=== PATIENT | male | born 1960 | race Caucasian/White ===

== ENCOUNTER 2017-04-09 18:08 | Inpatient (IN) | payer BC ==
[~2017-04-09] VITALS: Ht 180.3 cm; Wt 156.2 kg
[~2017-04-09 18:08] MED LIST: ATORVASTATIN CA80 MG PO; BISAC-EVAC10 MG PR; CARVEDILOL12.5 MG PO; CARVEDILOL25 MG PO; COUMADIN5 MG PO; HYDRALAZINE HCL50 MG PO; ISOSORBIDE MONO30 MG PO; LIPITOR10 MG PO; MAG-OXIDE400 MG PO; MAPAP325 MG PO; MILK OF MA400 MG/5 M PO; NYSTOP60 GM TOP; POTASSIUM CHLO20 ME1 PO; SENNA8.6 MG PO; SPIRONOLACTONE25 MG PO; TORSEMIDE10 MG PO; TORSEMIDE20 MG PO; WARFARIN SODIUM10 MG PO; XARELTO10 MG PO
--- OUTSIDE RECORDS SUMMARY | 2017-04-09 19:32 | XMS ---
Demographics + + + | Address | [address] | | | [address] | | | [place] [address] | + + + | Preferred Language | Unknown | + + + | Marital Status | Unknown | + + + | Yarsanism Affiliation | Unknown | + + + | Race | Unknown | + + + | Ethnic Group | Unknown | + + + Author + + + | Author | [facility] | + + + | Organization | [facility] | + + + | Address | [address] | | | [place] [address] | + + + | Phone | | + + + Care Team Providers + + + + | Care Fashion Consultant Selling Name | Role | Phone | + + + + Unavailable | Unavailable | + + + + PROBLEMS +---------+ + + +--------+ + + | Type | Condition | ICD9-CM | [id number] | Onset | Condition | SNOMED | | | | Code | Code | Dates | Status | Code | +---------+ + + +--------+ + + | Problem | Essential | | I10 | | Active | [id number] | | | (primary) | | | | | | | | hypertensi | | | | | | | | on | | | | | | +---------+ + + +--------+ + + | Problem | Paroxysmal | | I48.0 | | Active | 418352241 | | | atrial | | | | | | | | fibrillati | | | | | | | | on | | | | | | +---------+ + + +--------+ + + | Problem | Chronic | | N18.3 | | Active | [id number] | | | kidney | | | | | | | | disease, | | | | | | | | stage 3 | | | | | | +---------+ + + +--------+ + + | Problem | Coronary | | I25.10 | | Active | 33161979 | | | artery | | | | | | | | disease | | | | | | +---------+ + + +--------+ + + | Problem | Umbilical | K42.9 | | | Active | 989895141 | | | hernia | | | | | | +---------+ + + +--------+ + + | Problem | Anemia | | D64.9 | | Active | 723616009 | +---------+ + + +--------+ + + | Problem | Chronic | | I50.22 | | Active | 267248771 | | | systolic | | | | | | | | (congestiv | | | | | | | | e) heart | | | | | | | | failure | | | | | | +---------+ + + +--------+ + + | Problem | Vitamin D | | E55.9 | | Active | 81180260 | | | deficiency | | | | | | | | , | | | | | | | | unspecifie | | | | | | | | d | | | | | | +---------+ + + +--------+ + + | 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 | | | Active | 47445430 | | | l | | | | | | | | hypothyroi | | | | | | | | dism | | | | | | +---------+ + + +--------+ + + | Problem | Metabolic | | E88.81 | | Active | 653563437 | | | syndrome | | | | | | +---------+ + + +--------+ + + | Problem | Hyperlipid | | E78.5 | | Active | 70139563 | | | emia, | | | | | | | | unspecifie | | | | | | | | d | | | | | | +---------+ + + +--------+ + + | Problem | Cor | | I27.81 | | Active | 04268629 | | | pulmonale | | | | | | | | (chronic) | | | | | | +---------+ + + +--------+ + + | Problem | Morbid | Z68.41 | | | Active | 365983913 | | | obesity | | | | | | | | with BMI | | | | | | | | of | | | | | | | | 40.0-44.9, | | | | | | | | adult | | | | | | +---------+ + + +--------+ + + | Problem | Obstructiv | G47.33 | | | Active | 77261918 | | | e sleep | | | | | | | | apnea | | | | | | +---------+ + + +--------+ + + ALLERGIES Unknown Allergies SOCIAL HISTORY No smoking Hx information available PLAN OF CARE VITAL SIGNS MEDICATIONS + + + + + + + +--------+ | Medicati | Instruct | Dosage | Frequenc | Start | End Date | Duration | Status | | on | ions | | y | Date | | | | + + + + + + + +--------+ | Atorvast | Orally | 1 tablet | | | | | Active | | atin | Once a | | | | | | | | Calcium | day in | | | | | | | | 10 mg | the | | | | | | | | | evening | | | | | | | | | with | | | | | | | | | dinner | | | | | | | | | for | | | | | | | | | choleste | | | | | | | | | rol | | | | | | | + + + + + + + +--------+ | Magnesiu | Orally | 1 tablet | | Jun, | | | Active | | m Oxide | Once a | | | 2015 | | | | | 400 MG | day - | | | | | | | | | MAGNESIU | | | | | | | | | M | | | | | | | | | SUPPLEME | | | | | | | | | NT | | | | | | | + + + + + + + +--------+ | Warfarin | Orally | per | | Feb, | | | Active | | Sodium | 10 mg | coumadin | | 2015 | | | | | 10 mg | Sun, | clinic | | | | | | | | Saturday, | | | | | | | | | | | | | | | | | | | | | | | | | | | , | | | | | | | | | Saturday | | | | | | | | | . 15mg | | | | | | | | | Saturday, | | | | | | | | | | | | | | | | | | y, | | | | | | | | | Saturday | | | | | | | + + + + + + + +--------+ | Carvedil | Orally | 2 tab | | | | | Active | | ol 25 MG | Twice a | | | | | | | | | day with | | | | | | | | | for the | | | | | | | | | heart | | | | | | | | | and high | | | | | | | | | blood | | | | | | | | | pressure | | | | | | | + + + + + + + +--------+ | Isosorbi | Orally | 1 tablet | | Mar, | | | Active | | de | Once a | | | 2016 | | | | | Mononitr | day in | | | | | | | | ate ER | the | | | | | | | | 60 MG | Evening | | | | | | | | | for high | | | | | | | | | blood | | | | | | | | | pressure | | | | | | | + + + + + + + +--------+ | Vitamin | Orally | 1 tablet | 24h | | | | Active | | B-12 | Once a | | | | | | | | 1000 MCG | day | | | | | | | + + + + + + + +--------+ | Vitamin | | | | | | | Active | | D3 Super | | | | | | | | | | | | | | | | | | Strength | | | | | | | | | 2000 | | | | | | | | | UNIT | | | | | | | | + + + + + + + +--------+ | Torsemid | Orally | 1 tablet | | | | | Active | | e 20 mg | Once a | | | | | | | | | day in | | | | | | | | | the | | | | | | | | | morning | | | | | | | | | - water | | | | | | | | | pill for | | | | | | | | | heart | | | | | | | | | failure | | | | | | | + + + + + + + +--------+ | Ferrous | Orally | 1 tablet | | Mar, | | | Active | | Sulfate | Once a | | | 2015 | | | | | 324 (65 | day, | | | | | | | | Fe) MG | iron | | | | | | | | | suppleme | | | | | | | | | nt | | | | | | | + + + + + + + +--------+ | Spironol | Orally | 1 tablet | | Aug, | | | Active | | actone | Once a | | | 2016 | | | | | 25 MG | day - | | | | | | | | | HIGH | | | | | | | | | BLOOD | | | | | | | | | PRESSURE | | | | | | | + + + + + + + +--------+ | HydrALAZ | Orally | half a | | Mar, | | | Active | | INE HCl | Three | tablet | | 2015 | | | | | 50 mg | times a | | | | | | | | | day for | | | | | | | | | high | | | | | | | | | blood | | | | | | | | | pressure | | | | | | | | | s | | | | | | | + + + + + + + +--------+ RESULTS No Results PROCEDURES No Known procedures IMMUNIZATIONS No Known Immunizations"
--- OUTSIDE RECORDS SUMMARY | 2017-04-09 19:33 | XMS ---
Demographics + + + | Address | [address] | | | [address] | | | [place] [address] | + + + | Preferred Language | Unknown | + + + | Marital Status | Unknown | + + + | Rastafari Affiliation | Unknown | + + + | Race | Unknown | + + + | Ethnic Group | Unknown | + + + Author + + + | Author | [facility] | + + + | Organization | [facility] | + + + | Address | [address] | | | [place] [address] | + + + | Phone | | + + + Care Team Providers + + + + | Care Lace Roller Name | Role | Phone | + + + + Unavailable | Unavailable | + + + + PROBLEMS +---------+ + + +--------+ + + | Type | Condition | ICD9-CM | [id number] | Onset | Condition | SNOMED | | | | Code | Code | Dates | Status | Code | +---------+ + + +--------+ + + | Problem | Essential | | I10 | | Active | 11903725 | | | (primary) | | | | | | | | hypertensi | | | | | | | | on | | | | | | +---------+ + + +--------+ + + | Problem | Paroxysmal | | I48.0 | | Active | 726654243 | | | atrial | | | | | | | | fibrillati | | | | | | | | on | | | | | | +---------+ + + +--------+ + + | Problem | Chronic | | N18.3 | | Active | 749167697 | | | kidney | | | | | | | | disease, | | | | | | | | stage 3 | | | | | | +---------+ + + +--------+ + + | Problem | Coronary | | I25.10 | | Active | 72195279 | | | artery | | | | | | | | disease | | | | | | +---------+ + + +--------+ + + | Problem | Umbilical | K42.9 | | | Active | 141301806 | | | hernia | | | | | | +---------+ + + +--------+ + + | Problem | Anemia | | D64.9 | | Active | 606735556 | +---------+ + + +--------+ + + | Problem | Chronic | | I50.22 | | Active | 668525332 | | | systolic | | | | | | | | (congestiv | | | | | | | | e) heart | | | | | | | | failure | | | | | | +---------+ + + +--------+ + + | Problem | Vitamin D | | E55.9 | | Active | 05083665 | | | deficiency | | | | | | | | , | | | | | | | | unspecifie | | | | | | | | d | | | | | | +---------+ + + +--------+ + + | 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 | | | Active | 44452097 | | | l | | | | | | | | hypothyroi | | | | | | | | dism | | | | | | +---------+ + + +--------+ + + | Problem | Metabolic | | E88.81 | | Active | 321923927 | | | syndrome | | | | | | +---------+ + + +--------+ + + | Problem | Hyperlipid | | E78.5 | | Active | 84067454 | | | emia, | | | | | | | | unspecifie | | | | | | | | d | | | | | | +---------+ + + +--------+ + + | Problem | Cor | | I27.81 | | Active | 18963444 | | | pulmonale | | | | | | | | (chronic) | | | | | | +---------+ + + +--------+ + + | Problem | Morbid | Z68.41 | | | Active | 539220984 | | | obesity | | | [...] | G47.33 | | | Active | 61580264 | | | e sleep | | | | | | | | apnea | | | | | | +---------+ + + +--------+ + + ALLERGIES + + + + +---------+ | Substance | Reaction | Event Type | Date | Status | + + + + +---------+ | N.K.D.A. | Unknown | Non Drug | Feb, | Unknown | | | | Allergy | | | + + + + +---------+ SOCIAL HISTORY No smoking Hx information available PLAN OF CARE + +---------+ | Activity | Details | + +---------+ +---+ | | +---+ + + + | Follow Up | 2 Weeks Reason:null | + + + VITAL SIGNS + + + + | Height | 71 in | 2017-03-01 | + + + + | Weight | 356.4 lbs | 2017-03-01 | + + + + | BMI | 49.70 kg/m2 | 2017-03-01 | + + + + | Temperature | 98.8 degrees Fahrenheit | 2017-03-01 | + + + + | Heart Rate | 60 /min | 2017-03-01 | + + + + | Blood pressure systolic | 112 mm Hg | 2017-03-01 | + + + + | Blood pressure diastolic | 31 mm Hg | 2017-03-01 | + + + + MEDICATIONS + + + + + + [...] | | | | | | | 80 MG | the | | | | | [...] | Orally | half a | | 24 Aug, | | | Active | | INE HCl | Three | tablet | | 2016 | | | | | 50 mg [...] + + + +--------+ | Isosorbi | | take 1 | | | | 90 | Active | | de | | tablet | | | | | | | Mononitr | | by mouth | | | | | | | ate ER | | every | | | | | | | 60 MG | | morning | | | | | | + + + + + + + +--------+ | Ferrous | Orally | 1 tablet | | 24 Aug, | | | Active | | Sulfate | Once a | | | 2016 | | | | | 324 (65 | day, | | | | | | | | Fe) MG | iron | | | | | | | | | suppleme | | | | | | | | | nt | | | | | | | + + + + + + + +--------+ | Aspirin | Oral | 1 tab | 24h | | | | Active | | 81mg | once | | | | | | | | | daily | | | | | | | [...] + + + +--------+ | Magnesiu | | take 1 | | | | 90 | Active | | m Oxide | | tablet | | | | | | | 400 MG | | by mouth | | | | | | | | | once | | | | | | | | | daily | | | | | | + + + + + + + +--------+ RESULTS No Results PROCEDURES No Known procedures IMMUNIZATIONS No Known Immunizations"
--- OUTSIDE RECORDS SUMMARY | 2017-04-09 19:33 | XMS ---
Demographics + + + | Address | [address] | | | [address] | | | [place] [address] | + + + | Preferred Language | Unknown | + + + | Marital Status | Unknown | + + + | Christianity Affiliation | Unknown | + + + | Race | Unknown | + + + | Ethnic Group | Unknown | + + + Author + + + | Author | [facility] | + + + | Organization | [facility] | + + + | Address | [address] | | | [place] [address] | + + + | Phone | | + + + Care Team Providers + + + + | Care Echocardiographer Name | Role | Phone | + + + + Unavailable | Unavailable | + + + + PROBLEMS + + + + + + + + | Type | Condition | ICD9-CM | [id number] | Onset | Condition | SNOMED | | | | Code | Code | Dates | Status | Code | + + + + + + + + | Problem | Essential | | I10 | | Active | 73267660 | | | (primary) | | | | | | | | hypertensi | | | | | | | | on | | | | | | + + + + + + + + | Problem | Paroxysmal | | I48.0 | | Active | 750817565 | | | atrial | | | | | | | | fibrillati | | | | | | | | on | | | | | | + + + + + + + + | Problem | Chronic | | N18.3 | | Active | 086362981 | | | kidney | | | | | | | | disease, | | | | | | | | stage 3 | | | | | | + + + + + + + + | Problem | Coronary | | I25.10 | | Active | 92182162 | | | artery | | | | | | | | disease | | | | | | + + + + + + + + | Problem | Umbilical | K42.9 | | | Active | 655836621 | | | hernia | | | | | | + + + + + + + + | Problem | Anemia | | D64.9 | | Active | 239886445 | + + + + + + + + | Problem | Chronic | | I50.22 | | Active | 259854179 | | | systolic | | | | | | | | (congestiv | | | | | | | | e) heart | | | | | | | | failure | | | | | | + + + + + + + + | Problem | Vitamin D | | E55.9 | | Active | 59605716 | | | deficiency | | | | | | | | , | | | | | | | | unspecifie | | | | | | | | d | | | | | | + + + + + + + + | 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 | | | Active | 03756923 | | | l | | | | | | | | hypothyroi | | | | | | | | dism | | | | | | + + + + + + + + | Problem | Metabolic | | E88.81 | | Active | 469500485 | | | syndrome | | | | | | + + + + + + + + | Problem | Hyperlipid | | E78.5 | | Active | 19295488 | | | emia, | | | | | | | | unspecifie | | | | | | | | d | | | | | | + + + + + + + + | Assessment | Coronary | | I25.10 | 03 January, | Active | 77056890 | | | artery | | | 2017 | | | | | disease | | | | | | + + + + + + + + | Problem | Cor | | I27.81 | | Active | 70341036 | | | pulmonale | | | | | | | | (chronic) | | | | | | + + + + + + + + | Problem | Morbid | Z68.41 | | | Active | 173501237 | | | obesity | | | | | | | | with BMI | | | | | | | | of | | | | | | | | 40.0-44.9, | | | | | | | | adult | | | | | | + + + + + + + + | Problem | Obstructiv | G47.33 | | | Active | 47085017 | | | e sleep | | | | | | | | apnea | | | | | | + + + + + + + + ALLERGIES + + + + +---------+ | Substance | Reaction | Event Type | Date | Status | + + + + +---------+ | N.K.KathiA. | Unknown | Non Drug | December, | Unknown | | | | Allergy | | | + + + + +---------+ SOCIAL HISTORY No smoking Hx information available PLAN OF CARE VITAL SIGNS + + + + | Height | 71 in | 2017-01-03 | + + + + | Weight | 348.6 lbs | 2017-01-03 | + + + + | BMI | 48.61 kg/m2 | 2017-01-03 | + + + + | Temperature | 98.3 degrees Fahrenheit | 2017-01-03 | + + + + | Heart Rate | 58 /min | 2017-01-03 | + + + + | Blood pressure systolic | 139 mm Hg | 2017-01-03 | + + + + | Blood pressure diastolic | 59 mm Hg | 2017-01-03 | + + + + MEDICATIONS + [...] | | | | | | and | | | | | | | [...] de | Once a | | | 2015 | | | | | Mononitr | [...] Orally | 1 tablet | | 24 Mar, | | | Active | | [...] | Orally | 1 tablet | | 08 Aug, | | | Active | | [...] + + +--------+ RESULTS No Results PROCEDURES + + + + + | Procedure | Date Ordered | Related Diagnosis | Body Site | + + + + + | Est Level III | January 03, 2017 | | | | Intermediate | | | | + + + + + IMMUNIZATIONS No Known Immunizations"
--- OUTSIDE RECORDS SUMMARY | 2017-04-09 19:33 | XMS ---
Demographics + + + | Address | [address] | | | [address] | | | [place] [address] | + + + | Preferred Language | Unknown | + + + | Marital Status | Unknown | + + + | Tenriism Affiliation | Unknown | + + + | Race | Unknown | + + + | Ethnic Group | Unknown | + + + Author + + + | Author | [facility] | + + + | Organization | [facility] | + + + | Address | [address] | | | [place] [address] | + + + | Phone | | + + + Care Team Providers + + + + | Care Manufacturing Leader Name | Role | Phone | + + + + Unavailable | Unavailable | + + + + PROBLEMS + + + + + + + + | Type | Condition | ICD9-CM | [id number] | Onset | Condition | SNOMED | | | | Code | Code | Dates | Status | Code | + + + + + + + + | Problem | Obstructiv | G47.33 | | | Active | 53302695 | | | e sleep | | | | | | | | apnea | | | | | | + + + + + + + + | Problem | Chronic | | N18.3 | | Active | 598888620 | | | kidney | | | | | | | | disease, | | | | | | | | stage 3 | | | | | | + + + + + + + + | Problem | Essential | | I10 | | Active | 43867881 | | | (primary) | | | | | | | | hypertensi | | | | | | | | on | | | | | | + + + + + + + + | Problem | Umbilical | K42.9 | | | Active | 328956034 | | | hernia | | | | | | + + + + + + + + | Problem | Vitamin D | | E55.9 | | Active | 12023144 | | | deficiency | | | | | | | | , | | | | | | | | unspecifie | | | | | | | | d | | | | | | + + + + + + + + | Problem | Chronic | | I50.22 | | Active | 186506542 | | | systolic | | | | | | | | (congestiv | | | | | | | | e) heart | | | | | | | | failure | | | | | | + + + + + + + + | Problem | Paroxysmal | | I48.0 | | Active | 090485518 | | | atrial | | | | | | | | fibrillati | | | | | | | | on | | | | | | + + + + + + + + | 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 | | | Active | 34252277 | | | l | | | | | | | | hypothyroi | | | | | | | | dism | | | | | | + + + + + + + + | Problem | Anemia | | D64.9 | | Active | 607051660 | + + + + + + + + | Problem | Morbid | Z68.41 | | | Active | 952924065 | | | obesity | | | [...] | | E88.81 | | Active | 568321081 | | | syndrome | | | | | | + + + + + + + + | Problem | Hyperlipid | | E78.5 | | Active | 90324751 | | | emia, | | | | | | | | unspecifie | | | | | | | | d | | | | | | + + + + + + + + | Assessment | Essential | | I10 | 04 December, | Active | 42542736 | | | (primary) | | | 2017 | | | | | hypertensi | | | | | | | | on | | | | | | + + + + + + + + | Problem | Cor | | I27.81 | | Active | 49781681 | | | pulmonale | | | | | | | | (chronic) | | | | | | + + + + + + + + ALLERGIES + + + + +---------+ | Substance | Reaction | Event Type | Date | Status | + + + + +---------+ | Chelsea | Unknown | Non Drug | December, | Unknown | | | | Allergy | | | + + + + +---------+ SOCIAL HISTORY No smoking Hx information available PLAN OF CARE VITAL SIGNS + + + + | Height | 71 in | 2016-12-13 | + + + + | Weight | 347.0 lbs | 2016-12-13 | + + + + | BMI | 48.39 kg/m2 | 2016-12-13 | + + + + | Temperature | 97.8 degrees Fahrenheit | 2016-12-13 | + + + + | Heart Rate | 58 /min | 2016-12-13 | + + + + | Blood pressure systolic | 181 mm Hg | 2016-12-13 | + + + + | Blood pressure diastolic | 81 mm Hg | 2016-12-13 | + + + + MEDICATIONS + [...] | Orally | 1 tablet | | 21 Nov, | | | Active | | m Oxide | Once a | | | 2016 | | | | | 400 MG [...] + +--------+ | Torsemid | Orally | half a | | | | | Active | | e 20 mg | Once a | tablet | | | | | [...] + + | Est Level III | December 13, 2016 | | | | Intermediate | | | | + + + + + IMMUNIZATIONS No Known Immunizations"
--- OUTSIDE RECORDS SUMMARY | 2017-04-09 19:33 | XMS ---
Demographics + + + | Address | [address] | | | [address] | | | [place] [address] | + + + | Preferred Language | Unknown | + + + | Marital Status | Unknown | + + + | Amish Affiliation | Unknown | + + + | Race | Unknown | + + + | Ethnic Group | Unknown | + + + Author + + + | Author | [facility] | + + + | Organization | [facility] | + + + | Address | [address] | | | [place] [address] | + + + | Phone | | + + + Care Team Providers + + + + | Care Aircraft Launch And Recovery Technician Name | Role | Phone | + + + + Unavailable | Unavailable | + + + + PROBLEMS +---------+ + + +--------+ + + | Type | Condition | ICD9-CM | [id number] | Onset | Condition | SNOMED | | | | Code | Code | Dates | Status | Code | +---------+ + + +--------+ + + | Problem | Essential | | I10 | | Active | 30124379 | | | (primary) | | | | | | | | hypertensi | | | | | | | | on | | | | | | +---------+ + + +--------+ + + | Problem | Paroxysmal | | I48.0 | | Active | 906738681 | | | atrial | | | | | | | | fibrillati | | | | | | | | on | | | | | | +---------+ + + +--------+ + + | Problem | Chronic | | N18.3 | | Active | 976904186 | | | kidney | | | | | | | | disease, | | | | | | | | stage 3 | | | | | | +---------+ + + +--------+ + + | Problem | Coronary | | I25.10 | | Active | 24371518 | | | artery | | | | | | | | disease | | | | | | +---------+ + + +--------+ + + | Problem | Umbilical | K42.9 | | | Active | 840651839 | | | hernia | | | | | | +---------+ + + +--------+ + + | Problem | Anemia | | D64.9 | | Active | 940250707 | +---------+ + + +--------+ + + | Problem | Chronic | | I50.22 | | Active | 924839268 | | | systolic | | | | | | | | (congestiv | | | | | | | | e) heart | | | | | | | | failure | | | | | | +---------+ + + +--------+ + + | Problem | Vitamin D | | E55.9 | | Active | 90172022 | | | deficiency | | | | | | | | , | | | | | | | | unspecifie | | | | | | | | d | | | | | | +---------+ + + +--------+ + + | 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 | | | Active | 33811082 | | | l | | | | | | | | hypothyroi | | | | | | | | dism | | | | | | +---------+ + + +--------+ + + | Problem | Metabolic | | E88.81 | | Active | 049726719 | | | syndrome | | | | | | +---------+ + + +--------+ + + | Problem | Hyperlipid | | E78.5 | | Active | 81754291 | | | emia, | | | | | | | | unspecifie | | | | | | | | d | | | | | | +---------+ + + +--------+ + + | Problem | Cor | | I27.81 | | Active | 15498602 | | | pulmonale | | | | | | | | (chronic) | | | | | | +---------+ + + +--------+ + + | Problem | Morbid | Z68.41 | | | Active | 711312784 | | | obesity | | | [...] | G47.33 | | | Active | 92771748 | | | e sleep | | | | | | | | apnea | | | | | | +---------+ + + +--------+ + + ALLERGIES Unknown Allergies SOCIAL HISTORY No smoking Hx information available PLAN OF CARE VITAL SIGNS MEDICATIONS Unknown Medications RESULTS No Results PROCEDURES No Known procedures IMMUNIZATIONS No Known Immunizations"
--- OUTSIDE RECORDS SUMMARY | 2017-04-09 19:33 | XMS ---
Demographics + + + | Address | [address] | | | [address] | | | [place] [address] | + + + | Preferred Language | Unknown | + + + | Marital Status | Unknown | + + + | Holiness Affiliation | Unknown | + + + | Race | Unknown | + + + | Ethnic Group | Unknown | + + + Author + + + | Author | [facility] | + + + | Organization | [facility] | + + + | Address | [address] | | | [place] [address] | + + + | Phone | | + + + Care Team Providers + + + + | Care Slot Attendant Name | Role | Phone | + + + + Unavailable | Unavailable | + + + + PROBLEMS +---------+ + + +--------+ + + | Type | Condition | ICD9-CM | [id number] | Onset | Condition | SNOMED | | | | Code | Code | Dates | Status | Code | +---------+ + + +--------+ + + | Problem | Essential | | I10 | | Active | 20262575 | | | (primary) | | | | | | | | hypertensi | | | | | | | | on | | | | | | +---------+ + + +--------+ + + | Problem | Paroxysmal | | I48.0 | | Active | [id number] | | | atrial | | | | | | | | fibrillati | | | | | | | | on | | | | | | +---------+ + + +--------+ + + | Problem | Chronic | | N18.3 | | Active | [id number] | | | kidney | | | | | | | | disease, | | | | | | | | stage 3 | | | | | | +---------+ + + +--------+ + + | Problem | Coronary | | I25.10 | | Active | [id number] | | | artery | | | | | | | | disease | | | | | | +---------+ + + +--------+ + + | Problem | Umbilical | K42.9 | | | Active | [id number] | | | hernia | | | | | | +---------+ + + +--------+ + + | Problem | Anemia | | D64.9 | | Active | [id number] | +---------+ + + +--------+ + + | Problem | Chronic | | I50.22 | | Active | [id number] | | | systolic | | | | | | | | (congestiv | | | | | | | | e) heart | | | | | | | | failure | | | | | | +---------+ + + +--------+ + + | Problem | Vitamin D | | E55.9 | | Active | [id number] | | | deficiency | | | | | | | | , | | | | | | | | unspecifie | | | | | | | | d | | | | | | +---------+ + + +--------+ + + | 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 | | | Active | [id number] | | | l | | | | | | | | hypothyroi | | | | | | | | dism | | | | | | +---------+ + + +--------+ + + | Problem | Metabolic | | E88.81 | | Active | [id number] | | | syndrome | | | | | | +---------+ + + +--------+ + + | Problem | Hyperlipid | | E78.5 | | Active | [id number] | | | emia, | | | | | | | | unspecifie | | | | | | | | d | | | | | | +---------+ + + +--------+ + + | Problem | Cor | | I27.81 | | Active | [id number] | | | pulmonale | | | | | | | | (chronic) | | | | | | +---------+ + + +--------+ + + | Problem | Morbid | Z68.41 | | | Active | [id number] | | | obesity | | | [...] | G47.33 | | | Active | [id number] | | | e sleep | | [...]
--- OUTSIDE RECORDS SUMMARY | 2017-04-09 19:33 | XMS ---
Demographics + + + | Address | [address] | | | [address] | | | [place] [address] | + + + | Preferred Language | Unknown | + + + | Marital Status | Unknown | + + + | Samaritan Affiliation | Unknown | + + + | Race | Unknown | + + + | Ethnic Group | Unknown | + + + Author + + + | Author | [facility] | + + + | Organization | [facility] | + + + | Address | [address] | | | [place] [address] | + + + | Phone | | + + + Care Team Providers + + + + | Care Recharger Name | Role | Phone | + + + + Unavailable | Unavailable | + + + + PROBLEMS +---------+ + + +--------+ + + | Type | Condition | ICD9-CM | [id number] | Onset | Condition | SNOMED | | | | Code | Code | Dates | Status | Code | +---------+ + + +--------+ + + | Problem | Essential | | I10 | | Active | [id number] | | | (primary) | | | | | | | | hypertensi | | | | | | | | on | | | | | | +---------+ + + +--------+ + + | Problem | Paroxysmal | | I48.0 | | Active | 928659263 | | | atrial | | | | | | | | fibrillati | | | | | | | | on | | | | | | +---------+ + + +--------+ + + | Problem | Chronic | | N18.3 | | Active | 800418339 | | | kidney | | | | | | | | disease, | | | | | | | | stage 3 | | | | | | +---------+ + + +--------+ + + | Problem | Coronary | | I25.10 | | Active | 65486055 | | | artery | | | | | | | | disease | | | | | | +---------+ + + +--------+ + + | Problem | Umbilical | K42.9 | | | Active | 728273184 | | | hernia | | | | | | +---------+ + + +--------+ + + | Problem | Anemia | | D64.9 | | Active | 846228228 | +---------+ + + +--------+ + + | Problem | Chronic | | I50.22 | | Active | 910101106 | | | systolic | | | | | | | | (congestiv | | | | | | | | e) heart | | | | | | | | failure | | | | | | +---------+ + + +--------+ + + | Problem | Vitamin D | | E55.9 | | Active | 85063019 | | | deficiency | | | | | | | | , | | | | | | | | unspecifie | | | | | | | | d | | | | | | +---------+ + + +--------+ + + | 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 | | | Active | 28322786 | | | l | | | | | | | | hypothyroi | | | | | | | | dism | | | | | | +---------+ + + +--------+ + + | Problem | Metabolic | | E88.81 | | Active | 857720881 | | | syndrome | | | | | | +---------+ + + +--------+ + + | Problem | Hyperlipid | | E78.5 | | Active | 56052569 | | | emia, | | | | | | | | unspecifie | | | | | | | | d | | | | | | +---------+ + + +--------+ + + | Problem | Cor | | I27.81 | | Active | 14484560 | | | pulmonale | | | | | | | | (chronic) | | | | | | +---------+ + + +--------+ + + | Problem | Morbid | Z68.41 | | | Active | 113104350 | | | obesity | | | [...] | G47.33 | | | Active | 92227765 | | | e sleep | | | | | | | | apnea | | | | | | +---------+ + + +--------+ + + ALLERGIES Unknown Allergies SOCIAL HISTORY No smoking Hx information available PLAN OF CARE VITAL SIGNS MEDICATIONS Unknown Medications RESULTS No Results PROCEDURES No Known procedures IMMUNIZATIONS No Known Immunizations"
--- OUTSIDE RECORDS SUMMARY | 2017-04-09 19:33 | XMS ---
Demographics + + + | Address | [address] | | | [address] | | | [place] [address] | + + + | Preferred Language | Unknown | + + + | Marital Status | Unknown | + + + | Yazidism Affiliation | Unknown | + + + | Race | Unknown | + + + | Ethnic Group | Unknown | + + + Author + + + | Author | [facility] | + + + | Organization | [facility] | + + + | Address | [address] | | | [place] [address] | + + + | Phone | | + + + Care Team Providers + + + + | Care Hot Mill Roller Name | Role | Phone | + + + + Unavailable | Unavailable | + + + + PROBLEMS +---------+ + + +--------+ + + | Type | Condition | ICD9-CM | [id number] | Onset | Condition | SNOMED | | | | Code | Code | Dates | Status | Code | +---------+ + + +--------+ + + | Problem | Essential | | I10 | | Active | 69942365 | | | (primary) | | | | | | | | hypertensi | | | | | | | | on | | | | | | +---------+ + + +--------+ + + | Problem | Paroxysmal | | I48.0 | | Active | 749313188 | | | atrial | | | | | | | | fibrillati | | | | | | | | on | | | | | | +---------+ + + +--------+ + + | Problem | Chronic | | N18.3 | | Active | 654092134 | | | kidney | | | | | | | | disease, | | | | | | | | stage 3 | | | | | | +---------+ + + +--------+ + + | Problem | Coronary | | I25.10 | | Active | 11878159 | | | artery | | | | | | | | disease | | | | | | +---------+ + + +--------+ + + | Problem | Umbilical | K42.9 | | | Active | 522308065 | | | hernia | | | | | | +---------+ + + +--------+ + + | Problem | Anemia | | D64.9 | | Active | 609882745 | +---------+ + + +--------+ + + | Problem | Chronic | | I50.22 | | Active | 201637305 | | | systolic | | | | | | | | (congestiv | | | | | | | | e) heart | | | | | | | | failure | | | | | | +---------+ + + +--------+ + + | Problem | Vitamin D | | E55.9 | | Active | 29985564 | | | deficiency | | | | | | | | , | | | | | | | | unspecifie | | | | | | | | d | | | | | | +---------+ + + +--------+ + + | 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 | | | Active | 33300682 | | | l | | | | | | | | hypothyroi | | | | | | | | dism | | | | | | +---------+ + + +--------+ + + | Problem | Metabolic | | E88.81 | | Active | 946394205 | | | syndrome | | | | | | +---------+ + + +--------+ + + | Problem | Hyperlipid | | E78.5 | | Active | 16904438 | | | emia, | | | | | | | | unspecifie | | | | | | | | d | | | | | | +---------+ + + +--------+ + + | Problem | Cor | | I27.81 | | Active | 43395744 | | | pulmonale | | | | | | | | (chronic) | | | | | | +---------+ + + +--------+ + + | Problem | Morbid | Z68.41 | | | Active | 138840887 | | | obesity | | | [...] | G47.33 | | | Active | 66588493 | | | e sleep | | | | | | | | apnea | | | | | | +---------+ + + +--------+ + + ALLERGIES Unknown Allergies SOCIAL HISTORY No smoking Hx information available PLAN OF CARE VITAL SIGNS MEDICATIONS Unknown Medications RESULTS No Results PROCEDURES No Known procedures IMMUNIZATIONS No Known Immunizations"
--- OUTSIDE RECORDS SUMMARY | 2017-04-09 19:33 | XMS ---
Demographics + + + | Address | [address] | | | [address] | | | [place] [address] | + + + | Preferred Language | Unknown | + + + | Marital Status | Unknown | + + + | Protestant Affiliation | Unknown | + + + | Race | Unknown | + + + | Ethnic Group | Unknown | + + + Author + + + | Author | [facility] | + + + | Organization | [facility] | + + + | Address | [address] | | | [place] [address] | + + + | Phone | | + + + Care Team Providers + + + + | Care Automotive Internet Sales Consultant Name | Role | Phone | + + + + Unavailable | Unavailable | + + + + PROBLEMS +---------+ + + +--------+ + + | Type | Condition | ICD9-CM | [id number] | Onset | Condition | SNOMED | | | | Code | Code | Dates | Status | Code | +---------+ + + +--------+ + + | Problem | Essential | | I10 | | Active | 78050586 | | | (primary) | | | | | | | | hypertensi | | | | | | | | on | | | | | | +---------+ + + +--------+ + + | Problem | Paroxysmal | | I48.0 | | Active | 994316506 | | | atrial | | | | | | | | fibrillati | | | | | | | | on | | | | | | +---------+ + + +--------+ + + | Problem | Chronic | | N18.3 | | Active | 420253050 | | | kidney | | | | | | | | disease, | | | | | | | | stage 3 | | | | | | +---------+ + + +--------+ + + | Problem | Coronary | | I25.10 | | Active | 42380626 | | | artery | | | | | | | | disease | | | | | | +---------+ + + +--------+ + + | Problem | Umbilical | K42.9 | | | Active | 128030076 | | | hernia | | | | | | +---------+ + + +--------+ + + | Problem | Anemia | | D64.9 | | Active | 545111772 | +---------+ + + +--------+ + + | Problem | Chronic | | I50.22 | | Active | 256433446 | | | systolic | | | | | | | | (congestiv | | | | | | | | e) heart | | | | | | | | failure | | | | | | +---------+ + + +--------+ + + | Problem | Vitamin D | | E55.9 | | Active | 09127089 | | | deficiency | | | | | | | | , | | | | | | | | unspecifie | | | | | | | | d | | | | | | +---------+ + + +--------+ + + | 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 | | | Active | 52000130 | | | l | | | | | | | | hypothyroi | | | | | | | | dism | | | | | | +---------+ + + +--------+ + + | Problem | Metabolic | | E88.81 | | Active | 219146158 | | | syndrome | | | | | | +---------+ + + +--------+ + + | Problem | Hyperlipid | | E78.5 | | Active | 38949474 | | | emia, | | | | | | | | unspecifie | | | | | | | | d | | | | | | +---------+ + + +--------+ + + | Problem | Cor | | I27.81 | | Active | 25582865 | | | pulmonale | | | | | | | | (chronic) | | | | | | +---------+ + + +--------+ + + | Problem | Morbid | Z68.41 | | | Active | 206195306 | | | obesity | | | [...] | G47.33 | | | Active | 87732508 | | | e sleep | | [...] + + | Follow Up | 2 Months Reason:null | + + + VITAL SIGNS + + + + | Height | 71 in | 2017-02-28 | + + + + | Weight | 358.0 lbs | 2017-02-28 | + + + + | BMI | 49.93 kg/m2 | 2017-02-28 | + + + + | Temperature | 98.5 degrees Fahrenheit | 2017-02-28 | + + + + | Heart Rate | 58 /min | 2017-02-28 | + + + + | Blood pressure systolic | 152 mm Hg | 2017-02-28 | + + + + | Blood pressure diastolic | 78 mm Hg | 2017-02-28 | + + + + MEDICATIONS + [...] Orally | half a | | 24 Mar, | | | [...] + + + + + +--------+ RESULTS + +--------+ + + | Name | Result | Date | Reference Range | + +--------+ + + | TSH+Free T4 | | 2017-02-28 | | + +--------+ + + | TSH | | | | + +--------+ + + | T4,Free(Direct) | | | | + +--------+ + + | Peripheral Blood | | 2017-02-28 | | | Smear Analysis by | | | | | Pathologist | | | | + +--------+ + + PROCEDURES + + + + + | Procedure | Date Ordered | Related Diagnosis | Body Site | + + + + + | Est Level IV | February 28, 2017 | | | | Extended | | | | + + + + + IMMUNIZATIONS No Known Immunizations"
--- OUTSIDE RECORDS SUMMARY | 2017-04-09 19:33 | XMS ---
Demographics + + + | Address | [address] | | | [address] | | | [place] [address] | + + + | Preferred Language | Unknown | + + + | Marital Status | Unknown | + + + | Scientologist Affiliation | Unknown | + + + | Race | Unknown | + + + | Ethnic Group | Unknown | + + + Author + + + | Author | [facility] | + + + | Organization | [facility] | + + + | Address | [address] | | | [place] [address] | + + + | Phone | | + + + Care Team Providers + + + + | Care Multi Spindle Operator Name | Role | Phone | + + + + Unavailable | Unavailable | + + + + PROBLEMS +---------+ + + +--------+ + + | Type | Condition | ICD9-CM | [id number] | Onset | Condition | SNOMED | | | | Code | Code | Dates | Status | Code | +---------+ + + +--------+ + + | Problem | Essential | | I10 | | Active | 81034019 | | | (primary) | | | | | | | | hypertensi | | | | | | | | on | | | | | | +---------+ + + +--------+ + + | Problem | Paroxysmal | | I48.0 | | Active | 637920341 | | | atrial | | | | | | | | fibrillati | | | | | | | | on | | | | | | +---------+ + + +--------+ + + | Problem | Chronic | | N18.3 | | Active | 200339989 | | | kidney | | | | | | | | disease, | | | | | | | | stage 3 | | | | | | +---------+ + + +--------+ + + | Problem | Coronary | | I25.10 | | Active | 03926625 | | | artery | | | | | | | | disease | | | | | | +---------+ + + +--------+ + + | Problem | Umbilical | K42.9 | | | Active | 572347965 | | | hernia | | | | | | +---------+ + + +--------+ + + | Problem | Anemia | | D64.9 | | Active | 611986771 | +---------+ + + +--------+ + + | Problem | Chronic | | I50.22 | | Active | 408356856 | | | systolic | | | | | | | | (congestiv | | | | | | | | e) heart | | | | | | | | failure | | | | | | +---------+ + + +--------+ + + | Problem | Vitamin D | | E55.9 | | Active | 21549048 | | | deficiency | | | | | | | | , | | | | | | | | unspecifie | | | | | | | | d | | | | | | +---------+ + + +--------+ + + | 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 | | | Active | 18244697 | | | l | | | | | | | | hypothyroi | | | | | | | | dism | | | | | | +---------+ + + +--------+ + + | Problem | Metabolic | | E88.81 | | Active | 099401483 | | | syndrome | | | | | | +---------+ + + +--------+ + + | Problem | Hyperlipid | | E78.5 | | Active | 99804607 | | | emia, | | | | | | | | unspecifie | | | | | | | | d | | | | | | +---------+ + + +--------+ + + | Problem | Cor | | I27.81 | | Active | 95277413 | | | pulmonale | | | | | | | | (chronic) | | | | | | +---------+ + + +--------+ + + | Problem | Morbid | Z68.41 | | | Active | 023454693 | | | obesity | | | [...] | G47.33 | | | Active | 41095647 | | | e sleep | | | | | | | | apnea | | | | | | +---------+ + + +--------+ + + ALLERGIES + + + + +---------+ | Substance | Reaction | Event Type | Date | Status | + + + + +---------+ | N.K.D.A. | Unknown | Non Drug | Mar, | Unknown | | | | Allergy | | | + + + + +---------+ SOCIAL HISTORY No smoking Hx information available PLAN OF CARE + +---------+ | Activity | Details | + +---------+ +---+ | | +---+ + + + | Follow Up | prn Reason:null | + + + VITAL SIGNS + + + + | Height | 71 in | 2017-03-12 | + + + + | Weight | 361.8 lbs | 2017-03-12 | + + + + | BMI | 50.46 kg/m2 | 2017-03-12 | + + + + | Temperature | 98.7 degrees Fahrenheit | 2017-03-12 | + + + + | Heart Rate | 53 /min | 2017-03-12 | + + + + | Blood pressure systolic | 160 mm Hg | 2017-03-12 | + + + + | Blood pressure diastolic | 76 mm Hg | 2017-03-12 | + + + + MEDICATIONS + [...] + + | Est Level III | Mar 12, 2017 | | | | Intermediate | | | | + + + + + | DSCHRG MED/CURRENT | Mar 12, 2017 | | | | MED MERGE | | | | + + + + + | DOC MEDS VERIFIED | Mar 12, 2017 | | | | W/PT OR RE | | | | + + + + + IMMUNIZATIONS No Known Immunizations"
--- OUTSIDE RECORDS SUMMARY | 2017-04-09 19:33 | XMS ---
Demographics + + + | Address | [address] | | | [address] | | | [place] [address] | + + + | Preferred Language | Unknown | + + + | Marital Status | Unknown | + + + | Restorationist Affiliation | Unknown | + + + | Race | Unknown | + + + | Ethnic Group | Unknown | + + + Author + + + | Author | [facility] | + + + | Organization | [facility] | + + + | Address | [address] | | | [place] [address] | + + + | Phone | | + + + Care Team Providers + + + + | Care Furnace Operator Oil Or Gas Name | Role | Phone | + + + + Unavailable | Unavailable | + + + + PROBLEMS +---------+ + + +--------+ + + | Type | Condition | ICD9-CM | [id number] | Onset | Condition | SNOMED | | | | Code | Code | Dates | Status | Code | +---------+ + + +--------+ + + | Problem | Essential | | I10 | | Active | 36526894 | | | (primary) | | | | | | | | hypertensi | | | | | | | | on | | | | | | +---------+ + + +--------+ + + | Problem | Paroxysmal | | I48.0 | | Active | 326457990 | | | atrial | | | | | | | | fibrillati | | | | | | | | on | | | | | | +---------+ + + +--------+ + + | Problem | Chronic | | N18.3 | | Active | 541190994 | | | kidney | | | | | | | | disease, | | | | | | | | stage 3 | | | | | | +---------+ + + +--------+ + + | Problem | Coronary | | I25.10 | | Active | 88238124 | | | artery | | | | | | | | disease | | | | | | +---------+ + + +--------+ + + | Problem | Umbilical | K42.9 | | | Active | 907498850 | | | hernia | | | | | | +---------+ + + +--------+ + + | Problem | Anemia | | D64.9 | | Active | 532428126 | +---------+ + + +--------+ + + | Problem | Chronic | | I50.22 | | Active | 499015550 | | | systolic | | | | | | | | (congestiv | | | | | | | | e) heart | | | | | | | | failure | | | | | | +---------+ + + +--------+ + + | Problem | Vitamin D | | E55.9 | | Active | 00577807 | | | deficiency | | | | | | | | , | | | | | | | | unspecifie | | | | | | | | d | | | | | | +---------+ + + +--------+ + + | 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 | | | Active | 75143241 | | | l | | | | | | | | hypothyroi | | | | | | | | dism | | | | | | +---------+ + + +--------+ + + | Problem | Metabolic | | E88.81 | | Active | 661396006 | | | syndrome | | | | | | +---------+ + + +--------+ + + | Problem | Hyperlipid | | E78.5 | | Active | 63323288 | | | emia, | | | | | | | | unspecifie | | | | | | | | d | | | | | | +---------+ + + +--------+ + + | Problem | Cor | | I27.81 | | Active | 54898003 | | | pulmonale | | | | | | | | (chronic) | | | | | | +---------+ + + +--------+ + + | Problem | Morbid | Z68.41 | | | Active | 078665124 | | | obesity | | | [...] | G47.33 | | | Active | 51647205 | | | e sleep | | [...] + | Height | 71 in | 2017-03-21 | + + + + | Weight | 365.2 lbs | 2017-03-21 | + + + + | BMI | 50.93 kg/m2 | 2017-03-21 | + + + + | Temperature | 98.2 degrees Fahrenheit | 2017-03-21 | + + + + | Heart Rate | 53 /min | 2017-03-21 | + + + + | Blood pressure systolic | 180 mm Hg | 2017-03-21 | + + + + | Blood pressure diastolic | 74 mm Hg | 2017-03-21 | + + + + MEDICATIONS + [...] + + + + | Est Level II | Mar 21, 2017 | | | | Limited | | | | + + + + + IMMUNIZATIONS No Known Immunizations"
--- OUTSIDE RECORDS SUMMARY | 2017-04-09 19:34 | XMS ---
Demographics + + + | Address | [address] | | | [address] | | | [place] [address] | + + + | Preferred Language | Unknown | + + + | Marital Status | Unknown | + + + | Gnosticist Affiliation | Unknown | + + + | Race | Unknown | + + + | Ethnic Group | Unknown | + + + Author + + + | Author | [facility] | + + + | Organization | [facility] | + + + | Address | [address] | | | [place] [address] | + + + | Phone | | + + + Care Team Providers + + + + | Care Court Commissioner Name | Role | Phone | + + + + Unavailable | Unavailable | + + + + PROBLEMS +---------+ + + +--------+ + + | Type | Condition | ICD9-CM | [id number] | Onset | Condition | SNOMED | | | | Code | Code | Dates | Status | Code | +---------+ + + +--------+ + + | Problem | Essential | | I10 | | Active | 93259519 | | | (primary) | | | | | | | | hypertensi | | | | | | | | on | | | | | | +---------+ + + +--------+ + + | Problem | Paroxysmal | | I48.0 | | Active | 460472095 | | | atrial | | | | | | | | fibrillati | | | | | | | | on | | | | | | +---------+ + + +--------+ + + | Problem | Chronic | | N18.3 | | Active | 684910646 | | | kidney | | | | | | | | disease, | | | | | | | | stage 3 | | | | | | +---------+ + + +--------+ + + | Problem | Coronary | | I25.10 | | Active | 03860888 | | | artery | | | | | | | | disease | | | | | | +---------+ + + +--------+ + + | Problem | Umbilical | K42.9 | | | Active | 449463500 | | | hernia | | | | | | +---------+ + + +--------+ + + | Problem | Anemia | | D64.9 | | Active | 209822766 | +---------+ + + +--------+ + + | Problem | Chronic | | I50.22 | | Active | 707570124 | | | systolic | | | | | | | | (congestiv | | | | | | | | e) heart | | | | | | | | failure | | | | | | +---------+ + + +--------+ + + | Problem | Vitamin D | | E55.9 | | Active | 62549100 | | | deficiency | | | | | | | | , | | | | | | | | unspecifie | | | | | | | | d | | | | | | +---------+ + + +--------+ + + | 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 | | | Active | 76133190 | | | l | | | | | | | | hypothyroi | | | | | | | | dism | | | | | | +---------+ + + +--------+ + + | Problem | Metabolic | | E88.81 | | Active | 522267214 | | | syndrome | | | | | | +---------+ + + +--------+ + + | Problem | Hyperlipid | | E78.5 | | Active | 32675781 | | | emia, | | | | | | | | unspecifie | | | | | | | | d | | | | | | +---------+ + + +--------+ + + | Problem | Cor | | I27.81 | | Active | 27183542 | | | pulmonale | | | | | | | | (chronic) | | | | | | +---------+ + + +--------+ + + | Problem | Morbid | Z68.41 | | | Active | 797925919 | | | obesity | | | [...] | G47.33 | | | Active | 17463845 | | | e sleep | | [...] + + + | Follow Up | as scheduled with PCP Reason:null | + + + | Pending Test | Comprehensive Metabolic Panel | + + + | Pending Test | CBC | + + + VITAL SIGNS + + + + | Height | 71 in | 2017-02-13 | + + + + | Weight | 358.0 lbs | 2017-02-13 | + + + + | BMI | 49.93 kg/m2 | 2017-02-13 | + + + + | Temperature | 99.1 degrees Fahrenheit | 2017-02-13 | + + + + | Heart Rate | 60 /min | 2017-02-13 | + + + + | Blood pressure systolic | 139 mm Hg | 2017-02-13 | + + + + | Blood pressure diastolic | 68 mm Hg | 2017-02-13 | + + + + MEDICATIONS + [...] + + | Est Level III | February 13, 2017 | | | | Intermediate | | | | + + + + + IMMUNIZATIONS No Known Immunizations"
--- OUTSIDE RECORDS SUMMARY | 2017-04-09 19:34 | XMS ---
Demographics + + + | Address | [address] | | | [address] | | | [place] [address] | + + + | Preferred Language | Unknown | + + + | Marital Status | Unknown | + + + | Evangelical Affiliation | Unknown | + + + | Race | Unknown | + + + | Ethnic Group | Unknown | + + + Author + + + | Author | [facility] | + + + | Organization | [facility] | + + + | Address | [address] | | | [place] [address] | + + + | Phone | | + + + Care Team Providers + + + + | Care Storage Worker Name | Role | Phone | + + + + Unavailable | Unavailable | + + + + PROBLEMS +---------+ + + +--------+ + + | Type | Condition | ICD9-CM | [id number] | Onset | Condition | SNOMED | | | | Code | Code | Dates | Status | Code | +---------+ + + +--------+ + + | Problem | Essential | | I10 | | Active | 36997918 | | | (primary) | | | | | | | | hypertensi | | | | | | | | on | | | | | | +---------+ + + +--------+ + + | Problem | Paroxysmal | | I48.0 | | Active | 713710671 | | | atrial | | | | | | | | fibrillati | | | | | | | | on | | | | | | +---------+ + + +--------+ + + | Problem | Chronic | | N18.3 | | Active | 282011819 | | | kidney | | | | | | | | disease, | | | | | | | | stage 3 | | | | | | +---------+ + + +--------+ + + | Problem | Coronary | | I25.10 | | Active | 43252408 | | | artery | | | | | | | | disease | | | | | | +---------+ + + +--------+ + + | Problem | Umbilical | K42.9 | | | Active | 370035864 | | | hernia | | | | | | +---------+ + + +--------+ + + | Problem | Anemia | | D64.9 | | Active | 863292853 | +---------+ + + +--------+ + + | Problem | Chronic | | I50.22 | | Active | 170645361 | | | systolic | | | | | | | | (congestiv | | | | | | | | e) heart | | | | | | | | failure | | | | | | +---------+ + + +--------+ + + | Problem | Vitamin D | | E55.9 | | Active | 70924583 | | | deficiency | | | | | | | | , | | | | | | | | unspecifie | | | | | | | | d | | | | | | +---------+ + + +--------+ + + | 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 | | | Active | 86012383 | | | l | | | | | | | | hypothyroi | | | | | | | | dism | | | | | | +---------+ + + +--------+ + + | Problem | Metabolic | | E88.81 | | Active | 778586565 | | | syndrome | | | | | | +---------+ + + +--------+ + + | Problem | Hyperlipid | | E78.5 | | Active | 94142298 | | | emia, | | | | | | | | unspecifie | | | | | | | | d | | | | | | +---------+ + + +--------+ + + | Problem | Cor | | I27.81 | | Active | 23102469 | | | pulmonale | | | | | | | | (chronic) | | | | | | +---------+ + + +--------+ + + | Problem | Morbid | Z68.41 | | | Active | 779793952 | | | obesity | | | [...] | G47.33 | | | Active | 52161257 | | | e sleep | | | | | | | | apnea | | | | | | +---------+ + + +--------+ + + ALLERGIES Unknown Allergies SOCIAL HISTORY No smoking Hx information available PLAN OF CARE VITAL SIGNS MEDICATIONS Unknown Medications RESULTS No Results PROCEDURES No Known procedures IMMUNIZATIONS No Known Immunizations"
--- OUTSIDE RECORDS SUMMARY | 2017-04-09 19:34 | XMS ---
Demographics + + + | Address | [address] | | | [address] | | | [place] [address] | + + + | Preferred Language | Unknown | + + + | Marital Status | Unknown | + + + | Moravian Affiliation | Unknown | + + + | Race | Unknown | + + + | Ethnic Group | Unknown | + + + Author + + + | Author | [facility] | + + + | Organization | [facility] | + + + | Address | [address] | | | [place] [address] | + + + | Phone | | + + + Care Team Providers + + + + | Care Electric Lineman Name | Role | Phone | + + + + Unavailable | Unavailable | + + + + PROBLEMS +---------+ + + +--------+ + + | Type | Condition | ICD9-CM | [id number] | Onset | Condition | SNOMED | | | | Code | Code | Dates | Status | Code | +---------+ + + +--------+ + + | Problem | Essential | | I10 | | Active | [id number] | | | (primary) | | | | | | | | hypertensi | | | | | | | | on | | | | | | +---------+ + + +--------+ + + | Problem | Paroxysmal | | I48.0 | | Active | 098348758 | | | atrial | | | | | | | | fibrillati | | | | | | | | on | | | | | | +---------+ + + +--------+ + + | Problem | Chronic | | N18.3 | | Active | [id number] | | | kidney | | | | | | | | disease, | | | | | | | | stage 3 | | | | | | +---------+ + + +--------+ + + | Problem | Coronary | | I25.10 | | Active | 91439789 | | | artery | | | | | | | | disease | | | | | | +---------+ + + +--------+ + + | Problem | Umbilical | K42.9 | | | Active | 325250296 | | | hernia | | | | | | +---------+ + + +--------+ + + | Problem | Anemia | | D64.9 | | Active | 487310346 | +---------+ + + +--------+ + + | Problem | Chronic | | I50.22 | | Active | 799527659 | | | systolic | | | | | | | | (congestiv | | | | | | | | e) heart | | | | | | | | failure | | | | | | +---------+ + + +--------+ + + | Problem | Vitamin D | | E55.9 | | Active | 91497769 | | | deficiency | | | | | | | | , | | | | | | | | unspecifie | | | | | | | | d | | | | | | +---------+ + + +--------+ + + | 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 | | | Active | 13529070 | | | l | | | | | | | | hypothyroi | | | | | | | | dism | | | | | | +---------+ + + +--------+ + + | Problem | Metabolic | | E88.81 | | Active | 378652536 | | | syndrome | | | | | | +---------+ + + +--------+ + + | Problem | Hyperlipid | | E78.5 | | Active | 90197097 | | | emia, | | | | | | | | unspecifie | | | | | | | | d | | | | | | +---------+ + + +--------+ + + | Problem | Cor | | I27.81 | | Active | 97358701 | | | pulmonale | | | | | | | | (chronic) | | | | | | +---------+ + + +--------+ + + | Problem | Morbid | Z68.41 | | | Active | 032722453 | | | obesity | | | [...] | G47.33 | | | Active | 05977125 | | | e sleep | | | | | | | | apnea | | | | | | +---------+ + + +--------+ + + ALLERGIES Unknown Allergies SOCIAL HISTORY No smoking Hx information available PLAN OF CARE VITAL SIGNS MEDICATIONS Unknown Medications RESULTS No Results PROCEDURES No Known procedures IMMUNIZATIONS No Known Immunizations"
--- OUTSIDE RECORDS SUMMARY | 2017-04-09 19:34 | XMS ---
Demographics + + + | Address | [address] | | | [address] | | | [place] [address] | + + + | Preferred Language [...] | + + + | Organization | [facility] | + + + | Address | [address] | | | [place] [address] | + + + | Phone | | + + + Care Team Providers + + + + | Care Weight Guesser Name | Role | Phone | + + + + Unavailable | Unavailable | + + + + PROBLEMS +---------+ + + +--------+ + + | Type | Condition | ICD9-CM | [id number] | Onset | Condition | SNOMED | | | | Code | Code | Dates | Status | Code | +---------+ + + +--------+ + + | Problem | Essential | | I10 | | Active | [id number] | | | (primary) | | | | | | | | hypertensi | | | | | | | | on | | | | | | +---------+ + + +--------+ + + | Problem | Paroxysmal | | I48.0 | | Active | 350639968 | | | atrial | | | | | | | | fibrillati | | | | | | | | on | | | | | | +---------+ + + +--------+ + + | Problem | Chronic | | N18.3 | | Active | 157175184 | | | kidney | | | | | | | | disease, | | | | | | | | stage 3 | | | | | | +---------+ + + +--------+ + + | Problem | Coronary | | I25.10 | | Active | 50571776 | | | artery | | | | | | | | disease | | | | | | +---------+ + + +--------+ + + | Problem | Umbilical | K42.9 | | | Active | 484939893 | | | hernia | | | | | | +---------+ + + +--------+ + + | Problem | Anemia | | D64.9 | | Active | 377767627 | +---------+ + + +--------+ + + | Problem | Chronic | | I50.22 | | Active | 423258141 | | | systolic | | | | | | | | (congestiv | | | | | | | | e) heart | | | | | | | | failure | | | | | | +---------+ + + +--------+ + + | Problem | Vitamin D | | E55.9 | | Active | 97726436 | | | deficiency | | | | | | | | , | | | | | | | | unspecifie | | | | | | | | d | | | | | | +---------+ + + +--------+ + + | 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 | | | Active | 31433142 | | | l | | | | | | | | hypothyroi | | | | | | | | dism | | | | | | +---------+ + + +--------+ + + | Problem | Metabolic | | E88.81 | | Active | 195209053 | | | syndrome | | | | | | +---------+ + + +--------+ + + | Problem | Hyperlipid | | E78.5 | | Active | 42599503 | | | emia, | | | | | | | | unspecifie | | | | | | | | d | | | | | | +---------+ + + +--------+ + + | Problem | Cor | | I27.81 | | Active | 03591556 | | | pulmonale | | | | | | | | (chronic) | | | | | | +---------+ + + +--------+ + + | Problem | Morbid | Z68.41 | | | Active | 485026009 | | | obesity | | | [...] | G47.33 | | | Active | 20843832 | | | e sleep | | | | | | | | apnea | | | | | | +---------+ + + +--------+ + + ALLERGIES Unknown Allergies SOCIAL HISTORY No smoking Hx information available PLAN OF CARE VITAL SIGNS MEDICATIONS Unknown Medications RESULTS No Results PROCEDURES No Known procedures IMMUNIZATIONS No Known Immunizations"
--- OUTSIDE RECORDS SUMMARY | 2017-04-09 19:34 | XMS ---
Demographics + + + | Address | [address] | | | [address] | | | [place] [address] | + + + | Preferred Language | Unknown | + + + | Marital Status | Unknown | + + + | Anglican Affiliation | Unknown | + + + | Race | Unknown | + + + | Ethnic Group | Unknown | + + + Author + + + | Author | [facility] | + + + | Organization | [facility] | + + + | Address | [address] | | | [place] [address] | + + + | Phone | | + + + Care Team Providers + + + + | Care Director Of Neurology Name | Role | Phone | + + + + Unavailable | Unavailable | + + + + PROBLEMS +---------+ + + +--------+ + + | Type | Condition | ICD9-CM | [id number] | Onset | Condition | SNOMED | | | | Code | Code | Dates | Status | Code | +---------+ + + +--------+ + + | Problem | Essential | | I10 | | Active | [id number] | | | (primary) | | | | | | | | hypertensi | | | | | | | | on | | | | | | +---------+ + + +--------+ + + | Problem | Paroxysmal | | I48.0 | | Active | 535219901 | | | atrial | | | | | | | | fibrillati | | | | | | | | on | | | | | | +---------+ + + +--------+ + + | Problem | Chronic | | N18.3 | | Active | 521098598 | | | kidney | | | | | | | | disease, | | | | | | | | stage 3 | | | | | | +---------+ + + +--------+ + + | Problem | Coronary | | I25.10 | | Active | 08937046 | | | artery | | | | | | | | disease | | | | | | +---------+ + + +--------+ + + | Problem | Umbilical | K42.9 | | | Active | 434259954 | | | hernia | | | | | | +---------+ + + +--------+ + + | Problem | Anemia | | D64.9 | | Active | 649964650 | +---------+ + + +--------+ + + | Problem | Chronic | | I50.22 | | Active | 762233883 | | | systolic | | | | | | | | (congestiv | | | | | | | | e) heart | | | | | | | | failure | | | | | | +---------+ + + +--------+ + + | Problem | Vitamin D | | E55.9 | | Active | 94595111 | | | deficiency | | | | | | | | , | | | | | | | | unspecifie | | | | | | | | d | | | | | | +---------+ + + +--------+ + + | 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 | | | Active | 64229307 | | | l | | | | | | | | hypothyroi | | | | | | | | dism | | | | | | +---------+ + + +--------+ + + | Problem | Metabolic | | E88.81 | | Active | 537243198 | | | syndrome | | | | | | +---------+ + + +--------+ + + | Problem | Hyperlipid | | E78.5 | | Active | 54913144 | | | emia, | | | | | | | | unspecifie | | | | | | | | d | | | | | | +---------+ + + +--------+ + + | Problem | Cor | | I27.81 | | Active | 52371565 | | | pulmonale | | | | | | | | (chronic) | | | | | | +---------+ + + +--------+ + + | Problem | Morbid | Z68.41 | | | Active | 682989956 | | | obesity | | | [...] | G47.33 | | | Active | 92416533 | | | e sleep | | | | | | | | apnea | | | | | | +---------+ + + +--------+ + + ALLERGIES + + + + +---------+ | Substance | Reaction | Event Type | Date | Status | + + + + +---------+ | N.K.D.A. | Unknown | Non Drug | 14 Jan, 2017 | Unknown | | | | Allergy | | | + + + + +---------+ SOCIAL HISTORY No smoking Hx information available PLAN OF CARE + +---------+ | Activity | Details | + +---------+ +---+ | | +---+ + + + | Follow Up | 6 Weeks Reason:null | + + + VITAL SIGNS + + + + | Height | 71 in | 2017-01-23 | + + + + | Weight | 355.4 lbs | 2017-01-23 | + + + + | BMI | 49 kg/m2 | 2017-01-23 | + + + + | Temperature | 98.4 degrees Fahrenheit | 2017-01-23 | + + + + | Heart Rate | 61 /min | 2017-01-23 | + + + + | Blood pressure systolic | 127 mm Hg | 2017-01-23 | + + + + | Blood pressure diastolic | 50 mm Hg | 2017-01-23 | + + + + MEDICATIONS + [...] Orally | 1 tablet | | 21 Jun, | | | Active | | [...] actone | Once a | | | 2017 | | | | | 25 MG [...] + | Est Level III | January 23, 2017 | | | | Intermediate | | | | + + + + + | [facility] MED/CURRENT | January 23, 2017 | | | | MED MERGE | | | | + + + + + IMMUNIZATIONS No Known Immunizations"
--- OUTSIDE RECORDS SUMMARY | 2017-04-09 19:34 | XMS ---
Demographics + + + | Address | [address] | | | [address] | | | [place] [address] | + + + | Preferred Language | Unknown | + + + | Marital Status | Unknown | + + + | Judaism Affiliation | Unknown | + + + | Race | Unknown | + + + | Ethnic Group | Unknown | + + + Author + + + | Author | [facility] | + + + | Organization | [facility] | + + + | Address | [address] | | | [place] [address] | + + + | Phone | | + + + Care Team Providers + + + + | Care Electrician'S Assistant Name | Role | Phone | + + + + Unavailable | Unavailable | + + + + PROBLEMS +---------+ + + +--------+ + + | Type | Condition | ICD9-CM | [id number] | Onset | Condition | SNOMED | | | | Code | Code | Dates | Status | Code | +---------+ + + +--------+ + + | Problem | Essential | | I10 | | Active | [id number] | | | (primary) | | | | | | | | hypertensi | | | | | | | | on | | | | | | +---------+ + + +--------+ + + | Problem | Paroxysmal | | I48.0 | | Active | 215470543 | | | atrial | | | | | | | | fibrillati | | | | | | | | on | | | | | | +---------+ + + +--------+ + + | Problem | Chronic | | N18.3 | | Active | 648600342 | | | kidney | | | | | | | | disease, | | | | | | | | stage 3 | | | | | | +---------+ + + +--------+ + + | Problem | Coronary | | I25.10 | | Active | 84406452 | | | artery | | | | | | | | disease | | | | | | +---------+ + + +--------+ + + | Problem | Umbilical | K42.9 | | | Active | 712036391 | | | hernia | | | | | | +---------+ + + +--------+ + + | Problem | Anemia | | D64.9 | | Active | 125688185 | +---------+ + + +--------+ + + | Problem | Chronic | | I50.22 | | Active | 920464940 | | | systolic | | | | | | | | (congestiv | | | | | | | | e) heart | | | | | | | | failure | | | | | | +---------+ + + +--------+ + + | Problem | Vitamin D | | E55.9 | | Active | 19412961 | | | deficiency | | | | | | | | , | | | | | | | | unspecifie | | | | | | | | d | | | | | | +---------+ + + +--------+ + + | 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 | | | Active | 69685003 | | | l | | | | | | | | hypothyroi | | | | | | | | dism | | | | | | +---------+ + + +--------+ + + | Problem | Metabolic | | E88.81 | | Active | 432789045 | | | syndrome | | | | | | +---------+ + + +--------+ + + | Problem | Hyperlipid | | E78.5 | | Active | 23686643 | | | emia, | | | | | | | | unspecifie | | | | | | | | d | | | | | | +---------+ + + +--------+ + + | Problem | Cor | | I27.81 | | Active | 31667085 | | | pulmonale | | | | | | | | (chronic) | | | | | | +---------+ + + +--------+ + + | Problem | Morbid | Z68.41 | | | Active | 159878288 | | | obesity | | | [...] | G47.33 | | | Active | 05409241 | | | e sleep | | | | | | | | apnea | | | | | | +---------+ + + +--------+ + + ALLERGIES Unknown Allergies SOCIAL HISTORY No smoking Hx information available PLAN OF CARE VITAL SIGNS MEDICATIONS Unknown Medications RESULTS No Results PROCEDURES No Known procedures IMMUNIZATIONS No Known Immunizations"
[2017-04-09] MEDS ORDERED: ASPIR-LOW81 MG PO (19:37)
[2017-04-09] MEDS ORDERED: DEMADEX20 MG PO (19:38)
[2017-04-09] MEDS ORDERED: FERROUS SULFAT325 MG PO (19:40)
[2017-04-09] MEDS ORDERED: VITAMIN D32000 UNIT PO (19:40)
[2017-04-09] MEDS ORDERED: VITAMIN B-121000 MCG PO (19:40)
--- NOTE | 2017-04-09 21:15 | NUR ---
PT ADMITTED TO ROOM 117 FROM ER. HAD SEEN DR. GUTIERREZ TODAY, HIS PCP. PCP REFERRED HIM TO ER DUE TO TEMP. CURRENT TEMP IS 99. PT IS ALERT AND ORINTATED, OBESE. LOWER ABDOMINAL AREA WITH REDDNESS, WARM NO DRAINAGE, UNDER BELLY HAS SMALL OPEN AREAS, SEEN BY THE RN IN ER. PRANAV RN FROM ER, STATED THAT SHE CLEANNED UNDER BELLY, HAS SMALL OPEN AREAS NOTED. PACKED WITH GAUZE TO PREVENT SKIN TO SKIN CONTACT. NO EDEMA NOTED IN LOWER LEGS. PT LUNGS ARE CLEAR. IS A SBA WITH TRANSFERS. STATES HE HAS A CANE IN HIS PICKUP HE USES IF HE HAS TO WALK LONG DIASTANCE. 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 HAS BEEN IN [facility] IN YEARS PAST DUE TO WEAKNESS, SOB, RECEIVED PHYSICAL THERAPY. PT COMPLAINS THAT HE CONTINUES TO BE SOB WITH ACTIVITY. PT WEIGHT IS 344.7
--- NOTE | 2017-04-09 21:52 | NUR ---
RT HERE TO SET UP CPAP MACHINE FOR PT. PT UNABLE TO GET HOME CPAP MACHINE HERE. IV LASIX ADMINISTERED, TEL #7 SET UP. DID NOT DO TREATMENT TO UNDERBELLY WASHHOUSE HAND CLEANED AND APPLIED TREATMENT JUST PRIOR TO ARRIVAL TO FLOOR. PT FLUID RESTRICTIONS, EXPLAINED TO PT THE RESTRICTIONS.
--- NOTE | 2017-04-09 23:03 | NUR ---
PT WITH CPAP ON, RT CONFIRMED CPAP MACHINE WAS FUNCTIONING CORRECTLY PT HAD SOME CONCERNS. MARKED PT ABDOMINAL WITH SURGICAL PEN, OUTLINED
--- NOTE | 2017-04-10 00:36 | NUR ---
PT BACK IN BED. GOT UP USED THE URINAL, NEEDED HELP WITH BLANKETS AND CPAP. OFFERS NO COMPLAINTS.
--- NOTE | 2017-04-10 02:15 | NUR ---
WOKE FOR VITALS. HAS BEEN SLEEPING, CPAP ON. ABDOMINAL REDNESS UNCHANGED.
--- NOTE | 2017-04-10 03:32 | NUR ---
PT AWAKE. REQUESTED JELLO. HAS DRANK 100 CC SINCE ADMISSION. FELT WARM, TEMP 100.5 WILL MEDICATE WITH TYLENOL.
--- NOTE | 2017-04-10 05:31 | NUR ---
PT TEMP 99.4. STATES HE FEELS BETTER THAN WHEN HE WAS IN ER. STATES HE IS BUMMED THAT HE IS IN HERE, AND NOT ABLE TO WORK TODAY.
--- NOTE | 2017-04-10 06:11 | NUR ---
ZAIRA TOOK SHOWER AND DID ORAL CARE. CHANGED LINEN.
--- NOTE | 2017-04-10 06:27 | NUR ---
PT UP TO SHOWER DUE TO SMALL INCONT BM. PT STATES THAT SOMETIMES WHEN HE "BREAKS" WIND, HE LOOSES STOOL. TOLERATED SHOWER WITH SOB. HAS BEEN IN BED SINCE ADMISSION, BATHROOM TO VOIDE MULT TIMES UP TO 0215, DID "PEE LITTLE IN THE SHOWER", UNMEASURED. ABDOMINAL REDDNESS UNCHANGED, BUT PT STATES HE FEELS BETTER NOW COMPARED TO ER VISIT. TEMP HAS FLUCUATED SINCE ADMISSION, AWARE OF HIS FLUID RESTRICTIONS, AND IS TOLERATING WELL, STATES THAT HE DOESN'T USUALLY DRINK LOTS.
--- NOTE | 2017-04-10 07:44 | NUR ---
Vancomycin dosing per pharmacist. Patient's serum creatinine is elevated at 1.56, therefore dosing the vancomycin at 1750mg IV q 12 hrs seems appropriate. Will continue to monitor and make adjustments as needed
--- NOTE | 2017-04-10 08:30 | NUR ---
PT AWAKE IN BED, ALERT AND ORIENTED TO ALL. DENIES PAIN, NAUSEA OR OTHER CONCERNS AT THIS TIME. IV IN EACH ARM SL, FLUSH WELL. PT EATING BREAKFAST, MECHELLE WELL. LOWER ABD UNDER PANNUS HAS MULTIPLE SMALL OPEN WOUNDS, MOSTLY SUPERFICIAL, SCANT AMOUNT OF SEROSANGUINOUS DRAINAGE NOTED. REDNESS TO LOWER BELLY JUST BELOW BELLY BUTTON MARKED WITH SURGICAL MARKER. REDNESS REMAINS WITHIN BOUNDS. CALL LIGHT WITHIN REACH.
--- NOTE | 2017-04-10 09:05 | NUR ---
LEFT FOREARM IV INFILTRATED. IV DC'D. IV IN RIGHT ARM INFUSING WNL.
--- NOTE | 2017-04-10 09:54 | NUR ---
PATIENT AWAKE IN BED. FRESH ICE WATER. CLEANED ROOM. EMPTYED GARBAGE. PATIENT TOOK SHOWER IN THE EARLY AM DUE TO BM. PATIENT HAS CALL LIGHT IN REACH.
--- NOTE | 2017-04-10 10:33 | NUR ---
LOWER ABD WOUND DRESSED PER DR. EBJARANO. CLEANED WITH MICRO KLEANSE. NEOSPORIN APPLIED TO OPEN AREAS, LARGE XEROFORM APPLIED TO ENTIRE AREA, COVERED WITH ABD PADS, PAPER TAPE IN PLACE. PT MECHELLE PROCEDURE WELL. CALL LIGHT WITHIN REACH.
--- NOTE | 2017-04-10 11:50 | HP ---
[facility] [address] [place], [place] [address] Signed DATE OF ADMISSION: 04/09/17 REFERRING PHYSICIAN: From the emergency room at [facility]. PRIMARY CARE PHYSICIAN: Dr. Sarah Carroll. IDENTIFICATION The patient is a 57-year-old male who has been admitted from the emergency room at [facility]. History has been obtained from the patient. REASON FOR ADMISSION: Abdominal wall cellulitis. HISTORY The patient is a 57-year-old male who had previously not sought any medical care until about a year ago when he was admitted to the hospital with acute biventricular congestive heart failure, obstructive sleep apnea, and obesity. He apparently has done well since discharge. He has had no other hospitalizations. He stated for the past day or two, he has not been feeling well with decreased oral intake, his stomach felt bloated and he has had some dysphoria. He has also had some increasing shortness of breath. He has had some feeling of fevers and chills, although he has not actually taken his temperature at home. There has been no muscle pain, no abdominal pain, no diarrhea or constipation. No nausea or vomiting. No chest pain. He was seen at [facility] today where he stated that his INR was noted to be elevated. He was then brought to the urgent care clinic because of the symptoms. In the clinic, he was noted to have significant abdominal wall cellulitis with some open wounds and therefore he is referred to the emergency room. In retrospect, the patient states that he has had these open abdominal wounds on his lower abdomen for the past month or so. 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 He changes his underwear frequently because of soiling from the open anterior abdominal wounds. He says he has been trying to keep these wounds clean. In the emergency room, he was noted to be febrile, but not in septic shock. He received 500 mL bolus of normal saline and was treated with IV Vancomycin and Ceftriaxone. He was subsequently referred for admission. PAST MEDICAL HISTORY Heart failure with reduced ejection fraction with biventricular failure. The patient was noted to have ejection fraction of 40 to 45% on his last hospitalization. He had right ventricular enlargement with moderate left ventricular hypertrophy. He is currently on Carvedilol, Isosorbide, Hydralazine, Torsemide. Electronically Signed By: PETER BEJARANO MD 04/10/17 1150 PATIENT NAME: LILY VALENTIN HISTORY AND PHYSICAL DATE OF : 62 PHYSICIAN: PETER BEJARANO MD REPORT #: [id number] REPORT IS CONFIDENTIAL AND NOT TO BE RELEASED WITHOUT AUTHORIZATION [facility] [address] [place], [place] [address] Signed Chronic respiratory failure with hypoxia and hypercapnia, likely secondary to obstructive sleep apnea and obesity hypoventilation syndrome. Hypertension. Atrial flutter, currently controlled with Carvedilol. Currently on Warfarin for stroke prophylaxis. Obstructive sleep apnea, currently on BiPAP at home. He recently had a sleep study completed yesterday. Morbid obesity with a BMI of 59.9 in an adult. The patient says he was admitted last year to the hospital weighing over 400 pounds. He currently weighs around 300 pounds. He has been exercising, but not losing weight recently. Cor pulmonale. Dyslipidemia with elevated LDL and low HDL. Metabolic syndrome. CURRENT MEDICATIONS Include magnesium oxide 400 mg qd. Warfarin, 10 mg on Saturday, Saturday, , and Saturday and 15 mg on Saturday, Saturday, Saturday. Atorvastatin 80 mg qd. Hydralazine 25 mg t.i.d. Isosorbide Mononitrate ER 60 mg qd. Carvedilol 50 mg b.i.d. Aspirin 81 mg qd. Torsemide 20 mg q.a.m. Vitamin B12 at 1000 mcg qd. Vitamin D3 at 2000 units qd. Ferrous Sulfate 325 mg qd. ALLERGIES: No known drug allergies. SOCIAL HISTORY The patient lives at home, in a mobile home, with his mother. He is not . 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 He states that he still chews tobacco occasionally. He smoked cigars in the past. He denies any alcohol use. He denies any recreational drug use. He states he would like to be a full code in the event of cardiorespiratory arrest. FAMILY HISTORY Significant for diabetes mellitus in mother who is currently living at 86 years of age and father who of lung cancer. REVIEW OF SYSTEMS Electronically Signed By: PETER BEJARANO MD 04/10/17 1150 PATIENT NAME: LILY VALENTIN HISTORY AND PHYSICAL DATE OF : 62 PHYSICIAN: PETER BEJARANO MD REPORT #: [id number] REPORT IS CONFIDENTIAL AND NOT TO BE RELEASED WITHOUT AUTHORIZATION [address] [address] Signed The patient indicates fever and chills. There have been no night sweats. There has been no change in vision. No problems with ear, nose, throat, or mouth. He denies any chest pain. He has had increasing dyspnea. There has been no edema or orthopnea. There has been no cough or sputum production. He denies nausea, vomiting, or diarrhea. Otherwise, a 14 point review of systems is negative except for what has been mentioned in the history of present illness. PHYSICAL EXAMINATION VITAL SIGNS: Temperature was 38.3, pulse 73, respirations 24, blood pressure 134/52, oxygen saturations 94% on room air. GENERAL: He is a morbidly obese male resting comfortably in bed in no acute distress. HEENT: Head is atraumatic. Eyes, pupils equal, round and reactive to light. No scleral icterus. No conjunctival injection. Nose is clear without rhinorrhea. Mouth is moist without oral lesions. There is a high-arched palate noted. NECK: Obese. There was no lymphadenopathy. No nuchal rigidity. No masses. Unable to determine JVD. LUNGS: Clear to auscultation with decreased breath sounds bilaterally. There were no wheezes, rhonchi, or rales. CARDIAC: Distant heart sounds. Regular rate and rhythm. No murmurs or gallops. ABDOMEN: Abdominal wall showed an area of bright erythema extending from below the umbilicus to the right and left lower quadrants into the suprapubic area. There were open oval lesions noted underneath the pannus with purulent discharge. These appear to correspond with the band on his jockey-type underwear. There were positive bowel sounds. Soft, nondistended, nontender. There was no fluctuance noted. There were no abscesses noted. The area of redness was nontender to palpation, but was warm. GENITOURINARY: Deferred. EXTREMITIES: Extremities were warm distally. Capillary refill time was 2 seconds. Pulses were 1+/4 equal and symmetric. There is trace lower extremity edema. There was no calf tenderness. There were no foot lesions noted. NEUROLOGIC: The patient was awake and alert, oriented x3. Strength is 5+/5 equal and symmetric. Sensation was grossly intact. BACK: demonstrates normal curvatures without lesions. There was no sacral edema. No costovertebral angle tenderness. No other lesions. DIAGNOSTIC AND LABORATORY DATA CBC: White blood cell count w as 17.9, hemoglobin 11.2, hematocrit 32.8, platelet count 255,000. Differential, segs 90, lymphs 6, monos 2, eosinophils 2. Prothrombin time was 32.8. INR was 3.0. Activated partial thromboplastin time was 48.6. Electrolytes, sodium 137, potassium 3.9, ch l oride 95, CO2 was 35, BUN 23, creatinine 1.43, anion gap was 10.9, glucose 103, lactic acid 1.3, calcium 10, total bilirubin 0.6, AST of 16, ALT of 14, alkaline phosphatase 63, total protein 6.9, albumin 3.8. Urinalysis shows specific gravity 1.019, pH of 9, protein was positive at 100, RBC's 0, WBC's 0, bacteria 1+, was Electronically Signed By: PETER BEJARANO MD 04/10/17 1150 PATIENT NAME: LILY VALENTIN HISTORY AND PHYSICAL DATE OF : 62 PHYSICIAN: PETER BEJARANO MD REPORT #: [id number] REPORT IS CONFIDENTIAL AND NOT TO BE RELEASED WITHOUT AUTHORIZATION [facility] [address] [place] [address] [place], [place] [address] Signed otherwise normal. Chest x-ray was read as within normal limits. IMPRESSION This is a 57-year-old male with acute cellulitis of his abdominal wall. Differential diagnosis will include Streptococcus, methicillin-sensitive Staphylococcus aureus or MRSA. The patient does not have evidence of sepsis at this time. He does have open wounds and would benefit from wound care. He will be placed on Vancomycin, ceftriaxone, and Diflucan because of the possibility of candidal contamination of this wound underneath his pannus. There does not appear to be evidence of necrotizing fasciitis or Jose's necrosis. The patient will be given Tylenol as needed for pain and fever and he will receive local wound care. He may benefit from seeing a wound care clinic at some time in the future if these wounds do not heal. Chronic heart failure with reduced ejection fraction. The patient has known biventricular heart failure with evidence of both acute systolic and diastolic failure. He will be continued on his current medications, including Hydralazine, Carvedilol and Torsemide. We will increase his Torsemide to 20 mg b.i.d. He will be given 1 dose of IV Furosemide tonight. Chronic respiratory failure with hypoxia and hypercapnia. The patient will be continued on his BiPAP at night and will be given oxygen as needed during the day. Obstructive sleep apnea. The patient will be maintained on his BiPAP at night. Morbid obesity wit h BMI of 50 to 59. The patient will have a dietitian consult for calorie-restricted diet. He will be ambulated and receive physical therapy as needed. Hypertension. The patient will be continued on his home antihypertension medications including Carvedilol and hydralazine. The patient is at high risk. Peter Bejarano MD MM/Aleenal /[id number] Electronically Signed By: PETER BEJARANO MD 04/10/17 1150 PATIENT NAME: LILY VALENTIN HISTORY AND PHYSICAL DATE OF : 62 PHYSICIAN: PETER BEJARANO MD REPORT #: [id number] REPORT IS CONFIDENTIAL AND NOT TO BE RELEASED WITHOUT AUTHORIZATION [address] [address] Signed cc: Sarah Carroll MD Electronically Signed By: PETER BEJARANO MD 04/10/17 1150 PATIENT NAME: LILY VALENTIN HISTORY AND PHYSICAL DATE OF : 62 PHYSICIAN: PETER BEJARANO MD REPORT #: [id number] REPORT IS CONFIDENTIAL AND NOT TO BE RELEASED WITHOUT AUTHORIZATION
--- NOTE | 2017-04-10 12:23 | NUR ---
PT REPORTED LIGHT HEADEDNESS. TOOK VITAL SIGNS, BP 92/46. NOTIFIED DR. BEJARANO, RECIEVED VERBAL ORDER FOR 500ML NS BOLUS, STARTED AT THIS TIME. PT DENIES ANY OTHER CONCERNS. CALL LIGHT WITHIN REACH.
--- NOTE | 2017-04-10 13:37 | NUR ---
Medications reconciled by pharmacist using pharmacy records, patient's prescription bottles, and patient interview. [facility] and presently takes 10mg daily (70mg/wk)
--- NOTE | 2017-04-10 14:10 | NUR ---
IV INFUSUSIONS COMPLETE, PT SL AT THIS TIME. WATCHING TV, DENIES NEEDS OR CONCERNS AT THIS TIME. CALL LIGHT WITHIN REACH.
--- NOTE | 2017-04-10 16:58 | NUR ---
PATIENT RESTING IN BED. TOOK PATEINT TO THE BATHROOM. TOOK BP BECAUSE HE WAS FEELING DIZZY. PATIENT HAS CALL LIGHT IN REACH.
--- NOTE | 2017-04-10 18:50 | NUR ---
PT RESTING IN BED ON BACK, EYES CLOSED, RESP EVEN AND UNLABORED.
--- NOTE | 2017-04-10 19:08 | NUR ---
RECEIVED REPORT FROM DAY SHIFT RN. PATIENT IS RESTING IN BED WITH EYES CLOSED, RR 16. PATIENT IS ON TELE #7, NSR HR 69.
--- NOTE | 2017-04-10 20:31 | NUR ---
PATIENT ASSESMENT COMPLETED. PATIENTS DRESSING CHANGED PER ORDER. PATIENT DENIES ANY PAIN. PATIENTS EVENING MEDICATIONS GIVEN PER ORDER. PATIENT IS ON TELE #7, SR, HR 62. PATIENT LEOBARDO ANY FURTHER NEEDS AT THIS TIME. PATIENT HAS IV ABX INFUSING. CALL LIGHT IN REACH.
--- NOTE | 2017-04-10 21:15 | NUR ---
RT IN THE ROOM TO ASSIST PATIENT WITH PLACING BIPAP. ON PATIENT DENIES ANY NEEDS. CALL LIGHT IN REACH.
--- NOTE | 2017-04-10 23:10 | NUR ---
PATIENTS IV ABX DONE INFUSING. PATIENT IS NOW SL. PATIENT IS WEARING BIPAP. PATIENT DENIES ANY NEEDS. CALL LIGHT IN REACH.
--- NOTE | 2017-04-11 00:10 | NUR ---
CCU CALLED TO INFORM THAT THE PATIENT HAD AN IRREGULAR RHYTHM ON THE TELE. PATIENT IS IN BED RESTING WITH EYES CLOSED WEARING BIPAP. BREATHING IS EVEN AND UNLABORED, RR 16. PATIENT APPERAS TO BE IN NO APPARENT DISTRESS. NOTIFIED MD. NO NEW ORDERS AT THIS TIME. WILL CONTINUE TO MONITOR.
--- NOTE | 2017-04-11 01:09 | NUR ---
PATIENT CALLED AND REQUESTED URINAL TO BE EMPTIED. PATIENT CONTINUES TO WEAR BIPAP. PATIENT DENIES ANY PAIN OR SOB. PATIENT DENIES ANY NEEDS. CALL LIGHT IN REACH. PATIENT IS WEARING BIPAP.
--- NOTE | 2017-04-11 03:08 | NUR ---
PATIENT IS RESTING IN BED WITH EYES CLOSED, PATIENT CONTINUES TO WEAR BIPAP. PATIENTS BREATHING IS EVEN AND UNLABORED. PATIENT IS ON TELE #7, SINUS DIANA, HR 59. CALL LIGHT IN REACH.
--- NOTE | 2017-04-11 05:35 | NUR ---
PATIENTS REQUEST TO HAVE BIPAP TAKEN OFF. PATIENTS VITALS TAKEN AND RECORDED. PATIENT DENIES ANY FURTHER NEEDS AT THIS TIME. CALL LIGHT IN REACH.
--- NOTE | 2017-04-11 05:36 | NUR ---
PATIENT RESTED WELL THROUGHTOUT THE SHIFT. PATIENT WORE BIPAP WHILE ASLEEP. PATIENT IS ON A REG DIET W/1800ML FLUID RESTRICTION AND IS TOLERATING IT WELL. PATIENT DENIES ANY PAIN, NAUSEA, OR SOB. PATIENT IS INDEPENDENT IN THE ROOM. PATIENT IS ON TELE #7. PATIENT IS SL AND IV FLUSHES WELL. PATIENT IS AAOX3 AND USES CALL LIGHT APPROPRIATLEY.
--- NOTE | 2017-04-11 06:30 | NUR ---
PATIENT IS RESTING IN BED WATCHINV TV. PATIENT DENIES ANY NEEDS AT THIS TIME.
--- NOTE | 2017-04-11 09:35 | NUR ---
PATIENT RESTING BACK IN BED, DISCUSSED POC FOR DAY. PATIENT AGREES TO GET UP AND WALK AROUND. PLANS FOR SHOWER AND DRSG CHANGE AFTER VANCO ADMINISTRATION. NO COMPLAINTS OF PAIN AT THIS TIME. FULL BODY ASSESMENT DONE, VS STABLE. CHANGED COREG DOSAGE TO 25MG PO BID PER HOSPITALIST. BP 140/65
--- NOTE | 2017-04-11 10:07 | NUR ---
Patient treated with vancomycin for cellulitis. Abdominal wound culture grew moderate growth Gm(+) cocci 04/11. Vancomycin trough drawn 2 hours early led to trough level of 23.7. After pharmokinetic calculation, trough is equivalent to 18. During morning meeting, trough goal was clarified to 10-15, therefore, vancomycin dose was decreased by pharmacy from 1750mg q 12 hrs to 1500mg q 12 hrs, with expectation of a trough level closer to 15. Trough ordered for 04/13 at 0930. Pharmacy will continue to monitor and make adjustments as needed
--- NOTE | 2017-04-11 13:30 | NUR ---
PATIENT CONTROLLED GLF AMBULATING FROM BATHROOM TO BED, HAD REACHED OUT AND LEANED ON BEDSIDE TABLE WHICH WHEELED FARTHER AWAY FROM PATIENT CAUSING HIM TO LOOSE BALANCE AND STEP BACKWARD PUSHING TONY ARMAND INTO WALL SMASHING ARM BETWEEN PATIENT AND WALL. PATIENT THEN WENT DOWN TO KNEES INDEPENDENT VIDEO PRODUCER ATTEMPTED TO PREVENT PATIENT FROM FALLING COMPLETELY TO GROUND. EMERGENCY CALL LIGHT WAS INITIATED AND 4 PERSON ASSIST PATIENT BACK TO FEET AND INTO BED. VS STABLE. AND DR. BEJARANO TO ROOM. WALKER WAS PROVIDED AND FALL HUDDLE WAS DONE. PROVIDED PATIENT WITH EDUCAITON ON IMPORTANCE OF USING WALKER WHEN UP AMBULATING. PATIENT DENIED ANY DIZZINESS. NO COMPLAINTS OF PAIN AT THIS TIME.
--- NOTE | 2017-04-11 15:30 | NUR ---
WOUND CARE TO PANNUS PROVIDED, NEW DRSG INTACT. PATIENT MOM AT BEDSIDE. ADMINISTERED TYLEONOL PRN FOR RIGHT HIP PAIN. DISCUSSED PATIENT WITH PHYSICAL THERAPY COMMUNICATING CONTROLLED FALL FROM DAYSHIFT. DR. GUTIERREZ AWARE PATIENT IS HAVING RIGHT HIP PAIN. PATIENT APPEARS TO AMBULATE WELL WITH WALKER, NO APPEARANCE OF GRIMACE, LAUGHING AND TALKING ABOUT TELEVISION SHOW.
--- NOTE | 2017-04-11 17:15 | EKG ---
[facility] [address] [facility] [place], [place] [address] Signed Sinus rhythm with 1st degree AV block with premature supraventricular complexes Left axis deviation Nonspecific intraventricular block Left anterior fascicular block Cannot rule out Anterior infarct , age undetermined Abnormal ECG No previous ECGs available Confirmed by KENDALL GUTIERREZ MD ([id number]) on 04/11/2017 5:15:38 PM Electronically Signed By: KENDALL GUTIERREZ MD 04/11/17 1715 PATIENT NAME: LILY VALENTIN Electrocardiogram DATE OF : 62 PHYSICIAN: KENDALL GUTIERREZ MD REPORT #: [id number] REPORT IS CONFIDENTIAL AND NOT TO BE RELEASED WITHOUT AUTHORIZATION
--- NOTE | 2017-04-11 17:17 | EKG ---
[facility] [address] [place] [address] Signed Sinus rhythm with 1st degree AV block Right bundle branch block Left anterior fascicular block Bifascicular block Abnormal ECG When compared with ECG of 10-APR-2017 07:21, (Unconfirmed) premature supraventricular complexes are no longer present Right bundle branch block has replaced Nonspecific intraventricular block Minimal criteria for Anterior infarct are no longer present Confirmed by KENDALL GUTIERREZ MD ([id number]) on 04/11/2017 5:17:25 PM Electronically Signed By: KENDALL GUTIERREZ MD 04/11/17 1717 PATIENT NAME: LILY VALENTIN Electrocardiogram DATE OF : 62 PHYSICIAN: KENDALL GUTIERREZ MD REPORT #: [id number] REPORT IS CONFIDENTIAL AND NOT TO BE RELEASED WITHOUT AUTHORIZATION
--- NOTE | 2017-04-11 18:37 | NUR ---
STAYED IN ROOM IN CASE PATIENT NEEDED ME TO HELP WITH SHOWER.
--- NOTE | 2017-04-11 18:41 | NUR ---
DR. GUTIERREZ ROUNDED TO ROOM, DISCUSSED POC WITH MOM AND PATIENT. ROM TO RIGHT HIP DONE BY DR. GUTIERREZ, PATIENT TOLERATED MOVEMENTS WELL. PLAN TO MANAGE PAIN PAIN AND DISCOMFORT WITH TYLENOL AND ICE.
--- NOTE | 2017-04-11 18:44 | NUR ---
PATIENT HAD CONTROLLED GLF TODAY AMBULATING FROM BATHROOM TO BED. NO APPARENT INJURY OR BRUISING. SOME COMPLAINTS OF PAIN IN RIGHT HIP. DR. GUTIERREZ AWARE. PRN TYLENOL PROVIDED. WOUND CARE TO PANNUS. APPEARS TO BE IMPROVING. AFERBILE THROUGHOUT DAY.
--- NOTE | 2017-04-11 19:28 | NUR ---
RECEIEVED REPORT FROM DAY SHIFT RN. ALEXSANDRA'Dasia TELE PER DR. GUTIERREZ. PATIENT DENIES ANY NEEDS AT THIS TIME. PATIENT EDUCATED ON THE USE OF THE CALL LIGHT ANY TIME HE GETS OUT OF BED. PATIENT VERBALIZES UNDERSTANDING. PATIENT DENIES ANY NEEDS CALL LIGHT IN REACH.
--- NOTE | 2017-04-11 21:49 | NUR ---
PATIENT ASSESMENT COMPLETED. PATIENTS VITALS TAKEN AND RECORDED. PATIENTS EVENING MEDICATIONS GIVEN PER ORDER. PATIENT COMPLAINS OF RIGHT HIP PAIN. PATIENT GIVEN PRN TYELNOL PER ORDER. PATIENT ALSO GIVEN AN ICE PACK FOR RIGHT HIP. PATIENT DENIES ANY FURTHER NEEDS AT THIS TIME. CALL LIGHT IN REACH.
--- NOTE | 2017-04-11 22:54 | NUR ---
PATIENT CALLED AND REQUESTED HIS TEMP TO BE TAKEN. PATIENTS TEMP TAKEN AND RECORDED. TEMP WNL. PATIENT STATED "I AM JUST ANXIOUS AND TIRED OF BEING HERE" REASSURED PATIENT THAT HE IS HERE TO HELP HIM GET BETTER. PATIENT VERBALIZED UNDERSTANDING. PATIENT DENIES ANY FURTHER NEEDS. PATIENT PROVIDED W/LOTION. PATIENTS CALL LIGHT IN REACH.
--- NOTE | 2017-04-11 23:20 | NUR ---
PATIENTS IV ABX IS DONE INFUSING PATIENT IS NOW SL. PATIENT GIVEN NEW ICE PACK FOR RIGHT HIP. PATIENT DOES NOT WANT TO GO ON THR BIPAP RIGHT NOW. PATIENT STATED "I WILL CALL WHEN I AM READY" PATIENT DENIES ANY FURTHER NEEDS CALL LIGHT IN REACH.
--- NOTE | 2017-04-12 00:44 | NUR ---
PATIENT PLACED ON BIPAP PER REQUEST BY RT. PATIENT DENIES ANY PAIN. PATIENT DENIES ANY NEEDS AT THIS TIME. CALL LIGHT IN REACH.
--- NOTE | 2017-04-12 02:01 | NUR ---
PATIENT ASSISTED TO THE RESTROOM. PATIENT IS A SBA W/FWW. PATIENT IS STEADY ON HIS FEET. PATIENT IS NOW BACK IN BED RESTING AND WEARING CPAP. PATIENTS CALL LIGHT IN REACH.
--- NOTE | 2017-04-12 04:19 | NUR ---
PATIENT GIVEN NEW ICE PACK FOR HIP PER REQUEST. PATIENT RATES RIGHT HIP PAIN AT A 3/10. PATIENT DENIES THE NEED FOR ANY PAIN MEDICATION AT THIS TIME. CALL LIGHT IN REACH.
--- NOTE | 2017-04-12 05:22 | NUR ---
PATIENT RESTED FOR THE MAJORITY OF THE SHIFT. PATIENT IS SL AND IV FLUSHES WELL. PATIENT IS ON A REG DIET W/2400 EUN, AND 1800ML FLUID RESTRICITON. PATIENT WEARS CPAP WHILE ALSEEP. PATENT IS SBA W/FWW AND IS STEADY ON HIS FEET. PATIENT IS AAOX3 AND USES CALL LIGHT APPROPRIATLEY.
--- NOTE | 2017-04-12 06:26 | NUR ---
PATIENTS VITALS TAKEN AND RECORDED. PATIENT DENIES ANY PAIN AT THIS TIME. PATIENT DENIES ANY NEEDS AT THIS TIME. CALL LIGHT IS WITHIN REACH.
--- NOTE | 2017-04-12 08:00 | NUR ---
PATIENT UP TO BATHROOM STEADY ON FEET. LUNG SOUNDS CLEAR, USING IS WELL. FULL BODY ASSESMENT DONE, PANNUS CONTINUES TO APPEAR RED. PATIENT REPORTS FEELS LIKE ICE HELPS IMPROVES REDNESS, DISCUSSED WITH PATIENT WHAT REDNESS IS FROM AND ANTIBIOTIC TX. PLACED CLEAN PILLOW CASE IN FOLD, PATIENT REPORTS HE DOESN'T LIKE IT, ENCOURAGED HIM TO KEEP PILLOW CASE IN PLACE. PATIENT AGREED.
--- NOTE | 2017-04-12 12:00 | NUR ---
NEW ORERS FOR DESITIN, AND WOUND CARE ORDER TO KEEP CLEAN AND DRY. PATIENT UP AMBULATING IN ROOM, APPEARS STEADY ON FEET WITH WALKER. VS STABLE. PATIENT'S MOTHER IN ROOM.
--- NOTE | 2017-04-12 18:37 | EKG ---
[facility] [address] [facility] [place] [address] Signed Sinus bradycardia with 1st degree AV block Left axis deviation Right bundle branch block Left anterior fascicular block Abnormal ECG Confirmed by KENDALL GUTIERREZ MD ([id number]) on 04/12/2017 6:37:43 PM Electronically Signed By: KENDALL GUTIERREZ MD 04/12/17 1837 PATIENT NAME: LILY VALENTIN Electrocardiogram DATE OF : 62 PHYSICIAN: KENDALL GUTIERREZ MD REPORT #: [id number] REPORT IS CONFIDENTIAL AND NOT TO BE RELEASED WITHOUT AUTHORIZATION
--- NOTE | 2017-04-12 19:20 | NUR ---
IN TO SEE PT, PT SITTING AT BEDSIDE WATCHING TV. REPORT RECVD FROM JUANITA SOLANO. PT STATES HE HAD TO GET UP TO THE BATHROOM WITH ASSIST OF FWW. PT DID NOT CALL DUE TO URGENCY TO URINATE. PT ADVISED TO CALL FOR STANDBY ASSIST IN THE FUTURE IF NEEDED. PT ADVISED THAT WILL RETURN FOR ASSESSMENT AND PM MEDICATIONS. NO NEEDS AT THIS TIME. CALL LIGHT IN REACH.
--- NOTE | 2017-04-12 21:20 | NUR ---
IN TO CHECK ON PT, PT AWAKE WATCHING TV. PT REQUEST TYLENOL FOR PAIN IN R HIP AND ANKLE. PRN MEDICATION GIVE. IV ABX INFUSING. PT IS AAO X3. PLEASANT DEMEANOR. NO FURTHER NEEDS AT THIS TIME. URINAL AT BEDSIDE. CALL LIGHT WITH IN REACH.
--- NOTE | 2017-04-12 23:05 | NUR ---
IN TO STOP IV ABX. IV SL. PT AWAKE WATCHING TV. HE STATES " I WILL CALL A LITTLE BIT LATER WHEN I AM READY FOR THE CPAP." NO FURTHER NEEDS AT THIS TIME. CALL LIGHT IN REACH.
--- NOTE | 2017-04-12 23:30 | NUR ---
PT CALLED REQUESTING RT TO ROOM TO APPLY CPAP. RT NOTIFIED. CPAP IN PLACE. NO FURTHER NEEDS AT THIS TIME. CALL LIGHT WITH IN REACH.
--- NOTE | 2017-04-13 01:45 | NUR ---
IN TO CHECK ON PT, PT SLEEPING. CPAP IN PLACE. NO APPARENT DISTRESS NOTED. RR EVEN AT 18 AND UNLABORED. WALKER AT BEDSIDE PT IS INDEPENDENT IN ROOM. CALL LIGHT IN REACH.
--- NOTE | 2017-04-13 05:06 | NUR ---
PT HAS HAD UNEVENTFUL SHIFT, RESTED WELL. IV ABX RECVD. VANCO TROUGH TO BE DRAWN 04/13/17 @ 0930. PT C/O MILD RIP HIP AND ANKLE PAIN, PRN TYLENOL GIVEN. PT INDEPENDENT IN ROOM WITH FWW. SL. AFIBRILE. DRSG CHANGE COMPLETED, PT TOLERATED WELL. SL. AFIBRILE, VITALS STABLE.
--- NOTE | 2017-04-13 06:13 | NUR ---
IN TO CHECK ON PT, PT AWAKE WATCHING TV. PT STATES HE RESTED WELL, PLEASANT DEMEANOR. URINAL EMPTIED. VITALS OBTAINED. NO FURTHER NEEDS AT THIS TIME. CALL LIGHT IN REACH.
--- NOTE | 2017-04-13 09:20 | NUR ---
PT AWAKE IN BED WATCHING TV. DENIES PAIN OR OTHER CONCERNS AT THIS TIME. ALERT AND ORIENTED. IV FLUSHES WELL. LOWER ABD WOUND SITE IMPROVED, DRY, NO DRAINAGE, DRY DRESSING IN PLACE. ATE 100% OF BREAKFAST. CALL LIGHT WITHIN REACH.
--- NOTE | 2017-04-13 10:53 | NUR ---
PT IS SITTING UP IN BED WAITING FOR THE DOCTOR MAKE HIS ROUNDS, PT DOES NOT WANT TO SHOWER B/C HE WANTS TO DO IT AT HOME. PT DOES NOT NEED ANYTHING ELSE AT THE MOMENT
[2017-04-13] MEDS ORDERED: BACTRIM DS TAB1 EACH PO (11:15)
[2017-04-13] MEDS ORDERED: ISOSORBIDE MONO60 MG PO (11:19)
[2017-04-13] MEDS ORDERED: DESITIN57 GM TOP (11:20)
== END 2017-04-13 12:56 | disposition home or self-care (01) | DRG 602 ==
LOC: ED 18:08 → MS 20:05
PROVIDERS: ADMIT Pediatrics Pediatric Critical Care Medicine
DX: L03.311 Cellulitis of abdominal wall (principal); I50.23 Acute on chronic systolic (congestive) heart failure; I13.0 Hypertensive heart and chronic kidney disease with heart failure and stage 1 through stage 4 chronic kidney disease, or unspecified chronic kidney disease; J96.12 Chronic respiratory failure with hypercapnia; J96.11 Chronic respiratory failure with hypoxia; I48.92 Unspecified atrial flutter; Z68.43 Body mass index [BMI] 50.0-59.9, adult; I48.0 Paroxysmal atrial fibrillation; I25.10 Atherosclerotic heart disease of native coronary artery without angina pectoris; N18.3 Chronic kidney disease, stage 3 (moderate); E78.5 Hyperlipidemia, unspecified; E66.01 Morbid (severe) obesity due to excess calories; G47.33 Obstructive sleep apnea (adult) (pediatric); E53.8 Deficiency of other specified B group vitamins; D50.9 Iron deficiency anemia, unspecified; K42.9 Umbilical hernia without obstruction or gangrene; I27.81 Cor pulmonale (chronic); Z79.01 Long term (current) use of anticoagulants
CPT/HCPCS: 36415; 71010; 80048; 80053; 80202; 81001; 82607; 82728; 82746; 83540; 83605; 83615; 83735; 83880; 84466; 85025; 85045; 85610; 85651; 85730; 86140; 87040; 87070; 87077; 87186; 87205; 93005; 93010; 94660; 94668; 94760; 94762; 96365; 96366; 96368; 99285; J0696; J2248; J3370; J3475; J7030; J7060

== ENCOUNTER 2017-05-20 19:31 | Inpatient (IN) | payer BC ==
[~2017-05-20] VITALS: Ht 180.3 cm; Wt 169.2 kg
[~2017-05-20 19:31] MED LIST changes: +ASPIR-LOW81 MG PO; +BACTRIM DS TAB1 EACH PO; +DEMADEX20 MG PO; +DESITIN57 GM TOP; +FERROUS SULFAT325 MG PO; +ISOSORBIDE MONO60 MG PO; +VITAMIN B-121000 MCG PO; +VITAMIN D32000 UNIT PO
--- OUTSIDE RECORDS SUMMARY | 2017-05-20 20:44 | XMS ---
Demographics + + + | Address | [address] | | | [address] | | | [place] [address] | + + + | Preferred Language | Unknown | + + + | Marital Status | Unknown | + + + | Restorationism Affiliation | Unknown | + + + | Race | Unknown | + + + | Ethnic Group | Unknown | + + + Author + + + | Author | [facility] | + + + | Organization | [facility] | + + + | Address | [address] | | | [place] [address] | + + + | Phone | | + + + Care Team Providers + + + + | Care Dance Hall Hostess Name | Role | Phone | + + + + Unavailable | Unavailable | + + + + PROBLEMS +---------+ + + +--------+ + + | Type | Condition | ICD9-CM | [id number] | Onset | Condition | SNOMED | | | | Code | Code | Dates | Status | Code | +---------+ + + +--------+ + + | Problem | Essential | | I10 | | Active | [id number] | | | (primary) | | | | | | | | hypertensi | | | | | | | | on | | | | | | +---------+ + + +--------+ + + | Problem | Paroxysmal | | I48.0 | | Active | [id number] | | | atrial | | | | | | | | fibrillati | | | | | | | | on | | | | | | +---------+ + + +--------+ + + | Problem | Chronic | | N18.3 | | Active | [id number] | | | kidney | | | | | | | | disease, | | | | | | | | stage 3 | | | | | | +---------+ + + +--------+ + + | Problem | Coronary | | I25.10 | | Active | 94103359 | | | artery | | | | | | | | disease | | | | | | +---------+ + + +--------+ + + | Problem | Umbilical | K42.9 | | | Active | 270117415 | | | hernia | | | | | | +---------+ + + +--------+ + + | Problem | Anemia | | D64.9 | | Active | 061350690 | +---------+ + + +--------+ + + | Problem | Chronic | | I50.22 | | Active | 161545718 | | | systolic | | | | | | | | (congestiv | | | | | | | | e) heart | | | | | | | | failure | | | | | | +---------+ + + +--------+ + + | Problem | Vitamin D | | E55.9 | | Active | 24986125 | | | deficiency | | | | | | | | , | | | | | | | | unspecifie | | | | | | | | d | | | | | | +---------+ + + +--------+ + + | 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 | | | Active | 85812948 | | | l | | | | | | | | hypothyroi | | | | | | | | dism | | | | | | +---------+ + + +--------+ + + | Problem | Metabolic | | E88.81 | | Active | 205592857 | | | syndrome | | | | | | +---------+ + + +--------+ + + | Problem | Hyperlipid | | E78.5 | | Active | 80560839 | | | emia, | | | | | | | | unspecifie | | | | | | | | d | | | | | | +---------+ + + +--------+ + + | Problem | Cor | | I27.81 | | Active | 98084229 | | | pulmonale | | | | | | | | (chronic) | | | | | | +---------+ + + +--------+ + + | Problem | Morbid | Z68.41 | | | Active | 552245120 | | | obesity | | | [...] | G47.33 | | | Active | 92661680 | | | e sleep | | [...] + + + | Follow Up | 3 Weeks Reason:null | + + + VITAL SIGNS + + + + | Height | 71 in | 2017-04-09 | + + + + | Weight | 355.8 lbs | 2017-04-09 | + + + + | BMI | 49.62 kg/m2 | 2017-04-09 | + + + + | Temperature | 102.8 degrees Fahrenheit | 2017-04-09 | + + + + | Heart Rate | 79 /min | 2017-04-09 | + + + + | Blood pressure systolic | 162 mm Hg | 2017-04-09 | + + + + | Blood pressure diastolic | 63 mm Hg | 2017-04-09 | + + + + MEDICATIONS + + + + + + + +--------+ | Medicati | Instruct | Dosage | Frequenc | Start | End Date | Duration | Status | | on | ions | | y | Date | | | | + + + + + + + +--------+ | RA | | take 1 | | | | 90 | Active | | Vitamin | | capsule | | | | | | | D-3 2000 | | by mouth | | | | | | | UNIT | | once | | | | | | | | | daily | | | | | | + + + + + + + +--------+ | Ferrous | | take 1 | | | | 90 | Active | | Sulfate | | tablet | | | | | | | 325 (65 | | by mouth | | | | | | | Fe) MG | | once | | | | [...] | 1 tablet | | | | 90 | Active | | e 20 mg [...] | 10 mg | coumadin | | 2016 | | | | | 10 mg [...] + + + + + +--------+ | RA | | take 1 | | | | 90 | Active | | Vitamin | | tablet | | | | | | | B-12 TR | | by mouth | | | | | | | 1000 MCG | | once | | | | [...] + + | Est Level III | Apr 09, 2017 | | | | Intermediate | | | | + + + + + IMMUNIZATIONS No Known Immunizations"
--- OUTSIDE RECORDS SUMMARY | 2017-05-20 20:44 | XMS ---
Demographics + + + | Address | [address] | | | [address] | | | [place] [address] | + + + | Preferred Language | Unknown | + + + | Marital Status | Unknown | + + + | Islam Affiliation | Unknown | + + + | Race | Unknown | + + + | Ethnic Group | Unknown | + + + Author + + + | Author | [facility] | + + + | Organization | [facility] | + + + | Address | [address] | | | [place] [address] | + + + | Phone | | + + + Care Team Providers + + + + | Care Deposit Refund Clerk Name | Role | Phone | + + + + Unavailable | Unavailable | + + + + PROBLEMS +---------+ + + +--------+ + + | Type | Condition | ICD9-CM | [id number] | Onset | Condition | SNOMED | | | | Code | Code | Dates | Status | Code | +---------+ + + +--------+ + + | Problem | Essential | | I10 | | Active | [id number] | | | (primary) | | | | | | | | hypertensi | | | | | | | | on | | | | | | +---------+ + + +--------+ + + | Problem | Paroxysmal | | I48.0 | | Active | 667507256 | | | atrial | | | | | | | | fibrillati | | | | | | | | on | | | | | | +---------+ + + +--------+ + + | Problem | Chronic | | N18.3 | | Active | [id number] | | | kidney | | | | | | | | disease, | | | | | | | | stage 3 | | | | | | +---------+ + + +--------+ + + | Problem | Coronary | | I25.10 | | Active | 64541941 | | | artery | | | | | | | | disease | | | | | | +---------+ + + +--------+ + + | Problem | Umbilical | K42.9 | | | Active | 279829731 | | | hernia | | | | | | +---------+ + + +--------+ + + | Problem | Anemia | | D64.9 | | Active | 210467855 | +---------+ + + +--------+ + + | Problem | Chronic | | I50.22 | | Active | 994254455 | | | systolic | | | | | | | | (congestiv | | | | | | | | e) heart | | | | | | | | failure | | | | | | +---------+ + + +--------+ + + | Problem | Vitamin D | | E55.9 | | Active | 86834155 | | | deficiency | | | | | | | | , | | | | | | | | unspecifie | | | | | | | | d | | | | | | +---------+ + + +--------+ + + | 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 | | | Active | 35377185 | | | l | | | | | | | | hypothyroi | | | | | | | | dism | | | | | | +---------+ + + +--------+ + + | Problem | Metabolic | | E88.81 | | Active | 953826790 | | | syndrome | | | | | | +---------+ + + +--------+ + + | Problem | Hyperlipid | | E78.5 | | Active | 74497212 | | | emia, | | | | | | | | unspecifie | | | | | | | | d | | | | | | +---------+ + + +--------+ + + | Problem | Cor | | I27.81 | | Active | 20029378 | | | pulmonale | | | | | | | | (chronic) | | | | | | +---------+ + + +--------+ + + | Problem | Morbid | Z68.41 | | | Active | 318967276 | | | obesity | | | [...] | G47.33 | | | Active | 91697732 | | | e sleep | | | | | | | | apnea | | | | | | +---------+ + + +--------+ + + ALLERGIES + + + + +---------+ | Substance | Reaction | Event Type | Date | Status | + + + + +---------+ | N.K.D.A. | Unknown | Non Drug | 11 Apr, 2017 | Unknown | | | | [...] + | Height | 71 in | 2017-04-22 | + + + + | Weight | 353.8 lbs | 2017-04-22 | + + + + | BMI | 49.34 kg/m2 | 2017-04-22 | + + + + | Temperature | 98.3 degrees Fahrenheit | 2017-04-22 | + + + + | Heart Rate | 58 /min | 2017-04-22 | + + + + | Blood pressure systolic | 161 mm Hg | 2017-04-22 | + + + + | Blood pressure diastolic | 54 mm Hg | 2017-04-22 | + + + + MEDICATIONS + [...] + +--------+ | Carvedil | Orally | 1 tablet | | [...] + | Est Level III | Apr 22, 2017 | | | | Intermediate | | | | + + + + + | Influenza | Apr 22, 2017 | | | + + + + + | INJECTION | Apr 22, 2017 | | | | INTRAMUSCULAR OR | | | | | SUBCUTANEOUS | | | | + + + + + IMMUNIZATIONS + + + + + | Vaccine | Route | Administration Date | Status | + + + + + | Influenza | IM Intramuscular | Apr 22, 2017 | Administered | + + + + +"
--- NOTE | 2017-05-20 22:10 | NUR ---
PT HAD MEDIUM BROWN SOFT BM WITH SMALL AMOUNT OF BLOOD AROUND STOOL AND MIXED WIT URINE.
--- NOTE | 2017-05-20 22:10 | NUR ---
PT ARRIVED VIA STRETCHER WITH NURSING GENERAL MAINTENANCE ENGINEER. OTHER RN AND GENERAL MAINTENANCE ENGINEER IN ROOM TO TRANSFER PT TO BEDSIDE CAMMODE. PT TOLERATED WELL. PT DOES NOT LIKE STAFF TO HELP WITH CAMMODE CARE. EDUCATED PT FOR HIS SAFETY STAFF NEED TO BE IN THE ROOM FOR TRANSFERS AND WHEN PT STANDS. PT ASSISTED TO BED. CALL LIGHT IN HAND.
--- NOTE | 2017-05-20 22:45 | NUR ---
ON ASSESSMENT PT SKIN INTEGRITY IN PANNUS REGION IS POOR. PT WAS ADMITTED TO [facility] A MONTH AGO FOR CELLULITIS IN THAT REGION. PT HAS OPEN SORE IN THIS REGION WITH SMALL AMOUNT OF REDDNESS. NO OTHER SKIN ISSUES NOTED AT THIS TIME.
--- NOTE | 2017-05-20 23:40 | NUR ---
RT IN TO SET UP AND ADJUST SETTING ON CPAP MACHINE. NEW IV STARTED WITH NO ISSUES. PT TOLERATED WELL. CALL LIGHT IN HAND. MUSIC IN ROOM IS ON. CPAP ON AT THIS TIME. WILL CONTINUE TO MONITOR.
--- NOTE | 2017-05-21 00:42 | NUR ---
PT BED ALARM IN PLACE FOR PT SAFETY. CALL LIGHT IN HAND. PT CALLED FOR WARM BLANKETS AND TEMPERATURE IN ROOM TO BE TURNED UP. NO OTHER ISSUES AT THIS TIME.
--- NOTE | 2017-05-21 02:40 | NUR ---
PT CALLED TO USE URINAL. DURING THIS TIME PT UNSURE IF HE NEEDS TO HAVE A BM AND REFUSED USING THE URINAL. PT ASKED TO SIT ON EDGE OF BED. ASSISTED TO EDGE OF BED. PT EDUCATED KYLAH BARROSO'S ORDERS WITH INSTRUCTION IF PT HAS BLOODY BM HE IS TO REMAIN BEDREST. PT STATES I CANT USE A BEDPAN I HAVE TO GET UP. PT HAD SMALL AMOUNT OF BLOOD WITH STOOL PRIOR IN THE SHIFT. NURSING DIRECTOR CHILD ABUSE THERAPY IN TO ASSIST. NURSING DIRECTOR CHILD ABUSE THERAPY EDUCATED PT THIS ORDER IS IN PLACE FOR THE PATIENTS SAFETY D/T DIZINESS WITH ACTIVE BLEEDING. PT CONTINUED TO DECLINE USING BEDPAN. PT AWARE OF THE FACT IF HE STANDS-UP HE COULD BECOME LIGHT HEADED AND PASS OUT AND FALL AND POTENTIAL CAUSE HARM. PT AMBULATED TO BEDSIDE CAMMODE ANYWAYS. PT DID NOT HAVE ANY BM ONLY URINATED. PT ASSISTED BACK TO BED WITH NO DIFFICULTIES. CALL LIGHT IN HAND. BED IN LOWEST POSITION. BED ALARM ON. PT AMBULATED TO CAMMODE ANYWAYS.
--- NOTE | 2017-05-21 03:00 | NUR ---
PT HAD SLIGHT TEMP OF 100.1 ORALLY. PT ASKED FOR TYLENOL FOR GENERALIZED PAIN. GAVE PRN TYLENOL. PT WAS ALSO BUNDLED UP IN BLANKETS AND ROOM TEMP WAS 76 D/T PT BEING COLD PRIOR IN THE SHIFT. WILL COTNINUE TO MONITOR TEMP. NO OTHER ISSUES AT THIS TIME.
--- NOTE | 2017-05-21 05:47 | NUR ---
PT CALLED ASKING FOR ICE CHIPS. GAVE A CUP OF ICE. PT ON 1L NC AT THIS TIME. WILL TURN OFF AND MONITOR PT SPO2. WILL CONTINUE TO MONITOR.
--- NOTE | 2017-05-21 06:50 | NUR ---
PT CALLED TO URINATE. PT AGAIN REFUSED TO USE URINAL. PT INSISTED ON GETTING TO CAMMODE. REEDUCATED ABOUT POSSIBLE DIZZINESS AND FALLING WITH GI BLEED. EDUCATED ABOUT MD'S ORDER. PT UP TO CAMMODE ANYWAYS. 2 RN'S IN ROOM. PT TOLERATED WELL. PT HAS HAD NO BM SINCE LAST NIGHT. WILL CONTINUE TO MONITOR.
--- NOTE | 2017-05-21 07:30 | NUR ---
BEDSIDE REPORT RECIEVED. PATIENT IS AWAKE AND ALERT, DENIES PAIN OR PROBLEMS. TALKED WWITH PATIENT ABOUT PLAN OF CARE FOR DAY, IS UNDERSTANDING.
--- NOTE | 2017-05-21 08:30 | NUR ---
ASSESSMENT DONE. O2 TO RA SATS 99-100%. HERE TO SEE PATIENT, ORDERS RECIEVED TO START BOWEL PREP. PATIENT TOOK CLEAR LIQUIDS WELL. NO ACTIVE BLEEDING NOTED AT THIS TIME.
--- NOTE | 2017-05-21 10:36 | EKG ---
[facility] [address] [place] [address] Signed Sinus rhythm with 1st degree AV block Left axis deviation Right bundle branch block Abnormal ECG When compared with ECG of 20-MAY-2017 19:33, (Unconfirmed) Sinus rhythm has replaced Junctional rhythm Right bundle branch block is now present Confirmed by JOVI THURMAN MD ([id number]) on 05/21/2017 10:35:52 AM Electronically Signed By: JOVI THURMAN MD 05/21/17 1036 PATIENT NAME: LILY VALENTIN Electrocardiogram DATE OF : 62 PHYSICIAN: JOVI THURMAN MD REPORT #: [id number] REPORT IS CONFIDENTIAL AND NOT TO BE RELEASED WITHOUT AUTHORIZATION
--- NOTE | 2017-05-21 10:46 | NUR ---
BOWEL PREP STARTED.
--- NOTE | 2017-05-21 10:47 | NUR ---
CONTINUE TO TAKE BOWEL PREP. C/O SLIGHT NAUSEA. SAT AT BEDSIDE. BELCHING.
--- NOTE | 2017-05-21 11:48 | NUR ---
HAD 2 EXTRA LARGE STOOLS WITH BLOOD NOTED AROUND STOOL, ALSO URINATED. HAS BEEN TAKING BOWEL PREP WELL.
--- NOTE | 2017-05-21 14:00 | NUR ---
HAS HAD SEVERAL LIQ STOOLS. MINIMAL BLOOD NOTED. DENIES DIZZINESS WITH MOVEMENT. AWAITING COLONOSCOPY. REMAINS NPO.
--- NOTE | 2017-05-21 15:52 | NUR ---
RESTFUL. COLONOSCOPY ON HOLD AT THIS TIME. PATIENT IS AWARE.
--- NOTE | 2017-05-21 16:00 | NUR ---
WOKE FOR ASSESSMENT.
--- NOTE | 2017-05-21 16:08 | NUR ---
CPAP APPLIED O2 SAT TO 77 WHILE ASLEEP.
--- NOTE | 2017-05-21 18:11 | NUR ---
Medications reconciled by pharmacist using pharmacy records and patient interview. Patient is known to pharmacist, as he has been a regular patient at [facility]. His home warfarin dose is 10mg daily (=70mg/wk)
--- NOTE | 2017-05-21 18:15 | NUR ---
IS VERY FRUSTRATED ABOUT NOT ABLE TO HAVE ANYTHING TO DRINK, ASKING QUESTIONS ABOUT WHEN COLONOSCOPY IS GOING TO BE DONE. TOLD PATIENT WHEN I HAD ANY INFORMTION REGARDING COLONOSCOPY I WOULD LET HIM KNOW. CUP OF ICE GIVEN IS DEMANDING THIS.
--- NOTE | 2017-05-21 18:28 | NUR ---
HGB-9.4. AT 1800 LAB DRAW.
--- NOTE | 2017-05-21 18:45 | NUR ---
RESTING WITH HOB ELEVATED, WATCHING TV. TAKING ICE CHIPS.
--- NOTE | 2017-05-21 19:19 | NUR ---
REPORT TO NEXT SHIFT. DR. VILLA UPDATED ON PATIENT AND IS AWARE OF ICE GIVEN.
--- NOTE | 2017-05-21 19:30 | NUR ---
SHIFT REPORT RECIVED FROM DAY SHIFT RN. DAY SHIFT RN UPDATED MD REGUARDING PT DRINKING WATER. MD IS OKAY WITH WATER AND ICE UNTIL MIDNIGHT. PT WILL HAVE PREOCEDURE TOMORROW. NO OTHER ISSUES AT THIS TIME. PT RESTING IN BED. WILL CONTINUE TO MONITOR.
--- NOTE | 2017-05-21 20:00 | NUR ---
PT SHIFT ASSESSMENT COMPLETED. PT UPDATED ON PLAN OF CARE AND PLAN FOR PROCEDUR TOMORROW. PT IS AGGREEABLE TO THIS PLAN. PT LUNGS CLEAR AND DIMINISHED. PT ON ROOM AIR WHILE AWAKE AND CPAP AT NIGHT. SPO2 95% ON CPAP. BOWEL TONES ACTIVE. PT HAS ICE AT THE BEDSIDE. CLEANSED PANNUS AREA APPLIED NYSTATIN AND PLACED ABD TO HELP WITH OPEN SORES IN THIS REGION. PT LEGS REMAIN EDEMETOUS. PT UP TO CAMMODE AND TOELRATED WELL. ASSISTED BACK TO BED PLACED ON CPAP WITH CALL LIGHT IN HAND. WILL CONTINUE TO MONITOR.
--- NOTE | 2017-05-21 21:56 | NUR ---
PT RESTING IN BBED ON CPAP AT THIS TIME. CALL LIGHT IN HAND. PT STATES HE WILL CALL IF HE NEEDS ANYTHING. WILL CONTINUE TO MONITOR.
--- NOTE | 2017-05-21 22:45 | NUR ---
pt called to get up to cammode. pt tolerated well with no issues. pt back to bed with cpap in place and call light in hand. will continue to monitor.
--- NOTE | 2017-05-21 23:34 | NUR ---
PT CALLED AND STATES "I CANT SLEEP BECAUSE MY STOMACH IS RUMBLING". EDUCATED THAT PT RECIVED BOWEL PREP TODAY AND THIS IS AN EXPECTED OUTCOME. EDUCATED HE MAY NOT BE ABLE TO SLEEP WELL D/T BOWEL PREP. PT STATES "I KNOW". REMOVED FROM CPAP MACHINE AT THIS TIME PER PT REQUEST. WILL CONTINUE TO MONITOR.
--- NOTE | 2017-05-22 02:00 | NUR ---
PT RESTING IN BED WATCHIG TV. PT HAS CALL LIGHT IN HAND. DENIES ANY NEEDS AT THIS TIME. WILL CONTINUE TO MONITOR.
--- NOTE | 2017-05-22 04:00 | NUR ---
PT SLEEPING AT THIS TIME. CALL LIGHT IN HAND. BED IN LOWEST POSITION. WILL CONTINUE TO MONITOR.
--- NOTE | 2017-05-22 05:30 | NUR ---
PT WOKE UP FOR BLOOD DRAW. PT TOLERATED WELL. PT CALLED TO GET UP TO CAMMODE AFTER LABS WERE FINISHED. ASSISTED PT UP TO BEDSIDE CAMMODE. PT TOELRATED WELL. PT BACK TO BED WATCHING TV AT THIS TIME WITH CALL LIGHT IN HAND. WILL CONTINUE TO MONITOR.
--- NOTE | 2017-05-22 08:00 | NUR ---
ASLEEP. NO DISTRESS NOTED. IS ON 30% FIO2 VIA CPAP.
--- NOTE | 2017-05-22 09:20 | NUR ---
HAS BLOODY NOSE. PRESSURE APPLIED TO RIGHT.
--- NOTE | 2017-05-22 09:30 | NUR ---
NO FUTHER BLEEDING NOTED FROM RIGHT NARE.
--- NOTE | 2017-05-22 10:20 | NUR ---
NAPPING, NO DISTRESS NOTED.
--- NOTE | 2017-05-22 10:45 | NUR ---
TO OR VIA STRETCHER FOR COLONOSCOPY.
--- NOTE | 2017-05-22 12:17 | NUR ---
05/22/17 1217 Rubén Evans PATIENT PASSING AIR FROM RECTUM
--- NOTE | 2017-05-22 12:30 | NUR ---
RETURN TO CCU. IS AWAKE AND ALERT. TALKING ABOUT DX.
--- NOTE | 2017-05-22 12:50 | NUR ---
UP TO BR TO VOID HAD SMALL LIQ BM. PO CONTRAST STARED.
--- NOTE | 2017-05-22 13:20 | NUR ---
PATIENT MOM IN ROOM.
--- NOTE | 2017-05-22 13:45 | NUR ---
TO SHOWER VIA SHOWER CHAIR.
--- NOTE | 2017-05-22 14:10 | NUR ---
TOLERATED SHOWER WELL. TO BR TO VOID. USING WALKER WITH AMBULATION.
--- NOTE | 2017-05-22 14:27 | NUR ---
PT'S MOTHER SHARED WITH ME THAT JUST TOLD PT HE HAS CANCER. SHE IS UPSET, AND WANTED ME TO STOP BY AND SEE HIM. STAFF IN WITH PT-AND MOTHER. XIOMARA VYAS SAID SHE WOULD PREFER IF I NOT VISIT NOW. SHE WILL LET HIM KNOW I AM AVAILABLE
--- NOTE | 2017-05-22 15:20 | NUR ---
TO CT VIA W/C ACCOMP BY TECH. THEN WILL BE TRANFERRED MEDICAL FLOOR.
--- NOTE | 2017-05-22 15:45 | NUR ---
TRANSFERRED TO MEDICAL FLOOR REPORT GIVEN.
--- NOTE | 2017-05-22 16:00 | NUR ---
PT ARRIVED TO ROOM 112 FOR TRANSFER FROM CCU, PT BROUGHT TO ROOM BY [facility] LOCATION MANAGER. PT ALERT AND ORIENTED. REPORTS NO PAIN. PT SITTING UP AT BEDSIDE.
--- NOTE | 2017-05-22 16:51 | NUR ---
FRESH ICE WATER AND TOOK PT TO THE REST ROOM.
--- NOTE | 2017-05-22 18:13 | NUR ---
PT TRANSFERED FROM CCU AT [address] SCAN. HE HAS BEEN SETTING AT BEDSIDE VISITNG WITH HIS MOTHER. HE REPORTS NO PAIN. HAS NOT HAD BM SINCE TRANSFER, WAS REPORTED HE HAS HAD TWO SMALL LIQUID BM WITH TRACE OF BLOOD NOTED SINCE COLONOSCOPY TODAY. FIELD START REMOVED FROM LEFT FA.
--- NOTE | 2017-05-22 19:50 | NUR ---
IN TO SEE PT, PT AWAKE WATCHING TV. ASSESSMENT COMPLETE. ICE AND WATER GIVEN. PILLOW GIVEN. PT ABLE TO READJUST FOR OWN COMFORT. DENIES NAUSEA. TELE IN PLACE. IVF INFUSING. NO FURTHER NEEDS AT THIS TIME. CALL LIGHT IN PLACE.
--- NOTE | 2017-05-22 20:45 | NUR ---
IN ROOM FOR LIGHT, PT IN BATHROOM. ASSISTED BACK TO BED. 1 PERSON STANDBY WITH FWW, TOLERATED WELL. NO FURTHER NEEDS AT THIS TIME. PT REQUESTING TO SIT AT THE EDGE OF BED. CALL LIGHT IN REACH.
--- NOTE | 2017-05-23 01:12 | NUR ---
IN TO CHECK ON PT, PT APPEARS TO BE SLEEPING. CPAP IN PLACE. IVF INFUSING. CALL LIGHT IN REACH.
--- NOTE | 2017-05-23 01:45 | NUR ---
PT CALLED, UP TO BATHROOM WITH STANDBY ASSIST AND WALKED. PT TOLERATED WELL. LIQUID BM NOTED. PT REQUESTED TO LEAVE CPAP OFF, PT IS AWAKE WATCHING TV. LINENS AND GOWN CHANGED. NO FURTHER NEEDS AT THIS TIME. CALL LIGHT IN REACH.
--- NOTE | 2017-05-23 04:01 | NUR ---
PT AWAKE, BED ALARM SOUNDING. PT UP WITH THE ASSIST OF RN TO EDGE OF BED. CURTAINS AND DOOR OPEN. CALL LIGHT IN REACH.
--- NOTE | 2017-05-23 05:15 | NUR ---
PT HAS HAD UNEVENTFUL SHIFT, RESTED WELL. DENIES PAIN AND NAUSEA. LIQUID BM NOTED, NO SIGN OF BLOOD IN STOOL. CT OF ABD NOTED PER DAY SHIFT, NO RESULTS IN CHART. PT ON TELE #7, SINUS BRADYCARDIA NOTED (47-50 WHILE SLEEPING). 20G IV IN R WRIST, NS @ 75 MLS INFUSING. ON CLEAR LIQUID DIET. 1 PERSON REMBERTO ASSIST WITH FWW, PT TOLERATES WELL.
--- NOTE | 2017-05-23 07:35 | NUR ---
REPORT RECIEVED FROM XIOMARA BLAIR. PT AWAKE AND ANXIOUS TO TALK TO DR VILLA. DENIES PAIN.
--- NOTE | 2017-05-23 11:43 | NUR ---
PT AWAKE AND ATE ENTIRE CLEAR TRAY. STATES HE IS FEELING GOOD. MOTHER IN ROOM. HAD A LONG NAP THIS MORNING AFTER BREAKFAST.
--- NOTE | 2017-05-23 13:00 | NUR ---
PT ASLEEP AND IS DROPPING DOWN TO LOW 40'S AND EVEN [address] THURMAN AND SHE SAID TO CONTINUE TO MONITOR
--- NOTE | 2017-05-23 13:34 | NUR ---
PT RESTING IN BED. DENIES CONCERNS.
--- NOTE | 2017-05-23 14:42 | NUR ---
PT TRYING TO NAP AGAIN. MOTHER IN ROOM. BOTH WERE WONDERING IF HE NEEDED A BLOOD TRANSFUSION, ASKED DR THURMAN, SHE STATED NOT AT THIS TIME. PUSHED MOTHER IN HER WALKER OUT TO HER CAR AND PT TAKING A NAP AGAIN. CONTINUES TO DIANA DOWN TO LOW 40'S WHILE SLEEPING. DR DONNELLY AND JUST SAID TO MONITOR.
--- NOTE | 2017-05-23 16:40 | NUR ---
PATIENT REFUSED SHOWER TODAY.
--- NOTE | 2017-05-23 18:51 | NUR ---
FAXED A FACESHEET TO [facility] PER REQUEST FROM DOCTOR GUTIERREZ
--- NOTE | 2017-05-23 19:00 | NUR ---
REPORT RECVD FROM TERA SOLANO. IN TO SEE PT, PT SITTING UP AT BEDSIDE. PT APPEARS CONCERNED, WORRIED. WHEN DISCUSSED WITH PT HE STATES HE IS CONCERNED ABOUT HIS RECENT DIAGNOSIS OF COLON/KIDNEY CA. PT STATES " I JUST WANT TO GO SOMEWHERE AND GET THIS TAKEN CARE OF RIGHT AWAY." PT REASSURED THAT DR. GUTIERREZ WITH BE IN TO SEE HIM IN THE AM TO DISCUSS HIS PLAN OF CARE. OFFERED PT PAPER AND PEN TO WRITE DOWN QUESTIONS FOR PHYSICIAN. PT DECLINED AT THIS TIME. PT STATES HE IS GOING TO ATTEMPT TO REST. NO FURTHER NEEDS AT THIS TIME. CALL LIGHT IN REACH.
--- NOTE | 2017-05-23 20:34 | NUR ---
FRUIT PACKER REQUEST RN TO COME TO ROOM. RN INTO SEE PT. PT STATES HE NOTICED THAT HIS PANNUS WAS ITCHING AND BEGAN TO SCRATCH. WHEN DONE SCRATCHING PT NOTED BLEEDING FROM THE ULCERATED AREA ON PANNUS. WOUND ASSESSMENT COMPLETE. AREA CLEANED WITH NS AND FLUFF. NOTED TO BE AN ULCERATED AREA ON THE PANNUS, OPEN WITH SEROSANGUINEOUS DRAINAGE NOTED. SKIN DRIED, NYSTATIN POWDER APPLIED AND ABD PAD IN PLACE. NO FURTHER NEEDS AT THIS TIME. CALL LIGHT IN REACH.
--- NOTE | 2017-05-24 00:46 | NUR ---
IN TO CHECK ON PT, PT SLEEPING WITH CPAP IN PLACE. NO APPARENT DISTRESS NOTED. CALL LIGHT IN REACH.
--- NOTE | 2017-05-24 03:13 | NUR ---
IN TO CHECK ON PT, PT APPEARS TO BE SLEEPING. CPAP IN PLACE, PT LAYING ON SIDE. NO APPARENT DISTRESS NOTED. CALL LIGHT IN REACH.
--- NOTE | 2017-05-24 05:04 | NUR ---
PT HAS HAD UNEVENTFUL SHIFT, RESTED WELL. PT IS ANXIOUS REGARDING RECENT CA DIAGNOSIS. DENIES PAIN AND NAUSEA. LIQUID BM NOTED DURING SHIFT, NO BLOOD IN STOOL. PT ON TELE #7, SINUS BRADYCARDIA NOTED AT TIMES. IV SL. CLEAR LIQUID DIET. INDEPENDENT IN ROOM WITH FWW.
--- NOTE | 2017-05-24 07:05 | NUR ---
BEDSIDE HANDOFF REPORT RECEIVED FROM COLLECTIONS REPRESENTATIVE RN. PT SITTING ON EDGE OF BED. PT DENIES NEEDS AT THIS TIME. PT ANXIOUS ABOUT TREATMENT PLAN.
--- NOTE | 2017-05-24 09:15 | NUR ---
PT SITTING ON EDGE OF BED. PT DENIES PAIN. PT LUNG SOUNDS DIMINISHED THROUGHOUT, DENIES SOB, 02 SATS >92% ON ROOM AIR. PT BOWEL TONES ACTIVE, ADVANCED TO CARDIAC DIET, ASSISTED WITH ORDERING BREAKFAST. PT ASSISTED WITH SHOWER THIS AM WITH NURSE AIDE, NYSTATIN POWDER APPLIED TO PANNUS AND ABIGAIL, OPEN ULCER TO PANNUS, COVERED WITH ABD. PT WITH EDEMA TO BLE, 1+, PULSES STRONG. PT ANXIOUS ABOUT DISCHARGING HOME TODAY AND DIAGNOSIS. PT DENIES OTHER NEEDS AT THIS TIME.
--- NOTE | 2017-05-24 10:16 | NUR ---
TOOK SHOWER THIS MORNING NEEDED SOME HELP. CHANGED LINENS.
[2017-05-24] MEDS ORDERED: CARVEDILOL3.125 MG PO (11:28)
--- NOTE | 2017-05-27 08:45 | NUR ---
VISITED WITH PT ON 05/24 @ MOTHERS REQUEST. PT WAS WAITING FOR TEST RESULTS-FELT FAIRLY POSITIVE IT WOULD SHOW CANCER. HE SEEMED RATHER MATTER OF FACT WE TALKED ABOUT THE COMING RESULTS. HAD PRAYER, WILL FOLLOW NEEDED
--- NOTE | 2017-06-14 07:48 | OR ---
[facility] [address] [place], [place] [address] Signed DATE OF PROCEDURE: 05/22/17 PREOPERATIVE DIAGNOSES Hematochezia. Morbid obesity, BMI 52. Sleep apnea. Atrial fibrillation. Other comorbidities. POSTOPERATIVE DIAGNOSES Neoplasm located at 40 cm. Phlebectasia of the colon (multiple). Rectosigmoid sessile polyps x2. PROCEDURE Colonoscopy with hot snare polypectomy x2 and cold morcellation biopsy x1; incomplete to cecum due to anesthetic difficulties. SURGEON: Lily Villa MD. ANESTHESIA Propofol infusion. Nurse anesthesia assisted, Inés Lawrence CRNA including BiPAP therapy. INDICATION This 57-year-old morbidly obese white male is a patient of Dr. Sarah Carroll. I saw him in my office 2 days ago anticipating outpatient elective colonoscopy for anemia. He has been treated with Coumadin for atrial fibrillation and has a longstanding history of self-described "hemorrhoids" with rectal bleeding. He has never had a colon evaluation in the past. He presented to the hospital yesterday with hematochezia, was admitted and underwent a bowel prep yesterday anticipating colonoscopy. Colonoscopy was deferred to today as he has had no further bleeding and he has special comorbidities of his obesity. His INR is normal at this time. The risks of bleeding, infection, perforation, and anesthetic complications were reviewed with him and he agrees to proceed. He will be considered ASA class 3 and possibly 4 actually. FINDINGS Colonoscopy was not completed to the cecum, not because it was difficult as it was not, but rather he started having bradycardic symptoms of the colon and the transverse area requiring decompression and more expedited evaluation. His bradycardia was not less, lower than about 60, which is only relative bradycardia, but did seem to have trouble with ventilation to a degree that despite airway assistance and a BiPAP assisting Electronically Signed By: LILY VILLA MD 06/14/17 0748 PATIENT NAME: LILY VALENTIN OPERATIVE REPORT DATE OF : 62 PHYSICIAN: LILY VILLA MD REPORT #: [id number] REPORT IS CONFIDENTIAL AND NOT TO BE RELEASED WITHOUT AUTHORIZATION [facility] [address] [place], [place] [address] Signed device. As regards to the colon, it was well prepped. There were multiple phlebectasias of the colon extending from the sigmoid more proximally. I really did not see internal or external hemorrhoidal disease as he had reported. More importantly at 40 cm from the anal verge was a neoplasm of the colon taking up approximately 25% of the wall of the colon in that area. Biopsies were obtained, but it clinically was completely consistent with cancer. In the lower colon at the rectosigmoid at approximately 1 0 cm, there were 2 relatively large sessile polyps. These were excised with hot snare polypectomy technique. No actual treatment was undertaken for the phlebectasias. There was no lesion that was actively bleeding. DESCRIPTION OF PROCEDURE The patient was brought to the endoscopy suite and placed in the lateral decubitus position. A full facemask BiPAP device was in place and nurse anesthesia provided with Propofol infusion and careful monitoring. He was given intravenous sedation and external rectal examination showed no sign of external hemorrhoidal disease. Digital rectal examination revealed no palpable mass. An Olympus video colonoscope was passed in the rectum and in the rectosigmoid and into the sigmoid were noted multiple phlebectasia-type lesions. There were more numerous than usual. None were bleeding, however. The scope was advanced forward and at approximately 40 cm from the anal verge was a flat, somewhat ulcerated lesion most consistent with colon cancer. The scope was passed beyond this to the splenic flexure in the transverse colon, where additional phlebectasias were noted. He then started having some bradycardic changes. Air was withdrawn and no further manipulation of the colonoscope was undertaken. Airway management included chin lift and so forth. His bradycardia generally resolved and but further attempts at passing the scope were inadvisable under the circumstances, particularly given his enormous body habitus. On that basis, complete colonoscopy cannot be said to have been accomplished actually, specifically the right colon and cecum. The scope was then withdrawn with careful examination upon withdrawal of scope. Phlebectasia-type lesions were not bleeding. At 40 cm, the colonic lesion was once again noted. Biopsies were taken in a hurried way based on his anesthetic condition, but they were obtained and good specimens were obtained, it was believed. Further withdrawal of scope was undertaken and at the rectosigmoid 2 relatively large rounded, but sessile polyps were noted. These were both excised with hot snare polypectomy technique without bleeding problems. Retroflexed view was undertaken in the rectum showing no sign of lesion in the low rectum and no obvious hemorrhoidal changes. Scope was straightened and withdrawn and removed. The patient was taken to recovery in Electronically Signed By: LILY VILLA MD 06/14/17 0748 PATIENT NAME: LILY VALENTIN OPERATIVE REPORT DATE OF : 62 PHYSICIAN: LILY VILLA MD REPORT #: [id number] REPORT IS CONFIDENTIAL AND NOT TO BE RELEASED WITHOUT AUTHORIZATION [address] [address] Signed good condition. CONCLUDING DIAGNOSES Incomplete colonoscopy related to intolerance of intravenous sedation from airway and cardiac standpoint. Two sessile polyps of low rectum, possibly accounting for bleeding, but more likely related to phlebectasia lesions of the sigmoid and left colon, which are numerous. No active bleeding. Neoplasm at 40 cm, almost certainly malignant. PLAN One must be very circumspect on the idea of colonic resection, at least locally given his extreme obesity and cardiovascular status. We will await biopsy results for the time being. A CT scan of the abdomen would be appropriate to assess the left colonic neoplasm while bowel is still prepped. CEA level will be obtained as well. MD JOYCE Kelly/Alen /[id number] cc: Sarah Carroll MD Electronically Signed By: LILY VILLA MD 06/14/17 0748 PATIENT NAME: LILY VALENTIN OPERATIVE REPORT DATE OF : 62 PHYSICIAN: LILY VILLA MD REPORT #: [id number] REPORT IS CONFIDENTIAL AND NOT TO BE RELEASED WITHOUT AUTHORIZATION
--- NOTE | 2017-06-14 08:27 | CONS ---
[facility] [address] [place], [place] [address] Signed DATE OF CONSULTATION: 05/21/17 CONSULTING PHYSICIAN: Lily Villa MD. REQUESTING PHYSICIAN: Dr. Escobedo. PROBLEM: Hematochezia. HISTORY This quite markedly morbidly obese white man (BMI 52) was admitted last night under the direction of Dr. Escobedo following his presentation to the emergency room for blood per rectum. He was seen at about 2010 on 05/20/[address] Rosa. He had been seen in my office. Only yesterday for low-grade anemia, but without recent gross of blood per rectum. The patient has had a long history of episodic rectal bleeding which he attributed to hemorrhoids. Things have been worse in the past year since starting on Coumadin for atrial fibrillation. He had a bowel movement that filled the toilet bowl with blood, unable to see the bottom of the toilet. He had subsequent bleeding once again. He has been on iron supplementation for the past 2 years and therefore his stool is almost always quite dark. Colonoscopy had been scheduled for about 3 weeks from now to better assess his situation and to have him off his Coumadin. He was admitted directly to the Intensive Care Unit by Dr. Escobedo though he was hemodynamically stable. To my knowledge, reversal of his anticoagulation has not been undertaken. His presentation INR was 1.7 with a hematocrit of 28.7, white count 10.3, and platelet count 203,000. The patient denies any complaints of abdominal pain. He had no pain upon defecation per se. He is now feeling reasonably well. His blood pressure is 134 systolic, pulse is 83, in atrial fibrillation. REVIEW OF SYSTEMS He denies any hematemesis. He has had no dysphagia or hematuria. PHYSICAL EXAMINATION GENERAL: Very plethoric and morbidly obese white man who looks to be in no acute distress. HEENT: Trachea is midline. NECK: He has no carotid bruit. There is no cervical adenopathy. CHEST: Shows diminished respiratory excursion. LUNGS: Breath sounds are clear. Electronically Signed By: LILY VILLA MD 06/14/17 0827 PATIENT NAME: LILY VALENTIN CONSULTATION DATE OF : 62 PHYSICIAN: LILY VILLA MD REPORT #: [id number] REPORT IS CONFIDENTIAL AND NOT TO BE RELEASED WITHOUT AUTHORIZATION [facility] [address] [place], [place] [address] Signed ABDOMEN: Massively obese. Palpation reveals no tenderness. EXTREMITIES: No clubbing, cyanosis, or edema. LABORATORY DATA White count this morning is 8.5, hematocrit 26.2 (down from 28.7), platelets 262,000. Chem profile shows normal electrolytes, creatinine now 1.49, previously 1.97. Liver enzymes yesterday were normal. Coag studies today, INR is 1.1, yesterday 1.7. ASSESSMENT The patient has had hematochezia and a known history of hemorrhoids. He has been anticoagulated with Coumadin on the basis of atrial fibrillation. A plan for elective outpatient colonoscopy had been anticipated, however, since he has had this hematochezia and is admitted, bowel prep and colonoscopy would be appropriate to assess the source of his bleeding. This may represent hemorrhoidal bleeding, although more ominous diagnoses are a consideration particularly given his age of 57 years. The risks of bleeding, infection, perforation, and other unforeseen complications reviewed in detail. A MiraLAX based bowel prep will be initiated at this time with consideration for colonoscopy late in the day, though may require deferral to tomorrow depending on circumstances. MD JOYCE Kelly/Alen /[id number] cc: MD Sarah Puentes MD Electronically Signed By: LILY VILLA MD 06/14/17 0827 PATIENT NAME: BARBIELILY CONSULTATION DATE OF : 62 PHYSICIAN: LILY VILLA MD REPORT #: [id number] REPORT IS CONFIDENTIAL AND NOT TO BE RELEASED WITHOUT AUTHORIZATION
== END 2017-05-24 13:30 | disposition home or self-care (01) | DRG 375 ==
LOC: ED 19:31 → CCU 21:28 → MS 05-22 15:45
PROVIDERS: ADMIT Internal Medicine
PROC: 0DBN8ZX Excision of Sigmoid Colon, Via Natural or Artificial Opening Endoscopic, Diagnostic (ICD-10-PCS; principal; 2017-05-21)
DX: D37.4 Neoplasm of uncertain behavior of colon (principal); D62 Acute posthemorrhagic anemia; I50.22 Chronic systolic (congestive) heart failure; Z68.43 Body mass index [BMI] 50.0-59.9, adult; E66.2 Morbid (severe) obesity with alveolar hypoventilation; J96.12 Chronic respiratory failure with hypercapnia; J96.11 Chronic respiratory failure with hypoxia; N28.9 Disorder of kidney and ureter, unspecified; I48.0 Paroxysmal atrial fibrillation; Z79.01 Long term (current) use of anticoagulants; I11.0 Hypertensive heart disease with heart failure; E78.5 Hyperlipidemia, unspecified; G47.33 Obstructive sleep apnea (adult) (pediatric); I25.10 Atherosclerotic heart disease of native coronary artery without angina pectoris; E66.01 Morbid (severe) obesity due to excess calories; K42.9 Umbilical hernia without obstruction or gangrene; F17.220 Nicotine dependence, chewing tobacco, uncomplicated
CPT/HCPCS: 00810; 36415; 74177; 80048; 80053; 82378; 85018; 85025; 85610; 85730; 86850; 86900; 86901; 93005; 93010; 94660; 94760; 99285; J2704; J7030; Q9967

== ENCOUNTER 2017-05-26 10:53 | Emergency (ER) | payer BC ==
[~2017-05-26] VITALS: Ht 180.3 cm; Wt 169.0 kg
[~2017-05-26 10:53] MED LIST changes: +CARVEDILOL3.125 MG PO
== END 2017-05-26 12:26 | disposition home or self-care (01) ==
LOC: ED 10:53
DX: K62.5 Hemorrhage of anus and rectum (principal); D64.9 Anemia, unspecified; E66.01 Morbid (severe) obesity due to excess calories; I11.0 Hypertensive heart disease with heart failure; I50.9 Heart failure, unspecified; E03.9 Hypothyroidism, unspecified; Z87.891 Personal history of nicotine dependence; Z90.89 Acquired absence of other organs; Z79.899 Other long term (current) drug therapy
CPT/HCPCS: 85025; 85610; 85730; 99283

== ENCOUNTER 2017-05-28 17:23 | Emergency (ER) | payer BC ==
[~2017-05-28] VITALS: Ht 180.3 cm; Wt 169.0 kg
== END 2017-05-28 18:25 | disposition home or self-care (01) ==
LOC: ED 17:23
DX: F43.22 Adjustment disorder with anxiety (principal); I11.0 Hypertensive heart disease with heart failure; I50.9 Heart failure, unspecified; E66.9 Obesity, unspecified; E03.9 Hypothyroidism, unspecified; Z87.891 Personal history of nicotine dependence; Z79.899 Other long term (current) drug therapy
CPT/HCPCS: 85025; 99283

== ENCOUNTER 2017-12-24 11:17 | Emergency (ER) | payer BC ==
[~2017-12-24] VITALS: Ht 180.3 cm; Wt 169.2 kg
[~2017-12-24 11:17] MED LIST changes: +SPIRONOLACTONE50 MG PO; +VOLTAREN100 GM TOP; +WARFARIN SODIUM5 MG PO
[2017-12-31] MEDS ORDERED: CARVEDILOL6.25 MG PO (09:40)
[2017-12-31] MEDS ORDERED: CELECOXIB200 MG PO (09:40)
[2017-12-31] MEDS ORDERED: SPIRONOLACTONE25 MG PO (09:40)
== END 2017-12-24 11:35 | disposition home or self-care (01) ==
LOC: ED 11:17
DX: M25.531 Pain in right wrist (principal)

== ENCOUNTER 2018-08-15 19:11 | Emergency (ER) | payer BC, OTHER ==
[~2018-08-15] VITALS: Ht 180.3 cm; Wt 154.2 kg
[~2018-08-15 19:11] MED LIST changes: +CARVEDILOL6.25 MG PO; +CELECOXIB200 MG PO; +LEVAQUIN750 MG PO; +LOVENOX100 MG/1 M SUB-Q; +TAMSULOSIN HCL0.4 MG PO; +TYLENOL325 MG PO
[2018-08-15] MEDS ORDERED: ALDACTONE50 MG PO (20:38)
[2018-09-09] MEDS ORDERED: PREDNISONE20 MG PO (10:42)
[2018-09-16] MEDS ORDERED: ALLOPURINOL100 MG PO (10:38)
[2018-10-07] MEDS ORDERED: LEVOTHYROXINE25 MCG PO (10:46)
[2018-10-07] MEDS ORDERED: COLCRYS0.6 MG PO (10:46)
== END 2018-08-15 21:25 | disposition home or self-care (01) ==
LOC: ED 19:11
DX: M17.12 Unilateral primary osteoarthritis, left knee (principal); I11.0 Hypertensive heart disease with heart failure; I50.9 Heart failure, unspecified; E66.9 Obesity, unspecified; G47.30 Sleep apnea, unspecified; D64.9 Anemia, unspecified; E03.9 Hypothyroidism, unspecified; Z79.01 Long term (current) use of anticoagulants; Z79.899 Other long term (current) drug therapy
CPT/HCPCS: 73560; 99283

== ENCOUNTER 2018-08-24 05:57 | Emergency (ER) | payer BC, OTHER ==
[~2018-08-24] VITALS: Ht 180.3 cm; Wt 154.4 kg
[~2018-08-24 05:57] MED LIST changes: +ALDACTONE50 MG PO
--- OUTSIDE RECORDS SUMMARY | 2018-08-24 06:02 | XMS ---
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 Shauna has no Care Guidelines for this patient. [facility] MO[facility] NOTE: Visits indicate total known visits. ED/C VISIT TRACKING (12 MO.) 08/24/2018 05:57 [facility] [place] TYPE: Emergency COMPLAINT: - L ELBOW PAIN/NON INJURY 08/15/2018 19:12 [facility] [place] TYPE: Emergency COMPLAINT: - LEFT KNEE PAIN/SWELLING NON INJURY DIAGNOSES: - Pain in left knee - Anemia, unspecified - Hypertensive heart disease with heart failure - Heart failure, unspecified - Hypothyroidism, unspecified - snf (current) use of anticoagulants - Other intermediate (current) drug therapy - Unilateral primary osteoarthritis, left knee - Obesity, unspecified - Sleep apnea, unspecified 06/27/2018 12:19 [facility] [place] TYPE: Emergency COMPLAINT: - DIZZINESS 12/24/2017 11:18 [facility] [place] TYPE: Emergency COMPLAINT: - R WRIST PAIN/NO INJURY/MSE TO CLINIC DIAGNOSES: - Pain in right wrist INPATIENT VISIT TRACKING (12 MO.) 06/27/2018 12:20 [facility] [place] TYPE: Medical Surgical COMPLAINT: - ACUTE KIDNEY INJURY DIAGNOSES: - Acute kidney failure, unspecified - snf (current) use of anticoagulants - Body mass index (BMI) 40.0-44.9, adult - Cardiomyopathy, unspecified - Acquired absence of kidney - Hypothyroidism, unspecified - Personal history of nicotine dependence - Obesity, unspecified - Anemia, unspecified - Other intermediate teacher (current) drug therapy - Dehydration - Dizziness and giddiness - Chronic kidney disease, unspecified - Infection and inflammatory reaction due to indwelling urethral catheter, initial encounter - Personal history of other malignant neoplasm of large intestine - Heart failure, unspecified - Urinary tract infection, site not specified - Sleep apnea, unspecified - Hypertensive heart and chronic kidney disease with heart failure and stage 1 through stage 4 chronic kidney disease, or unspecified chronic kidney disease 06/11/2018 10:30 [facility] TYPE: Surgical Services DIAGNOSES: - Peritoneal adhesions (postprocedural) (postinfection) - Other specified disorders of kidney and ureter - Mixed hyperlipidemia - 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
[2018-09-09] MEDS ORDERED: PREDNISONE20 MG PO (10:42)
[2018-09-16] MEDS ORDERED: ALLOPURINOL100 MG PO (10:38)
[2018-10-07] MEDS ORDERED: COLCRYS0.6 MG PO (10:46)
[2018-10-07] MEDS ORDERED: LEVOTHYROXINE25 MCG PO (10:46)
== END 2018-08-24 07:06 | disposition home or self-care (01) ==
LOC: ED 05:57
DX: M70.32 Other bursitis of elbow, left elbow (principal); I11.0 Hypertensive heart disease with heart failure; I50.9 Heart failure, unspecified; E66.9 Obesity, unspecified; G47.30 Sleep apnea, unspecified; D64.9 Anemia, unspecified; E03.9 Hypothyroidism, unspecified; Z87.891 Personal history of nicotine dependence; Z79.01 Long term (current) use of anticoagulants; Z79.899 Other long term (current) drug therapy
CPT/HCPCS: 73080; 99283

== ENCOUNTER 2018-12-11 02:41 | Emergency (ER) | payer OTHER ==
[~2018-12-11] VITALS: Ht 180.3 cm; Wt 160.8 kg
--- OUTSIDE RECORDS SUMMARY | ~2018-12-11 | XMS | Encounter Summary ---
Demographics + + + | Address | [address] | | | [place] [address] | + + + | Home Phone | | + + + | Preferred Language | Unknown | + + + | Marital Status | Single | + + + | Rastafari Affiliation | 1077 | + + + | Race | Unknown | + + + | Ethnic Group | Unknown | + + + Author + + + | Author | [facility] | + + + | Organization | [facility] | + + + | Address | Unknown | + + + | Phone | Unavailable | + + + Support + + + + + | Name | Relationship | Address | Phone | + + + + + | Aaron Latham | ECON | [address] | | | | | [place] | | | | | [place] [address] | | + + + + + Care Team Providers + +------+ + | Care Blast Furnace Checker Name | Role | Phone | + +------+ + | Sarah Carroll MD | PCP | Unavailable | + +------+ + Encounter Details +--------+---------+ + + + | Date | Type | Department | Care Team | Description | +--------+---------+ + + + | 10/27/ | Office | [facility] | Jewel Ulloa MD | Chronic kidney | | 2019 | Visit | [place] [address] | [address] | disease, stage 3 | | | | [address] | [address] [place], [place] | ([facility]) (Primary Dx); | | | | [place] [address] | [id number] | Essential | | | | [phone] | | hypertension with | | | | | | goal blood pressure | | | | | | less than 130/80; | | | | | | Renal neoplasm; | | | | | | Bilateral leg edema; | | | | | | Anemia of chronic | | | | | | renal failure, stage | | | | | | 3 (moderate) (HCC); | | | | | | Persistent | | | | | | proteinuria; Class 3 | | | | | | obesity with | | | | | | alveolar | | | | | | hypoventilation | | | | | | without serious | | | | | | comorbidity with | | | | | | body mass index | | | | | | (BMI) of 45.0 to | | | | | | 49.9 in adult (HCC) | +--------+---------+ + + + Social History [...] + +---------+ + | Alcohol Use | Drinks/We | oz/Week | Comments | | | ek | | | + + +---------+ + | No | 0 | 0.0 | | | | Standard | | | | | drinks or | | | | | | | | | | equivalen | | | | | t | | | + + +---------+ + + + + | Sex Assigned at | Date Recorded | | | | + + + | Not on file | | + + + as of this encounter Last Filed Vital Signs + + + + | Vital Sign | Reading | Time Taken | + + + + | Blood Pressure | 128/68 | 10/27/2018 10:04 AM PDT | + + + + | Pulse | 57 | 10/27/2018 10:04 AM PDT | + + + + | Temperature | - | - | + + + + | Respiratory Rate | - | - | + + + + | Oxygen Saturation | 94% | 10/27/2018 10:04 AM PDT | + + + + | Inhaled Oxygen | - | - | | Concentration | | | + + + + | Weight | 161.8 kg (356 lb 9.6 | 10/27/2018 10:04 AM PDT | | | oz) | | + + + + | Height | 180.3 cm (5' 11") | 10/27/2018 10:04 AM PDT | + + + + | Body Mass Index | 49.74 | 10/27/2018 10:04 AM PDT | + + + + in this encounter Instructions Patient Instructions - Jewel Ulloa MD - 10/27/2018 9:50 AM PDTDiscussions/Recommendatio ns: I discussed today with Mr. Latham the [...] will strictly abide by a low salt diet and will avoid all kinds of NSAIDs for analges ia. Also: I will not change any of his vasoactive meds today. I am unable to ramp up his RAAS blockade because of history of his K being at the upper limit of normal. He will report back to me his home BP readings if they fall outside of the optimal provi ded range. At that time, I will decide whether any change to his vasoactive regimen is reji gamboa. I advised him to exercise regularly but safely & to try to lose weight methodically; He voiced good understanding. I asked him to elevate his legs for 1 hour once a day. He knows that he still needs to b e active and ambulatory carefully as possible. I sent him for a repeat RFP every 2 months. He will continue to F/U with your office regularly. And as your office has been managing his hyperuricemia, anemia, iron deficiency: I will not comment/change substantially anythin g related to those at this time. He will have a RFP, CBC, Urine total uwrnkko-tv-puiblljvxp ratio before he comes back in 6 months.in this encounter Progress Notes Jewel Ulloa MD - 10/27/2018 9:50 AM PDTFormatting of this note may be different from e original. Patient Active Problem List Diagnosis Chronic combined systolic and diastolic congestive heart failure (HCC) Persistent atrial fibrillation (HCC) Mixed hyperlipidemia Essential hypertension with goal blood pressure less than 130/80 Anemia of chronic renal failure, stage 3 (moderate) (HCC) Sleep apnea Paroxysmal atrial fibrillation (HCC) Chronic kidney disease, stage 3 (HCC) Renal neoplasm History of colon cancer Bilateral leg edema Dear Dr Carroll: I saw your patient Mr. Latham in the office today. As you are familiar with his case, I w ill not state his past history in detail. Briefly, he is a 58 y.o. male patient with past h istory as delineated above; he is here to be evaluated for his CKD & its associated complic ations. His most recent sCr & eGFR were 1.85 & 38. He had a left nephrectomy on 06/11/18 for a left renal mass; later found to be angiomyolipo ma. The patient has history of hypertension since 2016; his BP control has been reportedly laura quate. he denies any history of prolonged exposure to NSAIDs or recent exposure to known nep hrotoxins. he denies any recurrent nephrolithiasis or pyelonephritis; he tells me that he's had no history of urinary retention, gross hematuria or dysuria. he has no incontinence symp toms. No symptoms of UTI. No history of frequency, nocturia, weak urinary stream, hesitancy, intermittence, incomplete emptying or urgency; he has 0 nightly nocturia. No history of p assing kidney stones. he has no foamy urine either. his baseline Creatinine is TBD. There is no family history of renal genetic diseases such as PKD. he says that he feels 'good ' today. he denies any blurred vision tinnitus, headache, feve r, chills, or cough. No nausea, vomiting, abdominal pain, diarrhea, melena, or hematochezia . No chest pain, palpitation, loss of consciousness, orthopnea, paroxysmal nocturnal dyspne a, or leg edema. He has postural dizziness at times; no falls; no LOC. The following portions of the patient's history were reviewed and updated as appropriate: a llergies, current medications, past medical history, past social history, past surgical hist ory, family history and problem list. *I also reviewed with him the report of his U/S from 06/2018, showing no evidence of any si gnificant right renal anatomic abnormalities. There was a hematoma at the left nephrectomy s ite. As in History of Present Illness & in Assessment. All the pertinent systems were reviewed a nd were otherwise negative. Current Outpatient Prescriptions Medication Sig Dispense Refill allopurinol (ZYLOPRIM) 100 MG tablet Take 100 mg by mouth daily. atorvastatin (LIPITOR) 80 MG tablet Take 1 tablet by mouth nightly. 30 tablet 11 carvedilol (COREG) 12.5 MG tablet Take 6.25 mg by mouth daily. Cholecalciferol 2000 UNITS CAPS Take 2,000 Units by mouth daily. colchicine 0.6 MG tablet Take 0.6 mg by mouth daily. cyanocobalamin (VITAMIN B-12) 1000 MCG tablet Take 1,000 mcg by mouth daily. ferrous sulfate, 65 FE, 325 (65 FE) MG EC tablet Take 65 mg of iron by mouth 3 (three) times daily with meals. hydrALAZINE (APRESOLINE) 50 MG tablet Take 1 tablet by mouth 3 (three) times daily. 90 tablet 2 isosorbide mononitrate (IMDUR) 60 MG 24 hr tablet Take 60 mg by mouth daily. magnesium oxide (MAG-OX) 400 MG tablet Take 400 mg by mouth daily. spironolactone (ALDACTONE) 50 MG tablet Take 50 mg by mouth daily. torsemide (DEMADEX) 20 MG tablet Take 20 mg by mouth daily. torsemide (DEMADEX) 20 MG tablet Take 20 mg by mouth daily. warfarin (COUMADIN) 5 MG tablet Take 5 mg by mouth daily. No current facility-administered medications for this visit. Physical Exam: BP 128/68 (BP Location: Left upper arm, Patient Position: Sitting) | Pulse 57 | Ht 1.803 m (5' 11") | Wt 161.8 kg (356 lb 9.6 oz) | SpO2 94% | BMI 49.74 kg/m General appearance: Pleasant, not in acute distress. Neck: Supple without tracheal deviation or jugular venous distension. Head and ENT: Head is atraumatic. The oropharynx is without erythema or thrush. Eyes: Anicteric. The extraocular muscle movements are normal. Lungs: Clear to auscultation bilaterally. There are no wheezes. Heart: Regular rate and rhythm without any rub, gallop. No murmur. Abdominal exam: Obese. Soft and nontender with normal bowel sounds. Musculoskeletal: No costovertebral angle tenderness bilaterally. Extremities: Warm to touch with trace leg edema. There is no cyanosis. Skin: There are no rashes, petechiae, or ecchymosis. Neurological: Awake, alert, and oriented to time, place, and person. Normal gross motor po wer. There is no asterixis. Psychiatric: The patient s behavior is normal. Judgment and thought content are normal. Lab Results Component Value Date BUN 35 (A) 10/16/2018 CREATININE 2.07 (A) 10/16/2018 EGFR 33 (A) 10/16/2018 NA 140 10/16/2018 K 4.6 10/16/2018 CL 102 10/16/2018 CO2 24 10/16/2018 CA 9.5 10/16/2018 PHOS 2.5 10/16/2018 ALB 3.9 10/16/2018 HGB 12.2 (A) 10/16/2018 URICACID 8.2 (A) 10/16/2018 WBC 6.7 10/16/2018 HCT 35.3 (A) 10/16/2018 FERRITIN 46.75 10/16/2018 LABIRON 37.5 10/16/2018 LABPROT 428.6 (A) 10/16/2018 Assessment: Mr. Latham is a 58 y.o. male patient with stage III CKD on a background of hypertension. T he CKD preceded his nephrectomy. He had a left sided nephrectomy on 06/11/18 for a left arya l mass; later found to be angiomyolipoma. RENAL FUNCTION: Relatively stable GFR at this time BLOOD PRESSURE: Reports it ok at home BLOOD SUGAR: Reports it okay ELECTROLYTES: His potassium is often at the upper limit of normal ANEMIA: mild VITAMIN D: To be checked thru your office PARATHYROID HORMONE: ok URIC ACID: up PROTEINURIA: mild URINALYSIS: No UTI or hematuria [...] will strictly abide by a low salt diet and will avoid all kinds of NSAIDs for analges ia. Also: I will not change any of his vasoactive meds today. I am unable to ramp up his RAAS blockade because of history of his K being at the upper limit of normal. He will report back to me his home BP readings if they fall outside of the optimal provi ded range. At that time, I will decide whether any change to his vasoactive regimen is warrstephanie ntblake. I advised him to exercise regularly but safely & to try to lose weight methodically; He voiced good understanding. I asked him to elevate his legs for 1 hour once a day. He knows that he still needs to b e active and ambulatory carefully as possible. I sent him for a repeat RFP every 2 months. He will continue to F/U with your office regularly. And as your office has been managing his hyperuricemia, anemia, iron deficiency: I will not comment/change substantially anythin g related to those at this time. He will have a RFP, CBC, Urine total yycubaw-tk-trxrsmqxeo ratio before he comes back in 6 months. 15 minutes of this 25-minute visit was spent in education and counseling. Thank you Dr Carroll for the opportunity to see this patient in F/U today. Please do not hesi palacios to call me at any time with questions or concerns. 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
--- OUTSIDE RECORDS SUMMARY | ~2018-12-11 | XMS | Encounter Summary ---
Demographics + + + | Address | [address] | | | [place] [address] | + + + | Home Phone | | + + + | Preferred Language | Unknown | + + + | Marital Status | Single | + + + | Islam Affiliation | 1077 | + + + [...] + | Toby Latham | ANNA | Unknown | + | + + + + + | Toby Latham | ECON | [address] | + | | | | [address], | | | | | [place] [address] | | + + + + + Care Team Providers + +------+ + | Care Senior Drafter Name | Role | Phone | + +------+ + | Sarah Carroll MD | PCP | Unavailable | + +------+ + Reason for Visit +--------+ + | Reason | Comments | +--------+ + | Other | | +--------+ + Encounter Details +--------+ + + + + | Date | Type | Department | Care Team | Description | +--------+ + + + + | 10/27/ | Telephone | [facility] | Riccardo Malhotra, | Other | | 2018 | | PHYSIATRY [address] | MD [address] | | | | | [place], | [place], [place] | | | | | [place] [address] | [address] | | | | | [phone] | | | +--------+ + + + [...] Description | +--------+---------+ + + + | 12/15/ | Office | Physical Medicine | Riccardo Malhotra, | | | 2019 | Visit | and Rehabilitation | MD [address] | | | | | | [place] | | | | | | [address] | | | | | | | | +--------+---------+ + + + documented as of this encounter Visit Diagnoses Not on filedocumented in this encounter"
--- OUTSIDE RECORDS SUMMARY | ~2018-12-11 | XMS | Encounter Summary ---
Demographics + + + | Address | [address] | | | [place] [address] | + + + | Home Phone | | + + + | Preferred Language | Unknown | + + + | Marital Status | Single | + + + | Roman Catholic Affiliation | 1077 | + + + | Race | Unknown | + + + | Ethnic Group | Unknown | + + + Author + + + | Author | [facility] | | | and [place] | + + + | Organization | [facility] | | | [...] | Toby Latham | ECON | [address] | + | | | | [address], | | | | | [place] [address] | | + + + + + Care Team Providers + +------+ + | Care Waterproofing Machine Operator Name | Role | Phone | + +------+ + | Sarah Carroll MD | PCP | Unavailable | + +------+ + Encounter Details +--------+ + + + + | Date | Type | Department | Care Team | Description | +--------+ + + + + | 12/03/ | Abstract | [facility] [place] | Provider, | | | 2019 | | PHYSIATRY [address] | [address] | | | | | [place], | [place] | | | | | [place] [phone] | [place] [address] | | | | | [phone] | | | +--------+ + + + [...] Visit | and Rehabilitation | MD [address] | | | | | | [place] | | | | | | [address] | | | | | | | | +--------+---------+ + + + documented as of this encounter Visit Diagnoses Not on filedocumented in this encounter"
--- OUTSIDE RECORDS SUMMARY | ~2018-12-11 | XMS | Encounter Summary ---
Demographics + + + | Address | [address] | | | [place] [address] | + + + | Home Phone | | + + + | Preferred Language | Unknown | + + + | Marital Status | Single | + + + | Christianity Affiliation | 1077 | + + + | Race | Unknown | + + + | Ethnic Group | Unknown | + + + Author + + + | Author | [facility] | + + + | Organization | [facility] | + + + | Address | Unknown | + + + | Phone | Unavailable | + + + Support + + + + + | Name | Relationship | Address | Phone | + + + + + | Aaron Latham | ECON | [address] | | | | | [place] | | | | | [place] [address] | | + + + + + Care Team Providers + +------+ + | Care Arc Trimmer Name | Role | Phone | + +------+ + | Sarah Carroll MD | PCP | Unavailable | + +------+ + Encounter Details +--------+---------+ + + + | Date | Type | Department | Care Team | Description | +--------+---------+ + + + | 10/27/ | Office | [facility] | Jewel Ulloa MD | Chronic kidney | | 2019 | Visit | [place] [address] | [address] | disease, stage 3 | | | | [address] | [address] [place], [place] | ([facility]) (Primary Dx); | | | | [place] [address] | [id number] | Essential | | | | [phone] | | hypertension with | | | [...] change to his vasoactive regimen is reji gambao. I advised him to exercise regularly but [...] will have a RFP, CBC, Urine total obictes-or-diragunkpr ratio before he comes back in 6 [...] will have a RFP, CBC, Urine total ihsmwlz-oy-ckblztbkuo ratio before he comes back in 6 [...]
--- OUTSIDE RECORDS SUMMARY | ~2018-12-11 | XMS | Encounter Summary ---
Demographics + + + | Address | [address] | | | [place] [address] | + + + | Home Phone | | + + + | Preferred Language | Unknown | + + + | Marital Status | Single | + + + | Taoist Affiliation | 1077 | + + + | Race | Unknown | + + + | Ethnic Group | Unknown | + + + Author + + + | Author | [facility] | + + + | Organization | [facility] | + + + | Address | Unknown | + + + | Phone | Unavailable | + + + Support + + + + + | Name | Relationship | Address | Phone | + + + + + | Aaron Latham | ECON | [address] | | | | | [place] | | | | | [place] [address] | | + + + + + Care Team Providers + +------+ + | Care Undercollar Baster Name | Role | Phone | + +------+ + | Sarah Carroll MD | PCP | Unavailable | + +------+ + Reason for Visit + + + | Reason | Comments | + + + | Labs Only | 10/16/18 | + + + Encounter Details +--------+ + + + + | Date | Type | Department | Care Team | Description | +--------+ + + + + | 10/20/ | Documentati | [facility] | [facility] Only (10/16/18) | | 2019 | on Only | [place] [address] | [address] | | | | | [address] | | | | | | [place] [address] | | | | | | [phone] | | | +--------+ + + + [...] + + + as of this encounter Plan of Treatment Not on fileas of this encounter Procedures + +--------+ + + + | Procedure Name | Priori | Date/Time | Associated Diagnosis | Comments | | | ty | | | | + +--------+ + + + | TSH REFLEX | Routin | 10/16/2018 | | Results for this | | | e | 11:20 AM | | procedure are in the | | | | PST | | results section. | + +--------+ + + + | IRON AND TIBC | Routin | 10/16/2018 | | Results for this | | | e | 11:20 AM | | procedure are in the | | | | PST | | results section. | + +--------+ + + + in this encounter Results Iron panel (10/16/2018 11:20 AM) + +--------+ + + | Component | Value | Ref Range | Performed At | + +--------+ + + | IRON | 114.98 | 37 - 160 | | + +--------+ + + | IRON % SAT | 37.5 | 20 - 55 | | + +--------+ + + | TIBC | 307 | 245 - 400 | | + +--------+ + + + + | Specimen | + + | Blood | + + TSH reflex (10/16/2018 11:20 AM) + +-------+ + + | Component | Value | Ref Range | Performed At | + +-------+ + + | TSH REFLEX | 3.35 | 0.270 - 4.20 | | + +-------+ + + in this encounter Visit Diagnoses Not on filein this encounter"
--- OUTSIDE RECORDS SUMMARY | ~2018-12-11 | XMS | Clinical Summary ---
Demographics + + + | Address | [address] | | | [place] [address] | + + + | Home Phone | | + + + | Preferred Language | Unknown | + + + | Marital Status | Single | + + + | Cheondoism Affiliation | 1077 | + + + | Race | Unknown | + + + | Ethnic Group | Unknown | + + + Author + + + | Author | [facility] | + + + | Organization | [facility] | + + + | Address | Unknown | + + + | Phone | Unavailable | + + + Support + + + + + | Name | Relationship | Address | Phone | + + + + + | Lily Latham | ECON | [address] | | | | | [place] | | | | | [place] [address] | | + + + + + Care Team Providers + +------+ + | Care Cabinet Worker Name | Role | Phone | [...] + + +--------+---------+------+------+-------+ | allopurinol | Take 100 mg by mouth | | | | | Activ | | (ZYLOPRIM) 100 MG | 2 (two) times | | | | | e | | tablet | daily. | | | | | | + [...] 1 tablet by | | 0 | 03 | | Activ | | Fe) MG [...] | | | | + + +--------+---------+------+------+-------+ Active Problems + + + | Problem | Noted Date | + + + | History of [...] | improved, ACEI sensitive. 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 | | | | | | diastolic congestive | | | | | | heart failure | | | | | | ([facility]); Bilateral leg | | | | | | edema; Mixed | | | | | | hyperlipidemia; | | | | | | Chronic kidney | | | | | | disease, stage 3 | | | | | | ([facility]); Class 3 | | | | | [...] | | | | 49.9 in adult ([facility]); | | | | | | Obstructive sleep | | | | | | apnea syndrome | +--------+ + + + + | 10/29/ | Documentati | | Emmy Cano MA | Other ([facility] | | 2019 | on Only | | | PCP Notes w/ Labs ) | +--------+ + + + + | 10/28/ | Documentati | | Callum, | Other ( | | 2019 | on Only | | CARLY Jay | Retroperitoneal | | | | | | 06/27/18) | +--------+ + + + + | 10/27/ | Office | | Jewel Ulloa MD | Chronic kidney | | 2019 | Visit | | | disease, stage 3 | | | | | | (HCC) (Primary Dx); | | | | | | Essential [...] | | 49.9 in adult (HCC) | +--------+ + + + + | 10/27/ | Telephone | | Callum, | | | 2018 | | | CARLY Jay | | +--------+ + + + + | 10/20/ | Documentati | | Callum | Jerald Only (10/16/18) | | 2018 | on Only | | CARLY Jay | | +--------+ + + + + | 10/20/ | Orders Only | | [place] | Essential | | 2018 | | | CARLY Jay | hypertension with | | | | | | goal blood pressure | | | | | | less than 130/80; | | | | | | Anemia of chronic | | | | | | renal failure, stage | | | | | | 3 (moderate) ([facility]); | | | | | | Renal neoplasm | +--------+ + + + + from Last 3 Months Family History + + +------+ + | [...] + + + | Blood Pressure | 120/68 | 10/30/2018 1:16 PM PDT | + + + + | Pulse | 66 | 10/30/2018 1:16 PM PDT | + + + + | Temperature | 36.1 C (97 F) | 10/01/2017 1:07 PM PST | + + + + | Respiratory Rate | 20 | 10/30/2018 1:16 PM PDT | + + + + | Oxygen Saturation | 96% | 10/30/2018 1:16 PM PDT | + + + + | Inhaled Oxygen | - | - | | Concentration | | | + + + + | Weight | 162.3 kg (357 lb | 10/30/2018 1:16 PM PDT | | | 14.4 oz) | | + + + + | Height | 180.3 cm (5' 11") | 10/30/2018 1:16 PM PDT | + + + + | Body Mass Index | 49.92 | 10/30/2018 1:16 PM PDT | + [...] | | | | (Season Ended) | 9 | | | + + + + + | Colon Cancer | | 05/15/2016 (Received Elsewhere) | | | Screening | 6 | | | | (Colonoscopy) | | | | + + + + + Procedures + +--------+ + + + | Procedure Name | Priori | Date/Time | Associated Diagnosis | Comments | | | ty | | | | + +--------+ + + + | EKG STANDARD 12 LEAD | Routin | 10/30/2018 | Paroxysmal atrial | Results for this | | | e | 1:24 PM | fibrillation (HCC) | procedure are in the | | | | PDT | Essential | results section. | | | | | hypertension with | | | | | | goal blood pressure | | | | | | less than 130/80 | | | | | | Chronic combined | | | | | | systolic and | | | | | | diastolic congestive | | | | | | heart failure (HCC) | | | | | | Bilateral leg | | | | | | edema Mixed | | | | | | hyperlipidemia | | | | | | Chronic kidney | | | | | | disease, stage 3 | | | | | | ([facility]) Class 3 | | | | | [...] | | | | 49.9 in adult ([facility]) | | | | | | Obstructive sleep | | | | | | apnea syndrome | | + +--------+ + + + [...] URIC ACID | Routin | 10/16/2018 | Essential | Results for this | | | e | 11:20 AM | hypertension with | procedure are in the | | | | PST | goal blood pressure | results section. | | | | | less than 130/80 | | | | | | Anemia of chronic | | | | | | renal failure, stage | | | | | | 3 (moderate) (HCC) | | | | | | Renal neoplasm | | + +--------+ + + + | RENAL FUNCTION PANEL | Routin | 10/16/2018 | Essential | Results for this | | | e | 11:20 AM | hypertension with | procedure are in the | | | | PST | goal blood pressure | results section. | | | | | less than 130/80 | | | | | | Anemia of chronic | | | | | | renal failure, stage | | | | | | 3 (moderate) (HCC) | | | | | | Renal neoplasm | | + +--------+ + + + | CBC W/AUTO DIFF | Routin | 10/16/2018 | Essential | Results for this | | (REFLEX TO MANUAL) | e | 11:20 AM | hypertension with | procedure are in the | | | | PST | goal blood pressure | results section. | | | | | less than 130/80 | | | | | | Anemia of chronic | | | | | | renal failure, stage | | | | | | 3 (moderate) ([facility]) | | | | | | Renal neoplasm | | + +--------+ + + + | PROTEIN / CREATININE | Routin | 10/16/2018 | Essential | Results for this | | RATIO, URINE | e | 11:20 AM | hypertension with | procedure are in the | | | | PST | goal blood pressure | results section. | | | | | less than 130/80 | | | | | | Anemia of chronic | | | | | | renal failure, stage | | | | | | 3 (moderate) ([facility]) | | | | | | Renal neoplasm | | + +--------+ + + + | FERRITIN | Routin | 10/16/2018 | Essential | Results for this | | | e | 11:20 AM | hypertension with | procedure are in the | | | | PST | goal blood pressure | results section. | | | | | less than 130/80 | | | | | | Anemia of chronic | | | | | | renal failure, stage | | | | | | 3 (moderate) (HCC) | | | | | | Renal neoplasm | | + +--------+ + + + | URINALYSIS (REFLEX | Routin | 10/16/2018 | Essential | Results for this | | TO MICRO) | e | 11:20 AM | hypertension with | procedure are in the | | | | PST | goal blood pressure | results section. | | | | | less than 130/80 | | | | | | Anemia of chronic | | | | | | renal failure, stage | | | | | | 3 (moderate) (HCC) | | | | | | Renal neoplasm | | + +--------+ + + + | PTH INTACT NO | Routin | 10/16/2018 | Essential | Results for this | | CALCIUM | e | 11:20 AM | hypertension with | procedure are in the | | | | PST | goal blood pressure | results section. | | | | | less than 130/80 | | | | | | Anemia of chronic | | | | | | renal failure, stage | | | | | | 3 (moderate) (HCC) | | | | | | Renal neoplasm | | + +--------+ + + + from Last 3 Months Results EKG STANDARD 12 LEAD (10/30/2018 1:24 PM) + + + + + | Component | Value | Ref Range | Performed At | + + + + + | Ventricular Rate | 66 | BPM | [facility] | + + + + + | Atrial Rate | 66 | BPM | [facility] | + + + + + | P-R Interval | 250 | ms | [facility] | + + + + + | QRS Duration | 156 | ms | [facility] | + + + + + | Q-T Interval | 454 | ms | [facility] | + + + + + | QTC Calculation | 475 | ms | [facility] | | (Bezet) | | | | + + + + + | Calculated P [place] | 78 | degrees | [facility] | + + + + + | Calculated R [place] | -79 | degrees | [facility] | + + + + + | Calculated T [place] | 44 | degrees | [facility] | + + + + + | Diagnosis | Please refer to | | [facility] | | | Providers office visit | | | | | note for Providers | | | | | Interpretation.Confirmed | | | | | by [facility] [employer] Read Only, | | | | | [facility] Obdulia ([id number]), | | | | | associate entertainment editor Valentín Oates | | | | | ([id number]) on 10/30/2018 | | | | | 1:33:14 PM | | | + + + + + + + + + + | Performing | Address | City/State/Zipcode | Phone Number | | Organization | | | | + + + + + | [facility] | [address] | [place] [address] | | + + + + + TSH reflex (10/16/2018 11:20 AM) + +-------+ + + | Component | Value | Ref Range | Performed At | + +-------+ + + | TSH REFLEX | 3.35 | 0.270 - 4.20 | | + +-------+ + + Iron panel (10/16/2018 11:20 AM) + +--------+ [...] + + | Blood | + + Protein / creatinine ratio, urine (10/16/2018 11:20 AM) + + + + + | Component | Value | Ref Range | Performed At | + + + + + | UR | 428.6 (A) | 0 - 150 | [facility] | | PROTEIN/CREATININE | | | LABORATORY | + + + + + + + | Specimen | + + | Urine - Urine, | | Unspecified Source | + + + + + + + | Performing | Address | City/State/Zipcode | Phone Number | | Organization | | | | + + + + + | [facility] | [address] | [place] [address] | [phone] | | LABORATORY | [address] | | | + + + + + Urinalysis (reflex to micro) (10/16/2018 11:20 AM) + + + + + | Component | Value | Ref Range | Performed At | + + + + + | COLOR UA | Yellow | | [facility] | | | | | LABORATORY | + + + + + | CLARITY | Clear | | [facility] | | | | | LABORATORY | + + + + + | SPECIFIC | 1.006 | 1.005 - 1.030 | [facility] | | GRAVITY,URINE | | | LABORATORY | + + + + + | LEUKOCYTE ESTERASE | Negative | | [facility] | | | | | LABORATORY | + + + + + | NITRITE | Negative | | [facility] | | | | | LABORATORY | + + + + + | UROBILINOGEN | Normal | | [facility] | | | | | LABORATORY | + + + + + | PROTEIN | Negative | | [facility] | | | | | LABORATORY | + + + + + | PH,URINE | 5 | 5 - 9 | [facility] | | | | | LABORATORY | + + + + + | BLOOD | Negative | | [facility] | | | | | LABORATORY | + + + + + | KETONES | Negative | | [facility] | | | | | LABORATORY | + + + + + | BILIRUBIN | Negative | | [facility] | | | | | LABORATORY | + + + + + | GLUCOSE | Negative | | [facility] | | | | | LABORATORY | + + + + + + + | Specimen | + + | Urine | + + + + + + + | Performing | Address | City/State/Zipcode | Phone Number | | Organization | | | | + + + + + | [facility] | [address] | [place] [address] | [phone] | | LABORATORY | [address] | | | + + + + + CBC W/Auto Diff (Reflex to Manual) (10/16/2018 11:20 AM) + + + + + | Component | Value | Ref Range | Performed At | + + + + + | WBC | 6.7 | 4.5 - 11.0 10^3/mL | [facility] | | | | | LABORATORY | + + + + + | RBC | 3.63 (A) | 4.3 - 5.7 10^6/ L | [facility] | | | | | LABORATORY | + + + + + | HGB | 12.2 (A) | 13.5 - 18.0 g/dL | [facility] | | | | | LABORATORY | + + + + + | HCT | 35.3 (A) | 41 - 50 % | [facility] | | | | | LABORATORY | + + + + + | MCV | 97.4 | 81 - 99 fL | [facility] | | | | | LABORATORY | + + + + + | MCH | 34 (A) | 27 - 33 pg | [facility] | | | | | LABORATORY | + + + + + | MCHC | 35 | 30 - 36 g/dL | [facility] | | | | | LABORATORY | + + + + + | PLT | 300 | 140 - 440 K/ L | [facility] | | | | | LABORATORY | + + + + + | RDW SD | | % | [facility] | | | | | LABORATORY | + + + + + | MPV | | fL | [facility] | | | | | LABORATORY | + + + + + | DIFF TYPE | | | [facility] | | | | | LABORATORY | + + + + + | NEUTROPHILS | | % | [facility] | | | | | LABORATORY | + + + + + | LYMPHOCYTES | | % | [facility] | | | | | LABORATORY | + + + + + | MONOCYTES | | % | [facility] | | | | | LABORATORY | + + + + + | EOSINOPHILS | | % | [facility] | | | | | LABORATORY | + + + + + | BASOPHILS | | % | [facility] | | | | | LABORATORY | + + + + + | NEUTROPHILS ABS | | / L | [facility] | | | | | LABORATORY | + + + + + | LYMPHOCYTES ABS | | / L | [facility] | | | | | LABORATORY | + + + + + | MONOCYTES ABS | | / L | [facility] | | | | | LABORATORY | + + + + + | EOSINOPHILS ABS | | / L | [facility] | | | | | LABORATORY | + + + + + | BASOPHILS ABS | | / L | [facility] | | | | | LABORATORY | + + + + + + + | Specimen | + + | Blood | + + + + + + + | Performing | Address | City/State/Zipcode | Phone Number | | Organization | | | | + + + + + | [facility] | [address] | [place] [address] | [phone] | | LABORATORY | [address] | | | + + + + + Uric acid (10/16/2018 11:20 AM) + +---------+ + + | Component | Value | Ref Range | Performed At | + +---------+ + + | URIC ACID | 8.2 (A) | 4.4 - 7.6 | [facility] | | | | | LABORATORY | + +---------+ + + + + | Specimen | + + | Blood | + + + + + + + | Performing | Address | City/State/Zipcode | Phone Number | | Organization | | | | + + + + + | [facility] | [address] | [place] [address] | [phone] | | LABORATORY | [address] | | | + + + + + PTH intact no calcium (10/16/2018 11:20 AM) + +-------+ + + | Component | Value | Ref Range | Performed At | + +-------+ + + | PTH INTACT NO | 59.34 | 15 - 65 pg/mL | [facility] | | CALCIUM | | | LABORATORY | + +-------+ + + + + | Specimen | + + | Blood | + + + + + + + | Performing | Address | City/State/Zipcode | Phone Number | | Organization | | | | + + + + + | [facility] | [address] | [place] [address] | [phone] | | LABORATORY | [address] | | | + + + + + Ferritin (10/16/2018 11:20 AM) + +-------+ + + | Component | Value | Ref Range | Performed At | + +-------+ + + | FERRITIN | 46.75 | 30 - 400 ng/mL | [facility] | | | | | LABORATORY | + +-------+ + + + + | Specimen | + + | Blood | + + + + + + + | Performing | Address | City/State/Zipcode | Phone Number | | Organization | | | | + + + + + | [facility] | [address] [facility] | [place] [address] | [phone] | | LABORATORY | [address] | | | + + + + + Renal function panel (10/16/2018 11:20 AM) + + + + + | Component | Value | Ref Range | Performed At | + + + + + | GLUCOSE | 103 (A) | 70 - 100 mg/dL | [facility] | | | | | LABORATORY | + + + + + | BUN | 35 (A) | 6 - 23 mg/dL | [facility] | | | | | LABORATORY | + + + + + | CREATININE | 2.07 (A) | 0.70 - 1.33 mg/dL | [facility] | | | | | LABORATORY | + + + + + | PHOSPHORUS | 2.5 | 2.5 - 5.0 mg/dL | [facility] | | | | | LABORATORY | + + + + + | Albumin | 3.9 | 3.5 - 5.0 | [facility] | | | | | LABORATORY | + + + + + | SODIUM | 140 | 132 - 143 mmol/L | [facility] | | | | | LABORATORY | + + + + + | POTASSIUM | 4.6 | 3.6 - 5.1 mmol/L | [facility] | | | | | LABORATORY | + + + + + | CHLORIDE | 102 | 95 - 112 mmol/L | [facility] | | | | | LABORATORY | + + + + + | CO2 | 24 | 19 - 31 mmol/L | [facility] | | | | | LABORATORY | + + + + + | ANION GAP AGAP | 18.6 | 7 - 21 mmol/L | [facility] | | | | | LABORATORY | + + + + + | GFR MDRD Non Af Amer | | | [facility] | | | | | LABORATORY | + + + + + | Phosphorus,Inorganic | | | [facility] | | | | | LABORATORY | + + + + + | BUN/CREAT | 16.9 | 6.0 - 28.6 | [facility] | | | | | LABORATORY | + + + + + | CALCIUM | 9.5 | 8.5 - 10.3 mg/dL | [facility] | | | | | LABORATORY | + + + + + | EGFR | 33 (A) | 60 - 140 mg/dL | [facility] | | | | | LABORATORY | + + + + + + + | Specimen | + + | Blood | + + + + + + + | Performing | Address | City/State/Zipcode | Phone Number | | Organization | | | | + + + + + | [facility] | [address] [facility] | [place] [address] | [phone] | | LABORATORY | [address] | | | + + + + + from Last 3 Months Insurance + +--------+ +------+-------+ + | Payer | Benefi | Subscriber | Type | Phone | Address | | | t Plan | ID | | | | | | / | | | | | | | Group | | | | | + +--------+ +------+-------+ + | MEDICAID | [employer] | [id number] | | | [address] | | | N | | | | [place], [place] | | | [place] | | | | [address] | | | [employer] | | | | | + +--------+ [...] Self | [birth year] | Home: | [address] | | | al/Fam | | 1960 | [phone] [address] [place], | | | [place] | | | [address] | [place] [address] | + +--------+ +--------+ + +
--- OUTSIDE RECORDS SUMMARY | ~2018-12-11 | XMS | Encounter Summary ---
Demographics + + + | Address | [address] | | | [place] [address] | + + + | Home Phone | | + + + | Preferred Language | Unknown | + + + | Marital Status | Single | + + + | Moravian Affiliation | 1077 | + + + | Race | Unknown | + + + | Ethnic Group | Unknown | + + + Author + + + | Author | [facility] | | | and [place] | + + + | Organization | [facility] | [...] | Toby Latham | ECON | [address] | + | | | | [address], | | | | | [place] [address] | | + + + + + Care Team Providers + +------+ + | Care Chaser Helper Name | Role | Phone | [...] PHYSIATRY [address] | MD [address] | | | | | [place], | [place], [place] | | | | | [place] [address] | [address] | | | | | [phone] | | | +--------+ + + + [...] [place] | | | | | | [address] | | | | | | | | +--------+---------+ + + + documented as of this encounter Visit Diagnoses Not on filedocumented in this encounter"
--- OUTSIDE RECORDS SUMMARY | ~2018-12-11 | XMS | Encounter Summary ---
Demographics + + + | Address | [address] | | | [place] [address] | + + + | Home Phone [...] + + + | Author | [facility] [employer] [facility] [facility] | + + + | Organization | [facility] | + + + | Address | Unknown | + + + | Phone | Unavailable | + + + Support + + + + + | Name | Relationship | Address | Phone | + + + + + | Aaron Latham | ECON | [address] | | | | | [place] | | | | | [place] [address] | | + + + + + Care Team Providers + +------+ + | Care Montessori Teacher Name | Role | Phone | + +------+ + | Sarah Carroll MD | PCP | Unavailable | + +------+ + Encounter Details +--------+ + + + + | Date | Type | Department | Care Team | Description | +--------+ + + + + | 10/27/ | Telephone | [facility] | [place], | | | 2018 | | [address] | [place] | | | | | [address] | | | | | | [place] [address] | | | | | | [phone] | | | +--------+ + + + [...] as of this encounter Plan of Treatment + +--------+ + + | Name | Priori | Associated Diagnoses | Order Schedule | | | ty | | | + +--------+ + + | Renal function panel | Routin | Essential | Every 8 Weeks for 2 | | | e | hypertension with | Occurrences starting | | | | goal blood pressure | 10/27/2018 until | | | | less than 130/80 | 10/28/2019 | | | | Chronic kidney | | | | | disease, stage 3 | | | | | ([facility]) Renal | | | | | neoplasm Persistent | | | | | proteinuria | | + +--------+ + + | Renal function panel | Routin | Essential | Expected: | | | e | hypertension with | 04/29/2019, Expires: | | | | goal blood pressure | 10/28/2019 | | | | less than 130/80 | | | | | Chronic kidney | | | | | disease, stage 3 | | | | | ([facility]) Renal | | | | | neoplasm Persistent | | | | | proteinuria | | + +--------+ + + | CBC W/Auto Diff (Reflex to | Routin | Essential | Expected: | | Manual) | e | hypertension with | 04/29/2019, Expires: | | | | goal blood pressure | 10/28/2019 | | | | less than 130/80 | | | | | Chronic kidney | | | | | disease, stage 3 | | | | | ([facility]) Renal | | | | | neoplasm Persistent | | | | | proteinuria | | + +--------+ + + | Protein / creatinine ratio, urine | Routin | Essential | Expected: | | | e | hypertension with | 04/29/2019, Expires: | | | | goal blood pressure | 10/28/2019 | | | | less than 130/80 | | | | | Chronic kidney | | | | | disease, stage 3 | | | | | ([facility]) Renal | | | | | neoplasm Persistent | | | | | proteinuria | | + +--------+ + + as of this encounter Visit Diagnoses + + | Diagnosis | + + | Essential hypertension with goal blood pressure less than 130/80 - Primary | + + | Chronic kidney disease, stage 3 (HCC) | + + | Renal neoplasm | + + | 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
--- OUTSIDE RECORDS SUMMARY | ~2018-12-11 | XMS | Encounter Summary ---
Demographics + + + | Address | [address] | | | [place] [address] | + + + | Home Phone [...] | Toby Latham | ECON | [address] | + | | | | [address], | | | | | [place] [address] | | + + + + + Care Team Providers + +------+ + | Care Bat Person Name | Role | Phone | + [...] [address] | | | | | [place], | [place] | | | | | [place] [address] | [place] [address] | | | | | [phone] | | | +--------+ + + + [...] [place] | | | | | | [address] | | | | | | | | +--------+---------+ + + + documented as of this encounter Visit Diagnoses Not on filedocumented in this encounter"
--- OUTSIDE RECORDS SUMMARY | ~2018-12-11 | XMS | Encounter Summary ---
Demographics + + + | Address | [address] | | | [place] [address] | + + + | Home Phone [...] + + + | Author | [employer] | + + + | Organization | [employer] | + + + | Address | Unknown | + + + | Phone | Unavailable | + + + Support + + + + + | Name | Relationship | Address | Phone | + + + + + | Aaron Latham | ECON | [address] | | | | | [place] | | | | | [place] [address] | | + + + + + Care Team Providers + +------+ + | Care Continuum Of Care Manager Name | Role | Phone | + +------+ + | Sarah Carroll MD | PCP | Unavailable | + +------+ + Reason for Visit + + + | Reason | Comments | + + + | Follow-up | 6 month | + + + Consult and Treat (Routine) + +--------+ + + + + | Status | Reason | Specialty | Diagnoses / | Referred By | Referred To | | | | | Procedures | Contact | Contact | + +--------+ + + + + | Authorized | | Nurse | Diagnoses | [place] | Sixto, | | | | Practitioner | Chronic | MD Sarah | [place], | | | | / Cardiology | systolic | [address] | [employer] | | | | | (congestive) | [place] | Obdulia Moralez | | | | | heart | [place], | [place] | | | | | failure | [place] [address] | [place] | | | | | (HCC) 6 | Phone: | [phone] Phone: | | | | | month f/u- | [phone] | [phone] | | | | | New | Fax: | Fax: | | | | | Insurance, | [phone] | [phone] | | | | | had power | | | | | | | outage and | | | | | | | couldn't | | | | | | | scan the | | | | | | | card or | | | | | | | enter it | | | | | | | Procedures | | | | | | | CRD FOLLOW | | | | | | | UP | | | + +--------+ + + + + Encounter Details +--------+---------+ + + + | Date | Type | Department | Care Team | Description | +--------+---------+ + + + | 03/21/ | Office | [facility] | Ileana Henson | Paroxysmal atrial | | 2019 | Visit | Cardiology [place] | [place] [address] | fibrillation (HCC) | | | | [address] | Obdulia Guerra F | (Primary Dx); | | | | [address] | [place] [address] | Essential | | | | [place] [address] | [phone] | hypertension with | | | | [phone] | | goal blood pressure | | | | | | less than 130/80; | | | | | | Chronic combined | | | | | | systolic and | | | | | | diastolic congestive | | | | | | heart failure | | | | | | ([facility]); Bilateral leg | | | | | | edema; Mixed | | | | | | hyperlipidemia; | | | | | | Chronic kidney | | | | | | disease, stage 3 | | | | | | ([facility]); Class 3 | | | [...] | | | | 49.9 in adult ([facility]); | | | | | | Obstructive sleep | | | | | | apnea syndrome | +--------+---------+ + + + Social History [...] PM PDT | + + + + in this encounter Instructions Patient Instructions - Ileana Henson ARNP - 10/30/2018 1:00 PM PDTYou seem stable overall today , but weight up , and think you are deconditioned continue to work on making better food choices, and limiting portion sizes, and to try and go to [facility] and see if can find something you can exercise on comfortably, and aim for 30 min utes per day to get back in shape, I have ordered a lipid panel to be done the next time you have blood work for Dr. Ulloa or Dr. Carroll. See me back in 6 months, but sooner if needed, Low-Salt Diet This diet removes foods that are high in salt. It also limits the amount of salt you use wh en cooking. It is most often used for people with high blood pressure, edema (fluid retentio n), and kidney, liver, or heart disease. Table salt contains the mineral sodium. Your body needs sodium to work normally. But too mu ch sodium can make your health problems worse. Your healthcare provider is recommending a lo w-salt (also called low-sodium) diet for you. Your total daily allowance of salt is1,500 t o 2,300milligrams (mg). It is less than 1 teaspoon of table salt. This means you can have only to 700mg of sodium at each meal.People with certain health problems shou ld limit salt intake to the lower end of the recommended range. When you cook, don t add much salt. If you can cook without using salt, even better. Don t add salt to your food at the table. When shopping, read food labels. Salt is often called sodium on the label. Choose foods jenise t are salt-free, low salt, or very low salt. Note that foods with reduced salt may notlowe r your salt intake enough. Beans, potatoes, and pasta Ok: Dry beans, split peas, lentils, potatoes, rice, macaroni, pasta, spaghetti without adde d salt Avoid: Potato chips, tortilla chips, and similar products Breads and cereals Ok: Low-sodium breads, rolls, cereals, and cakes; low-salt crackers, matzo crackers Avoid: Salted crackers, pretzels, popcorn, Korean toast, pancakes, muffins Dairy Ok: Milk, chocolate milk, hot chocolate mix, low-salt cheeses, and yogurt Avoid: Processed cheese and cheese spreads; Roquefort, Camembert, and cottage cheese; butte rmilk, instant breakfast drink Desserts Ok: Ice cream, frozen yogurt, juice bars, gelatin, cookies and pies, sugar, honey, jelly, h donis candy Avoid: Most pies, cakes and cookies prepared or processed with salt; instant pudding Drinks Ok: Tea, coffee, fizzy (carbonated) drinks, juices Avoid: Flavored coffees, electrolyte replacement drinks, sports drinks Meats Ok: All fresh meat, fish, poultry, low-salt tuna, eggs, egg substitute Avoid: Smoked, pickled, brine-cured, or salted meats and fish. Thisincludes pichardo, chippe d beef, corned beef, hot dogs, deli meats, ham, kosher meats, salt pork, sausage, canned jeremiah a, salted codfish, smokedsalmon, hernández, sardines, or anchovies. Seasonings and spices Ok: Most seasonings are okay. Good substitutes for salt include: fresh herb blends, hot ada ce, lemon, garlic, friend, vinegar, dry mustard, parsley, cilantro, horseradish, tomato paste , regular margarine, mayonnaise, unsalted butter, cream cheese, vegetable oil, cream, low-sa lt salad dressing and gravy. Avoid: Regular ketchup, relishes, pickles, soy sauce, teriyaki sauce, Worcestershire sauce, BBQ sauce, tartar sauce, meat tenderizer, chili sauce, regular gravy, regular salad dressin g, salted butter Soups Ok: Low-salt soups and broths made with allowed foods Avoid: Bouillon cubes, soups with smoked or salted meats, regular soup and broth Vegetables Ok: Most vegetables are okay; also low-salt tomato and vegetable juices Avoid: Sauerkraut and other brine-soaked vegetables; pickles and other pickled vegetables; tomato juice, olives Date Last Reviewed: 03/12/[id number] [employer]. [address] [place] [address], [place] [address]. All righ ts reserved. This information is not intended as a substitute for professional medical care. Always follow your healthcare professional's instructions. in this encounter Progress Notes Ileana Henson, [place] - 10/30/2018 1:00 PM PDTFormatting of this note may be differen t from the original. Date of visit: 10/30/2018 Primary Care Physician: Sarah Carroll CHIEF COMPLAINT: Chief Complaint Patient presents with Follow-up 6 month HISTORY OF PRESENT ILLNESS: Mr. Aaron Latham is a 58 -year-old man who is here today for 6 month follow-up. He has a history of heart failure, persistent atrial fibrillation, hypertension, mixed hyperlipidemia, chronic kidney disease stage II and renal problems noted to be EAMON sensitiv e. He is managed on Coumadin for his [id number] 2 VASC score of 2 which is managed by the [facility]. He was hospitalized in July 2017 at [facility] for acute GI bleeding, where a mass [...] surgery 08/16/2017 by , colorectal surgeon in [place], with low anterior resection with open approach, did not require any Chemo or radiation, He also followed up Dr. 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 They continue to monitor his right kidney for angio myolipoma. His current and previous testing and procedures are detailed below He continues to be followed by Dr. Ulloa for his chronic kidney disease, and last seen by him on October 27, in no reviewed, and no changes to medications. He reports today that overall he has been stable, though troubled by gout, joint stiffnes s, and weight increased again. His lowest weight was 324 pounds after he had been hospitali zed, but has struggled to remain less than 350 pounds since then. He attends physical therapy twice a week, but is not really getting any other exercise, i t has been trying to improve his diet. He reports his Coumadin continues monitored by the Coumadin clinic, and his INRs have bee n therapeutic and stable, and denies any bleeding. He also reports that his sleep apnea is now controlled and he wears CPAP nightly. He denies any chest pain, palpitations, dyspnea, dizziness,or syncope. He also denies an y signs or symptoms of stroke or TIA.He reports lower legs edema resolved. He did not bring brought his medications to the clinic today and I reviewed his medicatio n list with him personally. REVIEW OF SYSTEMS: Negative except for pertinent items noted in HPI. Constitutional: Reports ongoing mild fatigue . Denies unexplained weight loss. Appetite i s good. Weight is stable . Denies night sweats fevers or chills HENT: Denies nosebleeds. Denies hearing problems. Denies dysphagia Eyes: Denies visual disturbance or double vision. Denies history of cataracts or glaucoma or macular degeneration. Respiratory/Sleep:: Sleep apnea with nightly CPAP use, followed by Dr. Hitchcock. Denies coug h and dyspnea. Denies hemoptysis or excessive sputum production. Denies orthopnea, or PND . Cardiovascular: Intermittent lower extremity edema now resolved. Denies chest pain, palpi tations . Denies history of rheumatic fever. Denies claudication . Gastrointestinal:Hx GI Bleed ,05/2017, new Dx colon cancer with surgery 08/2017, . occasio nal . Symptoms GERD . Denies nausea, vomiting, abdominal pain and blood in stool. Genitourinary: left nephrectomy 06/11/2018 for renal mass, later found to be angiomyolipom a,,followed by Dr. Cross in [place] Denies hematuria. 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 Skin: Denies color change. Denies rash or [...] have low frustration threshold Vaccines: Current on 2018 flu vaccine. Current on pneumonia vaccine. Habits/Social : Denies history of smoking. Quit chewing tobacco . Denies EtOH use. Drinks 2-3 sodas daily . Denies recreational or illicit drug use. Exercises sporadically . 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 Lives with his mom, and older brother Outpatient Medications Prior to Visit Medication Sig Dispense Refill allopurinol (ZYLOPRIM) 100 MG tablet Take 100 mg by mouth 2 (two) times daily. atorvastatin (LIPITOR) 80 MG tablet Take 1 tablet by mouth nightly. 30 tablet 11 carvedilol (COREG) 12.5 MG tablet Take 6.25 mg by mouth daily. Cholecalciferol 2000 UNITS CAPS Take 2,000 Units by mouth daily. colchicine 0.6 MG tablet Take 0.6 mg by mouth daily. cyanocobalamin (VITAMIN B-12) 1000 MCG tablet Take 1,000 mcg by mouth daily. hydrALAZINE (APRESOLINE) 50 MG tablet Take 1 tablet by mouth 3 (three) times daily. 90 tablet 2 magnesium oxide (MAG-OX) 400 MG tablet Take 400 mg by mouth daily. spironolactone (ALDACTONE) 50 MG tablet Take 50 mg by mouth daily. torsemide (DEMADEX) 20 MG tablet Take 20 mg by mouth daily. warfarin (COUMADIN) 5 MG tablet Take 5 mg by mouth daily. ferrous sulfate, 65 FE, 325 (65 FE) MG EC tablet Take 65 mg of iron by mouth 3 (three) times daily with meals. isosorbide mononitrate (IMDUR) 60 MG 24 hr tablet Take 60 mg by mouth daily. torsemide (DEMADEX) 20 MG tablet Take 20 mg by mouth daily. No facility-administered medications prior to visit. PHYSICAL EXAM: Wt Readings from Last 3 Encounters: 10/30/18 162.3 kg (357 lb 14.4 oz) 10/27/18 161.8 kg (356 lb 9.6 oz) 07/28/18 152.8 kg (336 lb 12.8 oz) Temp Readings from Last 3 Encounters: 10/01/17 97 F (36.1 C) (Oral) 09/05/17 97.9 F (36.6 C) (Oral) 02/06/17 97.9 F (36.6 C) BP Readings from Last 3 Encounters: 10/30/18 120/68 10/27/18 128/68 07/28/18 122/62 Pulse Readings from Last 3 Encounters: 10/30/18 66 10/27/18 57 07/28/18 64 GENERAL: Well developed, well nourished, in [...] murmurs, rubs or gall ops noted. ABDOMEN: Smaller Pannus, well healed abd scar Soft, nontender, no organomegaly, masses o r bruits. Bowel sounds are normal in all 4 quadrants. The abdominal aortic pulsation is no t palpable. EXTREMITIES: Trace pedal edema Radial pulses 2+ bilaterally. Femoral pulses are 2+ b ilaterally without bruits. DP and PT pulses are 2+ bilaterally. No clubbing. SKIN: Warm and dry, capillary refill is normal, no lesions. NEUROLOGIC: Awake, alert and oriented x 3. No focal motor or sensory deficits. PSYCHIATRIC: Appropriate, affect appears normal DATA: Blood tests: Lab Results Component Value Date WBC 6.7 10/16/2018 RBC 3.63 (A) 10/16/2018 HGB 12.2 (A) 10/16/2018 HCT 35.3 (A) 10/16/2018 PLT 300 10/16/2018 Lab Results Component Value Date NA 140 10/16/2018 K 4.6 10/16/2018 CL 102 10/16/2018 CO2 24 10/16/2018 ANIONGAP 18.6 10/16/2018 GLUF 103 (A) 10/16/2018 BUN 35 (A) 10/16/2018 CREATININE 2.07 (A) 10/16/2018 BCR 16.9 10/16/2018 CA 9.5 10/16/2018 EGFR 33 (A) 10/16/2018 Lab Results Component Value Date CHOL 149 02/06/2017 TRIG 156 (H) 02/06/2017 LDL 75 02/06/2017 GLUF 103 (A) 10/16/2018 Lab Results Component Value Date TSH 3.35 10/16/2018 No results found for: METF, NMETFX, TFNMFX, [id number], FYFICK37PIF, TOTEPI IMAGING /PROCEDURE Last Cath: 02/06/2017 ([facility]) Separate ostia of the left anterior descending [...] inadequate TR jet. Pulmonic valve normal, trace VT. No p ericardial effusion. IVC 1.5-2.5 cm, [...] block. Bifascicular Block: Rate 5 8 bpm, VT 222 ms, QRS 156 ms, QTC 475 ms EK03/11: Sinus bradycardia with first-degree A-V block. Bi fascicular block. Rate 59 bpm, VT 238 ms, QRS 160 ms, QTC 481 ms, compared to EKG done in January first-degree A-V b lock has increased slightly,tracing personally reviewed by me EK08/01: Sinus rhythm with first-degree AV block. Left axis deviation and a right bundle branch block. Rate 65 bpm, VT 230 ms, QRS 162 ms, QTC 497 ms, when compared to EKG done in February 2017, VT interval has decreased slightly and QTC has increased ,tracing person ally reviewed by me EK10/30/2018: Sinus rhythm with first-degree AV block bifascicular block, old septal infa rct. Rate 66 bpm, VT 250 ms, QRS 156 ms, QTC 475 [...] 2.4, ferritin 24.23, B12 835 folate 15, WBC 7.5, hemoglobin 11.8, hemato crit 35.9, platelets 259 Labs 2016: Sodium 139, potassium 4, chloride 98, glucose 152, BUN 32, creatinine 1.44, GFR 51, AST 18, ALT 17, alk phos 57, total bilirubin 0.4, CBC: WBC 8.1, hemoglobin 11.5, he matocrit 34.7, platelets 266 Labs: : Free T4 [...] 33. Uric acid: 8.2. Thyroid: TSH 3.35 ASSESSMENT & PLAN: He was here today for 6 month follow-up with problems as detailed below. Overall he seems to be doing well with no dyspnea and lower leg edema resolved, and hear t rate and blood pressure seems well controlled on current medications, and EKG stable. Sleep apnea is also well-controlled with nightly CPAP use, and he reports he feels better . Unfortunately, he continues to be in active due to ongoing problems with gout and joint p ain, and I have continued to encourage him to find and exercise he can perform on a daily ba sis, and suggested he go to the [facility] and exercise every day, with a goal of 30 minutes daily I also gave him more suggestions on making better food choices, and limiting portion sizes . I made no changes to cardiac medications today and he should continue on with atorvastat in 80 mg qhs, carvedilol 6.25 mg bid, hydralazine 50 mg tid, spironolactone 50 mg daily, an d torsemide 20 mg daily, and coumadin for target INR 2-3 for [id number] 2 VASC score of 2 wit h slow flow to R[facility]. I will follow-up with him in 6 months, and have ordered an updated. It felt to be pe rformed the next time he has blood work for other Dr. Ulloa, or Dr. Carroll 1. Paroxysmal atrial fibrillation (HCC) 2. Essential hypertension with goal blood pressure less than 130/80 3. Chronic combined systolic and diastolic congestive heart failure (HCC) 4. Bilateral leg edema 5. Mixed hyperlipidemia 6. Chronic kidney disease, stage 3 (HCC) 7. Class 3 obesity with alveolar hypoventilation without serious comorbidity with body mass index (BMI) of 45.0 to 49.9 in adult ([facility]) 8. Obstructive sleep apnea syndrome 9. History of left nephrectomy 10. Angiomyolipoma of left kidney Orders Placed This Encounter Procedures Lipid panel Electrocardiogram, 12-lead The following portions of the patient's history were personally reviewed by me and updated as appropriate: EKG tracings, other specialty provider and PCP notes, current and previous cardiac testing and procedure reports and data, medication bottles NOT brought to visit today , any [facility] admission or discharge records, any emergency room records,Allergies, current medications .labs, Family history, past medical history, past social history, past surgical history. Problem list. [facility] this encounter Plan of Treatment + +--------+ + + | Name | Priori | Associated Diagnoses | Order Schedule | | | ty | | | + +--------+ + + | Lipid panel | Routin | Mixed | Expected: | | | e | hyperlipidemia | 10/30/2018, Expires: | | | | | 10/31/2019 | + +--------+ + + as of this encounter Procedures + +--------+ [...] | | | | | | (HCC) Class 3 | | | | | [...] | | 49.9 in adult (HCC) | | | | | | Obstructive sleep | | | | | | apnea syndrome | | + +--------+ + + + in this encounter Results EKG STANDARD 12 LEAD (10/30/2018 1:24 [...] + + + + | Calculated P [place] | 78 | degrees | [facility] | + + + + + | Calculated R [place] | -79 | degrees | [facility] | + + + + + | Calculated T [place] | 44 | degrees | [facility] | + + + + + | Diagnosis | Please refer to | | [facility] | | | Providers office visit | | | | | note for Providers | | | | | Interpretation.Confirmed | | | | | by [facility] [place] Read Only, | | | | | [facility] [place] ([id number]), | | | | | legal editor Valentín Oates | | | | | ([id number]) on 10/30/2018 | | | | | 1:33:14 PM | | | + + + + + + + + + + | Performing | Address | City/State/Zipcode | Phone Number | | Organization | | | | + + + + + | [facility] | [address] | [place] [address] | | + + + + + in this encounter Visit Diagnoses + + | Diagnosis | + + | Paroxysmal atrial fibrillation (HCC) - Primary | + + | Atrial fibrillation | + + | Essential hypertension with goal blood pressure less than 130/80 | + + | Chronic combined systolic and diastolic congestive heart failure (HCC) | + + | Chronic combined systolic and diastolic heart failure | + + | Bilateral leg edema | + + | Edema | + + | Mixed hyperlipidemia | + + | Chronic kidney disease, stage 3 (HCC) | + + | Class 3 obesity with alveolar hypoventilation without serious comorbidity with body | | mass index (BMI) of 45.0 to 49.9 in adult (HCC) | + + | Obstructive sleep apnea syndrome | + + | Obstructive sleep apnea (adult) (pediatric) | + + | History of left nephrectomy | + + | Angiomyolipoma of left kidney | + +
--- OUTSIDE RECORDS SUMMARY | ~2018-12-11 | XMS | Encounter Summary ---
Demographics + + + | Address | [address] | | | [place] [address] | + + + | Home Phone | | + + + | Preferred Language | Unknown | + + + | Marital Status | Single | + + + | Uatsdin Affiliation | 1077 | + + + | Race | Unknown | + + + | Ethnic Group | Unknown | + + + Author + + + | Author | [facility] [employer] | + + + | Organization | [facility] [employer] [facility] | + + + | Address | Unknown | + + + | Phone | Unavailable | + + + Support + + + + + | Name | Relationship | Address | Phone | + + + + + | Aaron Latham | ECON | [address] | | | | | [place] | | | | | [place] [address] | | + + + + + Care Team Providers + +------+ + | Care Sheet Rock Sander Name | Role | Phone | + [...] Cardiology | systolic | [address] | CLINIC CLERK [address] | | | | | (congestive) | [place] | Obdulia Moralez | | | | | heart | [place], | Charlie F | | | | | failure | [place] [address] | [place] | | | | | (HCC) 6 | Phone: | [address] Phone: | | | | | month f/u- | [phone] | [phone] | | | | | New | Fax: | Fax: | | | | | Insurance, | [phone] | [phone] | | | | | had power [...] | | | Way [address] | [place] [address] | Essential | | | | [place] [address] | [phone] | hypertension with | | | | [phone] | | goal blood pressure | | | | | | less than 130/80; | | | | | | Chronic combined | | | | | | systolic and | | | | | | diastolic congestive | | | | | | heart failure | | | | | | ([facility]); Bilateral leg | | | | | | edema; Mixed | | | | | | hyperlipidemia; | | | | | | Chronic kidney | | | | | | disease, stage 3 | | | | | | ([facility]); Class 3 | | | [...] | | | | 49.9 in adult ([facility]); | | | | | [...] salt. This means you can have only [id number] to 700mg of sodium at each meal.People [...] matzo crackers Avoid: Salted crackers, pretzels, popcorn, Bulgarian toast, pancakes, muffins Dairy Ok: Milk, chocolate [...] vegetables; tomato juice, olives Date Last Reviewed: 03/12/201619995373-1927 [employer] [place] [address], [place] [address]. All righ ts reserved. This information is [...] He is managed on Coumadin for his HKR4SV3 2 VASC score of 2 which is managed by the [facility] Coumadin clinic. He was hospitalized in July 2017 at [facility] for acute GI bleeding, where a [...] surgery 08/16/2017 by , colorectal surgeon in [place], with low anterior resection with open approach, did not require any Chemo or radiation, He also followed up Dr. Cross in [place], and since I saw him last he [...] be angiomyolipom a,,followed by Dr. Cross in [place] Denies hematuria. 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 Lives with [...] No results found for: METF, NMETFX, TFNMFX, GILODWN85POV, RWQWLQ08WVS, TOTEPI IMAGING /PROCEDURE Last Cath: 02/06/2017 ([facility]) Separate ostia of the left anterior descending [...] inadequate TR jet. Pulmonic valve normal, trace [place]. No p ericardial effusion. IVC 1.5-2.5 cm, [...] block. Bifascicular Block: Rate 5 8 bpm, KY 222 ms, QRS 156 ms, QTC 475 ms EK03/11: Sinus bradycardia with first-degree A-V block. Bi fascicular block. Rate 59 bpm, KY 238 ms, QRS 160 ms, QTC 481 ms, compared to EKG done in January first-degree A-V b lock has increased slightly,tracing personally reviewed by me EK08/01: Sinus rhythm with first-degree AV block. Left axis deviation and a right bundle branch block. Rate 65 bpm, KY 230 ms, QRS 162 ms, QTC 497 ms, when compared to EKG done in February 2017, KY interval has decreased slightly and QTC has increased ,tracing person ally reviewed by me EK10/30/2018: Sinus rhythm with first-degree AV block bifascicular block, old septal infa rct. Rate 66 bpm, KY 250 ms, QRS 156 ms, QTC 475 [...] and coumadin for target INR 2-3 for [id number] 2 VASC score of 2 wit h [...] (BMI) of 45.0 to 49.9 in adult ([facility]) 8. Obstructive sleep apnea syndrome [...] NOT brought to visit today , any [facility] admission or discharge records, any emergency room records,Allergies, current medications .labs, Family history, past medical history, past social history, past surgical history. Problem list. [facility] this [facility] Plan of [...] + + + + | Calculated P [place] | 78 | degrees | [facility] | + + + + + | Calculated R [place] | -79 | degrees | [facility] | + + + + + | Calculated T [place] | 44 | degrees | [facility] | + + + + + | Diagnosis | Please refer to | | [facility] | | | Providers office visit | | | | | note for Providers | | | | | Interpretation.Confirmed | | | | | by [facility] [place] Read Only, | | | | | ICA [place] ([id number]), | | | | | design editor Valentín Oates | | | | | ([id number]) on 10/30/2018 | | | | | 1:33:14 PM | | | + + + + + + + + + + | Performing | Address | City/State/Zipcode | Phone Number | | Organization | | | | + + + + + | [facility] | [address] | [place] [address] | | + + + + + [...]
--- OUTSIDE RECORDS SUMMARY | ~2018-12-11 | XMS | Encounter Summary ---
Demographics + + + | Address | [address] | | | [place] [address] | + + + | Home Phone [...] + + + | Author | Rebeca Joome | + + + | Organization | [facility] [employer] [facility] | + + + | Address | Unknown | + + + | Phone | Unavailable | + + + Support + + + + + | Name | Relationship | Address | Phone | + + + + + | Aaron Latham | ECON | [address] | | | | | [place] | | | | | [place] [address] | | + + + + + Care Team Providers + +------+ + | Care Semiconductor Technician Name | Role | Phone | + +------+ + | Sarah Carroll MD | PCP | Unavailable | + +------+ + Reason for Visit +--------+ + | Reason | Comments | +--------+ + | Other | [facility] PCP Notes w/ Labs | +--------+ + Encounter Details +--------+ + + + + | Date | Type | Department | Care Team | Description | +--------+ + + + + | 10/29/ | Documentati | [facility] [place] | Jerome, Emmy Hammer MA | Other ([place] | | 2019 | on Only | Cardiology [place] | | PCP Notes w/ Labs ) | | | | [address] [facility] [address] | | | | | | [address] [facility] [address] | | | | | | [place] [address] | | | | | | [phone] | | | +--------+ + + + [...] on fileas of this encounter Visit Diagnoses Not on filein this encounter"
--- OUTSIDE RECORDS SUMMARY | ~2018-12-11 | XMS | Encounter Summary ---
Demographics + + + | Address | [address] | | | [place] [address] | + + + | Home Phone [...] + + + | Author | [facility] [employer] | + + + | Organization | [facility] [employer] [facility] | + + + | Address | Unknown | + + + | Phone | Unavailable | + + + Support + + + + + | Name | Relationship | Address | Phone | + + + + + | Aaron Latham | ECON | [address] | | | | | [place] | | | | | [place] [address] | | + + + + + Care Team Providers + +------+ + | Care Slice Plug Cutter Operator Helper Name | Role | Phone [...] + | 10/29/ | Documentati | [facility] [place] | Jerome, Emmy Hammer MA | Other ([place] | | 2019 | on Only | Cardiology [place] | | PCP Notes w/ Labs ) | | | | [address] [facility] [address] | | | | | | Street [facility] [address] | | | | | | [place] [address] | | | | | | [phone] | | | +--------+ + + + [...]
--- OUTSIDE RECORDS SUMMARY | ~2018-12-11 | XMS | Clinical Summary ---
Demographics + + + | Address | [address] | | | [place] [address] | + + + | Home Phone | | + + + | Preferred Language | Unknown | + + + | Marital Status | Single | + + + | Baptism Affiliation | 1077 | + + + | Race | Unknown | + + + | Ethnic Group | Unknown | + + + Author + + + | Author | [facility] [employer] | + + + | Organization | [facility] [employer] | + + + | Address | Unknown | + + + | Phone | Unavailable | + + + Support + + + + + | Name | Relationship | Address | Phone | + + + + + | Lily Latham | ECON | [address] | | | | | [place] | | | | | [place] [address] | | + + + + + Care Team Providers + +------+ + | Care Cut Filer Name | Role | Phone | [...] failure | | | | | | ([facility]); Bilateral leg | | | | | | edema; Mixed | | | | | | hyperlipidemia; | | | | | | Chronic kidney | | | | | | disease, stage 3 | | | | | | ([facility]); Class 3 | | [...] | | | | 49.9 in adult ([facility]); | | | | | | Obstructive sleep | | | | | | apnea syndrome | +--------+ + + + + | 10/29/ | Documentati | | Emmy Cano MA | Other ([place] | | 2019 | on Only | [...] | | | | | 3 (moderate) ([facility]); | | | | [...] | | | | | | ([facility]) Class 3 | | | [...] | | | | 49.9 in adult ([facility]) | | | | | [...] | | | | | 3 (moderate) ([facility]) | | | | | [...] | | | | | 3 (moderate) ([facility]) | | | | | [...] + + + + | Calculated P [place] | 78 | degrees | [facility] | + + + + + | Calculated R [place] | -79 | degrees | [facility] | + + + + + | Calculated T [place] | 44 | degrees | [facility] | + + + + + | Diagnosis | Please refer to | | [facility] | | | Providers office visit | | | | | note for Providers | | | | | Interpretation.Confirmed | | | | | by [facility] [place] Read Only, | | | | | [facility] [place] ([id number]), | | | | | assistant production editor Valentín Oates | | | | | ([id number]) on 10/30/2018 | | | | | 1:33:14 PM | | | + + + + + + + + + + | Performing | Address | City/State/Zipcode | Phone Number | | Organization | | | | + + + + + | [facility] | [address] | [place] [address] | | + + + + + [...] + + + | [facility] | [address] | [place] [address] | [phone] | | LABORATORY | Blvd. | | [...] + + + | [facility] | [address] | [place] [address] | [phone] | | LABORATORY | Blvd. | | [...] + + + | [facility] | [address] | [place] [address] | [phone] | | LABORATORY | Blvd. | | [...] + + + + | [facility] | [address] [facility] | [place] [address] | [phone] | | LABORATORY | Blvd. | | [...] + + + | [facility] | [address] [facility] | [place] [address] | [phone] | | LABORATORY | Blvd. | | [...] | + + + + + | [facility] | [address] [facility] | [place] [address] | [phone] | | LABORATORY | Blvd. | | | + + + + + Renal function panel (10/16/2018 11:20 AM) + + + + + | Component | Value | Ref Range | Performed At | + + + + + | GLUCOSE | 103 (A) | 70 - 100 mg/dL | [facility] | | | | | LABORATORY | + + + + + | BUN | 35 (A) | 6 - 23 mg/dL | [facility] | | | | | LABORATORY | [...] + + + | [facility] | [address] [facility] | [place] [address] | [phone] | | LABORATORY | Blvd. | | [...] +------+-------+ + | MEDICAID | EASTER | [id number] | | | [address] | | | [place] | | | | [place], [place] | | | [place] | | | | [address] | | | PHOTOGRAPHY COLORIST | | | | | + +--------+ [...] [place] | | | [address] | [place] [address] | + +--------+ +--------+ + +
--- OUTSIDE RECORDS SUMMARY | ~2018-12-11 | XMS | Encounter Summary ---
Demographics + + + | Address | [address] | | | [place] [address] | + + + | Home Phone [...] + + + | Author | [facility] [employer] | + + + | Organization | [facility] [employer] [facility] | + + + | Address | Unknown | + + + | Phone | Unavailable | + + + Support + + + + + | Name | Relationship | Address | Phone | + + + + + | Aaron Latham | ECON | [address] | | | | | [place] | | | | | [place] [address] | | + + + + + Care Team Providers + +------+ + | Care Blow Torch Operator Name | Role | Phone | [...] | | | | | [place] [address] | | | | | | [phone] | | | +--------+ + + + [...] 3 | | | | | ([facility]) Renal | | | | | neoplasm [...] 3 | | | | | ([facility]) Renal | | | | | neoplasm [...] 3 | | | | | ([facility]) Renal | | | | | neoplasm [...] 3 | | | | | ([facility]) Renal | | | | | neoplasm [...]
--- OUTSIDE RECORDS SUMMARY | ~2018-12-11 | XMS | Encounter Summary ---
Demographics + + + | Address | [address] | | | [place] [address] | + + + | Home Phone [...] + + + | Author | [facility]a [employer] | + + + | Organization | [facility] | + + + | Address | Unknown | + + + | Phone | Unavailable | + + + Support + + + + + | Name | Relationship | Address | Phone | + + + + + | Aaron Latham | ECON | [address] | | | | | [place] | | | | | [place] [address] | | + + + + + Care Team Providers + +------+ + | Care Peanut Farmer Name | Role | Phone | + +------+ + | Sarah Carroll MD | PCP | Unavailable | + +------+ + Reason for Visit +--------+ + | Reason | Comments | +--------+ + | Other | US Retroperitoneal 06/27/18 | +--------+ + Encounter Details +--------+ + + + + | Date | Type | Department | Care Team | Description | +--------+ + + + + | 10/28/ | Documentati | [facility] | Callum, | Other ([place] | | 2019 | on Only | [place] [address] | [place] [address] | Jana | | | | [address] | | 06/27/18) | | | | [place] [address] | | | | | | [phone] | | | +--------+ + + + [...]
--- OUTSIDE RECORDS SUMMARY | ~2018-12-11 | XMS | Encounter Summary ---
Demographics + + + | Address | [address] | | | [place] [address] | + + + | Home Phone [...] + + + | Author | [facility] [employer] | + + + | Organization | [facility] [employer] [facility] | + + + | Address | Unknown | + + + | Phone | Unavailable | + + + Support + + + + + | Name | Relationship | Address | Phone | + + + + + | Aaron Latham | ECON | [address] | | | | | [place] | | | | | [place] [address] | | + + + + + [...] | | | | | [place] [address] | | | | | | [phone] | | | +--------+ + + + [...]
--- OUTSIDE RECORDS SUMMARY | ~2018-12-11 | XMS | Encounter Summary ---
Demographics + + + | Address | [address] | | | [place] [address] | + + + | Home Phone [...] + + + | Author | Re[facility]a link bird | + + + | Organization | [facility] | + + + | Address | Unknown | + + + | Phone | Unavailable | + + + Support + + + + + | Name | Relationship | Address | Phone | + + + + + | Aaron Latham | ECON | [address] | | | | | [place] | | | | | [place] [address] | | + + + + + Care Team Providers + +------+ + | Care Head Of Precision Targeting Name | Role | Phone | + +------+ + | Sarah Carroll MD | PCP | Unavailable | + +------+ + Encounter Details +--------+ + + + + | Date | Type | Department | Care Team | Description | +--------+ + + + + | 10/20/ | Orders Only | [facility] | Nolen, | Essential | | 2019 | | [place] [address] | [address] | hypertension with | | | | [address] | | goal blood pressure | | | | [place], [place] [address] | | less than 130/80; | | | | [phone] | | Anemia of chronic | | | | | | renal failure, stage | | | | | | 3 (moderate) ([facility]); | | | | | | Renal neoplasm | +--------+ + + + + Social [...] | | | | | 3 (moderate) ([facility]) | | | | | | Renal [...] | | | | | 3 (moderate) ([facility]) | | | | | | Renal [...] | | | | | 3 (moderate) ([facility]) | | | | | | Renal [...] | | | | | 3 (moderate) ([facility]) | | | | | | Renal [...] + + + in this encounter Results Uric acid (10/16/2018 11:20 AM) + +---------+ [...] | + + + + + | [facility] | [address] [facility] | [place] [address] | [phone] | | LABORATORY | Blvd. | | | + + + + + Renal function panel (10/16/2018 11:20 AM) + + + + + | Component | Value | Ref Range | Performed At | + + + + + | GLUCOSE | 103 (A) | 70 - 100 mg/dL | [facility] | | | | | LABORATORY | + + + + + | BUN | 35 (A) | 6 - 23 mg/dL | [facility] | | | | [...] + + + | [facility] | [address] [facility] | [place] [address] | [phone] | | LABORATORY | Blvd. | | [...] + + + | [facility] | [address] | [place] [address] | [phone] | | LABORATORY | Blvd. | | | + + + + + Protein / creatinine ratio, urine [...] + + + | [facility] | [address] [facility] | [place] [address] | [phone] | | LABORATORY | Blvd. | | [...] + + + | [facility] | [address] [facility] | [place] [address] | [phone] | | LABORATORY | Blvd. | | [...] + + + | [facility] | [address] [facility] | [place] [address] | [phone] | | LABORATORY | Blvd. | | [...] | + + + + + | [facility] | [address] [facility] | [place] [address] | [phone] | | LABORATORY | Blvd. 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
--- OUTSIDE RECORDS SUMMARY | ~2018-12-11 | XMS | Clinical Summary ---
Demographics + + + | Address | [address] | | | [place] [address] | + + + | Home Phone [...] Toby Latham | ECON | Unknown | + | + + + + + | Toby Latham | ECON | [address] | + | | | | [place] [address], | | | | | [place] [address] | | + + + + + Care Team Providers + +------+ + | Care Sales Expert Name | Role | Phone | [...] 0 | | | Activ | | (DEMADEX) 20 mg | Daily. | | | | | e [...] | | + + + +---------+------+------+-------+ | isosorbide | Take 60 mg by mouth | | 0 | | | Activ | | mononitrate (IMDUR) | Daily. | | | | | e | | 60 mg ER tablet | | | | | | | + + + +---------+------+------+-------+ | magnesium oxide | Take 400 mg by mouth | | 0 | | | Activ | | (MAG-OX) 400 mg | Daily. | | | | | e [...] | | + + + +---------+------+------+-------+ | spironolactone | Take 100 mg by mouth | | 0 | | | Activ | | (ALDACTONE) 50 mg | Daily. | | | | | e [...] | | + + + +---------+------+------+-------+ | non-formulary | Apply topically 2 | | 0 | | | Activ | | medication | times daily. | | | | | e | | | FLUCONAZOLE DMSO 5% | | | | | | | | APPLY TO TOES | | | | | | + [...] | | + + + +---------+------+------+-------+ | oxyCODONE | Take 1-2 tablets by | 40 | 0 | 10/3 | | Activ | | (ROXICODONE) 5 mg | mouth every 6 hours | tablet | | 1/20 | | e | | tablet | as needed for Pain. | | | 18 | | | + + + +---------+------+------+-------+ | docusate sodium | Take 1-2 capsules by | 30 | 0 | 10/3 | | Activ | | (COLACE) 100 mg | mouth Daily. | capsule | | 1/20 | | e | | capsule | | | | 18 | | | + + + +---------+------+------+-------+ | tamsulosin | Take 1 capsule by | 30 | 1 | 11/0 | | Activ | | (FLOMAX) 0.4 mg CAPS | mouth daily (after | capsule | | 5/20 | | e | | | breakfast). | | | 18 | | | + + + +---------+------+------+-------+ | allopurinol | Take 100 mg by mouth | | 0 | | | Activ | | (ZYLOPRIM) 100 mg | Daily. | | | | | e | | tablet | | | | | | | + + + +---------+------+------+-------+ | colchicine 0.6 mg | Take 0.6 mg by mouth | | 0 | | | Activ | | tablet | Daily. | | | | | e | + + + +---------+------+------+-------+ | levothyroxine | Take 25 mcg by mouth | | 0 | | | Activ | | (SYNTHROID) 25 mcg | every morning | | | | | e | | tablet | (before breakfast). | | | | | | + + + +---------+------+------+-------+ Active Problems + + + | Problem | Noted Date | + + + | Chronic kidney disease, stage 3 | 04/17/2018 | + + + | History of colon cancer | 04/17/2018 | + + + | Paroxysmal atrial fibrillation | 04/17/2018 | + + + | Renal neoplasm | 04/17/2018 | + + + | Anemia | 01/21/2017 | + + + | Essential hypertension [...] daily.Last Cath: | | naLast Echo, 02/16/2016 ([facility]'): moderate LVH, global | | hypokinesis, LVEF 40-45%, moderate LAE, moderate CYNTHIA (suspect | | RVE), mild MR, trace TR, est systolic PAP 19-24mmHg.Last Stress | | Test: Angela, 02/19/2016: Atrial flutter with variable conduction, | | 100bpm, RBBB/LAFB, non-spec ST-T changes. | + + + + + | Chronic kidney disease, stage II (mild) | 03/29/2016 | + + + + + | Overview: Last Assessment & Plan: | | CKD, Stage 2. Renal function improved, ACEI sensitive. | + + + + + | Essential hypertension | 03/29/2016 | + + + + [...] dose (atorvastatin). Labs anticipated. | + + + + + | Persistent atrial fibrillation | 03/29/2016 | + + + + + | Overview: Last Assessment & Plan: A fib/flutter, ?duration, | | CHADS2 Score 2 (CHF, HTN), on warfarin, managed by [facility] | | Coumadin clinic. At sometime in the future, consider | | cardioversion. | + + Encounters +--------+ + + + + | Date | Type | Specialty | Care Team | Description | +--------+ + + + + | 12/03/ | Abstract | | Provider, | | | 2018 | | | MD Kaitlin | | +--------+ + + + + | 10/27/ | Telephone | | Riccardo Malhotra, | Other | | 2019 | | | MD | | +--------+ + + + + [...] | Blood Pressure | 128/76 | 07/17/2018 1044 PST | + + + + | Pulse | 63 | 06/19/2018846 PST | + + + + | Temperature | 36.4 C (97.5 F) | 06/19/2018846 PST | + + + + | Respiratory Rate | 16 | 06/19/2018846 PST | + + + + | Oxygen Saturation | 95% | 06/19/2018846 PST | + + + + | Inhaled Oxygen | - | - | | Concentration | | | + + + + | Weight | 151 kg (333 lb) | 07/17/20181043 PST | + + + + | Height | 180.3 cm (5' 11") | 07/17/20181043 PST | + + + + | Body Mass Index | 46.44 | 07/17/20181043 PST | + + + + Plan of Treatment +--------+---------+ + + + | Date | Type | Specialty | Care Team | Description | +--------+---------+ + + + | 12/15/ | Office | | Riccardo Malhotra, | | | 2018 | Visit | | MD [address] | | | | | | [place] | | | | | | [address] | | | | | | | [...] 19-64 | 0 | | | | (PPSV23 only) Medium | | | | | Risk (1 of 1 - | | | | | PPSV23) | | | | + + + [...] filefrom Last 3 Months Insurance + +--------+ +--------+ +---------+--------+ | Payer | Benefi | Subscriber | Effect | Phone | Address | Type | | | t Plan | ID | ascencion | | | | | | / | | Dates | | | | | | Group | | | | | | + +--------+ +--------+ +---------+--------+ | PREMER[employer] | PREMER | [id number] | 08/12/19 | [phone] | | PPO | | | A | 3 | 17-Pre | 0 | | | | | PREFER | | sent | | | | | | RED | | | | | | + +--------+ +--------+ +---------+--------+ | [employer] | MOD[employer] | [id number] | | [phone] | | Medica | | MEDICAID HMO [...] Person | Self [birth year] | [address] | | | al/Fam | | 1960 | [id number] | [address] [place], | | | [place] | | | 1 (Home) | [place] [address] | + +--------+ +--------+ + + | Aaron Latham | Person | Self | [birth year] | [address] | | | al/Fam | | 1960 | [phone] | [address] [place], | | | [place] | | | 1 (Home) | [place] [address] | + +--------+ +--------+ + + Advance Directives Patient has advance care planning documents, and code status on file. For more information, please contact:[facility] [address] + + + + + | Code Status | Date | Date | Comments | | | Activated | Inactivated | | + + + + + | Full Code | 06/11/2018 | 06/19/2018 | | | | 17:41 | 18:41 | | + + + + + + + + +---+ | | | | | + + + +---+ | Full Code | 08/16/2017 | 08/23/2017 | | | | 18:43 | 12:27 | | + + + +---+
--- OUTSIDE RECORDS SUMMARY | ~2018-12-11 | XMS | Encounter Summary ---
Demographics + + + | Address | [address] | | | [place] [address] | + + + | Home Phone [...] + + + | Author | [facility] | + + + | Organization | [facility] | + + + | Address | Unknown | + + + | Phone | Unavailable | + + + Support + + + + + | Name | Relationship | Address | Phone | + + + + + | Aaron Latham | ECON | [address] | | | | | [place] | | | | | [place] [address] | | + + + + + Care Team Providers + +------+ + | Care Carding Utility Tender Name | Role | Phone | [...] 06/27/18) | | | | [place] [address] | | | | | | [phone] | | | +--------+ + + + [...]
--- OUTSIDE RECORDS SUMMARY | ~2018-12-11 | XMS | Clinical Summary ---
Demographics + + + | Address | [address] | | | [place] [address] | + + + | Home Phone [...] [place], | | | | | [place] [address] | | + + + + + Care Team Providers + +------+ + | Care Oil Well Logging Engineer Name | Role | Phone | [...] daily.Last Cath: | | naLast Echo, 02/16/2016 ([facility]'): moderate LVH, global | | hypokinesis, [...] [place] | | | | | | [address] | | | | | | | [...] +--------+ +---------+--------+ | PREMERA | PREMER | [id number] | 08/12/19 | [phone] | | PPO | | | A | 3 | 17-Pre | 0 | | | | | PREFER | | sent | | | | | | RED | | | | | | + +--------+ +--------+ +---------+--------+ | [employer] | MODA | [id number] | | [phone] | | Medica | | MEDICAID HMO [...] | | | 1 (Home) | [place] [address] | + +--------+ +--------+ + + | Aaron Latham | Person | Self | [birth year] | [address] | | | al/Fam | | 1960 | [phone] | [address] [place], | | | [place] | | | 1 (Home) | [place] [address] | + +--------+ +--------+ + + Advance Directives Patient has advance care planning documents, and code status on file. For more information, please contact:[facility] [place] [address] + + + + + | Code [...]
--- OUTSIDE RECORDS SUMMARY | ~2018-12-11 | XMS | Encounter Summary ---
Demographics + + + | Address | [address] | | | [place] [address] | + + + | Home Phone [...] + + + | Author | [facility] [employer] | + + + | Organization | [facility] [employer] [facility] | + + + | Address | Unknown | + + + | Phone | Unavailable | + + + Support + + + + + | Name | Relationship | Address | Phone | + + + + + | Aaron Latham | ECON | [address] | | | | | [place] | | | | | [place] [address] | | + + + + + Care Team Providers + +------+ + | Care Junior Data Analyst Name | Role | Phone | [...] pressure | | | | [place], [place] [address] | | less than 130/80; | | | | [phone] | | Anemia of chronic | | [...] | + + + + + | [facility] | [address] [facility] | [place] [address] | [phone] | | LABORATORY | Blvd. | | [...] | [address] [facility] | [place] [address] | [phone] | | LABORATORY | Blvd. | | [...] | [address] | [place] [address] | [phone] | | LABORATORY | Blvd. | | [...] [address] [facility] | [place] [address] | [phone] | | LABORATORY | Blvd. | | [...] | [address] [facility] | [place] [address] | [phone] | | LABORATORY | Blvd. | | [...] [address] [facility] | [place] [address] | [phone] | | LABORATORY | Blvd. | | [...] | + + + + + | [facility] | [address] [facility] | [place] [address] | [phone] | | LABORATORY | Blvd. | | [...]
[~2018-12-11 02:41] MED LIST changes: +ALLOPURINOL100 MG PO; +COLCRYS0.6 MG PO; +LEVOTHYROXINE25 MCG PO; +PREDNISONE20 MG PO
[2018-12-11] MEDS ORDERED: PREDNISONE20 MG PO (02:54)
[2018-12-11] MEDS ORDERED: COLCHICINE0.6 M1 PO (02:55)
[2018-12-11] MEDS ORDERED: OXYCODONE HCL5 MG PO (06:59)
--- OUTSIDE RECORDS SUMMARY | 2018-12-11 07:34 | XMS ---
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 Care History Medical/Surgical 08/25/2018 [facility] - Patient is currently established with [facility]. If patient is seen in the ED during business hours. Please contact [facility]Ws at [facility]. Care Recommendation: This patient has had 5 or more Emergency Department visits in the last 12 months.\T\nbsp; Patient requires education on the scope and purpose of the ED as an acute care provider not a Primary Care Provider and should not be utilized for chronic conditions.\T\nbsp;These are guidelines and the provider should exercise clinical judgment when providing care E.D. VISIT COUNT (12 MO.) 5 [facility] TOTAL 5 NOTE: Visits indicate total known visits. ED/UCC VISIT TRACKING (12 MO.) 12/11/2018 02:41 [facility] [place] TYPE: Emergency COMPLAINT: - FLANK PAIN 08/24/2018 05:57 [facility] [place] TYPE: Emergency COMPLAINT: - L ELBOW PAIN/NON INJURY DIAGNOSES: - Anemia, unspecified - Personal history of nicotine dependence - half-way (current) use of anticoagulants - Sleep apnea, unspecified - Hypertensive heart disease with heart failure - Obesity, unspecified - Other bursitis of elbow, left elbow - Hypothyroidism, unspecified - Pain in left elbow - Heart failure, unspecified - Other nursing home (current) drug therapy 08/15/2018 19:12 [facility] [place] TYPE: Emergency COMPLAINT: - LEFT KNEE PAIN/SWELLING NON INJURY DIAGNOSES: - Pain in left knee - Anemia, unspecified - Hypertensive heart disease with heart failure - Heart failure, unspecified - Hypothyroidism, unspecified - half-way (current) use of anticoagulants - Other intermediate frame tender (current) drug therapy - Unilateral primary osteoarthritis, left knee - Obesity, unspecified - Sleep apnea, unspecified 06/27/2018 12:19 [facility] [place] TYPE: Emergency COMPLAINT: - DIZZINESS 12/24/2017 11:18 [facility] [place] TYPE: Emergency COMPLAINT: - R WRIST PAIN/NO INJURY/MSE TO CLINIC DIAGNOSES: - Pain in right wrist INPATIENT VISIT TRACKING (12 MO.) 06/27/2018 12:20 [facility] [place] TYPE: Observation COMPLAINT: - ACUTE KIDNEY INJURY DIAGNOSES: - Acute kidney failure, unspecified - terminal manager (current) use of anticoagulants - Body mass index (BMI) 40.0-44.9, adult - Cardiomyopathy, unspecified - Acquired absence of kidney - Hypothyroidism, unspecified - Personal history of nicotine dependence - Obesity, unspecified - Anemia, unspecified - Other nursing home (current) drug therapy - Dehydration - Dizziness [...] or unspecified chronic kidney disease [facility]11[facility]2018 10: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
== END 2018-12-11 07:31 | disposition home or self-care (01) ==
LOC: ED 02:41
DX: S39.012A Strain of muscle, fascia and tendon of lower back, initial encounter (principal); X58.XXXA Exposure to other specified factors, initial encounter; I11.0 Hypertensive heart disease with heart failure; I50.9 Heart failure, unspecified; E66.9 Obesity, unspecified; D64.9 Anemia, unspecified; E03.9 Hypothyroidism, unspecified; Z87.891 Personal history of nicotine dependence; Z79.899 Other long term (current) drug therapy; Z79.52 Long term (current) use of systemic steroids; Z79.01 Long term (current) use of anticoagulants
CPT/HCPCS: 51701; 74176; 80053; 81001; 85025; 87088; 99284-25; J0360; J2270; J2704; J7030

== ENCOUNTER 2019-07-10 03:43 | Emergency (ER) | payer OTHER ==
[~2019-07-10] VITALS: Ht 180.3 cm; Wt 168.9 kg
--- OUTSIDE RECORDS SUMMARY | ~2019-07-10 | XMS | Encounter Summary ---
Demographics + + + | Address | [address] | | | [place] [address] | + + + | Home Phone | | + + + | Preferred Language | Unknown | + + + | Marital Status | Single | + + + | Restorationism Affiliation | 1077 | + + + | Race | Unknown | + + + | Ethnic Group | Unknown | + + + Author + + + | Author | [facility] | | | and [place] | + + + | Organization | [facility] | | | [...] Team Providers + +------+ + | Care Last Picker Name | Role | Phone | + [...] | | | Diagnoses | | Mehul Bowles | | | | | Malignant | | MD Chuck | | | | | neoplasm of | | [address] | | | | | sigmoid | | AVE | | | | | colon (HCC) | | [place] | | | | | Malignant | | [address] Phone: | | | | | neoplasm of | | [phone] | | | | | sigmoid | | Fax: | | | | | colon (HCC) | | [phone] | | | | | [C18.7] | | | | | | | Procedures | | | | | | | [place] [facility] | | | | | | [...] + + + + | 08/16/ | Anesthesia | [facility] | Rubén Duron | | | 2018 | Event | [facility] | MD Brennan [address] | | | | | OP [address] | [address]VE [place] | | | | | [place] | [address] | | | | | [address] | | | | | | [phone] | Gregorio Lopes, | | | | | | SANCHEZ Student | | +--------+ + + + + Anesthesia Record + + + + + | Procedure Name | Responsible | Anesthesia Start | Anesthesia Stop Time | | | Anesthesiologist | Time | | + + + + + | RESECTION BOWEL LOW | Rubén Duron, | 08/16/17 1111 | 08/16/17 1317 | | ANTERIOR, FLEXIBLE | MD | | | | SIGMOIDOSCOPY (N/A | | | | | Abdomen) | | | | + + + + + +----+---+ + + | Da | T | Event | Comment | | te | i | | | | | m | | | | | e | | | +----+---+ + + | 01 | 0 | | | | /0 | 9 | | | | 5/ | 1 | | | | 20 | 4 | | | | 18 | | | | +----+---+ + + | | 1 | An Checkout | Pre-use anesthesia machine/equipment checkout. | | | 0 | | | | | 5 | | | | | 1 | | | +----+---+ + + | | 1 | An Start | Reassessment prior to anesthesia induction/procedure. | | | 1 | | | | | 1 | | | | | 1 | | | +----+---+ + + | | 1 | Preoxygenat | | | | 1 | ed | | | | 1 | | | | | 6 | | | +----+---+ + + | | 1 | An | | | | 1 | Induction | | | | 2 | | | | | 2 | | | +----+---+ + + | | 1 | An | | | | 1 | Intubation | | | | 2 | | | | | 3 | | | +----+---+ + + | | 1 | Antibiotic | | | | 1 | Given | | | | 2 | | | | | 7 | | | +----+---+ + + | | 1 | Pre-Procedu | | | | 1 | ral Timeout | | | | 3 | Completed | | | | 5 | | | +----+---+ + + | | 1 | First | | | | 1 | Inc/Proc St | | | | 4 | | | | | 1 | | | +----+---+ + + | | 1 | Quick Note | Recruitment maneuver | | | 1 | | | | | 5 | | | | | 8 | | | +----+---+ + + | | 1 | an verónica now | ARM x 3 | | | 2 | | | | | 1 | | | | | 3 | | | +----+---+ + + | | 1 | Quick Note | ARM performed Sodalime changed | | | 2 | | | | | 2 | | | | | 3 | | | +----+---+ + + | | 1 | AN No | TOF 4/4 with sustained tetanus. | | | 3 | Residual | | | | 0 | NMB | | | | 5 | | | +----+---+ + + | | 1 | Breathing | | | | 3 | Spontaneous | | | | 0 | ly | | | | 6 | | | +----+---+ + + | | 1 | an verónica now | | | | 3 | | | | | 0 | | | | | 7 | | | +----+---+ + + | | 1 | [place] off | | | | 3 | | | | | 0 | | | | | 7 | | | +----+---+ + + | | 1 | Oropharynx | | | | 3 | Suctioned | | | | 0 | | | | | 7 | | | +----+---+ + + | | 1 | Extubated | | | | 3 | Awake | | | | 0 | | | | | 8 | | | +----+---+ + + | | 1 | an verónica now | | | | 3 | | | | | 1 | | | | | 0 | | | +----+---+ + + | | 1 | An Stop | Patient transported to PACU 6L simple mask, oxygenating well and | | | 3 | | VSS. Mentating well, denies pain or N/V at this time. Report | | | 1 | | given to DISTRICT REPRESENTATIVE, remedicated for pain and lidocaine infusion | | | 7 | | continued in PACU, LAST criteria reviewed with RN. Appears | | | | | comfortable, no further questions from RN. | +----+---+ + + +------+ | Meds | +------+ + + + | Name | Total | + + + | fentaNYL | 200 mcg | + + + | lidocaine 2% | 100 mg | + + + | propofol | 150 mg | + + + | rocuronium | 60 mg | + + + | succinylcholine | 160 mg | + + + | ondansetron | 8 mg | + + + | dexamethasone | 8 mg | + + + | sugammadex | 320 mg | + + + | lidocaine in dextrose infusion 4 | 172.5 mg | | mg/mL (premix) | | + + + | ceFAZolin in saline (ANCEF) IVPB | 3 g | | 3 g | | + + + | magnesium sulfate | 2 g | + + + | metroNIDAZOLE in saline (FLAGYL) | 500 mg | | IVPB 500 mg | | + + + | ketamine | 80 mg | + + + | lactated ringers (LR) infusion | 700 mL | + + + + + | Name | + + | N2O Flow Rate (L/Min) | + + | O2 Flow Rate (L/Min) | + + | Insp O2 | + + | Exp N2O | + + | Exp ISO | + + | Air Flow Rate (L/Min) | + + + + | No blood administrations on file. | + + +--------+ + + + | Type | Details | Placement | Removal | +--------+ + + + | Periph | 08/16/17; 930; Right; Wrist; | 08/16/17 09 by | 06/11/18 1311 by | | eral | gauge; Hematology, Chemistry; 1; | Chapincito Shultz RN | Chapincito Shultz RN | | IV | right hand; intradermal injection | | | | | (0.5% lidocaine); 06/11/18; 1311 | | | +--------+ + + + | Airway | Placement Date: 08/16/17; | 08/16/171122 by | 08/16/17 1308 by | | | Placement Time: 112 (created via | Mark Acosta | Gregorio Lopes, | | | procedure documentation); Mask | SANCHEZ Moore | RUBBER ATTACHER Student | | | Ventilation: Unable; Airway | | | | | Grade: 1; External Maneuvers: | | | | | elevated head of bed; Successful | | | | | Technique: video scope; | | | | | Laryngoscope Blade Size: 4; | | | | | Attempts: 2 (first attempt by | | | | | RUBBER ATTACHER student); Airway Type: | | | | | endotracheal; Size: 8; Airway | | | | | Tube Secured At: 24; Trauma: soft | | | | | tissue (small lip cut); Other | | | | | Equipment: stylette; Placement | | | | | Check: exhaled CO2 detection | | | | | device, video laryngoscope, | | | | | bilateral chest rise, breath | | | | | sounds equal bilaterally; Removal | | | | | Date: 08/16/17; Removal Time: | | | | | 1308 | | | +--------+ + + + | Urethr | 08/16/17; 1130; indicated due to | 08/16/17 1130 by | 08/17/17 1619 by | | al | specific surgical procedure; | Mirian | Arnoldo Gaspar RN | | Cathet | Smallest Catheter, Perineum | [facility] | | | er | cleaned, Second person present; | , RN | | | | All elements; All elements; | | | | | indwelling double lumen catheter; | | | | | latex; 16; None; 1; 10; 10; | | | | | none; drainage bag to dependent | | | | | drainage; tubing intact, urethral | | | | | catheter removed; Pt finally | | | | | agreed to have the catheter taken | | | | | out; short term use; 08/17/17; | | | | | 1619 | | | +--------+ + + + | Read | 08/16/17; 1300; abdomen; | 08/16/17 1300 by | 06/11/18 1311 by | | only - | 06/11/18; 1311 | Mirian | Chapincito Shultz RN | | | | Parminder | | | Incisi | | , RN | | | on | | | | +--------+ + + + documented in this encounter Social History + +-------+ +--------+------+ | Tobacco [...] + + documented as of this encounter Plan of Treatment +--------+---------+ + + + | Date | Type | Specialty | Care Team | Description | +--------+---------+ + + + | 07/13/ | Office | Cardiology | Ileana Henson | | | 2018 | Visit | | [facility] [address] | | | | | | [address] | | | | | | [place] [address] | | | | | | [phone] | | | | | | | | +--------+---------+ + + + | 12/02/ | Office | Cardiology | Lorraine Clifton DO | | | 2019 | Visit | | [address] | | | | | | [place] | | | | | | [address] | | | | | | | | +--------+---------+ + + + | 12/13/ | Office | Nephrology | Jewel Ulloa MD | | | 2019 | Visit | | [address] [facility] [place] | | | | | | [address] [place], [place] | | | | | | [address] | | | | | | | | +--------+---------+ + + + documented as of this encounter Procedures + +--------+ + + + | Procedure Name | Priori | Date/Time | Associated Diagnosis | Comments | | | ty | | | | + +--------+ + + + | ANE AIRWAY NOTE | Routin | 08/16/2017 | | Results for this | | | e | 12:17 PM | | procedure are in the | | | | PST | | results section. | + +--------+ + + + documented in this encounter Results Anesthesia Airway Note (08/16/2017 12:17 PM PST) + + + | Narrative | Performed At | + + + | Gregorio Lopes CRNA Student 08/16/2017 12:19 Anesthesia | | | Airway Placement 08/16/2017 11:23 Preprocedure check: patient | | | identified, suction, oxygen, airway equipment checked, airway | | | assessed and patient reassessment prior to induction Rapid Sequence | | | Induction: yes Mask ventilation: unable External maneuver: ramp | | | position and elevated head of bed Successful technique: videoscope | | | Laryngoscope blade size: 4 Airway grade: 1 (Full view of glottis) | | | Other equipment: stylette Attempts: 2 (first attempt by RUBBER ATTACHER | | | student) Airway type: endotracheal Size: 8 Cuffed: cuffed Route, | | | reference point: right side of mouth Tube depth: 24 cm Tube secured | | | with: adhesive tape Trauma: soft tissue laceration (small lip cut) | | | Tube placement verification: bilateral chest rise, equal bilateral | | | breath sounds, carbon dioxide detection and video laryngoscope | | | Performing provider: MARK MOORE Electronically | | | Signed by: Gregorio Lopes CRNA Student | | | ESig date/time: 08/16/2017 12:17 | | | | | + + + + + | Procedure Note | + + | Gregorio Lopes CRNA Student - 08/16/2017 12:17 PM PST Anesthesia Airway | | Placement08/16/2017 11:23Preprocedure check: patient identified, suction, oxygen, airway | | equipment checked, airway assessed and patient reassessment prior to inductionRapid | | Sequence Induction: yesMask ventilation: unableExternal maneuver: ramp position and | | elevated head of bedSuccessful technique: videoscopeLaryngoscope blade size: 4 Airway | | grade: 1 (Full view of glottis)Other equipment: styletteAttempts: 2 (first attempt by | | RUBBER ATTACHER student)Airway type: endotrachealSize: 8Cuffed: cuffedRoute, reference point: right | | side of mouthTube depth: 24 cmTube secured with: adhesive tapeTrauma: soft tissue | | laceration (small lip cut)Tube placement verification: bilateral chest rise, equal | | bilateral breath sounds, carbon dioxide detection and video laryngoscopePerforming | | provider: MARK MOORElectronically Signed by: Gregorio Lopes CRNA | | Student Cassandra date/time: 08/16/2017 12:17 | |Airway type: endotracheal | |Size: 8 | |Cuffed: cuffed | |Route, reference point: right side of mouth | |Tube depth: 24 cm | |Tube secured with: adhesive tape | |Trauma: soft tissue laceration (small lip cut) | |Tube placement verification: bilateral chest rise, equal bilateral breath sounds, carbon di oxide detection and video laryngoscope | |Performing provider: MARK MOORE | | | | | |Electronically Signed by: Gregorio Lopes CRNA Student Maryamg da te/time: 08/16/2017 12:17 | | | + + documented in this encounter Visit Diagnoses Not on filedocumented in this encounter Administered Medications + +--------+ +------+------+------+ | Medication Order | MAR | Action | Dose | Rate | Site | | | Action | Date | | | | + +--------+ +------+------+------+ | ceFAZolin in saline (ANCEF) | Given | 08/16/19 | 3 g | | | | IVPB 3 g 3 g, Intravenous, | | 18 11:22 | | | | | Administer over 30 Minutes, Prior | | AM PST | | | | | to Incision, Starting Sat08/16/17 | | | | | | | at 0831, For 1 dose, Administer | | | | | | | within 1 hour of incision. Keep | | | | | | | in refrigerator., Pre-op, | | | | | | | Indications: Surgical Prophylaxis | | | | | | + +--------+ +------+------+------+ +---+---+ | | | +---+---+ + +-------+ +------+---+---+ | dexamethasone (DECADRON) 10 | Given | 08/16/19 | 8 mg | | | | mg/mL injection Intravenous, | | 18 11:30 | | | | | PRN, Starting Sat08/16/17 at 1130, | | AM PST | | | | | Anesthesia Intra-op | | | | | | + +-------+ +------+---+---+ +---+---+ | | | +---+---+ + +-------+ +--------+---+---+ | fentaNYL (PF) injection | Given | 08/16/19 | 50 mcg | | | | Intravenous, PRN, Pain, Starting | | 18 1:15 | | | | | 08/16/17 at 1122, Anesthesia | | PM PST | | | | | Intra-op | | | | | | + +-------+ +--------+---+---+ +-------+ +--------+---+---+ | Given | 08/16/19 | 50 mcg | | | | | 18 12:38 | | | | | | PM PST | | | | +-------+ +--------+---+---+ | Given | 08/16/19 | 50 mcg | | | | | 18 12:25 | | | | | | PM PST | | | | +-------+ +--------+---+---+ +---+---+ | | | +---+---+ + +-------+ +-------+---+---+ | ketamine 100 mg/mL injection | Given | 08/16/19 | 80 mg | | | | Intravenous, PRN, Starting Fri | | 18 11:22 | | | | | 08/16/17 at 1122, Anesthesia | | AM PST | | | | | Intra-op | | | | | | + +-------+ +-------+---+---+ +---+---+ | | | +---+---+ + +---------+ +---+---+---+ | lactated ringers (LR) infusion | New Bag | 08/16/19 | | | | | at 10-100 mL/hr, Intravenous, | | 18 11:22 | | | | | CONTINUOUS, Starting 08/16/17 | | AM PST | | | | | at 0900, TKO., Pre-op | | | | | | + +---------+ +---+---+---+ +---+---+ | | | +---+---+ + +-------+ +--------+---+---+ | lidocaine (PF) 2% injection | Given | 08/16/19 | 100 mg | | | | Intravenous, PRN, Starting Sat | | 18 11:22 | | | | | 08/16/17 at 1122, Anesthesia | | AM PST | | | | | Intra-op | | | | | | + +-------+ +--------+---+---+ +---+---+ | | | +---+---+ + +---------+ + +-------+---+ | lidocaine in dextrose 4 mg/mL | New Bag | 08/16/19 | 1.5 | 28.1 | | | infusion CONTINUOUS PRN, | | 18 11:45 | mg/kg/hr | mL/hr | | | Starting Sat08/16/17 at 1145, | | AM PST | | | | | Anesthesia Intra-op | | | | | | + +---------+ + +-------+---+ +---+---+ | | | +---+---+ + +-------+ +-----+---+---+ | magnesium sulfate 500 mg/mL | Given | 08/16/19 | 2 g | | | | injection Intravenous, PRN, | | 18 11:48 | | | | | Starting Sat08/16/17 at 1148, | | AM PST | | | | | Anesthesia Intra-op | | | | | | + +-------+ +-----+---+---+ +---+---+ | | | +---+---+ + +-------+ +--------+---+---+ | metroNIDAZOLE in saline | Given | 08/16/19 | 500 mg | | | | (FLAGYL) IVPB 500 mg 500 mg, | | 18 11:28 | | | | | Intravenous, Administer over 1 | | AM PST | | | | | Hours, Prior to Incision, | | | | | | | Starting Sat08/16/17 at 0831, For | | | | | | | 1 dose, Administer within 1 hour | | | | | | | of incision. Do not refrigerate., | | | | | | | Pre-op, Indications: Surgical | | | | | | | Prophylaxis | | | | | | + +-------+ +--------+---+---+ +---+---+ | | | +---+---+ + +-------+ +------+---+---+ | ondansetron (ZOFRAN) injection | Given | 08/16/19 | 8 mg | | | | Intravenous, PRN, Nausea, | | 18 12:47 | | | | | Vomiting, Starting 08/16/17 at | | PM PST | | | | | 1247, Anesthesia Intra-op | | | | | | + +-------+ +------+---+---+ +---+---+ | | | +---+---+ + +-------+ +--------+---+---+ | propofol (DIPRIVAN) injection | Given | 08/16/19 | 150 mg | | | | Intravenous, PRN, Starting Sat | | 18 11:22 | | | | | 08/16/17 at 1122, Anesthesia | | AM PST | | | | | Intra-op | | | | | | + +-------+ +--------+---+---+ +---+---+ | | | +---+---+ + +-------+ +-------+---+---+ | rocuronium (ZEMURON) injection | Given | 08/16/19 | 10 mg | | | | Intravenous, PRN, Ventilator | | 18 12:27 | | | | | Dyssynchrony, Starting Sat08/16/17 | | PM PST | | | | | at 1130, Anesthesia Intra-op | | | | | | + +-------+ +-------+---+---+ +-------+ +-------+---+---+ | Given | 08/16/19 | 50 mg | | | | | 18 11:30 | | | | | | AM PST | | | | +-------+ +-------+---+---+ +---+---+ | | | +---+---+ + +-------+ +--------+---+---+ | succinylcholine (ANECTINE) | Given | 08/16/19 | 160 mg | | | | injection Intravenous, PRN, | | 18 11:22 | | | | | Starting Sat08/16/17 at 1122, | | AM PST | | | | | Anesthesia Intra-op | | | | | | + +-------+ +--------+---+---+ +---+---+ | | | +---+---+ + +-------+ +--------+---+---+ | sugammadex (BRIDION) injection | Given | 08/16/19 | 320 mg | | | | Intravenous, PRN, Starting Fri | | 18 1:00 | | | | | 08/16/17 at 1300, Anesthesia | | PM PST | | | | | Intra-op | | | | | | + +-------+ +--------+---+---+ +---+---+ | | | +---+---+ documented in this encounter"
--- OUTSIDE RECORDS SUMMARY | ~2019-07-10 | XMS | Encounter Summary ---
Demographics + + + | Address | [address] | | | [place] [address] | + + + | Home Phone | | + + + | Preferred Language | Unknown | + + + | Marital Status | Single | + + + | Sikhism Affiliation | 1077 | + + + | Race | Unknown | + + + | Ethnic Group | Unknown | + + + Author + + + | Author | [facility] | | | and [place] | + + + | Organization | [facility] | | | and [...] Team Providers + +------+ + | Care Senior Director Name | Role | Phone | + +------+ + | Sarah Carroll MD | PCP | | + +------+ + Reason for Visit +--------+ + | Reason | Comments | +--------+ + | Other | Lab order | +--------+ + Encounter Details +--------+ + + + + | Date | Type | Department | Care Team | Description | +--------+ + + + + | 07/10/ | Telephone | [facility] | Patrice Cross MD | Other (Lab order) | | 2017 | | [address] [place] | [address] | | | | | [address] [place], [place] | [address] [place] | | | | | [address] | [address] | | | | | [phone] | | | +--------+ + + + [...] | 07/13/ | Office | Cardiology | Jimmyangela Ileana | | | 2019 | Visit | | [address] | | | | | | [address] | | | | | | [place] [address] | | | | | | [phone] | | | | | | | | +--------+---------+ + + + | 12/02/ | Office | Cardiology | Lorraine Clifton DO | | | 2019 | Visit | | [address] | | | | | | [facility] [place] | | | | | | [address] | | | | | | | | +--------+---------+ + + + | 12/13/ | Office | Nephrology | Jewel Ulloa MD | | | 2019 | Visit | | [address] [facility] [address] | | | | | | [address] [place] | | | | | | [address] | | | | | | | | +--------+---------+ + + + + +------+--------+ + + | Name | Type | Priori | Associated Diagnoses | Order Schedule | | | | ty | | | + +------+--------+ + + | Basic Metabolic | Lab | Routin | S/p nephrectomy | Expected: | | Panel | | e | | 07/10/2018, Expires: | | | | | | 07/10/2019 | + +------+--------+ + + documented as of this encounter Visit Diagnoses + + | Diagnosis | + + | S/p nephrectomy - Primary Acquired absence of kidney | + + documented in this encounter"
--- OUTSIDE RECORDS SUMMARY | ~2019-07-10 | XMS | Encounter Summary ---
Demographics + + + | Address | [address] | | | [place] [address] | + + + | Home Phone | | + + + | Preferred Language | Unknown | + + + | Marital Status | Single | + + + | Restorationism Affiliation | 1077 | + + + | Race | Unknown | + + + | Ethnic Group | Unknown | + + + Author + + + | Author | [facility] | | | and [place] | + + + | Organization | [facility] | | | and [...] Team Providers + +------+ + | Care Marketing Executive Name | Role | Phone | + +------+ + | Sarah Carroll MD | PCP | | + +------+ + Encounter Details +--------+ + + + + | Date | Type | Department | Care Team | Description | +--------+ + + + + | 10/16/ | Orders Only | [facility] | Conversion | | | 2019 | | NEPHROLOGY [place] | Transaction, | | | | | [address] | Provider Unknown | | | | | [address] [place], [place] | [phone] | | | | | [address] | (Fax) | | | | | [phone] | | | +--------+ + + + [...] [address] | | | | | | [place] [address] | | | | | | [phone] | | | | | | | | +--------+---------+ + + + | 12/02/ | Office | Cardiology | Lorraine Clifton DO | | | 2019 | Visit | | [address] | | | | | | [place] | | | | | | [address] | | | | | | | | +--------+---------+ + + + | 12/13/ | Office | Nephrology | Jewel Ulloa MD | | | 2019 | Visit | | [address] [facility] | | | | | | [facility] | | | | | | [address] | | | | | | | | +--------+---------+ + + + documented as of this encounter Procedures + +--------+ + + + | Procedure Name | Priori | Date/Time | Associated Diagnosis | Comments | | | ty | | | | + +--------+ + + + | TSH WITH REFLEX | Routin | 10/16/2018 | | Results for this | | | e | 11:20 AM | | procedure are in the | | | | PST | | results section. | + +--------+ + + + | IRON AND IRON | Routin | 10/16/2018 | | Results for this | | BINDING CAPACITY | e | 11:20 AM | | procedure are in the | | | | PST | | results section. | + +--------+ + + + documented in this encounter Results TSH with Reflex (10/16/2018 11:20 AM PST) + +-------+ + + + | Component | Value | Ref Range | Performed | Pathologist | | | | | At | Signature | + +-------+ + + + | TSH | 3.35 | 0.270 - 4.20 | EXTERNAL | | | | | | LAB | | + +-------+ + + + + + | Specimen | + + | | + + + +---------+ + + | Performing | Address | City/State/Zipcode | Phone Number | | Organization | | | | + +---------+ + + | EXTERNAL LAB | | | | + +---------+ + + Iron and Iron Binding Capacity (10/16/2018 11:20 AM PST) + +--------+ + + + | Component | Value | Ref Range | Performed | Pathologist | | | | | At | Signature | + +--------+ + + + | Iron | 114.98 | 37 - 160 | EXTERNAL | | | | | | LAB | | + +--------+ + + + | Iron | 37.5 | 20 - 55 | EXTERNAL | | | Saturation | | | LAB | | + +--------+ + + + | TIBC | 307 | 245 - 400 | EXTERNAL | | | | | | LAB | | + +--------+ + + + + + | Specimen | + + | Blood specimen | | (specimen) | + + + +---------+ + + | Performing | Address | City/State/Zipcode | Phone Number | | Organization | | | | + +---------+ + + | EXTERNAL LAB | | | | + +---------+ + + documented in this encounter Visit Diagnoses Not on filedocumented in this encounter"
--- OUTSIDE RECORDS SUMMARY | ~2019-07-10 | XMS | Encounter Summary ---
Demographics + + + | Address | [address] | | | [place] [address] | + + + | Home Phone | | + + + | Preferred Language | Unknown | + + + | Marital Status | Single | + + + | Methodist Affiliation | LDS | + + + | Race | White | + + + | Ethnic Group | Not or | + + + Author + + + | Author | [facility] | + + + | Organization | [facility] | + + + | Address | Unknown | + + + | Phone | Unavailable | + + + Support + + + + + | Name | Relationship | Address | Phone | + + + + + | Toby Latham | [place] | [address] | | | | | [place] | | | | | [address] | | + + + + + Care Team Providers + +------+ + | Care Package Dyeing Machine Operator Name | Role | Phone | + +------+ + | Sarah Carroll MD | PCP | | + +------+ + Reason for Visit + + + | Reason | Comments | + + + | Telephone follow-up | | + + + Encounter Details +--------+ + + + + | Date | Type | Department | Care Team | Description | +--------+ + + + + | 04/15/ | Telephone | [facility] | [place], | Telephone follow-up | | 2019 | | [place] [address] | MD [address] | | | | | N[place] Grijalva Mailcode: | Jeffery [address] | | | | | [address] [place] [address] | [place], [place] | | | | | [facility], | [address] | | | | | [address] | [phone] | | | | | [place], [place] | | | | | | [address] | | | | | | [phone] | | | +--------+ + + + + Social History + +-------+ +--------+------+ | Tobacco Use | Types | Packs/Day | Years | Date | | | | | Used | | + +-------+ +--------+------+ | Never Smoker | | | | | + +-------+ +--------+------+ + +------+---+--------+ | Smokeless Tobacco: | Chew [...] Description | +--------+---------+ + + + | 09/10/ | Office | Orthopedics | Richard Harvey, | | | 2019 | Visit | | [address] | | | | | | [address] | | | | | | [place], [place] | | | | | | [address] | | | | | | [phone] | | | | | | | | +--------+---------+ + + + documented as of this encounter Visit Diagnoses Not on filedocumented in this encounter"
--- OUTSIDE RECORDS SUMMARY | ~2019-07-10 | XMS | Encounter Summary ---
Demographics + + + | Address | [address] | | | [place] [address] | + + + | Home Phone | | + + + | Preferred Language | Unknown | + + + | Marital Status | Single | + + + | Mormonism Affiliation | 1077 | + + + | Race | Unknown | + + + | Ethnic Group | Unknown | + + + Author + + + | Author | [facility] | | | and [place] | + + + | Organization | [facility] | | | and [...] Team Providers + +------+ + | Care Seismic Prospecting Supervisor Name | Role | Phone | + +------+ + | Sarah Carroll MD | PCP | | + +------+ + Encounter Details +--------+ + + + + | Date | Type | Department | Care Team | Description | +--------+ + + + + | 12/18/ | Orders Only | [facility] | Jewel Ulloa MD | | | 2019 | | NEPHROLOGY [place] | [address] [place] | | | | | [address] [place] | [address] [place], [place] | | | | | [address] [place], [place] | [address] | | | | | [address] | | | | | | [phone] | | | +--------+ + + + + Social History + +-------+ +--------+------+ | Tobacco Use | Types | Packs/Day | Years | Date | | | | | Used | | + +-------+ +--------+------+ | Never Smoker | | | | | + +-------+ +--------+------+ + +------+---+---+ | Smokeless Tobacco: | Chew | | | | Former User | | | | + +------+---+---+ + + +---------+ + | Alcohol Use [...] [address] | | | | | | [place] [address] | | | | | | [phone] | | | | | | | | +--------+---------+ + + + | 12/02/ | Office | Cardiology | Lorraine Clifton DO | | | 2019 | Visit | | [address] | | | | | | [place] | | | | | | [address] | | | | | | | | +--------+---------+ + + + | 12/13/ | Office | Nephrology | Jewel Ulloa MD | | | 2019 | Visit | | [address] [facility] | | | | | | [address] [place] | | | | | | [address] | | | | | | | | +--------+---------+ + + + documented as of this encounter Procedures + +--------+ + + + | Procedure Name | Priori | Date/Time | Associated Diagnosis | Comments | | | ty | | | | + +--------+ + + + | EXTERNAL LAB: SHARDA | Routin | 12/18/2018 | | Results for this | | | e | 10:55 AM | | procedure are in the | | | | PDT | | results section. | + +--------+ + + + | URIC ACID | Routin | 12/18/2018 | | Results for this | | | e | 10:55 AM | | procedure are in the | | | | PDT | | results section. | + +--------+ + + + | RENAL FUNCTION PANEL | Routin | 12/18/2018 | | Results for this | | | e | 10:55 AM | | procedure are in the | | | | PDT | | results section. | + +--------+ + + + documented in this encounter Results External Lab: CBC (12/18/2018 10:55 AM PDT) + + + + + + | Component | Value | Ref Range | Performed | Pathologist | | | | | At | Signature | + + + + + + | WBC | 6.2 | 4.5 - 11.0 10 | EXTERNAL | | | | | | LAB | | + + + + + + | RED CELL | 3.82 (A) | 4.3 - 5.7 10 | EXTERNAL | | | COUNT | | | LAB | | + + + + + + | Hgb | 12.9 (A) | 13.5 - 18.0 | EXTERNAL | | | | | g/dL | LAB | | + + + + + + | Hematocrit, | 38.2 (A) | 41 - 50 % | EXTERNAL | | | POC | | | LAB | | + + + + + + | MCV | 100 (A) | 81 - 99 fL | EXTERNAL | | | | | | LAB | | + + + + + + | MCH | 34 (A) | 27 - 33 pg | EXTERNAL | | | | | | LAB | | + + + + + + | MCHC | 34 | 30 - 36 g/dL | EXTERNAL | | | | | | LAB | | + + + + + + | Platelet | 259 | 140 - 440 K/ L | EXTERNAL | | | Count | | | LAB | | | Plasma | | | | | + + + + + + | RDW-CV | 15.2 (A) | 10.5 - 15.0 % | EXTERNAL | | | | | | LAB | | + + + + + + | MPV | | fL | EXTERNAL | | | | | | LAB | | + + + + + + | Differentia | | | EXTERNAL | | | l Type | | | LAB | | + + + + + + | % Segmented | 63.4 | 39 - 80 % | EXTERNAL | | | | | | LAB | | | Neutrophils | | | | | + + + + + + | % | 22.5 (A) | 24 - 44 % | EXTERNAL | | | Lymphocytes | | | LAB | | + + + + + + | % Monocytes | 8.2 | 0 - 12 % | EXTERNAL | | | | | | LAB | | + + + + + + | % | 4.7 | 0 - 6 % | EXTERNAL | | | Eosinophils | | | LAB | | + + + + + + | % Basophils | 1.2 | 0 - 2 % | EXTERNAL | | | | | | LAB | | + + + + + + | Absolute | | / L | EXTERNAL | | | Segmented | | | LAB | | | Neutrophils | | | | | + + + + + + | Absolute | | / L | EXTERNAL | | | Lymphocytes | | | LAB | | + + + + + + | Absolute | | / L | EXTERNAL | | | Monocytes | | | LAB | | + + + + + + | Absolute | | / L | EXTERNAL | | | Eosinophils | | | LAB | | + + + + + + | Absolute | | / L | EXTERNAL | | | Basophils | | | LAB | | + + + + + + + + | Specimen | + + | Blood specimen | | (specimen) | + + + +---------+ + + | Performing | Address | City/State/Zipcode | Phone Number | | Organization | | | | + +---------+ + + | EXTERNAL LAB | | | | + +---------+ + + Uric Acid (12/18/2018 10:55 AM PDT) + +---------+ + + + | Component | Value | Ref Range | Performed | Pathologist | | | | | At | Signature | + +---------+ + + + | Uric Acid | 9.9 (A) | 4.4 - 7.6 | EXTERNAL | | | | | | LAB | | + +---------+ + + + + + | Specimen | + + | Blood specimen | | (specimen) | + + + +---------+ + + | Performing | Address | City/State/Zipcode | Phone Number | | Organization | | | | + +---------+ + + | EXTERNAL LAB | | | | + +---------+ + + Renal Function Panel (12/18/2018 10:55 AM PDT) + + + + + + | Component | Value | Ref Range | Performed | Pathologist | | | | | At | Signature | + + + + + + | Glucose, | 124 (A) | 70 - 100 mg/dL | EXTERNAL | | | Fasting | | | LAB | | + + + + + + | BUN | 41 (A) | 6 - 23 mg/dL | EXTERNAL | | | | | | LAB | | + + + + + + | Creatinine | 3.30 (A) | 0.70 - 1.33 | EXTERNAL | | | | | mg/dL | LAB | | + + + + + + | PHOSPHORUS | 3.1 | 2.5 - 5.0 mg/dL | EXTERNAL | | | | | | LAB | | + + + + + + | Albumin | 3.9 | 3.5 - 5.0 | EXTERNAL | | | | | | LAB | | + + + + + + | Na | 140 | 132 - 143 | EXTERNAL | | | | | mmol/L | LAB | | + + + + + + | K | 4.5 | 3.6 - 5.1 | EXTERNAL | | | | | mmol/L | LAB | | + + + + + + | Cl | 100 | 95 - 112 mmol/L | EXTERNAL | | | | | | LAB | | + + + + + + | CO2 | 29 | 19 - 31 mmol/L | EXTERNAL | | | | | | LAB | | + + + + + + | Anion Gap | 15.5 | 7 - 21 mmol/L | EXTERNAL | | | | | | LAB | | + + + + + + | eGFR if not | | | EXTERNAL | | | | | | LAB | | | MALAGASY | | | | | + + + + + + | Phosphorus, | | | EXTERNAL | | | Inorganic | | | LAB | | + + + + + + | BUN/Creatin | 12.4 | 6.0 - 28.6 | EXTERNAL | | | ine Ratio | | | LAB | | + + + + + + | Calcium | 9.5 | 8.5 - 10.3 | EXTERNAL | | | | | mg/dL | LAB | | + + + + + + | Estimated | 19 (A) | 60 - 140 mg/dL | EXTERNAL | | | GFR | | | LAB | | + + + + + [...]
--- OUTSIDE RECORDS SUMMARY | ~2019-07-10 | XMS | Encounter Summary ---
Demographics + + + | Address | [address] | | | [place] [address] | + + + | Home Phone | | + + + | Preferred Language | Unknown | + + + | Marital Status | Single | + + + | Buddhist Affiliation | LDS | + + + | Race | White | + + + | Ethnic Group | Not or | + + + Author + + + | Author | [facility] | + + + | Organization | [facility] | + + + | Address | Unknown | + + + | Phone | Unavailable | + + + Support + + + + + | Name | Relationship | Address | Phone | + + + + + | Toby Latham | [place] | [address] | | | | | [place] | | | | | [address] | | + + + + + Care Team Providers + +------+ + | Care Staff Respiratory Therapist Name | Role | Phone | + +------+ + | Sarah Carroll MD | PCP | | + +------+ + Encounter Details +--------+ + + + + | Date | Type | Department | Care Team | Description | +--------+ + + + + | 07/01/ | Supervisor Electronics Assembly | Digestive Health | [place], | Constipation, | | 2019 | | [place] [facility] [address] | MD [address] | unspecified | | | | SAR[address] Grij[address] | [address] | constipation type | | | | Mailcode: Center | [place], [place] | (Primary Dx) | | | | for Health and | [address] | | | | | [facility] | [phone] | | | | | [place], [place] | | | | | | [address] | | | | | | [phone] | | | +--------+ + + + + Social History + +-------+ +--------+------+ | Tobacco Use | Types | Packs/Day | Years | Date | | | | | Used | | + +-------+ +--------+------+ | Never Smoker | | | | | + +-------+ +--------+------+ + +------+---+--------+ | Smokeless Tobacco: | Chew | | Quit: | | Former User | | | 2015 | + +------+---+--------+ + + +---------+ + [...] 2019 | Visit | | [address] | | | | | | [address] | | | | | | [place], [place] | | | | | | [address] | | | | | | [phone] | | | | | | | | +--------+---------+ + + + documented as of this encounter Visit Diagnoses + + | Diagnosis | + + | Constipation, unspecified constipation type - Primary | + + documented in this encounter"
--- OUTSIDE RECORDS SUMMARY | ~2019-07-10 | XMS | Encounter Summary ---
Demographics + + + | Address | [address] | | | [place] [address] | + + + | Home Phone | | + + + | Preferred Language | Unknown | + + + | Marital Status | Single | + + + | Methodist Affiliation | 1077 | + + + [...] Team Providers + +------+ + | Care Furniture Crater Name | Role | Phone | + [...] | | | neoplasm of | | [phone] | | | | | sigmoid | | Fax: | | | | | colon (HCC) | | [phone] | | | | | [C18.7] | | | | | | | Procedures | | | | | | | ME PART | | | | | | [...] | | | | [place] | [phone] | | | | | [address] | | | | | | [phone] | | | +--------+---------+ + + + [...] Electronically signed by: Oumou Kinsey, 08/22/2017 6:48 [facility] documented in this encounter Discharge Instructions Instructions Gretel Peña RN - 08/23/2017 [facility] Patient Belongings Aaron Latham 1960 Valuables Dentures: None Vision - Corrective Lenses: None Hearing Aid: None Jewelry: None Clothing: Pants, Shirt, Footwear ( Duffel/CPAP/CANE/Hospital provided bag with clothing sen t to PACU pt. storage bins) Other Valuables: CPAP/BiPAP, Secured on Unit Other Valuables: None Home Medications: None Patient Signature: Clinician/Computer Systems Manager Signature: Incision Care: Abdomen Dressing your incision [...] by your healthcare provider Date Last Reviewed: 07/12/201619993486-6156 [employer]. [address] [place] [address]. All righ ts reserved. This information is [...] You may c ough up blood. 2015 [employer] All illustrations and images included in CareNotes a re the copyrighted property of [employer] or [employer]. documented in this encounter Medications at Time [...] | | | 325 mg tablet | daily (with | | | | | | | breakfast). | | | | | + + [...] 124/67 Pulse: 83 62 69 Resp: 17 18 20 Temp: 37.1 C (98.7 F) 36.7 C (98.1 F) 36.8 C (98.3 F) TempSrc: Temporal Temporal Temporal SpO2: 94% 93% Weight: (!) 156.9 kg (345 lb 14.4 oz) Height: I's&O's: Date 08/22/17 0701 - 08/23/17 0700 08/23/17 07 - 08/24/17 0700 Shift 3569-3174 2399-8728 24 Hour Total 7614-8992 1181-3996 24 Hour Total I N T A [...] Arango - 08/22/2017 4:26 PM PSTSocial Work: [facility] called and they do not service the area in [place] where patient lives. Called [facility] in [place]. Made referral. They will verify insurance and call back hopefully in am. Spoke with pt and his mother Toby. Transport difficulties for discharge today, but their fr iend should be at [facility] at 1000 08/23. Sasha Blevins LICSW - [...] with her in her mobile home in [place], [place]. She is agreeable to home health and after review of choice s, chose [facility]. Referral made to [facility] by voicemail and fa x. Will await response from them on whether they can follow; would need to call them when pt d/c's but otherwise they can follow in [facility]. Pt will have a friend pick him up at d/c. SARAH w prabhakar continue to follow and assist with d/c [...] 8.5 9.0 Radiology data: No results found. ehul Blanc MD - 08/20/2017 6:52 AM PSTFormatting [...] Vitals: 08/19/17 2358 08/20/17 0005 08/20/17 0330 01/09/18 0424 BP: 130/66 133/75 Pulse: 79 77 76 80 Resp: 15 16 16 18 Temp: 36.4 C (97.6 F) 36.6 C (97.8 F) TempSrc: Temporal Temporal SpO2: 90% 92% 91% 93% Weight: Height: I's&O's: Date 08/19/17 07 - 08/20/17 0708/20/17 07 - 08/21/17 0700 Shift 4613-5018 5287-9366 24 Hour Total 4200-1059 4438-4883 24 Hour Total I N T A [...] 850 (5.4) 2050 (13.1) 2900 (18.5) NET -690 -732 -987 Weight (kg) 156.9 156.9 156.9 156.9 [...] 08/19/17 0708/19/17 07 - 08/20/17 0700 Shift 2645-7596 4522-2300 24 Hour Total 4103-9350 2985-6962 24 Hour Total I N T A [...] (mL/kg) 1400 (8.9) 2675 (17) 4075 (26) [facility] 1383 -1902 Weight (kg) 156.9 156.9 156.9 156.9 156.9 [...] 0700 08/18/17 0701 - 08/19/17 0700 Shift 5640-6185 7211-0071 24 Hour Total 3033-5818 4210-8077 24 Hour Total I N T A [...] 0700 08/17/17 07 - 08/18/17 0700 Shift 9139-4083 24 Hour Total 0339-6666 1728-8328 24 Hour Total I N T A [...] U T P U T Urine (mL/kg/hr) 697 439 3858 (0.7) 1300 Blood 150 Shift Total (mL/kg) [...] [address] | | | | | | [place] [address] | | | | | | [phone] | | | | | | | | +--------+---------+ + + + | 12/02/ | Office | Cardiology | Lorraine Clifton DO | | | 2019 | Visit | | [address] | | | | | | [place] | | | | | | [address] | | | | | | | | +--------+---------+ + + + | 12/13/ | Office | Nephrology | Jewel Ulloa MD | | | 2019 | Visit | | [address] [facility] | | | | | | [address] [place] | | | | | | [address] | | | | | | | [...] + | [facility] | [address] | [place] [address] | | | [facility] | | | | | LABORATORY [...] + + | [facility] [place] | [address] | [place] [address] | | | [facility] | | | | | LABORATORY [...] + + | Glucose | 149 (H)Comment: Montserratian | 65 - 99 mg/dL | [facility] [...] | + + + + + | [facility] | [address] | [place] [address] | | | [facility] | | | | | LABORATORY | | | | + + + + + Surgical Pathology Exam (08/16/2017 12:53 PM PST) + + | Specimen | + + | | + + + + + | Narrative | Performed At | + + + | SURGICAL PATHOLOGY REPORT | [facility] | | Date Taken: 08/16/2017 Date Received: 08/16/2017 | [facility] | | Completed: 08/20/2017 Physician: Mehul KINSEY Copy to: [facility] | | DIAGNOSIS: Colon, sigmoid, segmental resection: [...] Pathologic Stage: pT1 N0. | | | 0-M Bladimir Staley MD Electronic signature GROSS | | [...] cm to 0.5 cm in greatest dimension. Press Machine Feeder | | | sections are submitted as [...] the pathologic diagnosis. A: | | | [id number], [address], [address]5916, 33496, 34202(e) | | | PROCEDURES/ADDENDA SPECIAL STAINS DIAGNOSIS: [...] developed and their performance characteristics determined by [facility]. This test is used for clinical | | | purposes. It should not be regarded as investigational or for | | | research. [facility] is certified under the Clinical | | | Laboratory Improvement Amendments of 1988 (CLIA) as qualified to | | | perform high complexity clinical laboratory testing. Comment: | | | Breast predictive markers have not been validated on decalcified | | | specimens. Bladimir Staley MD Testing performed | | | at: [facility] | | | Michelle Arredondo, Director [address] [place] [address] [place] [address] | | | [address] | | + + + + + + + + | Performing | Address | City/State/[facility] | Phone Number | | Organization | | | | + + + + + | [facility] | [address] | [place] [address] | | | [facility] | | | | | LABORATORY [...] (H) | 21 - 28 mmol/L | [facility] | | | | | [facility] | | | | | | [facility] | | | | | | [facility] | | | | | | CENTER | | | | | | LABORATORY | | + + + + + + | Glucose | 113 (H)Comment: Montserratian | 65 - 99 mg/dL | [facility] | | | | Diabetes Association | [...] + + | [facility] | [address] | [place] [address] | | | [facility] | | | | | LABORATORY [...] + + | [facility] | [address] | [place] [address] | | | [facility] | | | | | LABORATORY | | | | + + + + + MRSA SYEDA (08/16/2017 9:15 AM PST) + + + [...] [address] | [place] [address] | | | [facility] | | | | | [...] | + + + + + | [facility] | [address] | [place] [address] | | | [facility] | | | | | LABORATORY [...] | | | | at 1843, Cullen holden., | | | | | | | [...] HOURS PRN, Itching, | | | Starting 08/16/17 at 1843, | | | Oral route [...] PRN, Muscle spasms, | | | Starting 08/16/17 at 1843 | | + +---+ [...] policy and contact | | | provider conference and event organiser, | | + +---+ | | | [...] | | | | First dose on 1/5/18 at | | AM PST | | [...]
--- OUTSIDE RECORDS SUMMARY | ~2019-07-10 | XMS | Encounter Summary ---
Demographics + + + | Address | [address] | | | [place] [address] | + + + | Home Phone | | + + + | Preferred Language | Unknown | + + + | Marital Status | Single | + + + | Nondenominational Affiliation | LDS | + + + | Race | White | + + + | Ethnic Group | Not or | + + + Author + + + | Author | [facility] | + + + | Organization | [facility] | + + + | Address | Unknown | + + + | Phone | Unavailable | + + + Support + + + + + | Name | Relationship | Address | Phone | + + + + + | Toby Latham | ANNA | [address] | | | | | [place] | | | | | [address] | | + + + + + Care Team Providers + +------+ + | Care Director Global Intelligence Name | Role | Phone | + +------+ + | Sarah Carroll MD | PCP | | + +------+ + Reason for Visit + + + | Reason | Comments | + + + | Pre-operative | | | evaluation | | + + + Encounter Details +--------+ + + + + | Date | Type | Department | Care Team | Description | +--------+ + + + + | 06/26/ | Telephone-S | Preoperative | | Pre-operative | | 2019 | cheduled | [facility] at | | evaluation | | | | [facility] | | | | | | [address] | | | | | | Mail Code: OC8PM | | | | | | [facility] | | | | | | and Healing, | | | | | | [address] | | | | | | [place], [place] | | | | | | [address] | | | | | | [phone] | | | +--------+ + + + + Anesthesia Record + + + + + | Procedure Name | Responsible | Anesthesia Start | Anesthesia Stop Time | | | Anesthesiologist | Time | | + + + + + | COLONOSCOPY | Adolfo Ace MD | 07/01/19 1006 | 07/01/19 1241 | + + + + + +----+---+ + + | Da | T | Event | Comment | | te | i | | | | | m | | | | | e | | | +----+---+ + + | 11 | 1 | Eq Check | Anesthesia machine checked Equipment verified | | /2 | 0 | | | | 0/ | 0 | | | | 20 | 1 | | | | 19 | | | | +----+---+ + + | | 1 | Pt. Check | Prior to anesthesia start, pt. Identified, examined, chart | | | 0 | | reviewed, PARQ held, anesthetic plan made or approved by | | | 0 | | attending anesthesiologist. NPO status confirmed as appropriate | | | 1 | | for procedure Preoperative evaluation: unchanged | +----+---+ + + | | 1 | An Start | | | | 0 | | | | | 0 | | | | | 6 | | | +----+---+ + + | | 1 | An Start | | | | 0 | Data | | | | 0 | | | | | 7 | | | +----+---+ + + | | 1 | Vitals | Monitors applied Vital signs checked Patient ready for anesthesia | | | 0 | Checked | | | | 0 | | | | | 7 | | | +----+---+ + + | | 1 | O2 by FM | | | | 0 | | | | | 0 | | | | | 9 | | | +----+---+ + + | | 1 | Ready | | | | 0 | | | | | 1 | | | | | 4 | | | +----+---+ + + | | 1 | Timeout | | | | 0 | | | | | 1 | | | | | 4 | | | +----+---+ + + | | 1 | Abx held | Contraindicated, or not indicated for this procedure, or already | | | 0 | Medical or | receiving antibiotics | | | 1 | Surgical | | | | 7 | Reason | | +----+---+ + + | | 1 | Incision | | | | 0 | | | | | 2 | | | | | 0 | | | +----+---+ + + | | 1 | Surgery end | | | | 2 | | | | | 3 | | | | | 5 | | | +----+---+ + + | | 1 | an stop | | | | 2 | data | | | | 3 | | | | | 5 | | | +----+---+ + + | | 1 | PACU Rpt | | | | 2 | Given | | | | 4 | | | | | 1 | | | +----+---+ + + | | 1 | Anesthesia | | | | 2 | End | | | | 4 | | | | | 1 | | | +----+---+ + + | | 1 | Post-Op | | | | 2 | Page | | | | 5 | | | | | 2 | | | +----+---+ + + +------+ | Meds | +------+ + + + No medications | on file. | + + + + + | No agents on file. | + + + + | No blood administrations on file. | + + +--------+ + +---------+ | Type | Details | Placement | Removal | +--------+ + +---------+ | Periph | 07/01/19; 0955; Right; | 07/01/19 09 by | | | eral | Antecubital; 20 g; Positive | Danny Weber RN | | | IV | | | | +--------+ + +---------+ documented in this encounter Social History + [...] of this encounter Patient Instructions Patient Instructions Joseph November, RN - 06/26/2019 10:12 AM PSTFormatting of this note constance ht be different from the original. PRE-GASTROINTESTINAL ENDOSCOPY/PROCEDURE INSTRUCTIONS If you have a CPAP/BiPAP machine (or other device for Sleep Apnea treatment like a mouth gu donis), please bring it with you on the day of your procedure. If you ever use a "rescue" inhaler (such as albuterol), please bring it with you on the day of your procedure. Bowel Preparation Before Colonoscopy: Follow any instructions from the GI team about bowel preparation ("prep") the day before an d potentially the morning of your procedure. You should have received these instructions by mail or email. If you have not received them, contact Endoscopy at [phone]. Eating/Drinking Instructions: Follow instructions provided by [facility] Endoscopy. You should have received these instruction s by mail or email. If you have not received them, contact Endoscopy at [phone]. General Medications Instructions Oral iron: If you are scheduled for Double Balloon Enteroscopy please stop taking oral iron supplements 7 days prior to your procedure. Multivitamins containing iron are OK to continu e Anti-Diarrheals (Imodium, Lomotil, etc)- Stop 3 days prior to colonoscopy or flexible sigmo idoscopy only Continue to take all other medications as prescribed, including: ? Aspirin ? Pain medications ? Non-steroidal anti-inflammatory drugs (Advil, Motrin, Aleve, etc) Several days before your procedure: If you take Plavix/clopidogrel, coumadin/warfarin or lovenox, a new anticoagulant (apixaban /Eliquis, rivaroxaban/Xarelto, dabigatran/Pradaxa, or Plavix/Brilinta, your prescriber ([facility] doctor, electromedical equipment repairer, anticoagulation clinic, ex.) should be the one to confirm the date of your last dose or IF IT IS EVEN SAFE TO HOLD AT THIS TIME On the morning of the procedure TAKE the following medications with a sip of water: TORSEMIDE TABLET HYDRALAZINE 50 MG TABLET LEVOTHYROXINE 25 MCG TABLET ALLOPURINOL 300 MG TABLET CARVEDILOL 6.25 MG TABLET COLCHICINE 0.6 MG TABLET On the morning of the procedure DO NOT TAKE the following medications: CALCIUM CARBONATE 500 MG (1,250 MG)-VITAMIN D3 200 UNIT TABLET FERROUS SULFATE 325 MG (65 MG IRON) TABLET MAGNESIUM OXIDE 400 MG (241.3 MG MAGNESIUM) TABLET WARFARIN 5 MG TABLET - patient is holding as of 08/26/18 Do not take any or herbal supplements 14 days prior to your procedure. These drugs m ay interfere with normal blood clotting and may cause excessive bleeding and bruising during or after the procedure. If you need a pain medication for general purposes, use Tylenol as directed. OK to take it even on the morning of the procedure, if needed. If you are in doubt about any medications that you are taking, please contact our of [facility]. Other Important Guidelines Do not smoke, drink alcohol or use recreational drugs for 24 hours before your proce dure Watch for any change in your health condition. Let your GI provider know right away if you do not feel well. Do not wear makeup, perfume, lotions, deodorant, powder or hairspray. Do not wear any jewelry to the hospital. Wear loose, comfortable clothing. Leave all your valuables at home. Allow enough travel time so you re not late for your check in Please remember to brush your teeth the night before and the morning of your procedu re. Procedure check-in location: [facility] Procedure Check in Time: The Preoperative Medicine Clinic is not in the position to give you accurate information re garding your check in time. Going Home: Your procedure team will decide when you are medically ready to go home. Please arrange for a ride on the day of your procedure. Due to the effects of anesthesia, you will not be able to drive until the day following your procedure. You will not be able to drive yourself A responsible adult MUST escort you home. You may not drive yourself Your responsible adult can drive you or they can accompany you in a taxi, ride share (barger ch as Uber/Lyft), or public transportation. An Uber/Lyft/maintenance truck driver does not count as the r esponsible adult who accompanies you. Certified Medical Transport can transport you after surgery as long as a competent adult is waiting for you on arrival at your destination Although not mandatory, it is highly recommended that a patient has a responsible person with you to provide overnight monitoring/support following discharge. If you have questions or concerns after you go home, call your doctor s office. If it is after office hours, call the [facility] test and research reactor operator at [phone] and ask them to page the on-c all GI provider. Your surgical team will decide when you are medically ready to go home.Electronically si gned by Nini Ruiz RN at 06/26/2019 10:16 AM PST documented in this encounter Plan of Treatment +--------+---------+ + + + | Date | Type | Specialty | Care Team | Description | +--------+---------+ + + + | 09/10/ | Office | Orthopedics | Richard Harvey, | | | 2019 | Visit | | [address] | | | | | | [address] | | | | | | [place], [place] | | | | | | [address] | | | | | | [phone] | | | | | | | | +--------+---------+ + + + documented as of this encounter Visit Diagnoses Not on filedocumented in this encounter
--- OUTSIDE RECORDS SUMMARY | ~2019-07-10 | XMS | Encounter Summary ---
Demographics + + + | Address | [address] | | | [place] [address] | + + + | Home Phone | | + + + | Preferred Language | Unknown | + + + | Marital Status | Single | + + + | Gnosticist Affiliation | LDS | + + + | Race | White | + + + | Ethnic Group | Not or | + + + Author + + + | Author | [facility] | + + + | Organization | [facility] | + + + | Address | Unknown | + + + | Phone | Unavailable | + + + Support + + + + + | Name | Relationship | Address | Phone | + + + + + | Toby Latham | ANNA | [address] | | | | | [place] | | | | | [address] | | + + + + + Care Team Providers + +------+ + | Care Industrial Tractor Driver Name | Role | Phone | + [...] | Polyp of | [place], | [address] | | | | | colon, | MD Charles | [address] | | | | | villous | [address] | | | | | adenoma | [address] | Mailcode: | | | | | Procedures | Rd | [address] | | | | | CONSULT TO | [place], [place] | [place] | | | | | GI PROCEDURE | [address] | [address] | | | | | UNIT: | Phone: | [place], | | | | | COLONOSCOPY | [phone] | [place] [address] | | | | | | Fax: | Phone: | | | | | | [phone] | [phone] | | | | | | | Fax: | | | | | | | [phone] | +--------+--------+ + + + + Encounter Details +--------+ + + + + | Date | Type | Department | Care Team | Description | +--------+ + + + + | 04/14/ | 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[employer] | [facility] | [place], | Polyp of colon, | | 2018 | | [place] [address] | [address] | villous adenoma | | | | [address] Mailcode: | [address] | (Primary Dx) | | | | [facility] | [place], [place] | | | | | Health and [facility], | [address] | | | | | [facility] | [phone] | | | | | [place], [place] | | | | | | [address] | | | | | | [phone] | | | +--------+ + + + [...] Rd | | | | | | [place], [place] | | | | | | [address] | | | | | | [phone] | | | | | | | | +--------+---------+ + + + documented as of this encounter Visit Diagnoses + + | Diagnosis | + + | Polyp of colon, villous adenoma - Primary Benign neoplasm of colon | + + documented in this encounter"
--- OUTSIDE RECORDS SUMMARY | ~2019-07-10 | XMS | Encounter Summary ---
Demographics + + + | Address | [address] | | | [place] [address] | + + + | Home Phone | | + + + | Preferred Language | Unknown | + + + | Marital Status | Single | + + + | Bahai Affiliation | 1077 | + + + | Race | Unknown | + + + | Ethnic Group | Unknown | + + + Author + + + | Author | [facility] | | | and [place] | + + + | Organization | [facility] | | | [...] Team Providers + +------+ + | Care Sr. Operations Manager Name | Role | Phone | + +------+ + | Sarah Carroll MD | PCP | | + +------+ + Reason for Visit + + + | Reason | Comments | + + + | Imaging Only | | + + + Encounter Details +--------+ + + + + | Date | Type | Department | Care Team | Description | +--------+ + + + + | 12/29/ | Telephone | [facility] [place] | Riccardo Malhotra, | Imaging Only | | 2018 | | PHYSIATRY [address] | MD [address] | | | | | [place], | [place], [place] | | | | | [place] [address] | [address] | | | | | [phone] | | | +--------+ + + + [...] | +--------+---------+ + + + | 07/13/ Office | Cardiology | Ileana Henson | | | 2019 | Visit | | [address] | | | | | | [address] | | | | | | [place] [address] | | | | | | [phone] | | | | | | | | +--------+---------+ + + + | 12/02/ | Office | Cardiology | Lorraine Clifton DO | | | 2019 | Visit | | [address] | | | | | | [place] | | | | | | [address] | | | | | | | | +--------+---------+ + + + | 12/13/ | Office | Nephrology | Jewel Ulloa MD | | | 2019 | Visit | | [address] | | | | | | [address] [place] | | | | | | [address] | | | | | | | | +--------+---------+ + + + documented as of this encounter Visit Diagnoses Not on filedocumented in this encounter"
--- OUTSIDE RECORDS SUMMARY | ~2019-07-10 | XMS | Encounter Summary ---
Demographics + + + | Address | [address] | | | [place] [address] | + + + | Home Phone | | + + + | Preferred Language | Unknown | + + + | Marital Status | Single | + + + | Latter Day Affiliation | 1077 | + + + | Race | Unknown | + + + | Ethnic Group | Unknown | + + + Author + + + | Author | [facility] | | | and [place] | + + + | Organization | [facility] | | | and [...] Team Providers + +------+ + | Care Family Specialist Name | Role | Phone | + +------+ + | Sarah Carroll MD | PCP | | + +------+ + Reason for Visit +--------+ + | Reason | Comments | +--------+ + | Mass | | +--------+ + Evaluate & Treat (Routine) +--------+--------+ + + + + | Status | Reason | Specialty | Diagnoses / | Referred By | Referred To | | | | | Procedures | Contact | Contact | +--------+--------+ + + + + | Closed | | Urology | Diagnoses | [place], | [place], | | | | | Renal mass | Sarah Gallegos MD | MD Patrice | | | | | hx renal | [address] | [address] | | | | | mass | [address] | [address] | | | | | Procedures | [place], | [place] | | | | | [place] OFFICE | [place] [address] | [address] Phone: | | | | | OUTPATIENT | Phone: | [phone] | | | | | VISIT 15 | [phone] | Fax: | | | | | MINUTES CC | Fax: | [phone] | | | | | FOLLOW UP | [phone] | | +--------+--------+ + + + + Encounter Details +--------+---------+ + + + | Date | Type | Department | Care Team | Description | +--------+---------+ + + + | 05/15/ | Office | [facility] | Patrice Cross MD | Renal mass (Primary | | 2018 | Visit | [address] | [address] | Dx); Class 3 severe | | | | [address] | [address] [place] | obesity due to | | | | [place] | [address] | excess calories with | | | | [address] | | body mass index | | | | [phone] | | (BMI) of 45.0 to | | | | | | 49.9 in adult, | | | | | | unspecified whether | | | | | | serious comorbidity | | | | | | present (HCC); | | | | | | Current use of | | | | | | anticoagulant | | | | | | therapy; Abdominal | | | | | | adhesions | +--------+---------+ + + + Social History [...] + + + | Blood Pressure | 146/60 | 05/15/2018 12:54 PM | | | | | PDT | | + + + + + | Pulse | - | [...] + + + + | Weight | 149.7 kg (330 lb) | 05/15/2018 12:54 PM | | | | | PDT | | + + + + + | Height | 180.3 cm (5' 11") | 05/15/2018 12:54 PM | | | | | PDT | | + + + + + | Body Mass Index | 46.03 | 05/15/2018 12:54 PM | | | | | PDT [...] of this encounter Patient Instructions Patient Instructions Patrice Cross MD - 05/15/2018 1:30 PM PDTFormatting of this note migh t be different from the original. Laparoscopic Nephrectomy Laparoscopic nephroureterectomy is surgery to remove a kidney. You may need this surgery fo r cancer in a kidney or ureter. Yourtwo kidneys are organs that filter your blood. They re move waste chemicals and extra water to make urine. Ureters are tubes that carry urine from your kidneys to your bladder. For the surgery, the surgeon uses a tool called a laparoscope (scope). This is a thin, ligh kofi tube with a camera on the end. The scope lets the surgeon work through a few small cuts (incisions). In most cases, after surgery your body can still work well with only one health y kidney and ureter. How to say it LL-anc-mve-SKOP-ik JEB-[id number]-[id number]-lt-sryw-SRJ-tuh-joey Getting readyfor surgery Follow any instructions from your healthcare provider. Tell your provider about any medicines you are taking. You may need to stop taking all or s ome of these before the test. These include: All prescription medicines Blood-thinning medicines (anticoagulants) Uwoc-dvk-btmbyzq medicines such as aspirin or ibuprofen Street drugs Herbs, vitamins, and other supplements In addition: Don't eat or drink during the 8 hours before your surgery. This includes coffee, water, gum, and mints. If your healthcare provider tells you totake medicines, take them with a s mall sip of water. Get your bowel ready for surgery 1 to 2 days before the surgery, if you have been told t o. You may need to limit your diet to only clear liquids. You may also be asked to take laxa tives or to give yourself an enema. Follow your healthcare provider s instructions. The day of surgery The surgery usually takes 3 to 5 hours. After surgery, you will stay in the hospital for 1 to 3 nights. Before the surgery begins An IV (intravenous) line is put into a vein in your arm or hand. This line supplies flui ds and medicines such as antibiotics. You may be given medicine to prevent blood clots. To keep you free of pain during the surgery, you are given general anesthesia. This medi cine puts you into a state like a deep sleep through the surgery. A tube may be put into you r throat to help you breathe. During the surgery The provider makes a few small incisions and one slightly larger incision in your belly (abdomen). The provider puts the scopethrough an incision. The scope sends live pictures of the i nside of your abdomen to a video screen. The provider fills your abdomenwith gas. This makes space for the provider to see and work. Using tools placed through the incisions, the provider gets the kidney and ureter ready for removal. The provider detaches the small piece of tissue where the ureter connects to th e bladder (bladder cuff). The provider removes the kidney, ureter, and bladder cuffthrough the larger incision. Nearby lymph nodes may be removed as well. When the surgery is complete, the provider removes all of the tools. He or she closes th e incisions with stitches or erik. The provider puts a thin tube (Swann catheter)in your bladder. This will drain your ur ine while your bladder heals. The provider will begin with laparoscopy. But he or she may need to change to open surgery for safety reasons. Open surgery is done using an incision in your abdomen or side. You ll be told more about this possibility before surgery. Recovering in the hospital After the surgery, you will be taken to a recovery room. There, you ll wake up from the a nesthesia. You may feel sleepy. You may have an upset stomach (nausea). If a breathing tube was used, your throat may be sore at first. When you are ready, you will be taken to your spital room. While in the hospital: You will be given medicines to manage your pain. Let your provider know if your pain is not going away. You ll first get IV fluids. In a day or so, you ll start on a liquid diet. You ll then slowly return to a normal diet. You ll be taught ways to cough and breathe that can keep your lungs clear and prevent pneumonia. The healthcare team may remove the Swann catheterwhile you re in the hospital. If no t, you ll be taught how to care for it at home. Recovering at home After your hospital stay, you will be released to an adult family member or friend. Have so meone stay with you for the next few days to help care for you. Recovery time varies for eac h person. Your provider will tell you when you can return to your normal routine. Until then , follow the instructions you have been given. Make sure to: Take all medicines as directed. Care for your incisions and catheter as instructed. Follow your provider s guidelines for showering. Don't swim, bathe, use a hot tub, or doother activities that cover the incision with water until your provider says it s OK. Don't lift anything heavy or dostrenuous activities, as directed by your provider. Don't drive until your provider says it s OK. Don't drive if you re taking medicines that make you drowsy or sleepy. Walk at least a few times a day. Increase your pace and distance, as you feel able. Don't strainto pass stool. If needed, take stool softeners as directed by your provide r. Drink plenty of water. This helps prevent urine odor and dehydration. Follow any special diet instructions from your provider. When to call your healthcare provider Call your healthcare provider if you have any of the following: Chest pain or trouble breathing (call 911) Fever of 100.4F (38C) or higher, or as directed by your healthcare provider Symptoms of infection at incision site. These includeincreased redness or swelling, wa rmth, more pain, or bad-smelling drainage. Bloody urine or drainage from the catheter that is dark red or has clots. A small amount of blood is normal. No drainage from the catheter for more than 4 hours The catheter comes out of your bladder Pain that can't be controlled with medicines Pain or swelling inyour legs Follow-up You ll have follow-up visits so your provider can check how well you re healing. If you r stitches, erik, or catheter need to be removed, this will likely be done in 7 days. Dur ing follow-up visits, you may needteststo make sure the cancer has not returned. Risks and possible complications All procedures have some risk. The risks of laparoscopic nephroureterectomy include: Bleeding (may require a blood transfusion) Infection Blood clots Hernia at the incision sites Damage to nearby nerves, blood vessels, soft tissues, or organs Cancer returning or tumor seeding (spillage of tumor cells that can grow into new tumors ) Problems with the remaining kidney. This could lead to kidney failure. Heart attack or stroke Risks of anesthesia. The anesthesiologist will discuss these with you. Date Last Reviewed: 12/10/201619995578-4464 [employer]. [address] [place] [address]. All righ ts reserved. This information is not intended as a substitute for professional medical care. Always follow your healthcare professional's instructions. documented in this encounter Progress Notes Patrice Cross MD - 05/15/2018 1:30 PM PDTFormatting of this note might be different from t harini quinones. [facility] OFFICE NOTE Primary Care Physician: Sarah Carroll PATIENT NAME: Aaron Latham : 1960 TODAY'S DATE: 05/15/2018 CC: Renal mass History OF PRESENT ILLNESS: Aaron Latham is a 58 y.o. male referred by Dr. Bowles for evaluation of renal mass. He is seeing Dr. Bowles for colon adenocarcinoma of the descending colon. He has since u ndergone a low anterior resection, he has several comorbidities. I saw him in July 2017 and talked to him about surveillance of his masses. Our plan was to follow this every 3 mo nths, he returns today almost a year later, the mass has now grown to 4.6 cm, and it appears that there might be some new masses developing a lower pole and upper pole mass in the uppe r pole masses reported to be about 3 cm. Of note he has atrial fibrillation for which he is anticoagulated. He is reassessed today because of findings of a left renal mass. This is solid as per repo rt and approximately 2.5 cm. He has no previous smoking history. He has no family history of renal cell carcinoma. He denies gross hematuria. He has had no new-onset neurologic symp toms. He denies gross hematuria or flank pain. He has a fib and is on coumadin. He has a previous echo showing: Overall left ventricular systolic function is normal with, an EF between 60 - 65 %. This diaz s improved from an EF of 40-45% on the previous echocardiographic study, done 02/16/16. 2. There is moderate concentric left ventricular hypertrophy, unchanged from the prior stud y. 3. The diastolic filling pattern indicates impaired relaxation consistent with mild dysfunc tion (Grade I). 4. No significant valvular abnormality. 4. The right ventricle is normal in size and function. PAST MEDICAL HISTORY Past Medical History: Diagnosis Date Acid reflux disease OCCASIONALLY Anemia Atrial fibrillation (HCC) SEES DR. WEEKS Colon cancer (HCC) Cor pulmonale, chronic (HCC) Dizzy spells WHEN HE WAS ON COUMADIN. Hypertension Metabolic syndrome Sleep apnea C-PAP Umbilical hernia PAST SURGICAL HISTORY Past Surgical History: Procedure Laterality Date ANGIOGRAM 01/2017 HEART CATH COLECTOMY N/A 08/16/2017 Procedure: RESECTION BOWEL LOW ANTERIOR, FLEXIBLE SIGMOIDOSCOPY; Surgeon: Mehul Bowles MD; Location: [facility] MAIN OR COLONOSCOPY 05/22/2017 FINGER SURGERY Right 1974 AMPUTATION TONSILLECTOMY 1968 MEDICATIONS Current Outpatient Prescriptions Medication Sig Dispense Refill aspirin (ASPIRIN LOW DOSE) 81 MG tablet Aspirin Low Dose atorvaSTATin (LIPITOR) 80 MG tablet Take 80 mg by mouth nightly. bisacodyl (DULCOLAX) [address] 1 suppository rectally Twice daily as nee ded for Constipation. 10 suppository 0 carvedilol (COREG) 6.25 mg tablet Take 6.25 [...] 50 mg by mouth 3 times daily. HYDROcodone-acetaminophen (NORCO) 10-325 mg per tablet Take 1-2 tablets by mouth every 4 hours as needed for Pain. 40 tablet 0 isosorbide mononitrate (IMDUR) 60 mg ER tablet Take 60 mg by mouth Daily. magnesium oxide (MAG-OX) 400 mg tablet take 1 tablet by mouth once daily 0 magnesium oxide (MAG-OX) 400 mg tablet Take 400 mg by mouth Daily. non-formulary medication Apply topically 2 times daily. FLUCONAZOLE DMSO 5% APPLY TO T OES potassium chloride (KLOR-CON M20) 20 mEq ER tablet potassium chloride ER 20 mEq tablet, extended release(part/cryst) spironolactone (ALDACTONE) 50 mg tablet Take 50 mg by mouth Daily. torsemide (DEMADEX) 20 mg tablet Take 20 mg by mouth Daily. warfarin (COUMADIN) 5 mg tablet Take 5 mg by mouth. No current facility-administered medications for this visit. ALLERGIES No Known Allergies ROS Review of Systems Constitutional: Positive for appetite change. Negative for activity change and chills. HENT: Negative for congestion and hearing loss. Eyes: Negative for discharge and itching. Respiratory: Negative for chest tightness, wheezing and stridor. Cardiovascular: Negative for chest pain. Gastrointestinal: Positive for abdominal distention. Negative for abdominal pain, anal blee ding and blood in stool. Endocrine: Negative for cold intolerance. Genitourinary: Negative for difficulty urinating, dysuria and enuresis. Musculoskeletal: Negative for arthralgias. Skin: Negative for color change. Neurological: Negative for dizziness. Hematological: Negative for adenopathy. Psychiatric/Behavioral: The patient is nervous/anxious. PHYSICAL EXAM BP 146/60 | Ht 1.803 m (5' 11") | Wt (!) 149.7 kg (330 lb) | BMI 46.03 kg/m Physical Exam Constitutional: He is oriented to person, place, and time. He appears well-developed and we ll-nourished. No distress. Obese gentleman HENT: Head: Normocephalic and atraumatic. Eyes: EOM are normal. Right eye exhibits no discharge. Left eye exhibits no discharge. No s cleral icterus. Neck: Normal range of motion. Neck supple. No tracheal deviation present. No thyromegaly pr esent. Cardiovascular: Normal rate, regular rhythm and normal heart sounds. Exam reveals no padilla p. No murmur heard. Pulmonary/Chest: Effort normal and breath sounds normal. No stridor. No respiratory distres s. He has no wheezes. He has no rales. Abdominal: Soft. Bowel sounds are normal. He exhibits no distension and no mass. There is n o tenderness. There is no rebound and no guarding. He has a large midline incision from previous LAR and ventral hernia repair Musculoskeletal: Normal range of motion. He exhibits no edema, tenderness or deformity. Neurological: He is alert and oriented to person, place, and time. He has normal reflexes. No cranial nerve deficit. Skin: Skin is warm and dry. No rash noted. He is not diaphoretic. No erythema. No pallor. Psychiatric: He has a normal mood and affect. His behavior is normal. Diagnostic Studies: Bladder Ultrasound UA Results of last 48 hours No results found for the last 48 hours. Laboratory studies and imaging were personally reviewed by me. IMPRESSION: 1. left 2.5 cm. solid renal mass now enlarging to 4cm over the past year now with many syn chronous lesions up to 3cm 2. a fib and is on coumadin 3. Personal history of colon cancer 4. Obesity with BMI of 46 PLAN / RECOMMENDATIONS: - At this point we discussed that his renal masses or now enlarging, unfortunately he has s ynchronous lesions that are becoming more pronounced. In the setting of recommend intervent ion, because of the multiple lesions, and his large body habitus I think he would be best se rved with a laparoscopic radical nephrectomy. He has had a previous ventral hernia repair a nd open colectomy and most assuredly has abdominal adhesions from this. This may require ly sis of adhesions. We discussed the risks including bleeding and infection. After discussio n he elects to proceed. - We discussed that because of his body habitus and his adhesions this may be a more comple x procedure - He will need to be off his Coumadin one week preoperatively and his primary care provider can arrange for a Lovenox bridge if they feel that is necessary Electronically Signed by: Patrice Cross MD 05/15/2018 at 13:24 CC: Sarah Gallegos MD [address] [place] [address] documented in this encou nter Plan of Treatment +--------+---------+ + + + | Date | Type | Specialty | Care Team | Description | +--------+---------+ + + + | 07/13/ | Office | Cardiology | Ileana Henson | | | 2018 | Visit | | [address] | | | | | | [address] | | | | | | [place] [address] | | | | | | [phone] | | | | | | | | +--------+---------+ + + + | 12/02/ | Office | Cardiology | Lorraine Clifton DO | | | 2019 | Visit | | [address] | | | | | | [place] | | | | | | [address] | | | | | | | | +--------+---------+ + + + | 12/13/ | Office | Nephrology | Jewel Ulloa MD | | | 2019 | Visit | | [address] [facility] | | | | | | [address] [place], [place] | | | | | | [address] | | | | | | | | +--------+---------+ + + + documented as of this encounter Procedures + +--------+ + + + | Procedure Name | Priori | Date/Time | Associated Diagnosis | Comments | | | ty | | | | + +--------+ + + + | POCT URINALYSIS | Routin | 05/15/2018 | Renal mass | Results for this | | DIPSTICK | e | 1:10 PM | | procedure are in the | | | | PDT | | results section. | + +--------+ + + + documented in this encounter Results POCT Urinalysis Dipstick Non-Automated (05/15/2018 1:10 PM PDT) + + + + + + | Component | Value | Ref Range | Performed | Pathologist | | | | | At | Signature | + + + + + + | Color, UA, | Light Yellow | Yellow, Light | | | | POC | | Yellow | | | + + + + + + | Clarity, | Clear | | | | | UA, POC | | | | | + + + + + + | Glucose, | Negative | Negative | | | | UA, POC | | | | | + + + + + + | Bilirubin, | Negative | Negative | | | | UA, POC | | | | | + + + + + + | Ketones, | Negative | Negative, 100 | | | | UA, POC | | mg/dL | | | + + + + + + | Specific | 1.025 | 1.001 - 1.030 | | | | [place], | | | | | | UA, POC | | | | | + + + + + + | Blood, UA, | Negative | Negative | | | | POC | | | | | + + + + + + | pH, UA, POC | 5.0 | 5.0, 6.0, 7.0, | | | | | | 8.0, 5.5, 6.5, | | | | | | 7.5 | | | + + + + + + | Protein, | Negative | Negative | | | | UA, POC | | | | | + + + + + + | Urobilinoge | Negative | 0.2, Negative, | | | | n, UA, POC | | Normal, < 0.2 | | | | | | mg/dL, 1 mg/dL, | | | | | | < 0.2 E.U./dl, | | | | | | 1.0 E.U./dL, | | | | | | 0.2 mg/dL | | | + + + + + + | Nitrite, | Negative | Negative | | | | UA, POC | | | | | + + + + + + | Leukocyte | Negative | Negative | | | | Esterase, | | | | | | UA, POC | | | | | + + + + + + + + | Specimen | + + | Urine | + + documented in this encounter Visit Diagnoses + + | Diagnosis | + + | Renal mass - Primary Unspecified disorder of kidney and ureter | + + | Class 3 severe obesity due to excess calories with body mass index (BMI) of 45.0 to | | 49.9 in adult, unspecified whether serious comorbidity present (HCC) | + + | Current use of anticoagulant therapy | + + | Abdominal adhesions Peritoneal adhesions (postoperative) (postinfection) | + + documented in this encounter
--- OUTSIDE RECORDS SUMMARY | ~2019-07-10 | XMS | Encounter Summary ---
Demographics + + + | Address | [address] | | | [place] [address] | + + + | Home Phone | | + + + | Preferred Language | Unknown | + + + | Marital Status | Single | + + + | Pentecostalism Affiliation | 1077 | + + + [...] Team Providers + +------+ + | Care Ovens Supervisor Name | Role | Phone | + +------+ + | Sarah Carroll MD | PCP | | + +------+ + Encounter Details +--------+ + + + + | Date | Type | Department | Care Team | Description | +--------+ + + + + | 06/16/ | Orders Only | [facility] | Jewel Ulloa MD | Essential | | 2019 | | NEPHROLOGY [place] | [address] [place] | hypertension with | | | | [address] | [address] [place], [place] | goal blood pressure | | | | [address] | [address] | less than 130/80 | | | | [place], [place] | | (Primary Dx); | | | | [address] | | Subclinical | | | | [phone] | | hypothyroidism; | | | | | | Chronic kidney | | | | | | disease, stage 3 | | | | | | (HCC) | +--------+ + + + + Social [...] [address] | | | | | | [place] [address] | | | | | | [phone] | | | | | | | | +--------+---------+ + + + | 12/02/ | Office | Cardiology | Lorraine Clifton DO | | | 2019 | Visit | | [address] | | | | | | [place] | | | | | | [address] | | | | | | | | +--------+---------+ + + + | 12/13/ | Office | Nephrology | Jewel Ulloa MD | | | 2019 | Visit | | [address] | | | | | | [address] [place] | | | | | | [address] | | | | | | | | +--------+---------+ + + + + +------+--------+ + + | Name | Type | Priori | Associated Diagnoses | Order Schedule | | | | ty | | | + +------+--------+ + + | Renal Function Panel | Lab | Routin | Essential | Expected: | | | | e | hypertension with | 09/16/2019, Expires: | | | | | goal blood pressure | 06/16/2020 | | | | | less than 130/80 | | | | | | Chronic kidney | | | | | | disease, stage 3 | | | | | | (HCC) | | + +------+--------+ + + | CBC with | Lab | Routin | Essential | Expected: | | Differential | | e | hypertension with | 09/16/2019, Expires: | | | | | goal blood pressure | 06/16/2020 | | | | | less than 130/80 | | | | | | Chronic kidney | | | | | | disease, stage 3 | | | | | | (HCC) | | + +------+--------+ + + | Renal Function Panel | Lab | Routin | Essential | Expected: | | | | e | hypertension with | 12/15/2019, Expires: | | | | | goal blood pressure | 06/16/2020 | | | | | less than 130/80 | | | | | | Chronic kidney | | | | | | disease, stage 3 | | | | | | (HCC) | | + +------+--------+ + + | CBC with | Lab | Routin | Essential | Expected: | | Differential | | e | hypertension with | 12/15/2019, Expires: | | | | | goal blood pressure | 06/16/2020 | | | | | less than 130/80 | | | | | | Chronic kidney | | | | | | disease, stage 3 | | | | | | (HCC) | | + +------+--------+ + + | Uric Acid | Lab | Routin | Essential | Expected: | | | | e | hypertension with | 12/15/2019, Expires: | | | | | goal blood pressure | 06/16/2020 | | | | | less than 130/80 | | | | | | Chronic kidney | | | | | | disease, stage 3 | | | | | | (HCC) | | + +------+--------+ + + | Parathyroid Hormone, | Lab | Routin | Essential | Expected: | | Intact | | e | hypertension with | 12/15/2019, Expires: | | | | | goal blood pressure | 06/16/2020 | | | | | less than 130/80 | | | | | | Subclinical | | | | | | hypothyroidism | | | | | | Chronic kidney | | | | | | disease, stage 3 | | | | | | ([facility]) | | + +------+--------+ + + | Protein/Creatinine | Lab | Routin | Essential | Expected: | | Ratio, Urine | | e | hypertension with | 12/15/2019, Expires: | | | | | goal blood pressure | 06/16/2020 | | | | | less than 130/80 | | | | | | Chronic kidney | | | | | | disease, stage 3 | | | | | | ([facility]) | | + +------+--------+ + + documented as of this encounter Visit Diagnoses + + | Diagnosis | + + | Essential hypertension with goal blood pressure less than 130/80 - Primary | + + | Subclinical hypothyroidism Other specified acquired hypothyroidism | + + | Chronic kidney disease, stage 3 (HCC) | + + documented in this encounter"
--- OUTSIDE RECORDS SUMMARY | ~2019-07-10 | XMS | Encounter Summary ---
Demographics + + + | Address | [address] | | | [place] [address] | + + + | Home Phone | | + + + | Preferred Language | Unknown | + + + | Marital Status | Single | + + + | Druze Affiliation | 1077 | + + + | Race | Unknown | + + + | Ethnic Group | Unknown | + + + Author + + + | Author | [facility] | | | and [place] | + + + | Organization | [facility] | | | [...] Team Providers + +------+ + | [employer] Specialist Name | Role | Phone | [...] | +--------+ + + + + | 01/01/ | Telephone | [facility] [place] | Riccardo Malhotra, | Other | | 2018 | | PHYSI[address] | MD [address] | | | | | [place], | [place], [place] | | | | | [place] [address] | [address] | | | | | [phone] | | | +--------+ + + + [...] [place] | | | | | | [place] [address] | | | | | | [phone] | | | | | | | | +--------+---------+ + + + | 12/02/ | Office | Cardiology | Lorraine Clifton DO | | | 2019 | Visit | | [address] | | | | | | [place] | | | | | | [address] | | | | | | | | +--------+---------+ + + + | 12/13/ | Office | Nephrology | Jewel Ulloa MD | | | 2019 | Visit | | [address] | | | | | | [address] [place] | | | | | | [address] | | | | | | | | +--------+---------+ + + + documented as of this encounter Visit Diagnoses Not on filedocumented in this encounter"
--- OUTSIDE RECORDS SUMMARY | ~2019-07-10 | XMS | Encounter Summary ---
Demographics + + + | Address | [address] | | | [place] [address] | + + + | Home Phone | | + + + | Preferred Language | Unknown | + + + | Marital Status | Single | + + + | Gnosticism Affiliation | 1077 | + + + | Race | Unknown | + + + | Ethnic Group | Unknown | + + + Author + + + | Author | [facility] | | | and [place] | + + + | Organization | [facility] | | [...] Team Providers + +------+ + | Care Direct Support Staff Member Name | Role | Phone | + +------+ + | Sarah Carroll MD | PCP | | + +------+ + Encounter Details +--------+ + + + + | Date | Type | Department | Care Team | Description | +--------+ + + + + | 10/16/ | Orders Only | [facility] | Jewel Ulloa MD | | | 2019 | | NEPHROLOGY [place] | [address] [place] | | | | | [address] [place] | [address] [place], [place] | | | | | [address] [place], [place] | [address] | | | | | [address] | | | | | | [phone] | | | +--------+ + + + [...] | 07/13/ | Office | Cardiology | MaulikhaydeeIleana miller | | | 2018 | Visit | | [address] | | | | | | [place] | | | | | | [place] [address] | | | | | | [phone] | | | | | | | | +--------+---------+ + + + | 12/02/ | Office | Cardiology | Lorraine Clifton DO | | | 2019 | Visit | | [address] | | | | | | [place] | | | | | | [address] | | | | | | | | +--------+---------+ + + + | 12/13/ | Office | Nephrology | Jewel Ulloa MD | | | 2019 | Visit | | [address] [facility] | | | | | | [address] [place], [place] | | | | | | [address] | | | | | | | | +--------+---------+ + + + documented as of this encounter Procedures + +--------+ + + + | Procedure Name | Priori | Date/Time | Associated Diagnosis | Comments | | | ty | | | | + +--------+ + + + | EXTERNAL LAB: [facility] | Routin | 10/16/2018 | | Results for this | | | e | 11:20 AM | | procedure are in the | | | | PST | | results section. | + +--------+ + + + | URINALYSIS WITH | Routin | 10/16/2018 | | Results for this | | MICROSCOPIC IF | e | 11:20 AM | | procedure are in the | | INDICATED | | PST | | results section. | + +--------+ + + + | PROTEIN/CREATININE | Routin | 10/16/2018 | | Results for this | | RATIO, URINE | e | 11:20 AM | | procedure are in the | | | | PST | | results section. | + +--------+ + + + | URIC ACID | Routin | 10/16/2018 | | Results for this | | | e | 11:20 AM | | procedure are in the | | | | PST | | results section. | + +--------+ + + + | PARATHYROID HORMONE, | Routin | 10/16/2018 | | Results for this | | INTACT | e | 11:20 AM | | procedure are in the | | | | PST | | results section. | + +--------+ + + + | FERRITIN | Routin | 10/16/2018 | | Results for this | | | e | 11:20 AM | | procedure are in the | | | | PST | | results section. | + +--------+ + + + | RENAL FUNCTION PANEL | Routin | 10/16/2018 | | Results for this | | | e | 11:20 AM | | procedure are in the | | | | PST | | results section. | + +--------+ + + + documented in this encounter Results Protein/Creatinine Ratio, Urine (10/16/2018 11:20 AM PST) + + + + + + | Component | Value | Ref Range | Performed | Pathologist | | | | | At | Signature | + + + + + + | Protein/Cre | 428.6 (A) | 0 - 150 | EXTERNAL [...] | | | + +---------+ + + Urinalysis with Microscopic if Indicated (10/16/2018 11:20 AM PST) + + + + + + | Component | Value | Ref Range | Performed | Pathologist | | | | | At | Signature | + + + + + + | Color | Yellow | | EXTERNAL | | | | | | LAB | | + + + + + + | Clarity | Clear | | EXTERNAL | | | | | | LAB | | + + + + + + | Spec Grav, | 1.006 | 1.005 - 1.030 | EXTERNAL | | | Fluid | | | LAB | | + + + + + + | Leukocyte | Negative | | EXTERNAL | | | Esterase, | | | LAB | | | Urine | | | | | + + + + + + | Nitrite, | Negative | | EXTERNAL | | | Urine | | | LAB | | + + + + + + | Urobilinoge | Normal | | EXTERNAL | | | n, Urine | | | LAB | | + + + + + + | Total | Negative | | EXTERNAL | | | Protein | | | LAB | | + + + + + + | pH, Urine | 5 | 5 - 9 | EXTERNAL | | | | | | LAB | | + + + + + + | Blood, | Negative | | EXTERNAL | | | Urine | | | LAB | | + + + + + + | Ketones | Negative | | EXTERNAL | | | | | | LAB | | + + + + + + | Bilirubin, | Negative | | EXTERNAL | | | Urine | | | LAB | | + + + + + + | Glucose, | Negative | | EXTERNAL | | | Urine | | | LAB | | + + + + + + + + | Specimen | + + | Urine specimen | | (specimen) | + + + +---------+ + + | Performing | Address | City/State/Zipcode | Phone Number | | Organization | | | | + +---------+ + + | EXTERNAL LAB | | | | + +---------+ + + External Lab: CBC (10/16/2018 11:20 AM PST) + + + + + + | Component | Value | Ref Range | Performed | Pathologist | | | | | At | Signature | + + + + + + | WBC | 6.7 | 4.5 - 11.0 10 | EXTERNAL | | | | | | LAB | | + + + + + + | RED CELL | 3.63 (A) | 4.3 - 5.7 10 | EXTERNAL | | | COUNT | | | LAB | | + + + + + + | Hgb | 12.2 (A) | 13.5 - 18.0 | EXTERNAL | | | | | g/dL | LAB | | + + + + + + | Hematocrit, | 35.3 (A) | 41 - 50 % | EXTERNAL | | | POC | | | LAB | | + + + + + + | MCV | 97.4 | 81 - 99 fL | EXTERNAL | | | | | | LAB | | + + + + + + | MCH | 34 (A) | 27 - 33 pg | EXTERNAL | | | | | | LAB | | + + + + + + | MCHC | 35 | 30 - 36 g/dL | EXTERNAL | | | | | | LAB | | + + + + + + | Platelet | 300 | 140 - 440 K/ L | [...] | + +---------+ + + Uric Acid (10/16/2018 11:20 AM PST) + +---------+ + + + | Component | Value | Ref Range | Performed | Pathologist | | | | | At | Signature | + +---------+ + + + | Uric Acid | 8.2 (A) | 4.4 - 7.6 | EXTERNAL [...] | | | + +---------+ + + Parathyroid Hormone, Intact (10/16/2018 11:20 AM PST) + +-------+ + + + | Component | Value | Ref Range | Performed | Pathologist | | | | | At | Signature | + +-------+ + + + | PTH INTACT | 59.34 | 15 - 65 pg/mL | EXTERNAL | | | | | [...] | | + +---------+ + + Ferritin (10/16/2018 11:20 AM PST) + +-------+ + + + | Component | Value | Ref Range | Performed | Pathologist | | | | | At | Signature | + +-------+ + + + | Ferritin, | 46.75 | 30 - 400 ng/mL | EXTERNAL [...] + +---------+ + + Renal Function Panel (10/16/2018 11:20 AM PST) + + + + + + | Component | Value | Ref Range | Performed | Pathologist | | | | | At | Signature | + + + + + + | Glucose, | 103 (A) | 70 - 100 mg/dL | EXTERNAL | | | Fasting | | | LAB | | + + + + + + | BUN | 35 (A) | 6 - 23 mg/dL | EXTERNAL | | | | | | LAB | | + + + + + + | Creatinine | 2.07 (A) | 0.70 - 1.33 | EXTERNAL | | | | | mg/dL | LAB | | + + + + + + | PHOSPHORUS | 2.5 | 2.5 - 5.0 mg/dL | EXTERNAL [...] + + | K | 4.6 | 3.6 - 5.1 | EXTERNAL | | | | | mmol/L | LAB | | + + + + + + | Cl | 102 | 95 - 112 mmol/L | EXTERNAL | | | | | | LAB | | + + + + + + | CO2 | 24 | 19 - 31 mmol/L | EXTERNAL | | | | | | LAB | | + + + + + + | Anion Gap | 18.6 | 7 - 21 mmol/L | EXTERNAL | | | | | | LAB | | + + + + + + | eGFR if not | | | EXTERNAL | | | | | | LAB | | | [place] | | | | | + + + + + + | Phosphorus, | | | EXTERNAL | | | Inorganic | | | LAB | | + + + + + + | BUN/Creatin | 16.9 | 6.0 - 28.6 | EXTERNAL | | | ine Ratio | | | LAB | | + + + + + + | Calcium | 9.5 | 8.5 - 10.3 | EXTERNAL | | | | | mg/dL | LAB | | + + + + + + | Estimated | 33 (A) | 60 - 140 mg/dL | [...]
--- OUTSIDE RECORDS SUMMARY | ~2019-07-10 | XMS | Encounter Summary ---
Demographics + + + | Address | [address] | | | [place] [address] | + + + | Home Phone | | + + + | Preferred Language | Unknown | + + + | Marital Status | Single | + + + | Mosque Affiliation | 1077 | + + + | Race | Unknown | + + + | Ethnic Group | Unknown | + + + Author + + + | Author | [facility] | | | and [place] | + + + | Organization | [facility] | | | and [...] Team Providers + +------+ + | Care Advanced Registered Nurse Name | Role | Phone | + [...] + + + | Closed | | MRI | Diagnoses | [facility] | | | | | Chronic | Riccardo Mcgill MD | H[facility]PITAL | | | | | bilateral | [address] | | | | | low back | [address] | [address] | | | | | pain with | [place], | [place], [place] | | | | | bilateral | [place] [address] | [address] | | | | | sciatica | Phone: | Phone: | | | | | Bilateral | [phone] | [phone] | | | | | foot-drop | Fax: | Fax: | | | | | Numbness of | [phone] | [phone] | | | | | both lower | | | | | | | extremities | | | | | | | Procedures | | | | | | | MRI Lumbar | | | | | | | Spine wo | | | | | | | Contrast | | | +--------+--------+ + + + + Evaluate & Treat (Routine) +--------+ + + + + + | Status | Reason | Specialty | Diagnoses / | Referred By | Referred To | | | | | Procedures | Contact | Contact | +--------+ + + + + + | Closed | Specialty | Physical | Diagnoses | [place], | Riccardo Malhotra | | | Services | Medicine and | Chronic | Riccardo Mcgill MD | E A, MD [address] | | | Required | Rehabilitatio | bilateral | [address] | | | | n | low back | [address] | [place], | | | | | pain with | [place], | [place] [address] | | | | | bilateral | [place] [address] | Phone: | | | | | sciatica | Phone: | [phone] | | | | | Bilateral | [phone] | Fax: | | | | | foot-drop | Fax: | [phone] | | | | | Numbness of | [phone] | | | | | | both lower | | | | | | | extremities | | | | | | | Procedures | | | | | | | [place] MOTOR | | | | | | | &/SENS / | | | | | | | NRV CNDJ | | | | | | | PRECONF | | | | | | | [place] | | | | | | | [place] NEEDLE | | | | | | | EMG EA | | | | | | | EXTREMITY | | | | | | | W/PARASPINL | | | | | | | AREA LIMITED | | | | | | | [place] MOTOR | | | | | | | &/SENS - | | | | | | | NRV CNDJ | | | | | | | PRECONF | | | | | | | [place] | | | | | | | [place] OFFICE | | | | | | | OUTPATIENT | | | | | | | VISIT 25 | | | | | | | MINUTES DOS | | | | | | | 01/12/19 | | | +--------+ + + + + + Reason for Visit Evaluate & Treat (Routine) +--------+--------+ + + + + | Status | Reason | Specialty | Diagnoses / | Referred By | Referred To | | | | | Procedures | Contact | Contact | +--------+--------+ + + + + | Closed | | Physical | Diagnoses | [place], | Riccardo Malhotra | | | | Medicine and | Foot drop | Sarah Gallegos MD | Kathrin Mcgill MD [address] | | | | Rehabilitatio | | [address] | [address] | | | | n | | [address] | [place], | | | | | | [place], | [place] [address] | | | | | | [place] [address] | Phone: | | | | | | Phone: | [phone] | | | | | | [phone] | Fax: | | | | | | Fax: | [phone] | | | | | | [phone] | | +--------+--------+ + + + + Encounter Details +--------+---------+ + + + | Date | Type | Department | Care Team | Description | +--------+---------+ + + + | 12/15/ | Office | [facility] | Riccardo Malhotra, | Bilateral foot-drop | | 2019 | Visit | PHYSIATRY [address] | [address] | (Primary Dx); | | | | [place], | [place], [place] | Chronic bilateral | | | | [place] [address] | [address] | low back pain with | | | | [phone] | | bilateral sciatica; | | | | | | Meralgia | | | | | | paresthetica of left | | | | | | side; Numbness of | | | | | | both lower | | | | | | extremities | +--------+---------+ + + + Social History [...] + + + | Blood Pressure | 125/69 | 12/15/2018 1:12 PM | | | | | PDT | | + + + + + | Pulse | 73 | 12/15/2018 1:12 PM | | | | | PDT [...] + + + + | Weight | 160.1 kg (353 lb) | 12/15/2018 1:12 PM | | | | | PDT | | + + + + + | Height | 180.3 cm (5' 11") | 12/15/2018 1:12 PM | | | | | PDT | | + + + + + | Body Mass Index | 49.23 | 12/15/2018 1:12 PM | | | | | PDT [...] of this encounter Patient Instructions Patient Instructions Bianca Hernandez, Senior Director - 12/15/2018 1:00 PM PDTX-rays have been requested. Please go to the x-ray department after your appointment to complete these x-rays. The results of your x-rays will be reviewed at your next appointment. If you r x-rays demonstrate any emergent results, the clinic will contact you. A MRI has been requested. Please complete the requested imaging. Within one week, you adán uld receive a call to schedule your MRI. If you have not heard from anyone within one week, please call the clinic. The results of your MRI will be reviewed at your next appointment. If your MRI demonstrates any emergent results, the clinic will contact you. Please attend your scheduled nerve conduction study and EMG appointment. Nerve conduction studies and EMG require a great deal of time to complete. If you will be unable to make your appointment please contact the clinic at least one full business day gonzález or to your appointment . Missed appoints without cancellation will only be re scheduled once. Children under the age of 13 are not permitted in the room during the nerve study. If acco mpanied by children under the age of 13, they will need an adult to supervise them, while th ey wait in the lobby. Prior to your appointment wash the skin with soap and water. This is to remove any of the natural oils on the skin which may interfere with the completion of the study. Please do not wear any lotion prior to the study as lotion may also interfere with the comp letion of the study. When attending your study please bring appropriate attire. If you are having a study of th e upper extremities please bring a short sleeve shirt to wear during the study. If you are having a study of the lower extremities please bring shorts to wear during the study. At the time of your study, please remind the physician if you are taking any blood thinning medications such as Coumadin, or heparin. At the time of your study, please remind the physician if you have an implanted electronic device such as a pacemaker. documented in this encounter Progress Notes Riccardo Malhotra MD - 12/15/2018 1:00 PM PDTFormatting of this note might be different fro m the original. Physical Medicine & Rehabilitation Consult Referring Provider: Sarah Carroll MD Date of Service: 12/15/18 Patient ID: Aaron Latham is a 58 y.o. male with k. HPI Aaron Latham reports that she started having numbness and drop foot in the both lowe r extremities in February 2016. Aaron Latham reports drop foot following hospital stay in 2015. Aaron Latham indicates a flare in back pain on 12/13/18. He reports that he was seen in the ER. He denies back pain. His lower extremity numbness is constant. His lower extremity numbness is strongest over the bottoms of the feet. Aaron Latham also reports left lateral thigh numbness. His lower extremity numbness is exacerbated by: nothing. His lower extremity numbness is reduced by: nothing. His is unsure if numbness started in the toes and is ascending. Aaron Latham reports weakness. Aaron Latham reports that his foot catches on the door. Aaron Latham also reports bilateral hand numbness that started shortly after. Aaron Latham denies taking blood thinning medications such as Coumadin or heparin. He denies having implanted electronic device such as a pacemaker. He denies a history of diabetes. He reports a history of thyroid disease. He denies a history of rheumatoid arthritis. He denies a history of chemical exposure. He denies a history of frequent alcohol consumption. Aaron Latham reports that they have not had previous nerve conduction study of the l ower extremities. Aaron Latham reports that he had bilateral upper extremity nerve co nduction study possibly with . 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 [...] less than 130/80 Foot drop Gouty arthritis Heart failure with preserved ejection [...] B12 deficiency Vitamin D deficiency Past Surgical History Past Surgical History: Procedure Laterality Date ANGIOGRAM 01/2017 HEART CATH CARPAL TUNNEL RELEASE Right 02/2018 and ulna surgery rt elbow COLECTOMY N/A 08/16/2017 Procedure: RESECTION BOWEL LOW ANTERIOR, FLEXIBLE SIGMOIDOSCOPY; Surgeon: Mehul Bowles MD; Location: [facility] [place] MAIN OR COLONOSCOPY 05/22/2017 FINGER SURGERY Right 1974 AMPUTATION 5th finger TONSILLECTOMY 1969 TOTAL NEPHRECTOMY Left 06/11/2018 Procedure: LEFT LAPAROSCOPIC NEPHRECTOMY WITH NODE DISSECTION AND LAPAROSCOPIC LYSIS OF AD HESIONS; Surgeon: Patrice Cross MD; Location: [facility] [place] MAIN OR Unlisted Procedure Arthroscopy Family History: Family History Problem Relation Age of Onset Diabetes Mother Hypertension Mother Cancer Father Lung Social History: Social History Socioeconomic History Marital status: Single Spouse name: Not on file Number of children: Not on file Years of education: Not on file Highest education level: Not on file Tobacco Use Smoking status: Never Smoker Smokeless tobacco: Former User Types: Chew Substance and Sexual Activity Alcohol use: No Drug use: Never Sexual activity: Not Currently Allergies: No Known Allergies Medications: Outpatient Encounter Medications as of 12/15/2018 Medication Sig Dispense Refill acetaminophen (TYLENOL) 500 mg tablet Take 325 mg by mouth every 4 hours as needed for Pain. allopurinol (ZYLOPRIM) 100 mg tablet Take 100 mg by mouth Daily. atorvaSTATin (LIPITOR) 80 MG tablet Take 80 [...] FLUCONAZOLE DMSO 5% APPLY TO T OES oxyCODONE (ROXICODONE) 5 mg tablet Take 1-2 tablets by mouth every 6 hours as needed fo r Pain. (Patient not taking: Reported on 07/17/2018) 40 tablet 0 spironolactone (ALDACTONE) 50 mg tablet Take 100 mg by mouth Daily. tamsulosin (FLOMAX) 0.4 mg CAPS Take 1 capsule by mouth daily (after breakfast). 30 cap benjamin 1 torsemide (DEMADEX) 20 mg tablet Take 20 mg by mouth Daily. warfarin (COUMADIN) 5 mg tablet Take 5-10 mg by mouth Daily. No facility-administered encounter medications on file as of 12/15/2018. Review of Systems:ROS GENERALLY: No fever, no night sweats, no anemia, no fatigue, no recent profound weight ch anges. EYES: No eye problems, no use of corrective lenses, no eye injury, no double vision, no bl indness. EARS, NOSE, AND THROAT: No changes in taste or smell, no hearing difficulty, no ringing in the ears, no ear drainage, no dizziness, no voice changes, no difficulty swallowing, no sig nificant snoring, no sleep apnea, no sinus problems, no major dental work. NEUROLOGICALLY:The patient has no numbness/pain of arms, no numbness/pain of legs, no awake with numbness/pain, no weakness, no muscle aching, no coordination difficulty, no change in walk, no head injury, no neck injury, no back injury, no pain in neck, no pain in back, no stroke, no fainting spells, no loss of consciousness, no tremor/shaking, no seizures, no hea daches, no migraine, no memory loss, no speech difficulty, no confusion and no numbness of f moises. PSYCHIATRIC: No depression, no sleep disorders, no anxiety, no bipolar disorder, no psycho tic episodes. CARDIOVASCULAR: No heart attacks, no heart murmur, no heart fluttering, no chest pain, no ankle swelling. LUNG DISEASE: No shortness of breath, no cough, no tuberculosis, no bloody cough, no asth ma, no emphysema/COPD. GASTROINTESTINAL: No bowel disease, no nausea or vomiting, no rectal bleeding, no constipa tion, no stool incontinence, no liver disease, no gallbladder disease, no abdominal pain, no ulcers. KIDNEY DISEASE: No urinary frequency, no painful or difficult urination, no incontinence. ENDOCRINE: No diabetes, no thyroid disease, no osteopenia or osteoporosis, no breast drain age. SKIN: No breast lumps, no skin changes, no rashes, no itches. HEMATOLOGIC/LYMPHATIC: No enlarged lymph nodes, no easy or unusual bleeding, no personal h istory of cancer. RHEUMATOLOGIC: + joint arthritis, no rheumatoid arthritis. Vitals: 12/15/18 1312 BP: 125/69 Pulse: 73 PainSc: 3 PainLoc: Back Objective Physical Exam: General Appearance: Alert and Oriented to person, place, time and situation, no distress. HEENT: PERRL, conjunctiva clear, no scleral icterus, EOM's intact Heart: Regular Rate and Rhythm Lungs: No audible wheezing or crackles. Abdomen: Non-distended Back: Symmetric Extremities: No clubbing, cyanosis or edema in all four extremities Neurological: Cranial Nerves: Intact Speech: Normal Sensory: decreased sensation L4-5 bilaterally to monofilament touch. Motor: Normal 5/5 strength in both lower extremities with hip flexion, knee flexion, knee extensio n,and ankle plantar flexion 3 ankle dorsiflexion on the right 4 ankle dorsiflexion on the left 4- EHL on the right 4 EHL on the left Reflexes: 2+ normal and symmetric over the patella Absent achilles lower extremities bilaterally Coordination: Intact with finger to nose testing in both upper extremities. Intact with heal to lopez slide in both lower extremities Steppage gait Database: No new imaging is available for review. Assessment 1. Bilateral foot-drop 2. Chronic bilateral low back pain with bilateral sciatica 3. Meralgia paresthetica of left side 4. Numbness of both lower extremities Plan 1. The differential diagnosis for Aaron Latham's symptoms included, but are not marcelo ited to: peripheral neuropathy, peroneal neuropathy at the fibular head, and bilateral L4-5 radiculopathy. Aaron Latham's clinical presentation is most consistent with bilatera l L4-5 radiculopathy. 2. Today we reviewed that the nerve study will hopefully help us localize the origin of sy mptoms. Today we discussed how to prepare for nerve conduction study and EMG. We discussed not wearing lotion and bringing a short sleeve shirt to wear. We discussed the process of t he test, which involves small shocks to the nerves and that the study may include pin sticks , without shock into the muscles. Aaron Latham had previous nerve conduction study of the bilateral upper extremities. with . We will request nerve study from ns office 3. Aaron Latham was provided with a prescription for bilateral AFO. Aaron Galindo rts has bilateral foot drop. He has steppage gait. 4. Lumbar xray order was placed today to evaluate for underlying instability or spondylosis contributing to bilateral foot numbness and bilateral foot drop. In addition order for lumbar MRI was placed today to evaluate for lumbar spinal stenosis an d neural foraminal narrowing that may be contributing to bilateral foot drop. There is signi ficant bilateral lower extremity weakness. There is decreased sensation in the bilateral low er extremities. There is reflex changes bilaterally. Pending imaging review may consider or dung for neurosurgery versus completing scheduled nerve conduction study. 5. We discussed the diagnosis of left meralgia paresthetica. He was advised to wear loose fitting clothing to avoid pressure over the lateral femoral cutaneous nerve. We discussed k eeping an open angle between thigh and abdomen. We discussed avoiding clothes with elastic across the groin. We discussed make sure clothes are night tight and don't bunch across the waist line or groin. 6. Aaron Latham will return to the clinic for nerve conduction study and EMG to nanette ccaeres for the differential diagnosis above. In summary, Aaron Latham has significant bilateral foot drop. He does not have a hi story of anything that would put him at risk for peroneal neuropathy. His weakness is effec ting his function. It is suspected that his symptoms are most likely the result of bilatera l lumbar radiculopathy. Lumbar MRI is necessary to guide future treatment and has been requ ested. If significant changes seen on MRI we will request neurosurgical consultation (and w e can cancel NCS/EMG). If lumbar MRI is unremarkable he will return to the clinic for nerve conduction study to evaluate for peroneal neuropathy, peripheral neuropathy, etc. A prescr iption for custom bilateral ankle foot orthosis with dorsiflexion assist was provided today. His foot drop is causing steppage gait, effecting his function and putting him at risk for falls. He should continue PT. Prior upper extremity nerve study will be requested for rev iew and any prior evidence of peripheral neuropathy. Thank you for allowing me to be involved in the care of your patient. If you have any ques tions regarding the care of your patient please don't hesitate to call. Approximately 45 minutes was spent face to face with Aaron Latham, over half of whic h was spent formulating and discussing their medical treatment plan. I, Riccardo Malhotra MD personally performed the services described in this documentation, as scribed by in my presence, FRANSISOC Castro and are both accurate and complete. Riccardo Malhotra MD - 12/15/2018 Cc: Sarah Carroll MD documented in this en counter Plan of Treatment +--------+---------+ + + + | Date | Type | Specialty | Care Team | Description | +--------+---------+ + + + | 07/13/ | Office | Cardiology | Ileana Henson | | | 2019 | Visit | | [address] | | | | | [address] | | | | | | [place] [address] | | | | | | [phone] | | | | | | | | +--------+---------+ + + + | 12/02/ | Office | Cardiology | Lorraine Clifton DO | | | 2019 | Visit | | [address] | | | | | | [place] | | | | | | [address] | | | | | | | | +--------+---------+ + + + | 12/13/ | Office | Nephrology | Jewel Ulloa MD | | | 2019 | Visit | | [address] | | | | | | [address] [place] | | | | | | [address] | | | | | | | | +--------+---------+ + + + + +---------+--------+ + + | Name | Type | Priori | Associated Diagnoses | Order Schedule | | | | ty | | | + +---------+--------+ + + | MRI Lumbar Spine wo | Imaging | Routin | Chronic bilateral | Expected: | | Contrast | | e | low back pain with | 12/15/2018, Expires: | | | | | bilateral sciatica | 12/16/2019 | | | | | Bilateral foot-drop | | | | | | Numbness of both | | | | | | lower extremities | | + +---------+--------+ + + | XR Lumbar Spine 4 + | Imaging | Routin | Chronic bilateral | Expected: | | Vw | | e | low back pain with | 12/15/2018, Expires: | | | | | bilateral sciatica | 12/16/2019 | | | | | Bilateral foot-drop | | | | | | Numbness of both | | | | | | lower extremities | | + +---------+--------+ + + + + +--------+ + + | Name | Type | Priori | Associated Diagnoses | Order Schedule | | | | ty | | | + + +--------+ + + | * [facility] [place] | Outpatient | Routin | Chronic bilateral | Ordered: 12/15/2018 | | Physiatry - AMB | Referral | e | low back pain with | | | Referral | | | bilateral sciatica | | | | | | Bilateral foot-drop | | | | | | Numbness of both | | | | | | lower extremities | | + + +--------+ + + documented as of this encounter Visit Diagnoses + + | Diagnosis | + + | Bilateral foot-drop - Primary Other acquired deformity of ankle and foot | + + | Chronic bilateral low back pain with bilateral sciatica | + + | Meralgia paresthetica of left side Meralgia paresthetica | + + | Numbness of both lower extremities | + + documented in this encounter
--- OUTSIDE RECORDS SUMMARY | ~2019-07-10 | XMS | Encounter Summary ---
Demographics + + + | Address | [address] | | | [place] [address] | + + + | Home Phone | | + + + | Preferred Language | Unknown | + + + | Marital Status | Single | + + + | Orthodox Affiliation | LDS | + + + | Race | White | + + + | Ethnic Group | Not or | + + + Author + + + | Author | [facility] | + + + | Organization | [facility] | + + + | Address | Unknown | + + + | Phone | Unavailable | + + + Support + + + + + | Name | Relationship | Address | Phone | + + + + + | Toby Latham | ANNA | [address] | | | | | [place] | | | | | [address] | | + + + + + Care Team Providers + +------+ + | Care Staple Laster Name | Role | Phone | + +------+ + PCP | Unavailable | + +------+ + Encounter Details +--------+ + + + + | Date | Type | Department | Care Team | Description | +--------+ + + + + | 05/23/ | Emergency | [facility] Emergency | | | | 2016 | | Department [id number] | | | | | | [address] | | | | | | [facility] | | | | | | [place], [place] | | | | | | [address] | | | | | | [phone] | | | +--------+ + + + [...] [address] | | | | | | [place], [place] | | | | | | [address] | | | | | | [phone] | | | | | | | | +--------+---------+ + + + documented as of this encounter Visit Diagnoses Not on filedocumented in this encounter"
--- OUTSIDE RECORDS SUMMARY | ~2019-07-10 | XMS | Encounter Summary ---
Demographics + + + | Address | [address] | | | [place] [address] | + + + | Home Phone | | + + + | Preferred Language | Unknown | + + + | Marital Status | Single | + + + | Faith Affiliation | 1077 | + + + | Race | Unknown | + + + | Ethnic Group | Unknown | + + + Author + + + | Author | [facility] | | | and [place] | + + + | Organization | [facility] | | | [...] Team Providers + +------+ + | Care Network Operations Project Manager Name | Role | Phone | [...] PHYSIATRY [address] | MD [address] | | | | | [place], | [place], [place] | | | | | [place] [address] | [address] | | | | | [phone] | | | +--------+ + + + [...] [address] | | | | | | [place] [address] | | | | | | [phone] | | | | | | | | +--------+---------+ + + + | 04/23/ | Office | Cardiology | Lorraine Clifton DO | | | 2019 | Visit | | [address] | | | | | | [place] | | | | | | [address] | | | | | | | | +--------+---------+ + + + | 12/13/ | Office | Nephrology | Jewel Ulloa MD | | | 2019 | Visit | | [address] | | | | | | [address] [place] | | | | | | [address] | | | | | | | | +--------+---------+ + + + documented as of this encounter Visit Diagnoses Not on filedocumented in this encounter"
--- OUTSIDE RECORDS SUMMARY | ~2019-07-10 | XMS | Encounter Summary ---
Demographics + + + | Address | [address] | | | [place] [address] | + + + | Home Phone | | + + + | Preferred Language | Unknown | + + + | Marital Status | Single | + + + | Moravian Affiliation | 1077 | + + + | Race | Unknown | + + + | Ethnic Group | Unknown | + + + Author + + + | Author | [facility] | | | and [place] | + + + | Organization | [facility] | | | [...] Team Providers + +------+ + | Care Vegetable Scullion Name | Role | Phone | + [...] | | | | | | | [phone] | | | | | | | Fax: | | | | | | | [phone] | | +--------+ + + + + [...] | | | neoplasm of | | [phone] | | | | | sigmoid | | Fax: | | | | | colon (HCC) | | [phone] | | | | | [C18.7] | | | | | | | Procedures | | | | | | | CO PART | | | | | | [...] + + | 08/16/ | Hospital | [facility] | Mehul Kinsey, | Surgery follow-up | | 2018 - | Encounter | [facility] | [address] | (Primary Dx) | | | | SURGICAL [address] | [place] | | | 08/23/ | | [place] | [phone] | | | 2018 | | [address] | | | | | | [phone] | | | +--------+ + + + [...] Electronically signed by: Oumou Kinsey, 08/22/2017 6:48 [facility] documented in this encounter Discharge Instructions Instructions Gretel Peña RN - 08/23/2017 [facility] Patient Belongings Aaron Latham 1960 Valuables Dentures: None Vision - Corrective Lenses: None Hearing Aid: None Jewelry: None Clothing: Pants, Shirt, Footwear ( Duffel/CPAP/CANE/Hospital provided bag with clothing sen t to PACU pt. storage bins) Other Valuables: CPAP/BiPAP, Secured on Unit Other Valuables: None Home Medications: None Patient Signature: Clinician/Boom Supervisor Signature: Incision Care: Abdomen Dressing your incision [...] by your healthcare provider Date Last Reviewed: 07/12/201619999112-2495 [employer]. [address] [place] [address], [place] [address]. All righ ts reserved. This information is [...] You may c ough up blood. 2015 [employer] Inc[employer] All illustrations and images included in CareNotes a re the copyrighted property of [employer] or [employer] documented in this encounter Medications at Time [...] 131/64 124/67 Pulse: 83 62 69 Resp: Temp: 37.1 C (98.7 F) 36.7 C (98.1 F) 36.8 C (98.3 F) TempSrc: Temporal Temporal Temporal SpO2: 94% 93% Weight: (!) 156.9 kg (345 lb 14.4 oz) Height: I's&O's: Date 08/22/17 0701 - 08/23/17 0700 08/23/17 07 - 08/24/17 0700 Shift 1236-9208 5925-6072 24 Hour Total 2274-5710 4130-8296 24 Hour Total I N T A [...] 9.0 Radiology data: No results found. uzena sullivan PaddyLIZY Avery - 08/22/2017 4:26 PM PSTSocial Work: [facility] and [facility] do not service the area in [place] where patient lives. Called [facility] in [place]. Made referral. They will verify insurance and call back hopefully in am. Spoke with pt and his mother Toby. Transport difficulties for discharge today, but their fr iend should be at [facility] at 1000 08/23. 18 4:26 PM [...] with her in her mobile home in [place], [place]. She is agreeable to home health and after review of choice s, chose [facility]. Referral made to [facility] by voicemail and fa x. Will await response from them on whether they can follow; would need to call them when pt d/c's but otherwise they can follow in [facility]. Pt will have a friend pick [...] Known Allergies Vital Signs: Vitals: 08/20/17 1722 08/20/17200508/20/17201808/21/17 0018 BP: 134/69 125/68 140/75 Pulse: 75 [...] 8.5 9.0 Radiology data: No results found. [facility] wood MD - 08/20/2017 6:52 AM [...] Height: I's&O's: Date 08/19/17 0701 - 08/20/17 0700 08/20/17 0701 - 08/21/17 0700 Shift 1696-1127 0301-3384 24 Hour Total 1288-0047 8539-1153 24 Hour Total I N T A [...] data: No results found. Eda Marrero V, [employer] - 08/20/2017 4:20 AM PSTPt refused to [...] 0700 08/19/17 07 - 08/20/17 0700 Shift 1354-8041 2519-8696 24 Hour Total 4376-6082 2809-0146 24 Hour Total I N T A [...] (mL/kg) 1400 (8.9) 2675 (17) 4075 (26) [facility] -[phone] Weight (kg) 156.9 156.9 156.9 156.9 156.9 [...] - 08/18/17 0708/18/17700 - 08/19/17 07 Shift 1353-1766 0426-3214 24 Hour Total 6585-4343 8319-0092 24 Hour Total I N T A [...] - 08/17/17 0708/17/17700 - 08/18/17 07 Shift 0171-8974 24 Hour Total 2663-3277 5476-2697 24 Hour Total I N T A [...] U T P U T Urine (mL/kg/hr) 200 273 9260 (0.7) 1300 Blood 150 Shift Total (mL/kg) [...] [address] | | | | | | [place] [address] | | | | | | [phone] | | | | | | | | +--------+---------+ + + + | 12/02/ | Office | Cardiology | Lorraine Clifton DO | | | 2019 | Visit | | [address] | | | | | | [place], [place] | | | | | | [address] | | | | | | | | +--------+---------+ + + + | 12/13/ | Office | Nephrology | Jewel Ulloa MD | | | 2020 | Visit | | [address] [facility] | | | | | | [facility] [place], [place] | | | | | | [address] | | | | | | | [...] + | [facility] | [address] | [place] [address] | | | [facility] | [...] + + | [facility] | [address] | [place] [address] | | | [facility] | | | | | LABORATORY [...] + + | Glucose | 149 (H)Comment: Taiwanese | 65 - 99 mg/dL | [facility] [...] + + | [facility] | [address] | [place] [address] | | | [facility] | | | | | LABORATORY | | | | + + + + + Surgical Pathology Exam (08/16/2017 12:53 PM PST) + + | Specimen | + + | | + + + + + | Narrative | Performed At | + + + | SURGICAL PATHOLOGY REPORT | [facility] | | Date Taken: 08/16/2017 Date Received: 08/16/2017 | [facility] | | Completed: 08/20/2017 Physician: Mehul KINSEY Copy to: [facility] | | DIAGNOSIS: Colon, sigmoid, segmental [...] cm to 0.5 cm in greatest dimension. [facility] | | | sections are submitted as [...] the pathologic diagnosis. A: | | | 56943, 11063, 96295, 58393, 48445(e) | | | PROCEDURES/ADDENDA SPECIAL STAINS DIAGNOSIS: [...] developed and their performance characteristics determined by [facility] | | | [facility]. This test is used for clinical | | | purposes. It should not be regarded as investigational or for | | | research. [facility] is certified under the Clinical | | | Laboratory Improvement Amendments of 1988 (CLIA) as qualified to | | | perform high complexity clinical laboratory testing. Comment: | | | Breast predictive markers have not been validated on decalcified | | | specimens. Bladimir Staley MD Testing performed | | | at: [facility] | | | Michelle Arredondo, Director [address] [place] [address] Av [address] [place], [place] | | | [address] | | + + + + + + + + | Performing | Address | City/State/[facility]ode | Phone Number | | Organization | | | | + + + + + | [facility] | [address] | [place] [address] | | | [facility] | | | | | LABORATORY [...] + + | Glucose | 113 (H)Comment: Taiwanese | 65 - 99 mg/dL | [facility] | | | | Diabetes Association | [...] + + | [facility] | [address] | [place] [address] | | | [facility] | [...] + + | [facility] | [address] | [place] [address] | | | [facility] | | | | | LABORATORY [...] + | [facility] | [address] | [place] [address] | | | [facility] | | | | | LABORATORY [...] + + | [facility] | [address] | [place] [address] | | | [facility] | | | | | LABORATORY [...] | | | | | Indigestion, Starting Sat08/16/17 | | | | | [...] | capsule 100 mg 100 mg, Oral, | | 18 9:06 | | | | | TIMES DAILY, First dose on Sat | | PM PST | | | [...] | | | | | dose on Sat08/19/17 at 0900, | | | | | [...] 300 mg, Oral, ONCE, Sat | | 10:53 | | | | | 08/16/17 [...] | t Upper | | Units, Subcutaneous, ADDICTION SOCIAL WORKER, | | AM PST | | | | | Starting 08/16/17 at 0831, For | | | | [...] | | | | (DILAUDID) 1 mg/mL CHEESE SUPERVISOR | | 18 8:26 | | | | | Intravenous, CONTINUOUS, Starting | | AM PST | | | | | 08/16/17 at 1530, for adult | | | | | | | patients 65 years and older OR | | | | | | | risk of sleep apnea, Loading | | | | | | | Dose(mg): 0, Starting CHEESE SUPERVISOR | | | | | | | Dose(mg): 0.1, Incremental | | | | | | | Increase CHEESE SUPERVISOR Dose(mg): 0.1, | | | | | | | Maximum CHEESE SUPERVISOR Dose(mg): 0.2, | | | | [...] | times per day), First dose on Mon | | | | | | [...] policy and contact | | | provider combination welder apprentice, | | + +---+ | | | [...] HOURS PRN, Pain, Starting | | | Sat08/16/17 at 1843 | | + +---+ [...]
--- OUTSIDE RECORDS SUMMARY | ~2019-07-10 | XMS | Encounter Summary ---
Demographics + + + | Address | [address] | | | [place] [address] | + + + | Home Phone [...] Team Providers + +------+ + | Care Bridge Worker Apprentice Name | Role | Phone | + +------+ + | Sraah Carroll MD | PCP | | + +------+ + Reason for Visit Evaluate & Treat (Urgent) +--------+--------+ + + + + | Status | Reason | Specialty | Diagnoses / | Referred By | Referred To | | | | | Procedures | Contact | Contact | +--------+--------+ + + + + | Closed | | | Diagnoses | Diane Malhotra | | | | | | Riccardo Mcgill MD | Rheumatology | | | | | Polyneuropat | [address] | | | | | hy, | [address] | [address] | | | | | unspecified | [place], | [place] | | | | | Elevated | [place] [address] | [address] | | | | | C-reactive | Phone: | Phone: | | | | | protein | [phone] | [phone] | | | | | (CRP) Other | Fax: | Fax: | | | | | specified | [phone] | [phone] | | | | | abnormal | | | | | | | findings of | | | | | | | blood | | | | | | | chemistry | | | +--------+--------+ + + + + Encounter Details +--------+---------+ + + + | Date | Type | Department | Care Team | Description | +--------+---------+ + + + | 06/10/ | Office | [facility] | Mindy Nielsen | Positive NICKIE | | 2019 | Visit | RHEUMATOLOGY [address] | [place] [address] | (antinuclear | | | | [address] | [address] | antibody) (Primary | | | | [place] | [place] [address] | Dx) | | | | [address] | [phone] | | | | | [phone] | | | +--------+---------+ + + + [...] + + + | Blood Pressure | 153/68 | 06/10/2019 9:56 AM | | | | | PDT | | + + + + + | Pulse | 68 | 06/10/2019 9:56 AM | | | | | PDT | | + + + + + | Temperature | 36.6 C (97.8 F) | 06/10/2019 9:56 AM | | | | | PDT [...] Weight | 169.6 kg (374 lb) | 06/10/2019 9:56 AM | | | | | PDT | | + + + + + | Height | 180.3 cm (5' 11") | 06/10/2019 9:56 AM | | | | | PDT | | + + + + + | Body Mass Index | 52.16 | 06/10/2019 9:56 AM | | | | | PDT [...] of this encounter Patient Instructions Patient Instructions Carmen Bailey Sports Administrator - 06/10/2019 10:20 AM PDTWe hope t hat you have experienced exceptional care today and that you found our service to be courteo us and helpful. If you have any questions or need medication refills you can send us a message/request u PingSome or call our office at [phone]. To reach Carmen CARROLL-C type extension [phone] To reach Paddy NH-C type extension [phone] If you are unable to reach a nurse during clinic hours, please leave a detailed message. We check our messages often and return calls in a timely manner during clinic hours. Orders for labs or imaging: Please remember that Mindy will only call you if somethi ng of concern needs to be addressed, otherwise all result will be discussed at your next off ice visit. You can also look at your results on [facility]. If you are experiencing an emergency, please call 911 documented in this encounter Progress Notes Mindy Nielsen PA-C - 06/10/2019 10:20 AM PDTFormatting of this note might be diff erent from the original. Subjective: Patient ID: Aaron Latham is a 59 y.o. male. Rheumatological History Initially seen by Dr. Gray on 05/04/2019 "Pt reports he was having issues with neuropathy for the past 2-3 years with numbness in f eet and hands. He was Dx with gout a few years ago, and is taking allopurinol. When he has a gout flare , has joint pains with joint popping in knees. Takes tylenol for pain control . He has multiple complex comorbidities including CKD, Hx of colon ca s/p resection, Hx of re nal mass, SUZI on CPAP, hypothyroid, CHF, A.fib, anemia. Had been admitted ~ 2 years ago for edema, was in the ICU for 2 weeks and developed b/l foot drop. Was doing P.T which has help ed. Has been seeing Dr. Malhotra neurologist in [place] which did a nerve conduction study which was abnormal. Also has MRI spine done. Denies any sicca sx. No skin rashes. He doesdescribe numbness of the leftlower extremit y.Hedoesreport weakness of the left lower extremity. Hedoes nothave bowel and bladder dysfunction. Hedoes nothave saddle anesthesia. Pt reports that when weather is cold his fingertips will change color to white. No family history of lupus or RA. " Serology: Elevated acute phase reactants and Negative NICKIE Pertinent Imaging:none Tried and failed oral DMARDs include: N/A Tried and failed biologic DMARDs include: N/A Past medical history does include: CKD, Hx of colon ca s/p resection, Hx of renal mass, SUZI on CPAP, hypothyroid, CHF, A.fib, anemia Nina MOODY am personally taking down the notes in the presence of Mindy Nielsen PA-C. History of Present Illness Here for:+NICKIE Here for: Follow up Last seen: 05/04/19 by Arturo Gray MD Any changes in overall health since last visit: No Current rheumatological medications: No Current rheumatological complaint: Patient complains of pain in his left hip. SOB due to ex ertion. Denies, fatigue, fever, rashes, joint pain and swelling. Location: Hips Morning stiffness lasting no morning stiffness Quality: ache Severity: mild Duration: chronic Timing:intermittent Aggravated by:activity Relieved by:rest Denies: infection, fever and abdominal pain Patient's medications, allergies, past medical, surgical, social and family histories were obtained and reviewed as appropriate. Review of Systems Constitutional: Negative for fever. HENT: Negative for mouth sores and sore throat. Eyes: Negative for pain, discharge and redness. Respiratory: Positive for shortness of breath. Negative for wheezing. Cardiovascular: Negative for chest pain. Gastrointestinal: Negative for abdominal pain, constipation, diarrhea, nausea and vomiting. Genitourinary: Negative for dysuria. Musculoskeletal: Negative for arthralgias and joint swelling. Skin: Negative for rash and wound. Neurological: Negative for dizziness and headaches. Mindy Wood PA-C, reviewed the above ROS. Objective: BP 153/68 | Pulse 68 | Temp 36.6 C (97.8 F) | Ht 1.803 m (5' 11") | Wt (!) 169.6 kg (374 lb) | BMI 52.16 kg/m Physical Exam Constitutional: He appears well-developed and well-nourished. HENT: Nose: No nasal deformity. Mouth/Throat: Uvula is midline and mucous membranes are normal. No oropharyngeal exudate. Eyes: Conjunctivae and EOM are normal. No scleral icterus. Cardiovascular: Normal rate and regular rhythm. Pulmonary/Chest: Effort normal and breath sounds normal. Musculoskeletal: Sternoclavicular- Negative Palms- negative MCPs- negative PIPs- cecily nodes CMC- negative DIPS- [place] nodes Wrists- negative Fists- Able to make complete fists Elbows-tophi left olecranon bursa Shoulders-negative Knees- negative Ankles- negative Feet/MTPs- negative Lymphadenopathy: He has no cervical adenopathy. Neurological: He is alert. Skin: Skin is warm and dry. No rash noted. Lab Data: Lab Results Component Value Date WBC 10.31 05/04/2019 HGB 13.0 (L) 05/04/2019 HCT 38.9 (L) 05/04/2019 MCV 103.1 (H) 05/04/2019 LABPLAT 313 02/04/2019 PLT 292 05/04/2019 Lab Results Component Value Date GLUF 128 (A) 02/04/2019 GLUF 95 01/19/2019 NA 140 05/04/2019 K 4.9 05/04/2019 CL 104 05/04/2019 CALCIUM 8.9 05/04/2019 CO2 27 05/04/2019 ALT 23 05/04/2019 AST 16 05/04/2019 EGFR 27 (L) 05/04/2019 Lab Results Component Value Date CRP 1.4 (H) 05/04/2019 No components found for: SEDRATE Imaging: Laboratory results were reviewed in [facility] as well as chart notes and imaging from other prov ider(s) since their last rheumatology clinic visit, Please see the EMR for further detail. Assessment and Plan: Visit Diagnoses and Associated Orders: Problem List Items Addressed This Visit Other Positive NICKIE (antinuclear antibody) - Primary Repeat NICKIE negative. Clinical suspicion for SLE is low. Likely an incidental finding. Discussed with the patient the significance of [...] an d a false positive test result. She was advised to call us if she were to develop any new symptoms that would make her conc erned Patient will return as needed. Risks and benefits of a treatment plan were explained to patient. Patient will follow up with their primary care physician in regards to non-rheumatological symptoms listed under review of systems. Patient was advised to contact our office if there are any change in their symptoms. This is a patient with multiple medical problems that require considerable time and reflect ion in order to properly evaluate and manage. Avoidance of adverse drug interactions and opt imization of treatment/therapy is the primary goal. Complex analysis and decision making was involved in today's visit. I,Mindy Nielsen PA-C, personally performed the services described in this documentation, with the scribe in my presence, and it is both accurate and complete. Dictation software Dragon/dictation services used, which may contain error for similar soun ding words even after review. Please do not hesitate to contact me for any clarification. Procedures: Procedures do cumented in this encounter Plan of Treatment +--------+---------+ + + + | Date | Type | Specialty | Care Team | Description | +--------+---------+ + + + | 07/13/ | Office | Cardiology | Ileana Henson | | | 2018 | Visit | | [address] | | | | | | [address] | | | | | | [place] [address] | | | | | | [phone] | | | | | | | | +--------+---------+ + + + | 12/02/ | Office | Cardiology | Lorraine Clifton DO | | | 2019 | Visit | | [address] | | | | | | [place] | | | | | | [address] | | | | | | | | +--------+---------+ + + + | 12/13/ | Office | Nephrology | Jewel Ulloa MD | | | 2019 | Visit | | [address] [facility] | | | | | | [address] [place] | | | | | | [address] | | | | | | | | +--------+---------+ + + + documented as of this encounter Visit Diagnoses + + | Diagnosis | + + | Positive NICKIE (antinuclear antibody) - Primary Other and unspecified nonspecific | | immunological findings | + + documented in this encounter
--- OUTSIDE RECORDS SUMMARY | ~2019-07-10 | XMS | Encounter Summary ---
Demographics + + + | Address | [address] | | | [place] [address] | + + + | Home Phone | | + + + | Preferred Language | Unknown | + + + | Marital Status | Single | + + + | Lutheran Affiliation | 1077 | + + + | Race | Unknown | + + + | Ethnic Group | Unknown | + + + Author + + + | Author | [facility] | | | and [place] | + + + | Organization | [facility] | | | [...] Team Providers + +------+ + | Care Agents' Records Clerk Name | Role | Phone | + +------+ + | Sarah Carroll MD | PCP | | + +------+ + Encounter Details +--------+ + + + + | Date | Type | Department | Care Team | Description | +--------+ + + + + | 03/05/ | Orders Only | [facility] | Provider, | Mixed | | 2019 | | [facility] | MD [address] | hyperlipidemia; | | | | CONVERSION [address] | [address] | Essential (primary) | | | | [address] [place], [place] | [place] [address] | hypertension; | | | | [address] | | Chronic kidney | | | | [phone] | | disease, stage III | | | | | | (moderate) (HCC); | | | | | | Neoplasm of kidney; | | | | | | Persistent | | | | | | proteinuria | +--------+ + + + + Social [...] [address] | | | | | | [place] [address] | | | | | | [phone] | | | | | | | | +--------+---------+ + + + | 12/02/ | Office | Cardiology | Lorraine Clifton DO | | | 2019 | Visit | | [address] | | | | | | [place] | | | | | | [address] | | | | | | | | +--------+---------+ + + + | 12/13/ | Office | Nephrology | Jewel Ulloa MD | | | 2019 | Visit | | [address] | | | | | | [address] [place] | | | | | | [address] | | | | | | | | +--------+---------+ + + + + +------+--------+ + + | Name | Type | Priori | Associated Diagnoses | Order Schedule | | | | ty | | | + +------+--------+ + + | Renal Function Panel | Lab | Routin | Essential | 1 Occurrences | | | | e | (primary) | starting 03/27/2019 | | | | | hypertension | until 10/28/2019 | | | | | Chronic kidney | | | | | | disease, stage III | | | | | | (moderate) ([facility]) | | | | | | Neoplasm of kidney | | | | | | Persistent | | | | | | proteinuria | | + +------+--------+ + + | Lipid Panel | Lab | Routin | Mixed | Expected: | | | | e | hyperlipidemia | 10/30/2018, Expires: | | | | | | 10/31/2019 | + +------+--------+ + + | CBC with | Lab | Routin | Essential | Expected: | | Differential | | e | (primary) | 01/06/2019, Expires: | | | | | hypertension | 01/07/2020 | | | | | Chronic kidney | | | | | | disease, stage III | | | | | | (moderate) ([facility]) | | | | | | Chronic kidney | | | | | | disease, stage III | | | | | | (moderate) ([facility]) | | + +------+--------+ + + | CBC with | Lab | Routin | Chronic kidney | Expected: | | Differential | | e | disease, stage III | 02/23/2019, Expires: | | | | | (moderate) ([facility]) | 02/10/2020 | | | | | Essential (primary) | | | | | | hypertension | | | | | | Persistent | | | | | | proteinuria | | + +------+--------+ + + | Renal Function Panel | Lab | Routin | Chronic kidney | Expected: | | | | e | disease, stage III | 02/23/2019, Expires: | | | | | (moderate) ([facility]) | 02/10/2020 | | | | | Essential (primary) | | | | | | hypertension | | | | | | Persistent | | | | | | proteinuria | | + +------+--------+ + + | Renal Function Panel | Lab | Routin | Chronic kidney | Expected: | | | | e | disease, stage III | 06/12/2019, Expires: | | | | | (moderate) ([facility]) | 02/10/2020 | | | | | Essential (primary) | | | | | | hypertension | | | | | | Persistent | | | | | | proteinuria | | + +------+--------+ + + | CBC with | Lab | Routin | Chronic kidney | Expected: | | Differential | | e | disease, stage III | 06/12/2019, Expires: | | | | | (moderate) ([facility]) | 02/10/2020 | | | | | Essential (primary) | | | | | | hypertension | | | | | | Persistent | | | | | | proteinuria | | + +------+--------+ + + | Uric Acid | Lab | Routin | Chronic kidney | Expected: | | | | e | disease, stage III | 06/12/2019, Expires: | | | | | (moderate) ([facility]) | 02/10/2020 | | | | | Essential (primary) | | | | | | hypertension | | | | | | Persistent | | | | | | proteinuria | | + +------+--------+ + + | Protein/Creatinine | Lab | Routin | Chronic kidney | Expected: | | Ratio, Urine | | e | disease, stage III | 06/12/2019, Expires: | | | | | (moderate) ([facility]) | 02/10/2020 | | | | | Essential (primary) | | | | | | hypertension | | | | | | Persistent | | | | | | proteinuria | | + +------+--------+ + + documented as of this encounter Visit Diagnoses + + | Diagnosis | + + | Mixed hyperlipidemia | + + | Essential (primary) hypertension Unspecified essential hypertension | + + | Chronic kidney disease, stage III (moderate) (HCC) Chronic kidney disease, Stage III | | (moderate) | + + | 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
--- OUTSIDE RECORDS SUMMARY | ~2019-07-10 | XMS | Encounter Summary ---
Demographics + + + | Address | [address] | | | [place] [address] | + + + | Home Phone | | + + + | Preferred Language | Unknown | + + + | Marital Status | Single | + + + | Samaritan Affiliation | LDS | + + + [...] [place] | | | | | [address] | | + + + + + Care Team Providers + +------+ + | Care Organ Builder Name | Role | Phone | + +------+ + | Sarah Carroll MD | PCP | | + +------+ + Encounter Details +--------+--------+ + + + | Date | Type | Department | Care Team | Description | +--------+--------+ + + + | 07/01/ | Travel | | | | | [...] Rd | | | | | | [place], [place] | | | | | | [address] | | | | | | [phone] | | | | | | | | +--------+---------+ + + + documented as of this encounter Visit Diagnoses Not on filedocumented in this encounter"
--- OUTSIDE RECORDS SUMMARY | ~2019-07-10 | XMS | Encounter Summary ---
Demographics + + + | Address | [address] | | | [place] [address] | + + + | Home Phone | | + + + | Preferred Language | Unknown | + + + | Marital Status | Single | + + + | Jainism Affiliation | LDS | + + + | Race | White | + + + | Ethnic Group | Not or | + + + Author + + + | Author | [facility] | + + + | Organization | [facility] | + + + | Address | Unknown | + + + | Phone | Unavailable | + + + Support + + + + + | Name | Relationship | Address | Phone | + + + + + | Toby Latham | ANNA | [address] | | | | | [place] | | | | | [address] | | + + + + + Care Team Providers + +------+ + | Care Atomic Physics Professor Name | Role | Phone | [...] 07/06/ | Telephone | [facility] | [place], | Follow-up Plan | | 2019 | | [place] [address] | MD [address] | (colonscopy f/u) | | | | [place] Mailcode: | [place] [address] | | | | | [address] for | [place], [place] | | | | | Health and Healing, | [address] | | | | | [facility] | [phone] | | | | | [place], [place] | | | | | | [address] | | | | | | [phone] | | | +--------+ + + + [...] Rd | | | | | | [place], [place] | | | | | | [address] | | | | | | [phone] | | | | | | | | +--------+---------+ + + + documented as of this encounter Visit Diagnoses Not on filedocumented in this encounter"
--- OUTSIDE RECORDS SUMMARY | ~2019-07-10 | XMS | Encounter Summary ---
Demographics + + + | Address | [address] | | | [place] [address] | + + + | Home Phone [...] + + + | Author | [facility] | | | and [place] | + + + | Organization | [facility] | | | [...] Team Providers + +------+ + | Care Gambreler Name | Role | Phone | + +------+ + | Sarah Carroll MD | PCP | | + +------+ + Reason for Visit +--------+ + | Reason | Comments | +--------+ + | Other | Appointment reminder call | +--------+ + Encounter Details +--------+ + + + + | Date | Type | Department | Care Team | Description | +--------+ + + + + | 06/09/ | Telephone | [facility] | Callum, | Alvaro (Appointment | | 2018 | | NEPHROLOGY [place] | Gabo Jay | reminder call) | | | | [address] [place] | Rn Heart | | | | | [address] [place], [place] | | | | | | [address] | | | | | | [phone] | | | +--------+ + + + [...] | | | | | [place] [address] | | | | | | [phone] | | | | | | | | +--------+---------+ + + + | 12/02/ | Office | Cardiology | Lorraine Clifton DO | | | 2019 | Visit | | [address] | | | | | | [place] | | | | | | [address] | | | | | | | | +--------+---------+ + + + | 12/13/ | Office | Nephrology | Jewel Ulloa MD | | | 2019 | Visit | | [address] [place] | | | | | | [address] [place] | | | | | | [address] | | | | | | | | +--------+---------+ + + + documented as of this encounter Visit Diagnoses Not on filedocumented in this encounter"
--- OUTSIDE RECORDS SUMMARY | ~2019-07-10 | XMS | Encounter Summary ---
Demographics + + + | Address | [address] | | | [place] [address] | + + + | Home Phone | | + + + | Preferred Language | Unknown | + + + | Marital Status | Single | + + + | Hinduism Affiliation | 1077 | + + + | Race | Unknown | + + + | Ethnic Group | Unknown | + + + Author + + + | Author | [facility] | | | and [place] | + + + | Organization | [facility] | | | [...] Team Providers + +------+ + | Care Chucking Lathe Operator Name | Role | Phone | + +------+ + | Sarah Carroll MD | PCP | | + +------+ + Encounter Details +--------+ + + + + | Date | Type | Department | Care Team | Description | +--------+ + + + + | 02/15/ | Orders Only | [facility] | John Pena | | | 2016 | | [address] | MD [address] | | | | | [place] [place] | [address] | | | | | [place], [place] | [place] [address] | | | | | [address] | [phone] | | | | | [phone] | | | +--------+ + + + [...] | | | | | | [place] [address] | | | | | | [phone] | | | | | | | | +--------+---------+ + + + | 12/02/ | Office | Cardiology | Lorraine Clifton DO | | | 2019 | Visit | | [address] | | | | | | [place] | | | | | | [address] | | | | | | | | +--------+---------+ + + + | 12/13/ | Office | Nephrology | Jewel Ulloa MD | | | 2019 | Visit | | [address] [facility] | | | | | | [address] [place] | | | | | | [address] | | | | | | | | +--------+---------+ + + + documented as of this encounter Procedures + +--------+ + + + | Procedure Name | Priori | Date/Time | Associated Diagnosis | Comments | | | ty | | | | + +--------+ + + + | ECHO INTERPRETATION | Routin | 02/16/2016 | | Results for this | | OF OUTSIDE FILMS | e | 2:11 PM | | procedure are in the | | | | PDT | | results section. | + +--------+ + + + documented in this encounter Results ECHO Interpretation of Outside Films (02/16/2016 2:11 PM PDT) + + | Specimen | + + | | + + + + + | Impressions | Performed At | + + + | 1. See Dictation. A fib. 2. Moderate concentric LVH, mild global | | | hypokinesis, diastolic function abnormal, [place] visually estimates | | | LVEF 40-45%. Moderate LAE, moderate CYNTHIA. RV not seen well, but | | | suspect RVE. 3. Aortic valve mildly sclerotic, no /AI. Mitral | | | valve grossly NML, mild MAC, mild MR. Tricuspid and Pulmonic valves | | | grossly NML, trace TR, trace PI. 4. No Pericardial effusion. 5. IVC | | | appears NML, est systolic PAP 19-24mmHg. | | + + + + + + | Narrative | Performed At | + + + | Patient Name: Aaron Latham Date of : 1960 | | | Performing Physician: Chris Link DO | | | | | | INDICATIONS CHF, SOB CONCLUSIONS 1. | | | See Dictation. A fib. 2. Moderate concentric LVH, mild global | | | hypokinesis, diastolic function abnormal, [place] visually estimates | | | LVEF 40-45%. Moderate LAE, moderate CYNTHIA. RV not seen well, but | | | suspect RVE. 3. Aortic valve mildly sclerotic, no /AI. Mitral | | | valve grossly NML, mild MAC, mild MR. Tricuspid and Pulmonic valves | | | grossly NML, trace TR, trace PI. 4. No Pericardial effusion. 5. IVC | | | appears NML, est systolic PAP 19-24mmHg. FINDINGS -------- ECG | | | rhythm: Atrial fibrillation. Study: This was a technically adequate | | | study. Left Ventricle: Overall left ventricular systolic function is | | | mild-moderately impaired with, an EF between 40 - 45 %. Left | | | Ventricle: The left ventricle cavity size is normal. Left Ventricle: | | | There is moderate concentric left ventricular hypertrophy. Left | | | Ventricle: Pseudonormal LV diastolic filling pattern, consistent with | | | elevated LA pressure and moderate dysfunction (Grade II). Right | | | Ventricle: The RV was not well visualized. Right Ventricle: | | | Suspect RV enlargement. Left Atrium: The left atrium is moderately | | | enlarged. Right Atrium: The right atrium is moderately enlarged. | | | Aortic Valve: There is mild aortic valve sclerosis without stenosis. | | | Aortic Valve: There is no evidence of aortic regurgitation. Mitral | | | Valve: The mitral valve is normal. Mitral Valve: Mild mitral | | | regurgitation is present. Mitral Valve: Mild mitral annular | | | calcification present. Tricuspid Valve: The tricuspid valve appears | | | structurally normal. Tricuspid Valve: Trace tricuspid regurgitation | | | present. Pulmonic Valve: Pulmonic valve appears structurally normal. | | | Pulmonic Valve: Trace pulmonic regurgitation. Pericardium: There | | | is no pericardial effusion. IVC/Hepatic Veins: The IVC is normal size | | | (1.5-2.5cm) and collapses >50% with sniff, consistent with central | | | venous pressures of 5-10mmHg. MEASUREMENTS | | | Salesperson Surgical Appliances: DBS Authenticated by: Chris Link DO Report | | | Date/Time: 02-16-2016 20:56:07 | | + + + + + | Procedure Note | + + | Ethan, Rad Conversion - 04/02/2019 10:31 PM PDT Patient Name: Paras Latham of | | : 1960 Performing Physician: Chris Link | | DO INDICATIONS C | | HF, SOB CONCLUSIONS 1. See Dictation. A fib. 2. Moderate concentric LVH, mild | | global hypokinesis, diastolic function abnormal, [place] visually estimates LVEF 40-45%. | | Moderate LAE, moderate CYNTHIA. RV not seen well, but suspect RVE. 3. Aortic valve mildly | | sclerotic, no /AI. Mitral valve grossly NML, mild MAC, mild MR. Tricuspid and | | Pulmonic valves grossly NML, trace TR, trace PI. 4. No Pericardial effusion. 5. IVC | | appears NML, est systolic PAP 19-24mmHg. FINDINGS--------ECG rhythm: Atrial | | fibrillation.Study: This was a technically adequate study.Left Ventricle: Overall left | | ventricular systolic function is mild-moderately impaired with, an EF between 40 - 45 | | %.Left Ventricle: The left ventricle cavity size is normal.Left Ventricle: There is | | moderate concentric left ventricular hypertrophy.Left Ventricle: Pseudonormal LV | | diastolic filling pattern, consistent with elevated LA pressure and moderate dysfunction | | (Grade II).Right Ventricle: The RV was not well visualized.Right Ventricle: Suspect | | RV enlargement.Left Atrium: The left atrium is moderately enlarged.Right Atrium: The | | right atrium is moderately enlarged.Aortic Valve: There is mild aortic valve sclerosis | | without stenosis.Aortic Valve: There is no evidence of aortic regurgitation.Mitral | | Valve: The mitral valve is normal.Mitral Valve: Mild mitral regurgitation is | | present.Mitral Valve: Mild mitral annular calcification present.Tricuspid Valve: The | | tricuspid valve appears structurally normal.Tricuspid Valve: Trace tricuspid | | regurgitation present.Pulmonic Valve: Pulmonic valve appears structurally | | normal.Pulmonic Valve: Trace pulmonic regurgitation.Pericardium: There is no | | pericardial effusion.IVC/Hepatic Veins: The IVC is normal size (1.5-2.5cm) and collapses | | >50% with sniff, consistent with central venous pressures of 5-10mmHg. | | MEASUREMENTS Salesperson Surgical Appliances: DBSAuthenticated by: Chris Reyes | | Date/Time: 02-16-2016 20:56:07 IMPRESSION: 1. See Dictation. A fib. 2. Moderate | | concentric LVH, mild global hypokinesis, diastolic function abnormal, [place] visually | | estimates LVEF 40-45%. Moderate LAE, moderate CYNTHIA. RV not seen well, but suspect RVE. | | 3. Aortic valve mildly sclerotic, no /AI. Mitral valve grossly NML, mild MAC, mild | | MR. Tricuspid and Pulmonic valves grossly NML, trace TR, trace PI. 4. No Pericardial | | effusion. 5. IVC appears NML, est systolic PAP 19-24mmHg. | |Mitral Valve: Mild mitral regurgitation is present. | |Mitral Valve: Mild mitral annular calcification present. | |Tricuspid Valve: The tricuspid valve appears structurally normal. | |Tricuspid Valve: Trace tricuspid regurgitation present. | |Pulmonic Valve: Pulmonic valve appears structurally normal. | |Pulmonic Valve: Trace pulmonic regurgitation. | |Pericardium: There is no pericardial effusion. | |IVC/Hepatic Veins: The IVC is normal size (1.5-2.5cm) and collapses >50% with sniff, consis tent with central venous pressures of 5-10mmHg. | | | |MEASUREMENTS | | | | | |Salesperson Surgical Appliances: SANDOR | |Authenticated by: Chris Link DO | |Report Date/Time: 02-16-2016 20:56:07 | | | |IMPRESSION: | |1. See Dictation. A fib. 2. Moderate concentric LVH, mild global hypokinesis, diastolic fu nction abnormal, [place] visually estimates LVEF 40-45%. Moderate LAE, moderate CYNTHIA. RV not seen well, but suspect RVE. 3. Aortic valve mildly sclerotic, no | |/AI. Mitral valve grossly NML, mild MAC, mild MR. Tricuspid and Pulmonic valves grossly NML, trace TR, trace PI. 4. No Pericardial effusion. 5. IVC appears NML, est systolic PAP 1 9-24mmHg. | + + documented in this encounter Visit Diagnoses Not on filedocumented in this encounter"
--- OUTSIDE RECORDS SUMMARY | ~2019-07-10 | XMS | Encounter Summary ---
Demographics + + + | Address | [address] | | | [place] [address] | + + + | Home Phone | | + + + | Preferred Language | Unknown | + + + | Marital Status | Single | + + + | Latter Day Affiliation | LDS | + + + [...] [place] | | | | | [address] | | + + + + + Care Team Providers + +------+ + | Care Instructor Warper Name | Role | Phone | + +------+ + | Sarah Carroll MD | PCP | | + +------+ + Encounter Details +--------+ + + + + | Date | Type | Department | Care Team | Description | +--------+ + + + + | 05/27/ | Hospital | Radiology/Imaging | Milton Mora, | | | 2018 | Encounter | Lab at [facility] [address] | [address] | | | | | [place] Mailcode: | [place], [place] | | | | | [address] | [address] | | | | | Health and Healing, | [phone] | | | | | [address], 3rd | | | | | | Floor [place], [place] | | | | | | [address] | | | | | | [phone] | | | +--------+ + + + [...] + + documented as of this encounter Medications at Time of Discharge [...] | | | | oral tablet | four times daily. | | | | | [...] + | torsemide 10 mg | Take 10 mg by mouth | | 0 | [...] | | | | | directed by MACO | | | | | | | [...] | | 2019 | Visit | | [address] | | | | | | [address] | | | | | | [place], [place] | | | | | | [address] | | | | | | [phone] | | | | | | | | +--------+---------+ + + + documented as of this encounter Procedures + +--------+ + + + | Procedure Name | Priori | Date/Time | Associated Diagnosis | Comments | | | ty | | | | + +--------+ + + + | X-RAY HIP 2 VIEWS | Routin | 05/27/2019 | CKD (chronic | Results for this | | LEFT W/ PELVIS 1 | e | 12:33 PM | kidney disease), | procedure are in the | | VIEW | | PDT | stage III (HCC) | results section. | | | | | Malignant neoplasm | | | | | | of colon, | | | | | | unspecified part of | | | | | | colon (HCC) Ataxia | | | | | | Lumbar | | | | | | radiculopathy | | | | | | Lumbar stenosis with | | | | | | neurogenic | | | | | | claudication Left | | | | | | hip pain | | + +--------+ + + + documented in this encounter Results X-RAY HIP 2 VIEWS LEFT W/ PELVIS 1 VIEW (05/27/2019 12:33 PM PDT) + + | Specimen | + + | | + + + + + | Narrative | Performed At | + + + | EXAM: HIP 2 VIEWS LEFT W/ PELVIS 1 VIEW HISTORY: Evaluate hip | [facility] | | pain. COMPARISON: 12/11/2018 FINDINGS: Moderate bilateral | RADIOLOGY VOICE | | hip osteoarthrosis, right greater than left. There is left-sided | RECOGNITION 2 | | periacetabular mineralization. Pubic symphysis is intact. Sacroiliac | | | joints are symmetric and patent. Evaluation of the sacrum is | | | limited by overlying bowel contents. No acute displaced fracture | | | or malalignment. Incompletely characterized significant | | | degenerative disc disease at the lower lumbar spine. IMPRESSION: | | | Moderate bilateral hip osteoarthrosis, right greater than left, | | | without superimposed acute osseous abnormalities. Incompletely | | | characterized degenerative disc disease at the lower lumbar spine. | | | I have personally reviewed the images and, if necessary, edited the | | | report. I agree with the report as now presented. Final | | | signature: Chris Chicas MD 05/27/2019 12:42 PM Preliminary: | | | Chris Chicas MD Dictation initiated: Chris Chicas MD | | | 05/27/2019 12:41 PM | | + + + + + | Procedure Note | + + | Service Account, Radiant Res In Interface - 05/27/2019 12:43 PM PDT EXAM: HIP 2 VIEWS | | LEFT W/ PELVIS 1 VIEW HISTORY: Evaluate hip pain. COMPARISON: 12/11/2018 FINDINGS: | | Moderate bilateral hip osteoarthrosis, right greater than left. There is left-sided | | periacetabular mineralization. Pubic symphysis is intact. Sacroiliac joints are | | symmetric and patent. Evaluation of the sacrum is limited by overlying bowel contents. | | No acute displaced fracture or malalignment. Incompletely characterized significant | | degenerative disc disease at the lower lumbar spine. IMPRESSION: Moderate bilateral hip | | osteoarthrosis, right greater than left, without superimposed acute osseous | | abnormalities. Incompletely characterized degenerative disc disease at the lower lumbar | | spine. I have personally reviewed the images and, if necessary, edited the report. I | | agree with the report as now presented. Final signature: Chris Chicas MD | | 05/27/2019 12:42 PM Preliminary: Chris Chicas MD Dictation initiated: Chris Souza | | MD Juan Francisco 05/27/2019 12:41 PM | | | |Incompletely characterized significant degenerative disc disease at the lower lumbar spine. | | | |IMPRESSION: | | | |Moderate bilateral hip osteoarthrosis, right greater than left, without superimposed acute osseous abnormalities. | | | |Incompletely characterized degenerative disc disease at the lower lumbar spine. | | | |I have personally reviewed the images and, if necessary, edited the report. I agree with e report as now presented. | | | |Final signature: Chris Chicas MD 05/27/2019 12:42 PM | |Preliminary: Chris Chicas MD | |Dictation initiated: Chris Chicas MD 05/27/2019 12:41 PM | + + + +---------+ + + | Performing | Address | City/State/Zipcode | Phone Number | | Organization | | | | + +---------+ + + | [facility] | | | | | VOICE RECOGNITION 2 | | | | + +---------+ + + documented in this encounter Visit Diagnoses + + | Diagnosis | + + | CKD (chronic kidney disease), stage III (HCC) Chronic kidney disease, Stage III | | (moderate) | + + | Malignant neoplasm of colon, unspecified part of colon (HCC) | + + | Ataxia Lack of coordination | + + | Lumbar radiculopathy Thoracic or lumbosacral neuritis or radiculitis, unspecified | + + | Lumbar stenosis with neurogenic claudication Spinal stenosis, lumbar region, with | | neurogenic claudication | + + | Left hip pain Pain in joint, pelvic region and thigh | + + documented in this encounter"
--- OUTSIDE RECORDS SUMMARY | ~2019-07-10 | XMS | Encounter Summary ---
Demographics + + + | Address | [address] | | | [place] [address] | + + + | Home Phone | | + + + | Preferred Language | Unknown | + + + | Marital Status | Single | + + + | Scientologist Affiliation | LDS | + + + | Race | White | + + + | Ethnic Group | Not or | + + + Author + + + | Author | [facility] | + + + | Organization | [facility] | + + + | Address | Unknown | + + + | Phone | Unavailable | + + + Support + + + + + | Name | Relationship | Address | Phone | + + + + + | Toby Latham | ANNA | [address] | | | | | [place] | | | | | [address] | | + + + + + Care Team Providers + +------+ + | Care Psychologist Developmental Name | Role | Phone | + [...] | | | | | colon | [facility] | [facility] | | | | | Procedures | Rd | Rd | | | | | CONSULT TO | [place], [place] | [place], [place] | | | | | [address] | [address] | [address] | | | | | LOGY | Phone: | Phone: | | | | | CONSULT TO | [phone] | [phone] | | | | | GASTROENTERO | Fax: | Fax: | | | | | LOGY | [phone] | [phone] | + +--------+ + + + + [...] ogy | Villous | [place], | [address] | | | | | adenoma of | MD [address] | Jeffery [address] La Torre | | | | | colon | [address] | Rosario Robles | | | | | Procedures | [place], [place] | Mailcode: | | | | | CONSULT TO | [address] | [id number] | | | | | GI PROCEDURE | Phone: | [facility] | | | | | UNIT: | [phone] | [address] | | | | | COLONOSCOPY | Fax: | [place], | | | | | | [phone] | [place] [address] | | | | | | | Phone: | | | | | | | [phone] | | | | | | | Fax: | | | | | | | [phone] | + +--------+ + + + + [...] adenoma of | MD Tala | [address] | | | | | colon | [address] | [place] | | | | | | Joel Castaneda | Mailcode: | | | | | | [place] | [facility] | | | | | | [place] [address] | [facility] and | | | | | | Phone: | Healing, | | | | | | [phone] | [address] | | | | | | Fax: | [place], [place] | | | | | | [phone] | [address] | | | | | | | Phone: | | | | | | | [phone] | | | | | | | Fax: | | | | | | | [phone] | +--------+--------+ + + + + Encounter Details +--------+---------+ + + + | Date | Type | Department | Care Team | Description | +--------+---------+ + + + | 02/05/ | Office | Digestive Health | Tsikitis, | Villous adenoma of | | 2019 | Visit | [place] at [facility] [address] | [address] | colon (Primary Dx) | | | | [address] | [address] | | | | | Mailcode: Center | [place], [place] | | | | | for Health and | [address] | | | | | Healing, [address] | [phone] | | | | | [facility] [place] | | | | | | [address] | | | | | | [phone] | | | +--------+---------+ + + + [...] history per Note of Dr. Carroll from [facility]: 11/18/18: Seen Dr. Cohen for colonoscopy consult and scheduled for procedure at the hospital given his multiple comorbidities. 12/11/18: Onset of right lower back pain after exiting his truck awkwardly. Seen at ED of [facility] for scheduled colonoscopy. Incidentally also seen [...] Widely patent coloproctectomy. 01/05/19: Dr. Cohen at [facility] and recommended referral to [facility] for surgical ma nagement with human resources temp and superintendent service for tubular adenoma of cecum with underlying CO PD and CHF. 01/08/19: follow up with Dr. Carroll and referred to GI Surgery Dr. Thompson at [facility] REVIEW OF SYSTEMS: As per HPI, otherwise [...] placed to MD CHAVEZ Follow up with nc LEONARDA Mcgraw, MS3 [facility], [employer] Padilla Ko MD General [...] | | 2019 | Visit | | [address] [facility] | | | | | | [address] | | | | | | [place], [place] | | | | | | [address] | | | | | | [phone] | | | | | | | | +--------+---------+ + + + documented as of this encounter Visit Diagnoses + + | Diagnosis | + + | Villous adenoma of colon - Primary Benign neoplasm of colon | + + documented in this encounter
--- OUTSIDE RECORDS SUMMARY | ~2019-07-10 | XMS | Encounter Summary ---
Demographics + + + | Address | [address] | | | [place] [address] | + + + | Home Phone | | + + + | Preferred Language | Unknown | + + + | Marital Status | Single | + + + | Jewish Affiliation | 1077 | + + + | Race | Unknown | + + + | Ethnic Group | Unknown | + + + Author + + + | Author | [facility] | | | and [place] | + + + | Organization | [facility] | | [...] Team Providers + +------+ + | Care Business Applications Developer Name | Role | Phone | [...] | | | | Malignant | | [address] Phone: | | | | | neoplasm of | | [phone] | | | | | sigmoid | | Fax: | | | | | colon (HCC) | | [phone] | | | | | [C18.7] | | | | | | | Procedures | | | | | | | MT PART | | | | | | [...] | | | | [place] | [address] | | | | | [address] | | | | | | [phone] | Gregorio Lopes, | | | | [...] +----+---+ + + | | 1 | [place] off | | | | 3 | [...] | | 1 | | given to CAP COVERER, remedicated for pain and lidocaine infusion | [...] procedure documentation); Mask | SANCHEZ Moore | DRY LUMBER GRADER Student | | | Ventilation: Unable; Airway | | | | | Grade: 1; External Maneuvers: | | | | | elevated head of bed; Successful | | | | | Technique: video scope; | | | | | Laryngoscope Blade Size: 4; | | | | | Attempts: 2 (first attempt by | | | | | DRY LUMBER GRADER student); Airway Type: | | | | [...] | Cathet | Smallest Catheter, Perineum | [facility] | | | er | cleaned, Second [...] | | | | | | [place] [address] | | | | | | [phone] | | | | | | | | +--------+---------+ + + + | 12/02/ | Office | Cardiology | Lorraine Clitfon DO | | | 2019 | Visit | | [address] | | | | | | [place] | | | | | | [address] | | | | | | | | +--------+---------+ + + + | 12/13/ | Office | Nephrology | Jewel Ulloa MD | | | 2019 | Visit | | [address] [email or web address] [place] | | | | | | [address] [place], [place] | | | | | | [address] | | | | | | | [...] equipment: stylette Attempts: 2 (first attempt by DRY LUMBER GRADER | | | student) Airway type: endotracheal [...] styletteAttempts: 2 (first attempt by | | DRY LUMBER GRADER student)Airway type: endotrachealSize: 8Cuffed: cuffedRoute, reference point: [...]
--- OUTSIDE RECORDS SUMMARY | ~2019-07-10 | XMS | Encounter Summary ---
Demographics + + + | Address | [address] | | | [place] [address] | + + + | Home Phone | | + + + | Preferred Language | Unknown | + + + | Marital Status | Single | + + + | Sikh Affiliation | LDS | + + + | Race | White | + + + | Ethnic Group | Not or | + + + Author + + + | Author | [facility] | + + + | Organization | [facility] | + + + | Address | Unknown | + + + | Phone | Unavailable | + + + Support + + + + + | Name | Relationship | Address | Phone | + + + + + | Toby Latham | ANNA | [address] | | | | | [place] | | | | | [address] | | + + + + + Care Team Providers + +------+ + | Care Field Tax Auditor Name | Role | Phone | + +------+ + | Sarah Carroll MD | PCP | | + +------+ + Encounter Details +--------+ + + + + | Date | Type | Department | Care Team | Description | +--------+ + + + + | 07/01/ | Transcribe | [facility] | Transcribe | | | 2019 | Orders | [facility] [address] | Encounter, Provider, | | | | | Nima Grijalva Mailcode: | [address] | | | | | [facility] | [place] [address] | | | | | [facility], | | | | | | [address] | | | | | | [place], [place] | | | | | | [address] | | | | | | [phone] | | | +--------+ + + + [...] | | 2019 | Visit | | [address] | | | | | | [address] | | | | | | CENTER [place], [place] | | | | | | [address] | | | | | | [phone] | | | | | | | [...]
--- OUTSIDE RECORDS SUMMARY | ~2019-07-10 | XMS | Encounter Summary ---
Demographics + + + | Address | [address] | | | [place] [address] | + + + | Home Phone | | + + + | Preferred Language | Unknown | + + + | Marital Status | Single | + + + | Synagogue Affiliation | LDS | + + + [...] [place] | | | | | [address] | | + + + + + Care Team Providers + +------+ + | Care Entertainment Usher Name | Role | Phone | + [...] Rd | | | | | | [place], [place] | | | | | | [address] | | | | | | [phone] | | | | | | | | +--------+---------+ + + + documented as of this encounter Visit Diagnoses Not on filedocumented in this encounter"
--- OUTSIDE RECORDS SUMMARY | ~2019-07-10 | XMS | Encounter Summary ---
Demographics + + + | Address | [address] | | | [place] [address] | + + + | Home Phone [...] Team Providers + +------+ + | Care Highway Maintenance Crew Worker Name | Role | Phone | [...] | | [address] [place] | [address] [place], [place] | | | | | [address] | [address] | | | | | [phone] | | | +--------+ + + + [...] | 2018 | Visit | | [address] | | | | | | [address] | | | | | | [place] [address] | | | | | | [phone] | | | | | | | | +--------+---------+ + + + | 12/02/ | Office | Cardiology | Lorraine Clifton DO | | | 2019 | Visit | | [address] | | | | | | [place] | | | | | | [address] | | | | | | | | +--------+---------+ + + + | 12/13/ | Office | Nephrology | Jewel Ulloa MD | | | 2020 | Visit | | [address] [facility] | | | | | | [address] [place] | | | | | | [address] | | | | | | | | +--------+---------+ + + + documented as of this encounter Visit Diagnoses Not on filedocumented in this encounter"
--- OUTSIDE RECORDS SUMMARY | ~2019-07-10 | XMS | Encounter Summary ---
Demographics + + + | Address | [address] | | | [place] [address] | + + + | Home Phone | | + + + | Preferred Language | Unknown | + + + | Marital Status | Single | + + + | Spiritism Affiliation | 1077 | + + + | Race | Unknown | + + + | Ethnic Group | Unknown | + + + Author + + + | Author | [facility] | | | and [place] | + + + | Organization | [facility] | | [...] Team Providers + +------+ + | Care Strand And Binder Controller Name | Role | Phone | + [...] + + | 02/06/ | Telephone | [facility] | Patrice Cross MD | Other | | 2018 | | [address] [place] | [address] [place] | | | | | [address] [place], [place] | [address] [place], [place] | | | | | [address] | [address] | | | | | [phone] | | | +--------+ + + + [...] [address] | | | | | | [address] | | | | | | [place] [address] | | | | | | [phone] | | | | | | | | +--------+---------+ + + + | 04/23/ | Office | Cardiology | Lorraine Clifton DO | | | 2019 | Visit | | [address] | | | | | | [place] | | | | | | [address] | | | | | | | | +--------+---------+ + + + | 12/13/ | Office | Nephrology | Jewel Ulloa MD | | | 2019 | Visit | | [address] | | | | | | [address] [place] | | | | | | [address] | | | | | | | | +--------+---------+ + + + documented as of this encounter Visit Diagnoses Not on filedocumented in this encounter"
--- OUTSIDE RECORDS SUMMARY | ~2019-07-10 | XMS | Encounter Summary ---
Demographics + + + | Address | [address] | | | [place] [address] | + + + | Home Phone | | + + + | Preferred Language | Unknown | + + + | Marital Status | Single | + + + | Adventism Affiliation | 1077 | + + + | Race | Unknown | + + + | Ethnic Group | Unknown | + + + Author + + + | Author | [facility] | | | and [place] | + + + | Organization | [facility] | | | [...] Team Providers + +------+ + | Care Independent Jeweler Name | Role | Phone | + +------+ + | Sarah Carroll MD | PCP | | + +------+ + Encounter Details +--------+ + + + + | Date | Type | Department | Care Team | Description | +--------+ + + + + | 04/30/ | Orders Only | [facility] | Patrice Cross MD | Renal mass (Primary | | 2018 | | [address] [place] | [address] [place] | Dx) | | | | [address] [place] | [address] [place] | | | | | [address] | [address] | | | | | [phone] | | | +--------+ + + + [...] [address] | | | | | | [place] [address] | | | | | | [phone] | | | | | | | | +--------+---------+ + + + | 12/02/ | Office | Cardiology | Lorraine Clifton DO | | | 2019 | Visit | | [address] | | | | | | [place] | | | | | | [address] | | | | | | | | +--------+---------+ + + + | 12/13/ | Office | Nephrology | Jewel Ulloa MD | | | 2019 | Visit | | [address] [facility] [address] [facility] | | | | | | [address] [place] | | | | | | [address] | | | | | | | [...]
--- OUTSIDE RECORDS SUMMARY | ~2019-07-10 | XMS | Encounter Summary ---
Demographics + + + | Address | [address] | | | [place] [address] | + + + | Home Phone | | + + + | Preferred Language | Unknown | + + + | Marital Status | Single | + + + | Congregation Affiliation | 1077 | + + + | Race | Unknown | + + + | Ethnic Group | Unknown | + + + Author + + + | Author | [facility] | | | and [place] | + + + | Organization | [facility] | | [...] Providers + +------+ + | Care Highway Painter Helper Name | Role | Phone | [...] | | | | Peritoneal | | [address] Phone: | | | | | adhesion | | [phone] | | | | | Procedures | | Fax: | | | | | MA FREEING | | [phone] | | | | | BOWEL | | | | | | | ADHESION,ENT | | | | | | | EROLYSIS MA | | | | | | | [...] | | | | [place] | [address] | LAPAROSCOPIC LYSIS | | | | [address] | | OF ADHESIONS | | | | [phone] | | | +--------+---------+ + + + [...] might be different from t he original. [facility] UROLOGY DISCHARGE SUMMARY Patient Name: Lily Valentin [...] COUMADIN Discontinued Medications [place] Follow-Up: 1. [facility] in 1 week. Please call [phone] during business hours to set up your urology follow up appointm ent. Electronically Signed by: Patrice Cross MD, 06/16/2018 7:42 [facility] documented in this encou nter Discharge Instructions Instructions Teresita Rodgers RN - 06/16/2018Formatting of this note might be different f rom the original. [facility] DISCHARGE INSTRUCTIONS FOLLOWING LAPAROSCOPIC REMOVAL OF [...] on your remaining kidney. CONTACT INFORMATION: - [facility] Office Number: [facility] Office: [phone] [facility] Office: FOLLOWUP INFORMATION: - Dr. Cross will [...] Weakness, dizziness, or fainting Date Last Reviewed: 05/12/201619991518-3331 [employer]. [address] [place] [address]. All righ ts reserved. This information is [...] out or is dislodged Date Last Reviewed: 08/12/201619992780-9598 [employer]. [address] [place] [address], [place] [address]. All righ ts reserved. This information is not intended as a substitute for professional medical care. Always follow your healthcare professional's instructions. [facility] Patient Belongings Lily Valentin 1960 Valuables Dentures: [...] Were Given To: octavio and val[facility]les [id number] 18 Patient Signature: Clinician/Exhibition Specialist Signature: documented in this encounter Medications at Time of Discharge + + + +---------+ + + | Medication | Sig | Dispensed | Refills | Start | End Date | | | | | | Date | | + + + +---------+ + + | acetaminophen | Take 325 mg by mouth | | 0 | | | | (TYLENOL) 500 mg | every 4 hours as | | | | | [...] 11:59 AM PSTPt has d/c orders [place]. Pt h as sacral friction wound approximately 3 inches in diameter. Pt has fungal rash on skin fold s of abdomen. Pt has numerous bruises on abdomen - states these are due to injections. VSS . Pt continues to experience pain at abdominal incision site 3 - 12/19. Pt ambulates independ ently with walker and 1 assist. Pt has Saldana due to urine retention. Pt states he has some numbness bilaterally on soles of feet and on left quadrecep surface. Xavier Griffith PA-C - 06/19/2018 7:[address] [facility] UROLOGY DAILY PROGRESS NOTE ID: Lily Valentin [...] Signed by: Xavier Yip PA-C, 06/19/2018 7:40 [facility] Sasha Blevins, [facility] - 06/18/2018 4:52 PM PSTSOCIAL WORK D/C PLAN: SNF ([facility]) vs home NEXT STEPS: [facility] SNF in [place], [place] has accepted pt pending insurance authorization. [...] d/c to a SNF. SW called to [facility] SNF and they are yash [place]. SW spoke to [facility], Director at [facility]. She stated that pt is not appropr iate for home health. She recommends SNF. She also stated that pt's insurance is difficult t o work with and only authorized 1 home health visit and it took 10 plus days to get auth'ed for any other home health visits. ASSESSMENT/CHART REVIEW: 58 year old male with [employer] [place] from [place]. Pt lives with his elderly mother. Pt is bariatric. D/C TRANSPORT: jasson Matta- [phone]. SW originally asked for him to pick [...] support at home. CONTACTS: Toby Valentin, mother- [phone] Electronically signed by JOSH Mcbride 06/18/2018 4:52 PM Page Melton RN - 06/17/2018 5:58 PM PSTSocial worker notifi ed this RN that patient would not be able to discharge today due to SNF placement issues. Th is RN notified Xavier Yip PA-C for urology regarding canceled discharge. Electronically s igned by: Page Ortiz RN 06/17/2018 18:02 [facility] B[facility]ins Jayesh, LICS W - 06/17/2018 4:35 PM PSTSOCIAL WORK D/C PLAN: SNF ([facility]) vs home? NEXT STEPS: Need PT to re-evaluate for disposition. PT can call this SW at [phone] to discuss d/c plan satya concerns. Awaiting returned call from [facility] SNF admissions ([phone]) re: if pt wo uld be appropriate [...] d/c to a SNF. SARAH called to [facility] SNF and they a re reviewing. SARAH spoke to Angelika, Director at [facility]. She stated that pt is not appropr iate for home health. She recommends SNF. She also stated that pt's insurance is difficult t o work with and only authorized 1 home health visit and it took 10 plus days to get auth'ed for any other home health visits. ASSESSMENT/CHART REVIEW: 58 year old male with [employer] [place] from [place]. Pt lives with his elderly mother. Pt is bariatric. D/C TRANSPORT: jasson Matta- [phone]. SARAH originally asked for him to pick [...] support at home. CONTACTS: Toby Valentin, mother- [phone] Electronically signed by JOSH Mcbride 06/17/2018 4:38 PM Kasia Stroud RN - 06/17/2018 11:33 AM PSTFormatting of this no te might be different from the original. [facility] Wound, Ostomy, & Continence Nursing Note Date [...] 1 08/17/2017 8:05 AM PST [facility] DAILY PROGRESS NOTE ID: Lily Valentin [...] Signed by: Patrice Cross MD, 06/17/2018 8:05 [facility] Patrice Ag MD - 06/16 7:42 AM PST [facility] DAILY PROGRESS NOTE ID: Lily Valentin [...] Signed by: Patrice Cross MD, 06/16/2018 7:42 [facility] Jack Lewis MD - 06/15/2018 8:00 AM [...] 36 sec IMAGING: All images reviewed by ky NEDA08/15/2017 Large amount of gas in intestines, [...] - 06/13/2018 12:20 PM PDT [facility] DAILY PROGRESS NOTE ID: Lily Valentin [...] Signed by: Xavier Yip PA-C, 06/13/2018 12:20 [facility] Associated attestation - Patrice Cross MD - [...] - 06/12/2018 5:33 AM PDT [facility] DAILY PROGRESS NOTE ID: Lily Valentin [...] Signed by: Patrice Cross MD, 06/12/2018 5:33 [facility] documented in this encou nter Plan of Treatment +--------+---------+ + + + | Date | Type | Specialty | Care Team | Description | +--------+---------+ + + + | 07/13/ | Office | Cardiology | Ileana Henson | | | 2018 | Visit | | [address] | | | | | [address] | | | | | | [place] [address] | | | | | | [phone] | | | | | | | | +--------+---------+ + + + | 12/02/ | Office | Cardiology | Lorraine Clifton DO | | | 2019 | Visit | | [address] | | | | | | [place] | | | | | | [address] | | | | | | | | +--------+---------+ + + + | 12/13/ | Office | Nephrology | Jewel Ulloa MD | | | 2019 | Visit | | [address] [facility] | | | | | | [address] [place] | | | | | | [address] | | | | | | | [...] | | | NIEVES | | | JORGEN | | | SON | +---+--------+ + [...] +---+ + documented in this encounter Results Protime INR (06/19/2018 2:38 AM PST) + + [...] | | | | to 3.5Performed by [facility] | | LABORATORY | | | | [address], [place], | | [place] | | | | [place] [address] | | | | + + + + + + + + | Specimen | + + | Blood specimen | | (specimen) | + + + + + + + | Performing | Address | City/State/Zipcode | Phone Number | | Organization | | | | + + + + + | [facility] | [address] | [place] [address] | | | [facility] | | | | | LABORATORY [...] [facility] | | | | Performed by [facility] [address] | | SACRED | | | | [address] [place] | | HEART | | | | [address] | | MEDICAL | | | | [...] + + | [facility] | [address] | [place] [address] | | | [facility] | | | | | LABORATORY [...] | | | | to 3.5Performed by [facility] | | LABORATORY | | | | [address] [place], | | [place] | | | | [place] [address] | | | | + + + + + + + + | Specimen | + + | Blood specimen | | (specimen) | + + + + + + + | Performing | Address | City/State/Zipcode | Phone Number | | Organization | | | | + + + + + | [facility] | [address] | [place] [address] | | | [facility] | | | | | LABORATORY [place] | | | | + + + + + Protime INR (06/17/2018 3:04 AM PST) + + [...] | | | | to 3.5Performed by [facility] | | LABORATORY | | | | [address], | | [place] | | | | [place] [address] | | | | + + + + + + + + | Specimen | + + | Blood specimen | | (specimen) | + + + + + + + | Performing | Address | City/State/Zipcode | Phone Number | | Organization | | | | + + + + + | [facility] | [address] | [place] [address] | | | [facility] | [...] [facility] | | | | Performed by [facility] [address] | | SACRED | | | | [address] [place] | | HEART | | | | [address] | | MEDICAL | | | | [...] + + | [facility] | [address] | [place] [address] | | | [facility] | | | | | LABORATORY [...] | | | | to 3.5Performed by [facility] | | LABORATORY | | | | [address], | | [place] | | | | [place] [address] | | | | + + + + + + + + | Specimen | + + | Blood specimen | | (specimen) | + + + + + + + | Performing | Address | City/State/Zipcode | Phone Number | | Organization | | | | + + + + + | [facility] | [address] | [place] [address] | | | [facility] | | | | | LABORATORY [...] | | MEDICAL | | | | [facility] [address], | | CENTER | | | | [place] [address] | | LABORATORY | | | | [...] + + | [facility] | [address] | [place] [address] | | | [facility] | | | | | STEPHEN [...] | 27 (L)Comment: eGFR<60 | >=90 | [facility] | | | GFR | consistent with impaired | mL/min/1.73m2 | [facility]ED | | | | kidney | | HEART | | | | function.Performed by | | MEDICAL | | | | [facility] [address], | | CENTER | | | | [place] [address] | | LABORATORY | | | | [...] + + | [facility] | [address] | [place] [address] | | | [facility] | | | | | LABORATORY [place] | | | | + + + + + Protime INR (06/15/2018 2:39 AM PST) + + + [...] | | | | to 3.5Performed by [facility] | | LABORATORY | | | | [address], [place], | | [place] | | | | [place] | | | | + + + + + + + + | Specimen | + + | Blood specimen | | (specimen) | + + + + + + + | Performing | Address | City/State/Zipcode | Phone Number | | Organization | | | | + + + + + | [facility] | [address] | [place] [address] | | | [facility]ICAL [facility]ENTER | [...] | | | | | seconds.Performed by [facility] | | | | | | [address], | | | | | | [place] [address] | | | | + + + + + + + + | Specimen | + + | Blood specimen | | (specimen) | + + + + + + + | Performing | Address | City/State/Zipcode | Phone Number | | Organization | | | | + + + + + | [facility] | [address] | [place] [address] | | | [facility] | | | | | LABORATORY [...] ENCE | | | Basophils | by [facility] [address], | [place]/uL | SACRED | | | | [place] [address] | | HEART | | | |Performed by [facility] [address], [place] [address] | | MEDICA L | | | [...] + | [facility] | [address] | [place] [address] | | | [facility] | | | | | LABORATORY [...] | | MEDICAL | | | | [facility] [address], | | CENTER | | | | [place] [address] | | LABORATORY | | | | [...] + + | [facility] | [address] | [place] [address] | | | HEART [facility] | | | | | [...] + + | Ethan, Rad Results In 06/15/2018 2:04 AM PST | | RIGHT [...] [facility] NCE | | | | by [facility] [address], | | SACRED | | | | [place] | | HEART | | | |Performed by [facility] [address], [place] | | MEDICAL | | | | [...] + + | [facility] | [address] | [place], [place] | | | [facility]ICAL [facility]ENTER | | | | | LABORATORY [place] | | | | + + + + + Protime INR (06/14/2018 9:31 AM PDT) + + [...] | | | | to 3.5Performed by [facility] | | LABORATORY | | | | [address], [place], | | [place] | | | | [place] [address] | | | | + + + + + + + + | Specimen | + + | Blood specimen | | (specimen) | + + + + + + + | Performing | Address | City/State/Zipcode | Phone Number | | Organization | | | | + + + + + | [facility] | [address] | [place] [address] | | | [facility] | | | | | STEPHEN [...] | | MEDICAL | | | | [facility] [address], | | [place] | | | | [place] [address] | | LABORATORY | | | | [...] + | [facility] | [address] | [place] [address] | | | [facility] | | | | [...] | | MEDICAL | | | | [facility] [address], | | CENTER | | | | [place] [address] | | LABORATORY | | | | [...] + + | [facility] | [address] | [place] [address] | | | [facility] | | | | | LABORATORY [...] PROVID[facility] NCE | | | | by [facility] [address], | | SACRED | | | | [place] [address] | | HEART | | | |Performed by [facility] [address], [place] [address] | | MEDICAL | | | | [...] + + | [facility] | [address] | [place] [address] | | | [facility] | | | | | LABORATORY [...] | | MEDICAL | | | | [facility] [address], | | CENTER | | | | [place] [address] | | LABORATORY | | | | [...] + + | [facility] | [address] | [place] [address] | | | [facility] | | | | | STEPHEN [...] ROBERTA | | | | Performed by [facility] [address] | | SACRED | | | | [address], [place] | | HEART | | | | [address] | | MEDICAL | | | | [...] [address] | [place] [address] | | | HE[facility]ICAL [facility]ENTER | [...] | | MEDICAL | | | | [facility] [address], | | CENTER | | | | [place] [address] | | LABORATORY | | | | [...] + + | [facility] | [address] | [place] [address] | | | [facility] | | | | | STEPHEN CAVANAUGH | | | | + + + + + Tissue Request For Pathology (06/11/2018 2:57 PM PDT) + + | Specimen | + + | | + + + + + | Narrative | Performed At | + + + | | [facility] | | LILY VALENTIN | [place] | | : 1960 AGE: 58 years SEX: Male | MEDICAL CENTER | | | LABORATORY | | Acct: [id number] Location: | [place] | | [facility] SURG; 552; 552-02 Case #: | | | [id number] Ordering: PATRICE CROSS MD | | | Client: [facility] | | | Copy To: Printed: [...] MDVerify Date: 06/18/2018 12:37 pmPerforming Location: [facility] | | | [facility], [place] [address] | | | DESCRIPTION:This case is received [...] PDT | | | 06/11/2018 16:06 PDT DIANAN RICARDO | | | DESCRIPTION:Three masses are [...] | | | ureteral and renal vasculature margins.Electronics Assembler And Tester sections are | | | submitted as [...] pelvis and sinus | | | fat. Electronics Assembler And Tester sections are submitted during second look with | | | Jc on 06/12/18 as follows: "B9-B10" - upper pole mass including | | | surrounding renal parenchyma; "B11-B12" - upper pole lesion including | | | interface with perinephric adipose tissue.CT/AK10//MICROSCOPIC | | | DESCRIPTION:Histologic sections of all [...] + | [facility] | [address] | [place] [address] | | | [facility] | | | | | LABORATORY [...] | | | | | | [facility] | | | | | | [facility] | | | | | | [facility] | | | | | | BLOOD | | | | | | CENTER | | + + + + + + | Rh Type | PositiveComment: Patient | | [facility] | | | | is remote crossmatch | | LAB [facility] | | | | eligible | | [...] + + + | Specimen Expiration Date: [id number] | [facility] | | | [facility] | | | [facility] | | | [facility] | + + + + + + + + | Performing | Address | City/State/Zipcode | Phone Number | | Organization | | | | + + + + + | [facility] | [address] | [place] [address] | [phone] | | [facility] | | | | | [facility] [...] | | | | | | [facility] | | | | | | [facility] | | | | | | [facility] | | | | | | BLOOD | | | | | | CENTER | | + + + + + + | Rh Type | Positive | | REFER[facility] | | | | | | [facility] | | | | | | [facility] | | | | | | [facility] | | | | | | BLOOD | | | | | | CENTER | | + + + + + + | Antibody | Negative | | REFERENCE | | | Screen | | | [facility] | | | | | | [facility] [...] + + + | Specimen Expiration Date: [id number] | [facility] | | | [facility] | | | [facility] | | | [facility] | + + + + + + + + | Performing | Address | City/State/Zipcode | Phone Number | | Organization | | | | + + + + + | [facility] | [address] | [place] [address] | [phone] | | [facility] | | | | | [facility] [...] | | | POC | Performed by [facility] [address] | | SACRED | | | | [address] [place] | | HEART | | | | [address] | | MEDICAL | | | | [...] + + | [facility] | [address] | [place] [address] | | | [facility] | | | | | LABORATORY [...] | | | Site | | Starting 06/11/18 at 1345, | | PM PDT | [...] | | | | Nausea, Vomiting, Starting Sat | | | | | [...] | | | | | dose on [facility] 06/12/18 at 0900, | | AM PST [...] | | | | First dose on Sat06/14/18 at | | PM PST | | [...]
--- OUTSIDE RECORDS SUMMARY | ~2019-07-10 | XMS | Encounter Summary ---
Demographics + + + | Address | [address] | | | [place] [address] | + + + | Home Phone [...] + + + | Author | [facility] | | | and [place] | + + + | Organization | [facility] | | | [...] Team Providers + +------+ + | Care Investigation Clerk Name | Role | Phone | [...] | MED CTR EXTERNAL | MD Kaitlin [address] | | | | | IMAGING | Terry SMITH | | | | | [phone] | [place] [address] | | +--------+ + + + + [...] | | | | | [place] [address] | | | | | | [phone] | | | | | | | | +--------+---------+ + + + | 12/02/ | Office | Cardiology | Lorraine Clifton DO | | | 2019 | Visit | | [address] | | | | | | [place] | | | | | | [address] | | | | | | | | +--------+---------+ + + + | 12/13/ | Office | Nephrology | Jewel Ulloa MD | | | 2019 | Visit | | [address] [facility] | | | | | | [address] [place], [place] | | | | | | [address] | | | | | | | [...]
--- OUTSIDE RECORDS SUMMARY | ~2019-07-10 | XMS | Encounter Summary ---
Demographics + + + | Address | [address] | | | [place] [address] | + + + | Home Phone [...] Team Providers + +------+ + | Care Account Liaison Hospice Name | Role | Phone | + [...] | | | neoplasm of | | [phone] | | | | | sigmoid | | Fax: | | | | | colon (HCC) | | [phone] | | | | | [C18.7] | | | | | | | Procedures | | | | | | | IA PART | | | | | | [...] | | | | [place] Ramos | [phone] | | | | | [address] | | | | | | [phone] | | | +--------+---------+ + + + [...] Instructions Instructions Gretel Peña RN - 08/23/2017 [facility] Patient Belongings Aaron L[place] 1960 Valuables Dentures: None Vision - Corrective Lenses: None Hearing Aid: None Jewelry: None Clothing: Pants, Shirt, Footwear ( Duffel/CPAP/CANE/Hospital provided bag with clothing sen t to PACU pt. storage bins) Other Valuables: CPAP/BiPAP, Secured on Unit Other Valuables: None Home Medications: None Patient Signature: Clinician/Big 6 Dealer Signature: Incision Care: Abdomen Dressing your incision [...] by your healthcare provider Date Last Reviewed: 07/12/201619998463-7151 [employer]. [address] [place] [address]. All righ ts reserved. This information is [...] You may c ough up blood. 2015 [employer] All illustrations and images included in CareNotes a re the copyrighted property of [employer] or [employer]. documented in this encounter Medications at Time [...] 0700 08/23/17 07 - 08/24/17 0700 Shift 1888-7011 2654-0556 24 Hour Total 0488-3626 9404-3284 24 Hour Total I N T A [...] Arango - 08/22/2017 4:26 PM PSTSocial Work: [facility] service the area in [place] where patient lives. Called [facility] in [place]. Made referral. They will verify insurance and call back hopefully in am. Spoke with pt and his mother Toby. Transport difficulties for discharge today, but their fr iend should be at [facility] at 1000 08/23. Sasha Belvins LICSW - 08/21/2017 4:06 PM PSTSocial Work: [...] with her in her mobile home in [place], [place]. She is agreeable to home health and after review of choice s, chose [facility]. Referral made to [facility] by voicemail and fa x. Will await response from them on whether they can follow; would need to call them when pt d/c's but otherwise they can follow in [facility]. Pt will have a friend pick him [...] 08/20/17 0708/20/17 07 - 08/21/17 0700 Shift 4554-7264 4046-2547 24 Hour Total 9803-2808 2023-4607 24 Hour Total I N T A [...] 850 (5.4) 2050 (13.1) 2900 (18.5) NET -894 -730 -987 Weight (kg) 156.9 156.9 156.9 [...] 08/19/17 0708/19/17 07 - 08/20/17 0700 Shift 2158-9900 4925-0456 24 Hour Total 9429-8042 1984-1746 24 Hour Total I N T A [...] (mL/kg) 1400 (8.9) 2675 (17) 4075 (26) [facility] 1389 -1904 Weight (kg) 156.9 156.9 156.9 156.9 156.9 [...] 0700 08/18/17 0701 - 08/19/17 0700 Shift 6684-1906 6660-5051 24 Hour Total 0238-0069 6403-4588 24 Hour Total I N T A [...] 0700 08/17/17 07 - 08/18/17 0700 Shift 5195-8274 24 Hour Total 2885-7211 8050-9214 24 Hour Total I N T A [...] U T P U T Urine (mL/kg/hr) 663 158 4662 (0.7) 1300 Blood 150 Shift Total (mL/kg) [...] [address] | | | | | | [place] [address] | | | | | | [phone] | | | | | | | | +--------+---------+ + + + | 12/02/ | Office | Cardiology | Lorraine Clifton DO | | | 2019 | Visit | | [address] | | | | | | [place] | | | | | | [address] | | | | | | | | +--------+---------+ + + + | 12/13/ | Office | Nephrology | Jewel Ulloa MD | | | 2019 | Visit | | [address] [facility] | | | | | | [address] [place] | | | | | | [address] | | | | | | | [...] + | [facility] | [address] | [place] [address] | | | [facility] | | | | | LABORATORY | [...] + + | [facility] | [address] | [place] [address] | | | [facility] | | | | | LABORATORY | [...] + + | Glucose | 149 (H)Comment: Portuguese | 65 - 99 mg/dL | [facility] [...] + + | [facility] | [address] | [place] [address] | | | [facility] | | | | | LABORATORY | | | | + + + + + Surgical Pathology Exam (08/16/2017 12:53 PM PST) + + | Specimen | + + | | + + + + + | Narrative | Performed At | + + + | SURGICAL PATHOLOGY REPORT | [facility] | | Date Taken: 08/16/2017 Date Received: 08/16/2017 | [facility] | | Completed: 08/20/2017 Physician: Mehul KINSEY Copy to: [facility] | | DIAGNOSIS: Colon, sigmoid, segmental [...] cm to 0.5 cm in greatest dimension. Sponge Hooker | | | sections are submitted as [...] the pathologic diagnosis. A: | | | 10416, 97799, 31829, 34729, 79596(e) | | | PROCEDURES/ADDENDA SPECIAL STAINS DIAGNOSIS: [...] developed and their performance characteristics determined by [facility]. This test is used for clinical | | | purposes. It should not be regarded as investigational or for | | | research. [facility] is certified under the Clinical | | | Laboratory Improvement Amendments of 1988 (CLIA) as qualified to | | | perform high complexity clinical laboratory testing. Comment: | | | Breast predictive markers have not been validated on decalcified | | | specimens. Bladimir Staley MD Testing performed | | | at: [facility] | | | Michelle Arredondo, Director [address] [place] [address] [place] [address] | | | [address] | | + + + + + + + + | Performing | Address | City/State/[facility] | Phone Number | | Organization | | | | + + + + + | [facility] | [address] | [place] [address] | | | [facility] | | | | | [...] + + | Glucose | 113 (H)Comment: Portuguese | 65 - 99 mg/dL | [facility]ERT[facility] [...] + + | [facility] | [address] | [place] [address] | | | [facility] | | | | | [...] + + | [facility] | [address] | [place] [address] | | | [facility] | | | | | LABORATORY | [...] [address] | [place] [address] | | | [facility] | | | | | [...] + + | [facility] | [address] | [place] [address] | | | [facility] | | | | | LABORATORY | [...] policy and contact | | | provider congressional aide, | | + +---+ | | | [...]
--- OUTSIDE RECORDS SUMMARY | ~2019-07-10 | XMS | Encounter Summary ---
Demographics + + + | Address | [address] | | | [place] [address] | + + + | Home Phone [...] [place] | | | | | [address] | | + + + + + Care Team Providers + +------+ + | Care Supervisor Hard Candy Name | Role | Phone | + [...] Rd | | | | | | [place], [place] | | | | | | [address] | | | | | | [phone] | | | | | | | | +--------+---------+ + + + documented as of this encounter Visit Diagnoses Not on filedocumented in this encounter"
--- OUTSIDE RECORDS SUMMARY | ~2019-07-10 | XMS | Encounter Summary ---
Demographics + + + | Address | [address] | | | [place] [address] | + + + | Home Phone [...] + + + | Author | [facility] | | | and [place] | + + + | Organization | [facility] | | [...] Team Providers + +------+ + | Care Synchronizer Name | Role | Phone | + [...] | Rheumatology | Diagnoses | [place], | | | | Services | | CRP | Riccardo Mcgill MD | | | | Required | | elevated Ds | [address] | | | | | | DNA | [address] | | | | | | antibody | RAUDEL STARKS, | | | | | | positive | [place] [address] | | | | | | Peripheral | Phone: | | | | | | polyneuropat | [phone] | | | | | | hy Numbness | Fax: | | | | | | of both | [phone] | | | | | | lower | | | | | | | extremities | | | +--------+ + + + + + Reason for Visit +---------+ + | Reason | Comments | +---------+ + | Results | | +---------+ + Encounter Details +--------+ + + + + | Date | Type | Department | Care Team | Description | +--------+ + + + + | 03/09/ | Telephone | [facility] | Riccardo Malhotra, | Results | | 2019 | | PHYSIATRY [address] | MD [address] | | | | | [place], | [place], [place] | | | | | [place] [address] | [address] | | | | | [phone] | | | +--------+ + + + [...] | 07/13/ | Office | Cardiology | SixtoIleana | | | 2019 | Visit | | RUPAL [address] | | | | | | [address] | | | | | | [place] [address] | | | | | | [phone] | | | | | | | | +--------+---------+ + + + | 12/02/ | Office | Cardiology | Lorraine Clifton DO | | | 2019 | Visit | | [address] | | | | | | [place] | | | | | | [address] | | | | | | | | +--------+---------+ + + + | 12/13/ | Office | Nephrology | Jewel Ulloa MD | | | 2019 | Visit | | [address] [place] | | | | | | [address] [place], [place] | | | | | | [address] | | | | | | | | +--------+---------+ + + + + + +--------+ + + | Name | Type | Priori | Associated Diagnoses | Order Schedule | | | | ty | | | + + +--------+ + + | Rheumatology, | Outpatient | Routin | CRP elevated Ds | Ordered: 03/09/2019 | | External - AMB | Referral | e | DNA antibody | | | Referral | | | positive Peripheral | | | | | | polyneuropathy | | | | | | Numbness of both | | | | | | lower extremities | | + + +--------+ + + documented as of this encounter Visit Diagnoses + + | Diagnosis | + + | CRP elevated - Primary Elevated C-reactive protein (CRP) | + + | Ds DNA antibody positive Other and unspecified nonspecific immunological findings | + + | Peripheral polyneuropathy Unspecified hereditary and idiopathic peripheral neuropathy | + + | Numbness of both lower extremities | + + documented in this encounter"
--- OUTSIDE RECORDS SUMMARY | ~2019-07-10 | XMS | Encounter Summary ---
Demographics + + + | Address | [address] | | | [place] [address] | + + + | Home Phone [...] Team Providers + +------+ + | Care Enterprise Services Manager Name | Role | Phone | [...] [place] | | | | | [place] OFFICE | [place] [address] | [address] Phone: | | | | | OUTPATIENT | Phone: | [phone] | | | | | VISIT 15 | [phone] | Fax: | | | | | MINUTES CC | Fax: | [phone] | | | | | FOLLOW UP | [phone] | | +--------+--------+ + + + + [...] | | | | [place] | [address] | excess calories with | | | | [address] | | body mass index | | | | [phone] | | (BMI) of 45.0 to | [...] laparoscope (scope). This is a thin, ligh koif tube with a camera on the end. The scope lets the surgeon work through a few small cuts (incisions). In most cases, after surgery your body can still work well with only one health y kidney and ureter. How to say it YZ-act-qgo-SKOP-ik AUQ-vap-BPPN-pq-sdhl-RXC-tuh-joey Getting readyfor surgery Follow any instructions from your healthcare provider. Tell your provider about any medicines you are taking. You may need to stop taking all or s ome of these before the test. These include: All prescription medicines Blood-thinning medicines (anticoagulants) Pita-ink-vbjqrzc medicines such as aspirin or ibuprofen Street [...] discuss these with you. Date Last Reviewed: 12/10/201619999099-3282 [employer]. [address] [place] [address]. All righ ts reserved. This information is not intended as a substitute for professional medical care. Always follow your healthcare professional's instructions. documented in this encounter Progress Notes Patrice Cross MD - 05/15/2018 1:30 PM PDTFormatting of this note might be different from t harini quinones. [facility] OFFICE NOTE Primary Care Physician: Sarah [...] FLEXIBLE SIGMOIDOSCOPY; Surgeon: Mehul Bowles MD; Location: [facility] MAIN OR COLONOSCOPY 05/22/2017 [facility] [...] at 13:24 CC: Sarah Gallegos MD [address] [place] [address] documented in this encou nter Plan of Treatment +--------+---------+ + + + | Date | Type | Specialty | Care Team | Description | +--------+---------+ + + + | 07/13/ | Office | Cardiology | Ileana Henson | | | 2018 | Visit | | [address]AL [address] | | | | | | [address] | | | | | | [place] [address] | | | | | | [phone] | | | | | | | | +--------+---------+ + + + | 12/02/ | Office | Cardiology | Lorraine Clifton DO | | | 2019 | Visit | | [address] | | | | | | [place] | | | | | | [address] | | | | | | | | +--------+---------+ + + + | 12/13/ | Office | Nephrology | Jewel Ulloa MD | | | 2019 | Visit | | [address] [facility] | | | | | | [address] [place], [place] | | | | | | [address] | | | | | | | [...] 1.001 - 1.030 | | | | [place], | | | | | | [facility], [...]
--- OUTSIDE RECORDS SUMMARY | ~2019-07-10 | XMS | Encounter Summary ---
Demographics + + + | Address | [address] | | | [place] [address] | + + + | Home Phone [...] Team Providers + +------+ + | Care Water Truck Driver Name | Role | Phone | [...] + + | 07/10/ | Telephone | [facility] | Patrice Cross MD | Other (Lab order) | | 2017 | | [address] [place] | [address] [place] | | | | | [address] [place], [place] | [address] [place] | | | | | [address] | [address] | | | | | [phone] | | | +--------+ + + + [...] [address] | | | | | | [place] [address] | | | | | | [phone] | | | | | | | | +--------+---------+ + + + | 12/02/ | Office | Cardiology | Lorraine Clifton DO | | | 2019 | Visit | | [address] | | | | | | [place] [facility] [place] | | | | | | [address] | | | | | | | | +--------+---------+ + + + | 12/13/ | Office | Nephrology | Jewel Ulloa MD | | | 2019 | Visit | | [address] [facility] [address] [place] | | | | | | [address] [place] | | | | | | [address] | | | | | | | [...]
--- OUTSIDE RECORDS SUMMARY | ~2019-07-10 | XMS | Encounter Summary ---
Demographics + + + | Address | [address] | | | [place] [address] | + + + | Home Phone [...] Team Providers + +------+ + | Care Ferruler Name | Role | Phone | + +------+ + | Sarah Craroll MD | PCP | | + +------+ + Encounter Details +--------+ + + + + | Date | Type | Department | Care Team | Description | +--------+ + + + + | 07/28/ | Orders Only | [facility] | Jewel Ulloa MD | | | 2018 | | NEPHROLOGY [place] | [address] [place] | | | | | [address] [place] | [address] [place], [place] | | | | | [address] [place], [place] | [address] | | | | | [address] | | | | | | [phone] | | | +--------+ + + + [...] | | | | | [place] [address] | | | | | | [phone] | | | | | | | | +--------+---------+ + + + | 12/02/ | Office | Cardiology | Lorraine Clifton DO | | | 2019 | Visit | | [address] | | | | | | [place] | | | | | | [address] | | | | | | | | +--------+---------+ + + + | 12/13/ | Office | Nephrology | Jewel Ulloa MD | | | 2019 | Visit | | [address] [facility] | | | | | | [address] [place], [place] | | | | | | [address] | | | | | | | | +--------+---------+ + + + documented as of this encounter Procedures + +--------+ + + + | Procedure Name | Priori | Date/Time | Associated Diagnosis | Comments | | | ty | | | | + +--------+ + + + | EXTERNAL LAB: CBC | Routin | 07/28/2018 | | Results [...] + + + | RED CELL | 3.45 (A) | 4.3 - 5.7 10 | EXTERNAL | | | COUNT | | | LAB | | + + + + + + | Hgb | 11.3 (A) | 13.5 - 18.0 [...]
--- OUTSIDE RECORDS SUMMARY | ~2019-07-10 | XMS | Encounter Summary ---
Demographics + + + | Address | [address] | | | [place] [address] | + + + | Home Phone [...] + + + | Author | [facility] | | | and [place] | + + + | Organization | [facility] | | | [...] Team Providers + +------+ + | Care Wire Mesh Gate Assembler Name | Role | Phone | + +------+ + | Sarah Carroll MD | PCP | | + +------+ + Encounter Details +--------+ + + + + | Date | Type | Department | Care Team | Description | +--------+ + + + + | 02/04/ | Orders Only | [facility] | Jewel Ulloa MD | | | 2019 | | NEPHROLOGY [place] | [address] [place] | | | | | [address] [place] | [address] [place], [place] | | | | | [address] [place], [place] | [address] | | | | | [address] | | | | | | [phone] | | | +--------+ + + + [...] | | | | | [place] [address] | | | | | | [phone] | | | | | | | | +--------+---------+ + + + | 12/02/ | Office | Cardiology | Lorraine Clifton DO | | | 2019 | Visit | | [address] | | | | | | [place] | | | | | | [address] | | | | | | | | +--------+---------+ + + + | 12/13/ | Office | Nephrology | Jewel Ulloa MD | | | 2019 | Visit | | [address] [facility] | | | | | | [address] [place] | | | | | | [address] | | | | | | | | +--------+---------+ + + + documented as of this encounter Procedures + +--------+ + + + | Procedure Name | Priori | Date/Time | Associated Diagnosis | Comments | | | ty | | | | + +--------+ + + + | EXTERNAL LAB: SHAR[facility] | Routin | 02/04/2019 | | Results [...] + + + | RED CELL | 3.86 (A) | 4.3 - 5.7 [...]
--- OUTSIDE RECORDS SUMMARY | ~2019-07-10 | XMS | Encounter Summary ---
Demographics + + + | Address | [address] | | | [place] [address] | + + + | Home Phone | | + + + | Preferred Language | Unknown | + + + | Marital Status | Single | + + + | Temple Affiliation | 1077 | + + + [...] Team Providers + +------+ + | Care Eco Industrial Development Consultant Name | Role | Phone | + +------+ + | Sarah Carroll MD | PCP | | + +------+ + Encounter Details +--------+ + + + + | Date | Type | Department | Care Team | Description | +--------+ + + + + | 01/02/ | Orders Only | [facility] | Jewel Ulloa MD | | | 2019 | | NEPRHOLOGY [place] | [address] | | | | | [address] | 160 [place], [place] | | | | | [address] [place], [place] | [address] | | | | | [address] | | | | | | [phone] | | | +--------+ + + + [...] | 07/13/ | Office | Cardiology | Sixto Ileana | | | 2018 | Visit | | [address] | | | | | | [address] | | | | | | [place] [address] | | | | | | [phone] | | | | | | | | +--------+---------+ + + + | 12/02/ | Office | Cardiology | Lorraine Clifton DO | | | 2019 | Visit | | [address] | | | | | | [place] | | | | | | [address] | | | | | | | | +--------+---------+ + + + | 12/13/ | Office | Nephrology | Jewel Ulloa MD | | | 2019 | Visit | | [address] [facility] | | | | | | [address] [place], [place] | | | | | | [address] | | | | | | | [...] | | | LAB | | | [place] | | | | | + + [...]
--- OUTSIDE RECORDS SUMMARY | ~2019-07-10 | XMS | Encounter Summary ---
Demographics + + + | Address | [address] | | | [place] [address] | + + + | Home Phone | | + + + | Preferred Language | Unknown | + + + | Marital Status | Single | + + + | Spiritism Affiliation | 1077 | + + + | Race | Unknown | + + + | Ethnic Group | Unknown | + + + Author + + + | Author | [facility] | | | and [place] | + + + | Organization | [facility] | | | [...] Team Providers + +------+ + | Care Payment Processor Name | Role | Phone | + [...] PHYSIATRY [address] | MD [address] | | | | | [place], | [place], [place] | | | | | [place] [address] | [address] | | | | | [phone] | | | +--------+ + + + [...] [address] | | | | | | [place] [address] | | | | | | [phone] | | | | | | | | +--------+---------+ + + + | 04/23/ | Office | Cardiology | Lorraine Clifton DO | | | 2019 | Visit | | [address] | | | | | | [place] | | | | | | [address] | | | | | | | | +--------+---------+ + + + | 12/13/ | Office | Nephrology | Jewel Ulloa MD | | | 2019 | Visit | | [address] | | | | | | [address] [place] | | | | | | [address] | | | | | | | | +--------+---------+ + + + documented as of this encounter Visit Diagnoses Not on filedocumented in this encounter"
--- OUTSIDE RECORDS SUMMARY | ~2019-07-10 | XMS | Encounter Summary ---
Demographics + + + | Address | [address] | | | [place] [address] | + + + | Home Phone | | + + + | Preferred Language | Unknown | + + + | Marital Status | Single | + + + | Hoahaoism Affiliation | 1077 | + + + | Race | Unknown | + + + | Ethnic Group | Unknown | + + + Author + + + | Author | [facility] | | | and [place] | + + + | Organization | [facility] | | [...] Providers + +------+ + | Care Trust Manager Assistant Name | Role | Phone | + +------+ + | Sarah Carroll MD | PCP | | + +------+ + Encounter Details +--------+ + + + + | Date | Type | Department | Care Team | Description | +--------+ + + + + | 02/04/ | Orders Only | [facility] | Jewel Ulloa MD | | | 2019 | | NEPHROLOGY [place] | [address] [place] | | | | | [address] [place] | [address] [place], [place] | | | | | [address] [place], [place] | [address] | | | | | [address] | | | | | | [phone] | | | +--------+ + + + [...] | | | | | [place] [address] | | | | | | [phone] | | | | | | | | +--------+---------+ + + + | 12/02/ | Office | Cardiology | Lorraine Clifton DO | | | 2019 | Visit | | [address] | | | | | | [place] | | | | | | [address] | | | | | | | | +--------+---------+ + + + | 12/13/ | Office | Nephrology | Jewel Ulloa MD | | | 2019 | Visit | | [address] [facility] | | | | | | [address] [place] | | | | | | [address] | | | | | | | [...]
--- OUTSIDE RECORDS SUMMARY | ~2019-07-10 | XMS | Encounter Summary ---
Demographics + + + | Address | [address] | | | [place] [address] | + + + | Home Phone | | + + + | Preferred Language | Unknown | + + + | Marital Status | Single | + + + | Mormonism Affiliation | LDS | + + + | Race | White | + + + | Ethnic Group | Not or | + + + Author + + + | Author | [facility] | + + + | Organization | [facility] | + + + | Address | Unknown | + + + | Phone | Unavailable | + + + Support + + + + + | Name | Relationship | Address | Phone | + + + + + | Toby Latahm | ANNA | [address] | | | | | [place] | | | | | [address] | | + + + + + Care Team Providers + +------+ + | Care Olericulture Teacher Name | Role | Phone | + +------+ + | Sarah Carroll MD | PCP | | + +------+ + Encounter Details +--------+ + + + + | Date | Type | Department | Care Team | Description | +--------+ + + + + | 07/01/ | Transcribe | [facility] | Transcribe | | | 2019 | Orders | [facility] [address] | Encounter, Provider, | | | | | Nima Grijalva Mailcode: | [address] | | | | | [facility] | [place] [address] | | | | | [facility], | | | | | | [address] | | | | | | [place], [place] | | | | | | [address] | | | | | | [phone] | | | +--------+ + + + [...] | | 2019 | Visit | | [address] | | | | | | [address] | | | | | | [place], [place] | | | | | | [address] | | | | | | [phone] | | | | | | | [...]
--- OUTSIDE RECORDS SUMMARY | ~2019-07-10 | XMS | Encounter Summary ---
Demographics + + + | Address | [address] | | | [place] [address] | + + + | Home Phone [...] [place] | | | | | [address] | | + + + + + Care Team Providers + +------+ + | Care Lmsw Name | Role | Phone | + [...] 09/10/ | Office | Orthopedics | Richard Hravey, | | | 2019 | Visit | | [address] | | | | | | [address] | | | | | | [place], [place] | | | | | | [address] | | | | | | [phone] | | | | | | | | +--------+---------+ + + + documented as of this encounter Visit Diagnoses Not on filedocumented in this encounter"
--- OUTSIDE RECORDS SUMMARY | ~2019-07-10 | XMS | Encounter Summary ---
Demographics + + + | Address | [address] | | | [place] [address] | + + + | Home Phone [...] Team Providers + +------+ + | Care Mining Detail Draftsperson Name | Role | Phone | + +------+ + | Sarah Carroll MD | PCP | | + +------+ + Encounter Details +--------+ + + + + | Date | Type | Department | Care Team | Description | +--------+ + + + + | 07/11/ | Orders Only | [facility] | Conversion | | | 2018 | | NEPRHOLOGY [place] | Transaction, | | | | | [address] | Provider Unknown | | | | | [address] [place], [place] | [phone] | | | | | [address] | | | | | | [phone] | | | +--------+ + + + [...] | | | | | [place] [address] | | | | | | [phone] | | | | | | | | +--------+---------+ + + + | 12/02/ | Office | Cardiology | Lorraine Clifton DO | | | 2019 | Visit | | [address] | | | | | | [place] | | | | | | [address] | | | | | | | | +--------+---------+ + + + | 12/13/ | Office | Nephrology | Jewel Ulloa MD | | | 2019 | Visit | | [address] [facility] | | | | | | [address] [place], [place] | | | | | | [address] | | | | | | | [...] + + + | RED CELL | 3.15 (A) | 4.3 - 5.7 10 | EXTERNAL | | | COUNT | | | LAB | | + + + + + + | Hgb | 10.4 (A) | 13.5 - 18.0 [...]
--- OUTSIDE RECORDS SUMMARY | ~2019-07-10 | XMS | Encounter Summary ---
Demographics + + + | Address | [address] | | | [place] [address] | + + + | Home Phone [...] Team Providers + +------+ + | Care Executive Sales Manager Name | Role | Phone | [...] | | | | Peritoneal | | [address] Phone: | | | | | adhesion | | [phone] | | | | | Procedures | | Fax: | | | | | MA FREEING | | [phone] | | | | | BOWEL | [...] [address] | [place] [address] | | | | | [place] | [phone] | | | | | [address] | | | | | | [phone] | Leyla Lepe, | | | | | | BAKER OPERATOR AUTOMATIC [address] | | | | | | [place] | | | | | | [address] | | | | | | | | +--------+ + + + + Anesthesia Record + + + + + | Procedure Name | Responsible | Anesthesia Start | Anesthesia Stop Time | | | Anesthesiologist | Time | | + + + + + | LEFT LAPAROSCOPIC | Feliberto Beltran MD | 06/11/18 1312 | 06/11/18 4349 | | NEPHRECTOMY WITH | | | [...] +----+---+ + + | | 1 | Zamora | | | | 3 | 43-degrees [...] +----+---+ + + | | 1 | Zamora off | | | | 5 | [...] 06/12/18 0722 by | | cherelle | yiap-jhu-xgltja catheter system; | yMla Vega RN | Helen Pearson, | | [...] | | | procedure documentation); Mask | BAKER OPERATOR AUTOMATIC | BAKER OPERATOR AUTOMATIC | | | Ventilation: EZ w/OA; Airway [...] | Forearm; 18 gauge; 06/16/18; 1237 | BAKER OPERATOR AUTOMATIC | | +--------+ + + + | [...] [place] | | | | | | [place] [address] | | | | | | [phone] | | | | | | | | +--------+---------+ + + + | 12/02/ | Office | Cardiology | Lorraine Clifton DO | | | 2019 | Visit | | [address] | | | | | | [place] | | | | | | [address] | | | | | | | | +--------+---------+ + + + | 12/13/ | Office | Nephrology | Jewel Ulloa MD | | | 2019 | Visit | | [address] | | | | | | [address] [place] | | | | | | [address] | | | | | | | [...] Signed by: Feliberto Beltran | | | MD [place] date/time: 06/11/2018 17:50 | | | | [...] or MAR for all medication documentation.Performing provider: IKKA | | FELIBERTOElectronically Signed by: Feliberto Beltran MD ESig date/time: | | 06/11/2018 17:50 | |Needle: [...] | | | | |Electronically Signed by: Feliberto Beltran MD ESig date/time: 8 17:50 | + + Anesthesia Peripheral IV Note (06/11/2018 1:55 PM PDT) + + + | Narrative | Performed At | + + + | Leyla Lepe CRNA 06/11/2018 13:58 Intravenous Line | | | Placement 06/11/2018 13:40 Indication: necessitating | | | physician/BAKER OPERATOR AUTOMATIC skill Preparation: chlorhexidine/isopropyl alcohol | | | patient was: under GA Side: right Vein location: forearm Size: 18 g | | | Localization technique: landmark Securement: transparent dressing | | | and tape Placed by: LEYLA LEPE Electronically | | | Signed by: Leyla Lepe CRNA ESig | | | date/time: 06/11/2018 13:55 | | + + + + + | Procedure Note | + + | Leyla Lepe CRNA - 06/11/2018 1:55 PM PDT Intravenous Line | | Yeiwalqhi69/31/2018 13:40Indication: necessitating physician/BAKER OPERATOR AUTOMATIC skillPreparation: | | chlorhexidine/isopropyl alcoholpatient was: under GASide: rightVein location: | | forearmSize: 18 g Localization technique: landmarkSecurement: transparent dressing and | | tapePlaced by: LEYLA LEPEElectronically Signed by: Leyla Lepe CRNA | | ESig date/time: 06/11/2018 13:55 | |patient was: under GA | |Side: right | |Vein location: forearm | |Size: 18 g | |Localization technique: landmark | |Securement: transparent dressing and tape | |Placed by: LEYLA LEPE | | | | | |Electronically Signed by: Leyla Lepe CRNA ESi date/time: 05/14 13:55 | + + Anesthesia [...] - 06/11/2018 1:52 PM PDT Arterial Line Jdxibibev27/31/2018 | | 13:30Indication: continuous blood pressure monitoringPrep solution: | | chlorhexidine/isoproplyl alcoholPatient was: under GALaterality: leftArtery:radialSize: | | 21 gLocalization technique: landmarkSecurement: tape and transparent dressingPerformed | | by: ALEX MCKEON LElectronically Signed by: Leyla Lepe CRNA | | ESig date/time: 06/11/2018 13:52 | |Laterality: left | |Artery:radial | |Size: 21 g | |Localization technique: landmark | |Securement: tape and transparent dressing | |Performed by: ALEX MCKEON L | | | | | |Electronically Signed by: Leyla Lepe CRNA ESig date/time: 05/14 13:52 | + + Anesthesia [...] 1:51 PM PDT Anesthesia Airway | | Txcsjtfkg33/31/2018 13:24Preprocedure check: patient identified, oxygen, airway | [...] | | | | | | Starting 06/11/18 at 1207, | | | | | [...] 18 1:58 | | | | | 06/11/18 at [...] Intravenous, PRN, Starting Sat | | 18 3:46 | | | [...]
--- OUTSIDE RECORDS SUMMARY | ~2019-07-10 | XMS | Encounter Summary ---
Demographics + + + | Address | [address] | | | [place] [address] | + + + | Home Phone [...] Team Providers + +------+ + | Care Mold Cleaner Name | Role | Phone | + +------+ + | Sarah Carroll MD | PCP | | + +------+ + Encounter Details +--------+ + + + + | Date | Type | Department | Care Team | Description | +--------+ + + + + | 06/16/ | Orders Only | [facility] | Jewel Ulloa MD | Essential | | 2019 | | NEPHROLOGY [place] | [address] [place] | hypertension with | | | | [address] | [address] [place], [place] | goal blood pressure | | | | [address] | [address] | less than 130/80 | | | | [place], [place] | | (Primary Dx); | | | | [address] | | Subclinical | | | | [phone] | | hypothyroidism; | | | | [...] [place] | | | | | | [place] [address] | | | | | | [phone] | | | | | | | | +--------+---------+ + + + | 12/02/ | Office | Cardiology | Lorraine Clifton DO | | | 2019 | Visit | | [address] | | | | | | [place] | | | | | | [address] | | | | | | | | +--------+---------+ + + + | 12/13/ | Office | Nephrology | Jewel Ulloa MD | | | 2019 | Visit | | [address] | | | | | | [address] [place] | | | | | | [address] | | | | | | | [...] 3 | | | | | | ([facility]) | | + +------+--------+ + + | [...] 3 | | | | | | ([facility]) | | + +------+--------+ + + documented [...]
--- OUTSIDE RECORDS SUMMARY | ~2019-07-10 | XMS | Encounter Summary ---
Demographics + + + | Address | [address] | | | [place] [address] | + + + | Home Phone [...] Team Providers + +------+ + | Care Info Specialist Name | Role | Phone | + +------+ + | Sarah Carroll MD | PCP | | + +------+ + Encounter Details +--------+ + + + + | Date | Type | Department | Care Team | Description | +--------+ + + + + | 06/06/ | Telephone | [facility] [facility] | Patrice Cross MD | | | 2017 | | [address] | [address] | | | | | [address] | [address] [place] | | | | | [place], [place] | [address] | | | | | [address] | | | | | | [phone] | | | +--------+ + + + [...] | | | | | [place] [address] | | | | | | [phone] | | | | | | | | +--------+---------+ + + + | 12/02/ | Office | Cardiology | Lorraine Clifton DO | | | 2019 | Visit | | [address] | | | | | | [place] | | | | | | [address] | | | | | | | | +--------+---------+ + + + | 12/13/ | Office | Nephrology | Jewel Ulloa MD | | | 2020 | Visit | | [address] [facility] | | | | | | [address] [place] | | | | | | [address] | | | | | | | | +--------+---------+ + + + documented as of this encounter Visit Diagnoses Not on filedocumented in this encounter"
--- OUTSIDE RECORDS SUMMARY | ~2019-07-10 | XMS | Encounter Summary ---
Demographics + + + | Address | [address] | | | [place] [address] | + + + | Home Phone | | + + + | Preferred Language | Unknown | + + + | Marital Status | Single | + + + | Christian Affiliation | 1077 | + + + | Race | Unknown | + + + | Ethnic Group | Unknown | + + + Author + + + | Author | [facility] | | | and [place] | + + + | Organization | [facility] | | | [...] Team Providers + +------+ + | Care Solar Hot Water Installer Name | Role | Phone | + +------+ + | Sarah Carroll MD | PCP | | + +------+ + Encounter Details +--------+ + + + + | Date | Type | Department | Care Team | Description | +--------+ + + + + | 03/05/ | Orders Only | [facility] | Provider, | Mixed | | 2019 | | [facility] | MD Kaitlin [address] | hyperlipidemia; | | | | CONVERSION [address] | [address] | Essential (primary) | | | | [address] [place], [place] | [place] [address] | hypertension; | | | | [address] | | Chronic kidney | | | | [phone] | | disease, stage III | | [...] [place] | | | | | [place] [address] | | | | | | [phone] | | | | | | | | +--------+---------+ + + + | 12/02/ | Office | Cardiology | Lorraine Clifton DO | | | 2019 | Visit | | [address] | | | | | | [place] | | | | | | [address] | | | | | | | | +--------+---------+ + + + | 12/13/ | Office | Nephrology | Jewel Ulloa MD | | | 2019 | Visit | | [address] | | | | | | [address] [place] | | | | | | [address] | | | | | | | [...] | | | | | | (moderate) ([facility]) | | | | | | Neoplasm [...] | | | | | | (moderate) ([facility]) | | | | | | Chronic kidney | | | | | | disease, stage III | | | | | | (moderate) ([facility]) | | + +------+--------+ + + | CBC with | Lab | Routin | Chronic kidney | Expected: | | Differential | | e | disease, stage III | 02/23/2019, Expires: | | | | | (moderate) ([facility]) | 02/10/2020 | | | | [...] Expires: | | | | | (moderate) ([facility]) | 02/10/2020 | | | | [...] Expires: | | | | | (moderate) ([facility]) | 02/10/2020 | | | | [...] Expires: | | | | | (moderate) ([facility]) | 02/10/2020 | | | | [...] Expires: | | | | | (moderate) ([facility]) | 02/10/2020 | | | | [...] Expires: | | | | | (moderate) ([facility]) | 02/10/2020 | | | | [...]
--- OUTSIDE RECORDS SUMMARY | ~2019-07-10 | XMS | Encounter Summary ---
Demographics + + + | Address | [address] | | | [place] [address] | + + + | Home Phone [...] + + + | Author | [facility] | | | and [place] | + + + | Organization | [facility] | | | [...] Providers + +------+ + | Care Chief Of Production Name | Role | Phone | + +------+ + | Sarah Carroll MD | PCP | | + +------+ + Encounter Details +--------+ + + + + | Date | Type | Department | Care Team | Description | +--------+ + + + + | 02/04/ | Orders Only | [facility] | Conversion | | | 2019 | | NEPHROLOGY [place] | Transaction, | | | | | [address] | Provider Unknown | | | | | [address] [place], [place] | [phone] | | | | | [address] | (Fax) | | | | | [phone] | | | +--------+ + + + [...] | | | | | [place] [address] | | | | | | [phone] | | | | | | | | +--------+---------+ + + + | 12/02/ | Office | Cardiology | Lorraine Clifton DO | | | 2019 | Visit | | [address] | | | | | | [place] | | | | | | [address] | | | | | | | | +--------+---------+ + + + | 12/13/ | Office | Nephrology | Jewel Ulloa MD | | | 2019 | Visit | | [address] [facility] | | | | | | [facility] | | | | | | [address] | | | | | | | [...]
--- OUTSIDE RECORDS SUMMARY | ~2019-07-10 | XMS | Encounter Summary ---
Demographics + + + | Address | [address] | | | [place] [address] | + + + | Home Phone [...] + + + | Author | [facility] | | | and [place] | + + + | Organization | [facility] | | | [...] Team Providers + +------+ + | Care Sales/Marketing Name | Role | Phone | + +------+ + | Sarah Carroll MD | PCP | | + +------+ + Encounter Details +--------+ + + + + | Date | Type | Department | Care Team | Description | +--------+ + + + + | 01/19/ | Orders Only | [facility] | Jewel Ulloa MD | | | 2019 | | NEPHROLOGY [place] | [address] [place] | | | | | [address] [place] | [address] [place], [place] | | | | | [address] [place], [place] | [address] | | | | | [address] | | | | | | [phone] | | | +--------+ + + + [...] | | | | | [place] [address] | | | | | | [phone] | | | | | | | | +--------+---------+ + + + | 12/02/ | Office | Cardiology | Lorraine Clifton DO | | | 2019 | Visit | | [address] | | | | | | [place] | | | | | | [address] | | | | | | | | +--------+---------+ + + + | 12/13/ | Office | Nephrology | Jewel Ulloa MD | | | 2019 | Visit | | [address] [facility] | | | | | | [address] [place] | | | | | | [address] | | | | | | | | +--------+---------+ + + + documented as of this encounter Procedures + +--------+ + + + | Procedure Name | Priori | Date/Time | Associated Diagnosis | Comments | | | ty | | | | + +--------+ + + + | EXTERNAL LAB: CBC | Routin | 01/19/2019 | | Results [...] | | | LAB | | | [facility] | | | | | + + [...]
--- OUTSIDE RECORDS SUMMARY | ~2019-07-10 | XMS | Encounter Summary ---
Demographics + + + | Address | [address] | | | [place] [address] | + + + | Home Phone [...] Team Providers + +------+ + | Care Aircraft Worker Name | Role | Phone | + +------+ + | Sarah Carroll MD | PCP | | + +------+ + Encounter Details +--------+ + + + + | Date | Type | Department | Care Team | Description | +--------+ + + + + | 01/30/ | Telephone | [facility] | Patrice Cross MD | | | 2018 | | [address] | [address] | | | | | [address] | [address] [place] | | | | | [place], [place] | [address] | | | | | [address] | | | | | | [phone] | | | +--------+ + + + [...] | | | | | [place] [address] | | | | | | [phone] | | | | | | | | +--------+---------+ + + + | 12/02/ | Office | Cardiology | Lorraine Clifton DO | | | 2019 | Visit | | [address] | | | | | | [place] | | | | | | [address] | | | | | | | | +--------+---------+ + + + | 12/13/ | Office | Nephrology | Jewel Ulloa MD | | | 2020 | Visit | | [address] [facility] | | | | | | [address] [place] | | | | | | [address] | | | | | | | | +--------+---------+ + + + documented as of this encounter Visit Diagnoses Not on filedocumented in this encounter"
--- OUTSIDE RECORDS SUMMARY | ~2019-07-10 | XMS | Encounter Summary ---
Demographics + + + | Address | [address] | | | [place] [address] | + + + | Home Phone | | + + + | Preferred Language | Unknown | + + + | Marital Status | Single | + + + | Muslim Affiliation | LDS | + + + | Race | White | + + + | Ethnic Group | Not or | + + + Author + + + | Author | [facility] | + + + | Organization | [facility] | + + + | Address | Unknown | + + + | Phone | Unavailable | + + + Support + + + + + | Name | Relationship | Address | Phone | + + + + + | Toby Latham | ANNA | [address] | | | | | [place] | | | | | [address] | | + + + + + Care Team Providers + +------+ + | Care Motor Block Mechanic Name | Role | Phone | [...] Medicine Clinic at | ANP [address] | (Primary Dx); | | | | [facility] | [facility] [address] | Essential | | | | [address] | [place], [place] | hypertension; | | | | Mail Code: OC8PM | [address] | Congestive heart | | | | [facility] | [phone] | failure, unspecified | | | | and Healing, | | HF chronicity, | | | | Building [address] | | unspecified heart | | | | [place], [place] | | failure type (HCC); | | | | [address] | | Subclinical | | | | [phone] | | hypothyroidism; | | | | [...] sit, stand or walk. Surgery check-in location: [address], 1st Floor [facility] Surgery Check in Time: The Preoperative Medicine [...] ch as Uber/Lyft), or public transportation. An Uber/Lyft/motorcycle delivery driver does not count as the responsible [...] it is after office hours, call the [facility] quilting machine operator at [phone] and ask them to page him or [...] Proposed Procedure/Date: Colonoscopy/EGD 04/14/19 Proposed Procedure Location: [facility] HISTORY OF PRESENT ILLNESS: Aaron [...] EKG: Personally reviewed [facility] and "[facility]" tab. Findings pertinent to [...] contribute to this patient's care. GEORGIANA Reynolds [facility] PB PREOPERATIVE MEDICINE CLINIC AT [address] [address] I spent time counseling the [...] Rd | | | | | | [place], [place] | | | | | | [address] | | | | | | [phone] | | | | | | | | +--------+---------+ + + + documented as of this encounter Procedures + +--------+ + + + | Procedure Name | Priori | Date/Time | Associated Diagnosis | Comments | | | ty | | | | + +--------+ + + + | RI COLLECTION VENOUS | Routin | 03/30/2019 | [...] | | | LABORATORY | | | MAUR[facility]IAN | | | SERVICES, | | | [...] MDRD equation recommended by the National | [facility] | | Kidney Disease Education Program. Estimated [...] | + + + + + | [facility] | [address] | [place] [address] | | | SERVICES, CORE | NIKKI [...] + + + + + + | QTCB | 463 | ms | [facility] [...] + + + | ECG | Prolonged RI interval | | [facility] | | [...] DEPT OF | [address] | [place], [place] | | | CARDIOLOGY | [address] | [address] | | + + + + + [...]
--- OUTSIDE RECORDS SUMMARY | ~2019-07-10 | XMS | Encounter Summary ---
Demographics + + + | Address | [address] | | | [place] [address] | + + + | Home Phone | | + + + | Preferred Language | Unknown | + + + | Marital Status | Single | + + + | Zoroastrian Affiliation | 1077 | + + + | Race | Unknown | + + + | Ethnic Group | Unknown | + + + Author + + + | Author | [facility] | | | and [place] | + + + | Organization | [facility] | | [...] Team Providers + +------+ + | Care Obstetrics Gynecology Physician Name | Role | Phone | [...] [address] | | | | | [address] | [address] [place] [address] | | | | | [place], [place] | [address] | | | | | [address] | | | | | | [phone] | | | +--------+ + + + [...] | | | | | [place] [address] | | | | | | [phone] | | | | | | | | +--------+---------+ + + + | 12/02/ | Office | Cardiology | Lorraine Clifton DO | | | 2019 | Visit | | [address] | | | | | | [place] | | | | | | [address] | | | | | | | | +--------+---------+ + + + | 12/13/ | Office | Nephrology | Jewel Ulloa MD | | | 2020 | Visit | | [address] [facility] | | | | | | [address] [place] | | | | | | [address] | | | | | | | | +--------+---------+ + + + documented as of this encounter Visit Diagnoses Not on filedocumented in this encounter"
--- OUTSIDE RECORDS SUMMARY | ~2019-07-10 | XMS | Encounter Summary ---
Demographics + + + | Address | [address] | | | [place] [address] | + + + | Home Phone [...] Team Providers + +------+ + | Care Database Designer Name | Role | Phone | + +------+ + | Sarah Carroll MD | PCP | | + +------+ + Encounter Details +--------+ + + + + | Date | Type | Department | Care Team | Description | +--------+ + + + + | 07/28/ | Orders Only | [facility] | Jewel Ulloa MD | | | 2018 | | NEPRHOLOGY [place] | [address] [facility] [address] | | | | | [address] | [address] [place], [place] | | | | | [address] [place], [place] | [address] | | | | | [address] | | | | | | [phone] | | | +--------+ + + + [...] | | | | | [place] [address] | | | | | | [phone] | | | | | | | | +--------+---------+ + + + | 12/02/ | Office | Cardiology | Lorraine Clifton DO | | | 2019 | Visit | | [address] | | | | | | [place] | | | | | | [address] | | | | | | | | +--------+---------+ + + + | 12/13/ | Office | Nephrology | Jewel Ulloa MD | | | 2019 | Visit | | [facility] [address] [facility] | | | | | | [address] [place], [place] | | | | | | [address] | | | | | | | [...]
--- OUTSIDE RECORDS SUMMARY | ~2019-07-10 | XMS | Encounter Summary ---
Demographics + + + | Address | [address] | | | [place] [address] | + + + | Home Phone | | + + + | Preferred Language | Unknown | + + + | Marital Status | Single | + + + | Synagogue Affiliation | 1077 | + + + | Race | Unknown | + + + | Ethnic Group | Unknown | + + + Author + + + | Author | [facility] | | | and [place] | + + + | Organization | [facility] | | [...] Providers + +------+ + | Care Electrical Assistant Name | Role | Phone | + +------+ + | Sarah Carroll MD | PCP | | + +------+ + Encounter Details +--------+ + + + + | Date | Type | Department | Care Team | Description | +--------+ + + + + | 01/22/ | Orders Only | [facility] | Mauliktayla Ileana | | | 2017 | | CARDIOLOGY [place] | [address] | | | | | [address] | [address] [place] | | | | | [place], [place] | [place] [address] | | | | | [address] | [phone] | | | | | [phone] | | | +--------+ + + + [...] [place] | | | | | | [place] [address] | | | | | | [phone] | | | | | | | | +--------+---------+ + + + | 12/02/ | Office | Cardiology | Lorraine Clifton DO | | | 2019 | Visit | | [address] | | | | | | [place] [facility] [place] | | | | | | [address] | | | | | | | | +--------+---------+ + + + | 12/13/ | Office | Nephrology | Jewel Ulloa MD | | | 2019 | Visit | | [address] [facility] | | | | | | [address] [place] | | | | | | [address] | | | | | | | | +--------+---------+ + + + documented as of this encounter Procedures + +--------+ + + + | Procedure Name | Priori | Date/Time | Associated Diagnosis | Comments | | | ty | | | | + +--------+ + + + | EXTERNAL LAB: CBC | Routin | 01/22/2017 | | | | | e | 9:23 AM | | | | | | PDT | | | + +--------+ + + + | EXTERNAL LAB: CBC | Routin | 01/22/2017 | | Results [...] in this encounter Results External Lab: CBC (01/22/2017 9:23 AM PDT) + +-------+ + + + | Component | Value | Ref Range | Performed | Pathologist | | | | | At | Signature | + +-------+ + + + | WBC | | 10 | EXTERNAL | | | | | | LAB | | + +-------+ + + + | RED CELL | | 10 | EXTERNAL | | | COUNT | | | LAB | | + +-------+ + + + | Hgb | | g/dL | EXTERNAL | | [...] + + + | RED CELL | 3.41 (A) | 4.3 - 5.7 10 | EXTERNAL | | | COUNT | | | LAB | | + + + + + + | Hgb | 11.4 (A) | 13.5 - 18.0 [...]
--- OUTSIDE RECORDS SUMMARY | ~2019-07-10 | XMS | Encounter Summary ---
Demographics + + + | Address | [address] | | | [place] [address] | + + + | Home Phone | | + + + | Preferred Language | Unknown | + + + | Marital Status | Single | + + + | Restorationism Affiliation | LDS | + + + [...] [place] | | | | | [address] | | + + + + + Care Team Providers + +------+ + | Care General Service Officer Name | Role | Phone | + +------+ + | Sarah Carroll MD | PCP | | + +------+ + Encounter Details +--------+ + + + + | Date | Type | Department | Care Team | Description | +--------+ + + + + | 04/14/ | Transcribe | [facility] | Transcribe | | | 2019 | Orders | [address] | Encounter, Provider, | | | | | Nima Grijalva Mailcode: | [address] | | | | | OC[facility]L [facility] | [place] [address] | | | | | Health and Healing, | | | | | | Building [address] | | | | | | [place], [place] | | | | | | [address] | | | | | | [phone] | | | +--------+ + + + [...] | | 2019 | Visit | | [address] | | | | | | [address] | | | | | | [place], [place] | | | | | | [address] | | | | | | [phone] | | | | | | | | +--------+---------+ + + + documented as of this encounter Results COLONOSCOPY (07/01/2019 10:08 AM PST) + + | Specimen | + + | | + + + + + | Narrative | Performed At | + + + | MRN: | [facility] | | [id number] Date: 07/01/2019Patient Name: Aaron Justin #: | ENDOSCOPY | | [id number] of : 1960SN: [id number] Type: | | | AmbulatoryRoom: Endo 5Procedure: | | | ColonoscopyIndications: Therapeutic procedure for known | | | colon polypPatient Profile: This is a 59 year old male. Refer to | | | note in patient chart for | | | documentation of history and physical.Providers: WILLA | | | MD PEDRO (Doctor), CATARINA SOLIMAN RN | | | (Nurse), NGHIA YBARRA (Court Registry Officer)Referring MD: WILLA | | | PEDRO MDRequesting [...] the procedure. The Olympus | | | [id number] Colonoscope #[id number] was introduced | | | through the [...] | | any questions, please contact the ward helper. | | | - Clear liquid diet [...]
--- OUTSIDE RECORDS SUMMARY | ~2019-07-10 | XMS | Encounter Summary ---
Demographics + + + | Address | [address] | | | [place] [address] | + + + | Home Phone | | + + + | Preferred Language | Unknown | + + + | Marital Status | Single | + + + | Temple Affiliation | LDS | + + + | Race | White | + + + | Ethnic Group | Not or | + + + Author + + + | Author | [facility] | + + + | Organization | [facility] | + + + | Address | Unknown | + + + | Phone | Unavailable | + + + Support + + + + + | Name | Relationship | Address | Phone | + + + + + | Toby Latham | ANNA | [address] | | | | | [place] | | | | | [address] | | + + + + + Care Team Providers + +------+ + | Care Software Sales Executive Name | Role | Phone | [...] + + | 04/14/ | Anesthesia | [facility] | Paddy Pearson, | | | 2019 | Event | [address] | DO [address] | | | | | Nima Grijalva Mailcode: | [address] | | | | | [address] for | [place], [place] | | | | | Health and Healing, | [address] | | | | | [facility] 2 | [phone] | | | | | [place], [place] | | | | | | [address] | | | | | | [phone] | | | +--------+ + + + [...] Rd | | | | | | [place], [place] | | | | | | [address] | | | | | | [phone] | | | | | | | [...]
--- OUTSIDE RECORDS SUMMARY | ~2019-07-10 | XMS | Encounter Summary ---
Demographics + + + | Address | [address] | | | [place] [address] | + + + | Home Phone [...] Providers + +------+ + | Care Internet Programmer Name | Role | Phone | + +------+ + | Sarah Carroll MD | PCP | | + +------+ + Encounter Details +--------+---------+ + + + | Date | Type | Department | Care Team | Description | +--------+---------+ + + + | 06/15/ | Office | [facility] | Jewel Ulloa MD | Chronic kidney | | 2019 | Visit | NEPHROLOGY [place] | [address] [place] | disease, stage 3 | | | | [address] | [address] [place], [place] | (HCC) (Primary Dx); | | | | [address] | [address] | Anemia of chronic | | | | [place], [place] | | renal failure, stage | | | | [address] | | 3 (moderate) ([facility]); | | | | [phone] | | Persistent | | | | [...] | | | | 59.9 in adult ([facility]); | | | | | | Essential [...] RFP, CBC, uric acid, iPTH, Urine total qvvatwl-px-qjxqmnqjmn ratio before he comes back in 6 months. documented in this encounter Progress Notes Jewel Ulloa MD - 06/15/2019 3:20 PM PST Patient Active Problem List Diagnosis Date Noted POA Positive NICKIE (antinuclear antibody) 06/10/2019 Unknown SS-B antibody positive [...] RFP, CBC, uric acid, iPTH, Urine total klaynsb-wk-yubzlihkev ratio before he comes back in 6 [...] concerns. Truly yours, Jewel Ulloa MD FACP MARTA SUNIL documented in this enco unter Plan of Treatment +--------+---------+ + + + | Date | Type | Specialty | Care Team | Description | +--------+---------+ + + + | 07/13/ | Office | Cardiology | Ileana Henson | | | 2018 | Visit | | [address] | | | | | | [address] | | | | | | [place] [address] | | | | | | [phone] | | | | | | | | +--------+---------+ + + + | 12/02/ | Office | Cardiology | Lorraine Clifton DO | | | 2019 | Visit | | [address] | | | | | | [place] | | | | | | [address] | | | | | | | | +--------+---------+ + + + | 12/13/ | Office | Nephrology | Jewel Ulloa MD | | | 2019 | Visit | | [address] [facility] [facility] | | | | | | [address] [place] | | | | | | [address] | | | | | | | [...]
--- OUTSIDE RECORDS SUMMARY | ~2019-07-10 | XMS | Encounter Summary ---
Demographics + + + | Address | [address] | | | [place] [address] | + + + | Home Phone [...] [place] | | | | | [address] | | + + + + + Care Team Providers + +------+ + | Care Rod Hanger Name | Role | Phone | + +------+ + PCP | Unavailable | + +------+ + Encounter Details +--------+ + + + + | Date | Type | Department | Care Team | Description | +--------+ + + + + | 01/14/ | Abstract | [facility] | Clinic, Surgery | | | 2019 | | [place] [facility] [address] | | | | | | [address] | | | | | | Mailcode: [place] | | | | | | for Health and | | | | | | Healing, Building [address] | | | | | | [facility] [place] | | | | | | [address] | | | | | | [phone] | | | +--------+ + + + [...] | | 2019 | Visit | | [address] | | | | | | [address] | | | | | | [place], [place] | | | | | | [address] | | | | | | [phone] | | | | | | | | +--------+---------+ + + + documented as of this encounter Visit Diagnoses Not on filedocumented in this encounter"
--- OUTSIDE RECORDS SUMMARY | ~2019-07-10 | XMS | Encounter Summary ---
Demographics + + + | Address | [address] | | | [place] [address] | + + + | Home Phone | | + + + | Preferred Language | Unknown | + + + | Marital Status | Single | + + + | Gnosticism Affiliation | LDS | + + + [...] [place] | | | | | [address] | | + + + + + Care Team Providers + +------+ + | Care Director Of Promotions Name | Role | Phone | + [...] + + + | Pending | | Spine | Diagnoses | Morgan, | Candice, | | Review | | | CKD | Milton Forman, | Richard Castellano, | | | | | (chronic | PA-C [address] | [address] | | | | | kidney | [address] | [address] | | | | | disease), | [address] | [address] | | | | | stage III | [place] | [place], [place] | | | | | (HCC) | [address] | [address] | | | | | Malignant | Phone: | Phone: | | | | | neoplasm of | [phone] | [phone] | | | | | colon, | Fax: | Fax: | | | | | unspecified | [phone] | [phone] | | | | | part of [...] + + + + Physical Therapy (Routine) + +--------+ + + + + | Status | Reason | Specialty | Diagnoses / | Referred By | Referred To | | | | | Procedures | Contact | Contact | + +--------+ + + + + | New Request | | Physical | Diagnoses | Mora, | | | | | Therapy | CKD | Milton Forman, | | | | | | (chronic | PA-C [address] | | | | | | kidney | [address] | | | | | | disease), | [facility], | | | | | | stage III | [place] | | | | | | (HCC) | [address] | | | | | | Malignant | Phone: | | | | | | neoplasm of | [phone] | | | | | | colon, | Fax: | | | | | | unspecified | [phone] | | | | | | part [...] | | | REFERRAL | | | + +--------+ + + + + Diagnostic Testing (Routine) + +--------+ + + + + | Status | Reason | Specialty | Diagnoses / | Referred By | Referred To | | | | | Procedures | Contact | Contact | + +--------+ + + + + | Authorized | | Radiology | Diagnoses | Mora, | | | | | | CKD | Milton D, | | | | | | (chronic | PA-C [address] | | | | | | kidney | [address] | | | | | | disease), | [place], | | | | | | stage III | [place] | | | | | | (HCC) | [address] | | | | | | Malignant | Phone: | | | | | | neoplasm of | [phone] | | | | | | colon, | Fax: | | | | | | unspecified | [phone] | | | | | | part [...] + + + | Authorized | | Radiology | Diagnoses | Mora, | | | | | | CKD | Milton D, | | | | | | (chronic | PA-C [address] | | | | | | kidney | [address] | | | | | | disease), | [place], | | | | | | stage III | [place] | | | | | | (HCC) | [address] | | | | | | Malignant | Phone: | | | | | | neoplasm of | [phone] | | | | | | colon, | Fax: | | | | | | unspecified | [phone] | | | | | | part of | | | | | | | colon ([facility]) | | | | | | | [...] | | | | | Polyneuropat | [facility] | [address] | | | | | hy, | PHYSICIAN | [address]rij[address] | | | | | unspecified | MED GROUP | [place], [place] | | | | | | [address] | [address] | | | | | Radiculopath | [address] | Phone: | | | | | y, lumbar | [place] | [phone] | | | | | region Pain | [place], [place] | Fax: | | | | | in left leg | [address] | [phone] | | | | | | Phone: | | | | | | Paresthesia | [phone] | | | | | | of skin | Fax: | | | | | | Anesthesia | [phone] | | | | | | of [...] | Office | [facility] | Milton Mora Dasia, | Foot drop, bilateral | | 2019 | Visit | [facility] [address] | [place] [address] | (Primary Dx); CKD | | | | Ave Mailcode: | Ave [facility] [place] | (chronic kidney | | | | Center for [facility] | [address] | disease), stage III | | | | and Healing, | [phone] | ([facility]); Malignant | | | | Building 1 | | neoplasm of colon, | | | | [place], [place] | | unspecified part of | | | | [address] | | colon ([facility]); Ataxia; | | | | [phone] | | Lumbar | | | | [...] since 2016 is stable. weakness in right manager lighting improved mildly with CTR and ulnar surgery in 2018. Persistent left manager lighting weakness, difficulty with fine motor mov ements [...] questionna sarah that will be scanned into [employer] Current medication list: Current Outpatient Medications Medication [...] pain medication by PCP -Will set up [facility] Spine Surgeon appointment, need MRIs complete prior to appointment and sharif lebron is aware of poor prognosis of chronic neurological deficits and that he is a poor surg ical candidate. I spent at least 45 minutes kycr-kw-gtxn with the patient. I spent more than 50% of this vi sit in coordination of care and counseling in which we discussed diagnosis, treatment, imagi ng studies and follow-up. Milton Mora PA-C [facility] [address] [place] [address] Valentine Mailcode: [place] [address] [facility] OPEN NOTE [[id number]] P DTdocumented in this encounter Plan of Treatment +--------+---------+ + + + | Date | Type | Specialty | Care Team | Description | +--------+---------+ + + + | 09/10/ | Office | Orthopedics | Richard Harvey, | | | 2019 | Visit | | [address] | | | | | | [address] | | | | | | [place], [place] | | | | | | [address] | | | | | | [phone] | | | | | | | [...]
--- OUTSIDE RECORDS SUMMARY | ~2019-07-10 | XMS | Encounter Summary ---
Demographics + + + | Address | [address] | | | [place] [address] | + + + | Home Phone [...] [place] | | | | | [address] | | + + + + + Care Team Providers + +------+ + | Care Tree Deadener Name | Role | Phone | + [...] | (Primary Dx); | | | | [facility] | [facility] [address] | Essential | | | | [address] | [place], [place] | hypertension; | | | | Mail Code: OC8PM | [address] | Congestive heart | | | | [facility] | [phone] | failure, unspecified | | | | and Healing, | | HF chronicity, | | | | Building 2 | | unspecified heart | | | | [place], [place] | | failure type (HCC); | | | | [address] | | Subclinical | | | | [phone] | | hypothyroidism; | | | | [...] sit, stand or walk. Surgery check-in location: [address], 1st Floor [facility] Surgery Check in Time: The Preoperative Medicine [...] ch as Uber/Lyft), or public transportation. An Uber/Lyft/bung driver does not count as the responsible [...] it is after office hours, call the [facility] boring machine operator double end at [phone] and ask them to page him or [...] Proposed Procedure/Date: Colonoscopy/EGD 04/14/19 Proposed Procedure Location: [facility] HISTORY OF PRESENT ILLNESS: Aaron Latham is a 58 y.o. male here for preoperative evaluati on of medical problems in anticipation of the above procedure. Pt has dx of colon cancer. He has a history of sigmoid colon cancer diagnosed on Colonoscopy in June 2017 after pre senting for bloody stool. He underwent LAR and hernia repair 08/[address] Bolwes. He the n underwent surveillance colonoscopy this [...] EKG: Personally reviewed Outside records reviewed from [facility] and "media" tab. Findings pertinent to [...] contribute to this patient's care. [place] Reynolds [facility] PB PREOPERATIVE MEDICINE CLINIC AT [address] [address] I spent time counseling the [...] Rd | | | | | | [place], [place] | | | | | | [address] | | | | | | [phone] | | | | | | | | +--------+---------+ + + + documented as of this encounter Procedures + +--------+ + + + | Procedure Name | Priori | Date/Time | Associated Diagnosis | Comments | | | ty | | | | + +--------+ + + + | NE COLLECTION VENOUS | Routin | 03/30/2019 | [...] | | | LABORATORY | | | ITALIAN | | | SERVICES, | | | [...] MDRD equation recommended by the National | ARSU | | Kidney Disease Education Program. Estimated [...] | + + + + + | [facility] | [address] | [place] [address] | | | SERVICES, CORE | NIKKI [...] + + + | ECG | Prolonged NE interval | | [facility] DEPT | | [...] DEPT OF | [address] | [place], [place] | | | CARDIOLOGY | [address] | [address] | | + + + + + [...]
--- OUTSIDE RECORDS SUMMARY | ~2019-07-10 | XMS | Encounter Summary ---
Demographics + + + | Address | [address] | | | [place] [address] | + + + | Home Phone | | + + + | Preferred Language | Unknown | + + + | Marital Status | Single | + + + | Mandaeism Affiliation | 1077 | + + + | Race | Unknown | + + + | Ethnic Group | Unknown | + + + Author + + + | Author | [facility] | | | and [place] | + + + | Organization | [facility] | | [...] Team Providers + +------+ + | Care Nutter Up Name | Role | Phone | + +------+ + | Sarha Carroll MD | PCP | | + [...] | | | | | hy, | [address] | [address] | | | | | unspecified | [place], | [place] | | | | | Elevated | [place] [address] | [address] | | | | | C-reactive | Phone: | Phone: | | | | | protein | [phone] | [phone] | | | | | (CRP) Other | Fax: | Fax: | | | | | specified | [phone] | [phone] | | | | | abnormal | [...] | | | | [address] | [place] [address] | Dx) | | | | [address] | [phone] | | | | | [phone] | | | +--------+---------+ + + + [...] encounter Patient Instructions Patient Instructions Carmen Bailey Scrap Separator - 06/10/2019 10:20 AM PDTWe hope t hat you have experienced exceptional care today and that you found our service to be courteo us and helpful. If you have any questions or need medication refills you can send us a message/request u One [place] or call our office at [phone]. To reach Carmen CARROLL-C type extension [phone] To reach Paddy WY-C type extension [phone] If you are unable to reach a [...] can also look at your results on Ki[employer]. If you are experiencing an emergency, please [...] Has been seeing Dr. Malhotra neurologist in [place] which did a nerve conduction study which [...] SEDRATE Imaging: Laboratory results were reviewed in [facility] as well as chart notes and imaging [...] | | | | | [place] [address] | | | | | | [phone] | | | | | | | | +--------+---------+ + + + | 12/02/ | Office | Cardiology | Lorraine Clifton DO | | | 2019 | Visit | | [address] | | | | | | [place] | | | | | | [address] | | | | | | | | +--------+---------+ + + + | 12/13/ | Office | Nephrology | Jewel Ulloa MD | | | 2019 | Visit | | [address] [facility] | | | | | | [address] | | | | | | [address] | | | | | | | | +--------+---------+ + + + documented as of this encounter Visit Diagnoses + + | Diagnosis | + + | Positive NICKIE (antinuclear antibody) - Primary Other and unspecified nonspecific | | immunological findings | + + documented in this encounter
--- OUTSIDE RECORDS SUMMARY | ~2019-07-10 | XMS | Encounter Summary ---
Demographics + + + | Address | [address] | | | [place] [address] | + + + | Home Phone | | + + + | Preferred Language | Unknown | + + + | Marital Status | Single | + + + | Rastafari Affiliation | 1077 | + + + | Race | Unknown | + + + | Ethnic Group | Unknown | + + + Author + + + | Author | [facility] | | | and [place] | + + + | Organization | [facility] | | | [...] Team Providers + +------+ + | Care Machine Operator Hop Worker Name | Role | Phone | [...] | PHYSIATRY [address] | [address] | | | | | [address] | [place] | | | | | [place] [address] | [place] [address] | | | | | [phone] | | | +--------+ + + + [...] [address] | | | | | | [address] | | | | | | [place] [address] | | | | | | [phone] | | | | | | | | +--------+---------+ + + + | 12/02/ | Office | Cardiology | Lorraine Clifton DO | | | 2019 | Visit | | [address] | | | | | | [place] | | | | | | [address] | | | | | | | | +--------+---------+ + + + | 12/13/ | Office | Nephrology | Jewel Ulloa MD | | | 2020 | Visit | | [address] [facility] | | | | | | [address] | | | | | | [address] | | | | | | | | +--------+---------+ + + + documented as of this encounter Visit Diagnoses Not on filedocumented in this encounter"
--- OUTSIDE RECORDS SUMMARY | ~2019-07-10 | XMS | Encounter Summary ---
Demographics + + + | Address | [address] | | | [place] [address] | + + + | Home Phone [...] + + + | Author | [facility] | | | and [place] | + + + | Organization | [facility] | | [...] Team Providers + +------+ + | Care Community Marketing Coordinator Name | Role | Phone | [...] | | | (HCC) [place] | [place] [address] | [address] Phone: | | | | | nephrec | Phone: | [phone] | | | | | 06/11, BMP | [phone] | Fax: | | | | | prior | Fax: | [phone] | | | | | Procedures | [phone] | | | | | | [place] POST-OP | | | | | | [...] | | | | [place] | [address] | | | | | [address] | | | | | | [phone] | | | +--------+---------+ + + + [...] Ag MD - 07/17/2018 10:20 AM PST [facility] OFFICE NOTE Primary Care Physician: Sarah [...] profoundly dehydrated and admitted I VF in [place]. Pathology report: FINAL DIAGNOSIS: A. Lymph nodes, [...] FLEXIBLE SIGMOIDOSCOPY; Surgeon: Mehul Bowles MD; Location: [facility] MAIN OR COLONOSCOPY 05/22/2017 FINGER SURGERY Right 1974 AMPUTATION 5th finger TONSILLECTOMY 1969 TOTAL NEPHRECTOMY Left 06/11/2018 Procedure: LEFT LAPAROSCOPIC NEPHRECTOMY WITH NODE DISSECTION AND LAPAROSCOPIC LYSIS OF AD HESIONS; Surgeon: Patrice Cross MD; Location: [facility] MAIN OR MEDICATIONS Current Outpatient Prescriptions [...] 07/17/2018 at 10:53 CC: Sarah Gallegos MD [address] [facility] [place] [address] [facility] Plan of Treatment +--------+---------+ + + + | Date | Type | Specialty | Care Team | Description | +--------+---------+ + + + | 07/13/ | Office | Cardiology | Ileana Henson | | | 2018 | Visit | | [address] | | | | | | [address] | | | | | | [facility] [place] [address] | | | | | | [phone] | | | | | | | | +--------+---------+ + + + | 12/02/ | Office | Cardiology | Lorraine Clifton DO | | | 2019 | Visit | | [address] | | | | | | [place] | | | | | | [address] | | | | | | | | +--------+---------+ + + + | 12/13/ | Office | Nephrology | Jewel Ulloa MD | | | 2019 | Visit | | [address] [facility] | | | | | | [address] | | | | | | [address] | | | | | | | | +--------+---------+ + + + documented as of this encounter Visit Diagnoses + + | Diagnosis | + + | 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
--- OUTSIDE RECORDS SUMMARY | ~2019-07-10 | XMS | Encounter Summary ---
Demographics + + + | Address | [address] | | | [place] [address] | + + + | Home Phone [...] + + + | Author | [facility] | + + + | Organization | [facility] | + + + | Address | Unknown | + + + | Phone | Unavailable | + + + Support + + + + + | Name | Relationship | Address | Phone | + + + + + | Toby Latham | ANNA | [address] | | | | | [place] | | | | | [address] | | + + + + + Care Team Providers + +------+ + | Care Steward/Stewardess Bath Name | Role | Phone | + [...] Encounter | Procedural Unit | MD Steven [address] | | | | | ([facility]) at [facility] [address] | | | | | [address] | [place], [place] | | | | | Mailcode: [place] | [address] | | | | | for [facility] and | [phone] | | | | | [facility] 2 | | | | | | [place], [place] | | | | | | [address] | | | | | | [phone] | | | +--------+ + + + [...] Call the endoscopy department toll free ext. [phone] or After business hours or on weekends and holidays call the Hospital [facility] Specialist toll free 1- [phone] Ext. [phone] or and have the GI doctor member of congress paged. The provider who performed your procedure [...] 11:54 AM PDT PRE PROCEDURE NOTE: MR# [id number] Subjective: Aaron Latham is a 59 y.o. [...] | 2019 | Visit | | [address] [facility] | | | | | | [facility] | | | | | | [place], [place] | | | | | | [address] | | | | | | [phone] | | | | | | | [...] 0.9 - 1.2 INR | [facility], | | | TIME | | [...] + + | [facility] | [address] | [place] [address] | | | OF CARE TESTS | | | | + + + + + COLONOSCOPY (04/14/2019 11:50 AM PDT) + + | Specimen | + + | | + + + + + | Narrative | Performed At | + + + | MRN: | [facility] | | [id number] Date: 04/14/2019Patient Name: Aaron Justin #: | ENDOSCOPY | | [id number] of : 1960SN: [id number] Type: | | | AmbulatoryRoom: Endo 5Procedure: [...] RN (Nurse), NGHIA YBARRA | | | (Freight Elevator Erector), GENECRE BASCON | | | (Freight Elevator Erector)Referring MD: JACK TINOCO JR, | | | [...] the procedure. The [employer] | | | [id number] Colonoscope #[id number] was introduced | | | through the [...] questions, please contact the | | | naphthol soaping machine operator. - Stop | | | anticoagulation (coumadin) [...]
--- OUTSIDE RECORDS SUMMARY | ~2019-07-10 | XMS | Encounter Summary ---
Demographics + + + | Address | [address] | | | [place] [address] | + + + | Home Phone [...] Team Providers + +------+ + | Care Licensed Certified Orthotist Name | Role | Phone | + [...] Terry SMITH | | | | | [place] [address] | [place] [address] | | | | | [phone] | | | +--------+ + + + [...] | | | | | | [place] [address] | | | | | | [phone] | | | | | | | | +--------+---------+ + + + | 12/02/ | Office | Cardiology | Lorraine Clifton DO | | | 2019 | Visit | | [address] | | | | | | [place] | | | | | | [address] | | | | | | | | +--------+---------+ + + + | 12/13/ | Office | Nephrology | Jewel Ulloa MD | | | 2020 | Visit | | [address] [facility] | | | | | | [address] [place] | | | | | | [address] | | | | | | | | +--------+---------+ + + + documented as of this encounter Visit Diagnoses Not on filedocumented in this encounter"
--- OUTSIDE RECORDS SUMMARY | ~2019-07-10 | XMS | Encounter Summary ---
Demographics + + + | Address | [address] | | | [place] [address] | + + + | Home Phone [...] Author + + + | Author | [facility] | + + + | Organization | [facility] | + + + | Address | Unknown | + + + | Phone | Unavailable | + + + Support + + + + + | Name | Relationship | Address | Phone | + + + + + | Toby Latham | ANNA | [address] | | | | | [place] | | | | | [address] | | + + + + + Care Team Providers + +------+ + | Care Manager Marketing Sales Name | Role | Phone | + +------+ + PCP | Unavailable | + +------+ + Encounter Details +--------+ + + + + | Date | Type | Department | Care Team | Description | +--------+ + + + + | 01/14/ | Abstract | Digestive Health | Clinic, Surgery | | | 2019 | | [place] [facility] [address] | | | | | | [address] | | | | | | Mailcode: [place] | | | | | | [facility] | | | | | | Healing, Building [address] | | | | | | [place], [place] | | | | | | [address] | | | | | | [phone] | | | +--------+ + + + [...] | | 2019 | Visit | | [address] | | | | | | [address] | | | | | | [place], [place] | | | | | | [address] | | | | | | [phone] | | | | | | | | +--------+---------+ + + + documented as of this encounter Visit Diagnoses Not on filedocumented in this encounter"
--- OUTSIDE RECORDS SUMMARY | ~2019-07-10 | XMS | Encounter Summary ---
Demographics + + + | Address | [address] | | | [place] [address] | + + + | Home Phone [...] Team Providers + +------+ + | Care Farm Products Shipper Name | Role | Phone | + +------+ + | Sarah Carroll MD | PCP | | + +------+ + Encounter Details +--------+ + + + + | Date | Type | Department | Care Team | Description | +--------+ + + + + | 12/18/ | Orders Only | [facility] | Conversion | | | 2019 | | NEPHROLOGY [place] | Transaction, | | | | | [address] | Provider Unknown | | | | | [address] [place], [place] | [phone] | | | | | [address] | (Fax) | | | | | [phone] | | | +--------+ + + + [...] | | | | | [place] [address] | | | | | | [phone] | | | | | | | | +--------+---------+ + + + | 12/02/ | Office | Cardiology | Lorraine Clifton DO | | | 2019 | Visit | | [address] | | | | | | [place] | | | | | | [address] | | | | | | | | +--------+---------+ + + + | 12/13/ | Office | Nephrology | Jewel Ulloa MD | | | 2019 | Visit | | [address] [facility] | | | | | | [facility] | | | | | | [address] | | | | | | | [...] | + +---------+ + + Vitamin B-12 (12/18/2018 10:55 AM PDT) + + + [...]
--- OUTSIDE RECORDS SUMMARY | ~2019-07-10 | XMS | Encounter Summary ---
Demographics + + + | Address | [address] | | | [place] [address] | + + + | Home Phone [...] Team Providers + +------+ + | Care Ply Bander Name | Role | Phone | + +------+ + | Sarah Carroll MD | PCP | | + +------+ + Encounter Details +--------+ + + + + | Date | Type | Department | Care Team | Description | +--------+ + + + + | 01/30/ | Telephone | [place] [facility] | Patrice Cross MD | | | 2018 | | [address] | [address] | | | | | [address] | [address] [address] | | | | | [place], [place] | [address] | | | | | [address] | | | | | | [phone] | | | +--------+ + + + [...] | | | | | [place] [address] | | | | | | [phone] | | | | | | | | +--------+---------+ + + + | 12/02/ | Office | Cardiology | Lorraine Clifton DO | | | 2019 | Visit | | [address] | | | | | | [place] | | | | | | [address] | | | | | | | | +--------+---------+ + + + | 12/13/ | Office | Nephrology | Jewel Ulloa MD | | | 2020 | Visit | | [address] [facility] | | | | | | [address] [place] | | | | | | [address] | | | | | | | | +--------+---------+ + + + documented as of this encounter Visit Diagnoses Not on filedocumented in this encounter"
--- OUTSIDE RECORDS SUMMARY | ~2019-07-10 | XMS | Encounter Summary ---
Demographics + + + | Address | [address] | | | [place] [address] | + + + | Home Phone [...] [place] | | | | | [address] | | + + + + + Care Team Providers + +------+ + | Care Financial Coach Name | Role | Phone | + +------+ + | Sarah Carroll MD | PCP | | + +------+ + Encounter Details +--------+ + + + + | Date | Type | Department | Care Team | Description | +--------+ + + + + | 04/14/ | Transcribe | [facility] | Transcribe | | | 2019 | Orders | [address] | Encounter, Provider, | | | | | [place] Mailcode: | [address] | | | | | [address] [facility] | [place] [address] | | | | | Health and Healing, | | | | | | [address] | | | | | | [place], [place] | | | | | | [address] | | | | | | [phone] | | | +--------+ + + + [...] | | 2019 | Visit | | [address] | | | | | | [address] | | | | | | [place], [place] | | | | | | [address] | | | | | | [phone] | | | | | | | | +--------+---------+ + + + documented as of this encounter Results COLONOSCOPY (07/01/2019 10:08 AM PST) + + | Specimen | + + | | + + + + + | Narrative | Performed At | + + + | MRN: | [facility] | | [id number] Date: 07/01/2019Patient Name: Aaron Justin #: | ENDOSCOPY | | [id number] of : 1960SN: [id number] Type: | | | AmbulatoryRoom: Endo 5Procedure: | | | ColonoscopyIndications: Therapeutic procedure for known | | | colon polypPatient Profile: This is a 59 year old male. Refer to | | | note in patient chart for | | | documentation of history and physical.Providers: WILLA | | | MD PEDRO (Doctor), CATARINA SOLIMAN RN | | | (Nurse), NGHIA YBARRA (Caustic Liquor Maker)Referring MD: WILLA | | | PEDRO MDRequesting [...] the procedure. The [employer] | | | [id number] Colonoscope #[id number] was introduced | | | through the [...] | | any questions, please contact the industrial spraypainter. | | | - Clear liquid diet [...]
--- OUTSIDE RECORDS SUMMARY | ~2019-07-10 | XMS | Encounter Summary ---
Demographics + + + | Address | [address] | | | [place] [address] | + + + | Home Phone [...] Team Providers + +------+ + | Care Chuck Tender Name | Role | Phone | + [...] 2019 | | [address] | Fibrous Wallboard Inspector | (antinuclear | | | | [place] | | antibody); Pain in | | | | [address] | | joint, multiple | | | | [phone] | | sites | +--------+ + + [...] [place] | | | | | | [facility] [address] | | | | | | [phone] | | | | | | | | +--------+---------+ + + + | 12/02/ | Office | Cardiology | Lorraine Clifton DO | | | 2019 | Visit | | [address] | | | | | | [place] | | | | | | [address] | | | | | | | | +--------+---------+ + + + | 12/13/ | Office | Nephrology | Jewel Ulloa MD | | | 2019 | Visit | | [address] [facility] | | | | | | [address] [place] | | | | | | [address] | | | | | | | [...] - 1.030 | REFERENCE | | | [place], | | | LAB | | | [...] REFERENCE | | | | performed at [facility];[address] | | LAB | | | | [place] | | [facility] | | | | [address];[place] [address] | | LABORATORY | | + + + + + + + + | Specimen | + + | Urine | + + + + + + + | Performing | Address | City/State/Zipcode | Phone Number | | Organization | | | | + + + + + | REFERENCE LAB | [address] [place] [address] | [place] [address] | [phone] | | [facility] | Bl[address] | | | | LABORATORY | | | | + + + + + | REFERENCE LAB | [address] [facility] | [place] [address] | | | [facility] | [address] | | | | LABORATORY | | [...] LAB | | | | performed at [facility];[address] | | [facility] | | | | [place] | | LABORATORY | | | | Blvd;[place] [address] | | | | | | | | | | + + + + + + + + | Specimen | + + | | + + + + + + + | Performing | Address | City/State/Zipcode | Phone Number | | Organization | | | | + + + + + | REFERENCE LAB | [address] [place] [address] | [place] [address] | [phone] | | [facility] | Blvd[address] | | | | LABORATORY | | | | + + + + + | REFERENCE LAB | [address] [place] [address] | [place] [address] | | | [facility] | Blvd[address] | | | | LABORATORY | | [...] | | | urine | performed at [facility];[address] | | [facility] | | | | [facility] | | LABORATORY | | | | Blvd;[place] [address] | | | | | | | | | | + + + + + + + + | Specimen | + + | | + + + + + + + | Performing | Address | City/State/Zipcode | Phone Number | | Organization | | | | + + + + + | REFERENCE LAB | [address] [place] [address] | [place] [address] | [phone] | | [facility] | Blvd[address] | | | | LABORATORY | | | | + + + + + | REFERENCE LAB | [address] [place] [address] | [place] [address] | | | [facility] | Blvd[address] | | | | LABORATORY | | [...] | | | RATIO,URINE | performed at [facility];[address] | | LAB | | | | [place] | | [facility] | | | | Bl[address];[place] [address] | | LABORATORY | | + + + + + + + + | Specimen | + + | Urine | + + + + + + + | Performing | Address | City/State/Zipcode | Phone Number | | Organization | | | | + + + + + | REFERENCE LAB | [address] [facility] | [place] [address] | [phone] | | [facility] | Bl[address] | | | | LABORATORY | | | | + + + + + | REFERENCE LAB | [address] [facility] | [place] [address] | | | [facility] | Blvd[address] | | | | LABORATORY | | [...] REFERENCE | | | | performed at [facility];[address] | | LAB | | | | [place] | | [facility] | | | | [address];[place] [address] | | LABORATORY | | + + + + + + + + | Specimen | + + | Blood | + + + + + + + | Performing | Address | City/State/Zipcode | Phone Number | | Organization | | | | + + + + + | REFERENCE LAB | [address] [place] [address] | [place] [address] | [phone] | | [facility] | Blvd[address] | | | | LABORATORY | | | | + + + + + | REFERENCE LAB | [address] [place] [address] | [place] [address] | | | [facility] | Blvd[address] | | | | LABORATORY | | [...] | | | Absolute | performed at [facility];[address] | K/uL | LAB | | | | [place] | | [facility] | | | | Bl[address];[place] [address] | | LABORATORY | | + + + + + + + + | Specimen | + + | Blood | + + + + + + + | Performing | Address | City/State/Zipcode | Phone Number | | Organization | | | | + + + + + | REFERENCE LAB | [address] [place] [address] | [place] [address] | [phone] | | [facility] | Blvd[address] | | | | LABORATORY | | | | + + + + + | REFERENCE LAB | [address] [place] [address] | [place] [address] | | | [facility] | Blvd[address] | | | | LABORATORY | | [...] | | | | | performed at [facility];[address] | | | | | | [facility] | | | | | | vd;[place] [address] | | | | | | | | | | + + + + + + + + | Specimen | + + | Blood | + + + + + + + | Performing | Address | City/State/Zipcode | Phone Number | | Organization | | | | + + + + + | REFERENCE LAB | [address] [place] [address] | [place] [address] | [phone] | | [facility] | Blvd[address] | | | | LABORATORY | | | | + + + + + | REFERENCE LAB | [address] [place] [address] | [place] [address] | | | [facility] | Blvd. | | | | LABORATORY | | [...] REFERENCE | | | | performed at [facility];[address] | | LAB | | | | [place] | | [facility] | | | | Blvd;[place] [address] | | LABORATORY | | + + + + + + + + | Specimen | + + | Blood | + + + + + + + | Performing | Address | City/State/Zipcode | Phone Number | | Organization | | | | + + + + + | REFERENCE LAB | [address] [facility] | [place] [address] | [phone] | | [facility] | Blvd[address] | | | | LABORATORY | | | | + + + + + | REFERENCE LAB | [address] [facility] | [place] [address] | | | [facility] | Blvd[address] | | | | LABORATORY | | [...] REFERENCE | | | | performed at [facility];[address] | | LAB | | | | [place] | | [facility] | | | | Bl[address];[place] [address] | | LABORATORY | | + + + + + + + + | Specimen | + + | Blood | + + + + + + + | Performing | Address | City/State/Zipcode | Phone Number | | Organization | | | | + + + + + | REFERENCE LAB | [address] [place] [address] | [place] [address] | [phone] | | [facility] | Blvd[address] | | | | LABORATORY | | | | + + + + + | REFERENCE LAB | [address] [place] [address] | [place] [address] | | | [facility] | Blvd[address] | | | | LABORATORY | | | | + + + + + LIS FU (05/04/2019 9:22 AM PDT) + + + [...] | | | | | performed at [facility], [address] | | | | | | [facility] | | | | | | [place] [address] | | | | + + + + + + + + | Specimen | + + | Blood | + + + + + + + | Performing | Address | City/State/Zipcode | Phone Number | | Organization | | | | + + + + + | REFERENCE LAB | [address] [facility] | [place] [address] | [phone] | | [facility] | Blvd[address] | | | | LABORATORY | | | | + + + + + | REFERENCE LAB | [address] [facility] | [place] [address] | | | [facility] | Blvd. | | | | LABORATORY | | [...] | | | | | | at [facility], [address] | | | | | | [place] | | | | | | [address] | | | | + + + + + + + + | Specimen | + + | Blood | + + + + + + + | Performing | Address | City/State/Zipcode | Phone Number | | Organization | | | | + + + + + | REFERENCE LAB | [address] [place] [address] | [place] [address] | [phone] | | [facility] | Blvd[address] | | | | LABORATORY | | | | + + + + + | REFERENCE LAB | [address] [place] [address] | [place] [address] | | | [facility] | Blvd. | | | | LABORATORY | | [...] criterion | | | | | | ([employer] | | | | | | [employer]umatology) forthe | | | | | | diagnosis of systemic | | | | | | lupus erythematosus | | | | | | (SLE). DsDNAantibodies | | | | | | detected by Crithidia | | | | | | method [...] | | | | | validated by [facility] | | | | | | [facility], [...] | | | | | | Inc.Effective November | | | | | | 2018 dsDNA (nDNA) | | | | | | Scrn by Crithidia will | | | | | | be made non-orderable. | | | | | | [facility] offers [id number] | | | | | | dsDNA Crithidia luciliae | | | | | | IFA. For further | | | | | | information, please | | | | | | contact your local | | | | | | [facility] | | | | | | [employer] Senior Sergeant.Testing | | | | | | performed at [facility] | | | | | | [facility], [address] | | | | | | [place], [facility] | | | | | | [address],[place], [place] | | | | | | [phone]. | | | | + + + + + + + + | Specimen | + + | Blood | + + + + + + + | Performing | Address | City/State/Zipcode | Phone Number | | Organization | | | | + + + + + | REFERENCE LAB | [address] [facility] | [place] [address] | [phone] | | [facility] | Blvd[address] | | | | LABORATORY | | | | + + + + + | REFERENCE LAB | [address] [facility] | [place] [address] | | | [facility] | Blvd[address] | | | | LABORATORY | | [...] | | | COMPLEMENT | performed at [facility];[address] | | LAB | | | | [place] | | [facility] | | | | [address]vd;[place] [address] | | LABORATORY | | + + + + + + + + | Specimen | + + | Blood | + + + + + + + | Performing | Address | City/State/Zipcode | Phone Number | | Organization | | | | + + + + + | REFERENCE LAB | [address] [facility] | [place] [address] | [phone] | | [facility] | Blvd[address] | | | | LABORATORY | | | | + + + + + | REFERENCE LAB | [address] [facility] | [place] [address] | | | [facility] | Blvd. | | | | LABORATORY | | [...] | | | Qual | performed at [facility], [address] | | LAB | | | | [address] [facility] | | [facility] | | | | [place] [address] | | LABORATORY | | + + [...] | | | | | with both [place]-3 and | | | | | | [...] | | 3 Antibody | performed by [facility], | | LAB | | | | [address], | | [facility] | | | | [facility] [address] | | LABORATORY | | + + + + + + + + | Specimen | + + | Blood | + + + + + + + | Performing | Address | City/State/Zipcode | Phone Number | | Organization | | | | + + + + + | REFERENCE LAB | [address] [place] [address] | [place] [address] | [phone] | | [facility] | Blvd[address] | | | | LABORATORY | | | | + + + + + | REFERENCE LAB | [address] [place] [address] | [place] [address] | | | [facility] | Blvd[address] | | | | LABORATORY | | | | + + + + + documented in this encounter Visit Diagnoses + + | Diagnosis | + + | Positive NICKIE (antinuclear antibody) Other and unspecified nonspecific immunological | | findings | + + | Pain in joint, multiple sites | + + documented in this encounter"
--- OUTSIDE RECORDS SUMMARY | ~2019-07-10 | XMS | Encounter Summary ---
Demographics + + + | Address | [address] | | | [place] [address] | + + + | Home Phone [...] [place] | | | | | [address] | | + + + + + Care Team Providers + +------+ + | Care Hotel Dining Room Cashier Name | Role | Phone | + +------+ + | Sarah Carroll MD | PCP | | + +------+ + Reason for Referral PROC - Dept/Practice Procedure (Urgent) + +--------+ + + + + | Status | Reason | Specialty | Diagnoses / | Referred By | Referred To | | | | | Procedures | Contact | Contact | + +--------+ + + + + | Referred | | Gastroenterol | Diagnoses | | Gas Endo | | | | ogy | Polyp of | [place], | [address] | | | | | colon, | MD Charles | [address] | | | | | unspecified | [address] | Rosario Robles | | | | | part of | [address] | Mailcode: | | | | | colon, | Rd | [address] | | | | | unspecified | [place], [place] | [place] | | | | | type | [address] | [address] | | | | | Procedures | Phone: | [place], | | | | | CONSULT TO | [phone] | [place] [address] | | | | | GI PROCEDURE | Fax: | Phone: | | | | | UNIT: | [phone] | [phone] | | | | | COLONOSCOPY | | Fax: | | | | | | | [phone] | + +--------+ + + + + Encounter Details +--------+ + + + + | Date | Type | Department | Care Team | Description | +--------+ + + + + | 07/01/ | [facility] [place] | Digestive Health | [place], | Polyp of colon, | | 2018 | | [place] [facility] [address] | MD [address] | unspecified part of | | | | [address] | [address] | colon, unspecified | | | | Mailcode: Center | [facility] [place] | type (Primary Dx) | | | | for Health and | [address] | | | | | [facility] | [phone] | | | | | [place], [place] | | | | | | [address] | | | | | | [phone] | | | +--------+ + + + [...] | | 2019 | Visit | | [address] | | | | | | [address] | | | | | | [place], [place] | | | | | | [address] | | | | | | [phone] | | | | | | | | +--------+---------+ + + + documented as of this encounter Visit Diagnoses + + | Diagnosis | + + | Polyp of colon, unspecified part of colon, unspecified type - Primary | + + documented in this encounter"
--- OUTSIDE RECORDS SUMMARY | ~2019-07-10 | XMS | Encounter Summary ---
Demographics + + + | Address | [address] | | | [place] [address] | + + + | Home Phone | | + + + | Preferred Language | Unknown | + + + | Marital Status | Single | + + + | Holiness Affiliation | 1077 | + + + | Race | Unknown | + + + | Ethnic Group | Unknown | + + + Author + + + | Author | [facility] | | | and [place] | + + + | Organization | [facility] | | | [...] Providers + +------+ + | Care Senior Linux Administrator Name | Role | Phone | + [...] | | | | Peritoneal | | [address] Phone: | | | | | adhesion | | [phone] | | | | | Procedures | | Fax: | | | | | [place] | | [phone] | | | | | BOWEL | | | | | | | ADHESION,ENT | | | | | | | EROLYSIS [place] | | | | | | | [...] [address] | [place] [address] | | | | | [place] | [phone] | | | | | [address] | | | | | | [phone] | Leyla Lepe, | | | | | | ASSEMBLY LOADER [address] | | | | | | [place] | | | | | | [address] | | | | | | | | +--------+ + + + + Anesthesia Record + + + + + | Procedure Name | Responsible | Anesthesia Start | Anesthesia Stop Time | | | Anesthesiologist | Time | | + + + + + | LEFT LAPAROSCOPIC | Feliberto Beltran MD | 06/11/18 1312 | 06/11/18 6679 | | NEPHRECTOMY WITH | | | [...] +----+---+ + + | | 1 | [place] | | | | 3 | 43-degrees [...] +----+---+ + + | | 1 | [place] off | | | | 5 | [...] 06/12/18 0722 by | | cherelle | mulq-lxa-wmrkjb catheter system; | Myla Vega RN | [...] | | | procedure documentation); Mask | ASSEMBLY LOADER | ASSEMBLY LOADER | | | Ventilation: EZ w/OA; Airway [...] | Forearm; 18 gauge; 06/16/18; 1237 | ASSEMBLY LOADER | | +--------+ + + + | [...] [address] | | | | | | [place] [address] | | | | | | [phone] | | | | | | | | +--------+---------+ + + + | 12/02/ | Office | Cardiology | Lorraine Clifton DO | | | 2019 | Visit | | [address] | | | | | | [place] | | | | | | [address] | | | | | | | | +--------+---------+ + + + | 12/13/ | Office | Nephrology | Jewel Ulloa MD | | | 2019 | Visit | | [address] | | | | | | [address] [place] | | | | | | [address] | | | | | | | [...] provider: KIKA | | FELIBERTOElectronically Signed by: Feliberto Beltran [...] 06/11/2018 13:40 Indication: necessitating | | | physician/ASSEMBLY LOADER skill Preparation: chlorhexidine/isopropyl alcohol | | | [...] 1:55 PM PDT Intravenous Line | | Hiwijlere04/31/2018 13:40Indication: necessitating physician/ASSEMBLY LOADER skillPreparation: | | chlorhexidine/isopropyl alcoholpatient was: under [...] | | | dressing Performed by: ALEX MCEKON Electronically Signed | | | by: Leyla Lepe CRNA ESig | | | date/time: 06/11/2018 13:52 | | + + + + + | Procedure Note | + + | Leyla Lepe CRNA - 06/11/2018 1:52 PM PDT Arterial Line Vzxwxxtic61/31/2018 | | 13:30Indication: continuous blood pressure monitoringPrep [...] 1:51 PM PDT Anesthesia Airway | | Gsuifhifv88/31/2018 13:24Preprocedure check: patient identified, oxygen, airway | [...]
--- OUTSIDE RECORDS SUMMARY | ~2019-07-10 | XMS | Encounter Summary ---
Demographics + + + | Address | [address] | | | [place] [address] | + + + | Home Phone [...] Providers + +------+ + | Care Director Product Development Name | Role | Phone | [...] | | | (HCC) [place] | [place] [address] | [address] Phone: | | | | | nephrec | Phone: | [phone] | | | | | 06/11, BMP | [phone] | Fax: | | | | | prior | Fax: | [phone] | | | | | Procedures | [phone] | | | | | | [place] POST-OP | | | | | | [...] | | | | [place] | [address] | | | | | [address] | | | | | | [phone] | | | +--------+---------+ + + + [...] Ag MD - 07/17/2018 10:20 AM PST [facility] OFFICE NOTE Primary Care Physician: Sarah [...] profoundly dehydrated and admitted I [facility] in [place]. Pathology report: FINAL DIAGNOSIS: A. 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 TONSILLECTOMY 1969 TOTAL NEPHRECTOMY Left 06/11/2018 Procedure: LEFT LAPAROSCOPIC NEPHRECTOMY WITH NODE DISSECTION AND LAPAROSCOPIC LYSIS OF AD HESIONS; Surgeon: Patrice Cross MD; Location: [facility] MAIN OR MEDICATIONS Current Outpatient Prescriptions [...] 07/17/2018 at 10:53 CC: Sarah Gallegos MD [address] [place] [address] [facility] Plan of Treatment +--------+---------+ + + + | Date | Type | Specialty | Care Team | Description | +--------+---------+ + + + | 07/13/ | Office | Cardiology | Ileana Henson | | | 2018 | Visit | | RUPAL [address] | | | | | | [address] | | | | | | [facility] [place] [address] | | | | | | [phone] | | | | | | | | +--------+---------+ + + + | 12/02/ | Office | Cardiology | Lorraine Clifton DO | | | 2019 | Visit | | [address] | | | | | | [place] | | | | | | [address] | | | | | | | | +--------+---------+ + + + | 12/13/ | Office | Nephrology | Jewel Ulloa MD | | | 2019 | Visit | | [address] [facility] | | | | | | [address] [place] | | | | | | [address] | | | | | | | | +--------+---------+ + + + documented as of this encounter Visit Diagnoses + + | Diagnosis | + + | 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
--- OUTSIDE RECORDS SUMMARY | ~2019-07-10 | XMS | Encounter Summary ---
Demographics + + + | Address | [address] | | | [place] [address] | + + + | Home Phone [...] Team Providers + +------+ + | Care Territory Supervisor Name | Role | Phone | [...] [address] | | | | | [place], [place] | [place] [address] | | | | | [address] | [phone] | | | | | [phone] | | | +--------+ + + + [...] | | | | | | [place] [address] | | | | | | [phone] | | | | | | | | +--------+---------+ + + + | 12/02/ | Office | Cardiology | Lorraine Clifton DO | | | 2019 | Visit | | [address] | | | | | | [place] | | | | | | [address] | | | | | | | | +--------+---------+ + + + | 12/13/ | Office | Nephrology | Jewel Ulloa MD | | | 2019 | Visit | | [address] [facility] | | | | | | [address] [place] | | | | | | [address] | | | | | | | [...] | | | hypokinesis, diastolic function abnormal, [place] visually estimates | | | LVEF 40-45%. [...] | | | hypokinesis, diastolic function abnormal, [place] visually estimates | | | LVEF 40-45%. [...] pressures of 5-10mmHg. MEASUREMENTS | | | [employer]: DBS Authenticated by: Chris Link DO Report [...] | | global hypokinesis, diastolic function abnormal, [place] visually estimates LVEF 40-45%. | | Moderate [...] venous pressures of 5-10mmHg. | | MEASUREMENTS [employer]: DBSAuthenticated by: Chris Reyes | | Date/Time: 02-16-2016 20:56:07 IMPRESSION: 1. See Dictation. A fib. 2. Moderate | | concentric LVH, mild global hypokinesis, diastolic function abnormal, [place] visually | | estimates LVEF 40-45%. Moderate [...] | |MEASUREMENTS | | | | | |[employer]: SANDOR | |Authenticated by: Chris Link DO | |Report Date/Time: 02-16-2016 20:56:07 | | | |IMPRESSION: | |1. See Dictation. A fib. 2. Moderate concentric LVH, mild global hypokinesis, diastolic fu nction abnormal, [place] visually estimates LVEF 40-45%. Moderate LAE, moderate [...]
--- OUTSIDE RECORDS SUMMARY | ~2019-07-10 | XMS | Encounter Summary ---
Demographics + + + | Address | [address] | | | [place] [address] | + + + | Home Phone [...] Team Providers + +------+ + | Care Lead Bi Developer Name | Role | Phone | [...] | bilateral | [address] | | | | n | low back | [address] | [place], | | | | | pain with | [place], | [place] [address] | | | | | bilateral | [place] [address] | Phone: | | | | | sciatica | Phone: | [phone] | | | | | Bilateral | [phone] | Fax: | | | | | foot-drop | Fax: | [phone] | | | | | Numbness of | [phone] | | | | | | both lower | | | | | | | extremities | | | | | | | Procedures | | | | | | | AR MOTOR | | | | | | | &/SENS / | | | | | | | NRV CNDJ | | | | | | | PRECONF | | | | | | | ELTRODE LIMB | | | | | | | AR NEEDLE | | | | | | | EMG EA | | | | | | | EXTREMITY | | | | | | | W/PARASPINL | | | | | | | AREA LIMITED | | | | | | | AR MOTOR | | | | | | | &/SENS - | | | | | | | NRV CNDJ | | | | | | | PRECONF | | | | | | | ELTRODE LIMB | | | | | | | AR OFFICE | | | | | | [...] PHYSIATRY [address] | MD [address] | polyneuropathy | | | | [place], | [place], [place] | (Primary Dx); | | | | [place] [address] | [address] | Chronic bilateral | | | | [phone] | | low back pain with | [...] might be different fro m the original. [facility] Physical Medicine & Rehabilitation [address] [place] [address], [address] [place] [address] Test Date: 01/12/2019 Patient Name: Aaron Latham : 1960 Physician: Riccardo Malhotra MD () MR #: [id number] Sex: Male Referring Physician: Sarah Carroll HISTORY: [...] face with Aaron Latham, over half of [facility] h was spent formulating and discussing their medical treatment plan. Thank you for allowing me to be involved in the care of your patient. If you have any quest ions or comments, please do not hesitate to call. Riccardo Malhotra MD (Jr.) Physical Medicine and Rehabilitation Cc: Sarah Carroll MD retty Schaefer RN - 01/12/2019 3:40 PM PDTA MRI [...] [address] | | | | | | [place] [address] | | | | | | [phone] | | | | | | | | +--------+---------+ + + + | 12/02/ | Office | Cardiology | Lorraine Clifton DO | | | 2019 | Visit | | [address] | | | | | | [place] | | | | | | [address] | | | | | | | | +--------+---------+ + + + | 12/13/ | Office | Nephrology | Jewel Ulloa MD | | | 2019 | Visit | | [address] | | | | | | [address] [place] | | | | | | [address] | | | | | | | [...]
--- OUTSIDE RECORDS SUMMARY | ~2019-07-10 | XMS | Encounter Summary ---
Demographics + + + | Address | [address] | | | [place] [address] | + + + | Home Phone | | + + + | Preferred Language | Unknown | + + + | Marital Status | Single | + + + | Episcopal Affiliation | LDS | + + + | Race | White | + + + | Ethnic Group | Not or | + + + Author + + + | Author | [facility] | + + + | Organization | [facility] | + + + | Address | Unknown | + + + | Phone | Unavailable | + + + Support + + + + + | Name | Relationship | Address | Phone | + + + + + | Toby Latham | ANNA | [address] | | | | | [place] | | | | | [address] | | + + + + + Care Team Providers + +------+ + | Care Gift Basket Packer Name | Role | Phone | + +------+ + PCP | Unavailable | + +------+ + Encounter Details +--------+ + + + + | Date | Type | Department | Care Team | Description | +--------+ + + + + | 01/14/ | Abstract | [facility] | Clinic, Surgery | | | 2019 | | [facility] [address] | | | | | | [address] | | | | | | Mailcode: [place] | | | | | | [facility] | | | | | | Healing, [address] | | | | | | [place], [place] | | | | | | [address] | | | | | | [phone] | | | +--------+ + + + [...] | | 2019 | Visit | | [address] | | | | | | [address] | | | | | | [place], [place] | | | | | | [address] | | | | | | [phone] | | | | | | | | +--------+---------+ + + + documented as of this encounter Visit Diagnoses Not on filedocumented in this encounter"
--- OUTSIDE RECORDS SUMMARY | ~2019-07-10 | XMS | Encounter Summary ---
Demographics + + + | Address | [address] | | | [place] [address] | + + + | Home Phone | | + + + | Preferred Language | Unknown | + + + | Marital Status | Single | + + + | Restorationist Affiliation | LDS | + + + [...] [place] | | | | | [address] | | + + + + + Care Team Providers + +------+ + | Care Architecture Department Chair Name | Role | Phone | + [...] | | 2019 | Visit | | [address] | | | | | | [address] | | | | | | [place], [place] | | | | | | [address] | | | | | | [phone] | | | | | | | | +--------+---------+ + + + documented as of this encounter Visit Diagnoses Not on filedocumented in this encounter"
--- OUTSIDE RECORDS SUMMARY | ~2019-07-10 | XMS | Encounter Summary ---
Demographics + + + | Address | [address] | | | [place] [address] | + + + | Home Phone | | + + + | Preferred Language | Unknown | + + + | Marital Status | Single | + + + | Jewish Affiliation | 1077 | + + + | Race | Unknown | + + + | Ethnic Group | Unknown | + + + Author + + + | Author | [facility] | | | and [place] | + + + | Organization | [facility] | | [...] Team Providers + +------+ + | Care Automotive Consultant Name | Role | Phone | [...] | | | | Peritoneal | | [address] Phone: | | | | | adhesion | | [phone] | | | | | Procedures | | Fax: | | | | | [place] | | [phone] | | | | | BOWEL | | | | | | | ADHESION,ENT | | | | | | | EROLYSIS [place] | | | | | | | [...] | | | | [place] | [address] | LAPAROSCOPIC LYSIS | | | | [address] | | OF ADHESIONS | | | | [phone] | | | +--------+---------+ + + + [...] might be different from t he original. [facility] UROLOGY DISCHARGE SUMMARY Patient Name: Lily [...] COUMADIN Discontinued Medications [place] Follow-Up: 1. [facility] in 1 week. Please call during business hours to set up your urology follow up appointm ent. Electronically Signed by: Patrice Cross MD, 06/16/2018 7:42 [facility] documented in this encou nter Discharge Instructions Instructions Teresita Rodgers RN - 06/16/2018Formatting of this note might be different f rom the original. [facility] DISCHARGE INSTRUCTIONS FOLLOWING LAPAROSCOPIC REMOVAL OF [...] on your remaining kidney. CONTACT INFORMATION: - [facility] Office Number: [facility] Office: [phone] [facility] Office: FOLLOWUP INFORMATION: - Dr. [...] Weakness, dizziness, or fainting Date Last Reviewed: 05/12/201619998846-8063 [employer]. [address] [place] [address]. All righ ts reserved. This information is [...] out or is dislodged Date Last Reviewed: 08/12/201619991554-7957 [employer]. [address] [place] [address], [place] [address]. All righ ts reserved. This information is not intended as a substitute for professional medical care. Always follow your healthcare professional's instructions. [facility] Patient Belongings Lily Valentin [...] Were Given To: octavio and valubles [id number] Patient Signature: Clinician/Agricultural Mechanic Signature: documented in this encounter Medications at [...] PA-C - 06/19/2018 7:[address] [facility] UROLOGY DAILY PROGRESS NOTE ID: Lily Valentin [...] Signed by: Xavier Yip PA-C, 06/19/2018 7:40 [facility] Sasha Blevins, [facility] - 06/18/2018 4:52 PM PSTSOCIAL WORK D/C PLAN: SNF ([facility]) vs home NEXT STEPS: [facility]F in [place], [place] has accepted pt pending insurance authorization. [...] d/c to a SNF. SW called to [facility] and they are yash [place]. SW spoke to [facility], Director at [facility]. She stated that pt is not appropr iate for home health. She recommends SNF. She also stated that pt's insurance is difficult t o work with and only authorized 1 home health visit and it took 10 plus days to get auth'ed for any other home health visits. ASSESSMENT/CHART REVIEW: 58 year old male with [employer] [place] insurance from [place]. Pt lives with his elderly mother. Pt is bariatric. D/C TRANSPORT: jasson Matta- [phone]. SW originally asked for him to pick [...] support at home. CONTACTS: Toby Valentin, mother- [phone] Electronically signed by JOSH Mcbride 06/18/2018 4:52 [...] 4:35 PM PSTSOCIAL WORK D/C PLAN: SNF ([facility]) vs home? NEXT STEPS: Need PT to re-evaluate for disposition. PT can call this SW at [phone] to discuss d/c plan satya concerns. Awaiting returned call from [facility] SNF admissions ([phone]) re: if pt wo uld be appropriate [...] d/c to a SNF. SARAH called to [facility] and they a re reviewing. SARAH spoke to Angelika, Director at [facility]. She stated that pt is not appropr iate for home health. She recommends SNF. She also stated that pt's insurance is difficult t o work with and only authorized 1 home health visit and it took 10 plus days to get auth'ed for any other home health visits. ASSESSMENT/CHART REVIEW: 58 year old male with [employer] [place] insurance from [place]. Pt lives with his elderly mother. Pt is bariatric. D/C TRANSPORT: jasson Matta- [phone]. SARAH originally asked for him to pick [...] support at home. CONTACTS: Toby Valentin, mother- [phone] Electronically signed by JOSH Mcbride 06/17/2018 4:38 PM Kasia Stroud RN - 06/17/2018 11:33 AM PSTFormatting of this no te might be different from the original. [facility] Wound, Ostomy, & Continence Nursing Note Date [...] MD - 1 08/17/2017 8:05 AM PST [facility] UROLOGY DAILY PROGRESS NOTE ID: Lily Valentin [...] Signed by: Patrice Cross MD, 06/17/2018 8:05 [facility] Ptarice Ag MD - 06/16 7:42 AM PST [facility] UROLOGY DAILY PROGRESS NOTE ID: Lily Valentin [...] Signed by: Patrice Cross MD, 06/16/2018 7:42 [facility] Jack Lewis MD - 06/15/2018 [...] 36 sec IMAGING: All images reviewed by ms NEDA08/15/2017 Large amount of gas in intestines, [...] lucero PA-C - 06/13/2018 12:20 PM PDT [facility] UROLOGY DAILY PROGRESS NOTE ID: Lily Valentin [...] Signed by: Xavier Yip PA-C, 06/13/2018 12:20 [facility] Associated attestation - Patrice Cross [...] Cross MD - 06/12/2018 5:33 AM PDT [facility] UROLOGY DAILY PROGRESS NOTE ID: Lily Valentin [...] Signed by: Patrice Cross MD, 06/12/2018 5:33 [facility] documented in this encou nter [...] [address] | | | | | | [place] [address] | | | | | | [phone] | | | | | | | | +--------+---------+ + + + | 12/02/ | Office | Cardiology | Lorraine Clifton DO | | | 2019 | Visit | | [address] | | | | | | [place] | | | | | | [address] | | | | | | | | +--------+---------+ + + + | 12/13/ | Office | Nephrology | Jewel Ulloa MD | | | 2019 | Visit | | [address] [facility] [place] | | | | | | [address] [place] | | | | | | [address] | | | | | | | [...] | | | | to 3.5Performed by [facility] | | LABORATORY | | | | [address], [place], | | [place] | | | | [place] [address] | | | | + + + + + + + + | Specimen | + + | Blood specimen | | (specimen) | + + + + + + + | Performing | Address | City/State/Zipcode | Phone Number | | Organization | | | | + + + + + | [facility] | [address] | [place] [address] | | | [facility] | | | | | [...] [facility] | | | | Performed by [facility] [address] | | SACRED | | | | [address] [place] | | HEART | | | | [address] | | MEDICAL | | | | [...] + + | [facility] | [address] | [place] [address] | | | [facility] | | | | | [...] | | | | to 3.5Performed by [facility] | | LABORATORY | | | | [address] [place], | | [place] | | | | [place] [address] | | | | + + + + + + + + | Specimen | + + | Blood specimen | | (specimen) | + + + + + + + | Performing | Address | City/State/Zipcode | Phone Number | | Organization | | | | + + + + + | [facility] | [address] | [place] [address] | | | [facility] | | | | | [...] | | | | to 3.5Performed by [facility] | | LABORATORY | | | | [address] [place], | | [place] | | | | [place] [address] | | | | + + + + + + + + | Specimen | + + | Blood specimen | | (specimen) | + + + + + + + | Performing | Address | City/State/Zipcode | Phone Number | | Organization | | | | + + + + + | [facility] | [address] | [place] [address] | | | [facility] | [...] [facility] | | | | Performed by [facility] [address] | | SACRED | | | | [address] [place] | | HEART | | | | [address] | | MEDICAL | | | | [...] + + | [facility] | [address] | [place] [address] | | | [facility] | | | | | [...] | | | | to 3.5Performed by [facility] | | LABORATORY | | | | [address], | | [place] | | | | [place] [address] | | | | + + + + + + + + | Specimen | + + | Blood specimen | | (specimen) | + + + + + + + | Performing | Address | City/State/Zipcode | Phone Number | | Organization | | | | + + + + + | [facility] | [address] | [place] [address] | | | [facility] | | | | | [...] | | MEDICAL | | | | [facility] [address], | | CENTER | | | | [place] [address] | | LABORATORY | | | | [...] + + | [facility] | [address] | [place] [address] | | | [facility] | | | | | STEPHEN [...] | | MEDICAL | | | | [facility] [address], | | CENTER | | | | [place] [address] | | LABORATORY | | | | [...] + + | [facility] | [address] | [place] [address] | | | [facility] | | | | | [...] | | | | to 3.5Performed by [facility] | | LABORATORY | | | | [address], [place], | | [place] | | | | [place] | | | | + + + + + + + + | Specimen | + + | Blood specimen | | (specimen) | + + + + + + + | Performing | Address | City/State/Zipcode | Phone Number | | Organization | | | | + + + + + | [facility] | [address] | [place] [address] | | | [facility] | [...] | | | | | seconds.Performed by [facility] | | | | | | [address], | | | | | | [place] [address] | | | | + + + + + + + + | Specimen | + + | Blood specimen | | (specimen) | + + + + + + + | Performing | Address | City/State/Zipcode | Phone Number | | Organization | | | | + + + + + | [facility] | [address] | [place] [address] | | | [facility] | | | | | [...] ENCE | | | Basophils | by [facility] [address], | [place]/u[place] | SACRED | | | | [place] [address] | | HEART | | | |Performed by [facility] [address], [place] [address] | | MEDICA L | | | [...] + | [facility] | [address] | [place] [address] | | | [facility] | | | | | [...] | | MEDICAL | | | | [facility] [address], | | CENTER | | | | [place] [address] | | LABORATORY | | | | [...] + + | [facility] | [address] | [place] [address] | | | HEART [facility] | | | | [...] PROVID[facility] NCE | | | | by [facility] [address], | | SACRED | | | | [place] | | HEART | | | |Performed by [facility] [address], [place], [place] | | MEDICAL | | | [...] + + | [facility] | [address] | [place], [place] | | | [facility] MEDICAL CENTER [...] | | | | to 3.5Performed by [facility] | | LABORATORY | | | | [address], [place], | | [place] | | | | [place] [address] | | | | + + + + + + + + | Specimen | + + | Blood specimen | | (specimen) | + + + + + + + | Performing | Address | City/State/Zipcode | Phone Number | | Organization | | | | + + + + + | [facility] | [address] | [place] [address] | | | [facility] | | | | | STEPHEN [...] | | MEDICAL | | | | [facility] [address], | | [place] | | | | [place] [address] | | LABORATORY | | | | [...] + | [facility] | [address] | [place] [address] | | | [facility] | | | | | [...] | | MEDICAL | | | | [facility] [address], | | CENTER | | | | [place] [address] | | LABORATORY | | | | [...] + + | [facility] | [address] | [place] [address] | | | [facility] | | | | | [...] [facility] NCE | | | | by [facility] [address], | | SACRED | | | | [place] [address] | | HEART | | | |Performed by [facility] [address], [place] [address] | | MEDICAL | | | | [...] + + + + + | [facility] | [address] | [place] [address] | | | [facility] | | | | | [...] | | MEDICAL | | | | [facility] [address], | | CENTER | | | | [place] [address] | | LABORATORY | | | | [...] + + | [facility] | [address] | [place] [address] | | | [facility] | | | | | STEPHEN [...] ROBERTA | | | | Performed by [facility] [address] | | SACRED | | | | [address], [place] | | HEART | | | | [address] | | MEDICAL | | | | [...] [address] | [place] [address] | | | [facility]ENTER | [...] | | MEDICAL | | | | [facility] [address], | | CENTER | | | | [place] [address] | | LABORATORY | | | | [...] + + | [facility] | [address] | [place] [address] | | | [facility] | | | | | [place]EN [place] | | | | + + + + + Tissue Request For Pathology (06/11/2018 2:57 PM PDT) + + | Specimen | + + | | + + + + + | Narrative | Performed At | + + + | | [facility] | | LILY VALENTIN | [place] | | : 1960 AGE: 58 years SEX: Male | [facility]ICAL CENTER | | | LABORATORY | | Acct: [id number] Location: | [place] | | [facility] SURG; 552; 552-02 Case #: | | | [id number] Ordering: PATRICE CROSS MD | | | Client: [facility] | | | Copy To: Printed: | [...] | MDVerify Date: 06/18/2018 12:37 pmPerforming Location: [facility] | | | [facility], [facility] [address] | | | DESCRIPTION:This case is received [...] | | | ureteral and renal vasculature margins.Catheter Finisher And Inspector sections are | | | submitted as [...] pelvis and sinus | | | fat. Catheter Finisher And Inspector sections are submitted during second look with [...] [address] | [place] [address] | | | [facility] | | | | | [...] | | | | | [facility] | | | | | | [place] | | | | | | [facility] | | | | | | BLOOD | | | | | | CENTER | | + + + + + + | Rh Type | PositiveComment: Patient | | REFERENCE | | | | is remote crossmatch | | [facility] | | | | eligible | | [...] + + + | Specimen Expiration Date: [id number] | [facility] | | | [facility] | | | [facility] | | | [facility] | + + + + + + + + | Performing | Address | City/State/Zipcode | Phone Number | | Organization | | | | + + + + + | [facility] | [address] | [place] [address] | [phone] | | [facility] | | | | | [facility] [...] | | | | | [facility] | | | | | | [place] | | | | | | [facility] | | | | | | BLOOD | | | | | | CENTER | | + + + + + + | Rh Type | Positive | | REFERENCE | | | | | | [facility] | | | | | | [place] | | | | | | [facility] | | | | | | BLOOD | | | | | | CENTER | | + + + + + + | Antibody | Negative | | REFERENCE | | | Screen | | | [facility] | | | | | | [place] [...] + + + | Specimen Expiration Date: [id number] | [facility] | | | [facility] | | | [facility] | | | [facility] | + + + + + + + + | Performing | Address | City/State/Zipcode | Phone Number | | Organization | | | | + + + + + | [facility] | [address] | [place] [address] | [phone] | | [facility] | | | | | [facility] [...] | | | POC | Performed by [facility] [address] | | SACRED | | | | [address] [place] | | HEART | | | | [address] | | MEDICAL | | | | [...] + + | [facility] | [address] | [place] [address] | | | [facility] | | | | | [...] | | | | | dose on [facility] 06/12/18 at 0900, | | AM [...]
--- OUTSIDE RECORDS SUMMARY | ~2019-07-10 | XMS | Clinical Summary ---
Demographics + + + | Address | [address] | | | [place] [address] | + + + | Home Phone [...] Team Providers + +------+ + | Care Museum Preparator Name | Role | Phone | + [...] Activ | | 325 mg tablet | daily (with | | | | | e | | | breakfast). | | | | | | [...] + + +---------+------+------+-------+ | acetaminophen | Take 325 mg by [...] 10 mg | Daily. | | | 03/31 | | e | | tablet | [...] daily.Last Cath: | | naLast Echo, 02/16/2016 ([facility]): moderate LVH, global | | hypokinesis, LVEF [...] + | 06/16/ | Orders Only | Nephrology | Jewel Ulloa MD | Essential | | 2019 | | | | hypertension with | [...] | | | | | ([facility]) | +--------+ + + + + | 06/15/ | Office | Nephrology | Jewel Ulloa MD | Chronic kidney | | 2019 | Visit | | | disease, stage 3 | | | | | | ([facility]) (Primary Dx); | | | | | | Anemia of chronic | | | | | | renal failure, stage | | | | | | 3 (moderate) ([facility]); | | | | | | Persistent [...] | | | | 59.9 in adult ([facility]); | | | | | | Essential | | | | | | hypertension with | | | | | | goal blood pressure | | | | | | less than 130/80; | | | | | | Bilateral leg edema; | | | | | | Hyperuricemia | +--------+ + + + + | 06/10/ | Office | Rheumatology | Mindy Nielsen | Positive NICKIE | | 2018 | Visit | | HERMES Manzano | (antinuclear | | | | | | antibody) (Primary | | | | | | Dx) | +--------+ + + + + | 06/09/ | Telephone | Nephrology | Callum, | Other (Appointment | | 2018 | | | Gabo Jay | reminder call) | | | | | 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 | | +--------+ + + + + | 06/01/ | Office | Cardiology | Ileana Henson | Paroxysmal atrial | | 2018 | Visit | | RUPAL Gonzalez | fibrillation (HCC) | | | | | | (Primary Dx); | | | | | | Chronic [...] | | | | left kidney | +--------+ + + + + | 05/04/ | Office | Rheumatology | Arturo Gray | Positive NICKIE | | 2018 | Visit | | MD Tien | (antinuclear | | | | | | antibody) (Primary | | | | | | Dx); Chronic kidney | | | | | | disease, stage 3 | | | | | | (HCC); SS-B antibody | | | | | | positive; Elevated | | | | | | C-reactive protein | | | | | | (CRP); Pain in | | | | | | joint, multiple | | | | | | sites | +--------+ + + + + | 05/04/ | Orders Only | | Todd Munoz, | Positive NICKIE | | 2019 | | | 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 | (antinuclear | | | | | | antibody); Pain in | | | | | | joint, multiple | | | | | | sites | +--------+ + + + + from Last 3 Months Immunizations + + + + | Name | Administration Dates | Next Due | + + + + | INFLUENZA PF | 05/29/2019, 05/14/2018, 04/22/2017 | | | TRIVALENT(PED/ADOL/A | | | | DULT), PSKT | | | + + + + | INFLUENZA, | 05/11/2009 | | | UNSPECIFIED | | | | FORMULATION | | | + + + + Family History + + +------+ + | Medical History | Relation | Name | Comments | + + +------+ + | Cancer | Father | | Lung | + + +------+ + | Diabetes | Mother | | | + + +------+ + | Gout | Mother | | | + + [...] | Respiratory Rate | 20 | 10/30/2018 1:25 PM | | | | | PDT [...] [place] | | | | | | [place] [address] | | | | | | [phone] | | | | | | | | +--------+---------+ + + + | 12/02/ | Office | Cardiology | Lorraine Clifton DO | | | 2019 | Visit | | [address] | | | | | | [place] | | | | | | [address] | | | | | | | | +--------+---------+ + + + | 12/13/ | Office | Nephrology | Jewel Ulloa MD | | | 2019 | Visit | | [address] [place] | | | | | | [address] [place] | | | | | | [address] | | | | | | | [...] | LABS - EXTERNAL SCAN | | 06/12/2019 | | Results for this | | | | 12:00 AM | | procedure are in the | | | | PDT | | results section. | + +--------+ + + + | URIC ACID | Routin | 06/12/2019 | | Results for this | | | e | | | procedure are in the | | | | | | results section. | + +--------+ + + + | PROTEIN/CREATININE | Routin | 06/12/2019 | | Results for this | | RATIO, URINE | e | | | procedure are in the | | | | | | results section. | + +--------+ + + + | RENAL FUNCTION PANEL | Routin | 06/12/2019 | | Results for this | | | e | | | procedure are in the | | | | | | results section. | + +--------+ + + + | CBC WITH | Routin | 06/12/2019 | | Results for this | | DIFFERENTIAL | e | | | procedure are [...] + + from Last 3 Months Results LABS - EXTERNAL SCAN (06/12/2019 12:00 AM PDT)Only the most recent of 2 results within the time period is included. + + + | Narrative | Performed At | + + + | Ordered by an | | | unspecified provider. | | + + + Protein/Creatinine Ratio, Urine (06/12/2019)Only the most recent of 2 results within the ti nh period is included. + + + + + + | Component | Value | Ref Range | Performed | Pathologist | | | | | At | Signature | + + + + + + | Protein/Cre | 240.0 (A) | 0 - 150 | | | | at Ratio | | | | | + + + + + + + + | Specimen | + + | Urine | + + CBC with Differential (06/12/2019)Only the most recent of 2 results within the time period is included. + + + + + + | Component | Value | Ref Range | Performed | Pathologist | | | | | At | Signature | + + + + + + | WBC | 8.4 | 4.5 - 11.0 | | | + + + + + + | RBC | 3.56 (A) | 4.30 - 5.70 | | | | | | M/uL | | | + + + + + + | Hemoglobin | 12.3 (A) | 13.5 - 18.0 | | | + + + + + + | Hematocrit, | 36.8 (A) | 41.0 - 50.0 % | | | | POC | | | | | + + + + + + | Platelet | 273 | 140 - 440 | | | | Count | | | | | | Plasma | | | | | + + + + + + | Neutrophils | 74.7 | 39 - 80 | | | | , Absolute | | | | | + + + + + + | Absolute | 15.9 (A) | 24 - 44 | | | | Lymphocytes | | | | | + + + + + + | Absolute | 6.0 | 0 - 12 | | | | Monocytes | | | | | + + + + + + | Eosinophils | 3.0 | 0 - 6 | | | | , Absolute | | | | | + + + + + + | Basophils, | 0.4 | 0 - 2 | | | | Absolute | | | | | + + + + + + | MCV | 103.3 (A) | 81.0 - 99.0 fL | | | + + + + + + | MCH | 15.5 (A) | 10.5 - 15.0 pg | | | + + + + + + | MCHC | 33.0 | 30.0 - 36.0 | | | | | | g/dL | | | + + + + + + + + | Specimen | + + | Blood | + + Uric Acid (06/12/2019)Only the most recent of 2 results within the time period is included. + +-------+ + + + | Component | Value | Ref Range | Performed | Pathologist | | | | | At | Signature | + +-------+ + + + | URIC ACID | 4.7 | 4.4 - 7.6 | | | | (REF) | | | | | + +-------+ + + + + + | Specimen | + + | Blood | + + Renal Function Panel (06/12/2019) + + + + + + | Component | Value | Ref Range | Performed | Pathologist | | | | | At | Signature | + + + + + + | Na | 139 | 132 - 143 | | | | | | mmol/L | | | + + + + + + | K | 4.4 | 3.6 - 5.1 | | | | | | mmol/L | | | + + + + + + | Cl | 98 | 95 - 112 mmol/L | | | + + + + + + | CO2 | 16 | 7 - 21 mmol/L | | | + + + + + + | Anion Gap | 137 (A) | 70 - 100 mmol/L | | | + + + + + + | Glucose | 137 (A) | 70 - 100 mg/dL | | | + + + + + + | BUN | 36 (A) | 6 - 23 mg/dL | | | + + + + + + | Creatinine | 2.33 (A) | 0.70 - 1.33 | | | | | | mg/dL | | | + + + + + + | Estimated | 29.0 (A) | 60.0 - 140.0 | | | | GFR | | mL/min/1.73m2 | | | + + + + + + | BUN/Creatin | 15.5 | 6.0 - 28.6 | | | | ine Ratio | | | | | + + + + + + | Albumin | 4.1 | 3.5 - 5.0 g/dL | | | + + + + + + | Calcium | 9.4 | 8.5 - 10.3 | | | + + + + + + | PHOSPHORUS | 2.9 | 2.5 - 5.0 | | | + + + + + + + + | Specimen | + + | Blood | + + Urinalysis with Microscopic if Indicated (05/04/2019 9:25 [...] - 1.030 | REFERENCE | | | [place], | | | LAB | | | [...] REFERENCE | | | | performed at [facility];[address] | | LAB | | | | [place] | | [facility] | | | | Bl[address];[place] [address] | | LABORATORY | | + + + + + + + + | Specimen | + + | Urine | + + + + + + + | Performing | Address | City/State/Zipcode | Phone Number | | Organization | | | | + + + + + | REFERENCE LAB | [address] [place] [address] | [place] [address] | [phone] | | [facility] | Blvd[address] | | | | LABORATORY | | | | + + + + + | REFERENCE LAB | [address] [place] [address] | [place] [address] | | | [facility] | Bl[address] | [...] LAB | | | | performed at [facility];[address] | | [facility] | | | | [place] | | LABORATORY | | | | Blvd;[place] [address] | | | | | | | | | | + + + + + + + + | Specimen | + + | | + + + + + + + | Performing | Address | City/State/Zipcode | Phone Number | | Organization | | | | + + + + + | REFERENCE LAB | [address] [place] [address] | [place] [address] | [phone] | | [facility] | Blvd[address] | | | | LABORATORY | | | | + + + + + | REFERENCE LAB | [address] [place] [address] | [place] [address] | | | [facility] | Blvd[address] | [...] | | | urine | performed at [facility];[address] | | [facility] | | | | [place] | | LABORATORY | | | | Blvd;[place] [address] | | | | | | | | | | + + + + + + + + | Specimen | + + | | + + + + + + + | Performing | Address | City/State/Zipcode | Phone Number | | Organization | | | | + + + + + | REFERENCE LAB | [address] | [place] [address] | [phone] | | [facility] | Bl[address] | | | | LABORATORY | | | | + + + + + | REFERENCE LAB | [address] | [place] [address] | | | [facility] | Bl[address] | [...] | | | | | performed at [facility], [address] | | | | | | [facility] | | | | | | [place] [address] | | | | + + + + + + + + | Specimen | + + | Blood | + + + + + + + | Performing | Address | City/State/Zipcode | Phone Number | | Organization | | | | + + + + + | REFERENCE LAB | [address] | [place] [address] | [phone] | | [facility] | Blvd[address] | | | | LABORATORY | | | | + + + + + | REFERENCE LAB | [address] | [place] [address] | | | [facility] | Blvd[address] | [...] | | | Qual | performed at [facility], [address] | | LAB | | | | [address] [facility] | | [facility] | | | | [place] [address] | | LABORATORY | | + + [...] | | | | | with both NH-3 and | | | | | | [...] | | 3 Antibody | performed by [facility], | | LAB | | | | [address], | | [facility] | | | | [facility] [address] | | LABORATORY | | + + + + + + + + | Specimen | + + | Blood | + + + + + + + | Performing | Address | City/State/Zipcode | Phone Number | | Organization | | | | + + + + + | REFERENCE LAB | [address] [place] [address] | [place] [address] | [phone] | | [facility] | Blvd[address] | | | | LABORATORY | | | | + + + + + | REFERENCE LAB | [address] [place] [address] | [place] [address] | | | [facility] | Blvd. | [...] | | | COMPLEMENT | performed at [facility];[address] | | LAB | | | | [place] | | [facility] | | | | Bl[address];[place] [address] | | LABORATORY | | + + + + + + + + | Specimen | + + | Blood | + + + + + + + | Performing | Address | City/State/Zipcode | Phone Number | | Organization | | | | + + + + + | REFERENCE LAB | [address] [place] [address] | [place] [address] | [phone] | | [facility] | Blvd[address] | | | | LABORATORY | | | | + + + + + | REFERENCE LAB | [address] | [place] [address] | | | [facility] | Blvd[address] | [...] REFERENCE | | | | performed at [facility];[address] | | LAB | | | | [place] | | [facility] | | | | Blvd;[place] [address] | | LABORATORY | | + + + + + + + + | Specimen | + + | Blood | + + + + + + + | Performing | Address | City/State/Zipcode | Phone Number | | Organization | | | | + + + + + | REFERENCE LAB | [address] [place] [address] | [place] [address] | [phone] | | [facility] | Blvd[address] | | | | LABORATORY | | | | + + + + + | REFERENCE LAB | [address] [place] [address] | [place] [address] | | | [facility] | Blvd. | [...] [place] | | | | | | [address] | | | | + + + + + + + + | Specimen | + + | Blood | + + + + + + + | Performing | Address | City/State/Zipcode | Phone Number | | Organization | | | | + + + + + | REFERENCE LAB | [address] [facility] [address] | [place] [address] | [phone] | | [facility] | Blvd[address] | | | | LABORATORY | | | | + + + + + | REFERENCE LAB | [address] [place] [address] | [place] [address] | | | [facility] | Blvd. | [...] criterion | | | | | | ([employer] | | | | | [...] | | | | | validated by [employer] | | | | | | [employer] This | | | | | [...] by | | | | | | [facility] | | | | | | [employer].June | | | | | | 2018 dsDNA (nDNA) | | | | | | Scrn by Cr[employer] will | | | | | | be made non-orderable. | | | | | | [facility] offers [id number] | | | | | | dsDNA Crithidia madina | | | | | | IFA. For further | | | | | | information, please | | | | | | contact your local | | | | | | [facility] | | | | | | Framing Mechanic.Testing | | | | | | performed at [facility] | | | | | | [facility], [address] | | | | | | [facility], [facility] | | | | | | [address],[place], [place] | | | | | | [phone]. | | | | + + + + + + + + | Specimen | + + | Blood | + + + + + + + | Performing | Address | City/State/Zipcode | Phone Number | | Organization | | | | + + + + + | REFERENCE LAB | [address] [place] [address] | [place] [address] | [phone] | | [facility] | Blvd[address] | | | | LABORATORY | | | | + + + + + | REFERENCE LAB | [address] [place] [address] | [place] [address] | | | [facility] | Blvd. | [...] REFERENCE | | | | performed at [facility];[address] | | LAB | | | | [place] | | [facility] | | | | Blvd;[place] [address] | | LABORATORY | | + + + + + + + + | Specimen | + + | Blood | + + + + + + + | Performing | Address | City/State/Zipcode | Phone Number | | Organization | | | | + + + + + | REFERENCE LAB | [address] [place] [address] | [place] [address] | [phone] | | [facility] | Blvd. | | | | LABORATORY | | | | + + + + + | REFERENCE LAB | [address] [place] [address] | [place] [address] | | | [facility] | Blvd. | [...] | | | | | performed at [facility];[address] | | | | | | [facility] | | | | | | Blvd;[place] [address] | | | | | | | | | | + + + + + + + + | Specimen | + + | Blood | + + + + + + + | Performing | Address | City/State/Zipcode | Phone Number | | Organization | | | | + + + + + | REFERENCE LAB | [address] | [place] [address] | [phone] | | [facility] | Blvd[address] | | | | LABORATORY | | | | + + + + + | REFERENCE LAB | [address] | [place] [address] | | | [facility] | Blvd[address] | | | | LABORATORY | | | | + + + + + from Last 3 Months Insurance + +--------+ +--------+ +---------+--------+ | Payer | Benefi | Subscriber | Effect | Phone | Address | Type | | | t Plan | ID | ascencion | | | | | | / | | Dates | | | | | | Group | | | | | | + +--------+ +--------+ +---------+--------+ | [employer] | MODA | [id number] | | [phone] | | Medica | | MEDICAID HMO | HEALTH | | 019-Pr | 1 | | id | | | MDCD | | esent | | | | | | [place] | | | | | | + +--------+ +--------+ +---------+--------+ | PREMERA | PREMER | [id number] | 08/12/19 | [phone] | | PPO | | | A | 3 | 17-Pre | 0 | | | | | PREFER | | sent | | | | | | RED | | | | | | + +--------+ +--------+ +---------+--------+ | [employer] | MODA | [id number] | | [phone] | | Medica | | MEDICAID HMO | HEALTH | | 019-Pr | 1 | | id | | | MDCD | | esent | | | | | | [place] | | | | | | + +--------+ +--------+ +---------+--------+ + +--------+ +--------+ + + | Guarantor Name | Accoun | Relation to | Date | Phone | Billing Address | | | t Type | Patient | of | | | | | | | | | | + +--------+ +--------+ + + | Aaron Latham | Person | Self [birth year] | [address] | | | al/Fam | | 1960 | [phone] | [address] [place], | | | [place]net[place] | | | 1 (Home) | [place] [address] | + +--------+ +--------+ + + | Aaron Latham | Person | Self | [birth year] | [address] | | | al/Fam | | 1960 | [phone] | [address] [place], | | | [place]net[place] | | | [address] (Home) | [place] [address] | + +--------+ +--------+ + + | Aaron Latham | Person | Self | [birth year] | [address] | | | al/Fam | | 1960 | [phone] | [address] [place], | | | [place] | | | [address] (Home) | [place] [address] | + +--------+ +--------+ + + Advance Directives + + + + + | Type | Date Recorded | Patient | Explanation | | | | Framing Mechanic | | + + + + + | Power of | | | | | Maintenance Groundman | | | | + + + + + | Advance | 08/09/2017 | | At Doctor & will with Tower Equipment Installer | | Directive | 12:18 PM | [...]
--- OUTSIDE RECORDS SUMMARY | ~2019-07-10 | XMS | Encounter Summary ---
Demographics + + + | Address | [address] | | | [place] [address] | + + + | Home Phone [...] Team Providers + +------+ + | Care Merchandise Examiner Name | Role | Phone | + +------+ + | Sarah Carroll MD | PCP | | + +------+ + Encounter Details +--------+ + + + + | Date | Type | Department | Care Team | Description | +--------+ + + + + | 01/22/ | Orders Only | [facility] | Mauliktayla Ileana | | | 2017 | | CARDIOLOGY [place] | [address] | | | | | [address] | [address] [place] | | | | | [place], [place] | [place] [address] | | | | | [address] | [phone] | | | | | [phone] | | | +--------+ + + + [...] [place] | | | | | | [place] [address] | | | | | | [phone] | | | | | | | | +--------+---------+ + + + | 12/02/ | Office | Cardiology | Lorraine Clifton DO | | | 2019 | Visit | | [address] | | | | | | [facility] [place] | | | | | | [address] | | | | | | | | +--------+---------+ + + + | 12/13/ | Office | Nephrology | Jewel Ulloa MD | | | 2019 | Visit | | [address] [facility] | | | | | | [address] [place] | | | | | | [address] | | | | | | | [...]
--- OUTSIDE RECORDS SUMMARY | ~2019-07-10 | XMS | Encounter Summary ---
Demographics + + + | Address | [address] | | | [place] [address] | + + + | Home Phone | | + + + | Preferred Language | Unknown | + + + | Marital Status | Single | + + + | Faith Affiliation | LDS | + + + [...] [place] | | | | | [address] | | + + + + + Care Team Providers + +------+ + | Care Marketing Analytics Specialist Name | Role | Phone | [...] | | | | | [address] | | | | | | SARAH [address]once | | | | | | Travis Mailcode: UHN83 | | | | | | [place]orm[place] | | | | | | [address] [place], [place] | | | | | | [address] | | | | | | [phone] | | | +--------+ + + + [...] | | | | | | [place], [place] | | | | | | [address] | | | | | | [phone] | | | | | | | | +--------+---------+ + + + documented as of this encounter Visit Diagnoses Not on filedocumented in this encounter"
--- OUTSIDE RECORDS SUMMARY | ~2019-07-10 | XMS | Encounter Summary ---
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, | systolic and | | | | CLINICAL DECISION | Provider Unknown | diastolic congestive | | | | [address] [facility] | [phone] | heart failure | | | | [place], [place] | | ([facility]); Persistent | | | | [address] | Rocael Benedict, | atrial fibrillation | | | | [phone] | MD Key HUNTER | ([facility]); Essential | | | | | [address] [place] | hypertension with | | | | | [address] | goal blood pressure | | | [...] effort | | | | | | ([facility]); Chronic | | | | [...] 02/06/171900 Date of Service: 02/06/171855 Status: Signed Garbage Person: Penelope Dale RN (Registered Nurse) Dr. Benedict 's phone Called and message left - Florencia notified Him That Aaron Latham Had 1 hour Left For iv Hydration and Left [place]. Devendra onver tara Transaction, Provider Unknown - 02/06/2017 6:56 PM PDT Progress Notes by Penelope Dale RN at 02/06/171855 Author: Penelope Dale RN Service: (none) Author Type: Registered Nurse Filed: 02/06/171903 Date of Service: 02/06/171855 Status: Signed Garbage Person: Penelope Dale RN (Registered Nurse) Personal Belongings With pt. Pt Wheeled To car With certified medical transcriptionist/car. Mother With Pt. Pt Awake and alert and No Distress. Devendra onver tara Transaction, Provider Unknown - 02/06/2017 6:54 PM PDT Progress Notes by Penelope Dale RN at 02/06/171853 Author: Penelope Dale RN Service: (none) Author Type: Registered Nurse Filed: 02/06/171901 Date of Service: 02/06/171853 Status: Addendum Garbage Person: Penelope Dale RN (Registered Nurse) Related Notes: [...] home. Son Signed ama form rn Called Computer Support Analyst per mother's Demand. Tr band Instructions Reviewed with pt And mother By Nurse Miko- Malka Casey trband Site Cleaned per Policy and Sterile Dressing Applied. Devendra onver tara Transaction, Provider Unknown - 02/06/2017 6:40 PM PDT Progress Notes by Penelope Dale RN at 02/06/171839 Author: Penelope Dale RN Service: (none) Author Type: Registered Nurse Filed: 02/06/171840 Date of Service: 02/06/171839 Status: Signed Garbage Person: Penelope Dale RN (Registered Nurse) rn Diego Answered Dr. Benedict Phone/who is in middle of procedure/unable To talk Now. Devendra onver tara Transaction, Provider Unknown - 02/06/2017 6:35 PM PDT Progress Notes by Penelope Dale RN at 02/06/171834 Author: Penelope Dale RN Service: (none) Author Type: Registered Nurse Filed: 02/06/171836 Date of Service: 02/06/171834 Status: Signed Garbage Person: Penelope Dale RN (Registered Nurse) Pt And Mother Demanding to Go home Now. Pt States Drank 2000 Cc And Peed 550 Urine. Have A Computer Support Analyst Waiting Since 10 am. Plan of Care has Been Reviewed With pt And mother for Discharge At 8pm Repeated And they Had Agreed. No mention of Computer Support Analyst Outside ever Mentioned. Devendra onver tara Transaction, Provider Unknown - 02/06/2017 4:19 PM PDT Progress Notes by Penelope Dale RN at 02/06/17 1619 Author: Penelope Dale RN Service: (none) Author Type: Registered Nurse Filed: 02/06/17 1705 Date of Service: 02/06/17 1619 Status: Addendum Garbage Person: Penelope Dale RN (Registered Nurse) Related Notes: [...] Date of Service: 02/06/17 1139 Status: Signed Garbage Person: Lary Stuart RN (Registered Nurse) Sodium Bicarbonate 4.2% 5ml given infiltrate right wrist onver tara Transaction, Provider Unknown - 02/06/2017 11:39 AM PDT Nurse Progress Note by Lary Stuart RN at 02/06/17 1139 Author: Lary Stuart RN Service: Cardiac, Thoracic, and Vascular Surgery Author Typ e: Registered Nurse Filed: 02/11/17 1030 Date of Service: 02/06/171138 Status: Addendum Garbage Person: Lary Stuart RN (Registered Nurse) Related Notes: [...] | | | | | | [address] | | | | | | [place] [address] | | | | | | [phone] | | | | | | | | +--------+---------+ + + + | 12/02/ | Office | Cardiology | Lorraine Clifton DO | | | 2019 | Visit | | [address] | | | | | | [place] | | | | | | [address] | | | | | | | | +--------+---------+ + + + | 12/13/ | Office | Nephrology | Jewel Ulloa MD | | | 2019 | Visit | | [address] [place] | | | | | | [address] [place] | | | | | | [address] | | | | | | | [...] EXTERNAL | | | | performed at [facility], [address] | | LAB | | | | [address], | | | | | | [place] [address] | | | | + + + [...] | | | | | performed at [facility] | | | | | | [address] [facility];[place], [place] | | | | | | [address] | | | | + + + [...] + + + | RED CELL | 3.47 (L) | 4.20 - 5.70 | EXTERNAL | | | COUNT | | M/uL | LAB | | + + + + + + | Hgb | 11.8 (L) | 13.2 - 17.0 [...] | | | Basophils | performed at [facility];[address] | K/uL | LAB | | | | [address];[place] | | | | | | [address] | | | | + + + [...] + + + + + + | LDL | 75Comment: Testing | mg/dL | EXTERNAL | | | Cholesterol | performed at [facility], [address] | | LAB | | | , | [address], | | | | | Calculated, | [place] [address] | | | | | External | | | | | + + [...] | | | | | | at [facility];[address];[place] [address] | | | | + + + [...] | + + | Persistent atrial fibrillation Atrial fibrillation | + + | Essential [...]
--- OUTSIDE RECORDS SUMMARY | ~2019-07-10 | XMS | Encounter Summary ---
Demographics + + + | Address | [address] | | | [place] [address] | + + + | Home Phone [...] + | Author | [facility] | | | and [place] | + + + | Organization | [facility] | | | and [...] Team Providers + +------+ + | Care Asbestos Pipe Supervisor Name | Role | Phone | + +------+ + | Sarah Carroll MD | PCP | | + +------+ + Encounter Details +--------+ + + + + | Date | Type | Department | Care Team | Description | +--------+ + + + + | 10/16/ | Orders Only | [facility] | Jewel Ulloa MD | | | 2019 | | NEPHROLOGY [place] | [address] [place] | | | | | [address] [place] | [address] [place], [place] | | | | | [address] [place], [place] | [address] | | | | | [address] | | | | | | [phone] | | | +--------+ + + + [...] | | | | | [place] [address] | | | | | | [phone] | | | | | | | | +--------+---------+ + + + | 12/02/ | Office | Cardiology | Lorraine Clifton DO | | | 2019 | Visit | | [address] | | | | | | [place] | | | | | | [address] | | | | | | | | +--------+---------+ + + + | 12/13/ | Office | Nephrology | Jewel Ulloa MD | | | 2019 | Visit | | [address] [facility] | | | | | | [address] [place], [place] | | | | | | [address] | | | | | | | [...] | | | LAB | | | [place] | | | | | + + [...]
--- OUTSIDE RECORDS SUMMARY | ~2019-07-10 | XMS | Encounter Summary ---
Demographics + + + | Address | [address] | | | [place] [address] | + + + | Home Phone [...] [place] | | | | | [address] | | + + + + + Care Team Providers + +------+ + | Care Hull And Deck Remover Name | Role | Phone | + [...] | | | | CONSULT TO | [place], [place] | Harsh | | | | | GI PROCEDURE | [address] | [address] | | | | | UNIT: | Phone: | [place], | | | | | COLONOSCOPY | [phone] | [place] [address] | | | | | | Fax: | Phone: | | | | | | [phone] | [phone] | | | | | | | Fax: | | | | | | | [phone] | +--------+--------+ + + + + Encounter Details +--------+ + + + + | Date | Type | Department | Care Team | Description | +--------+ + + + + | 04/14/ | Airplane Navigator | [facility] at [facility] | [place], | Polyp of colon, | | 2018 | | [place] [address] | MD Charles [address] | villous adenoma | | | | [place] Daynee Mailcode: | [address] | (Primary Dx) | | | | [facility] | [place], [place] | | | | | Health and [facility], | [address] | | | | | [facility] 2 | [phone] | | | | | [place], [place] | | | | | | [address] | | | | | | [phone] | | | +--------+ + + + [...] Rd | | | | | | [place], [place] | | | | | | [address] | | | | | | [phone] | | | | | | | | +--------+---------+ + + + documented as of this encounter Visit Diagnoses + + | Diagnosis | + + | Polyp of colon, villous adenoma - Primary Benign neoplasm of colon | + + documented in this encounter"
--- OUTSIDE RECORDS SUMMARY | ~2019-07-10 | XMS | Encounter Summary ---
Demographics + + + | Address | [address] | | | [place] [address] | + + + | Home Phone [...] Providers + +------+ + | Care Automatic Centrifugal Station Operator Name | Role | Phone | [...] | Neurosurgery | Diagnoses | [place] | Mendez, | | | Services | | Peripheral | Riccardo Mcgill MD | Mario Liang MD | | | Required | | polyneuropat | [address] | | | | | hy Lumbar | [address] | [place], | | | | | radiculopath | [place], | [place] [address] | | | | | y Leg pain, | [place] [address] | Phone: | | | | | diffuse, | Phone: | [phone] | | | | | left | [phone] | Fax: | | | | | Paresthesia | Fax: | [phone] | | | | | of left leg | [phone] | | | | | | CRP [...] | | | antibody) | | | + + + + + + + Evaluate & [...] | | | | hy Lumbar | [address] | [address] | | | | | radiculopath | [place], | [address] | | | | | y Leg pain, | [place] [address] | [place] | | | | | diffuse, | Phone: | [place] [address] | | | | | left | [phone] | Phone: | | | | | Paresthesia | Fax: | [phone] | | | | | of left leg | [phone] | Fax: | | | | | CRP | | [phone] | | | | | elevated Ds [...] + + + Evaluate & Treat (Urgent) + + + + + + + | Status | Reason | Specialty | Diagnoses / | Referred By | Referred To | | | | | Procedures | Contact | Contact | + + + + + + + | Authorized | Specialty | Rheumatology | Diagnoses | [place], | Quin, | | | Services | | Peripheral | Riccardo E A, MD | Angeli, MD | | | Required | | polyneuropat | [address] | [address] | | | | | hy CRP | [address] | [address] | | | | | elevated Ds | [place], | PLACE | | | | | DNA | [place] [address] | [place], [place] | | | | | antibody | Phone: | [address] | | | | | positive | [phone] | Phone: | | | | | Positive NICKIE | Fax: | [phone] | | | | | | [phone] | Fax: | | | | | (antinuclear | | [phone] | | | | | antibody) | | | + + + + [...] + + | 03/10/ | Office | [facility] [place] | Riccardo Malhotra, | Peripheral | | 2019 | Visit | PHYSIATRY [address] | [address] | polyneuropathy | | | | [place], | [place], [place] | (Primary Dx); Lumbar | | | | [place] [address] | [address] | radiculopathy; Leg | | | | [phone] | | pain, diffuse, left; | | | | | | Paresthesia of left | | [...] fro m the original. Riccardo Malhotra MD [address] [place] [address], [address] [place] [address] FAX: PHYSICAL MEDICINE AND REHABILITATION H&P CHIEF [...] no apparent deficits with short or intermediate frame tender memory. The cranial nerves appear grossly intact. [...] 13. Positive NICKIE (antinuclear antibody) PLAN: 1. Araon Latham returns to the clinic today to [...] neurology, a referral will be sent to [facility], based on his NCS results. We [...] rheumatology referral has been sent t o [facility] under the classification of urgent. We [...] work toward weight loss. We discussed that [facility] indicates that weight loss is the most powerful treatment for back pain. 15. Today we discussed the possibility of going to see a neurosurgeon to look more into his lumbar radiculopathy. A referral has been sent to [facility] for a neurosurgeon consultation to jazmine martin at Aaron Latham's lower back to evaluate and offer advise as to how to proceed wi care. 15. Aaron Latham is advised that [...] [address] | | | | | | [place] [address] | | | | | | [phone] | | | | | | | | +--------+---------+ + + + | 12/02/ | Office | Cardiology | Lorraine Clifton DO | | | 2019 | Visit | | [address] | | | | | | [place] | | | | | | [address] | | | | | | | | +--------+---------+ + + + | 12/13/ | Office | Nephrology | Jewel Ulloa MD | | | 2019 | Visit | | [address] [facility] [address] [place] | | | | | | [address] [place] | | | | | | [address] | | | | | | | [...]
--- OUTSIDE RECORDS SUMMARY | ~2019-07-10 | XMS | Encounter Summary ---
Demographics + + + | Address | [address] | | | [place] [address] | + + + | Home Phone [...] Team Providers + +------+ + | Care Member Certification Manager Name | Role | Phone | [...] Provider Unknown | | | | | [address] | [phone] | | | | | [phone] | | | +--------+ + + + [...] | | | | | [place] [address] | | | | | | [phone] | | | | | | | | +--------+---------+ + + + | 12/02/ | Office | Cardiology | Lorraine Clifton DO | | | 2019 | Visit | | [address] | | | | | | [place] | | | | | | [address] | | | | | | | | +--------+---------+ + + + | 12/13/ | Office | Nephrology | Jewel Ulloa MD | | | 2019 | Visit | | [address] | | | | | | [address] [place] | | | | | | [address] | | | | | | | [...]
--- OUTSIDE RECORDS SUMMARY | ~2019-07-10 | XMS | Encounter Summary ---
Demographics + + + | Address | [address] | | | [place] [address] | + + + | Home Phone [...] Team Providers + +------+ + | Care Carrier Packer Name | Role | Phone | [...] | | | | | hy, | [address] | [address] | | | | | unspecified | [place], | [place], [place] | | | | | Elevated | [place] [address] | [address] | | | | | C-reactive | Phone: | Phone: | | | | | protein | [phone] | [phone] | | | | | (CRP) Other | Fax: | Fax: | | | | | specified | [phone] | [phone] | | | | | abnormal | [...] + + | 05/04/ | Office | [facility] | Arturo Gray | Positive NICKIE | | 2019 | Visit | RHEUMATOLOGY [address] | MD Tien [address] | (antinuclear | | | | [address] | [address] | antibody) (Primary | | | | [place] | [place] [address] | Dx); Chronic kidney | | | | [address] | [phone] | disease, stage 3 | | | | [phone] | | (HCC); SS-B antibody | | [...] encounter Patient Instructions Patient Instructions Serena Forman, Contact Person - 05/04/2019 8:30 AM JUANCARLOSWe hope t hat you have experienced exceptional care today and that you found our service to be courteo us and helpful. If you have any questions, you can send us a message/request using TestSoup or call our o ffice at [phone]. To reach the Contact Person , dial [phone] - [phone]- Serena Jose J GARRISON If you are [...] You can also review your results on Reclutechart. 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 I reassured patient that [...] | | | | | [place] [address] | | | | | | [phone] | | | | | | | | +--------+---------+ + + + | 12/02/ | Office | Cardiology | Lorraine Clifton DO | | | 2019 | Visit | | [address] | | | | | | [place] | | | | | | [address] | | | | | | | | +--------+---------+ + + + | 12/13/ | Office | Nephrology | Jewel Ulloa MD | | | 2019 | Visit | | [address] [facility] [address] [place] | | | | | | [address] [place] | | | | | | [address] | | | | | | | [...] - 1.030 | REFERENCE | | | [place], | | | LAB | | | [...] REFERENCE | | | | performed at [facility];[address] | | LAB | | | | [place] | | [facility] | | | | [address];[place] [address] | | LABORATORY | | + + + + + + + + | Specimen | + + | Urine | + + + + + + + | Performing | Address | City/State/Zipcode | Phone Number | | Organization | | | | + + + + + | REFERENCE LAB | [address] [place] [address] | [place] [address] | [phone] | | [facility] | Blvd[address] | | | | LABORATORY | | | | + + + + + | REFERENCE LAB | [address] [place] [address] | [place] [address] | | | [facility] | Blvd. | [...] | | | RATIO,URINE | performed at [facility];[address] | | LAB | | | | [place] | | [facility] | | | | [address];[place] [address] | | LABORATORY | | + + + + + + + + | Specimen | + + | Urine | + + + + + + + | Performing | Address | City/State/Zipcode | Phone Number | | Organization | | | | + + + + + | REFERENCE LAB | [address] [facility] | [place] [address] | [phone] | | [facility] | Blvd[address] | | | | LABORATORY | | | | + + + + + | REFERENCE LAB | [address] [facility] [address] | [place] [address] | | | [facility] | Bl[address] | [...] REFERENCE | | | | performed at [facility];[address] | | LAB | | | | [place] | | [facility] | | | | [address];[place] [address] | | LABORATORY | | + + + + + + + + | Specimen | + + | Blood | + + + + + + + | Performing | Address | City/State/Zipcode | Phone Number | | Organization | | | | + + + + + | REFERENCE LAB | [address] [place] [address] | [place] [address] | [phone] | | [facility] | Blvd[address] | | | | LABORATORY | | | | + + + + + | REFERENCE LAB | [address] [place] [address] | [place] [address] | | | [facility] | Bl[address]. | [...] | | | Qual | performed at [facility], [address] | | LAB | | | | [address] [facility] | | [facility] | | | | [place] [address] | | LABORATORY | | + + [...] | | | | | with both ME-3 and | | | | | | [...] | | 3 Antibody | performed by [facility], | | LAB | | | | [address], | | [facility] | | | | [facility] [address] | | LABORATORY | | + + + + + + + + | Specimen | + + | Blood | + + + + + + + | Performing | Address | City/State/Zipcode | Phone Number | | Organization | | | | + + + + + | REFERENCE LAB | [address] [place] [address] | [place] [address] | [phone] | | [facility] | Blvd[address] | | | | LABORATORY | | | | + + + + + | REFERENCE LAB | [address] [place] [address] | [place] [address] | | | [facility] | Blvd. | [...] | | | COMPLEMENT | performed at [facility];[address] | | LAB | | | | [place] | | [facility] | | | | [address];[place], [place] [address] | | LABORATORY | | + + + + + + + + | Specimen | + + | Blood | + + + + + + + | Performing | Address | City/State/Zipcode | Phone Number | | Organization | | | | + + + + + | REFERENCE LAB | [address] [facility] | [place] [address] | [phone] | | [facility] | Blvd[address] | | | | LABORATORY | | | | + + + + + | REFERENCE LAB | [address] [place] [address] | [place] [address] | | | [facility] | Blvd. | [...] criterion | | | | | | ([employer] | | | | | [...] | | | | | [facility] offers [id number] | | | | | | dsDNA Crithidia luciliae | | | | | | IFA. For further | | | | | | information, please | | | | | | contact your local | | | | | | [facility] | | | | | | Make Up Artist.Testing | | | | | | performed at [facility] | | | | | [facility], [address], [address] | | | | | [address],[place], [place] | | | | | | [address]. | | | | + + + + + + + + | Specimen | + + | Blood | + + + + + + + | Performing | Address | City/State/Zipcode | Phone Number | | Organization | | | | + + + + + | REFERENCE LAB | [address] [place] [address] | [place] [address] | [phone] | | [facility] | Blvd[address] | | | | LABORATORY | | | | + + + + + | REFERENCE LAB | [address] [place] [address] | [place] [address] | | | [facility] | Blvd. | [...] | | | | | | at [facility], [address] | | | | | | [place] | | | | | | [address] | | | | + + + + + + + + | Specimen | + + | Blood | + + + + + + + | Performing | Address | City/State/Zipcode | Phone Number | | Organization | | | | + + + + + | REFERENCE LAB | [address] [place] [address] | [place] [id number] | [phone] | | [facility] | Blvd. | | | | LABORATORY | | | | + + + + + | REFERENCE LAB | [address] [place] [address] | [place] [address] | | | [facility] | Blvd. | [...] | | | | | performed at [facility], [address] | | | | | | [address] | | | | | | [place] [address] | | | | + + + + + + + + | Specimen | + + | Blood | + + + + + + + | Performing | Address | City/State/Zipcode | Phone Number | | Organization | | | | + + + + + | REFERENCE LAB | [address] [facility] | [place] [address] | [phone] | | [facility] | Blvd[address] | | | | LABORATORY | | | | + + + + + | REFERENCE LAB | [address] | [place] [address] | | | [facility] | Blvd. | [...] REFERENCE | | | | performed at [facility];[address] | | LAB | | | | [facility] | | [facility] | | | | Blvd;[place] [address] | | LABORATORY | | + + + + + + + + | Specimen | + + | Blood | + + + + + + + | Performing | Address | City/State/Zipcode | Phone Number | | Organization | | | | + + + + + | REFERENCE LAB | [address] [place] [address] | [place] [address] | [phone] | | [facility] | Blvd. | | | | LABORATORY | | | | + + + + + | REFERENCE LAB | [address] [place] [address] | [place] [address] | | | [facility] | Blvd. | [...] REFERENCE | | | | performed at [facility];[address] | | LAB | | | | [place] | | [facility] | | | | Blvd;[place] [address] | | LABORATORY | | + + + + + + + + | Specimen | + + | Blood | + + + + + + + | Performing | Address | City/State/Zipcode | Phone Number | | Organization | | | | + + + + + | REFERENCE LAB | [address] | [place] [address] | [phone] | | [facility] | Blvd[address] | | | | LABORATORY | | | | + + + + + | REFERENCE LAB | [address] | [place] [address] | | | [facility] | Blvd. | [...] | | | | | performed at [facility];[address] | | | | | | [facility] | | | | | | [facility];[place], [place] [address] | | | | | | | | | | + + + + + + + + | Specimen | + + | Blood | + + + + + + + | Performing | Address | City/State/Zipcode | Phone Number | | Organization | | | | + + + + + | REFERENCE LAB | [address] [facility] [address] | [place] [address] | [phone] | | [facility] | Blvd[address] | | | | LABORATORY | | | | + + + + + | REFERENCE LAB | [address] [facility] | [place] [address] | | | [facility] | Blvd. | [...] | | | Absolute | performed at [facility];[address] | K/uL | LAB | | | | [place] | | [facility] | | | | Bl[address];[place] [address] | | LABORATORY | | + + + + + + + + | Specimen | + + | Blood | + + + + + + + | Performing | Address | City/State/Zipcode | Phone Number | | Organization | | | | + + + + + | REFERENCE LAB | [address] [place] [address] | [place] [address] | [phone] | | [facility] | Blvd[address] | | | | LABORATORY | | | | + + + + + | REFERENCE LAB | [address] [place] [address] | [place] [address] | | | [facility] | Blvd. | [...]
--- OUTSIDE RECORDS SUMMARY | ~2019-07-10 | XMS | Encounter Summary ---
Demographics + + + | Address | [address] | | | [place] [address] | + + + | Home Phone [...] + + | Author | [facility] | | | and [place] | + + + | Organization | [facility] | | | [...] Providers + +------+ + | Care Manager Cardiac Name | Role | Phone | + [...] | | | | | DNA | [address] | | | | | | antibody | [place], | | | | | | positive | [place] [address] | | | | | | Peripheral | Phone: | | | | | | polyneuropat | [phone] | | | | | | hy Numbness | Fax: | | | | | | of both | [phone] | | | | | | lower [...] PHYSIATRY [address] | MD [address] | | | | | [place], | [place], [place] | | | | | [place] [address] | [address] | | | | | [phone] | | | +--------+ + + + [...] | | | | | [place] [address] | | | | | | [phone] | | | | | | | | +--------+---------+ + + + | 12/02/ | Office | Cardiology | Lorraine Clifton DO | | | 2019 | Visit | | [address] | | | | | | [place] | | | | | | [address] | | | | | | | | +--------+---------+ + + + | 12/13/ | Office | Nephrology | Jewel Ulloa MD | | | 2019 | Visit | | [address] [place] | | | | | | [address] [place], [place] | | | | | | [address] | | | | | | | [...]
--- OUTSIDE RECORDS SUMMARY | ~2019-07-10 | XMS | Clinical Summary ---
Demographics + + + | Address | [address] | | | [place] [address] | + + + | Home Phone [...] Team Providers + +------+ + | Care Miter Cutter Name | Role | Phone | [...] 3 | | | | | | ([facility]) | +--------+ + + + + | 06/15/ | Office | Nephrology | Jewel Ulloa MD | Chronic kidney | | 2019 | Visit | | | disease, stage 3 | | | | | | ([facility]) (Primary Dx); | | | | | | Anemia of chronic | | | | | | renal failure, stage | | | | | | 3 (moderate) ([facility]); | | | | | | Persistent [...] | | | | 59.9 in adult ([facility]); | | | | | | Essential [...] reminder call) | | | | | Medical Editor | | +--------+ + + + + [...] NICKIE | | 2019 | | | Weed Control Inspector | (antinuclear | | | | | [...] [place] | | | | | | [place] [address] | | | | | | [phone] | | | | | | | | +--------+---------+ + + + | 12/02/ | Office | Cardiology | Lorraine Clifton DO | | | 2019 | Visit | | [address] | | | | | | [place] | | | | | | [address] | | | | | | | | +--------+---------+ + + + | 12/13/ | Office | Nephrology | Jewel Ulloa MD | | | 2019 | Visit | | [address] [place] | | | | | | [address] [place] | | | | | | [address] | | | | | | | [...] recent of 2 results within the ti wi period is included. + + + + [...] - 1.030 | REFERENCE | | | [place], | | | LAB | | | [...] REFERENCE | | | | performed at [facility];[address] | | LAB | | | | [place] | | [facility] | | | | [address];[place] [address] | | LABORATORY | | + + + + + + + + | Specimen | + + | Urine | + + + + + + + | Performing | Address | City/State/Zipcode | Phone Number | | Organization | | | | + + + + + | REFERENCE LAB | [address] [place] [address] | [place] [address] | [phone] | | [facility] | Blvd[address] | | | | LABORATORY | | | | + + + + + | REFERENCE LAB | [address] [place] [address] | [place] [address] | | | [facility] | Blvd. | [...] LAB | | | | performed at [facility];[address] | | [facility] | | | | [place] | | LABORATORY | | | | Blvd;[place] [address] | | | | | | | | | | + + + + + + + + | Specimen | + + | | + + + + + + + | Performing | Address | City/State/Zipcode | Phone Number | | Organization | | | | + + + + + | REFERENCE LAB | [address] [place] [address] | [place] [address] | [phone] | | [facility] | Blvd. | | | | LABORATORY | | | | + + + + + | REFERENCE LAB | [address] [place] [address] | [place] [address] | | | [facility] | Blvd. | [...] | | | urine | performed at [facility];[address] | | [facility] | | | | [place] | | LABORATORY | | | | Blvd;[place] [address] | | | | | | | | | | + + + + + + + + | Specimen | + + | | + + + + + + + | Performing | Address | City/State/Zipcode | Phone Number | | Organization | | | | + + + + + | REFERENCE LAB | [address] [facility] | [place] [address] | [phone] | | [facility] | Blvd[address] | | | | LABORATORY | | | | + + + + + | REFERENCE LAB | [address] [facility] | [place] [address] | | | [facility] | Blvd. | [...] | | | | | performed at [facility], [address] | | | | | | [facility] | | | | | | [place] [address] | | | | + + + + + + + + | Specimen | + + | Blood | + + + + + + + | Performing | Address | City/State/Zipcode | Phone Number | | Organization | | | | + + + + + | REFERENCE LAB | [address] [facility] | [place] [address] | [phone] | | [facility] | Blvd[address] | | | | LABORATORY | | | | + + + + + | REFERENCE LAB | [address] [facility] | [place] [address] | | | [facility] | Blvd. | [...] | LAB | | | | [facility] | | [facility] | | | | [place] [address] | | LABORATORY | | + + [...] | | | | | with both AK-3 and | | | | | | [...] | | 3 Antibody | performed by [facility]IT, | | LAB | | | | [address], | | [facility] | | | | [facility] [address] | | LABORATORY | | + + + + + + + + | Specimen | + + | Blood | + + + + + + + | Performing | Address | City/State/Zipcode | Phone Number | | Organization | | | | + + + + + | REFERENCE LAB | [address] [place] [address] | [place] [address] | [phone] | | [facility] | Blvd. | | | | LABORATORY | | | | + + + + + | REFERENCE LAB | [address] [place] [address] | [place] [address] | | | [facility] | Blvd. | [...] | | | COMPLEMENT | performed at [facility];[address] | | LAB | | | | [place] | | [facility] | | | | Blvd;[place] [address] | | LABORATORY | | + + + + + + + + | Specimen | + + | Blood | + + + + + + + | Performing | Address | City/State/Zipcode | Phone Number | | Organization | | | | + + + + + | REFERENCE LAB | [address] [place] [address] | [place] [address] | [phone] | | [facility] | Blvd. | | | | LABORATORY | | | | + + + + + | REFERENCE LAB | [address] [facility] | [place] [address] | | | [facility] | Blvd. | [...] REFERENCE | | | | performed at [facility];[address] | | LAB | | | | [place] | | [facility] | | | | Blvd;[place] [address] | | LABORATORY | | + + + + + + + + | Specimen | + + | Blood | + + + + + + + | Performing | Address | City/State/Zipcode | Phone Number | | Organization | | | | + + + + + | REFERENCE LAB | [address] [place] [address] | [place] [address] | [phone] | | [facility] | Blvd[address] | | | | LABORATORY | | | | + + + + + | REFERENCE LAB | [address] [place] [address] | [place] [address] | | | [facility] | Blvd. | [...] [place] | | | | | | [address] | | | | + + + + + + + + | Specimen | + + | Blood | + + + + + + + | Performing | Address | City/State/Zipcode | Phone Number | | Organization | | | | + + + + + | REFERENCE LAB | [address] [facility] | [place] [address] | [phone] | | [facility] | Blvd[address] | | | | LABORATORY | | | | + + + + + | REFERENCE LAB | [address] [place] [address] | [place] [address] | | | [facility] | Blvd. | [...] criterion | | | | | | ([employer] | | | | | [...] | | | | | validated by [employer] | | | | | | [employer] This | | | | | [...] by | | | | | | [facility] | | | | | | Inc.June | | | | | | 2018 dsDNA (nDNA) | | | | | | Scrn by [employer] will | | | | | | be made non-orderable. | | | | | | [facility] offers [id number] | | | | | | dsDNA Crithidia madina | | | | | | IFA. For further | | | | | | information, please | | | | | | contact your local | | | | | | [facility] | | | | | | Customer Experience Manager.Testing | | | | | | performed at [employer] | | | | | | [facility], [address] | | | | | | [facility], [facility] | | | | | | [address],[place], [place] | | | | | | [address]. | | | | + + + + + + + + | Specimen | + + | Blood | + + + + + + + | Performing | Address | City/State/Zipcode | Phone Number | | Organization | | | | + + + + + | REFERENCE LAB | [address] [place] [address] | [place] [address] | [phone] | | [facility] | Blvd. | | | | LABORATORY | | | | + + + + + | REFERENCE LAB | [address] [place] [address] | [place] [address] | | | [facility] | Blvd. | [...] REFERENCE | | | | performed at [facility];[address] | | LAB | | | | [place] | | [facility] | | | | Blvd;[place] [address] | | LABORATORY | | + + + + + + + + | Specimen | + + | Blood | + + + + + + + | Performing | Address | City/State/Zipcode | Phone Number | | Organization | | | | + + + + + | REFERENCE LAB | [address] [place] [address] | [place] [address] | [phone] | | [facility] | Blvd. | | | | LABORATORY | | | | + + + + + | REFERENCE LAB | [address] [place] [address] | [place] [address] | | | [facility] | Blvd. | [...] | | | | | performed at [facility];[address] | | | | | | [facility] | | | | | | Blvd;[place] [address] | | | | | | | | | | + + + + + + + + | Specimen | + + | Blood | + + + + + + + | Performing | Address | City/State/Zipcode | Phone Number | | Organization | | | | + + + + + | REFERENCE LAB | [address] [facility] | [place] [address] | [phone] | | [facility] | Blvd. | | | | LABORATORY | | | | + + + + + | REFERENCE LAB | [address] [facility] | [place] [address] | | | [facility] | Blvd. | [...] | [employer] | MODA | [id number] | | [phone] | | Medica | | MEDICAID HMO | HEALTH | | 019-Pr | 1 | | id | | | MDCD | | esent | | | | | | [place] | | | | | | + +--------+ +--------+ +---------+--------+ | PREMERA | PREMER | [id number] | 08/12/19 | [phone] | | PPO | | | A | 3 | 17-Pre | 0 | | | | | PREFER | | sent | | | | | | RED | | | | | | + +--------+ +--------+ +---------+--------+ | [employer] | MODA | [id number] | | [phone] | | Medica | [...] | | | 1 (Home) | [place] [address] | + +--------+ +--------+ + + | Aaron Latham | Person | Self | [birth year] | [address] | | | al/Fam | | 1960 | [phone] | [address] [place], | | | [place]netta | | | 1 (Home) | [place] [address] | + +--------+ +--------+ + + | Aaron Latham | Person | Self | [birth year] | | [address] | | | al/Fam | | 1960 | [phone] | [address] [place], | | | [place] | | | 1 (Home) | [place] [address] | + +--------+ +--------+ + + Advance Directives + + + + + | Type | Date Recorded | Patient | Explanation | | | | Customer Experience Manager | | + + + + + | Power of | | | | | Candlemaker | | | | + + + + + | Advance | 08/09/2017 | | At Doctor & will with Technical Editor | | Directive | 12:18 PM | [...]
--- OUTSIDE RECORDS SUMMARY | ~2019-07-10 | XMS | Encounter Summary ---
Demographics + + + | Address | [address] | | | [place] [address] | + + + | Home Phone [...] [place] | | | | | [address] | | + + + + + Care Team Providers + +------+ + | Care Welding Robot Operator Name | Role | Phone | [...] | | | | | | [place] | | | | | | | COLONOSCOPY, | | | | | | | FLEX, | | | | | | | W/BIOPSY [place] | | | | | | | | | | | | | | COLONOSCOPY, | | | | | | | YUNI URIBE BY | | | | | | | SNARE | | | | | | | TECHNIQUE | | | | | | | [place] | | | | | | | [...] | | | | | | [place] ANES LWR | | | | | | | INTST NDSC | | | | | | | NOS | | | +--------+--------+ + + + + Encounter Details +--------+ + + + + | Date | Type | Department | Care Team | Description | +--------+ + + + + | 07/01/ | Hospital | [facility] | [facility] | Procedural Unit | MD Charles [address] | | | | | ([facility]) at [facility] [address] | | | | | SARAH Joseph | [facility] [place] | | | | | Mailcode: [place] | [address] | | | | | [facility] and | [phone] | | | | | [facility] | | | | | | [facility] [place] | | | | | | [address] | | | | | | [phone] | | | +--------+ + + + [...] documented in this encounter Discharge Instructions Instructions Misty Bonilla RN - 07/01/2019Home Care Instructions after [...] Call the endoscopy department toll free [phone]. [phone] or After business hours or on weekends and holidays call the Hospital Care Management Coordinator toll free [phone] Ext. [phone] or and have the GI doctor nutrition program instructor paged. The provider who performed your procedure: [...] 10:15 AM PST PRE PROCEDURE NOTE: MR# [id number] Subjective: Aaron Latham is a 59 y.o. [...] | | 2019 | Visit | | [address] | | | | | | [address] | | | | | | [place], [place] | | | | | | [address] | | | | | | [phone] | | | | | | | [...] Negative for | | OF | Kee Liz | | | high grade dysplasia or | | PATHOLOGY | Arsen, | | | Zev Snow, | | | ,PhD on | | | - Surgical Pathology | | | 07/03/2019 at | | | FellowChrisesther | | | 10:15 AM | | | MD Arsen, PhD | | | | | | | | | | | | PathologistPathology, | | | | | | [facility] | | | | | | University electronic | | | | | | [...] | [facility] | | | | [facility]) and medical record | | HEALTH + | | | | number [id number].A. | | HEALING | | | | [...] | + + + + + | [facility] | [address] | [place] [address] | | | PATHOLOGY | [address] | | | + + + + + | [facility] | [address] | [place] [address] | | | SERVICES, [place] [facility] | | | | | HE[facility] + HEALING | | | | + + + + + COLONOSCOPY (07/01/2019 10:08 AM PST) + + | Specimen | + + | | + + + + + | Narrative | Performed At | + + + | MRN: | [facility] | | [id number] Date: 07/01/2019Patient Name: Aaron Justin #: | ENDOSCOPY | | [id number] of : 1960SN: [id number] Type: | | | AmbulatoryRoom: Endo 5Procedure: | | | ColonoscopyIndications: Therapeutic procedure for known | | | colon polypPatient Profile: This is a 59 year old male. Refer to | | | note in patient chart for | | | documentation of history and physical.Providers: CHARLES | | | MD PEDRO (Doctor), CATARINA SOLIMAN RN | | | (Nurse), NGHIA YBARRA (Forestry Hunter)Referring MD: CHARLES | | | MASON VASQUEZequesting [...] the procedure. The Olympus | | | [id number] Colonoscope #[id number] was introduced | | | through the [...] | | any questions, please contact the store operations associate. | | | - Clear liquid diet [...] | 07/01/20 | | | | | (PROVENTIL,VENTOLIN) 2.5 mg /3 mL | | 19 [...] | | | 0922, Until Sat07/01/19 at 210, | | | sore oropharynx | | [...] dose, | | | Starting Sat07/01/19 at 1055, | | | Until Sat07/01/19 at 2105, | | | systolic blood pressure less than | | | 90 mmHg. 1st line | | + +---+ | | | + +---+ documented in this encounter
--- OUTSIDE RECORDS SUMMARY | ~2019-07-10 | XMS | Encounter Summary ---
Demographics + + + | Address | [address] | | | [place] [address] | + + + | Home Phone | | + + + | Preferred Language | Unknown | + + + | Marital Status | Single | + + + | Anabaptism Affiliation | 1077 | + + + [...] Team Providers + +------+ + | Care Physicist Solid Earth Name | Role | Phone | + [...] PHYSIATRY [address] | MD [address] [place] [address] | | | | | [place], | [place], [place] | | | | | [place] [address] | [address] | | | | | [phone] | | | +--------+ + + + [...] [address] | | | | | | [place] [address] | | | | | | [phone] | | | | | | | | +--------+---------+ + + + | 12/02/ | Office | Cardiology | Lorraine Clifton DO | | | 2019 | Visit | | [address] | | | | | | [place] | | | | | | [address] | | | | | | | | +--------+---------+ + + + | 12/13/ | Office | Nephrology | Jewel Ulloa MD | | | 2019 | Visit | | [address] | | | | | | [address] [place] | | | | | | [address] | | | | | | | | +--------+---------+ + + + documented as of this encounter Visit Diagnoses Not on filedocumented in this encounter"
--- OUTSIDE RECORDS SUMMARY | ~2019-07-10 | XMS | Encounter Summary ---
Demographics + + + | Address | [address] | | | [place] [address] | + + + | Home Phone [...] Providers + +------+ + | Care Field Control Inspector Name | Role | Phone | [...] PHYSIATRY [address] | MD [address] | | | | | [place], | [place], [place] | | | | | [place] [address] | [address] | | | | | [phone] | | | +--------+ + + + [...] [address] | | | | | | [place] [address] | | | | | | [phone] | | | | | | | | +--------+---------+ + + + | 12/02/ | Office | Cardiology | Lorraine Clifton DO | | | 2019 | Visit | | [address] | | | | | | [place] | | | | | | [address] | | | | | | | | +--------+---------+ + + + | 12/13/ | Office | Nephrology | Jewel Ulloa MD | | | 2019 | Visit | | [address] | | | | | | [address] [place] | | | | | | [address] | | | | | | | | +--------+---------+ + + + documented as of this encounter Visit Diagnoses Not on filedocumented in this encounter"
--- OUTSIDE RECORDS SUMMARY | ~2019-07-10 | XMS | Encounter Summary ---
Demographics + + + | Address | [address] | | | [place] [address] | + + + | Home Phone [...] Author + + + | Author | [facility] | + + + | Organization | [facility] | + + + | Address | Unknown | + + + | Phone | Unavailable | + + + Support + + + + + | Name | Relationship | Address | Phone | + + + + + | Toby L[place] | ANNA | [address] | | | | | [place] | | | | | [address] | | + + + + + Care Team Providers + +------+ + | Care Staff Submarine Warfare Officer Name | Role | Phone | [...] | Adenomatous | [address] | [address] | | | | | polyp of | MD Matt | [address] | | | | | ascending | [address] | Rosario Robles | | | | | colon | [address] | Mailcode: | | | | | Procedures | Rd | [address] | | | | | CONSULT TO | [place] | [place] | | | | | GI PROCEDURE | | [facility] [address] | | | | | UNIT: | Phone: | [place], | | | | | COLONOSCOPY | [phone] | [place] [address] | | | | | [place] [address] [address] | Fax: | Phone: | | | | | INTST NDSC | [phone] | [phone] | | | | | NOS [place] | | Fax: | | | | | COLONOSCOPY, | | [phone] | | | | | FLEX, | | | | | | | W/BIOPSY [place] | | | | | | | | | | | | | | COLONOSCOPY, | | | | | | | REMV LESN BY | | | | | | | SNARE | | | | | | | TECHNIQUE | | | | | | | [place] | | | | | | [...] + + + + | 02/09/ | Ball Rolling Machine Operator | Digestive Health | [address] | Adenomatous polyp of | | 2019 | | Center at [facility] 4th | MD Matt [address] [facility] | ascending colon | | | | Floor [address] | [address] | (Primary Dx) | | | | [facility] [address] | [place], [place] | | | | | Mailcode: CH6D | [address] | | | | | [facility] | [phone] | | | | | [place], [place] | | | | | | [address] | | | | | | [phone] | | | +--------+ + + + [...] Rd | | | | | | [place], [place] | | | | | | [address] | | | | | | [phone] | | | | | | | | +--------+---------+ + + + documented as of this encounter Visit Diagnoses + + | Diagnosis | + + | Adenomatous polyp of ascending colon - Primary | + + documented in this encounter"
--- OUTSIDE RECORDS SUMMARY | ~2019-07-10 | XMS | Encounter Summary ---
Demographics + + + | Address | [address] | | | [place] [address] | + + + | Home Phone | | + + + | Preferred Language | Unknown | + + + | Marital Status | Single | + + + | Shinto Affiliation | LDS | + + + [...] [place] | | | | | [address] | | + + + + + Care Team Providers + +------+ + | Care Ball Truing Machine Operator Name | Role | Phone | + +------+ + | Sarah Carroll MD | PCP | | + +------+ + Encounter Details +--------+ + + + + | Date | Type | Department | Care Team | Description | +--------+ + + + + | 02/09/ | Transcribe | [facility] | Transcribe | | | 2019 | Orders | [facility] [address] | Encounter, Provider, | | | | | Nima Grijalva Mailcode: | [address] | | | | | [facility] | [place] [address] | | | | | Health and Healing, | | | | | | [address] | | | | | | [place], [place] | | | | | | [address] | | | | | | [phone] | | | +--------+ + + + [...] | | 2019 | Visit | | [address] | | | | | | [address] | | | | | | [place], [place] | | | | | | [address] | | | | | | [phone] | | | | | | | [...] + | MRN: | [facility] | | [id number] Date: 04/14/2019Patient Name: Aaron Justin #: | ENDOSCOPY | | [id number] of : 1960SN: [id number] Type: | | | AmbulatoryRoom: Endo 5Procedure: [...] RN (Nurse), NGHIA YBARRA | | | (Painting Supervisor), PADMAJA ROSS | | | (Painting Supervisor)Referring MD: JACK TINOCO JR, | | | [...] the procedure. The Olympus | | | [id number] Colonoscope #[id number] was introduced | | | through the [...] questions, please contact the | | | rouge sifter and miller. - Stop | | | anticoagulation (coumadin) [...]
--- OUTSIDE RECORDS SUMMARY | ~2019-07-10 | XMS | Clinical Summary ---
Demographics + + + | Address | [address] | | | [place] [address] | + + + | Home Phone [...] Author + + + | Author | [facility] | + + + | Organization | [facility] | + + + | Address | Unknown | + + + | Phone | Unavailable | + + + Support + + + + + | Name | Relationship | Address | Phone | + + + + + | Toby Latham | ECON | [address] [address] | | | | | [place] | | | | | [address] | | + + + + + Care Team Providers + +------+ + | Care Watch Engine Operator Name | Role | Phone | + +------+ + | Sarah Carroll MD | PCP | | + +------+ + Source Comments [facility] is fully live on both [facility] Ambulatory and [facility] InPatient.[facility] Allergies No Known Allergies Medications + + [...] +---------+------+------+-------+ | torsemide 10 mg | Take 10 [...] | Activ | | oral tablet | four times [...] | | + + + +---------+------+------+-------+ | polyethylene | Mix 1 packet and | 60 | 0 | 06/13 | 07/13 | Activ | | glycol (MIRALAX) 17 | take orally two | packet | | 0/20 | 0/20 | e | | gram oral powder in | times daily. | | | 19 | 19 | | | packetIndications: | Indications: | | | | | | | bowel evacuation | emptying of the | | | | | | | | bowel | | | | | | + + + +---------+------+------+-------+ | peg-electrolyte | Take 8,000 mL by | 8000 mL | 0 | 06/12 | 06/12 | Expir | | [phone] -5.86 | mouth once for 1 | | | 10/29 | 3 | ed | | gram oral recon | dose. Take 8000 mL | | | 19 | 19 | | | solnIndications: | once. Begin drinking | | | | | | | [...] | bowel | | | | | | + [...] (CHF) | 02/10/2016 | + + + Encounters +--------+ + + + + | Date | Type | Specialty | Care Team | Description | +--------+ + + + + | 07/06/ | Telephone | Gastroenterology | Pedro, | Follow-up Plan | | 2018 | | | MD Charles | (colonscopy f/u) | +--------+ + + + + | 07/02/ | Telephone | Gastroenterology | Pedro | Telephone follow-up | | 2018 | | | MD Charles | | +--------+ + + + + | 07/01/ | Anesthesia | Gastroenterology | Adolfo Ace, | | | 2019 | Event | | MD Ruiz November, | | | | | | RN | | +--------+ + + + + | 07/01/ | Hospital | | Pedro, | | | 2019 | Encounter | | MD Charles | | +--------+ + + + + | 07/01/ | Transcribe | Gastroenterology | Transcribe | | | 2018 | Orders | | Encounter, Provider, | | | | | | | | +--------+ + + + + | 07/01/ | Public Safety Officer | Gastroenterology | Pedro, | Constipation, | | 2018 | | Diane Soto MD | unspecified | | | | | | constipation type | | | | | | (Primary Dx) | +--------+ + + + + | 07/01/ | Public Safety Officer | Gastroenterology | Reynaana, | Polyp of colon, | | 2018 | | | MD Charles | unspecified part of | | | | | | colon, unspecified | | | | | | type (Primary Dx) | +--------+ + + + + | 07/01/ | Travel | | | | | 2018 | | | | | +--------+ + + + + | 06/26/ | Telephone-S | Pre-operative | | Pre-operative | | 2018 | cheduled | Medicine | | evaluation | +--------+ + + + + | 05/27/ | Hospital | Radiology | Milton Mora, | | | 2018 | Encounter | | PA-Ashley | | +--------+ + + + + | 05/27/ | Office | Spine | Milton Mora, | Foot drop, bilateral | | 2018 | Visit | | PA-C | (Primary Dx); CKD | | | | | | (chronic kidney | | | | | | disease), stage III | | | | | | (HCC); Malignant | | | | | | neoplasm of colon, | | | | | | unspecified part of | | | | | | colon (HCC); Ataxia; | | | | | | Lumbar | | | | | | radiculopathy; | | | | | | Lumbar stenosis with | | | | | | neurogenic | | | | | | claudication; Left | | | | | | hip pain | +--------+ + + + + | 05/27/ | Travel | | | | | 2019 | | | | | +--------+ + + + + | 04/15/ | Telephone | Gastroenterology | Pedro | Telephone follow-up | | 2018 | | | MD Charles | | +--------+ + + + + | 04/14/ | Anesthesia | Gastroenterology | Paddy Pearson, | | | 2018 | Event | | DO Geneva Mcacll | | | | | | [place]OR[place]NA Pinon | | +--------+ + + + + | 04/14/ | Hospital | | Milad Ludwig | | | 2018 | Encounter | | MD Steven | | +--------+ + + + + | 04/14/ | Transcribe | Gastroenterology | Transcribe | | | 2018 | Orders | | Elvira Davies, | | | | | | | | +--------+ + + + + | 04/14/ | Public Safety Officer | Gastroenterology | Pedro, | Polyp of colon, | | 2018 | | | MD Charles | villous adenoma | | | | | | (Primary Dx) | +--------+ + + + + | 09/02/ | Travel | | | | | 2019 | | | | | +--------+ + [...] | | 2019 | Visit | | [address] | | | | | | [address] | | | | | | [place], [place] | | | | | | [address] | | | | | | [phone] | | | | | | | | +--------+---------+ + + + + + + + + | Health Maintenance | Due Date | Last Done | Comments | + + + + + | Pneumococcal | | | | | vaccination (1 of 3 | 7 | | | | - [...] + + from Last 3 Months Results SURGICAL PATHOLOGY (07/01/2019 12:46 PM PST) [...] | | ,PhD on | | | MD - Surgical Pathology | | | 07/03/2019 at | | | FellowChristian | | | 10:15 AM | | | MD Arsen, PhD | | | | | | | | | | | | PathologistPathology, | | | | | | [facility] | | | | | | [facility] electronic | | | | | | [...] | [facility] | | | | [facility]) and medical record | | HEALTH + | | | | number [id number]. | | HEALING | | | | [...] | + + + + + | [facility] DEPARTMENT OF | [address] | [place] [address] | | | PATHOLOGY | NIKKI PASTRANA | | | + + + + + | [facility] LABORATORY | [address] | [place] [address] | | | [facility] | | | | | HEALTH + HEALING | | | | + + + + + COLONOSCOPY (07/01/2019 10:08 AM PST) + + | Specimen | + + | | + + + + + | Narrative | Performed At | + + + | MRN: | [facility] | | [id number] Date: 07/01/2019Patient Name: Aaron Justin #: | ENDOSCOPY | | [id number] of : 1960SN: [id number] Type: | | | AmbulatoryRoom: Endo 5Procedure: | | | ColonoscopyIndications: Therapeutic procedure for known | | | colon polypPatient Profile: This is a 59 year old male. Refer to | | | note in patient chart for | | | documentation of history and physical.Providers: CHARLES | | | MD PEDRO (Doctor), CATARINA SOLIMAN RN | | | (Nurse), NGHIA YBARRA (Heel Seat Filler)Referring MD: CHARLES | | | MASON VASQUEZequesting [...] the procedure. The Olympus | | | CF-[id number] Colonoscope #[id number] was introduced | | | through the [...] | | any questions, please contact the digital sales assistant. | | | - Clear liquid diet [...] + + | Performing | Address | City[facility]State[facility] | Phone Number | | Organization | | | | + +---------+ + + | [facility] | | | | + +---------+ + + X-RAY HIP 2 VIEWS LEFT W/ PELVIS [...] Preliminary: Chris Chicas MD Dictation initiated: Chris Chicas MD 05/27/2019 12:41 PM | | | |Incompletely [...] | | | + +---------+ + + PROCEDURE NOTE (04/14/2019 3:00 PM PDT)INR (PT), POC (04/14/2019 12:07 PM PDT) + +-------+ + + + | Component | Value | Ref Range | Performed | Pathologist | | | | | At | Signature | + +-------+ + + + | PROTHROMBIN | 1.1 | 0.9 - 1.2 INR | [facility], | | | TIME | | [...] | + + + + + | [facility] | [address] | [place] [address] | | | OF CARE TESTS | | | | + + + + + COLONOSCOPY (04/14/2019 11:50 AM PDT) + + | Specimen | + + | | + + + + + | Narrative | Performed At | + + + | MRN: | [facility] | | [id number] Date: 04/14/2019Patient Name: Aaron Justin #: | ENDOSCOPY | | [id number] of : 1960SN: [id number] Type: | | | AmbulatoryRoom: Endo 5Procedure: [...] | | CHARLES VASQUEZ MD (Doctor), FLAVIO DUTTA RN | | | (Nurse), GENEVA FLROES RN (Nurse), NGHIA YBARRA | | | (Heel Seat Filler), Revaluate | | | (Heel Seat Filler)Referring MD: JACK TINOCO JR, | | | [...] the procedure. The Olympus | | | CF-[id number] Colonoscope #[id number] was introduced | | | through the [...] questions, please contact the | | | digital sales assistant. - Stop | | | anticoagulation (coumadin) [...] | | | + +---------+ + + from Last 3 Months Insurance + +--------+ +--------+-------+---------+--------+ | Payer | Benefi | Subscriber | Effect | Phone | Address | Type | | | t Plan | ID | ascencion | | | | | | / | | Dates | | | | | | Group | | | | | | + +--------+ +--------+-------+---------+--------+ | TRACTOR OPERATOR MEDICAID | TRACTOR OPERATOR | xxxxxxxx | 08/18/19 | | | Medica | | | [place] | | 19-Pre | | | id | | | [place] | | sent | | | | + +--------+ +--------+-------+---------+--------+ + +--------+ +--------+ + + | Guarantor [...] | | 1960 | [phone] | [address] [place] | | | renet[place] | | | 1 (Home) | [phone] | + +--------+ +--------+ + +
--- OUTSIDE RECORDS SUMMARY | ~2019-07-10 | XMS | Encounter Summary ---
Demographics + + + | Address | [address] | | | [place] [address] | + + + | Home Phone [...] Team Providers + +------+ + | Care Gm Video Name | Role | Phone | + [...] | MED CTR EXTERNAL | MD Kaitlin [address] | | | | | IMAGING | Terry SMITH | | | | | [phone] | [place] [address] | | +--------+ + + + + [...] | | | | | [place] [address] | | | | | | [phone] | | | | | | | | +--------+---------+ + + + | 12/02/ | Office | Cardiology | Lorraine Clifton DO | | | 2019 | Visit | | [address] | | | | | | [place] | | | | | | [address] | | | | | | | | +--------+---------+ + + + | 12/13/ | Office | Nephrology | Jewle Ulloa MD | | | 2019 | Visit | | [address] [facility] | | | | | | [address] [place], [place] | | | | | | [address] | | | | | | | [...]
--- OUTSIDE RECORDS SUMMARY | ~2019-07-10 | XMS | Encounter Summary ---
Demographics + + + | Address | [address] | | | [place] [address] | + + + | Home Phone | | + + + | Preferred Language | Unknown | + + + | Marital Status | Single | + + + | Religion Affiliation | 1077 | + + + | Race | Unknown | + + + | Ethnic Group | Unknown | + + + Author + + + | Author | [facility] | | | and [place] | + + + | Organization | [facility] | | [...] Team Providers + +------+ + | Care College [employer] Registrar Name | Role | Phone | + +------+ + | Sarah Carroll MD | PCP | | + +------+ + Encounter Details +--------+ + + + + | Date | Type | Department | Care Team | Description | +--------+ + + + + | 05/21/ | Orders Only | [facility] | Patrice Cross MD | Renal mass (Primary | | 2018 | | [address] | [address] | Dx); Pre-operative | | | | [address] | [address] [place] | cardiovascular | | | | [place] | [address] | examination; | | | | [address] | | Pre-operative | | | | [phone] | | laboratory | | | | [...] [address] | | | | | | [place] [address] | | | | | | [phone] | | | | | | | | +--------+---------+ + + + | 12/02/ | Office | Cardiology | Lorraine Clifton DO | | | 2019 | Visit | | [address] | | | | | | [place] | | | | | | [address] | | | | | | | | +--------+---------+ + + + | 12/13/ | Office | Nephrology | Jewel Ulloa MD | | | 2019 | Visit | | [address] | | | | | | [address] [place] | | | | | | [address] | | | | | | | [...]
--- OUTSIDE RECORDS SUMMARY | ~2019-07-10 | XMS | Clinical Summary ---
Demographics + + + | Address | [address] [address] | | | [place] [address] | + + + | Home Phone | | + + + | Preferred Language | Unknown | + + + | Marital Status | Single | + + + | Gnosticism Affiliation | 1077 | + + + | Race | Unknown | + + + | Ethnic Group | Unknown | + + + Author + + + | Author | [facility] (Historical as of | | | 03-28-19) | + + + | Organization | [facility] (Historical as of | | | 03-28-19) [...] [place], | | | | | [place] [address] | | + + + + + Care Team Providers + +------+ + | Care Pump Operator Name | Role | Phone | [...] Vaccine: Influenza | | | | | (#1) | 9 | | | + + [...] +------+-------+ + | MEDICAID | [place] | [id number] | | | [address] | | | [place] | | | | [place] | | | [place] | | | | [address] | | | MITIGATION SUPERVISOR | | | | | + +--------+ [...] | | al/Fam | | 1 | [phone] [address] [place], | | | [place] | | | [address] | [place] [address] | + +--------+ +--------+ + +
--- OUTSIDE RECORDS SUMMARY | ~2019-07-10 | XMS | Encounter Summary ---
Demographics + + + | Address | [address] | | | [place] [address] | + + + | Home Phone | | + + + | Preferred Language | Unknown | + + + | Marital Status | Single | + + + | Mandaeism Affiliation | LDS | + + + [...] [place] | | | | | [address] | | + + + + + Care Team Providers + +------+ + | Care Silver Wrapper Name | Role | Phone | + [...] | 2019 | cheduled | [facility] at | | evaluation | | | | [facility] | | | | | | [address] | | | | | | Mail Code: OC8PM | | | | | | [facility] | | | | | | and Healing, | | | | | | [address] | | | | | | [place], [place] | | | | | | [address] | | | | | | [phone] | | | +--------+ + + + [...] have not received them, contact Endoscopy at [phone]. Eating/Drinking Instructions: Follow instructions provided by [facility] Endoscopy. You should have received these instruction s by mail or email. If you have not received them, contact Endoscopy at [phone]. General Medications Instructions Oral iron: If you [...] /Eliquis, rivaroxaban/Xarelto, dabigatran/Pradaxa, or Plavix/Brilinta, your prescriber ([facility] doctor, radiological engineer, anticoagulation clinic, ex.) should be the one [...] of your procedu re. Procedure check-in location: [facility] 2 Procedure Check in Time: [...] ch as Uber/Lyft), or public transportation. An Uber/Lyft/driver's education instructor does not count as the r esponsible [...] it is after office hours, call the [facility] freezer machine operator at [phone] and ask them to page the on-c [...] Rd | | | | | | [place], [place] | | | | | | [address] | | | | | | [phone] | | | | | | | | +--------+---------+ + + + documented as of this encounter Visit Diagnoses Not on filedocumented in this encounter
--- OUTSIDE RECORDS SUMMARY | ~2019-07-10 | XMS | Encounter Summary ---
Demographics + + + | Address | [address] | | | [place] [address] | + + + | Home Phone | | + + + | Preferred Language | Unknown | + + + | Marital Status | Single | + + + | Hinduism Affiliation | LDS | + + + [...] [place] | | | | | [address] | | + + + + + Care Team Providers + +------+ + | Care Publicity Agent Name | Role | Phone | [...] | | 2019 | Visit | | [address] | | | | | | [address] | | | | | | [place], [place] | | | | | | [address] | | | | | | [phone] | | | | | | | | +--------+---------+ + + + documented as of this encounter Visit Diagnoses Not on filedocumented in this encounter"
--- OUTSIDE RECORDS SUMMARY | ~2019-07-10 | XMS | Encounter Summary ---
Demographics + + + | Address | [address] | | | [place] [address] | + + + | Home Phone [...] Team Providers + +------+ + | Care Feather Sawyer Name | Role | Phone | + [...] | | [address] [place] [address] | [address] [place], [place] | | | | | [address] | [address] | | | | | [phone] | | | +--------+ + + + [...] | | | | | | [place] [address] | | | | | | [phone] | | | | | | | | +--------+---------+ + + + | 12/02/ | Office | Cardiology | Lorraine Clifton DO | | | 2019 | Visit | | [address] | | | | | | [place] | | | | | | [address] | | | | | | | | +--------+---------+ + + + | 12/13/ | Office | Nephrology | Jewel Ulloa MD | | | 2020 | Visit | | [address] [facility] | | | | | | [address] [place] | | | | | | [address] | | | | | | | | +--------+---------+ + + + documented as of this encounter Visit Diagnoses Not on filedocumented in this encounter"
--- OUTSIDE RECORDS SUMMARY | ~2019-07-10 | XMS | Encounter Summary ---
Demographics + + + | Address | [address] | | | [place] [address] | + + + | Home Phone [...] [place] | | | | | [address] | | + + + + + Care Team Providers + +------+ + | Care Web Assistant Name | Role | Phone | [...] 04/15/ | Telephone | [facility] | [place], | Telephone follow-up | | 2019 | | [place] [address] | MD Charles [address] | | | | | [address] Mailcode: | Jeffery De La Torre Rosario | | | | | [address] [place] [address] | [place], [place] | | | | | Health and Healing, | [address] | | | | | [address] | [phone] | | | | | [place], [place] | | | | | | [address] | | | | | | [phone] | | | +--------+ + + + [...] 2019 | Visit | | [address] | | | | | | [address] | | | | | | [place], [place] | | | | | | [address] | | | | | | [phone] | | | | | | | | +--------+---------+ + + + documented as of this encounter Visit Diagnoses Not on filedocumented in this encounter"
--- OUTSIDE RECORDS SUMMARY | ~2019-07-10 | XMS | Encounter Summary ---
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 | (antinuclear | | | | [place] | | antibody); Pain in | | | | [address] | | joint, multiple | | | | [phone] | | sites | +--------+ + + [...] [place] | | | | | | [facility] [address] | | | | | | [phone] | | | | | | | | +--------+---------+ + + + | 12/02/ | Office | Cardiology | Lorraine Clifton DO | | | 2019 | Visit | | [address] | | | | | | [place] | | | | | | [address] | | | | | | | | +--------+---------+ + + + | 12/13/ | Office | Nephrology | Jewel Ulloa MD | | | 2019 | Visit | | [address] [facility] | | | | | | [address] [place] | | | | | | [address] | | | | | | | [...] - 1.030 | REFERENCE | | | [place], | | | LAB | | | [...] REFERENCE | | | | performed at [facility];[address] | | LAB | | | | [place] | | [facility] | | | | [address];[place] [address] | | LABORATORY | | + + + + + + + + | Specimen | + + | Urine | + + + + + + + | Performing | Address | City/State/Zipcode | Phone Number | | Organization | | | | + + + + + | REFERENCE LAB | [address] [place] [address] | [place] [address] | [phone] | | [facility] | Bl[address] | | | | LABORATORY | | | | + + + + + | REFERENCE LAB | [address] [facility] | [place] [address] | | | [facility] | [address] | [...] LAB | | | | performed at [facility];[address] | | [facility] | | | | [place] | | LABORATORY | | | | Blvd;[place] [address] | | | | | | | | | | + + + + + + + + | Specimen | + + | | + + + + + + + | Performing | Address | City/State/Zipcode | Phone Number | | Organization | | | | + + + + + | REFERENCE LAB | [address] [place] [address] | [place] [address] | [phone] | | [facility] | Bl[address] | | | | LABORATORY | | | | + + + + + | REFERENCE LAB | [address] [place] [address] | [place] [address] | | | [facility] | Bl[address]. | [...] | | | urine | performed at [facility];[address] | | [facility] | | | | [facility] | | LABORATORY | | | | Blvd;[place] [address] | | | | | | | | | | + + + + + + + + | Specimen | + + | | + + + + + + + | Performing | Address | City/State/Zipcode | Phone Number | | Organization | | | | + + + + + | REFERENCE LAB | [address] [place] [address] | [place] [address] | [phone] | | [facility] | Blvd[address] | | | | LABORATORY | | | | + + + + + | REFERENCE LAB | [address] [place] [address] | [place] [address] | | | [facility] | Bl[address] | [...] | | | RATIO,URINE | performed at [facility];[address] | | LAB | | | | [place] | | [facility] | | | | Bl[address];[place] [address] | | LABORATORY | | + + + + + + + + | Specimen | + + | Urine | + + + + + + + | Performing | Address | City/State/Zipcode | Phone Number | | Organization | | | | + + + + + | REFERENCE LAB | [address] [facility] | [place] [address] | [phone] | | [facility] | Bl[address] | | | | LABORATORY | | | | + + + + + | REFERENCE LAB | [address] [facility] | [place] [address] | | | [facility] | Bl[address] | [...] REFERENCE | | | | performed at [facility];[address] | | LAB | | | | [place] | | [facility] | | | | Blvd;[place] [address] | | LABORATORY | | + + + + + + + + | Specimen | + + | Blood | + + + + + + + | Performing | Address | City/State/Zipcode | Phone Number | | Organization | | | | + + + + + | REFERENCE LAB | [address] [place] [address] | [place] [address] | [phone] | | [facility] | Blvd[address] | | | | LABORATORY | | | | + + + + + | REFERENCE LAB | [address] [place] [address] | [place] [address] | | | [facility] | Bl[address]. | [...] | | | Absolute | performed at [facility];[address] | K/uL | LAB | | | | [place] | | [facility] | | | | Bl[address];[place] [address] | | LABORATORY | | + + + + + + + + | Specimen | + + | Blood | + + + + + + + | Performing | Address | City/State/Zipcode | Phone Number | | Organization | | | | + + + + + | REFERENCE LAB | [address] [place] [address] | [place] [address] | [phone] | | [facility] | Bl[address] | | | | LABORATORY | | | | + + + + + | REFERENCE LAB | [address] [place] [address] | [place] [address] | | | [facility] | Bl[address]. | [...] | | | | | performed at [facility];[address] | | | | | | [facility] | | | | | | vd;[place] [address] | | | | | | | | | | + + + + + + + + | Specimen | + + | Blood | + + + + + + + | Performing | Address | City/State/Zipcode | Phone Number | | Organization | | | | + + + + + | REFERENCE LAB | [address] [place] [address] | [place] [address] | [phone] | | [facility] | Blvd[address] | | | | LABORATORY | | | | + + + + + | REFERENCE LAB | [address] [place] [address] | [place] [address] | | | [facility] | Blvd. | [...] REFERENCE | | | | performed at [facility];[address] | | LAB | | | | [place] | | [facility] | | | | Blvd;[place] [address] | | LABORATORY | | + + + + + + + + | Specimen | + + | Blood | + + + + + + + | Performing | Address | City/State/Zipcode | Phone Number | | Organization | | | | + + + + + | REFERENCE LAB | [address] [facility] | [place] [address] | [phone] | | [facility] | Bl[address] | | | | LABORATORY | | | | + + + + + | REFERENCE LAB | [address] [facility] | [place] [address] | | | [facility] | Bl[address] | [...] REFERENCE | | | | performed at [facility];[address] | | LAB | | | | [place] | | [facility] | | | | [address];[place] [address] | | LABORATORY | | + + + + + + + + | Specimen | + + | Blood | + + + + + + + | Performing | Address | City/State/Zipcode | Phone Number | | Organization | | | | + + + + + | REFERENCE LAB | [address] [place] [address] | [place] [address] | [phone] | | [facility] | Blvd[address] | | | | LABORATORY | | | | + + + + + | REFERENCE LAB | [address] [place] [address] | [place] [address] | | | [facility] | Bl[address]. | [...] W | | | | | | [facility] | | | | | | [place] [address] | | | | + + + + + + + + | Specimen | + + | Blood | + + + + + + + | Performing | Address | City/State/Zipcode | Phone Number | | Organization | | | | + + + + + | REFERENCE LAB | [address] [facility] | [place] [address] | [phone] | | [facility] | Blvd[address] | | | | LABORATORY | | | | + + + + + | REFERENCE LAB | [address] [facility] | [place] [address] | | | [facility] | Bl[address] | [...] [place] | | | | | | [address] | | | | + + + + + + + + | Specimen | + + | Blood | + + + + + + + | Performing | Address | City/State/Zipcode | Phone Number | | Organization | | | | + + + + + | REFERENCE LAB | [address] [place] [address] | [place] [address] | [phone] | | [facility] | Blvd[address] | | | | LABORATORY | | | | + + + + + | REFERENCE LAB | [address] [place] [address] | [place] [address] | | | [facility] | Blvd[address] | [...] criterion | | | | | | ([employer] | | | | | [...] | | | | | [facility] offers [id number] | | | | | | dsDNA Crithidia luciliae | | | | | | IFA. For further | | | | | | information, please | | | | | | contact your local | | | | | | [facility] | | | | | | An Employee Sponsor Or Advocate And.Testing | | | | | | performed at [facility] | | | | | | [facility], [address] | | | | | | [employer], [facility] | | | | | | [address],[place], [place] | | | | | | [phone]. | | | | + + + + + + + + | Specimen | + + | Blood | + + + + + + + | Performing | Address | City/State/Zipcode | Phone Number | | Organization | | | | + + + + + | REFERENCE LAB | [address] [facility] | [place] [address] | [phone] | | [facility] | Bl[address] | | | | LABORATORY | | | | + + + + + | REFERENCE LAB | [address] [facility] | [place] [address] | | | [facility] | Blvd[address] | [...] | | | COMPLEMENT | performed at [facility];[address] | | LAB | | | | [place] | | [facility] | | | | Blvd;[place] [address] | | LABORATORY | | + + + + + + + + | Specimen | + + | Blood | + + + + + + + | Performing | Address | City/State/Zipcode | Phone Number | | Organization | | | | + + + + + | REFERENCE LAB | [address] [facility] | [place] [address] | [phone] | | [facility] | Blvd[address] | | | | LABORATORY | | | | + + + + + | REFERENCE LAB | [address] [facility] | [place] [address] | | | [facility] | Bl[address]. | [...] | LAB | | | | [address] [facility] | | [facility] | | | | [place] [address] | | LABORATORY | | + + [...] | | | | | with both MT-3 and | | | | | | [...] | | 3 Antibody | performed by [facility], | | LAB | | | | [address], | | [facility] | | | | [facility] [address] | | LABORATORY | | + + + + + + + + | Specimen | + + | Blood | + + + + + + + | Performing | Address | City/State/Zipcode | Phone Number | | Organization | | | | + + + + + | REFERENCE LAB | [address] [place] [address] | [place] [address] | [phone] | | [facility] | Blvd[address] | | | | LABORATORY | | | | + + + + + | REFERENCE LAB | [address] [place] [address] | [place] [address] | | | [facility] | Bl[address] | [...]
--- OUTSIDE RECORDS SUMMARY | ~2019-07-10 | XMS | Encounter Summary ---
Demographics + + + | Address | [address] | | | [place] [address] | + + + | Home Phone [...] Team Providers + +------+ + | Care Microsoft Office Instructor Name | Role | Phone | [...] | | | | Peritoneal | | [address] Phone: | | | | | adhesion | | [phone] | | | | | Procedures | | Fax: | | | | | NE FREEING | | [phone] | | | | | BOWEL | | | | | | | ADHESION,ENT | | | | | | | EROLYSIS NE | | | | | | | [...] 06/19/ | | [address] [place] | [address] | | | 2018 | | [address] | | | | | | [phone] | | | +--------+ + + + [...] might be different from t he original. [facility] UROLOGY DISCHARGE SUMMARY Patient Name: [...] COUMADIN Discontinued Medications [place] Follow-Up: 1. [place] [facility] [facility] in 1 week. Please call during business hours to set up your urology follow up appointm ent. Electronically Signed by: Patrice Cross MD, 06/16/2018 7:42 [facility] documented in this encou nter Discharge Instructions Instructions Teresita Rodgers RN - 06/16/2018Formatting of this note might be different f rom the original. [facility] DISCHARGE INSTRUCTIONS FOLLOWING LAPAROSCOPIC REMOVAL OF [...] on your remaining kidney. CONTACT INFORMATION: - [facility] Office Number: [facility] Office: [facility] Office: FOLLOWUP INFORMATION: - Dr. Cross will [...] Weakness, dizziness, or fainting Date Last Reviewed: 05/12/201619999230-3549 [employer]. [address] [place], [place] [address]. All righ ts reserved. This information is [...] out or is dislodged Date Last Reviewed: 08/12/201619997936-8311 [employer]. [address] [place] [address], [place] [address]. All righ ts reserved. This information is not intended as a substitute for professional medical care. Always follow your healthcare professional's instructions. [facility] Patient Belongings Lily Valentin 1960 Valuables [...] Were Given To: octavio and valubles to [facility] #[id number] 18 Patient Signature: Clinician/Oral And Maxillofacial Surgery Resident Signature: documented in this encounter Medications at [...] 11:59 AM PSTPt has d/c orders to [place] [facility]. Pt h as sacral friction [...] 7:[address] [facility] UROLOGY DAILY PROGRESS NOTE ID: Lily Valentin [...] Signed by: Xavier Yip PA-C, 06/19/2018 7:40 [facility] Sasha Blevins, [facility] - 06/18/2018 4:52 PM PSTSOCIAL WORK D/C PLAN: SNF ([facility]) vs home NEXT STEPS: [facility]F in [place], [place] has accepted pt pending insurance authorization. [...] d/c to a SNF. SW called to [facility] and they are yash winchester. SW spoke to Angelika, Director at [facility]. She stated that pt is not appropr iate for home health. She recommends SNF. She also stated that pt's insurance is difficult t o work with and only authorized 1 home health visit and it took 10 plus days to get auth'ed for any other home health visits. ASSESSMENT/CHART REVIEW: 58 year old male with [employer] [place]. Pt lives with his elderly mother. Pt is bariatric. D/C TRANSPORT: jasson Matta- [phone]. SW originally asked for him to pick [...] support at home. CONTACTS: Toby Valentin, mother- [phone] Electronically signed by JOSH Mcbride 06/18/2018 4:52 [...] 4:35 PM PSTSOCIAL WORK D/C PLAN: SNF ([facility]) vs home? NEXT STEPS: Need PT to re-evaluate for disposition. PT can call this SW at [phone] to discuss d/c plan satya concerns. Awaiting returned call from [facility] SNF admissions ([phone]) re: if pt wo uld be appropriate [...] d/c to a SNF. SARAH called to [facility] and they a re reviewing. SW spoke to Angelika, Director at [facility]. She stated that pt is not appropr iate for home health. She recommends SNF. She also stated that pt's insurance is difficult t o work with and only authorized 1 home health visit and it took 10 plus days to get auth'ed for any other home health visits. ASSESSMENT/CHART REVIEW: 58 year old male with [employer] [place] insurance from [place]. Pt lives with his elderly mother. Pt is bariatric. D/C TRANSPORT: jasson Matta- [phone]. SW originally asked for him to pick [...] support at home. CONTACTS: Toby Valentin, mother- [phone] Electronically signed by JOSH Mcbride 06/17/2018 4:38 PM Luanne, Kasia Brink RN - 06/17/2018 11:33 AM PSTFormatting of this no te might be different from the original. [facility] Wound, Ostomy, & Continence [...] week Electronically signed by: Kasia Cannon RN, [facility] DATE/TIME: 06/17/2018 11:36 Patrice Ag MD - 1 08/17/2017 8:05 AM PST [facility] UROLOGY DAILY PROGRESS NOTE ID: Lily Valentin [...] Signed by: Patrice Cross MD, 06/17/2018 8:05 [facility] Patrice Ag MD - 06/16 7:42 AM PST [facility] UROLOGY DAILY PROGRESS NOTE ID: Lily Valentin [...] Signed by: Patrice Cross MD, 06/16/2018 7:42 [facility] Jack Lewis MD - 06/15/2018 8:00 AM [...] 36 sec IMAGING: All images reviewed by pa NEDA08/15/2017 Large amount of gas in intestines, [...] 06/13/2018 12:20 PM PDT [facility] UROLOGY DAILY PROGRESS NOTE ID: Lily Valentin [...] Signed by: Xavier Yip PA-C, 06/13/2018 12:20 [facility] Associated attestation - Patrice Cross MD - [...] 06/12/2018 5:33 AM PDT [facility] UROLOGY DAILY PROGRESS NOTE ID: Lily Valentin [...] None PLAN: 1. Advance diet 2. Dc sadlana 3. Hep lock IVF once tolerating PO [...] Signed by: Patrice Cross MD, 06/12/2018 5:33 [facility] documented in this encou nter Plan of Treatment +--------+---------+ + + + | Date | Type | Specialty | Care Team | Description | +--------+---------+ + + + | 07/13/ | Office | Cardiology | Ileana Henson | | | 2019 | Visit | | [address]UPAL [address] | | | | | | [address] | | | | | | [place] [address] | | | | | | [phone] | | | | | | | | +--------+---------+ + + + | 12/02/ | Office | Cardiology | Lorraine Clifton DO | | | 2019 | Visit | | [address] | | | | | | [place] | | | | | | [address] | | | | | | | | +--------+---------+ + + + | 12/13/ | Office | Nephrology | Jewel Ulloa MD | | | 2019 | Visit | | [address] | | | | | | [address] [place] | | | | | | [address] | | | | | | | [...] | | | | to 3.5Performed by [facility] | | LABORATORY | | | | [address], [place], | | [place] | | | | [place] [address] | | | | + + + + + + + + | Specimen | + + | Blood specimen | | (specimen) | + + + + + + + | Performing | Address | City/State/Zipcode | Phone Number | | Organization | | | | + + + + + | [facility] | [address] | [place] [address] | | | [facility] | | | | | [...] [facility] | | | | Performed by [facility] [address] | | SACRED | | | | [address] [place] | | HEART | | | | [address] | | MEDICAL | | | | [...] + + | PROVIDEDEYSIE SACRCHRISTIAN | [address] | [facility] [place] [address] | | | [facility] | | | | | LABORATORY [place] | | | | + + + [...] | | | | to 3.5Performed by [facility] | | LABORATORY | | | | [address] [place], | | [place] | | | | [place] [address] | | | | + + + + + + + + | Specimen | + + | Blood specimen | | (specimen) | + + + + + + + | Performing | Address | City/State/Zipcode | Phone Number | | Organization | | | | + + + + + | [facility] | [address] | [place] [address] | | | [facility] | | | | | LABORATORY [...] | | | | to 3.5Performed by [facility] | | LABORATORY | | | | [address] [place], | | [place] | | | | [place] [address] | | | | + + + + + + + + | Specimen | + + | Blood specimen | | (specimen) | + + + + + + + | Performing | Address | City/State/Zipcode | Phone Number | | Organization | | | | + + + + + | [facility] | [address] | [place] [address] | | | [facility] | [...] [facility] | | | | Performed by [facility] [address] | | SACRED | | | | [address] [place] | | HEART | | | | [address] | | MEDICAL | | | | [...] + + | [facility] | [address] | [place] [address] | | | [facility] | | | | | LABORATORY [place] | | | | + + + + + Maurice QUISPE (06/16/2018 5:15 AM PST) + + + [...] | | | | to 3.5Performed by [facility] | | LABORATORY | | | | [address] [place], | | [place] | | | | [place] [address] | | | | + + + + + + + + | Specimen | + + | Blood specimen | | (specimen) | + + + + + + + | Performing | Address | City/State/Zipcode | Phone Number | | Organization | | | | + + + + + | ROBERTA [facility] | [address] | [place] [address] | | | [facility] | | | | | LABORATORY [...] | | MEDICAL | | | | [facility] [address], | | CENTER | | | | [place] [address] | | LABORATORY | | | | [...] + + | SUSIEAKILAH WADSWORTH | [address] | [place] [address] | | | [facility] | | | | | STEPHEN [...] | | MEDICAL | | | | [facility] [address], | | CENTER | | | | [place] [address] | | LABORATORY | | | | [...] + + | [facility] | [address] | [place] [address] | | | [facility] | | | | | LABORATORY [...] | | | | to 3.5Performed by [facility] | | LABORATORY | | | | [address], [place], | | [place] | | | | [place] [address] | | | | + + + + + + + + | Specimen | + + | Blood specimen | | (specimen) | + + + + + + + | Performing | Address | City/State/[facility] | Phone Number | | Organization | | | | + + + + + | ROBERT[facility] | [address] | [place] [address] | | | HEART [facility] | | | | | LABORATORY [...] | | | | | seconds.Performed by [facility] | | | | | | [address] [place], | | | | | | [place] [address] | | | | + + + + + + + + | Specimen | + + | Blood specimen | | (specimen) | + + + + + + + | Performing | Address | City/State/Zipcode | Phone Number | | Organization | | | | + + + + + | [facility] | [address] | [place] [address] | | | [facility] | | | | | STEPHEN [...] ENCE | | | Basophils | by [facility] [address], | K/uL | SACRED | | | | [place] [address] | | HEART | | | |Performed by [facility] [address], [place] [address] | | MEDICA L | | | [...] + + | SUSIEDEYSIKathrin WADSWORTH | [address] | [place] [address] | | | [facility] | | | | | LABORATORY [...] | | MEDICAL | | | | [facility] [address], | | CENTER | | | | [place] [address] | | LABORATORY | | | | [...] + + | ROBERTA WADSWORTH | [address] | [place] [address] | | | HEART [facility] | | | | | LABORATORY [...] + + | Performing | Address | City/State/[facility] | Phone Number | | Organization [...] [facility] NCE | | | | by [facility] [address], | | SACRED | | | | [place] [address] | | HEART | | | |Performed by [facility] [address], [place] | | MEDICAL | | | [...] + + | ROBERTA WADSWORTH | [address] | [place] | | | HEART MEDICAL CENTER [...] | | | | to 3.5Performed by [facility] | | LABORATORY | | | | [address] [place], [place], | | [place] | | | | [place] [address] | | | | + + + + + + + + | Specimen | + + | Blood specimen | | (specimen) | + + + + + + + | Performing | Address | City/State/Zipcode | Phone Number | | Organization | | | | + + + + + | ROBERTA [facility]SW[facility] | [address] [place] | [place] [address] | | | [facility] | | | | | STEPHEN [...] | | MEDICAL | | | | [facility] [address] | | [place] | | | | [place] [address] | | LABORATORY | | | | [...] + + | PROVIDEDEYSIE SACRCHRISTIAN | [address] | [place] [address] | | | [facility] | | | | | LABORATORY [...] | | MEDICAL | | | | [facility] [address] [place], | | CENTER | | | | [place] [address] | | LABORATORY | | | | [...] + + | ROBERTA WADSWOR[facility] | [address] | [place] [address] | | | [facility] | | | | | LABORATORY [place] | | | | + + + [...] [facility] NCE | | | | by [facility] [address], | | SACRED | | | | [place] [address] | | HEART | | | |Performed by [facility] [address], [place] [address] | | MEDICAL | | | | [...] + + | ROBERTA [facility]SW[facility] | [address] | [place] [address] | | | [facility] | | | | | LABORATORY [place] | | | | + + + [...] | | MEDICAL | | | | [facility] [address], | | CENTER | | | | [place] [address] | | LABORATORY | | | | [...] + + | ROBERTA [facility]SW[facility] | [address] | [place] [address] | | | [facility] | | | | | STEPHEN [...] [facility] | | | | Performed by [facility] [address] | | SACRED | | | | [address], [place] | | HEART | | | | [address] | | MEDICAL | | | | [...] + + | [facility]EYSIE [facility] | [address] | [place] [address] | | | [facility] | | | | | [...] | | MEDICAL | | | | [facility] [address], | | CENTER | | | | [place] [address] | | LABORATORY | | | | [...] + + | ROBERTA [facility]SW[facility] | [address] | [place] [address] | | | [facility] | | | | | STEPHEN CAVANAUGH | | | | + + + + + Tissue Request For Pathology (06/11/2018 2:57 PM PDT) + + | Specimen | + + | | + + + + + | Narrative | Performed At | + + + | | [facility] | | LILY VALENTIN | [place] | | : 1960 AGE: 58 years SEX: Male | MEDICAL CENTER | | | LABORATORY | | Acct: [id number] Location: | [facility] | | [facility] SURG; 552; 552-02 Case #: | | | [id number] Ordering: PATRICE CROSS MD | | | Client: [facility] | | | Copy To: Printed: | | | 06/18/2018 12:37 PST | | | SURGICAL PATHOLOGY FINAL REPORTCollected: | | | Received: Responsible | | | Pathologist:06/11/2018 14:57 PDT 06/11/2018 16:06 | | | PDT DIANNA RICARDO TFINAL DIAGNOSIS:A. Lymph | | | nodes, hilar, [...] | MDVerify Date: 06/18/2018 12:37 pmPerforming Location: [facility] | | | [facility], [facility] [address] | | | DESCRIPTION:This case is received [...] | | | ureteral and renal vasculature margins.Drapery Head Former sections are | | | submitted as [...] pelvis and sinus | | | fat. Drapery Head Former sections are submitted during second look with | | | Jc on 06/12/18 as follows: "B9-B10" - upper pole mass including | | | surrounding renal parenchyma; "B11-B12" - upper pole lesion including | | | interface with perinephric adipose tissue.CT/AK10//18MICROSCOPIC | | | DESCRIPTION:Histologic sections of all [...] + | ROBERTA [facility] | [address] | [place] [address] | | | [facility] | | | | | STEPHEN [...] REFERENCE | | | | | | [place] | | | | | | [facility] | | | | | | [facility] | | | | | | BLOOD | | | | | | CENTER | | + + + + + + | Rh Type | PositiveComment: Patient | | REFERENCE | | | | is remote crossmatch | | LAB [facility] | | | | eligible | | [...] + + + | Specimen Expiration Date: [id number] | REFERENCE LAB | | | [facility] | | | [facility] | | | [facility] | + + + + + + + + | Performing | Address | City/State/Zipcode | Phone Number | | Organization | | | | + + + + + | REFERENCE [facility] | [address] | [place] [address] | [phone] | | [facility] [place] | | | | | [facility] [...] | | | | | | [facility] [place] | | | | | | [facility] | | | | | | [facility] | | | | | | BLOOD | | | | | | CENTER | | + + + + + + | Rh Type | Positive | | REFERENCE | | | | | | [facility] [place] | | | | | | [facility] | | | | | | [facility] | | | | | | BLOOD | | | | | | CENTER | | + + + + + + | Antibody | Negative | | REFERENCE | | | Screen | | | LAB [place] | | | | | | [place] [...] + + + | Specimen Expiration Date: [id number] | REFER[facility] LAB | | | [facility] | | | [facility] | | | [facility] | + + + + + + + + | Performing | Address | City/State/Zipcode | Phone Number | | Organization | | | | + + + + + | [facility] | [address] | [place] [address] | [phone] | | [place] | | | | | [facility] [...] | | | POC | Performed by [facility] [address] | | SACRED | | | | [address] [place] | | HEART | | | | [address] | | MEDICAL | | | | [...] + + | ROBERTA [facility]ADSWOR[facility] | [address] | [place] [address] | | | [facility] | | | | | LABORATORY [...] 18 1:05 | | | | | Sat06/11/18 at 1230, For 1 dose, | | [...] | | | | First dose on 06/11/18 at | | AM PDT | | [...] + + +--------+---+---+ | morphine 5 mg/mL BIOMEDICAL MANAGER syringe | Rate/Dos | 06/13/20 | 150 [...] | | | Loading Dose(mg): 0, Starting BIOMEDICAL MANAGER | | | | | | | Dose(mg): 1, Incremental | | | | | | | Increase BIOMEDICAL MANAGER Dose(mg): 0.5, | | | | | | | Maximum BIOMEDICAL MANAGER Dose(mg): 2, Lockout | | | | [...] | | | | | dose on [facility] 06/12/18 at 0900, | | AM [...]
--- OUTSIDE RECORDS SUMMARY | ~2019-07-10 | XMS | Encounter Summary ---
Demographics + + + | Address | [address] | | | [place] [address] | + + + | Home Phone [...] [place] | | | | | [address] | | + + + + + Care Team Providers + +------+ + | Care Unit Manager Name | Role | Phone | [...] | | | | | | | [place] | | | | | | | COLONOSCOPY, | | | | | | | FLEX, | | | | | | | W/BIOPSY [place] | | | | | | | | | | | | | | COLONOSCOPY, | | | | | | | YUNI URIBE BY | | | | | | | SNARE | | | | | | | TECHNIQUE | | | | | | | [place] | | | | | | | [...] | | | | | | | [place] ANES LWR | | | | | | | INTST NDSC | | | | | | | NOS | | | +--------+--------+ + + + + Encounter Details +--------+ + + + + | Date | Type | Department | Care Team | Description | +--------+ + + + + | 07/01/ | Anesthesia | [facility] | Adolfo Ace, | | | 2018 | Event | [facility] [address] | [address] | | | | | [place] Mailcode: | [address] | | | | | [facility] | [place], [place] | | | | | [facility], | [address] | | | | | [address] | [phone] | | | | | [place], [place] | | | | | | [address] | Radha Link CRNA | | | | | [phone] | [address] | | | | | | [address] | | | | | | [place], [place] | | | | | | [address] | | | | | | [phone] | | | | | | | | +--------+ + + + + Anesthesia Record + + + + + | Procedure Name | Responsible | Anesthesia Start | Anesthesia Stop Time | | | Anesthesiologist | Time | | + + + + + | COLONOSCOPY | Aodlfo Ace MD | 07/01/19 1006 | 07/01/19 [...] 0955; Right; | 07/01/19 0955 by | | | eral | Antecubital; 20 g; Positive | Bethesda Weber, RN | | | IV | | [...] Rd | | | | | | [place], [place] | | | | | | [address] | | | | | | [phone] | | | | | | | [...] +-------+---+ | Rate/Dose Change | 07/01/20 | 0.6 | 25.2 | | | [...] | | | 07/01/19 at 1044, Until Wed | | AM PST | [...]
--- OUTSIDE RECORDS SUMMARY | ~2019-07-10 | XMS | Encounter Summary ---
Demographics + + + | Address | [address] | | | [place] [address] | + + + | Home Phone [...] Author + + + | Author | [facility] | + + + | Organization | [facility] | + + + | Address | Unknown | + + + | Phone | Unavailable | + + + Support + + + + + | Name | Relationship | Address | Phone | + + + + + | Toby Latham | ANNA | [address] | | | | | [place] | | | | | [address] | | + + + + + Care Team Providers + +------+ + | Care Mosaic Tiler Name | Role | Phone | + [...] 07/02/ | Telephone | [facility] | [place], | Telephone follow-up | | 2019 | | [facility] [address] | MD Charles [address] | | | | | [address] Mailcode: | [address] | | | | | [address] [place] [address] | [place], [place] | | | | | Health and Healing, | [address] | | | | | [address] | [phone] | | | | | [place], [place] | | | | | | [address] | | | | | | [phone] | | | +--------+ + + + [...] Rd | | | | | | [place], [place] | | | | | | [address] | | | | | | [phone] | | | | | | | | +--------+---------+ + + + documented as of this encounter Visit Diagnoses Not on filedocumented in this encounter"
--- OUTSIDE RECORDS SUMMARY | ~2019-07-10 | XMS | Encounter Summary ---
Demographics + + + | Address | [address] | | | [place] [address] | + + + | Home Phone [...] Team Providers + +------+ + | Care Integration Technician Name | Role | Phone | [...] [place] | | | | | [place], [place] | [address] | | | | | [address] | | | | | | [phone] | | | +--------+ + + + [...] [address] | | | | | | [place] [address] | | | | | | [phone] | | | | | | | | +--------+---------+ + + + | 12/02/ | Office | Cardiology | Lorraine Clifton DO | | | 2019 | Visit | | [address] | | | | | | [place] | | | | | | [address] | | | | | | | | +--------+---------+ + + + | 12/13/ | Office | Nephrology | Jewel Ulloa MD | | | 2019 | Visit | | [address] [facility] [address] | | | | | | [address] [place] | | | | | | [address] | | | | | | | [...] | e': 0.05 m/s Lateral E/e': 14.38 Health Science Writer: | | | Authenticated by: PRAFUL CRUZ MD Report Date/Time: -- | | | [id number] | | + + + + + | Procedure Note | + + | Jake Long - 04/02/2019 7:43 PM PDT Patient Name: Paras L[place] of | | : 1960 Performing Physician: PRAFUL CRUZ, | | INDICATIONS | | CONCLUSIONS 1. Overall left [...] | 5.27 cmLVPWd: 1.53 cmLVOT Area: 3.98 ad0LLYQ Diam: 2.25 cm%FS: 29.74 %EF(Teich): | | [...] (A-L): 19.51 ml/m2LAAs | | A2C: 15.25 gs3OWDCT A-L A2C: 42.23 mlLALs A2C: 4.67 cmLAAs A4C: 19.09 kr7TRXFY | | A-L A4C: 57.52 mlLALs A4C: 5.38 cmRAAs: 18.09 [id number] A-L: 55.31 mlRAESV MOD: | | 52.35 mlRALs: 5.02 cmTAPSE: 2.41 cmAV maxP.54 mmHgAV meanP.73 mmHgAV | | Vmax: 1.62 m/Kristy Vmean: 1.12 m/Kristy VTI: 27.29 cmAVA Vmax: 3.41 cm2AVA (VTI): | | 4.05 [id number] Vmax: 0.00 cm2/m2AVAI (VTI): 0.00 cm2/m2LVOT maxP.71 mmHgLVOT | | meanP.84 mmHgLVSI Dopp: 40.80 ml/m2LVSV Dopp: 110.56 mlLVOT Vmax: 1.38 | | m/sLVOT Vmean: 1.04 m/sLVOT VTI: 27.72 cmMV A Zack: 0.79 m/sMV DecT: 349.62 msMV | | E Zack: 0.74 m/sMV E/A Ratio: 0.93MV PHT: 101.39 msMVA By PHT: 2.16 oz0Vmajln e': | | 0.04 m/sSeptal E/e': 16.78Lateral e': 0.05 m/sLateral E/e': 14.38 | | Health Science Writer:Authenticated by: Tiesha BOOTHE Date/Time: -- | | [id number]:42 IMPRESSION: 1. Overall left ventricular systolic function [...] | |Lateral E/e': 14.38 | | | |Health Science Writer: | |Authenticated by: PRAFUL CRUZ MD | |Report Date/Time: [id number]:42 | | | |IMPRESSION: | |1. Overall [...]
--- OUTSIDE RECORDS SUMMARY | ~2019-07-10 | XMS | Encounter Summary ---
Demographics + + + | Address | [address] | | | [place] [address] | + + + | Home Phone [...] [address] | | | | | [address] | | + + + + + Care Team Providers + +------+ + | Care Utilities Operator Name | Role | Phone | [...] Rd | | | | | | [place], [place] | | | | | | [address] | | | | | | [phone] | | | | | | | | +--------+---------+ + + + documented as of this encounter Visit Diagnoses Not on filedocumented in this encounter"
--- OUTSIDE RECORDS SUMMARY | ~2019-07-10 | XMS | Encounter Summary ---
Demographics + + + | Address | [address] | | | [place] [address] | + + + | Home Phone [...] Team Providers + +------+ + | Care Stacker Name | Role | Phone | + [...] [place] | | | | | [place], [place] | [address] | | | | | [address] | | | | | | [phone] | | | +--------+ + + + [...] [address]IL[address] | | | | | | [place] [address] | | | | | | [phone] | | | | | | | | +--------+---------+ + + + | 12/02/ | Office | Cardiology | Lorraine Clifton DO | | | 2019 | Visit | | [address] | | | | | | [place] | | | | | | [address] | | | | | | | | +--------+---------+ + + + | 12/13/ | Office | Nephrology | Jewel Ulloa MD | | | 2019 | Visit | | [address] [facility] [place] | | | | | | [address] [place] | | | | | | [address] | | | | | | | [...] | e': 0.05 m/s Lateral E/e': 14.38 Presidential Helicopter Crew Chief: | | | Authenticated by: PRAFUL CRUZ MD Report Date/Time: -- | | | 23_[id number]_57:9:42 | | + + + + + [...] | 5.27 cmLVPWd: 1.53 cmLVOT Area: 3.98 [id number] Diam: 2.25 cm%FS: 29.74 %EF(Teich): | | [...] (A-L): 19.51 ml/m2LAAs | | A2C: 15.25 [id number] A-L A2C: 42.23 mlLALs A2C: 4.67 cmLAAs A4C: 19.09 [id number] | | A-L A4C: 57.52 mlLALs A4C: 5.38 cmRAAs: 18.09 cy2CUEVL A-L: 55.31 mlRAESV MOD: | | 52.35 mlRALs: 5.02 cmTAPSE: 2.41 cmAV maxP.54 mmHgAV meanP.73 mmHgAV | | Vmax: 1.62 m/Kristy Vmean: 1.12 m/Kristy VTI: 27.29 cmAVA Vmax: 3.41 cm2AVA (VTI): | | 4.05 nd1PHTH Vmax: 0.00 cm2/m2AVAI (VTI): 0.00 cm2/m2LVOT maxP.71 mmHgLVOT | | meanP.84 mmHgLVSI Dopp: 40.80 ml/m2LVSV Dopp: 110.56 mlLVOT Vmax: 1.38 | | m/sLVOT Vmean: 1.04 m/sLVOT VTI: 27.72 cmMV A Zack: 0.79 m/sMV DecT: 349.62 msMV | | E Zack: 0.74 m/sMV E/A Ratio: 0.93MV PHT: 101.39 msMVA By PHT: 2.16 kd6Qwwbae e': | | 0.04 m/sSeptal E/e': 16.78Lateral e': 0.05 m/sLateral E/e': 14.38 | | Presidential Helicopter Crew Chief:Authenticated by: Tiesha BOOTHE Date/Time: -- | | 34_[id number]:9:42 IMPRESSION: 1. Overall left ventricular systolic function [...] | |Lateral E/e': 14.38 | | | |Presidential Helicopter Crew Chief: | |Authenticated by: PRAFUL CRUZ MD | |Report Date/Time: 86_[id number]:9:42 | | | |IMPRESSION: | |1. Overall [...]
--- OUTSIDE RECORDS SUMMARY | ~2019-07-10 | XMS | Encounter Summary ---
Demographics + + + | Address | [address] | | | [place] [address] | + + + | Home Phone [...] [place] | | | | | [address] | | + + + + + Care Team Providers + +------+ + | Care Production Assistant Name | Role | Phone | [...] | | | | | colon | [facility] | [facility] | | | | | Procedures | Rd | Rd | | | | | CONSULT TO | [place], [place] | [place], [place] | | | | | [place] | [address] | [address] | | | | | LOGY | Phone: | Phone: | | | | | CONSULT TO | [phone] | [phone] | | | | | GASTROENTERO | Fax: | Fax: | | | | | LOGY | [phone] | [phone] | + +--------+ + + + + [...] | | | | | Procedures | [place], [place] | Mailcode: | | | | | CONSULT TO | [address] | [facility] | | | | | GI PROCEDURE | Phone: | [place] | | | | | UNIT: | [phone] | [address] | | | | | COLONOSCOPY | Fax: | [place], | | | | | | [phone] | [place] [address] | | | | | | | Phone: | | | | | | | [phone] | | | | | | | Fax: | | | | | | | [phone] | + +--------+ + + + + [...] | | | | | ROLA | [facility] | | | | | | [place] [address] | [facility] and | | | | | | Phone: | Healing, | | | | | | [phone] | Building [address] | | | | | | Fax: | [place], [place] | | | | | | [phone] | [address] | | | | | | | Phone: | | | | | | | [phone] | | | | | | | Fax: | | | | | | | [phone] | +--------+--------+ + + + + Encounter Details +--------+---------+ + + + | Date | Type | Department | Care Team | Description | +--------+---------+ + + + | 02/05/ | Office | Digestive Health | Tsikitis, | Villous adenoma of | | 2019 | Visit | [place] at [facility] [address] | MD [address] | colon (Primary Dx) | | | | [address] | [address] | | | | | Mailcode: Center | [place], [place] | | | | | for Health and | [address] | | | | | Healing, Building 2 | [phone] | | | | | [facility] [place] | | | | | | [address] | | | | | | [phone] | | | +--------+---------+ + + + [...] history per Note of Dr. Carroll from [facility]: 11/18/18: Seen Dr. Cohen for colonoscopy consult and scheduled for procedure at the hospital given his multiple comorbidities. 12/11/18: Onset of right lower back pain after exiting his truck awkwardly. Seen at ED of [facility] for scheduled colonoscopy. Incidentally also seen for [...] [facility] and recommended referral to 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 01/08/19: follow up with Dr. Carroll and referred to GI Surgery Dr. Thompson at [facility] REVIEW OF SYSTEMS: As per HPI, otherwise [...] placed to MD CHAVEZ Follow up with mi LEONARDA Mcgraw, MS3 [facility], [employer] Padilla Ko MD General [...] | | 2019 | Visit | | [address] [facility] | | | | | | [address] | | | | | | [place], [place] | | | | | | [address] | | | | | | [phone] | | | | | | | | +--------+---------+ + + + documented as of this encounter Visit Diagnoses + + | Diagnosis | + + | Villous adenoma of colon - Primary Benign neoplasm of colon | + + documented in this encounter
--- OUTSIDE RECORDS SUMMARY | ~2019-07-10 | XMS | Encounter Summary ---
Demographics + + + | Address | [address] | | | [place] [address] | + + + | Home Phone [...] + + + | Author | [facility] | + + + | Organization | [facility] | + + + | Address | Unknown | + + + | Phone | Unavailable | + + + Support + + + + + | Name | Relationship | Address | Phone | + + + + + | Toby Latham | ANNA | [address] | | | | | [address] | | | | | [address] | | + + + + + Care Team Providers + +------+ + | Care Log Haul Chain Feeder Name | Role | Phone | [...] | | | | CONSULT TO | [place] | [place] | | | | | GI PROCEDURE | | [address] | | | | | UNIT: | Phone: | [place], | | | | | COLONOSCOPY | [phone] | [place] [address] | | | | | [place] ANES LWR | Fax: | Phone: | | | | | INTST NDSC | [phone] | [phone] | | | | | N[place] | | Fax: | | | | | COLONOSCOPY, | | [phone] | | | | | FLEX, | | | | | | | W/BIOPSY [place] | | | | | | | | | | | | | | COLONOSCOPY, | | | | | | | REMV LESN BY | | | | | | | SNARE | | | | | | | TECHNIQUE | | | | | | | PA | | | | | | | [...] + + + + | 02/09/ | Metalsmith Helper | Digestive Health | Naveen Luke [address] | Adenomatous polyp of | | 2019 | | Center at [facility] 4th | MD Matt [address] [facility] | ascending colon | | | | Floor [address] | [address] | (Primary Dx) | | | | [address] | [place], [place] | | | | | Mailcode: CH6D | [address] | | | | | [facility] | [phone] | | | | | [place], [place] | | | | | | [address] | | | | | | [phone] | | | +--------+ + + + [...] Rd | | | | | | [place], [place] | | | | | | [address] | | | | | | [phone] | | | | | | | | +--------+---------+ + + + documented as of this encounter Visit Diagnoses + + | Diagnosis | + + | Adenomatous polyp of ascending colon - Primary | + + documented in this encounter"
--- OUTSIDE RECORDS SUMMARY | ~2019-07-10 | XMS | Encounter Summary ---
Demographics + + + | Address | [address] | | | [place] [address] | + + + | Home Phone [...] [address] | | | | | [address] | | + + + + + Care Team Providers + +------+ + | Care Tapping Machine Operator Automatic Name | Role | Phone | + [...] | | | | | | | [place] | | | | | | | COLONOSCOPY, | | | | | | | FLEX, | | | | | | | W/BIOPSY [place] | | | | | | | | | | | | | | COLONOSCOPY, | | | | | | | YUNI URIBE BY | | | | | | | SNARE | | | | | | | TECHNIQUE | | | | | | | [place] | | | | | | | [...] | | | | | | | [place] ANES LWR | | | | | | | INTST NDSC | | | | | | | NOS | | | +--------+--------+ + + + + Encounter Details +--------+ + + + + | Date | Type | Department | Care Team | Description | +--------+ + + + + | 07/01/ | Hospital [facility] | En[facility] | Procedural Unit | MD Charles [address] | | | | | ([facility]) at [facility] [address] | | | | | SARAH Joseph | [facility] [place] | | | | | Mailcode: [place] | [address] | | | | | [facility] and | [phone] | | | | | [facility], [facility] 2 | | | | | | [facility] [place] | | | | | | [address] | | | | | | [phone] | | | +--------+ + + + [...] Call the endoscopy department toll free ext. [phone] or After business hours or on weekends and holidays call the Hospital Technical System Analyst toll free [phone] Ext. [phone] or and have the GI doctor subcontracts manager paged. The provider who performed your procedure: [...] 10:15 AM PST PRE PROCEDURE NOTE: MR# [id number] Subjective: Aaron Latham is a 59 y.o. [...] | | 2019 | Visit | | [address] | | | | | | [address] | | | | | | [place], [place] | | | | | | [address] | | | | | | [phone] | | | | | | | [...] PathologistPathology, | | | | | | [facility] | | | | | | University [...] | CENTER FOR | | | | [facility]) and medical record | | HEALTH + | | | | number [id number].A. | | HEALING | | | | [...] | + + + + + | [facility] | [address] | [place] [address] | | | PATHOLOGY | [address] | | | + + + + + | [facility] | [address] | [place] [address] | | | SERVICES, [facility] | | | | | HE[facility] + HEALING | | | | + + + + + COLONOSCOPY (07/01/2019 10:08 AM PST) + + | Specimen | + + | | + + + + + | Narrative | Performed At | + + + | MRN: | [facility] | | [id number] Date: 07/01/2019Patient Name: Aaron Justin #: | ENDOSCOPY | | [id number] of : 1960SN: [id number] Type: | | | AmbulatoryRoom: Endo 5Procedure: | | | ColonoscopyIndications: Therapeutic procedure for known | | | colon polypPatient Profile: This is a 59 year old male. Refer to | | | note in patient chart for | | | documentation of history and physical.Providers: CHARLES | | | MD PEDRO (Doctor), CATARINA SOLIMAN RN | | | (Nurse), NGHIA YBARRA (Plant Pathologist)Referring MD: CHARLES | | | MASON VASQUEZequesting [...] the procedure. The Olympus | | | [id number] Colonoscope #[id number] was introduced | | | through the [...] | | any questions, please contact the sewing machine operator plastic zipper. | | | - Clear liquid diet [...]
--- OUTSIDE RECORDS SUMMARY | ~2019-07-10 | XMS | Encounter Summary ---
Demographics + + + | Address | [address] | | | [place] [address] | + + + | Home Phone [...] [address] | | | | | [address] | | + + + + + Care Team Providers + +------+ + | Care Vessel Welder Name | Role | Phone | + +------+ + PCP | Unavailable | + +------+ + Encounter Details +--------+ + + + + | Date | Type | Department | Care Team | Description | +--------+ + + + + | 05/23/ | Emergency | [facility] Emergency | | | | 2016 | | Department [address] | | | | | | [address] | | | | | | [facility] | | | | | | [place], [place] | | | | | | [address] | | | | | | [phone] | | | +--------+ + + + [...] Rd | | | | | | [place], [place] | | | | | | [address] | | | | | | [phone] | | | | | | | | +--------+---------+ + + + documented as of this encounter Visit Diagnoses Not on filedocumented in this encounter"
--- OUTSIDE RECORDS SUMMARY | ~2019-07-10 | XMS | Encounter Summary ---
Demographics + + + | Address | [address] | | | [place] [address] | + + + | Home Phone [...] Team Providers + +------+ + | Care Investor Name | Role | Phone | + [...] | | | | | hy, | [address] | [address] | | | | | unspecified | [place], | [place], [place] | | | | | Elevated | [place] [address] | [address] | | | | | C-reactive | Phone: | Phone: | | | | | protein | [phone] | [phone] | | | | | (CRP) Other | Fax: | Fax: | | | | | specified | [phone] | [phone] | | | | | abnormal | [...] | 05/04/ | Office | [facility] | Arturo Gray | Positive NICKIE | | 2019 | Visit | RHEUMATOLOGY [address] | MD Tien [address] | (antinuclear | | | | [address] | [address] | antibody) (Primary | | | | [place] | [place] [address] | Dx); Chronic kidney | | | | [address] | [phone] | disease, stage 3 | | | | [phone] | | (HCC); SS-B antibody | | [...] encounter Patient Instructions Patient Instructions Serena Forman, Tariff Supervisor - 05/04/2019 8:30 AM JUANCARLOSWe hope t hat you have experienced exceptional care today and that you found our service to be courteo us and helpful. If you have any questions, you can send us a message/request using GrayBug or call our o ffice at [phone]. To reach the Tariff Supervisor , dial [email or web address] - [phone]- Serena Jose J GARRISON If you are [...] You can also review your results on [employer]. 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 I reassured patient that [...] | | | | | [place] [address] | | | | | | [phone] | | | | | | | | +--------+---------+ + + + | 12/02/ | Office | Cardiology | Lorraine Clifton DO | | | 2019 | Visit | | [address] | | | | | | [place] | | | | | | [address] | | | | | | | | +--------+---------+ + + + | 12/13/ | Office | Nephrology | Jewel Ulloa MD | | | 2019 | Visit | | [address] [place] | | | | | | [address] [place] | | | | | | [address] | | | | | | | [...] - 1.030 | REFERENCE | | | [place], | | | LAB | | | [...] REFERENCE | | | | performed at [facility];[address] | | LAB | | | | [place] | | [facility] | | | | [address];[place] [address] | | LABORATORY | | + + + + + + + + | Specimen | + + | Urine | + + + + + + + | Performing | Address | City/State/Zipcode | Phone Number | | Organization | | | | + + + + + | REFERENCE LAB | [address] [place] [address] | [place] [address] | [phone] | | [facility] | Blvd[address] | | | | LABORATORY | | | | + + + + + | REFERENCE LAB | [address] [place] [address] | [place] [address] | | | [facility] | Blvd. | [...] | | | RATIO,URINE | performed at [facility];[address] | | LAB | | | | [place] | | [facility] | | | | [address];[place] [address] | | LABORATORY | | + + + + + + + + | Specimen | + + | Urine | + + + + + + + | Performing | Address | City/State/Zipcode | Phone Number | | Organization | | | | + + + + + | REFERENCE LAB | [address] [facility] | [place] [address] | [phone] | | [facility] | Blvd. | | | | LABORATORY | | | | + + + + + | REFERENCE LAB | [address] [facility] | [place] [address] | | | [facility] | Blvd. | [...] REFERENCE | | | | performed at [facility];[address] | | LAB | | | | [place] | | [facility] | | | | [address];[place] [address] | | LABORATORY | | + + + + + + + + | Specimen | + + | Blood | + + + + + + + | Performing | Address | City/State/Zipcode | Phone Number | | Organization | | | | + + + + + | REFERENCE LAB | [address] [place] [address] | [place] [address] | [phone] | | [facility] | Blvd[address] | | | | LABORATORY | | | | + + + + + | REFERENCE LAB | [address] [place] [address] | [place] [address] | | | [facility] | Blvd. | [...] | | | Qual | performed at [facility], [address] | | LAB | | | | [address] [facility] | | [facility] | | | | [place] [address] | | LABORATORY | | + + [...] | | | | | with both MD-3 and | | | | | | [...] | | 3 Antibody | performed by [facility], | | LAB | | | | [address], | | [facility] | | | | [facility] [address] | | LABORATORY | | + + + + + + + + | Specimen | + + | Blood | + + + + + + + | Performing | Address | City/State/Zipcode | Phone Number | | Organization | | | | + + + + + | REFERENCE LAB | [address] [place] [address] | [place] [address] | [phone] | | [facility] | Blvd. | | | | LABORATORY | | | | + + + + + | REFERENCE LAB | [address] [place] [address] | [place] [address] | | | [facility] | Blvd. | [...] | | [facility] | | | | Blvd;[place], [place] [address] | | LABORATORY | | + + + + + + + + | Specimen | + + | Blood | + + + + + + + | Performing | Address | City/State/Zipcode | Phone Number | | Organization | | | | + + + + + | REFERENCE LAB | [address] [facility] | [place] [address] | [phone] | | [facility] | Blvd. | | | | LABORATORY | | | | + + + + + | REFERENCE LAB | [address] [place] [address] | [place] [address] | | | [facility] | Blvd. | [...] criterion | | | | | | ([employer] | | | | | [...] | | | | | [facility] offers [id number] | | | | | | dsDNA Crithidia luciliae | | | | | | IFA. For further | | | | | | information, please | | | | | | contact your local | | | | | | [facility] | | | | | | Manager Dairy.Testing | | | | | | performed at [facility] | | | | | [facility], [address] | | | [address], [address] | | | | | [address],[place], [place] | | | | | | [phone]. | | | | + + + + + + + + | Specimen | + + | Blood | + + + + + + + | Performing | Address | City/State/Zipcode | Phone Number | | Organization | | | | + + + + + | REFERENCE LAB | [address] [place] [address] | [place] [address] | [phone] | | [facility] | Blvd[address] | | | | LABORATORY | | | | + + + + + | REFERENCE LAB | [address] [place] [address] | [place] [address] | | | [facility] | Blvd. | [...] | | | | | | at [facility], [address] | | | | | | [place] | | | | | | [address] | | | | + + + + + + + + | Specimen | + + | Blood | + + + + + + + | Performing | Address | City/State/Zipcode | Phone Number | | Organization | | | | + + + + + | REFERENCE LAB | [address] [place] [address] | [place] [id number] | [phone] | | [facility] | Blvd. | | | | LABORATORY | | | | + + + + + | REFERENCE LAB | [address] [place] [address] | [place] [address] | | | [facility] | Blvd. | [...] | | | | | performed at [facility], [address] | | | | | | [address] | | | | | | [place] [address] | | | | + + + + + + + + | Specimen | + + | Blood | + + + + + + + | Performing | Address | City/State/Zipcode | Phone Number | | Organization | | | | + + + + + | REFERENCE LAB | [address] [facility] | [place] [address] | [phone] | | [facility] | Blvd. | | | | LABORATORY | | | | + + + + + | REFERENCE LAB | [address] [facility] | [place] [address] | | | [facility] | Blvd. | [...] REFERENCE | | | | performed at [facility];[address] | | LAB | | | | [facility] | | [facility] | | | | Blvd;[place] [address] | | LABORATORY | | + + + + + + + + | Specimen | + + | Blood | + + + + + + + | Performing | Address | City/State/Zipcode | Phone Number | | Organization | | | | + + + + + | REFERENCE LAB | [address] [place] [address] | [place] [address] | [phone] | | [facility] | Blvd. | | | | LABORATORY | | | | + + + + + | REFERENCE LAB | [address] [place] [address] | [place] [address] | | | [facility] | Blvd. | [...] REFERENCE | | | | performed at [facility];[address] | | LAB | | | | [place] | | [facility] | | | | Blvd;[place] [address] | | LABORATORY | | + + + + + + + + | Specimen | + + | Blood | + + + + + + + | Performing | Address | City/State/Zipcode | Phone Number | | Organization | | | | + + + + + | REFERENCE LAB | [address] | [place] [address] | [phone] | | [facility] | Blvd. | | | | LABORATORY | | | | + + + + + | REFERENCE LAB | [address] | [place] [address] | | | [facility] | Blvd. | [...] | | | | | performed at [facility];[address] | | | | | | [facility] | | | | | | [facility];[place], [place] [address] | | | | | | | | | | + + + + + + + + | Specimen | + + | Blood | + + + + + + + | Performing | Address | City/State/Zipcode | Phone Number | | Organization | | | | + + + + + | REFERENCE LAB | [address] [facility] | [place] [address] | [phone] | | [facility] | Blvd. | | | | LABORATORY | | | | + + + + + | REFERENCE LAB | [address] [facility] | [place] [address] | | | [facility] | Blvd. | [...] | | | Absolute | performed at [facility];[address] | K/uL | LAB | | | | [place] | | [facility] | | | | Bl[address];[place] [address] | | LABORATORY | | + + + + + + + + | Specimen | + + | Blood | + + + + + + + | Performing | Address | City/State/Zipcode | Phone Number | | Organization | | | | + + + + + | REFERENCE LAB | [address] [place] [address] | [place] [address] | [phone] | | [facility] | Blvd. | | | | LABORATORY | | | | + + + + + | REFERENCE LAB | [address] [place] [address] | [place] [address] | | | [facility] | Blvd. | [...]
--- OUTSIDE RECORDS SUMMARY | ~2019-07-10 | XMS | Encounter Summary ---
Demographics + + + | Address | [address] | | | [place] [address] | + + + | Home Phone | | + + + | Preferred Language | Unknown | + + + | Marital Status | Single | + + + | Restoration Affiliation | 1077 | + + + [...] Team Providers + +------+ + | Care Agronomy Technician Name | Role | Phone | [...] + | 06/09/ | Telephone | [facility] | Callum, | Alvaro (Appointment | | 2018 | | NEPHROLOGY LETICIA | Gaob Jay | reminder call) | | | | [address] [place] | [place] | | | | | [address] [place], [place] | | | | | | [address] | | | | | | [phone] | | | +--------+ + + + [...] | 2019 | Visit | | [address] | | | | | | [address] | | | | | | [place] [address] | | | | | | [phone] | | | | | | | | +--------+---------+ + + + | 12/02/ | Office | Cardiology | Lorraine Clifton DO | | | 2019 | Visit | | [address] | | | | | | [place] | | | | | | [address] | | | | | | | | +--------+---------+ + + + | 12/13/ | Office | Nephrology | Jewel Ulloa MD | | | 2019 | Visit | | [address] [place] | | | | | | [address] [place] | | | | | | [address] | | | | | | | | +--------+---------+ + + + documented as of this encounter Visit Diagnoses Not on filedocumented in this encounter"
--- OUTSIDE RECORDS SUMMARY | ~2019-07-10 | XMS | Encounter Summary ---
Demographics + + + | Address | [address] | | | [place] [address] | + + + | Home Phone [...] Team Providers + +------+ + | Care Milieu Technician Name | Role | Phone | + +------+ + PCP | Unavailable | + +------+ + Encounter Details +--------+ + + + + | Date | Type | Department | Care Team | Description | +--------+ + + + + | 06/05/ | Hospital | [facility] | Conversion | Diagnosis unknown | | 2016 | Encounter | CONVERSION DEP [address] | Transaction, | | | | | [address] | Provider Unknown | | | | | [place] | | | | | | [address] | | | | | | [phone] | | | +--------+ + + + [...] | | | | | [place] [address] | | | | | | [phone] | | | | | | | | +--------+---------+ + + + | 12/02/ | Office | Cardiology | Lorraine Clifton DO | | | 2019 | Visit | | [address] | | | | | | [place] | | | | | | [address] | | | | | | | | +--------+---------+ + + + | 12/13/ | Office | Nephrology | Jewel Ulloa MD | | | 2019 | Visit | | [address] [place] | | | | | | [address] [place] | | | | | | [address] | | | | | | | [...]
--- OUTSIDE RECORDS SUMMARY | ~2019-07-10 | XMS | Encounter Summary ---
Demographics + + + | Address | [address] | | | [place] [address] | + + + | Home Phone [...] [place] | | | | | [address] | | + + + + + Care Team Providers + +------+ + | Care Train Master Name | Role | Phone | + [...] Rd | | | | | | [place], [place] | | | | | | [address] | | | | | | [phone] | | | | | | | | +--------+---------+ + + + documented as of this encounter Visit Diagnoses Not on filedocumented in this encounter"
--- OUTSIDE RECORDS SUMMARY | ~2019-07-10 | XMS | Encounter Summary ---
Demographics + + + | Address | [address] | | | [place] [address] | + + + | Home Phone [...] Team Providers + +------+ + | Care Mixing Plant Operator Name | Role | Phone | + +------+ + | Sarah Carroll MD | PCP | | + +------+ + Encounter Details +--------+ + + + + | Date | Type | Department | Care Team | Description | +--------+ + + + + | 12/18/ | Orders Only | [facility] | Jewel Ulloa MD | | | 2019 | | NEPHROLOGY [place] | [address] [place] | | | | | [address] [place] | [address] [place], [place] | | | | | [address] [place], [place] | [address] | | | | | [address] | | | | | | [phone] | | | +--------+ + + + [...] | 07/13/ | Office | Cardiology | Ileaan Henson | | | 2018 | Visit | | [address] | | | | | | [address] | | | | | | [place] [address] | | | | | | [phone] | | | | | | | | +--------+---------+ + + + | 12/02/ | Office | Cardiology | Lorraine Clifton DO | | | 2019 | Visit | | [address] | | | | | | [place] | | | | | | [address] | | | | | | | | +--------+---------+ + + + | 12/13/ | Office | Nephrology | Jewel Ulloa MD | | | 2019 | Visit | | [address] [facility] | | | | | | [address] [place] | | | | | | [address] | | | | | | | [...] | | | LAB | | | NEPALESE | | | | | + + [...]
--- OUTSIDE RECORDS SUMMARY | ~2019-07-10 | XMS | Encounter Summary ---
Demographics + + + | Address | [address] | | | [place] [address] | + + + | Home Phone | | + + + | Preferred Language | Unknown | + + + | Marital Status | Single | + + + | Holiness Affiliation | 1077 | + + + | Race | Unknown | + + + | Ethnic Group | Unknown | + + + Author + + + | Author | [facility] | | | and [place] | + + + | Organization | [facility] | | [...] Providers + +------+ + | Care Front Office Administrator Name | Role | Phone | [...] | | | | | | | [phone] | | | | | | | Fax: | | | | | | | [phone] | | +--------+ + + + + [...] | | | neoplasm of | | [phone] | | | | | sigmoid | | Fax: | | | | | colon (HCC) | | [phone] | | | | | [C18.7] | | | | | | | Procedures | | | | | | | NV PART | | | | | | [...] + + | 08/16/ | Hospital | [facility] | Mehul Kinsey, | Surgery follow-up | | 2018 - | Encounter | [facility] | [address] | (Primary Dx) | | | | SURGICAL [address] | [place] | | | 08/23/ | | [place] | [phone] | | | 2018 | | [address] | | | | | | [phone] | | | +--------+ + + + [...] Electronically signed by: Oumou Kinsey, 08/22/2017 6:48 [facility] documented in this encounter Discharge Instructions Instructions Gretel Peña RN - 08/23/2017 [facility] Patient Belongings Aaron [place] 1960 Valuables Dentures: None Vision - Corrective Lenses: None Hearing Aid: None Jewelry: None Clothing: Pants, Shirt, Footwear ( Duffel/CPAP/CANE/Hospital provided bag with clothing sen t to PACU pt. storage bins) Other Valuables: CPAP/BiPAP, Secured on Unit Other Valuables: None Home Medications: None Patient Signature: Clinician/Sr Community Manager Signature: Incision Care: Abdomen Dressing your [...] by your healthcare provider Date Last Reviewed: 07/12/201619993195-5243 [employer]. [address] [place] [address], [place] [address]. All righ ts reserved. This information is [...] You may c ough up blood. 2015 [employer] All illustrations and images included in CareNotes a re the copyrighted property of [employer] or [employer]. documented in this encounter Medications at Time [...] 0700 08/23/17 07 - 08/24/17 0700 Shift 0024-1565 5627-3633 24 Hour Total 6907-8411 7305-1413 24 Hour Total I N T A [...] they do not service the area in [place] where patient lives. Called [facility] in [place]. Made referral. They will verify insurance and [...] with her in her mobile home in [place], [place]. She is agreeable to home health and after review of choice s, chose [facility]. Referral made to [facility] by voicemail and fa x. Will await response from them on whether they can follow; would need to call them when pt d/c's but otherwise they can follow in [facility]. Pt will have a friend [...] 8.5 9.0 Radiology data: No results found. [facility] MD - 08/20/2017 6:52 AM [...] 0700 08/20/17 0701 - 08/21/17 0700 Shift 4981-8573 7079-1574 24 Hour Total 8162-4931 2015-0720 24 Hour Total I N T A [...] data: No results found. Eda Marrero V, BOARD CERTIFIED FAMILY PHYSICIAN - 08/20/2017 4:20 AM PSTPt refused to [...] 0700 08/19/17 07 - 08/20/17 0700 Shift 8537-3920 3602-7752 24 Hour Total 0738-4310 0371-8812 24 Hour Total I N T A [...] (mL/kg) 1400 (8.9) 2675 (17) 4075 (26) [facility] -521 -8540 -1938 Weight (kg) 156.9 156.9 156.9 156.9 156.9 [...] - 08/18/17 0708/18/17700 - 08/19/17 07 Shift 7254-0329 6143-7841 24 Hour Total 2801-8972 6623-7927 24 Hour Total I N T A [...] - 08/17/17 0708/17/17700 - 08/18/17 07 Shift 4810-4710 24 Hour Total 3097-9762 9115-6762 24 Hour Total I N T A [...] U T P U T Urine (mL/kg/hr) 875 794 4556 (0.7) 1300 Blood 150 Shift Total (mL/kg) [...] [address] | | | | | | [place] [address] | | | | | | [phone] | | | | | | | | +--------+---------+ + + + | 12/02/ | Office | Cardiology | Lorraine Clifton DO | | | 2019 | Visit | | [address] | | | | | | [place], [place] | | | | | | [address] | | | | | | | | +--------+---------+ + + + | 12/13/ | Office | Nephrology | Jewel Ulloa MD | | | 2020 | Visit | | [address] [facility] | | | | | | [address] [facility] [place] | | | | | | [address] | | | | | | | [...] | [address] | [place] [address] | | | [facility] | [...] + + | ROBERTA WADSWOR[facility] | [address] | [place] [address] | | | [facility] | | | | | LABORATORY [...] + + | Glucose | 149 (H)Comment: Ivorian | 65 - 99 mg/dL | [facility] [...] + + | ROBERTA [facility] | [address] | [place] [address] | | | [facility]ART [facility] | | | | | LABORATORY | | | | + + + + + Surgical Pathology Exam (08/16/2017 12:53 PM PST) + + | Specimen | + + | | + + + + + | Narrative | Performed At | + + + | SURGICAL PATHOLOGY REPORT | [facility] | | Date Taken: 08/16/2017 Date Received: 08/16/2017 | [facility] | | Completed: 08/20/2017 Physician: Mehul KINSEY Copy to: [facility] | | DIAGNOSIS: Colon, sigmoid, segmental resection: [...] cm to 0.5 cm in greatest dimension. Tank Insulator [employer]ber | | | sections are submitted as [...] the pathologic diagnosis. A: | | | [id number], 66432, 43955, 05624, 62153(e) | | | PROCEDURES/ADDENDA SPECIAL STAINS DIAGNOSIS: [...] developed and their performance characteristics determined by [facility] | | | [facility]. This test is used for clinical | | | purposes. It should not be regarded as investigational or for | | | research. [facility] is certified under the Clinical | | | Laboratory Improvement Amendments of 1988 (CLIA) as qualified to | | | perform high complexity clinical laboratory testing. Comment: | | | Breast predictive markers have not been validated on decalcified | | | specimens. Bladimir Staley MD Testing performed | | | at: [facility] | | | Michelle Arredondo, Director [address] [place] [address] Av [address] [place], [place] | | | [address] | | + + + + + + + + | Performing | Address | City/State/[facility] Corporation[facility] | Phone Number | | Organization | | | | + + + + + | [facility] | [address] | [place] [address] | | | [facility] | | | | | LABORATORY [...] + + | Glucose | 113 (H)Comment: Ivorian | 65 - 99 mg/dL | [facility] | | | | Diabetes Association | [...] + + | PROVIDEDEYSIE SACRED | [address] | [place] [address] | | | [facility] | [...] + + | ROBERTA WADSWORTH | [address] | [place] [address] | | | [facility] | | | | | LABORATORY [...] | [facility] | [address] | [place] [address] | | | [facility] | | | | | LABORATORY [...] + | ROBERTA WADSWORTH | [address] | [place] [address] | | | [facility] | | | | | LABORATORY [...] | t Upper | | Units, Subcutaneous, TAX ANALYST, | | AM PST | | | [...] | | | | (DILAUDID) 1 mg/mL SUPERVISOR COMPUTER OPERATIONS | | 18 8:26 | | | | | Intravenous, CONTINUOUS, Starting | | AM PST | | | | | 08/16/17 at 1530, for adult | | | | | | | patients 65 years and older [place] | | | | | | | risk of sleep apnea, Loading | | | | | | | Dose(mg): 0, Starting SUPERVISOR COMPUTER OPERATIONS | | | | | | | Dose(mg): 0.1, Incremental | | | | | | | Increase SUPERVISOR COMPUTER OPERATIONS Dose(mg): 0.1, | | | | | | | Maximum SUPERVISOR COMPUTER OPERATIONS Dose(mg): 0.2, | | | | | [...] policy and contact | | | provider plastics fabrication supervisor, | | + +---+ | | [...]
--- OUTSIDE RECORDS SUMMARY | ~2019-07-10 | XMS | Encounter Summary ---
Demographics + + + | Address | [address] | | | [place] [address] | + + + | Home Phone [...] [place] | | | | | [address] | | + + + + + Care Team Providers + +------+ + | Care Toddler Teacher Name | Role | Phone | [...] Rd | | | | | | [place], [place] | | | | | | [address] | | | | | | [phone] | | | | | | | | +--------+---------+ + + + documented as of this encounter Visit Diagnoses Not on filedocumented in this encounter"
--- OUTSIDE RECORDS SUMMARY | ~2019-07-10 | XMS | Encounter Summary ---
Demographics + + + | Address | [address] | | | [place] [address] | + + + | Home Phone [...] Team Providers + +------+ + | Care Plumber Apprentice Name | Role | Phone | + +------+ + | Sarah Carroll MD | PCP | | + +------+ + Encounter Details +--------+ + + + + | Date | Type | Department | Care Team | Description | +--------+ + + + + | 12/18/ | Orders Only | [facility] | Conversion | | | 2019 | | NEPHROLOGY [place] | Transaction, | | | | | [address] | Provider Unknown | | | | | [address] [place], [place] | [phone] | | | | | [address] | (Fax) | | | | | [phone] | | | +--------+ + + + [...] | | | | | [place] [address] | | | | | | [phone] | | | | | | | | +--------+---------+ + + + | 12/02/ | Office | Cardiology | Lorraine Clifton DO | | | 2019 | Visit | | [address] | | | | | | [place] | | | | | | [address] | | | | | | | | +--------+---------+ + + + | 12/13/ | Office | Nephrology | Jewel Ulloa MD | | | 2019 | Visit | | [address] [facility] | | | | | | [facility] | | | | | | [address] | | | | | | | [...]
--- OUTSIDE RECORDS SUMMARY | ~2019-07-10 | XMS | Encounter Summary ---
Demographics + + + | Address | [address] | | | [place] [address] | + + + | Home Phone [...] Team Providers + +------+ + | Care Small Engine Technician Name | Role | Phone | [...] | bilateral | [address] | | | | n | low back | [address] | [place], | | | | | pain with | [place], | [place] [address] | | | | | bilateral | [place] [address] | Phone: | | | | | sciatica | Phone: | [phone] | | | | | Bilateral | [phone] | Fax: | | | | | foot-drop | Fax: | [phone] | | | | | Numbness of | [phone] | | | | | | both lower | | | | | | | extremities | | | | | | | Procedures | | | | | | | AZ MOTOR | | | | | | | &/SENS / | | | | | | | NRV CNDJ | | | | | | | PRECONF | | | | | | | ELTRODE LIMB | | | | | | | AZ NEEDLE | | | | | | | EMG EA | | | | | | | EXTREMITY | | | | | | | W/PARASPINL | | | | | | | AREA LIMITED | | | | | | | AZ MOTOR | | | | | | | &/SENS - | | | | | | | NRV CNDJ | | | | | | | PRECONF | | | | | | | ELTRODE LIMB | | | | | | | AZ OFFICE | | | | | | [...] PHYSIATRY [address] | MD [address] | polyneuropathy | | | | [place], | [place], [place] | (Primary Dx); | | | | [place] [address] | [address] | Chronic bilateral | | | | [phone] | | low back pain with | [...] might be different fro m the original. [facility] Physical Medicine & Rehabilitation [address] [place] [address], [address] [place] [address] Test Date: 01/12/2019 Patient Name: Aaron [place] : 1960 Physician: Riccardo Malhotra MD () MR #: [id number] Sex: Male Referring Physician: Sarah Carroll HISTORY: [...] [place], over [facility] was spent formulating and discussing their [...] | 07/13/ | Office | Cardiology | Ielana Henson | | | 2019 | Visit | | [address] | | | | | | [address] | | | | | | [place] [address] | | | | | | [phone] | | | | | | | | +--------+---------+ + + + | 12/02/ | Office | Cardiology | Lorraine Clifton DO | | | 2019 | Visit | | [address] | | | | | | [place] | | | | | | [address] | | | | | | | | +--------+---------+ + + + | 12/13/ | Office | Nephrology | Jewel Ulloa MD | | | 2019 | Visit | | [address] | | | | | | [address] [place] | | | | | | [address] | | | | | | | [...]
--- OUTSIDE RECORDS SUMMARY | ~2019-07-10 | XMS | Encounter Summary ---
Demographics + + + | Address | [address] | | | [place] [address] | + + + | Home Phone [...] [place] | | | | | [address] | | + + + + + Care Team Providers + +------+ + | Care Nursing Surgical Services Director Name | Role | Phone | [...] | | unspecified | [place], [place] | [place] | | | | | type | [address] | [address] | | | | | Procedures | Phone: | [place], | | | | | CONSULT TO | [phone] | [place] [address] | | | | | GI PROCEDURE | Fax: | Phone: | | | | | UNIT: | [phone] | [phone] | | | | | COLONOSCOPY | | Fax: | | | | | | | [phone] | + +--------+ + + + + Encounter Details +--------+ + + + + | Date | Type | Department | Care Team | Description | +--------+ + + + + | 07/01/ | Veterinary X Ray Operator | Digestive Health | [place], | Polyp of colon, | | 2018 | | [place] [facility] [address] | MD [address] | unspecified part of | | | | SARAH Grijalva | [address] | colon, unspecified | | | | Mailcode: Center | [facility] [place] | type (Primary Dx) | | | | for Health and | [address] | | | | | [facility] | [phone] | | | | | [place], [place] | | | | | | [address] | | | | | | [phone] | | | +--------+ + + + [...] | | 2019 | Visit | | [address] | | | | | | [address] | | | | | | [place], [place] | | | | | | [address] | | | | | | [phone] | | | | | | | | +--------+---------+ + + + documented as of this encounter Visit Diagnoses + + | Diagnosis | + + | Polyp of colon, unspecified part of colon, unspecified type - Primary | + + documented in this encounter"
--- OUTSIDE RECORDS SUMMARY | ~2019-07-10 | XMS | Encounter Summary ---
Demographics + + + | Address | [address] | | | [place] [address] | + + + | Home Phone [...] Providers + +------+ + | Care Supervisor Production Managing Name | Role | Phone | + +------+ + | Sarah Carroll MD | PCP | | + +------+ + Reason for Referral Diagnostic/Screening (Routine) + +--------+ + + + + | Status | Reason | Specialty | Diagnoses / | Referred By | Referred To | | | | | Procedures | Contact | Contact | + +--------+ + + + + | Authorized | | | Diagnoses | [facility] | [address] | | | | | Paroxysmal | Ileana Gonzalez | [facility] | | | | | atrial | [address] | [address] | | | | | fibrillation | [address] | [place] LIAO | | | | | (HCC) | [address] | [place], [place] | | | | | Chronic | [place] | [address] | | | | | combined | [address] | Phone: | | | | | systolic and | Phone: | [phone] | | | | | diastolic | [phone] | Fax: | | | | | congestive | Fax: | [phone] | | | | | heart | [phone] | | | | | | failure [...] | | | Complete | | | + +--------+ + + [...] Cardiology | combined | [address] | [address] | | | | | systolic | Aldair Liao | [place] | | | | | (congestive) | [place] | [place] | | | | | and | [place] [address] | [place], [place] | | | | | diastolic | Phone: | [address] Phone: | | | | | (congestive) | [phone] | [phone] | | | | | heart | Fax: | Fax: | | | | | failure | [phone] | [phone] | | | | | (HCC) 6 | | | | | | | month f/u | | | | | | | Procedures | | | | | | | [place] OFFICE | | | | | | [...] + + | 06/01/ | Office | [facility] | Ileana Henson | Paroxysmal atrial | | 2019 | Visit | CARDIOLOGY [place] | [address] | fibrillation (HCC) | | | | [address] | [place] [address] | (Primary Dx); | | | | [address] | [place] [address] | Chronic combined | | | | [place], [place] | [phone] | systolic and | | | | [address] | | diastolic congestive | | | | [phone] | | heart failure | | | [...] you an Echo to be done at [facility] I made changes to medications : [...] He is managed on Coumadin for his QFX0TS4 2 VASC score of 2 which is managed by the [facility] Coumadin clinic. He was hospitalized in July 2017 at [facility] for acute GI bleeding, where a [...] surgery 08/16/2017 by , colorectal surgeon in [place], with low anterior resection with open approach, did not require any Chemo or radiation, He also followed up Dr. Cross in [place], and had left nephrectomy 06/11/2018 for reji [...] 324 pounds after he had been hospitali d, but has struggled to remain less than [...] he had a colonoscopy performed at [facility] last month, but needs to be repeated, as prep not effective enough. 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 Cross in [place] Denies hematuria. Denies history of benign prostatic [...] illicit drug use. Exercises sporadically . 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 Lives with his [...] for: TOTEPI CARDIAC PROCEDURES/IMAGING Last Cath: 02/06/2017 ([facility]) Separate ostia of the left [...] inadequate TR jet. Pulmonic valve normal, trace GA. No p ericardial effusion. IVC 1.5-2.5 cm, [...] block. Bifascicular Block: Rate 5 8 bpm, GA 222 ms, QRS 156 ms, QTC 475 ms EK03/11: Sinus bradycardia with first-degree A-V block. Bi fascicular block. Rate 59 bpm, GA 238 ms, QRS 160 ms, QTC 481 ms, compared to EKG done in January first-degree A-V b lock has increased slightly,tracing personally reviewed by me EK08/01: Sinus rhythm with first-degree AV block. Left axis deviation and a right bundle branch block. Rate 65 bpm, GA 230 ms, QRS 162 ms, QTC 497 ms, when compared to EKG done in February 2017, GA interval has decreased slightly and QTC has increased ,tracing person ally reviewed by me EK10/30/2018: Sinus rhythm with first-degree AV block bifascicular block, old septal infa rct. Rate 66 bpm, GA 250 ms, QRS 156 ms, QTC 475 [...] with Dr. Lorraine Clifton as his primary asphalt blender in 6 months, but I will [...] contain inadvertent rec ognition errors. Ethan ARREOLA [facility] Cardiology 06/01/2019 docum ented in this encounter [...] [address] | | | | | | [place] [address] | | | | | | [phone] | | | | | | | | +--------+---------+ + + + | 12/02/ | Office | Cardiology | Lorraine Clifton DO | | | 2019 | Visit | | [address] | | | | | | [place] | | | | | | [address] | | | | | | | | +--------+---------+ + + + | 12/13/ | Office | Nephrology | Jewel Ulloa MD | | | 2019 | Visit | | [address] [facility] | | | | | | [address] [place] | | | | | | [address] | | | | | | | [...] | | | | | | dilatation ([facility]) | | + + +--------+ + + [...]
--- OUTSIDE RECORDS SUMMARY | ~2019-07-10 | XMS | Encounter Summary ---
Demographics + + + | Address | [address] | | | [place] [address] | + + + | Home Phone [...] + + + | Author | [facility] | | | and [place] | + + + | Organization | [facility] | | | [...] Team Providers + +------+ + | Care Book Sewer Name | Role | Phone | [...] | MED CTR [facility]TER[facility] | MD Kaitlin [address] | | | | | IMAGING | Terry SMITH | | | | | [phone] | [place] [address] | | +--------+ + + + + [...] | | | | | [place] [address] | | | | | | [phone] | | | | | | | | +--------+---------+ + + + | 12/02/ | Office | Cardiology | Lorraine Clifton DO | | | 2019 | Visit | | [address] | | | | | | [place] | | | | | | [address] | | | | | | | | +--------+---------+ + + + | 12/13/ | Office | Nephrology | Jewel Ulloa MD | | | 2019 | Visit | | [address] [facility] | | | | | | [address] [place], [place] | | | | | | [address] | | | | | | | [...]
--- OUTSIDE RECORDS SUMMARY | ~2019-07-10 | XMS | Encounter Summary ---
Demographics + + + | Address | [address] | | | [place] [address] | + + + | Home Phone [...] Team Providers + +------+ + | Care Long Distance Billing Operator Name | Role | Phone | + +------+ + | Sarah Carroll MD | PCP | | + +------+ + Encounter Details +--------+ + + + + | Date | Type | Department | Care Team | Description | +--------+ + + + + | 05/21/ | Orders Only | [facility] | Patrice Cross MD | Renal mass (Primary | | 2018 | | [address] | [address] | Dx); Pre-operative | | | | [address] | [address] [place] | cardiovascular | | | | [place] | [address] | examination; | | | | [address] | | Pre-operative | | | | [phone] | | laboratory | | | | [...] [address] | | | | | | [place] [address] | | | | | | [phone] | | | | | | | | +--------+---------+ + + + | 12/02/ | Office | Cardiology | Lorraine Clifton DO | | | 2019 | Visit | | [address] | | | | | | [place] | | | | | | [address] | | | | | | | | +--------+---------+ + + + | 12/13/ | Office | Nephrology | Jewel Ulloa MD | | | 2019 | Visit | | [address] | | | | | | [address] [place] | | | | | | [address] | | | | | | | [...]
--- OUTSIDE RECORDS SUMMARY | ~2019-07-10 | XMS | Encounter Summary ---
Demographics + + + | Address | [address] | | | [place] [address] | + + + | Home Phone [...] [place] | | | | | [address] | | + + + + + Care Team Providers + +------+ + | Care Digital Media Director Name | Role | Phone | [...] 07/02/ | Telephone | [facility] | [place], | Telephone follow-up | | 2019 | | [address] | MD Charles [address] | | | | | N[place] G[place]al[place] Mailcode: | Jeffery De La Torre Rosario | | | | | [address] [place] [address] | [place], [place] | | | | | Health and Healing, | [address] | | | | | Building 2 | [phone] | | | | | [place], [place] | | | | | | [address] | | | | | | [phone] | | | +--------+ + + + [...] Rd | | | | | | [place], [place] | | | | | | [address] | | | | | | [phone] | | | | | | | | +--------+---------+ + + + documented as of this encounter Visit Diagnoses Not on filedocumented in this encounter"
--- OUTSIDE RECORDS SUMMARY | ~2019-07-10 | XMS | Encounter Summary ---
Demographics + + + | Address | [address] | | | [place] [address] | + + + | Home Phone [...] + + + | Author | [facility] | | | and [place] | + + + | Organization | [facility] | | [...] Team Providers + +------+ + | Care Equipment Associate Name | Role | Phone | + [...] + + | 02/06/ | Telephone | [facility] | Patrice Cross MD | Other | | 2018 | | [address] [place] | [address] | | | | | [address] [place], [place] | [address] [place], [place] | | | | | [address] | [address] | | | | | [phone] | | | +--------+ + + + [...] [address] | | | | | | [place] [address] | | | | | | [phone] | | | | | | | | +--------+---------+ + + + | 04/23/ | Office | Cardiology | Lorraine Clifton DO | | | 2019 | Visit | | [address] | | | | | | [place] | | | | | | [address] | | | | | | | | +--------+---------+ + + + | 12/13/ | Office | Nephrology | Jewel Ulloa MD | | | 2019 | Visit | | [address] | | | | | | [address] [place] | | | | | | [address] | | | | | | | | +--------+---------+ + + + documented as of this encounter Visit Diagnoses Not on filedocumented in this encounter"
--- OUTSIDE RECORDS SUMMARY | ~2019-07-10 | XMS | Encounter Summary ---
Demographics + + + | Address | [address] | | | [place] [address] | + + + | Home Phone [...] [place] | | | | | [address] | | + + + + + Care Team Providers + +------+ + | Care Anesthesiology Teacher Name | Role | Phone | [...] Encounter | Procedural Unit | MD Steven [address] | | | | | ([facility]) at [facility] [address] | | | | | [place] G[place] | [place], [place] | | | | | Mailcode: [place] | [address] | | | | | for [facility] and | [phone] | | | | | [facility] 2 | | | | | | [place], [place] | | | | | | [address] | | | | | | [phone] | | | +--------+ + + + [...] Call the endoscopy department toll free ext. [phone] or After business hours or on weekends and holidays call the Hospital Baller Tender toll free [phone] Ext. [phone] or and have the GI doctor farm demonstrator paged. The provider who performed your procedure [...] 11:54 AM PDT PRE PROCEDURE NOTE: MR# [id number] Subjective: Aaron Latham is a 59 y.o. [...] | 2019 | Visit | | [address] [facility] | | | | | | [facility] | | | | | | [place], [place] | | | | | | [address] | | | | | | [phone] | | | | | | | [...] 0.9 - 1.2 INR | [facility], | | | TIME | | | [...] [place] | [address] | [place] [address] | | | OF CARE TESTS | | | | + + + + + COLONOSCOPY (04/14/2019 11:50 AM PDT) + + | Specimen | + + | | + + + + + | Narrative | Performed At | + + + | MRN: | [facility] | | [id number] Date: 04/14/2019Patient Name: Aaron Justin #: | ENDOSCOPY | | [id number] of : 1960SN: [id number] Type: | | | AmbulatoryRoom: Endo 5Procedure: [...] RN (Nurse), NGHIA YBARRA | | | (Geometry Professor), GENECRE BASCON | | | (Geometry Professor)Referring MD: JACK TINOCO JR, | | | [...] the procedure. The Olympus | | | [id number] Colonoscope #[id number] was introduced | | | through the [...] questions, please contact the | | | president/gm production & live experiences. - Stop | | | anticoagulation (coumadin) [...]
--- OUTSIDE RECORDS SUMMARY | ~2019-07-10 | XMS | Encounter Summary ---
Demographics + + + | Address | [address] | | | [place] [address] | + + + | Home Phone | | + + + | Preferred Language | Unknown | + + + | Marital Status | Single | + + + | Orthodox Affiliation | 1077 | + + + | Race | Unknown | + + + | Ethnic Group | Unknown | + + + Author + + + | Author | [facility] | | | and [place] | + + + | Organization | [facility] | | | [...] Team Providers + +------+ + | Care Ice Cutter Name | Role | Phone | [...] Provider Unknown | | | | | [address] | [phone] | | | | | [phone] | | | +--------+ + + + [...] | | | | | [place] [address] | | | | | | [phone] | | | | | | | | +--------+---------+ + + + | 12/02/ | Office | Cardiology | Lorraine Clifton DO | | | 2019 | Visit | | [address] | | | | | | [place] | | | | | | [address] | | | | | | | | +--------+---------+ + + + | 12/13/ | Office | Nephrology | Jewel Ulloa MD | | | 2019 | Visit | | [address] | | | | | | [address] [place] | | | | | | [address] | | | | | | | [...]
--- OUTSIDE RECORDS SUMMARY | ~2019-07-10 | XMS | Encounter Summary ---
Demographics + + + | Address | [address] | | | [place] [address] | + + + | Home Phone | | + + + | Preferred Language | Unknown | + + + | Marital Status | Single | + + + | Mandaen Affiliation | LDS | + + + [...] [place] | | | | | [address] | | + + + + + Care Team Providers + +------+ + | Care Eye Glass Frame Polisher Name | Role | Phone | + +------+ + PCP | Unavailable | + +------+ + Encounter Details +--------+ + + + + | Date | Type | Department | Care Team | Description | +--------+ + + + + | 01/14/ | Abstract | [facility] | Clinic, Surgery | | | 2019 | | [place] [facility] [address] | | | | | | [address] | | | | | | Mailcode: [place] | | | | | | for Health and | | | | | | Healing, Building 2 | | | | | | [facility] [place] | | | | | | [address] | | | | | | [phone] | | | +--------+ + + + [...] | | 2019 | Visit | | [address] | | | | | | [address] | | | | | | [place], [place] | | | | | | [address] | | | | | | [phone] | | | | | | | | +--------+---------+ + + + documented as of this encounter Visit Diagnoses Not on filedocumented in this encounter"
--- OUTSIDE RECORDS SUMMARY | ~2019-07-10 | XMS | Encounter Summary ---
Demographics + + + | Address | [address] | | | [place] [address] | + + + | Home Phone | | + + + | Preferred Language | Unknown | + + + | Marital Status | Single | + + + | Methodist Affiliation | 1077 | + + + | Race | Unknown | + + + | Ethnic Group | Unknown | + + + Author + + + | Author | [facility] | | | and [place] | + + + | Organization | [facility] | | | [...] Team Providers + +------+ + | Care Health Information Manager Name | Role | Phone | [...] | | Paroxysmal | Ileana Gonzalez | [facility] | | | | | atrial | [facility] [address] | [address] | | | | | fibrillation | [address] | [place]O | | | | | (HCC) | [address] | [place], [place] | | | | | Chronic | [place], [place] | [address] | | | | | combined | [address] | Phone: | | | | | systolic and | Phone: | [phone] | | | | | diastolic | [phone] | Fax: | | | | | congestive | Fax: | [phone] | | | | | heart | [phone] | | | | | | failure [...] Cardiology | combined | [address] | [facility] [address] | | | | | systolic | Aldair Liao | [address] | | | | | (congestive) | [place] | [place] | | | | | and | [place] [address] | [place], [place] | | | | | diastolic | Phone: | [phone] Phone: | | | | | (congestive) | [phone] | [phone] | | | | | heart | Fax: | Fax: | | | | | failure | [phone] | [phone] | | | | | (HCC) 6 | | | | | | | month f/u | | | | | | | Procedures | | | | | | | MO OFFICE | | | | | | [...] + + | 06/01/ | Office | [facility] | Ileana Henson | Paroxysmal atrial | | 2019 | Visit | CARDIOLOGY [place] | [address] | fibrillation (HCC) | | | | [address] | [place] | (Primary Dx); | | | | [address] | [place] [address] | Chronic combined | | | | [place], [place] | [phone] | systolic and | | | | [address] | | diastolic congestive | | | | [phone] | | heart failure | | | [...] you an Echo to be done at [facility] I made changes to medications : take [...] He is managed on Coumadin for his [id number] 2 VASC score of 2 which is managed by the [facility] Coumad[facility] clinic. He was hospitalized in July 2017 at [facility] for acute GI bleeding, where a mass [...] surgery 08/16/2017 by , colorectal surgeon in [place], with low anterior resection with open approach, did not require any Chemo or radiation, He also followed up Dr. Cross in [place], and had left nephrectomy 06/11/2018 for reji [...] reports he had a colonoscopy performed at [facility] last month, but needs to be repeated, as prep not effective enough. 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 Cross in [place] Denies hematuria. Denies history of benign prostatic [...] illicit drug use. Exercises sporadically . 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 Lives with his [...] for: TOTEPI CARDIAC PROCEDURES/IMAGING Last Cath: 02/06/2017 ([facility]) Separate ostia of the left anterior [...] inadequate TR jet. Pulmonic valve normal, trace MO. No p ericardial effusion. IVC 1.5-2.5 cm, [...] block. Bifascicular Block: Rate 5 8 bpm, MO 222 ms, QRS 156 ms, QTC 475 ms EK03/11: Sinus bradycardia with first-degree A-V block. Bi fascicular block. Rate 59 bpm, MO 238 ms, QRS 160 ms, QTC 481 ms, compared to EKG done in January first-degree A-V b lock has increased slightly,tracing personally reviewed by me EK08/01: Sinus rhythm with first-degree AV block. Left axis deviation and a right bundle branch block. Rate 65 bpm, MO 230 ms, QRS 162 ms, QTC 497 ms, when compared to EKG done in February 2017, MO interval has decreased slightly and QTC has increased ,tracing person ally reviewed by me EK10/30/2018: Sinus rhythm with first-degree AV block bifascicular block, old septal infa rct. Rate 66 bpm, MO 250 ms, QRS 156 ms, QTC 475 [...] with Dr. Lorraine Clifton as his primary cad design engineer in 6 months, but I will also [...] contain inadvertent rec ognition errors. Ethan ARREOLA [facility] Cardiology 06/01/2019 docum ented in [...] [address] | | | | | | [place] [address] | | | | | | [phone] | | | | | | | | +--------+---------+ + + + | 12/02/ | Office | Cardiology | Lorraine Clifton DO | | | 2019 | Visit | | [address] | | | | | | [place] | | | | | | [address] | | | | | | | | +--------+---------+ + + + | 12/13/ | Office | Nephrology | Jewel Ulloa MD | | | 2019 | Visit | | [address] [facility] [place] | | | | | | [address] [place] | | | | | | [address] | | | | | | | [...] | | | | | | dilatation ([facility]) | | + + +--------+ [...]
--- OUTSIDE RECORDS SUMMARY | ~2019-07-10 | XMS | Encounter Summary ---
Demographics + + + | Address | [address] | | | [place] [address] | + + + | Home Phone [...] Providers + +------+ + | Care Agricultural Equipment Salesperson Name | Role | Phone | + +------+ + | Sarah Carroll MD | PCP | | + +------+ + Encounter Details +--------+ + + + + | Date | Type | Department | Care Team | Description | +--------+ + + + + | 04/30/ | Orders Only | [facility] | Patrice Cross MD | Renal mass (Primary | | 2018 | | [address] | [address] | Dx) | | | | [address] [place] | [address] [place] | | | | | [address] | [address] | | | | | [phone] | | | +--------+ + + + [...] [address] | | | | | | [place] [address] | | | | | | [phone] | | | | | | | | +--------+---------+ + + + | 12/02/ | Office | Cardiology | Lorraine Clifton DO | | | 2019 | Visit | | [address] | | | | | | [place] | | | | | | [address] | | | | | | | | +--------+---------+ + + + | 12/13/ | Office | Nephrology | Jewel Ulloa MD | | | 2019 | Visit | | [address] [facility] [address] | | | | | | [address] [place] | | | | | | [address] | | | | | | | [...]
--- OUTSIDE RECORDS SUMMARY | ~2019-07-10 | XMS | Encounter Summary ---
Demographics + + + | Address | [address] | | | [place] [address] | + + + | Home Phone [...] Team Providers + +------+ + | Care Capacitor Tester Name | Role | Phone | + +------+ + | Sarah Carroll MD | PCP | | + +------+ + Encounter Details +--------+ + + + + | Date | Type | Department | Care Team | Description | +--------+ + + + + | 01/02/ | Orders Only | [facility] | Jewel Ulloa MD | | | 2019 | | NEPRHOLOGY [place] | [address] | | | | | [address] | 160 [place], [place] | | | | | [address] [place], [place] | [address] | | | | | [address] | | | | | | [phone] | | | +--------+ + + + [...] | | | | | [place] [address] | | | | | | [phone] | | | | | | | | +--------+---------+ + + + | 12/02/ | Office | Cardiology | Lorraine Clifton DO | | | 2019 | Visit | | [address] | | | | | | [place] | | | | | | [address] | | | | | | | | +--------+---------+ + + + | 12/13/ | Office | Nephrology | Jewel Ulloa MD | | | 2019 | Visit | | [address] [facility] | | | | | | 160 [place], [place] | | | | | | [address] | | | | | | | [...] | | | LAB | | | [place] | | | | | + + [...]
--- OUTSIDE RECORDS SUMMARY | ~2019-07-10 | XMS | Encounter Summary ---
Demographics + + + | Address | [address] | | | [place] [address] | + + + | Home Phone [...] Providers + +------+ + | Care Health Sciences Manager Name | Role | Phone | + +------+ + | Sarah Carroll MD | PCP | | + +------+ + Encounter Details +--------+ + + + + | Date | Type | Department | Care Team | Description | +--------+ + + + + | 02/04/ | Orders Only | [facility] | Conversion | | | 2019 | | NEPHROLOGY [place] | Transaction, | | | | | [address] | Provider Unknown | | | | | [address] [place], [place] | [phone] | | | | | [address] | (Fax) | | | | | [phone] | | | +--------+ + + + [...] | | | | | [place] [address] | | | | | | [phone] | | | | | | | | +--------+---------+ + + + | 12/02/ | Office | Cardiology | Lorraine Clifton DO | | | 2019 | Visit | | [address] | | | | | | [place] | | | | | | [address] | | | | | | | | +--------+---------+ + + + | 12/13/ | Office | Nephrology | Jewel Ulloa MD | | | 2019 | Visit | | [address] [facility] | | | | | | [address] [facility] | | | | | | [address] | | | | | | | [...]
--- OUTSIDE RECORDS SUMMARY | ~2019-07-10 | XMS | Encounter Summary ---
Demographics + + + | Address | [address] | | | [place] [address] | + + + | Home Phone [...] Team Providers + +------+ + | Care Section Laborer Name | Role | Phone | [...] | [facility] | MD Kaitlin [address] | | | | | IMAGING | Terry SMITH | | | | | [phone] | [place] [address] | | +--------+ + + + + [...] | | | | | [place] [address] | | | | | | [phone] | | | | | | | | +--------+---------+ + + + | 12/02/ | Office | Cardiology | Lorraine Clifton DO | | | 2019 | Visit | | [address] | | | | | | [place] | | | | | | [address] | | | | | | | | +--------+---------+ + + + | 12/13/ | Office | Nephrology | Jewel Ulloa MD | | | 2019 | Visit | | [address] [facility] | | | | | | [address] [place], [place] | | | | | | [address] | | | | | | | [...]
--- OUTSIDE RECORDS SUMMARY | ~2019-07-10 | XMS | Encounter Summary ---
Demographics + + + | Address | [address] | | | [place] [address] | + + + | Home Phone [...] [place] | | | | | [address] | | + + + + + Care Team Providers + +------+ + | Care Value Engineer Name | Role | Phone | [...] + + | 04/14/ | Anesthesia | [facility] | Paddy Pearson, | | | 2019 | Event | [address] | DO [address] | | | | | [place] Mailcode: | [address] | | | | | [address] for | [place], [place] | | | | | Health and Healing, | [address] | | | | | [facility] 2 | [phone] | | | | | [place], [place] | | | | | | [address] | | | | | | [phone] | | | +--------+ + + + [...] Rd | | | | | | [place], [place] | | | | | | [address] | | | | | | [phone] | | | | | | | [...]
--- OUTSIDE RECORDS SUMMARY | ~2019-07-10 | XMS | Encounter Summary ---
Demographics + + + | Address | [address] | | | [place] [address] | + + + | Home Phone [...] [place] | | | | | [address] | | + + + + + Care Team Providers + +------+ + | Care Supervisor Word Processing Name | Role | Phone | + +------+ + | Sarah Carroll MD | PCP | | + +------+ + Encounter Details +--------+ + + + + | Date | Type | Department | Care Team | Description | +--------+ + + + + | 02/09/ | Transcribe | [facility] | Transcribe | | | 2019 | Orders | [address] | Encounter, Provider, | | | | | [place] Mailcode: | [address] | | | | | [facility] | [place] [address] | | | | | Health and Healing, | | | | | | Building [address] | | | | | | [place], [place] | | | | | | [address] | | | | | | [phone] | | | +--------+ + + + [...] | | 2019 | Visit | | [address] | | | | | | [address] | | | | | | [place], [place] | | | | | | [address] | | | | | | [phone] | | | | | | | [...] + | MRN: | [facility] | | [id number] Date: 04/14/2019Patient Name: Aaron Justin #: | ENDOSCOPY | | [id number] of : 1960SN: [id number] Type: | | | AmbulatoryRoom: Endo 5Procedure: [...] RN (Nurse), NGHIA YBARRA | | | (Master Lay Out Specialist), PADMAJA ROSS | | | (Master Lay Out Specialist)Referring MD: JACK TINOCO JR, | | | [...] the procedure. The Olympus | | | [id number] Colonoscope #[id number] was introduced | | | through the [...] questions, please contact the | | | small kick press operator. - Stop | | | anticoagulation [...]
--- OUTSIDE RECORDS SUMMARY | ~2019-07-10 | XMS | Clinical Summary ---
Demographics + + + | Address | [address] [address] | | | [place] [address] | + + + | Home Phone | | + + + | Preferred Language | Unknown | + + + | Marital Status | Single | + + + | Episcopal Affiliation | 1077 | + + + | Race | Unknown | + + + | Ethnic Group | Unknown | + + + Author + + + | Author | [employer] (Historical as of | | | 03-28-19) | + + + | Organization | [facility] [employer] (Historical as of | | | 03-28-19) [...] [place], | | | | | [place] [address] | | + + + + + Care Team Providers + +------+ + | Care Electric Meter Inspector Name | Role | Phone | [...] +------+-------+ + | MEDICAID | [place] | [id number] | | | [address] | | | [address] | | | | [place] | | | [place] | | | | [address] | | | [place] | | | | | + +--------+ [...] | | al/Fam | | 1 | [phone] | [address] [place], | | | renetta | | | [address] | [place] [address] | + +--------+ +--------+ + +
--- OUTSIDE RECORDS SUMMARY | ~2019-07-10 | XMS | Encounter Summary ---
Demographics + + + | Address | [address] | | | [place] [address] | + + + | Home Phone [...] + +------+ + | Care Director Of Healthcare Systems Name | Role | Phone | + +------+ + | Sarah Carroll MD | PCP | | + +------+ + Encounter Details +--------+ + + + + | Date | Type | Department | Care Team | Description | +--------+ + + + + | 07/11/ | Orders Only | [facility] | Conversion | | | 2018 | | NEPRHOLOGY [place] | Transaction, | | | | | [address] | Provider Unknown | | | | | [address] [place], [place] | [phone] | | | | | [address] | | | | | | [phone] | | | +--------+ + + + [...] | | | | | | [place] [address] | | | | | | [phone] | | | | | | | | +--------+---------+ + + + | 12/02/ | Office | Cardiology | Lorraine Clifton DO | | | 2019 | Visit | | [address] | | | | | | [place] | | | | | | [address] | | | | | | | | +--------+---------+ + + + | 12/13/ | Office | Nephrology | Jewel Ulloa MD | | | 2019 | Visit | | [address] [facility] | | | | | | [address] [place], [place] | | | | | | [address] | | | | | | | [...]
--- OUTSIDE RECORDS SUMMARY | ~2019-07-10 | XMS | Encounter Summary ---
Demographics + + + | Address | [address] | | | [place] [address] | + + + | Home Phone | | + + + | Preferred Language | Unknown | + + + | Marital Status | Single | + + + | Congregational Affiliation | LDS | + + + [...] [place] | | | | | [address] | | + + + + + Care Team Providers + +------+ + | Care Roll Plugger Machine Operator Name | Role | Phone [...] | | | | | [address] | | | | | | [address] | | | | | | Travis Mailcode: UHN83 | | | | | | Harsh Mccormack | | | | | | [address] [place], [place] | | | | | | [address] | | | | | | [phone] | | | +--------+ + + + [...] 09/10/ | Office | Orthopedics | Richard Harevy, | | | 2019 | Visit | | [address] | | | | | | [address] | | | | | | [place], [place] | | | | | | [address] | | | | | | [phone] | | | | | | | | +--------+---------+ + + + documented as of this encounter Visit Diagnoses Not on filedocumented in this encounter"
--- OUTSIDE RECORDS SUMMARY | ~2019-07-10 | XMS | Encounter Summary ---
Demographics + + + | Address | [address] | | | [place] [address] | + + + | Home Phone [...] Team Providers + +------+ + | Care Cleaner Window Name | Role | Phone | + [...] | | | | hy Lumbar | [address] | [place], | | | | | radiculopath | [place], | [place] [address] | | | | | y Leg pain, | [place] [address] | Phone: | | | | | diffuse, | Phone: | [phone] | | | | | left | [phone] | Fax: | | | | | Paresthesia | Fax: | [phone] | | | | | of left leg | [phone] | | | | | | CRP [...] | | | | hy Lumbar | [address] | [address] | | | | | radiculopath | [place], | [address] | | | | | y Leg pain, | [place] [address] | [place] | | | | | diffuse, | Phone: | [place] [address] | | | | | left | [phone] | Phone: | | | | | Paresthesia | Fax: | [phone] | | | | | of left leg | [phone] | Fax: | | | | | CRP | | [phone] | | | | | elevated Ds [...] | | | | hy CRP | [address] | [place] | | | | | elevated Ds | [place], | PLACE | | | | | DNA | [place] [address] | [place] | | | | | antibody | Phone: | [address] | | | | | positive | [phone] | Phone: | | | | | Positive NICKIE | Fax: | [phone] | | | | | | [phone] | Fax: | | | | | (antinuclear | | [phone] | | | | | antibody) | [...] + + | 03/10/ | Office | [facility] [place] | Riccardo Malhotra, | Peripheral | | 2019 | Visit | PHYSIATRY [address] | [address] | polyneuropathy | | | | [place], | [place], [place] | (Primary Dx); Lumbar | | | | [place] [address] | [address] | radiculopathy; Leg | | | | [phone] | | pain, diffuse, left; | | [...] | | | | | spine; Positive NCIKIE | | | | | | (antinuclear [...] fro m the original. 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 The cranial nerves appear grossly intact. [...] neurology, a referral will be sent to [facility], based on his NCS results. We discussed [...] rheumatology referral has been sent t o [facility] under the classification of urgent. We highly encourage Aaron Latham to foll ow through with this referral promptly. 5. With Aaron Lathma and the possible diagnosis of Lupus we [...] radiculopathy. A referral has been sent to [facility] for a neurosurgeon consultation to jazmine [...] [address] | | | | | | [place] [address] | | | | | | [phone] | | | | | | | | +--------+---------+ + + + | 12/02/ | Office | Cardiology | Lorraine Clifton DO | | | 2019 | Visit | | [address] | | | | | | [place] | | | | | | [address] | | | | | | | | +--------+---------+ + + + | 12/13/ | Office | Nephrology | Jewel Ulloa MD | | | 2019 | Visit | | [address] [facility] | | | | | | [address] [place] | | | | | | [address] | | | | | | | [...]
--- OUTSIDE RECORDS SUMMARY | ~2019-07-10 | XMS | Encounter Summary ---
Demographics + + + | Address | [address] | | | [place] [address] | + + + | Home Phone [...] Team Providers + +------+ + | Care Atmospheric Drier Tender Name | Role | Phone | + +------+ + | Sarah Carroll MD | PCP | | + +------+ + Encounter Details +--------+ + + + + | Date | Type | Department | Care Team | Description | +--------+ + + + + | 07/28/ | Orders Only | [facility] | Jewel Ulloa MD | | | 2018 | | NEPHROLOGY [place] | [address] [place] | | | | | [address] [place] | [address] [place], [place] | | | | | [address] [place], [place] | [address] | | | | | [address] | | | | | | [phone] | | | +--------+ + + + [...] | | | | | [place] [address] | | | | | | [phone] | | | | | | | | +--------+---------+ + + + | 12/02/ | Office | Cardiology | Lorraine Clifton DO | | | 2019 | Visit | | [address] | | | | | | [place] | | | | | | [address] | | | | | | | | +--------+---------+ + + + | 12/13/ | Office | Nephrology | Jewel Ulloa MD | | | 2019 | Visit | | [address] [facility] | | | | | | [address] [place], [place] | | | | | | [address] | | | | | | | [...]
--- OUTSIDE RECORDS SUMMARY | ~2019-07-10 | XMS | Encounter Summary ---
Demographics + + + | Address | [address] | | | [place] [address] | + + + | Home Phone [...] Providers + +------+ + | Care Paper Pattern Folder Name | Role | Phone | + [...] | | | | Peritoneal | | [address] Phone: | | | | | adhesion | | [phone] | | | | | Procedures | | Fax: | | | | | [place] | | [phone] | | | | | BOWEL | | | | | | | ADHESION,ENT | | | | | | | EROLYSIS [place] | | | | | | | [...] 06/19/ | | [address] [place] | [address] | | | 2018 | | [address] | | | | | | [phone] | | | +--------+ + + + [...] might be different from t he original. [facility] UROLOGY DISCHARGE SUMMARY Patient Name: Lily Valentin [...] COUMADIN Discontinued Medications [place] Follow-Up: 1. [facility] in 1 week. Please call [phone] during business hours to set up your urology follow up appointm ent. Electronically Signed by: Patrice Cross MD, 06/16/2018 7:[address] [facility] documented in this encou nter Discharge Instructions Instructions Teresita Rodgers RN - 06/16/2018Formatting of this note might be different f rom the original. [facility] DISCHARGE INSTRUCTIONS FOLLOWING LAPAROSCOPIC REMOVAL OF [...] on your remaining kidney. CONTACT INFORMATION: - [facility] Office Number: [facility] Office: [facility] Office: FOLLOWUP INFORMATION: - Dr. Cross [...] Weakness, dizziness, or fainting Date Last Reviewed: 05/12/201619991923-0846 [employer] [place], [place] [id number]. All righ ts reserved. This information is [...] out or is dislodged Date Last Reviewed: 08/12/201619991986-0649 [employer]. [address] [place] [address], [place] [address]. All righ ts reserved. This information is [...] Were Given To: octavio and valubles to [facility] #[id number] 18 Patient Signature: Clinician/Hand Model Signature: documented in this encounter Medications at [...] 11:59 AM PSTPt has d/c orders to [place] SNF. Pt h as sacral friction [...] PA-C - 06/19/2018 7:[address] [facility] UROLOGY DAILY PROGRESS NOTE ID: Lily [...] by: Xavier Yip PA-C, 06/19/2018 7:[address] [facility] Sasha Blevins, [facility] - 06/18/2018 4:52 PM PSTSOCIAL WORK D/C PLAN: SNF ([facility]) vs home NEXT STEPS: [facility] SNF in [place], [place] has accepted pt pending insurance authorization. [...] SW called to [facility] SNF and they are yash [place]. SW spoke to Angelika, Director at [facility]. She stated that pt is not appropr iate for home health. She recommends SNF. She also stated that pt's insurance is difficult t o work with and only authorized 1 home health visit and it took 10 plus days to get auth'ed for any other home health visits. ASSESSMENT/CHART REVIEW: 58 year old male with [employer] [place]. Pt lives with his elderly mother. Pt is bariatric. D/C TRANSPORT: jasson Matta- [phone]. SW originally asked for him to pick [...] support at home. CONTACTS: Toby Valentin, mother- [phone] Electronically signed by JOSH Mcbride 06/18/2018 4:52 [...] D/C PLAN: SNF ([facility]) vs home? NEXT STEPS: Need PT to re-evaluate for disposition. PT can call this SW at [phone] to discuss d/c plan satya concerns. Awaiting returned call from [facility] SNF admissions ([phone]) re: if pt wo uld be appropriate [...] SARAH called to [facility] SNF and they a re reviewing. SW spoke to Angelika, Director at [facility]. She stated that pt is not appropr iate for home health. She recommends SNF. She also stated that pt's insurance is difficult t o work with and only authorized 1 home health visit and it took 10 plus days to get auth'ed for any other home health visits. ASSESSMENT/CHART REVIEW: 58 year old male with [employer] [place] insurance [place]. Pt lives with his elderly mother. Pt is bariatric. D/C TRANSPORT: jasson Matta- [phone]. SW originally asked for him to pick [...] support at home. CONTACTS: Toby Valentin, mother- [phone] Electronically signed by JOSH Mcbride 06/17/2018 4:38 PM Luanne, Kasia Brink RN - 06/17/2018 11:33 AM PSTFormatting of this no te might be different from the original. [facility] [...] week Electronically signed by: Kasia Cannon RN, [facility] DATE/TIME: 06/17/2018 11:36 Patrice Ag MD - 1 08/17/2017 8:05 AM PST [facility] UROLOGY DAILY PROGRESS NOTE ID: Lily [...] by: Patrice Cross MD, 06/17/2018 8:[address] [facility] Patrice Ag MD - 06/16 7:42 AM PST [facility] UROLOGY DAILY PROGRESS NOTE ID: Lily [...] by: Patrice Cross MD, 06/16/2018 7:[address] [facility] Jack Lewis MD - 06/15/2018 8:00 [...] 36 sec IMAGING: All images reviewed by nd NEDA08/15/2017 Large amount of gas in intestines, [...] lucero PA-C - 06/13/2018 12:20 PM PDT [facility] UROLOGY DAILY PROGRESS NOTE ID: Lily [...] by: Xavier Yip PA-C, 06/13/2018 12:[address] [facility] Associated attestation - Patrice Cross MD [...] Cross MD - 06/12/2018 5:33 AM PDT [facility] UROLOGY DAILY PROGRESS NOTE ID: Lily [...] by: Patrice Cross MD, 06/12/2018 5:[address] [facility] documented in this encou nter Plan of Treatment +--------+---------+ + + + | Date | Type | Specialty | Care Team | Description | +--------+---------+ + + + | 07/13/ | Office | Cardiology | Ileana Henson | | | 2019 | Visit | | RUPAL Gonzalez [address] | | | | | | [address] | | | | | | [place] [address] | | | | | | [phone] | | | | | | | | +--------+---------+ + + + | 12/02/ | Office | Cardiology | Lorraine Clifton DO | | | 2019 | Visit | | [address] | | | | | | [place] | | | | | | [address] | | | | | | | | +--------+---------+ + + + | 12/13/ | Office | Nephrology | Jewel Ulloa MD | | | 2019 | Visit | | [address] | | | | | | [address] [place] | | | | | | [address] | | | | | | | [...] | | | | to 3.5Performed by [facility] | | LABORATORY | | | | [address], [place], | | [place] | | | | [place] [address] | | | | + + + + + + + + | Specimen | + + | Blood specimen | | (specimen) | + + + + + + + | Performing | Address | City/State/Zipcode | Phone Number | | Organization | | | | + + + + + | [facility] | [address] | [place] [address] | | | [facility] | | | | | LABORATORY [...] [facility] | | | | Performed by [facility] [address] | | SACRED | | | | [address] [place] | | HEART | | | | [address] | | MEDICAL | | | | [...] + | PROVIDEDEYSIE SACRCHRISTIAN | [address] | [facility] [place] [address] | | | [facility] | | | | | LABORATORY KARENANER [...] | | | | to 3.5Performed by [facility] | | LABORATORY | | | | [address] [place], | | [place] | | | | [place] [address] | | | | + + + + + + + + | Specimen | + + | Blood specimen | | (specimen) | + + + + + + + | Performing | Address | City/State/Zipcode | Phone Number | | Organization | | | | + + + + + | [facility] | [address] | [place] [address] | | | [facility] | [...] | | | | to 3.5Performed by [facility] | | LABORATORY | | | | [address] [place], | | [place] | | | | [place] [address] | | | | + + + + + + + + | Specimen | + + | Blood specimen | | (specimen) | + + + + + + + | Performing | Address | City/State/Zipcode | Phone Number | | Organization | | | | + + + + + | [facility] | [address] | [place] [address] | | | [facility] | [...] [facility] | | | | Performed by [facility] [address] | | SACRED | | | | [address] [place] | | HEART | | | | [address] | | MEDICAL | | | | [...] + + | ROBERTA [facility]ADSWORTH | [address] | [place] [address] | | | [facility] | [...] | | | | to 3.5Performed by [facility] | | LABORATORY | | | | [address] [place], | | [place] | | | | [place] [address] | | | | + + + + + + + + | Specimen | + + | Blood specimen | | (specimen) | + + + + + + + | Performing | Address | City/State/Zipcode | Phone Number | | Organization | | | | + + + + + | ROBERTA WADSWORTH | [address] | [place] [address] | | | [facility] | [...] | | MEDICAL | | | | [facility] [address], | | CENTER | | | | [place] [address] | | LABORATORY | | | | [...] + + | SUSIEAKILAH WADSWORTH | [address] | [place] [address] | | | [facility] | [...] | | MEDICAL | | | | [facility] [address], | | CENTER | | | | [place] [address] | | LABORATORY | | | | [...] + + | [facility] | [address] | [place] [address] | | | [facility] | [...] | | | | to 3.5Performed by [facility] | | LABORATORY | | | | [address], [place], | | [place] | | | | [place] [address] | | | | + + + + + + + + | Specimen | + + | Blood specimen | | (specimen) | + + + + + + + | Performing | Address | City/State/[facility] | Phone Number | | Organization | | | | + + + + + | ROBERTA WADSWORTH | [address] | [place] [address] | | | HEART [facility] | | | | [...] | | | | | seconds.Performed by [facility] | | | | | | [address], | | | | | | [place] [address] | | | | + + + + + + + + | Specimen | + + | Blood specimen | | (specimen) | + + + + + + + | Performing | Address | City/State/Zipcode | Phone Number | | Organization | | | | + + + + + | ROBERTA WADSWORTH | [address] | [place] [address] | | | [facility] | [...] ENCE | | | Basophils | by [facility] [address], | K/uL | SACRED | | | | [place] [address] | | HEART | | | |Performed by [facility] [address], [place] [address] | | MEDICA L | | | [...] + + | SUSIEDEYSIKathrin WADSWORTH | [address] | [place] [address] | | | [facility] | [...] | | MEDICAL | | | | [facility] [address], | | CENTER | | | | [place] [address] | | LABORATORY | | | | [...] + + | ROBERTA WADSWORTH | [address] | [place] [address] | | | HEART [facility] | | | | [...] | | SACRED | | | | [place] [address] | | HEART | | | |Performed by [facility] [address], [place] | | MEDICAL | | | [...] + + | ROBERTA WADSWORTH | [address] | [place] | | | [facility] MEDICAL CENTER [...] | | | | to 3.5Performed by [facility] | | LABORATORY | | | | [address] [place], [place], | | [place] | | | | [place] [address] | | | | + + + + + + + + | Specimen | + + | Blood specimen | | (specimen) | + + + + + + + | Performing | Address | City/State/Zipcode | Phone Number | | Organization | | | | + + + + + | ROBERTA WADSWORTH | [address] [place] | [place] [address] | | | [facility] | [...] | | MEDICAL | | | | [facility] [address] | | [place] | | | | [place] [address] | | LABORATORY | | | | [...] + + | PROVIDEDEYSIE SACRCHRISTIAN | [address] | [place] [address] | | | [facility] | [...] | | MEDICAL | | | | [facility] [address] [place], | | CENTER | | | | [place] [address] | | LABORATORY | | | | [...] + + | ROBERTA WADSWORTH | [address] | [place] [address] | | | [facility] | | | | | LABORATORY KARENANER [...] PROVIDE NCE | | | | by [facility] [address], | | SACRED | | | | [place] [address] | | HEART | | | |Performed by [facility] [address], [place] [address] | | MEDICAL | | | | [...] + | ROBERTA WADSWORTH | [address] | [place] [address] | | | [facility] | | | | | LABORATORY KARENANER [...] | | MEDICAL | | | | [facility] [address], | | CENTER | | | | [place] [address] | | LABORATORY | | | | [...] + + | ROBERTA WADSWORTH | [address] | [place] [address] | | | [facility] | [...] [facility] | | | | Performed by [facility] [address] | | SACRED | | | | [address], [place] | | HEART | | | | [address] | | MEDICAL | | | | [...] SACRED | [address] | [place] [address] | | | [facility] | | | | | LABORATORY [...] | | MEDICAL | | | | [facility] [address], | | CENTER | | | | [place] [address] | | LABORATORY | | | | [...] + + | ROBERTA WADSWOR[facility] | [address] | [place] [address] | | | [facility] | | | | | STEPHEN CAVANAUGH | | | | + + + + + Tissue Request For Pathology (06/11/2018 2:57 PM PDT) + + | Specimen | + + | | + + + + + | Narrative | Performed At | + + + | | [facility] | | LILY VALENTIN | [place] | | : 1960 AGE: 58 years SEX: Male | MEDICAL CENTER | | | LABORATORY | | Acct: [id number] Location: | [facility] | | [facility] SURG; 552; 552-02 Case #: | | | [id number] Ordering: PATRICE CROSS MD | | | Client: [facility] | | | Copy To: Printed: [...] Date: 06/18/2018 12:37 pmPerforming Location: [facility] | | | [facility], [facility] [address] | | | DESCRIPTION:This case is received [...] | | | ureteral and renal vasculature margins.Operator Coating Furnace sections are | | | submitted as [...] pelvis and sinus | | | fat. Operator Coating Furnace sections are submitted during second look with [...] + | ROBERTA WADSWOR[facility] | [address] | [place] [address] | | | [facility] | [...] | is remote crossmatch | | LAB [facility] | | | | eligible | | [...] + + + | Specimen Expiration Date: [id number] | [facility] | | | [facility] | | | [facility] | | | [facility] | + + + + + + + + | Performing | Address | City/State/Zipcode | Phone Number | | Organization | | | | + + + + + | [facility] | [address] | [place] [address] | [phone] | | [facility] | | | | | [facility] [...] | | | | | | LAB [facility] | | | | | | [facility] | | | | | | [facility] | | | | | | BLOOD | | | | | | CENTER | | + + + + + + | Rh Type | Positive | | REFER[facility] | | | | | | [facility] | | | | | | [facility] | | | | | | [facility] | | | | | | BLOOD | | | | | | CENTER | | + + + + + + | Antibody | Negative | | REFER[facility] | | | Screen | | | LAB [facility] | | | | | | [facility] [...] + + + | Specimen Expiration Date: [id number] | [facility] | | | [facility] | | | [facility] | | | [facility] | + + + + + + + + | Performing | Address | City/State/Zipcode | Phone Number | | Organization | | | | + + + + + | [facility] | [address] | [place] [address] | [phone] | | [facility] | | | | | [facility] [...] | | | POC | Performed by [facility] [address] | | SACRED | | | | [address] [place] | | HEART | | | | [address] | | MEDICAL | | | | [...] + + | ROBERTA WADSWORTH | [address] | [place] [address] | | | [facility] | [...] + + +--------+---+---+ | morphine 5 mg/mL FIREWALL SECURITY ENGINEER syringe | Rate/Dos | 06/13/20 | 150 [...] | | | Loading Dose(mg): 0, Starting FIREWALL SECURITY ENGINEER | | | | | | | Dose(mg): 1, Incremental | | | | | | | Increase FIREWALL SECURITY ENGINEER Dose(mg): 0.5, | | | | | | | Maximum FIREWALL SECURITY ENGINEER Dose(mg): 2, Lockout | | | | [...] | | | | | dose on [facility] 06/12/18 at 0900, | | AM PST [...]
--- OUTSIDE RECORDS SUMMARY | ~2019-07-10 | XMS | Encounter Summary ---
Demographics + + + | Address | [address] | | | [place] [address] | + + + | Home Phone [...] [address] | | | | | [address] | | + + + + + Care Team Providers + +------+ + | Care Stamp Collector Name | Role | Phone | + [...] Rd | | | | | | [place], [place] | | | | | | [address] | | | | | | [phone] | | | | | | | | +--------+---------+ + + + documented as of this encounter Visit Diagnoses Not on filedocumented in this encounter"
--- OUTSIDE RECORDS SUMMARY | ~2019-07-10 | XMS | Clinical Summary ---
Demographics + + + | Address | [address] | | | [place] [address] | + + + | Home Phone | | + + + | Preferred Language | Unknown | + + + | Marital Status | Single | + + + | Mormon Affiliation | LDS | + + + | Race | White | + + + | Ethnic Group | Not or | + + + Author + + + | Author | [facility] | + + + | Organization | [facility] | + + + | Address | Unknown | + + + | Phone | Unavailable | + + + Support + + + + + | Name | Relationship | Address | Phone | + + + + + | Toby Latham | ECON | [address] # | | | | | [place] | | | | | [address] | | + + + + + Care Team Providers + +------+ + | Care Production Zone Leader Name | Role | Phone | + +------+ + | Sarah Carroll MD | PCP | | + +------+ + Source Comments [facility] is fully live on both [facility] Ambulatory and [facility] InPatient.[facility] Allergies No Known Allergies Medications [...] + + + + | 07/01/ | Personal Banker | Gastroenterology | Pedro, | Constipation, | | 2018 | | Diane Soto MD | unspecified | | | | | | constipation type | | | | | | (Primary Dx) | +--------+ + + + + | 07/01/ | Personal Banker | Gastroenterology | Reynaana, | Polyp of [...] 2018 | Event | | DO Geneva Mccall | | | | | | GEORGAINA Pinon | | +--------+ + + + [...] + + + + | 04/14/ | Personal Banker | Gastroenterology | Pedro, | Polyp of [...] | | 2019 | Visit | | [address] | | | | | | [address] | | | | | | [place], [place] | | | | | | [address] | | | | | | [phone] | | | | | | | [...] PathologistPathology, | | | | | | [facility] | | | | | | [facility] electronic | | | | | | [...] | CENTER FOR | | | | [facility]) and medical record | | HEALTH + | | | | number [id number]. | | HEALING | | | | [...] + + | [facility] DEPARTMENT OF | [address] | [place] [address] | | | PATHOLOGY | NIKKI PASTRANA | | | + + + + + | [facility] LABORATORY | [address] | [place] [address] | | | [facility] | | | | | HEALTH + HEALING | | | | + + + + + COLONOSCOPY (07/01/2019 10:08 AM PST) + + | Specimen | + + | | + + + + + | Narrative | Performed At | + + + | MRN: | [facility] | | [id number] Date: 07/01/2019Patient Name: Aaron Justin #: | ENDOSCOPY | | [id number] of : 1960SN: [id number] Type: | | | AmbulatoryRoom: Endo 5Procedure: | | | ColonoscopyIndications: Therapeutic procedure for known | | | colon polypPatient Profile: This is a 59 year old male. Refer to | | | note in patient chart for | | | documentation of history and physical.Providers: CHARLES | | | MD PEDRO (Doctor), CATARINA SOLIMAN RN | | | (Nurse), NGHIA YBARRA (Wastewater Treatment Plant Instructor)Referring MD: CHARLES | | | MASON VASQUEZequesting [...] the procedure. The Olympus | | | CF-[id number] Colonoscope #[id number] was introduced | | | through the [...] | | any questions, please contact the material handling crew supervisor. | | | - Clear liquid diet [...] + | Performing | Address | City/State/[facility] [place] | Phone Number | | Organization | [...] report as now presented. Final signature: Chris Chcias MD | | 05/27/2019 12:42 PM Preliminary: [...] 1.1 | 0.9 - 1.2 INR | [facility], | | | TIME | | [...] | [facility] [place], [facility]INT | [address] | [place] [address] | | | OF CARE TESTS | | | | + + + + + COLONOSCOPY (04/14/2019 11:50 AM PDT) + + | Specimen | + + | | + + + + + | Narrative | Performed At | + + + | MRN: | [facility] | | [id number] Date: 04/14/2019Patient Name: Aaron Justin #: | ENDOSCOPY | | [id number] of : 1960SN: [id number] Type: | | | AmbulatoryRoom: Endo 5Procedure: [...] DUTTA RN | | | (Nurse), GENEVA FLORES RN (Nurse), NGHIA YBARRA | | | (Wastewater Treatment Plant Instructor), [place] | | | (Wastewater Treatment Plant Instructor)Referring MD: JACK TINOCO JR, | | | [...] the procedure. The Olympus | | | CF-[id number] Colonoscope #[id number] was introduced | | | through the [...] questions, please contact the | | | material handling crew supervisor. - Stop | | | anticoagulation [...] | | | + +--------+ +--------+-------+---------+--------+ | ORANGE PICKER MACHINE OPERATOR MEDICAID | ORANGE PICKER MACHINE OPERATOR | xxxxxxxx | 08/18/19 | | [...] renetta | | | 1 (Home) | [address] | + +--------+ +--------+ + +
--- OUTSIDE RECORDS SUMMARY | ~2019-07-10 | XMS | Encounter Summary ---
Demographics + + + | Address | [address] | | | [place] [address] | + + + | Home Phone [...] Team Providers + +------+ + | Care Geology Scientist Name | Role | Phone | + +------+ + | Sarah Carroll MD | PCP | | + +------+ + Encounter Details +--------+---------+ + + + | Date | Type | Department | Care Team | Description | +--------+---------+ + + + | 06/15/ | Office | [facility] | Jewel Ulloa MD | Chronic kidney | | 2019 | Visit | NEPHROLOGY [place] | [address] [place] | disease, stage 3 | | | | [address] | [address] [place], [place] | (HCC) (Primary Dx); | | | | [address] | [address] | Anemia of chronic | | | | [place], [place] | | renal failure, stage | | | | [address] | | 3 (moderate) ([facility]); | | | | [phone] | | Persistent | | | | [...] | | | | 59.9 in adult ([facility]); | | | | | | [...] RFP, CBC, uric acid, iPTH, Urine total zebuqpz-eg-gcrkedhroo ratio before he comes back in 6 [...] 03/29/2016 Unknown Hyperlipidemia 03/29/[address] aCrroll: I saw your patient Mr. Latham in [...] RFP, CBC, uric acid, iPTH, Urine total bmaxgng-vm-lfveqjmuck ratio before he comes back in 6 [...] [address] | | | | | | [place] [address] | | | | | | [phone] | | | | | | | | +--------+---------+ + + + | 12/02/ | Office | Cardiology | Lorraine Clifton DO | | | 2019 | Visit | | [address] | | | | | | [place] | | | | | | [address] | | | | | | | | +--------+---------+ + + + | 12/13/ | Office | Nephrology | Jewel Ulloa MD | | | 2019 | Visit | | [address] [facility] [address] [place] | | | | | | [address] [place] | | | | | | [address] | | | | | | | [...]
--- OUTSIDE RECORDS SUMMARY | ~2019-07-10 | XMS | Encounter Summary ---
Demographics + + + | Address | [address] | | | [place] [address] | + + + | Home Phone [...] # | | | | | [place] | | | | | [address] | | + + + + + Care Team Providers + +------+ + | Care Production Consultant Name | Role | Phone | + +------+ + | Sarah Carroll MD | PCP | | + +------+ + Encounter Details +--------+ + + + + | Date | Type | Department | Care Team | Description | +--------+ + + + + | 07/01/ | Tie Tape Machine Operator | Digestive Health | Castresana, | Constipation, | | 2019 | | [place] at [facility] [address] | MD [address] | unspecified | | | | [address] | [address] | constipation type | | | | Mailcode: Center | [place], [place] | (Primary Dx) | | | | for Health and | [address] | | | | | [facility] 2 | [phone] | | | | | [place], [place] | | | | | | [address] | | | | | | [phone] | | | +--------+ + + + [...] Rd | | | | | | [place], [place] | | | | | | [address] | | | | | | [phone] | | | | | | | | +--------+---------+ + + + documented as of this encounter Visit Diagnoses + + | Diagnosis | + + | Constipation, unspecified constipation type - Primary | + + documented in this encounter"
--- OUTSIDE RECORDS SUMMARY | ~2019-07-10 | XMS | Encounter Summary ---
Demographics + + + | Address | [address] | | | [place] [address] | + + + | Home Phone [...] [place] | | | | | [address] | | + + + + + Care Team Providers + +------+ + | Care Ticket Sales Agent Name | Role | Phone | [...] 07/06/ | Telephone | [facility] | Of[place], | Follow-up Plan | | 2019 | | [facility] [address] | MD [address] | (colonscopy f/u) | | | | [address] Mailcode: | [address] | | | | | [address] for | [place], [place] | | | | | Health and Healing, | [address] | | | | | [facility] 2 | [phone] | | | | | [place], [place] | | | | | | [address] | | | | | | [phone] | | | +--------+ + + + [...] | | | | | | [place], [place] | | | | | | [address] | | | | | | [phone] | | | | | | | | +--------+---------+ + + + documented as of this encounter Visit Diagnoses Not on filedocumented in this encounter"
--- OUTSIDE RECORDS SUMMARY | ~2019-07-10 | XMS | Encounter Summary ---
Demographics + + + | Address | [address] | | | [place] [address] | + + + | Home Phone [...] Team Providers + +------+ + | Care Pt Escort Name | Role | Phone | + +------+ + | Sarah Carroll MD | PCP | | + +------+ + Encounter Details +--------+ + + + + | Date | Type | Department | Care Team | Description | +--------+ + + + + | 07/28/ | Orders Only | [facility] | Jewel Ulloa MD | | | 2018 | | NEPRHOLOGY [place] | [address] [place] | | | | | [address] | [address] [place], [place] | | | | | [address] [place], [place] | [address] | | | | | [address] | | | | | | [phone] | | | +--------+ + + + [...] | | | | | [place] [address] | | | | | | [phone] | | | | | | | | +--------+---------+ + + + | 12/02/ | Office | Cardiology | Lorraine Clifton DO | | | 2019 | Visit | | [address] | | | | | | [place] | | | | | | [address] | | | | | | | | +--------+---------+ + + + | 12/13/ | Office | Nephrology | Jewel Ulloa MD | | | 2019 | Visit | | [address] [facility] | | | | | | [address] [place], [place] | | | | | | [address] | | | | | | | [...]
--- OUTSIDE RECORDS SUMMARY | ~2019-07-10 | XMS | Encounter Summary ---
Demographics + + + | Address | [address] | | | [place] [address] | + + + | Home Phone | | + + + | Preferred Language | Unknown | + + + | Marital Status | Single | + + + | Worship Affiliation | LDS | + + + | Race | White | + + + | Ethnic Group | Not or | + + + Author + + + | Author | [facility] | + + + | Organization | [facility] | + + + | Address | Unknown | + + + | Phone | Unavailable | + + + Support + + + + + | Name | Relationship | Address | Phone | + + + + + | Toby Latham | ANNA | [address] | | | | | [place] | | | | | [address] | | + + + + + Care Team Providers + +------+ + | Care Hub Inventory Specialist Name | Role | Phone | + +------+ + | Sarah Carroll MD | PCP | | + +------+ + Encounter Details +--------+ + + + + | Date | Type | Department | Care Team | Description | +--------+ + + + + | 05/27/ | Hospital | Radiology/Imaging | Milton Mora, | | | 2018 | Encounter | Lab at [facility] [address] | [address] [address] | | | | | [address] [place] Mailcode: | [place], [place] | | | | | [address] | [address] | | | | | Health and Healing, | [phone] | | | | | Building [address], 3rd | | | | | | Floor [place], [place] | | | | | | [address] | | | | | | [phone] | | | +--------+ + + + [...] | | 2019 | Visit | | [address] | | | | | | [address] | | | | | | [place], [place] | | | | | | [address] | | | | | | [phone] | | | | | | | [...]
--- OUTSIDE RECORDS SUMMARY | ~2019-07-10 | XMS | Encounter Summary ---
Demographics + + + | Address | [address] | | | [place] [address] | + + + | Home Phone [...] Team Providers + +------+ + | Care Livestock Nutrition Territory Manager Name | Role | Phone | + +------+ + PCP | Unavailable | + +------+ + Encounter Details +--------+ + + + + | Date | Type | Department | Care Team | Description | +--------+ + + + + | 02/06/ | Hospital | [facility] | Conversion | Chronic combined | | 2017 | Encounter | [facility] | Transaction, | systolic and | | | | CLINICAL DECISION | Provider Unknown | diastolic congestive | | | | UN[address] [facility] | [phone] | heart failure | | | | [place], [place] | | ([facility]); Persistent | | | | [address] | Rocael Benedict, | atrial fibrillation | | | | [phone] | MD Key HUNTER | ([facility]); Essential | | | | | [address] [place] | hypertension with | | | | | [address] | goal blood pressure | | | [...] | | | | | ([facility]); Chronic | | | | | [...] 02/06/171900 Date of Service: 02/06/171855 Status: Signed Industrial Health And Safety Professor: Penelope Dale RN (Registered Nurse) Dr. Benedict 's phone Called and message left - Florencia notified Him That Aaron Latham Had 1 hour Left For iv Hydration and Left Moody. Devendra onver tara Transaction, Provider Unknown - 02/06/2017 6:56 PM PDT Progress Notes by Penelope Dale RN at 02/06/171855 Author: Penelope Dale RN Service: (none) Author Type: Registered Nurse Filed: 02/06/171903 Date of Service: 02/06/171855 Status: Signed Industrial Health And Safety Professor: Penelope Dale RN (Registered Nurse) Personal Belongings With pt. Pt Wheeled To car With pediatrician/medical doctor/car. Mother With Pt. Pt Awake and alert and No Distress. Devendra onver tara Transaction, Provider Unknown - 02/06/2017 6:54 PM PDT Progress Notes by Penelope Dale RN at 02/06/171853 Author: Penelope Dale RN Service: (none) Author Type: Registered Nurse Filed: 02/06/171901 Date of Service: 02/06/171853 Status: Addendum Industrial Health And Safety Professor: Penelope Dale RN (Registered Nurse) Related Notes: [...] home. Son Signed ama form rn Called Lever Operator per mother's Demand. Tr band Instructions Reviewed with pt And mother By Nurse Miko- Malka Casey trband Site Cleaned per Policy and Sterile Dressing Applied. Devendra onver tara Transaction, Provider Unknown - 02/06/2017 6:40 PM PDT Progress Notes by Penelope Dale RN at 02/06/171839 Author: Penelope Dale RN Service: (none) Author Type: Registered Nurse Filed: 02/06/171840 Date of Service: 02/06/171839 Status: Signed Industrial Health And Safety Professor: Penelope Dale RN (Registered Nurse) rn Diego Answered Dr. Benedict Phone/who is in middle of procedure/unable To talk Now. Devendra onver tara Transaction, Provider Unknown - 02/06/2017 6:35 PM PDT Progress Notes by Penelope Dale RN at 02/06/171834 Author: Penelope Dale RN Service: (none) Author Type: Registered Nurse Filed: 02/06/171836 Date of Service: 02/06/171834 Status: Signed Industrial Health And Safety Professor: Penelope Dale RN (Registered Nurse) Pt And Mother Demanding to Go home Now. Pt States Drank 2000 Cc And Peed 550 Urine. Have A Lever Operator Waiting Since 10 am. Plan of Care has Been Reviewed With pt And mother for Discharge At 8pm Repeated And they Had Agreed. No mention of Lever Operator Outside ever Mentioned. Devendra onver tara Transaction, Provider Unknown - 02/06/2017 4:19 PM PDT Progress Notes by Penelope Dale RN at 02/06/17 1619 Author: Penelope Dale RN Service: (none) Author Type: Registered Nurse Filed: 02/06/17 1705 Date of Service: 02/06/17 1619 Status: Addendum Industrial Health And Safety Professor: Penelope Dale RN (Registered Nurse) Related Notes: [...] Date of Service: 02/06/17 1139 Status: Signed Industrial Health And Safety Professor: Lary Stuart RN (Registered Nurse) Sodium Bicarbonate 4.2% 5ml given infiltrate right wrist onver tara Transaction, Provider Unknown - 02/06/2017 11:39 AM PDT Nurse Progress Note by Lary Stuart RN at 02/06/17 1139 Author: Lary Stuart RN Service: Cardiac, Thoracic, and Vascular Surgery Author Typ e: Registered Nurse Filed: 02/11/17 1030 Date of Service: 02/06/171138 Status: Addendum Industrial Health And Safety Professor: Lary Stuart RN (Registered Nurse) Related Notes: [...] F | | | | | | [place] [address] | | | | | | [phone] | | | | | | | | +--------+---------+ + + + | 12/02/ | Office | Cardiology | Lorraine Clifton DO | | | 2019 | Visit | | [address] | | | | | | [place] | | | | | | [address] | | | | | | | | +--------+---------+ + + + | 12/13/ | Office | Nephrology | Jewel Ulloa MD | | | 2019 | Visit | | [address] [place] | | | | | | [address] [place] | | | | | | [address] | | | | | | | [...] EXTERNAL | | | | performed at [facility], [address] | | LAB | | | | [address], | | | | | | [place] [address] | | | | + + + [...] | | performed at [facility] [place] | | | | | | [address] [facility];[place], [place] | | | | | | [address] | | | | + + + [...] | | | Basophils | performed at [facility] [place] [place];[address] | [address] | LAB | | | | [address];[place] | | | | | | [address] | | | | + + + [...] | | | Cholesterol | performed at [facility], [address] | | LAB | | | , | [address], | | | | | Calculated, | [place] [address] | | | | | External | [...] | | | | | | at [facility] [place] [place];[address] | | | | [address];[place] [address] | | | | + + + [...]
--- OUTSIDE RECORDS SUMMARY | ~2019-07-10 | XMS | Encounter Summary ---
Demographics + + + | Address | [address] | | | [place] [address] | + + + | Home Phone [...] Providers + +------+ + | Care Director For [employer] Name | Role | Phone | + +------+ + | Sarah Carroll MD | PCP | | + +------+ + Encounter Details +--------+ + + + + | Date | Type | Department | Care Team | Description | +--------+ + + + + | 01/19/ | Orders Only | [facility] | Jewel Ulloa MD | | | 2019 | | NEPHROLOGY [place] | [address] [place] | | | | | [address] [place] | [address] [place], [place] | | | | | [address] [place], [place] | [address] | | | | | [address] | | | | | | [phone] | | | +--------+ + + + [...] | | | | | [place] [address] | | | | | | [phone] | | | | | | | | +--------+---------+ + + + | 12/02/ | Office | Cardiology | Lorraine Clifton DO | | | 2019 | Visit | | [address] | | | | | | [place] | | | | | | [address] | | | | | | | | +--------+---------+ + + + | 12/13/ | Office | Nephrology | Jewel Ulloa MD | | | 2019 | Visit | | [address] [facility] | | | | | | [address] [place] | | | | | | [address] | | | | | | | [...] | | | LAB | | | [place] | | | | | + + [...]
--- OUTSIDE RECORDS SUMMARY | ~2019-07-10 | XMS | Encounter Summary ---
Demographics + + + | Address | [address] | | | [place] [address] | + + + | Home Phone [...] [place] | | | | | [address] | | + + + + + Care Team Providers + +------+ + | Care Operations Manager Assistant Name | Role | Phone [...] | Review | | | CKD | Mitlon Forman, | Richard Castellano, | | | | | (chronic | PA-C [address] | [address] | | | | | kidney | [address] | [address] | | | | | disease), | [address] | | | | | stage III | [place] | [place], [place] | | | | | (HCC) | [address] | [address] | | | | | Malignant | Phone: | Phone: | | | | | neoplasm of | [phone] | [phone] | | | | | colon, | Fax: | Fax: | | | | | unspecified | [phone] | [phone] | | | | | part of [...] | | | | | disease), | [facility], | | | | | | stage III | [place] | | | | | | (HCC) | [address] | | | | | | Malignant | Phone: | | | | | | neoplasm of | [phone] | | | | | | colon, | Fax: | | | | | | unspecified | [phone] | | | | | | part [...] | | | | | disease), | [place], | | | | | | stage III | [place] | | | | | | (HCC) | [address] | | | | | | Malignant | Phone: | | | | | | neoplasm of | [phone] | | | | | | colon, | Fax: | | | | | | unspecified | [phone] | | | | | | part [...] | | | | | disease), | [place], | | | | | | stage III | [place] | | | | | | (HCC) | [address] | | | | | | Malignant | Phone: | | | | | | neoplasm of | [phone] | | | | | | colon, | Fax: | | | | | | unspecified | [phone] | | | | | | part of | | | | | | | colon ([facility]) | | | | | | [...] | | | | Polyneuropat | [facility] | [address] | | | | | hy, | PHYSICIAN | [address] | | | | | unspecified | MED GROUP | [place], [place] | | | | | | [address] | [address] | | | | | Radiculopath | [address] | Phone: | | | | | y, lumbar | [place] | [phone] | | | | | region Pain | [place], [place] | Fax: | | | | | in left leg | [address] | [phone] | | | | | | Phone: | | | | | | Paresthesia | [phone] | | | | | | of skin | Fax: | | | | | | Anesthesia | [phone] | | | | | | of [...] bilateral | | 2019 | Visit | [facility] [address] | [place] [address] | (Primary Dx); CKD | | | | Ave Mailcode: | Ave [facility], [place] | (chronic kidney | | | | Center for [facility] | [address] | disease), stage III | | | | and Healing, | [phone] | ([facility]); Malignant | | | | [address] | | neoplasm of colon, | | | | [place], [place] | | unspecified part of | | | | [address] | | colon ([facility]); Ataxia; | | | | [phone] | | Lumbar | | | | [...] since 2016 is stable. weakness in right senior planning analyst improved mildly with CTR and ulnar surgery in 2018. Persistent left senior planning analyst weakness, difficulty with fine motor mov ements [...] questionna sarah that will be scanned into [employer]. Current medication list: Current Outpatient Medications Medication [...] pain medication by PCP -Will set up [facility] Spine Surgeon appointment, need MRIs complete prior to appointment and sharif lebron is aware of poor prognosis of chronic neurological deficits and that he is a poor surg ical candidate. I spent at least 45 minutes wety-bg-ydhy with the patient. I spent more than 50% of this vi sit in coordination of care and counseling in which we discussed diagnosis, treatment, imagi ng studies and follow-up. Milton Mora PA-C [facility] [address] [place] [address] [place] Mailcode: [place] [address] [facility] OPEN NOTE [[id number]] P DTdocumented in this encounter Plan of Treatment +--------+---------+ + + + | Date | Type | Specialty | Care Team | Description | +--------+---------+ + + + | 09/10/ | Office | Orthopedics | Richard Harvey, | | | 2019 | Visit | | [address] | | | | | | [address] | | | | | | [place], [place] | | | | | | [address] | | | | | | [phone] | | | | | | | [...]
--- OUTSIDE RECORDS SUMMARY | ~2019-07-10 | XMS | Encounter Summary ---
Demographics + + + | Address | [address] | | | [place] [address] | + + + | Home Phone [...] [place] | | | | | [address] | | + + + + + Care Team Providers + +------+ + | Care Natural Resources Technician Name | Role | Phone | [...] | | | | | | [place] | | | | | | | COLONOSCOPY, | | | | | | | FLEX, | | | | | | | W/BIOPSY [place] | | | | | | | | | | | | | | COLONOSCOPY, | | | | | | | YUNI URIBE BY | | | | | | | SNARE | | | | | | | TECHNIQUE | | | | | | | [place] | | | | | | [...] | | | | | | [place] ANES LWR | | | | | | | INTST NDSC | | | | | | | NOS | | | +--------+--------+ + + + + Encounter Details +--------+ + + + + | Date | Type | Department | Care Team | Description | +--------+ + + + + | 07/01/ | Anesthesia | [facility] | Adolfo Ace, | | | 2018 | Event | [facility] [address] | [address] | | | | | [place] Mailcode: | [address] | | | | | [facility] for | [place], [place] | | | | | Health and Healing, | [address] | | | | | [address] | [phone] | | | | | [place], [place] | | | | | | [address] | Radha Link CRNA | | | | | [phone] | [address] | | | | | | [address] | | | | | | [place], [place] | | | | | | [address] | | | | | | [phone] | | | | | | | [...] eral | Antecubital; 20 g; Positive | [place] Weber, RN | | | IV | [...] | | | | | | [place], [place] | | | | | | [address] | | | | | | [phone] | | | | | | | [...]
--- OUTSIDE RECORDS SUMMARY | ~2019-07-10 | XMS | Encounter Summary ---
Demographics + + + | Address | [address] | | | [place] [address] | + + + | Home Phone [...] Providers + +------+ + | Care Rn Cardiovascular Icu Name | Role | Phone | + [...] | | | | low back | [address] | [address] | | | | | pain with | [place], | [place], [place] | | | | | bilateral | [place] [address] | [address] | | | | | sciatica | Phone: | Phone: | | | | | Bilateral | [phone] | [phone] | | | | | foot-drop | Fax: | Fax: | | | | | Numbness of | [phone] | [phone] | | | | | both lower [...] | bilateral | [address] | | | | n | low back | [address] | [place], | | | | | pain with | [place], | [place] [address] | | | | | bilateral | [place] [address] | Phone: | | | | | sciatica | Phone: | [phone] | | | | | Bilateral | [phone] | Fax: | | | | | foot-drop | Fax: | [phone] | | | | | Numbness of | [phone] | | | | | | both lower | | | | | | | extremities | | | | | | | Procedures | | | | | | | ND MOTOR | | | | | | | &/SENS / | | | | | | | NRV CNDJ | | | | | | | PRECONF | | | | | | | ELTRODE LIMB | | | | | | | ND NEEDLE | | | | | | | EMG EA | | | | | | | EXTREMITY | | | | | | | W/PARASPINL | | | | | | | AREA LIMITED | | | | | | | ND MOTOR | | | | | | | &/SENS - | | | | | | | NRV CNDJ | | | | | | | PRECONF | | | | | | | ELTRODE LIMB | | | | | | | ND OFFICE | | | | | | [...] Rehabilitatio | | [address] | [address] | | | | n | | [address] | [place], | | | | | | [place], | [place] [address] | | | | | | [place] [address] | Phone: | | | | | | Phone: | [phone] | | | | | | [phone] | Fax: | | | | | | Fax: | [phone] | | | | | | [phone] | | +--------+--------+ + + + + Encounter Details +--------+---------+ + + + | Date | Type | Department | Care Team | Description | +--------+---------+ + + + | 12/15/ | Office | [facility] | Riccardo Malhotra, | Bilateral foot-drop | | 2019 | Visit | PHYSIATRY [address] | (Primary Dx); | | | | [place], | [place], [place] | Chronic bilateral | | | | [place] [address] | [address] | low back pain with | | | | [phone] | | bilateral sciatica; | | | [...] encounter Patient Instructions Patient Instructions Bianca Hernandez, Utility Bill Complaints Investigator - 12/15/2018 1:00 PM PDTX-rays have been [...] chronic renal failure, stage 3 (moderate) ([facility]) 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 [...] Location: [facility] MAIN OR COLONOSCOPY 05/22/2017 FINGER SURGERY Right 1974 AMPUTATION 5th finger TONSILLECTOMY 1969 TOTAL NEPHRECTOMY Left 06/11/2018 Procedure: LEFT LAPAROSCOPIC NEPHRECTOMY WITH NODE DISSECTION AND LAPAROSCOPIC LYSIS OF AD HESIONS; Surgeon: Patrice Cross MD; Location: [facility] MAIN OR Unlisted Procedure Arthroscopy Family History: [...] [place] | | | | | | [place] [address] | | | | | | [phone] | | | | | | | | +--------+---------+ + + + | 12/02/ | Office | Cardiology | Lorraine Clifton DO | | | 2019 | Visit | | [address] | | | | | | [place] | | | | | | [address] | | | | | | | | +--------+---------+ + + + | 12/13/ | Office | Nephrology | Jewel Ulloa MD | | | 2019 | Visit | | [address] | | | | | | [address] [place] | | | | | | [address] | | | | | | | [...]
--- OUTSIDE RECORDS SUMMARY | ~2019-07-10 | XMS | Encounter Summary ---
Demographics + + + | Address | [address] | | | [place] [address] | + + + | Home Phone [...] Team Providers + +------+ + | Care Weigher And Mixer Name | Role | Phone | + +------+ + | Sarah Carroll MD | PCP | | + +------+ + Encounter Details +--------+ + + + + | Date | Type | Department | Care Team | Description | +--------+ + + + + | 10/16/ | Orders Only | [facility] | Conversion | | | 2019 | | NEPHROLOGY [place] | Transaction, | | | | | [address] | Provider Unknown | | | | | [address] [place], [place] | [phone] | | | | | [phone] | (Fax) | | | | | [phone] | | | +--------+ + + + [...] [place] | | | | | | [place] [address] | | | | | | [phone] | | | | | | | | +--------+---------+ + + + | 12/02/ | Office | Cardiology | Lorraine Clifton DO | | | 2019 | Visit | | [address] | | | | | | [place] | | | | | | [address] | | | | | | | | +--------+---------+ + + + | 12/13/ | Office | Nephrology | Jewel Ulloa MD | | | 2019 | Visit | | [address] [facility] | | | | | | [facility] | | | | | | [address] | | | | | | | [...]
--- OUTSIDE RECORDS SUMMARY | ~2019-07-10 | XMS | Encounter Summary ---
Demographics + + + | Address | [address] | | | [place] [address] | + + + | Home Phone [...] Team Providers + +------+ + | Care Mother Repairer Name | Role | Phone | + +------+ + PCP | Unavailable | + +------+ + Encounter Details +--------+ + + + + | Date | Type | Department | Care Team | Description | +--------+ + + + + | 06/05/ | Hospital | [facility] | Conversion | Diagnosis unknown | | 2016 | Encounter | CONVERSION [address] | Transaction, | | | | | [address] | Provider Unknown | | | | | [place] | | | | | | [address] | | | | | | [phone] | | | +--------+ + + + [...] | | | | | [place] [address] | | | | | | [phone] | | | | | | | | +--------+---------+ + + + | 12/02/ | Office | Cardiology | Lorraine Clifton DO | | | 2019 | Visit | | [address] | | | | | | [place] | | | | | | [address] | | | | | | | | +--------+---------+ + + + | 12/13/ | Office | Nephrology | Jewel Ulloa MD | | | 2019 | Visit | | [address] [place] | | | | | | [address] [place] | | | | | | [address] | | | | | | | [...]
[~2019-07-10 03:43] MED LIST changes: +8 HOUR650 MG PO; +ALLOPURINOL300 MG PO; +COLCHICINE0.6 M1 PO; +LEVOTHYROXINE50 MCG PO; +OXYCODONE HCL5 MG PO
--- OUTSIDE RECORDS SUMMARY | 2019-07-10 03:46 | XMS ---
PreManage Notification: LILY VALENTIN Security Hide House Supervisor Events No recent Security Events currently on file CRITERIA MET - - Has Care Guidelines CARE PROVIDERS [facility]ATT [facility] Internal Medicine 08/25/2018-Current [facility] A/S PHONE: [phone] Shauna has no Care Guidelines for this patient. Care History Medical/Surgical 08/25/2018 [facility] - Patient is currently established with [facility]. If patient is seen in the ED during business hours. Please contact CHWs at [facility]. Care Recommendation: This patient has had 5 or more Emergency Department visits in the last 12 months.\T\nbsp; Patient requires education on the scope and purpose of the ED as an acute care provider not a Primary Care Provider and should not be utilized for chronic conditions.\T\nbsp;These are guidelines and the provider should exercise clinical judgment when providing care E.D. VISIT COUNT (12 MO.) 4 [facility] TOTAL 4 NOTE: Visits indicate total known visits. ED/UCC VISIT TRACKING (12 MO.) 07/10/2019 03:44 [facility] [place] TYPE: Emergency COMPLAINT: - POST OP PROBLEM 12/11/2018 02:41 [facility] [place] TYPE: Emergency COMPLAINT: - FLANK PAIN DIAGNOSES: - detention (current) use of anticoagulants - Other moth exterminator (current) drug therapy - Exposure to other specified factors, initial encounter - Strain of muscle, fascia and tendon of lower back, init - Personal history of nicotine dependence - Anemia, unspecified - Unspecified abdominal pain - detention (current) use of systemic steroids - Hypothyroidism, unspecified - Obesity, unspecified - Heart failure, unspecified - Hypertensive heart disease with heart failure 08/24/2018 05:57 [facility] [place] TYPE: Emergency COMPLAINT: - L ELBOW PAIN/NON INJURY DIAGNOSES: - Anemia, unspecified - Personal history of nicotine dependence - moth exterminator (current) use of anticoagulants - Sleep apnea, unspecified - Hypertensive heart disease with heart failure - Obesity, unspecified - Other bursitis of elbow, left elbow - Hypothyroidism, unspecified - Pain in left elbow - Heart failure, unspecified - Other moth exterminator (current) drug therapy 08/15/2018 19:12 [facility] [place] TYPE: Emergency COMPLAINT: - LEFT KNEE PAIN/SWELLING NON INJURY DIAGNOSES: - Pain in left knee - Anemia, unspecified - Hypertensive heart disease with heart failure - Heart failure, unspecified - Hypothyroidism, unspecified - detention (current) use of anticoagulants - Other moth exterminator (current) drug therapy - Unilateral primary osteoarthritis, left knee - Obesity, unspecified - Sleep apnea, unspecified INPATIENT VISIT TRACKING (12 MO.) No inpatient visits to display in this time frame [email or web address]
== END 2019-07-10 09:34 | disposition short-term general hospital (02) ==
LOC: ED 03:43
DX: K92.2 Gastrointestinal hemorrhage, unspecified (principal); I11.0 Hypertensive heart disease with heart failure; I50.9 Heart failure, unspecified; E66.9 Obesity, unspecified; G47.30 Sleep apnea, unspecified; E03.9 Hypothyroidism, unspecified; D64.9 Anemia, unspecified; Z87.891 Personal history of nicotine dependence; Z79.899 Other long term (current) drug therapy; Z79.01 Long term (current) use of anticoagulants; Z79.52 Long term (current) use of systemic steroids
CPT/HCPCS: 36430; 80053; 83690; 85025; 85610; 85730; 86850; 86900; 86901; 86920; 86927; 96365; 96375; 99285-25; J1200; J3430; J7030; J7060; J7121; P9016

== ENCOUNTER 2019-10-30 10:31 | Emergency (ER) | payer OTHER ==
[~2019-10-30] VITALS: Ht 180.3 cm; Wt 168.9 kg
--- OUTSIDE RECORDS SUMMARY | 2019-10-30 10:34 | XMS ---
PreManage Notification: LILY VALENTIN Security Systems Software Specialist Events No recent Security Events currently on file CRITERIA MET - [facility] - Has Care Guidelines CARE PROVIDERS KENDALL GUTIERREZ Internal Medicine 08/25/2018-Current PHONE: [phone] Shauna has no Care Guidelines for this patient. Care History Medical/Surgical 07/13/2019 [facility] Patient had canceled 07/16/[address] Gutierrez.\T\nbsp; Patient is waiting to hear reschedule date post [facility] visit. 08/25/2018 [facility] - Patient is currently established with [facility]. If patient is seen in the ED during business hours. Please contact CHWs at [facility]. Care Recommendation: This patient has had 5 or more Emergency Department visits in the last 12 months.\T\nbsp; Patient requires education on the scope and purpose of the ED as an acute care provider not a Primary Care Provider and should not be utilized for chronic conditions.\T\nbsp;These are guidelines and the provider should exercise clinical judgment when providing care E.D. VISIT COUNT (12 MO.) [address] [facility] [address] [facility] TOTAL 3 NOTE: Visits indicate total known visits. ED/UCC VISIT TRACKING (12 MO.) 10/30/2019 10:31 [facility] [place] TYPE: Emergency COMPLAINT: - WOUND CHECK 07/10/2019 03:44 [facility] [place] TYPE: Emergency COMPLAINT: - BLOOD IN STOOL DIAGNOSES: - Obesity, unspecified - Gastrointestinal hemorrhage, unspecified - Anemia, unspecified - Hypertensive heart disease with heart failure - Sleep apnea, unspecified - Heart failure, unspecified - Personal history of nicotine dependence - landscape architect and planner (current) use of systemic steroids - Other junior estimator (current) drug therapy - Hypothyroidism, unspecified - landscape architect and planner (current) use of anticoagulants 12/11/2018 02:41 [facility] TYPE: Emergency COMPLAINT: - FLANK PAIN DIAGNOSES: - landscape architect and planner (current) use of anticoagulants - Other penitentiary (current) drug therapy - Exposure to other specified factors, initial encounter - Strain of muscle, fascia and tendon of lower back, initial en - Personal history of nicotine dependence - Anemia, unspecified - Unspecified abdominal pain - USP (current) use of systemic steroids - Hypothyroidism, unspecified - Obesity, unspecified - Heart failure, unspecified - Hypertensive heart disease with heart failure INPATIENT VISIT TRACKING (12 MO.) 07/10/2019 11:05 [facility] TYPE: Internal Medicine DIAGNOSES: 00995. rectal bleed, post colonoscopy, polyp removal, 9 days ago [address]31. Gastrointestinal hemorrhage, unspecified [email or web address]
== END 2019-10-30 11:15 | disposition home or self-care (01) ==
LOC: ED 10:31
DX: L76.21 Postprocedural hemorrhage of skin and subcutaneous tissue following a dermatologic procedure (principal)

== ENCOUNTER 2019-12-19 07:56 | Emergency (ER) | payer OTHER ==
[~2019-12-19] VITALS: Ht 180.3 cm; Wt 167.1 kg
--- OUTSIDE RECORDS SUMMARY | ~2019-12-19 | XMS | Encounter Summary ---
Demographics + + + | Address | [address] [address] | | | [place] [address] | + + + | Home Phone | | + + + | Preferred Language | Unknown | + + + | Marital Status | Single | + + + | Jehovah'S Witness Affiliation | 1077 | + + + | Race | Unknown | + + + | Ethnic Group | Unknown | + + + Author + + + | Author | [facility] | | | and [place] | + + + | Organization | [facility] | | | and [place] | + + + | Address | Unknown | + + + | Phone | Unavailable | + + + Support + + +---------+ + | Name | Relationship | Address | Phone | + + +---------+ + | Toby Latham | ECON | Unknown | | + + +---------+ + Care Team Providers + +------+ + | Care Reimbursement Analyst Name | Role | Phone | + +------+ + | Sarah Carroll MD | PCP | | + +------+ + Reason for Visit Auth/Cert +--------+--------+ + + + + | Status | Reason | Specialty | Diagnoses / | Referred By | Referred To | | | | | Procedures | Contact | Contact | +--------+--------+ + + + + | | | | Diagnoses | | Mehul Kinsey | | | | | Malignant | | MD Chuck | | | | | neoplasm of | | [address] | | | | | sigmoid | | [address]VE | | | | | colon (HCC) | | [place] | | | | | Malignant | | Phone: | | | | | neoplasm of | | [phone] | | | | | sigmoid | | Fax: | | | | | colon (HCC) | | [phone] | | | | | [C18.7] | | | | | | | Procedures | | | | | | | GA PART | | | | | | | REMOVAL | | | | | | | COLON W | | | | | | | COLOPROCTOST | | | | | | | ZHOU | | | +--------+--------+ + + + + Encounter Details +--------+---------+ + + + | Date | Type | Department | Care Team | Description | +--------+---------+ + + + | 08/16/ | Surgery | [facility] | Mehul Kinsey, | RESECTION BOWEL LOW | | 2018 | | [facility] | [address] | ANTERIOR, FLEXIBLE | | | | OP [address] | [address] [place] | SIGMOIDOSCOPY | | | | [place] | [phone] | | | | | [address] | | | | | | [phone] | | | +--------+---------+ + + + Social History + +-------+ +--------+------+ | Tobacco Use | Types | Packs/Day | Years | Date | | | | | Used | | + +-------+ +--------+------+ | Never Smoker | | | | | + +-------+ +--------+------+ + +---+---+---+ | Smokeless Tobacco: | | | | | Never Used | | | | + +---+---+---+ + + +---------+ + | Alcohol Use | Drinks/Week | oz/Week | Comments | + + +---------+ + | No | | | | + + +---------+ + + + + | Sex Assigned at | Date Recorded | | | | + + + | Not on file | | + + + + + + + | Job Start Date | Occupation | Industry | + + + + | Not on file | Not on file | Not on file | + + + + + + + + | Travel History | Travel Start | Travel End | + + + + + + | No recent travel history available. | + + documented as of this encounter Last Filed Vital Signs + + + + + | Vital Sign | Reading | Time Taken | Comments | + + + + + | Blood Pressure | 124/86 | 08/23/2017 8:33 AM | | | | | PST | | + + + + + | Pulse | 62 | 08/23/2017 8:33 AM | | | | | PST | | + + + + + | Temperature | 36.6 C (97.8 F) | 08/23/2017 7:59 AM | | | | | PST | | + + + + + | Respiratory Rate | 18 | 08/23/2017 7:59 AM | | | | | PST | | + + + + + | Oxygen Saturation | 92% | 08/23/2017 7:59 AM | | | | | PST | | + + + + + | Inhaled Oxygen | - | - | | | Concentration | | | | + + + + + | Weight | 156.9 kg (345 lb | 08/23/2017 12:30 AM | | | | 14.4 oz) | PST | | + + + + + | Height | 180.3 cm (5' 11") | 08/16/2017 8:46 AM | | | | | PST | | + + + + + | Body Mass Index | 48.24 | 08/16/2017 8:46 AM | | | | | PST | | + + + + + documented in this encounter Functional Status + + + + | Functional Status | Response | Date of Assessment | + + + + | Are you deaf or do you have serious | No | 08/23/2017 | | difficulty hearing? | | | + + + + | Are you blind or do you have serious | No | 08/23/2017 | | difficulty seeing, even when wearing | | | | glasses? | | | + + + + | Do you have serious difficulty walking or | No | 08/23/2017 | | climbing stairs? (5 years old or older) | | | + + + + | Do you have difficulty dressing or bathing? | No | 08/23/2017 | | (5 years old or older) | | | + + + + | Because of a physical, mental, or emotional | No | 08/23/2017 | | condition, do you have difficulty doing | | | | errands alone such as visiting a doctor's | | | | office or shopping? [15 years old or | | | | older)] | | | + + + + + + + + | Cognitive Status | Response | Date of Assessment | + + + + | Because of a physical, mental, or emotional | No | 08/23/2017 | | condition, do you have serious difficulty | | | | concentrating, remembering, or making | | | | decisions? (5 years old or older) | | | + + + + documented as of this encounter Discharge Summaries Mehul Kinsey MD - 08/22/2017 6:48 AM PSTFormatting of this note might be different fr om the original. DISCHARGE SUMMARY Pt. Name/Age/: Aaron Latham 57 y.o. 1960 Date of Admission: 08/16/2017 Date of Discharge: 08/23/2017 Admitting Physician: Mehul Kinsey MD PCP: Sarah Carroll Discharging Physician: Oumou Kinsey Consultants: Primary Discharge Dx: Colon cancer There is no problem list on file for this patient. Secondary Discharge Dx: Morbid obesity Pertinent Diagnostic Info/Data: As above Procedures: Low anterior resection Reason for Admission (Brief): As above Hospital Course, including Complications: Patient was admitted the hospital taken the oper ating same day. He underwent a low anterior resection via the open approach. He is admitte d to floor postoperatively. He had a largely complicate her postoperative course except for a small bowel ileus requiring nasogastric decompression. Bowel function recovered. Diet w as advanced. He was converted oral medication. He was discharged in good condition on 08/23 Medications Reconciled upon Discharge are: Discharge Medications New Medications Details bisacodyl [address] 1 suppository rectally Twice daily as needed for Constipation. aka: DULCOLAX HYDROcodone-acetaminophen 10-325 mg per tablet Take 1-2 tablets by mouth every 4 hours as needed for Pain. aka: NORCO Unchanged Medications Details atorvaSTATin 80 MG tablet Take 80 mg by mouth nightly. aka: LIPITOR carvedilol 6.25 mg tablet Take 6.25 mg by mouth 2 times daily (with breakfast & dinner). aka: COREG Cholecalciferol 2000 units Caps Take 2,000 Units by mouth Daily. aka: VITAMIN D-3 cyanocobalamin 1000 MCG tablet Take 1,000 mcg by mouth Daily. aka: VITAMIN B-12 ferrous sulfate 325 mg tablet Take 325 mg by mouth daily (with breakfast). hydrALAZINE 50 MG tablet Take 50 mg by mouth 3 times daily. aka: APRESOLINE isosorbide mononitrate 60 mg ER tablet Take 60 mg by mouth Daily. aka: IMDUR magnesium oxide 400 mg tablet Take 400 mg by mouth Daily. aka: MAG-OX non-formulary medication Apply topically 2 times daily. FLUCONAZOLE DMSO 5% APPLY TO TOES spironolactone 50 mg tablet Take 50 mg by mouth Daily. aka: ALDACTONE torsemide 20 mg tablet Take 20 mg by mouth Daily. aka: DEMADEX There is no immunization history on file for this patient. Reason for major medication changes in hospital: None Condition on Discharge: Stable Vital Signs: Temp: 36.9 C (98.5 F) BP: 106/57 Pulse: 67 Resp: 16 SpO2: 92 % Min/Max Temp past 24 hours:Temp Av.7 C (98.1 F) Min: 36.1 C (96.9 F) Max: 3 7.1 C (98.7 F) Intake/Output Summary (Last 24 hours) at 08/22/17 0648 Last data filed at 08/21/17 1814 Gross per 24 hour Intake 629 ml Output 0 ml Net 629 ml Last Wt. Before discharge: Weight: (!) 156.9 kg (345 lb 14.4 oz) Pending study results on DC: None Disposition: Home Follow-Up Plans: Follow-up with: Johanny in 1 week Diet: As tolerated Activity: As tolerated Discharge Procedure Orders Referral to Home Health - OUTPATIENT Referral Priority: Routine Referral Type: Evaluate & Treat Referral Reason: Specialty Services Required Requested Specialty: Home Health Services Number of Visits Requested: 1 Code Status/Advance Directive (Pertinent discussions/declarations): Full Code Time spent on Discharge and Coordination of post-hospital care: 15 minutes Electronically signed by: Oumou Kinsey, 08/22/2017 6:48 [facility] documented in this encounter Discharge Instructions Instructions Gretel Peña RN - 08/23/2017 [facility] Patient Belongings Aaron Latham 1960 Valuables Dentures: None Vision - Corrective Lenses: None Hearing Aid: None Jewelry: None Clothing: Pants, Shirt, Footwear ( Duffel/CPAP/CANE/Hospital provided bag with clothing sen t to PACU pt. storage bins) Other Valuables: CPAP/BiPAP, Secured on Unit Other Valuables: None Home Medications: None Patient Signature: Clinician/Lead Performance Support Analyst Signature: Incision Care: Abdomen Dressing your incision helps keep it clean, dry, and infection-free. That way it will heal faster. Follow the steps below. 1. Wash your hands and set up Use liquid soap. Lather for 1 to 2 minutes. Scrub between your fingers and under your na ils. Rinse with warm water, keeping fingers pointing down. Use a clean paper towel to dry you r hands and turn off the faucet. Put all your supplies on a clean cloth or paper towel. Open a plastic trash bag. Peel back the edges of the dressing packages. Pour any irrigation solutions into solutio n cups. Clean the scissors with soap and water. Cut each piece of tape 4 inches longer than the dressing. 2. Remove the old dressing Put on disposable gloves. Loosen the tape by pulling gently toward the incision. Remove the dressing one layer at a time. Put it right into the plastic bag. Remove your gloves and put them in the plastic bag. Wash your hands again, as described above. Then put on new gloves. 3. Clean and dress the incision Clean the incision and apply a new dressing as directed. Put all used supplies in the plastic bag. Remove your gloves last and put them in the bag. Seal the bag and put it in the trash. Be sure to wash your hands again. When to seek medical care Call your healthcare provider if any of these happen: Your incision suddenly opens You have bleeding from the incision, or an increase in its size Increased redness, swelling, or drainage Pain in or around the incision Change in the color of the incision Fever of100.4F(38C) or higher, or as directed by your healthcare provider Date Last Reviewed: 07/12/201619998337-8320 [employer]. [address] [place] [address]. All righ ts reserved. This information is not intended as a substitute for professional medical care. Always follow your healthcare professional's instructions. Bowel Resection WHAT YOU NEED TO KNOW: Bowel resection is surgery to remove all or parts of the small or large intestine (bowel). This is done to treat conditions such as intestinal bleeding, blockages, inflammation, or in fections. It may also be done to remove large polyps (growths) or early signs of tumors in t he intestines. In a bowel resection, your healthcare provider makes an incision in the abdom en. The amount of intestine removed depends on the reason why this surgery is needed. An ile ostomy or colostomy, which is an opening in the abdomen to drain bowel movement into a bag, may also be made. DISCHARGE INSTRUCTIONS: Medicines: Stool softeners: This medicine makes it easier for you to have a bowel movement. You may ne ed this medicine to treat or prevent constipation. Pain medicine: You may need medicine to take away or decrease pain. Learn how to take your medicine. Ask what medicine and how much you should take. Be sure yo u know how, when, and how often to take it. Do not wait until the pain is severe before you take your medicine. Tell caregivers if your pain does not decrease. Pain medicine can make you dizzy or sleepy. Prevent falls by calling someone when you get o ut of bed or if you need help. Antibiotics: This medicine is given to fight or prevent an infection caused by bacteria. Al ways take your antibiotics exactly as ordered by your healthcare provider. Do not stop takin g your medicine unless directed by your healthcare provider. Never save antibiotics or take leftover antibiotics that were given to you for another illness. Take your medicine as directed. Call your healthcare provider if you think your medicine is not helping or if you have side effects. Tell him if you are allergic to any medicine. Keep a list of the medicines, vitamins, and herbs you take. Include the amounts, and when and wh y you take them. Bring the list or the pill bottles to follow-up visits. Carry your medicine list with you in case of an emergency. Follow up with your healthcare provider as directed: Write down your questions so you remem yusra to ask them during your visits. Self-care: Keep your wound clean and dry: When you are allowed to bathe or shower, carefully wash the incision with soap and water. Afterwards, put on clean, new bandages. Change your bandages a ny time they get wet or dirty. Ask for more information about wound care. Prevent constipation: High-fiber foods, extra liquids, and regular exercise can help you pr event constipation. Examples of high-fiber foods are fruit and bran. Prune juice and water a re good liquids to drink. Regular exercise helps your digestive system work. Eat healthy foods: Choose healthy foods from all the food groups every day. Include whole-g rains, fruits, vegetables, dairy, and lean meat. Ask if you need to be on a special diet. Drink liquids: Adults should drink about 9 to 13 cups of liquid each day. One cup is 8 ounc es. Good liquids for most people include water, juice, and milk. Ask your healthcare provide r how much liquid you should drink each day. Get plenty of rest: Rest when you need to while you heal after surgery. Slowly start to do more each day. Return to your daily activities as directed. Contact your healthcare provider if: You have a feeling of being too full or bloated. You have a fever. You have chills, a cough, or feel weak and achy. You have nausea or vomiting. You are unable to have a bowel movement. You have questions or concerns about your condition or care. Seek care immediately or call 911 if: You feel very full and you cannot burp or vomit. You have problems having a bowel movement or passing gas or urine. You have pus or a foul-smelling odor coming from your incision. Your abdomen becomes tender and hard. Your bowel movements are black or have blood in them. Your vomit is green, looks like coffee grounds, or has blood in it. Your arm or leg feels warm, tender, and painful. It may look swollen and red. You suddenly feel lightheaded and have shortness of breath. You have chest pain. You may have more pain when you take a deep breath or cough. You may c ough up blood. 2015 [employer] All illustrations and images included in CareNotes a re the copyrighted property of [employer] or [employer]. documented in this encounter Medications at Time of Discharge + + + +---------+ + + | Medication | Sig | Dispensed | Refills | Start | End Date | | | | | | Date | | + + + +---------+ + + | atorvaSTATin | Take 80 mg by mouth | | 0 | | | | (LIPITOR) 80 MG | nightly. | | | | | | tablet | | | | | | + + + +---------+ + + | carvedilol (COREG) | Take 6.25 mg by | | 0 | | | | 6.25 mg tablet | mouth 2 times daily | | | | | | | (with breakfast & | | | | | | | dinner). | | | | | + + + +---------+ + + | Cholecalciferol | Take 2,000 Units by | | 0 | | | | (VITAMIN D-3) 2000 | mouth Daily. | | | | | | units CAPS | | | | | | + + + +---------+ + + | cyanocobalamin | Take 1,000 mcg by | | 0 | | | | (VITAMIN B-12) 1000 | mouth Daily. | | | | | | MCG tablet | | | | | | + + + +---------+ + + | ferrous sulfate | Take 325 mg by mouth | | 0 | | | | 325 mg tablet | 3 times daily (with | | | | | | | meals). | | | | | + + + +---------+ + + | hydrALAZINE | Take 50 mg by mouth | | 0 | | | | (APRESOLINE) 50 MG | 3 times daily. | | | | | | tablet | | | | | | + + + +---------+ + + | bisacodyl | Place 1 suppository | 10 | 0 | 08/22/19 | | | (DULCOLAX) 10 mg | rectally Twice | supposito | | 18 | 8 | | suppository | daily as needed for | ry | | | | | | Constipation. | | | | | + + + +---------+ + + | | Take 1-2 tablets by | 40 | 0 | 08/22/19 | | | HYDROcodone-acetamin | mouth every 4 hours | tablet | | 18 | 8 | | ophen (NORCO) 10-325 | as needed for Pain. | | | | | | mg per tablet | | | | | | + + + +---------+ + + | isosorbide | Take 60 mg by mouth | | 0 | | | | mononitrate (IMDUR) | Daily. | | | | 9 | | 60 mg ER tablet | | | | | | + + + +---------+ + + | magnesium oxide | Take 400 mg by mouth | | 0 | | | | (MAG-OX) 400 mg | Daily. | | | | 9 | | tablet | | | | | | + + + +---------+ + + | non-formulary | Apply topically 2 | | 0 | | | | medication | times daily. | | | | 9 | | | FLUCONAZOLE DMSO 5% | | | | | | | APPLY TO TOES | | | | | + + + +---------+ + + | spironolactone | Take 100 mg by mouth | | 0 | | | | (ALDACTONE) 50 mg | Daily. | | | | 9 | | tablet | | | | | | + + + +---------+ + + | torsemide | Take 20 mg by mouth | | 0 | | | | (DEMADEX) 20 mg | Daily. | | | | 9 | | tablet | | | | | | + + + +---------+ + + documented as of this encounter Progress Notes Mehul Kinsey MD - 08/23/2017 7:02 AM PSTFormatting of this note might be different fr om the original. Colorectal Surgery Progress Note Date of Admission: 08/16/2017 Hospital Day #: LOS: 7 days Procedure: Procedure(s): RESECTION BOWEL LOW ANTERIOR, FLEXIBLE SIGMOIDOSCOPY Procedure date: 08/16/2017 Subjective/Interval Hx: Had to stay overnight due to right issues otherwise doing well Assessment POD # LAR Recommendations: 1. Home today The remaining data was used to formulate the aforementioned plan. Active Problems: Active Problems: * No active hospital problems. * Current Medications: Scheduled Meds: atorvaSTATin 80 mg Oral Nightly carvedilol 6.25 mg Oral BID WC famotidine 20 mg Oral BID heparin 5,000 Units Subcutaneous 2 times per day hydrALAZINE 50 mg Oral TID isosorbide mononitrate 60 mg Oral Daily magnesium oxide 400 mg Oral Daily metoclopramide 10 mg Oral 4x Daily AC and HS spironolactone 50 mg Oral Daily tamsulosin 0.4 mg Oral Daily after breakfast torsemide 20 mg Oral Daily Continuous Infusions: PRN Meds:.acetaminophen, aluminum & magnesium hydroxide-simethicone, bisacodyl, calcium car bonate, diphenhydrAMINE OR diphenhydrAMINE OR diphenhydrAMINE, HYDROcodone-acetamino phen, HYDROcodone-acetaminophen, menthol throat lozenges, methocarbamol, naloxone, ondansetr on, ondansetron, oxyCODONE, oxyCODONE-acetaminophen No Known Allergies Vital Signs: Vitals: 08/22/17 1548 08/22/17 2008 08/22/17 2359 08/23/17 0030 BP: 105/63 131/64 124/67 Pulse: 83 62 69 Resp: 17 20 Temp: 37.1 C (98.7 F) 36.7 C (98.1 F) 36.8 C (98.3 F) TempSrc: Temporal Temporal Temporal SpO2: 94% 93% Weight: (!) 156.9 kg (345 lb 14.4 oz) Height: I's&O's: Date 08/22/17 07 - 08/23/17 0700 08/23/17 07 - 08/24/17 0700 Shift 9492-3739 0641-8549 24 Hour Total 1663-3848 4347-2668 24 Hour Total I N T A K E P.O. 1200 1200 P.O. 480 480 Water PO (mL) 720 720 Shift Total (mL/kg) 1200 (7.6) 1200 (7.6) O U T P U T Shift Total (mL/kg) NET 1200 1200 Weight (kg) 156.9 156.9 156.9 156.9 156.9 156.9 Physical Exam: General: No apparent distress. Abdomen: Soft, non-distended, non-tender. Incision clean/dry/intact. Bowel sounds hypoact ascencion. Labs data: Recent Labs Lab 08/18/17 0825 08/17/17 0358 08/16/17 0930 WBC 14.9* -- 7.9 HGB 11.9* 12.3* 12.5* HCT 35.1* 36.0* 37.6* PLT 324 -- 283 Recent Labs Lab 08/17/17 0358 08/16/17 0930 NA 135 137 K 4.1 3.6 CL 97* 96* CO2 27 30* BUN 33* 33* CREA 1.87* 1.76* CALCIUM 8.5 9.0 Radiology data: No results found. uzena sullivan, LIZY Arango - 08/22/2017 4:26 PM PSTSocial Work: [facility] called and they do not service the area in [place] where patient lives. Called [facility] in [place]. Made referral. They will verify insurance and call back hopefully in am. Spoke with pt and his mother Toby. Transport difficulties for discharge today, but their fr iend should be at [facility] at 1000 08/23. Sasha Blevins LICSW - 08/21/2017 4:06 PM PSTSocial Work: Referral to home health order written for nursing and PT. Pt has wound care needs and PT an d OT are following. SW attempted to meet with pt but pt trying to sleep and he asked for SW to call his Mother. SW called to pt's Mother (phone number on chart). She stated that pt lives with her in her mobile home in [place], [place]. She is agreeable to home health and after review of choice s, chose [facility]. Referral made to [facility] by voicemail and fa x. Will await response from them on whether they can follow; would need to call them when pt d/c's but otherwise they can follow in [facility]. Pt will have a friend pick him up at d/c. SARAH w ill continue to follow and assist with d/c planning. Mehul Rangel MD - 08/21/2017 5:58 AM PST Colorectal Surgery Progress Note Date of Admission: 08/16/2017 Hospital Day #: LOS: 5 days Procedure: Procedure(s): RESECTION BOWEL LOW ANTERIOR, FLEXIBLE SIGMOIDOSCOPY Procedure date: 08/16/2017 Subjective/Interval Hx: Doing well, having bowel function, tolerating clears Assessment POD # 5 lap anterior resection Recommendations: 1. Advance diet as tolerated 2. Discharge planning The remaining data was used to formulate the aforementioned plan. Active Problems: Active Problems: * No active hospital problems. * Current Medications: Scheduled Meds: atorvaSTATin 80 mg Oral Nightly bisacodyl 10 mg Rectal BID carvedilol 6.25 mg Oral BID WC famotidine 20 mg Intravenous 2 times per day heparin 5,000 Units Subcutaneous 2 times per day hydrALAZINE 50 mg Oral TID isosorbide mononitrate 60 mg Oral Daily magnesium oxide 400 mg Oral Daily metoclopramide 10 mg Intravenous 4 times per day spironolactone 50 mg Oral Daily tamsulosin 0.4 mg Oral Daily after breakfast torsemide 20 mg Oral Daily Continuous Infusions: balanced electrolytes in water (PLASMALYTE-148/NORMOSOL-R) 75 mL/hr at 08/21/17 0056 HYDROmorphone in saline PRN Meds:.acetaminophen, aluminum & magnesium hydroxide-simethicone, calcium carbonate, dip henhydrAMINE OR diphenhydrAMINE OR diphenhydrAMINE, HYDROcodone-acetaminophen, HYDRO codone-acetaminophen, menthol throat lozenges, methocarbamol, naloxone, ondansetron, ondanse james, oxyCODONE, oxyCODONE-acetaminophen No Known Allergies Vital Signs: Vitals: 08/20/17 1722 08/20/17200508/20/17 2019 08/21/17 0018 BP: 134/69 125/68 140/75 Pulse: 75 75 74 74 Resp: 16 16 20 16 Temp: 37 C (98.6 F) 36.3 C (97.4 F) 35.9 C (96.6 F) TempSrc: Temporal Temporal Temporal SpO2: 93% 93% 95% 93% Weight: Height: I's&O's: Physical Exam: General: No apparent distress. Abdomen: Soft, non-distended, non-tender. Incision clean/dry/intact. Bowel sounds hypoact ascencion. Labs data: Recent Labs Lab 08/18/17 0825 08/17/17 0358 08/16/17 0930 WBC 14.9* -- 7.9 HGB 11.9* 12.3* 12.5* HCT 35.1* 36.0* 37.6* PLT 324 -- 283 Recent Labs Lab 08/17/17 0358 08/16/17 0930 NA 135 137 K 4.1 3.6 CL 97* 96* CO2 27 30* BUN 33* 33* CREA 1.87* 1.76* CALCIUM 8.5 9.0 Radiology data: No results found. [facility]anc MD - 08/20/2017 6:52 AM PSTFormatting of this note might be different from t he original. Colorectal Surgery Progress Note Date of Admission: 08/16/2017 Hospital Day #: LOS: 4 days Procedure: Procedure(s): RESECTION BOWEL LOW ANTERIOR, FLEXIBLE SIGMOIDOSCOPY Procedure date: 08/16/2017 Subjective/Interval Hx: Having flatus, NG tube output serous Assessment POD # 4 LAR Recommendations: 1. NG clamping trial today 2. Voiding trial The remaining data was used to formulate the aforementioned plan. Active Problems: Active Problems: * No active hospital problems. * Current Medications: Scheduled Meds: atorvaSTATin 80 mg Oral Nightly bisacodyl 10 mg Rectal BID carvedilol 6.25 mg Oral BID WC famotidine 20 mg Intravenous 2 times per day heparin 5,000 Units Subcutaneous 2 times per day hydrALAZINE 50 mg Oral TID isosorbide mononitrate 60 mg Oral Daily magnesium oxide 400 mg Oral Daily metoclopramide 10 mg Intravenous 4 times per day spironolactone 50 mg Oral Daily tamsulosin 0.4 mg Oral Daily after breakfast torsemide 20 mg Oral Daily Continuous Infusions: balanced electrolytes in water (PLASMALYTE-148/NORMOSOL-R) 75 mL/hr at 08/20/17 0106 HYDROmorphone in saline PRN Meds:.acetaminophen, aluminum & magnesium hydroxide-simethicone, calcium carbonate, dip henhydrAMINE OR diphenhydrAMINE OR diphenhydrAMINE, HYDROcodone-acetaminophen, HYDRO codone-acetaminophen, menthol throat lozenges, methocarbamol, naloxone, ondansetron, ondanse james, oxyCODONE, oxyCODONE-acetaminophen No Known Allergies Vital Signs: Vitals: 08/19/17 2358 08/20/17 0005 08/20/17 0330 08/20/17 0424 BP: 130/66 133/75 Pulse: 79 77 76 80 Resp: 18 Temp: 36.4 C (97.6 F) 36.6 C (97.8 F) TempSrc: Temporal Temporal SpO2: 90% 92% 91% 93% Weight: Height: I's&O's: Date 08/19/17 07 - 08/20/17 0708/20/17 07 - 08/21/17 0700 Shift 3627-1490 7501-6745 24 Hour Total 1900-0700 24 Hour Total I N T A K E P.O. 120 120 Water PO (mL) 120 120 I.V. (mL/kg/hr) 594 (0.3) 1199 1793 Volume (mL) (balanced electrolytes in water (PLASMALYTE-148/NORMOSOL-R) infusion) 594 11 99 1793 Shift Total (mL/kg) 594 (3.8) 1319 (8.4) 1913 (12.2) O U T P U T Urine (mL/kg/hr) 250 (0.1) 775 1025 Other 600 1275 1875 Shift Total (mL/kg) 850 (5.4) 2050 (13.1) 2900 (18.5) [facility] -256 -734 -987 Weight (kg) 156.9 156.9 156.9 156.9 156.9 156.9 Physical Exam: General: No apparent distress. Abdomen: Soft, non-distended, non-tender. Incision clean/dry/intact. Bowel sounds hypoact ascencion. Labs data: Recent Labs Lab 08/18/17 0825 08/17/1735708/16/17 0930 WBC 14.9* -- 7.9 HGB 11.9* 12.3* 12.5* HCT 35.1* 36.0* 37.6* PLT 324 -- 283 Recent Labs Lab 08/17/1735708/16/17 0930 NA 135 137 K 4.1 3.6 CL 97* 96* CO2 27 30* BUN 33* 33* CREA 1.87* 1.76* CALCIUM 8.5 9.0 Radiology data: No results found. Eda Marrero RRT - 08/20/2017 4:20 AM PSTPt refused to wear ETCO2 machine after 334. Stated that he is frustrated with it and is unable to sleep with the alarms going off. He wa s not able to tolerate his Bipap with the NG tube in place so his CO2 alarm kept going off. He agreed to be put on the ETCO2 monitor again in the AM. Electronically signed by: Eda Andrea RRT 08/20/2017 4:23 Mehul Rangel MD - 08/19/2017 7:17 AM PST Colorectal Surgery Progress Note Date of Admission: 08/16/2017 Hospital Day #: LOS: 3 days Procedure: Procedure(s): RESECTION BOWEL LOW ANTERIOR, FLEXIBLE SIGMOIDOSCOPY Procedure date: 08/16/2017 Subjective/Interval Hx: Doing well, no flatus, NG tube output serous but high output Assessment POD # 3 LAR Recommendations: 1. Continue NG tube add promotility agents, ambulate 2. Voiding trial tomorrow The remaining data was used to formulate the aforementioned plan. Active Problems: Active Problems: * No active hospital problems. * Current Medications: Scheduled Meds: atorvaSTATin 80 mg Oral Nightly carvedilol 6.25 mg Oral BID WC docusate sodium 100 mg Oral BID heparin 5,000 Units Subcutaneous 2 times per day hydrALAZINE 50 mg Oral TID isosorbide mononitrate 60 mg Oral Daily magnesium oxide 400 mg Oral Daily spironolactone 50 mg Oral Daily torsemide 20 mg Oral Daily Continuous Infusions: balanced electrolytes in water (PLASMALYTE-148/NORMOSOL-R) 75 mL/hr at 08/19/17 0027 HYDROmorphone in saline PRN Meds:.acetaminophen, aluminum & magnesium hydroxide-simethicone, calcium carbonate, dip henhydrAMINE OR diphenhydrAMINE OR diphenhydrAMINE, HYDROcodone-acetaminophen, HYDRO codone-acetaminophen, menthol throat lozenges, methocarbamol, naloxone, ondansetron, ondanse james, oxyCODONE, oxyCODONE-acetaminophen No Known Allergies Vital Signs: Vitals: 08/18/17 1618 08/18/17 2340 08/18/17 2341 08/19/17 0433 BP: 123/69 125/63 106/60 Pulse: 72 77 69 Resp: 20 20 20 Temp: 37.1 C (98.7 F) 36.7 C (98 F) 36.9 C (98.4 F) TempSrc: Temporal Temporal Temporal SpO2: 90% (!) 44% 91% 91% Weight: Height: I's&O's: Date 08/18/17 0701 - 08/19/17 0708/19/17 07 - 08/20/17 0700 Shift 7548-1607 7968-4030 24 Hour Total 9453-4940 7818-5375 24 Hour Total I N T A K E P.O. 180 180 P.O. 0 0 Water PO (mL) 180 180 I.V. (mL/kg/hr) 628 (0.3) 1109 (0.6) 1737 (0.5) I.V. 471 471 Volume (mL) (balanced electrolytes in water (PLASMALYTE-148/NORMOSOL-R) infusion) 628 63 8 1266 IV Piggyback 250 250 Volume (mL) (lactated ringers (LR) bolus 250 mL) 250 250 Shift Total (mL/kg) 878 (5.6) 1289 (8.2) 2167 (13.8) O U T P U T Urine (mL/kg/hr) 300 (0.2) 900 (0.5) 1200 (0.3) Other 1100 1775 2875 Shift Total (mL/kg) 1400 (8.9) 2675 (17) 4075 (26) NET -522 1386 -1908 Weight (kg) 156.9 156.9 156.9 156.9 156.9 156.9 Physical Exam: General: No apparent distress. Abdomen: Soft, non-distended, non-tender. Incision clean/dry/intact. Bowel sounds hypoact ascencion. Labs data: Recent Labs Lab 08/18/17 0825 08/17/17 0358 08/16/17 0930 WBC 14.9* -- 7.9 HGB 11.9* 12.3* 12.5* HCT 35.1* 36.0* 37.6* PLT 324 -- 283 Recent Labs Lab 08/17/17 0358 08/16/17 0930 NA 135 137 K 4.1 3.6 CL 97* 96* CO2 27 30* BUN 33* 33* CREA 1.87* 1.76* CALCIUM 8.5 9.0 Radiology data: No results found. el brandy, Sapphire Nino MD - 08/18/2017 11:47 AM PSTFormatting of this note might be different f rom the original. Colorectal Surgery Progress Note Date of Admission: 08/16/2017 Hospital Day #: LOS: 2 days Procedure: Procedure(s): RESECTION BOWEL LOW ANTERIOR, FLEXIBLE SIGMOIDOSCOPY Procedure date: 08/16/2017 Subjective/Interval Hx: very sleepy today. Bloated. Not passing gas/stool. Up to chair over night. Physical Exam: General: No apparent distress. Alert, oriented Psych: Appropriate mood and affect Pulmonary: Breathing non-labored Abdomen: Soft, obese, distended, mod-tender. Incision clean/dry/intact. Assessment POD # 2 s/p LAR. Ongoing postop ileus. Urinary retention this am. UOP slightly low. Recommendations: 1. Swann back in, small IVF bolus 2. OOB, ambulate The remaining data was used to formulate the aforementioned plan. Active Problems: Active Problems: * No active hospital problems. * Current Medications: Scheduled Meds: atorvaSTATin 80 mg Oral Nightly carvedilol 6.25 mg Oral BID WC docusate sodium 100 mg Oral BID heparin 5,000 Units Subcutaneous 2 times per day hydrALAZINE 50 mg Oral TID isosorbide mononitrate 60 mg Oral Daily magnesium oxide 400 mg Oral Daily spironolactone 50 mg Oral Daily torsemide 20 mg Oral Daily Continuous Infusions: balanced electrolytes in water (PLASMALYTE-148/NORMOSOL-R) 75 mL/hr at 08/17/177 HYDROmorphone in saline lactated ringers Stopped (08/16/17 1315) PRN Meds:.acetaminophen, aluminum & magnesium hydroxide-simethicone, calcium carbonate, dip henhydrAMINE OR diphenhydrAMINE OR diphenhydrAMINE, HYDROcodone-acetaminophen, HYDRO codone-acetaminophen, menthol throat lozenges, methocarbamol, naloxone, ondansetron, ondanse james, oxyCODONE, oxyCODONE-acetaminophen No Known Allergies Vital Signs: Vitals: 08/18/17 0015 08/18/17 0310 08/18/17 0431 08/18/17 0748 BP: 125/79 124/74 135/72 132/68 Pulse: 86 99 88 103 Resp: 24 20 20 Temp: 36.4 C (97.5 F) 36.3 C (97.4 F) 36.6 C (97.9 F) TempSrc: Temporal Temporal Temporal SpO2: 91% 92% 90% Weight: Height: I's&O's: Date 08/17/17 0701 - 08/18/17 0700 08/18/17 0701 - 08/19/17 0700 Shift 4112-3096 0546-9547 24 Hour Total 4851-3485 3439-4895 24 Hour Total I N T A K E P.O. 500 500 P.O. 500 500 I.V. (mL/kg/hr) 605 (0.3) 1261 (0.7) 1866 (0.5) I.V. 1261 1261 Volume (mL) (balanced electrolytes in water (PLASMALYTE-148/NORMOSOL-R) infusion) 605 6 05 Shift Total (mL/kg) 605 (3.9) 1761 (11.2) 2366 (15.1) O U T P U T Urine (mL/kg/hr) 1300 (0.7) 250 (0.1) 1550 (0.4) 300 300 Shift Total (mL/kg) 1300 (8.3) 250 (1.6) 1550 (9.9) 300 (1.9) 300 (1.9) NET -695 1511 816 -300 -300 Weight (kg) 156.9 156.9 156.9 156.9 156.9 156.9 Labs data: Recent Labs Lab 08/18/17 0825 08/17/17 0358 08/16/17 0930 WBC 14.9* -- 7.9 HGB 11.9* 12.3* 12.5* HCT 35.1* 36.0* 37.6* PLT 324 -- 283 Recent Labs Lab 08/17/17 0358 08/16/17 0930 NA 135 137 K 4.1 3.6 CL 97* 96* CO2 27 30* BUN 33* 33* CREA 1.87* 1.76* CALCIUM 8.5 9.0 Radiology data: No results found. eltman, Sapphire leon MD - 08/17/2017 8:45 AM PSTFormatting of this note might be different from the orig inal. Colorectal Surgery Progress Note Date of Admission: 08/16/2017 Hospital Day #: LOS: 1 day Procedure: Procedure(s): RESECTION BOWEL LOW ANTERIOR, FLEXIBLE SIGMOIDOSCOPY Procedure date: 08/16/2017 Subjective/Interval Hx:status post low anterior resection for sigmoid cancer. Patient is m orbidly obese. He has not been ambulating yet today. Not passing any gas or stool. Modera te amount of pain. Physical Exam: General: No apparent distress. Alert, oriented Psych: Appropriate mood and affect Pulmonary: Breathing non-labored Abdomen: Soft, obese, non--distended, tender. Assessment and plan POD # 1 status post low anterior resection. Out of bed today. PT nanette l and treat. Swann out when ambulating. The remaining data was used to formulate the aforementioned plan. Active Problems: Active Problems: * No active hospital problems. * Current Medications: Scheduled Meds: atorvaSTATin 80 mg Oral Nightly carvedilol 6.25 mg Oral BID WC docusate sodium 100 mg Oral BID heparin 5,000 Units Subcutaneous 2 times per day hydrALAZINE 50 mg Oral TID isosorbide mononitrate 60 mg Oral Daily magnesium oxide 400 mg Oral Daily spironolactone 50 mg Oral Daily torsemide 20 mg Oral Daily Continuous Infusions: balanced electrolytes in water (PLASMALYTE-148/NORMOSOL-R) 75 mL/hr at 08/17/17 0800 HYDROmorphone in saline lactated ringers Stopped (08/16/17 1315) PRN Meds:.acetaminophen, aluminum & magnesium hydroxide-simethicone, calcium carbonate, dip henhydrAMINE OR diphenhydrAMINE OR diphenhydrAMINE, HYDROcodone-acetaminophen, HYDRO codone-acetaminophen, menthol throat lozenges, methocarbamol, naloxone, ondansetron, ondanse james, oxyCODONE, oxyCODONE-acetaminophen No Known Allergies Vital Signs: Vitals: 08/17/17 0807 08/17/17 1120 08/17/17 1557 08/17/17 1912 BP: 134/68 109/63 125/68 Pulse: 73 72 80 77 Resp: Temp: 37.2 C (98.9 F) 37.4 C (99.3 F) 36.6 C (97.9 F) TempSrc: Temporal Temporal Temporal SpO2: 90% 92% 94% 92% Weight: Height: I's&O's: Date 08/16/17 1901 - 08/17/17 0700 08/17/17 07 - 08/18/17 0700 Shift 5832-8884 24 Hour Total 0767-4784 9727-3736 24 Hour Total I N T A K E P.O. 500 500 P.O. 500 500 I.V. (mL/kg/hr) 914 2040 605 (0.3) 605 I.V. 426 Volume (mL) (balanced electrolytes in water (PLASMALYTE-148/NORMOSOL-R) infusion) 813 81 3 605 605 Volume (mL) (lactated ringers (LR) infusion) 101 801 Shift Total (mL/kg) 914 (5.8) 2040 (13) 605 (3.9) 500 (3.2) 1105 (7) O U T P U T Urine (mL/kg/hr) 935 649 8774 (0.7) 1300 Blood 150 Shift Total (mL/kg) 175 (1.1) 650 (4.1) 1300 (8.3) 1300 (8.3) NET 739 1390 -695 500 -195 Weight (kg) 156.9 156.9 156.9 156.9 156.9 Labs data: Recent Labs Lab 08/17/17 0358 08/16/17 0930 WBC -- 7.9 HGB 12.3* 12.5* HCT 36.0* 37.6* PLT -- 283 Recent Labs Lab 08/17/17 0358 08/16/17 0930 NA 135 137 K 4.1 3.6 CL 97* 96* CO2 27 30* BUN 33* 33* CREA 1.87* 1.76* CALCIUM 8.5 9.0 Radiology data: No results found. documented in t his encounter Plan of Treatment +--------+---------+ + + + | Date | Type | Specialty | Care Team | Description | +--------+---------+ + + + | 03/17/ | Office | Cardiology | Lorraine Clifton DO | | | 2019 | Visit | | [address] | | | | | | [facility] [place] | | | | | | [id number] | | | | | | | | +--------+---------+ + + + + + +--------+ + + | Name | Type | Priori | Associated Diagnoses | Order Schedule | | | | ty | | | + + +--------+ + + | Referral to Home | Outpatient | Routin | Surgery follow-up | Ordered: 08/21/2017 | | Health - OUTPATIENT | Referral | e | | | + + +--------+ + + documented as of this encounter Procedures + +--------+ + + + | Procedure Name | Priori | Date/Time | Associated Diagnosis | Comments | | | ty | | | | + +--------+ + + + | CBC NO DIFFERENTIAL | Routin | 08/18/2017 | | Results for this | | | e | 8:25 AM | | procedure are in the | | | | PST | | results section. | + +--------+ + + + | HEMOGLOBIN AND | Routin | 08/17/2017 | | Results for this | | HEMATOCRIT | e | 3:58 AM | | procedure are in the | | | | PST | | results section. | + +--------+ + + + | BASIC METABOLIC | Routin | 08/17/2017 | | Results for this | | PANEL | e | 3:58 AM | | procedure are in the | | | | PST | | results section. | + +--------+ + + + | SURGICAL PATHOLOGY | Routin | 08/16/2017 | | Results for this | | EXAM | e | 12:53 PM | | procedure are in the | | | | PST | | results section. | + +--------+ + + + | RESECTION BOWEL LOW | | 08/16/2017 | Malignant neoplasm | | | ANTERIOR | | 11:12 AM | of sigmoid colon | | | | | PST | (HCC) | | + +--------+ + + + | CBC NO DIFFERENTIAL | Routin | 08/16/2017 | | Results for this | | | e | 9:30 AM | | procedure are in the | | | | PST | | results section. | + +--------+ + + + | COMPREHENSIVE | Routin | 08/16/2017 | | Results for this | | METABOLIC PANEL | e | 9:30 AM | | procedure are in the | | | | PST | | results section. | + +--------+ + + + | MRSA NAAT | Routin | 08/16/2017 | | Results for this | | | e | 9:15 AM | | procedure are in the | | | | PST | | results section. | + +--------+ + + + | POC GLUCOSE | Routin | 08/16/2017 | | Results for this | | | e | 9:06 AM | | procedure are in the | | | | PST | | results section. | + +--------+ + + + | ECG - EXTERNAL SCAN | | 08/01/2017 | | Results for this | | | | 12:00 AM | | procedure are in the | | | | PST | | results section. | + +--------+ + + + | ECG - EXTERNAL SCAN | | 08/01/2017 | | Results for this | | | | 12:00 AM | | procedure are in the | | | | PST | | results section. | + +--------+ + + + | LABS - EXTERNAL SCAN | | 07/29/2017 | | Results for this | | | | 12:00 AM | | procedure are in the | | | | PST | | results section. | + +--------+ + + + documented in this encounter Results CBC no Differential (08/18/2017 8:25 AM PST) + + + + + + | Component | Value | Ref Range | Performed | Pathologist | | | | | At | Signature | + + + + + + | WBC | 14.9 (H) | 3.8 - 11.0 K/uL | [facility] | | [facility] | | | | | | [facility] | | + + + + + + | RBC | 3.71 (L) | 4.20 - 5.70 | [facility] | | | | | M/uL | [facility] | | [facility] | | | | | | [facility] | | | | | | LAB[facility]ATORY | | + + + + + + | Hemoglobin | 11.9 (L) | 13.2 - 17.0 | [facility] | | | | | g/dL | [facility] | | | | | [facility] | | | | | | [facility] | | | | | | LAB[facility]ORY | | + + + + + + | Hematocrit | 35.1 (L) | 39.0 - 50.0 % | [facility] | | [facility] | | | | | [facility] | | | | | [facility] | | | | | | LAB[facility]ORY | | + + + + + + | MCV | 94.7 | 80.0 - 100.0 fL | [facility] | [facility] | | | | | [facility] | | | | | [facility] | | | | | | LABORATORY | | + + + + + + | MCH | 32.0 | 27.0 - 34.0 pg | [facility] | | | | [facility] | | | | | [facility] | | | | | [facility] | | | | | | LABORATORY | | + + + + + + | MCHC | 33.8 | 32.0 - 35.5 | [facility] | | | | | g/dL | [facility] | [facility] | | | | | | [facility] | | | | | | [facility] | | | | | | LABORATORY | | + + + + + + | RDW-CV | 14.3 | 11.0 - 15.5 % | [facility] | | | | | | [facility] | | | | | [facility] | | | | | | [facility] | | | | | | LABORATORY | | + + + + + + | Platelet | 324 | 150 - 400 K/uL | [facility] | | | Count | | | [facility] | | [facility] | | | | | | [facility] | | | | | | [facility] | | | | | | LABORATORY | | + + + + + + + + | Specimen | + + | Blood | + + + + + + + | Performing | Address | City/State/Zipcode | Phone Number | | Organization | | | | + + + + + | [facility] | [address] | [place] [address] | | | [facility] | | | | | LABORATORY | | | | + + + + + Hemoglobin and Hematocrit (08/17/2017 3:58 AM PST) + + + + + + | Component | Value | Ref Range | Performed | Pathologist | | | | | At | Signature | + + + + + + | Hemoglobin | 12.3 (L) | 13.2 - 17.0 | [facility] | | | | | g/dL | [facility] | [facility] | | [facility] | | | | | | [facility] | | | | | | [facility] | | | | | | LABORATORY | | + + + + + + | Hematocrit | 36.0 (L) | 39.0 - 50.0 % | [facility] | | | | [facility] | | | | | | [facility] | | | | | | [facility] | | | | | | LABORATORY | | + + + + + + + + | Specimen | + + | Blood | + + + + + + + | Performing | Address | City/State/Zipcode | Phone Number | | Organization | | | | + + + + + | [facility] | [address] | [place] [address] | | | [facility] | | | | | LABORATORY | | | | + + + + + Basic Metabolic Panel (08/17/2017 3:58 AM PST) + + + + + + | Component | Value | Ref Range | Performed | Pathologist | | | | | At | Signature | + + + + + + | Na | 135 | 135 - 145 | [facility] | | | | | mmol/L | [facility] | | | | | [facility] | | | | | | [facility] | | | | | | [facility]ENTER | | | | | | LABORATORY | | + + + + + + | K | 4.1 | 3.5 - 5.0 | [facility] | | | | | mmol/L | [facility] | | | | | [facility] | | | | | | [facility] | | | | | | [facility] | | | | | | LABORATORY | | + + + + + + | Cl | 97 (L) | 99 - 109 mmol/L | [facility] | | | | | [facility] | [facility] | [facility] | | | | | | [facility] | | | | | | [facility] | | | | | | LABORATORY | | + + + + + + | CO2 | 27 | 21 - 28 mmol/L | [facility] | | | | | [facility] | [facility] | | | | | | [facility] | | | | | | [facility] | | | | | | LABORATORY | | + + + + + + | Glucose | 149 (H)Comment: Nauruan | 65 - 99 mg/dL | [facility] | | | | Diabetes Association | | [facility] | | | | diagnostic categories | | HEART | | | | for non adults: | | MEDICAL | | | | Impaired fasting | | CENTER | | | | glucose 100 to 125 | | LABORATORY | | | | mg/dL. A fasting | | | | | | glucose result of 126 | | | | | | mg/dL or greater | | | | | | indicates diabetes if | | | | | | the abnormality is | | | | | | confirmed on a | | | | | | subsequent day. A | | | | | | random glucose result of | | | | | | greater than 200 mg/dL | | | | | | indicates diabetes if | | | | | | the abnormality is | | | | | | confirmed on a | | | | | | subsequent day. | | | | + + + + + + | BUN | 33 (H) | 8 - 25 mg/dL | [facility] | | | | | [facility] | [facility] | | | | | | [facility] | | | | | | [facility] | | | | | | LABORATORY | | + + + + + + | Creatinine | 1.87 (H)Comment: IDMS | 0.70 - 1.30 | [facility] | | | | traceable creatinine | mg/dL | [facility] | | | | | [facility] | | | | | | [facility] | | | | | | CENTER | | | | | | LABORATORY | | + + + + + + | Calcium | 8.5 | 8.5 - 10.2 | [facility] | | | | | mg/dL | [facility] | | | | | [facility] | | | | | | [facility] | | | | | | [facility]ENTER | | | | | | LABORATORY | | + + + + + + | Anion Gap | 11 | 5 - 16 mmol/L | [facility] | | | | | | [facility] | | | | | [facility] | | | | | | [facility] | | | | | | [facility]ENTER | | | | | | LABORATORY | | + + + + + + | Estimated | 38 (L)Comment: GFR <60: | >60 | [facility] | | | GFR | Chronic kidney disease, | ml/min/1.73m2 | [facility] | | | | if found over a 3 month | | HEART | | | | period.GFR <15: Kidney | | MEDICAL | | | | failure.For | | CENTER | | | | Americans, multiply the | | LABORATORY | | | | calculated GFR by 1.210 | | | | + + + + + + + + | Specimen | + + | Blood | + + + + + + + | Performing | Address | City/State/Zipcode | Phone Number | | Organization | | | | + + + + + | [facility] | [address] | [place] [address] | | | [facility] | | | | | LABORATORY | | | | + + + + + Surgical Pathology Exam (08/16/2017 12:53 PM PST) + + | Specimen | + + | | + + + + + | Narrative | Performed At | + + + | SURGICAL PATHOLOGY REPORT | [facility] | | Date Taken: 08/16/2017 Date Received: 08/16/2017 | [facility] | | Completed: 08/20/2017 Physician: Mehul KINSEY Copy to: [facility] | | DIAGNOSIS: Colon, sigmoid, segmental resection: - | LABORATORY | | Invasive adenocarcinoma with the following features- - | | | Tumor site: Sigmoid colon. - Specimen integrity: | | | Received in two fragments. - Size of invasive carcinoma: | | | 2.5 cm in greatest dimension. - Histologic type: | | | Adenocarcinoma. - Histologic grade: Moderately | | | differentiated. - Tumor extension: Tumor invades submucosa. | | | - Margins: All margins are uninvolved by invasive carcinoma. | | | Tumor comes within 4.3 cm of the closest (longitudinal) margin. - | | | Lymphovascular invasion: Not identified. - Perineural | | | invasion: Not identified. - Regional lymph nodes: - | | | Number of lymph nodes involved: 0. - Number of lymph | | | nodes examined: 14. - Pathologic Stage: pT1 N0. | | | 0-Mehul Staley MD Electronic signature GROSS | | | DESCRIPTION: The specimen labeled and designated "[place]- sigmoid | | | colon" is received in formalin partially opened, in two segments, | | | and consists of two unoriented segments of bowel measuring 14.9 cm in | | | length x 2.5 cm in diameter and 7.7 cm in length x 2.1 cm in | | | diameter. The longer portion of colon is arbitrarily designated as | | | segment #1 and the smaller portion of colon is arbitrarily designated | | | as segment #2. The serosa of segment #1 is ramirez-pale pink, smooth | | | and glistening, with two stapled resection margins and a copious | | | amount of yellow, lobulated pericolonic adipose tissue present. The | | | segment is further opened to reveal ramirez-brown, wrinkled and | | | glistening mucosa with a fungating, ramirez-pale pink to focally | | | hemorrhagic mass measuring 2.5 x 2.2 x 0.4 cm, located 4.3 cm from | | | the stapled resection margin arbitrarily designated as A and 9.1 cm | | | from stapled resection margin arbitrarily designated as B. The mass | | | is also grossly located 7.5 cm from the radial adipose margin. The | | | mass is serially sectioned to reveal a gross involvement of 0.5 cm on | | | the cut surface. The mass does not appear to grossly involve the | | | muscularis mucosa. No other lesions or nodules are identified | | | grossly. The serosa of segment #2 is purple-davies, glistening, with | | | two stapled resection margins and a minimal amount of adherent | | | pericolonic adipose tissue attached. The specimen is further opened | | | to reveal ramirez-brown, wrinkled and glistening mucosa. No distinct | | | lesions or nodules are identified grossly. The pericolonic | | | adipose tissue is serially sectioned and palpated post fixation in | | | Tri-Fix to reveal eighteen pink-white lymph node candidates ranging | | | from 0.1 cm to 0.5 cm in greatest dimension. [employer] | | | sections are submitted as follows: "A1" radial adipose tissue of | | | margin (en face); "A2-A3" fungating, focally hemorrhagic mass, | | | including deepest point of involvement in cassette "A3"; "A5" | | | resection margin A from segment #1 (inked green), fragmented and | | | submitted en face; "A6" resection margin B from segment #1 (inked | | | blue), en face; "A7" resection margin arbitrarily designated A from | | | segment #2 (inked orange), perpendicular; and "A8" resection margin | | | arbitrarily designated as B from segment #2 (inked yellow), | | | perpendicular; "A9" five lymph node candidates , intact; "A10" five | | | lymph node candidates, intact; "A11" five lymph node candidates, | | | intact; "A12" three lymph node candidates, intact. ([facility]) | | | MICROSCOPIC DESCRIPTION: Histologic sections of all submitted blocks | | | are examined by light microscopy. These findings, together with the | | | gross examination, support the pathologic diagnosis. A: | | | [id number], [id number], [id number], [id number], [id number]) | | | PROCEDURES/ADDENDA SPECIAL STAINS DIAGNOSIS: Colon, sigmoid | | | (block A3): - Preserved nuclear expression within | | | tumor cells for MLH1, MSH6, MSH2 and PMS2. 0-M (01/13/18-kk) | | | DISCUSSION: Tumor cells show intact protein expression of MLH1, | | | MSH2, MSH6, and PMS2, suggesting that these DNA-mismatch repair | | | enzymes are functional. The panel of four antibodies performed will | | | detect 98% of microsatellite unstable carcinoma. However, the rare | | | possibility of functionally defective, but immunologically intact | | | enzymes, cannot be excluded. If there is a high clinical suspicion | | | for hereditary non-polyposis colorectal carcinoma syndrome in this | | | patient, consider additional molecular testing for microsatellite | | | instability. Please inform the laboratory if such test is desired. | | | Ancillary studies were performed on this case with appropriate | | | controls. These tests may not have been cleared or approved by the | | | U.[place] Food and Drug Administration. The FDA has determined that such | | | clearance or approval is not necessary, since such tests were | | | developed and their performance characteristics determined by [facility] | | [facility]. This test is used for clinical | | | purposes. It should not be regarded as investigational or for | | | research. [facility] is certified under the Clinical | | | Laboratory Improvement Amendments of 1988 (CLIA) as qualified to | | | perform high complexity clinical laboratory testing. Comment: | | | Breast predictive markers have not been validated on decalcified | | | specimens. Bladimir Staley MD Testing performed | | | at: [facility] | | | Michelle Arredondo, Director [address] [place] [address] [address] [place], [place] | | | [address] | | + + + + + + + + | Performing | Address | City/State/Zipcode | Phone Number | | Organization | | | | + + + + + | [facility] | [address] | [place] [address] | | | [facility] | | | | | LABORATORY | | | | + + + + + Comprehensive Metabolic Panel (08/16/2017 9:30 AM PST) + + + + + + | Component | Value | Ref Range | Performed | Pathologist | | | | | At | Signature | + + + + + + | Na | 137 | 135 - 145 | [facility] | | | | | mmol/L | [facility] | | | [facility] | | | | | | [facility] | | | | | | [facility]ENTER | | | | | | LABORATORY | | + + + + + + | K | 3.6 | 3.5 - 5.0 | [facility] | | | | | mmol/L | [facility] | | | | | [facility] | | | | | | [facility] | | | | | | CENTER | | | | | | LABORATORY | | + + + + + + | Cl | 96 (L) | 99 - 109 mmol/L | [facility] | | | | | | [facility] | [facility] | | | | | | [facility] | | | | | | CENTER | | | | | | LABORATORY | | + + + + + + | CO2 | 30 (H) | 21 - 28 mmol/L | [facility] | | | | [facility] | [facility] | | | | | | [facility] | | | | | | [facility] | | | | | | LABORATORY | | + + + + + + | Glucose | 113 (H)Comment: Nauruan | 65 - 99 mg/dL | [facility] | | | | Diabetes Association | | [facility] | | | | diagnostic categories | | HEART | | | | for non adults: | | MEDICAL | | | | Impaired fasting | | CENTER | | | | glucose 100 to 125 | | LABORATORY | | | | mg/dL. A fasting | | | | | | glucose result of 126 | | | | | | mg/dL or greater | | | | | | indicates diabetes if | | | | | | the abnormality is | | | | | | confirmed on a | | | | | | subsequent day. A | | | | | | random glucose result of | | | | | | greater than 200 mg/dL | | | | | | indicates diabetes if | | | | | | the abnormality is | | | | | | confirmed on a | | | | | | subsequent day. | | | | + + + + + + | BUN | 33 (H) | 8 - 25 mg/dL | [facility] | | | | | | [facility] | | [facility] | | [facility] | | | | | | [facility] | | | | | | [facility]ENTER | | | | | | LABORATORY | | + + + + + + | Creatinine | 1.76 (H)Comment: IDMS | 0.70 - 1.30 | [facility] | | | | traceable creatinine | mg/dL | [facility] | | | | | | [facility] | | | | | | MEDICAL | | | | | | CENTER | | | | | | LABORATORY | | + + + + + + | Calcium | 9.0 | 8.5 - 10.2 | [facility] | | | | | mg/dL | [facility] | | | | | | [facility] | | | | | | MEDICAL | | | | | | CENTER | | | | | | LABORATORY | | + + + + + + | Total | 7.2 | 6.1 - 8.4 g/dL | [facility] | | | Protein | | | [facility] | | | | | | [facility] | | | | | | MEDICAL | | | | | | CENTER | | | | | | LABORATORY | | + + + + + + | Albumin | 3.9 | 3.5 - 5.0 g/dL | [facility] | | | | | | [facility] | | | | | | [facility] | | | | | | [facility] | | | | | | CENTER | | | | | | LABORATORY | | + + + + + + | Bilirubin | 0.7 | 0.1 - 1.5 mg/dL | [facility] | | | Total | | | [facility] | | | | | | [facility] | | | | | | MEDICAL | | | | | | CENTER | | | | | | LABORATORY | | + + + + + + | Alkaline | 62 | 35 - 115 U/L | [facility] | | | Phosphatase | | | [facility] | | | | | | HE[facility] | | | | | | MEDICAL | | | | | | CENTER | | | | | | LABORATORY | | + + + + + + | AST | 19 | 10 - 45 U/L | [facility] | | | | | | [facility] | | | | | | [facility] | | | | | | MEDICAL | | | | | | CENTER | | | | | | LABORATORY | | + + + + + + | ALT | 20 | 10 - 65 U/L | [facility] | | | | | | [facility] | | | | | | [facility] | | | | | | MEDICAL | | | | | | CENTER | | | | | | LABORATORY | | + + + + + + | Anion Gap | 11 | 5 - 16 mmol/L | [facility] | | | | | | [facility] | | | | | | [facility] | | | | | | MEDICAL | | | | | | CENTER | | | | | | LABORATORY | | + + + + + + | Estimated | 40 (L)Comment: GFR <60: | >60 | [facility] | | | GFR | Chronic kidney disease, | ml/min/1.73m2 | [facility] | | | | if found over a 3 month | | HEART | | | | period.GFR <15: Kidney | | MEDICAL | | | | failure.For | | CENTER | | | | Americans, multiply the | | LABORATORY | | | | calculated GFR by 1.210 | | | | + + + + + + + + | Specimen | + + | Blood | + + + + + + + | Performing | Address | City/State/Zipcode | Phone Number | | Organization | | | | + + + + + | [facility] | [address] | [place] [address] | | | [facility] | | | | | LABORATORY | | | | + + + + + CBC no Differential (08/16/2017 9:30 AM PST) + + + + + + | Component | Value | Ref Range | Performed | Pathologist | | | | | At | Signature | + + + + + + | WBC | 7.9 | 3.8 - 11.0 K/uL | [facility] | | | [facility] | [facility] | [facility] | | | | | | [facility] | | | | | | CENTER | | | | | | LABORATORY | | + + + + + + | RBC | 3.97 (L) | 4.20 - 5.70 | [facility] | | | | | M/uL | [facility] | | | | | | [facility] | | | | | | MEDICAL | | | | | | CENTER | | | | | | LABORATORY | | + + + + + + | Hemoglobin | 12.5 (L) | 13.2 - 17.0 | [facility] | | | | | g/dL | [facility] | | | | | | HE[facility] | | | | | | MEDICAL | | | | | | CENTER | | | | | | LABORATORY | | + + + + + + | Hematocrit | 37.6 (L) | 39.0 - 50.0 % | [facility] | | | | | | [facility] | [facility] | [facility] | | | | | | [facility] | | | | | | CENTER | | | | | | LABORATORY | | + + + + + + | MCV | 94.6 | 80.0 - 100.0 fL | [facility] | | | | | | [facility] | [facility] | | | [facility] | | | | | | MED[facility] | | | | | | CENTER | | | | | | LABORATORY | | + + + + + + | MCH | 31.4 | 27.0 - 34.0 pg | [facility] | | | | | | [facility] | [facility] | | [facility] | | | | | | [facility] | | | | | | CENTER | | | | | | LABORATORY | | + + + + + + | MCHC | 33.2 | 32.0 - 35.5 | [facility] | | | | | g/dL | [facility] | | | | | | [facility] | | | | | | MEDICAL | | | | | | CENTER | | | | | | LABORATORY | | + + + + + + | RDW-CV | 14.2 | 11.0 - 15.5 % | [facility] | | | | | | [facility] | | | | | [facility] | | | | | | MED[facility] | | | | | | CENTER | | | | | | LABORATORY | | + + + + + + | Platelet | 283 | 150 - 400 K/uL | [facility] | | | Count | | | [facility] | | | | | | [facility] | | | | | | MEDICAL | | | | | | CENTER | | | | | | LABORATORY | | + + + + + + + + | Specimen | + + | Blood | + + + + + + + | Performing | Address | City/State/Zipcode | Phone Number | | Organization | | | | + + + + + | [facility] | [address] | [place] [address] | | | [facility] | | | | | LABORATORY | | | | + + + + + MRSA NAAT (08/16/2017 9:15 AM PST) + + + + + + | Component | Value | Ref Range | Performed | Pathologist | | | | | At | Signature | + + + + + + | Specimen | Nasal | | [facility] | | | Source | | | [facility] | | | | | [facility] | | | | | | MEDICAL | | | | | | CENTER | | | | | | LABORATORY | | + + + + + + | MRSA BY | Negative | Negative | [facility] | | | PCR. | | | [facility] | | | | | | [facility] | | | | | | MEDICAL | | | | | | CENTER | | | | | | LABORATORY | | + + + + + + + + | Specimen | + + | Respiratory - | | Nasal/Nose | + + + + + + + | Performing | Address | City/State/Zipcode | Phone Number | | Organization | | | | + + + + + | [facility] | [address] [facility] [address] | [place] [address] | | | [facility] | | | | | LABORATORY | | | | + + + + + POC Glucose (08/16/2017 9:06 AM PST) + +---------+ + + + | Component | Value | Ref Range | Performed | Pathologist | | | | | At | Signature | + +---------+ + + + | Glucose, | 116 (H) | 65 - 99 mg/dL | [facility] | | | POC | | | [facility] | | | | | [facility] | | | | | | MEDICAL | | | | | | CENTER | | | | | | LABORATORY | | + +---------+ + + + + + | Specimen | + + | | + + + + + + + | Performing | Address | City/State/Zipcode | Phone Number | | Organization | | | | + + + + + | [facility] | [address] | [place] [address] | | | [facility] | | | | | LABORATORY | | | | + + + + + ECG - EXTERNAL SCAN (08/01/2017 12:00 AM PST) + + + | Narrative | Performed At | + + + | Ordered by an | | | unspecified provider. | | + + + ECG - EXTERNAL SCAN (08/01/2017 12:00 AM PST) + + + | Narrative | Performed At | + + + | Ordered by an | | | unspecified provider. | | + + + LABS - EXTERNAL SCAN (07/29/2017 12:00 AM PST) + + + | Narrative | Performed At | + + + | Ordered by an | | | unspecified provider. | | + + + documented in this encounter Visit Diagnoses + + | Diagnosis | + + | Malignant neoplasm of sigmoid colon (HCC) Malignant neoplasm of sigmoid colon | + + documented in this encounter Administered Medications + +--------+---------+------+------+------+ | Medication Order | MAR | Action | Dose | Rate | Site | | | Action | Date | | | | + +--------+---------+------+------+------+ + +---+ | acetaminophen (TYLENOL) tablet | | | 650 mg 650 mg, Oral, EVERY 4 | | | HOURS PRN, Pain, Fever, Starting | | | 08/16/17 at 1843, Post-op/Phase | | | II | | + +---+ | | | + +---+ + +-------+ +--------+---+---+ | aluminum & magnesium | Given | 08/17/19 | 30 mLs | | | | hydroxide-simethicone (MAALOX | | 18 11:48 | | | | | PLUS REGULAR STRENGTH) 200-200-20 | | PM PST | | | | | mg/5 mL suspension 30 mL 30 mL, | | | | | | | Oral, EVERY 6 HOURS PRN, | | | | | | | Indigestion, Starting 08/16/17 | | | | | | | at 1843, Cullen pichardo, | | | | | | | Post-op/Phase II | | | | | | + +-------+ +--------+---+---+ +---+---+ | | | +---+---+ + +-------+ +-------+---+---+ | atorvaSTATin (LIPITOR) tablet | Given | 08/22/19 | 80 mg | | | | 80 mg 80 mg, Oral, NIGHTLY, | | 18 9:43 | | | | | First dose on 08/16/17 at 2100 | | PM PST | | | | + +-------+ +-------+---+---+ +-------+ +-------+---+---+ | Given | 08/21/19 | 80 mg | | | | | 18 8:18 | | | | | | PM PST | | | | +-------+ +-------+---+---+ | Given | 08/20/19 | 80 mg | | | | | 18 9:23 | | | | | | PM PST | | | | +-------+ +-------+---+---+ + +---+ | | | + +---+ | bisacodyl (DULCOLAX) | | | suppository 10 mg 10 mg, Rectal, | | | 2 TIMES DAILY PRN, Constipation, | | | Starting 08/21/17 at 0600 | | + +---+ | | | + +---+ + +-------+ + +---+---+ | calcium carbonate (TUMS) | Given | 08/18/19 | 1,000 mg | | | | chewable tablet 1,000 mg 1,000 | | 18 1:35 | | | | | mg, Oral, EVERY 2 HOURS PRN, | | PM PST | | | | | Indigestion, Starting 08/16/17 | | | | | | | at 1843, Post-op/Phase II | | | | | | + +-------+ + +---+---+ +-------+ + +---+---+ | Given | 08/18/19 | 1,000 mg | | | | | 18 5:11 | | | | | | AM PST | | | | +-------+ + +---+---+ | Given | 08/17/19 | 1,000 mg | | | | | 18 9:49 | | | | | | PM PST | | | | +-------+ + +---+---+ +---+---+ | | | +---+---+ + +-------+ +---------+---+---+ | carvedilol (COREG) tablet 6.25 | Given | 08/23/19 | 6.25 mg | | | | mg 6.25 mg, Oral, 2 TIMES DAILY | | 18 8:34 | | | | | WITH BREAKFAST & DINNER, First | | AM PST | | | | | dose on Sat08/16/17 at 1700 | | | | | | + +-------+ +---------+---+---+ +-------+ +---------+---+---+ | Given | 08/22/19 | 6.25 mg | | | | | 18 5:52 | | | | | | PM PST | | | | +-------+ +---------+---+---+ | Given | 08/22/19 | 6.25 mg | | | | | 18 8:43 | | | | | | AM PST | | | | +-------+ +---------+---+---+ + +---+ | | | + +---+ | diphenhydrAMINE (BENADRYL) 12.5 | | | mg/5 mL liquid 25 mg 25 mg, | | | Oral, EVERY 4 HOURS PRN, Itching, | | | Starting Sat08/16/17 at 1843, | | | Oral route is preferred., | | | Post-op/Phase II | | + +---+ | | | + +---+ | diphenhydrAMINE (BENADRYL) | | | injection 12.5 mg 12.5 mg, | | | Intravenous, EVERY 4 HOURS PRN, | | | Itching, Starting 08/16/17 at | | | 1843, Oral route is preferred., | | | Post-op/Phase II | | + +---+ | | | + +---+ | diphenhydrAMINE (BENADRYL) | | | tablet 25 mg 25 mg, Oral, EVERY | | | 4 HOURS PRN, Itching, Starting | | | 08/16/17 at 1843, Oral route is | | | preferred., Post-op/Phase II | | + +---+ | | | + +---+ + +-------+ +-------+---+---+ | famotidine (PEPCID) tablet 20 | Given | 08/23/19 | 20 mg | | | | mg 20 mg, Oral, 2 TIMES DAILY, | | 18 8:33 | | | | | First dose on Sat08/21/17 at | | AM PST | | | | | 0900, Interchanged from IV | | | | | | | formulation to PO per P&T | | | | | | | protocol., | | | | | | + +-------+ +-------+---+---+ +-------+ +-------+---+---+ | Given | 08/22/19 | 20 mg | | | | | 18 9:43 | | | | | | PM PST | | | | +-------+ +-------+---+---+ | Given | 08/22/19 | 20 mg | | | | | 18 8:43 | | | | | | AM PST | | | | +-------+ +-------+---+---+ +---+---+ | | | +---+---+ + +-------+ +--------+---+ + | heparin 5,000 units/mL | Given | 08/23/19 | 5,000 | | Leg-Left | | injection 5,000 Units 5,000 | | 18 8:34 | Units | | Upper | | Units, Subcutaneous, EVERY 12 | | AM PST | | | | | HOURS (2 times per day), First | | | | | | | dose on Sat08/16/17 at 2100, Give | | | | | | | first dose within 20 hours of | | | | | | | surgery end time. | | | | | | | Nursing/Pharmacy to retime first | | | | | | | dose to 1900 for surgeries ending | | | | | | | between 2200 and 0900. , | | | | | | | Post-op/Phase II | | | | | | + +-------+ +--------+---+ + +-------+ +--------+---+ + | Given | 08/22/19 | 5,000 | | Arm-Left | | | 18 9:43 | Units | | Upper | | | PM PST | | | | +-------+ +--------+---+ + | Given | 08/22/19 | 5,000 | | Leg-Left | | | 18 8:46 | Units | | Upper | | | AM PST | | | | +-------+ +--------+---+ + +---+---+ | | | +---+---+ + +-------+ +-------+---+---+ | hydrALAZINE (APRESOLINE) tablet | Given | 08/23/19 | 50 mg | | | | 50 mg 50 mg, Oral, 3 TIMES | | 18 8:34 | | | | | DAILY, First dose on Sat08/16/17 | | AM PST | | | | | at 1400 | | | | | | + +-------+ +-------+---+---+ +-------+ +-------+---+---+ | Given | 08/22/19 | 50 mg | | | | | 18 9:43 | | | | | | PM PST | | | | +-------+ +-------+---+---+ | Given | 08/22/19 | 50 mg | | | | | 18 2:23 | | | | | | PM PST | | | | +-------+ +-------+---+---+ +---+---+ | | | +---+---+ + +-------+ + +---+---+ | HYDROcodone-acetaminophen | Given | 08/23/19 | 1 tablet | | | | (NORCO) 10-325 mg per tablet 1-2 | | 18 1:48 | | | | | tablet 1-2 tablet, Oral, EVERY 4 | | AM PST | | | | | HOURS PRN, Pain, Starting Fri | | | | | | | 08/16/17 at 1843 | | | | | | + +-------+ + +---+---+ +-------+ + +---+---+ | Given | 08/21/19 | 1 tablet | | | | | 18 3:21 | | | | | | PM PST | | | | +-------+ + +---+---+ | Given | 08/21/19 | 1 tablet | | | | | 18 10:02 | | | | | | AM PST | | | | +-------+ + +---+---+ +---+---+ | | | +---+---+ + +-------+ + +---+---+ | HYDROcodone-acetaminophen | Given | 08/23/19 | 1 tablet | | | | (NORCO) 5-325 mg per tablet 1-2 | | 18 10:12 | | | | | tablet 1-2 tablet, Oral, EVERY 4 | | AM PST | | | | | HOURS PRN, Pain, Starting Fri | | | | | | | 08/16/17 at 1843 | | | | | | + +-------+ + +---+---+ +---+---+ | | | +---+---+ + +-------+ +-------+---+---+ | isosorbide mononitrate (IMDUR) | Given | 08/23/19 | 60 mg | | | | ER tablet 60 mg 60 mg, Oral, | | 18 8:33 | | | | | DAILY, First dose on Sat08/16/17 | | AM PST | | | | | at 1330 | | | | | | + +-------+ +-------+---+---+ +-------+ +-------+---+---+ | Given | 08/22/19 | 60 mg | | | | | 18 8:43 | | | | | | AM PST | | | | +-------+ +-------+---+---+ | Given | 08/21/19 | 60 mg | | | | | 18 10:01 | | | | | | AM PST | | | | +-------+ +-------+---+---+ +---+---+ | | | +---+---+ + +-------+ +--------+---+---+ | magnesium oxide (MAG-OX) tablet | Given | 08/23/19 | 400 mg | | | | 400 mg 400 mg, Oral, DAILY, | | 18 8:34 | | | | | First dose on Sat08/16/17 at 1330 | | AM PST | | | | + +-------+ +--------+---+---+ +-------+ +--------+---+---+ | Given | 08/22/19 | 400 mg | | | | | 18 8:43 | | | | | | AM PST | | | | +-------+ +--------+---+---+ | Given | 08/21/19 | 400 mg | | | | | 18 10:02 | | | | | | AM PST | | | | +-------+ +--------+---+---+ + +---+ | | | + +---+ | menthol (HALLS) lozenge 1 | | | lozenge 1 lozenge, Buccal, EVERY | | | 2 HOURS PRN, Sore Throat, | | | Starting 08/16/17 at 1843, | | | Post-op/Phase II | | + +---+ | | | + +---+ | methocarbamol (ROBAXIN) tablet | | | 1,500 mg 1,500 mg, Oral, EVERY 6 | | | HOURS PRN, Muscle spasms, | | | Starting Sat08/16/17 at 1843 | | + +---+ | | | + +---+ + +-------+ +-------+---+---+ | metoclopramide (REGLAN) tablet | Given | 08/22/19 | 10 mg | | | | 10 mg 10 mg, Oral, 4 TIMES DAILY | | 18 9:43 | | | | | BEFORE MEALS & NIGHTLY, First | | PM PST | | | | | dose on Sat08/21/17 at 1130, | | | | | | | Interchanged from IV formulation | | | | | | | to PO per P&T protocol., | | | | | | + +-------+ +-------+---+---+ +-------+ +-------+---+---+ | Given | 08/22/19 | 10 mg | | | | | 18 4:44 | | | | | | PM PST | | | | +-------+ +-------+---+---+ | Given | 08/22/19 | 10 mg | | | | | 18 12:27 | | | | | | PM PST | | | | +-------+ +-------+---+---+ + +---+ | | | + +---+ | naloxone (NARCAN) 0.4 mg/mL | | | injection 0.04 mg 0.04 mg, | | | Intravenous, PRN, Apnea, | | | Decreased Responsiveness, | | | Starting Sat08/16/17 at 1508, mix | | | 0.4mg naloxone with 9 ml normal | | | saline in syringe and give 0.04 | | | mg = 1 ml initial dose. Give | | | every 2 minutes as needed | | | Initiate emergency response per | | | facility policy and contact | | | provider transmission rebuilder, | | + +---+ | | | + +---+ | ondansetron (ZOFRAN ODT) | | | disintegrating tablet 4 mg 4 mg, | | | Oral, EVERY 6 HOURS PRN, Nausea, | | | Vomiting, Starting Sat08/16/17 at | | | 1843, First line agent, | | | Post-op/Phase II | | + +---+ | | | + +---+ | ondansetron (ZOFRAN) injection | | | 4 mg 4 mg, Intravenous, EVERY 6 | | | HOURS PRN, Nausea, Vomiting, | | | Starting 08/16/17 at 1843, | | | First line agent Use PO option | | | unless NPO status or unable to | | | tolerate., Post-op/Phase II | | + +---+ | | | + +---+ | oxyCODONE (ROXICODONE) tablet | | | 5-10 mg 5-10 mg, Oral, EVERY 3 | | | HOURS PRN, Pain, Starting Fri | | | 08/16/17 at 1843, First dose must | | | be the lowest dose, can titrate | | | to effective dose by repeat of | | | lowest dose every 60 minutes prn | | | pain, may not exceed maximum dose | | | ordered per interval. Use Pasero | | | Sedation Scale., Post-op/Phase | | | II | | + +---+ | | | + +---+ | oxyCODONE-acetaminophen | | | (PERCOCET) 5-325 mg per tablet | | | 1-2 tablet 1-2 tablet, Oral, | | | EVERY 4 HOURS PRN, Pain, Starting | | | 1/5/18 at 1843 | | + +---+ | | | + +---+ + +-------+ +-------+---+---+ | spironolactone (ALDACTONE) | Given | 08/23/19 | 50 mg | | | | tablet 50 mg 50 mg, Oral, DAILY, | | 18 8:33 | | | | | First dose on Sat08/16/17 at | | AM PST | | | | | 1330, Hazardous: Use appropriate | | | | | | | handling precautions., | | | | | | + +-------+ +-------+---+---+ +-------+ +-------+---+---+ | Given | 08/22/19 | 50 mg | | | | | 18 8:43 | | | | | | AM PST | | | | +-------+ +-------+---+---+ | Given | 08/21/19 | 50 mg | | | | | 18 10:02 | | | | | | AM PST | | | | +-------+ +-------+---+---+ +---+---+ | | | +---+---+ + +-------+ +--------+---+---+ | tamsulosin (FLOMAX) capsule 0.4 | Given | 08/23/19 | 0.4 mg | | | | mg 0.4 mg, Oral, DAILY AFTER | | 18 8:33 | | | | | BREAKFAST, First dose on Mon | | AM PST | | | | | 08/19/17 at 0900, May open capsule | | | | | | | and sprinkle over acidic soft | | | | | | | food (applesauce, yogurt) or in a | | | | | | | small quantity of acidic fruit | | | | | | | juice (orange, grape). Do not | | | | | | | crush, chew or dissolve | | | | | | | granules., | | | | | | + +-------+ +--------+---+---+ +-------+ +--------+---+---+ | Given | 08/22/19 | 0.4 mg | | | | | 18 8:43 | | | | | | AM PST | | | | +-------+ +--------+---+---+ | Given | 08/21/19 | 0.4 mg | | | | | 18 10:02 | | | | | | AM PST | | | | +-------+ +--------+---+---+ +---+---+ | | | +---+---+ + +-------+ +-------+---+---+ | torsemide (DEMADEX) tablet 20 | Given | 08/23/19 | 20 mg | | | | mg 20 mg, Oral, DAILY, First | | 18 8:34 | | | | | dose on Sat08/16/17 at 1330 | | AM PST | | | | + +-------+ +-------+---+---+ +-------+ +-------+---+---+ | Given | 08/22/19 | 20 mg | | | | | 18 8:43 | | | | | | AM PST | | | | +-------+ +-------+---+---+ | Given | 08/21/19 | 20 mg | | | | | 18 10:01 | | | | | | AM PST | | | | +-------+ +-------+---+---+ +---+---+ | | | +---+---+ documented in this encounter
--- OUTSIDE RECORDS SUMMARY | ~2019-12-19 | XMS | Encounter Summary ---
Demographics + + + | Address | [address] [address] | | | [place] [address] | + + + | Home Phone | | + + + | Preferred Language | Unknown | + + + | Marital Status | Single | + + + | Faith Affiliation | 1077 | + + + | Race | Unknown | + + + | Ethnic Group | Unknown | + + + Author + + + | Author | [facility] | | | and [place] | + + + | Organization | [facility] | | | [...] Team Providers + +------+ + | Care Roller Coaster Engineer Name | Role | Phone | + +------+ + | Sarah Carroll MD | PCP | | + +------+ + Encounter Details +--------+ + + + + | Date | Type | Department | Care Team | Description | +--------+ + + + + | 12/13/ | Virtual | [facility] | Jewel Ulloa MD | Chronic kidney | | 2019 | Office | NEPHROLOGY [place] | [address] [place] | disease, stage 3 | | | Visit | [address] | [address] [place], [place] | ([facility]) (Primary Dx); | | | | [address] | [id number] | Anemia of chronic | | | | [place], [place] | | renal failure, stage | | | | [address] | | 3 (moderate) ([facility]); | | | | [phone] | | Persistent | | | | | | proteinuria; | | | | | | Bilateral leg edema; | | | | | | Hyperuricemia; | | | | | | Class 3 obesity with | | | | | | alveolar | | | | | | hypoventilation | | | | | | without serious | | | | | | comorbidity with | | | | | | body mass index | | | | | | (BMI) of 50.0 to | | | | | | 59.9 in adult ([facility]); | | | | | | Essential | | | | | | hypertension with | | | | | | goal blood pressure | | | | | | less than 130/80 | +--------+ + + + + Social History + +-------+ +--------+ + | Tobacco Use | Types | Packs/Day | Years | Date | | | | | Used | | + +-------+ +--------+ + | Former Smoker | | | | Quit: 2015 | + +-------+ +--------+ + + +------+---+--------+ | Smokeless Tobacco: | Chew | | Quit: | | Former User | | | 2016 | + +------+---+--------+ + + +---------+ + | Alcohol Use [...] + + documented as of this encounter Functional Status + + + [...] + + documented as of this encounter Patient Instructions Patient Instructions Jewel Ulloa MD - 12/14/2019 3:20 PM PDTDiscussions/Recommendations : I discussed today with Mr. Latham the meaning of his CKD and the interaction of that wi th his hypertension. I stressed the importance of keeping his BP controlled and avoiding getting dehydrated i f we are to have a chance at helping preserve his renal function. He showed good understand ing. I gave him instructions on how to chart his blood pressure in the appropriate manner at home. He is to call us if they fall outside of the optimal provided range. He will bring his sphygmomanometer for validation once a year. He will strictly abide by a low salt & low purine diet. He will avoid all kinds of NSAIDs for analgesia. Also: I will not change any of his vasoactive meds today. He will report back to me his home weights & BP readings if they fall outside of the opt imal provided range. At that time, I will decide whether any change to his vasoactive regime n is warranted. I sent him for a repeat RFP, UTPCR in 6 months. I advised him to exercise regularly but safely & to try to lose weight methodically; He voiced good understanding. I asked him to elevate his legs for 1 hour once a day. He knows that he still needs to b e active and ambulatory carefully as possible. He will F/U with your office regularly. And as your office has been managing his anemia, iron deficiency: I will not change substantially anything related to those at this time. He will have a RFP, CBC, uric acid, iPTH, Urine total ipjrorz-ge-faeeleopnd ratio before he comes back in 12 months. documented in this encounter Progress Notes Jewel Ulloa MD - 12/14/2019 3:20 PM PDT Subjective: Patient ID: Aaron Latham is a 59 y.o. male. Participants: Patient Participant verbally confirmed the choice to initiate care by, and consents to receive care by Telephone. CC: None HPI: Denies any dizziness, cp, sob, abd pain, n/v, diarrhea. Current Outpatient Medications: acetaminophen (TYLENOL) 500 mg tablet, Take 650 mg by mouth every 6 hours as needed fo r Pain., Disp: , Rfl: allopurinol (ZYLOPRIM) 300 mg tablet, take 1 tablet by mouth twice daily, Disp: , Rfl: 0 atorvaSTATin (LIPITOR) 80 MG tablet, Take 80 mg by mouth nightly., Disp: , Rfl: carvedilol (COREG) 6.25 mg tablet, Take 6.25 mg by mouth 2 times daily (with breakfast & dinner)., Disp: , Rfl: Cholecalciferol (VITAMIN D-3) 2000 units CAPS, Take 2,000 Units by mouth Daily., Disp: , Rfl: cyanocobalamin (VITAMIN B-12) 1000 MCG tablet, Take 1,000 mcg by mouth Daily., Disp: , Rfl: ferrous sulfate 325 mg tablet, Take 325 mg by mouth 3 times daily (with meals)., Disp: , Rfl: fish oil 1,000 mg capsule, Take 1,000 mg by mouth 3 times daily., Disp: , Rfl: hydrALAZINE (APRESOLINE) 50 MG tablet, Take 50 mg by mouth 3 times daily., Disp: , Rfl : levothyroxine (SYNTHROID) 50 mcg tablet, Take 50 mcg by mouth every morning (before br eakfast)., Disp: , Rfl: magnesium oxide (MAG-OX) 400 mg tablet, Take 400 mg by mouth Daily., Disp: , Rfl: 0 torsemide (DEMADEX) 10 mg tablet, Take 20 mg by mouth Daily., Disp: , Rfl: 0 warfarin (COUMADIN) 5 mg tablet, Take 5-10 mg by mouth Daily., Disp: , Rfl: Lab Results Component Value Date HGB 12.6 (A) 12/10/2019 HGB 13.0 (L) 05/04/2019 HCT 38.9 (L) 05/04/2019 NA 134 12/10/2019 K 4.7 12/10/2019 CL 99 12/10/2019 CO2 26 12/10/2019 BUN 31 (A) 12/10/2019 CREA 1.96 (A) 12/10/2019 CALCIUM 9.2 12/10/2019 CALCIUM 8.9 05/04/2019 ALBUMIN 4.0 12/10/2019 EGFR 35.0 (A) 12/10/2019 PTH 59.34 10/16/2018 LABPROT 293.0 (A) 12/10/2019 Assessment & Plan Assessment: Mr. Latham is a 59 y.o. male patient with stage III CKD on a background of hypertension. T he CKD preceded his nephrectomy. 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 In early 12/2018, he had a stage 2 DANNY following a colonoscopy & several days of diarrhea. Recovered with hydration. RENAL FUNCTION: Relatively stable GFR at this time vs 01/2019 (adjusted to hi s BSA, his MDRD eGFR is much higher than reported on labs)* BLOOD PRESSURE: Reports it ok at home BLOOD SUGAR: Reports it okay ELECTROLYTES: His potassium is often at the upper limit of normal ANEMIA: Mild; being managed thru your office VITAMIN D: To be checked thru your office PARATHYROID HORMONE: ok URIC ACID: hyperuricemia is better PROTEINURIA: mild URINALYSIS: No UTI or hematuria VOLUME STATUS: Euvolumic. Discussions/Recommendations: I discussed today with Mr. Latham the meaning of his CKD and the interaction of that wi th his hypertension. I stressed the importance of keeping his BP controlled and avoiding getting dehydrated i f we are to have a chance at helping preserve his renal function. He showed good understand ing. I gave him instructions on how to chart his blood pressure in the appropriate manner at home. He is to call us if they fall outside of the optimal provided range. He will bring his sphygmomanometer for validation once a year. He will strictly abide by a low salt & low purine diet. He will avoid all kinds of NSAIDs for analgesia. Also: I will not change any of his vasoactive meds today. (I am unable to ramp up his RAAS blockade because of history of his K at the upper limit of normal + the early 12/2018 DANNY + his proteinuria is very mild) He will report back to me his home weights & BP readings if they fall outside of the opt imal provided range. At that time, I will decide whether any change to his vasoactive regime n is warranted. I sent him for a repeat RFP, UTPCR in 6 months. I advised him to exercise regularly but safely & to try to lose weight methodically; He voiced good understanding. I asked him to elevate his legs for 1 hour once a day. He knows that he still needs to b e active and ambulatory carefully as possible. He will F/U with your office regularly. And as your office has been managing his anemia, iron deficiency: I will not change substantially anything related to those at this time. He will have a RFP, CBC, uric acid, iPTH, Urine total ycfijuy-lf-bucljqzftj ratio before he comes back in 12 months. Clinical discussion length: 11-20 min ([id number]) Patient has not been seen in office within the past 7 days, and outcome of this call is not to recommend soonest available office visit. Jewel Ulloa MD documented in this enco unter Plan of Treatment +--------+---------+ + + + | Date | Type | Specialty | Care Team | Description | +--------+---------+ + + + | 03/17/ | Office | Cardiology | Lorraine Clifton DO | | | 2019 | Visit | | [address] | | | | | | [place] | | | | | | [address] | | | | | | | | +--------+---------+ + + + documented as of this encounter Visit Diagnoses + + | Diagnosis | + + | Chronic kidney disease, stage 3 (HCC) - Primary | + + | Anemia of chronic renal failure, stage 3 (moderate) (HCC) | + + | Persistent proteinuria Proteinuria | + + | Bilateral leg edema Edema | + + | Hyperuricemia Other abnormal blood chemistry | + + | Class 3 obesity with alveolar hypoventilation without serious comorbidity with body | | mass index (BMI) of 50.0 to 59.9 in adult (HCC) | + + | Essential hypertension with goal blood pressure less than 130/80 | + + documented in this encounter"
--- OUTSIDE RECORDS SUMMARY | ~2019-12-19 | XMS | Encounter Summary ---
Demographics + + + | Address | [address] | | | [place] [address] | + + + | Home Phone | | + + + | Preferred Language | Unknown | + + + | Marital Status | Single | + + + | Judaism Affiliation | LDS | + + + | Race | White | + + + | Ethnic Group | Not or | + + + Author + + + | Author | [facility] | + + + | Organization | [facility] | + + + | Address | Unknown | + + + | Phone | Unavailable | + + + Support + + + + + | Name | Relationship | Address | Phone | + + + + + | Toby Latham | ANNA | [address] | | | | | [place] | | | | | [address] | | + + + + + Care Team Providers + +------+ + | Care Die Finisher Name | Role | Phone | + +------+ + | No Pcp Per Patient | PCP | Unavailable | + +------+ + Reason for Referral PROC - Dept/Practice Procedure (Routine) + +--------+ + + + + | Status | Reason | Specialty | Diagnoses / | Referred By | Referred To | | | | | Procedures | Contact | Contact | + +--------+ + + + + | Canceled | | Gastroenterol | Diagnoses | Aru, | En[place]vedt, | | | | ogy | Villous | MD Padilla | Milad Harris MD | | | | | adenoma of | [address] | [address] | | | | | colon | [facility] | [facility] | | | | | Procedures | Rd | Rd | | | | | CONSULT TO | [place], [place] | [place], [place] | | | | | GASTROENTERO | [address] | [address] | | | | | LOGY | Phone: | Phone: | | | | | CONSULT TO | [phone] | [phone] | | | | | GASTROENTERO | Fax: | Fax: | | | | | LOGY | [phone] | [phone] | + +--------+ + + + + PROC - Dept/Practice Procedure (Routine) + +--------+ + + + + | Status | Reason | Specialty | Diagnoses / | Referred By | Referred To | | | | | Procedures | Contact | Contact | + +--------+ + + + + | Canceled | | Gastroenterol | Diagnoses | Tsikitis, | Gas Endo | | | | ogy | Villous | [place], | M[address] | | | | | adenoma of | MD [address] | | | | | colon | [address] | Jay | | | | | Procedures | [place], [place] | [place], [address] | | | | | CONSULT TO | [address] | floor | | | | | GI PROCEDURE | Phone: | [place], [place] | | | | | UNIT: | [phone] | [address] | | | | | COLONOSCOPY | Fax: | Phone: | | | | | | [phone] | [phone] | | | | | | | Fax: | | | | | | | [phone] | + +--------+ + + + + Reason for Visit Consultation (Routine) +--------+--------+ + + + + | Status | Reason | Specialty | Diagnoses / | Referred By | Referred To | | | | | Procedures | Contact | Contact | +--------+--------+ + + + + | Closed | | Surgery | Diagnoses | Carroll, | Gs | | | | | Tubular | Lohith | Colorectal | | | | | adenoma of | MD Tala | [address] | | | | | colon | [address] | [address] | | | | | | Joel Castaneda | Mailcode: | | | | | | [place] | [facility] | | | | | | [place] [address] | [facility] and | | | | | | Phone: | Healing, | | | | | | [phone] | [address] | | | | | | Fax: | [place], [place] | | | | | | [phone] | [address] | | | | | | | Phone: | | | | | | | [phone] | | | | | | | Fax: | | | | | | | [phone] | +--------+--------+ + + + + Encounter Details +--------+---------+ + + + | Date | Type | Department | Care Team | Description | +--------+---------+ + + + | 02/05/ | Office | Digestive Health | Tsikitis, | Villous adenoma of | | 2019 | Visit | [place] [facility] [address] | MD Justyn [address] | colon (Primary Dx) | | | | [address] | [address] | | | | | Mailcode: Center | [facility] [place] | | | | | for Health and | [address] | | | | | Healing, [address] | [phone] | | | | | [place], [place] | | | | | | [address] | | | | | | [phone] | | | +--------+---------+ + + + [...] Comments | + + +---------+ + | Not Currently | | | | + + +---------+ [...] + + + | Blood Pressure | 143/79 | 02/05/2019 10:29 AM | | | | | PDT | | + + + + + | Pulse | 71 | 02/05/2019 10:29 AM | | | | | PDT | | + + + + + | Temperature | 36.7 C (98.1 F) | 02/05/2019 10:29 AM | | | | | PDT | | + + + + + | Respiratory Rate | 16 | 02/05/2019 10:29 AM | | | | | PDT | | + + + + + | Oxygen Saturation | 97% | 02/05/2019 10:29 AM | | | | | PDT | | + + + + + | Inhaled Oxygen | - | - | | | Concentration | | | | + + + + + | Weight | 157.9 kg (348 lb 3.2 | 02/05/2019 10:29 AM | | | | oz) | PDT | | + + + + + | Height | 180.3 cm (5' 11") | 02/05/2019 10:29 AM | | | | | PDT | | + + + + + | Body Mass Index | 48.56 | 02/05/2019 10:29 AM | | | | | PDT | | + + + + + documented in this encounter Progress Notes Padilla Ko MD - 02/05/2019 11:00 AM PDT COLORECTAL SURGERY NEW PATIENT CONSULTATION DATE OF VISIT: 02/04/2019 REFERRING PROVIDER: Sarah Carroll MD REASON FOR CONSULTATION: tubular adenoma of colon HPI: Aaron Latham is a 58 y.o. male with morbid obesity, CKD stage III, DANNY, HTN, persistent p roteinuria, anemia of chronic renal failure stage III, on CPAP for SUZI and history of sigmoi d colon cancer and s/p left nephrectomy and resection of sigmoid carcinoma in 2018. He prese nts today for tubular adenoma of colon seen on colonoscopy. Interim: Today, since his referral was placed, Aaron reported he has not had any blood in his stool a nd further denies abdominal pain. He has a history of sigmoid colon cancer diagnosed on Col onoscopy in June 2017. He underwent LAR and hernia repair 08/[address] Bowles. He th en underwent surveillance colonoscopy this year which revealed a villous adenoma of the cecu m which was not amenable to resection. He endorses losing 4 lbs over the past 3 weeks. Den ies fevers, chills. Lung cancer in father. He has a negative history of colon cancer in his family. He denies night sweats, abdominal pain, constipation. Of note he has a history of a Nephrectomy in 05/2017 and has CKD stage III. Uses CPAP for SUZI nightly. He also has a history of HFpEF with improving EF recently (60%). Medical history per Note of Dr. Carroll from [facility]: 11/18/18: Seen Dr. Cohen for colonoscopy consult and scheduled for procedure at the hospital given his multiple comorbidities. 12/11/18: Onset of right lower back pain after exiting his truck awkwardly. Seen at ED of [facility] for scheduled colonoscopy. Incidentally also seen for right lower back lori n after exiting his truck awkwardly. Normal CT scan and normal blood work with exception of elevated creatinine of 2.7 (s/p left nephrectomy). 12/13/18: seen Dr. Carroll as his symptoms of heartburn and nausea persisted. She treated him w ith Ondansetron for gastritis and switched to colchicine 0.6 tablets for hyperemia. 12/11/18: Colonoscopy showed tubular adenoma with focal high grade dysplasia of splenic flex ure, Villous adenoma cecum, mid ascending colon hyperplastic polyp and Hyperplastic rectal p olyp. Widely patent coloproctectomy. 01/05/19: Dr. Cohen at [facility] and recommended referral to [facility] for surgical ma nagement with industrial manufacturing technician and hand clerical verifier for tubular adenoma of cecum with underlying CO PD and CHF. 01/08/19: follow up with Dr. Carroll and referred to GI Surgery Dr. Thompson at [facility] REVIEW OF SYSTEMS: As per HPI, otherwise negative. 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 Chronic kidney disease, stage 3 (HCC) s/p left nephrectomy Congestive heart failure (CHF) (HCC) 02/2016 Essential hypertension Heart failure (HCC) heart failure with presevered ejection fraction History of colon cancer s/p resection in 2017 Hyperlipidemia Iron deficiency anemia Metabolic syndrome Morbid obesity with BMI of 40.0-44.9, adult (HCC) SUZI (obstructive sleep apnea) on cpap Paroxysmal atrial fibrillation (HCC) Prediabetes Subclinical hypothyroidism Vitamin B12 deficiency Vitamin D deficiency PSH: Past Surgical History Procedure Laterality Date Colectomy 08/16/2017 Endoscopic carpal tunnel release of right wrist Right ulnar nerve release of right elbow 02/27/18 Left radical nephrectomy with hilar node dissection 06/11/2018 Colonoscopy tubular adenoma with focal high grade dysplasia of splenic flexure, villous adenoma cecum, mid ascending colon hyperplastic polyp and hyperplastic rectal polyp. widely patent coloproctectomy. 12/11/2018 MEDICATIONS: Current Outpatient Medications on File Prior to Visit Medication Sig Dispense Refill allopurinol 300 mg oral tablet Take 150 mg by mouth once daily. atorvastatin 80 mg oral tablet Take 80 mg by mouth once daily. calcium-vitamin D 500 mg(1,250mg) -200 unit oral tablet Take 1 tablet by mouth three ti mes daily. carvedilol 6.25 mg oral tablet Take 6.25 mg by mouth two times daily. Administer with f ood. colchicine 0.6 mg oral tablet Take 0.6 mg by mouth two times daily. cyanocobalamin 1,000 mcg/mL injection solution Inject 1,000 mcg under the skin (SUBC) e very thirty days. ferrous sulfate 325 mg (65 mg iron) oral tablet Take 325 mg by mouth once daily. hydrALAZINE 50 mg oral tablet Take 50 mg by mouth four times daily. levothyroxine 25 mcg oral tablet Take 25 mcg by mouth before breakfast. magnesium oxide 400 mg oral tablet Take 400 mg by mouth once daily. torsemide 10 mg oral tablet Take 10 mg by mouth once daily. warfarin 5 mg oral tablet Take 5 mg by mouth once daily. No current facility-administered medications on file prior to visit. ALLERGIES: Allergies No Known Allergies FMH: Lung cancer father, No colorectal cancer FHx SHX: - EtOH: none. Former social - Cigarettes: none. Former snus (quit 3 years ago) - Drugs: None PHYSICAL EXAMINATION: BP 143/79 | Pulse 71 | Temp 36.7 C (98.1 F) (Oral) | Resp 16 | Ht 1.803 m (5' 11") | Wt 157.9 kg (348 lb 3.2 oz) | SpO2 97% | BMI 48.56 kg/m | BSA 2.81 m GENERAL: Well nourished, well developed male in no acute distress, alert and oriented x 3 HEENT: Grossly within normal limits. NECK: Supple, no adenopathy, full range of motion. SKIN: No visible rashes. CARDIOVASCULAR: Extremities warm and well perfused. RESPIRATORY: Labored breathing on RA ABDOMEN: Soft, very obese and rotund, midline laparotomy scar well healed. /RECTAL: Deferred. EXTREMITIES: No edema, full range of motion. NEUROLOGIC: Moves all extremities spontaneously. No apparent neurologic deficits. Cranial nerves 2-12 grossly intact. ASSESSMENT/PLAN: A(n) 58 y.o. male with morbid obesity, CKD stage III, HTN, persistent proteinuria, HFpEF on CPAP for SUZI and history of sigmoid colon cancer s/p LAR 08/2017 and s/p left nephrectomy (p ath angiomyolipoma) in 2017. He was referred for resection of villous adenoma so we will rod ce referral to GI for endoscopic intervention. - Referral placed to GI for Endoscopic Intervention - Referral placed to MD CHAVEZ Follow up with me LEONARDA Mcgraw, MS3 [facility], [facility] [employer] Padilla Ko MD General Surgery, PGY-1 Associated attestation - Justyn Cabral MD - 02/09/2019 2:02 PM PDTI saw the patient and reviewed and verified all information documented by the resident, and made modificatio ns to such information, when appropriate. I personally performed the exam documented in this encounter Plan of Treatment +--------+---------+ + + + | Date | Type | Specialty | Care Team | Description | +--------+---------+ + + + | 01/20/ | Office | Orthopedics | Richard Harvey, | | 2019 | Visit | | [address] [facility] | | | | | | [address] | | | | | | [place], [place] | | | | | | [address] | | | | | | [phone] | | | | | | | | +--------+---------+ + + + documented as of this encounter Visit Diagnoses + + | Diagnosis | + + | Villous adenoma of colon - Primary Benign neoplasm of colon | + + documented in this encounter
--- OUTSIDE RECORDS SUMMARY | ~2019-12-19 | XMS | Encounter Summary ---
Demographics + + + | Address | [address] [address] | | | [place] [address] | + + + | Home Phone | | + + + | Preferred Language | Unknown | + + + | Marital Status | Single | + + + | Synagogue Affiliation | 1077 | + + + | Race | Unknown | + + + | Ethnic Group | Unknown | + + + Author + + + | Author | [facility] | | | and [place] | + + + | Organization | [facility] | | | and [...] Team Providers + +------+ + | Care Shorthand Teacher Name | Role | Phone | + +------+ + | Sarah Carroll MD | PCP | | + +------+ + Encounter Details +--------+ + + + + | Date | Type | Department | Care Team | Description | +--------+ + + + + | 03/05/ | Imaging | [facility] | Provider, | | | 2019 | Exam | [facility] | MD Kaitlin [address] | | | | | IMAGING [address] | [address] | | | | | [address] | [place] [address] | | | | | [place] [address] | | | | | | [phone] | | | +--------+ + + + [...] [place] | | | | | | [address] | | | | | | | | +--------+---------+ + + + documented as of this encounter Procedures + +--------+ + + + | Procedure Name | Priori | Date/Time | Associated Diagnosis | Comments | | | ty | | | | + +--------+ + + + | XR LUMBAR SPINE 4 + | Routin | 03/03/2019 | | Results for this | | VW | e | 12:00 AM | | procedure are in the | | | | PDT | | results section. | + +--------+ + + + documented in this encounter Results XR Lumbar Spine 4 + Vw (03/03/2019 12:00 AM PDT) + + | Specimen | + + | | + + + + + | Narrative | Performed At | + + + | External films for comparison only | [facility] | | | | | No results will be in the chart. | | + + + + +---------+ + + | Performing | Address | City/State/Zipcode | Phone Number | | Organization | | | | + +---------+ + + | [facility] | | | | + +---------+ + + documented in this encounter Visit Diagnoses Not on filedocumented in this encounter"
--- OUTSIDE RECORDS SUMMARY | ~2019-12-19 | XMS | Encounter Summary ---
Demographics + + + | Address | [address] [address] | | | [place] [address] | + + + | Home Phone | | + + + | Preferred Language | Unknown | + + + | Marital Status | Single | + + + | Latter-Day Affiliation | [id number] | + + + | Race | Unknown | + + + | Ethnic Group | Unknown | + + + Author + + + | Author | [facility] | | | and [place] | + + + | Organization | [facility] | | | [...] Team Providers + +------+ + | [employer] Developer Name | Role | Phone | + +------+ + | Sarah Carroll MD | PCP | | + +------+ + Reason for Visit + + + | Reason | Comments | + + + | Medication Follow-up | 6 week | + + + Evaluate & Treat (Routine) + +--------+ + + + + | Status | Reason | Specialty | Diagnoses / | Referred By | Referred To | | | | | Procedures | Contact | Contact | + +--------+ + + + + | Authorized | | Family Nurse | Diagnoses | [place], | [place] | | | | Practitioner | Chronic | Sarah Gallegos MD | Ileana Gonzalez, | | | | / Cardiology | combined | [address] | [facility] [address] [address] | | | | | systolic | [address] | [place] | | | | | (congestive) | [place] | [address] | | | | | and | [place] [address] | [place], [place] | | | | | diastolic | Phone: | [phone] Phone: | | | | | (congestive) | [phone] | [phone] | | | | | heart | Fax: | Fax: | | | | | failure | [phone] | [phone] | | | | | (HCC) 6 | | | | | | | month f/u | | | | | | | Procedures | | | | | | | [place] OFFICE | | | | | | | OUTPATIENT | | | | | | | VISIT 40 | | | | | | | MINUTES | | | | | | | OFFICE VISIT | | | | | | | REGULAR | | | + +--------+ + + + + Encounter Details +--------+---------+ + + + | Date | Type | Department | Care Team | Description | +--------+---------+ + + + | 08/17/ | Office | [facility] | Ileana Henson | Paroxysmal atrial | | 2019 | Visit | CARDIOLOGY [place] | [address] | fibrillation (HCC) | | | | [address] | [place] [address] | (Primary Dx); | | | | [address] | [place] [address] | Chronic combined | | | | [place] | [phone] | systolic and | | | | [id number] | | diastolic congestive | | | | [phone] | | heart failure | | | | | | (HCC); Essential | | | | | | hypertension with | | | | | | goal blood pressure | | | | | | less than 130/80; | | | | | | Mixed | | | | | | hyperlipidemia; | | | | | | Bilateral leg edema; | | | | | | Ascending aorta | | | | | | dilatation (HCC); | | | | | | Chronic kidney | | | | | | disease, stage 3 | | | | | | (HCC); History of | | | | | | colon cancer; Class | | | | | | 3 obesity with | | | | | | alveolar | | | | | | hypoventilation | | | | | | without serious | | | | | | comorbidity with | | | | | | body mass index | | | | | | (BMI) of 50.0 to | | | | | | 59.9 in adult (HCC); | | | | | | Obstructive sleep | | | | | | apnea on CPAP; | | | | | | History of left | | | | | | nephrectomy | +--------+---------+ + + + Social History + +-------+ +--------+------+ | Tobacco Use | Types | Packs/Day | Years | Date | | | | | Used | | + +-------+ +--------+------+ | Former Smoker | | | | | + +-------+ +--------+------+ + +------+---+---+ | Smokeless Tobacco: | Chew | | | | Former User | | | | + +------+---+---+ + + | Comments: quit in 2014 | + + + + +---------+ + | Alcohol Use [...] + + + | Blood Pressure | 124/62 | 08/17/2019 2:47 PM | | | | | PST | | + + + + + | Pulse | 88 | 08/17/2019 2:47 PM | | | | | PST | | + + + + + | Temperature | - | - | | + + + + + | Respiratory Rate | - | - | | + + + + + | Oxygen Saturation | 94% | 08/17/2019 2:47 PM | | | | | PST | | + + + + + | Inhaled Oxygen | - | - | | | Concentration | | | | + + + + + | Weight | 166.4 kg (366 lb | 08/17/2019 2:47 PM | | | | 12.8 oz) | PST | | + + + + + | Height | 180.3 cm (5' 11") | 08/17/2019 2:47 PM | | | | | PST | | + + + + + | Body Mass Index | 51.16 | 08/17/2019 2:47 PM | | | | | PST | [...] of this encounter Patient Instructions Patient Instructions Ileana Henson FNP - 08/17/2019 3:00 PM PSTPlease bring your m edication bottles to all clinic visits to help us maintain safe care for you, and ensure acc urate medication record I made no changes to medications See me back in 6 months documented in this encounter Progress Notes Ileana Henson FNP - 08/17/2019 3:00 PM PSTFormatting of this note might be differe nt from the original. Date of visit: 08/18/2019 Primary Care Physician: Sarah Carroll MD CHIEF COMPLAINT: Chief Complaint Patient presents with Medication Follow-up 6 week HISTORY OF PRESENT ILLNESS: Mr. Aaron Latham is a 59 -year-old man who is here today to follow up on Echo results, a nd visit delayed due to admission at [facility] for GI bleeding. Today I reviewed all available medical information available to me in electronic medical re cord, as well as from external sources. He has a history of heart failure, persistent atrial fibrillation, hypertension, mixed hyperlipidemia, chronic kidney disease stage II and renal problems noted to be EAMON sensiti ve, colon cancer, renal cancer, sleep apnea on CPAP, and chronic anemia He is anticoagulated on Coumadin for his NCG3GF0 2 VASC score of 2 which is managed by [facility]. He was hospitalized in July 2017 at [facility] for acute GI bleeding, where a mass was found on his colon and his kidney,which was colonic neoplasm, and biopsies revealed dif ferentiated invasive colonic adenocarcinoma, as well as a villous adenoma and tubulovillous adenoma in the rectosigmoid area. A CT scan of his abdomen and pelvis also found 2 masses o n his left kidney . He had colorectal surgery 08/16/2017 by , colorectal surgeon in [place], with low anterior resection with open approach, did not require any Chemo or radiation, He also followed up Dr. 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 They continue to monitor his right kidney for angiomyolipoma. His current and previous testing and procedures are detailed below. Since I saw him last, he had a colonoscopy done at [facility] 07/01/2019, and developed bleedin g afterwards with blood and clot in stool. He went to the emergency room at [facility] on July 12 and was transferred to [facility]. He had a repeat endoscopy performed 07/13/2019, which showed no source of active bleeding. His Coumadin has been resumed, and his INR was therapeutic again at the end of July, a nd will be getting his next INR performed tomorrow. He reports he has had no further bleedi ng since, and no medications were changed, and he will be getting a repeat colonoscopy in 6 months. He continues to be followed by Dr. Ulloa for his chronic kidney disease, and last seen by him in 06/15/2019 , and note reviewed, and no changes to medications but documented ongoing d ecline in renal function.. He is also seen by Dr. Malhotra for back pain and peripheral neuropathy with foot drop, and last seen by him 03/10/2019, and had referral Neurology and rheumatology, and seen by LUIS FERNANDO summers 06/10/2019 for neuropathy and gout He reports today that overall he has been stable, though troubled by gout, joint stiffness , and weight increased again. His lowest weight was 324 pounds after he had been hospitaliz ed, but has struggled to remain less than 350 pounds since then, was 366 pounds today. He continues to have some mild lower extremity edema, but denies any chest pains palpita tions, dizziness, or syncope. He reports he has mild dyspnea with more extreme exertion, no t at rest, and he attributes this to weight gain and being deconditioned. He denies any signs or symptoms of stroke or TIA. His mother has also had more health issues, which has been a concern for him. REVIEW OF SYSTEMS: Negative except for pertinent items noted in HPI. Constitutional: Reports ongoing mild fatigue . Denies unexplained weight loss. Appetite i s good. Weight is increasing, weighed 357 lb 10/2018/ . Denies night sweats fevers or chil ls HENT: Denies nosebleeds. Denies hearing problems. Denies dysphagia Eyes: Denies visual disturbance or double vision. Denies history of cataracts or glaucoma or macular degeneration. Respiratory/Sleep:: Sleep apnea with nightly CPAP use, followed by Dr. Hitchcock. Denies coug h and dyspnea. Denies hemoptysis or excessive sputum production. Denies orthopnea, or PND . Cardiovascular: Mild Intermittent lower extremity edema . Denies chest pain, palpitations . Denies history of rheumatic fever. Denies claudication . Gastrointestinal:Hx GI Bleed ,05/2017, new Dx colon cancer with surgery 08/2017, . occasio nal . Symptoms GERD . Recent blood in stool post colonoscopy in June, see HPI Denies nausea, vomiting, abdominal pain . Genitourinary: left nephrectomy 06/11/2018 for renal mass, later found to be angiomyolipom a,,followed by Dr. Cross in [place] Denies hematuria. Denies history of benign prostatic hypertrophy Musculoskeletal: Arthritis to fingers, ongoing low back pain, knee pain. Gout. Denies myalg ias. Skin: Denies color change. Denies rash or lesions Neurological: Numbness to hands and wrists , right carpel tunnel surgery 02/2018. Denies history of stroke/Transient ischemic attack.Denies history of seizures. Denies dizziness, s yncope Denies focal motor or sensory deficits Hematological: Does not bruise/bleed easily. history of cancer: colon-surgery 08/2017, mckenna an margins, no chemo or radiation. Endocrine: Denies diabetes and thyroid disease. Denies excessive thirst or hunger. Psychiatric/Behavioral: Reports some learning and concentration difficulties, can have low frustration threshold Vaccines: Current on 2019 flu vaccine. Current on pneumonia vaccine. Habits/Social : Denies history of smoking. Quit chewing tobacco . Denies EtOH use. Drinks 2-3 sodas daily . Denies recreational or illicit drug use. Exercises sporadically . 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 Lives with his mom, and older brother Outpatient Medications Prior to Visit Medication Sig Dispense Refill acetaminophen (TYLENOL) 500 mg tablet Take 325 mg by mouth every 4 hours as needed for Pain. allopurinol (ZYLOPRIM) 300 mg tablet take 1 tablet by mouth twice daily 0 atorvaSTATin (LIPITOR) 80 MG tablet Take 80 mg by mouth nightly. carvedilol (COREG) 6.25 mg tablet Take 6.25 mg by mouth 2 times daily (with breakfast & dinner). Cholecalciferol (VITAMIN D-3) 2000 units CAPS Take 2,000 Units by mouth Daily. cyanocobalamin (VITAMIN B-12) 1000 MCG tablet Take 1,000 mcg by mouth Daily. ferrous sulfate 325 mg tablet Take 325 mg by mouth 3 times daily (with meals). hydrALAZINE (APRESOLINE) 50 MG tablet Take 50 mg by mouth 3 times daily. levothyroxine (SYNTHROID) 50 mcg tablet Take 50 mcg by mouth every morning (before aman kfast). magnesium oxide (MAG-OX) 400 mg tablet Take 400 mg by mouth Daily. 0 torsemide (DEMADEX) 10 mg tablet Take 20 mg by mouth Daily. 0 warfarin (COUMADIN) 5 mg tablet Take 5-10 mg by mouth Daily. No facility-administered medications prior to visit. PHYSICAL EXAM: Wt Readings from Last 3 Encounters: 08/17/19 (!) 166.4 kg (366 lb 12.8 oz) 06/15/19 (!) 168.9 kg (372 lb 6.4 oz) 06/10/19 (!) 169.6 kg (374 lb) Temp Readings from Last 3 Encounters: 06/10/19 36.6 C (97.8 F) 05/04/19 37.2 C (98.9 F) (Temporal) 06/19/18 36.4 C (97.5 F) (Temporal) BP Readings from Last 3 Encounters: 08/17/19 124/62 06/15/19 122/72 06/10/19 153/68 Pulse Readings from Last 3 Encounters: 08/17/19 88 06/15/19 82 06/10/19 68 Vital signs: 10/30/2018: WT 357 LB. BP 120/68. HR 66 . Vital signs: 10/27/2018: WT 356 LB BP: 128/68. HR 57. Vital signs: 07/28/2018. WT 336 LB. BP 122/62. HR 64 GENERAL: Well developed, well nourished, in no distress. Appears approximately stated age . HEENT: Normocephalic, atraumatic. EYES: PERRL, EOM normal. MOUTH: Oral mucosae moist, dentition adequate, no lesions noted NECK: No JVD, lymphadenopathy, thyromegaly, bruits. Carotid pulses are 2+ bilaterally LUNGS: Clear bilaterally, with no rales, rhonchi or wheezing noted, respirations unlabored HEART: Nondisplaced PMI, regular rate and rhythm, S1, S2 normal. No murmurs, rubs or gall ops noted. ABDOMEN: Large Pannus, well healed abd scar Soft, nontender, no organomegaly, masses or br uits. Bowel sounds are normal in all 4 quadrants. The abdominal aortic pulsation is not pa lpable. EXTREMITIES: Mild LE Pedal edema Bilateral .Radial pulses 2+ bilaterally. Femoral pul ses are 2+ bilaterally without bruits. DP and PT pulses are 2+ bilaterally. No clubbing. SKIN: Warm and dry, capillary refill is normal, no lesions. NEUROLOGIC: Awake, alert and oriented x 3. No focal motor or sensory deficits. PSYCHIATRIC: Appropriate, affect appears normal DATA: Blood tests: Lab Results Component Value Date WBC 10.31 05/04/2019 RBC 3.56 (A) 06/12/2019 RBC 3.86 (A) 02/04/2019 HGB 12.3 (A) 06/12/2019 HGB 13.0 (L) 05/04/2019 HCT 38.9 (L) 05/04/2019 PLT 292 05/04/2019 Lab Results Component Value Date NA 139 06/12/2019 K 4.4 06/12/2019 CL 98 06/12/2019 CO2 16 06/12/2019 ANIONGAP 137 (A) 06/12/2019 GLUF 128 (A) 02/04/2019 BUN 36 (A) 06/12/2019 EGFR 29.0 (A) 06/12/2019 Lab Results Component Value Date CHOL 149 02/06/2017 TRIG 156 (H) 02/06/2017 GLUF 128 (A) 02/04/2019 Lab Results Component Value Date TSH 3.35 10/16/2018 CRP 1.4 (H) 05/04/2019 No results found for: TOTEPI CARDIAC PROCEDURES/IMAGING Last Cath: 02/06/2017 ([facility]) 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 Mild single-vessel disease (30%) involving the proximal RCA. Sluggish blood f low RCA suggestive of endothelial dysfunction. Elevated LVEDP (28 mmHg) suggestive of diast olic dysfunction.(data::LVSP 142, with LVEDP 28, on pullback aortic pressure 140/83. No sign ificant gradient across the aortic valve on pullback ECHO: Last Echo: 06/27/2019: ([facility]):EF 60-65%.LV normal in size, mild LVH, No regional wall motion abnormalities, mild diastolic dysfunction.Mild CYNTHIA.LA WNL.RV normal in size and function, P revious RVE.Aortic valve trileaflet, minimally sclerotic, mild AI, no aortic stenosis.Mitral valve normal, no stenosis or significant regurgitation. Tricuspid valve normal without jarrell nosis or regurgitation. Pulmonic valve not well visualized.Ascending aorta mildly dilated 4.27 cm. IVC WNL. No pericardial or pleural effusion. Echo: 2016: Sinus rhythm. Adequate study. EF improved to 60-65 percent. LV normal in size, moderate left ventricular hypertrophy. No regional wall motion abnormalities. Mi ld diastolic dysfunction. RV normal in size and function. Left Atrium now normal in size, mild RVE decreased from moderate on previous study. Aortic valve trileaflet, trace aortic r egurgitation and no aortic stenosis. Normal mitral valve, no mitral regurgitation, no yoel l valve prolapse or stenosis. Tricuspid valve normal, trace TR. Pulmonary artery systolic pressure not assessed due to inadequate TR jet. Pulmonic valve normal, trace IL. No perica rdial effusion. IVC 1.5-2.5 cm, CPAP 5-10 mmHg. Ascending aorta dilated 4.2 cm Echo: 02/16/2016 ([facility]): moderate LVH, global hypokinesis, LVEF 40-45%, moderate LAE, moderate CYNTHIA (suspect RVE), mild MR, trace TR, est systolic PAP 19-24 mmHg. Last Stress Test: 2016: EKG showed no changes with Lexiscan challenge baseline : Sinus bradycardia, rate 52 bpm, bifascicular block with right bundle branch and left anterior fascicular block. With stress, heart rate increased to a maximum of 71 bpm, 43 percent of maximum age-predicted heart rate. Resting blood pressure 152/75, stress blood pressure 155/76. No arrhythmias. No ST segment changes noted. Images. Stress images show diminished radiotracer uptake to inferior wall, which fills and rest consistent with a mode rate area of ischemia. Remainder of stress and rest images well matched. Transient cavity dilatation score is normal. EF 46 percent. Bull's eyes images show mildly diminished muscl e thickening, and cine images show mild dyskinesia EKG/EVENT MONITOR EK2016: Sinus bradycardia with first-degree AV block. Bifascicular Block: Rate 5 8 bpm, IL 222 ms, QRS 156 ms, QTC 475 ms EK03/11: Sinus bradycardia with first-degree A-V block. Bi fascicular block. Rate 59 bpm, IL 238 ms, QRS 160 ms, QTC 481 ms, compared to EKG done in January first-degree A-V b lock has increased slightly,tracing personally reviewed by me EK08/01: Sinus rhythm with first-degree AV block. Left axis deviation and a right bundle branch block. Rate 65 bpm, IL 230 ms, QRS 162 ms, QTC 497 ms, when compared to EKG done in February 2017, IL interval has decreased slightly and QTC has increased ,tracing person ally reviewed by me EK10/30/2018: Sinus rhythm with first-degree AV block bifascicular block, old septal infa rct. Rate 66 bpm, IL 250 ms, QRS 156 ms, QTC 475 ms, tracing personally reviewed by me and paired to EKG performed in July 2017, first-degree AV block has increased, and now has b ifascicular block LABS: Labs: 2016:Lipids:( atorvastatin 80 mg) Cholesterol 140, triglycerides 93, HDL 43, LD L 78, VLDL 19 ratio 3.3 non-HDL cholesterol 97. CMP: Sodium 142, potassium 4.8, chloride 10 4 glucose 91, BUN 27, creatinine 1.39, GFR 53, total bilirubin 0.3 direct bilirubin 0.1 jadon rect bilirubin 0.2 alk phos 57, AST 17, ALT 15, iron 107, TIBC 343 percent sat 31.2, transfe rrin 244, magnesium 2.4, ferritin 24.23, B12 835 folate 15, CBC:WBC 7.5, hemoglobin 11.8, he matocrit 35.9, platelets 259 Labs 2016: CMP:Sodium 139, potassium 4, chloride 98, glucose 152, BUN 32, creatinine 1 .44, GFR 51, AST 18, ALT 17, alk phos 57, total bilirubin 0.4, CBC: WBC 8.1, hemoglobin 11.5 , hematocrit 34.7, platelets 266 Labs: : Free T4 1 0.13, TSH 6.23 Labs: 07/29: Sodium 138, potassium 4.3, chloride 99, glucose 109, BUN 34, creatinine 1.39, GFR 53 iron 85.26, TIBC 297, percent sat 28.7, ferritin 127.5, U IBC 212, transferrin 2 at 12.49, vitamin B12 612.3, PSA 0.491, vitamin D 53 Labs: 08/18: CBC: WBC 14.9, RBC 3.71, hemoglobin 11.9, hematocrit 35.1, platelets 324 ( post op GI surgery) . CMP: Sodium 135, potassium 4.1, chloride 97, glucose 149, BUN 33, cr eatinine 1.87, GFR 38. Surgical pathology noted moderately differentiated adenocarcinoma an d tumor invades the submucosa with no lymphovascular invasion, no perineural invasion, no ly mph node involvement Labs: 02/20/2018: CMP: Sodium 139, potassium 4, chloride 102, glucose 91, BUN 27, creatinine 1.67, GFR 43. AST 15, ALT 13, alk phos 61, total bilirubin 0.3, albumin 3.7. CBC: WBC 8.6 , RBC 3.41, hemoglobin 11.3, hematocrit 33, platelets 421. INR: 04/16/2018: 2.2 Labs: 08/31/2018: Uric acid 11.1, ESR 87, rheumatoid factor less than 10, NICKIE titer less jenise n 1:80. Renal function panel: Sodium 134, potassium 4.6, chloride 99, glucose 101, BUN 50, creatinine 2.18, GFR 31, albumin 4.1 Labs: 10/16/2018: Ferritin 46.75. Iron panel: Iron 114, iron percent sat 37.5 percent, TIBC 307 CBC: WBC 6.7, RBC 3.63, hemoglobin 12.2, hematocrit 35.3, platelets 300 renal function panel: Glucose 103, BUN 35, creatinine 2.07, albumin 3.9, sodium 140, potassium 4.6, chlorid e 102, GFR 33. Uric acid: 8.2. Thyroid: TSH 3.35 Labs: 2018 lipids:( atorvastatin 80): Cholesterol 129, triglycerides 329, HDL 27.4, L DL 36. CMP: Sodium 140, potassium 4.8, chloride 97, glucose 121, BUN 40, creatinine 2.58, G FR 26, AST 17 ALT 17, alk phos 76, total bili 0.4, albumin 4.1. Uric acid 7. Iron panel: I ellyn 88.65, TIBC 286, ferritin 109. CBC: WBC 8.9, RBC 3.67, BUN 12 point, hematocrit 37.3, p latelets 269. Labs: 05/04/2019: CBC: WBC 10.31, RBC 3.78, hemoglobin 13, hematocrit 38.9, Platelets 292. Labs: 07/10/2019:( [facility]) INR: 1.29. CBC: WBC 10.26, RBC 2.55, hemoglobin 8.3, hematocrit 26, platelets 260.CMP: Glucose 126, BUN 62, creatinine 2.63, GFR 25, sodium 139, potassium 4 .5, chloride 107, CO2 26, total bili 0.4, albumin 3, alk phos 67, AST 23, ALT 18. Labs: 07/12/2019: CBC: WBC 8.12, RBC 2.41, hemoglobin 7.9, hematocrit 24.8, platelets 231. BMP: Glucose 108, BUN 28, creatinine 2.39, GFR 28, sodium 137, potassium 4.1, chloride 104 ASSESSMENT & PLAN: He was here today to follow-up on the results of his echo, and delayed as admitted to [facility] on Jul 13 for bleeding post colonoscopy as discussed in HPI. He has problems as detailed below. His Echo performed in June as detailed above, and reports normal EF of 60-65%, no reg ional wall motion abnormalities, mild stable LVH, RV now normal in size and function improve d from mild RVE previously, Mild AI, but no MR or TR, and no pericardial, and no pleural eff usion. I reviewed the results in detail with him, and he was happy with improved findings. Symptomatically he seems stable, and heart rate and blood pressure are well controlled. I made no changes to cardiac medications today, and he should continue torsemide 20 mg daily for heart failure and lower extremity edema, hydralazine 50 mg 3 times daily for lowe r extremity edema, and heart failure, carvedilol 6.25 mg twice daily for heart failure, and I would like to increase this in the future his blood pressure allowing, atorvastatin 80 mg nightly for hyperlipidemia, and Coumadin for stroke prevention. His Coumadin has been resumed for 1 month after his episode of GI bleeding at the beginning of July, and he has had no further episodes of bleeding, and INR is now therapeutic. I will also have him establish care with Dr. Lorraine Clifton 12/02/2018 as his primary cardiol ogist, but I will also continue to follow him. 1. Paroxysmal atrial fibrillation (HCC) 2. Chronic combined systolic and diastolic congestive heart failure (HCC) 3. Essential hypertension with goal blood pressure less than 130/80 4. Mixed hyperlipidemia 5. Bilateral leg edema 6. Ascending aorta dilatation (HCC) 7. Chronic kidney disease, stage 3 (HCC) 8. History of colon cancer 9. Class 3 obesity with alveolar hypoventilation without serious comorbidity with body mass index (BMI) of 50.0 to 59.9 in adult (HCC) 10. Obstructive sleep apnea on CPAP 11. History of left nephrectomy No orders of the defined types were placed in this encounter. The following portions of the patient's history were personally reviewed by me and updated as appropriate: EKG tracings, other specialty provider and PCP notes,any Hospital admission and discharge summaries, any ER records , current and previous cardiac testing and procedure reports and d eros, medication bottles brought to visit today personally reviewed by me. Allergies, current medications.labs Family history, past medical history, past social history, past surgical history. Problem list. This encounter was dictated with voice recognition software and may contain inadvertent rec ognition errors. Ethan [facility] 08/18/2019 Sherrie kirby in this encounter Plan of Treatment +--------+---------+ + + + | Date | Type | Specialty | Care Team | Description | +--------+---------+ + + + | 03/17/ | Office | Cardiology | Lorraine Clifton DO | | | 2019 | Visit | | [address] | | | | | | [place] | | | | | | [id number] | | | | | | | | +--------+---------+ + + + documented as of this encounter Visit Diagnoses + + | Diagnosis | + + | Paroxysmal atrial fibrillation (HCC) - Primary Atrial fibrillation | + + | Chronic combined systolic and diastolic congestive heart failure (HCC) Chronic | | combined systolic and diastolic heart failure | + + | Essential hypertension with goal blood pressure less than 130/80 | + + | Mixed hyperlipidemia | + + | Bilateral leg edema Edema | + + | Ascending aorta dilatation (HCC) Thoracic aortic ectasia | + + | Chronic kidney disease, stage 3 (HCC) | + + | History of colon cancer Personal history of malignant neoplasm of large intestine | + + | Class 3 obesity with alveolar hypoventilation without serious comorbidity with body | | mass index (BMI) of 50.0 to 59.9 in adult (HCC) | + + | Obstructive sleep apnea on CPAP Obstructive sleep apnea (adult) (pediatric) | + + | History of left nephrectomy | + + documented in this encounter
--- OUTSIDE RECORDS SUMMARY | ~2019-12-19 | XMS | Encounter Summary ---
Demographics + + + | Address | [address] | | | [place] [address] | + + + | Home Phone | | + + + | Preferred Language | Unknown | + + + | Marital Status | Single | + + + | Adventist Affiliation | LDS | + + + [...] [place] | | | | | [address] | | + + + + + Care Team Providers + +------+ + | Care Window Glazier Name | Role | Phone | + [...] Closed | | Gastroenterol | Diagnoses | | Gas Endo | | | | ogy | Polyp of | [place], | [address] | | | | | colon, | MD Charles | [address] | | | | | villous | [address] | [place] | | | | | adenoma | [address] | [address] | | | | | Procedures | Rd | floor | | | | | CONSULT TO | [place], [place] | [place], [place] | | | | | GI PROCEDURE | [address] | [address] | | | | | UNIT: | Phone: | Phone: | | | | | COLONOSCOPY | [phone] | [phone] | | | | | | Fax: | Fax: | | | | | | [phone] | [phone] | +--------+--------+ + + + + Encounter Details +--------+ + + + + | Date | Type | Department | Care Team | Description | +--------+ + + + + | 04/14/ | Software Recruiter | [facility] | [place], | Polyp of colon, | | 2018 | | [place] [address] | MD [address] | villous adenoma | | | | [address] Mailcode: | [address] | (Primary Dx) | | | | [facility] | [place], [place] | | | | | [facility], | [address] | | | | | Building [address] | [phone] | | | | | [place], [place] | | | | | | [address] | | | | | | [phone] | | | +--------+ + + + [...] Rd | | | | | | [place], [place] | | | | | | [address] | | | | | | [phone] | | | | | | | | +--------+---------+ + + + documented as of this encounter Visit Diagnoses + + | Diagnosis | + + | Polyp of colon, villous adenoma - Primary Benign neoplasm of colon | + + documented in this encounter"
--- OUTSIDE RECORDS SUMMARY | ~2019-12-19 | XMS | Encounter Summary ---
Demographics + + + | Address | [address] [address] | | | [place] [address] | + + + | Home Phone | | + + + | Preferred Language | Unknown | + + + | Marital Status | Single | + + + | Pentecostal Affiliation | [id number] | + + + | Race | Unknown | + + + | Ethnic Group | Unknown | + + + Author + + + | Author | [facility] | | | and [place] | + + + | Organization | [facility] | | | [...] Team Providers + +------+ + | Care Shale Processing Technician Name | Role | Phone | + +------+ + | Sarah Carroll MD | PCP | | + +------+ + Reason for Visit + + + | Reason | Comments | + + + | Procedure | | + + + Evaluate & Treat (Routine) +--------+ + + + + + | Status | Reason | Specialty | Diagnoses / | Referred By | Referred To | | | | | Procedures | Contact | Contact | +--------+ + + + + + | Closed | Specialty | Physical | Diagnoses | Malhotra, | Riccardo Malhotra | | | Services | Medicine and | Chronic | Riccardo Kathrin Mcgill MD | Kathrin Mcgill MD [address] | | | Required | Rehabilitatio | bilateral | [address] | | | | n | low back | [address] | [place], | | | | | pain with | [place], | [place] [address] | | | | | bilateral | [place] [address] | Phone: | | | | | sciatica | Phone: | [phone] | | | | | Bilateral | [phone] | Fax: | | | | | foot-drop | Fax: | [phone] | | | | | Numbness of | [phone] | | | | | | both lower | | | | | | | extremities | | | | | | | Procedures | | | | | | | ME MOTOR | | | | | | | &/SENS / | | | | | | | NRV CNDJ | | | | | | | PRECONF | | | | | | | ELTRODE LIMB | | | | | | | ME NEEDLE | | | | | | | EMG EA | | | | | | | EXTREMITY | | | | | | | W/PARASPINL | | | | | | | AREA LIMITED | | | | | | | ME MOTOR | | | | | | | &/SENS - | | | | | | | NRV CNDJ | | | | | | | PRECONF | | | | | | | ELTRODE LIMB | | | | | | | ME OFFICE | | | | | | | OUTPATIENT | | | | | | | VISIT 25 | | | | | | | MINUTES DOS | | | | | | | 01/12/19 | | | +--------+ + + + + + Encounter Details +--------+ + + + + | Date | Type | Department | Care Team | Description | +--------+ + + + + | 01/12/ | Procedure | [facility] | Riccardo Malhotra, | Peripheral | | 2019 | visit | PHYSIATRY [address] | MD [address] | polyneuropathy | | | | [address] | [place] | (Primary Dx); | | | | [place] | [address] | Chronic bilateral | | | | [address] | | low back pain with | | | | [phone] | | bilateral sciatica; | | | | | | Numbness of both | | | | | | lower extremities; | | | | | | Bilateral foot-drop; | | | | | | Meralgia | | | | | | paresthetica of left | | | | | | side | +--------+ + + + + Social [...] this encounter Last Filed Vital Signs + +---------+ + + | Vital Sign | Reading | Time Taken | Comments | + +---------+ + + | Blood Pressure | 142/80 | 01/12/2019 3:25 PM | | | | | PDT | | + +---------+ + + | Pulse | - | - | | + +---------+ + + | Temperature | - | - | | + +---------+ + + | Respiratory Rate | - | - | | + +---------+ + + | Oxygen Saturation | - | - | | + +---------+ + + | Inhaled Oxygen | - | - | | | Concentration | | | | + +---------+ + + | Weight | - | - | | + +---------+ + + | Height | - | - | | + +---------+ + + | Body Mass Index | - | - | | + +---------+ + + documented in this encounter Functional [...] documented as of this encounter Progress Notes Riccardo Malhotra MD - 01/12/2019 3:40 PM PDTFormatting of this note might be different fro m the original. [facility] Physical Medicine & Rehabilitation [address] [place] [address], [address] [place] [address] Test Date: 01/12/2019 Patient Name: Aaron Latham : 1960 Physician: Riccardo Malhotra MD () MR #: [id number] Sex: Male Referring Physician: Sarah Carroll HISTORY: Aaron Latham presents to the clinic for previously scheduled bilateral lower extremi ty electrodiagnostic study. Aaron Latham reports bilateral foot numbness and foot dr op that started during hospitalization in February 2016. He denies being on a ventilator. He d enies receiving paralyzing medication. He reports that he was hospitalized for renal failur e and fluid overload. He has a history of colon cancer treated with resection. He denies h istory of chemotherapy treatment. He denies history of radiation treatment. He denies hist ory of diabetes, but the medical record indicates history of prediabetes. He is anticoagula kofi on coumadin. At his last visit lumbar MRI was requested, but has not yet been completed . Insurance authorization was just received within the last few days. He denies back pain. He does report left groin pain that radiates into left thigh. He reports foot drop gait w hich has been static since 2016. He denies a family history of hereditary neuropathy. He r eports that his mother has diabetes. He denies a history of thyroid disease. He denies a h istory of routine heavy alcohol consumption. He reports numbness in toes, feet, and foreleg s bilaterally. He reports history of hand numbness and weakness. He reports history of gonzález or right ulnar nerve transposition. He reports that his hand numbness started within a few months of his foot numbness. He reports that his diuretic was recently discontinued and he has been retaining some fluid in both feet. Aaron Latham reports recent diagnosis of recurrent colon cancer. PHYSICAL EXAM: Aaron Latham is not in acute distress. He is alert and oriented to person, place, t liam and situation. His speech is normal. His cranial nerves are grossly intact. He is abl e to follow complex commands. He has 2+ edema in both feet, ankles and forelegs up to mid-f orelegs. Sensory exam demonstrates decreased sensation in a stocking distribution of both l ower extremities, but strongest over L4 and L5 dermatomes bilaterally. Motor exam demonstra dimitri 3/5 ankle dorsiflexion on the right and 4/5 ankle dorsiflexion on the left. Motor exam demonstrates 4/5 EHL strength bilaterally. Motor exam demonstrates 5/5 hip flexion, knee fl exion, and 4+/5 ankle plantar flexion bilaterally. His Achilles reflexes were absent bilate rally. His patellar reflexes were 1+ bilaterally. He has steppage gait involving both feet . He has foot drop in both legs during swing through phase of gait. There is venous stasis changes in bilateral feet and bilateral forelegs. Nerve Conduction Studies Anti Sensory Summary Table Site NR Peak (ms) Norm Peak (ms) O-P Amp (V) Norm O-P Amp Site1 Site2 Delta-0 (ms) Dist (cm) Zack (m/s) Norm Zack (m/s) Right Median Anti Sensory (2nd Digit) Wrist 5.8 <3.6 2.9 >10 Wrist 2nd Digit 5.0 14.0 28 >39 Right Radial Anti Sensory (Base 1st Digit) Wrist 2.5 <2.7 3.9 Wrist Base 1st Digit 2.1 10.0 48 Left Sural Anti Sensory (Lat Mall) Calf NR <4.0 >5.0 Calf Lat Mall 14.0 >35 Site 2 NR Site 3 NR Right Sural Anti Sensory (Lat Mall) Calf NR <4.0 >5.0 Calf Lat Mall 14.0 >35 Site 2 NR Site 3 NR Motor Summary Table Site NR Onset (ms) Norm Onset (ms) O-P Amp (mV) Norm O-P Amp Site1 Site2 Delta-0 (ms) Dist (cm) Zack (m/s) Norm Zack (m/s) Left Peroneal Motor (Ext Dig Brev) Edema Ankle NR <6.1 >2.5 Right Peroneal Motor (Ext Dig Brev) Edema Ankle NR <6.1 >2.5 Left Peroneal TA Motor (Tib Ant) Fib Head 5.9 <4.2 1.2 Poplit Fib Head 2.5 9.0 36 >40.5 Poplit 8.4 <5.7 1.2 Right Peroneal TA Motor (Tib Ant) Fib Head 6.4 <4.2 0.6 Poplit Fib Head 2.3 10.0 43 >40.5 Poplit 8.7 <5.7 0.1 Left Tibial Motor (Abd Wahl Brev) Edema Ankle NR <6.1 >3.0 Knee Ankle 0.0 >35 Knee NR Right Tibial Motor (Abd Wahl Brev) Edema Ankle NR <6.1 >3.0 Knee Ankle 41.0 >35 Knee NR Right Ulnar Motor (Abd Dig Minimi) Wrist 3.8 <4.2 2.5 >3 B Elbow Wrist 5.4 22.0 41 >53 B Elbow 9.2 2.2 EMG Side Muscle Nerve Root Ins Act Fibs Psw Amp Dur Poly Recrt Int Pat Comment Left RectFemoris Femoral L2-4 Nml Nml Nml Nml Nml Nml Nml Nml Left BicepsFemL Sciatic L5-S2 Nml Nml Nml Nml Nml Nml Nml Nml Left AntTibialis Dp Br Peron L4-5 Incr 2+ Nml Nml Nml Nml Nml Nml Left Gastroc Tibial S1-2 Incr 1+ Nml Nml Nml Nml Nml Nml Right RectFemoris Femoral L2-4 Nml Nml Nml Nml Nml Nml Nml Nml Right BicepsFemL Sciatic L5-S2 Nml Nml Nml Nml Nml Nml Nml Nml Right AntTibialis Dp Br Peron L4-5 Incr 3+ Nml Nml Nml Nml Nml Nml Right Gastroc Tibial S1-2 Incr 3+ Nml Nml Nml Nml Nml Nml Nerve Conduction Studies Motor Left/Right Comparison Site L Lat (ms) R Lat (ms) L-R Lat (ms) L Amp (mV) R Amp (mV) L-R Amp (%) Site1 Site2 L Ve l (m/s) R Zack (m/s) L-R Zack (m/s) Peroneal Motor (Ext Dig Brev) Edema Ankle Peroneal TA Motor (Tib Ant) Fib Head 5.9 6.4 0.5 1.2 0.6 50.0 Poplit Fib Head 36 43 7 Poplit 8.4 8.7 0.3 1.2 0.1 91.7 Tibial Motor (Abd Wahl Brev) Edema Ankle Knee Ankle Knee Ulnar Motor (Abd Dig Minimi) Wrist 3.8 2.5 B Elbow Wrist 41 B Elbow 9.2 2.2 NCV FINDINGS: Evaluation of the Left peroneal motor and the Right peroneal motor nerves adán wed no response (Ankle). The Left peroneal (TA) motor nerve showed prolonged distal onset l atency (Fib Head), prolonged distal onset latency (Poplit), and decreased conduction velocit y (Poplit-Fib Head). The Right peroneal (TA) motor nerve showed prolonged distal onset late ncy (Fib Head) and prolonged distal onset latency (Poplit). The Left tibial motor and the R ight tibial motor nerves showed no response (Ankle) and no response (Knee). The Right ulnar motor nerve showed reduced amplitude and decreased conduction velocity (B Elbow-Wrist). Th e Right median sensory nerve showed prolonged distal peak latency, reduced amplitude, and de creased conduction velocity (Wrist-2nd Digit). The Right radial sensory nerve showed reduce d amplitude. The Left sural sensory and the Right sural sensory nerves showed no response ( Calf), no response (Site 2), and no response (Site 3). EMG FINDINGS: Needle evaluation of the Left anterior tibialis muscle showed increased inser tional activity and moderately increased spontaneous activity. The Left gastroc muscle show ed increased insertional activity and slightly increased spontaneous activity. The Right an terior tibialis and the Right gastroc muscles showed increased insertional activity and very increased spontaneous activity. All remaining muscles (as indicated in the following table ) showed no evidence of electrical instability. IMPRESSION: This is an abnormal study. Nerve conduction study of both lower extremities and limited study of right upper extremity (for comparison) was abnormal. The findings are most consistent with peripheral polyneurop athy. The neuropathy appears to involve sensory and motor axon loss. Since peroneal nerve responses were very limited, it was not possible to definitively deter mine if there was peroneal neuropathy, in either lower extremity, at the fibular heads. How ever, with the information obtained, peroneal neuropathy at the fibular heads is unlikely. Tibial motor nerve responses were absent bilaterally, most likely secondary to peripheral n europathy. Sural sensory responses were absent bilaterally, most likely secondary to peripheral neurop athy. Right radial sensory response was reduced, most likely secondary to peripheral neuropathy. Right ulnar motor response was reduced, most likely reduced secondary to peripheral neuropa thy, but may also be related to history of prior diagnosis of right cubital tunnel syndrome. Right median motor response was reduced, most likely reduced secondary to peripheral neurop athy, but the presence of right carpal tunnel syndrome cannot be excluded. Unfortunately, prior upper extremity nerve conduction study with Dr. Judge, has been reque sted, but is not yet available for review. EMG study of both lower extremities was abnormal. Needle EMG of both lower extremities dem onstrated changes most consistent with axon loss peripheral neuropathy. The presence of lum bar radiculopathy cannot be excluded by this study. EMG study was limited because Aaron Latham is on Coumadin and recent INR was unavailable. We reviewed the risk of hematoma. EMG study was limited in hopes of reducing his hematoma risk. DISCUSSION: Aaron Latham demonstrated normal tolerance to nerve conduction study and fair tolera nce to EMG study. As noted above, this study demonstrates axon loss peripheral neuropathy involving both sens ory and motor axons. This study cannot rule out the presence of lumbar radiculopathy. The presence of peroneal neuropathy at the fibular heads is unlikely. Aaron Latham has been asked to completed previously requested lumbar MRI. If he has significant neural foraminal narrowing at L4-5, or if he has significant spinal stenosis, t his could be a contributing factor to his bilateral foot drop. It is lumbar imaging is unre markable, it is most likely that his foot drop is secondary to peripheral neuropathy. Aaron Latham has been asked to complete laboratory testing to evaluate for common an d treatable causes or peripheral neuropathy. Requested lab testing includes: CBC, CMP, B12, folate, methylmalonic acid, TSH, free T4, ESR, CRP, NICKIE, 24 hour urin for arsenic, urine he simona metal screen, serum protein immunofixation electrophoresis, and 2 hour glucose tolerance test. Today we reviewed the limitation to laboratory testing, and that there are times jenise t the etiology of neuropathy cannot be determined. We reviewed the potential for hereditary neuropathy and that at present is not treatable. For now he declines genetic testing for h ereditary neuropathy. Diabetic neuropathy and paraneoplastic neuropathy (among many other p ossibilities) remains a diagnostic consideration. 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 He will return to the clinic to review lab results and lumbar MRI. Approximately 30 minutes was spent face to face with Aaron Latham, over half of [facility] was spent formulating and discussing their medical treatment plan. Thank you for allowing me to be involved in the care of your patient. If you have any quest ions or comments, please do not hesitate to call. Riccardo Malhotra MD (Jr.) Physical Medicine and Rehabilitation Cc: Sarah Carroll MD Pretty Ceja RN - 01/12/2019 3:40 PM PDTA MRI has been requested. Please complete the requested imaging. Within one week, you should receive a call to schedule your MRI. If you have not heard from anyone within one week, please call the clinic. The results of your MRI will be reviewed a t your next appointment. If your MRI demonstrates any emergent results, the clinic will con tact you. Laboratory tests have been requested. Please go to the lab to complete your laboratory dimitri ting. The results of your laboratory testing will be reviewed at your next appointment. If your labratory results demonstrate any emergent results the clinic will contact you. documented in this e ncounter Plan of Treatment +--------+---------+ + + + | Date | Type | Specialty | Care Team | Description | +--------+---------+ + + + | 03/17/ | Office | Cardiology | Lorraine Clifton DO | | | 2019 | Visit | | [address] | | | | | | [place] | | | | | | [address] | | | | | | | | +--------+---------+ + + + + +------+--------+ + + | Name | Type | Priori | Associated Diagnoses | Order Schedule | | | | ty | | | + +------+--------+ + + | Arsenic, Urine, 24Hr | Lab | Routin | Peripheral | 1 Occurrences | | | | e | polyneuropathy | starting 01/12/2019 | | | | | Chronic bilateral | until 01/13/2020 | | | | | low back pain with | | | | | | bilateral sciatica | | | | | | Numbness of both | | | | | | lower extremities | | | | | | Bilateral foot-drop | | | | | | Meralgia | | | | | | paresthetica of left | | | | | | side | | + +------+--------+ + + | C-Reactive Protein | Lab | Routin | Peripheral | 1 Occurrences | | | | e | polyneuropathy | starting 01/12/2019 | | | | | Chronic bilateral | until 01/12/2020 | | | | | low back pain with | | | | | | bilateral sciatica | | | | | | Numbness of both | | | | | | lower extremities | | | | | | Bilateral foot-drop | | | | | | Meralgia | | | | | | paresthetica of left | | | | | | side | | + +------+--------+ + + | Methylmalonic Acid, | Lab | Routin | Peripheral | 1 Occurrences | | Quant | | e | polyneuropathy | starting 01/12/2019 | | | | | Chronic bilateral | until 01/13/2020 | | | | | low back pain with | | | | | | bilateral sciatica | | | | | | Numbness of both | | | | | | lower extremities | | | | | | Bilateral foot-drop | | | | | | Meralgia | | | | | | paresthetica of left | | | | | | side | | + +------+--------+ + + | Protein | Lab | Routin | Peripheral | 1 Occurrences | | Electrophoresis, | | e | polyneuropathy | starting 01/12/2019 | | Serum | | | Chronic bilateral | until 01/13/2020 | | | | | low back pain with | | | | | | bilateral sciatica | | | | | | Numbness of both | | | | | | lower extremities | | | | | | Bilateral foot-drop | | | | | | Meralgia | | | | | | paresthetica of left | | | | | | side | | + +------+--------+ + + | Sedimentation Rate | Lab | Routin | Peripheral | 1 Occurrences | | | | e | polyneuropathy | starting 01/12/2019 | | | | | Chronic bilateral | until 01/12/2020 | | | | | low back pain with | | | | | | bilateral sciatica | | | | | | Numbness of both | | | | | | lower extremities | | | | | | Bilateral foot-drop | | | | | | Meralgia | | | | | | paresthetica of left | | | | | | side | | + +------+--------+ + + | T4, Free | Lab | Routin | Peripheral | Expected: | | | | e | polyneuropathy | 01/12/2019, Expires: | | | | | Chronic bilateral | 01/12/2020 | | | | | low back pain with | | | | | | bilateral sciatica | | | | | | Numbness of both | | | | | | lower extremities | | | | | | Bilateral foot-drop | | | | | | Meralgia | | | | | | paresthetica of left | | | | | | side | | + +------+--------+ + + | TSH | Lab | Routin | Peripheral | Expected: | | | | e | polyneuropathy | 01/12/2019, Expires: | | | | | Chronic bilateral | 01/12/2020 | | | | | low back pain with | | | | | | bilateral sciatica | | | | | | Numbness of both | | | | | | lower extremities | | | | | | Bilateral foot-drop | | | | | | Meralgia | | | | | | paresthetica of left | | | | | | side | | + +------+--------+ + + | Folate | Lab | Routin | Peripheral | 1 Occurrences | | | | e | polyneuropathy | starting 01/12/2019 | | | | | Chronic bilateral | until 01/13/2020 | | | | | low back pain with | | | | | | bilateral sciatica | | | | | | Numbness of both | | | | | | lower extremities | | | | | | Bilateral foot-drop | | | | | | Meralgia | | | | | | paresthetica of left | | | | | | side | | + +------+--------+ + + | Vitamin B-12 | Lab | Routin | Peripheral | Expected: | | | | e | polyneuropathy | 01/12/2019, Expires: | | | | | Chronic bilateral | 01/12/2020 | | | | | low back pain with | | | | | | bilateral sciatica | | | | | | Numbness of both | | | | | | lower extremities | | | | | | Bilateral foot-drop | | | | | | Meralgia | | | | | | paresthetica of left | | | | | | side | | + +------+--------+ + + | CBC with | Lab | Routin | Peripheral | Expected: | | Differential | | e | polyneuropathy | 01/12/2019, Expires: | | | | | Chronic bilateral | 01/12/2020 | | | | | low back pain with | | | | | | bilateral sciatica | | | | | | Numbness of both | | | | | | lower extremities | | | | | | Bilateral foot-drop | | | | | | Meralgia | | | | | | paresthetica of left | | | | | | side | | + +------+--------+ + + | Comprehensive | Lab | Routin | Peripheral | Expected: | | Metabolic Panel | | e | polyneuropathy | 01/12/2019, Expires: | | | | | Chronic bilateral | 01/12/2020 | | | | | low back pain with | | | | | | bilateral sciatica | | | | | | Numbness of both | | | | | | lower extremities | | | | | | Bilateral foot-drop | | | | | | Meralgia | | | | | | paresthetica of left | | | | | | side | | + +------+--------+ + + | Glucose Tolerance | Lab | Routin | Peripheral | 1 Occurrences | | Test, 2Hr | | e | polyneuropathy | starting 01/12/2019 | | | | | Chronic bilateral | until 01/13/2020 | | | | | low back pain with | | | | | | bilateral sciatica | | | | | | Numbness of both | | | | | | lower extremities | | | | | | Bilateral foot-drop | | | | | | Meralgia | | | | | | paresthetica of left | | | | | | side | | + +------+--------+ + + | Heavy Metals Screen, | Lab | Routin | Peripheral | 1 Occurrences | | Urine, Random | | e | polyneuropathy | starting 01/12/2019 | | | | | Chronic bilateral | until 01/13/2020 | | | | | low back pain with | | | | | | bilateral sciatica | | | | | | Numbness of both | | | | | | lower extremities | | | | | | Bilateral foot-drop | | | | | | Meralgia | | | | | | paresthetica of left | | | | | | side | | + +------+--------+ + + | NICKIE Panel, Quant | Lab | Routin | Peripheral | 1 Occurrences | | | | e | polyneuropathy | starting 01/12/2019 | | | | | Chronic bilateral | until 01/13/2020 | | | | | low back pain with | | | | | | bilateral sciatica | | | | | | Numbness of both | | | | | | lower extremities | | | | | | Bilateral foot-drop | | | | | | Meralgia | | | | | | paresthetica of left | | | | | | side | | + +------+--------+ + + documented as of this encounter Procedures + +--------+ + + + | Procedure Name | Priori | Date/Time | Associated Diagnosis | Comments | | | ty | | | | + +--------+ + + + | IMAGING REPORT - | | 03/03/2019 | | Results for this | | EXTERNAL SCAN | | 12:00 AM | | procedure are in the | | | | PDT | | results section. | + +--------+ + + + documented in this encounter Results IMAGING REPORT - EXTERNAL SCAN (03/03/2019 12:00 AM PDT) + + + | Narrative | Performed At | + + + | Ordered by an | | | unspecified provider. | | + + + documented in this encounter Visit Diagnoses + + | Diagnosis | + + | Peripheral polyneuropathy - Primary Unspecified hereditary and idiopathic peripheral | | neuropathy | + + | Chronic bilateral low back pain with bilateral sciatica | + + | Numbness of both lower extremities | + + | Bilateral foot-drop Other acquired deformity of ankle and foot | + + | Meralgia paresthetica of left side Meralgia paresthetica | + + documented in this encounter"
--- OUTSIDE RECORDS SUMMARY | ~2019-12-19 | XMS | Encounter Summary ---
Demographics + + + | Address | [address] [address] | | | [place] [address] | + + + | Home Phone | | + + + | Preferred Language | Unknown | + + + | Marital Status | Single | + + + | Tenriism Affiliation | 1077 | + + + | Race | Unknown | + + + | Ethnic Group | Unknown | + + + Author + + + | Author | [facility] | | | and [place] | + + + | Organization | [facility] | | | [...] Team Providers + +------+ + | Care Storekeeper Steward Name | Role | Phone | + +------+ + | Sarah Carroll MD | PCP | | + +------+ + Encounter Details +--------+ + + + + | Date | Type | Department | Care Team | Description | +--------+ + + + + | 12/03/ | Abstract | [facility] | Provider, | | | 2019 | | [address]SI[address] [address] | [address] | | | | | [address] | [address] | | | | | [place] | [place] [address] | | | | | [address] | | | | | | [phone] | | | +--------+ + + + [...] [place] | | | | | | [address] | | | | | | | | +--------+---------+ + + + documented as of this encounter Visit Diagnoses Not on filedocumented in this encounter"
--- OUTSIDE RECORDS SUMMARY | ~2019-12-19 | XMS | Encounter Summary ---
Demographics + + + | Address | [address] [address] | | | [place] [address] | + + + | Home Phone | | + + + | Preferred Language | Unknown | + + + | Marital Status | Single | + + + | [employer] Affiliation | 1077 | + + + [...] Team Providers + +------+ + | Care Firearms Inspector Name | Role | Phone | + +------+ + | Sarah Carroll MD | PCP | | + +------+ + Reason for Visit + + + | Reason | Comments | + + + | Rheumatology | New Consult | | Appointment | | + + + Evaluate & Treat (Urgent) +--------+--------+ + + + + | Status | Reason | Specialty | Diagnoses / | Referred By | Referred To | | | | | Procedures | Contact | Contact | +--------+--------+ + + + + | Closed | | | Diagnoses | Malhotra, | Pablo | | | | | | Riccardo Mcgill MD | Rheumatology | | | | | Polyneuropat | [address] | | | | hy, | [address] | [address] | | | | | unspecified | [place], | [place], [place] | | | | | Elevated | [place] [address] | [address] | | | | | C-reactive | Phone: | Phone: | | | | | protein | [phone] | [phone] | | | | | (CRP) Other | Fax: | Fax: | | | | | specified | [phone] | [phone] | | | | | abnormal | | | | | | | findings of | | | | | | | blood | | | | | | | chemistry | | | +--------+--------+ + + + + Encounter Details +--------+---------+ + + + | Date | Type | Department | Care Team | Description | +--------+---------+ + + + | 05/04/ | Office | [facility] | Arturo Gray | Positive NICKIE | | 2019 | Visit | RHEUMATOLOGY [address] | MD Tien [address] | (antinuclear | | | | [address] | [address] | antibody) (Primary | | | | [place] | [place] [address] | Dx); Chronic kidney | | | | [address] | [phone] | disease, stage 3 | | | | [phone] | | (HCC); SS-B antibody | | | | | | positive; Elevated | | | | | | C-reactive protein | | | | | | (CRP); Pain in | | | | | | joint, multiple | | | | | | sites | +--------+---------+ + + + Social History [...] + + + | Blood Pressure | 142/74 | 05/04/2019 8:36 AM | | | | | PDT | | + + + + + | Pulse | 74 | 05/04/2019 8:36 AM | | | | | PDT | | + + + + + | Temperature | 37.2 C (98.9 F) | 05/04/2019 8:36 AM | | | | | PDT [...] + + + + | Weight | 169.6 kg (374 lb) | 05/04/2019 8:36 AM | | | | | PDT | | + + + + + | Height | 180.3 cm (5' 11") | 05/04/2019 8:36 AM | | | | | PDT | | + + + + + | Body Mass Index | 52.16 | 05/04/2019 8:36 AM | | | | | PDT [...] of this encounter Patient Instructions Patient Instructions Serena Forman, Needle Grinder - 05/04/2019 8:30 AM JUANCARLOSWe hope t hat you have experienced exceptional care today and that you found our service to be courteo us and helpful. If you have any questions, you can send us a message/request using [employer] or call our o ffice at [phone]. To reach the Needle Grinder , dial [email or web address] - [phone]- Serena Jose J GARRISON If you are unable to reach a nurse during clinic hours, please leave a detailed message. We check our messages often and return calls in a timely manner during clinic hours. Orders for labs or imaging: Please remember that Dr Gray will only call you if someyuni g is concerning AND needs to be addressed, otherwise all results will be discussed at your n ext office visit. You can also review your results on epacubehart. If you are experiencing an emergency, please call 911 documented in this encounter Progress Notes Arturo Gray MD - 05/04/2019 8:30 AM PDTFormatting of this note might be differe nt from the original. Rheumatology New Patient / Outpatient CONSULT Referred by: Dr Sarah Carroll MD CC: polyneuropathy, + NICKIE , + ds DNA, elevated CRP HPI: Aaron Latham is a 59 y.o. male who is being seen for the above. Pt reports he was having issues with neuropathy for the past 2-3 years with numbness in feet and hands. He was Dx with gout a few years ago, and is taking allopurinol. When he has a gout flare , has joint pains with joint popping in knees. Takes tylenol for pain control . He has multipl e complex comorbidities including CKD, Hx of colon ca s/p resection, Hx of renal mass, SUZI o n CPAP, hypothyroid, CHF, A.fib, anemia. Had been admitted ~ 2 years ago for edema, was in the ICU for 2 weeks and developed b/l foot drop. Was doing P.T which has helped. Has been s nader Malhotra neurologist in [place] which did a nerve conduction study which was abno rmal. Also has MRI spine done. Denies any sicca sx. No skin rashes. He does describe numbness of the left lower extremity. He does report weakness of the left lower extremity. He does not have bowel and bladder dysfunction. He does not have saddle anesthesia. Pt reports that when weather is cold his fingertips will change color to white. No family history of lupus or RA. Morning stiffness lasting: none Joint pain location: knees, wrist, elbow Quality: ache Severity: severe Duration: chronic Timing:All day Aggravated by:activity Relieved by:rest No history of skin rashes, oral ulcers, nasal ulcers, digital ulcers, pleuritic chest pain, sicca symptoms, skin tightening, hair thinning, muscle weakness Serena Wood , am personally taking down the notes in the presence of Arturo ramos MD Chart review from scanned notes - Hx of morbid obesity, CKD stage III, DANNY, HTN, persistent proteinuria, anemia of chronic re nal failure stage III, on CPAP for SUZI and history of sigmoid colon cancer and s/p left neph rectomy and resection of sigmoid carcinoma in 2018. Reviewed PMR and EMG/nerve conduction tests. Labs NICKIE <1:80 Positive dsDNA, positive SSB antibody. Elevated C-reactive protein 10 and ESR of 25 Normal SPEP pattern MRI L-spine with degenerative changes and moderate to severe foraminal stenosis No Known Allergies Current Outpatient Medications on File Prior to [...] capsule Take 1-2 capsules by mouth Daily. 30 capsule 0 ferrous sulfate 325 mg [...] 6 hours as needed fo r Pain. 40 tablet 0 spironolactone (ALDACTONE) 50 mg tablet Take 100 mg by mouth Daily. tamsulosin (FLOMAX) 0.4 mg CAPS Take 1 capsule by mouth daily (after breakfast). 30 cap benjamin 1 torsemide (DEMADEX) 10 mg tablet 0 warfarin (COUMADIN) 5 mg tablet Take 5-10 mg by mouth Daily. No current facility-administered medications on file prior to visit. 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 Essential hypertension Essential hypertension with goal blood pressure less than 130/80 Foot drop Gouty arthritis Gouty arthritis Heart failure with preserved ejection fraction (HCC) Heart murmur History of colon cancer History of gout Hyperlipidemia Hypertension Hyperuricemia Iron deficiency Iron deficiency anemia Left knee DJD Malignant neoplasm (HCC) colon renal mass Metabolic syndrome Mixed hyperlipidemia Morbid obesity with BMI of 40.0-44.9, adult (HCC) Neuropathy SUZI (obstructive sleep apnea) Paroxysmal atrial fibrillation (HCC) Persistent atrial fibrillation (HCC) Persistent proteinuria Prediabetes Renal mass Renal mass, left 05/2018 Renal neoplasm Resistant hypertension Situational depression Sleep apnea C-PAP Subclinical hypothyroidism Umbilical hernia repaired Unspecified disorder of refraction Vitamin B12 deficiency Vitamin D deficiency Past Surgical History: Procedure Laterality Date ANGIOGRAM 01/2017 HEART CATH CARPAL TUNNEL RELEASE Right 02/2018 and ulna surgery rt elbow COLECTOMY N/A 08/16/2017 Procedure: RESECTION BOWEL LOW ANTERIOR, FLEXIBLE SIGMOIDOSCOPY; Surgeon: Mehul Bowles MD; Location: [facility] OR COLONOSCOPY 05/22/2017 FINGER SURGERY Right 1974 AMPUTATION 5th finger TONSILLECTOMY 1969 TOTAL NEPHRECTOMY Left 06/11/2018 Procedure: LEFT LAPAROSCOPIC NEPHRECTOMY WITH NODE DISSECTION AND LAPAROSCOPIC LYSIS OF AD HESIONS; Surgeon: Patrice Cross MD; Location: [facility] MA[facility] OR Unlisted Procedure Arthroscopy Social History Socioeconomic History Marital status: Single Spouse name: Not on file Number of children: Not on file Years of education: Not on file Highest education level: Not on file Social Needs Financial resource strain: Not on file Food insecurity - worry: Not on file Food insecurity - inability: Not on file Transportation needs - medical: Not on file Transportation needs - non-medical: Not on file Occupational History Not on file Tobacco Use Smoking status: Former Smoker Smokeless tobacco: Former User Types: Chew Tobacco comment: quit in 2014 Substance and Sexual Activity Alcohol use: No Drug use: Never Sexual activity: Not Currently Other Topics Concern Not on file Social History Narrative Not on file Family History Problem Relation Age of Onset Diabetes Mother Hypertension Mother Gout Mother Cancer Father Lung Autoimmune problems in the family - Mother OA ROS Review of Systems Constitutional: Positive for fatigue. Negative for fever. HENT: Negative for mouth sores. Eyes: Negative for discharge. Respiratory: Negative for shortness of breath and wheezing. Cardiovascular: Negative for chest pain. Gastrointestinal: Positive for abdominal pain. Negative for nausea. Genitourinary: Negative for dysuria. Musculoskeletal: Positive for arthralgias, back pain and myalgias. Negative for joint swell ing. Skin: Positive for color change (fingertips white). Negative for rash. Neurological: Positive for numbness. Negative for dizziness and headaches. Arturo Wood MD personally reviewed the ROS PE: BP 142/74 | Pulse 74 | Temp 37.2 C (98.9 F) (Temporal) | Ht 1.803 m (5' 11") | Wt ( !) 169.6 kg (374 lb) | BMI 52.16 kg/m Pain-0 Physical Exam Constitutional: He appears well-developed. HENT: Nose: No nasal deformity. Mouth/Throat: Uvula is midline and mucous membranes are normal. No oropharyngeal exudate. Moist oral mucosa, no oral ulcers Eyes: Conjunctivae are normal. No scleral icterus. Cardiovascular: Normal rate. Pulmonary/Chest: Effort normal and breath sounds normal. Musculoskeletal: He exhibits edema. Musculoskeletal examination of the RIGHT and LEFT upper extremity, RIGHT and LEFT lower ext remity, spine, ribs ,pelvis ,head and neck was performed Hands-right 5th digit amputated from previous trauma (chronic). No evidence of active synov itis or dactylitis. Elbows- negative tenderness / synovitis bilaterally Feet- negative tenderness bilaterally Knees- negative tenderness bilaterally, b/l crepitus. Lymphadenopathy: He has no cervical adenopathy. Neurological: He is alert. Skin: Skin is warm and dry. No rash noted. Assessment Assessment and Plan Visit Diagnoses and Associated Orders: Aaron was seen today for rheumatology appointment. Diagnoses and all orders for this visit: Positive NICKIE (antinuclear antibody) This is a 59-year-old gentleman with multiple complex comorbidities who is here for evaluat ion of polyneuropathy seen on nerve conduction testing as well as positive NICKIE, dsDNA and SS B antibody seen on blood work testing. Clinical suspicion for a connective tissue disease process such as lupus or Sjogren's is lo w at this point given no classic clinical features, lack of sicca symptoms, skin rashes and a low titer NICKIE. Discussed with the patient the significance of a positive NICKIE in the setting of rheumatic d iseases, including the probability of having a condition in light of the history and physica l exam of patient, indications for NICKIE testing. Discussed with patient the indications for d oing complete NICKIE panel testing. Also discussed conditions that can cause a true positive an d a false positive test result. Patient amenable for further laboratory investigation at [facility] time. I reassured patient that NICKIE can be positive in 10 -25% of healthy adults and has low diag nostic utility in the absence of any other clinical features suggestive of an autoimmune pro blem. His neuropathy could be multifactorial stemming from lumbar foraminal stenosis, previous pr olonged hospital course that resulted in bilateral foot drop, polypharmacy. Recheck blood work test today. Return to clinic in 4 weeks. - CBC with Differential; Future - Comprehensive Metabolic Panel; Future - Sedimentation Rate; Future - C-Reactive Protein; Future - NICKIE, IFA; Future - DNA Double-Stranded Ab, IgG; Future - DNA Double-Stranded Ab, IgG (Crithidia Luciliae); Future - C3 and C4; Future - Urinalysis with Microscopic if Indicated; Future - Protein/Creatinine Ratio, Urine; Future - NICKIE Profile, Reflex; Future - Antinuclear Ab, Titer + Pattern; Future Chronic kidney disease, stage 3 (HCC) Continue to follow-up with nephrology. Avoid NSAIDs. SS-B antibody positive SSA antibody was negative. No sicca symptoms. Check blood work as above. Elevated C-reactive protein (CRP) Likely nonspecific. Recheck labs as above. Pain in joint, multiple sites Has history of polyarticular gout and does have tophaceous nodule on the elbow. On uric ac id lowering therapy. Check uric acid levels. - Uric Acid; Future Patient was given ample opportunity to ask questions. Patient will follow up with their primary care physician in regards to non-rheumatological symptoms listed under review of systems Patient was advised to contact our office if there are any change in their symptoms Return in about 1 month (around 06/01/2019). Note will be routed to the referring provider I,Arturo Gray MD, personally performed the services described in this documentation, wi th the scribe in my presence, and it is both accurate and complete. Dictation software Dragon/dictation services used, which may contain error for similar soun ding words even after review. Please do not hesitate to contact me for any clarification.Alanna ctronically signed by Arturo Gray MD at 05/04/2019 9:40 AM PDTdocumented in this encounter Plan of Treatment +--------+---------+ + + + | Date | Type | Specialty | Care Team | Description | +--------+---------+ + + + | 03/17/ | Office | Cardiology | Lorraine Clifton DO | | | 2020 | Visit | | [address] | | | | | | [place] | | | | | | [address] | | | | | | | | +--------+---------+ + + + + +------+--------+ + + | Name | Type | Priori | Associated Diagnoses | Date/Time | | | | ty | | | + +------+--------+ + + | Antinuclear Ab, | Lab | Routin | Positive NICKIE | 05/04/2019 9:22 AM | | Titer + Pattern | | e | (antinuclear | PDT | | | | | antibody) | | + +------+--------+ + + + +------+--------+ + + | Name | Type | Priori | Associated Diagnoses | Order Schedule | | | | ty | | | + +------+--------+ + + | Antinuclear Ab, | Lab | Routin | Positive NICKIE | 1 Occurrences | | Titer + Pattern | | e | (antinuclear | starting 05/04/2019 | | | | | antibody) | until 05/04/2020 | + +------+--------+ + + documented as of this encounter Results Urinalysis with Microscopic if Indicated (05/04/2019 9:25 AM PDT) + + + + + + | Component | Value | Ref Range | Performed | Pathologist | | | | | At | Signature | + + + + + + | Color, UA | YELLOW | | REFERENCE | | | | | | LAB | | | | | | [facility] | | | | | | LABORATORY | | + + + + + + | Clarity, UA | CLEAR | | REFERENCE | | | | | | LAB | | | | | | [facility] | | | | | | LABORATORY | | + + + + + + | Specific | 1.015 | 1.002 - 1.030 | REFERENCE | | | [place], | | | LAB | | | Urine | | | [facility] | | | | | | LABORATORY | | + + + + + + | Leukocyte | NEGATIVEComment: | NEG | REFERENCE | | | esterase, | | | LAB | | | UA | | | [facility] | | | | | | LABORATORY | | + + + + + + | Nitrite, UA | NEGATIVE | NEG | REFERENCE | | | | | | LAB | | | | | | [facility] | | | | | | LABORATORY | | + + + + + + | Urobilinoge | NORMAL | <1.1 mg/dL | REFERENCE | | | n, Ur | | | LAB | | | | | | [facility] | | | | | | LABORATORY | | + + + + + + | Protein, | NEGATIVE | NEG mg/dL | REFERENCE | | | Urine | | | LAB | | | (mg/dL) | | | [facility] | | | | | | LABORATORY | | + + + + + + | pH, Urine | 5.0 | 5.0 - 8.0 | REFERENCE | | | | | | LAB | | | | | | [facility] | | | | | | LABORATORY | | + + + + + + | Blood, UA | NEGATIVE | NEG | REFERENCE | | | | | | LAB | | | | | | [facility] | | | | | | LABORATORY | | + + + + + + | Ketones, UA | NEGATIVE | NEG mg/dL | REFERENCE | | | | | | LAB | | | | | | [facility] | | | | | | LABORATORY | | + + + + + + | Bilirubin, | NEGATIVE | NEG | REFERENCE | | | UA | | | LAB | | | | | | [facility] | | | | | | LABORATORY | | + + + + + + | Glucose, Ur | NEGATIVEComment: Testing | NEG mg/dL | REFERENCE | | | | performed at [facility];[address] | | LAB | | | | [place] | | [facility] | | | | [address];[place] [address] | | LABORATORY | | + + + + + + + + | Specimen | + + | Urine | + + + + + + + | Performing | Address | City/State/Zipcode | Phone Number | | Organization | | | | + + + + + | REFERENCE LAB | [address] | [place] | [phone] | | [facility] | [address] | [address] | | | LABORATORY | | | | + + + + + | REFERENCE LAB | [address] | [place] | | | [facility] | [address] | [address] | | | LABORATORY | | | | + + + + + Protein/Creatinine Ratio, Urine (05/04/2019 9:23 AM PDT) + + + + + + | Component | Value | Ref Range | Performed | Pathologist | | | | | At | Signature | + + + + + + | PRO/CREA | 0.168Comment: Testing | | REFERENCE | | | RATIO,URINE | performed at [facility];[address] | | LAB | | | | [facility] | | [facility] | | | | Bl;[place] [address] | | LABORATORY | | + + + + + + + + | Specimen | + + | Urine | + + + + + + + | Performing | Address | City/State/Zipcode | Phone Number | | Organization | | | | + + + + + | REFERENCE LAB | [address] [place] [address] | [place] | [phone] | | [facility] | [address] | [address] | | | LABORATORY | | | | + + + + + | REFERENCE LAB | [address] [place] [address] | [place], [place] | | | [facility] | [address] | [address] | | | LABORATORY | | | | + + + + + Uric Acid (05/04/2019 9:22 AM PDT) + + + + + + | Component | Value | Ref Range | Performed | Pathologist | | | | | At | Signature | + + + + + + | Uric Acid | 6.1Comment: Testing | 3.2 - 8.6 mg/dL | REFERENCE | | | | performed at [facility];[address] | | LAB | | | | [place] | | [facility] | | | | [address];[place] [address] | | LABORATORY | | + + + + + + + + | Specimen | + + | Blood | + + + + + + + | Performing | Address | City/State/Zipcode | Phone Number | | Organization | | | | + + + + + | REFERENCE LAB | [address] [facility] | [place] | [phone] | | [facility] | [address] | [address] | | | LABORATORY | | | | + + + + + | REFERENCE LAB | [address] [facility] | [place] | | | [facility] | [address] | [address] | | | LABORATORY | | | | + + + + + NICKIE Profile, Reflex (05/04/2019 9:22 AM PDT) + + + + + + | Component | Value | Ref Range | Performed | Pathologist | | | | | At | Signature | + + + + + + | NICKIE Screen, | NegativeComment: Testing | Negative | REFERENCE | | | Qual | performed at [facility] [address] | | LAB | | | | [address] [facility] | | [facility] | | | | [place] [address] | | LABORATORY | | + + + + + + | C ANCA | <1:20 | Neg:<1:20 titer | REFERENCE | | | | | | LAB | | | | | | [facility] | | | | | | LABORATORY | | + + + + + + | P ANCA | <1:20Comment: The | Neg:<1:20 titer | REFERENCE | | | | presence of positive | | LAB | | | | fluorescence exhibiting | | [facility] | | | | P-ANCA or C-ANCApatterns | | LABORATORY | | | | alone is not specific | | | | | | for the diagnosis of | | | | | | Mohsen'sGranulomatosis | | | | | | (WG) or microscopic | | | | | | polyangiitis. Decisions | | | | | | abouttreatment should | | | | | | not be based solely on | | | | | | ANCA IFA results. | | | | | | TheInternational ANCA | | | | | | Group Consensus | | | | | | recommends follow up | | | | | | testing ofpositive sera | | | | | | with both MA-3 and | | | | | | MPO-ANCA enzyme | | | | | | immunoassays. Asmany as | | | | | | 5% serum samples are | | | | | | positive only by | | | | | | EIA.Ref. AM J Clin | | | | | | Pathol 1999;111:507-513. | | | | | | | | | | + + + + + + | Atypical | <1:20Comment: The | Neg:<1:20 titer | REFERENCE | | | pANCA | atypical pANCA pattern | | LAB | | | | has been observed in a | | [facility] | | | | significantpercentage of | | LABORATORY | | | | patients with | | | | | | ulcerative colitis, | | | | | | primary | | | | | | sclerosingcholangitis | | | | | | and autoimmune | | | | | | hepatitis. | | | | + + + + + + | Myeloperoxi | <9.0 | 0.0 - 9.0 U/mL | REFERENCE | | | dase | | | LAB | | | Antibody | | | [facility] | | | | | | LABORATORY | | + + + + + + | Proteinase | <3.5Comment: Testing | 0.0 - 3.5 U/mL | REFERENCE | | | 3 Antibody | performed by [facility], | | LAB | | | | [address], | | [facility] | | | | [facility] [address] | | LABORATORY | | + + + + + + + + | Specimen | + + | Blood | + + + + + + + | Performing | Address | City/State/Zipcode | Phone Number | | Organization | | | | + + + + + | REFERENCE LAB | [address] [place] [address] | [place], [place] | [phone] | | [facility] | Bl[address] | [address] | | | LABORATORY | | | | + + + + + | REFERENCE LAB | [address] [place] [address] | [place], [place] | | | [facility] | Blvd. | [address] | | | LABORATORY | | | | + + + + + C3 and C4 (05/04/2019 9:22 AM PDT) + + + + + + | Component | Value | Ref Range | Performed | Pathologist | | | | | At | Signature | + + + + + + | C3 | 136 | 90 - 180 mg/dL | REFERENCE | | | COMPLEMENT | | | LAB | | | | | | [facility] | | | | | | LABORATORY | | + + + + + + | C4 | 27.7Comment: Testing | 10 - 40 mg/dL | REFERENCE | | | COMPLEMENT | performed at [facility];[address] | | LAB | | | | [place] | | [facility] | | | | [address];[place] [address] | | LABORATORY | | + + + + + + + + | Specimen | + + | Blood | + + + + + + + | Performing | Address | City/State/Zipcode | Phone Number | | Organization | | | | + + + + + | REFERENCE LAB | [address] [place] [address] | [place], [place] | [phone] | | [facility] | [address] | [address] | | | LABORATORY | | | | + + + + + | REFERENCE LAB | [address] [place] [address] | [place], [place] | | | [facility] | [address] | [address] | | | LABORATORY | | | | + + + + + DNA Double-Stranded Ab, IgG (Curt Perez) (05/04/2019 9:22 AM PDT) + + + + + + | Component | Value | Ref Range | Performed | Pathologist | | | | | At | Signature | + + + + + + | dsDNA | <1:10Comment: Reference | TITER | REFERENCE | | | (nDNA) | Range:Negative: < 1:10 | | LAB | | | titer | titerPositive: => 1:10 | | [facility] | | | | titerDouble-stranded DNA | | LABORATORY | | | | (dsDNA) antibodies of | | | | | | the IgG class arean | | | | | | accepted criterion | | | | | | ([employer] | | | | | | [employer]umatology) forthe | | | | | | diagnosis of systemic | | | | | | lupus erythematosus | | | | | | (SLE). DsDNAantibodies | | | | | | detected by Curt | | | | | | method is highly | | | | | | specific(over 95%) for | | | | | | SLE. The sensitivity | | | | | | for this method | | | | | | isapproximately 70-85% | | | | | | of patients with | | | | | | untreated SLE, and | | | | | | israrely detectable in | | | | | | other connective tissue | | | | | | diseases.Weakly-positive | | | | | | results caused by | | | | | | low-avidity antibodies | | | | | | todsDNA are not specific | | | | | | for SLE and can occur | | | | | | in a variety ofdiseases. | | | | | | The levels of IgG | | | | | | antibodies to dsDNA in | | | | | | serumare known to | | | | | | fluctuate with disease | | | | | | activity in | | | | | | lupuserythematous, often | | | | | | increasing prior to an | | | | | | increase ininflammation | | | | | | and decreasing in | | | | | | response to | | | | | | therapy.*This test has | | | | | | been developed and | | | | | | performance | | | | | | parametershave been | | | | | | validated by [facility] | | | | | | [facility] This | | | | | | test hasnot been | | | | | | approved by the U.S. | | | | | | Food and Drug | | | | | | Administration(FDA); | | | | | | however, US FDA approval | | | | | | is not required for | | | | | | clinicaluse. It is not | | | | | | intended that clinical | | | | | | diagnosis and | | | | | | patientmanagement | | | | | | decisions be made using | | | | | | these results alone.This | | | | | | test has been validated | | | | | | using serum samples. | | | | | | Themanufacturer has not | | | | | | determined the efficacy | | | | | | of this testwhen | | | | | | performed on CSF, | | | | | | plasma, joint or pleural | | | | | | fluidspecimens. The | | | | | | performance | | | | | | characteristics of this | | | | | | test weredetermined by | | | | | | [facility] | | | | | | [facility].June | | | | | | 4, 2019 dsDNA (nDNA) | | | | | | Scrn by Curt will | | | | | | be made non-orderable. | | | | | | [facility] [id number] | | | | | | dsDNA Curt perez | | | | | | IFA. For further | | | | | | information, please | | | | | | contact your local | | | | | | [facility] | | | | | | Window Machine Operator.Testing | | | | | | performed at [facility] | | | | | | [place], [address] | | | | | | [facility], [facility] | | | | | | [address],[place], [place] | | | | | | [phone]. | | | | + + + + + + + + | Specimen | + + | Blood | + + + + + + + | Performing | Address | City/State/Zipcode | Phone Number | | Organization | | | | + + + + + | REFERENCE LAB | [address] | [place] | [phone] | | [facility] | [address] | [address] | | | LABORATORY | | | | + + + + + | REFERENCE LAB | [address] | [place] | | | [facility] | [address] | [address] | | | LABORATORY | | | | + + + + + DNA Double-Stranded Ab, IgG (05/04/2019 9:22 AM PDT) + + + + + + | Component | Value | Ref Range | Performed | Pathologist | | | | | At | Signature | + + + + + + | DS DNA AB | <1Comment: | 0 - 9 IU/mL | REFERENCE | | | | | | LAB | | | | Negative | | [facility] | | | | <5 | | LABORATORY | | | | | | | | | | Equivocal | | | | | | 5 - 9 | | | | | | | | | | | | Positive | | | | | | >9Testing performed | | | | | | at [facility], [address] | | | | | | [place] | | | | | | [address] | | | | + + + + + + + + | Specimen | + + | Blood | + + + + + + + | Performing | Address | City/State/Zipcode | Phone Number | | Organization | | | | + + + + + | REFERENCE LAB | [address] | [place] | [phone] | | [facility] | [address] | [address] | | | LABORATORY | | | | + + + + + | REFERENCE LAB | [address] | [place] | | | [facility] | [address] | [address] | | | LABORATORY | | | | + + + + + NICKIE, IFA (05/04/2019 9:22 AM PDT) + + + + + + | Component | Value | Ref Range | Performed | Pathologist | | | | | At | Signature | + + + + + + | NICKIE | NegativeComment: | | REFERENCE | | | | | | LAB | | | | | | [facility] | | | | Negative <1:80 | | LABORATORY | | | | | | | | | | | | | | | | Borderline 1:80 | | | | | | | | | | | | | | | | | | Positive >1:80 | | | | + + + + + + | Please | (See Below)Comment: NICKIE | | REFERENCE | | | Note: | Multiplex methodology | | LAB | | | | was designed to detect | | [facility] | | | | up to 11 antibodiesof | | LABORATORY | | | | the 100+ antibodies that | | | | | | may be detected by NICKIE | | | | | | IFA methodology.Testing | | | | | | performed at [facility] [address] | | | | | | [facility] | | | | | | [place] [address] | | | | + + + + + + + + | Specimen | + + | Blood | + + + + + + + | Performing | Address | City/State/Zipcode | Phone Number | | Organization | | | | + + + + + | REFERENCE LAB | [address] | [place], [place] | [phone] | | [facility] | [address] | [address] | | | LABORATORY | | | | + + + + + | REFERENCE LAB | [address] | [place] | | | [facility] | [address] | [address] | | | LABORATORY | | | | + + + + + C-Reactive Protein (05/04/2019 9:22 AM PDT) + + + + + + | Component | Value | Ref Range | Performed | Pathologist | | | | | At | Signature | + + + + + + | CRP | 1.4 (H)Comment: Testing | <0.5 mg/dL | REFERENCE | | | | performed at [facility];[address] | | LAB | | | | [place] | | [facility] | | | | [address];[place] [address] | | LABORATORY | | + + + + + + + + | Specimen | + + | Blood | + + + + + + + | Performing | Address | City/State/Zipcode | Phone Number | | Organization | | | | + + + + + | REFERENCE LAB | [address] | [place] | [phone] | | [facility] | [address] | [address] | | | LABORATORY | | | | + + + + + | REFERENCE LAB | [address] | [place] | | | [facility] | [address] | [address] | | | LABORATORY | | | | + + + + + Sedimentation Rate (05/04/2019 9:22 AM PDT) + + + + + + | Component | Value | Ref Range | Performed | Pathologist | | | | | At | Signature | + + + + + + | ESR | 54 (H)Comment: Testing | 0 - 20 mm/Hr | REFERENCE | | | | performed at [facility];[address] | | LAB | | | | [place] | | [facility] | | | | Blvd;[place] [address] | | LABORATORY | | + + + + + + + + | Specimen | + + | Blood | + + + + + + + | Performing | Address | City/State/Zipcode | Phone Number | | Organization | | | | + + + + + | REFERENCE LAB | [address] [place] [address] | [place], [place] | [phone] | | [facility] | [address] | [address] | | | LABORATORY | | | | + + + + + | REFERENCE LAB | [address] [place] [address] | [place], [place] | | | [facility] | [address] | [address] | | | LABORATORY | | | | + + + + + Comprehensive Metabolic Panel (05/04/2019 9:22 AM PDT) + + + + + + | Component | Value | Ref Range | Performed | Pathologist | | | | | At | Signature | + + + + + + | Na | 140 | 135 - 145 | REFERENCE | | | | | mmol/L | LAB | | | | | | [facility] | | | | | | LABORATORY | | + + + + + + | K | 4.9 | 3.5 - 4.9 | REFERENCE | | | | | mmol/L | LAB | | | | | | [facility] | | | | | | LABORATORY | | + + + + + + | Cl | 104 | 99 - 109 mmol/L | REFERENCE | | | | | | LAB | | | | | | [facility] | | | | | | LABORATORY | | + + + + + + | CO2 | 27 | 23 - 32 mmol/L | REFERENCE | | | | | | LAB | | | | | | [facility] | | | | | | LABORATORY | | + + + + + + | Anion Gap | 14 | 5 - 20 mmol/L | REFERENCE | | | | | | LAB | | | | | | [facility] | | | | | | LABORATORY | | + + + + + + | Glucose | 128 (H) | 65 - 99 mg/dL | REFERENCE | | | | | | LAB | | | | | | [facility] | | | | | | LABORATORY | | + + + + + + | BUN | 43 (H) | 8 - 25 mg/dL | REFERENCE | | | | | | LAB | | | | | | [facility] | | | | | | LABORATORY | | + + + + + + | Creatinine | 2.5 (H) | 0.70 - 1.30 | REFERENCE | | | | | mg/dL | LAB | | | | | | [facility] | | | | | | LABORATORY | | + + + + + + | BUN/Creatin | 17 | | REFERENCE | | | ine Ratio | | | LAB | | | | | | [facility] | | | | | | LABORATORY | | + + + + + + | Calcium | 8.9 | 8.5 - 10.5 | REFERENCE | | | | | mg/dL | LAB | | | | | | [facility] | | | | | | LABORATORY | | + + + + + + | Protein, | 7.1 | 6.3 - 8.2 g/dL | REFERENCE | | | Total | | | LAB | | | | | | [facility] | | | | | | LABORATORY | | + + + + + + | Albumin | 3.8 | 3.6 - 5.0 g/dL | REFERENCE | | | | | | LAB | | | | | | [facility] | | | | | | LABORATORY | | + + + + + + | Globulin | 3.3 | 1.3 - 4.9 g/dL | REFERENCE | | | | | | LAB | | | | | | [facility] | | | | | | LABORATORY | | + + + + + + | A/G Ratio | 1.2 | 1.0 - 2.4 | REFERENCE | | | | | | LAB | | | | | | [facility] | | | | | | LABORATORY | | + + + + + + | BILIRUBIN, | 0.4 | 0.1 - 1.5 mg/dL | REFERENCE | | | TOTAL | | | LAB | | | | | | [facility] | | | | | | LABORATORY | | + + + + + + | ALK PHOS | 93 | 35 - 115 U/L | REFERENCE | | | | | | LAB | | | | | | [facility] | | | | | | LABORATORY | | + + + + + + | AST | 16 | 10 - 45 U/L | REFERENCE | | | | | | LAB | | | | | | [facility] | | | | | | LABORATORY | | + + + + + + | ALT | 23 | 10 - 65 U/L | REFERENCE | | | | | | LAB | | | | | | [facility] | | | | | | LABORATORY | | + + + + + + | Estimated | 27 (L)Comment: GFR <60: | >60 | REFERENCE | | | GFR | CHRONIC KIDNEY DISEASE, | mL/min/1.73m2 | LAB | | | | IF FOUND OVER A 3 MONTH | | [facility] | | | | PERIOD.GFR <15: KIDNEY | | LABORATORY | | | | FAILURE.FOR | | | | | | AMERICANS, MULTIPLY THE | | | | | | CALCULATED GFR BY | | | | | | 1.210.This eGFR is | | | | | | calculated using the | | | | | | MDRD IDMS traceable | | | | | | equation.Testing | | | | | | performed at [facility];[address] | | | | | | [facility] | | | | | | Blvd;[place] [address] | | | | | | | | | | + + + + + + + + | Specimen | + + | Blood | + + + + + + + | Performing | Address | City/State/Zipcode | Phone Number | | Organization | | | | + + + + + | REFERENCE LAB | [address] | [place] | [phone] | | [facility] | [address] | [address] | | | LABORATORY | | | | + + + + + | REFERENCE LAB | [address] | [place] | | | [facility] | Blvd[address] | [address] | | | LABORATORY | | | | + + + + + CBC with Differential (05/04/2019 9:22 AM PDT) + + + + + + | Component | Value | Ref Range | Performed | Pathologist | | | | | At | Signature | + + + + + + | WBC | 10.31 | 3.80 - 11.00 | REFERENCE | | | | | K/uL | LAB | | | | | | [facility] | | | | | | LABORATORY | | + + + + + + | RBC | 3.78 (L) | 4.20 - 5.70 | REFERENCE | | | | | M/uL | LAB | | | | | | [facility] | | | | | | LABORATORY | | + + + + + + | Hemoglobin | 13.0 (L) | 13.2 - 17.0 | REFERENCE | | | | | g/dL | LAB | | | | | | [facility] | | | | | | LABORATORY | | + + + + + + | Hematocrit | 38.9 (L) | 39.0 - 50.0 % | REFERENCE | | | | | | LAB | | | | | | [facility] | | | | | | LABORATORY | | + + + + + + | MCV | 103.1 (H) | 80.0 - 100.0 fl | REFERENCE | | | | | | LAB | | | | | | [facility] | | | | | | LABORATORY | | + + + + + + | MCH | 34.4 (H) | 27.0 - 34.0 pg | REFERENCE | | | | | | LAB | | | | | | [facility] | | | | | | LABORATORY | | + + + + + + | MCHC | 33.4 | 32.0 - 35.5 | REFERENCE | | | | | g/dL | LAB | | | | | | [facility] | | | | | | LABORATORY | | + + + + + + | RDW-SD | 51.6 | 37 - 53 fl | REFERENCE | | | | | | LAB | | | | | | [facility] | | | | | | LABORATORY | | + + + + + + | Platelet | 292 | 150 - 400 K/uL | REFERENCE | | | Count | | | LAB | | | | | | [facility] | | | | | | LABORATORY | | + + + + + + | MPV | 8.1 | fl | REFERENCE | | | | | | LAB | | | | | | [facility] | | | | | | LABORATORY | | + + + + + + | Diff Type | AUTOMATED | | REFERENCE | | | | | | LAB | | | | | | [facility] | | | | | | LABORATORY | | + + + + + + | % | 71.40 | % | REFERENCE | | | Neutrophils | | | LAB | | | | | | [facility] | | | | | | LABORATORY | | + + + + + + | % | 19.57 | % | REFERENCE | | | Lymphocytes | | | LAB | | | | | | [facility] | | | | | | LABORATORY | | + + + + + + | Monocyte % | 5.61 | % | REFERENCE | | | | | | LAB | | | | | | [facility] | | | | | | LABORATORY | | + + + + + + | Eosinophils | 2.95 | % | REFERENCE | | | % | | | LAB | | | | | | [facility] | | | | | | LABORATORY | | + + + + + + | Basophils % | 0.47 | % | REFERENCE | | | | | | LAB | | | | | | [facility] | | | | | | LABORATORY | | + + + + + + | Neutrophils | 7.36 | 1.90 - 7.40 | REFERENCE | | | , Absolute | | K/uL | LAB | | | | | | [facility] | | | | | | LABORATORY | | + + + + + + | Absolute | 2.02 | 1.00 - 3.90 | REFERENCE | | | Lymphocytes | | K/uL | LAB | | | | | | [facility] | | | | | | LABORATORY | | + + + + + + | Absolute | 0.58 | 0.00 - 0.80 | REFERENCE | | | Monocytes | | K/uL | LAB | | | | | | [facility] | | | | | | LABORATORY | | + + + + + + | Eosinophils | 0.30 | 0.00 - 0.50 | REFERENCE | | | , Absolute | | K/uL | LAB | | | | | | [facility] | | | | | | LABORATORY | | + + + + + + | Basophils, | 0.05Comment: Testing | 0.00 - 0.10 | REFERENCE | | | Absolute | performed at [facility];[address] | K[address]uL | LAB | | | | [place] | | [facility] | | | | [address];[place] [address] | | LABORATORY | | + + + + + + + + | Specimen | + + | Blood | + + + + + + + | Performing | Address | City/State/Zipcode | Phone Number | | Organization | | | | + + + + + | REFERENCE LAB | [address] | [place] | [phone] | | [facility] | [address] | [address] | | | LABORATORY | | | | + + + + + | REFERENCE LAB | [address] | [place] | | | [facility] | [address] | [address] | | | LABORATORY | | | | + + + + + documented in this encounter Visit Diagnoses + + | Diagnosis | + + | Positive NICKIE (antinuclear antibody) - Primary Other and unspecified nonspecific | | immunological findings | + + | Chronic kidney disease, stage 3 (HCC) | + + | SS-B antibody positive Other and unspecified nonspecific immunological findings | + + | Elevated C-reactive protein (CRP) | + + | Pain in joint, multiple sites | + + documented in this encounter
--- OUTSIDE RECORDS SUMMARY | ~2019-12-19 | XMS | Encounter Summary ---
Demographics + + + | Address | [address] | | | [place] [address] | + + + | Home Phone | | + + + | Preferred Language | Unknown | + + + | Marital Status | Single | + + + | Rastafarian Affiliation | LDS | + + + | Race | White | + + + | Ethnic Group | Not or | + + + Author + + + | Author | [facility] | + + + | Organization | [facility] | + + + | Address | Unknown | + + + | Phone | Unavailable | + + + Support + + + + + | Name | Relationship | Address | Phone | + + + + + | Toby L[place] | [place] | [address] | | | | | [place] | | | | | [address] | | + + + + + Care Team Providers + +------+ + | Care Virtualization Consultant Name | Role | Phone | + +------+ + | Sarah Carroll MD | PCP | | + +------+ + Reason for Visit AUTH/CERT +--------+--------+ + + + + | Status | Reason | Specialty | Diagnoses / | Referred By | Referred To | | | | | Procedures | Contact | Contact | +--------+--------+ + + + + | | | | Procedures | | | | | | | [place] | | | | | | | COLONOSCOPY, | | | | | | | FLEX, | | | | | | | W/BIOPSY [place] | | | | | | | | | | | | | | COLONOSCOPY, | | | | | | | YUNI URIBE BY | | | | | | | SNARE | | | | | | | TECHNIQUE | | | | | | | [place] | | | | | | | COLONOSCOPY, | | | | | | | FLEXIBLE; W | | | | | | | ABLATION OF | | | | | | | TUMOR(S), | | | | | | | POLYP(S), OR | | | | | | | OTHER | | | | | | | LESION(S) | | | | | | | [place] ANES LWR | | | | | | | INTST NDSC | | | | | | | NOS | | | +--------+--------+ + + + + Encounter Details +--------+ + + + + | Date | Type | Department | Care Team | Description | +--------+ + + + + | 07/01/ | Anesthesia | [facility] | Adolfo Ace, | | | 2018 | Event | [facility] [address] | [address] | | | | | [place] Mailcode: | [address] | | | | | [facility] | [place], [place] | | | | | Health and Healing, | [address] | | | | | Building [address] | [phone] | | | | | [place], [place] | | | | | | [address] | Radha Link CRNA | | | | | [phone] | [address] | | | | | | [address] | | | | | | [place], [place] | | | | | | [address] | | | | | | [phone] | | | | | | | | +--------+ + + [...] | Total | + + + | lidocaine 2% | 40 mg | + + + | propofol (DIPRIVAN) 200 mg | 420,840 mcg | + + + | propofol | 20 mg | + + + | dexMEDEtomidine (PRECEDEX) 400 | 274.96 mcg | | mcg in NaCl 0.9 % (NS) 100 mL (4 | | | mcg/mL) IV infusion | | + + + | ondansetron | 4 mg | + + + | sodium chloride 0.9 % (NS) IV | 900 mL | | infusion | | + + + + + | Name | + + | O2 FR Avance (Total Liters) | + + | O2 Flow Rate (Total Liters) | + + + + | No blood administrations on file. | + + +--------+ + + + | Type | Details | Placement | Removal | +--------+ + + + | Periph | 07/01/19; 954; Right; | 07/01/19954 by | 07/11/19 1534 by | | eral | Antecubital; 20 g; Positive; | Danny Weber RN | Shahid Ruiz RN | | IV | 07/11/19; 1534; Per | | | | | patient/family request | | | +--------+ + + + [...] [address] | | | | | | [place], [place] | | | | | | [address] | | | | | | [phone] | | | | | | | | +--------+---------+ + + + documented as of this encounter Visit Diagnoses Not on filedocumented in this encounter Administered Medications + + + + + +------+ | Medication Order | MAR | Action | Dose | Rate | Site | | | Action | Date | | | | + + + + + +------+ | dexMEDEtomidine (PRECEDEX) 400 | Rate/Dos | 07/01/20 | 1 | 42 mL/hr | | | mcg in NaCl 0.9 % (NS) 100 mL (4 | e Change | 19 11:51 | mcg/kg/h | | | | mcg/mL) IV infusion | | AM PST | r | | | | INTRAPROCEDURE CONTINUOUS PRN, | | | | | | | Starting Sat07/01/19 at 1028, | | | | | | | Until Sat07/01/19 at 1235 | | | | | | + + + + + +------+ + + + +-------+---+ | Rate/Dose Change | 07/01/20 | 0.8 | 33.6 | | | | 19 10:55 | mcg/kg/h | mL/hr | | | | AM PST | r | | | + + + +-------+---+ | Rate/Dose Change | 11/20/20 | 0.6 | 25.2 | | | | 19 10:46 | mcg/kg/h | mL/hr | | | | AM PST | r | | | + + + +-------+---+ +---+---+ | | | +---+---+ + +-------+ +-------+---+---+ | lidocaine (XYLOCAINE MPF) 2 % | Given | 07/01/20 | 40 mg | | | | (20 mg/mL) injection | | 19 10:14 | | | | | INTRAPROCEDURE PRN, Starting Wed | | AM PST | | | | | 07/01/19 at 1014, Until Wed | | | | | | | 07/01/19 at 1235 | | | | | | + +-------+ +-------+---+---+ +---+---+ | | | +---+---+ + +-------+ +------+---+---+ | ondansetron (ZOFRAN) injection | Given | 07/01/20 | 4 mg | | | | INTRAPROCEDURE PRN, Starting Wed | | 19 10:44 | | | | | 07/01/19 at 1044, Until Sat | | AM PST | | | | | 07/01/19 at 1235 | | | | | | + +-------+ +------+---+---+ +---+---+ | | | +---+---+ + + + + +---+---+ | propofol (DIPRIVAN) 200 mg | Rate/Dos | 07/01/20 | 5 | | | | INTRAPROCEDURE CONTINUOUS PRN, | e Change | 19 11:16 | mcg/kg/m | | | | Starting Sat07/01/19 at 1012, | | AM PST | in | | | | Until Sat07/01/19 at 1235 | | | | | | + + + + +---+---+ + + + +---+---+ | Rate/Dose Change | 07/01/20 | 10 | | | | | 19 10:38 | mcg/kg/m | | | | | AM PST | in | | | + + + +---+---+ | Rate/Dose Change | 07/01/20 | 15 | | | | | 19 10:28 | mcg/kg/m | | | | | AM PST | in | | | + + + +---+---+ +---+---+ | | | +---+---+ + +-------+ +-------+---+---+ | propofol (DIPRIVAN) injection | Given | 07/01/20 | 20 mg | | | | INTRAPROCEDURE PRN, Starting Wed | | 19 10:20 | | | | | 07/01/19 at 1020, Until Wed | | AM PST | | | | | 07/01/19 at 1235 | | | | | | + +-------+ +-------+---+---+ +---+---+ | | | +---+---+ + + + +---+---+---+ | sodium chloride 0.9 % (NS) IV | given by | 07/01/20 | | | | | infusion 10 mL/hr, intravenous, | | 19 12:12 | | | | | CONTINUOUS, Starting 07/01/19 | anesthes | PM PST | | | | | at 0930, Until Sat07/01/19 at | iology | | | | | | 2105 | | | | | | + + + +---+---+---+ + + +---+---+---+ | given by anesthesiology | 07/01/20 | | | | | | 19 11:10 | | | | | | AM PST | | | | + + +---+---+---+ | given by anesthesiology | 07/01/20 | | | | | | 19 10:40 | | | | | | AM PST | | | | + + +---+---+---+ +---+---+ | | | +---+---+ documented in this encounter"
--- OUTSIDE RECORDS SUMMARY | ~2019-12-19 | XMS | Encounter Summary ---
Demographics + + + | Address | [address] | | | [place] [address] | + + + | Home Phone | | + + + | Preferred Language | Unknown | + + + | Marital Status | Single | + + + | Scientology Affiliation | LDS | + + + | Race | White | + + + | Ethnic Group | Not or | + + + Author + + + | Author | [facility] | + + + | Organization | [facility] | + + + | Address | Unknown | + + + | Phone | Unavailable | + + + Support + + + + + | Name | Relationship | Address | Phone | + + + + + | Toby Latham | [place] | [address] | | | | | [place] | | | | | [address] | | + + + + + Care Team Providers + +------+ + | Care Police Lieutenant Name | Role | Phone | + [...] + + + | | | | | | | +--------+--------+ + + + + Encounter Details +--------+ + + + + | Date | Type | Department | Care Team | Description | +--------+ + + + + | 04/14/ | Anesthesia | [facility] | Paddy Pearson, | | | 2019 | Event | [facility] [address] | DO [address] | | | | | [place] Mailcode: | [address] | | | | | [address] for | [place], [place] | | | | | Health and Healing, | [address] | | | | | [facility] | [phone] | | | | | [place], [place] | | | | | | [address] | | | | | | [phone] | | | +--------+ + + + + Anesthesia Record + + + + + | Procedure Name | Responsible | Anesthesia Start | Anesthesia Stop Time | | | Anesthesiologist | Time | | + + + + + | COLONOSCOPY | Paddy Pearson DO | 04/14/19 1218 | 04/14/19 1245 | + + + + + +----+---+ + + | Da | T | Event | Comment | | te | i | | | | | m | | | | | e | | | +----+---+ + + | 09 | 1 | Eq Check | Anesthesia machine checked Equipment verified | | /0 | 1 | | | | 3/ | 5 | | | | 20 | 9 | | | | 19 | | | | +----+---+ + + | | 1 | Pt. Check | Prior to anesthesia start, pt. Identified, examined, chart | | | 1 | | reviewed, PARQ held, anesthetic plan made or approved by | | | 5 | | attending anesthesiologist. NPO status confirmed as appropriate | | | 9 | | for procedure Preoperative evaluation: unchanged | +----+---+ + + | | 1 | Preprocedur | Pt ID confirmed, informed consent obtained, insertion site | | | 1 | e Checklist | marked, equipment available | | | 5 | | | | | 9 | | | +----+---+ + + | | 1 | An Start | | | | 2 | | | | | 1 | | | | | 8 | | | +----+---+ + + | | 1 | Vitals | Monitors applied Vital signs checked Patient ready for anesthesia | | | 2 | Checked | | | | 2 | | | | | 2 | | | +----+---+ + + | | 1 | Abx held | Contraindicated, or not indicated for this procedure, or already | | | 2 | Medical or | receiving antibiotics | | | 2 | Surgical | | | | 3 | Reason | | +----+---+ + + | | 1 | Vitals | Monitors applied Vital signs checked Patient ready for anesthesia | | | 2 | Checked | | | | 2 | | | | | 5 | | | +----+---+ + + | | 1 | Ready | | | | 2 | | | | | 2 | | | | | 6 | | | +----+---+ + + | | 1 | Incision | | | | 2 | | | | | 3 | | | | | 0 | | | +----+---+ + + | | 1 | Surgery end | | | | 2 | | | | | 3 | | | | | 7 | | | +----+---+ + + | | 1 | Anesthesia | | | | 2 | End | | | | 4 | | | | | 5 | | | +----+---+ + + | | 1 | Quick Note | Very difficult to sedate- would consider ETT in the future | | | 2 | | | | | 4 | | | | | 5 | | | +----+---+ + + | | 1 | PACU Rpt | | | | 2 | Given | | | | 4 | | | | | 7 | | | +----+---+ + + +------+ | Meds | +------+ + +--------+ | Name | Total | + +--------+ | propofol | 100 mg | + +--------+ + + | Name | + + | O2 Flow Rate (Total Liters) | + + + + | No blood administrations on file. | + + +--------+ + + + | Type | Details | Placement | Removal | +--------+ + + + | Periph | Paddy Pearson; Right; Hand; 22 | 04/14/19 1200 by | 04/14/19 1419 by | | aranzal | g; Yes; No; Positive; 04/14/19; | | Teresita Jerez RN | | IV | 1419 | | | +--------+ + + + [...] Rd | | | | | | [place], [place] | | | | | | [address] | | | | | | [phone] | | | | | | | | +--------+---------+ + + + documented as of this encounter Visit Diagnoses Not on filedocumented in this encounter Administered Medications + +--------+ +-------+------+------+ | Medication Order | MAR | Action | Dose | Rate | Site | | | Action | Date | | | | + +--------+ +-------+------+------+ | propofol (DIPRIVAN) injection | Given | 04/14/20 | 30 mg | | | | INTRAPROCEDURE PRN, Starting Tue | | 19 12:34 | | | | | 04/14/19 at 1230, Until 04/14/19 | | PM PDT | | | | | at 1245 | | | | | | + +--------+ +-------+------+------+ +-------+ +-------+---+---+ | Given | 04/14/20 | 70 mg | | | | | 19 12:30 | | | | | | PM PDT | | | | +-------+ +-------+---+---+ +---+---+ | | | +---+---+ documented in this encounter"
--- OUTSIDE RECORDS SUMMARY | ~2019-12-19 | XMS | Encounter Summary ---
Demographics + + + | Address | [address] [address] | | | [place] [address] | + + + | Home Phone | | + + + | Preferred Language | Unknown | + + + | Marital Status | Single | + + + | Restorationism Affiliation | [id number] | + + + | Race | Unknown | + + + | Ethnic Group | Unknown | + + + Author + + + | Author | [facility] | | | and [place] | + + + | Organization | [facility] | | | [...] Team Providers + +------+ + | Care Boating Safety Officer Name | Role | Phone | + +------+ + | Sarah Carroll MD | PCP | | + +------+ + Encounter Details +--------+ + + + + | Date | Type | Department | Care Team | Description | +--------+ + + + + | 07/23/ | Orders Only | [facility] | Sarah Carroll V, | | | 2017 | | CONVERSION [address] | [address] | | | | | [place] | [place] | | | | | [place], [place] | [address] | | | | | [address] | | | | | | [phone] | | | +--------+ + + + [...] [place] | | | | | | [address] | | | | | | | | +--------+---------+ + + + documented as of this encounter Procedures + +--------+ + + + | Procedure Name | Priori | Date/Time | Associated Diagnosis | Comments | | | ty | | | | + +--------+ + + + | ECHO INTERPRETATION | Routin | 07/23/2017 | | Results for this | | OF OUTSIDE FILMS | e | 9:10 AM | | procedure are in the | | | | PST | | results section. | + +--------+ + + + documented in this encounter Results ECHO Interpretation of Outside Films (07/23/2017 9:10 AM PST) + + | Specimen | + + | | + + + + + | Impressions | Performed At | + + + | 1. Overall left ventricular systolic function is normal with, an EF | | | between 60 - 65 %. This has improved from an EF of 40-45% on the | | | previous echocardiographic study, done 02/16/16. 2. There is moderate | | | concentric left ventricular hypertrophy, unchanged from the prior | | | study. 3. The diastolic filling pattern indicates impaired relaxation | | | consistent with mild dysfunction (Grade I). 4. No significant | | | valvular abnormality. 4. The right ventricle is normal in size and | | | function. | | + + + + + + | Narrative | Performed At | + + + | Patient Name: Aaron Latham Date of : 1960 | | | Performing Physician: PRAFUL CRUZ MD | | | | | | INDICATIONS CONCLUSIONS 1. Overall | | | left ventricular systolic function is normal with, an EF between 60 - | | | 65 %. This has improved from an EF of 40-45% on the previous | | | echocardiographic study, done 02/16/16. 2. There is moderate concentric | | | left ventricular hypertrophy, unchanged from the prior study. 3. The | | | diastolic filling pattern indicates impaired relaxation consistent | | | with mild dysfunction (Grade I). 4. No significant valvular | | | abnormality. 4. The right ventricle is normal in size and function. | | | FINDINGS -------- ECG rhythm: Sinus rhythm. Atrial fibrillation | | | was present during the previous study. Study: A 2-dimensional | | | transthoracic echocardiogram with m-mode, spectral and color flow | | | Doppler was perfomed. Study: This was a technically adequate study. | | | Left Ventricle: Overall left ventricular systolic function is normal | | | with, an EF between 60 - 65 %. This has improved from an EF of | | | 40-45% on the previous echocardiographic study, done 02/16/16. Left | | | Ventricle: The left ventricle cavity size is normal. Left Ventricle: | | | There is moderate concentric left ventricular hypertrophy. Left | | | Ventricle: No regional wall motion abnormalities. Left Ventricle: The | | | diastolic filling pattern indicates impaired relaxation consistent | | | with mild dysfunction (Grade I). Right Ventricle: The right ventricle | | | is normal in size and function. Left Atrium: The left atrium is | | | normal in size. It was moderately enlarged on the prior study. | | | Right Atrium: The right atrium is mildly enlarged. It was moderately | | | enlarged on the prior study. Aortic Valve: The aortic valve is | | | trileaflet and appears structurally normal. Aortic Valve: Trace | | | amount of aortic regurgitation. Aortic Valve: There is no evidence of | | | aortic stenosis. Mitral Valve: Normal appearing mitral valve. | | | Mitral Valve: No mitral regurgitation. Mitral Valve: No evidence of | | | MVP or mitral stenosis. Tricuspid Valve: The tricuspid valve appears | | | structurally normal. Tricuspid Valve: Trace tricuspid regurgitation | | | present. Tricuspid Valve: Pulmonary artery systolic pressure could | | | not be assessed due to the absence of adequate TR jet. It was | | | estimated at 19-24 mm Hg on the previou study. Pulmonic Valve: The | | | pulmonic valve is normal. Pulmonic Valve: Trace/mild pulmonic | | | regurgitation. Pericardium: There is no pericardial effusion. | | | IVC/Hepatic Veins: The IVC is normal size (1.5-2.5cm) and collapses | | | >50% with sniff, consistent with central venous pressures of 5-10mmHg. | | | Aorta: The ascending aorta is dilated measuring up to 4.2cm. Mass: | | | No mass visualized Thrombus: No clot visualized Thrombus: No | | | vegetation visualized. Septum: No ASD observed. Septum: No VSD | | | observed. MEASUREMENTS Ao asc: 4.22 cm Ao | | | Diam: 3.95 cm Ao sinus: 3.[address] junct: 3.66 cm IVC: | | | 1.82 cm LA Diam: 4.14 cm LA Major: 5.38 cm EDV(Teich): | | | 133.86 ml IVSd: 1.51 cm LVIDd: 5.27 cm LVPWd: 1.53 cm | | | LVOT Area: 3.98 cm2 LVOT Diam: 2.25 cm %FS: 29.74 % | | | EF(Teich): 56.41 % ESV(Teich): 58.34 ml LVIDs: 3.70 cm | | | SV(Teich): 75.52 ml RA Major: 5.28 cm RV Major: 9.23 cm | | | RVIDd: 3.32 cm LVEF MOD A2C: 59.79 % SV MOD A2C: 92.67 ml | | | LVEF MOD A4C: 59.24 % SV MOD A4C: 96.43 ml EF Biplane: | | | 56.69 % LVEDV MOD BP: 176.69 ml LVESV MOD BP: 76.51 ml LVEDV | | | MOD A2C: 154.98 ml LVLd A2C: 9.50 cm LVEDV MOD A4C: 162.77 | | | ml LVLd A4C: 10.01 cm LVESV MOD A2C: 62.30 ml LVLs A2C: | | | 7.37 cm LVESV MOD A4C: 66.33 ml LVLs A4C: 8.36 cm LAESV(A-L): | | | 52.87 ml LAESV Index (A-L): 19.51 ml/m2 LAAs A2C: 15.25 | | | cm2 LAESV A-L A2C: 42.23 ml LALs A2C: 4.67 cm LAAs A4C: | | | 19.09 cm2 LAESV A-L A4C: 57.52 ml LALs A4C: 5.38 cm RAAs: | | | 18.09 cm2 RAESV A-L: 55.31 ml RAESV MOD: 52.35 ml RALs: | | | 5.02 cm TAPSE: 2.41 cm AV maxP.54 mmHg AV meanPG: | | | 5.73 mmHg AV Vmax: 1.62 m/s AV Vmean: 1.12 m/s AV VTI: | | | 27.29 cm CRISTINA Vmax: 3.41 cm2 CRISTINA (VTI): 4.05 cm2 AVAI Vmax: | | | 0.00 cm2/m2 AVAI (VTI): 0.00 cm2/m2 LVOT maxP.71 mmHg | | | LVOT meanP.84 mmHg LVSI Dopp: 40.80 ml/m2 LVSV Dopp: | | | 110.56 ml LVOT Vmax: 1.38 m/s LVOT Vmean: 1.04 m/s LVOT VTI: | | | 27.72 cm MV A Zack: 0.79 m/s MV DecT: 349.62 ms MV E Zack: | | | 0.74 m/s MV E/A Ratio: 0.93 MV PHT: 101.39 ms MVA By PHT: | | | 2.16 cm2 Septal e': 0.04 m/s Septal E/e': 16.78 Lateral | | | e': 0.05 m/s Lateral E/e': 14.38 Regulatory Specialist: | | | Authenticated by: PRAFUL CRUZ MD Report Date/Time: -- | | | [id number] | | + + + + + | Procedure Note | + + | Ethan, Rad Conversion - 04/02/2019 7:43 PM PDT Patient Name: Paras Latham of | | : 1960 Performing Physician: PRAFUL CRUZ, | | MD INDICATIONS | | CONCLUSIONS 1. Overall left ventricular systolic function is normal with, an | | EF between 60 - 65 %. This has improved from an EF of 40-45% on the previous | | echocardiographic study, done 02/16/16.2. There is moderate concentric left ventricular | | hypertrophy, unchanged from the prior study.3. The diastolic filling pattern indicates | | impaired relaxation consistent with mild dysfunction (Grade I). 4. No significant | | valvular abnormality.4. The right ventricle is normal in size and function. | | FINDINGS--------ECG rhythm: Sinus rhythm. Atrial fibrillation was present during the | | previous study.Study: A 2-dimensional transthoracic echocardiogram with m-mode, spectral | | and color flow Doppler was perfomed.Study: This was a technically adequate study.Left | | Ventricle: Overall left ventricular systolic function is normal with, an EF between 60 - | | 65 %. This has improved from an EF of 40-45% on the previous echocardiographic study, | | done 02/16/16.Left Ventricle: The left ventricle cavity size is normal.Left Ventricle: | | There is moderate concentric left ventricular hypertrophy.Left Ventricle: No regional | | wall motion abnormalities.Left Ventricle: The diastolic filling pattern indicates | | impaired relaxation consistent with mild dysfunction (Grade I).Right Ventricle: The | | right ventricle is normal in size and function.Left Atrium: The left atrium is normal in | | size. It was moderately enlarged on the prior study.Right Atrium: The right atrium is | | mildly enlarged. It was moderately enlarged on the prior study.Aortic Valve: The aortic | | valve is trileaflet and appears structurally normal.Aortic Valve: Trace amount of | | aortic regurgitation.Aortic Valve: There is no evidence of aortic stenosis.Mitral Valve: | | Normal appearing mitral valve.Mitral Valve: No mitral regurgitation.Mitral Valve: No | | evidence of MVP or mitral stenosis.Tricuspid Valve: The tricuspid valve appears | | structurally normal.Tricuspid Valve: Trace tricuspid regurgitation present.Tricuspid | | Valve: Pulmonary artery systolic pressure could not be assessed due to the absence of | | adequate TR jet. It was estimated at 19-24 mm Hg on the previou study.Pulmonic Valve: | | The pulmonic valve is normal.Pulmonic Valve: Trace/mild pulmonic | | regurgitation.Pericardium: There is no pericardial effusion.IVC/Hepatic Veins: The IVC | | is normal size (1.5-2.5cm) and collapses >50% with sniff, consistent with central venous | | pressures of 5-10mmHg.Aorta: The ascending aorta is dilated measuring up to 4.2cm.Mass: | | No mass visualizedThrombus: No clot visualizedThrombus: No vegetation | | visualized.Septum: No ASD observed.Septum: No VSD observed. MEASUREMENTS Ao | | asc: 4.22 cmAo Diam: 3.95 cmAo sinus: 3.[address] junct: 3.66 cmIVC: 1.82 | | cmLA Diam: 4.14 cmLA Major: 5.38 cmEDV(Teich): 133.86 mlIVSd: 1.51 cmLVIDd: | | 5.27 cmLVPWd: 1.53 cmLVOT Area: 3.98 [id number] Diam: 2.25 cm%FS: 29.74 %EF(Teich): | | 56.41 %ESV(Teich): 58.34 mlLVIDs: 3.70 cmSV(Teich): 75.52 mlRA Major: 5.28 | | cmRV Major: 9.23 cmRVIDd: 3.32 cmLVEF MOD A2C: 59.79 %SV MOD A2C: 92.67 mlLVEF | | MOD A4C: 59.24 %SV MOD A4C: 96.43 mlEF Biplane: 56.69 %LVEDV MOD BP: 176.69 | | mlLVESV MOD BP: 76.51 mlLVEDV MOD A2C: 154.98 mlLVLd A2C: 9.50 cmLVEDV MOD A4C: | | 162.77 mlLVLd A4C: 10.01 cmLVESV MOD A2C: 62.30 mlLVLs A2C: 7.37 cmLVESV MOD A4C: | | 66.33 mlLVLs A4C: 8.36 cmLAESV(A-L): 52.87 mlLAESV Index (A-L): 19.51 ml/m2LAAs | | A2C: 15.25 [id number] A-L A2C: 42.23 mlLALs A2C: 4.67 cmLAAs A4C: 19.09 [id number] | | A-L A4C: 57.52 mlLALs A4C: 5.38 cmRAAs: 18.09 [id number] A-L: 55.31 mlRAESV MOD: | | 52.35 mlRALs: 5.02 cmTAPSE: 2.41 cmAV maxP.54 mmHgAV meanP.73 mmHgAV | | Vmax: 1.62 m/Kristy Vmean: 1.12 m/Kristy VTI: 27.29 cmAVA Vmax: 3.41 cm2AVA (VTI): | | 4.05 [id number] Vmax: 0.00 cm2/m2AVAI (VTI): 0.00 cm2/m2LVOT maxP.71 mmHgLVOT | | meanP.84 mmHgLVSI Dopp: 40.80 ml/m2LVSV Dopp: 110.56 mlLVOT Vmax: 1.38 | | m/sLVOT Vmean: 1.04 m/sLVOT VTI: 27.72 cmMV A Zack: 0.79 m/sMV DecT: 349.62 msMV | | E Zack: 0.74 m/sMV E/A Ratio: 0.93MV PHT: 101.39 msMVA By PHT: 2.16 [id number] e': | | 0.04 m/sSeptal E/e': 16.78Lateral e': 0.05 m/sLateral E/e': 14.38 | | Regulatory Specialist:Authenticated by: Tiesha BOOTHE Date/Time: -- | | [id number] IMPRESSION: 1. Overall left ventricular systolic function is | | normal with, an EF between 60 - 65 %. This has improved from an EF of 40-45% on the | | previous echocardiographic study, done 02/16/16.2. There is moderate concentric left | | ventricular hypertrophy, unchanged from the prior study.3. The diastolic filling pattern | | indicates impaired relaxation consistent with mild dysfunction (Grade I). 4. No | | significant valvular abnormality.4. The right ventricle is normal in size and function. | |LA Diam: 4.14 cm | |LA Major: 5.38 cm | |EDV(Teich): 133.86 ml | |IVSd: 1.51 cm | |LVIDd: 5.27 cm | |LVPWd: 1.53 cm | |LVOT Area: 3.98 cm2 | |LVOT Diam: 2.25 cm | |%FS: 29.74 % | |EF(Teich): 56.41 % | |ESV(Teich): 58.34 ml | |LVIDs: 3.70 cm | |SV(Teich): 75.52 ml | |RA Major: 5.28 cm | |RV Major: 9.23 cm | |RVIDd: 3.32 cm | |LVEF MOD A2C: 59.79 % | |SV MOD A2C: 92.67 ml | |LVEF MOD A4C: 59.24 % | |SV MOD A4C: 96.43 ml | |EF Biplane: 56.69 % | |LVEDV MOD BP: 176.69 ml | |LVESV MOD BP: 76.51 ml | |LVEDV MOD A2C: 154.98 ml | |LVLd A2C: 9.50 cm | |LVEDV MOD A4C: 162.77 ml | |LVLd A4C: 10.01 cm | |LVESV MOD A2C: 62.30 ml | |LVLs A2C: 7.37 cm | |LVESV MOD A4C: 66.33 ml | |LVLs A4C: 8.36 cm | |LAESV(A-L): 52.87 ml | |LAESV Index (A-L): 19.51 ml/m2 | |LAAs A2C: 15.25 cm2 | |LAESV A-L A2C: 42.23 ml | |LALs A2C: 4.67 cm | |LAAs A4C: 19.09 cm2 | |LAESV A-L A4C: 57.52 ml | |LALs A4C: 5.38 cm | |RAAs: 18.09 cm2 | |RAESV A-L: 55.31 ml | |RAESV MOD: 52.35 ml | |RALs: 5.02 cm | |TAPSE: 2.41 cm | |AV maxP.54 mmHg | |AV meanP.73 mmHg | |AV Vmax: 1.62 m/s | |AV Vmean: 1.12 m/s | |AV VTI: 27.29 cm | |CRISTINA Vmax: 3.41 cm2 | |CRISTINA (VTI): 4.05 cm2 | |AVAI Vmax: 0.00 cm2/m2 | |AVAI (VTI): 0.00 cm2/m2 | |LVOT maxP.71 mmHg | |LVOT meanP.84 mmHg | |LVSI Dopp: 40.80 ml/m2 | |LVSV Dopp: 110.56 ml | |LVOT Vmax: 1.38 m/s | |LVOT Vmean: 1.04 m/s | |LVOT VTI: 27.72 cm | |MV A Zack: 0.79 m/s | |MV DecT: 349.62 ms | |MV E Zack: 0.74 m/s | |MV E/A Ratio: 0.93 | |MV PHT: 101.39 ms | |MVA By PHT: 2.16 cm2 | |Septal e': 0.04 m/s | |Septal E/e': 16.78 | |Lateral e': 0.05 m/s | |Lateral E/e': 14.38 | | | |Regulatory Specialist: | |Authenticated by: PRAFUL CRUZ MD | |Report Date/Time: -- [id number] | | | |IMPRESSION: | |1. Overall left ventricular systolic function is normal with, an EF between 60 - 65 %. Thi s has improved from an EF of 40-45% on the previous echocardiographic study, done 02/16/16. | |2. There is moderate concentric left ventricular hypertrophy, unchanged from the prior stud y. | |3. The diastolic filling pattern indicates impaired relaxation consistent with mild dysfunc tion (Grade I). 4. No significant valvular abnormality. | |4. The right ventricle is normal in size and function. | + + documented in this encounter Visit Diagnoses Not on filedocumented in this encounter"
--- OUTSIDE RECORDS SUMMARY | ~2019-12-19 | XMS | Encounter Summary ---
Demographics + + + | Address | [address] [address] | | | [place] [address] | + + + | Home Phone | | + + + | Preferred Language | Unknown | + + + | Marital Status | Single | + + + | Religion Affiliation | 1077 | + + + | Race | Unknown | + + + | Ethnic Group | Unknown | + + + Author + + + | Author | [facility] | | | and [place] | + + + | Organization | [facility] | | | and [...] Team Providers + +------+ + | Care Choir Director Name | Role | Phone | + +------+ + | Sarah Carroll MD | PCP | | + +------+ + Reason for Referral Diagnostic/Screening (Routine) +--------+--------+ + + + + | Status | Reason | Specialty | Diagnoses / | Referred By | Referred To | | | | | Procedures | Contact | Contact | +--------+--------+ + + + + | Closed | | | Diagnoses | [place], | [facility] | | | | | Paroxysmal | Ileana Gonzalez, | HOSPITAL | | | | | atrial | [employer] | | | | | fibrillation | [address] | [place] | | | | | (HCC) | [address] | [place], [place] | | | | | Chronic | [place] | [address] | | | | | combined | [address] | Phone: | | | | | systolic and | Phone: | [phone] | | | | | diastolic | [phone] | Fax: | | | | | congestive | Fax: | [phone] | | | | | heart | [phone] | | | | | | failure | | | | | | | (HCC) | | | | | | | Essential | | | | | | | hypertension | | | | | | | with goal | | | | | | | blood | | | | | | | pressure | | | | | | | less than | | | | | | | 130/80 | | | | | | | Bilateral | | | | | | | leg edema | | | | | | | Ascending | | | | | | | aorta | | | | | | | dilatation | | | | | | | (HCC) | | | | | | | Procedures | | | | | | | ECHO | | | | | | | Complete | | | +--------+--------+ + + + + Reason for Visit + + + | Reason | Comments | + + + | Follow-up, Office | 6 month | | Visit | | + + + Evaluate & Treat (Routine) + +--------+ + + + + | Status | Reason | Specialty | Diagnoses / | Referred By | Referred To | | | | | Procedures | Contact | Contact | + +--------+ + + + + | Authorized | | Family Nurse | Diagnoses | [place], | [place], | | | | Practitioner | Chronic | Sarah Gallegos MD | Ileana Gonzalez, | | | | / Cardiology | combined | [address] | [address] [employer] [address] | | | | | systolic | [address] | [place] | | | | | (congestive) | [place], | [address] | | | | | and | [place] [address] | [place] | | | | | diastolic | Phone: | [phone] Phone: | | | | | (congestive) | [phone] | [phone] | | | | | heart | Fax: | Fax: | | | | | failure | [phone] | [phone] | | | | | (HCC) 6 | | | | | | | month f/u | | | | | | | Procedures | | | | | | | SD OFFICE | | | | | | [...] Description | +--------+---------+ + + + | 06/01/ | Office | [facility] | Ileana Henson | Paroxysmal atrial | | 2019 | Visit | CARDIOLOGY [place] | [address] | fibrillation (HCC) | | | | [address] | [place] [address] | (Primary Dx); | | | | [address] | [place] [address] | Chronic combined | | | | [place] | [phone] | systolic and | | | | [address] | | diastolic congestive | | | | [phone] | | heart failure | | | [...] left | | | | | | nephrectomy; | | | | | | Angiomyolipoma of | | | | | | left kidney | +--------+---------+ + + + Social History [...] +------+---+---+ + + | Comments: quit in 2015 | + + + + +---------+ + [...] + + + | Blood Pressure | 120/60 | 06/01/2019 10:52 AM | | | | | PDT | | + + + + + | Pulse | 83 | 06/01/2019 10:52 AM | | | | | PDT | | + + + + + | Temperature | - | - | | + + + + + | Respiratory Rate | - | - | | + + + + + | Oxygen Saturation | 95% | 06/01/2019 10:52 AM | | | | | PDT | | + + + + + | Inhaled Oxygen | - | - | | | Concentration | | | | + + + + + | Weight | 167.6 kg (369 lb 8 | 06/01/2019 10:52 AM | | | | oz) | PDT | | + + + + + | Height | 180.3 cm (5' 11") | 06/01/2019 10:52 AM | | | | | PDT | | + + + + + | Body Mass Index | 51.53 | 06/01/2019 10:52 AM | | | | | PDT [...] Instructions Patient Instructions Ileana Henson FNP - 06/01/2019 11:00 AM PDTI have ordered you an Echo to be done at [facility] I made changes to medications : take torsemide as ordered by taking both tablets in the mor satya , no other changes See me back in 6 weeks documented in this encounter Progress Notes Ileana Henson FNP - 06/01/2019 11:00 AM PDTFormatting of this note might be differe nt from the original. Date of visit: 06/01/2019 Primary Care Physician: Sarah Carroll MD CHIEF COMPLAINT: Chief Complaint Patient presents with Follow-up, Office Visit 6 month HISTORY OF PRESENT ILLNESS: Mr. Aaron Latham is a 59 -year-old man who is here today for 6 month follow-up. He has a history of heart failure, persistent atrial fibrillation, hypertension, mixed hyperlipidemia, chronic kidney disease stage II and renal problems noted to be EAMON sensitiv e. He is managed on Coumadin for his [id number] 2 VASC score of 2 which is managed by the [facility] Coumadin clinic. He was hospitalized in July 2017 at [facility] for acute GI bleeding, where a mass [...] surgery 08/16/2017 by , colorectal surgeon in [place], with low anterior resection with open approach, did not require any Chemo or radiation, He also followed up Dr. 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 They continue to monitor his right kidney for angiomyolipoma. His current and previous testing and procedures are detailed below He continues to be followed by Dr. Ulloa for his chronic kidney disease, and last seen by him in February, and note reviewed, and no changes to medications but documented ongoing decline in renal function.. He is also seen by Dr. Malhotra for back pain and peripheral neuropathy with foot drop, and last seen by him 03/10/2019, and had referral Neurology and rheumatology. He reports today that overall he has been stable, though troubled by gout, joint stiffnes s, and weight increased again. His lowest weight was 324 pounds after he had been [facility], but has struggled to remain less than 350 pounds since then, was 369 pounds today. He continues to have some mild lower extremity edema, but denies any chest pains palpita tions, dizziness, or syncope. He reports he has mild dyspnea with more extreme exertion, no t at rest, and he attributes this to weight gain and being deconditioned. He denies any signs or symptoms of stroke or TIA, and reports his INR has been therapeutic on his Coumadin dosing stable, and denies any bleeding. He reports he had a colonoscopy performed at [facility] last month, but needs to be repeated, as prep not effective enough. He also followed up with outreach specialist at [facility] about his abnormal nerve conduction with peripheral neuropathy, and he suggested referral to phys ical therapy and to follow-up with a spine surgeon with repeat MRI prior to appointment. He also noted likely poor prognosis of chronic neurological deficits and that he is a poor gini gical candidate. He brought in a log of his home heart rate and blood pressure, which shows a systolic blood pressure in April of 116-147, and predominantly in the 120-130 mmHg range heart rates i n the 60 to 70 bpm range. His systolic blood pressure in May is primarily 122-140 with a heart rate in the 60 to 80 bpm range. His mother has also had more health [...] . occasio nal . Symptoms GERD . Denies nausea, vomiting, abdominal pain and blood in stool. Genitourinary: left nephrectomy 06/11/2018 for renal mass, later found to be angiomyolipom a,,followed by Dr. Cross in [place] Denies hematuria. 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 Skin: Denies color change. Denies rash or [...] illicit drug use. Exercises sporadically . 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 Lives with his [...] mouth Daily. (Patient not taking: Reported on 06/01/2019) 30 capsule 0 ferrous sulfate 325 mg tablet Take 325 mg by mouth daily (with breakfast). hydrALAZINE (APRESOLINE) 50 MG tablet Take 50 mg by mouth 3 times daily. isosorbide mononitrate (IMDUR) 60 mg ER tablet Take 60 mg by mouth Daily. levothyroxine (SYNTHROID) 50 mcg tablet Take 50 mcg by mouth every morning (before aman kfast). magnesium oxide (MAG-OX) 400 mg tablet Take 400 mg by mouth Daily. 0 non-formulary medication Apply topically 2 times daily. FLUCONAZOLE DMSO 5% APPLY TO T OES ondansetron (ZOFRAN) 4 mg tablet take 1 tablet by mouth four times a day if needed for nausea and vomiting 0 oxyCODONE (ROXICODONE) 5 mg tablet Take 1-2 tablets by mouth every 6 hours as needed fo r Pain. (Patient not taking: Reported on 06/01/2019) 40 tablet 0 spironolactone (ALDACTONE) 50 mg tablet Take 100 mg by mouth Daily. tamsulosin (FLOMAX) 0.4 mg CAPS Take 1 capsule by mouth daily (after breakfast). 30 cap benjamin 1 torsemide (DEMADEX) 10 mg tablet Take 20 mg by mouth Daily. 0 warfarin (COUMADIN) 5 mg tablet Take 5-10 mg by mouth Daily. No facility-administered medications prior to visit. PHYSICAL EXAM: Wt Readings from Last 3 Encounters: 06/01/19 (!) 167.6 kg (369 lb 8 oz) 05/04/19 (!) 169.6 kg (374 lb) 03/10/19 (!) 163.7 kg (361 lb) Temp Readings from Last 3 Encounters: 05/04/19 37.2 C (98.9 F) (Temporal) 06/19/18 36.4 C (97.5 F) (Temporal) 08/23/17 36.6 C (97.8 F) (Temporal) BP Readings from Last 3 Encounters: 06/01/19 120/60 05/04/19 142/74 03/10/19 156/78 Pulse Readings from Last 3 Encounters: 06/01/19 83 05/04/19 74 03/10/19 72 Vital signs: 10/30/2018: WT 357 LB. BP [...] is not pa lpable. EXTREMITIES: Mild LE edema Bilateral from mid lopez down Radial pulses 2+ bilaterally. Femoral pulses are 2+ bilaterally without bruits. DP and PT pulses are 2+ bilaterally. No clubbing. SKIN: Warm and dry, capillary refill is normal, no lesions. NEUROLOGIC: Awake, alert and oriented x 3. No focal motor or sensory deficits. PSYCHIATRIC: Appropriate, affect appears normal DATA: Blood tests: Lab Results Component Value Date WBC 10.31 05/04/2019 RBC 3.78 (L) 05/04/2019 RBC 3.86 (A) 02/04/2019 HGB 13.0 (L) 05/04/2019 HCT 38.9 (L) 05/04/2019 PLT 292 05/04/2019 Lab Results Component Value Date NA 140 05/04/2019 K 4.9 05/04/2019 CL 104 05/04/2019 CO2 27 05/04/2019 ANIONGAP 14 05/04/2019 GLUF 128 (A) 02/04/2019 BUN 43 (H) 05/04/2019 BCR 17.0 (A) 02/04/2019 EGFR 27 (L) 05/04/2019 Lab Results Component Value Date CHOL 149 02/06/2017 TRIG 156 (H) 02/06/2017 GLUF 128 (A) 02/04/2019 Lab Results Component Value Date TSH 3.35 10/16/2018 CRP 1.4 (H) 05/04/2019 No results found for: TOTEPI CARDIAC PROCEDURES/IMAGING Last Cath: 02/06/2017 ([facility]) 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 Mild single-vessel disease (30%) involving the proximal RCA. Sluggish blood f low RCA suggestive of endothelial dysfunction. Elevated LVEDP (28 mmHg) suggestive of diast olic dysfunction.(data::LVSP 142, with LVEDP 28, on pullback aortic pressure 140/83. No sign ificant gradient across the aortic valve on pullback ECHO: Last Echo: 2016: Sinus rhythm. Adequate study. EF improved to 60-65 percent. LV n ormal in size, moderate left ventricular hypertrophy. No regional wall motion abnormalities . Mild diastolic dysfunction. RV normal in size and function. Left Atrium now normal in s ize, mild RVE decreased from moderate on previous study. Aortic valve trileaflet, trace aor tic regurgitation and no aortic stenosis. Normal mitral valve, no mitral regurgitation, no mitral valve prolapse or stenosis. Tricuspid valve normal, trace TR. Pulmonary artery syst olic pressure not assessed due to inadequate TR jet. Pulmonic valve normal, trace SD. No p ericardial effusion. IVC 1.5-2.5 cm, CPAP 5-10 mmHg. [...] block. Bifascicular Block: Rate 5 8 bpm, SD 222 ms, QRS 156 ms, QTC 475 ms EK03/11: Sinus bradycardia with first-degree A-V block. Bi fascicular block. Rate 59 bpm, SD 238 ms, QRS 160 ms, QTC 481 ms, compared to EKG done in January first-degree A-V b lock has increased slightly,tracing personally reviewed by me EK08/01: Sinus rhythm with first-degree AV block. Left axis deviation and a right bundle branch block. Rate 65 bpm, SD 230 ms, QRS 162 ms, QTC 497 ms, when compared to EKG done in February 2017, SD interval has decreased slightly and QTC has increased ,tracing person ally reviewed by me EK10/30/2018: Sinus rhythm with first-degree AV block bifascicular block, old septal infa rct. Rate 66 bpm, SD 250 ms, QRS 156 ms, QTC 475 [...] 10.31, RBC 3.78, hemoglobin 13, hematocrit 38.9, , Platelets 292. ASSESSMENT & PLAN: He was here today for 6-month follow-up. He has problems as detailed below. Symptomatically he seems stable, and heart rate and blood pressure are well controlled, but seems to have increased lower extremity edema, and weight continues to increase as discusse d in . His lipids performed in April show overall a well controlled on atorvastatin 80 mg, ex cept for elevated triglycerides, and I discussed with him today importance of weight loss an d exercise to help reduce his triglycerides. His CMP was normal except for ongoing decline in his renal function, as his GFR is now 26, and continues to be followed by Dr. Ulloa. His weight and lower extremity edema has also increased since I saw him in October, and I hav e advised him to take his torsemide as ordered by taking both tablets in the morning, as he is currently taking 1 in the morning, and one evening,, which may affect his sleep, and also give him insufficient diuresis for the day. I made no changes to cardiac medications today, and he should continue torsemide 20 mg daily for heart failure and lower extremity edema, hydralazine 50 mg 3 times daily for lower extremity edema, and heart failure, carvedilol 6.25 mg twice daily for heart failure, and I would like to increase this in the future his blood pressure allowing. I have also ordered an updated echo to evaluate his ascending aorta dilation, and heart f ailure with increased lower extremity edema and weight gain, and I will see him back in 6 we eks to follow-up on the results, and adjust medications as indicated. I will also have him establish care with Dr. Lorraine Clifton as his primary bank representative in 6 months, but I will also continue to follow [...] on CPAP 11. History of left nephrectomy 12. Angiomyolipoma of left kidney Orders Placed This Encounter Procedures ECHO Complete The following portions of the patient's history were personally reviewed by me and updated as appropriate: EKG tracings, other specialty provider and PCP notes,any Hospital admission and discharge summaries, any ER records , current and previous cardiac testing and procedure reports and d eros, home heart rate and blood pressure log, medication bottles brought to visit today pers onally reviewed by me. Allergies, current medications.labs Family history, past medical history, past social history, past surgical history. Problem list. This encounter was dictated with voice recognition software and may contain inadvertent rec ognition errors. Ethan ARREOLA [facility] 06/01/2019 docum ented in this encounter Plan of Treatment +--------+---------+ [...] | + + +--------+ + + | ECHO Complete | Echocardiog | Routin | Paroxysmal atrial | Expected: | | | rafy | e | fibrillation (HCC) | 06/01/2019, Expires: | | | | | Chronic combined | 06/01/2020 | | | | | systolic and | | | | | | diastolic congestive | | | | | | heart failure (HCC) | | | | | | Essential | | | | | | hypertension with | | | | | | goal blood pressure | | | | | | less than 130/80 | | | | | | Bilateral leg edema | | | | | | Ascending aorta | | | | | | dilatation (HCC) | | + + +--------+ + + documented as of this encounter Procedures + +--------+ + + + | Procedure Name | Priori | Date/Time | Associated Diagnosis | Comments | | | ty | | | | + +--------+ + + + | LABS - EXTERNAL SCAN | | 04/22/2019 | | Results for this | | | | 12:00 AM | | procedure are in the | | | | PDT | | results section. | + +--------+ + + + documented in this encounter Results LABS - EXTERNAL SCAN (04/22/2019 12:00 AM PDT) + + + | [...] History of left nephrectomy | + + | Angiomyolipoma of left kidney | + + documented in this encounter
--- OUTSIDE RECORDS SUMMARY | ~2019-12-19 | XMS | Encounter Summary ---
Demographics + + + | Address | [address] [address] | | | [place] [address] | + + + | Home Phone | | + + + | Preferred Language | Unknown | + + + | Marital Status | Single | + + + | Jewish Affiliation | 1077 | + + + | Race | Unknown | + + + | Ethnic Group | Unknown | + + + Author + + + | Author | [facility] | | | and [place] | + + + | Organization | [facility] | | | [...] Team Providers + +------+ + | Care Billing Assistant Name | Role | Phone | + +------+ + | Sarah Carroll MD | PCP | | + +------+ + Encounter Details +--------+ + + + + | Date | Type | Department | Care Team | Description | +--------+ + + + + | 07/29/ | Telephone | [facility] | Patrice Cross MD | | | 2018 | | [address] | [address] | | | | | [address] | [address] [place], [place] | | | | | [address] | [address] | | | | | [phone] | | | +--------+ + + + [...] | | | | | [address] [place] | | | | | | [address] | | | | | | | | +--------+---------+ + + + documented as of this encounter Visit Diagnoses Not on filedocumented in this encounter"
--- OUTSIDE RECORDS SUMMARY | ~2019-12-19 | XMS | Encounter Summary ---
Demographics + + + | Address | [address] [address] | | | [place] [address] | + + + | Home Phone | | + + + | Preferred Language | Unknown | + + + | Marital Status | Single | + + + | Voodoo Affiliation | [id number] | + + + | Race | Unknown | + + + | Ethnic Group | Unknown | + + + Author + + + | Author | [facility] | | | and [place] | + + + | Organization | [facility] | | | and [place] | + + + | Address | Unknown | + + + | Phone | Unavailable | + + + Support + + +---------+ + | Name | Relationship | Address | Phone | + + +---------+ + | Toby Valentin | ECON | Unknown | | + + +---------+ + Care Team Providers + +------+ + | Care Spiral Runner Name | Role | Phone | + [...] | | | | Diagnoses | | Tay, | | | | | Renal mass | | MD Patrice | | | | | Peritoneal | | [address] | | | | | adhesion | | [address] | | | | | Renal mass | | [place] | | | | | Peritoneal | | [address] Phone: | | | | | adhesion | | [phone] | | | | | Procedures | | Fax: | | | | | [place] FREEING | | [phone] | | | | | BOWEL | | | | | | | ADHESION,ENT | | | | | | | EROLYSIS MO | | | | | | | LAP, | | | | | | | RADICAL | | | | | | | NEPHRECTOMY | | | +--------+--------+ + + + + Encounter Details +--------+ + + + + | Date | Type | Department | Care Team | Description | +--------+ + + + + | 06/11/ | Hospital | [facility] | Patrice Cross MD | Mixed hyperlipidemia | | 2018 - | Encounter | [facility] | [address] | (Primary Dx); Renal | | | | SURGICAL [address] | [address] | neoplasm | | 06/19/ | | [address] [place] [address] | [address] | | | 2018 | | [address] | | | | | | [phone] | | | +--------+ + + + [...] + + + | Blood Pressure | 117/62 | 06/19/2018 8:47 AM | | | | | PST | | + + + + + | Pulse | 63 | 06/19/2018 8:47 AM | | | | | PST | | + + + + + | Temperature | 36.4 C (97.5 F) | 06/19/2018 8:47 AM | | | | | PST | | + + + + + | Respiratory Rate | 16 | 06/19/2018 8:47 AM | | | | | PST | | + + + + + | Oxygen Saturation | 95% | 06/19/2018 8:47 AM | | | | | PST | | + + + + + | Inhaled Oxygen | - | - | | | Concentration | | | | + + + + + | Weight | 155.6 kg (343 lb) | 06/11/2018 11:58 AM | | | | | PDT | | + + + + + | Height | 180.3 cm (5' 11") | 06/11/2018 11:58 AM | | | | | PDT | | + + + + + | Body Mass Index | 47.84 | 06/11/2018 11:58 AM | | | | | PDT [...] documented as of this encounter Discharge Summaries Patrice Cross MD - 06/19/2018 7:42 AM PSTFormatting of this note might be different from t he original. [facility] UROLOGY DISCHARGE SUMMARY Patient Name: Lily Valentin Patient : 1960 PCP: Sarah Carroll Date of Admission: 06/11/2018 Date of Discharge: 06/19/2018 Primary Discharge Dx: angiomyolipomas Secondary Discharge Dx(s): There are no hospital problems to display for this patient. Procedures Left radical nephrectomy Hospital Course: Lily was admitted to the hospital [facility] following his procedure. Post op he was hemodynamic ally stable however struggled with ambulation. Based on this he was counseled regarding phi ab and went to rehab on 06/19/18. Condition on Discharge: Stable Discharge Medications: Discharge Medications New Medications Details docusate sodium 100 mg capsule Take 1-2 capsules by mouth Daily. aka: COLACE oxyCODONE 5 mg tablet Take 1-2 tablets by mouth every 6 hours as needed for Pain. aka: ROXICODONE tamsulosin 0.4 mg Caps Take 1 capsule by mouth daily (after breakfast). aka: FLOMAX Unchanged Medications Details acetaminophen 500 mg tablet Take 500 mg by mouth every 6 hours as needed for Pain. aka: TYLENOL atorvaSTATin 80 MG tablet Take 80 mg [...] TO TOES spironolactone 50 mg tablet Take 100 mg by mouth Daily. aka: ALDACTONE torsemide 20 mg tablet Take 20 mg by mouth Daily. aka: DEMADEX warfarin 5 mg tablet Take 10 mg by mouth Daily. aka: COUMADIN Discontinued Medications [place] Follow-Up: 1. [facility] in 1 week. Please call during business hours to set up your urology follow up appointm ent. Electronically Signed by: Patrice Cross MD, 06/16/2018 7:42 [facility] documented in this encou nter Discharge Instructions Instructions Teresita Rodgers RN - 06/16/2018Formatting of this note might be different f rom the original. [facility] UROLOGY DISCHARGE INSTRUCTIONS FOLLOWING LAPAROSCOPIC REMOVAL OF YOUR KIDNEY AFTER YOUR PROCEDURE: - You will experience soreness at your surgical site for the next week - You have glue over your incisions, this will dissolve in the coming weeks - You have 3 incisions, you may shower, and pat these dry starting tomorrow - Do not soak in a tub for 2 weeks - You will notice bruising at the incisions this is normal - No heavy lifting for 4-6 weeks greater than 8 lbs or equivalent to a gallon of milk - You have dissolvable sutures in place and these dissolve on their own - You now have one remaining kidney, take caution with contact sports, snow sports, or recreational vehicle use as these activities can result in damage of your remaining kidney and participate in these responsibly knowing the risk. WOUND CARE: - Keep wound clean and dry - You may shower 24 hours after your surgery, no soaking in the tub X 2 weeks - You may notice some spotting from the incision CALL YOUR DOCTOR IF: - you have a fever greater than 101.5F, increasing redness of the incisions (again bruising is normal), or drainage from the wound - decreased urine output or swelling in your extremities PAIN CONTROL INSTRUCTIONS: - you may take the narcotic pain med prescribed for you as instructed - you now have one remaining kidney, I would not recommend ibuprofen in the immediate post operative period. I would take care not to habitually take ibuprofen as this can be taxing on your remaining kidney. CONTACT INFORMATION: - [facility] Office Number: [facility] Office: [facility] Office: FOLLOWUP INFORMATION: - Dr. Cross will see you back postoperatively in 2 weeks with labs to check your kidney function prior to your appointment, please call to confirm your appointment Saldana Catheter Care A Saldana catheter is a rubber tube that is placed through the urethra (opening where urine c omes out) and into the bladder. This helps drain urine from the bladder. There is a small ba lloon on the end of the tube that is inflated after insertion. This keeps the catheter from sliding out of the bladder. A Saldana catheter is used to treat urinary retention (unable to pass urine). It is also used when there is incontinence (loss of bladder control). Home care Finish taking any prescribed antibiotic even if you are feeling better before then. It is important to keep bacteria from getting into the collection bag. Do not disconnect the catheter from the collection bag. Use a leg band to secure the drainage tube, so it does not pull on the catheter. Drain t he collection bag when it becomes full using the drain spout at the bottom of the bag. Do not try to pull or remove your catheter. This will injure your urethra. It must be re moved by your healthcare provider or nurse. Follow-up care Follow up with your healthcare provider as advised for repeat urine testing and catheter re moval or replacement. When to seek medical advice Call your healthcare provider right away if any of these occur: Fever of 100.4F (38C) or higher, or as directed by your healthcare provider Bladder pain or fullness Abdominal swelling, nausea or vomiting, or back pain Blood or urine leakage around the catheter Bloody urine coming from the catheter (if a new symptom) Catheter falls out Catheter stops draining for 6 hours Weakness, dizziness, or fainting Date Last Reviewed: 05/12/201619991870-1369 [employer] [place], [place] [id number]. All righ ts reserved. This information is not intended as a substitute for professional medical care. Always follow your healthcare professional's instructions. Discharge Instructions: Caring for Your Leg Bag You are going home with a urinary catheter and collection device (drainage bag) in place. O ne type of collection device is called a leg bag.This is a smaller drainage bag that you c an wear on your legto collect urine during the day. The bag can fit under your clothing. Y ou can move around with greater ease when using a leg bag instead of a larger collection bag . You were shown how to care for your catheter in the hospital. This sheet will help you rasta mber those steps when you are at home. Home care Wash your hands thoroughly before and after you care for your catheter or collection dev ice. Gather your supplies: Alcohol wipes Soap and water Towel and washcloth Leg strap and leg bag Use soap and water to wash the area where your catheter enters your body. Rinse well. Secure the bag fairchild to your leg: Position the leg band high on your thigh with the product label pointing away from your leg. Stretch the leg band in place and fasten. Place the catheter tubing over the bag and secure it. You may secure it with a Velcro ta b or other method, depending on the product you use. Be sure to leave enough loop in the cat heter above the leg band to avoid pulling on the tube. Every 4 to 6 hours, reposition the bandto prevent pressure from the elastic on your le g. You can do this by changing the bag to the other leg or by raising or lowering the leg ba nd. Wash the band as frequently as needed. You can hand wash and dry the leg band. Place the bag in the bag fairchild. Clean the urine bag end of the catheter and your catheter port with an alcohol wipe. Place a towel under the bag and port to keep urine from dripping onto your leg. Before connecting the outlet valve at the bottom of the bagto the catheter, make sure that it is firmly closed. Flip the valve upward toward the bag;it needs to snap firmly in place. Be sure not to tug on the tubing. Be gentle. Attach the urine bag to the end of the catheter; insert the connector snugly into the ca theter port. You can avoid dribbling urine by bending the catheter tubing just below the tip and holding it while you disconnect it from the catheter. Be careful to keep the tip clean while connecting the leg bag tubing to the catheter this keeps germs from getting into the system. Drain the bag when it is full. To drain the bag, flip the clamp downward. Direct the fle xible outlet tube to control the flow of urine. You don t have to disconnect the leg bag f rom the catheter to empty it. Raise your leg up to the edge of the toilet to reach the leg b ag. Then you can empty the bag directly into the toilet. This way, you won t need to bend over, which may be uncomfortable. Keep the leg bag clean. Rinse daily with equal parts water and vinegar to reduce odor an d keep the bag free of germs. Remember to keep the drainage bag below the level of your bladder for proper drainage. Follow-up Make a follow-up appointment as directed by your healthcare provider. When to call your healthcare provider Call yourhealthcare providerright away if you have any of the following: Redness, swelling, or warmth around the catheter entry site Pus draining from your catheter entry site or into the catheter tubing and bag Blood, clots, or floating debris in the urine Nausea and vomiting Shaking chills Fever above 100.4F (38C) Pain that is not relieved by medicine Catheter that falls out or is dislodged Date Last Reviewed: 08/12/201619999354-2667 [employer]. [address] [place] [address], [place] [address]. All righ ts reserved. This information is not intended as a substitute for professional medical care. Always follow your healthcare professional's instructions. [facility] Patient Belongings Lily Valentin 1960 Valuables Dentures: None Vision - Corrective Lenses: Glasses, Secured on Unit Jewelry: Watch , Secured on Unit Clothing: Secured on Unit (p.b. w/ clothes,blue duffle) Other Valuables: CPAP/BiPAP, Secured on Unit, Cane Other Valuables: Cell phone, Secured on Unit, Wallet, Money (Comment), Sent Home (wallet ca rds and money sent to safe) Home Medications: None Removed Pre Procedure Patient Belongings: Yes - left in room (no patient belongings to OR) Provide Name(s) of Who Valuable(s) Were Given To: octavio and valubles to [facility] #[id number] 18 Patient Signature: Clinician/Acquisitions Assistant Signature: documented in this encounter Medications at Time of Discharge + + + +---------+ + + | Medication | Sig | Dispensed | Refills | Start | End Date | | | | | | Date | | + + + +---------+ + + | acetaminophen | Take 650 mg by mouth | | 0 | | | | (TYLENOL) 500 mg | every 6 hours as | | | | | | tablet | needed for Pain. | | | | | + + [...] + + +---------+ + + | warfarin | Take 5-10 mg by | | 0 | | | | (COUMADIN) 5 mg | mouth Daily. | | | | | | tablet | | | | | | + + + +---------+ + + | celecoxib | take 1 capsule by | | 0 | 12/26/19 | | | (CELEBREX) 200 mg | mouth once daily | | | 18 | 9 | | capsule | with food | | | | | + + + +---------+ + + | docusate sodium | Take 1-2 capsules by | 30 | 0 | 06/11/20 | | | (COLACE) 100 mg | mouth Daily. | capsule | | 18 | 9 | | capsule | | | | | | + [...] + + + +---------+ + + | oxyCODONE | Take 1-2 tablets by | 40 | 0 | 06/11/20 | | | (ROXICODONE) 5 mg | mouth every 6 hours | tablet | | 18 | 9 | | tablet | as needed for Pain. | | | | | + + + +---------+ + + | spironolactone | Take 100 mg by mouth | | 0 | | | | (ALDACTONE) 50 mg | Daily. | | | | 9 | | tablet | | | | | | + + + +---------+ + + | tamsulosin | Take 1 capsule by | 30 | 1 | 06/16/20 | | | (FLOMAX) 0.4 mg CAPS | mouth daily (after | capsule | | 18 | 9 | | | breakfast). | | | | | + + + +---------+ + + | torsemide | Take 20 mg by mouth | | 0 | | | | (DEMADEX) 20 mg | Daily. | | | | 9 | | tablet | | | | | | + + + +---------+ + + documented as of this encounter Progress Notes Clifton Gómez RN - 06/19/2018 11:59 AM PSTPt has d/c orders to [place], [place] SNF. Pt h as sacral friction wound approximately 3 inches in diameter. Pt has fungal rash on skin fold s of abdomen. Pt has numerous bruises on abdomen - states these are due to injections. VSS . Pt continues to experience pain at abdominal incision site - 12/19. Pt ambulates independ ently with walker and 1 assist. Pt has Saldana due to urine retention. Pt states he has some numbness bilaterally on soles of feet and on left quadrecep surface. Xavier Griffith PA-C - 06/19/2018 7:[address] [facility] DAILY PROGRESS NOTE ID: Lily Valentin is a 58 y.o. male currently admitted POD#8 s/p laparoscopic nephrectomy with hilar node dissection of left renal mass with intraoperative ultrasound in setting of morbid obesity. INTERIM EVENTS: +pain control -fevers +catheter for post op retention + poor ambulation PHYSICAL EXAM Temp: 36.5 C (97.7 F) BP: 125/60 Pulse: 66 Resp: 16 SpO2: 94 % on Constitutional : NAD, nontoxic, well appearing, well nourished Respiratory : no increased WOB, no crackles, cough, or audible wheeze Cardiovascular : RRR Abdomen: Abdomen with minimal distension, incision are CDI : saldana is draining clear urine, no clots Diagnostic Studies: Laboratory studies and imaging were personally reviewed by me. Chemistry: Hematology: IMPRESSION: s/p laparoscopic nephrectomy Post op urinary retention Present on Admission: None PLAN: 1. At this point patient very slow to ambulate, needs focused PT and SNF 2. OOB ambulate x6 today I expect this patient will be hospitalized for post-operative care of an IP-only procedure and expect the post-hospital plan to be discharge to home or to an adult foster home. Electronically Signed by: Xavier Yip PA-C, 06/19/2018 7:40 [facility] Sasha Blevins, [facility] - 06/18/2018 4:52 PM PSTSOCIAL WORK D/C PLAN: SNF ([facility]) vs home NEXT STEPS: [facility] in [place], [place] has accepted pt pending insurance authorization. SW asked therapies to see pt daily and asked staff to walk pt multiple times a day. INTERVENTION: 06/18: Insurance auth is still pending for SNF. If SNF is unable to get insurance auth then pt will need to d/c home but local home health is not willing to follow. Request for staff t o help mobilize pt as he will need to be independent when he discharges home and is elderly, frail mother is not able to physically assist him. SW updated pt and pt's mother. 06/17: SW received SW consult re: d/c planning concerns specifically concern related to pt's (lack of) mobility. SW reviewed pt's chart. PT assessed pt yesterday and again today and re commended home with home health and assistance (intermittent support from brother). SW met w ith pt this am and again this pm. Originally pt stated that he wanted to d/c to SNF for a we ek and then home and then upon second visit with pt, SW expressed concern re: PT is recommen ding home health and pt's insurance may not authorize SNF. Pt stated he thought he would be fine to d/c home. SW called to pt's mother at pt's request and she called back this pm and s tated she wants pt to d/c to a SNF. SW called to [facility] SNF and they are [place]. SW spoke to Angelika, Director at [facility]. She stated that pt is not appropr iate for home health. She recommends SNF. She also stated that pt's insurance is difficult t o work with and only authorized 1 home health visit and it took 10 plus days to get auth'ed for any other home health visits. ASSESSMENT/CHART REVIEW: 58 year old male with [employer] from [employer]. Pt lives with his elderly mother. Pt is bariatric. D/C TRANSPORT: jasson Matta- [phone]. SW originally asked for him to pick pt up at 10:3 0 am tomorrow but ride is canceled due to above d/c planning concerns. BARRIERS TO D/C: Pt is bariatric. Pt's insurance is difficult to work with, per home health director. Pt lives with his 90 year old frail mother in a single wide trailer. Pt has no he lp, support at home. CONTACTS: Toby Valentin, mother- [phone] Electronically signed by JOSH Mcbride 06/18/2018 4:52 PM Page Melton RN - 06/17/2018 5:58 PM PSTSocial worker notifi ed this RN that patient would not be able to discharge today due to SNF placement issues. Th is RN notified Xavier Yip PA-C for urology regarding canceled discharge. Electronically s igned by: Page Ortiz RN 06/17/2018 18:02 Gen Sasha Jayesh, LICS W - 06/17/2018 4:35 PM PSTSOCIAL WORK D/C PLAN: SNF ([facility]) vs home? NEXT STEPS: Need PT to re-evaluate for disposition. PT can call this SW at [phone] to discuss d/c plan satya concerns. Awaiting returned call from [facility] SNF admissions ([phone]) re: if pt wo uld be appropriate for SNF placement for rehab stay. INTERVENTION: SW received SW consult re: d/c planning concerns specifically concern related to pt's (lack of) mobility. SW reviewed pt's chart. PT assessed pt yesterday and again toda y and recommended home with home health and assistance (intermittent support from brother). SW met with pt this am and again this pm. Originally pt stated that he wanted to d/c to SNF for a week and then home and then upon second visit with pt, SW expressed concern re: PT is recommending home health and pt's insurance may not authorize SNF. Pt stated he thought he w ould be fine to d/c home. SW called to pt's mother at pt's request and she called back this pm and stated she wants pt to d/c to a SNF. SARAH called to [facility] SNF and they a re reviewing. SARAH spoke to Angelika, Director at [facility]. She stated that pt is not appropr iate for home health. She recommends SNF. She also stated that pt's insurance is difficult t o work with and only authorized 1 home health visit and it took 10 plus days to get auth'ed for any other home health visits. ASSESSMENT/CHART REVIEW: 58 year old male with [employer] insurance from [employer]. Pt lives with his elderly mother. Pt is bariatric. D/C TRANSPORT: Pa[facility]on- [phone]. SW originally asked for him to pick pt up at 10:3 0 am tomorrow but ride is canceled due to above d/c planning concerns. BARRIERS TO D/C: Pt is bariatric. Pt's insurance is difficult to work with, per home health director. Pt lives with his 90 year old frail mother in a single wide trailer. Pt has no he lp, support at home. CONTACTS: Toby Valentin, mother- [phone] Electronically signed by JOSH Mcbride 06/17/2018 4:38 PM PSTBest, Kasia Brink RN - 06/17/2018 11:33 AM PSTFormatting of this no te might be different from the original. [facility] Wound, Ostomy, & Continence Nursing Note Date of Admission: 06/11/2018 Hospital Day #: LOS: 6 days Procedure: Procedure(s): LEFT LAPAROSCOPIC NEPHRECTOMY WITH NODE DISSECTION AND LAPAROSCOPIC LYSIS OF ADHESIONS Procedure date: 06/11/2018 Active Problems: * No active hospital problems. * Assessment/Evaluation: Patient w/ friction skin damage on his R buttock. Wound edges are i rregular and peeling, wound center is red & dry. Patient educated on lifting body, rather th an dragging himself across the bed and chair surface to reduce skin damage however, d/t body habitus I am unsure if he is able to do this. There is no noted evidence of PU, periwound s kin is WNL. Cleansed w/ NS, foam drsg placed for protection. Will f/u. 06/17/18 1120 Visit Information Visit Type Initial wound assessment Wound 06/17/18 Right medial buttock abrasion Placement Date: 06/17/18 Side: Right Orientation: medial Location: buttock Type: abras ion Additional Comments: friction skin damage Wound WDL ex Base reddened;dry Edges irregular Length (cm) 2 Width (cm) 2 Drainage Amount none Wound Cleaning sterile normal saline Wound Interventions off-loading (reduce friction) Dressing foam Visit Summary Discipline Providing Treatment WOCN Next Wound/Ostomy Visit Date 06/24/18 (f/u friction damage to R buttock) Pertinent labs/data: Lab Results Component Value Date ALBUMIN 3.9 08/16/2017 TOTALPROTEIN 7.2 08/16/2017 WBC 8.3 06/16/2018 HCT 26.7 (L) 06/16/2018 HGB 9.0 (L) 06/16/2018 Body mass index is 47.84 kg/m. Treatment Plan: 1. Orders entered 2. Will f/u next week Electronically signed by: Kasia Cannon RN, CWOCN [facility] DATE/TIME: 06/17/2018 11:36 Patrice Ag MD - 1 08/17/2017 8:05 AM PST [facility] DAILY PROGRESS NOTE ID: Lily Valentin is a 58 y.o. male currently admitted s/p laparoscopic nephrectomy with hilar node dissection of left renal mass with intraoperative ultrasound in setting of morbid obesity. INTERIM EVENTS: +pain control -fevers +catheter for post op retention + poor ambulation PHYSICAL EXAM Temp: 36.7 C (98.1 F) BP: 116/61 Pulse: 66 Resp: 18 SpO2: 97 % on Constitutional : NAD, nontoxic, well appearing, well nourished Respiratory : no increased WOB, no crackles, cough, or audible wheeze Cardiovascular : RRR Abdomen: Abdomen with minimal distension, incision are CDI : saldana is draining clear urine Diagnostic Studies: Laboratory studies and imaging were personally reviewed by me. Chemistry: Hematology: IMPRESSION: s/p laparoscopic nephrectomy Post op urinary retention Present on Admission: None PLAN: 1. At this point patient very slow to ambulate, needs focused PT and SNF I expect this patient will be hospitalized for post-operative care of an IP-only procedure and expect the post-hospital plan to be discharge to home or to an adult foster home. Electronically Signed by: Patrice Cross MD, 06/17/2018 8:05 [facility] Patrice Ag MD - 06/16 7:42 AM PST [facility] DAILY PROGRESS NOTE ID: Lily Valentin is a 58 y.o. male currently admitted s/p laparoscopic nephrectomy with hilar node dissection of left renal mass with intraoperative ultrasound in setting of morbid obesity. INTERIM EVENTS: +pain control -fevers +catheter for post op retention + BM yesterday + ankle pain, normal XRay PHYSICAL EXAM Temp: 36.1 C (97 F) BP: 111/64 Pulse: 73 Resp: 18 SpO2: 93 % on Constitutional : NAD, nontoxic, well appearing, well nourished Respiratory : no increased WOB, no crackles, cough, or audible wheeze Cardiovascular : RRR Abdomen: Abdomen with minimal distension, incision are CDI : saldana is draining clear urine Diagnostic Studies: Laboratory studies and imaging were personally reviewed by me. Chemistry: Lab Results Component Value Date NA 140 06/16/2018 K 5.0 06/16/2018 CO2 26 06/16/2018 BUN 35 06/16/2018 CREA 2.50 06/16/2018 GLU 94 06/16/2018 Hematology: Lab Results Component Value Date HGB 9.0 06/16/2018 HCT 26.7 06/16/2018 WBC 8.3 06/16/2018 IMPRESSION: s/p laparoscopic nephrectomy Post op urinary retention Present on Admission: None PLAN: 1. Reg diet 2. HLIV 3. Voiding trial 1 wk 4. Dc home today I expect this patient will be hospitalized for post-operative care of an IP-only procedure and expect the post-hospital plan to be discharge to home or to an adult foster home. Electronically Signed by: Patrice Cross MD, 06/16/2018 7:42 [facility] Jack Lewis MD - 06/15/2018 8:00 AM PST Name: Lily Valentin Admission Date: 06/11/2018 10:30 Attending Provider: Patrice Cross MD Room/Bed: 552/552-02 Sex: male : 1960 Age: 58 y.o. PROGRESS NOTE - Urology SUBJECTIVE: Doing better this morning. Had a large BM this morning, says he feels a little less bloated. Still hard time walking because of ankle pain. No N/V/F/C, tolerating small am ount of fluids. Had TOV yesterday, failed. OBJECTIVE: PHYSICAL EXAM: Most Recent Vital Sign Temp: [36.1 C (97 F)-37.1 C (98.7 F)] 36.1 C (97 F) Pulse: [70-82] 73 Resp: [16-20] 20 BP: (118-143)/(60-69) 135/65 I&O: I/O last 3 completed shifts: In: 1300 [I.V.:800; Other:500] Out: 2625 [Urine:2625] No intake/output data recorded. Awake, alert, NAD. Normal appearing male. Looks better than yesterday CV: RRR. No murmurs, gallops or rubs Resp: CTA B. Abd: Soft, nontender, non distended. Normal bowel sounds. Bowel, bladder, liver and kidneys are not palpable. Incisions c/d/i. Saldana catheter in place, clear UOP LABS: Recent Results (from the past 24 hour(s)) Protime INR Result Value Ref Range Protime 14.3 (H) 12.0 - 14.2 sec INR 1.2 (H) 0.9 - 1.1 CBC no Differential Result Value Ref Range WBC 11.3 (H) 3.8 - 11.0 K/uL RBC 3.06 (L) 4.20 - 5.70 M/uL Hgb 9.9 (L) 13.2 - 17.0 g/dL Hct 29.7 (L) 39.0 - 50.0 % MCV 96.9 80.0 - 100.0 fL MCH 32.4 27.0 - 34.0 pg MCHC 33.4 32.0 - 35.5 g/dL RDW-CV 15.6 (H) 11.0 - 15.5 % Platelet Count 293 150 - 400 K/uL MPV 7.8 7.5 - 11.2 fL Basic Metabolic Panel Result Value Ref Range NA 140 135 - 145 mmol/L K 5.1 (H) 3.5 - 5.0 mmol/L CL 105 99 - 109 mmol/L CO2 26 21 - 28 mmol/L ANION GAP 9 5 - 16 mmol/L CALCIUM 8.2 (L) 8.5 - 10.2 mg/dL BUN 28 (H) 8 - 25 mg/dL Creatinine, Serum/Plasma 2.48 (H) 0.70 - 1.30 mg/dL GLUCOSE 105 (H) 65 - 99 mg/dL Estimated GFR 28 (L) >=90 mL/min/1.73m2 CBC with Differential Result Value Ref Range WBC 10.0 3.8 - 11.0 K/uL RBC 2.94 (L) 4.20 - 5.70 M/uL Hgb 9.9 (L) 13.2 - 17.0 g/dL Hct 28.5 (L) 39.0 - 50.0 % MCV 96.8 80.0 - 100.0 fL MCH 33.7 27.0 - 34.0 pg MCHC 34.8 32.0 - 35.5 g/dL RDW-CV 15.5 11.0 - 15.5 % Platelet Count 288 150 - 400 K/uL MPV 7.4 (L) 7.5 - 11.2 fL % Neutrophils 86.7 (H) 40.0 - 75.0 % % Lymphocytes 4.2 (L) 15.0 - 48.0 % % Monocytes 6.6 0.0 - 12.0 % % Eosinophils 2.3 0.0 - 7.0 % % Basophils 0.2 0.0 - 2.0 % Absolute Neutrophils 8.70 (H) 1.90 - 7.40 K/uL Absolute Lymphocytes 0.42 (L) 1.00 - 3.90 K/uL Absolute Monocytes 0.66 0.00 - 0.80 K/uL Absolute Eosinophils 0.23 0.00 - 0.50 K/uL Absolute Basophils 0.02 0.00 - 0.10 K/uL Protime INR Result Value Ref Range Protime 15.7 (H) 12.0 - 14.2 sec INR 1.3 (H) 0.9 - 1.1 PTT Result Value Ref Range PTT 41 (H) 26 - 36 sec IMAGING: All images reviewed by in NEDA08/15/2017 Large amount of gas in intestines, + free air, consistent with recent laparoscopy. No obstr uction Ankle Films 06/15/2018 FINDINGS: Right Ankle: The distal tibia and fibula appear intact. The ankle joint space and ankle mortise appear preserved. No acute fracture or dislocation. The talar dome is normal. The subtalar joint is intact. Prominent traction osteophytes and hypertrophic bone is seen at the dorsal and plantar calcaneus region. Mild diffuse ankle soft tissue swelling suggested. Left Ankle: The distal tibia and fibula appear intact. Ankle joint space and ankle mortise appear preserved. No acute fracture or dislocation. Talar dome is normal. The subtalar joint is intact. Prominent traction osteophytes of the plantar and dorsal calcaneus, similar to the other side. Mild diffuse ankle soft tissue swelling suggested. IMPRESSION: 1. Mild diffuse ankle region soft tissue swelling bilaterally. 2. No acute osseous abnormality. 3. Prominent traction osteophytes and hypertrophic bone deposition seen at the dorsal and plantar calcaneus regions bilaterally. IMPRESSION/PLAN: POD #4 s/p lap nephrectomy. Doing better today, + BM, + flatus - Advance diet as tolerated - PT consult for ambulation - Once tolerating diet, consider DC, at earliest tomorrow. - Laxatives as needed for continued constipation. Devon Lewis MD - 06/15/2018 12:27 AM PDTCalled by floor RN. Patient continuing to complain of dist ension, no nausea, no vomiting. Has been tolerating clears, refuses to walk because of ankle pain. + BS. Encouraged use of all meds to treat constipation (Miralax, suppository, senna a nd colace) and will get KUB and ankle films to confirm no injury to ankles. RN voiced unders tanding. ingSea RN - 06/14/2018 7:36 PM PDTPatient did not void this evening for 7 hours after saldana was removed. Saldana replaced per order. Jack Garvey MD - 06/14/2018 8:31 AM PDTFormatting of t his note might be different from the original. Name: Lily Valentin Admission Date: 06/11/2018 10:30 Attending Provider: Patrice Cross MD Room/Bed: 552/552-02 Sex: male : 1960 Age: 58 y.o. PROGRESS NOTE - Urology SUBJECTIVE: Complaining of gas pain today. No incision pain, but is having gas pain. Does s ay that it hurts to take a deep breath in his incisional area, but other garcia no incisional pain. + burping, no flatus, no BM. Has tried to ambulate, but says ankles are hurting. Tole rating diet without issue. OBJECTIVE: PHYSICAL EXAM: Most Recent Vital Sign Temp: [35.9 C (96.7 F)-36.7 C (98 F)] 36.3 C (97.3 F) Pulse: [66-76] 76 Resp: [16-19] 19 BP: (106-130)/(52-64) 130/64 I&O: I/O last 3 completed shifts: In: 2713 [P.O.:360; I.V.:2353] Out: 2525 [Urine:2525] No intake/output data recorded. Awake, alert, NAD. Normal appearing male, somewhat uncomfortable. CV: RRR. No murmurs, gallops or rubs Resp: CTA B. Abd: Soft, nontender, non distended. + bowel sounds. Bowel, bladder, liver and kidneys are not palpable. Incisions with bruising around then, but otherwise c/d/i. : Saldana in place with clear UOP. Extremities: Ankles nontender on exam, no swelling, no redness. LABS: Recent Results (from the past 24 hour(s)) Basic Metabolic Panel Result Value Ref Range NA 137 135 - 145 mmol/L K 4.9 3.5 - 5.0 mmol/L CL 105 99 - 109 mmol/L CO2 26 21 - 28 mmol/L ANION GAP 6 5 - 16 mmol/L CALCIUM 7.8 (L) 8.5 - 10.2 mg/dL BUN 25 8 - 25 mg/dL Creatinine, Serum/Plasma 2.52 (H) 0.70 - 1.30 mg/dL GLUCOSE 96 65 - 99 mg/dL Estimated GFR 27 (L) >=90 mL/min/1.73m2 IMAGING: All images reviewed by me None IMPRESSION/PLAN: POD #3 s/p lap nephrectomy. Doing relatively well, still with gas pains. - Encouraged suppository, colace and Miralax. - Trial of Void, will have nursing fill bladder with 500 cc prior to removing catheter. If unable to urinate, will need to go home with catheter in place. - Coumadin restarting this PM - Encouraged ambulating - Labs in AM, Cr trending downwards this morning. Will check BMP, CBC and PT/PTT/INR. - Regular diet, encouraged him to take it slow. - Complains of SOB, but from abdominal pain causing him to take shallow breaths, no chest p ain. Encourage IS use. owXavier lucero PA-C - 06/13/2018 12:20 PM PDT [facility] DAILY PROGRESS NOTE ID: Lily Valentin is a 58 y.o. male currently admitted POD#2 s/p laparoscopic nephrectomy with hilar node dissection of left renal mass with intraoperative ultrasound in setting of morbid obesity. INTERIM EVENTS: +pain control -fevers +catheter DC'd yesterday at 0700, voided 250cc 7 hours later, thereafter unable, Saldana repl aced at 2130, immediately produced 500cc urine. -N/V PHYSICAL EXAM Temp: 36.7 C (98 F) BP: 128/58 Pulse: 70 Resp: 16 SpO2: 93 % on Constitutional : NAD, nontoxic, well appearing, well nourished, sleeping very soundly, diff icult to wake Respiratory : no increased WOB, no crackles, cough, or audible wheeze, NC in place Cardiovascular : RRR Abdomen: Abdomen with minimal distension, incision are CDI : saldana is draining clear dark-yellow urine, no clots Diagnostic Studies: Laboratory studies and imaging were personally reviewed by me. Chemistry: Lab Results Component Value Date NA 136 06/13/2018 K 4.9 06/13/2018 CO2 26 06/13/2018 BUN 23 06/13/2018 CREA 2.65 06/13/2018 GLU 102 06/13/2018 Hematology: IMPRESSION: recovering well s/p laparoscopic nephrectomy Present on Admission: None PLAN: 1. Advance diet 2. Re-check creatinine tomorrow AM 3. Dc saldana w/ voiding trial tomorrow 4. Hep lock IVF once tolerating PO 5. OOB x6 today 6. Transition to Oral pain meds 7. Incentive spirometry 8. Restart coumadin today 9. Dc planning for likely tomorrow I expect this patient will be hospitalized for post-operative care of an IP-only procedure and expect the post-hospital plan to be discharge to home or to an adult foster home. Electronically Signed by: Xavier Yip PA-C, 06/13/2018 12:20 [facility] Associated attestation - Patrice Cross MD - 06/13/2018 2:18 PM PDTPost op urinary retentio n DANNY related to nephrectomy - reassess BMP in the am and likely repeat voiding trial (fill and pull)Eve Scott RN - 06/12/2018 8:30 AM PDTPt with significant hypopigmented scarring of midline pannus/p ubis, states "I had deep wounds there from my pants rubbing", there are several small fissur es due to moisture, currently being treated w/ AF powder and dri eliel pads to wick moisture. No additional recommendations. atrice Cross MD - 06/12/2018 5:33 AM PDT [facility] DA[facility] PROGRESS NOTE ID: Lily Valentin is a 58 y.o. male currently admitted POD#1 s/p laparoscopic nephrectomy with hilar node dissection of left renal mass with intraoperative ultrasound in setting of morbid obesity. INTERIM EVENTS: +pain control -fevers +catheter draining well -N/V PHYSICAL EXAM Temp: 36.6 C (97.9 F) BP: 125/60 Pulse: 68 Resp: 18 SpO2: 98 % on Constitutional : NAD, nontoxic, well appearing, well nourished Respiratory : no increased WOB, no crackles, cough, or audible wheeze Cardiovascular : RRR Abdomen: Abdomen with minimal distension, incision are CDI : saldana is draining clear urine Diagnostic Studies: Laboratory studies and imaging were personally reviewed by me. Chemistry: Lab Results Component Value Date NA 140 06/11/2018 K 4.9 06/11/2018 CO2 29 06/11/2018 BUN 23 06/11/2018 CREA 1.76 06/11/2018 GLU 129 06/11/2018 Hematology: Lab Results Component Value Date HGB 11.7 06/11/2018 HCT 34.4 06/11/2018 WBC 15.0 06/11/2018 IMPRESSION: recovering well s/p laparoscopic nephrectomy Present on Admission: None PLAN: 1. Advance diet 2. Dc saldana 3. Hep lock IVF once tolerating PO 4. OOB 5. Transition to Oral pain meds 6. Incentive spirometry 7. Restart coumadin likely tomorrow 8. Dc planning for likely tomorrow I expect this patient will be hospitalized for post-operative care of an IP-only procedure and expect the post-hospital plan to be discharge to home or to an adult foster home. Electronically Signed by: Patrice Cross MD, 06/12/2018 5:33 [facility] documented in this encou nter Plan of Treatment +--------+---------+ + + + | Date | Type | Specialty | Care Team | Description | +--------+---------+ + + + | 03/17/ | Office | Cardiology | Lorraine Clifton DO | | | 2019 | Visit | | [address] | | | | | | [place] | | | | | | [phone] | | | | | | | | +--------+---------+ + + + + + +--------+ + + | Name | Type | Priori | Associated Diagnoses | Date/Time | | | | ty | | | + + +--------+ + + | Extra Blood Bank | Blood Bank | STAT | | 06/11/2018 1:10 PM | | Tube | | | | PDT | + + +--------+ + + + +------+--------+ + + | Name | Type | Priori | Associated Diagnoses | Order Schedule | | | | ty | | | + +------+--------+ + + | DME: Walker | DME | Routin | Renal neoplasm | DME 1 Time for 1 | | | | e | Mixed hyperlipidemia | Occurrences starting | | | | | | 06/19/2018 until | | | | | | 06/19/2018 | + +------+--------+ + + documented as of this encounter Procedures + +--------+ + + + | Procedure Name | Priori | Date/Time | Associated Diagnosis | Comments | | | ty | | | | + +--------+ + + + | PROTIME INR | Routin | 06/19/2018 | | Results for this | | | e | 2:38 AM | | procedure are in the | | | | PST | | results section. | + +--------+ + + + | PROTIME INR | Routin | 06/18/2018 | | Results for this | | | e | 5:37 AM | | procedure are in the | | | | PST | | results section. | + +--------+ + + + | CBC NO DIFFERENTIAL | Routin | 06/18/2018 | | Results for this | | | e | 5:37 AM | | procedure are in the | | | | PST | | results section. | + +--------+ + + + | PROTIME INR | Routin | 06/17/2018 | | Results for this | | | e | 3:04 AM | | procedure are in the | | | | PST | | results section. | + +--------+ + + + | PROTIME INR | Routin | 06/16/2018 | | Results for this | | | e | 5:15 AM | | procedure are in the | | | | PST | | results section. | + +--------+ + + + | CBC NO DIFFERENTIAL | Routin | 06/16/2018 | | Results for this | | | e | 5:15 AM | | procedure are in the | | | | PST | | results section. | + +--------+ + + + | BASIC METABOLIC | Routin | 06/16/2018 | | Results for this | | PANEL | e | 5:15 AM | | procedure are in the | | | | PST | | results section. | + +--------+ + + + | BASIC METABOLIC | Routin | 06/15/2018 | | Results for this | | PANEL | e | 8:30 AM | | procedure are in the | | | | PST | | results section. | + +--------+ + + + | PTT | Routin | 06/15/2018 | | Results for this | | | e | 2:39 AM | | procedure are in the | | | | PST | | results section. | + +--------+ + + + | PROTIME INR | Routin | 06/15/2018 | | Results for this | | | e | 2:39 AM | | procedure are in the | | | | PST | | results section. | + +--------+ + + + | CBC WITH | Routin | 06/15/2018 | | Results for this | | DIFFERENTIAL | e | 2:39 AM | | procedure are in the | | | | PST | | results section. | + +--------+ + + + | BASIC METABOLIC | Routin | 06/15/2018 | | Results for this | | PANEL | e | 2:39 AM | | procedure are in the | | | | PST | | results section. | + +--------+ + + + | XR ANKLE RIGHT 3 + | Routin | 06/15/2018 | | Results for this | | VW | e | 1:36 AM | | procedure are in the | | | | PDT | | results section. | + +--------+ + + + | XR ANKLE LEFT 3 + VW | Routin | 06/15/2018 | | Results for this | | | e | 1:36 AM | | procedure are in the | | | | PDT | | results section. | + +--------+ + + + | XR ABDOMEN 2 VW | TEE | 06/15/2018 | | Results for this | | | | 1:33 AM | | procedure are in the | | | | PDT | | results section. | + +--------+ + + + | PROTIME INR | Routin | 06/14/2018 | | Results for this | | | e | 9:31 AM | | procedure are in the | | | | PDT | | results section. | + +--------+ + + + | CBC NO DIFFERENTIAL | Routin | 06/14/2018 | | Results for this | | | e | 9:31 AM | | procedure are in the | | | | PDT | | results section. | + +--------+ + + + | BASIC METABOLIC | Routin | 06/14/2018 | | Results for this | | PANEL | e | 5:57 AM | | procedure are in the | | | | PDT | | results section. | + +--------+ + + + | BASIC METABOLIC | Routin | 06/13/2018 | | Results for this | | PANEL | e | 6:32 AM | | procedure are in the | | | | PDT | | results section. | + +--------+ + + + | CBC NO DIFFERENTIAL | Routin | 06/12/2018 | | Results for this | | | e | 5:44 AM | | procedure are in the | | | | PDT | | results section. | + +--------+ + + + | BASIC METABOLIC | Routin | 06/12/2018 | | Results for this | | PANEL | e | 5:44 AM | | procedure are in the | | | | PDT | | results section. | + +--------+ + + + | CBC NO DIFFERENTIAL | STAT | 06/11/2018 | | Results for this | | | | 6:04 PM | | procedure are in the | | | | PDT | | results section. | + +--------+ + + + | BASIC METABOLIC | STAT | 06/11/2018 | | Results for this | | PANEL | | 6:04 PM | | procedure are in the | | | | PDT | | results section. | + +--------+ + + + | TISSUE REQUEST FOR | Routin | 06/11/2018 | | Results for this | | PATHOLOGY (NON-ORD) | e | 2:57 PM | | procedure are in the | | | | PDT | | results section. | + +--------+ + + + | LAPAROSCOPY | | 06/11/2018 | Renal mass | | | NEPHRECTOMY | | 1:13 PM | Peritoneal adhesion | | | | | PDT | | | + +--------+ + + + +---+--------+ | | | | | Specia | | | l | | | Needs | | | | | | SENDER | | | BEAT- | | | NIEVES | | | ANTONI | | | SON | +---+--------+ + +--------+ +---+ + | ABO RH | STAT | 06/11/2018 | | Results for this | | | | 1:10 PM | | procedure are in the | | | | PDT | | results section. | + +--------+ +---+ + | TYPE AND SCREEN | STAT | 06/11/2018 | | Results for this | | | | 12:50 PM | | procedure are in the | | | | PDT | | results section. | + +--------+ +---+ + | POC GLUCOSE | Routin | 06/11/2018 | | Results for this | | | e | 12:49 PM | | procedure are in the | | | | PDT | | results section. | + +--------+ +---+ + | LABS - EXTERNAL SCAN | | 06/09/2018 | | Results for this | | | | 12:00 AM | | procedure are in the | | | | PDT | | results section. | + +--------+ +---+ + documented in this encounter Results Karenime INR (06/19/2018 2:38 AM PST) + + + + + + | Component | Value | Ref Range | Performed | Pathologist | | | | | At | Signature | + + + + + + | Prothrombin | 27.4 (H) | 12.0 - 14.2 sec | [facility] | | | Time | | | [facility] | | | | | | [facility] | | | | | | MEDICAL | | | | | | CENTER | | | | | | LABORATORY | | | | | | [place] | | + + + + + + | INR | 2.7 (H)Comment: Usual | 0.9 - 1.1 | [facility] | | | | oral anticoagulant | | [facility] | | | | range: 2.0 to 3.0 High | | HEART | | | | level oral | | MEDICAL | | | | anticoagulant range: 2.5 | | CENTER | | | | to 3.5Performed by [facility] | | LABORATORY | | | | [address], | | [place] | | | | [place] [address] | | | | + + + + + + + + | Specimen | + + | Blood specimen | | (specimen) | + + + + + + + | Performing | Address | City/State/Zipcode | Phone Number | | Organization | | | | + + + + + | [facility] | [address] | [place] [address] | | | [facility] | | | | | LAB[facility]AT[facility] [place] | | | | + + + + + CBC no Differential (06/18/2018 5:37 AM PST) + + + + + [...] LABORATORY | | | | | | [place] | | + + + + + + | RBC | 2.80 (L) | 4.20 - 5.70 | [facility] | | | | | M/uL | [facility] | | | | | | HE[facility] | | | | | | MEDICAL | | | | | | CENTER | | | | | | LABORATORY | | | | | | [place] | | + + + + + + | Hemoglobin | 9.3 (L) | 13.2 - 17.0 | [facility] | | | | | g/dL | [facility] | | | | | | HE[facility] | | | | | | MEDICAL | | | | | | CENTER | | | | | | LABORATORY | | | | | | [place] | | + + + + + + | Hct | 27.1 (L) | 39.0 - 50.0 % | [facility] | | | | | | [facility] | | | | | | [facility] | | | | | | MEDICAL | | | | | | CENTER | | | | | | LABORATORY | | | | | | [place] | | + + + + + + | MCV | 96.8 | 80.0 - 100.0 fL | [facility] | | | | | | [facility] | | | | | | [facility] | | | | | | MEDICAL | | | | | | CENTER | | | | | | LABORATORY | | | | | | [place] | | + + + + + + | MCH | 33.1 | 27.0 - 34.0 pg | [facility] | | | | | | [facility] | | | | | | [facility] | | | | | | MEDICAL | | | | | | CENTER | | | | | | LABORATORY | | | | | | [place] | | + + + + + + | MCHC | 34.2 | 32.0 - 35.5 | [facility] | | | | | g/dL | [facility] | | | | | | HE[facility] | | | | | | MEDICAL | | | | | | CENTER | | | | | | LABORATORY | | | | | | [place] | | + + + + + + | RDW-CV | 15.6 (H) | 11.0 - 15.5 % | [facility] | | | | | | [facility] | | | | | | [facility] | | | | | | MEDICAL | | | | | | CENTER | | | | | | LABORATORY | | | | | | [place] | | + + + + + + | Platelet | 323 | 150 - 400 K/uL | [facility] | | | Count | | | [facility] | | | | | | HEART | | | | | | MEDICAL | | | | | | CENTER | | | | | | LABORATORY | | | | | | [place] | | + + + + + + | MPV | 7.0 (L)Comment: | 7.5 - 11.2 fL | [facility] | | | | Performed by [facility] [address] | | [facility] | | | | [address] [place] | | HEART | | | | [id number] | | MEDICAL | | | | | | CENTER | | | | | | LABORATORY | | | | | | [place] | | + + + + + + + + | Specimen | + + | Blood specimen | | (specimen) | + + + + + + + | Performing | Address | City/State/Zipcode | Phone Number | | Organization | | | | + + + + + | [facility] | [address] | [place] [address] | | | [facility] | | | | | LAB[facility]AT[facility] | | | | + + + + + Protime INR (06/18/2018 5:37 AM PST) + + + + + + | Component | Value | Ref Range | Performed | Pathologist | | | | | At | Signature | + + + + + + | Prothrombin | 27.1 (H) | 12.0 - 14.2 sec | [facility] | | | Time | | | [facility] | | | | | | HEART | | | | | | MEDICAL | | | | | | CENTER | | | | | | LABORATORY | | | | | | [place] | | + + + + + + | INR | 2.6 (H)Comment: Usual | 0.9 - 1.1 | [facility] | | | | oral anticoagulant | | [facility] | | | | range: 2.0 to 3.0 High | | HEART | | | | level oral | | MEDICAL | | | | anticoagulant range: 2.5 | | CENTER | | | | to 3.5Performed by [facility] | | LABORATORY | | | | [address], | | [place] | | | | [place] [address] | | | | + + + + + + + + | Specimen | + + | Blood specimen | | (specimen) | + + + + + + + | Performing | Address | City/State/Zipcode | Phone Number | | Organization | | | | + + + + + | [facility] | [address] | [place] [address] | | | [facility] | | | | | [facility] | | | | + + + + + Maurice INR (06/17/2018 3:04 AM PST) + + + + + + | Component | Value | Ref Range | Performed | Pathologist | | | | | At | Signature | + + + + + + | Prothrombin | 24.4 (H) | 12.0 - 14.2 sec | [facility] | | | Time | | | [facility] | | | | | | [facility] | | | | | | MEDICAL | | | | | | CENTER | | | | | | LABORATORY | | | | | | [place] | | + + + + + + | INR | 2.3 (H)Comment: Usual | 0.9 - 1.1 | [facility] | | | | oral anticoagulant | | [facility] | | | | range: 2.0 to 3.0 High | | HEART | | | | level oral | | MEDICAL | | | | anticoagulant range: 2.5 | | CENTER | | | | to 3.5Performed by [facility] | | LABORATORY | | | | [address], | | [place] | | | | [place] [address] | | | | + + + + + + + + | Specimen | + + | Blood specimen | | (specimen) | + + + + + + + | Performing | Address | City/State/Zipcode | Phone Number | | Organization | | | | + + + + + | [facility] | [address] | [place] [address] | | | [facility] | | | | | LAB[facility]AT[facility] | | | | + + + + + CBC no Differential (06/16/2018 5:15 AM PST) + + + + + + | Component | Value | Ref Range | Performed | Pathologist | | | | | At | Signature | + + + + + + | WBC | 8.3 | 3.8 - 11.0 K/uL | [facility] | | | | | | [facility] | | | | | | [facility] | | | | | | MEDICAL | | | | | | CENTER | | | | | | LABORATORY | | | | | | [place] | | + + + + + + | RBC | 2.73 (L) | 4.20 - 5.70 | [facility] | | | | | M/uL | [facility] | | | | | | HE[facility] | | | | | | MEDICAL | | | | | | CENTER | | | | | | LABORATORY | | | | | | [place] | | + + + + + + | Hemoglobin | 9.0 (L) | 13.2 - 17.0 | [facility] | | | | | g/dL | [facility] | | | | | | HE[facility] | | | | | | MEDICAL | | | | | | CENTER | | | | | | LABORATORY | | | | | | [place] | | + + + + + + | Hct | 26.7 (L) | 39.0 - 50.0 % | [facility] | | | | | | [facility] | | | | | | [facility] | | | | | | MEDICAL | | | | | | CENTER | | | | | | LABORATORY | | | | | | [place] | | + + + + + + | MCV | 97.7 | 80.0 - 100.0 fL | [facility] | [facility] | [facility] | | | | | | LABORATORY | | | | | | [facility] | | + + + + + + | [facility] | 33.1 | 27.0 - 34.0 pg | [facility] | [facility] | [facility] | | | | | | LABORATORY | | | | | | [facility] | | + + + + + + | [facility] | 33.9 | 32.0 - 35.5 | [facility] | | | | | g/dL | [facility] | | | | | | HEART | | | | | | MEDICAL | | | | | | CENTER | | | | | | LABORATORY | | | | | | [facility] | | + + + + + + | RDW-CV | 16.1 (H) | 11.0 - 15.5 % | [facility] | | | | | | [facility] | | | | | | HEART | | | | | | MEDICAL | | | | | | CENTER | | | | | | LABORATORY | | | | | | [facility] | | + + + + + + | Platelet | 314 | 150 - 400 K/uL | [facility] | | | Count | | | [facility] | | | | | | HEART | | | | | | MEDICAL | | | | | | CENTER | | | | | | LABORATORY | | | | | | [facility] | | + + + + + + | MPV | 7.0 (L)Comment: | 7.5 - 11.2 fL | [facility] | | | | Performed by [facility] [address] | | [facility]CR[facility] | | | | [address], [place] | | HEART | | | | | | MEDICAL | | | | | | CENTER | | | | | | LABORATORY | | | | | | [place] | | + + + + + + + + | Specimen | + + | Blood specimen | | (specimen) | + + + + + + + | Performing | Address | City/State/Zipcode | Phone Number | | Organization | | | | + + + + + | [facility] | [address] | [place] [address] | | | [facility] | | | | | LABORATORY [facility] | | | | + + + + + Protime INR (06/16/2018 5:15 AM PST) + + + + + + | Component | Value | Ref Range | Performed | Pathologist | | | | | At | Signature | + + + + + + | Prothrombin | 19.2 (H) | 12.0 - 14.2 sec | [facility] | | | Time | | | [facility] | | | | | | HEART | | | | | | MEDICAL | | | | | | CENTER | | | | | | LABORATORY | | | | | | [place] | | + + + + + + | INR | 1.7 (H)Comment: Usual | 0.9 - 1.1 | [facility] | | | | oral anticoagulant | | [facility]CR[facility] | | | | range: 2.0 to 3.0 High | | HEART | | | | level oral | | MEDICAL | | | | anticoagulant range: 2.5 | | CENTER | | | | to 3.5Performed by [facility] | | LABORATORY | | | | [address], [place], | | [place] | | | | [place] [address] | | | | + + + + + + + + | Specimen | + + | Blood specimen | | (specimen) | + + + + + + + | Performing | Address | City/State/Zipcode | Phone Number | | Organization | | | | + + + + + | [facility] | [address] | [place] [address] | | | [facility] | | | | | STEPHEN CAVANAUGH | | | | + + + + + Basic Metabolic Panel (06/16/2018 5:15 AM PST) + + + + + + | Component | Value | Ref Range | Performed | Pathologist | | | | | At | Signature | + + + + + + | Na | 140 | 135 - 145 | [facility] | | | | | mmol/L | [facility] | | | | | | HEART | | | | | | MEDICAL | | | | | | CENTER | | | | | | LABORATORY | | | | | | [place] | | + + + + + + | K | 5.0 | 3.5 - 5.0 | [facility] | | | | | mmol/L | [facility] | | | | | | HEART | | | | | | MEDICAL | | | | | | CENTER | | | | | | LABORATORY | | | | | | [place] | | + + + + + + | Cl | 107 | 99 - 109 mmol/L | [facility] | | | | | | [facility] | | | | | | HEART | | | | | | MEDICAL | | | | | | CENTER | | | | | | LABORATORY | | | | | | [place] | | + + + + + + | CO2 | 26 | 21 - 28 mmol/L | [facility] | | | | | | [facility] | | | | | | HEART | | | | | | MEDICAL | | | | | | CENTER | | | | | | LABORATORY | | | | | | [place] | | + + + + + + | Anion Gap | 7 | 5 - 16 mmol/L | [facility] | | | | | | [facility] | | | | | | HEART | | | | | | MEDICAL | | | | | | CENTER | | | | | | LABORATORY | | | | | | [place] | | + + + + + + | Calcium | 8.3 (L) | 8.5 - 10.2 | [facility] | | | | | mg/dL | [facility] | | | | | | HEART | | | | | | MEDICAL | | | | | | CENTER | | | | | | LABORATORY | | | | | | [place] | | + + + + + + | BUN | 35 (H) | 8 - 25 mg/dL | [facility] | | | | | | [facility] | | | | | | HEART | | | | | | MEDICAL | | | | | | CENTER | | | | | | LABORATORY | | | | | | [place] | | + + + + + + | Creatinine | 2.50 (H) | 0.70 - 1.30 | [facility] | | | | | mg/dL | [facility] | | | | | | HEART | | | | | | MEDICAL | | | | | | CENTER | | | | | | LABORATORY | | | | | | [place] | | + + + + + + | Glucose | 94 | 65 - 99 mg/dL | [facility] | | | | | | [facility] | | | | | | HEART | | | | | | MEDICAL | | | | | | CENTER | | | | | | LABORATORY | | | | | | [place] | | + + + + + + | Estimated | 27 (L)Comment: eGFR<60 | >=90 | [facility] | | | GFR | consistent with impaired | mL/min/1.73m2 | [facility] | | | | kidney | | HEART | | | | function.Performed by | | MEDICAL | | | | [facility] [address] | | [place] | | | | [place] [address] | | LABORATORY | | | | | | [facility] | | + + + + + + + + | Specimen | + + | Blood specimen | | (specimen) | + + + + + + + | Performing | Address | City/State/Zipcode | Phone Number | | Organization | | | | + + + + + | [facility] | [address] | [place] [address] | | | [facility] | | | | | LABORATORY [facility] | | | | + + + + + Basic Metabolic Panel (06/15/2018 8:30 AM PST) + + + + + [...] LABORATORY | | | | | | [facility] | | + + + + + + | K | 5.0 | 3.5 - 5.0 | [facility] | | | | | mmol/L | [facility] | | | | | | HEART | | | | | | MEDICAL | | | | | | CENTER | | | | | | LABORATORY | | | | | | [place] | | + + + + + + | Cl | 104 | 99 - 109 mmol/L | [facility] | | | | | | [facility] | | | | | | HEART | | | | | | MEDICAL | | | | | | CENTER | | | | | | LABORATORY | | | | | | [place] | | + + + + + + | CO2 | 25 | 21 - 28 mmol/L | [facility] | | | | | | [facility] | | | | | | HEART | | | | | | MEDICAL | | | | | | CENTER | | | | | | LABORATORY | | | | | | [facility] | | + + + + + + | Anion Gap | 8 | 5 - 16 mmol/L | [facility] | | | | | | [facility] | | | | | | HEART | | | | | | MEDICAL | | | | | | CENTER | | | | | | LABORATORY | | | | | | [facility] | | + + + + + + | Calcium | 8.8 | 8.5 - 10.2 | [facility] | | | | | mg/dL | [facility]CR[facility] | | | | | | HEART | | | | | | MEDICAL | | | | | | CENTER | | | | | | LABORATORY | | | | | | C[facility] | | + + + + + + | BUN | 31 (H) | 8 - 25 mg/dL | [facility] | | | | | | [facility] | | | | | | HEART | | | | | | MEDICAL | | | | | | CENTER | | | | | | LABORATORY | | | | | | [place] | | + + + + + + | Creatinine | 2.54 (H) | 0.70 - 1.30 | [facility] | | | | | mg/dL | [facility]CR[facility] | | | | | | HEART | | | | | | MEDICAL | | | | | | CENTER | | | | | | LABORATORY | | | | | | [facility] | | + + + + + + | Glucose | 119 (H) | 65 - 99 mg/dL | [facility] | | | | | | [facility] | | | | | | HEART | | | | | | MEDICAL | | | | | | CENTER | | | | | | LABORATORY | | | | | | [facility] | | + + + + + + | Estimated | 27 (L)Comment: eGFR<60 | >=90 | [facility] | | | GFR | consistent with impaired | mL/min/1.73m2 | [facility] | | | | kidney | | HEART | | | | function.Performed by | | MEDICAL | | | | [facility] [address], | | CENTER | | | | [place] [address] | | LABORATORY | | | | | | [facility] | | + + + + + + + + | Specimen | + + | Blood specimen | | (specimen) | + + + + + + + | Performing | Address | City/State/Zipcode | Phone Number | | Organization | | | | + + + + + | [facility] | [address] | [place] [address] | | | [facility] | | | | | LABORATORY [place] | | | | + + + + + Karenime JOSE ENRIQUE (06/15/2018 2:39 AM PST) + + + + + + | Component | Value | Ref Range | Performed | Pathologist | | | | | At | Signature | + + + + + + | Prothrombin | 15.7 (H) | 12.0 - 14.2 sec | [facility] | | | Time | | | [facility] | | | | | | HEART | | | | | | MEDICAL | | | | | | CENTER | | | | | | LABORATORY | | | | | | [facility] | | + + + + + + | INR | 1.3 (H)Comment: Usual | 0.9 - 1.1 | [facility] | | | | oral anticoagulant | | [facility]CR[facility] | | | | range: 2.0 to 3.0 High | | HEART | | | | level oral | | MEDICAL | | | | anticoagulant range: 2.5 | | CENTER | | | | to 3.5Performed by [facility] | | LABORATORY | | | | [address], | | [place] | | | | [place] [address] | | | | + + + + + + + + | Specimen | + + | Blood specimen | | (specimen) | + + + + + + + | Performing | Address | City/State/Zipcode | Phone Number | | Organization | | | | + + + + + | [facility] | [address] | [place] [address] | | | [facility] | | | | | LABORATORY [facility] | | | | + + + + + PTT (06/15/2018 2:39 AM PST) + + + + + + | Component | Value | Ref Range | Performed | Pathologist | | | | | At | Signature | + + + + + + | aPTT | 41 (H)Comment: Deep | 26 - 36 sec | [facility] | | | | venous thrombosis or | | [facility]CR[facility] | | | | pulmonary embolism | | HEART | | | | therapeutic heparin | | MEDICAL | | | | levels of 0.3 to 0.7 | | CENTER | | | | Units/mL anti FactorXa | | LABORATORY | | | | levels usually | | [facility] | | | | correspond to an aPTT of | | | | | | 65 to 99 seconds. Acute | | | | | | cardiac syndrome | | | | | | therapeutic range based | | | | | | on heparin levels of 0.2 | | | | | | to 0.5 usually | | | | | | correspond to an aPTT of | | | | | | 57 to 76 seconds. | | | | | | Pediatric guidelines | | | | | | suggested heparin levels | | | | | | of 0.35 to 0.7 usually | | | | | | correspond to an aPTT of | | | | | | 69 to 99 | | | | | | seconds.Performed by [facility] | | | | | | [address], | | | | | | [place] [address] | | | | + + + + + + + + | Specimen | + + | Blood specimen | | (specimen) | + + + + + + + | Performing | Address | City/State/Zipcode | Phone Number | | Organization | | | | + + + + + | [facility] | [address] | [place] [address] | | | [facility] | | | | | LABORATORY [facility] | | | | + + + + + CBC with Differential (06/15/2018 2:39 AM PST) + + + +------- ------+ + | Component | Value | Ref Range | Perfor med | Pathologist | | | | | At | Signature | + + + +------- ------+ + | WBC | 10.0 | 3.8 - 11.0 K/uL | [facility] | | | | | | [facility] | | | | | | HEART | | | | | | MEDICA L | | | | | | CENTER | | | | | | LABORA TORY | | | | | | [facility] | | + + + +------- ------+ + | RBC | 2.94 (L) | 4.20 - 5.70 | [facility] | | | | | M/uL | [facility] | | | | | | HEART | | | | | | MEDICA L | | | | | | CENTER | | | | | | LABORA TORY | | | | | | [facility] | | + + + +------- ------+ + | Hemoglobin | 9.9 (L) | 13.2 - 17.0 | [facility] | | | | | g/dL | [facility]CR[facility] | | | | | | HEART | | | | | | MEDICA L | | | | | | CENTER | | | | | | LABORA TORY | | | | | | [facility] | | + + + +------- ------+ + | Hct | 28.5 (L) | 39.0 - 50.0 % | [facility] | | | | | | [facility] | | | | | | HEART | | | | | | MEDICA L | | | | | | CENTER | | | | | | LABORA TORY | | | | | | [facility] | | + + + +------- ------+ + | MCV | 96.8 | 80.0 - 100.0 fL | [facility] | | | | | | [facility] | | | | | | HEART | | | | | | MEDICA L | | | | | | CENTER | | | | | | LABORA TORY | | | | | | [facility] | | + + + +------- ------+ + | MCH | 33.7 | 27.0 - 34.0 pg | [facility] | | | | | | [facility] | | | | | | HEART | | | | | | MEDICA L | | | | | | CENTER | | | | | | LABORA TORY | | | | | | [facility] | | + + + +------- ------+ + | MCHC | 34.8 | 32.0 - 35.5 | [facility] | | | | | g/dL | [facility] | | | | | | HEART | | | | | | MEDICA L | | | | | | CENTER | | | | | | LABORA TORY | | | | | | [facility] | | + + + +------- ------+ + | RDW-CV | 15.5 | 11.0 - 15.5 % | [facility] | | | | | | [facility] | | | | | | HEART | | | | | | MEDICA L | | | | | | CENTER | | | | | | LABORA TORY | | | | | | [facility] | | + + + +------- ------+ + | Platelet | 288 | 150 - 400 K/uL | [facility] | | | Count | | | [facility]CR[facility] | | | | | | HEART | | | | | | MEDICA L | | | | | | CENTER | | | | | | LABORA TORY | | | | | | [facility] | | + + + +------- ------+ + | MPV | 7.4 (L) | 7.5 - 11.2 fL | [facility] | | | | | | [facility] | | | | | | HEART | | | | | | MEDICA L | | | | | | CENTER | | | | | | LABORA TORY | | | | | | [facility] | | + + + +------- ------+ + | % | 86.7 (H) | 40.0 - 75.0 % | [facility] | | | Neutrophils | | | [facility]CR[facility] | | | | | | HEART | | | | | | MEDICA L | | | | | | CENTER | | | | | | LABORA TORY | | | | | | [facility] | | + + + +------- ------+ + | % | 4.2 (L) | 15.0 - 48.0 % | [facility] | | | Lymphocytes | | | SACR[facility] | | | | | | HEART | | | | | | MEDICA L | | | | | | CENTER | | | | | | LABORA TORY | | | | | | [facility] | | + + + +------- ------+ + | % Monocytes | 6.6 | 0.0 - 12.0 % | [facility] | | | | | | [facility] | | | | | | HEART | | | | | | MEDICA L | | | | | | CENTER | | | | | | LABORA TORY | | | | | | [facility] | | + + + +------- ------+ + | % | 2.3 | 0.0 - 7.0 % | [facility] | | | Eosinophils | | | SACR[facility] | | | | | | HEART | | | | | | MEDICA L | | | | | | CENTER | | | | | | LABORA TORY | | | | | | [facility] | | + + + +------- ------+ + | % Basophils | 0.2 | 0.0 - 2.0 % | [facility] | | | | | | [facility] | | | | | | HEART | | | | | | MEDICA L | | | | | | CENTER | | | | | | LABORA TORY | | | | | | [place] | | + + + +------- ------+ + | Absolute | 8.70 (H) | 1.90 - 7.40 | [facility] | | | Neutrophils | | K/uL | [facility]CR[facility] | | | | | | HEART | | | | | | MEDICA L | | | | | | CENTER | | | | | | LABORA TORY | | | | | | [facility] | | + + + +------- ------+ + | Absolute | 0.42 (L) | 1.00 - 3.90 | [facility] | | | Lymphocytes | | K/uL | [facility] | | | | | | HEART | | | | | | MEDICA L | | | | | | CENTER | | | | | | LABORA TORY | | | | | | [facility] | | + + + +------- ------+ + | Absolute | 0.66 | 0.00 - 0.80 | [facility] | | | Monocytes | | K/uL | [facility] | | | | | | HEART | | | | | | MEDICA L | | | | | | CENTER | | | | | | LABORA TORY | | | | | | [facility] | | + + + +------- ------+ + | Absolute | 0.23 | 0.00 - 0.50 | [facility] | | | Eosinophils | | K/uL | [facility] | | | | | | HEART | | | | | | MEDICA L | | | | | | CENTER | | | | | | LABORA TORY | | | | | | [facility] | | + + + +------- ------+ + | Absolute | 0.02Comment: Performed | 0.00 - 0.10 | [facility] | | | Basophils | by [facility] [address], | K/uL | SACRED | | | | [place] [address] | | HEART | | | |Performed by [facility] [address], [place] [address] | | MEDICA L | | | | | | CENTER | | | | | | LABORA TORY | | | | | | [facility] | | + + + +------- ------+ + + + | Specimen | + + | Blood specimen | | (specimen) | + + + + + + + | Performing | Address | City/State/Zipcode | Phone Number | | Organization | | | | + + + + + | [facility] | [address] | [place] [address] | | | [facility] | | | | | LABORATORY [facility] | | | | + + + + + Basic Metabolic Panel (06/15/2018 2:39 AM PST) + + + + + + | Component | Value | Ref Range | Performed | Pathologist | | | | | At | Signature | + + + + + + | Na | 140 | 135 - 145 | [facility] | | | | | mmol/L | [facility]CR[facility] | | | | | | HEART | | | | | | MEDICAL | | | | | | CENTER | | | | | | LABORATORY | | | | | | [facility] | | + + + + + + | K | 5.1 (H) | 3.5 - 5.0 | [facility] | | | | | mmol/L | [facility]CR[facility] | | | | | | HEART | | | | | | MEDICAL | | | | | | CENTER | | | | | | LABORATORY | | | | | | [place] | | + + + + + + | Cl | 105 | 99 - 109 mmol/L | [facility] | | | | | | [facility] | | | | | | HEART | | | | | | MEDICAL | | | | | | CENTER | | | | | | LABORATORY | | | | | | [place] | | + + + + + + | CO2 | 26 | 21 - 28 mmol/L | [facility] | | | | | | [facility] | | | | | | HEART | | | | | | MEDICAL | | | | | | CENTER | | | | | | LABORATORY | | | | | | [place] | | + + + + + + | Anion Gap | 9 | 5 - 16 mmol/L | [facility] | | | | | | [facility] | | | | | | HEART | | | | | | MEDICAL | | | | | | CENTER | | | | | | LABORATORY | | | | | | [place] | | + + + + + + | Calcium | 8.2 (L) | 8.5 - 10.2 | [facility] | | | | | mg/dL | [facility] | | | | | | HEART | | | | | | MEDICAL | | | | | | CENTER | | | | | | LABORATORY | | | | | | [place] | | + + + + + + | BUN | 28 (H) | 8 - 25 mg/dL | [facility] | | | | | | [facility] | | | | | | HEART | | | | | | MEDICAL | | | | | | CENTER | | | | | | LABORATORY | | | | | | [place] | | + + + + + + | Creatinine | 2.48 (H) | 0.70 - 1.30 | [facility] | | | | | mg/dL | SACRED | | | | | | HEART | | | | | | MEDICAL | | | | | | CENTER | | | | | | LABORATORY | | | | | | [place] | | + + + + + + | Glucose | 105 (H) | 65 - 99 mg/dL | [facility] | | | | | | [facility]CR[facility] | | | | | | HEART | | | | | | MEDICAL | | | | | | CENTER | | | | | | LABORATORY | | | | | | [place] | | + + + + + + | Estimated | 28 (L)Comment: eGFR<60 | >=90 | [facility] | | | GFR | consistent with impaired | mL/min/1.73m2 | SACRED | | | | kidney | | HEART | | | | function.Performed by | | MEDICAL | | | | [facility] [address], | | CENTER | | | | [place] [address] | | LABORATORY | | | | | | CERNER | | + + + + + + + + | Specimen | + + | Blood specimen | | (specimen) | + + + + + + + | Performing | Address | City/State/Zipcode | Phone Number | | Organization | | | | + + + + + | [facility] | [address] | [place] [address] | | | [facility] | | | | | STEPHEN CAVANAUGH | | | | + + + + + XR Ankle Right 3 + Vw (06/15/2018 1:36 AM PDT) + + | Specimen | + + | | + + + + + | Narrative | Performed At | + + + | RIGHT ANKLE THREE VIEWS LEFT ANKLE THREE VIEWS CLINICAL | [facility] | | INFORMATION: Bilateral ankle pain following surgery. Patient refuses | | | to walk. COMPARISON: None. FINDINGS: Right Ankle: The | | | distal tibia and fibula appear intact. The ankle joint space and | | | ankle mortise appear preserved. No acute fracture or dislocation. | | | The talar dome is normal. The subtalar joint is intact. Prominent | | | traction osteophytes and hypertrophic bone is seen at the dorsal and | | | plantar calcaneus region. Mild diffuse ankle soft tissue swelling | | | suggested. Left Ankle: The distal tibia and fibula appear intact. | | | Ankle joint space and ankle mortise appear preserved. No acute | | | fracture or dislocation. Talar dome is normal. The subtalar joint | | | is intact. Prominent traction osteophytes of the plantar and dorsal | | | calcaneus, similar to the other side. Mild diffuse ankle soft | | | tissue swelling suggested. IMPRESSION: 1. Mild diffuse ankle | | | region soft tissue swelling bilaterally. 2. No acute osseous | | | abnormality. 3. Prominent traction osteophytes and hypertrophic bone | | | deposition seen at the dorsal and plantar calcaneus regions | | | bilaterally. Signed by: MD Mingo, Dr. Yates Sign | | | Date/Time: 06/15/2018 2:00 AM | | + + + + + | Procedure Note | + + | Jake Long Results In - 06/15/2018 2:04 AM PST | | RIGHT ANKLE THREE VIEWS | | LEFT ANKLE THREE VIEWS | | | | CLINICAL INFORMATION: | | Bilateral ankle pain following surgery. Patient refuses to walk. | | | | COMPARISON: | | None. | | | | FINDINGS: | | Right Ankle: | | The distal tibia and fibula appear intact. The ankle joint space and | | ankle mortise appear preserved. No acute fracture or dislocation. | | The talar dome is normal. The subtalar joint is intact. Prominent | | traction osteophytes and hypertrophic bone is seen at the dorsal and | | plantar calcaneus region. Mild diffuse ankle soft tissue swelling | | suggested. | | | | Left Ankle: | | The distal tibia and fibula appear intact. Ankle joint space and | | ankle mortise appear preserved. No acute fracture or dislocation. | | Talar dome is normal. The subtalar joint is intact. Prominent | | traction osteophytes of the plantar and dorsal calcaneus, similar to | | the other side. Mild diffuse ankle soft tissue swelling suggested. | | | | IMPRESSION: | | 1. Mild diffuse ankle region soft tissue swelling bilaterally. | | 2. No acute osseous abnormality. | | 3. Prominent traction osteophytes and hypertrophic bone deposition | | seen at the dorsal and plantar calcaneus regions bilaterally. | | | | | | | | | | Signed by: MD Mingo, Dr. Yates | | Sign Date/Time: 06/15/2018 2:00 AM | + + + +---------+ + + | Performing | Address | City/State/Zipcode | Phone Number | | Organization | | | | + +---------+ + + | [facility] | | | | + +---------+ + + XR Ankle Left 3 + Vw (06/15/2018 1:36 AM PDT) + + | Specimen | + + | | + + + + + | Narrative | Performed At | + + + | RIGHT ANKLE THREE VIEWS LEFT ANKLE THREE VIEWS CLINICAL | [facility] | | INFORMATION: Bilateral ankle pain following surgery. Patient refuses | | | to walk. COMPARISON: None. FINDINGS: Right Ankle: The | | | distal tibia and fibula appear intact. The ankle joint space and | | | ankle mortise appear preserved. No acute fracture or dislocation. | | | The talar dome is normal. The subtalar joint is intact. Prominent | | | traction osteophytes and hypertrophic bone is seen at the dorsal and | | | plantar calcaneus region. Mild diffuse ankle soft tissue swelling | | | suggested. Left Ankle: The distal tibia and fibula appear intact. | | | Ankle joint space and ankle mortise appear preserved. No acute | | | fracture or dislocation. Talar dome is normal. The subtalar joint | | | is intact. Prominent traction osteophytes of the plantar and dorsal | | | calcaneus, similar to the other side. Mild diffuse ankle soft | | | tissue swelling suggested. IMPRESSION: 1. Mild diffuse ankle | | | region soft tissue swelling bilaterally. 2. No acute osseous | | | abnormality. 3. Prominent traction osteophytes and hypertrophic bone | | | deposition seen at the dorsal and plantar calcaneus regions | | | bilaterally. Signed by: MD Mingo, Dr. Yates Sign | | | Date/Time: 06/15/2018 2:00 AM | | + + + + + | Procedure Note | + + | Ethan, Rad Results In - 06/15/2018 2:04 AM PST | | RIGHT ANKLE THREE VIEWS | | LEFT ANKLE THREE VIEWS | | | | CLINICAL INFORMATION: | | Bilateral ankle pain following surgery. Patient refuses to walk. | | | | COMPARISON: | | None. | | | | FINDINGS: | | Right Ankle: | | The distal tibia and fibula appear intact. The ankle joint space and | | ankle mortise appear preserved. No acute fracture or dislocation. | | The talar dome is normal. The subtalar joint is intact. Prominent | | traction osteophytes and hypertrophic bone is seen at the dorsal and | | plantar calcaneus region. Mild diffuse ankle soft tissue swelling | | suggested. | | | | Left Ankle: | | The distal tibia and fibula appear intact. Ankle joint space and | | ankle mortise appear preserved. No acute fracture or dislocation. | | Talar dome is normal. The subtalar joint is intact. Prominent | | traction osteophytes of the plantar and dorsal calcaneus, similar to | | the other side. Mild diffuse ankle soft tissue swelling suggested. | | | | IMPRESSION: | | 1. Mild diffuse ankle region soft tissue swelling bilaterally. | | 2. No acute osseous abnormality. | | 3. Prominent traction osteophytes and hypertrophic bone deposition | | seen at the dorsal and plantar calcaneus regions bilaterally. | | | | | | | | | | Signed by: MD Mingo, Dr. Yates | | Sign Date/Time: 06/15/2018 2:00 AM | + + + +---------+ + + | Performing | Address | City/State/Zipcode | Phone Number | | Organization | | | | + +---------+ + + | [facility] | | | | + +---------+ + + XR Abdomen 2 VW (06/15/2018 1:33 AM PDT) + + | Specimen | + + | | + + + + + | Narrative | Performed At | + + + | ABDOMEN TWO VIEWS CLINICAL INFORMATION: Abdominal pain and | [facility] | | distension following renal surgery. COMPARISON: ECHO OUTSIDE | | | INTERPRETATION dated 07/23/2017; CT ABDOMEN PELVIS W CONTRAST dated | | | 05/22/2017; CL LEFT HEART CATH WITH CORONARY ANGIO dated 02/06/2017 | | | FINDINGS: Nonspecific intraperitoneal free air and dilated loops of | | | small bowel and colon status post renal surgery. IMPRESSION: 1. | | | Free air, which may be secondary to renal surgery abdominal | | | insufflation. However, bowel injury/perforation not excluded. 2. | | | Diffusely dilated small bowel, and probable dilation of the ascending | | | colon as well, suggestive of an ileus. Bowel obstruction | | | considered less likely but not excluded. Signed by: | | | MD Peace Richard Sign Date/Time: 06/15/2018 1:54 AM | | + + + + + | Procedure Note | + + | Ethan, Rad Results In - 06/15/2018 1:58 AM PST | | ABDOMEN TWO VIEWS | | | | CLINICAL INFORMATION: | | Abdominal pain and distension following renal surgery. | | | | COMPARISON: | | ECHO OUTSIDE INTERPRETATION dated 07/23/2017; CT ABDOMEN PELVIS W | | CONTRAST dated 05/22/2017; CL LEFT HEART CATH WITH CORONARY ANGIO | | dated 02/06/2017 | | | | FINDINGS: | | Nonspecific intraperitoneal free air and dilated loops of small bowel | | and colon status post renal surgery. | | | | IMPRESSION: | | 1. Free air, which may be secondary to renal surgery abdominal | | insufflation. However, bowel injury/perforation not excluded. | | 2. Diffusely dilated small bowel, and probable dilation of the | | ascending colon as well, suggestive of an ileus. Bowel obstruction | | considered less likely but not excluded. | | | | | | | | | | Signed by: MD Peace Richard | | Sign Date/Time: 06/15/2018 1:54 AM | + + + +---------+ + + | Performing | Address | City/State/Zipcode | Phone Number | | Organization | | | | + +---------+ + + | [facility] | | | | + +---------+ + + CBC no Differential (06/14/2018 9:31 AM PDT) + + + +-------- -----+ + | Component | Value | Ref Range | Perform ed | Pathologist | | | | | At | Signature | + + + +-------- -----+ + | WBC | 11.3 (H) | 3.8 - 11.0 K/uL | [facility] | | [facility] | | | | | [facility] | | | | | | MEDICAL | | | | | | CENTER | | | | | | [facility] | | | | | | [facility] | | + + + +-------- -----+ + | RBC | 3.06 (L) | 4.20 - 5.70 | [facility] | | | | | M/uL | [facility] | | | | | | HEART | | | | | | MEDICAL | | | | | | CENTER | | | | | | [facility] | | | | | | [facility] | | + + + +-------- -----+ + | Hemoglobin | 9.9 (L) | 13.2 - 17.0 | [facility] | | | | | g/dL | [facility] | | | | | | HEART | | | | | | MEDICAL | | | | | | CENTER | | | | | | LAB[facility] | | | | | | [facility] | | + + + +-------- -----+ + | Hct | 29.7 (L) | 39.0 - 50.0 % | [facility] | | | | | | [facility] | | | | | | HE[facility] | | | | | | MEDICAL | | | | | | CENTER | | | | | | LAB[facility] | | | | | | [facility] | | + + + +-------- -----+ + | MCV | 96.9 | 80.0 - 100.0 fL | [facility] | | | | | | [facility] | | | | | | HEART | | | | | | MEDICAL | | | | | | CENTER | | | | | | LAB[facility] | | | | | | [facility] | | + + + +-------- -----+ + | MCH | 32.4 | 27.0 - 34.0 pg | [facility] | | | | [facility] | | | | | | HE[facility] | | | | | | MEDICAL | | | | | | CENTER | | | | | | [facility] | | | | | | [facility] | | + + + +-------- -----+ + | MCHC | 33.4 | 32.0 - 35.5 | [facility] | | | | | g/dL | [facility] | | | | | | HEART | | | | | | MEDICAL | | | | | | CENTER | | | | | | LAB[facility] | | | | | | [facility] | | + + + +-------- -----+ + | RDW-CV | 15.6 (H) | 11.0 - 15.5 % | [facility] | | | | | | [facility] | | | | | | HEART | | | | | | MEDICAL | | | | | | CENTER | | | | | | LAB[facility] | | | | | | [facility] | | + + + +-------- -----+ + | Platelet | 293 | 150 - 400 K/uL | [facility] | | | Count | | | [facility] | | | | | | HEART | | | | | | MEDICAL | | | | | | CENTER | | | | | | LAB[facility]AT [facility] | | | | | | [facility] | | + + + +-------- -----+ + | MPV | 7.8Comment: Performed | 7.5 - 11.2 fL | [facility] | | | | by [facility] [address], | | SACRED | | | | [place] [address] | | HEART | | | |Performed by [facility] [address], [place] [address] | | MEDICAL | | | | | | CENTER | | | | | | LABORAT [facility] | | | | | | [facility] | | + + + +-------- -----+ + + + | Specimen | + + | Blood specimen | | (specimen) | + + + + + + + | Performing | Address | City/State/Zipcode | Phone Number | | Organization | | | | + + + + + | [facility] | [address] | [place] [address] | | | [facility] | | | | | LABORATORY [facility] | | | | + + + + + Maurice QUISPE (06/14/2018 9:31 AM PDT) + + + + + + | Component | Value | Ref Range | Performed | Pathologist | | | | | At | Signature | + + + + + + | Prothrombin | 14.3 (H) | 12.0 - 14.2 sec | [facility] | | | Time | | | [facility] | | | | | | HEART | | | | | | MEDICAL | | | | | | CENTER | | | | | | LABORATORY | | | | | | [facility] | | + + + + + + | INR | 1.2 (H)Comment: Usual | 0.9 - 1.1 | [facility] | | | | oral anticoagulant | | [facility] | | | | range: 2.0 to 3.0 High | | HEART | | | | level oral | | MEDICAL | | | | anticoagulant range: 2.5 | | CENTER | | | | to 3.5Performed by [facility] | | LABORATORY | | | | [address], | | [place] | | | | [place] [address] | | | | + + + + + + + + | Specimen | + + | Blood specimen | | (specimen) | + + + + + + + | Performing | Address | City/State/Zipcode | Phone Number | | Organization | | | | + + + + + | [facility] | [address] | [place] [address] | | | [facility] | | | | | LABORAT[facility] | | | | + + + + + Basic Metabolic Panel (06/14/2018 5:57 AM PDT) + + + + + [...] LABORATORY | | | | | | [facility] | | + + + + + + | K | 4.9 | 3.5 - 5.0 | [facility] | | | | | mmol/L | [facility]CR[facility] | | | | | | HEART | | | | | | MEDICAL | | | | | | CENTER | | | | | | LABORATORY | | | | | | [facility] | | + + + + + + | Cl | 105 | 99 - 109 mmol/L | [facility] | | | | | | [facility] | | | | | | HEART | | | | | | MEDICAL | | | | | | CENTER | | | | | | LABORATORY | | | | | | [facility] | | + + + + + + | CO2 | 26 | 21 - 28 mmol/L | [facility] | | | | | | [facility] | | | | | | HEART | | | | | | MEDICAL | | | | | | CENTER | | | | | | LABORATORY | | | | | | [facility] | | + + + + + + | Anion Gap | 6 | 5 - 16 mmol/L | [facility] | | | | | | [facility] | | | | | | HEART | | | | | | MEDICAL | | | | | | CENTER | | | | | | LABORATORY | | | | | | [facility] | | + + + + + + | Calcium | 7.8 (L) | 8.5 - 10.2 | [facility] | | | | | mg/dL | [facility]CR[facility] | | | | | | HEART | | | | | | MEDICAL | | | | | | CENTER | | | | | | LABORATORY | | | | | | [facility] | | + + + + + + | BUN | 25 | 8 - 25 mg/dL | [facility] | | | | | | [facility] | | | | | | HEART | | | | | | MEDICAL | | | | | | CENTER | | | | | | LABORATORY | | | | | | [facility] | | + + + + + + | Creatinine | 2.52 (H) | 0.70 - 1.30 | [facility] | | | | | mg/dL | [facility]CR[facility] | | | | | | HEART | | | | | | MEDICAL | | | | | | CENTER | | | | | | LABORATORY | | | | | | [facility] | | + + + + + + | Glucose | 96 | 65 - 99 mg/dL | [facility] | | | | | | [facility] | | | | | | HEART | | | | | | MEDICAL | | | | | | CENTER | | | | | | LABORATORY | | | | | | [facility] | | + + + + + + | Estimated | 27 (L)Comment: eGFR<60 | >=90 | [facility] | | | GFR | consistent with impaired | mL/min/1.73m2 | SACRED | | | | kidney | | HEART | | | | function.Performed by | | MEDICAL | | | | [facility] [address], | | CENTER | | | | [place] [address] | | LABORATORY | | | | | | [facility] | | + + + + + + + + | Specimen | + + | Blood specimen | | (specimen) | + + + + + + + | Performing | Address | City/State/Zipcode | Phone Number | | Organization | | | | + + + + + | [facility] | [address] | [place] [address] | | | [facility] | | | | | LABORATORY [facility] | | | | + + + + + Basic Metabolic Panel (06/13/2018 6:32 AM PDT) + + + + + + | Component | Value | Ref Range | Performed | Pathologist | | | | | At | Signature | + + + + + + | Na | 136 | 135 - 145 | [facility] | | | | | mmol/L | [facility]CR[facility] | | | | | | HEART | | | | | | MEDICAL | | | | | | CENTER | | | | | | LABORATORY | | | | | | [facility] | | + + + + + + | K | 4.9 | 3.5 - 5.0 | [facility] | | | | | mmol/L | [facility]CR[facility] | | | | | | HEART | | | | | | MEDICAL | | | | | | CENTER | | | | | | LABORATORY | | | | | | [facility] | | + + + + + + | Cl | 104 | 99 - 109 mmol/L | [facility] | | | | | | [facility] | | | | | | HEART | | | | | | MEDICAL | | | | | | CENTER | | | | | | LABORATORY | | | | | | [facility] | | + + + + + + | CO2 | 26 | 21 - 28 mmol/L | [facility] | | | | | | [facility] | | | | | | HEART | | | | | | MEDICAL | | | | | | CENTER | | | | | | LABORATORY | | | | | | [facility] | | + + + + + + | Anion Gap | 6 | 5 - 16 mmol/L | [facility] | | | | | | [facility] | | | | | | HEART | | | | | | MEDICAL | | | | | | CENTER | | | | | | LABORATORY | | | | | | [facility] | | + + + + + + | Calcium | 7.9 (L) | 8.5 - 10.2 | [facility] | | | | | mg/dL | SACR[facility] | | | | | | HEART | | | | | | MEDICAL | | | | | | CENTER | | | | | | LABORATORY | | | | | | [facility] | | + + + + + + | BUN | 23 | 8 - 25 mg/dL | [facility] | | | | | | [facility] | | | | | | HEART | | | | | | MEDICAL | | | | | | CENTER | | | | | | LABORATORY | | | | | | [facility] | | + + + + + + | Creatinine | 2.65 (H) | 0.70 - 1.30 | [facility] | | | | | mg/dL | [facility]CR[facility] | | | | | | HEART | | | | | | MEDICAL | | | | | | CENTER | | | | | | LABORATORY | | | | | | [facility] | | + + + + + + | Glucose | 102 (H) | 65 - 99 mg/dL | [facility] | | | | | | [facility] | | | | | | HEART | | | | | | MEDICAL | | | | | | CENTER | | | | | | LABORATORY | | | | | | [facility] | | + + + + + + | Estimated | 26 (L)Comment: eGFR<60 | >=90 | [facility] | | | GFR | consistent with impaired | mL/min/1.73m2 | SACRED | | | | kidney | | HEART | | | | function.Performed by | | MEDICAL | | | | [facility] [address], | | CENTER | | | | [place] [address] | | LABORATORY | | | | | | [facility] | | + + + + + + + + | Specimen | + + | Blood specimen | | (specimen) | + + + + + + + | Performing | Address | City/State/Zipcode | Phone Number | | Organization | | | | + + + + + | [facility] | [address] | [place] [address] | | | [facility] | | | | | LABORATORY [facility] | | | | + + + + + CBC no Differential (06/12/2018 5:44 AM PDT) + + + +-------- -----+ + | Component | Value | Ref Range | Perform ed | Pathologist | | | | | At | Signature | + + + +-------- -----+ + | WBC | 8.4 | 3.8 - 11.0 K/uL | [facility] | | | | | | [facility] | | | | | | HEART | | | | | | MEDICAL | | | | | | CENTER | | | | | | LAB[facility]AT [facility] | | | | | | [facility] | | + + + +-------- -----+ + | RBC | 3.50 (L) | 4.20 - 5.70 | [facility] | | | | | M/uL | SACRED | | | | | | HEART | | | | | | MEDICAL | | | | | | CENTER | | | | | | LABORAT [facility] | | | | | | [facility] | | + + + +-------- -----+ + | Hemoglobin | 11.5 (L) | 13.2 - 17.0 | [facility] | | | | | g/dL | [facility]CR[facility] | | | | | | HEART | | | | | | MEDICAL | | | | | | CENTER | | | | | | LABORAT [facility] | | | | | | [facility] | | + + + +-------- -----+ + | Hct | 34.1 (L) | 39.0 - 50.0 % | [facility] | | | | | | [facility] | | | | | | HEART | | | | | | MEDICAL | | | | | | CENTER | | | | | | LABORAT [facility] | | | | | | [facility] | | + + + +-------- -----+ + | MCV | 97.5 | 80.0 - 100.0 fL | [facility] | | | | | | [facility] | | | | | | HEART | | | | | | MEDICAL | | | | | | CENTER | | | | | | LABORAT [facility] | | | | | | [facility] | | + + + +-------- -----+ + | MCH | 33.0 | 27.0 - 34.0 pg | [facility] | | | | | | [facility] | | | | | | HEART | | | | | | MEDICAL | | | | | | CENTER | | | | | | LABORAT [facility] | | | | | | [facility] | | + + + +-------- -----+ + | MCHC | 33.8 | 32.0 - 35.5 | [facility] | | | | | g/dL | SACR[facility] | | | | | | HEART | | | | | | MEDICAL | | | | | | CENTER | | | | | | LABORAT [facility]Y | | | | | | [facility] | | + + + +-------- -----+ + | RDW-CV | 15.5 | 11.0 - 15.5 % | [facility] | | | | | | [facility] | | | | | | HEART | | | | | | MEDICAL | | | | | | CENTER | | | | | | LABORAT [facility] | | | | | | [facility] | | + + + +-------- -----+ + | Platelet | 293 | 150 - 400 K/uL | [facility] | | | Count | | | [facility]CR[facility] | | | | | | HEART | | | | | | MEDICAL | | | | | | CENTER | | | | | | LABORAT [facility] | | | | | | [facility] | | + + + +-------- -----+ + | MPV | 7.5Comment: Performed | 7.5 - 11.2 fL | [facility] | | | | by [facility] [address], | | SACRED | | | | [place] [address] | | HEART | | | |Performed by [facility] [address], [place] [address] | | MEDICAL | | | | | | CENTER | | | | | | LABORAT OR[facility] | | | | | | [facility] | | + + + +-------- -----+ + + + | Specimen | + + | Blood specimen | | (specimen) | + + + + + + + | Performing | Address | City/State/Zipcode | Phone Number | | Organization | | | | + + + + + | [facility] | [address] | [place] [address] | | | [facility] | | | | | LABORATORY [facility] | | | | + + + + + Basic Metabolic Panel (06/12/2018 5:44 AM PDT) + + + + + + | Component | Value | Ref Range | Performed | Pathologist | | | | | At | Signature | + + + + + + | Na | 138 | 135 - 145 | [facility] | | | | | mmol/L | [facility]CR[facility] | | | | | | HEART | | | | | | MEDICAL | | | | | | CENTER | | | | | | LABORATORY | | | | | | [facility] | | + + + + + + | K | 4.6 | 3.5 - 5.0 | [facility] | | | | | mmol/L | SACRED | | | | | | HEART | | | | | | MEDICAL | | | | | | CENTER | | | | | | LABORATORY | | | | | | [facility] | | + + + + + + | Cl | 104 | 99 - 109 mmol/L | [facility] | | | | | | [facility] | | | | | | HEART | | | | | | MEDICAL | | | | | | CENTER | | | | | | LABORATORY | | | | | | [facility] | | + + + + + + | CO2 | 28 | 21 - 28 mmol/L | [facility] | | | | | | [facility] | | | | | | HEART | | | | | | MEDICAL | | | | | | CENTER | | | | | | LABORATORY | | | | | | [facility] | | + + + + + + | Anion Gap | 6 | 5 - 16 mmol/L | [facility] | | | | | | [facility] | | | | | | HEART | | | | | | MEDICAL | | | | | | CENTER | | | | | | LABORATORY | | | | | | [facility] | | + + + + + + | Calcium | 7.9 (L) | 8.5 - 10.2 | [facility] | | | | | mg/dL | SACRED | | | | | | HEART | | | | | | MEDICAL | | | | | | CENTER | | | | | | LABORATORY | | | | | | [facility] | | + + + + + + | BUN | 24 | 8 - 25 mg/dL | [facility] | | | | | | [facility] | | | | | | HEART | | | | | | MEDICAL | | | | | | CENTER | | | | | | LABORATORY | | | | | | [facility] | | + + + + + + | Creatinine | 2.20 (H) | 0.70 - 1.30 | [facility] | | | | | mg/dL | SACRED | | | | | | HEART | | | | | | MEDICAL | | | | | | CENTER | | | | | | LABORATORY | | | | | | [facility] | | + + + + + + | Glucose | 104 (H) | 65 - 99 mg/dL | [facility] | | | | | | [facility] | | | | | | HEART | | | | | | MEDICAL | | | | | | CENTER | | | | | | LABORATORY | | | | | | [facility] | | + + + + + + | Estimated | 32 (L)Comment: eGFR<60 | >=90 | [facility] | | | GFR | consistent with impaired | mL/min/1.73m2 | SACRED | | | | kidney | | HEART | | | | function.Performed by | | MEDICAL | | | | [facility] [address], | | CENTER | | | | [place] [address] | | LABORATORY | | | | | | [facility] | | + + + + + + + + | Specimen | + + | Blood specimen | | (specimen) | + + + + + + + | Performing | Address | City/State/Zipcode | Phone Number | | Organization | | | | + + + + + | [facility] | [address] | [place] [address] | | | [facility] | | | | | LABORATORY [facility] | | | | + + + + + CBC no Differential (06/11/2018 6:04 PM PDT) + + + + + + | Component | Value | Ref Range | Performed | Pathologist | | | | | At | Signature | + + + + + + | WBC | 15.0 (H) | 3.8 - 11.0 K/uL | [facility] | | | | | | [facility] | | | | | | HEART | | | | | | MEDICAL | | | | | | CENTER | | | | | | LABORATORY | | | | | | [facility] | | + + + + + + | RBC | 3.57 (L) | 4.20 - 5.70 | [facility] | | | | | M/uL | [facility]CR[facility] | | | | | | HEART | | | | | | MEDICAL | | | | | | CENTER | | | | | | LABORATORY | | | | | | [facility] | | + + + + + + | Hemoglobin | 11.7 (L) | 13.2 - 17.0 | [facility] | | | | | g/dL | SACRED | | | | | | HEART | | | | | | MEDICAL | | | | | | CENTER | | | | | | LABORATORY | | | | | | [facility] | | + + + + + + | Hct | 34.4 (L) | 39.0 - 50.0 % | [facility] | | | | | | [facility] | | | | | | HEART | | | | | | MEDICAL | | | | | | CENTER | | | | | | LABORATORY | | | | | | [facility] | | + + + + + + | MCV | 96.3 | 80.0 - 100.0 fL | [facility] | | | | | | [facility] | | | | | | HEART | | | | | | MEDICAL | | | | | | CENTER | | | | | | LABORATORY | | | | | | [facility] | | + + + + + + | MCH | 32.9 | 27.0 - 34.0 pg | [facility] | | | | | | [facility] | | | | | | HEART | | | | | | MEDICAL | | | | | | CENTER | | | | | | LABORATORY | | | | | | [facility] | | + + + + + + | MCHC | 34.1 | 32.0 - 35.5 | [facility] | | | | | g/dL | [facility]CRED | | | | | | HEART | | | | | | MEDICAL | | | | | | CENTER | | | | | | LABORATORY | | | | | | [facility] | | + + + + + + | RDW-CV | 15.4 | 11.0 - 15.5 % | [facility] | | | | | | [facility] | | | | | | HEART | | | | | | MEDICAL | | | | | | CENTER | | | | | | LABORATORY | | | | | | [facility] | | + + + + + + | Platelet | 326 | 150 - 400 K/uL | [facility] | | | Count | | | [facility]CR[facility] | | | | | | HEART | | | | | | MEDICAL | | | | | | CENTER | | | | | | LABORATORY | | | | | | [facility] | | + + + + + + | MPV | 7.3 (L)Comment: | 7.5 - 11.2 fL | [facility] | | | | Performed by [facility] [address] | | SACRED | | | | [address] [place] | | HEART | | | | [address] | | MEDICAL | | | | | | CENTER | | | | | | LABORATORY | | | | | | [facility] | | + + + + + + + + | Specimen | + + | Blood specimen | | (specimen) | + + + + + + + | Performing | Address | City/State/Zipcode | Phone Number | | Organization | | | | + + + + + | [facility] | [address] | [place] [address] | | | [facility] | | | | | LABORATORY [facility] | | | | + + + + + Basic Metabolic Panel (06/11/2018 6:04 PM PDT) + + + + + + | Component | Value | Ref Range | Performed | Pathologist | | | | | At | Signature | + + + + + + | Na | 140 | 135 - 145 | [facility] | | | | | mmol/L | SACRED | | | | | | HEART | | | | | | MEDICAL | | | | | | CENTER | | | | | | LABORATORY | | | | | | [facility] | | + + + + + + | K | 4.9 | 3.5 - 5.0 | [facility] | | | | | mmol/L | SACRED | | | | | | HEART | | | | | | MEDICAL | | | | | | CENTER | | | | | | LABORATORY | | | | | | [facility] | | + + + + + + | Cl | 104 | 99 - 109 mmol/L | [facility] | | | | | | [facility] | | | | | | HEART | | | | | | MEDICAL | | | | | | CENTER | | | | | | LABORATORY | | | | | | [facility] | | + + + + + + | CO2 | 29 (H) | 21 - 28 mmol/L | [facility] | | | | | | [facility]CR[facility] | | | | | | HEART | | | | | | MEDICAL | | | | | | CENTER | | | | | | LABORATORY | | | | | | [facility] | | + + + + + + | Anion Gap | 7 | 5 - 16 mmol/L | [facility] | | | | | | [facility] | | | | | | HEART | | | | | | MEDICAL | | | | | | CENTER | | | | | | LABORATORY | | | | | | [facility] | | + + + + + + | Calcium | 7.9 (L) | 8.5 - 10.2 | [facility] | | | | | mg/dL | SACRED | | | | | | HEART | | | | | | MEDICAL | | | | | | CENTER | | | | | | LABORATORY | | | | | | [facility] | | + + + + + + | BUN | 23 | 8 - 25 mg/dL | [facility] | | | | | | [facility] | | | | | | HEART | | | | | | MEDICAL | | | | | | CENTER | | | | | | LABORATORY | | | | | | [facility] | | + + + + + + | Creatinine | 1.76 (H) | 0.70 - 1.30 | [facility] | | | | | mg/dL | SACRED | | | | | | HEART | | | | | | MEDICAL | | | | | | CENTER | | | | | | LABORATORY | | | | | | [facility] | | + + + + + + | Glucose | 129 (H) | 65 - 99 mg/dL | [facility] | | | | | | [facility] | | | | | | HEART | | | | | | MEDICAL | | | | | | CENTER | | | | | | LABORATORY | | | | | | [facility] | | + + + + + + | Estimated | 42 (L)Comment: eGFR<60 | >=90 | [facility] | | | GFR | consistent with impaired | mL/min/1.73m2 | SACRED | | | | kidney | | HEART | | | | function.Performed by | | MEDICAL | | | | [facility] [address], | | CENTER | | | | [place] [address] | | LABORATORY | | | | | | MAO | | + + + + + + + + | Specimen | + + | Blood specimen | | (specimen) | + + + + + + + | Performing | Address | City/State/Zipcode | Phone Number | | Organization | | | | + + + + + | [facility] | [address] | [place] [address] | | | [facility] | | | | | STEPHEN CAVANAUGH | | | | + + + + + Tissue Request For Pathology (06/11/2018 2:57 PM PDT) + + | Specimen | + + | | + + + + + | Narrative | Performed At | + + + | | [facility] | | LILY VALENTIN | [place] | | : 1960 AGE: 58 years SEX: Male | MEDICAL CENTER | | | LABORATORY | | Acct: [id number] Location: | [facility] | | [facility] SURG; 552; 552-02 Case #: | | | [id number] Ordering: PATRICE CROSS MD | | | Client: [facility] | | | Copy To: Printed: | | | 06/18/2018 12:37 PST | | | SURGICAL PATHOLOGY FINAL REPORTCollected: | | | Received: Responsible | | | Pathologist:06/11/2018 14:57 PDT 06/11/2018 16:06 | | | PDT DIANNA RICARDO DIAGNOSIS:A. Lymph | | | nodes, hilar, dissection: | | | No lymph nodes are recovered (all tissue processed and examined | | | microscopically).B. Left kidney, nephrectomy: | | | Multiple angiomyolipomas: | | | Angiomyolipoma, 3.8 cm in greatest dimension, posterior | | | interpolar region. | | | Angiomyolipoma, 3.1 cm in greatest dimension, upper pole. 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 | | | All margins of resection are free of involvement. | | | Non-neoplastic kidney with moderate arteriosclerosis, and | | | approximately 10% tubular atrophy and interstitial | | | fibrosis.0MTR/RF 06/12/18 02:16 pmVerified by: DIANNA RICARDO | | | MDVerify Date: 06/18/2018 12:37 pmPerforming Location: [facility] | | | [facility], [facility] [id number] | | | DESCRIPTION:This case is received in two parts.Specimen A labeled and | | | designated "Valentin, hilar lymph nodes" is received in formalin and | | | consists of an unoriented, irregular aggregate of yellow, lobulated | | | soft tissue measuring 3.1 x 3.0 x 0.6 cm. The specimen is palpated | | | to reveal no distinct lymph node candidates or lymphoid tissue. The | | | specimen is submitted entirely in "A1-A3".Specimen B labeled and | | | designated "Valentin, left kidney" is received in formalin and consists | | | of an intact but bisected left nephrectomy specimen measuring 16.5 x | | | 8.3 x 4.5 cm and weighing 756 g. There is a copious amount of | | | perinephric adipose tissue measuring up to 8.1 cm in greatest | | | dimension. The specimen is remarkable for an intact ureter measuring | | | 6.1 cm in length x 0.4 cm in diameter. Also identified are the | | | renal artery and vein measuring 2.1 cm in length and 0.4 cm and 0.5 cm | | | in diameter respectively. The mucosa of the ramirez-pale pink and | | | glistening ureter is ramirez-white and glistening. The kidney | | | measures 10.1 x 6.8 x 6.4 cm. The cut surface of the renal parenchyma | | | is ramirez-brown and glistening, with a well-defined corticomedullary | | | junction. The pelvis is not dilated. The surrounding perinephric | | | adipose tissue is serially sectioned and palpated to reveal no | | | distinct lymph node candidates. | | | SURGICAL PATHOLOGY FINAL REPORTCollected: | | | Received: | | | Responsible Pathologist:06/11/2018 14:57 PDT | | | 06/11/2018 16:06 PDT DIANNA RICARDO | | | DESCRIPTION:Three masses are grossly identified within the specimen:In | | | the posterior lower mid kidney there is a complex ramirez-white focally | | | friable mass measuring 4.4 x 3.5 x 3.3 cm. It may in fact represent | | | two adjacent masses. The tumor has an intrarenal component measuring | | | 1.5 cm in greatest dimension, and a contiguous nodular mass 2.8 cm in | | | greatest dimension which projects into the perirenal adipose tissue. | | | The mass is located 1.3 cm from the closest renal pelvis and sinus | | | fat. It is also grossly located 8.4 cm from the closest ureteral | | | margin and is 6.1 cm from the closest renal sinus and renal vein | | | margins.A separate and distinct unilocular, thin-walled, smooth-lined | | | cyst located within the lower pole measuring up to 1.8 cm is | | | identified grossly. The distance between this cyst and the above | | | described interpolar mass is 10.5 cm.In the upper pole a ramirez-white | | | mass measuring 3.1 x 2.8 x 2.4 cm is found. This mass appears | | | appears to arise from the renal surface and project into the | | | perinephric adipose tissue. It is grossly located 9.2 cm from the | | | ureteral and renal vasculature margins.Leather Fitter sections are | | | submitted as follows: "B1" - renal vein and artery margin, inked | | | blue and submitted en face, and ureter margin, inked black and | | | submitted en face; "B2-B3" - random sections of interpolar mass | | | including surrounding unremarkable renal tissue and closest approach | | | to sinus fat; "B4-B6" - random sections of interpolar mass including | | | the interface with surrounding perinephric adipose tissue; "B7" - | | | lower pole cystic mass; "B8" - unremarkable renal pelvis and sinus | | | fat. Leather Fitter sections are submitted during second look with | | | Jc on 06/12/18 as follows: "B9-B10" - upper pole mass including | | | surrounding renal parenchyma; "B11-B12" - upper pole lesion including | | | interface with perinephric adipose tissue.CT/[id number] | | | DESCRIPTION:Histologic sections of all submitted blocks are examined | | | by light microscopy. Thesefindings, together with the gross | | | examination, support the pathologic diagnosis. | | + + + + + + + + | Performing | Address | City/State/Zipcode | Phone Number | | Organization | | | | + + + + + | [facility] | [address] | [place] [address] | | | [facility] | | | | | STEPHEN CAVANAUGH | | | | + + + + + ABO Rh (06/11/2018 1:10 PM PDT) + + + + + + | Component | Value | Ref Range | Performed | Pathologist | | | | | At | Signature | + + + + + + | ABO | A | | REFERENCE | | | | | | [facility] | | | | | | [facility] | | | | [facility] | | | | [facility] | | | | | [facility] | | + + + + + + | Rh Type | PositiveComment: Patient | | REFERENCE | | | | is remote crossmatch | | LAB [facility] | | | | eligible | | [facility] | | | | | | [facility] | | | | | [facility] | | | | | | [facility] | | + + + + + + + + | Specimen | + + | | + + + + + | Narrative | Performed At | + + + | Specimen Expiration Date: [id number] | REFERENCE LAB | | | [facility] | | | [facility] | | [facility] | + + + + + + + + | Performing | Address | City/State/Zipcode | Phone Number | | Organization | | | | + + + + + | REFERENCE LAB | [address] | [place] [address] | [phone] | | [facility] | | | | | [facility] | | | | [facility] | | | | + + + + + Type and Screen (06/11/2018 12:50 PM PDT) + + + + + + | Component | Value | Ref Range | Performed | Pathologist | | | | | At | Signature | + + + + + + | ABO | A | | REFERENCE | | | | | | [facility] | | | | | | [facility] | | | | | | [facility] | | | | | [facility] | | | | | | [facility] | | + + + + + + | Rh Type | Positive | | REFERENCE | | | | | | [facility] | | | | | | [facility] | | | | | | [facility] | | | | | [facility] | | | | | | [facility] | | + + + + + + | Antibody | Negative | | REFERENCE | | | Screen | | | [facility] | | | | | | [facility] | | | | | | [facility] | | | | | [facility] | | | | | | [facility] | | + + + + + + + + | Specimen | + + | Blood specimen | | (specimen) | + + + + + | Narrative | Performed At | + + + | Specimen Expiration Date: [id number] | REFERENCE LAB | | | [facility] | | | [facility] | + + + + + + + + | Performing | Address | City/State/Zipcode | Phone Number | | Organization | | | | + + + + + | REFERENCE LAB | [address] | [place] [address] | [phone] | | [facility] | | | | | [facility] | | | | [facility] | | | | + + + + + POC Glucose (06/11/2018 12:49 PM PDT) + + + + + + | Component | Value | Ref Range | Performed | Pathologist | | | | | At | Signature | + + + + + + | Glucose, | 113 (H)Comment: | 65 - 99 mg/dL | [facility] | | | POC | Performed by [facility] [address] | | | | [address], [place] | | HEART | | | | [address] | | MEDICAL | | | | | | CENTER | | | | | | LABORATORY | | | | | | [facility] | | + + + + + + + + | Specimen | + + | Blood specimen | | (specimen) | + + + + + + + | Performing | Address | City/State/Zipcode | Phone Number | | Organization | | | | + + + + + | [facility] | [address] | [place] [address] | | | [facility] | | | | | [facility] | | | | + + + + + LABS - EXTERNAL SCAN (06/09/2018 12:00 AM PDT) + + + | Narrative | Performed At | + + + | Ordered by an | | | unspecified provider. 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 | + + documented in this encounter Administered Medications + +--------+ + +------+------+ | Medication Order | MAR | Action | Dose | Rate | Site | | | Action | Date | | | | + +--------+ + +------+------+ | acetaminophen (TYLENOL) tablet | Given | 06/11/20 | 1,000 mg | | | | 1,000 mg 1,000 mg, Oral, ONCE, | | 18 1:05 | | | | | 06/11/18 at 1230, For 1 dose, | | PM PDT | | | | | Hold for h/o liver failure., | | | | | | | Pre-op | | | | | | + +--------+ + +------+------+ +---+---+ | | | +---+---+ + +-------+ + +---+---+ | acetaminophen (TYLENOL) tablet | Given | 06/14/20 | 1,000 mg | | | | 1,000 mg 1,000 mg, Oral, EVERY 8 | | 18 2:16 | | | | | HOURS (3 times per day), First | | PM PDT | | | | | dose on Sat06/11/18 at 2200, For | | | | | | | 3 days, Max tylenol 4000mg per | | | | | | | 24hrs, , Post-op/Phase II | | | | | | + +-------+ + +---+---+ +-------+ + +---+---+ | Given | 06/14/20 | 1,000 mg | | | | | 18 6:48 | | | | | | AM PDT | | | | +-------+ + +---+---+ | Given | 06/13/20 | 1,000 mg | | | | | 18 9:09 | | | | | | PM PDT | | | | +-------+ + +---+---+ +---+---+ | | | +---+---+ + +-------+ +--------+---+---+ | acetaminophen (TYLENOL) tablet | Given | 06/18/20 | 500 mg | | | | 500 mg 500 mg, Oral, EVERY 6 | | 18 9:44 | | | | | HOURS PRN, Pain, Starting Wed | | AM PST | | | | | 06/11/18 at 1740, Post-op/Phase | | | | | | | II | | | | | | + +-------+ +--------+---+---+ +-------+ +--------+---+---+ | Given | 06/17/20 | 500 mg | | | | | 18 5:14 | | | | | | PM PST | | | | +-------+ +--------+---+---+ | Given | 06/16/20 | 500 mg | | | | | 18 9:03 | | | | | | PM PST | | | | +-------+ +--------+---+---+ +---+---+ | | | +---+---+ + +-------+ +-------+---+---+ | atorvaSTATin (LIPITOR) tablet | Given | 06/18/20 | 80 mg | | | | 80 mg 80 mg, Oral, NIGHTLY, | | 18 9:34 | | | | | First dose on Sat06/11/18 at | | PM PST | | | | | 2100, Post-op/Phase II | | | | | | + +-------+ +-------+---+---+ +-------+ +-------+---+---+ | Given | 06/17/20 | 80 mg | | | | | 18 8:24 | | | | | | PM PST | | | | +-------+ +-------+---+---+ | Given | 06/16/20 | 80 mg | | | | | 18 9:03 | | | | | | PM PST | | | | +-------+ +-------+---+---+ +---+---+ | | | +---+---+ + +-------+ +-------+---+---+ | bisacodyl (DULCOLAX) | Given | 06/15/20 | 10 mg | | | | suppository 10 mg 10 mg, Rectal, | | 18 1:43 | | | | | DAILY PRN, Constipation, | | AM PDT | | | | | Starting Sat06/11/18 at 1740, | | | | | | | Post-op/Phase II | | | | | | + +-------+ +-------+---+---+ +---+---+ | | | +---+---+ + +-------+ +---------+---+---+ | carvedilol (COREG) tablet 6.25 | Given | 06/19/20 | 6.25 mg | | | | mg 6.25 mg, Oral, 2 TIMES DAILY | | 18 8:20 | | | | | WITH BREAKFAST & DINNER, First | | AM PST | | | | | dose on Sat06/11/18 at 1800, | | | | | | | Post-op/Phase II | | | | | | + +-------+ +---------+---+---+ +-------+ +---------+---+---+ | Given | 06/18/20 | 6.25 mg | | | | | 18 6:24 | | | | | | PM PST | | | | +-------+ +---------+---+---+ | Given | 06/18/20 | 6.25 mg | | | | | 18 9:23 | | | | | | AM PST | | | | +-------+ +---------+---+---+ +---+---+ | | | +---+---+ + +-------+ +--------+---+---+ | cyanocobalamin (VITAMIN B-12) | Given | 06/19/20 | 1,000 | | | | tablet 1,000 mcg 1,000 mcg, | | 18 8:24 | mcg | | | | Oral, DAILY, First dose on Sat | | AM PST | | | | | 06/11/18 at 1800, Post-op/Phase | | | | | | | II | | | | | | + +-------+ +--------+---+---+ +-------+ +--------+---+---+ | Given | 06/18/20 | 1,000 | | | | | 18 9:22 | mcg | | | | | AM PST | | | | +-------+ +--------+---+---+ | Given | 06/17/20 | 1,000 | | | | | 18 9:47 | mcg | | | | | AM PST | | | | +-------+ +--------+---+---+ + +---+ | | | + +---+ | diphenhydrAMINE (BENADRYL) 12.5 | | | mg/5 mL liquid 25 mg 25 mg, | | | Oral, EVERY 4 HOURS PRN, Itching, | | | Starting Sat06/11/18 at 1740, | | | Oral route is preferred., | | | Post-op/Phase II | | + +---+ | | | + +---+ | diphenhydrAMINE (BENADRYL) | | | injection 12.5 mg 12.5 mg, | | | Intravenous, EVERY 4 HOURS PRN, | | | Itching, Starting Sat06/11/18 at | | | 1740, Oral route is preferred., | | | Post-op/Phase II | | + +---+ | | | + +---+ + +-------+ +-------+---+---+ | diphenhydrAMINE (BENADRYL) | Given | 06/13/20 | 25 mg | | | | tablet 25 mg 25 mg, Oral, | | 18 9:38 | | | | | 4 HOURS PRN, Itching, Starting | | AM PDT | | | | | 06/11/18 at 1740, Oral route | | | | | | | is preferred., Post-op/Phase II | | | | | | + +-------+ +-------+---+---+ +---+---+ | | | +---+---+ + +-------+ +--------+---+---+ | docusate sodium (COLACE) | Given | 06/19/20 | 100 mg | | | | capsule 100 mg 100 mg, Oral, 2 | | 18 8:24 | | | | | TIMES DAILY, First dose (after | | AM PST | | | | | last modification) on 06/14/18 | | | | | | | at 0900, First line agent for | | | | | | | constipation, Post-op/Phase II | | | | | | + +-------+ +--------+---+---+ +-------+ +--------+---+---+ | Given | 06/18/20 | 100 mg | | | | | 18 9:34 | | | | | | PM PST | | | | +-------+ +--------+---+---+ | Given | 06/18/20 | 100 mg | | | | | 18 9:22 | | | | | | AM PST | | | | +-------+ +--------+---+---+ +---+---+ | | | +---+---+ + +-------+ +-------+---+---+ | famotidine (PEPCID) tablet 20 | Given | 06/13/20 | 20 mg | | | | mg 20 mg, Oral, 2 TIMES DAILY, | | 18 8:53 | | | | | First dose on Sat06/11/18 at | | AM PDT | | | | | 2100, Post-op/Phase II | | | | | | + +-------+ +-------+---+---+ +-------+ +-------+---+---+ | Given | 06/12/20 | 20 mg | | | | | 18 8:20 | | | | | | PM PDT | | | | +-------+ +-------+---+---+ | Given | 06/12/20 | 20 mg | | | | | 18 8:57 | | | | | | AM PDT | | | | +-------+ +-------+---+---+ +---+---+ | | | +---+---+ + +-------+ +-------+---+---+ | famotidine (PEPCID) tablet 20 | Given | 06/19/20 | 20 mg | | | | mg 20 mg, Oral, DAILY, First | | 18 8:22 | | | | | dose (after last modification) on | | AM PST | | | | | 06/14/18 at 0900, Renally | | | | | | | dosed per P&T approval., | | | | | | | Post-op/Phase II | | | | | | + +-------+ +-------+---+---+ +-------+ +-------+---+---+ | Given | 06/18/20 | 20 mg | | | | | 18 9:22 | | | | | | AM PST | | | | +-------+ +-------+---+---+ | Given | 06/17/20 | 20 mg | | | | | 18 9:47 | | | | | | AM PST | | | | +-------+ +-------+---+---+ +---+---+ | | | +---+---+ + +-------+ +--------+---+---+ | gabapentin (NEURONTIN) capsule | Given | 06/12/20 | 100 mg | | | | 100 mg 100 mg, Oral, 3 TIMES | | 18 8:56 | | | | | DAILY, First dose on Sat06/11/18 | | AM PDT | | | | | at 2100, For 3 days, Hold for | | | | | | | over-sedation, dizziness or | | | | | | | visual disturbance and contact | | | | | | | MD., Post-op/Phase II | | | | | | + +-------+ +--------+---+---+ +-------+ +--------+---+---+ | Given | 06/11/20 | 100 mg | | | | | 18 10:02 | | | | | | PM PDT | | | | +-------+ +--------+---+---+ +---+---+ | | | +---+---+ + +-------+ +-------+---+---+ | hydrALAZINE (APRESOLINE) | Given | 06/11/20 | 10 mg | | | | injection 10 mg 10 mg, | | 18 4:40 | | | | | Intravenous, EVERY 30 MIN PRN, | | PM PDT | | | | | SBP > 180 DBP > 80 HR < 90, | | | | | | | Starting Sat06/11/18 at 1604, | | | | | | | Recovery/Phase I | | | | | | + +-------+ +-------+---+---+ +---+---+ | | | +---+---+ + +-------+ +-------+---+---+ | hydrALAZINE (APRESOLINE) tablet | Given | 06/19/20 | 50 mg | | | | 50 mg 50 mg, Oral, 3 TIMES | | 18 8:23 | | | | | DAILY, First dose on Sat06/11/18 | | AM PST | | | | | at 2100, Post-op/Phase II | | | | | | + +-------+ +-------+---+---+ +-------+ +-------+---+---+ | Given | 06/18/20 | 50 mg | | | | | 18 9:34 | | | | | | PM PST | | | | +-------+ +-------+---+---+ | Given | 06/18/20 | 50 mg | | | | | 18 2:27 | | | | | | PM PST | | | | +-------+ +-------+---+---+ +---+---+ | | | +---+---+ + +-------+ +-------+---+---+ | isosorbide mononitrate (IMDUR) | Given | 06/19/20 | 60 mg | | | | ER tablet 60 mg 60 mg, Oral, | | 18 8:21 | | | | | DAILY, First dose on Sat06/11/18 | | AM PST | | | | | at 1800, Post-op/Phase II | | | | | | + +-------+ +-------+---+---+ +-------+ +-------+---+---+ | Given | 06/18/20 | 60 mg | | | | | 18 9:22 | | | | | | AM PST | | | | +-------+ +-------+---+---+ | Given | 06/17/20 | 60 mg | | | | | 18 9:47 | | | | | | AM PST | | | | +-------+ +-------+---+---+ +---+---+ | | | +---+---+ + +---------+ +---+---+---+ | lactated ringers (LR) infusion | New Bag | 06/11/20 | | | | | at 10-100 mL/hr, Intravenous, | | 18 2:53 | | | | | CONTINUOUS, Starting Sat06/11/18 | | PM PDT | | | | | at 1230, TKO., Pre-op | | | | | | + +---------+ +---+---+---+ +---------+ +---+ +---+ | New Bag | 06/11/20 | | 25 mL/hr | | | | 18 12:50 | | | | | | PM PDT | | | | +---------+ +---+ +---+ +---+---+ | | | +---+---+ + +-------+ +--------+---+---+ | magnesium oxide (MAG-OX) tablet | Given | 06/19/20 | 400 mg | | | | 400 mg 400 mg, Oral, DAILY, | | 18 8:21 | | | | | First dose on Sat06/11/18 at | | AM PST | | | | | 1800, Post-op/Phase II | | | | | | + +-------+ +--------+---+---+ +-------+ +--------+---+---+ | Given | 06/18/20 | 400 mg | | | | | 18 9:23 | | | | | | AM PST | | | | +-------+ +--------+---+---+ | Given | 06/17/20 | 400 mg | | | | | 18 9:47 | | | | | | AM PST | | | | +-------+ +--------+---+---+ +---+---+ | | | +---+---+ + +-------+ +-------+---+---+ | metoclopramide (REGLAN) 5 mg/mL | Given | 06/15/20 | 10 mg | | | | injection 10 mg 10 mg, | | 18 12:51 | | | | | Intravenous, EVERY 4 HOURS PRN, | | AM PDT | | | | | Nausea, Vomiting, Starting Wed | | | | | | | 06/11/18 at 1740, Use if | | | | | | | ondansetron and prochlorperazine | | | | | | | ineffective after 30 minutes or | | | | | | | not ordered Use PO option unless | | | | | | | NPO status or unable to tolerate | | | | | | | Protect from light., | | | | | | | Post-op/Phase II | | | | | | + +-------+ +-------+---+---+ +---+---+ | | | +---+---+ + +-------+ +---+---+---+ | miconazole (MICATIN) 2% powder | Given | 06/19/20 | | | | | Topical, 2 TIMES DAILY, First | | 18 9:00 | | | | | dose on Sat06/11/18 at 2100, And | | AM PST | | | | | PRN for yeastly skin folds., | | | | | | + +-------+ +---+---+---+ +-------+ +---+---+---+ | Given | 06/18/20 | | | | | | 18 9:46 | | | | | | PM PST | | | | +-------+ +---+---+---+ | Given | 06/18/20 | | | | | | 18 9:24 | | | | | | AM PST | | | | +-------+ +---+---+---+ +---+---+ | | | +---+---+ + + + +--------+---+---+ | morphine 5 mg/mL CARPENTER REFRIGERATOR syringe | Rate/Dos | 06/13/20 | 150 mg | | | | Intravenous, CONTINUOUS, Starting | e | 18 11:38 | | | | | 06/11/18 at 1800, for | Change-D | AM PDT | | | | | adult patients LESS than 65 years | ual Sign | | | | | | old and NO risk of sleep | | | | | | | apnea, Post-op/Phase II, | | | | | | | Loading Dose(mg): 0, Starting CARPENTER REFRIGERATOR | | | | | | | Dose(mg): 1, Incremental | | | | | | | Increase CARPENTER REFRIGERATOR Dose(mg): 0.5, | | | | | | | Maximum CARPENTER REFRIGERATOR Dose(mg): 2, Lockout | | | | | | | Interval(min): 10, One Hour | | | | | | | Limit(mg): 15 | | | | | | + + + +--------+---+---+ +---------+ +--------+---+---+ | New Bag | 06/11/20 | 150 mg | | | | | 18 6:16 | | | | | | PM PDT | | | | +---------+ +--------+---+---+ +---+---+ | | | +---+---+ + +-------+ +---+---+---+ | nystatin (MYCOSTATIN) powder | Given | 06/19/20 | | | | | Topical, 2 TIMES DAILY, First | | 18 9:00 | | | | | dose on Maida 06/12/18 at 0900, | | AM PST | | | | | Sprinkle powder on affected | | | | | | | area., | | | | | | + +-------+ +---+---+---+ +-------+ +---+---+---+ | Given | 06/18/20 | | | | | | 18 9:46 | | | | | | PM PST | | | | +-------+ +---+---+---+ | Given | 06/18/20 | | | | | | 18 9:24 | | | | | | AM PST | | | | +-------+ +---+---+---+ +---+---+ | | | +---+---+ + +-------+ +------+---+---+ | ondansetron (ZOFRAN ODT) | Given | 06/14/20 | 4 mg | | | | disintegrating tablet 4 mg 4 mg, | | 18 11:04 | | | | | Oral, EVERY 6 HOURS PRN, Nausea, | | PM PDT | | | | | Vomiting, Starting 06/11/18 | | | | | | | at 1740, First line agent, | | | | | | | Post-op/Phase II | | | | | | + +-------+ +------+---+---+ +---+---+ | | | +---+---+ + +-------+ +-------+---+---+ | oxyCODONE (ROXICODONE) tablet | Given | 06/18/20 | 10 mg | | | | 2.5-15 mg 2.5-15 mg, Oral, EVERY | | 18 9:34 | | | | | 3 HOURS PRN, Pain, Starting Wed | | PM PST | | | | | 06/11/18 at 1740, First dose must | | | | | | | be the lowest dose, can titrate | | | | | | | to effective dose by repeat of | | | | | | | lowest dose every 60 minutes prn | | | | | | | pain, may not exceed maximum dose | | | | | | | ordered per interval. Use Pasero | | | | | | | Sedation Scale., Post-op/Phase | | | | | | | II | | | | | | + +-------+ +-------+---+---+ +-------+ +-------+---+---+ | Given | 06/17/20 | 10 mg | | | | | 18 1:51 | | | | | | PM PST | | | | +-------+ +-------+---+---+ | Given | 06/17/20 | 10 mg | | | | | 18 8:01 | | | | | | AM PST | | | | +-------+ +-------+---+---+ +---+---+ | | | +---+---+ + +-------+ +------+---+---+ | polyethylene glycol (MIRALAX) | Given | 06/15/20 | 17 g | | | | powder 17 g 17 g, Oral, DAILY | | 18 12:50 | | | | | PRN, Constipation, Starting Wed | | AM PDT | | | | | 06/11/18 at 1740, Constipation, | | | | | | | Post-op/Phase II | | | | | | + +-------+ +------+---+---+ +-------+ +------+---+---+ | Given | 06/14/20 | 17 g | | | | | 18 9:49 | | | | | | AM PDT | | | | +-------+ +------+---+---+ +---+---+ | | | +---+---+ + +-------+ +---+---+---+ | Practitioner to dose warfarin | Given | 06/14/20 | | | | | LIP TO DOSE WARFARIN, Starting | | 18 6:00 | | | | | 06/14/18 at 1800 | | PM PDT | | | | + +-------+ +---+---+---+ +---+---+ | | | +---+---+ + +-------+ +--------+---+---+ | senna (SENOKOT) tablet 8.6 mg | Given | 06/15/20 | 8.6 mg | | | | 8.6 mg, Oral, 2 TIMES DAILY PRN, | | 18 8:08 | | | | | Constipation, Starting Wed | | PM PST | | | | | 06/11/18 at 1740, If docusate | | | | | | | ineffective or not ordered, | | | | | | | Post-op/Phase II | | | | | | + +-------+ +--------+---+---+ +-------+ +--------+---+---+ | Given | 06/15/20 | 8.6 mg | | | | | 18 12:51 | | | | | | AM PDT | | | | +-------+ +--------+---+---+ | Given | 06/14/20 | 8.6 mg | | | | | 18 9:49 | | | | | | AM PDT | | | | +-------+ +--------+---+---+ + +---+ | | | + +---+ | sodium chloride (OCEAN) 0.65% | | | nasal spray 1-2 spray 1-2 spray, | | | Each Nare, EVERY 2 HOURS PRN, | | | Nasal Dryness, nasal congestion, | | | Starting 06/17/18 at 0513 | | + +---+ | | | + +---+ + +---------+ +---+-------+---+ | sodium chloride 0.9% (NS) | New Bag | 06/16/20 | | 100 | | | infusion at 100 mL/hr, | | 18 5:21 | | mL/hr | | | Intravenous, CONTINUOUS, Starting | | AM PST | | | | | 06/11/18 at 1800, | | | | | | | Post-op/Phase II | | | | | | + +---------+ +---+-------+---+ +---------+ +---+-------+---+ | New Bag | 06/15/20 | | 100 | | | | 18 9:20 | | mL/hr | | | | PM PST | | | | +---------+ +---+-------+---+ | New Bag | 06/15/20 | | 100 | | | | 18 1:43 | | mL/hr | | | | AM PDT | | | | +---------+ +---+-------+---+ +---+---+ | | | +---+---+ + +-------+ +--------+---+---+ | spironolactone (ALDACTONE) | Given | 06/19/20 | 100 mg | | | | tablet 100 mg 100 mg, Oral, | | 18 8:24 | | | | | DAILY, First dose on Sat06/11/18 | | AM PST | | | | | at 1800, Hazardous: Use | | | | | | | appropriate handling | | | | | | | precautions., Post-op/Phase II | | | | | | + +-------+ +--------+---+---+ +-------+ +--------+---+---+ | Given | 06/18/20 | 100 mg | | | | | 18 9:22 | | | | | | AM PST | | | | +-------+ +--------+---+---+ | Given | 06/17/20 | 100 mg | | | | | 18 9:47 | | | | | | AM PST | | | | +-------+ +--------+---+---+ +---+---+ | | | +---+---+ + +-------+ +--------+---+---+ | tamsulosin (FLOMAX) capsule 0.4 | Given | 06/19/20 | 0.4 mg | | | | mg 0.4 mg, Oral, DAILY AFTER | | 18 8:24 | | | | | BREAKFAST, First dose on Fri | | AM PST | | | | | 06/13/18 at 1315, May open capsule | | | | [...] +-------+ +--------+---+---+ +-------+ +--------+---+---+ | Given | 06/18/20 | 0.4 mg | | | | | 18 9:22 | | | | | | AM PST | | | | +-------+ +--------+---+---+ | Given | 06/17/20 | 0.4 mg | | | | | 18 9:47 | | | | | | AM PST | | | | +-------+ +--------+---+---+ +---+---+ | | | +---+---+ + +-------+ +-------+---+---+ | torsemide (DEMADEX) tablet 20 | Given | 06/19/20 | 20 mg | | | | mg 20 mg, Oral, DAILY, First | | 18 8:25 | | | | | dose on Sat06/11/18 at 1800, | | AM PST | | | | | Post-op/Phase II | | | | | | + +-------+ +-------+---+---+ +-------+ +-------+---+---+ | Given | 06/18/20 | 20 mg | | | | | 18 9:23 | | | | | | AM PST | | | | +-------+ +-------+---+---+ | Given | 06/17/20 | 20 mg | | | | | 18 9:47 | | | | | | AM PST | | | | +-------+ +-------+---+---+ +---+---+ | | | +---+---+ + +-------+ +-------+---+---+ | warfarin (COUMADIN) tablet 10 | Given | 06/18/20 | 10 mg | | | | mg 10 mg, Oral, DAILY EVENING, | | 18 6:24 | | | | | First dose on 06/14/18 at | | PM PST | | | | | 1800, Reproductive Risk: Use | | | | | | | appropriate handling | | | | | | | precautions., | | | | | | + +-------+ +-------+---+---+ +-------+ +-------+---+---+ | Given | 06/17/20 | 10 mg | | | | | 18 5:14 | | | | | | PM PST | | | | +-------+ +-------+---+---+ | Given | 06/16/20 | 10 mg | | | | | 18 5:38 | | | | | | PM PST | | | | +-------+ +-------+---+---+ +---+---+ | | | +---+---+ documented in this encounter
--- OUTSIDE RECORDS SUMMARY | ~2019-12-19 | XMS | Encounter Summary ---
Demographics + + + | Address | [address] [address] | | | [place] [address] | + + + | Home Phone | | + + + | Preferred Language | Unknown | + + + | Marital Status | Single | + + + | Yarsani Affiliation | [id number] | + + + | Race | Unknown | + + + | Ethnic Group | Unknown | + + + Author + + + | Author | [facility] | | | and [place] | + + + | Organization | [facility] | | | [...] Team Providers + +------+ + | Care Child Development Professor Name | Role | Phone | + +------+ + | Sarah Carroll MD | PCP | | + +------+ + Reason for Visit +--------+ + | Reason | Comments | +--------+ + | Other | | +--------+ + Encounter Details +--------+ + + + + | Date | Type | Department | Care Team | Description | +--------+ + + + + | 02/06/ | Telephone | [facility] | Patrice Cross MD | Other | | 2018 | | [address] [place] | [address] | | | | | [address] [place], [place] | [address] [place], [place] | | | | | [phone] | [id number] | | | | | [phone] | | | +--------+ + + + [...] [place] | | | | | | [address] | | | | | | | | +--------+---------+ + + + documented as of this encounter Visit Diagnoses Not on filedocumented in this encounter"
--- OUTSIDE RECORDS SUMMARY | ~2019-12-19 | XMS | Encounter Summary ---
Demographics + + + | Address | [address] [address] | | | [place] [address] | + + + | Home Phone | | + + + | Preferred Language | Unknown | + + + | Marital Status | Single | + + + | Buddhist Affiliation | 1077 | + + + | Race | Unknown | + + + | Ethnic Group | Unknown | + + + Author + + + | Author | [facility] | | | and [place] | + + + | Organization | [facility] | | | [...] Team Providers + +------+ + | Care Wall Washer Name | Role | Phone | + [...] | | | Practitioner | Chronic | Saarh Gallegos MD | Ilenaa Gonzalez, | | | | / Cardiology | combined | [address] | 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 [address] | | | | | systolic | Aldair Castaneda | ELSA AMAYA | | | | | (congestive) | [place] | [address] [address] | | | | | and | [place] [address] | [place], [place] | | | | | diastolic | Phone: | [phone] Phone: | | | | | (congestive) | [phone] | [phone] | | | | | heart | Fax: | Fax: | | | | | failure | [phone] | [phone] | | | | | (HCC) 6 | | | | | | | month f/u | | | | | | | Procedures | | | | | | | [place] OFFICE | | | | | | [...] + + | 08/17/ | Office | [facility] | Ileana Henson | Paroxysmal atrial | | 2019 | Visit | CARDIOLOGY [place] | [address] | fibrillation (HCC) | | | | [address] | [place] [address] | (Primary Dx); | | | | [address] | [place] [address] | Chronic combined | | | | [place] | [phone] | systolic and | | | | [address] | | diastolic congestive | | | | [phone] | | heart failure | | | [...] nd visit delayed due to admission at [facility] for GI bleeding. Today I reviewed all [...] He is anticoagulated on Coumadin for his OIY1OL3 2 VASC score of 2 which is managed by lilli Castillo's Coumadin clinic. He was hospitalized in July 2017 at [facility] for acute GI bleeding, where a mass [...] surgery 08/16/2017 by , colorectal surgeon in [place], with low anterior resection with open approach, did not require any Chemo or radiation, He also followed up Dr. 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 They continue to monitor his right kidney for angiomyolipoma. His current and previous testing and procedures are detailed below. Since I saw him last, he had a colonoscopy done at [facility] 07/01/2019, and developed bleedin g afterwards with blood and clot in stool. He went to the emergency room at [facility] on July 12 and was transferred to [facility]. He had a repeat endoscopy performed 07/13/2019, [...] be angiomyolipom a,,followed by Dr. Cross in [place] Denies hematuria. Denies history of benign prostatic [...] drug use. Exercises sporadically . 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 Lives with his [...] for: TOTEPI CARDIAC PROCEDURES/IMAGING Last Cath: 02/06/2017 ([facility]) Separate ostia of the left anterior [...] inadequate TR jet. Pulmonic valve normal, trace MN. No perica rdial effusion. IVC 1.5-2.5 cm, [...] block. Bifascicular Block: Rate 5 8 bpm, MN 222 ms, QRS 156 ms, QTC 475 ms EK03/11: Sinus bradycardia with first-degree A-V block. Bi fascicular block. Rate 59 bpm, MN 238 ms, QRS 160 ms, QTC 481 ms, compared to EKG done in January first-degree A-V b lock has increased slightly,tracing personally reviewed by me EK08/01: Sinus rhythm with first-degree AV block. Left axis deviation and a right bundle branch block. Rate 65 bpm, MN 230 ms, QRS 162 ms, QTC 497 ms, when compared to EKG done in February 2017, MN interval has decreased slightly and QTC has increased ,tracing person ally reviewed by me EK10/30/2018: Sinus rhythm with first-degree AV block bifascicular block, old septal infa rct. Rate 66 bpm, MN 250 ms, QRS 156 ms, QTC 475 [...] 13, hematocrit 38.9, Platelets 292. Labs: 07/10/2019:( [facility]) INR: 1.29. CBC: WBC 10.26, RBC 2.55, [...] his echo, and delayed as admitted to [facility] on Jul 13 for bleeding post colonoscopy [...] contain inadvertent rec ognition errors. Ethan ARREOLA [facility] 08/18/2019 Sherrie kirby in this [...] [place] | | | | | | [address] | | | | | | | [...]
--- OUTSIDE RECORDS SUMMARY | ~2019-12-19 | XMS | Encounter Summary ---
Demographics + + + | Address | [address] | | | [place] [address] | + + + | Home Phone | | + + + | Preferred Language | Unknown | + + + | Marital Status | Single | + + + | Sikhism Affiliation | LDS | + + + | Race | White | + + + | Ethnic Group | Not or | + + + Author + + + | Author | [facility] | + + + | Organization | [facility] | + + + | Address | Unknown | + + + | Phone | Unavailable | + + + Support + + + + + | Name | Relationship | Address | Phone | + + + + + | Toby Latham | ANNA | [address] | | | | | [place] | | | | | [address] | | + + + + + Care Team Providers + +------+ + | Care Pulley Mortiser Operator Name | Role | Phone | + +------+ + | Sarah Carroll MD | PCP | | + +------+ + Reason for Visit + + + | Reason | Comments | + + + | Follow-up Plan | colonscopy f/u | + + + Encounter Details +--------+ + + + + | Date | Type | Department | Care Team | Description | +--------+ + + + + | 07/06/ | Telephone | [facility] | [place], | Follow-up Plan | | 2019 | | [facility] [address] | MD [address] | (colonscopy f/u) | | | | Nima Grijalva Mailcode: | Jeffery Ponce | | | | | [address] for | [place], [place] | | | | | [facility], | [address] | | | | | [facility] | [phone] | | | | | [place], [place] | | | | | | [address] | | | | | | [phone] | | | +--------+ + + + [...] Rd | | | | | | [place], [place] | | | | | | [address] | | | | | | [phone] | | | | | | | | +--------+---------+ + + + documented as of this encounter Visit Diagnoses Not on filedocumented in this encounter"
--- OUTSIDE RECORDS SUMMARY | ~2019-12-19 | XMS | Encounter Summary ---
Demographics + + + | Address | [address] [address] | | | [place] [address] | + + + | Home Phone | | + + + | Preferred Language | Unknown | + + + | Marital Status | Single | + + + | Sikh Affiliation | 1077 | + + + | Race | Unknown | + + + | Ethnic Group | Unknown | + + + Author + + + | Author | [facility] | | | and [place] | + + + | Organization | [facility] | | [...] Team Providers + +------+ + | Care Order Make Up Clerk Name | Role | Phone | + +------+ + | Sarah Carroll MD | PCP | | + +------+ + Encounter Details +--------+ + + + + | Date | Type | Department | Care Team | Description | +--------+ + + + + | 02/04/ | Orders Only | [facility] | Jewel Ulloa MD | | | 2019 | | NEPHROLOGY [place] | [address] [place] | | | | | [address] [place] | [address] [place], [place] | | | | | [address] [place], [place] | [address] | | | | | [address] | | | | | | [phone] | | | +--------+ + + + [...] [place] | | | | | | [address] | | | | | | | | +--------+---------+ + + + documented as of this encounter Procedures + +--------+ + + + | Procedure Name | Priori | Date/Time | Associated Diagnosis | Comments | | | ty | | | | + +--------+ + + + | EXTERNAL LAB: CBC | Routin | 02/04/2019 | | Results for this | | | e | 10:19 AM | | procedure are in the | | | | PDT | | results section. | + +--------+ + + + | PROTEIN/CREATININE | Routin | 02/04/2019 | | Results for this | | RATIO, URINE | e | 10:19 AM | | procedure are in the | | | | PDT | | results section. | + +--------+ + + + documented in this encounter Results Protein/Creatinine Ratio, Urine (02/04/2019 10:19 AM PDT) + + + + + + | Component | Value | Ref Range | Performed | Pathologist | | | | | At | Signature | + + + + + + | Protein/Cre | 212.3 (A) | 0 - 150 | EXTERNAL [...] + +---------+ + + External Lab: CBC (02/04/2019 10:19 AM PDT) + + + + + + | Component | Value | Ref Range | Performed | Pathologist | | | | | At | Signature | + + + + + + | WBC | 7.2 | 4.5 - 11.0 10 | EXTERNAL | | | | | | LAB | | + + + + + + | Red Blood | 3.86 (A) | 4.3 - 5.7 10 | EXTERNAL | | | Cells | | | LAB | | | Counted | | | | | + + + + + + | Hemoglobin | 12.9 (A) | 13.5 - 18.0 | EXTERNAL | | | | | g/dL | LAB | | + + + + + + | Hematocrit, | 38.8 (A) | 41 - 50 % | EXTERNAL | | | POC | | | LAB | | + + + + + + | MCV | 100.6 (A) | 81 - 99 fL | EXTERNAL | | | | | | LAB | | + + + + + + | MCH | 33 | 27 - 33 pg | EXTERNAL | | | | | | LAB | | + + + + + + | MCHC | 33 | 30 - 36 g/dL | EXTERNAL | | | | | | LAB | | + + + + + + | Platelet | 313 | 140 - 440 K/ L | EXTERNAL | | | Count | | | LAB | | | Plasma | | | | | + + + + + + | RDW-CV | 15.0 | 10.5 - 15.0 % | EXTERNAL [...] + + + | % Segmented | 66.8 | 39 - 80 % | EXTERNAL | | | | | | LAB | | | Neutrophils | | | | | + + + + + + | % | 21.7 (A) | 24 - 44 % | EXTERNAL | | | Lymphocytes | | | LAB | | + + + + + + | % Monocytes | 6.0 | 0 - 12 % | EXTERNAL | | | | | | LAB | | + + + + + + | % | 4.7 | 0 - 6 % | EXTERNAL | | | Eosinophils | | | LAB | | + + + + + + | % Basophils | 0.8 | 0 - 2 % | EXTERNAL [...]
--- OUTSIDE RECORDS SUMMARY | ~2019-12-19 | XMS | Encounter Summary ---
Demographics + + + | Address | [address] [address] | | | [place] [address] | + + + | Home Phone | | + + + | Preferred Language | Unknown | + + + | Marital Status | Single | + + + | Buddhist Affiliation | 1077 | + + + | Race | Unknown | + + + | Ethnic Group | Unknown | + + + Author + + + | Author | [facility] | | | and [place] | + + + | Organization | [facility] | [...] Team Providers + +------+ + | Care Manager Of Operations Name | Role | Phone | + [...] PHYSIATRY [address] | MD [address] | | | | | [address] | [place], [place] | | | | | [place], [place] | [address] | | | | | [address] | | | | | | [phone] | | | +--------+ + + + [...] | | | | | [place] [facility] | | | | | | [address] | | | | | | | | +--------+---------+ + + + documented as of this encounter Visit Diagnoses Not on filedocumented in this encounter"
--- OUTSIDE RECORDS SUMMARY | ~2019-12-19 | XMS | Encounter Summary ---
Demographics + + + | Address | [address] | | | [place] [address] | + + + | Home Phone | | + + + | Preferred Language | Unknown | + + + | Marital Status | Single | + + + | Bahai Affiliation | LDS | + + + [...] [place] | | | | | [address] | | + + + + + Care Team Providers + +------+ + | Care Die Maker Name | Role | Phone | + +------+ + | Sarah Carroll MD | PCP | | + +------+ + Encounter Details +--------+--------+ + + + | Date | Type | Department | Care Team | Description | +--------+--------+ + + + | 05/27/ | Travel | | | | | [...] Rd | | | | | | [place], [place] | | | | | | [address] | | | | | | [phone] | | | | | | | | +--------+---------+ + + + documented as of this encounter Visit Diagnoses Not on filedocumented in this encounter"
--- OUTSIDE RECORDS SUMMARY | ~2019-12-19 | XMS | Encounter Summary ---
Demographics + + + | Address | [address] [address] | | | [place] [address] | + + + | Home Phone | | + + + | Preferred Language | Unknown | + + + | Marital Status | Single | + + + | Sabianist Affiliation | 1077 | + + + [...] Team Providers + +------+ + | Care Sales Record Clerk Name | Role | Phone | [...] | MED CTR EXTERNAL | MD [address] | | | | | IMAGING [address] | Terry SMITH | | | | | [address] | [place] [address] | | | | | [place] [address] | | | | | | [phone] | | | +--------+ + + + [...] 2019 | Visit | | [address] | | | | | | [place] | | | | | | [address] | | | | | | | [...]
--- OUTSIDE RECORDS SUMMARY | ~2019-12-19 | XMS | Encounter Summary ---
Demographics + + + | Address | [address] | | | [place] [address] | + + + | Home Phone | | + + + | Preferred Language | Unknown | + + + | Marital Status | Single | + + + | Hoahaoism Affiliation | LDS | + + + [...] [place] | | | | | [address] | | + + + + + Care Team Providers + +------+ + | Care Computer Installer Name | Role | Phone | + +------+ + | No Pcp Per Patient | PCP | Unavailable | + +------+ + Encounter Details +--------+--------+ + + + | Date | Type | Department | Care Team | Description | +--------+--------+ + + + | 02/05/ | Travel | | | | | [...] | | 2019 | Visit | | [address] | | | | | | [address] | | | | | | [place], [place] | | | | | | [address] | | | | | | [phone] | | | | | | | | +--------+---------+ + + + documented as of this encounter Visit Diagnoses Not on filedocumented in this encounter"
--- OUTSIDE RECORDS SUMMARY | ~2019-12-19 | XMS | Encounter Summary ---
Demographics + + + | Address | [address] | | | [place] [address] | + + + | Home Phone | | + + + | Preferred Language | Unknown | + + + | Marital Status | Single | + + + | Jain Affiliation | LDS | + + + | Race | White | + + + | Ethnic Group | Not or | + + + Author + + + | Author | [facility] | + + + | Organization | [facility] | + + + | Address | Unknown | + + + | Phone | Unavailable | + + + Support + + + + + | Name | Relationship | Address | Phone | + + + + + | Toby Latham | ANNA | [address] | | | | | [place] | | | | | [address] | | + + + + + Care Team Providers + +------+ + | Care Toe Former Stitchdowns Name | Role | Phone | + +------+ + | Sarah Carroll MD | PCP | | + +------+ + Encounter Details +--------+ + + + + | Date | Type | Department | Care Team | Description | +--------+ + + + + | 02/09/ | Documentati | Endoscopic | Lab, Gi Procedure | | | 2019 | on | Procedural Unit at | | | | | | [address] | | | | | | [address] | | | | | | [address], | | | | | | 4th floor [facility] | | | | | | [place] [address] | | | | | | [phone] | | | +--------+ + + + [...] Rd | | | | | | [place], [place] | | | | | | [address] | | | | | | [phone] | | | | | | | | +--------+---------+ + + + documented as of this encounter Visit Diagnoses Not on filedocumented in this encounter"
--- OUTSIDE RECORDS SUMMARY | ~2019-12-19 | XMS | Encounter Summary ---
Demographics + + + | Address | [address] | | | [place] [address] | + + + | Home Phone [...] [place] | | | | | [address] | | + + + + + Care Team Providers + +------+ + | Care Hydrotreater Operator Name | Role | Phone | [...] Rd | | | | | | [place], [place] | | | | | | [address] | | | | | | [phone] | | | | | | | | +--------+---------+ + + + documented as of this encounter Visit Diagnoses Not on filedocumented in this encounter"
--- OUTSIDE RECORDS SUMMARY | ~2019-12-19 | XMS | Encounter Summary ---
Demographics + + + | Address | [address] [address] | | | [place] [address] | + + + | Home Phone | | + + + | Preferred Language | Unknown | + + + | Marital Status | Single | + + + | Episcopal Affiliation | 1077 | + + + [...] Team Providers + +------+ + | Care Vamp Presser Name | Role | Phone | [...] | | CONVERSION [address] | MD [address] | | | | | [address] | [facility] [address] | | | | | [place], [place] | [place] [address] | | | | | [address] | [phone] | | | | | [phone] | | | +--------+ + + + [...] [place] | | | | | | [address] | | | | | | | [...] | | | hypokinesis, diastolic function abnormal, [place] visually estimates | | | LVEF 40-45%. [...] | | | hypokinesis, diastolic function abnormal, [place] visually estimates | | | LVEF 40-45%. [...] pressures of 5-10mmHg. MEASUREMENTS | | | Training And Development Manager: DBS Authenticated by: Chris Link DO Report | | | Date/Time: 02-16-2016 20:56:07 | | + + + + + | Procedure Note | + + | Jake Long Conversion - 04/02/2019 10:31 PM PDT Patient Name: Paras Latham of | | : 1960 Performing Physician: Chris Link | | DO INDICATIONS C | | HF, SOB CONCLUSIONS 1. See Dictation. A fib. 2. Moderate concentric LVH, mild | | global hypokinesis, diastolic function abnormal, [place] visually estimates LVEF 40-45%. | | Moderate [...] venous pressures of 5-10mmHg. | | MEASUREMENTS Training And Development Manager: DBSAuthenticated by: Chris Reyes | | Date/Time: 02-16-2016 20:56:07 IMPRESSION: 1. See Dictation. A fib. 2. Moderate | | concentric LVH, mild global hypokinesis, diastolic function abnormal, [place] visually | | estimates LVEF 40-45%. Moderate [...] | |MEASUREMENTS | | | | | |Training And Development Manager: DBS | |Authenticated by: Chris Link DO | |Report Date/Time: 02-16-2016 20:56:07 | | | |IMPRESSION: | |1. See Dictation. A fib. 2. Moderate concentric LVH, mild global hypokinesis, diastolic fu nction abnormal, [place] visually estimates LVEF 40-45%. Moderate LAE, moderate [...]
--- OUTSIDE RECORDS SUMMARY | ~2019-12-19 | XMS | Encounter Summary ---
Demographics + + + | Address | [address] [address] | | | [place] [address] | + + + | Home Phone | | + + + | Preferred Language | Unknown | + + + | Marital Status | Single | + + + | Congregation Affiliation | 1077 | + + + [...] + +------+ + | Care Manager Of Application Development Name | Role | Phone | + +------+ + | Sarah Carroll MD | PCP | | + +------+ + Encounter Details +--------+ + + + + | Date | Type | Department | Care Team | Description | +--------+ + + + + | 01/19/ | Orders Only | [facility] | Jewel Ulloa MD | | | 2019 | | NEPHROLOGY [place] | [address] [place] | | | | | [address] [place] | [address] [place], [place] | | | | | [address] [place], [place] | [address] | | | | | [address] | | | | | | [phone] | | | +--------+ + + + [...] [place] | | | | | | [address] | | | | | | | | +--------+---------+ + + + documented as of this encounter Procedures + +--------+ + + + | Procedure Name | Priori | Date/Time | Associated Diagnosis | Comments | | | ty | | | | + +--------+ + + + | EXTERNAL LAB: [facility] | Routin | 01/19/2019 | | Results for this | | | e | 2:34 PM | | procedure are in the | | | | PDT | | results section. | + +--------+ + + + | RENAL FUNCTION PANEL | Routin | 01/19/2019 | | Results for this | | | e | 2:34 PM | | procedure are in the | | | | PDT | | results section. | + +--------+ + + + documented in this encounter Results External Lab: CBC (01/19/2019 2:34 PM PDT) + + + + + + | Component | Value | Ref Range | Performed | Pathologist | | | | | At | Signature | + + + + + + | WBC | 9.6 | 4.5 - 11.0 10 | EXTERNAL | | | | | | LAB | | + + + + + + | Red Blood | 3.63 (A) | 4.3 - 5.7 10 | EXTERNAL | | | Cells | | | LAB | | | Counted | | | | | + + + + + + | Hemoglobin | 12.2 (A) | 13.5 - 18.0 | EXTERNAL | | | | | g/dL | LAB | | + + + + + + | Hematocrit, | 36.1 (A) | 41 - 50 % | EXTERNAL | | | POC | | | LAB | | + + + + + + | MCV | 99.5 (A) | 81 - 99 fL | [...] + + + + | Platelet | 315 | 140 - 440 K/ L | EXTERNAL | | | Count | | | LAB | | | Plasma | | | | | + + + + + + | RDW-CV | 14.4 | 10.5 - 15.0 % | EXTERNAL [...] + + + | % Segmented | 77.1 | 39 - 80 % | EXTERNAL | | | | | | LAB | | | Neutrophils | | | | | + + + + + + | % | 14.5 (A) | 24 - 44 % | EXTERNAL | | | Lymphocytes | | | LAB | | + + + + + + | % Monocytes | 4.4 | 0 - 12 % | EXTERNAL | | | | | | LAB | | + + + + + + | % | 3.5 | 0 - 6 % | EXTERNAL | | | Eosinophils | | | LAB | | + + + + + + | % Basophils | 0.5 | 0 - 2 % | EXTERNAL [...] + +---------+ + + Renal Function Panel (01/19/2019 2:34 PM PDT) + + + + + + | Component | Value | Ref Range | Performed | Pathologist | | | | | At | Signature | + + + + + + | Glucose, | 95 | 70 - 100 mg/dL | EXTERNAL | | | Fasting | | | LAB | | + + + + + + | BUN | 35 (A) | 6 - 23 mg/dL | EXTERNAL | | | | | | LAB | | + + + + + + | Creatinine | 2.13 (A) | 0.70 - 1.33 | EXTERNAL | | | | | mg/dL | LAB | | + + + + + + | PHOSPHORUS | 2.9 | 2.5 - 5.0 mg/dL | EXTERNAL | | | | | | LAB | | + + + + + + | Albumin | 3.8 | 3.5 - 5.0 | EXTERNAL | | | | | | LAB | | + + + + + + | Na | 136 | 132 - 143 | EXTERNAL | | | | | mmol/L | LAB | | + + + + + + | K | 4.8 | 3.6 - 5.1 | EXTERNAL | | | | | mmol/L | LAB | | + + + + + + | Cl | 102 | 95 - 112 mmol/L | EXTERNAL | | | | | | LAB | | + + + + + + | CO2 | 25 | 19 - 31 mmol/L | EXTERNAL | | | | | | LAB | | + + + + + + | Anion Gap | 13.8 | 7 - 21 mmol/L | EXTERNAL | | | | | | LAB | | + + + + + + | eGFR if not | | | EXTERNAL | | | | | | LAB | | | ITALIAN | | | | | + + + + + + | Phosphorus, | | | EXTERNAL | | | Inorganic | | | LAB | | + + + + + + | BUN/Creatin | 16.4 | 6.0 - 28.6 | EXTERNAL | | | ine Ratio | | | LAB | | + + + + + + | Calcium | 9.2 | 8.5 - 10.3 | EXTERNAL | | | | | mg/dL | LAB | | + + + + + + | Estimated | 32 (A) | 60 - 140 mg/dL | [...]
--- OUTSIDE RECORDS SUMMARY | ~2019-12-19 | XMS | Encounter Summary ---
Demographics + + + | Address | [address] | | | [place] [address] | + + + | Home Phone [...] [place] | | | | | [address] | | + + + + + Care Team Providers + +------+ + | Care Manager Mail Name | Role | Phone | + [...] Rd | | | | | | [place], [place] | | | | | | [address] | | | | | | [phone] | | | | | | | | +--------+---------+ + + + documented as of this encounter Visit Diagnoses Not on filedocumented in this encounter"
--- OUTSIDE RECORDS SUMMARY | ~2019-12-19 | XMS | Encounter Summary ---
Demographics + + + | Address | [address] [address] | | | [place] [address] | + + + | Home Phone | | + + + | Preferred Language | Unknown | + + + | Marital Status | Single | + + + | Anglican Affiliation | 1077 | + + + [...] Team Providers + +------+ + | Care Voting Machine Repairer Name | Role | Phone | + [...] | Specialty | Physical | Diagnoses | [facility] | [facility] | | | Services | Therapy | Spinal | [facility] | HOSPITAL | | | Required | | stenosis of | [place] | PHYSICAL | | | | | lumbar | [address] | [address]AP[address] | | | | | region | [address] | [place] | | | | | without | [place] | [place], [place] | | | | | neurogenic | [place], [place] | [address] | | | | | claudication | [address] | Phone: | | | | | Lumbar | Phone: | [phone] | | | | | herniated | [phone] | Fax: | | | | | disc Lumbar | Fax: | [phone] | | | | | | [phone] | | | | | | radiculopath | | | | | | | y, chronic | | | +--------+ + + + + + Reason for Visit + + + | Reason | Comments | + + + | Back Pain | | + + + Evaluate & Treat (Routine) + + + + + + + | Status | Reason | Specialty | Diagnoses / | Referred By | Referred To | | | | | Procedures | Contact | Contact | + + + + + + + | Authorized | Specialty | Neurosurgery | Diagnoses | Malhotra, | [facility] | | | Services | | Spinal | Riccardo Mcgill MD | Neurosurgery | | | Required | | stenosis of | [address] | | | | | lumbar | [address] | [address] | | | | | region with | [place], | [place], | | | | | neurogenic | [place] [address] | [place] [address] | | | | | claudication | Phone: | Phone: | | | | | Lumbar | [phone] | [phone] | | | | | radiculopath | Fax: | Fax: | | | | | y Bilateral | [phone] | [phone] | | | | | foot-drop | | | + + + + + + + Encounter Details +--------+---------+ + + + | Date | Type | Department | Care Team | Description | +--------+---------+ + + + | 10/12/ | Office | [facility] | Cordell Pedraza | Spinal stenosis of | | 2019 | Visit | NEUROSURGERY [address] | [address] [place] [address] | lumbar region | | | | [address] | [address] | without neurogenic | | | | [place], [place] | [place] | claudication | | | | [address] | [address] | (Primary Dx); Lumbar | | | | [phone] | | herniated disc; | | | | | | Lumbar | | | | | | radiculopathy, | | | | | | chronic; Neuropathy | +--------+---------+ + + + Social History + +-------+ +--------+ + | Tobacco Use | Types | Packs/Day | Years | Date | | | | | Used | | + +-------+ +--------+ + | Former Smoker | | | | Quit: 2014 | + +-------+ +--------+ + + +------+---+--------+ [...] + + + | Blood Pressure | 124/72 | 10/13/2019 1:02 PM | | | | | PST | | + + + + + | Pulse | 81 | 10/13/2019 1:02 PM | | | | | PST | | + + + + + | Temperature | 36.9 C (98.4 F) | 10/13/2019 1:02 PM | | | | | PST | | + + + + + | Respiratory Rate | 20 | 10/13/2019 1:02 PM | | | | | PST | | + + + + + | Oxygen Saturation | 94% | 10/13/2019 1:02 PM | | | | | PST | | + + + + + | Inhaled Oxygen | - | - | | | Concentration | | | | + + + + + | Weight | 168.4 kg (371 lb 4.1 | 10/13/2019 1:02 PM | | | | oz) | PST | | + + + + + | Height | 180.3 cm (5' 11") | 10/13/2019 1:02 PM | | | | | PST | | + + + + + | Body Mass Index | 51.78 | 10/13/2019 1:02 PM | | | | | PST [...] of this encounter Patient Instructions Patient Instructions Cordell Pedraza MD - 10/13/2019 12:45 PM PST1. Proceed with aqua tic therapy evaluation with long-term independent aquatic exercise program. 2. Proceed with follow-up appointment at [facility] spine clinic. Please have records to our cl inic sent following the appointment. 3. Follow-up appointment in approximately 6 months documented in this encounter Progress Notes Cordell Pedraza MD - 10/13/2019 12:45 PM PST Cordell Pedraza MD [address] [facility] [place] [address] [place] [address] FAX: [phone] NEUROSURGERY HISTORY AND PHYSICAL EXAMINATION CHIEF COMPLAINT: Chief Complaint Patient presents with Back Pain HISTORY OF PRESENT ILLNESS: Mr. Latham is a 59-year-old gentleman who presents with a main complaint of chronic low ba ck pain and foot drop. He also has some chronic neck pain as well as numbness in the distal upper and lower extremities. He states that in 2016 he was hospitalized for 3 weeks with c ongestive heart failure. At that time during rehabilitation he noted that he was developing a right foot drop. He subsequently also developed weakness in the left distal lower extrem ity. At about the same time, in 2015, he noted onset of weakness in the right hand along wi th numbness in both hands. He states that the numbness in the distal upper and lower extrem ities as well as a right hand weakness and bilateral foot drop have all been relatively stab le over the past 2 to 3 years. He has no complaint of significant bowel or bladder dysfunct ion. No saddle anesthesia. He feels somewhat unsteady when he walks. Mr. Latham underwen t an EMG per Dr. Malhotra in 2016 which revealed which revealed probable peripheral polyneuropa thy. He was seen for evaluation at the spine clinic at [facility] in May 2019 and has not yet had a follow-up. He had a subsequent lower extremity EMG/NCV performed by Dr. Malhotra in Jan which per report revealed axonal loss peripheral neuropathy involving both sensory an d motor axons. 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 Atrial fibrillation (HCC) SEES Ileana ARREOLA Bilateral leg edema CHF (congestive heart failure) (HCC) Chronic combined systolic and diastolic congestive heart failure (HCC) Chronic kidney disease (CKD) Chronic kidney disease, stage 3 (HCC) Chronic kidney disease, stage 4 (severe) (HCC) Class 3 obesity with alveolar hypoventilation [...] Paroxysmal atrial fibrillation (HCC) Persistent atrial fibrillation Persistent proteinuria Prediabetes Renal mass Renal mass, left 05/2018 Renal neoplasm Resistant hypertension Situational depression Sleep apnea C-PAP Subclinical hypothyroidism Umbilical hernia repaired Unspecified disorder of refraction Vitamin B12 deficiency Vitamin D deficiency Wound of skin PAST SURGICAL HISTORY: Past Surgical History: Procedure Laterality Date ANGIOGRAM 01/2017 HEART CATH CARPAL TUNNEL RELEASE Right 02/27/2018 and ulna surgery rt elbow COLECTOMY N/A 08/16/2017 Procedure: RESECTION BOWEL LOW ANTERIOR, FLEXIBLE SIGMOIDOSCOPY; Surgeon: Mehul Bowles MD; Location: [facility] MAIN OR COLONOSCOPY 05/22/2017 COLONOSCOPY 07/01/2019 Dr Gilbert, [facility]: Large 3 cm flat ascending colon polyp. Repeat colonoscopy in 6 months . Biopsy results awaited. CRS if invasive cancer. COLONOSCOPY 12/11/2018 Tubular adenoma with focal high grade dysplasia of splenic flexure, Villous adenoma cecum, mid ascending colon hyperplastic polyp and Hyperplastic rectal polyp. Widely patent colopro ctectomy. COLONOSCOPY 07/13/2019 Dr Ludwig; Prior end-to-side colocolonic anastomosis and sigmoid colon patent. No blood seen in colon, 20 mm little ulcer bed in proximal ascending colon with no bleeding. FINGER AMPUTATION Right 1974 5th finger TONSILLECTOMY 1969 TOTAL NEPHRECTOMY Left 06/11/2018 Procedure: LEFT LAPAROSCOPIC NEPHRECTOMY WITH NODE DISSECTION AND LAPAROSCOPIC LYSIS OF AD HESIONS; Surgeon: Patrice Cross MD; Location: [facility] MAIN OR Unlisted Procedure Arthroscopy CURRENT MEDICATIONS: Current Outpatient Medications Medication Sig Dispense Refill acetaminophen (TYLENOL) 500 mg tablet Take 650 mg by mouth every 6 hours as needed for Pain. allopurinol (ZYLOPRIM) [...] for this visit. ALLERGIES: No Known Allergies SOCIAL HISTORY: The patient reports that he quit smoking about 5 years ago. He quit smokeless tobacco use about 4 years ago. His smokeless tobacco use included chew. He reports that he does not dri nk alcohol or use drugs. FAMILY HISTORY: Family History Problem Relation Age of Onset Hypertension Mother Gout Mother Diabetes, NIDDM Mother Lung cancer Father No known problems Sister No known problems Brother No known problems Brother No known problems Maternal Grandmother No known problems Maternal Grandfather No known problems Paternal Grandmother No known problems Paternal Grandfather Review of Systems Constitutional: Negative. HENT: Negative. Eyes: Negative. Respiratory: Positive for shortness of breath. Cardiovascular: Positive for leg swelling. Gastrointestinal: Positive for constipation and heartburn. Genitourinary: Negative. Musculoskeletal: Positive for back pain and joint pain. Skin: Negative. Neurological: Positive for dizziness, tremors and weakness. Endo/Heme/Allergies: Positive for environmental allergies. Bruises/bleeds easily. Psychiatric/Behavioral: Positive for depression and memory loss. The patient is nervous/anx ious and has insomnia. PHYSICAL EXAMINATION: Blood pressure 124/72, pulse 81, temperature 36.9 C (98.4 F), temperature source Oral, resp. rate 20, height 1.803 m (5' 11"), weight (!) 168.4 kg (371 lb 4.1 oz), SpO2 94 %. Body mass index is 51.78 kg/m. GENERAL: Patient is a pleasant morbidly obese gentleman in no apparent distress during exa mination HEENT: Head: Normocephalic/atraumatic with no areas of recent trauma. NECK (ANTERIOR): Supple and without palpable masses. CHEST: Mildly labored respirations HEART: irregular pulse ABDOMEN: Soft, non-tender, non-distended, and without palpable masses. SPINE: No tenderness over the cervical thoracic or lumbar midline or paraspinous musculatu re. EXTREMITIES: No cyanosis, moderate bilateral distal lower extremity edema. Distal pulses a re palpable. MUSCULOSKELETAL: No significant right or left lateral hip pain or pain with bilateral hip range of motion. Straight leg raising negative at 90 degrees bilaterally. There is an ampu tation of the right fifth digit NEUROLOGICAL EXAM: MENTAL STATUS: The patient is awake, alert, and oriented. He follows simple and complex commands. His speech is fluent, he comprehends speech well, and he repeats well. He has no apparent deficits with short or terminal carman memory. CRANIAL NERVES: II: Acuity is intact. Duarte are full to confrontation. III, IV, : The pupils are reactive. Extraocular movements are intact. No ptosis is note d. V: Facial sensation is intact and symmetric. MOTOR EXAM: (5 IS NORMAL) * Indicates pain limited MUSCLE/ MOVEMENT: RIGHT LEFT Deltoids 5 5 Biceps 5 5 Triceps 5 5 Wrist Flexion 5 5 Wrist Extension 5 5 Median Intrinsics 3 5 Ulnar Intrinsics 2-3 5 Machine Assembler For Puller Over Strength 5 5 Hip Flexion 4 4 Hip Extension 4 4 Knee Flexion 5 5 Knee Extension 5 5 Dorsiflexion 1 3 Extensor Hallicus Longus 1 3 Plantarflexion 3 4 Foot Inversion 2 3 Foot Eversion 1 2 SENSORY EXAM: Sensory examination reveals moderate diminished sensation to light touch dif fusely in the distal left hand second through fifth digits as well as at least moderate diff use decreased sensation in the distal right and left lower extremity below the lower calf le fabian. REFLEXES: (2 OR 2+ IS NORMAL) REFLEX: RIGHT LEFT BICEPS 2+ 2+ BRACHIORADIALIS 2+ 2+ TRICEPS 2+ 2+ PATELLAR absent absent ACHILLES absent absent RIVERA'S ABSENT ABSENT CLONUS ABSENT ABSENT BABINSKI DOWNGOING DOWNGOING GAIT: Gait is slow but steady PERIPHERAL NERVE/MISC: Tinel is negative at the wrists and elbows bilaterally. Phalen is negative. Straight leg raise is negative bilaterally. Giovanny's test of the hips is negative bilaterally. TEST AND RADIOGRAPHIC REVIEW: 03/03/2019 lumbar spine MRI reveals normal overall lumbar lordotic curvature. There is mild to moderate decrease signal intensity at all lumbar disc levels with relatively good preser vation of intervertebral disc space height. A moderate central to right probable subannular disc herniation is present at the L4-5 level which combined with severe hypertrophy of the ligamentum flavum creates severe canal stenosis with AP thecal sac dimension approximately 4 mm. There is lesser disc displacement and canal stenosis at the L3-4 level. Assessment: 1. Severe L4-5 and moderate L3-4 canal and lateral recess stenosis 2. Chronic appearing L4-5 herniated nucleus pulposus 3. Bilateral chronic distal lower extremity motor deficit with bilateral foot drop. Per t he patient history this is not significantly changed over the past 2-3 years. 4. Peripheral neuropathy 5. Chronic low back pain VISIT DIAGNOSES AND ORDERS: 1. Spinal stenosis of lumbar region without neurogenic claudication 2. Lumbar herniated disc 3. Lumbar radiculopathy, chronic 4. Neuropathy PLAN: Findings were discussed at length with the patient. I spent over 45 minutes with him in [facility] office today greater than 50% which involved extensively discussing his findings, reviewin g imaging studies, and discussing treatment options prognosis reviewing exercise options and activity precautions and answering numerous questions. Conservative treatment options including continuing present physical therapy program, addin g additional aquatic therapy, use of medications have been fully discussed. Option of interventional pain management has been explained. Option of surgical intervention for L4-5 decompressive semi-laminectomy, possible discectom y is also been discussed. Advised him that due to the severity and chronic nature of his distal lower extremity motor deficit, the presence of underlying neuropathy, and significant EMG findings indicating love ropathy, that there would likely be only a relatively low chance of improvement in his dista l lower extremity deficit with surgical intervention. He is also at significant increased r isk for surgical intervention with history of atrial fibrillation on Coumadin, CHF, morbid o besity. Mr. Latham appears to understand all of the above. He wishes to continue conservative man agement. He is interested in pursuing aquatic therapy which he will arrange closer to his h ome in [place]. Activity precautions, exercises and signs and symptoms to watch for have been fully discussed. He will notify our office if any significant changes occur. He has not yet had his follow-up appointment at [facility] spine clinic and is going to try to sc hedule this in the near future. I would like to see him back in approximately 6 months for follow-up or earlier if any significant changes occur. ELECTRONICALLY SIGNED BY: Cordell Pedraza MD, 10/13/2019 2:21 PM documented in this encounter Plan of Treatment +--------+---------+ + + + | Date | Type | Specialty | Care Team | Description | +--------+---------+ + + + | 03/17/ | Office | Cardiology | Lorraine Clifton DO | | 2019 | Visit | | [address] | | | | | | [place] | | | | | | [address] | | | | | | | | +--------+---------+ + + + + + +--------+ + + | Name | Type | Priori | Associated Diagnoses | Order Schedule | | | | ty | | | + + +--------+ + + | Ambulatory referral | Outpatient | Routin | Spinal stenosis of | Ordered: 10/13/2019 | | to Physical Therapy | Referral | e | lumbar region | | | | | | without neurogenic | | | | | | claudication Lumbar | | | | | | herniated disc | | | | | | Lumbar | | | | | | radiculopathy, | | | | | | chronic | | + + +--------+ + + documented as of this encounter Visit Diagnoses + + | Diagnosis | + + | Spinal stenosis of lumbar region without neurogenic claudication - Primary Spinal | | stenosis, lumbar region, without neurogenic claudication | + + | Lumbar herniated disc Displacement of lumbar intervertebral disc without myelopathy | + + | Lumbar radiculopathy, chronic Thoracic or lumbosacral neuritis or radiculitis, | | unspecified | + + | Neuropathy Mononeuritis of unspecified site | + + documented in this encounter
--- OUTSIDE RECORDS SUMMARY | ~2019-12-19 | XMS | Encounter Summary ---
Demographics + + + | Address | [address] [address] | | | [place] [address] | + + + | Home Phone | | + + + | Preferred Language | Unknown | + + + | Marital Status | Single | + + + | Gnosticism Affiliation | 1077 | + + + | Race | Unknown | + + + | Ethnic Group | Unknown | + + + Author + + + | Author | [facility] | | | and [place] | + + + | Organization | [facility] | | [...] Team Providers + +------+ + | Care Scrap Hooker Name | Role | Phone | + [...] | [facility] | MD [address] | | | | | IMAGING [address] | [address] | | | | | [address] | [place] [address] | | | | | [place] [address] | | | | | | [phone] | | | +--------+ + + + [...] [place] | | | | | | [address] | | | | | | | | +--------+---------+ + + + documented as of this encounter Procedures + +--------+ + + + | Procedure Name | Priori | Date/Time | Associated Diagnosis | Comments | | | ty | | | | + +--------+ + + + | MRI LUMBAR SPINE WO | Routin | 03/03/2019 | | Results for this | | CONTRAST | e | 12:05 AM | | procedure are in the | | | | PDT | | results section. | + +--------+ + + + documented in this encounter Results MRI Lumbar Spine wo Contrast (03/03/2019 12:05 AM PDT) + + | Specimen | [...]
--- OUTSIDE RECORDS SUMMARY | ~2019-12-19 | XMS | Encounter Summary ---
Demographics + + + | Address | [address] | | | [place] [address] | + + + | Home Phone | | + + + | Preferred Language | Unknown | + + + | Marital Status | Single | + + + | Taoism Affiliation | LDS | + + + | Race | White | + + + | Ethnic Group | Not or | + + + Author + + + | Author | [facility] | + + + | Organization | [facility] | + + + | Address | Unknown | + + + | Phone | Unavailable | + + + Support + + + + + | Name | Relationship | Address | Phone | + + + + + | Toby Latham | ANNA | [address] | | | | | [place] | | | | | [address] | | + + + + + Care Team Providers + +------+ + | Care Crusher Wet Ground Mica Name | Role | Phone | + +------+ + | Sarah Carroll MD | PCP | | + +------+ + Encounter Details +--------+ + + + + | Date | Type | Department | Care Team | Description | +--------+ + + + + | 02/09/ | Transcribe | [facility] | Transcribe | | | 2019 | Orders | [facility] [address] | Encounter, Provider, | | | | | Nima Grijalva Mailcode: | [address] | | | | | [facility] | [place] [address] | | | | | [facility], | | | | | | [address] | | | | | | [place], [place] | | | | | | [address] | | | | | | [phone] | | | +--------+ + + + [...] | | 2019 | Visit | | [address] | | | | | | [address] | | | | | | [place], [place] | | | | | | [address] | | | | | | [phone] | | | | | | | [...] + | MRN: | [id number] | | [id number] Date: 04/14/2019Patient Name: Aaron Justin #: | ENDOSCOPY | | [id number] of : 1960SN: [id number] Type: | | | AmbulatoryRoom: Endo 5Procedure: [...] RN (Nurse), NGHIA YBARRA | | | (Trimming Department Blocker), PADMAJA ROSS | | | (Trimming Department Blocker)Referring MD: JACK TINOCO JR, | | | [...] the procedure. The Olympus | | | [id number] Colonoscope #[id number] was introduced | | | through the [...] questions, please contact the | | | channeler outsole. - Stop | | | anticoagulation (coumadin) [...]
--- OUTSIDE RECORDS SUMMARY | ~2019-12-19 | XMS | Encounter Summary ---
Demographics + + + | Address | [address] [address] | | | [place] [address] | + + + | Home Phone | | + + + | Preferred Language | Unknown | + + + | Marital Status | Single | + + + | Jain Affiliation | 1077 | + + + [...] Team Providers + +------+ + | Care Medical Record Transcriber Name | Role | Phone | + +------+ + | Sarah Carroll MD | PCP | | + +------+ + Encounter Details +--------+ + + + + | Date | Type | Department | Care Team | Description | +--------+ + + + + | 04/30/ | Orders Only | [facility] | Patrice Cross MD | Renal mass (Primary | | 2018 | | [address] | [address] | Dx) | | | | [address] [place] | [address] [place] | | | | | [address] | [address] | | | | | [phone] | | | +--------+ + + + [...] [place] | | | | | | [address] | | | | | | | [...]
--- OUTSIDE RECORDS SUMMARY | ~2019-12-19 | XMS | Encounter Summary ---
Demographics + + + | Address | [address] [address] | | | [place] [address] | + + + | Home Phone | | + + + | Preferred Language | Unknown | + + + | Marital Status | Single | + + + | Confucianism Affiliation | 1077 | + + + | Race | Unknown | + + + | Ethnic Group | Unknown | + + + Author + + + | Author | [facility] | | | and [place] | + + + | Organization | [facility] | | [...] Team Providers + +------+ + | Care Process Plant Operator Name | Role | Phone | [...] + + | 02/06/ | Telephone | [facility] | Patrice Cross MD | Other | | 2018 | | [address] | [address] | | | | | [address] [place], [place] | [address] [place], [place] | | | | | [address] | [address] | | | | | [phone] | | | +--------+ + + + [...] [place] | | | | | | [address] | | | | | | | | +--------+---------+ + + + documented as of this encounter Visit Diagnoses Not on filedocumented in this encounter"
--- OUTSIDE RECORDS SUMMARY | ~2019-12-19 | XMS | Encounter Summary ---
Demographics + + + | Address | [address] [address] | | | [place] [address] | + + + | Home Phone | | + + + | Preferred Language | Unknown | + + + | Marital Status | Single | + + + | Hindu Affiliation | 1077 | + + + [...] Team Providers + +------+ + | Care Label Maker Name | Role | Phone | + +------+ + | Sarah Carroll MD | PCP | | + +------+ + Encounter Details +--------+ + + + + | Date | Type | Department | Care Team | Description | +--------+ + + + + | 01/30/ | Telephone | [facility] [facility] | Patrice Cross MD | | | 2018 | | [address] | [address] | | | | | [address] | [address] | | | | | [place], [place] | [address] | | | | | [address] | | | | | | [phone] | | | +--------+ + + + [...] | | | | | [address] | | | | | | [address] | | | | | | | | +--------+---------+ + + + documented as of this encounter Visit Diagnoses Not on filedocumented in this encounter"
--- OUTSIDE RECORDS SUMMARY | ~2019-12-19 | XMS | Encounter Summary ---
Demographics + + + | Address | [address] | | | [place] [address] | + + + | Home Phone | | + + + | Preferred Language | Unknown | + + + | Marital Status | Single | + + + | Presybeterian Affiliation | LDS | + + + [...] [place] | | | | | [address] | | + + + + + Care Team Providers + +------+ + | Care Radiology Assistant Name | Role | Phone | + +------+ + | Sarah Carroll MD | PCP | | + +------+ + Encounter Details +--------+--------+ + + + | Date | Type | Department | Care Team | Description | +--------+--------+ + + + | 03/30/ | Travel | | | | | [...] [address] | | | | | | [place], [place] | | | | | | [address] | | | | | | [phone] | | | | | | | | +--------+---------+ + + + documented as of this encounter Visit Diagnoses Not on filedocumented in this encounter"
--- OUTSIDE RECORDS SUMMARY | ~2019-12-19 | XMS | Encounter Summary ---
Demographics + + + | Address | [address] [address] | | | [place] [address] | + + + | Home Phone | | + + + | Preferred Language | Unknown | + + + | Marital Status | Single | + + + | Judaism Affiliation | 1077 | + + + | Race | Unknown | + + + | Ethnic Group | Unknown | + + + Author + + + | Author | [facility] | | | and [place] | + + + | Organization | [facility] | | | [...] Team Providers + +------+ + | Care Airplane Coverer Name | Role | Phone | + [...] | | | | | hy, | [address] | [address] | | | | | unspecified | [place], | [place] | | | | | Elevated | [place] [address] | [phone] | | | | | C-reactive | Phone: | Phone: | | | | | protein | [phone] | [phone] | | | | | (CRP) Other | Fax: | Fax: | | | | | specified | [phone] | [phone] | | | | | abnormal | [...] + + | 06/10/ | Office | [facility] | Mindy Nielsen | Positive NICKIE | | 2019 | Visit | RHEUMATOLOGY [address] | [place] Manzano [address] | (antinuclear | | | | [address] | [address] | antibody) (Primary | | | | [place] | [place] [address] | Dx) | | | | [address] | [phone] | | | | | [phone] | | | +--------+---------+ + + + [...] encounter Patient Instructions Patient Instructions Carmen Bailey Massage Therapy Instructor - 06/10/2019 10:20 AM PDTWe hope t hat you have experienced exceptional care today and that you found our service to be courteo us and helpful. If you have any questions or need medication refills you can send us a message/request u Inkling or call our office at [phone]. To reach Carmen CARROLL-C type extension [phone] To reach Paddy NE-C type extension [phone] If you are unable to reach a [...] can also look at your results on [employer]. If you are experiencing an emergency, please [...] Has been seeing Dr. Malhotra neurologist in [place] which did a nerve conduction study which [...] SEDRATE Imaging: Laboratory results were reviewed in [facility] as well as chart notes and [...] | | | | | [place] | | | | | | [id number] | | | | | | | | +--------+---------+ + + + documented as of this encounter Visit Diagnoses + + | Diagnosis | + + | Positive NICKIE (antinuclear antibody) - Primary Other and unspecified nonspecific | | immunological findings | + + documented in this encounter
--- OUTSIDE RECORDS SUMMARY | ~2019-12-19 | XMS | Encounter Summary ---
Demographics + + + | Address | [address] [address] | | | [place] [address] | + + + | Home Phone | | + + + | Preferred Language | Unknown | + + + | Marital Status | Single | + + + | Yarsani Affiliation | 1077 | + + + | Race | Unknown | + + + | Ethnic Group | Unknown | + + + Author + + + | Author | [facility] | | | and [place] | + + + | Organization | [facility] | | | [...] Team Providers + +------+ + | Care Development Disability Specialist Name | Role | Phone | + +------+ + PCP | Unavailable | + +------+ + Encounter Details +--------+ + + + + | Date | Type | Department | Care Team | Description | +--------+ + + + + | 02/06/ | Hospital | [facility] | Conversion | Chronic combined | | 2017 | Encounter | [facility] | Transaction, | systolic and | | | | CLINICAL DECISION | Provider Unknown | diastolic congestive | | | | [address] [facility] | [phone] | heart failure | | | | [place], [place] | | ([facility]); Persistent | | | | [address] | Rocael Benedict, | atrial fibrillation | | | | [phone] | MD [address] | ([facility]); Essential | | | | | [place] [address] | hypertension with | | | | | [phone] | goal blood pressure | | | | | | less than 130/80; | | | | | | Mixed | | | | | | hyperlipidemia; | | | | | | Chronic kidney | | | | | | disease, stage 3; | | | | | | Dyspnea on exertion; | | | | | | Angina effort | | | | | | ([facility]); Chronic | | | | | | kidney disease, | | | | | | stage II (mild) | +--------+ + + + + Social [...] + + + | Blood Pressure | 169/79 | 02/06/2017 6:37 PM | | | | | PDT | | + + + + + | Pulse | 56 | 02/06/2017 6:37 PM | | | | | PDT | | + + + + + | Temperature | 36.6 C (97.9 F) | 02/06/2017 6:37 PM | | | | | PDT | | + + + + + | Respiratory Rate | 16 | 02/06/2017 6:37 PM | | | | | PDT | | + + + + + | Oxygen Saturation | - | - | | + + + + + | Inhaled Oxygen | - | - | | | Concentration | | | | + + + + + | Weight | 160.6 kg (354 lb) | 02/06/2017 6:37 PM | | | | | PDT | | + + + + + | Height | 180.3 cm (5' 11") | 02/06/2017 6:37 PM | | | | | PDT | | + + + + + | Body Mass Index | 49.37 | 02/06/2017 6:37 PM | | | | | PDT | | + + + + + documented in this encounter Progress Notes Conversion Transaction, Provider Unknown - 02/06/2017 6:56 PM PDTFormatting of this note m ight be different from the original. Progress Notes by Penelope Dale RN at 02/06/171855 Author: Penelope Dale RN Service: (none) Author Type: Registered Nurse Filed: 02/06/171900 Date of Service: 02/06/171855 Status: Signed Wire Setter: Penelope Dale RN (Registered Nurse) Dr. Benedict 's phone Called and message left - Florencia notified Him That Aaron Latham Had 1 hour Left For iv Hydration and Left [place]. Devendra onver tara Transaction, Provider Unknown - 02/06/2017 6:56 PM PDT Progress Notes by Penelope Dale RN at 02/06/171855 Author: Penelope Dale RN Service: (none) Author Type: Registered Nurse Filed: 02/06/171903 Date of Service: 02/06/171855 Status: Signed Wire Setter: Penelope Dale RN (Registered Nurse) Personal Belongings With pt. Pt Wheeled To car With director medical surgical/car. Mother With Pt. Pt Awake and alert and No Distress. Devendra onver tara Transaction, Provider Unknown - 02/06/2017 6:54 PM PDT Progress Notes by Penelope Dale RN at 02/06/171853 Author: Penelope Dale RN Service: (none) Author Type: Registered Nurse Filed: 02/06/171901 Date of Service: 02/06/171853 Status: Addendum Wire Setter: Penelope Dale RN (Registered Nurse) Related Notes: Original Note by Penelope Dale RN (Registered Nurse) filed at 02/06/17 185 rn Explained To Both Pt And Mother Why Need to finish Iv Hydration but Both A re Demanding To Go home Now. rn Explained Dr. Benedict In Procedure Now And Unable To Come To Phone. Mother Became Agitated And States We Have A Medical Ride Waiting for us Since 10 Am. rn Replied - Plan of Care Was Inform to Both of Them To Stay Til and Both Agr eed and Now Demanding to Go home. Son Signed ama form rn Called Gardening Manager per mother's Demand. Tr band Instructions Reviewed with pt And mother By Nurse Miko- Malka Casey trband Site Cleaned per Policy and Sterile Dressing Applied. Devendra onver tara Transaction, Provider Unknown - 02/06/2017 6:40 PM PDT Progress Notes by Penelope Dale RN at 02/06/171839 Author: Penelope Dale RN Service: (none) Author Type: Registered Nurse Filed: 02/06/171840 Date of Service: 02/06/171839 Status: Signed Wire Setter: Penelope Dale RN (Registered Nurse) rn Diego Answered Dr. Benedict Phone/who is in middle of procedure/unable To talk Now. Devendra onver tara Transaction, Provider Unknown - 02/06/2017 6:35 PM PDT Progress Notes by Penelope Dale RN at 02/06/171834 Author: Penelope Dale RN Service: (none) Author Type: Registered Nurse Filed: 02/06/171836 Date of Service: 02/06/171834 Status: Signed Wire Setter: Penelope Dale RN (Registered Nurse) Pt And Mother Demanding to Go home Now. Pt States Drank 2000 Cc And Peed 550 Urine. Have A Gardening Manager Waiting Since 10 am. Plan of Care has Been Reviewed With pt And mother for Discharge At 8pm Repeated And they Had Agreed. No mention of Gardening Manager Outside ever Mentioned. Devendra onver tara Transaction, Provider Unknown - 02/06/2017 4:19 PM PDT Progress Notes by Penelope Dale RN at 02/06/17 1619 Author: Penelope Dale RN Service: (none) Author Type: Registered Nurse Filed: 02/06/17 1705 Date of Service: 02/06/17 1619 Status: Addendum Wire Setter: Penelope Dale RN (Registered Nurse) Related Notes: Original Note by Penelope Dale RN (Registered Nurse) filed at 02/06/17 1704 Plan of Care Explained To pt And Mother When Pt Arrived To Cdu. Rn Got Called into Room and Pt Wanted To Know What's Going On And When Is The Air Taken out Of trband rn Explained to Pt And Mother Again- air Was Taken Out Before Cha Left and No Air In There Now but TRband left on to remind him Not to Use Wrist. rn Explained Again He is Here Til 8pm For Iv Hydration for his Kidneys. Pt States " He Is Bored and Just Wants To Be Done." tv Is on And Pt Ordered Food. Mother At Bedside. Discharge Instructions already given / Done By Cha Ramsay onver tara Transaction, Provider Unknown - 02/06/2017 11:39 AM PDT Nurse Progress Note by Lary Stuart RN at 02/06/17 1139 Author: Lary Stuart RN Service: Cardiac, Thoracic, and Vascular Surgery Author Typ e: Registered Nurse Filed: 02/11/17 1032 Date of Service: 02/06/17 1139 Status: Signed Wire Setter: Lary Stuart RN (Registered Nurse) Sodium Bicarbonate 4.2% 5ml given infiltrate right wrist onver tara Transaction, Provider Unknown - 02/06/2017 11:39 AM PDT Nurse Progress Note by Lary Stuart RN at 02/06/17 1139 Author: Lary Stuart RN Service: Cardiac, Thoracic, and Vascular Surgery Author Typ e: Registered Nurse Filed: 02/11/17 1030 Date of Service: 02/06/171138 Status: Addendum Wire Setter: Lary Stuart RN (Registered Nurse) Related Notes: Original Note by Lary Stuart RN (Registered Nurse) filed at 02/11/17 1029 Sodium bicarbonate 4.2% 5 ml given to right wrist infiltrate docume nted in this encounter Plan of Treatment +--------+---------+ + + + | Date | Type | Specialty | Care Team | Description | +--------+---------+ + + + | 03/17/ | Office | Cardiology | Lorraine Clifton DO | | | 2019 | Visit | | [address] | | | | | | [place] | | | | | | [id number] | | | | | | | | +--------+---------+ + + + documented as of this encounter Procedures + +--------+ + + + | Procedure Name | Priori | Date/Time | Associated Diagnosis | Comments | | | ty | | | | + +--------+ + + + | HEPATIC FUNCTION | Routin | 02/06/2017 | | Results for this | | PANEL | e | 1:25 PM | | procedure are in the | | | | PDT | | results section. | + +--------+ + + + | PROTIME INR | Routin | 02/06/2017 | | Results for this | | | e | 11:03 AM | | procedure are in the | | | | PDT | | results section. | + +--------+ + + + | EXTERNAL LAB: CBC | Routin | 02/06/2017 | | Results for this | | | e | 10:54 AM | | procedure are in the | | | | PDT | | results section. | + +--------+ + + + | LIPID PANEL | Routin | 02/06/2017 | | Results for this | | | e | 10:54 AM | | procedure are in the | | | | PDT | | results section. | + +--------+ + + + | BASIC METABOLIC | Routin | 02/06/2017 | | Results for this | | PANEL | e | 10:54 AM | | procedure are in the | | | | PDT | | results section. | + +--------+ + + + documented in this encounter Results Hepatic Function Panel (02/06/2017 1:25 PM PDT) + + + + + + | Component | Value | Ref Range | Performed | Pathologist | | | | | At | Signature | + + + + + + | Protein, | 7.7 | 6.3 - 8.2 g/dL | EXTERNAL | | | Total | | | LAB | | + + + + + + | Albumin | 3.6 | 3.6 - 5.0 g/dL | EXTERNAL | | | | | | LAB | | + + + + + + | Bilirubin | 0.3 | 0.1 - 1.5 mg/dL | EXTERNAL | | | Total | | | LAB | | + + + + + + | Bilirubin | <0.1 | 0.0 - 0.3 mg/dL | EXTERNAL | | | Direct | | | LAB | | + + + + + + | ALP, | 67 | 35 - 115 U/L | EXTERNAL | | | External | | | LAB | | + + + + + + | AST | 22 | 10 - 45 U/L | EXTERNAL | | | | | | LAB | | + + + + + + | ALT | 29Comment: Testing | 10 - 65 U/L | EXTERNAL | | | | performed at [facility], [address] | | LAB | | | | [address], | | | | | | [place] [address] | | | | + + + + + + + + | Specimen | + + | Blood specimen | | (specimen) | + + + +---------+ + + | Performing | Address | City/State/Zipcode | Phone Number | | Organization | | | | + +---------+ + + | EXTERNAL LAB | | | | + +---------+ + + Protime INR (02/06/2017 11:03 AM PDT) + + + + + + | Component | Value | Ref Range | Performed | Pathologist | | | | | At | Signature | + + + + + + | INR | 1.1Comment: REFERENCE | | EXTERNAL | | | | RANGE:0.9 - 1.2 | | LAB | | | | NON-ANTICOAGULATED2.0 | | | | | | - 3.0 ALL OTHER | | | | | | THERAPEUTIC | | | | | | INDICATIONS2.5 - 3.5 | | | | | | MECHANICAL HEART VALVES, | | | | | | RECURRENT OR SYSTEMIC | | | | | | EMBOLISMTesting | | | | | | performed at [facility] | | | | | | [facility];[place], [place] | | | | | | [address] | | | | + + + [...] + +---------+ + + External Lab: CBC (02/06/2017 10:54 AM PDT) + + + + + + | Component | Value | Ref Range | Performed | Pathologist | | | | | At | Signature | + + + + + + | WBC | 8.43 | 3.80 - 11.00 | EXTERNAL | | | | | K/uL | LAB | | + + + + + + | Red Blood | 3.47 (L) | 4.20 - 5.70 | EXTERNAL | | | Cells | | M/uL | LAB | | | Counted | | | | | + + + + + + | Hemoglobin | 11.8 (L) | 13.2 - 17.0 | EXTERNAL | | | | | g/dL | LAB | | + + + + + + | Hematocrit, | 34.5 (L) | 39.0 - 50.0 % | EXTERNAL | | | POC | | | LAB | | + + + + + + | MCV | 99.3 | 80.0 - 100.0 fl | EXTERNAL | | | | | | LAB | | + + + + + + | MCH | 34.0 | 27.0 - 34.0 pg | EXTERNAL | | | | | | LAB | | + + + + + + | MCHC | 34.2 | 32.0 - 35.5 | EXTERNAL | | | | | g/dL | LAB | | + + + + + + | RDW-CV | 50.8 | 37 - 53 fl | EXTERNAL | | | | | | LAB | | + + + + + + | Platelet | 261 | 150 - 400 K/uL | EXTERNAL | | | Count | | | LAB | | | Plasma | | | | | + + + + + + | MPV | 8.1 | fl | EXTERNAL | | | | | | LAB | | + + + + + + | Differentia | AUTOMATED | | EXTERNAL | | | l Type | | | LAB | | + + + + + + | % Segmented | 71.62 | % | EXTERNAL | | | | | | LAB | | | Neutrophils | | | | | + + + + + + | % | 17.27 | % | EXTERNAL | | | Lymphocytes | | | LAB | | + + + + + + | % Monocytes | 7.02 | % | EXTERNAL | | | | | | LAB | | + + + + + + | % | 3.09 | % | EXTERNAL | | | Eosinophils | | | LAB | | + + + + + + | % Basophils | 1.00 | % | EXTERNAL | | | | | | LAB | | + + + + + + | Absolute | 6.04 | 1.90 - 7.40 | EXTERNAL | | | Segmented | | K/uL | LAB | | | Neutrophils | | | | | + + + + + + | Absolute | 1.46 | 1.00 - 3.90 | EXTERNAL | | | Lymphocytes | | K/uL | LAB | | + + + + + + | Absolute | 0.59 | 0.00 - 0.80 | EXTERNAL | | | Monocytes | | K/uL | LAB | | + + + + + + | Absolute | 0.26 | 0.00 - 0.50 | EXTERNAL | | | Eosinophils | | K/uL | LAB | | + + + + + + | Absolute | 0.08Comment: Testing | 0.00 - 0.10 | EXTERNAL | | | Basophils | performed at [facility];[address] | LAB | | | | [address];[place] | | | | | | [address] | | | | + + + + + + + + | Specimen | + + | Blood specimen | | (specimen) | + + + +---------+ + + | Performing | Address | City/State/Zipcode | Phone Number | | Organization | | | | + +---------+ + + | EXTERNAL LAB | | | | + +---------+ + + Lipid Panel (02/06/2017 10:54 AM PDT) + + + + + + | Component | Value | Ref Range | Performed | Pathologist | | | | | At | Signature | + + + + + + | Cholesterol | 149 | mg/dL | EXTERNAL | | | | | | LAB | | + + + + + + | Triglycerid | 156 (H) | mg/dL | EXTERNAL | | | es | | | LAB | | + + + + + + | HDL | 43 | mg/dL | EXTERNAL | | | | | | LAB | | + + + + + + | LDL, | 75Comment: Testing | mg/dL | EXTERNAL | | | Calculated | performed at [facility], [address] | | LAB | | | | [address], | | | | | | [place] [address] | | | | + + + + + + + + | Specimen | + + | Blood specimen | | (specimen) | + + + +---------+ + + | Performing | Address | City/State/Zipcode | Phone Number | | Organization | | | | + +---------+ + + | EXTERNAL LAB | | | | + +---------+ + + Basic Metabolic Panel (02/06/2017 10:54 AM PDT) + + + + + + | Component | Value | Ref Range | Performed | Pathologist | | | | | At | Signature | + + + + + + | Na | 141 | 135 - 145 | EXTERNAL | | | | | mmol/L | LAB | | + + + + + + | K | 4.2 | 3.5 - 4.9 | EXTERNAL | | | | | mmol/L | LAB | | + + + + + + | Cl | 103 | 99 - 109 mmol/L | EXTERNAL | | | | | | LAB | | + + + + + + | CO2 | 31 | 23 - 32 mmol/L | EXTERNAL | | | | | | LAB | | + + + + + + | Anion Gap | 11 | 5 - 20 mmol/L | EXTERNAL | | | | | | LAB | | + + + + + + | Glucose, | 108 (H) | 65 - 99 mg/dL | EXTERNAL | | | Fasting | | | LAB | | + + + + + + | BUN | 35 (H) | 8 - 25 mg/dL | EXTERNAL | | | | | | LAB | | + + + + + + | Creatinine | 1.7 (H) | 0.70 - 1.30 | EXTERNAL | | | | | mg/dL | LAB | | + + + + + + | BUN/Creatin | 21 | | EXTERNAL | | | ine Ratio | | | LAB | | + + + + + + | Calcium | 8.2 (L) | 8.5 - 10.5 | EXTERNAL | | | | | mg/dL | LAB | | + + + + + + | Estimated | 45 (L)Comment: GFR <60: | mL/min/1.73m2 | EXTERNAL | | | GFR | CHRONIC KIDNEY DISEASE, | | LAB | | | | IF FOUND OVER A 3 MONTH | | | | | | PERIOD.GFR <15: KIDNEY | | | | | | FAILURE.FOR | | | | | | AMERICANS, MULTIPLY THE | | | | | | CALCULATED GFR BY | | | | | | 1.210.Testing performed | | | | | | at [facility];[address] [place] [address] | | | | | | [facility];[place] [address] | | | | + + + [...] | Diagnosis | + + | Chronic combined systolic and diastolic congestive heart failure (HCC) Chronic | | combined systolic and diastolic heart failure | + + | Persistent atrial fibrillation (HCC) Atrial fibrillation | + + | Essential hypertension with goal blood pressure less than 130/80 | + + | Mixed hyperlipidemia | + + | Chronic kidney disease, stage 3 (HCC) | + + | Dyspnea on exertion Other dyspnea and respiratory abnormality | + + | Angina effort Other and unspecified angina pectoris | + + | Chronic kidney disease, stage II (mild) Chronic kidney disease, Stage II (mild) | + + documented in this encounter
--- OUTSIDE RECORDS SUMMARY | ~2019-12-19 | XMS | Encounter Summary ---
Demographics + + + | Address | [address] [address] | | | [place] [address] | + + + | Home Phone | | + + + | Preferred Language | Unknown | + + + | Marital Status | Single | + + + | Cheondoism Affiliation | 1077 | + + + | Race | Unknown | + + + | Ethnic Group | Unknown | + + + Author + + + | Author | [facility] | | | and [place] | + + + | Organization | [facility] | | [...] Team Providers + +------+ + | Care Humidifier Maintenance Worker Name | Role | Phone | + +------+ + | Sarah Carroll MD | PCP | | + +------+ + Encounter Details +--------+ + + + + | Date | Type | Department | Care Team | Description | +--------+ + + + + | 07/28/ | Orders Only | [facility] | Jewel Ulloa MD | | | 2018 | | NEPHROLOGY [place] | [address] [place] | | | | | [address] [place] | [address] [place], [place] | | | | | [address] [place], [place] | [address] | | | | | [address] | | | | | | [phone] | | | +--------+ + + + [...] | | | | | [place] | | | | | | [id number] | | | | | | | | +--------+---------+ + + + documented as of this encounter Procedures + +--------+ + + + | Procedure Name | Priori | Date/Time | Associated Diagnosis | Comments | | | ty | | | | + +--------+ + + + | EXTERNAL LAB: SHARDA | Routin | 07/28/2018 | | Results for this | | | e | 9:45 AM | | procedure are in the | | | | PST | | results section. | + +--------+ + + + documented in this encounter Results External Lab: CBC (07/28/2018 9:45 AM PST) + + + + + + | Component | Value | Ref Range | Performed | Pathologist | | | | | At | Signature | + + + + + + | WBC | 7.0 | 4.5 - 11.0 10 | EXTERNAL | | | | | | LAB | | + + + + + + | Red Blood | 3.45 (A) | 4.3 - 5.7 10 | EXTERNAL | | | Cells | | | LAB | | | Counted | | | | | + + + + + + | Hemoglobin | 11.3 (A) | 13.5 - 18.0 | EXTERNAL | | | | | g/dL | LAB | | + + + + + + | Hematocrit, | 33.5 (A) | 41 - 50 % | [...] + + + + | Platelet | 298 | 140 - 440 K/ L | [...]
--- OUTSIDE RECORDS SUMMARY | ~2019-12-19 | XMS | Encounter Summary ---
Demographics + + + | Address | [address] [address] | | | [place] [address] | + + + | Home Phone [...] Team Providers + +------+ + | Care Wooden Barrel Mechanic Name | Role | Phone | + +------+ + PCP | Unavailable | + +------+ + Encounter Details +--------+ + + + + | Date | Type | Department | Care Team | Description | +--------+ + + + + | 02/06/ | Hospital | [facility] | Conversion | Chronic combined | | 2017 | Encounter | [facility] | Transaction, | systolic and | | | | CLINICAL DECISION | Provider Unknown | diastolic congestive | | | | [address] [facility] | [phone] | heart failure | | | | [place], [place] | | ([facility]); Persistent | | | | [address] | Rocael Benedict, | atrial fibrillation | | | | [phone] | MD [address] | ([facility]); Essential | | | | | [place] [address] | hypertension with | | | | | [phone] | goal blood pressure | | | [...] effort | | | | | | ([facility]); Chronic | | | | | | [...] 02/06/171900 Date of Service: 02/06/171855 Status: Signed Brand Advocate: Penelope Dale RN (Registered Nurse) Dr. Benedict 's phone Called and message left - Florencia notified Him That Aaron Latham Had 1 hour Left For iv Hydration and Left [place]. Devendra onver tara Transaction, Provider Unknown - 02/06/2017 6:56 PM PDT Progress Notes by Penelope Dale RN at 02/06/171855 Author: Penelope Dale RN Service: (none) Author Type: Registered Nurse Filed: 02/06/171903 Date of Service: 02/06/171855 Status: Signed Brand Advocate: Penelope Dale RN (Registered Nurse) Personal Belongings With pt. Pt Wheeled To car With medical superintendent/car. Mother With Pt. Pt Awake and alert and No Distress. Devendra onver tara Transaction, Provider Unknown - 02/06/2017 6:54 PM PDT Progress Notes by Penelope Dale RN at 02/06/171853 Author: Penelope Dale RN Service: (none) Author Type: Registered Nurse Filed: 02/06/171901 Date of Service: 02/06/171853 Status: Addendum Brand Advocate: Penelope Dale RN (Registered Nurse) Related Notes: [...] home. Son Signed ama form rn Called Ecological Modeler per mother's Demand. Tr band Instructions Reviewed with pt And mother By Nurse Miko- Malka Casey trband Site Cleaned per Policy and Sterile Dressing Applied. Devendra onver tara Transaction, Provider Unknown - 02/06/2017 6:40 PM PDT Progress Notes by Penelope Dale RN at 02/06/171839 Author: Penelope Dale RN Service: (none) Author Type: Registered Nurse Filed: 02/06/171840 Date of Service: 02/06/171839 Status: Signed Brand Advocate: Penelope Dale RN (Registered Nurse) rn Diego Answered Dr. Benedict Phone/who is in middle of procedure/unable To talk Now. Devendra onver tara Transaction, Provider Unknown - 02/06/2017 6:35 PM PDT Progress Notes by Penelope Dale RN at 02/06/171834 Author: Penelope Dale RN Service: (none) Author Type: Registered Nurse Filed: 02/06/171836 Date of Service: 02/06/171834 Status: Signed Brand Advocate: Penelope Dale RN (Registered Nurse) Pt And Mother Demanding to Go home Now. Pt States Drank 2000 Cc And Peed 550 Urine. Have A Ecological Modeler Waiting Since 10 am. Plan of Care has Been Reviewed With pt And mother for Discharge At 8pm Repeated And they Had Agreed. No mention of Ecological Modeler Outside ever Mentioned. Devendra onver tara Transaction, Provider Unknown - 02/06/2017 4:19 PM PDT Progress Notes by Penelope Dale RN at 02/06/17 1619 Author: Penelope Dale RN Service: (none) Author Type: Registered Nurse Filed: 02/06/17 1705 Date of Service: 02/06/17 1619 Status: Addendum Brand Advocate: Penelope Dale RN (Registered Nurse) Related Notes: [...] Date of Service: 02/06/17 1139 Status: Signed Brand Advocate: Lary Stuart RN (Registered Nurse) Sodium Bicarbonate 4.2% 5ml given infiltrate right wrist onver tara Transaction, Provider Unknown - 02/06/2017 11:39 AM PDT Nurse Progress Note by Lary Stuart RN at 02/06/17 1139 Author: Lary Stuart RN Service: Cardiac, Thoracic, and Vascular Surgery Author Typ e: Registered Nurse Filed: 02/11/17 1030 Date of Service: 02/06/171138 Status: Addendum Brand Advocate: Lary Stuart RN (Registered Nurse) Related Notes: [...] | | | | | [place]EN[place] | | | | | | [id number] | | | | | | | [...] EXTERNAL | | | | performed at [facility], [address] | | LAB | | | | [address], | | | | | | [place] [address] | | | | + + + [...] | | | | | performed at [facility] | | | | | | [facility];[place], [place] | | | | | | [address] | | | | + + + [...] | | | Basophils | performed at [facility];[address] | [address] | LAB | | | | [address];[place] | | | | | | [address] | | | | + + + [...] | | | Calculated | performed at [facility], [address] | | LAB | | | | [address], | | | | | | [place] [address] | | | | + + + [...] | | | | | | at [facility];[address] [place] [address] | | | | | | [facility];[place] [address] | | | | + + + [...]
--- OUTSIDE RECORDS SUMMARY | ~2019-12-19 | XMS | Encounter Summary ---
Demographics + + + | Address | [address] [address] | | | [place] [address] | + + + | Home Phone [...] Author + + + | Author | [facility] | | | and [place] | + + + | Organization | [facility] | | [...] Team Providers + +------+ + | Care Occupational Therapy Specialist Name | Role | Phone | [...] [place] | | | | | [address] | [address] | | | | | [phone] | | | +--------+ + + + [...] [place] | | | | | | [address] | | | | | | | | +--------+---------+ + + + documented as of this encounter Visit Diagnoses Not on filedocumented in this encounter"
--- OUTSIDE RECORDS SUMMARY | ~2019-12-19 | XMS | Encounter Summary ---
Demographics + + + | Address | [address] [address] | | | [place] [address] | + + + | Home Phone | | + + + | Preferred Language | Unknown | + + + | Marital Status | Single | + + + | Denominational Affiliation | 1077 | + + + | Race | Unknown | + + + | Ethnic Group | Unknown | + + + Author + + + | Author | [facility] | | | and [place] | + + + | Organization | [facility] | | [...] Team Providers + +------+ + | Care Behavior Analyst Name | Role | Phone | [...] | | | [place] OFFICE | [place] [address] | [address] Phone: | | | | | OUTPATIENT | Phone: | [phone] | | | | | VISIT 15 | [phone] | Fax: | | | | | MINUTES CC | Fax: | [phone] | | | | | FOLLOW UP | [phone] | | +--------+--------+ + + + + [...] | | | | [place] | [address] | excess calories with | | | | [address] | | body mass index | | | | [phone] | | (BMI) of 45.0 to | [...] kidney and ureter. How to say it LI-vpu-kdn-SKOP-ik IFV-cbz-ALGH-lc-lbze-BWP-tuh-joey Getting readyfor surgery Follow any instructions from your healthcare provider. Tell your provider about any medicines you are taking. You may need to stop taking all or s ome of these before the test. These include: All prescription medicines Blood-thinning medicines (anticoagulants) Haee-faa-hztxuku medicines such as aspirin or ibuprofen Street [...] discuss these with you. Date Last Reviewed: 12/10/201619993132-7104 [employer]. [address] [place] [address]. All righ ts reserved. This information is not intended as a substitute for professional medical care. Always follow your healthcare professional's instructions. documented in this encounter Progress Notes Patrice Cross MD - 05/15/2018 1:30 PM PDTFormatting of this note might be different from t harini quinones. [facility] OFFICE NOTE Primary Care Physician: Sarah [...] FLEXIBLE SIGMOIDOSCOPY; Surgeon: Mehul Bowles MD; Location: [facility] MAIN OR COLONOSCOPY 05/22/2017 FINGER SURGERY Right [...] at 13:24 CC: Sarah Gallegos MD [address] [place] [address] documented in this encou nter Plan of Treatment +--------+---------+ + + + | Date | Type | Specialty | Care Team | Description | +--------+---------+ + + + | 03/17/ | Office | Cardiology | Lorraine Clifton DO | | | 2020 | Visit | | [address] | | | | | | [place] | | | | | | [address] | | | | | | | [...] 1.001 - 1.030 | | | | [place], | | | | | | [facility], [...]
--- OUTSIDE RECORDS SUMMARY | ~2019-12-19 | XMS | Encounter Summary ---
Demographics + + + | Address | [address] [address] | | | [place] [address] | + + + | Home Phone | | + + + | Preferred Language | Unknown | + + + | Marital Status | Single | + + + | Samaritan Affiliation | 1077 | + + + | Race | Unknown | + + + | Ethnic Group | Unknown | + + + Author + + + | Author | [facility] | | | and [place] | + + + | Organization | [facility] | | | and [...] Team Providers + +------+ + | Care Coremaker Supervisor Name | Role | Phone | + +------+ + | Sarah Carroll MD | PCP | | + +------+ + Encounter Details +--------+ + + + + | Date | Type | Department | Care Team | Description | +--------+ + + + + | 05/04/ | Orders Only | [facility] | Todd Munoz, | Positive NICKIE | | 2019 | | [address] | Circus Artist | (antinuclear | | | | [place] | | antibody); Pain in | | | | [address] | | joint, multiple | | | | [phone] | | sites | +--------+ + + + + Social [...] [place] | | | | | | [address] | | | | | | | [...] antibody) | | + +------+--------+ + + documented as of this encounter Procedures + +--------+ + + + | Procedure Name | Priori | Date/Time | Associated Diagnosis | Comments | | | ty | | | | + +--------+ + + + | URINALYSIS WITH | Routin | 05/04/2019 | Positive NICKIE | Results for this | | MICROSCOPIC IF | e | 9:25 AM | (antinuclear | procedure are in the | | INDICATED | | PDT | antibody) | results section. | + +--------+ + + + | PROTEIN/CREATININE | Routin | 05/04/2019 | Positive NICKIE | Results for this | | RATIO, URINE | e | 9:23 AM | (antinuclear | procedure are in the | | | | PDT | antibody) | results section. | + +--------+ + + + | PROTEIN, URINE, | Routin | 05/04/2019 | | Results for this | | RANDOM | e | 9:23 AM | | procedure are in the | | | | PDT | | results section. | + +--------+ + + + | CREATININE, URINE, | Routin | 05/04/2019 | | Results for this | | RANDOM | e | 9:23 AM | | procedure are in the | | | | PDT | | results section. | + +--------+ + + + | NICKIE, IFA | Routin | 05/04/2019 | Positive NICKIE | Results for this | | | e | 9:22 AM | (antinuclear | procedure are in the | | | | PDT | antibody) | results section. | + +--------+ + + + | NICKIE PROFILE, REFLEX | Routin | 05/04/2019 | Positive NICKIE | Results for this | | | e | 9:22 AM | (antinuclear | procedure are in the | | | | PDT | antibody) | results section. | + +--------+ + + + | C3 AND C4 | Routin | 05/04/2019 | Positive NICKIE | Results for this | | | e | 9:22 AM | (antinuclear | procedure are in the | | | | PDT | antibody) | results section. | + +--------+ + + + | SEDIMENTATION RATE | Routin | 05/04/2019 | Positive NICKIE | Results for this | | | e | 9:22 AM | (antinuclear | procedure are in the | | | | PDT | antibody) | results section. | + +--------+ + + + | DNA DOUBLE-STRANDED | Routin | 05/04/2019 | Positive NICKIE | Results for this | | AB, IGG | e | 9:22 AM | (antinuclear | procedure are in the | | | | PDT | antibody) | results section. | + +--------+ + + + | DNA DOUBLE-STRANDED | Routin | 05/04/2019 | Positive NICKIE | Results for this | | AB, IGG (CRITHIDIA | e | 9:22 AM | (antinuclear | procedure are in the | | LUCILIAE) | | PDT | antibody) | results section. | + +--------+ + + + | CBC WITH | Routin | 05/04/2019 | Positive NICKIE | Results for this | | DIFFERENTIAL | e | 9:22 AM | (antinuclear | procedure are in the | | | | PDT | antibody) | results section. | + +--------+ + + + | C-REACTIVE PROTEIN | Routin | 05/04/2019 | Positive NICKIE | Results for this | | | e | 9:22 AM | (antinuclear | procedure are in the | | | | PDT | antibody) | results section. | + +--------+ + + + | URIC ACID | Routin | 05/04/2019 | Pain in joint, | Results for this | | | e | 9:22 AM | multiple sites | procedure are in the | | | | PDT | | results section. | + +--------+ + + + | COMPREHENSIVE | Routin | 05/04/2019 | Positive NICKIE | Results for this | | METABOLIC PANEL | e | 9:22 AM | (antinuclear | procedure are in the | | | | PDT | antibody) | results section. | + +--------+ + + + documented in this encounter Results Urinalysis with Microscopic if [...] - 1.030 | REFERENCE | | | [place], | | | LAB | | | [...] REFERENCE | | | | performed at [facility];[address] | | LAB | | | | [place] | | [facility] | | | | [address];[place] [address] | | LABORATORY | | + + + + + + + + | Specimen | + + | Urine | + + + + + + + | Performing | Address | City/State/Zipcode | Phone Number | | Organization | | | | + + + + + | REFERENCE LAB | [address] [facility] | [place] | [phone] | | [facility] | Bl[address] | [address] | | | LABORATORY | | | | + + + + + | REFERENCE LAB | [address] [place] [address] | [place] | | | [facility] | Bl[address] | [address] | | | LABORATORY | | | | + + + + + Protein, Urine, Random (05/04/2019 9:23 AM PDT) + + + + + + | Component | Value | Ref Range | Performed | Pathologist | | | | | At | Signature | + + + + + + | Protein, | 32Comment: NO NORMAL | mg/dL | REFERENCE | | | Urine | RANGE ESTABLISHEDTesting | | LAB | | | | performed at [facility];[address] | | [facility] | | | | [place] | | LABORATORY | | | | Blvd;[place] [address] | | | | | | | | | | + + + + + + + + | Specimen | + + | | + + + + + + + | Performing | Address | City/State/Zipcode | Phone Number | | Organization | | | | + + + + + | REFERENCE LAB | [address] [place] [address] | [place] | [phone] | | [facility] | Bl[address] | [address] | | | LABORATORY | | | | + + + + + | REFERENCE LAB | [address] [place] [address] | [place], [place] | | | [facility] | Blvd. | [address] | | | LABORATORY | | | | + + + + + Creatinine, Urine, Random (05/04/2019 9:23 AM PDT) + + + + + + | Component | Value | Ref Range | Performed | Pathologist | | | | | At | Signature | + + + + + + | Creatinine, | 190.0Comment: NO NORMAL | mg/dL | REFERENCE | | | random | RANGE ESTABLISHEDTesting | | LAB | | | urine | performed at [facility];[address] | | [facility] | | | | [facility] | | LABORATORY | | | | Blvd;[place] [address] | | | | | | | | | | + + + + + + + + | Specimen | + + | | + + + + + + + | Performing | Address | City/State/Zipcode | Phone Number | | Organization | | | | + + + + + | REFERENCE LAB | [address] [place] [address] | [place], [place] | [phone] | | [facility] | Blvd. | [address] | | | LABORATORY | | | | + + + + + | REFERENCE LAB | [address] [place] [address] | [place], [place] | | | [facility] | Blvd. | [address] | | | LABORATORY | | | [...] | | | RATIO,URINE | performed at [facility];[address] | | LAB | | | | [place] | | [facility] | | | | Bl[address];[place] [address] | | LABORATORY | | + + + + + + + + | Specimen | + + | Urine | + + + + + + + | Performing | Address | City/State/Zipcode | Phone Number | | Organization | | | | + + + + + | REFERENCE LAB | [address] [place] [address] | [place], [place] | [phone] | | [facility] | Bl[address] | [address] | | | LABORATORY | | | | + + + + + | REFERENCE LAB | [address] [place] [address] | [place], [place] | | | [facility] | Bl[address] | [address] | | | LABORATORY | | | [...] REFERENCE | | | | performed at [facility];[address] | | LAB | | | | [place] | | [facility] | | | | Bl[address];[place] [address] | | LABORATORY | | + + + + + + + + | Specimen | + + | Blood | + + + + + + + | Performing | Address | City/State/Zipcode | Phone Number | | Organization | | | | + + + + + | REFERENCE LAB | [address] [facility] | [place] | [phone] | | [facility] | [address] | [address] | | | LABORATORY | | | | + + + + + | REFERENCE LAB | [address] | [place] | | | [facility] | Bl[address] | [address] | | | LABORATORY | | | [...] | | | Absolute | performed at [facility];[address] | [address] | LAB | | | | [place] | | [facility] | | | | [address];[place] [address] | | LABORATORY | | + + + + + + + + | Specimen | + + | Blood | + + + + + + + | Performing | Address | City/State/Zipcode | Phone Number | | Organization | | | | + + + + + | REFERENCE LAB | [address] [facility] | [place], [place] | [phone] | | [facility] | Bl[address] | [address] | | | LABORATORY | | | | + + + + + | REFERENCE LAB | [address] [facility] | [place] | | | [facility] | Bl[address]. | [address] | | | LABORATORY | | | [...] | | | | | | MDRD IDGA traceable | | | | | | equation.Testing | | | | | | performed at [facility];[address] | | | | | | [facility] | | | | | | [facility];[place] [address] | | | | | | | | | | + + + + + + + + | Specimen | + + | Blood | + + + + + + + | Performing | Address | City/State/Zipcode | Phone Number | | Organization | | | | + + + + + | REFERENCE LAB | [address] [place] [address] | [place], [place] | [phone] | | [facility] | Bl[address] | [address] | | | LABORATORY | | | | + + + + + | REFERENCE LAB | [address] [place] [address] | [place], [place] | | | [facility] | Bl[address] | [address] | | | LABORATORY | | | [...] REFERENCE | | | | performed at [facility];[address] | | LAB | | | | [place] | | [facility] | | | | Bl[address];[place] [address] | | LABORATORY | | + + + + + + + + | Specimen | + + | Blood | + + + + + + + | Performing | Address | City/State/Zipcode | Phone Number | | Organization | | | | + + + + + | REFERENCE LAB | [address] [facility] | [place] | [phone] | | [facility] | Bl[address] | [address] | | | LABORATORY | | | | + + + + + | REFERENCE LAB | [address] [facility] | [place] | | | [facility] | Bl[address] | [address] | | | LABORATORY | | | [...] REFERENCE | | | | performed at [facility];[address] | | LAB | | | | [place] | | [facility] | | | | Bl[address];[place] [address] | | LABORATORY | | + + + + + + + + | Specimen | + + | Blood | + + + + + + + | Performing | Address | City/State/Zipcode | Phone Number | | Organization | | | | + + + + + | REFERENCE LAB | [address] [facility] | [place] | [phone] | | [facility] | [address] | [address] | | | LABORATORY | | | | + + + + + | REFERENCE LAB | [address] [facility] | [place] | | | [facility] | Bl[address]. | [address] | | | LABORATORY | | | [...] | | | | | performed at [facility], [address] | | | | | | [facility] | | | | | | [place] [address] | | | | + + + + + + + + | Specimen | + + | Blood | + + + + + + + | Performing | Address | City/State/Zipcode | Phone Number | | Organization | | | | + + + + + | REFERENCE LAB | [address] | [place] | [phone] | | [facility] | Bl[address] | [address] | | | LABORATORY | | | | + + + + + | REFERENCE LAB | [address] [facility] | [place] | | | [facility] | Bl[address]. | [address] | | | LABORATORY | | | [...] | | | | | | at [facility], [address] | | | | | | [place] | | | | | | [address] | | | | + + + + + + + + | Specimen | + + | Blood | + + + + + + + | Performing | Address | City/State/Zipcode | Phone Number | | Organization | | | | + + + + + | REFERENCE LAB | [address] [place] [address] | [place], [place] | [phone] | | [facility] | Bl[address] | [address] | | | LABORATORY | | | | + + + + + | REFERENCE LAB | [address] [place] [address] | [place] | | | [facility] | Blvd. | [address] | | | LABORATORY | | | | + + + + + DNA Double-Stranded Ab, IgG (Curt Painter) (05/04/2019 9:22 AM PDT) + + + [...] criterion | | | | | | ([employer] | | | | | [...] | | | | | validated by [employer] | | | | | | [employer] This | | | | | [...] by | | | | | | [employer] | | | | | | Inc.Effective June | | | | | | 2018 dsDNA (nDNA) | | | | | | Scrn by Curt will | | | | | | be made non-orderable. | | | | | | [facility] offers [id number] | | | | | | dsDNA Curt painter | | | | | | IFA. For further | | | | | | information, please | | | | | | contact your local | | | | | | [facility] | | | | | | Emergency Physician.Testing | | | | | | performed at [facility] | | | | | | [facility], [address] | | | | | | [place], [facility] | | | | | | [address] [place] [address] | | | | | | [phone]. | | | | + + + + + + + + | Specimen | + + | Blood | + + + + + + + | Performing | Address | City/State/Zipcode | Phone Number | | Organization | | | | + + + + + | REFERENCE LAB | [address] [facility] | [place] | [phone] | | [facility] | Bl[address] | [address] | | | LABORATORY | | | | + + + + + | REFERENCE LAB | [address] [facility] | [place], [place] | | | [facility] | Blvd. | [address] | | | LABORATORY | | | [...] | | | COMPLEMENT | performed at [facility];[address] | | LAB | | | | [place] | | [facility] | | | | Bl[address];[place] [address] | | LABORATORY | | + + + + + + + + | Specimen | + + | Blood | + + + + + + + | Performing | Address | City/State/Zipcode | Phone Number | | Organization | | | | + + + + + | REFERENCE LAB | [address] [facility] | [place] | [phone] | | [facility] | [address] | [address] | | | LABORATORY | | | | + + + + + | REFERENCE LAB | [address] [facility] | [place] | | | [facility] | Bl[address]. | [address] | | | LABORATORY | | | [...] | | | Qual | performed at [facility], [address] | | LAB | | | | [address] [facility] | | [place] | | | | [place] [address] | | LABORATORY | | + + [...] | | | | | with both IA-3 and | | | | | | [...] | | 3 Antibody | performed by [facility], | | LAB | | | | [address], | | [place] | | | | [facility] [address] | | LABORATORY | | + + + + + + + + | Specimen | + + | Blood | + + + + + + + | Performing | Address | City/State/Zipcode | Phone Number | | Organization | | | | + + + + + | REFERENCE LAB | [address] [place] [address] | [place], [place] | [phone] | | [facility] | Bl[address] | [address] | | | LABORATORY | | | | + + + + + | REFERENCE LAB | [address] [place] [address] | [place], [place] | | | [facility] | Bl[address]. | [address] | | | LABORATORY | | | | + + + + + documented in this encounter Visit Diagnoses + + | Diagnosis | + + | Positive NICKIE (antinuclear antibody) Other and unspecified nonspecific immunological | | findings | + + | Pain in joint, multiple sites | + + documented in this encounter"
--- OUTSIDE RECORDS SUMMARY | ~2019-12-19 | XMS | Encounter Summary ---
Demographics + + + | Address | [address] [address] | | | [place] [address] | + + + | Home Phone [...] Team Providers + +------+ + | Care User Experience Architect Name | Role | Phone | + [...] | | | | | hy, | [address] | [address] | | | | | unspecified | [place], | [place] | | | | | Elevated | [place] [address] | [address] | | | | | C-reactive | Phone: | Phone: | | | | | protein | [phone] | [phone] | | | | | (CRP) Other | Fax: | Fax: | | | | | specified | [phone] | [phone] | | | | | abnormal | [...] + + | 06/10/ | Office | [facility] | Mindy Nielsen | Positive NICKIE | | 2019 | Visit | RHEUMATOLOGY [address] | [place] [address]zano [address] | (antinuclear | | | | [address] | [address] | antibody) (Primary | | | | [place] | [place] [address] | Dx) | | | | [address] | [phone] | | | | | [phone] | | | +--------+---------+ + + + [...] encounter Patient Instructions Patient Instructions [facility]en [facility] Nurse - 06/10/2019 10:20 AM PDTWe hope t hat you have experienced exceptional care today and that you found our service to be courteo us and helpful. If you have any questions or need medication refills you can send us a message/request u [employer] or call our office at [phone]. To reach Carmen CARROLL-C type extension [phone] To reach Paddy DC-C type extension [phone] If you are unable to reach a [...] can also look at your results on [employer]. If you are experiencing an emergency, please [...] Has been seeing Dr. Malhotra neurologist in [place] which did a nerve conduction study which [...] SEDRATE Imaging: Laboratory results were reviewed in [facility] as well as chart notes and [...] | | | | | [place] | | | | | | [id number] | | | | | | | | +--------+---------+ + + + documented as of this encounter Visit Diagnoses + + | Diagnosis | + + | Positive NICKIE (antinuclear antibody) - Primary Other and unspecified nonspecific | | immunological findings | + + documented in this encounter
--- OUTSIDE RECORDS SUMMARY | ~2019-12-19 | XMS | Encounter Summary ---
Demographics + + + | Address | [address] [address] | | | [place] [address] | + + + | Home Phone [...] Team Providers + +------+ + | Care Security Trainer Name | Role | Phone | + +------+ + | Sarah Carroll MD | PCP | | + +------+ + Encounter Details +--------+ + + + + | Date | Type | Department | Care Team | Description | +--------+ + + + + | 12/13/ | Virtual | [facility] | Jewel Ulloa MD | Chronic kidney | | 2019 | Office | NEPHROLOGY [place] | [address] [place] | disease, stage 3 | | | Visit | [address] | [address] [place], [place] | ([facility]) (Primary Dx); | | | | [address] | [address] | Anemia of chronic | | | | [place], [place] | | renal failure, stage | | | | [address] | | 3 (moderate) ([facility]); | | | | [phone] | | Persistent | | | | [...] | | | | 59.9 in adult ([facility]); | | | | | [...] RFP, CBC, uric acid, iPTH, Urine total wczbzov-ih-dpwrmdorjs ratio before he comes back in 12 [...] RFP, CBC, uric acid, iPTH, Urine total cwfctsc-vd-zedgimpyyw ratio before he comes back in 12 months. Clinical discussion length: 11-20 min ([id number]) Patient has not been seen in office [...] | | | | | [place] | | | | | | [address] | | | | | | | [...]
--- OUTSIDE RECORDS SUMMARY | ~2019-12-19 | XMS | Encounter Summary ---
Demographics + + + | Address | [address] | | | [place] [address] | + + + | Home Phone | | + + + | Preferred Language | Unknown | + + + | Marital Status | Single | + + + | Voodoo Affiliation | LDS | + + + [...] [place] | | | | | [address] | | + + + + + Care Team Providers + +------+ + | Care Service Bar Cashier Name | Role | Phone | + [...] | +--------+ + + + + | 07/02/ | Telephone | [facility] | [place], | Telephone follow-up | | 2019 | | [facility] [address] | MD [address] | | | | | [place]al[place] Mailcode: | Jeffery De La Torre Rosario | | | | | [facility] | [place], [place] | | | | | Health and Healing, | [address] | | | | | [address] | [phone] | | | | | [place], [place] | | | | | | [address] | | | | | | [phone] | | | +--------+ + + + [...] Rd | | | | | | [place], [place] | | | | | | [address] | | | | | | [phone] | | | | | | | | +--------+---------+ + + + documented as of this encounter Visit Diagnoses Not on filedocumented in this encounter"
--- OUTSIDE RECORDS SUMMARY | ~2019-12-19 | XMS | Encounter Summary ---
Demographics + + + | Address | [address] [address] | | | [place] [address] | + + + | Home Phone [...] Team Providers + +------+ + | Care Automatic Clipper Name | Role | Phone | + +------+ + | Sarah Carroll MD | PCP | | + +------+ + Encounter Details +--------+ + + + + | Date | Type | Department | Care Team | Description | +--------+ + + + + | 02/04/ | Orders Only | [facility] | Jewel Ulloa MD | | | 2019 | | NEPHROLOGY [place] | [address] [place] | | | | | [address] [place] | [address] [place], [place] | | | | | [address] [place], [place] | [address] | | | | | [address] | | | | | | [phone] | | | +--------+ + + + [...] [place] | | | | | | [address] | | | | | | | [...]
--- OUTSIDE RECORDS SUMMARY | ~2019-12-19 | XMS | Encounter Summary ---
Demographics + + + | Address | [address] [address] | | | [place] [address] | + + + | Home Phone | | + + + | Preferred Language | Unknown | + + + | Marital Status | Single | + + + | Mormonism Affiliation | 1077 | + + + | Race | Unknown | + + + | Ethnic Group | Unknown | + + + Author + + + | Author | [facility] | | | and [place] | + + + | Organization | [facility] | | | [...] Team Providers + +------+ + | Care Hospital Insurance Clerk Name | Role | Phone | [...] PHYSIATRY [address] | MD [address] | | | | | [address] | [place], [place] | | | | | [place], [place] | [address] | | | | | [address] | | | | | | [phone] | | | +--------+ + + + [...] [place] | | | | | | [address] | | | | | | | | +--------+---------+ + + + documented as of this encounter Visit Diagnoses Not on filedocumented in this encounter"
--- OUTSIDE RECORDS SUMMARY | ~2019-12-19 | XMS | Encounter Summary ---
Demographics + + + | Address | [address] [address] | | | [place] [address] | + + + | Home Phone | | + + + | Preferred Language | Unknown | + + + | Marital Status | Single | + + + | Protestant Affiliation | 1077 | + + + | Race | Unknown | + + + | Ethnic Group | Unknown | + + + Author + + + | Author | [facility] | | | and [place] | + + + | Organization | [facility] | | | and [...] Team Providers + +------+ + | Care Manufacturers Agent Name | Role | Phone | + [...] Provider Unknown | | | | | [address] | [phone] | | | | | [phone] | | | +--------+ + + + [...] [place] | | | | | | [address] | | | | | | | [...]
--- OUTSIDE RECORDS SUMMARY | ~2019-12-19 | XMS | Encounter Summary ---
Demographics + + + | Address | [address] [address] | | | [place] [address] | + + + | Home Phone | | + + + | Preferred Language | Unknown | + + + | Marital Status | Single | + + + | Jew Affiliation | 1077 | + + + [...] Team Providers + +------+ + | Care Mail Inserter Name | Role | Phone | + [...] 2019 | | [address] | Barrel Racer | (antinuclear | | | | [place] | | antibody); Pain in | | | | [address] | | joint, multiple | | | | [phone] | | sites | +--------+ + + [...] [place] | | | | | | [address] | | | | | | | [...] - 1.030 | REFERENCE | | | [place], | | | LAB | | | [...] REFERENCE | | | | performed at [facility];[address] | | LAB | | | | [place] | | [facility] | | | | [address];[place] [address] | | LABORATORY | | + + + + + + + + | Specimen | + + | Urine | + + + + + + + | Performing | Address | City/State/Zipcode | Phone Number | | Organization | | | | + + + + + | REFERENCE LAB | [address] [facility] | [place] | [phone] | | [facility] | Bl[address] | [address] | | | LABORATORY | | | | + + + + + | REFERENCE LAB | [address] [place] [address] | [place] | | | [facility] | Bl[address] | [address] | | | LABORATORY | | | [...] LAB | | | | performed at [facility];[address] | | [facility] | | | | [place] | | LABORATORY | | | | Blvd;[place] [address] | | | | | | | | | | + + + + + + + + | Specimen | + + | | + + + + + + + | Performing | Address | City/State/Zipcode | Phone Number | | Organization | | | | + + + + + | REFERENCE LAB | [address] [place] [address] | [place] | [phone] | | [facility] | Bl[address] | [address] | | | LABORATORY | | | | + + + + + | REFERENCE LAB | [address] [place] [address] | [place], [place] | | | [facility] | Blvd. | [address] | | | LABORATORY | | | [...] | | | urine | performed at [facility];[address] | | [facility] | | | | [facility] | | LABORATORY | | | | Blvd;[place] [address] | | | | | | | | | | + + + + + + + + | Specimen | + + | | + + + + + + + | Performing | Address | City/State/Zipcode | Phone Number | | Organization | | | | + + + + + | REFERENCE LAB | [address] [place] [address] | [place], [place] | [phone] | | [facility] | Blvd. | [address] | | | LABORATORY | | | | + + + + + | REFERENCE LAB | [address] [place] [address] | [place], [place] | | | [facility] | Blvd. | [address] | | | LABORATORY | | | [...] | | | RATIO,URINE | performed at [facility];[address] | | LAB | | | | [place] | | [facility] | | | | Blvd;[place] [address] | | LABORATORY | | + + + + + + + + | Specimen | + + | Urine | + + + + + + + | Performing | Address | City/State/Zipcode | Phone Number | | Organization | | | | + + + + + | REFERENCE LAB | [address] [place] [address] | [place], [place] | [phone] | | [facility] | Blvd. | [address] | | | LABORATORY | | | | + + + + + | REFERENCE LAB | [address] [place] [address] | [place], [place] | | | [facility] | Blvd. | [address] | | | LABORATORY | | | [...] REFERENCE | | | | performed at [facility];[address] | | LAB | | | | [place] | | [facility] | | | | Blvd;[place] [address] | | LABORATORY | | + + + + + + + + | Specimen | + + | Blood | + + + + + + + | Performing | Address | City/State/Zipcode | Phone Number | | Organization | | | | + + + + + | REFERENCE LAB | [address] [facility] | [place] | [phone] | | [facility] | Bl[address]. | [address] | | | LABORATORY | | | | + + + + + | REFERENCE LAB | [address] | [place] | | | [facility] | Blvd. | [address] | | | LABORATORY | | | [...] | | | Absolute | performed at [facility];[address] | K/uL | LAB | | | | [place] | | [facility] | | | | Blvd;[place] [address] | | LABORATORY | | + + + + + + + + | Specimen | + + | Blood | + + + + + + + | Performing | Address | City/State/Zipcode | Phone Number | | Organization | | | | + + + + + | REFERENCE LAB | [address] [facility] | [place], [place] | [phone] | | [facility] | Bl[address] | [address] | | | LABORATORY | | | | + + + + + | REFERENCE LAB | [address] [facility] | [place] | | | [facility] | Blvd. | [address] | | | LABORATORY | | | [...] | | | | | | MDRD IDSC traceable | | | | | | equation.Testing | | | | | | performed at [facility];[address] | | | | | | [facility] | | | | | | [facility];[place] [address] | | | | | | | | | | + + + + + + + + | Specimen | + + | Blood | + + + + + + + | Performing | Address | City/State/Zipcode | Phone Number | | Organization | | | | + + + + + | REFERENCE LAB | [address] [place] [address] | [place], [place] | [phone] | | [facility] | Blvd. | [address] | | | LABORATORY | | | | + + + + + | REFERENCE LAB | [address] [place] [address] | [place], [place] | | | [facility] | Blvd. | [address] | | | LABORATORY | | | [...] REFERENCE | | | | performed at [facility];[address] | | LAB | | | | [place] | | [facility] | | | | Blvd;[place] [address] | | LABORATORY | | + + + + + + + + | Specimen | + + | Blood | + + + + + + + | Performing | Address | City/State/Zipcode | Phone Number | | Organization | | | | + + + + + | REFERENCE LAB | [facility] | [place] | [phone] | | [facility] | Blvd. | [address] | | | LABORATORY | | | | + + + + + | REFERENCE LAB | [facility] | [place] | | | [facility] | Blvd. | [address] | | | LABORATORY | | | [...] REFERENCE | | | | performed at [facility];[address] | | LAB | | | | [place] | | [facility] | | | | Blvd;[place] [address] | | LABORATORY | | + + + + + + + + | Specimen | + + | Blood | + + + + + + + | Performing | Address | City/State/Zipcode | Phone Number | | Organization | | | | + + + + + | REFERENCE LAB | [address] [facility] | [place] | [phone] | | [facility] | Blvd. | [address] | | | LABORATORY | | | | + + + + + | REFERENCE LAB | [address] [facility] | [place] | | | [facility] | Blvd. | [address] | | | LABORATORY | | | [...] | | | | | performed at [facility], [address] | | | | | | [facility] | | | | | | [place] [address] | | | | + + + + + + + + | Specimen | + + | Blood | + + + + + + + | Performing | Address | City/State/Zipcode | Phone Number | | Organization | | | | + + + + + | REFERENCE LAB | [address] | [place] | [phone] | | [facility] | Blvd. | [address] | | | LABORATORY | | | | + + + + + | REFERENCE LAB | [address] [facility] | [place] | | | [facility] | Blvd. | [address] | | | LABORATORY | | | [...] [place] | | | | | | [address] | | | | + + + + + + + + | Specimen | + + | Blood | + + + + + + + | Performing | Address | City/State/Zipcode | Phone Number | | Organization | | | | + + + + + | REFERENCE LAB | [address] [place] [address] | [place], [place] | [phone] | | [facility] | Blvd. | [address] | | | LABORATORY | | | | + + + + + | REFERENCE LAB | [address] [place] [address] | [place] | | | [facility] | Blvd. | [address] | | | LABORATORY | | | [...] criterion | | | | | | ([employer] | | | | | [...] | | | | | validated by [employer] | | | | | | [employer] This | | | | | [...] non-orderable. | | | | | | [facility] offers [id number] | | | | | | dsDNA Curt painter | | | | | | IFA. For further | | | | | | information, please | | | | | | contact your local | | | | | | [facility] | | | | | | Hat Br[employer]her Machine.Testing | | | | | | performed at [employer] | | | | | | [employer], [address] | | | | | | [employer], [facility] | | | | | | [address] [place] [address] | | | | | | [phone]. | | | | + + + + + + + + | Specimen | + + | Blood | + + + + + + + | Performing | Address | City/State/Zipcode | Phone Number | | Organization | | | | + + + + + | REFERENCE LAB | [address] [facility] | [place] | [phone] | | [facility] | Bl[address] | [address] | | | LABORATORY | | | | + + + + + | REFERENCE LAB | [address] [facility] | [place], [place] | | | [facility] | Blvd. | [address] | | | LABORATORY | | | [...] | | | COMPLEMENT | performed at [facility];[address] | | LAB | | | | [place] | | [facility] | | | | Blvd;[place] [address] | | LABORATORY | | + + + + + + + + | Specimen | + + | Blood | + + + + + + + | Performing | Address | City/State/Zipcode | Phone Number | | Organization | | | | + + + + + | REFERENCE LAB | [address] [facility] | [place] | [phone] | | [facility] | Blvd. | [address] | | | LABORATORY | | | | + + + + + | REFERENCE LAB | [address] [facility] | [place] | | | [facility] | Blvd. | [address] | | | LABORATORY | | | [...] | | | Qual | performed at [facility], [address] | | LAB | | | | [address] [facility] | | [facility] | | | | [place] [address] | | LABORATORY | | + + [...] | | | | | with both NC-3 and | | | | | | [...] | | 3 Antibody | performed by [employer], | | LAB | | | | [address], | | [facility] | | | | [facility] [address] | | LABORATORY | | + + + + + + + + | Specimen | + + | Blood | + + + + + + + | Performing | Address | City/State/Zipcode | Phone Number | | Organization | | | | + + + + + | REFERENCE LAB | [address] [place] [address] | [place], [place] | [phone] | | [facility] | Blvd. | [address] | | | LABORATORY | | | | + + + + + | REFERENCE LAB | [address] [place] [address] | [place], [place] | | | [facility] | Blvd. | [address] | | | LABORATORY | | | | + + + + + documented in this encounter Visit Diagnoses + + | Diagnosis | + + | Positive NICKIE (antinuclear antibody) Other and unspecified nonspecific immunological | | findings | + + | Pain in joint, multiple sites | + + documented in this encounter"
--- OUTSIDE RECORDS SUMMARY | ~2019-12-19 | XMS | Encounter Summary ---
Demographics + + + | Address | [address] | | | [place] [address] | + + + | Home Phone | | + + + | Preferred Language | Unknown | + + + | Marital Status | Single | + + + | Hindu Affiliation | LDS | + + + | Race | White | + + + | Ethnic Group | Not or | + + + Author + + + | Author | [facility] | + + + | Organization | [facility] | + + + | Address | Unknown | + + + | Phone | Unavailable | + + + Support + + + + + | Name | Relationship | Address | Phone | + + + + + | Toby Latham | ANNA | [address] | | | | | [place] | | | | | [address] | | + + + + + Care Team Providers + +------+ + | Care Hospital Coordinator Name | Role | Phone | + +------+ + | Sarah Carroll MD | PCP | | + +------+ + Encounter Details +--------+ + + + + | Date | Type | Department | Care Team | Description | +--------+ + + + + | 07/01/ | Transcribe | [facility] | Transcribe | | | 2019 | Orders | [facility] [address] | Encounter, Provider, | | | | | [place] Mailcode: | [address] | | | | | [facility] | [place] [address] | | | | | Health and Healing, | | | | | | [address] | | | | | | [place], [place] | | | | | | [address] | | | | | | [phone] | | | +--------+ + + + [...] | | 2019 | Visit | | [address] | | | | | | [address] | | | | | | [place], [place] | | | | | | [address] | | | | | | [phone] | | | | | | | [...]
--- OUTSIDE RECORDS SUMMARY | ~2019-12-19 | XMS | Encounter Summary ---
Demographics + + + | Address | [address] [address] | | | [place] [address] | + + + | Home Phone [...] + + + | Author | [facility] | | | and [place] | + + + | Organization | [facility] | | [...] Team Providers + +------+ + | Care Rougher Operator Name | Role | Phone | [...] | | | | Peritoneal | | [address] Phone: | | | | | adhesion | | [phone] | | | | | Procedures | | Fax: | | | | | [place] | | [phone] | | | | | BOWEL | [...] [address] | [place] [address] | | | | | [place] | [phone] | | | | | [address] | | | | | | [phone] | Leyla Lepe, | | | | | | ENGINEER REMOTE CONTROL DIESEL [address] | | | | | | [place] | | | | | | [address] | | | | | | | | +--------+ + + + + Anesthesia Record + + + + + | Procedure Name | Responsible | Anesthesia Start | Anesthesia Stop Time | | | Anesthesiologist | Time | | + + + + + | LEFT LAPAROSCOPIC | Feliberto Beltran MD | 06/11/18 1312 | 06/11/18 4709 | | NEPHRECTOMY WITH | | | [...] +----+---+ + + | | 1 | Hope Hull | | | | 3 | 43-degrees [...] +----+---+ + + | | 1 | Hope [place] off | | | | 5 | [...] 06/12/18 0722 by | | cherelle | qeig-zpt-deplju catheter system; | Myla Vega RN | [...] | | | procedure documentation); Mask | ENGINEER REMOTE CONTROL DIESEL | ENGINEER REMOTE CONTROL DIESEL | | | Ventilation: EZ w/OA; Airway [...] | Forearm; 18 gauge; 06/16/18; 1237 | ENGINEER REMOTE CONTROL DIESEL | | +--------+ + + + | [...] [place] | | | | | | [address] | | | | | | | [...] 06/11/2018 13:40 Indication: necessitating | | | physician/ENGINEER REMOTE CONTROL DIESEL skill Preparation: chlorhexidine/isopropyl alcohol | | | [...] 1:55 PM PDT Intravenous Line | | Zsaxafgkc10/31/2018 13:40Indication: necessitating physician/ENGINEER REMOTE CONTROL DIESEL skillPreparation: | | chlorhexidine/isopropyl alcoholpatient was: under [...] | |Electronically Signed by: Leyla Lepe CRNA [facility] date/time: 05/14 13:55 | + + Anesthesia [...] Electronically Signed | | | by: Leyla eLpe CRNA [facility] | | | date/time: 06/11/2018 13:52 | | + + + + + | Procedure Note | + + | Leyla Lepe CRNA - 06/11/2018 1:52 PM PDT Arterial Line Ljshkcuwm26/31/2018 | | 13:30Indication: continuous blood pressure monitoringPrep [...] 1:51 PM PDT Anesthesia Airway | | Ivnaxzftx32/31/2018 13:24Preprocedure check: patient identified, oxygen, airway | [...]
--- OUTSIDE RECORDS SUMMARY | ~2019-12-19 | XMS | Encounter Summary ---
Demographics + + + | Address | [address] | | | [place] [address] | + + + | Home Phone [...] [place] | | | | | [address] | | + + + + + Care Team Providers + +------+ + | Care Ammunition Officer Name | Role | Phone | [...] | Encounter | [address] | ,[facility] [address] | | | | | [place], [place] | [address] | | | 07/14/ | | [address] | [place], [place] | | | 2018 | | [phone] | [address] | | | | | | [phone] | | | | | | | | | | | | Kath Silva MD | | | | | | [address] | | | | | | Nikki Robles [place], | | | | | | [place] [address] | | | | | | [phone] | | | | | | | | | | | | Bety Jameson MD | | | | | | [address] | | | | | | Nikki Robles [place], | | | | | | [place] [address] | | | | | | [phone] | | | | | | | [...] Jameson MD - 07/14/2019 8:27 AM PST [facility] Discharge Summary [...] due to recent polypectomy: Patient had resumed [facility] home warfarin following procedure, although INR was [...] go to get your blood ch ecked ([facility]). It was a pleasure taking care of you! Other Orders & Follow-up Plan OTHER DISCHARGE ORDERS & INSTRUCTIONS INR - External Order Standing Status: Future Expected By: 07/16/19 Standing Exp. Date: 08/13/20 AC clinic at [facility] to follow (patient established there) Follow Up: Future Appointments Provider Department Dept Phone Center 09/10/2019 1:20 PM Richard Harvey [facility] at [facility] [phone] Orthopedics Discharge Physical Exam: Last 24 hour [...] no c/c/e BETY JAMESON MD Pager - [phone] forming yardage control operator Division of Hospital Medicine I spent more than 35 minutes [id number] with the patient of which greater than [...] Kath Silva MD Division of Hospital Medicine [facility] Pager [phone] maAmberly jorge MD - 1 09/13/2018 3:08 [...] MS Fellow, Gastroenterology and Hepatology PGY-4 Pager [phone] GI Pager: [phone] (15-EMW) mador, Amberly Brink MD - 07/13/2019 6:54 [...] MD, MS Fellow, Gastroenterology and Hepatology Pager: [phone] signed by Amberly Morgan MD at 07/13/2019 6:54 AM PSTDuane Eisenberg MD - 07/12/2019 4:55 PM PSTBrief GI Note Unfortunately due to volume of urgent/emergent cases in [facility], unable to perform colonos copy today. Case [...] PM PST Pre Sedation Endoscopy Note: MR# [id number] Subjective: Aaron Latham is a 59 y.o. [...] Kath Silva MD Division of Hospital Medicine [facility] Pager [phone] I spent 30 minutes on the patient [...] Kath Silva MD Division of Hospital Medicine [facility] Pager [phone] Duane Altamirano MD - 07/11/2019 4:26 PM [...] with above. Duane Field Gastroenterology Fellow Pager: [phone] IE/S: Hgb 8.3 -> 8.0 -> 7.9 [...] the original. Pre Sedation Endoscopy Note: MR# [id number] Subjective: Aaron Latham is a 59 y.o. [...] | | 2019 | Visit | | [address] | | | | | | [address] | | | | | | [place], [place] | | | | | | [address] | | | | | | [phone] | | | | | | | [...] | | | LABORATORY | | | CAMEROONIAN | | | SERVICES, | | | [...] MDRD equation recommended by the National | [facility] | | Kidney Disease Education Program. Estimated [...] | + + + + + | [facility] | [address] | [place] [address] | | | SERVICES, CORE | [address] | | | + + + + + COLONOSCOPY (07/13/2019 12:54 PM PST) + + | Specimen | + + | | + + + + + | Narrative | Performed At | + + + | MRN: | [facility] | | [id number] Date: 07/13/2019Patient Name: Aaron Justin #: | ENDOSCOPY | | [id number] of : 1960SN: [id number] Type: | | | InpatientRoom: GI 3Procedure: ColonoscopyIndications: | | | Rectal bleeding; post polypectomy bleedProviders: | | | MILAD CAMPBELL MD (Doctor), CATARINA SOLIMAN RN | | | (Nurse), JAYANT KELLY (Benefits Processor), | | | AMBERLY MORGAN MD (Fellow)Referring [...] the procedure. | | | The Olympus [id number] Colonoscope #[id number] was | | | introduced through the [...] evaluated | | | using the BBPS (Potrero Bowel | | | Preparation Scale). The [...] of Addenda: 0Note Initiated On: 07/13/2019 12:54 [facility] Letter | | | to: SARAH GUTIERREZ [...] | [address] | [place] [address] | | | SERVICES, CORE | PARK [...] | | | LABORATORY | | | CAMEROONIAN | | | SERVICES, | | | [...] | + + + + + | [facility] | [address] | [place] [address] | | | [address] | PARK [...] | + + + + + | [facility] | [address] | [place] [address] | | | SERVICES, CORE | [address] [...] | | | LABORATORY | | | CAMEROONIAN | | | SERVICES, | | | [...] MDRD equation recommended by the National | [facility] | | Kidney Disease Education Program. Estimated [...] | [facility] | [address] | [place] [address] | | | SERVICES, CORE | PARK [...] | [address] | [place] [address] | | | SERVICES, | [address] [...] | [address] | [place] [address] | | | SERVICES, | [address] [...] | [facility] | [address] | [place] [address] | | | SERVICES, | [address] [...] | + + + + + | [facility] | [address] | [place] [address] | | | SERVICES, CORE | [address] [...] | [address] | [place] [address] | | | SERVICES, CORE | [address] [...] | [address] | [place] [address] | | | SERVICES, CORE | PARK [...] | | | LABORATORY | | | CAMEROONIAN | | | SERVICES, | | | [...] MDRD equation recommended by the National | [facility] | | Kidney Disease Education Program. Estimated [...] | + + + + + | [facility] | [address] | [place] [address] | | | SERVICES, CORE | [address] [...]
--- OUTSIDE RECORDS SUMMARY | ~2019-12-19 | XMS | Encounter Summary ---
Demographics + + + | Address | [address] [address] | | | [place] [address] | + + + | Home Phone | | + + + | Preferred Language | Unknown | + + + | Marital Status | Single | + + + | Scientology Affiliation | [id number] | + + + [...] | + + +---------+ + | Toby Ltaham | ECON | Unknown | | + + +---------+ + Care Team Providers + +------+ + | Care Coupon And Bond Collection Clerk Name | Role | Phone | + +------+ + | Sarah Carroll MD | PCP | | + +------+ + Encounter Details +--------+ + + + + | Date | Type | Department | Care Team | Description | +--------+ + + + + | 02/04/ | Orders Only | [facility] | Conversion | | | 2019 | | NEPHROLOGY [place] | Transaction, | | | | | [address] | Provider Unknown | | | | | [address] [place], [place] | [phone] | | | | | [address] | (Fax) | | | | | [phone] | | | +--------+ + + + [...] | | | | | [address] [place], [place] | | | | | | [address] | | | | | | | | +--------+---------+ + + + documented as of this encounter Procedures + +--------+ + + + | Procedure Name | Priori | Date/Time | Associated Diagnosis | Comments | | | ty | | | | + +--------+ + + + | BASIC METABOLIC | Routin | 02/04/2019 | | Results for this | | PANEL | e | 10:19 AM | | procedure are in the | | | | PDT | | results section. | + +--------+ + + + documented in this encounter Results Basic Metabolic Panel (02/04/2019 10:19 AM PDT) + + + + + + | Component | Value | Ref Range | Performed | Pathologist | | | | | At | Signature | + + + + + + | Glucose, | 128 (A) | 70 - 100 mg/dL | EXTERNAL | | | Fasting | | | LAB | | + + + + + + | BUN | 40 (A) | 6 - 23 mg/dL | EXTERNAL | | | | | | LAB | | + + + + + + | Creatinine | 2.35 (A) | 0.70 - 1.33 | EXTERNAL | | | | | mg/dL | LAB | | + + + + + + | BUN/Creatin | 17.0 (A) | 28.6 | EXTERNAL | | | ine Ratio | | | LAB | | + + + + + + | Calcium | 9.0 | 8.5 - 10.3 | EXTERNAL | | | | | mg/dL | LAB | | + + + + + + | Na | 139 | 132 - 143 | EXTERNAL | [...] + + + | Anion Gap | 19.5 | 7 - 21 mmol/L | EXTERNAL | | | | | | LAB | | + + + + + + | Estimated | 29 (A) | 60 - 140 mg/dL | [...]
--- OUTSIDE RECORDS SUMMARY | ~2019-12-19 | XMS | Encounter Summary ---
Demographics + + + | Address | [address] [address] | | | [place] [address] | + + + | Home Phone | | + + + | Preferred Language | Unknown | + + + | Marital Status | Single | + + + | Yazidism Affiliation | 1077 | + + + | Race | Unknown | + + + | Ethnic Group | Unknown | + + + Author + + + | Author | [facility] | | | and [place] | + + + | Organization | [facility] | | | [...] Team Providers + +------+ + | Care Silver Designer Name | Role | Phone | + +------+ + | Sarah Carroll MD | PCP | | + +------+ + Encounter Details +--------+ + + + + | Date | Type | Department | Care Team | Description | +--------+ + + + + | 03/05/ | Orders Only | [facility] | Provider, | Mixed | | 2019 | | SYSTEM GENERIC OP | [address] | hyperlipidemia; | | | | CONVERSION [address] | [address] | Essential (primary) | | | | [address] [place], [place] | [place] [address] | hypertension; | | | | [address] | | Chronic kidney | | | | [phone] | | disease, stage III | | [...] | | | | | [address] [place] | | | | | | [address] | | | | | | | [...] | | | | | | (moderate) ([facility]) | | | | | | Chronic kidney | | | | | | disease, stage III | | | | | | (moderate) ([facility]) | | + +------+--------+ + + | CBC with | Lab | Routin | Chronic kidney | Expected: | | Differential | | e | disease, stage III | 02/23/2019, Expires: | | | | | (moderate) ([facility]) | 02/10/2020 | | | | | [...] Expires: | | | | | (moderate) ([facility]) | 02/10/2020 | | | | | [...] Expires: | | | | | (moderate) ([facility]) | 02/10/2020 | | | | | [...] Expires: | | | | | (moderate) ([facility]) | 02/10/2020 | | | | | [...] Expires: | | | | | (moderate) ([facility]) | 02/10/2020 | | | | | [...] Expires: | | | | | (moderate) ([facility]) | 02/10/2020 | | | | | [...]
--- OUTSIDE RECORDS SUMMARY | ~2019-12-19 | XMS | Encounter Summary ---
Demographics + + + | Address | [address] [address] | | | [place] [address] | + + + | Home Phone | | + + + | Preferred Language | Unknown | + + + | Marital Status | Single | + + + | Mandaen Affiliation | 1077 | + + + | Race | Unknown | + + + | Ethnic Group | Unknown | + + + Author + + + | Author | [facility] | | | and [place] | + + + | Organization | [facility] | | | [...] Team Providers + +------+ + | Care Digital Strategist Senior Manager Name | Role | Phone | [...] PHYSIATRY [address] | MD [address] | | | | | [address] | [place], [place] | | | | | [place], [place] | [address] | | | | | [address] | | | | | | [phone] | | | +--------+ + + + [...] | 2020 | Visit | | [address] | | | | | | [place] | | | | | | [id number] | | | | | | | | +--------+---------+ + + + documented as of this encounter Visit Diagnoses Not on filedocumented in this encounter"
--- OUTSIDE RECORDS SUMMARY | ~2019-12-19 | XMS | Encounter Summary ---
Demographics + + + | Address | [address] [address] | | | [place] [address] | + + + | Home Phone | | + + + | Preferred Language | Unknown | + + + | Marital Status | Single | + + + | Sabianist Affiliation | 1077 | + + + | Race | Unknown | + + + | Ethnic Group | Unknown | + + + Author + + + | Author | [facility] | | | and [place] | + + + | Organization | [facility] | | | [...] Team Providers + +------+ + | Care Packaging Clerk Name | Role | Phone | [...] + + | 06/09/ | Telephone | [facility] | Callum, | Alvaro (Appointment | | 2018 | | NEPHROLOGY [place] | Gabo Jay | reminder call) | | | | [address] | Acoustical Tile Patternmaker | | | | | [address] [place], [place] | | | | | | [address] | | | | | | [phone] | | | +--------+ + + + [...] [place] | | | | | | [address] | | | | | | | | +--------+---------+ + + + documented as of this encounter Visit Diagnoses Not on filedocumented in this encounter"
--- OUTSIDE RECORDS SUMMARY | ~2019-12-19 | XMS | Encounter Summary ---
Demographics + + + | Address | [address] [address] | | | [place] [address] | + + + | Home Phone [...] + + + | Author | [facility] | | | and [place] | + + + | Organization | [facility] | | | [...] Providers + +------+ + | Care Pipe Organ Mechanic Name | Role | Phone | [...] | | | | hy Lumbar | [address] | [address] [place], | | | | | radiculopath | [place], | [place] [address] | | | | | y Leg pain, | [place] [address] | Phone: | | | | | diffuse, | Phone: | [phone] | | | | | left | [phone] | Fax: | | | | | Paresthesia | Fax: | [phone] | | | | | of left leg | [phone] | | | | | | CRP [...] | | | | hy Lumbar | [address] | [address] | | | | | radiculopath | [place], | [address] | | | | | y Leg pain, | [place] [address] | [place], | | | | | diffuse, | Phone: | [place] [address] | | | | | left | [phone] | Phone: | | | | | Paresthesia | Fax: | [phone] | | | | | of left leg | [phone] | Fax: | | | | | CRP | | [phone] | | | | | elevated Ds [...] | | | | hy CRP | [address] | [place] | | | | | elevated Ds | [place], | PLACE | | | | | DNA | [place] [address] | [place], [place] | | | | | antibody | Phone: | [phone] | | | | | positive | [phone] | Phone: | | | | | Positive NICKIE | Fax: | [phone] | | | | | | [phone] | Fax: | | | | | (antinuclear | | [phone] | | | | | antibody) | [...] + + | 03/10/ | Office | [facility] | Riccardo Malhotra, | Peripheral | | 2019 | Visit | PHYSIATRY [address] | [address] | polyneuropathy | | | | [address] | [place] | (Primary Dx); Lumbar | | | | [place] | [address] | radiculopathy; Leg | | | | [address] | | pain, diffuse, left; | | | | [phone] | | Paresthesia of left | | [...] fro m the original. Riccardo Malhotra MD [address] [place] [address], [address] [place] [address] FAX: PHYSICAL MEDICINE AND REHABILITATION [...] has no apparent deficits with short or intermediate memory. The cranial nerves appear grossly intact. [...] neurology, a referral will be sent to [facility], based on his NCS results. We [...] rheumatology referral has been sent t o [facility] under the classification of urgent. We [...] work toward weight loss. We discussed that [facility] indicates that weight loss is the most powerful treatment for back pain. 15. Today we discussed the possibility of going to see a neurosurgeon to look more into his lumbar radiculopathy. A referral has been sent to [facility] for a neurosurgeon consultation to jazmine martin at Aaron Latham's lower back to evaluate and offer advise as to how to proceed [facility] care. 15. Aaron Latham is advised [...] [place] | | | | | | [address] | | | | | | | [...]
--- OUTSIDE RECORDS SUMMARY | ~2019-12-19 | XMS | Encounter Summary ---
Demographics + + + | Address | [address] [address] | | | [place] [address] | + + + | Home Phone [...] Team Providers + +------+ + | Care Library Circulation Department Chief Name | Role | Phone | + [...] Closed | | Urology | Diagnoses | Glen | Tay | | | | | Chronic | Sarah Gallegos MD | MD Patrice | | | | | kidney | [address] | [address] | | | | | disease, | [address] | [address] | | | | | stage 3 | [place], | [place] | | | | | (HCC) Lap | [place] [address] | [address] Phone: | | | | | nephrec | Phone: | [phone] | | | | | 06/11, BMP | [phone] | Fax: | | | | | prior | Fax: | [phone] | | | | | Procedures | [phone] | | | | | | ME POST-OP | | | | | | | FOLLOW-UP | | | | | | | VISIT CC | | | | | | | POST-OP | | | +--------+--------+ + + + + Encounter Details +--------+---------+ + + + | Date | Type | Department | Care Team | Description | +--------+---------+ + + + | 07/17/ | Office | [facility] | Patrice Cross MD | Angiomyolipoma | | 2018 | Visit | [address] | [address] | (Primary Dx) | | | | [address] | [address] [place] | | | | | [place] | [address] | | | | | [address] | | | | | | [phone] | | | +--------+---------+ + + + [...] + + + | Blood Pressure | 128/76 | 07/17/2018 10:44 AM | | | | | PST [...] + + + + | Weight | 151 kg (333 lb) | 07/17/2018 10:44 AM | | | | | PST | | + + + + + | Height | 180.3 cm (5' 11") | 07/17/2018 10:44 AM | | | | | PST | | + + + + + | Body Mass Index | 46.44 | 07/17/2018 10:44 AM | | | | | PST [...] documented as of this encounter Progress Notes Rosy Wilcox CC CMA - 07/17/2018 10:20 AM PSTPatient ID: Aaron Latham is a 58 y. o. male with a chief complaint of No chief complaint on file. . Review of Systems Constitutional: Negative. HENT: Negative. Eyes: Negative. Respiratory: Negative. Cardiovascular: Negative. Gastrointestinal: Negative. Endocrine: Negative. Genitourinary: Negative. Musculoskeletal: Negative. Skin: Negative. Allergic/Immunologic: Negative. Neurological: Negative. Hematological: Negative. Psychiatric/Behavioral: Negative. Patrice Ag MD - 07/17/2018 10:20 AM PST [facility] OFFICE NOTE Primary Care Physician: Sarah Carroll PATIENT NAME: Aaron Latham : 1960 TODAY'S DATE: 07/17/2018 CC: Renal mass History OF PRESENT ILLNESS: Aaron Latham is a 58 y.o. male with a right renal mass, status post nephrectomy on , here today for follow-up and review of pathology report. Post op he was slow to mo bilize, and then went to rehab. When he got out he was profoundly dehydrated and admitted I [facility] in [place]. Pathology report: FINAL DIAGNOSIS: A. Lymph nodes, hilar, dissection: No lymph nodes are recovered (all tissue processed and examined microscopi yan). B. Left kidney, nephrectomy: Multiple angiomyolipomas: Angiomyolipoma, 3.8 cm in greatest dimension, posterior interpolar reg ion. Angiomyolipoma, 3.1 cm in greatest dimension, upper pole. Cystic angiomyolipoma, 1.6 cm in greatest dimension, lower pole. All margins of resection are free of involvement. Non-neoplastic kidney with moderate arteriosclerosis, and approximately 10 % tubular atrophy and interstitial fibrosis. BMP on 07/11/18 is WNL except: Creatinine: 1.85 GFR: 38 Hemoglobin: 10.4 PAST MEDICAL HISTORY Past Medical History: Diagnosis Date Acid reflux disease OCCASIONALLY Anemia on iron Atrial fibrillation (HCC) SEES Ileana ARREOLA CHF (congestive heart failure) (HCC) Colon cancer (HCC) 08/16/2017 Cor pulmonale, chronic (HCC) Depression no meds Dizzy spells WHEN HE WAS ON COUMADIN. Hyperlipidemia Hypertension Metabolic syndrome Renal mass, left 05/2018 Sleep apnea C-PAP Umbilical hernia repaired PAST SURGICAL HISTORY Past Surgical History: Procedure Laterality Date ANGIOGRAM 01/2017 HEART CATH CARPAL TUNNEL RELEASE Right 02/2018 and ulna surgery rt elbow COLECTOMY N/A 08/16/2017 Procedure: RESECTION BOWEL LOW ANTERIOR, FLEXIBLE SIGMOIDOSCOPY; Surgeon: Mehul Bowles MD; Location: [facility] MA[facility] OR COLONOSCOPY 05/22/2017 FINGER SURGERY Right 1974 AMPUTATION 5th finger TONSILLECTOMY 1969 TOTAL NEPHRECTOMY Left 06/11/2018 Procedure: LEFT LAPAROSCOPIC NEPHRECTOMY WITH NODE DISSECTION AND LAPAROSCOPIC LYSIS OF AD HESIONS; Surgeon: Patrice Cross MD; Location: [facility] MAIN OR MEDICATIONS Current Outpatient Prescriptions Medication Sig Dispense Refill acetaminophen (TYLENOL) 500 mg tablet Take 500 mg by mouth every 6 hours as needed for Pain. atorvaSTATin (LIPITOR) 80 MG tablet Take 80 [...] Daily. magnesium oxide (MAG-OX) 400 mg tablet Take [...] Daily. warfarin (COUMADIN) 5 mg tablet Take 10 mg by mouth Daily. No current facility-administered medications for this visit. ALLERGIES No Known Allergies ROS Review of Systems PHYSICAL EXAM BP 128/76 | Ht 1.803 m (5' 11") | Wt (!) 151 kg (333 lb) | BMI 46.44 kg/m Physical Exam Constitutional: He appears well-developed and well-nourished. No distress. Pulmonary/Chest: No respiratory distress. Abdominal: Soft. He exhibits no distension. Incisions are clean, dry, intact with expected post operative change, no evidence of fascia l defect or hernia, no erythema or calor Diagnostic Studies: Bladder Ultrasound UA Results of last 48 hours No results found for the last 48 hours. Laboratory studies and imaging were personally reviewed by me. IMPRESSION: 1. Left 2.5 cm. solid renal mass now enlarging to 4cm over the past year now with many sync hronous lesions up to 3cm, status post nephrectomy on 06/11/18 found to be angiomyolipomas 2. a fib and is on coumadin 3. Personal history of colon cancer 4. Obesity with BMI of 46 PLAN / RECOMMENDATIONS: 1. Discussed that these are benign tumors, biggest risk is bleeding with these and are at l ow risk for recurrence, no adjuvant therapy needed 2. Would rec repeat CT in 1 year with his PCP for surveillance of his R kidney, non con 3. Establish with nephrology in the interim Electronically Signed by: Patrice Cross MD 07/17/2018 at 10:53 CC: Sarah Gallegos MD [address] [place] [address] documented in this encou nter Plan of Treatment +--------+---------+ + + + | Date | Type | Specialty | Care Team | Description | +--------+---------+ + + + | 03/17/ Office | Cardiology | Lorraine Clifton DO | | | 2020 | Visit | | [address] | | | | | | [address] [place] | | | | | | [address] | | | | | | | | +--------+---------+ + + + documented as of this encounter Visit Diagnoses + + | Diagnosis | + + | 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
--- OUTSIDE RECORDS SUMMARY | ~2019-12-19 | XMS | Encounter Summary ---
Demographics + + + | Address | [address] [address] | | | [place] [address] | + + + | Home Phone [...] Team Providers + +------+ + | Care Weatherization Coordinator Name | Role | Phone | + +------+ + | Sarah Carroll MD | PCP | | + +------+ + Encounter Details +--------+ + + + + | Date | Type | Department | Care Team | Description | +--------+ + + + + | 03/05/ | Orders Only | [facility] | Provider, | Mixed | | 2019 | | SYSTEM GENERIC OP | [address] | hyperlipidemia; | | | | CONVERSION [address] | Essential (primary) | | | | [address] [place], [place] | [place] [address] | hypertension; | | | | [address] | | Chronic kidney | | | | [phone] | | disease, stage III | | [...] | | | | | [address] [place] | | | | | | [address] | | | | | | | [...] | | | | | | (moderate) ([facility]) | | | | | | Chronic kidney | | | | | | disease, stage III | | | | | | (moderate) ([facility]) | | + +------+--------+ + + | CBC with | Lab | Routin | Chronic kidney | Expected: | | Differential | | e | disease, stage III | 02/23/2019, Expires: | | | | | (moderate) ([facility]) | 02/10/2020 | | | | | [...] Expires: | | | | | (moderate) ([facility]) | 02/10/2020 | | | | | [...] Expires: | | | | | (moderate) ([facility]) | 02/10/2020 | | | | | [...] Expires: | | | | | (moderate) ([facility]) | 02/10/2020 | | | | | [...] Expires: | | | | | (moderate) ([facility]) | 02/10/2020 | | | | | [...] Expires: | | | | | (moderate) ([facility]) | 02/10/2020 | | | | | [...]
--- OUTSIDE RECORDS SUMMARY | ~2019-12-19 | XMS | Encounter Summary ---
Demographics + + + | Address | [address] | | | [place] [address] | + + + | Home Phone | | + + + | Preferred Language | Unknown | + + + | Marital Status | Single | + + + | Zoroastrian Affiliation | LDS | + + + [...] [place] | | | | | [address] | | + + + + + Care Team Providers + +------+ + | Care Muck Farmer Name | Role | Phone | + +------+ + | Sarah Carroll MD | PCP | | + +------+ + Encounter Details +--------+ + + + + | Date | Type | Department | Care Team | Description | +--------+ + + + + | 04/14/ | Transcribe | [facility] | Transcribe | | | 2019 | Orders | [facility] [address] | Encounter, Provider, | | | | | Nima Grijalva Mailcode: | [address] | | | | | [facility] | [place] [address] | | | | | Health and Healing, | | | | | | Building [address] | | | | | | [place], [place] | | | | | | [address] | | | | | | [phone] | | | +--------+ + + + [...] | | 2019 | Visit | | [address] | | | | | | [address] | | | | | | [place], [place] | | | | | | [address] | | | | | | [phone] | | | | | | | | +--------+---------+ + + + documented as of this encounter Results COLONOSCOPY (07/01/2019 10:08 AM PST) + + | Specimen | + + | | + + + + + | Narrative | Performed At | + + + | MRN: | [facility] | | [id number] Date: 07/01/2019Patient Name: Aaron Justin #: | ENDOSCOPY | | [id number] of : 1960SN: [id number] Type: | | | AmbulatoryRoom: Endo 5Procedure: | | | ColonoscopyIndications: Therapeutic procedure for known | | | colon polypPatient Profile: This is a 59 year old male. Refer to | | | note in patient chart for | | | documentation of history and physical.Providers: WILLA | | | MD PEDRO (Doctor), CATARINA SOLIMAN RN | | | (Nurse), NGHIA YBARRA (Park Activities Coordinator)Referring MD: WILLA | | | PEDRO MDRequesting [...] the procedure. The Olympus | | | [id number] Colonoscope #[id number] was introduced | | | through the [...] | | any questions, please contact the tongue presser. | | | - Clear liquid diet [...]
--- OUTSIDE RECORDS SUMMARY | ~2019-12-19 | XMS | Encounter Summary ---
Demographics + + + | Address | [address] [address] | | | [place] [address] | + + + | Home Phone | | + + + | Preferred Language | Unknown | + + + | Marital Status | Single | + + + | Zoroastrianism Affiliation | 1077 | + + + [...] Team Providers + +------+ + | Care Interpreter For The Deaf Name | Role | Phone | + +------+ + | Sarah Carroll MD | PCP | | + +------+ + Encounter Details +--------+ + + + + | Date | Type | Department | Care Team | Description | +--------+ + + + + | 06/06/ | Telephone | [facility] | Patrice Cross MD | | | 2017 | | WILL[address] | [address] | | | | | [address] | [address] | | | | | [place], [place] | [address] | | | | | [address] | | | | | | [phone] | | | +--------+ + + + [...] | | | | | [place] | | | | | | [address] | | | | | | | | +--------+---------+ + + + documented as of this encounter Visit Diagnoses Not on filedocumented in this encounter"
--- OUTSIDE RECORDS SUMMARY | ~2019-12-19 | XMS | Encounter Summary ---
Demographics + + + | Address | [address] [address] | | | [place] [address] | + + + | Home Phone [...] Providers + +------+ + | Care Director Of Retail Analytics Name | Role | Phone | + +------+ + | Sarah Carroll MD | PCP | | + +------+ + Encounter Details +--------+ + + + + | Date | Type | Department | Care Team | Description | +--------+ + + + + | 05/21/ | Orders Only | [facility] | Patrice Cross MD | Renal mass (Primary | | 2018 | | [address] | [address] | Dx); Pre-operative | | | | [address] | [address] | cardiovascular | | | | [place] | [address] | examination; | | | | [address] | | Pre-operative | | | | [phone] | | laboratory | | | | [...] | | | | | [place] | | | | | | [address] | | | | | | | [...]
--- OUTSIDE RECORDS SUMMARY | ~2019-12-19 | XMS | Encounter Summary ---
Demographics + + + | Address | [address] [address] | | | [place] [address] | + + + | Home Phone | | + + + | Preferred Language | Unknown | + + + | Marital Status | Single | + + + | Holiness Affiliation | 1077 | + + + [...] Team Providers + +------+ + | Care Sewer Bricklayer Name | Role | Phone | + [...] | Services | Therapy | Spinal | [facility] | HOSPITAL | | | Required | | stenosis of | [place] | PHYSICAL | | | | | lumbar | [address] | THERAPY [address] | | | | | region | [address] | [place] | | | | | without | [place] | [place], [place] | | | | | neurogenic | [place], [place] | [address] | | | | | claudication | [address] | Phone: | | | | | Lumbar | Phone: | [phone] | | | | | herniated | [phone] | Fax: | | | | | disc Lumbar | Fax: | [phone] | | | | | | [phone] | | | | | | radiculopath [...] | | | | | lumbar | [address] | [address] | | | | | region with | [place], | [place], | | | | | [place]genic | [place] [address] | [place] [address] | | | | | claudication | Phone: | Phone: | | | | | Lumbar | [phone] | [phone] | | | | | radiculopath | Fax: | Fax: | | | | | y Bilateral | [phone] | [phone] | | | | | foot-drop | | | + + + + + + + Encounter Details +--------+---------+ + + + | Date | Type | Department | Care Team | Description | +--------+---------+ + + + | 10/12/ | Office | [facility] | Cordell Pedraza | Spinal stenosis of | | 2019 | Visit | NEUROSURGERY [address] | [address] [place] [address] | lumbar region | | | | [address] | [address] | without neurogenic | | | | [place], [place] | [place] | claudication | | | | [address] | [address] | (Primary Dx); Lumbar | | | | [phone] | | herniated disc; | | | [...] program. 2. Proceed with follow-up appointment at [facility] spine clinic. Please have records to our cl inic sent following the appointment. 3. Follow-up appointment in approximately 6 months documented in this encounter Progress Notes Cordell Pedraaz MD - 10/13/2019 12:45 PM PST Cordell Pedraza MD [address] [facility] [address] [place] [address] FAX: [phone] NEUROSURGERY HISTORY AND PHYSICAL EXAMINATION CHIEF COMPLAINT: [...] for evaluation at the spine clinic at [facility] in May 2019 and has [...] FLEXIBLE SIGMOIDOSCOPY; Surgeon: Mehul Bowles MD; Location: [facility] MAIN OR COLONOSCOPY 05/22/2017 COLONOSCOPY 07/01/2019 Dr Gilbert, [facility]: Large 3 cm flat ascending [...] AD HESIONS; Surgeon: Patrice Cross MD; Location: [facility] MAIN OR Unlisted Procedure Arthroscopy CURRENT [...] no apparent deficits with short or terminal press operator memory. CRANIAL NERVES: II: Acuity is intact. [...] Intrinsics 3 5 Ulnar Intrinsics 2-3 5 Pathology Supervisor Strength 5 5 Hip Flexion 4 4 [...] spent over 45 minutes with him in [facility] office today greater than 50% which involved [...] arrange closer to his h ome in [place]. Activity precautions, exercises and signs and symptoms to watch for have been fully discussed. He will notify our office if any significant changes occur. He has not yet had his follow-up appointment at [facility] spine clinic and is going to try to sc hedule this in the near future. I would like to see him back in approximately 6 months for follow-up or earlier if any significant changes occur. ELECTRONICALLY SIGNED BY: Codrell Pedraza MD, 10/13/2019 2:21 PM documented in [...] [place] | | | | | | [address] | | | | | | | [...]
--- OUTSIDE RECORDS SUMMARY | ~2019-12-19 | XMS | Encounter Summary ---
Demographics + + + | Address | [address] | | | [place] [address] | + + + | Home Phone [...] [place] | | | | | [address] | | + + + + + Care Team Providers + +------+ + | Care Excel Analyst Name | Role | Phone | [...] Rd | | | | | | [place], [place] | | | | | | [address] | | | | | | [phone] | | | | | | | | +--------+---------+ + + + documented as of this encounter Visit Diagnoses Not on filedocumented in this encounter"
--- OUTSIDE RECORDS SUMMARY | ~2019-12-19 | XMS | Encounter Summary ---
Demographics + + + | Address | [address] [address] | | | [place] [address] | + + + | Home Phone [...] Team Providers + +------+ + | Care Electrical Project Manager Name | Role | Phone [...] + + | 12/10/ | Documentati | [facility] | Nolen, | Results (12/10/19) | | 2020 | on | NEPHROLOGY LETICIA | [facility] | | | | | [address] | Highway Engineering Technician | | | | | [address] [place], [place] | | | | | | [address] | | | | | | [phone] | | | +--------+ + + + [...] | | | | | [place] | | | | | | [address] | | | | | | | [...]
--- OUTSIDE RECORDS SUMMARY | ~2019-12-19 | XMS | Encounter Summary ---
Demographics + + + | Address | [address] [address] | | | [place] [address] | + + + | Home Phone [...] Team Providers + +------+ + | Care Welder Setter Electron Beam Machine Name | Role | Phone | + [...] | | | | | lumbar | [address] | [address] | | | | | region with | [place], | [place], | | | | | [place]genic | [place] [address] | [place] [address] | | | | | claudication | Phone: | Phone: | | | | | Lumbar | [phone] | [phone] | | | | | radiculopath | Fax: | Fax: | | | | | y Bilateral | [phone] | [phone] | | | | | foot-drop | [...] PHYSIATRY [address] | MD [address] | | | | | [address] | [place], [place] | | | | | [place], [place] | [address] | | | | | [address] | | | | | | [phone] | | | +--------+ + + + [...] [place] | | | | | | [address] | | | | | | | [...]
--- OUTSIDE RECORDS SUMMARY | ~2019-12-19 | XMS | Encounter Summary ---
Demographics + + + | Address | [address] | | | [place] [address] | + + + | Home Phone | | + + + | Preferred Language | Unknown | + + + | Marital Status | Single | + + + | Christian Affiliation | LDS | + + + [...] [place] | | | | | [address] | | + + + + + Care Team Providers + +------+ + | Care Dental Floss Packer Name | Role | Phone | + +------+ + PCP | Unavailable | + +------+ + Encounter Details +--------+ + + + + | Date | Type | Department | Care Team | Description | +--------+ + + + + | 01/14/ | Abstract | [facility] | Clinic, Surgery | | | 2019 | | [place] [facility] [address] | | | | | | [address] | | | | | | Mailcode: [place] | | | | | | [facility] and | | | | | | Healing, Building [address] | | | | | | [facility] [place] | | | | | | [address] | | | | | | [phone] | | | +--------+ + + + [...] | | 2019 | Visit | | [address] | | | | | | [address] | | | | | | [place], [place] | | | | | | [address] | | | | | | [phone] | | | | | | | | +--------+---------+ + + + documented as of this encounter Visit Diagnoses Not on filedocumented in this encounter"
--- OUTSIDE RECORDS SUMMARY | ~2019-12-19 | XMS | Encounter Summary ---
Demographics + + + | Address | [address] | | | [place] [address] | + + + | Home Phone [...] [place] | | | | | [address] | | + + + + + Care Team Providers + +------+ + | Care Drafter Electromechanical Name | Role | Phone | + [...] | villous | [address] | Camp | | | | | adenoma | [address] | [address] | | | | | Procedures | Rd | floor | | | | | CONSULT TO | [place], [place] | [place], [place] | | | | | GI PROCEDURE | [address] | [address] | | | | | UNIT: | Phone: | Phone: | | | | | COLONOSCOPY | [phone] | [phone] | | | | | | Fax: | Fax: | | | | | | [phone] | [phone] | +--------+--------+ + + + + Encounter Details +--------+ + + + + | Date | Type | Department | Care Team | Description | +--------+ + + + + | 04/14/ | Provider Relations Specialist | [facility] | [place], | Polyp of colon, | | 2018 | | [facility] [address] | [address] | villous adenoma | | | | Herring Valentine Mailcode: | [address] | (Primary Dx) | | | | [facility] for | [place], [place] | | | | | Health and Healing, | [address] | | | | | Building [address] | [phone] | | | | | [place], [place] | | | | | | [address] | | | | | | [phone] | | | +--------+ + + + [...] Rd | | | | | | [place], [place] | | | | | | [address] | | | | | | [phone] | | | | | | | | +--------+---------+ + + + documented as of this encounter Visit Diagnoses + + | Diagnosis | + + | Polyp of colon, villous adenoma - Primary Benign neoplasm of colon | + + documented in this encounter"
--- OUTSIDE RECORDS SUMMARY | ~2019-12-19 | XMS | Clinical Summary ---
Demographics + + + | Address | [address] [address] | | | [place] [address] | + + + | Home Phone | | + + + | Preferred Language | Unknown | + + + | Marital Status | Single | + + + | Restorationism Affiliation | 1077 | + + + | Race | Unknown | + + + | Ethnic Group | Unknown | + + + Author + + + | Author | [facility] (Historical as of | | | 03-28-19) | + + + | Organization | [facility] (Historical as of | | | 03-28-19) [...] [place], | | | | | [place] [address] | | + + + + + Care Team Providers + +------+ + | Care Ranch Helper Name | Role | Phone | [...] +------+-------+ + | MEDICAID | [place]ER | [id number] | | | [address] | | | [place] | | | | [place] | | | [place] | | | | [address] | | | 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
--- OUTSIDE RECORDS SUMMARY | ~2019-12-19 | XMS | Encounter Summary ---
Demographics + + + | Address | [address] [address] | | | [place] [address] | + + + | Home Phone [...] Team Providers + +------+ + | Care Radio Operator Ground Name | Role | Phone | + [...] PHYSIATRY [address] | MD [address] | | | | | [address] | [place], [place] | | | | | [place], [place] | [address] | | | | | [address] | | | | | | [phone] | | | +--------+ + + + [...] [place] | | | | | | [address] | | | | | | | | +--------+---------+ + + + documented as of this encounter Visit Diagnoses Not on filedocumented in this encounter"
--- OUTSIDE RECORDS SUMMARY | ~2019-12-19 | XMS | Encounter Summary ---
Demographics + + + | Address | [address] | | | [place] [address] | + + + | Home Phone | | + + + | Preferred Language | Unknown | + + + | Marital Status | Single | + + + | Protestant Affiliation | LDS | + + + [...] [address] | | | | | [address] | | + + + + + Care Team Providers + +------+ + | Care Hydro Plant Technician Name | Role | Phone | [...] + + | 04/14/ | Anesthesia | [facility] | Paddy Pearson, | | | 2019 | Event | [facility] [address] | DO [address] | | | | | [place] Mailcode: | [address] | | | | | [address] for | [place], [place] | | | | | Health and Healing, | [address] | | | | | [facility] 2 | [phone] | | | | | [place], [place] | | | | | | [address] | | | | | | [phone] | | | +--------+ + + + [...] + + + | Periph | Paddy eParson; Right; Hand; 22 | 04/14/19 [address] | | | | | | [place], [place] | | | | | | [address] | | | | | | [phone] | | | | | | | [...]
--- OUTSIDE RECORDS SUMMARY | ~2019-12-19 | XMS | Encounter Summary ---
Demographics + + + | Address | [address] | | | [place] [address] | + + + | Home Phone [...] [place] | | | | | [address] | | + + + + + Care Team Providers + +------+ + | Care Pattern Filer Name | Role | Phone | + [...] | unspecified | [address] | [place] | | | | | part of | [address] | Pavilion, [address]th | | | | | colon, | Rd | floor | | | | | unspecified | [place], [place] | [place], [place] | | | | | type | [address] | [address] | | | | | Procedures | Phone: | Phone: | | | | | CONSULT TO | [phone] | [phone] | | | | | GI PROCEDURE | Fax: | Fax: | | | | | UNIT: | [phone] | [phone] | | | | | COLONOSCOPY | | | | | | | Priority 2: | | | | | | | 3-4mo | | | + +--------+ + + + + Encounter Details +--------+ + + + + | Date | Type | Department | Care Team | Description | +--------+ + + + + | 07/01/ | Irish Moss Gatherer | Digestive Health | [place], | Polyp of colon, | | 2018 | | [address] [address] [address] | MD [address] | unspecified part of | | | | [address] | [address] | colon, unspecified | | | | Mailcode: Center | [place], [place] | type (Primary Dx) | | | | for Health and | [address] | | | | | [facility], [facility] 2 | [phone] | | | | | [facility] [place] | | | | | | [address] | | | | | | [phone] | | | +--------+ + + + [...] Rd | | | | | | [place], [place] | | | | | | [address] | | | | | | [phone] | | | | | | | | +--------+---------+ + + + documented as of this encounter Visit Diagnoses + + | Diagnosis | + + | Polyp of colon, unspecified part of colon, unspecified type - Primary | + + documented in this encounter"
--- OUTSIDE RECORDS SUMMARY | ~2019-12-19 | XMS | Encounter Summary ---
Demographics + + + | Address | [address] [address] | | | [place] [address] | + + + | Home Phone [...] + | Author | [facility] | | | and [place] | + + + | Organization | [facility] | | | and [...] Providers + +------+ + | Care Manager Customer Name | Role | Phone | + [...] | Services | | CRP | Riccardo Mcigll MD | | | | Required | | elevated Ds | [address] | | | | | | DNA | [address] | | | | | | antibody | [place], | | | | | | positive | [place] [address] | | | | | | Peripheral | Phone: | | | | | | polyneuropat | [phone] | | | | | | hy Numbness | Fax: | | | | | | of both | [phone] | | | | | | lower [...] PHYSIATRY [address] | MD [address] | | | | | [address] | [place], [place] | | | | | [place], [place] | [address] | | | | | [address] | | | | | | [phone] | | | +--------+ + + + [...] [place] | | | | | | [address] | | | | | | | [...]
--- OUTSIDE RECORDS SUMMARY | ~2019-12-19 | XMS | Encounter Summary ---
Demographics + + + | Address | [address] [address] | | | [place] [address] | + + + | Home Phone | | + + + | Preferred Language | Unknown | + + + | Marital Status | Single | + + + | Gnosticist Affiliation | 1077 | + + + | Race | Unknown | + + + | Ethnic Group | Unknown | + + + Author + + + | Author | [facility] | | | and [place] | + + + | Organization | [facility] | | | and [...] Team Providers + +------+ + | Care Corporation Lawyer Name | Role | Phone | + [...] | MED CTR EXTERNAL | MD [address] | | | | | IMAGING [address] | [address] | | | | | [address] | [place] [address] | | | | | [place] [address] | | | | | | [phone] | | | +--------+ + + + [...] | 03/17/ | Office | Cardiology | Lorarine Clifton DO | | | 2019 | Visit | | [address] | | | | | | [place] | | | | | | [address] | | | | | | | [...]
--- OUTSIDE RECORDS SUMMARY | ~2019-12-19 | XMS | Encounter Summary ---
Demographics + + + | Address | [address] [address] | | | [place] [address] | + + + | Home Phone [...] Team Providers + +------+ + | Care Material Inspector Name | Role | Phone | [...] [place] | | | | | [place] OFFICE | [place] [address] | [address] Phone: | | | | | OUTPATIENT | Phone: | [phone] | | | | | VISIT 15 | [phone] | Fax: | | | | | MINUTES CC | Fax: | [phone] | | | | | FOLLOW UP | [phone] | | +--------+--------+ + + + + [...] | | | | [place] | [address] | excess calories with | | | | [address] | | body mass index | | | | [phone] | | (BMI) of 45.0 to | [...] kidney and ureter. How to say it ZO-tnw-wlw-SKOP-ik DKX-qaj-ONLE-lg-ebrd-XJE-tuh-joey Getting readyfor surgery Follow any instructions from your healthcare provider. Tell your provider about any medicines you are taking. You may need to stop taking all or s ome of these before the test. These include: All prescription medicines Blood-thinning medicines (anticoagulants) Lzcl-zbg-vjhnxva medicines such as aspirin or ibuprofen Street [...] discuss these with you. Date Last Reviewed: 12/10/201619993324-7809 [employer]. [address] [place] [address]. All righ ts reserved. This information is not intended as a substitute for professional medical care. Always follow your healthcare professional's instructions. documented in this encounter Progress Notes Patrice Cross MD - 05/15/2018 1:30 PM PDTFormatting of this note might be different from t harini quinones. [facility] OFFICE NOTE Primary Care Physician: Sarah [...] FLEXIBLE SIGMOIDOSCOPY; Surgeon: Mehul Bowles MD; Location: [facility] MAIN OR COLONOSCOPY 05/22/2017 FINGER SURGERY [...] at 13:24 CC: Sarah Gallegos MD [address] [place] [address] documented in this encou nter Plan of Treatment +--------+---------+ + + + | Date | Type | Specialty | Care Team | Description | +--------+---------+ + + + | 03/17/ | Office | Cardiology | Lorraine Clifton DO | | | 2020 | Visit | | [address] | | | | | | [place] | | | | | | [address] | | | | | | | [...] 1.001 - 1.030 | | | | [place], | | | | | | [facility], [...]
--- OUTSIDE RECORDS SUMMARY | ~2019-12-19 | XMS | Encounter Summary ---
Demographics + + + | Address | [address] [address] | | | [place] [address] | + + + | Home Phone [...] Team Providers + +------+ + | Care Airframe Design Engineer Name | Role | Phone | + +------+ + | Sarah Carroll MD | PCP | | + +------+ + Encounter Details +--------+ + + + + | Date | Type | Department | Care Team | Description | +--------+ + + + + | 06/16/ | Orders Only | [facility] | Jewel Ulloa MD | Essential | | 2019 | | NEPHROLOGY [place] | [address] | hypertension with | | | | [address] | [address] [place], [place] | goal blood pressure | | | | [address] | [address] | less than 130/80 | | | | [place], [place] | | (Primary Dx); | | | | [address] | | Subclinical | | | | [phone] | | hypothyroidism; | | | | [...] [place] | | | | | | [address] | | | | | | | [...] (HCC) | | + +------+--------+ + + documented [...]
--- OUTSIDE RECORDS SUMMARY | ~2019-12-19 | XMS | Encounter Summary ---
Demographics + + + | Address | [address] [address] | | | [place] [address] | + + + | Home Phone [...] Team Providers + +------+ + | Care Branch Or Department Chief Librarian Name | Role | Phone | + +------+ + | Sarah Carroll MD | PCP | | + +------+ + Encounter Details +--------+ + + + + | Date | Type | Department | Care Team | Description | +--------+ + + + + | 12/13/ | Orders Only | [facility] | Jewel Ulloa MD | Essential | | 2020 | | NEPHROLOGY [place] | [address] | hypertension with | | | | [address] | [address] [place], [place] | goal blood pressure | | | | [address] [place], [place] | [address] | less than 130/80 | | | | [address] | | (Primary Dx); | | | | [phone] | | Subclinical | | | | [...] | | | | | [address] [place] | | | | | | [address] | | | | | | | [...] | | | | | | (moderate) ([facility]) | | | | | | Persistent [...] | | | | | | (moderate) ([facility]) | | | | | | Persistent [...] 3 | | | | | | ([facility]) | | | | | | 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
--- OUTSIDE RECORDS SUMMARY | ~2019-12-19 | XMS | Encounter Summary ---
Demographics + + + | Address | [address] [address] | | | [place] [address] | + + + | Home Phone [...] + + + | Author | [facility] | | | and [place] | + + + | Organization | [facility] | | | [...] Team Providers + +------+ + | Care Front Desk Supervisor Name | Role | Phone | [...] | PHYSIATRY [address] | [address] | | | | | [address] | Terry SMITH | | | | | SHEA [place] | [place] [address] | | | | | [address] | | | | | | [phone] | | | +--------+ + + + [...] [place] | | | | | | [address] | | | | | | | | +--------+---------+ + + + documented as of this encounter Visit Diagnoses Not on filedocumented in this encounter"
--- OUTSIDE RECORDS SUMMARY | ~2019-12-19 | XMS | Encounter Summary ---
Demographics + + + | Address | [address] [address] | | | [place] [address] | + + + | Home Phone | | + + + | Preferred Language | Unknown | + + + | Marital Status | Single | + + + | Yazdanism Affiliation | 1077 | + + + | Race | Unknown | + + + | Ethnic Group | Unknown | + + + Author + + + | Author | [facility] | | | and [place] | + + + | Organization | [facility] | | [...] Team Providers + +------+ + | Care Office Receptionist Name | Role | Phone | + +------+ + | Sarah Carroll MD | PCP | | + +------+ + Encounter Details +--------+ + + + + | Date | Type | Department | Care Team | Description | +--------+ + + + + | 12/13/ | Orders Only | [facility] | Jewel Ulloa MD | Essential | | 2020 | | NEPHROLOGY [place] | [address] [place] | hypertension with | | | | [address] [place] | [address] [place], [place] | goal blood pressure | | | | [address] [place], [place] | [address] | less than 130/80 | | | | [address] | | (Primary Dx); | | | | [phone] | | Subclinical | | | | [...] | | | | | [address] | | | | | | [id number] | | | | | | | [...] | | | | | | (moderate) ([facility]) | | | | | | Persistent [...] | | | | | | (moderate) ([facility]) | | | | | | Persistent [...] | | | | | ([facility]) | | | | | | 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
--- OUTSIDE RECORDS SUMMARY | ~2019-12-19 | XMS | Encounter Summary ---
Demographics + + + | Address | [address] | | | [place] [address] | + + + | Home Phone | | + + + | Preferred Language | Unknown | + + + | Marital Status | Single | + + + | Tenriism Affiliation | LDS | + + + | Race | White | + + + | Ethnic Group | Not or | + + + Author + + + | Author | [facility] | + + + | Organization | [facility] | + + + | Address | Unknown | + + + | Phone | Unavailable | + + + Support + + + + + | Name | Relationship | Address | Phone | + + + + + | Toby Latham | ANNA | [address] | | | | | [place] | | | | | [address] | | + + + + + Care Team Providers + +------+ + | Care Snack Stewardess Name | Role | Phone | + +------+ + | Sarah Carroll MD | PCP | | + +------+ + Encounter Details +--------+--------+ + + + | Date | Type | Department | Care Team | Description | +--------+--------+ + + + | 07/10/ | Intake | Transfer Center | | N/A | | 2019 | | [address] | | | | | | [place], | | | | | | [place] [address] | | | +--------+--------+ + + + [...] [address] | | | | | | [place] | | | | | | [address] | | | | | | [phone] | | | | | | | | +--------+---------+ + + + documented as of this encounter Visit Diagnoses Not on filedocumented in this encounter"
--- OUTSIDE RECORDS SUMMARY | ~2019-12-19 | XMS | Encounter Summary ---
Demographics + + + | Address | [address] [address] | | | [place] [address] | + + + | Home Phone | | + + + | Preferred Language | Unknown | + + + | Marital Status | Single | + + + | Synagogue Affiliation | 1077 | + + + | Race | Unknown | + + + | Ethnic Group | Unknown | + + + Author + + + | Author | [facility] | | | and [place] | + + + | Organization | [facility] | | [...] Team Providers + +------+ + | Care Hand Packer/Packager Name | Role | Phone | + +------+ + | Sarah Carroll MD | PCP | | + +------+ + Encounter Details +--------+ + + + + | Date | Type | Department | Care Team | Description | +--------+ + + + + | 01/02/ | Orders Only | [facility] | Jewel Ulloa MD | | | 2019 | | NEPRHOLOGY [place] | [address] | | | | | [address] | [address] [place], [place] | | | | | [address] [place], [place] | [address] | | | | | [address] | | | | | | [phone] | | | +--------+ + + + [...] [place] | | | | | | [address] | | | | | | | [...] | | | LAB | | | [facility] | | | | | + + [...]
--- OUTSIDE RECORDS SUMMARY | ~2019-12-19 | XMS | Encounter Summary ---
Demographics + + + | Address | [address] | | | [place] [address] | + + + | Home Phone | | + + + | Preferred Language | Unknown | + + + | Marital Status | Single | + + + | Taoist Affiliation | LDS | + + + [...] [place] | | | | | [address] | | + + + + + Care Team Providers + +------+ + | Care [facility] Name | Role | Phone | + [...] | | | | | | [facility] | | | | | | Hospital Admitting | | | | | | Desk Located on the | | | | | | 9th floor | | | | | | [place], [place] | | | | | | [address] | | | +--------+ + + + [...] | | | | | | [place], [place] | | | | | | [address] | | | | | | [phone] | | | | | | | | +--------+---------+ + + + documented as of this encounter Visit Diagnoses Not on filedocumented in this encounter"
--- OUTSIDE RECORDS SUMMARY | ~2019-12-19 | XMS | Encounter Summary ---
Demographics + + + | Address | [address] [address] | | | [place] [address] | + + + | Home Phone | | + + + | Preferred Language | Unknown | + + + | Marital Status | Single | + + + | Church Affiliation | 1077 | + + + | Race | Unknown | + + + | Ethnic Group | Unknown | + + + Author + + + | Author | [facility] | | | and [place] | + + + | Organization | [facility] | | | and [...] Providers + +------+ + | Care Carpet Layer Helper Name | Role | Phone [...] | | | | Malignant | | [address] Phone: | | | | | neoplasm of | | [phone] | | | | | sigmoid | | Fax: | | | | | colon (HCC) | | [phone] | | | | | [C18.7] | | | | | | | Procedures | | | | | | | [place] PART | | | | | | [...] | | | | [place] | [address] | | | | | [address] | | | | | | [phone] | Gregorio Lopes, | | | | | | RN | | +--------+ + + + + [...] +----+---+ + + | | 1 | [place] off | | | | 3 | [...] | | 1 | | given to CIRCULATOR, remedicated for pain and lidocaine infusion | [...] | Periph | 08/16/17; 930; Right; Wrist; 18 | 08/16/17 09 by | 06/11/18 1311 [...] 1308 by | | | Placement Time: 1123 (created via | Mark Acosta | Gregorio Lopes RN | | | procedure documentation); Mask | SANCHEZ Moore | | | | Ventilation: Unable; Airway | | | | | Grade: 1; External Maneuvers: | | | | | elevated head of bed; Successful | | | | | Technique: video scope; | | | | | Laryngoscope Blade Size: 4; | | | | | Attempts: 2 (first attempt by | | | | | SOLDERER TORCH student); Airway Type: | | | | [...] | Cathet | Smallest Catheter, Perineum | NehaDelmyHormigueros | | | er | cleaned, Second [...] | | | Parminder | | | Fortunatoi | | , XIOMARA | | | on | | | [...] | | | | | [address] [place], [place] | | | | | | [address] | | | | | | | [...] | + + + | Gregorio Lopes SOLDERER TORCH Student 08/16/2017 12:19 Anesthesia | | | [...] equipment: stylette Attempts: 2 (first attempt by SANCHEZ | | | student) Airway type: endotracheal [...] Note | + + | Gregorio Lopes RN - 08/16/2017 12:17 PM PST Anesthesia Airway Placement08/16/2017 | | 11:23Preprocedure check: patient identified, suction, oxygen, airway equipment checked, | | airway assessed and patient reassessment prior to inductionRapid Sequence Induction: | | yesMask ventilation: unableExternal maneuver: ramp position and elevated head of | | bedSuccessful technique: videoscopeLaryngoscope blade size: 4 Airway grade: 1 (Full | | view of glottis)Other equipment: styletteAttempts: 2 (first attempt by SOLDERER TORCH | | student)Airway type: endotrachealSize: 8Cuffed: cuffedRoute, reference point: right side | | of mouthTube depth: 24 cmTube secured with: adhesive tapeTrauma: soft tissue laceration | | (small lip cut)Tube placement verification: bilateral chest rise, equal bilateral | | breath sounds, carbon dioxide detection and video laryngoscopePerforming provider: | | MARK MOORElectronically Signed by: Gregorio Lopes CRNA Student | | ESig date/time: 08/16/2017 12:17 | |Airway type: endotracheal [...] |Electronically Signed by: Gregorio Lopes CRNA Student Cassandra da te/time: 08/16/2017 12:17 | | | [...] | | | | to Incision, Starting 08/16/17 | | | | | [...] | | | | | PRN, Starting 08/16/17 at 1130, | | AM PST | [...] mg/kg/hr | mL/hr | | | Starting 08/16/17 at 1145, | | AM PST | | | | | Anesthesia Intra-op | | | | | | + +---------+ + +-------+---+ +---+---+ | | | +---+---+ + +-------+ +-----+---+---+ | magnesium sulfate 500 mg/mL | Given | 08/16/19 | 2 g | | | | injection Intravenous, PRN, | | 18 11:48 | | | | | Starting 08/16/17 at 1148, | | AM PST | [...] | | | | | | Starting 08/16/17 [...] | | | | | Vomiting, Starting Sat08/16/17 at | | PM PST | | [...] | | | | | Dyssynchrony, Starting 08/16/17 | | PM PST | | | [...] 11:22 | | | | | Starting 08/16/17 at 1122, | | AM PST | [...]
--- OUTSIDE RECORDS SUMMARY | ~2019-12-19 | XMS | Encounter Summary ---
Demographics + + + | Address | [address] | | | [place] [address] | + + + | Home Phone | | + + + | Preferred Language | Unknown | + + + | Marital Status | Single | + + + | Yazdanism Affiliation | LDS | + + + [...] [place] | | | | | [address] | | + + + + + Care Team Providers + +------+ + | Care Menhaden Vessel Pilot Name | Role | Phone | + [...] Rd | | | | | | [place], [place] | | | | | | [address] | | | | | | [phone] | | | | | | | | +--------+---------+ + + + documented as of this encounter Visit Diagnoses Not on filedocumented in this encounter"
--- OUTSIDE RECORDS SUMMARY | ~2019-12-19 | XMS | Encounter Summary ---
Demographics + + + | Address | [address] | | | [place] [address] | + + + | Home Phone [...] [place] | | | | | [address] | | + + + + + Care Team Providers + +------+ + | Care Director Of Trauma Name | Role | Phone | + [...] | Encounter | [address] | ,[facility] [address] | | | | | [place], [place] | [address] | | | 07/14/ | | [address] | [place], [place] | | | 2018 | | [phone] | [address] | | | | | | [phone] | | | | | | | | | | | | Kath Silva MD | | | | | | [address] | | | | | | [place]ki [place], | | | | | | [place] [address] | | | | | | [phone] | | | | | | | | | | | | Bety Jameson MD | | | | | | [address] | | | | | | [place] [place], | | | | | | [place] [address] | | | | | | [phone] | | | | | | | [...] Jameson MD - 07/14/2019 8:27 AM PST [facility] Discharge Summary Discharging Provider: BETY JAMESON [...] due to recent polypectomy: Patient had resumed [facility] home warfarin following procedure, although INR was [...] loss: Baseline Hgb was 12 over the bagrer mmer. Was 8.3 on admission and remained [...] go to get your blood ch ecked ([facility]). It was a pleasure taking care of you! Other Orders & Follow-up Plan OTHER DISCHARGE ORDERS & INSTRUCTIONS INR - External Order Standing Status: Future Expected By: 07/16/19 Standing Exp. Date: 08/13/20 AC clinic at [facility] to follow (patient established there) Follow Up: Future Appointments Provider Department Dept Phone Center 09/10/2019 1:20 PM Richard Harvey [facility]opa[facility] at [facility] [phone] Orthopedics Discharge Physical Exam: Last 24 hour [...] no c/c/e BETY JAMESON MD Pager - [phone] sanitation engineer Division of Hospital Medicine I spent more than 35 minutes [id number] with the patient of which greater than [...] Kath Silva MD Division of Hospital Medicine [facility] Pager [phone] maAmberly jorge MD - 1 09/13/2018 3:08 [...] MS Fellow, Gastroenterology and Hepatology PGY-4 Pager [phone] GI Pager: [phone]-[phone]) mador, Amberly Brink MD - 07/13/2019 6:54 [...] MD, MS Fellow, Gastroenterology and Hepatology Pager: [phone] signed by Amberly Morgan MD at 07/13/2019 6:54 AM PSTDuane Eisenberg MD - 07/12/2019 4:55 PM PSTBrief GI Note Unfortunately due to volume of urgent/emergent cases in [facility], unable to perform colonos copy today. Case [...] PM PST Pre Sedation Endoscopy Note: MR# [id number] Subjective: Aaron Latham is a 59 y.o. [...] Kath Silva MD Division of Hospital Medicine [facility] Pager [phone] I spent 30 minutes on the patient [...] Kath Silva MD Division of Hospital Medicine [facility] Pager [phone] Duane Altamirano MD - 07/11/2019 4:26 PM [...] with above. Duane Field Gastroenterology Fellow Pager: [phone] IE/S: Hgb 8.3 -> 8.0 -> 7.9 [...] the original. Pre Sedation Endoscopy Note: MR# [id number] Subjective: Aaron Latham is a 59 y.o. [...] | | 2019 | Visit | | [address] | | | | | | [address] | | | | | | [place], [place] | | | | | | [address] | | | | | | [phone] | | | | | | | [...] | | | LABORATORY | | | [facility] | | | SERVICES, | | | [...] MDRD equation recommended by the National | [facility] | | Kidney Disease Education [...] | + + + + + | [facility] | [address] | [place] [address] | | | SERVICES, CORE | [address] | | | + + + + + COLONOSCOPY (07/13/2019 12:54 PM PST) + + | Specimen | + + | | + + + + + | Narrative | Performed At | + + + | MRN: | [facility] | | [id number] Date: 07/13/2019Patient Name: Aaron Justin #: | ENDOSCOPY | | [id number] of : 1960SN: [id number] Type: | | | InpatientRoom: GI 3Procedure: ColonoscopyIndications: | | | Rectal bleeding; post polypectomy bleedProviders: | | | MILAD CAMPBELL MD (Doctor), CATARINA SOLIMAN RN | | | (Nurse), JAYANT KELLY (Wheelchair Van Operator First Responder), | | | AMBERLY MORGAN MD (Fellow)Referring [...] the procedure. | | | The Olympus [id number] Colonoscope #[id number] was | | | introduced through the [...] evaluated | | | using the BBPS ([facility] | | | Preparation Scale). The [...] of Addenda: 0Note Initiated On: 07/13/2019 12:54 [facility] Letter | | | to: SARAH [...] | [address] | [place] [address] | | | SERVICES, CORE | PARK [...] | | | LABORATORY | | | [facility] | | | SERVICES, | | | [...] | + + + + + | [facility] | [address] | [place] [address] | | | SUSANA CARTAGENA | PARK [...] | + + + + + | [facility] | [address] | [place] [address] | | | SERVICES, CORE | [address] [...] | | | LABORATORY | | | [facility] [facility] | | | SERVICES, | | | [...] MDRD equation recommended by the National | [facility] | | Kidney Disease Education [...] + + | [facility] | [address] [facility] | [place] [address] | | | SERVICES, CORE | PARK [...] | [address] | [place] [address] | | | SERVICES, | [address] [...] | [address] | [place] [address] | | | SERVICES, | [address] [...] + + | [facility] | [address] [facility] | [place] [address] | | | SERVICES, | [address] [...] | + + + + + | [facility] | [address] | [place] [address] | | | SERVICES, CORE | [address] [...] | [address] | [place] [address] | | | SERVICES, CORE | [address] [...] | [address] | [place] [address] | | | SERVICES, CORE | PARK [...] | | | LABORATORY | | | [facility] [facility] | | | SERVICES, | | | [...] MDRD equation recommended by the National | [facility] | | Kidney Disease Education Program. Estimated [...] | + + + + + | [facility] | [address] | [place] [address] | | | SERVICES, CORE | [address] [...]
--- OUTSIDE RECORDS SUMMARY | ~2019-12-19 | XMS | Encounter Summary ---
Demographics + + + | Address | [address] | | | [place] [address] | + + + | Home Phone [...] [place] | | | | | [address] | | + + + + + Care Team Providers + +------+ + | Care International Trade Teacher Name | Role | Phone | [...] Pre-operative | | 2019 | cheduled | [facility] at | | evaluation | | | | [facility] | | | | | | [address] | | | | | | Mail Code: OC8PM | | | | | | [facility] | | | | | | and Healing, | | | | | | [address] | | | | | | [place], [place] | | | | | | [address] | | | | | | [phone] | | | +--------+ + + + [...] + + + | Periph | 07/01/19; 0955; Right; | 07/01/19 0955 by | 07/11/19 1534 by | | eral | Antecubital; 20 g; Positive; | Danny Weber, RN | Shahid Ruiz, RN | | IV | 07/11/19; 1534; [...] of this encounter Patient Instructions Patient Instructions JosephNini, RN - 06/26/2019 10:12 AM PSTFormatting of [...] have not received them, contact Endoscopy at [phone]. Eating/Drinking Instructions: Follow instructions provided by [facility] Endoscopy. You should have received these instruction s by mail or email. If you have not received them, contact Endoscopy at [phone]. General Medications Instructions Oral iron: If you [...] /Eliquis, rivaroxaban/Xarelto, dabigatran/Pradaxa, or Plavix/Brilinta, your prescriber ([facility] doctor, senior health physics technician, anticoagulation clinic, ex.) should be the one [...] of your procedu re. Procedure check-in location: [facility] BU[facility] 2 Procedure Check in Time: The [...] ch as Uber/Lyft), or public transportation. An Uber/Lyft/straight truck driver does not count as the [...] it is after office hours, call the [facility] buzzsaw operator at [phone] and ask them to page the on-c [...] [address] | | | | | | [place], [place] | | | | | | [address] | | | | | | [phone] | | | | | | | | +--------+---------+ + + + documented as of this encounter Visit Diagnoses Not on filedocumented in this encounter
--- OUTSIDE RECORDS SUMMARY | ~2019-12-19 | XMS | Encounter Summary ---
Demographics + + + | Address | [address] [address] | | | [place] [address] | + + + | Home Phone [...] Team Providers + +------+ + | Care Blow Pit Operator Name | Role | Phone | [...] | | | | | atrial | ESOL TEACHER ASSISTANT [address] | | | | | fibrillation | [address] | [place] | | | | | (HCC) | [address] | [place], [place] | | | | | Chronic | [place] | [address] | | | | | combined | [address] | Phone: | | | | | systolic and | Phone: | [phone] | | | | | diastolic | [phone] | Fax: | | | | | congestive | Fax: | [phone] | | | | | heart | [phone] | | | | | | failure [...] Cardiology | combined | [address] | ESOL TEACHER ASSISTANT [address] | | | | | systolic | [address] | [address] | | | | | (congestive) | [place], | [address] | | | | | and | [place] [address] | [place] | | | | | diastolic | Phone: | [address] Phone: | | | | | (congestive) | [phone] | [phone] | | | | | heart | Fax: | Fax: | | | | | failure | [phone] | [phone] | | | | | (HCC) 6 [...] + + | 06/01/ | Office | [facility] | Ileana Henson | Paroxysmal atrial | | 2019 | Visit | CARDIOLOGY [place] | [address] | fibrillation (HCC) | | | | [address] | [address] | (Primary Dx); | | | | [address] | [place] [address] | Chronic combined | | | | [place] | [phone] | systolic and | | | | [address] | | diastolic congestive | | | | [phone] | | heart failure | | | [...] you an Echo to be done at [facility] I made changes to medications : take [...] He is managed on Coumadin for his [id number] 2 VASC score of 2 which is managed by the [facility] Coumadin clinic. He was hospitalized in July 2017 at [facility] for acute GI bleeding, where a [...] surgery 08/16/2017 by , colorectal surgeon in [place], with low anterior resection with open approach, did not require any Chemo or radiation, He also followed up Dr. Cross in [place], and had left nephrectomy 06/11/2018 for reji [...] 324 pounds after he had been hospitali [facility], but has struggled to remain less than [...] reports he had a colonoscopy performed at [facility] last month, but needs to be repeated, as prep not effective enough. 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 Cross in [place] Denies hematuria. Denies history of benign prostatic [...] illicit drug use. Exercises sporadically . 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 Lives with his [...] for: TOTEPI CARDIAC PROCEDURES/IMAGING Last Cath: 02/06/2017 ([facility]) Separate ostia of the left anterior descending [...] inadequate TR jet. Pulmonic valve normal, trace TX. No p ericardial effusion. IVC 1.5-2.5 cm, [...] block. Bifascicular Block: Rate 5 8 bpm, TX 222 ms, QRS 156 ms, QTC 475 ms EK03/11: Sinus bradycardia with first-degree A-V block. Bi fascicular block. Rate 59 bpm, TX 238 ms, QRS 160 ms, QTC 481 ms, compared to EKG done in January first-degree A-V b lock has increased slightly,tracing personally reviewed by me EK08/01: Sinus rhythm with first-degree AV block. Left axis deviation and a right bundle branch block. Rate 65 bpm, TX 230 ms, QRS 162 ms, QTC 497 ms, when compared to EKG done in February 2017, TX interval has decreased slightly and QTC has increased ,tracing person ally reviewed by me EK10/30/2018: Sinus rhythm with first-degree AV block bifascicular block, old septal infa rct. Rate 66 bpm, TX 250 ms, QRS 156 ms, QTC 475 [...] with Dr. Lorraine Clifton as his primary manager business intelligence in 6 months, but I will also [...] contain inadvertent rec ognition errors. Ethan [facility] Cardiology 06/01/2019 docum ented in this [...]
--- OUTSIDE RECORDS SUMMARY | ~2019-12-19 | XMS | Encounter Summary ---
Demographics + + + | Address | [address] [address] | | | [place] [address] | + + + | Home Phone [...] | Author | [facility] | | | and [place] | + + + | Organization | [facility] [...] Team Providers + +------+ + | Care Club Former Name | Role | Phone | [...] | | | | | DNA | [address] | | | | | | antibody | RAUDEL STARKS, | | | | | | positive | [place] [address] | | | | | | Peripheral | Phone: | | | | | | polyneuropat | [phone] | | | | | | hy Numbness | Fax: | | | | | | of both | [phone] | | | | | | lower [...] PHYSIATRY [address] | MD [address] | | | | | [address] | [place], [place] | | | | | [place], [place] | [address] | | | | | [address] | | | | | | [phone] | | | +--------+ + + + [...] [place] | | | | | | [address] | | | | | | | [...]
--- OUTSIDE RECORDS SUMMARY | ~2019-12-19 | XMS | Encounter Summary ---
Demographics + + + | Address | [address] [address] | | | [place] [address] | + + + | Home Phone | | + + + | Preferred Language | Unknown | + + + | Marital Status | Single | + + + | Amish Affiliation | 1077 | + + + | Race | Unknown | + + + | Ethnic Group | Unknown | + + + Author + + + | Author | [facility] | | | and [place] | + + + | Organization | [facility] | | | [...] Team Providers + +------+ + | Care Ripshear Operator Name | Role | Phone | + +------+ + | Sarah Carroll MD | PCP | | + +------+ + Encounter Details +--------+ + + + + | Date | Type | Department | Care Team | Description | +--------+ + + + + | 05/21/ | Orders Only | [facility] | Patrice Cross MD | Renal mass (Primary | | 2018 | | [address] | [address] | Dx); Pre-operative | | | | [address] | [address] [place] | cardiovascular | | | | [place] | [address] | examination; | | | | [address] | | Pre-operative | | | | [phone] | | laboratory | | | | [...] | | | | | [address] [place] | | | | | | [address] | | | | | | | [...]
--- OUTSIDE RECORDS SUMMARY | ~2019-12-19 | XMS | Encounter Summary ---
Demographics + + + | Address | [address] | | | [place] [address] | + + + | Home Phone [...] [place] | | | | | [address] | | + + + + + Care Team Providers + +------+ + | Care Biology Research Assistant Name | Role | Phone | + +------+ + | Sarah Carroll MD | PCP | | + +------+ + Encounter Details +--------+ + + + + | Date | Type | Department | Care Team | Description | +--------+ + + + + | 02/09/ | Transcribe | [facility] | Transcribe | | | 2019 | Orders | [facility] [address] | Encounter, Provider, | | | | | [place] Grijalva Mailcode: | [address] | | | | | [facility] | [place] [address] | | | | | Health and Healing, | | | | | | Building [address] | | | | | | [place], [place] | | | | | | [address] | | | | | | [phone] | | | +--------+ + + + [...] | | 2019 | Visit | | [address] | | | | | | [address] | | | | | | [place], [place] | | | | | | [address] | | | | | | [phone] | | | | | | | [...] + | MRN: | [facility] | | [id number] Date: 04/14/2019Patient Name: Aaron Justin #: | ENDOSCOPY | | [id number] of : 1960SN: [id number] Type: | | | AmbulatoryRoom: Endo 5Procedure: [...] RN (Nurse), NGHIA YBARRA | | | (Corporate Administrative Assistant), PADMAJA ROSS | | | (Corporate Administrative Assistant)Referring MD: JACK TINOCO JR, | | | [...] the procedure. The Olympus | | | [id number] Colonoscope #[id number] was introduced | | | through the [...] questions, please contact the | | | security supervisor. - Stop | | | anticoagulation (coumadin) [...]
--- OUTSIDE RECORDS SUMMARY | ~2019-12-19 | XMS | Encounter Summary ---
Demographics + + + | Address | [address] | | | [place] [address] | + + + | Home Phone | | + + + | Preferred Language | Unknown | + + + | Marital Status | Single | + + + | Uatsdin Affiliation | LDS | + + + [...] [place] | | | | | [address] | | + + + + + Care Team Providers + +------+ + | Care Insurance Sales Representative Name | Role | Phone | + [...] | | 2019 | Visit | | [address] | | | | | | [address] | | | | | | [place], [place] | | | | | | [address] | | | | | | [phone] | | | | | | | | +--------+---------+ + + + documented as of this encounter Visit Diagnoses Not on filedocumented in this encounter"
--- OUTSIDE RECORDS SUMMARY | ~2019-12-19 | XMS | Encounter Summary ---
Demographics + + + | Address | [address] [address] | | | [place] [address] | + + + | Home Phone [...] Providers + +------+ + | Care Staple Cutter Name | Role | Phone | [...] | | | | Peritoneal | | [address] Phone: | | | | | adhesion | | [phone] | | | | | Procedures | | Fax: | | | | | [place] | | [phone] | | | | | BOWEL | | | | | | | ADHESION,ENT | | | | | | | EROLYSIS [place] | | | | | | | [...] [address] | [place] [address] | | | | | [place] | [phone] | | | | | [address] | | | | | | [phone] | Leyla Lepe, | | | | | | TACTICAL DECEPTION PLANS OFFICER [address] | | | | | | [place] | | | | | | [address] | | | | | | | | +--------+ + + + + Anesthesia Record + + + + + | Procedure Name | Responsible | Anesthesia Start | Anesthesia Stop Time | | | Anesthesiologist | Time | | + + + + + | LEFT LAPAROSCOPIC | Feliberto Beltran MD | 06/11/18 1312 | 06/11/18 5959 | | NEPHRECTOMY WITH | | | [...] +----+---+ + + | | 1 | [place] | | | | 3 | 43-degrees [...] +----+---+ + + | | 1 | [place] off | | | | 5 | [...] 06/12/18 0722 by | | cherelle | uucz-wdm-cykjmr catheter system; | Myla Vega RN | [...] | | | procedure documentation); Mask | TACTICAL DECEPTION PLANS OFFICER | TACTICAL DECEPTION PLANS OFFICER | | | Ventilation: EZ w/OA; Airway [...] | Forearm; 18 gauge; 06/16/18; 1237 | TACTICAL DECEPTION PLANS OFFICER | | +--------+ + + + | [...] [place] | | | | | | [address] | | | | | | | [...] 06/11/2018 13:40 Indication: necessitating | | | physician/TACTICAL DECEPTION PLANS OFFICER skill Preparation: chlorhexidine/isopropyl alcohol | | | [...] 1:55 PM PDT Intravenous Line | | Wrttwauto90/31/2018 13:40Indication: necessitating physician/TACTICAL DECEPTION PLANS OFFICER skillPreparation: | | chlorhexidine/isopropyl alcoholpatient was: under [...] | |Electronically Signed by: Leyla Lepe CRNA [facility] date/time: 05/14 13:55 | + + Anesthesia [...] - 06/11/2018 1:52 PM PDT Arterial Line Wlrymyhxx69/31/2018 | | 13:30Indication: continuous blood pressure monitoringPrep [...] 1:51 PM PDT Anesthesia Airway | | Dlmavkfcs41/31/2018 13:24Preprocedure check: patient identified, oxygen, airway | [...]
--- OUTSIDE RECORDS SUMMARY | ~2019-12-19 | XMS | Encounter Summary ---
Demographics + + + | Address | [address] [address] | | | [place] [address] | + + + | Home Phone | | + + + | Preferred Language | Unknown | + + + | Marital Status | Single | + + + | Nondenominational Affiliation | 1077 | + + + | Race | Unknown | + + + | Ethnic Group | Unknown | + + + Author + + + | Author | [facility] | | | and [place] | + + + | Organization | [facility] | | [...] Team Providers + +------+ + | Care Composition Mixer Name | Role | Phone | + [...] | bilateral | [address] | | | | n | low back | [address] | [place], | | | | | pain with | [place], | [place] [address] | | | | | bilateral | [place] [address] | Phone: | | | | | sciatica | Phone: | [phone] | | | | | Bilateral | [phone] | Fax: | | | | | foot-drop | Fax: | [phone] | | | | | Numbness of | [phone] | | | | | | both lower | | | | | | | extremities | | | | | | | Procedures | | | | | | | NE MOTOR | | | | | | | &/SENS / | | | | | | | NRV CNDJ | | | | | | | PRECONF | | | | | | | ELTRODE LIMB | | | | | | | NE NEEDLE | | | | | | | EMG EA | | | | | | | EXTREMITY | | | | | | | W/PARASPINL | | | | | | | AREA LIMITED | | | | | | | NE MOTOR | | | | | | | &/SENS - | | | | | | | NRV CNDJ | | | | | | | PRECONF | | | | | | | ELTRODE LIMB | | | | | | | NE OFFICE | | | | | | [...] PHYSIATRY [address] | MD [address] | polyneuropathy | | | | [address] | [place] | (Primary Dx); | | | | [place] | [address] | Chronic bilateral | | | | [address] | | low back pain with | | | | [phone] | | bilateral sciatica; | | | [...] might be different fro m the original. [facility] Physical Medicine & Rehabilitation [address] [place] [address], [address] [place] [address] Test Date: 01/12/2019 Patient Name: Aaron Latham : 1960 Physician: Riccardo Malhotra MD () MR #: [id number] Sex: Male Referring Physician: Sarah Carroll HISTORY: [...] face with Aaron Latham, over half of [facility] h was spent formulating and discussing their medical treatment plan. Thank you for allowing me to be involved in the care of your patient. If you have any quest ions or comments, please do not hesitate to call. Riccarod Malhotra MD (Jr.) Physical Medicine and Rehabilitation [...]
--- OUTSIDE RECORDS SUMMARY | ~2019-12-19 | XMS | Encounter Summary ---
Demographics + + + | Address | [address] [address] | | | [place] [address] | + + + | Home Phone [...] Team Providers + +------+ + | Care Position Description Manager Name | Role | Phone | + +------+ + | Sarah Carroll MD | PCP | | + +------+ + Encounter Details +--------+ + + + + | Date | Type | Department | Care Team | Description | +--------+ + + + + | 01/22/ | Orders Only | [facility] | Mauliktayla Ileana | | | 2017 | | CARDIOLOGY [place] | [address] | | | | | [address] | [address] | | | | | [place], [place] | [place] [address] | | | | | [address] | [phone] | | | | | [phone] | | | +--------+ + + + [...] [place] | | | | | | [address] | | | | | | | [...]
--- OUTSIDE RECORDS SUMMARY | ~2019-12-19 | XMS | Encounter Summary ---
Demographics + + + | Address | [address] | | | [place] [address] | + + + | Home Phone [...] [place] | | | | | [address] | | + + + + + Care Team Providers + +------+ + | Care Churn Driller Name | Role | Phone | + [...] | | Herring Valentine Mailcode: | [place], [place] | | | | [facility] | [address] | | | | | Health and Healing, | [phone] | | | | | [address] [address] [facility] | | | | | | Floor [place], [place] | | | | | | [address] | | | | | | [phone] | | | +--------+ + + + [...] Rd | | | | | | [place], [place] | | | | | | [address] | | | | | | [phone] | | | | | | | [...]
--- OUTSIDE RECORDS SUMMARY | ~2019-12-19 | XMS | Encounter Summary ---
Demographics + + + | Address | [address] | | | [place] [address] | + + + | Home Phone | | + + + | Preferred Language | Unknown | + + + | Marital Status | Single | + + + | Spiritism Affiliation | LDS | + + + [...] [place] | | | | | [address] | | + + + + + Care Team Providers + +------+ + | Care Film Library Clerk Name | Role | Phone | + +------+ + | Sarah Carroll MD | PCP | | + +------+ + Encounter Details +--------+ + + + + | Date | Type | Department | Care Team | Description | +--------+ + + + + | 07/01/ | Lidar Analyst | Digestive Health | [place], | Constipation, | | 2019 | | [place] [facility] [address] | MD [address] | unspecified | | | | [address] | [address] | constipation type | | | | Mailcode: Center | [place], [place] | (Primary Dx) | | | | for Health and | [address] | | | | | [facility] 2 | [phone] | | | | | [place], [place] | | | | | | [address] | | | | | | [phone] | | | +--------+ + + + [...] Rd | | | | | | [place], [place] | | | | | | [address] | | | | | | [phone] | | | | | | | | +--------+---------+ + + + documented as of this encounter Visit Diagnoses + + | Diagnosis | + + | Constipation, unspecified constipation type - Primary | + + documented in this encounter"
--- OUTSIDE RECORDS SUMMARY | ~2019-12-19 | XMS | Encounter Summary ---
Demographics + + + | Address | [address] [address] | | | [place] [address] | + + + | Home Phone | | + + + | Preferred Language | Unknown | + + + | Marital Status | Single | + + + | Catholic Affiliation | 1077 | + + [...] Team Providers + +------+ + | Care Yarn Dyer Name | Role | Phone | + +------+ + | Sarah Carroll MD | PCP | | + +------+ + Encounter Details +--------+ + + + + | Date | Type | Department | Care Team | Description | +--------+ + + + + | 06/06/ | Telephone | [facility] | Patrice Cross MD | | | 2017 | | [address] | [address] | | | | | [address] | [address] | | | | | [place], [place] | [address] | | | | | [address] | | | | | | [phone] | | | +--------+ + + + [...] | | | | | [address] | | | | | | [address] | | | | | | | | +--------+---------+ + + + documented as of this encounter Visit Diagnoses Not on filedocumented in this encounter"
--- OUTSIDE RECORDS SUMMARY | ~2019-12-19 | XMS | Clinical Summary ---
Demographics + + + | Address | [address] | | | [place] [address] | + + + | Home Phone | | + + + | Preferred Language | Unknown | + + + | Marital Status | Single | + + + | Moravian Affiliation | LDS | + + + | Race | White | + + + | Ethnic Group | Not or | + + + Author + + + | Author | [facility] | + + + | Organization | [facility] | + + + | Address | Unknown | + + + | Phone | Unavailable | + + + Support + + + + + | Name | Relationship | Address | Phone | + + + + + | Toby Latham | ECON | [address] [address] | | | | | [place] | | | | | [address] | | + + + + + Care Team Providers + +------+ + | Care Field Marketing Representative Name | Role | Phone | + +------+ + | Sarah Carroll MD | PCP | | + +------+ + Source Comments [facility] is fully live on both [facility]ulatory and [facility] InPatient.[facility] Allergies No Known Allergies Medications + + [...] | | 2019 | Visit | | [address] | | | | | | [address] | | | | | | [place], [place] | | | | | | [address] | | | | | | [phone] | | | | | | | [...] AFFINI | | [address] | 4 | [address] | | | | [place] | | sent | | [place], | | | | | | | | [place] [address] | | +-------+--------+ +--------+ + +------+ + [...] renetta | | | 1 (Home) | [address] | + +--------+ +--------+ + + Advance [...]
--- OUTSIDE RECORDS SUMMARY | ~2019-12-19 | XMS | Encounter Summary ---
Demographics + + + | Address | [address] | | | [place] [address] | + + + | Home Phone [...] + + + | Author | [facility] | + + + | Organization | [facility] | + + + | Address | Unknown | + + + | Phone | Unavailable | + + + Support + + + + + | Name | Relationship | Address | Phone | + + + + + | Toby Latham | ANNA | [address] | | | | | [place] | | | | | [address] | | + + + + + Care Team Providers + +------+ + | Care Gate Mortiser Operator Name | Role | Phone [...] | | | | | | [place] [address] | | | +--------+--------+ + + + [...] Rd | | | | | | [place] | | | | | | [address] | | | | | | [phone] | | | | | | | | +--------+---------+ + + + documented as of this encounter Visit Diagnoses Not on filedocumented in this encounter"
--- OUTSIDE RECORDS SUMMARY | ~2019-12-19 | XMS | Encounter Summary ---
Demographics + + + | Address | [address] [address] | | | [place] [address] | + + + | Home Phone | | + + + | Preferred Language | Unknown | + + + | Marital Status | Single | + + + | Hindu Affiliation | 1077 | + + + | Race | Unknown | + + + | Ethnic Group | Unknown | + + + Author + + + | Author | [facility] | | | and [place] | + + + | Organization | [facility] | | [...] Providers + +------+ + | Care Manager Urgent Care Name | Role | Phone | + +------+ + | Sarah Carroll MD | PCP | | + +------+ + Encounter Details +--------+ + + + + | Date | Type | Department | Care Team | Description | +--------+ + + + + | 04/30/ | Orders Only | [facility] | Patrice Cross MD | Renal mass (Primary | | 2018 | | [address] | [address] | Dx) | | | | [address] | [address] | | | | | [address] | [address] | | | | | [phone] | | | +--------+ + + + [...] [place] | | | | | | [address] | | | | | | | [...]
--- OUTSIDE RECORDS SUMMARY | ~2019-12-19 | XMS | Encounter Summary ---
Demographics + + + | Address | [address] | | | [place] [address] | + + + | Home Phone | | + + + | Preferred Language | Unknown | + + + | Marital Status | Single | + + + | Church Affiliation | LDS | + + + [...] [place] | | | | | [address] | | + + + + + Care Team Providers + +------+ + | Care Esol Teacher Name | Role | Phone | [...] | | | | | | [facility] | | | | | | Hospital Admitting | | | | | | Desk Located on the | | | | | | 9th floor | | | | | | [place], [place] | | | | | | [address] | | | +--------+ + + + [...] Rd | | | | | | [place], [place] | | | | | | [address] | | | | | | [phone] | | | | | | | | +--------+---------+ + + + documented as of this encounter Visit Diagnoses Not on filedocumented in this encounter"
--- OUTSIDE RECORDS SUMMARY | ~2019-12-19 | XMS | Encounter Summary ---
Demographics + + + | Address | [address] [address] | | | [place] [address] | + + + | Home Phone [...] Team Providers + +------+ + | Care Mileage Clerk Name | Role | Phone | [...] | | | | low back | [address] | [address] | | | | | pain with | [place], | [place], [place] | | | | | bilateral | [place] [address] | [address] | | | | | sciatica | Phone: | Phone: | | | | | Bilateral | [phone] | [phone] | | | | | foot-drop | Fax: | Fax: | | | | | Numbness of | [phone] | [phone] | | | | | both lower [...] | bilateral | [address] | [address] | | | | n | low back | [address] | [place], | | | | | pain with | [place], | [place] [address] | | | | | bilateral | [place] [address] | Phone: | | | | | sciatica | Phone: | [phone] | | | | | Bilateral | [phone] | Fax: | | | | | foot-drop | Fax: | [phone] | | | | | Numbness of | [phone] | | | | | | both lower | | | | | | | extremities | | | | | | | Procedures | | | | | | | [place] MOTOR | | | | | | | &/SENS / | | | | | | | NRV CNDJ | | | | | | | PRECONF | | | | | | | ELTRODE LIMB | | | | | | | [place] NEEDLE | | | | | | | EMG EA | | | | | | | EXTREMITY | | | | | | | W/PARASPINL | | | | | | | AREA LIMITED | | | | | | | [place] MOTOR | | | | | | [...] Rehabilitatio | | [address] | [address] | | | | n | | [address] | [place], | | | | | | [place], | [place] [address] | | | | | | [place] [address] | Phone: | | | | | | Phone: | [phone] | | | | | | [phone] | Fax: | | | | | | Fax: | [phone] | | | | | | [phone] | | +--------+--------+ + + + + Encounter Details +--------+---------+ + + + | Date | Type | Department | Care Team | Description | +--------+---------+ + + + | 12/15/ | Office | [facility] | Riccardo Malhotra, | Bilateral foot-drop | | 2019 | Visit | PHYSIATRY [address] | MD [address] | (Primary Dx); | | | | [address] | [place] | Chronic bilateral | | | | [place] | [address] | low back pain with | | | | [address] | | bilateral sciatica; | | | | [phone] | | Meralgia | | | | [...] encounter Patient Instructions Patient Instructions Bianca Hernandez, Cardiac Exercise Physiologist - 12/15/2018 1:00 PM PDTX-rays have been [...] renal failure, stage 3 (moderate) ([facility]) Angiomyolipoma of left kidney status [...] FLEXIBLE SIGMOIDOSCOPY; Surgeon: Mehul Bowles MD; Location: [facility] MAIN OR COLONOSCOPY 05/22/2017 FINGER SURGERY Right 1974 AMPUTATION 5th finger TONSILLECTOMY 1969 TOTAL NEPHRECTOMY Left 06/11/2018 Procedure: LEFT LAPAROSCOPIC NEPHRECTOMY WITH NODE DISSECTION AND LAPAROSCOPIC LYSIS OF AD HESIONS; Surgeon: Patrice Cross MD; Location: [facility] MAIN OR Unlisted Procedure Arthroscopy Family [...] [place] | | | | | | [address] | | | | | | | [...]
--- OUTSIDE RECORDS SUMMARY | ~2019-12-19 | XMS | Encounter Summary ---
Demographics + + + | Address | [address] [address] | | | [place] [address] | + + + | Home Phone | | + + + | Preferred Language | Unknown | + + + | Marital Status | Single | + + + | Hindu Affiliation | 1077 | + + + | Race | Unknown | + + + | Ethnic Group | Unknown | + + + Author + + + | Author | [facility] | | | and [place] | + + + | Organization | [facility] | | [...] Team Providers + +------+ + | Care Smoke And Flame Specialist Name | Role | Phone | [...] | | | | Malignant | | [address] Phone: | | | | | neoplasm of | | [phone] | | | | | sigmoid | | Fax: | | | | | colon (HCC) | | [phone] | | | | | [C18.7] | | | | | | | Procedures | | | | | | | MO PART | | | | | | [...] | | | | [place] | [address] | | | | | [address] | | | | | | [phone] | Gregorio Lopes, | | | | [...] +----+---+ + + | | 1 | [place] off | | | | 3 | [...] | | 1 | | given to ROOM SERVICE WAITER, remedicated for pain and lidocaine infusion | [...] attempt by | | | | | ACID CRANE OPERATOR student); Airway Type: | | | | [...] | Cathet | Smallest Catheter, Perineum | NehaDelmyCabarrus | | | er | cleaned, Second [...] | | | | | [address] [place], [place] | | | | | | [address] | | | | | | | [...] | + + + | Gregorio Lopes ACID CRANE OPERATOR Student 08/16/2017 12:19 Anesthesia | | | [...] glottis)Other equipment: styletteAttempts: 2 (first attempt by ACID CRANE OPERATOR | | student)Airway type: endotrachealSize: 8Cuffed: cuffedRoute, reference point: right side | | of mouthTube depth: 24 cmTube secured with: adhesive tapeTrauma: soft tissue laceration | | (small lip cut)Tube placement verification: bilateral chest rise, equal bilateral | | breath sounds, carbon dioxide detection and video laryngoscopePerforming provider: | | MARK MOORElectronically Signed by: Gregorio oLpes CRNA Student | | ESig date/time: 08/16/2017 [...]
--- OUTSIDE RECORDS SUMMARY | ~2019-12-19 | XMS | Encounter Summary ---
Demographics + + + | Address | [address] | | | [place] [address] | + + + | Home Phone [...] [place] | | | | | [address] | | + + + + + Care Team Providers + +------+ + | Care Instrumentation Controls Engineer Name | Role | Phone | [...] | Procedural Unit | MD Steven [address] [facility] | | | | | ([facility]) at [facility] [address] | | | | | [address] | [place], [place] | | | | | Mailcode: [place] | [address] | | | | | for [facility] and | [phone] | | | | | [facility] 2 | | | | | | [place], [place] | | | | | | [address] | | | | | | [phone] | | | +--------+ + + + [...] Call the endoscopy department toll free ext. [phone] or After business hours or on weekends and holidays call the Hospital Photostatic Copy Maker toll free [phone] Ext. [phone] or and have the GI doctor guidance consultant paged. The provider who performed your procedure [...] 11:54 AM PDT PRE PROCEDURE NOTE: MR# [id number] Subjective: Aaron Latham is a 59 y.o. [...] | 2019 | Visit | | [address] [facility] | | | | | | [facility] | | | | | | [place], [place] | | | | | | [address] | | | | | | [phone] | | | | | | | [...] 0.9 - 1.2 INR | [facility], | | | TIME | | [...] + + | THOMAS [facility] | [address] [facility] | [place] [address] | | | OF CARE TESTS | | | | + + + + + COLONOSCOPY (04/14/2019 11:50 AM PDT) + + | Specimen | + + | | + + + + + | Narrative | Performed At | + + + | MRN: | [facility] | | [id number] Date: 04/14/2019Patient Name: Aaron Justin #: | ENDOSCOPY | | [id number] of : 1960SN: [id number] Type: | | | AmbulatoryRoom: Endo 5Procedure: [...] RN (Nurse), NGHIA YBARRA | | | (Auto Service Dispatcher), PADMAJA ROSS | | | (Auto Service Dispatcher)Referring MD: JACK TINOCO JR, | | | [...] the procedure. The Olympus | | | [id number] Colonoscope #[id number] was introduced | | | through the [...] questions, please contact the | | | auxiliary engineer. - Stop | | | anticoagulation (coumadin) [...]
--- OUTSIDE RECORDS SUMMARY | ~2019-12-19 | XMS | Encounter Summary ---
Demographics + + + | Address | [address] [address] | | | [place] [address] | + + + | Home Phone [...] Team Providers + +------+ + | Care Groundskeeper Porter Name | Role | Phone | + [...] + + | 07/10/ | Telephone | [facility] | Patrice Cross MD | Other (Lab order) | | 2017 | | [address] | [address] | | | | | [address] [place], [place] | [address] [place] | | | | | [address] | [address] | | | | | [phone] | | | +--------+ + + + [...] [place] | | | | | | [address] | | | | | | | [...]
--- OUTSIDE RECORDS SUMMARY | ~2019-12-19 | XMS | Encounter Summary ---
Demographics + + + | Address | [address] | | | [place] [address] | + + + | Home Phone [...] [place] | | | | | [address] | | + + + + + Care Team Providers + +------+ + | Care Validation Engineer Name | Role | Phone | + +------+ + | Sarah Carroll MD | PCP | | + +------+ + Encounter Details +--------+ + + + + | Date | Type | Department | Care Team | Description | +--------+ + + + + | 04/14/ | Transcribe | [facility] | Transcribe | | | 2019 | Orders | [place] | Encounter, Provider, | | | | | Nima Grijalva Mailcode: | [address] | | | | | [facility] | [place] [address] | | | | | Health and Healing, | | | | | | Building [address] | | | | | | [place], [place] | | | | | | [address] | | | | | | [phone] | | | +--------+ + + + [...] | | 2019 | Visit | | [address] | | | | | | [address] | | | | | | [place], [place] | | | | | | [address] | | | | | | [phone] | | | | | | | | +--------+---------+ + + + documented as of this encounter Results COLONOSCOPY (07/01/2019 10:08 AM PST) + + | Specimen | + + | | + + + + + | Narrative | Performed At | + + + | MRN: | [facility] | | [id number] Date: 07/01/2019Patient Name: Aaron Justin #: | ENDOSCOPY | | [id number] of : 1960SN: [id number] Type: | | | AmbulatoryRoom: Endo 5Procedure: | | | ColonoscopyIndications: Therapeutic procedure for known | | | colon polypPatient Profile: This is a 59 year old male. Refer to | | | note in patient chart for | | | documentation of history and physical.Providers: WILLA | | | MD PEDRO (Doctor), CATARINA SOLIMAN RN | | | (Nurse), NGHIA YBARRA (Product Specialist)Referring MD: WILLA | | | PEDRO MDRequesting [...] the procedure. The [employer] | | | [id number] Colonoscope #[id number] was introduced | | | through the [...] | | any questions, please contact the financial advisor. | | | - Clear liquid diet [...]
--- OUTSIDE RECORDS SUMMARY | ~2019-12-19 | XMS | Encounter Summary ---
Demographics + + + | Address | [address] | | | [place] [address] | + + + | Home Phone | | + + + | Preferred Language | Unknown | + + + | Marital Status | Single | + + + | Baptism Affiliation | LDS | + + + [...] | + + + + + | oTby Latham | ANNA | [address] | | | | | [place] | | | | | [address] | | + + + + + Care Team Providers + +------+ + | Care Open Hearth Furnace Laborer Name | Role | Phone | + +------+ + | Sarah Carroll MD | PCP | | + +------+ + Encounter Details +--------+ + + + + | Date | Type | Department | Care Team | Description | +--------+ + + + + | 07/01/ | Taste Tester | Digestive Health | [place], | Constipation, | | 2019 | | [place] [facility] [address] | MD [address] | unspecified | | | | [address] | [address] | constipation type | | | | Mailcode: Center | [place], [place] | (Primary Dx) | | | | for Health and | [address] | | | | | [facility] | [phone] | | | | | [place], [place] | | | | | | [address] | | | | | | [phone] | | | +--------+ + + + [...] Rd | | | | | | [place], [place] | | | | | | [address] | | | | | | [phone] | | | | | | | | +--------+---------+ + + + documented as of this encounter Visit Diagnoses + + | Diagnosis | + + | Constipation, unspecified constipation type - Primary | + + documented in this encounter"
--- OUTSIDE RECORDS SUMMARY | ~2019-12-19 | XMS | Encounter Summary ---
Demographics + + + | Address | [address] [address] | | | [place] [address] | + + + | Home Phone [...] + + + | Author | [facility] | | | and [place] | + + + | Organization | [facility] | | [...] + +------+ + | Care Director Of Primary Name | Role | Phone | + +------+ + | Sarah Carroll MD | PCP | | + +------+ + Encounter Details +--------+ + + + + | Date | Type | Department | Care Team | Description | +--------+ + + + + | 06/16/ | Orders Only | [facility] | Jewel Ulloa MD | Essential | | 2019 | | NEPHROLOGY [place] | [address] | hypertension with | | | | [address] | [address] [place], [place] | goal blood pressure | | | | [address] | [address] | less than 130/80 | | | | [place], [place] | | (Primary Dx); | | | | [address] | | Subclinical | | | | [phone] | | hypothyroidism; | | | | [...] [place] | | | | | | [address] | | | | | | | [...]
--- OUTSIDE RECORDS SUMMARY | ~2019-12-19 | XMS | Encounter Summary ---
Demographics + + + | Address | [address] | | | [place] [address] | + + + | Home Phone [...] Author | [facility] | + + + | Organization | [facility] | + + + | Address | Unknown | + + + | Phone | Unavailable | + + + Support + + + + + | Name | Relationship | Address | Phone | + + + + + | Toby Latham | AN[place] | [address] | | | | | [place] | | | | | [address] | | + + + + + Care Team Providers + +------+ + | Care Desktop Architect Name | Role | Phone | [...] | | | | (chronic | PA-C [address] | [address] | | | | | kidney | [address] | [address] | | | | | disease), | [place], [place] | [address] | | | | | stage III | [address] | [place], [place] | | | | | (HCC) | Phone: | [address] | | | | | Malignant | [phone] | Phone: | | | | | neoplasm of | Fax: | [phone] | | | | | colon, | [phone] | Fax: | | | | | unspecified | | [phone] | | | | | part of [...] | | | | | disease), | [place], [place] | | | | | | stage III | [address] | | | | | | (HCC) | Phone: | | | | | | Malignant | [phone] | | | | | | neoplasm of | Fax: | | | | | | colon, | [phone] | | | | | | unspecified [...] Pending | | Radiology | Diagnoses | Mroa, | | | Review | | | CKD | Milton D, | | | | | | (chronic | PA-C [address] | | | | | | kidney | [address] | | | | | | disease), | [place], [place] | | | | | | stage III | [address] | | | | | | (HCC) | Phone: | | | | | | Malignant | [phone] | | | | | | neoplasm of | Fax: | | | | | | colon, | [phone] | | | | | | unspecified [...] | | | | | disease), | [place], [place] | | | | | | stage III | [address] | | | | | | (HCC) | Phone: | | | | | | Malignant | [phone] | | | | | | neoplasm of | Fax: | | | | | | colon, | [phone] | | | | | | unspecified [...] | | | | | Polyneuropat | [facility] | [address] | | | | | hy, | PHYSICIAN | Ave | | | | | unspecified | [facility] | [place], [place] | | | | | | [address] | [address] | | | | | Radiculopath | [address] | Phone: | | | | | y, lumbar | [place] | [phone] | | | | | region Pain | [place], [place] | Fax: | | | | | in left leg | [address] | [phone] | | | | | | Phone: | | | | | | Paresthesia | [phone] | | | | | | of skin | Fax: | | | | | | Anesthesia | [phone] | | | | | | of [...] | | | Ave Mailcode: | Ave [facility], [place] | (chronic kidney | | | | [facility] | [address] | disease), stage III | | | | and Healing, | [phone] | ([facility]); Malignant | | | | [address] | | neoplasm of colon, | | | | [place], [place] | | unspecified part of | | | | [address] | | colon ([facility]); Ataxia; | | | | [phone] | | Lumbar | | | | [...] since 2016 is stable. 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 Persistent left fur finisher weakness, difficulty with fine motor mov ements [...] questionna sarah that will be scanned into Audit[employer]. Current medication list: Current Outpatient Medications Medication [...] pain medication by PCP -Will set up [facility] Spine Surgeon appointment, need MRIs complete prior to appointment and sharif lebron is aware of poor prognosis of chronic neurological deficits and that he is a poor surg ical candidate. I spent at least 45 minutes nigp-im-clwq with the patient. I spent more than 50% of this vi sit in coordination of care and counseling in which we discussed diagnosis, treatment, imagi ng studies and follow-up. Milton Mora PA-C SP[facility] AT [address] Mailcode: [place] [address] [facility] OPEN NOTE [[id number]] P DTdocumented in this encounter Plan of Treatment +--------+---------+ + + + | Date | Type | Specialty | Care Team | Description | +--------+---------+ + + + | 01/20/ | Office | Orthopedics | Richard Harvey, | | | 2019 | Visit | | [address] | | | | | | [address] | | | | | | [place], [place] | | | | | | [address] | | | | | | [phone] | | | | | | | [...]
--- OUTSIDE RECORDS SUMMARY | ~2019-12-19 | XMS | Encounter Summary ---
Demographics + + + | Address | [address] | | | [place] [address] | + + + | Home Phone | | + + + | Preferred Language | Unknown | + + + | Marital Status | Single | + + + | Religion Affiliation | LDS | + + + [...] [place] | | | | | [address] | | + + + + + Care Team Providers + +------+ + | Care Clinical Genetics Laboratory Chief Name | Role | Phone | [...] | | | | | colon | [facility] | [facility] | | | | | Procedures | Rd | Rd | | | | | CONSULT TO | [place], [place] | [place], [place] | | | | | [address] | [address] | [address] | | | | | LOGY | Phone: | Phone: | | | | | CONSULT TO | [phone] | [phone] | | | | | GASTROENTERO | Fax: | Fax: | | | | | LOGY | [phone] | [phone] | + +--------+ + + + + [...] | | colon | [address] | [place] | | | | | Procedures | [place], [place] | [address], [address] | | | | | CONSULT TO | [address] | floor | | | | | GI PROCEDURE | Phone: | [place], [place] | | | | | UNIT: | [phone] | [address] | | | | | COLONOSCOPY | Fax: | Phone: | | | | | | [phone] | [phone] | | | | | | | Fax: | | | | | | | [phone] | + +--------+ + + + + [...] adenoma of | MD Tala | [address] | | | | | colon | [address] | [address] | | | | | | Joel [address] | Mailcode: | | | | | | [place] | [facility] | | | | | | [place] [address] | [facility] and | | | | | | Phone: | Healing, | | | | | | [phone] | [address] | | | | | | Fax: | [place], [place] | | | | | | [phone] | [address] | | | | | | | Phone: | | | | | | | [phone] | | | | | | | Fax: | | | | | | | [phone] | +--------+--------+ + + + + Encounter Details +--------+---------+ + + + | Date | Type | Department | Care Team | Description | +--------+---------+ + + + | 02/05/ | Office | Digestive Health | Tsikitis, | Villous adenoma of | | 2019 | Visit | [place] at [facility] [address] | [address] | colon (Primary Dx) | | | | [address] | [address] | | | | | Mailcode: Center | [facility] [place] | | | | | for Health and | [address] | | | | | Healing, [address] | [phone] | | | | | [place], [place] | | | | | | [address] | | | | | | [phone] | | | +--------+---------+ + + + [...] history per Note of Dr. Carroll from [facility]: 11/18/18: Seen Dr. Cohen for colonoscopy consult and scheduled for procedure at the hospital given his multiple comorbidities. 12/11/18: Onset of right lower back pain after exiting his truck awkwardly. Seen at ED of [facility] for scheduled colonoscopy. Incidentally also seen for [...] Widely patent coloproctectomy. 01/05/19: Dr. Cohen at [facility] and recommended referral to 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 01/08/19: follow up with Dr. Carroll and referred to GI Surgery Dr. Thompson at [facility] REVIEW OF SYSTEMS: As per HPI, [...] Follow up with me LEONARDA Mcgraw, MS3 [facility], [employer] Padilla Ko MD [...] 2019 | Visit | | [address] [facility] | | | | | | [address] | | | | | | [place], [place] | | | | | | [address] | | | | | | [phone] | | | | | | | | +--------+---------+ + + + documented as of this encounter Visit Diagnoses + + | Diagnosis | + + | Villous adenoma of colon - Primary Benign neoplasm of colon | + + documented in this encounter
--- OUTSIDE RECORDS SUMMARY | ~2019-12-19 | XMS | Encounter Summary ---
Demographics + + + | Address | [address] [address] | | | [place] [address] | + + + | Home Phone [...] Team Providers + +------+ + | Care Patient Safety Sitter Name | Role | Phone | + [...] + | 06/09/ | Telephone | [facility] | Callum, | Alvaro (Appointment | | 2018 | | NEPHROLOGY [place] | Gabo Jay | reminder call) | | | | [address] | [employer] | | | | | [address] [place], [place] | | | | | | [address] | | | | | | [phone] | | | +--------+ + + + [...] [place] | | | | | | [address] | | | | | | | | +--------+---------+ + + + documented as of this encounter Visit Diagnoses Not on filedocumented in this encounter"
--- OUTSIDE RECORDS SUMMARY | ~2019-12-19 | XMS | Encounter Summary ---
Demographics + + + | Address | [address] [address] | | | [place] [address] | + + + | Home Phone [...] Team Providers + +------+ + | Care Transfer Clerk Name | Role | Phone | [...] | | [address] | [address] | | | | | [address]BY [address] | [address]SH[address] [facility] [address] | | | | | [place], [place] | [place] [address] | | | | | [address] | [phone] | | | | | [phone] | | | +--------+ + + + [...] [place] | | | | | | [address] | | | | | | | [...] | | | hypokinesis, diastolic function abnormal, Mcfall visually estimates | | | LVEF 40-45%. [...] | | | hypokinesis, diastolic function abnormal, [place] visually estimates | | | LVEF 40-45%. [...] pressures of 5-10mmHg. MEASUREMENTS | | | Wet Process Technician: DBS Authenticated by: Chris Link DO Report [...] | | global hypokinesis, diastolic function abnormal, [place] visually estimates LVEF 40-45%. | | Moderate [...] venous pressures of 5-10mmHg. | | MEASUREMENTS Wet Process Technician: DBSAuthenticated by: Chris Reyes | | Date/Time: 02-16-2016 20:56:07 IMPRESSION: 1. See Dictation. A fib. 2. Moderate | | concentric LVH, mild global hypokinesis, diastolic function abnormal, Mcfall visually | | estimates LVEF 40-45%. Moderate [...] | |MEASUREMENTS | | | | | |Wet Process Technician: DBS | |Authenticated by: Chris Link DO | |Report Date/Time: 02-16-2016 20:56:07 | | | |IMPRESSION: | |1. See Dictation. A fib. 2. Moderate concentric LVH, mild global hypokinesis, diastolic fu nction abnormal, Mcfall visually estimates LVEF 40-45%. Moderate LAE, moderate [...]
--- OUTSIDE RECORDS SUMMARY | ~2019-12-19 | XMS | Encounter Summary ---
Demographics + + + | Address | [address] | | | [place] [address] | + + + | Home Phone [...] [place] | | | | | [address] | | + + + + + Care Team Providers + +------+ + | Care Sales Mgr Name | Role | Phone | + [...] + + + + | 07/13/ | Anesthesia | Endoscopic | Alonzo Brown, | | | 2019 | Event | Procedural Unit at | [address] | | | | | Keenan Cisse [address] | [address] | | | | | [address] | [place], [place] | | | | | [place], | [address] | | | | | 4th floor [place], | [phone] | | | | | [place] [address] | | | | | | [phone] | Valentín Tatum, COMPANY DOCTOR | | | | | | [address] | | | | | | Rosario Robles [place], | | | | | | [place] [address] | | | | | | [phone] | | | | | | | | +--------+ + + + + Anesthesia Record + + + + + | Procedure Name | Responsible | Anesthesia Start | Anesthesia Stop Time | | | Anesthesiologist | Time | | + + + + + | COLONOSCOPY | Alonzo Brown MD | 07/13/19 1428 | 07/13/19 1531 | + + + + + +----+---+ + + | Da | T | Event | Comment | | te | i | | | | | m | | | | | e | | | +----+---+ + + | 12 | 1 | Eq Check | Anesthesia machine checked Equipment verified | | /0 | 4 | | | | 2/ | 2 | | | | 20 | 3 | | | | 19 | | | | +----+---+ + + | | 1 | Pt. Check | Prior to anesthesia start, pt. Identified, examined, chart | | | 4 | | reviewed, PARQ held, anesthetic plan made or approved by | | | 2 | | attending anesthesiologist. NPO status confirmed as appropriate | | | 5 | | for procedure Preoperative evaluation: unchanged | +----+---+ + + | | 1 | An Start | | | | 4 | | | | | 2 | | | | | 8 | | | +----+---+ + + | | 1 | O2 by FM | | | | 4 | | | | | 3 | | | | | 0 | | | +----+---+ + + | | 1 | Vitals | Monitors applied Vital signs checked Patient ready for anesthesia | | | 4 | Checked | | | | 3 | | | | | 1 | | | +----+---+ + + | | 1 | Ready | | | | 4 | | | | | 3 | | | | | 2 | | | +----+---+ + + | | 1 | Abx held | Contraindicated, or not indicated for this procedure, or already | | | 4 | Medical or | receiving antibiotics | | | 3 | Surgical | | | | 3 | Reason | | +----+---+ + + | | 1 | Timeout | | | | 4 | | | | | 3 | | | | | 3 | | | +----+---+ + + | | 1 | Incision | | | | 4 | | | | | 3 | | | | | 5 | | | +----+---+ + + | | 1 | Quick Note | Pt desaturated. Endoscope was withdrawn. Pt sat up, nasal airway | | | 5 | | placed. Able to get EtCO2 waveform, O2 saturation trend upward | | | 1 | | | | | 2 | | | +----+---+ + + | | 1 | Surgery end | | | | 5 | | | | | 1 | | | | | 4 | | | +----+---+ + + | | 1 | Quick Note | Pt denies trouble breathing. | | | 5 | | | | | 2 | | | | | 1 | | | +----+---+ + + | | 1 | Anesthesia | | | | 5 | End | | | | 3 | | | | | 1 | | | +----+---+ + + | | 1 | PACU Rpt | | | | 5 | Given | | | | 3 | | | | | 6 | | | +----+---+ + + +------+ | Meds | +------+ + + + | Name | Total | + + + | lidocaine 2% | 100 mg | + + + | propofol | 140 mg | + + + | alfentanil | 300 mcg | + + + | dexMEDEtomidine (PRECEDEX) 400 | 17.38 mcg | | mcg in NaCl 0.9 % (NS) 100 mL (4 | | | mcg/mL) IV infusion | | + + + | propofol (DIPRIVAN) 200 mg | 574,400 mcg | + + + | PHENYLEPHrine | 300 mcg | + + + | ePHEDrine | 5 mg | + + + | NS | 0 mL | + + + + + | No agents on file. | + + + + | No blood administrations on file. | + + +--------+ + + + | Type | Details | Placement | Removal | +--------+ + + + | Periph | 07/10/19; 0300; Other hospital; | 07/10/19 0300 by | 07/14/19 1251 by | | cherelle | Left; Dorsal; Wrist; 18 g; | Shahid Ruiz RN | Dorinda Leonardo RN | | IV | 07/14/19; 1251; Discharge | | | +--------+ + + + [...] Rd | | | | | | [place], [place] | | | | | | [address] | | | | | | [phone] | | | | | | | | +--------+---------+ + + + documented as of this encounter Visit Diagnoses Not on filedocumented in this encounter Administered Medications + +--------+ +---------+------+------+ | Medication Order | MAR | Action | Dose | Rate | Site | | | Action | Date | | | | + +--------+ +---------+------+------+ | alfentanil (ALFENTA) injection | Given | 07/13/20 | 100 mcg | | | | INTRAPROCEDURE PRN, Starting Mon | | 19 2:50 | | | | | 07/13/19 at 1439, Until Mon | | PM PST | | | | | 07/13/19 at 1536 | | | | | | + +--------+ +---------+------+------+ +-------+ +---------+---+---+ | Given | 07/13/20 | 100 mcg | | | | | 19 2:44 | | | | | | PM PST | | | | +-------+ +---------+---+---+ | Given | 07/13/20 | 100 mcg | | | | | 19 2:39 | | | | | | PM PST | | | | +-------+ +---------+---+---+ +---+---+ | | | +---+---+ + + + + +-------+---+ | dexMEDEtomidine (PRECEDEX) 400 | Rate/Dos | 07/13/20 | 0.1 | 1.88 | | | mcg in NaCl 0.9 % (NS) 100 mL (4 | e Change | 19 2:48 | mcg/kg/h | mL/hr | | | mcg/mL) IV infusion | | PM PST | r | | | | INTRAPROCEDURE CONTINUOUS PRN, | | | | | | | Starting 07/13/19 at 1433, | | | | | | | Until 07/13/19 at 1536 | | | | | | + + + + +-------+---+ +---------+ + + +---+ | New Bag | 07/13/20 | 0.8 | 15 mL/hr | | | | 19 2:33 | mcg/kg/h | | | | | PM PST | r | | | +---------+ + + +---+ +---+---+ | | | +---+---+ + +-------+ +------+---+---+ | ePHEDrine injection | Given | 07/13/20 | 5 mg | | | | INTRAPROCEDURE PRN, Starting Mon | | 19 2:56 | | | | | 07/13/19 at 1456, Until Mon | | PM PST | | | | | 07/13/19 at 1536 | | | | | | + +-------+ +------+---+---+ +---+---+ | | | +---+---+ + +-------+ +--------+---+---+ | lidocaine (XYLOCAINE MPF) 2 % | Given | 07/13/20 | 100 mg | | | | (20 mg/mL) injection | | 19 2:36 | | | | | intravenous, INTRAPROCEDURE PRN, | | PM PST | | | | | Starting Sat07/13/19 at 1436, | | | | | | | Until Sat07/13/19 at 1536 | | | | | | + +-------+ +--------+---+---+ +---+---+ | | | +---+---+ + +-------+ +---------+---+---+ | PHENYLEPHrine 100 mcg/mL IV | Given | 07/13/20 | 100 mcg | | | | syringe INTRAPROCEDURE PRN, | | 19 2:55 | | | | | Starting Sat07/13/19 at 1455, | | PM PST | | | | | Until Sat07/13/19 at 1536 | | | | | | + +-------+ +---------+---+---+ +-------+ +---------+---+---+ | Given | 07/13/20 | 100 mcg | | | | | 19 2:51 | | | | | | PM PST | | | | +-------+ +---------+---+---+ | Given | 07/13/20 | 100 mcg | | | | | 19 2:48 | | | | | | PM PST | | | | +-------+ +---------+---+---+ +---+---+ | | | +---+---+ + + + + +---+---+ | propofol (DIPRIVAN) 200 mg | Rate/Dos | 07/13/20 | 180 | | | | INTRAPROCEDURE CONTINUOUS PRN, | e Change | 19 2:55 | mcg/kg/m | | | | Starting Sat07/13/19 at 1439, | | PM PST | in | | | | Until Sat07/13/19 at 1536 | | | | | | + + + + +---+---+ + + + +---+---+ | Rate/Dose Change | 07/13/20 | 200 | | | | | 19 2:54 | mcg/kg/m | | | | | PM PST | in | | | + + + +---+---+ | Rate/Dose Change | 07/13/20 | 150 | | | | | 19 2:49 | mcg/kg/m | | | | | PM PST | in | | | + + + +---+---+ +---+---+ | | | +---+---+ + +-------+ +-------+---+---+ | propofol (DIPRIVAN) injection | Given | 07/13/20 | 20 mg | | | | intravenous, INTRAPROCEDURE PRN, | | 19 2:52 | | | | | Starting Sat07/13/19 at 1437, | | PM PST | | | | | Until Sat07/13/19 at 1536 | | | | | | + +-------+ +-------+---+---+ +-------+ +-------+---+---+ | Given | 07/13/20 | 20 mg | | | | | 19 2:49 | | | | | | PM PST | | | | +-------+ +-------+---+---+ | Given | 07/13/20 | 20 mg | | | | | 19 2:46 | | | | | | PM PST | | | | +-------+ +-------+---+---+ +---+---+ | | | +---+---+ + +---------+ +---+---+---+ | sodium chloride 0.9 % (NS) IV | New Bag | 07/13/20 | | | | | infusion intravenous, | | 19 2:23 | | | | | INTRAPROCEDURE CONTINUOUS PRN, | | PM PST | | | | | Starting 07/13/19 at 1423, | | | | | | | Until Sat07/13/19 at 1536 | | | | | | + +---------+ +---+---+---+ +---+---+ | | | +---+---+ documented in this encounter"
--- OUTSIDE RECORDS SUMMARY | ~2019-12-19 | XMS | Encounter Summary ---
Demographics + + + | Address | [address] | | | [place] [address] | + + + | Home Phone | | + + + | Preferred Language | Unknown | + + + | Marital Status | Single | + + + | Roman Catholic Affiliation | LDS | + + + | Race | White | + + + | Ethnic Group | Not or | + + + Author + + + | Author | [facility] | + + + | Organization | [facility] | + + + | Address | Unknown | + + + | Phone | Unavailable | + + + Support + + + + + | Name | Relationship | Address | Phone | + + + + + | Toby Latham | ANNA | [address] | | | | | [place] | | | | | [address] | | + + + + + Care Team Providers + +------+ + | Care Organic Extractions Technician Name | Role | Phone | + +------+ + PCP | Unavailable | + +------+ + Encounter Details +--------+ + + + + | Date | Type | Department | Care Team | Description | +--------+ + + + + | 01/14/ | Abstract | Dig[facility] | [facility], Surgery | | | 2019 | | [id number] | | | | | | Doug Grijalva | | | | | | Mailcode: [facility] | | | | | [facility] | | [facility], [address] | | | | | | [facility] [place] | | | | | | [address] | | | | | | [phone] | | | +--------+ + + + [...] | | 2019 | Visit | | [address] | | | | | | [address] | | | | | | [place], [place] | | | | | | [address] | | | | | | [phone] | | | | | | | | +--------+---------+ + + + documented as of this encounter Visit Diagnoses Not on filedocumented in this encounter"
--- OUTSIDE RECORDS SUMMARY | ~2019-12-19 | XMS | Encounter Summary ---
Demographics + + + | Address | [address] [address] | | | [place] [address] | + + + | Home Phone [...] Team Providers + +------+ + | Care Air Conditioning Unit Assembler Name | Role | Phone | + +------+ + | Sarah Carroll MD | PCP | | + +------+ + Encounter Details +--------+ + + + + | Date | Type | Department | Care Team | Description | +--------+ + + + + | 12/18/ | Orders Only | [facility] | Conversion | | | 2019 | | NEPHROLOGY [place] | Transaction, | | | | | [address] | Provider Unknown | | | | | [address] [place], [place] | [phone] | | | | | [address] | (Fax) | | | | | [phone] | | | +--------+ + + + [...] | | | | | [place], [place] | | | | | | [address] | | | | | | | [...]
--- OUTSIDE RECORDS SUMMARY | ~2019-12-19 | XMS | Encounter Summary ---
Demographics + + + | Address | [address] [address] | | | [place] [address] | + + + | Home Phone | | + + + | Preferred Language | Unknown | + + + | Marital Status | Single | + + + | Advent Affiliation | 1077 | + + + [...] Team Providers + +------+ + | Care Movie Projectionist Name | Role | Phone | + +------+ + | Sarah Carroll MD | PCP | | + +------+ + Encounter Details +--------+ + + + + | Date | Type | Department | Care Team | Description | +--------+ + + + + | 07/28/ | Orders Only | [facility] | Jewel Ulloa MD | | | 2018 | | NEPRHOLOGY [place] | [address] | | | | | [address] | [address] [place], [place] | | | | | [address] [place], [place] | [address] | | | | | [address] | | | | | | [phone] | | | +--------+ + + + [...] | | | | | [place] | | | | | | [address] | | | | | | | [...]
--- OUTSIDE RECORDS SUMMARY | ~2019-12-19 | XMS | Encounter Summary ---
Demographics + + + | Address | [address] | | | [place] [address] | + + + | Home Phone [...] [place] | | | | | [address] | | + + + + + Care Team Providers + +------+ + | Care Photo Equipment Technician Name | Role | Phone | + +------+ + PCP | Unavailable | + +------+ + Encounter Details +--------+ + + + + | Date | Type | Department | Care Team | Description | +--------+ + + + + | 05/23/ | Emergency | [facility] Emergency | | | | 2016 | | Department [address] | | | | | | [address] | | | | | | [facility] | | | | | | [place], [place] | | | | | | [address] | | | | | | [phone] | | | +--------+ + + + [...] Rd | | | | | | [place], [place] | | | | | | [address] | | | | | | [phone] | | | | | | | | +--------+---------+ + + + documented as of this encounter Visit Diagnoses Not on filedocumented in this encounter"
--- OUTSIDE RECORDS SUMMARY | ~2019-12-19 | XMS | Encounter Summary ---
Demographics + + + | Address | [address] | | | [place] [address] | + + + | Home Phone [...] [place] | | | | | [address] | | + + + + + Care Team Providers + +------+ + | Care Osteopathic Physician Name | Role | Phone | [...] | | | | | [address] | | | | | | [address] | | | | | | [place], | | | | | | 4th floor [facility] | | | | | | [place] [address] | | | | | | [phone] | | | +--------+ + + + [...] Rd | | | | | | [place], [place] | | | | | | [address] | | | | | | [phone] | | | | | | | | +--------+---------+ + + + documented as of this encounter Visit Diagnoses Not on filedocumented in this encounter"
--- OUTSIDE RECORDS SUMMARY | ~2019-12-19 | XMS | Encounter Summary ---
Demographics + + + | Address | [address] | | | [place] [address] | + + + | Home Phone | | + + + | Preferred Language | Unknown | + + + | Marital Status | Single | + + + | Confucianist Affiliation | LDS | + + + [...] [place] | | | | | [address] | | + + + + + Care Team Providers + +------+ + | Care Hat Mender Name | Role | Phone | + [...] 07/02/ | Telephone | [facility] | [place], | Telephone follow-up | | 2019 | | [address] | MD [address] | | | | | [address] Mailcode: | [address] | | | | | [facility] | [place], [place] | | | | | Health and Healing, | [address] | | | | | Building [address] | [phone] | | | | | [place], [place] | | | | | | [address] | | | | | | [phone] | | | +--------+ + + + [...] Rd | | | | | | [place], [place] | | | | | | [address] | | | | | | [phone] | | | | | | | | +--------+---------+ + + + documented as of this encounter Visit Diagnoses Not on filedocumented in this encounter"
--- OUTSIDE RECORDS SUMMARY | ~2019-12-19 | XMS | Encounter Summary ---
Demographics + + + | Address | [address] | | | [place] [address] | + + + | Home Phone [...] [place] | | | | | [address] | | + + + + + Care Team Providers + +------+ + | Care Diamond Merchant Name | Role | Phone | + +------+ + PCP | Unavailable | + +------+ + Encounter Details +--------+ + + + + | Date | Type | Department | Care Team | Description | +--------+ + + + + | 05/23/ | Emergency | [facility] Emergency | | | | 2016 | | Department [address] | | | | | | [address] | | | | | | [facility] | | | | | | [place], [place] | | | | | | [address] | | | | | | [phone] | | | +--------+ + + + [...] Rd | | | | | | [place], [place] | | | | | | [address] | | | | | | [phone] | | | | | | | | +--------+---------+ + + + documented as of this encounter Visit Diagnoses Not on filedocumented in this encounter"
--- OUTSIDE RECORDS SUMMARY | ~2019-12-19 | XMS | Clinical Summary ---
Demographics + + + | Address | [address] [address] | | | [place] [address] | + + + | Home Phone | | + + + | Preferred Language | Unknown | + + + | Marital Status | Single | + + + | Christian Affiliation | 1077 | + + + | Race | Unknown | + + + | Ethnic Group | Unknown | + + + Author + + + | Author | [email or web address] (Historical as of | | | 03-28-19) | + + + | Organization | [facility] (Historical as of | | | 03-28-19) [...] [place], | | | | | [place] [address] | | + + + + + Care Team Providers + +------+ + | Care Roof Assembler Name | Role | Phone | [...] +------+-------+ + | MEDICAID | [place]ER | [id number] | | | [address] | | | N | | | | [place] | | | [place]FF | | | | [address] | | | DIE PRESSER | | | | | + +--------+ [...] | | al/Fam | | 1 | [phone] [address] [place], | | | [place] | | | [address] | [place] [address] | + +--------+ +--------+ + +
--- OUTSIDE RECORDS SUMMARY | ~2019-12-19 | XMS | Encounter Summary ---
Demographics + + + | Address | [address] | | | [place] [address] | + + + | Home Phone [...] Author + + + | Author | [facility] | + + + | Organization | [facility] | + + + | Address | Unknown | + + + | Phone | Unavailable | + + + Support + + + + + | Name | Relationship | Address | Phone | + + + + + | Toby Latham | ANNA | [address] | | | | | [place] | | | | | [address] | | + + + + + Care Team Providers + +------+ + | Care Bacteriologist Medical Name | Role | Phone | + [...] | unspecified | [address] | [place] | | | | | part of | [address] | Pavilion, 4th | | | | | colon, | Rd | floor | | | | | unspecified | [place], [place] | [place], [place] | | | | | type | [address] | [address] | | | | | Procedures | Phone: | Phone: | | | | | CONSULT TO | [phone] | [phone] | | | | | GI PROCEDURE | Fax: | Fax: | | | | | UNIT: | [phone] | [phone] | | | | | COLONOSCOPY | | | | | | | Priority 2: | | | | | | | 3-4mo | | | + +--------+ + + + + Encounter Details +--------+ + + + + | Date | Type | Department | Care Team | Description | +--------+ + + + + | 07/01/ | [facility] | Digestive Health | [place], | Polyp of colon, | | 2018 | | [address] [address] [address] | MD Charles [address] | unspecified part of | | | | [address] | [address] | colon, unspecified | | | | Mailcode: Center | [place], [place] | type (Primary Dx) | | | | for Health and | [address] | | | | | [facility] 2 | [phone] | | | | | [facility] [place] | | | | | | [address] | | | | | | [phone] | | | +--------+ + + + [...] Rd | | | | | | [place], [place] | | | | | | [address] | | | | | | [phone] | | | | | | | | +--------+---------+ + + + documented as of this encounter Visit Diagnoses + + | Diagnosis | + + | Polyp of colon, unspecified part of colon, unspecified type - Primary | + + documented in this encounter"
--- OUTSIDE RECORDS SUMMARY | ~2019-12-19 | XMS | Encounter Summary ---
Demographics + + + | Address | [address] | | | [place] [address] | + + + | Home Phone [...] [place] | | | | | [address] | | + + + + + Care Team Providers + +------+ + | Care Youth Minister Name | Role | Phone | + [...] | | | [address] | [place], [place] | | | | | [place], | [address] | | | | | 4th floor [place], | [phone] | | | | | [place] [address] | | | | | | [phone] | Valentín Tatum, AIR POLLUTION CONTROL ENGINEER | | | | | | [address] | | | | | | [place], | | | | | | [place] [address] | | | | | | [phone] | | | | | | | [...] Rd | | | | | | [place], [place] | | | | | | [address] | | | | | | [phone] | | | | | | | [...]
--- OUTSIDE RECORDS SUMMARY | ~2019-12-19 | XMS | Encounter Summary ---
Demographics + + + | Address | [address] [address] | | | [place] [address] | + + + | Home Phone [...] Team Providers + +------+ + | Care Resistor Winder Name | Role | Phone | + +------+ + PCP | Unavailable | + +------+ + Encounter Details +--------+ + + + + | Date | Type | Department | Care Team | Description | +--------+ + + + + | 06/05/ | Hospital | [facility] [place] [place] [facility] | Conversion | Diagnosis unknown | | 2016 | Encounter | CONVERSION [address] | Transaction, | | | | | [address] | Provider Unknown | | | | | [place] | | | | | | [address] | | | | | | [phone] | | | +--------+ + + + [...] | | | | | [place] | | | | | | [address] | | | | | | | [...]
--- OUTSIDE RECORDS SUMMARY | ~2019-12-19 | XMS | Encounter Summary ---
Demographics + + + | Address | [address] | | | [place] [address] | + + + | Home Phone [...] [place] | | | | | [address] | | + + + + + Care Team Providers + +------+ + | Care Animal Science Professor Name | Role | Phone | + +------+ + | Sarah Carroll MD | PCP | | + +------+ + Encounter Details +--------+ + + + + | Date | Type | Department | Care Team | Description | +--------+ + + + + | 07/01/ | Transcribe | [facility] | Transcribe | | | 2019 | Orders | [facility] [address] | Encounter, Provider, | | | | | [address] Mailcode: | [address] | | | | | [facility] | [place] [address] | | | | | Health and Healing, | | | | | | Building [address] | | | | | | [place], [place] | | | | | | [address] | | | | | | [phone] | | | +--------+ + + + [...] | | 2019 | Visit | | [address] | | | | | | [address] | | | | | | [place], [place] | | | | | | [address] | | | | | | [phone] | | | | | | | [...]
--- OUTSIDE RECORDS SUMMARY | ~2019-12-19 | XMS | Encounter Summary ---
Demographics + + + | Address | [address] [address] | | | [place] [address] | + + + | Home Phone [...] Providers + +------+ + | Care Web Ui Designer Name | Role | Phone | [...] | | | | | lumbar | [address] | [address] | | | | | region with | [place], | [place], | | | | | neurogenic | [place] [address] | [place] [address] | | | | | claudication | Phone: | Phone: | | | | | Lumbar | [phone] | [phone] | | | | | radiculopath | Fax: | Fax: | | | | | y Bilateral | [phone] | [phone] | | | | | foot-drop | [...] PHYSIATRY [address] | MD [address] | | | | | [address] | [place], [place] | | | | | [place], [place] | [address] | | | | | [address] | | | | | | [phone] | | | +--------+ + + + [...] [place] | | | | | | [address] | | | | | | | [...]
--- OUTSIDE RECORDS SUMMARY | ~2019-12-19 | XMS | Encounter Summary ---
Demographics + + + | Address | [address] [address] | | | [place] [address] | + + + | Home Phone [...] Team Providers + +------+ + | Care Tail Ripper Name | Role | Phone | + +------+ + | Sarah Carroll MD | PCP | | + +------+ + Encounter Details +--------+ + + + + | Date | Type | Department | Care Team | Description | +--------+ + + + + | 02/04/ | Orders Only | [facility] | Conversion | | | 2019 | | NEPHROLOGY [place] | Transaction, | | | | | [address] | Provider Unknown | | | | | [address] [place], [place] | [phone] | | | | | [address] | (Fax) | | | | | [phone] | | | +--------+ + + + [...] | | | | | [place] [place], [place] | | | | | | [address] | | | | | | | [...]
--- OUTSIDE RECORDS SUMMARY | ~2019-12-19 | XMS | Encounter Summary ---
Demographics + + + | Address | [address] [address] | | | [place] [address] | + + + | Home Phone [...] Team Providers + +------+ + | Care Medicaid Billing Specialist Name | Role | Phone | + +------+ + | Sarah Carroll MD | PCP | | + +------+ + Encounter Details +--------+ + + + + | Date | Type | Department | Care Team | Description | +--------+ + + + + | 01/02/ | Orders Only | [facility] | Jewel Ulloa MD | | | 2019 | | NEPRHOLOGY [place] | [address] | | | | | [address] | [address] [place], [place] | | | | | [address] [place], [place] | [address] | | | | | [address] | | | | | | [phone] | | | +--------+ + + + [...] [place] | | | | | | [address] | | | | | | | [...] | | | LAB | | | JORDANIAN | | | | | + + [...]
--- OUTSIDE RECORDS SUMMARY | ~2019-12-19 | XMS | Encounter Summary ---
Demographics + + + | Address | [address] | | | [place] [address] | + + + | Home Phone | | + + + | Preferred Language | Unknown | + + + | Marital Status | Single | + + + | Latter-Day Affiliation | LDS | + + + [...] [address] | | | | | [address] | | + + + + + Care Team Providers + +------+ + | Care Passenger Tire Inspector Name | Role | Phone | [...] Rd | | | | | | [place], [place] | | | | | | [address] | | | | | | [phone] | | | | | | | | +--------+---------+ + + + documented as of this encounter Visit Diagnoses Not on filedocumented in this encounter"
--- OUTSIDE RECORDS SUMMARY | ~2019-12-19 | XMS | Encounter Summary ---
Demographics + + + | Address | [address] | | | [place] [address] | + + + | Home Phone [...] [address] | | | | | [address] | | + + + + + Care Team Providers + +------+ + | Care Barrel Cleaner Name | Role | Phone | [...] | | | | | | MA | | | | | | | COLONOSCOPY, | | | | | | | FLEX, | | | | | | | W/BIOPSY MA | | | | | | | | | | | | | | COLONOSCOPY, | | | | | | | YUNI URIBE BY | | | | | | | SNARE | | | | | | | TECHNIQUE | | | | | | | MA | | | | | | [...] | | | | | | MA ANES LWR | | | | | | | INTST NDSC | | | | | | | NOS | | | +--------+--------+ + + + + Encounter Details +--------+ + + + + | Date | Type | Department | Care Team | Description | +--------+ + + + + | 07/01/ | Hospital | [facility]Special[facility] | [facility] | Encounter | Procedural Unit | MD [address] | | | | | ([facility]) at [facility] [address] | | | | | [address] | [facility] [place] | | | | | Mailcode: [place] | [address] | | | | | [facility] and | [phone] | | | | | [facility], Building 2 | | | | | | [facility] [place] | | | | | | [address] | | | | | | [phone] | | | +--------+ + + + [...] Call the endoscopy department toll free ext. [phone] or After business hours or on weekends and holidays call the Hospital [facility] toll free [phone] Ext. [phone] or and have the GI doctor supervisor carbon paper coating paged. The provider who performed your procedure: [...] 10:15 AM PST PRE PROCEDURE NOTE: MR# [id number] Subjective: Aaron Latham is a 59 y.o. [...] | | 2019 | Visit | | [address] | | | | | | [address] | | | | | | [place], [place] | | | | | | [address] | | | | | | [phone] | | | | | | | [...] PathologistPathology, | | | | | | [facility] | | | | | | [facility] electronic | | | | | | [...] HEALTH + | | | | number [id number]. | | HEALING | | | | [...] | + + + + + | [facility] | [address] | [place] [address] | | | PATHOLOGY | [address] | | | + + + + + | [facility] | [address] | [place] [address] | | | SERVICES, [facility] FOR | | | | | HEALTH + HEALING | | | | + + + + + COLONOSCOPY (07/01/2019 10:08 AM PST) + + | Specimen | + + | | + + + + + | Narrative | Performed At | + + + | MRN: | [facility] | | [id number] Date: 07/01/2019Patient Name: Aaron Justin #: | ENDOSCOPY | | [id number] of : 1960SN: [id number] Type: | | | AmbulatoryRoom: Endo 5Procedure: | | | ColonoscopyIndications: Therapeutic procedure for known | | | colon polypPatient Profile: This is a 59 year old male. Refer to | | | note in patient chart for | | | documentation of history and physical.Providers: CHARLES | | | MD PEDRO (Doctor), CATARINA SOLIMAN RN | | | (Nurse), NGHIA YBARRA (Awning Craftsperson)Referring MD: CHARLES | | | MASON VASQUEZequesting [...] the procedure. The [employer] | | | [id number] Colonoscope #[id number] was introduced | | | through the [...] | | any questions, please contact the pharmacy grad intern. | | | - Clear liquid diet [...]
--- OUTSIDE RECORDS SUMMARY | ~2019-12-19 | XMS | Encounter Summary ---
Demographics + + + | Address | [address] | | | [place] [address] | + + + | Home Phone [...] + + + + + | Toby Ltaham | ANNA | [address] | | | | | [place] | | | | | [address] | | + + + + + Care Team Providers + +------+ + | Care High School Physical Education Teacher Name | Role | Phone | [...] 07/06/ | Telephone | [facility] | [place], | Follow-up Plan | | 2019 | | [facility] [address] | MD [address] | (colonscopy f/u) | | | | [address] Mailcode: | [address] | | | | | [address] for | [place], [place] | | | | | Health and Healing, | [address] | | | | | [facility] 2 | [phone] | | | | | [place], [place] | | | | | | [address] | | | | | | [phone] | | | +--------+ + + + [...] Rd | | | | | | [place], [place] | | | | | | [address] | | | | | | [phone] | | | | | | | | +--------+---------+ + + + documented as of this encounter Visit Diagnoses Not on filedocumented in this encounter"
--- OUTSIDE RECORDS SUMMARY | ~2019-12-19 | XMS | Clinical Summary ---
Demographics + + + | Address | [address] | | | [place] [address] | + + + | Home Phone [...] Author + + + | Author | [facility] INPATIENT REV LOC | [...] | Toby Latham | ECON | [address] [address] | | | | | [place] | | | | | [address] | | + + + + + Care Team Providers + +------+ + | Care Motor Overhauler Name | Role | Phone | + +------+ + | Sarah Carroll MD | PCP | | + +------+ + Source Comments [facility] is fully live on both [facility] Ambulatory and [facility] InPatient.[facility] Allergies No Known Allergies Medications + [...] | | 2019 | Visit | | [address] | | | | | | [address] | | | | | | [place], [place] | | | | | | [address] | | | | | | [phone] | | | | | | | [...] AFFINI | | 20-Pre | 4 | [address] | | | | [place] | | sent | | [place], | | | | | | | | [place] [address] | | +-------+--------+ +--------+ + +------+ + [...] [place] | | | 1 (Home) | [address] | + +--------+ +--------+ + + Advance [...]
--- OUTSIDE RECORDS SUMMARY | ~2019-12-19 | XMS | Encounter Summary ---
Demographics + + + | Address | [address] [address] | | | [place] [address] | + + + | Home Phone [...] Providers + +------+ + | Care Automatic Screwmaker Name | Role | Phone | + +------+ + | Sarah Carroll MD | PCP | | + +------+ + Encounter Details +--------+ + + + + | Date | Type | Department | Care Team | Description | +--------+ + + + + | 07/28/ | Orders Only | [facility] | Jewel Ulloa MD | | | 2018 | | NEPRHOLOGY [place] | [address] | | | | | [address] | [address] [place], [place] | | | | | [address] [place], [place] | [address] | | | | | [address] | | | | | | [phone] | | | +--------+ + + + [...] | | | | | | [address] [place] | | | | | | [address] | | | | | | | [...]
--- OUTSIDE RECORDS SUMMARY | ~2019-12-19 | XMS | Encounter Summary ---
Demographics + + + | Address | [address] [address] | | | [place] [address] | + + + | Home Phone [...] Team Providers + +------+ + | Care Anodic Treater Name | Role | Phone | + [...] + + | 07/10/ | Telephone | [facility] | Patrice Cross MD | Other (Lab order) | | 2017 | | [address] [place] | [address] | | | | | [address] [place], [place] | [address] [place] | | | | | [address] | [address] | | | | | [phone] | | | +--------+ + + + [...] [place] | | | | | | [address] | | | | | | | [...]
--- OUTSIDE RECORDS SUMMARY | ~2019-12-19 | XMS | Encounter Summary ---
Demographics + + + | Address | [address] [address] | | | [place] [address] | + + + | Home Phone [...] Team Providers + +------+ + | Care Lift Operator Name | Role | Phone | [...] [place] | | | | | [address] | [address] | | | | | [phone] | | | +--------+ + + + [...] [place] | | | | | | [address] | | | | | | | | +--------+---------+ + + + documented as of this encounter Visit Diagnoses Not on filedocumented in this encounter"
--- OUTSIDE RECORDS SUMMARY | ~2019-12-19 | XMS | Encounter Summary ---
Demographics + + + | Address | [address] [address] | | | [place] [address] | + + + | Home Phone [...] Team Providers + +------+ + | Care Certified Surgical First Assistant Name | Role | Phone | [...] PHYSIATRY [address] | MD [address] | | | | | [address] | [place], [place] | | | | | [place], [place] | [address] | | | | | [address] | | | | | | [phone] | | | +--------+ + + + [...] [place] | | | | | | [address] | | | | | | | | +--------+---------+ + + + documented as of this encounter Visit Diagnoses Not on filedocumented in this encounter"
--- OUTSIDE RECORDS SUMMARY | ~2019-12-19 | XMS | Encounter Summary ---
Demographics + + + | Address | [address] [address] | | | [place] [address] | + + + | Home Phone [...] Team Providers + +------+ + | Care Flatbed Stitcher Name | Role | Phone | + +------+ + | Sarah Carroll MD | PCP | | + +------+ + Encounter Details +--------+ + + + + | Date | Type | Department | Care Team | Description | +--------+ + + + + | 10/16/ | Orders Only | [facility] | Jewel Ulloa MD | | | 2019 | | NEPHROLOGY [place] | [address] [place] | | | | | [address] [place] | [address] [place], [place] | | | | | [address] [place], [place] | [address] | | | | | [address] | | | | | | [phone] | | | +--------+ + + + [...] | | | | | [address] [place] | | | | | | [address] | | | | | | | [...] | | | LAB | | | [place] | | | | | + + [...]
--- OUTSIDE RECORDS SUMMARY | ~2019-12-19 | XMS | Encounter Summary ---
Demographics + + + | Address | [address] [address] | | | [place] [address] | + + + | Home Phone [...] Providers + +------+ + | Care It Analyst Name | Role | Phone | [...] + + | 12/10/ | Documentati | [facility] | Nolen, | Results (12/10/19) | | 2020 | on | NEPHROLOGY [place] | [facility] | | | | | [address] [place] | Nurse Staff | | | | | [address] [place], [place] | | | | | | [address] | | | | | | [phone] | | | +--------+ + + + [...] | | | | | [place] | | | | | | [address] | | | | | | | [...]
--- OUTSIDE RECORDS SUMMARY | ~2019-12-19 | XMS | Encounter Summary ---
Demographics + + + | Address | [address] | | | [place] [address] | + + + | Home Phone [...] + + + | Author | [facility] | + + + | Organization | [facility] | + + + | Address | Unknown | + + + | Phone | Unavailable | + + + Support + + + + + | Name | Relationship | Address | Phone | + + + + + | Toby Latham | ANNA | [address] | | | | | [place] | | | | | [address] | | + + + + + Care Team Providers + +------+ + | Care Board Turner Name | Role | Phone | + [...] Pre-operative | | 2019 | cheduled | [facility] at | | evaluation | | | | [facility] | | | | | | [address] | | | | | | Mail Code: OC8PM | | | | | | [facility] | | | | | | and Healing, | | | | | | Building [address] | | | | | | [place], [place] | | | | | | [address] | | | | | | [phone] | | | +--------+ + + + [...] have not received them, contact Endoscopy at [phone]. Eating/Drinking Instructions: Follow instructions provided by [facility] Endoscopy. You should have received these instruction s by mail or email. If you have not received them, contact Endoscopy at [phone]. General Medications Instructions Oral iron: If you [...] /Eliquis, rivaroxaban/Xarelto, dabigatran/Pradaxa, or Plavix/Brilinta, your prescriber ([facility] doctor, seam presser, anticoagulation clinic, ex.) should be the one [...] of your procedu re. Procedure check-in location: [facility] Procedure Check in Time: [...] ch as Uber/Lyft), or public transportation. An Uber/Lyft/light truck driver does not count as the [...] it is after office hours, call the [facility] pocket machine operator at [phone] and ask them to page the on-c [...] [address] | | | | | | [place], [place] | | | | | | [address] | | | | | | [phone] | | | | | | | | +--------+---------+ + + + documented as of this encounter Visit Diagnoses Not on filedocumented in this encounter
--- OUTSIDE RECORDS SUMMARY | ~2019-12-19 | XMS | Encounter Summary ---
Demographics + + + | Address | [address] [address] | | | [place] [address] | + + + | Home Phone [...] Providers + +------+ + | Care Commercial Front Load Operator Name | Role | Phone | + +------+ + | Sarah Carroll MD | PCP | | + +------+ + Encounter Details +--------+---------+ + + + | Date | Type | Department | Care Team | Description | +--------+---------+ + + + | 06/15/ | Office | [facility] | Jewel Ulloa MD | Chronic kidney | | 2019 | Visit | NEPHROLOGY [place] | [address] [place] | disease, stage 3 | | | | [address] | [address] [place], [place] | (HCC) (Primary Dx); | | | | [address] | [address] | Anemia of chronic | | | | [place], [place] | | renal failure, stage | | | | [address] | | 3 (moderate) ([facility]); | | | | [phone] | | Persistent | | | | [...] | | 59.9 in adult ([facility]); | | | | | | Essential [...] RFP, CBC, uric acid, iPTH, Urine total ekygjua-oh-iiewmvbbqx ratio before he comes back in 6 [...] RFP, CBC, uric acid, iPTH, Urine total kcpqmrh-us-dmopbsmnxl ratio before he comes back in 6 [...] concerns. Truly yours, Jewel Ulloa MD FACP [facility], [facility] documented in this enco unter Plan [...] [place] | | | | | | [address] | | | | | | | [...] 50.0 to 59.9 in adult ([facility]) | + + | Essential hypertension with goal blood pressure less than 130/80 | + + | Bilateral leg edema Edema | + + | Hyperuricemia Other abnormal blood chemistry | + + documented in this encounter
--- OUTSIDE RECORDS SUMMARY | ~2019-12-19 | XMS | Encounter Summary ---
Demographics + + + | Address | [address] [address] | | | [place] [address] | + + + | Home Phone | | + + + | Preferred Language | Unknown | + + + | Marital Status | Single | + + + | Jainism Affiliation | [phone] | + + + [...] Team Providers + +------+ + | Care Truck Body Builder Apprentice Name | Role | Phone | [...] Services | Services | Surgery | MD Cuhck | | | | Required | | follow-up | [address] | [address] | | | | | | | [place] | | | | | | | | | | | | | | Phone: | | | | | | | [phone] | | | | | | | Fax: | | | | | | | [phone] | | +--------+ + + + + [...] | | | neoplasm of | | [phone] | | | | | sigmoid | | Fax: | | | | | colon (HCC) | | [phone] | | | | | [C18.7] | | | | | | | Procedures | | | | | | | OR PART | | | | | | [...] + + | 08/16/ | Hospital | [facility] | Mehul Kinsey, | Surgery follow-up | | 2018 - | Encounter | [facility] | [address] | (Primary Dx) | | | | SURGICAL [address] | [place] | | | 08/23/ | | [place] | [phone] | | | 2018 | | [address] | | | | | | [phone] | | | +--------+ + + + [...] Electronically signed by: Oumou Kinsey, 08/22/2017 6:[address] [facility] documented in this encounter Discharge Instructions Instructions Gretel Peña RN - 08/23/2017 [facility] Patient Belongings Aaron Latham 1960 Valuables Dentures: None Vision - Corrective Lenses: None Hearing Aid: None Jewelry: None Clothing: Pants, Shirt, Footwear ( Duffel/CPAP/CANE/Hospital provided bag with clothing sen t to PACU pt. storage bins) Other Valuables: CPAP/BiPAP, Secured on Unit Other Valuables: None Home Medications: None Patient Signature: Clinician/Global Account Manager Signature: Incision Care: Abdomen Dressing your [...] by your healthcare provider Date Last Reviewed: 07/12/201619992112-3523 [employer]. [address] [place] [address], [place] [address]. All righ ts reserved. This information is [...] You may c ough up blood. 2015 [employer] All illustrations and images included in CareNotes a re the copyrighted property of [employer] or [employer]. documented in this encounter Medications at Time [...] 08/23/17 0708/23/17 07 - 08/24/17 0700 Shift 1994-6253 8345-4932 24 Hour Total 1090-7985 3500-6790 24 Hour Total I N T A [...] they do not service the area in [place] where patient lives. Called [facility] in [place]. Made referral. They will verify insurance and call back hopefully in am. Spoke with pt and his mother Toby. Transport difficulties for discharge today, but their fr iend should be at [facility] at 1000 08/23. 18 4:26 PM Sasha [...] with her in her mobile home in [place], [place]. She is agreeable to home health and after review of choice s, chose [facility]. Referral made to [facility] by voicemail and fa x. Will await response from them on whether they can follow; would need to call them when pt d/c's but otherwise they can follow in [facility]. Pt will have a friend pick [...] 08/20/17 0708/20/17 07 - 08/21/17 0700 Shift 2389-4029 1610-5225 24 Hour Total 3294-5066 8003-0807 24 Hour Total I N T A [...] data: No results found. Eda Marrero V, CORRAL BOSS - 08/20/2017 4:20 AM PSTPt refused to [...] 0700 08/19/17 07 - 08/20/17 0700 Shift 3404-9684 3684-5519 24 Hour Total 9466-0667 4884-5123 24 Hour Total I N T A [...] (8.9) 2675 (17) 4075 (26) NET -528 -2007 -9686 Weight (kg) 156.9 156.9 156.9 156.9 156.9 [...] - 08/18/17 0708/18/17700 - 08/19/17 07 Shift 4419-1331 3773-6058 24 Hour Total 3413-0969 5053-4201 24 Hour Total I N T A [...] - 08/17/17 0708/17/17700 - 08/18/17 07 Shift 4762-5451 24 Hour Total 4617-3779 2554-3767 24 Hour Total I N T A [...] U T P U T Urine (mL/kg/hr) 865 252 9515 (0.7) 1300 Blood 150 Shift Total (mL/kg) [...] | | | | | [place] | | | | | | [address] | | | | | | | [...] | | | | | PST | ([facility]) | | + +--------+ + + + [...] + + | [facility] | [address] | [place] [address] | | | [facility] | | | | [...] + | [facility] | [address] | [place] [address] | | | [facility] | [...] + + | Glucose | 149 (H)Comment: Chinese | 65 - 99 mg/dL | [facility] | | | | Diabetes Association | [...] + | [facility] | [address] | [place] [address] | | | [facility] | | | | | [...] Physician: Mehul KINSEY Copy to: [facility] | | DIAGNOSIS: Colon, sigmoid, [...] cm to 0.5 cm in greatest dimension. Grill Prep Cook | | | sections are submitted as [...] the pathologic diagnosis. A: | | | [id number], 83943, 23300, 39062, 26797(e) | | | PROCEDURES/ADDENDA SPECIAL STAINS DIAGNOSIS: [...] and their performance characteristics determined by [facility]. This test is used for clinical | | | purposes. It should not be regarded as investigational or for | | | research. [facility] is certified under the Clinical | | | Laboratory Improvement Amendments of 1988 (CLIA) as qualified to | | | perform high complexity clinical laboratory testing. Comment: | | | Breast predictive markers have not been validated on decalcified | | | specimens. Bladimir Staley MD Testing performed | | | at: [facility] | | | Michelle Arredondo, Director [address] [place] [address] [place] [address] | | | [address] | | + + + + + + + + | Performing | Address | City/State/Zipcode | Phone Number | | Organization | | | | + + + + + | [facility] | [address] | [place] [address] | | | [facility] | | | | [...] + + | Glucose | 113 (H)Comment: Chinese | 65 - 99 mg/dL | [place] [...] + + | [facility] | [address] | [place] [address] | | | [facility] | | | | | [...] + | [facility] | [address] | [place] [address] | | | [facility] | [...] + | [facility] | [address] | [place] [address] | | | [facility] | | | | | [...] + + | [facility] | [address] | [place] [address] | | | [facility] | [...] | t Upper | | Units, Subcutaneous, DRY WALL INSTALLATIONS MECHANIC, | | AM PST | | | [...] | | | | (DILAUDID) 1 mg/mL APPLICATION DBA | | 18 8:26 | | | | | Intravenous, CONTINUOUS, Starting | | AM PST | | | | | 08/16/17 at 1530, for adult | | | | | | | patients 65 years and older OR | | | | | | | risk of sleep apnea, Loading | | | | | | | Dose(mg): 0, Starting APPLICATION DBA | | | | | | | Dose(mg): 0.1, Incremental | | | | | | | Increase APPLICATION DBA Dose(mg): 0.1, | | | | | | | Maximum APPLICATION DBA Dose(mg): 0.2, | | | | | [...] policy and contact | | | provider aeronautical research engineer, | | + +---+ | | | [...]
--- OUTSIDE RECORDS SUMMARY | ~2019-12-19 | XMS | Encounter Summary ---
Demographics + + + | Address | [address] | | | [place] [address] | + + + | Home Phone [...] Author + + + | Author | [facility] | + + + | Organization | [facility] | + + + | Address | Unknown | + + + | Phone | Unavailable | + + + Support + + + + + | Name | Relationship | Address | Phone | + + + + + | Toby Latham | ANNA | [address] | | | | | [place] | | | | | [address] | | + + + + + Care Team Providers + +------+ + | Care Wind Operations Manager Name | Role | Phone [...] SARAH Gil | | | | | [place], [place] | [address] | | | | | [address] | [place], [place] | | | | | [phone] | [address] | | | | | | [phone] | | | | | | | [...] Rd | | | | | | [place], [place] | | | | | | [address] | | | | | | [phone] | | | | | | | | +--------+---------+ + + + documented as of this encounter Visit Diagnoses Not on filedocumented in this encounter"
--- OUTSIDE RECORDS SUMMARY | ~2019-12-19 | XMS | Encounter Summary ---
Demographics + + + | Address | [address] [address] | | | [place] [address] | + + + | Home Phone [...] Team Providers + +------+ + | Care Assembly Line Robot Operator Name | Role | Phone | + +------+ + | Sarah Carroll MD | PCP | | + +------+ + Encounter Details +--------+ + + + + | Date | Type | Department | Care Team | Description | +--------+ + + + + | 01/22/ | Orders Only | [facility] | Mauliktayla Ileana | | | 2017 | | CARDIOLOGY [place] | [address] | | | | | [address] | [address] | | | | | [place], [place] | [place] [address] | | | | | [address] | [phone] | | | | | [phone] | | | +--------+ + + + [...] [place] | | | | | | [address] | | | | | | | [...]
--- OUTSIDE RECORDS SUMMARY | ~2019-12-19 | XMS | Encounter Summary ---
Demographics + + + | Address | [address] [address] | | | [place] [address] | + + + | Home Phone [...] Team Providers + +------+ + | Care Groundhand Name | Role | Phone | + +------+ + | Sarah Carroll MD | PCP | | + +------+ + Encounter Details +--------+ + + + + | Date | Type | Department | Care Team | Description | +--------+ + + + + | 01/30/ | Telephone | [facility] | Patrice Cross MD | | | 2018 | | [address] | [address] | | | | | [address] | [address] [place] | | | | | [place], [place] | [address] | | | | | [address] | | | | | | [phone] | | | +--------+ + + + [...] | | | | | [place] | | | | | | [address] | | | | | | | | +--------+---------+ + + + documented as of this encounter Visit Diagnoses Not on filedocumented in this encounter"
--- OUTSIDE RECORDS SUMMARY | ~2019-12-19 | XMS | Encounter Summary ---
Demographics + + + | Address | [address] | | | [place] [address] | + + + | Home Phone [...] [place] | | | | | [address] | | + + + + + Care Team Providers + +------+ + | Care Sql Report Analyst Name | Role | Phone | [...] SARAH Gil | | | | | [place], [place] | [address] | | | | | [address] | [place], [place] | | | | | [phone] | [address] | | | | | | [phone] | | | | | | | [...] Rd | | | | | | [place], [place] | | | | | | [address] | | | | | | [phone] | | | | | | | | +--------+---------+ + + + documented as of this encounter Visit Diagnoses Not on filedocumented in this encounter"
--- OUTSIDE RECORDS SUMMARY | ~2019-12-19 | XMS | Encounter Summary ---
Demographics + + + | Address | [address] [address] | | | [place] [address] | + + + | Home Phone [...] Providers + +------+ + | Care Yarn Bleaching Machine Operator Name | Role | Phone [...] | | | | | | | [phone] | | | | | | | Fax: | | | | | | | [phone] | | +--------+ + + + + [...] | | | neoplasm of | | [phone] | | | | | sigmoid | | Fax: | | | | | colon (HCC) | | [phone] | | | | | [C18.7] | [...] + + | 08/16/ | Hospital | [facility] | Mehul Kinsey, | Surgery follow-up | | 2018 - | Encounter | [facility] | [address] | (Primary Dx) | | | | SURGICAL [address] | [place] | | | 08/23/ | | [place] | [phone] | | | 2018 | | [address] | | | | | | [phone] | | | +--------+ + + + [...] Electronically signed by: Oumou Kinsey, 08/22/2017 6:48 [facility] documented in this encounter Discharge [...] Valuables: None Home Medications: None Patient Signature: Clinician/Social Service Liaison Signature: Incision Care: Abdomen Dressing your incision [...] by your healthcare provider Date Last Reviewed: 07/12/201619994378-4751 [employer]. [address] [place] [address], [place] [address]. All righ ts reserved. This information is [...] You may c ough up blood. 2015 [employer] All illustrations and images included in CareNotes a re the copyrighted property of [employer] or [employer]. documented in this encounter Medications at Time [...] 08/23/17 0708/23/17 07 - 08/24/17 0700 Shift 0759-1455 3598-9181 24 Hour Total 7478-7702 6684-6046 24 Hour Total I N T A [...] they do not service the area in [place] where patient lives. Called [facility] in [place]. Made referral. They will verify insurance and call back hopefully in am. Spoke with pt and his mother Toby. Transport difficulties for discharge today, but their fr iend [facility] at [facility] at 1000 08/23. 18 4:26 PM Sasha [...] with her in her mobile home in [place], [place]. She is agreeable to home health and after review of choice s, chose [facility]. Referral made to [facility] by voicemail and fa x. Will await response from them on whether they can follow; would need to call them when pt d/c's but otherwise they can follow in [facility]. Pt will have a friend pick him [...] 08/20/17 0708/20/17 07 - 08/21/17 0700 Shift 8709-2011 8223-9403 24 Hour Total 7948-4172 8243-5839 24 Hour Total I N T A [...] data: No results found. Eda Marrero V, DESIGN ENGINEER AGRICULTURAL EQUIPMENT - 08/20/2017 4:20 AM PSTPt refused to [...] 0700 08/19/17 07 - 08/20/17 0700 Shift 7469-2758 7425-9843 24 Hour Total 7733-3500 0743-1382 24 Hour Total I N T A [...] 1400 (8.9) 2675 (17) 4075 (26) NET -526 -8848 -1530 Weight (kg) 156.9 156.9 156.9 156.9 156.9 [...] - 08/18/17 0708/18/17700 - 08/19/17 07 Shift 5441-0339 5226-5937 24 Hour Total 3963-6857 6530-2649 24 Hour Total I N T A [...] - 08/17/17 0708/17/17700 - 08/18/17 07 Shift 4548-2204 24 Hour Total 3754-4571 2875-4244 24 Hour Total I N T A [...] U T P U T Urine (mL/kg/hr) 670 473 3450 (0.7) 1300 Blood 150 Shift Total (mL/kg) [...] | | | | | [place] | | | | | | [address] | | | | | | | [...] | | | | | PST | ([facility]) | | + +--------+ + + + [...] + + | [facility] | [address] | [place] [address] | | | [facility] | | | | | [...] + | [facility] | [address] | [place] [address] | | | [facility] | [...] + + | Glucose | 149 (H)Comment: Vietnamese | 65 - 99 mg/dL | [facility] | | | | Diabetes Association | [...] + + | [facility] | [address] | [place] [address] | | | [facility] | | | | | LABORATORY [...] Completed: 08/20/2017 Physician: Mehul KINSEY Copy to: [facility] | | DIAGNOSIS: Colon, sigmoid, segmental resection: [...] cm to 0.5 cm in greatest dimension. Translator And Interpreter | | | sections are submitted as [...] the pathologic diagnosis. A: | | | [id number], [id number], [id number], [id number], [id number](e) | | | PROCEDURES/ADDENDA SPECIAL STAINS DIAGNOSIS: [...] developed and their performance characteristics determined by [facility]. This test is used for clinical | | | purposes. It should not be regarded as investigational or for | | | research. [facility] is certified under the Clinical | | | Laboratory Improvement Amendments of 1988 (CLIA) as qualified to | | | perform high complexity clinical laboratory testing. Comment: | | | Breast predictive markers have not been validated on decalcified | | | specimens. Bladimir Staley MD Testing performed | | | at: [facility] | | | Michelle Arredondo, Director [address] [place] [address] [place] [address] | | | [address] | | + + + + + + + + | Performing | Address | City/State/Zipcode | Phone Number | | Organization | | | | + + + + + | [facility] | [address] | [place] [address] | | | [facility] | | | | | [...] + + | Glucose | 113 (H)Comment: Vietnamese | 65 - 99 mg/dL | [facility] [...] + + | [facility] | [address] | [place] [address] | | | [facility] | | | | | LABORATORY [...] + | [facility] | [address] | [place] [address] | | | [facility] | [...] + | [facility] | [address] | [place] [address] | | | [facility] | | | | | LABORATORY [...] + + | [facility] | [address] | [place] [address] | | | [facility] | [...] | t Upper | | Units, Subcutaneous, PROPERTY OFFICER, | | AM PST | | | [...] | | | | (DILAUDID) 1 mg/mL BLACKTOP SPREADER | | 18 8:26 | | | | | Intravenous, CONTINUOUS, Starting | | AM PST | | | | | 08/16/17 at 1530, for adult | | | | | | | patients 65 years and older [place] | | | | | | | risk of sleep apnea, Loading | | | | | | | Dose(mg): 0, Starting BLACKTOP SPREADER | | | | | | | Dose(mg): 0.1, Incremental | | | | | | | Increase BLACKTOP SPREADER Dose(mg): 0.1, | | | | | | | Maximum BLACKTOP SPREADER Dose(mg): 0.2, | | | | | [...] policy and contact | | | provider weatherization installer, | | + +---+ | | | [...]
--- OUTSIDE RECORDS SUMMARY | ~2019-12-19 | XMS | Encounter Summary ---
Demographics + + + | Address | [address] | | | [place] [address] | + + + | Home Phone [...] [place] | | | | | [address] | | + + + + + Care Team Providers + +------+ + | Care Woodwinds Teacher Name | Role | Phone | [...] | | | | [facility] | | | | | | Hospital Admitting | | | | | | Desk Located on the | | | | | | 9th floor | | | | | | [place], [place] | | | | | | [address] | | | +--------+ + + + [...] Rd | | | | | | [place], [place] | | | | | | [address] | | | | | | [phone] | | | | | | | | +--------+---------+ + + + documented as of this encounter Visit Diagnoses Not on filedocumented in this encounter"
--- OUTSIDE RECORDS SUMMARY | ~2019-12-19 | XMS | Encounter Summary ---
Demographics + + + | Address | [address] [address] | | | [place] [address] | + + + | Home Phone [...] Team Providers + +------+ + | Care Program Mgr Name | Role | Phone | [...] | | | | Peritoneal | | [address] Phone: | | | | | adhesion | | [phone] | | | | | Procedures | | Fax: | | | | | [place] | | [phone] | | | | | BOWEL | | | | | | | ADHESION,ENT | | | | | | | EROLYSIS [place] | | | | | | | [...] | | | | [place] | [address] | LAPAROSCOPIC LYSIS | | | | [address] | | OF ADHESIONS | | | | [phone] | | | +--------+---------+ + + + [...] might be different from t he original. [facility] UROLOGY DISCHARGE SUMMARY Patient Name: Lily [...] COUMADIN Discontinued Medications [place] Follow-Up: 1. [facility] in 1 week. Please call during business hours to set up your urology follow up appointm ent. Electronically Signed by: Patrice Cross MD, 06/16/2018 7:42 [facility] documented in this encou nter Discharge Instructions Instructions Teresita Rodgers RN - 06/16/2018Formatting of this note might be different f rom the original. [facility] DISCHARGE INSTRUCTIONS FOLLOWING LAPAROSCOPIC REMOVAL OF [...] CONTACT INFORMATION: - [facility] Office Number: [facility] Office: [facility] Office: FOLLOWUP INFORMATION: - Dr. Cross [...] Weakness, dizziness, or fainting Date Last Reviewed: 05/12/201619995577-2015 [employer]. [address] [place] [address]. All righ ts reserved. This information is [...] out or is dislodged Date Last Reviewed: 08/12/201619999642-6036 [employer]. [address] [place] [address], [place] [address]. All righ ts reserved. This information is not intended as a substitute for professional medical care. Always follow your healthcare professional's instructions. [facility] Patient Belongings Lily Valentin 1960 Valuables Dentures: [...] Were Given To: [id number] Patient Signature: Clinician/Computer Engineer Signature: documented in this encounter Medications [...] 11:59 AM PSTPt has d/c orders to [place] [facility]. Pt h as sacral friction [...] MEDICAL CENTER UROLOGY DAILY PROGRESS NOTE ID: Lliy Valentin is a 58 y.o. male currently [...] Signed by: Xavier Yip PA-C, 06/19/2018 7:40 [facility] Sasha Blevins, [facility] - 06/18/2018 4:52 PM PSTSOCIAL WORK D/C PLAN: SNF ([facility]) vs home NEXT STEPS: [facility] SNF in [place], [place] has accepted pt pending insurance authorization. [...] d/c to a SNF. SW called to [facility]F and they are yash winchester. SW spoke to [facility], Director at [facility]. She stated that pt is not appropr iate for home health. She recommends SNF. She also stated that pt's insurance is difficult t o work with and only authorized 1 home health visit and it took 10 plus days to get auth'ed for any other home health visits. ASSESSMENT/CHART REVIEW: 58 year old male with [employer] [place] insurance from [place]. Pt lives with his elderly mother. Pt is bariatric. D/C TRANSPORT: jasson Matta- [phone]. SW originally asked for him to pick [...] support at home. CONTACTS: Toby Valentin, mother- [phone] Electronically signed by JOSH Mcbride 06/18/2018 4:52 [...] 4:35 PM PSTSOCIAL WORK D/C PLAN: SNF ([facility]) vs home? NEXT STEPS: Need PT to re-evaluate for disposition. PT can call this SW at [phone] to discuss d/c plan satya concerns. Awaiting returned call from [facility] SNF admissions ([phone]) re: if pt wo uld be appropriate [...] d/c to a SNF. SARAH called to [facility] SNF and they a re reviewing. SARAH spoke to Angelika, Director at [facility]. She stated that pt is not appropr iate for home health. She recommends SNF. She also stated that pt's insurance is difficult t o work with and only authorized 1 home health visit and it took 10 plus days to get auth'ed for any other home health visits. ASSESSMENT/CHART REVIEW: 58 year old male with [employer] [place] insurance from [place]. Pt lives with his elderly mother. Pt is bariatric. D/C TRANSPORT: jasson Matta- [phone]. SARAH originally asked for him to pick [...] support at home. CONTACTS: Toby Valentin, mother- [phone] Electronically signed by JOSH Mcbride 06/17/2018 4:38 PM Kasia Stroud RN - 06/17/2018 11:33 AM PSTFormatting of this no te might be different from the original. [facility] Wound, Ostomy, & Continence Nursing Note [...] Signed by: Patrice Cross MD, 06/17/2018 8:05 [facility] Patrice Ag MD - 06/16 7:42 AM [...] Signed by: Patrice Cross MD, 06/16/2018 7:42 [facility] Jack Lewis MD - 06/15/2018 8:00 AM [...] 36 sec IMAGING: All images reviewed by co NEDA08/15/2017 Large amount of gas in intestines, [...] Signed by: Xavier Yip PA-C, 06/13/2018 12:20 [facility] Associated attestation - Patrice Cross MD - [...] Signed by: Patrice Cross MD, 06/12/2018 5:33 [facility] documented in this encou nter Plan of Treatment +--------+---------+ + + + | Date | Type | Specialty | Care Team | Description | +--------+---------+ + + + | 03/17/ | Office | Cardiology | Lorraine Clifton DO | | | 2019 | Visit | | [address] | | | | | | [place] | | | | | | [id number] | | | | | | | [...] | | | | to 3.5Performed by [facility] | | LABORATORY | | | | [address], | | [place] | | | | [place] [address] | | | | + + + + + + + + | Specimen | + + | Blood specimen | | (specimen) | + + + + + + + | Performing | Address | City/State/Zipcode | Phone Number | | Organization | | | | + + + + + | [facility] | [address] | [place] [address] | | | [facility] | | | | | LABORATORY [...] [facility] | | | | Performed by [facility] [address] | | SACRED | | | | [address] [place] | | HEART | | | | [address] | | MEDICAL | | | | [...] + + | [facility] | [address] | [place] [address] | | | [facility] | | | | | LABORATORY AMO | | | | + + + [...] | | | | to 3.5Performed by [facility] | | LABORATORY | | | | [address], | | [place] | | | | [place] [address] | | | | + + + + + + + + | Specimen | + + | Blood specimen | | (specimen) | + + + + + + + | Performing | Address | City/State/Zipcode | Phone Number | | Organization | | | | + + + + + | [facility] | [address] | [place] [address] | | | [facility] | | | | | STEPHEN [...] | | | | to 3.5Performed by [facility] | | LABORATORY | | | | [address], | | [place] | | | | [place] [address] | | | | + + + + + + + + | Specimen | + + | Blood specimen | | (specimen) | + + + + + + + | Performing | Address | City/State/Zipcode | Phone Number | | Organization | | | | + + + + + | SUSIEAKILAH [facility] | [address] | [place] [address] | | | [facility] | | | | | LABORATORY [...] [facility] | | | | Performed by [facility] [address] | | SACRED | [...] [address] | [place] [address] | | | [facility] | [...] | | | | to 3.5Performed by [facility] | | LABORATORY | | | | [address], [place], | | [place] | | | | [place] [address] | | | | + + + + + + + + | Specimen | + + | Blood specimen | | (specimen) | + + + + + + + | Performing | Address | City/State/Zipcode | Phone Number | | Organization | | | | + + + + + | [facility] | [address] | [place] [address] | | | [facility] | | | | | STEPHEN [...] | | MEDICAL | | | | [facility] [address], | | [place] | | | | [place] [address] | | LABORATORY | | | | [...] + + | PROVIDEDEYSIE [facility]CR[facility] | [address] | [place] [address] | | | [facility] | | | | | [...] | | MEDICAL | | | | [facility] [address], | | CENTER | | | | [place] [address] | | LABORATORY | | | | [...] + + | [facility] | [address] | [place] [address] | | | [facility] | | | | | LABORATORY [...] | | | | to 3.5Performed by [facility] | | LABORATORY | | | | [address], | | [place] | | | | [place] [address] | | | | + + + + + + + + | Specimen | + + | Blood specimen | | (specimen) | + + + + + + + | Performing | Address | City/State/Zipcode | Phone Number | | Organization | | | | + + + + + | [facility] | [address] | [place] [address] | | | [facility] | | | | | LABORATORY [...] | | | | | seconds.Performed by [facility] | | | | | | [address], | | | | | | [place] [address] | | | | + + + + + + + + | Specimen | + + | Blood specimen | | (specimen) | + + + + + + + | Performing | Address | City/State/Zipcode | Phone Number | | Organization | | | | + + + + + | [facility]E [facility] | [address] | [place] [address] | | | [facility] | | | | | LABORATORY [...] ENCE | | | Basophils | by [facility] [address], | [place]/uL | SACRED | | | | [place] | | HEART | | | |Performed by [facility] [address], [place], [place] | | MEDICA L | | [...] + + | BREAN[facility]E [facility] | [address] | [place], [place] | | | [facility] | | | | | LABORATORY [...] | | MEDICAL | | | | [facility] [address], | | CENTER | | | | [place] [address] | | LABORATORY | | | | [...] + + | [facility] | [address] | [place] [address] | | | [facility] | | | | | STEPHEN [...] PROVIDE NCE | | | | by [facility] [address], | | SACRED | | | | [place] [address] | | HEART | | | |Performed by [facility] [address], [place] [address] | | MEDICAL | | | | [...] + + | [facility] | [address] | [place] [address] | | | [facility] | | | | | LABORATORY [...] | | | | to 3.5Performed by [facility] | | LABORATORY | | | | [address], | | [place] | | | | [place] [address] | | | | + + + + + + + + | Specimen | + + | Blood specimen | | (specimen) | + + + + + + + | Performing | Address | City/State/Zipcode | Phone Number | | Organization | | | | + + + + + | [facility] | [address] | [place] [address] | | | [facility] | | | | | [...] | | MEDICAL | | | | [facility] [address], | | CENTER | | | | [place] [address] | | LABORATORY | | | | [...] + + | SUSIEDEYSIJustyna [facility] | [address] | [place] [address] | | | [facility] | | | | | LABORATORY [...] | | MEDICAL | | | | [facility] [address], | | CENTER | | | | [place] [address] | | LABORATORY | | | | [...] + + | [facility] | [address] | [place] [address] | | | [facility] | | | | | [...] PROVIDE NCE | | | | by [facility] [address], | | SACRED | | | | [place] [address] | | HEART | | | |Performed by [facility] [address], [place] [address] | | MEDICAL | | | | [...] + + | [facility] | [address] | [place] [address] | | | HEART [facility] [...] | | MEDICAL | | | | [facility] [address], | | CENTER | | | | [place] [address] | | LABORATORY | | | | [...] + | [facility] | [address] | [place] [address] | | | [facility]ENTER | [...] [facility] | | | | Performed by [facility] [address] | | SACRED | | | | [address] [place] | | HEART | | | | [address] | | MEDICAL | | | | [...] + | [facility] | [address] | [place] [address] | | | [facility] | | | | | LABORATORY [...] | | MEDICAL | | | | [facility] [address], | | CENTER | | | | [place] [address] | | LABORATORY | | | | [...] + + | [facility] | [address] | [place] [address] | | | [facility] | | | | | STEPHEN CAVANAUGH | | | | + + + + + Tissue Request For Pathology (06/11/2018 2:57 PM PDT) + + | Specimen | + + | | + + + + + | Narrative | Performed At | + + + | | [facility] | | LILY VALENTIN | BYARS | | : 1960 AGE: 58 years SEX: Male | MEDICAL CENTER | | | LABORATORY | | Acct: [id number] Location: | [facility] | | [facility] SURG; 552; 552-02 Case #: | | | [id number] Ordering: PATRICE CROSS MD | | | Client: [facility] | | | Copy To: Printed: [...] | MDVerify Date: 06/18/2018 12:37 pmPerforming Location: [facility] | | | [facility], [facility] [id number] | | | DESCRIPTION:This case is received [...] | | | ureteral and renal vasculature margins.Electronic Systems Security Assessment sections are | | | submitted as [...] pelvis and sinus | | | fat. Electronic Systems Security Assessment sections are submitted during second look with [...] + + | [facility] | [address] | [place] [address] | | | [facility] | | | | | STEPHEN [...] | | | | | | [facility] | | | | | | [facility] | | | | | | [facility] | | | | | | BLOOD | | | | | | CENTER | | + + + + + + | Rh Type | PositiveComment: Patient | | REFERENCE | | | | is remote crossmatch | | [facility] | | | | eligible | | [...] + + + | Specimen Expiration Date: [id number] | REFERENCE LAB | | | [facility] | | | [facility] | | | [facility] | + + + + + + + + | Performing | Address | City/State/Zipcode | Phone Number | | Organization | | | | + + + + + | REFERENCE LAB | [address] | [place] [address] | [phone] | | [facility] | | | | | [facility] [...] | | | | | | [facility] | | | | | | [facility] | | | | | | [facility] | | | | | | BLOOD | | | | | | CENTER | | + + + + + + | Rh Type | Positive | | REFERENCE | | | | | | [facility] | | | | | | [facility] | | | | | | [facility] | | | | | | BLOOD | | | | | | CENTER | | + + + + + + | Antibody | Negative | | REFERENCE | | | Screen | | | [facility] | | | | | | [facility] [...] + + + | Specimen Expiration Date: [id number] | REFERENCE LAB | | | [facility] | | | [facility] | | | [facility] | + + + + + + + + | Performing | Address | City/State/Zipcode | Phone Number | | Organization | | | | + + + + + | REFERENCE LAB | [address] | [place] [address] | [phone] | | [facility] | | | | | [facility] [...] | | | POC | Performed by [facility] [address] | | SACRED | | | | [address], [place] | | HEART | | | | [address] | | MEDICAL | | | | [...] + + | [facility] | [address] | [place] [address] | | | [facility] | | | | | LABORATORY [...]
--- OUTSIDE RECORDS SUMMARY | ~2019-12-19 | XMS | Encounter Summary ---
Demographics + + + | Address | [address] [address] | | | [place] [address] | + + + | Home Phone [...] Team Providers + +------+ + | Care Support Services Specialist Name | Role | Phone | [...] Provider Unknown | | | | | [address] | [phone] | | | | | [phone] | | | +--------+ + + + [...] [place] | | | | | | [address] | | | | | | | [...]
--- OUTSIDE RECORDS SUMMARY | ~2019-12-19 | XMS | Encounter Summary ---
Demographics + + + | Address | [address] | | | [place] [address] | + + + | Home Phone [...] [address] [place] | | | | | [address] | | + + + + + Care Team Providers + +------+ + | Care Hoist Operator Name | Role | Phone | [...] Rd | | | | | | [place], [place] | | | | | | [address] | | | | | | [phone] | | | | | | | | +--------+---------+ + + + documented as of this encounter Visit Diagnoses Not on filedocumented in this encounter"
--- OUTSIDE RECORDS SUMMARY | ~2019-12-19 | XMS | Encounter Summary ---
Demographics + + + | Address | [address] [address] | | | [place] [address] | + + + | Home Phone [...] Providers + +------+ + | Care Customer Operations Manager Name | Role | Phone [...] | | | | hy Lumbar | [address] | [place], | | | | | radiculopath | [place], | [place] [address] | | | | | y Leg pain, | [place] [address] | Phone: | | | | | diffuse, | Phone: | [phone] | | | | | left | [phone] | Fax: | | | | | Paresthesia | Fax: | [phone] | | | | | of left leg | [phone] | | | | | | CRP [...] | | | | hy Lumbar | [address] | [address] | | | | | radiculopath | [place], | [address] | | | | | y Leg pain, | [place] [address] | [place], | | | | | diffuse, | Phone: | [place] [address] | | | | | left | [phone] | Phone: | | | | | Paresthesia | Fax: | [phone] | | | | | of left leg | [phone] | Fax: | | | | | CRP | | [phone] | | | | | elevated Ds [...] | | | | hy CRP | [address] | [place] | | | | | elevated Ds | [place], | PLACE | | | | | DNA | [place] [address] | [place], [place] | | | | | antibody | Phone: | [address] | | | | | positive | [phone] | Phone: | | | | | Positive NICKIE | Fax: | [phone] | | | | | | [phone] | Fax: | | | | | (antinuclear | | [phone] | | | | | antibody) | [...] | 03/10/ | Office | [facility] | Riccardo Malhotra, | Peripheral | | 2019 | Visit | PHYSIATRY [address] | [address] | polyneuropathy | | | | [address] | [place] | (Primary Dx); Lumbar | | | | [place] | [address] | radiculopathy; Leg | | | | [address] | | pain, diffuse, left; | | | | [phone] | | Paresthesia of left | | [...] fro m the original. Riccardo Malhotra MD [address] [place] [address], [address] [place] [address] FAX: PHYSICAL MEDICINE AND REHABILITATION [...] has no apparent deficits with short or detention memory. The cranial nerves appear grossly intact. [...] neurology, a referral will be sent to [facility], based on his NCS results. We [...] rheumatology referral has been sent t o [facility] under the classification of urgent. We [...] work toward weight loss. We discussed that [facility] indicates that weight loss is the most powerful treatment for back pain. 15. Today we discussed the possibility of going to see a neurosurgeon to look more into his lumbar radiculopathy. A referral has been sent to [facility] for a neurosurgeon consultation to jazmine martin at Aaron Latham's lower back to evaluate and offer advise as to how to proceed [facility] care. 15. Aaron Latham is advised that should he have a loss of bowel or bladder control t hat he should seek emergent medical attention. Aaron Latham was instructed that if he experiences any progressive or profound weakness that he needs to seek urgent medical atte ntion. Aaron Latham has been advised that if he has any significant changes in strength ejnise t he should return to the clinic. [...] [place] | | | | | | [address] | | | | | | | [...]
--- OUTSIDE RECORDS SUMMARY | ~2019-12-19 | XMS | Encounter Summary ---
Demographics + + + | Address | [address] | | | [place] [address] | + + + | Home Phone [...] [address] [place] | | | | | [address] | | + + + + + Care Team Providers + +------+ + | Care Curb Hop Name | Role | Phone | + [...] | | | | (chronic | PA-C [address] | | | | | kidney | [address] | [place] | | | | | disease), | [place], [place] | [address] | | | | | stage III | [address] | [place], [place] | | | | | (HCC) | Phone: | [phone] | | | | | Malignant | [phone] | Phone: | | | | | neoplasm of | Fax: | [phone] | | | | | colon, | [phone] | Fax: | | | | | unspecified | | [phone] | | | | | part of [...] | | | | | disease), | [place], [place] | | | | | | stage III | [address] | | | | | | (HCC) | Phone: | | | | | | Malignant | [phone] | | | | | | neoplasm of | Fax: | | | | | | colon, | [phone] | | | | | | unspecified [...] | | | | | disease), | [place], [place] | | | | | | stage III | [address] | | | | | | (HCC) | Phone: | | | | | | Malignant | [phone] | | | | | | neoplasm of | Fax: | | | | | | colon, | [phone] | | | | | | unspecified [...] | | | | | disease), | [place], [place] | | | | | | stage III | [address] | | | | | | (HCC) | Phone: | | | | | | Malignant | [phone] | | | | | | neoplasm of | Fax: | | | | | | colon, | [phone] | | | | | | unspecified [...] | | | | | Polyneuropat | [facility] | [address] | | | | | hy, | PHYSICIAN | Ave | | | | | unspecified | MED GROUP | [place], [place] | | | | | | [address] | [address] | | | | | Radiculopath | [address] | Phone: | | | | | y, lumbar | [place] | [phone] | | | | | region Pain | [place] | Fax: | | | | | in left leg | [address] | [phone] | | | | | | Phone: | | | | | | Paresthesia | [phone] | | | | | | of skin | Fax: | | | | | | Anesthesia | [phone] | | | | | | of [...] | | | Ave Mailcode: | Ave [facility] [place] | (chronic kidney | | | | [facility] | [address] | disease), stage III | | | | and Healing, | [phone] | ([facility]); Malignant | | | | [address] | | neoplasm of colon, | | | | [place], [place] | | unspecified part of | | | | [address] | | colon ([facility]); Ataxia; | | | | [phone] | | Lumbar | | | | [...] since 2016 is stable. weakness in right forging die sinker improved mildly with CTR and ulnar surgery in 2018. Persistent left forging die sinker weakness, difficulty with fine motor mov ements [...] questionna sarah that will be scanned into [employer]. Current medication list: Current Outpatient Medications Medication [...] pain medication by PCP -Will set up [facility] Spine Surgeon appointment, need MRIs complete prior to appointment and sharif lebron is aware of poor prognosis of chronic neurological deficits and that he is a poor surg ical candidate. I spent at least 45 minutes [id number] with the patient. I spent more than 50% of this vi sit in coordination of care and counseling in which we discussed diagnosis, treatment, imagi ng studies and follow-up. Milton Mora PA-C [facility] AT [address] Mailcode: [place] [address] [facility] OPEN NOTE [[id number]] P DTdocumented in this encounter Plan of Treatment +--------+---------+ + + + | Date | Type | Specialty | Care Team | Description | +--------+---------+ + + + | 01/20/ | Office | Orthopedics | Richard Harvey, | | | 2019 | Visit | | [address] | | | | | | [address] | | | | | | [place], [place] | | | | | | [address] | | | | | | [phone] | | | | | | | [...]
--- OUTSIDE RECORDS SUMMARY | ~2019-12-19 | XMS | Encounter Summary ---
Demographics + + + | Address | [address] [address] | | | [place] [address] | + + + | Home Phone [...] Team Providers + +------+ + | Care Trading Assistant Name | Role | Phone | [...] | | | (HCC) [place] | [place] [address] | [address] Phone: | | | | | nephrec | Phone: | [phone] | | | | | 06/11, BMP | [phone] | Fax: | | | | | prior | Fax: | [phone] | | | | | Procedures | [phone] | | | | | | [place] POST-OP | | | | | | [...] | | | | [place] | [address] | | | | | [address] | | | | | | [phone] | | | +--------+---------+ + + + [...] Ag MD - 07/17/2018 10:20 AM PST ANSTED UROLOGY OFFICE NOTE Primary Care Physician: Sarah [...] profoundly dehydrated and admitted I VF in [place]. Pathology report: FINAL DIAGNOSIS: A. Lymph nodes, [...] Surgeon: Mehul Bowles MD; Location: [facility] MAIN OR COLONOSCOPY 05/22/2017 FINGER SURGERY Right 1974 AMPUTATION 5th finger TONSILLECTOMY 1969 TOTAL NEPHRECTOMY Left 06/11/2018 Procedure: LEFT LAPAROSCOPIC NEPHRECTOMY WITH NODE DISSECTION AND LAPAROSCOPIC LYSIS OF AD HESIONS; Surgeon: Patrice Cross MD; Location: [facility] MAIN OR MEDICATIONS Current Outpatient Prescriptions Medication [...] 07/17/2018 at 10:53 CC: Sarah Gallegos MD [address] [facility] [place] [address] documented in this encou nter Plan of Treatment +--------+---------+ + + + | Date | Type | Specialty | Care Team | Description | +--------+---------+ + + + | 03/17/ Office | Cardiology | Lorraine Clifton DO | | | 2020 | Visit | | [address] | | | | | | [place] | | | | | | [address] | | | | | | | | +--------+---------+ + + + documented as of this encounter Visit Diagnoses + + | Diagnosis | + + | 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
--- OUTSIDE RECORDS SUMMARY | ~2019-12-19 | XMS | Clinical Summary ---
Demographics + + + | Address | [address] | | | [place] [address] | + + + | Home Phone [...] Team Providers + +------+ + | Care Information Security Systems Instructor Name | Role | Phone | [...] daily.Last Cath: | | naLast Echo, 02/16/2016 ([facility]): moderate LVH, global | | hypokinesis, LVEF [...] | | 59.9 in adult ([facility]); | | | | | | Essential [...] | | | | | ([facility]); | | | | | | Angiomyolipoma of | | | | | | left kidney; Anemia | | | | | | of chronic renal | | | | | | failure, stage 3 | | | | | | (moderate) ([facility]); | | | | | | Persistent | | | | | | proteinuria | +--------+ + + + + | 12/10/ | Documentati | Nephrology | Diane Nolen Results (12/10/19) | | 2020 | on | | Gabo [employer] | | | | | | Auto Wheel Alignment Specialist | | +--------+ + + + + [...] CHAN | | | | | | [address] | | | | | | | [...] + +------+ | PREMERA | PREMER | [id number] | 08/12/19 | [phone] | | PPO | | | A | 3 | 17-Pre | 0 | | | | | PREFER | | sent | | | | | | RED | | | | | | +---------+--------+ +--------+ + +------+ | MODA | MODA | [id number] | 08/12/19 | [phone] | [address] | PPO | | | AFFINI | | 20-Pre | 9 | [id number] | | | | [place] | | sent | | [place], | | | | [place]NER | | | | [place] [address] | | | | STONE | | | | | | | | EPO | | | | | | +---------+--------+ +--------+ + +------+ | MODA | MODA | [id number] | 08/12/19 | [phone] | [address] | PPO | | | OEBB | | 20-Pre | 9 | [id number] | | | | [place] | | sent | | [place], | | | | [place] | | | | [place] [address] | | +---------+--------+ +--------+ + +------+ + [...] | | | 1 (Home) | [place] [address] | + +--------+ +--------+ + + | Aaron Latham | Person | Self | [birth year] | [address] | | | al/Fam | | 1 | [phone] | [address] [place], | | | [place] | | | 1 (Home) | [place] [address] | + +--------+ +--------+ + + | Aaron Latham | Person | Self | [birth year] | [address] | | | al/Fam | | 1960 | [phone] | [address] [place], | | | [place] | | | 1 (Home) | [place] [address] | + +--------+ +--------+ + + Advance Directives + + + + + | Type | Date Recorded | Patient | Explanation | | | | Band Reamer Machine Operator | | + + + + + | Power of | | | | | Leather Craftsman | | | | + + + [...]
--- OUTSIDE RECORDS SUMMARY | ~2019-12-19 | XMS | Encounter Summary ---
Demographics + + + | Address | [address] | | | [place] [address] | + + + | Home Phone [...] [place] | | | | | [address] | | + + + + + Care Team Providers + +------+ + | Care Vocational Horticulture Instructor Name | Role | Phone | [...] | | Herring [place] Mailcode: | [place], [place] | | | | | [facility] | [address] | | | | | [facility], | [phone] | | | | | [address] [place] [address] [facility] | | | | | | Floor [place], [place] | | | | | | [address] | | | | | | [phone] | | | +--------+ + + + [...] Rd | | | | | | [place], [place] | | | | | | [address] | | | | | | [phone] | | | | | | | [...]
--- OUTSIDE RECORDS SUMMARY | ~2019-12-19 | XMS | Encounter Summary ---
Demographics + + + | Address | [address] | | | [place] [address] | + + + | Home Phone [...] + + + | Author | [facility] | + + + | Organization | [facility] | + + + | Address | Unknown | + + + | Phone | Unavailable | + + + Support + + + + + | Name | Relationship | Address | Phone | + + + + + | Toby Latham | ANNA | [address] | | | | | [place] | | | | | [address] | | + + + + + Care Team Providers + +------+ + | Care Loan Interviewer Mortgage Name | Role | Phone | + [...] | | | | | | [facility] | | | | | | Hospital Admitting | | | | | | Desk Located on the | | | | | | 9th floor | | | | | | [place], [place] | | | | | | [address] | | | +--------+ + + + [...] 01/20/ | Office | Orthopedics | Richard Havrey, | | | 2019 | Visit | | [address] | | | | | | [address] | | | | | | [place], [place] | | | | | | [address] | | | | | | [phone] | | | | | | | | +--------+---------+ + + + documented as of this encounter Visit Diagnoses Not on filedocumented in this encounter"
--- OUTSIDE RECORDS SUMMARY | ~2019-12-19 | XMS | Encounter Summary ---
Demographics + + + | Address | [address] [address] | | | [place] [address] | + + + | Home Phone [...] Team Providers + +------+ + | Care Terrazzo Worker Name | Role | Phone | [...] PHYSIATRY [address] | MD [address] | | | | | [address] | [place], [place] | | | | | [place] | [address] | | | | | [address] | | | | | | [phone] | | | +--------+ + + + [...] | | | | | | [facility] | | | | | | [address] | | | | | | | | +--------+---------+ + + + documented as of this encounter Visit Diagnoses Not on filedocumented in this encounter"
--- OUTSIDE RECORDS SUMMARY | ~2019-12-19 | XMS | Encounter Summary ---
Demographics + + + | Address | [address] [address] | | | [place] [address] | + + + | Home Phone [...] Team Providers + +------+ + | Care Dispatch Clerk Name | Role | Phone | + +------+ + | Sarah Carroll MD | PCP | | + +------+ + Encounter Details +--------+ + + + + | Date | Type | Department | Care Team | Description | +--------+ + + + + | 12/18/ | Orders Only | [facility] | Jewel Ulloa MD | | | 2019 | | NEPHROLOGY [place] | [address] [place] | | | | | [address] [place] | [address] [place], [place] | | | | | [address] [place], [place] | [address] | | | | | [address] | | | | | | [phone] | | | +--------+ + + + [...] [place] | | | | | | [address] | | | | | | | [...] | | | LAB | | | EMIRATI | | | | | + + [...]
--- OUTSIDE RECORDS SUMMARY | ~2019-12-19 | XMS | Encounter Summary ---
Demographics + + + | Address | [address] [address] | | | [place] [address] | + + + | Home Phone [...] Team Providers + +------+ + | Care Music Industry Intern Name | Role | Phone | + +------+ + | Sarah Carroll MD | PCP | | + +------+ + Encounter Details +--------+ + + + + | Date | Type | Department | Care Team | Description | +--------+ + + + + | 01/19/ | Orders Only | [facility] | Jewel Ulloa MD | | | 2019 | | NEPHROLOGY [place] | [address] [place] | | | | | [address] [place] | [address] [place], [place] | | | | | [address] [place], [place] | [address] | | | | | [address] | | | | | | [phone] | | | +--------+ + + + [...] [place] | | | | | | [address] | | | | | | | [...] | | | LAB | | | AUSTRIAN | | | | | + + [...]
--- OUTSIDE RECORDS SUMMARY | ~2019-12-19 | XMS | Encounter Summary ---
Demographics + + + | Address | [address] | | | [place] [address] | + + + | Home Phone [...] [place] | | | | | [address] | | + + + + + Care Team Providers + +------+ + | Care Head Up Operator Helper Name | Role | Phone [...] | | | | | | [facility] | | | | | | Hospital Admitting | | | | | | Desk Located on the | | | | | | 9th floor | | | | | | [place], [place] | | | | | | [address] | | | +--------+ + + + [...] Rd | | | | | | [place], [place] | | | | | | [address] | | | | | | [phone] | | | | | | | | +--------+---------+ + + + documented as of this encounter Visit Diagnoses Not on filedocumented in this encounter"
--- OUTSIDE RECORDS SUMMARY | ~2019-12-19 | XMS | Encounter Summary ---
Demographics + + + | Address | [address] | | | [place] [address] | + + + | Home Phone [...] [place] | | | | | [address] | | + + + + + Care Team Providers + +------+ + | Care Airport Operations Duty Manager Name | Role | Phone | + +------+ + PCP | Unavailable | + +------+ + Encounter Details +--------+ + + + + | Date | Type | Department | Care Team | Description | +--------+ + + + + | 01/14/ | Abstract | Dig[facility]ive Health | Clinic, Surgery | | | 2019 | | [place] [facility] [address] | | | | | | Doug Grijalva | | | | | | Mailcode: [place] | | | | | | [facility] Health and | | | | | | Healing, Building [address] | | | | | | [facility] [place] | | | | | | [address] | | | | | | [phone] | | | +--------+ + + + [...] | | 2019 | Visit | | [address] | | | | | | [address] | | | | | | [place], [place] | | | | | | [address] | | | | | | [phone] | | | | | | | | +--------+---------+ + + + documented as of this encounter Visit Diagnoses Not on filedocumented in this encounter"
--- OUTSIDE RECORDS SUMMARY | ~2019-12-19 | XMS | Encounter Summary ---
Demographics + + + | Address | [address] | | | [place] [address] | + + + | Home Phone [...] [place] | | | | | [address] | | + + + + + Care Team Providers + +------+ + | Care Material Damage Adjuster Name | Role | Phone | + [...] | (Primary Dx); | | | | [facility] | [facility] [address] | Essential | | | | [address] | [place], [place] | hypertension; | | | | Mail Code: OC8PM | [address] | Congestive heart | | | | [facility] | [phone] | failure, unspecified | | | | and Healing, | | HF chronicity, | | | | Building [address] | | unspecified heart | | | | [place], [place] | | failure type (HCC); | | | | [address] | | Subclinical | | | | [phone] | | hypothyroidism; | | | | [...] stand or walk. Surgery check-in location: [address], 1st Floor [facility] Surgery Check in Time: The Preoperative [...] ch as Uber/Lyft), or public transportation. An Uber/Lyft/van driver does not count as the responsible [...] it is after office hours, call the [facility] process plant operator at [phone] and ask them to page him or [...] Proposed Procedure/Date: Colonoscopy/EGD 04/14/19 Proposed Procedure Location: [facility] HISTORY OF PRESENT ILLNESS: Aaron Latham [...] EKG: Personally reviewed [facility] "[facility]" tab. Findings pertinent to this [...] contribute to this patient's care. [place] Reynolds [facility] PB PREOPERATIVE MEDICINE CLINIC AT [address] [address] I spent time counseling the [...] Rd | | | | | | [place], [place] | | | | | | [address] | | | | | | [phone] | | | | | | | | +--------+---------+ + + + documented as of this encounter Procedures + +--------+ + + + | Procedure Name | Priori | Date/Time | Associated Diagnosis | Comments | | | ty | | | | + +--------+ + + + | NC COLLECTION VENOUS | Routin | 03/30/2019 | [...] | | | LABORATORY | | | [facility] | | | SERVICES, | | | [...] | + + + + + | [facility] | [address] | [place] [address] | | | SERVICES, CORE | PARK [...] + + + | ECG | Prolonged NC interval | | [facility] DEPT | | [...] DEPT OF | [address] | [place], [place] | | | CARDIOLOGY | [address] | [address] | | + + + + + [...]
--- OUTSIDE RECORDS SUMMARY | ~2019-12-19 | XMS | Encounter Summary ---
Demographics + + + | Address | [address] | | | [place] [address] | + + + | Home Phone [...] [place] | | | | | [address] | | + + + + + Care Team Providers + +------+ + | Care Radius Corner Machine Operator Name | Role | Phone [...] | ascending | [address] | [place] | | | | | colon | [address] | [place] [address] | | | | | Procedures | Rd | floor | | | | | CONSULT TO | [place], [place] | [place], [place] | | | | | GI PROCEDURE | [address] | [address] | | | | | UNIT: | Phone: | Phone: | | | | | COLONOSCOPY | [phone] | [phone] | | | | | MT ANES [facility]WR | Fax: | Fax: | | | | | INTST NDSC | [phone] | [phone] | | | | | NOS MT | | | | | | | COLONOSCOPY, | | | | | | | FLEX, | | | | | | | W/BIOPSY MT | | | | | | | | | | | | | | COLONOSCOPY, | | | | | | | REMV LESN BY | | | | | | | SNARE | | | | | | | TECHNIQUE | | | | | | | MT | | | | | | | [...] + + + + | 02/09/ | Transfer Machine Operator | Digestive Health | Naveen Luke [address] | Adenomatous polyp of | | 2019 | | Center at [facility] 4th | MD Matt [address] | ascending colon | | | | Floor [address] | (Primary Dx) | | | | [address] | [place], [place] | | | | | Mailcode: CH6D | [address] | | | | | [facility] | [phone] | | | | | [place], [place] | | | | | | [address] | | | | | | [phone] | | | +--------+ + + + [...] Rd | | | | | | [place], [place] | | | | | | [address] | | | | | | [phone] | | | | | | | | +--------+---------+ + + + documented as of this encounter Visit Diagnoses + + | Diagnosis | + + | Adenomatous polyp of ascending colon - Primary | + + documented in this encounter"
--- OUTSIDE RECORDS SUMMARY | ~2019-12-19 | XMS | Encounter Summary ---
Demographics + + + | Address | [address] [address] | | | [place] [address] | + + + | Home Phone [...] Team Providers + +------+ + | Care French Edge Operator Name | Role | Phone | + +------+ + | Sarah Carroll MD | PCP | | + +------+ + Encounter Details +--------+ + + + + | Date | Type | Department | Care Team | Description | +--------+ + + + + | 07/11/ | Orders Only | [facility] | Conversion | | | 2018 | | NEPRHOLOGY [place] | Transaction, | | | | | [address] | Provider Unknown | | | | | [address] [place], [place] | [phone] | | | | | [address] | | | | | | [phone] | | | +--------+ + + + [...] | | | | | | [facility] | | | | | | [address] | | | | | | | [...]
--- OUTSIDE RECORDS SUMMARY | ~2019-12-19 | XMS | Encounter Summary ---
Demographics + + + | Address | [address] [address] | | | [place] [address] | + + + | Home Phone [...] Team Providers + +------+ + | Care Mill Tender Name | Role | Phone | [...] | | | | | hy, | [address] | [address] | | | | | unspecified | [place], | [place], [place] | | | | | Elevated | [place] [address] | [address] | | | | | C-reactive | Phone: | Phone: | | | | | protein | [phone] | [phone] | | | | | (CRP) Other | Fax: | Fax: | | | | | specified | [phone] | [phone] | | | | | abnormal | [...] + + | 05/04/ | Office | [facility] | Arturo Gray | Positive NICKIE | | 2019 | Visit | RHEUMATOLOGY [address] | MD Tien [address] | (antinuclear | | | | [address] | [address] | antibody) (Primary | | | | [place] | [place] [address] | Dx); Chronic kidney | | | | [address] | [phone] | disease, stage 3 | | | | [phone] | | (HCC); SS-B antibody | | [...] encounter Patient Instructions Patient Instructions Serena Forman, Roller Presser Operator - 05/04/2019 8:30 AM JUANCARLOSWe hope t hat you have experienced exceptional care today and that you found our service to be courteo us and helpful. If you have any questions, you can send us a message/request using MyLikes or call our o ffice at [phone]. To reach the Roller Presser Operator , dial [email or web address] - [phone]- Serena Jose J GARRISON If you are [...] You can also review your results on WinProbehart. 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 I reassured patient that [...] CHAN | | | | | | [address] | | | | | | | [...] - 1.030 | REFERENCE | | | [place], | | | LAB | | | [...] | performed at [facility];[address] | | LAB | | | | [place] | | [facility] | | | | [address];[place] [address] | | LABORATORY | | + + + + + + + + | Specimen | + + | Urine | + + + + + + + | Performing | Address | City/State/Zipcode | Phone Number | | Organization | | | | + + + + + | REFERENCE LAB | [address] | [place] | [phone] | | [facility] | [address] | [address] | | | LABORATORY | | | | + + + + + | REFERENCE LAB | [address] | [place] | | | [facility] | [address] | [address] | | | LABORATORY | | | [...] | performed at [facility];[address] | | LAB | | | | [facility] | | [facility] | | | | Bl;[place] [address] | | LABORATORY | | + + + + + + + + | Specimen | + + | Urine | + + + + + + + | Performing | Address | City/State/Zipcode | Phone Number | | Organization | | | | + + + + + | REFERENCE LAB | [address] [place] [address] | [place], [place] | [phone] | | [facility] | [address] | [address] | | | LABORATORY | | | | + + + + + | REFERENCE LAB | [address] [place] [address] | [place], [place] | | | [facility] | [address] | [address] | | | LABORATORY | | | [...] | performed at [facility];[address] | | LAB | | | | [place] | | [facility] | | | | [address];[place] [address] | | LABORATORY | | + + + + + + + + | Specimen | + + | Blood | + + + + + + + | Performing | Address | City/State/Zipcode | Phone Number | | Organization | | | | + + + + + | REFERENCE LAB | [address] [facility] | [place] | [phone] | | [facility] [address] | [address] | | | LABORATORY | | | | + + + + + | REFERENCE LAB | [address] [facility] | [place] | | | [facility] | [address] | [address] | | | LABORATORY | | | [...] | LAB | | | | [address] [facility] | | [facility] | | | | [place] [address] | | LABORATORY | | + + [...] | | | | | with both NM-3 and | | | | | | [...] | | 3 Antibody | performed by [employer], | | LAB | | | | [address], | | [facility] | | | | [facility] [address] | | LABORATORY | | + + + + + + + + | Specimen | + + | Blood | + + + + + + + | Performing | Address | City/State/Zipcode | Phone Number | | Organization | | | | + + + + + | REFERENCE LAB | [address] [place] [address] | [place], [place] | [phone] | | [facility] | [address] | [address] | | | LABORATORY | | | | + + + + + | REFERENCE LAB | [address] [place] [address] | [place], [place] | | | [facility] | [address] | [address] | | | LABORATORY | | | [...] | performed at [facility];[address] | | LAB | | | | [place] | | [facility] | | | | [address];[place] [address] | | LABORATORY | | + + + + + + + + | Specimen | + + | Blood | + + + + + + + | Performing | Address | City/State/Zipcode | Phone Number | | Organization | | | | + + + + + | REFERENCE LAB | [address] [place] [address] | [place], [place] | [phone] | | [facility] | [address] | [address] | | | LABORATORY | | | | + + + + + | REFERENCE LAB | [address] [place] [address] | [place], [place] | | | [facility] | [address] | [address] | | | LABORATORY | | | [...] criterion | | | | | | ([employer] | | | | | [...] | | | | | validated by [employer] | | | | | | Diagnostics, [...] by | | | | | | [employer] | | | | | | Inc.June | | | | | | 4, 2019 dsDNA (nDNA) | | | | | | Scrn by [employer] will | | | | | | be made non-orderable. | | | | | | [facility] offers [id number] | | | | | | dsDNA Curt perez | | | | | | IFA. For further | | | | | | information, please | | | | | | contact your local | | | | | | [facility] | | | | | | Grain Processor.Testing | | | | | | performed at [employer] | | | | | | [place], [address] | | | | | | [employer], [facility] | | | | | | [address],[place], [place] | | | | | | [address]. | | | | + + + + + + + + | Specimen | + + | Blood | + + + + + + + | Performing | Address | City/State/Zipcode | Phone Number | | Organization | | | | + + + + + | REFERENCE LAB | [address] [facility] | [place] | [phone] | | [facility] [address] | [address] | | | LABORATORY | | | | + + + + + | REFERENCE LAB | [address] [facility] | [place] | | | [facility] | [address] | [address] | | | LABORATORY | | | [...] | | | | | | at [facility], [address] | | | | | | [place] | | | | | | [address] | | | | + + + + + + + + | Specimen | + + | Blood | + + + + + + + | Performing | Address | City/State/Zipcode | Phone Number | | Organization | | | | + + + + + | REFERENCE LAB | [address] | [place] | [phone] | | [facility] | [address] | [address] | | | LABORATORY | | | | + + + + + | REFERENCE LAB | [address] [facility] | [place] | | | [facility] | [address] | [address] | | | LABORATORY | | | [...] W | | | | | | [facility] | | | | | | [place] [address] | | | | + + + + + + + + | Specimen | + + | Blood | + + + + + + + | Performing | Address | City/State/Zipcode | Phone Number | | Organization | | | | + + + + + | REFERENCE LAB | [address] [facility] | [place], [place] | [phone] | | [facility] | [address] | [address] | | | LABORATORY | | | | + + + + + | REFERENCE LAB | [address] [facility] | [place] | | | [facility] | [address] | [address] | | | LABORATORY | | | [...] | performed at [facility];[address] | | LAB | | | | [place] | | [facility] | | | | Bl[address];[place] [address] | | LABORATORY | | + + + + + + + + | Specimen | + + | Blood | + + + + + + + | Performing | Address | City/State/Zipcode | Phone Number | | Organization | | | | + + + + + | REFERENCE LAB | [address] [facility] | [place] | [phone] | | [facility] | [address] | [address] | | | LABORATORY | | | | + + + + + | REFERENCE LAB | [address] [facility] | [place] | | | [facility] | [address] | [address] | | | LABORATORY | | | [...] | performed at [facility];[address] | | LAB | | | | [place] | | [facility] | | | | Blvd;[place] [address] | | LABORATORY | | + + + + + + + + | Specimen | + + | Blood | + + + + + + + | Performing | Address | City/State/Zipcode | Phone Number | | Organization | | | | + + + + + | REFERENCE LAB | [address] [place] [address] | [place], [place] | [phone] | | [facility] | [address] | [address] | | | LABORATORY | | | | + + + + + | REFERENCE LAB | [address] [place] [address] | [place], [place] | | | [facility] | [address]. | [address] | | | LABORATORY | | | [...] | performed at [facility];[address] | | | | | | [facility] | | | | | | Blvd;[place] [address] | | | | | | | | | | + + + + + + + + | Specimen | + + | Blood | + + + + + + + | Performing | Address | City/State/Zipcode | Phone Number | | Organization | | | | + + + + + | REFERENCE LAB | [address] [facility] | [place] | [phone] | | [facility] [address] | [address] | | | LABORATORY | | | | + + + + + | REFERENCE LAB | [address] | [place] | | | [facility] | Bl[address]. | [address] | | | LABORATORY | | | [...] | performed at [facility];[address] | K/uL | LAB | | | | [place] | | [facility] | | | | [address];[place] [address] | | LABORATORY | | + + + + + + + + | Specimen | + + | Blood | + + + + + + + | Performing | Address | City/State/Zipcode | Phone Number | | Organization | | | | + + + + + | REFERENCE LAB | [address] [facility] | [place] | [phone] | | [facility] | [address] | [address] | | | LABORATORY | | | | + + + + + | REFERENCE LAB | [address] | [place] | | | [facility] | [address] | [address] | | | LABORATORY | | | [...]
--- OUTSIDE RECORDS SUMMARY | ~2019-12-19 | XMS | Clinical Summary ---
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; Anemia | | | | | | of chronic renal | | | | | | failure, stage 3 | | | | | | (moderate) ([facility]); | | | | | | Persistent | | | | | | proteinuria | +--------+ + + + + | 12/10/ | Documentati | Nephrology | Diane Nolen Results (12/10/19) | | 2020 | on | | Gabo Jay | | | | | | Circus Performer | | +--------+ + + + + [...] [place] | | | | | | [address] | | | | | | | [...] + +------+ | PREMERA | PREMER | [id number] | 08/12/19 | [phone] | | PPO | | | A | 3 | 17-Pre | 0 | | | | | PREFER | | sent | | | | | | RED | | | | | | +---------+--------+ +--------+ + +------+ | MODA | MODA | [id number] | 08/12/19 | [phone] | [address] | PPO | | | AFFINI | | 20-Pre | 9 | [address] | | | | [place] | | sent | | [place], | | | | [place] | | | | [place] [address] | | | | STONE | | | | | | | | EPO | | | | | | +---------+--------+ +--------+ + +------+ | MODA | MODA | [id number] | 08/12/19 | [phone] | [address] | PPO | | | OEBB | | 20-Pre | 9 | [phone] | | | | [place] | | sent | | [place], | | | | [place] | | | | [place] [address] | | +---------+--------+ +--------+ + +------+ + [...] | | | 1 (Home) | [place] [address] | + +--------+ +--------+ + + | Aaron Latham | Person | Self | [birth year] | [address] | | | al/Fam | | 1 | [phone] | [address] [place], | | | [place] | | | 1 (Home) | [place] [address] | + +--------+ +--------+ + + | Aaron Latham | Person | Self | [birth year] | [address] | | | al/Fam | | 1960 | [phone] | [address] [place], | | | [place] | | | 1 (Home) | [place] [address] | + +--------+ +--------+ + + Advance Directives + + + + + | Type | Date Recorded | Patient | Explanation | | | | 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
--- OUTSIDE RECORDS SUMMARY | ~2019-12-19 | XMS | Encounter Summary ---
Demographics + + + | Address | [address] [address] | | | [place] [address] | + + + | Home Phone [...] Team Providers + +------+ + | Care Car Customizer Name | Role | Phone | + [...] | | | neoplasm of | | [phone] | | | | | sigmoid | | Fax: | | | | | colon (HCC) | | [phone] | | | | | [C18.7] | [...] | | | | [place] | [phone] | | | | | [address] | | | | | | [phone] | | | +--------+---------+ + + + [...] Electronically signed by: Oumou Kinsey, 08/22/2017 6:48 [facility] documented in this encounter Discharge Instructions Instructions Gretel Peña RN - 08/23/2017 [facility] Patient Belongings Aaron L[place] 1960 Valuables Dentures: None Vision - Corrective Lenses: None Hearing Aid: None Jewelry: None Clothing: Pants, Shirt, Footwear ( Duffel/CPAP/CANE/Hospital provided bag with clothing sen t to PACU pt. storage bins) Other Valuables: CPAP/BiPAP, Secured on Unit Other Valuables: None Home Medications: None Patient Signature: Clinician/Restaurant Assistant Manager Signature: Incision Care: Abdomen Dressing your [...] by your healthcare provider Date Last Reviewed: 07/12/201619990216-3145 [employer]. [address] [place] [address]. All righ ts reserved. This information is [...] You may c ough up blood. 2015 [employer] All illustrations and images included in CareNotes a re the copyrighted property of [employer] or [employer]. documented in this encounter Medications at Time [...] 0700 08/23/17 07 - 08/24/17 0700 Shift 8193-3623 2744-7891 24 Hour Total 3307-6086 3599-4546 24 Hour Total I N T A [...] Arango - 08/22/2017 4:26 PM PSTSocial Work: [facility] and they do not service the area in [place] where patient lives. Called [facility] in [place]. Made referral. They will verify insurance and call back hopefully in am. Spoke with pt and his mother Toby. Transport difficulties for discharge today, but their fr iend should be at [facility] at 1000 08/23. Sasha Blevins LICSW [...] with her in her mobile home in [place], [place]. She is agreeable to home health and after review of choice s, chose [facility]. Referral made to [facility] by voicemail and fa x. Will await response from them on whether they can follow; would need to call them when pt d/c's but otherwise they can follow in [facility]. Pt will have a friend [...] 8.5 9.0 Radiology data: No results found. [facility] - 08/20/2017 6:52 AM [...] 08/20/17 0708/20/17 07 - 08/21/17 0700 Shift 5665-3523 7485-8427 24 Hour Total 1900-0700 24 Hour Total [...] (mL/kg) 850 (5.4) 2050 (13.1) 2900 (18.5) [facility] -256 -732 -987 Weight (kg) 156.9 156.9 156.9 [...] 08/19/17 0708/19/17 07 - 08/20/17 0700 Shift 1035-5438 3857-4565 24 Hour Total 2514-6224 0670-4688 24 Hour Total I N T A [...] 0700 08/18/17 0701 - 08/19/17 0700 Shift 0555-4777 4327-6625 24 Hour Total 3319-9621 9764-7216 24 Hour Total I N T A [...] 0700 08/17/17 07 - 08/18/17 0700 Shift 2813-5808 24 Hour Total 6392-1178 4466-5481 24 Hour Total I N T A [...] U T P U T Urine (mL/kg/hr) 264 304 6128 (0.7) 1300 Blood 150 Shift Total (mL/kg) [...] | | | | | | [facility] [place] | | | | | | [id number] | | | | | | | [...] + | [facility] | [address] | [place] [address] | | | [facility] | | | | | [...] + | [facility] | [address] | [place] [address] | | | [facility] | [...] + + | Glucose | 149 (H)Comment: Lithuanian | 65 - 99 mg/dL | [facility] [...] + + | [facility] | [address] | [place] [address] | | | [facility] | | | | | [...] Physician: Mehul KINSEY Copy to: [facility] | | DIAGNOSIS: Colon, sigmoid, [...] cm to 0.5 cm in greatest dimension. New Vehicle Sales Consultant | | | sections are submitted as [...] intact; "A12" three lymph node candidates, intact. ([facility]) | | | MICROSCOPIC DESCRIPTION: Histologic sections of all submitted blocks | | | are examined by light microscopy. These findings, together with the | | | gross examination, support the pathologic diagnosis. A: | | | 376[address], 12041, 41766, 74529, 21592(e) | | | PROCEDURES/ADDENDA SPECIAL STAINS DIAGNOSIS: [...] developed and their performance characteristics determined by [facility] | | [facility]. This test is used for clinical | | | purposes. It should not be regarded as investigational or for | | | research. [facility] is certified under the Clinical | | | Laboratory Improvement Amendments of 1988 (CLIA) as qualified to | | | perform high complexity clinical laboratory testing. Comment: | | | Breast predictive markers have not been validated on decalcified | | | specimens. Bladimir Staley MD Testing performed | | | at: [facility] Tomasz | | | Michelle Arredondo, Director [address] [place] [address] [address] [place], [place] | | | [address] | | + + + + + + + + | Performing | Address | City/State/Zipcode | Phone Number | | Organization | | | | + + + + + | [facility] | [address] | [place] [address] | | | [facility] | | | | | [...] + + | Glucose | 113 (H)Comment: Lithuanian | 65 - 99 mg/dL | [facility] [...] + + | [facility] | [address] | [place] [address] | | | [facility] | | | | [...] + | [facility] | [address] | [place] [address] | | | [facility] | | | | [...] + | [facility] | [address] | [place] [address] | | | [facility] | | | | | [...] [address] | [place] [address] | | | [facility] [...] policy and contact | | | provider regional facilities manager, | | + +---+ | | [...]
--- OUTSIDE RECORDS SUMMARY | ~2019-12-19 | XMS | Encounter Summary ---
Demographics + + + | Address | [address] [address] | | | [place] [address] | + + + | Home Phone [...] Team Providers + +------+ + | Care Intrusion Analyst Name | Role | Phone | + +------+ + | Sarah Carroll MD | PCP | | + +------+ + Encounter Details +--------+ + + + + | Date | Type | Department | Care Team | Description | +--------+ + + + + | 10/16/ | Orders Only | [facility] | Jewel Ulloa MD | | | 2019 | | NEPHROLOGY [place] | [address] [place] | | | | | [address] [place] | [address] [place], [place] | | | | | [address] [place], [place] | [address] | | | | | [address] | | | | | | [phone] | | | +--------+ + + + [...] | | | | | [place] | | | | | | [address] | | | | | | | [...] | | | LAB | | | [place] | | | | | + + [...]
--- OUTSIDE RECORDS SUMMARY | ~2019-12-19 | XMS | Encounter Summary ---
Demographics + + + | Address | [address] | | | [place] [address] | + + + | Home Phone [...] [place] | | | | | [address] | | + + + + + Care Team Providers + +------+ + | Care Business Affairs Manager Name | Role | Phone | [...] | | | | | | | MD | | | | | | | COLONOSCOPY, | | | | | | | FLEX, | | | | | | | W/BIOPSY MD | | | | | | | | | | | | | | COLONOSCOPY, | | | | | | | YUNI URIBE BY | | | | | | | SNARE | | | | | | | TECHNIQUE | | | | | | | MD | | | | | | [...] | | | | | | | MD ANES LWR | | | | | | | INTST NDSC | | | | | | | NOS | | | +--------+--------+ + + + + Encounter Details +--------+ + + + + | Date | Type | Department | Care Team | Description | +--------+ + + + + | 07/01/ | Hospital | [facility]-Specialty | [facility] | | [facility] | Encounter | Procedural Unit | MD Charles [address] | | | | | ([facility] at [facility] [address] | | | | | Doug Grijalva | [facility] [place] | | | | | Mailcode: [place] | [address] | | | | | [facility] and | [phone] | | | | | [facility], [address] | | | | | | [facility] [place] [facility] [place] | | | | | | [address] | | | | | | [phone] | | | +--------+ + + + [...] Call the endoscopy department toll free ext. [phone] or After business hours or on weekends and holidays call the Hospital Poured Concrete Wall Technician toll free [phone] Ext. [phone] or and have the GI doctor telephone advice nurse paged. The provider who performed your procedure: [...] 10:15 AM PST PRE PROCEDURE NOTE: MR# [id number] Subjective: Aaron Latham is a 59 y.o. [...] | | 2019 | Visit | | [address] | | | | | | [address] | | | | | | [place], [place] | | | | | | [address] | | | | | | [phone] | | | | | | | [...] | | | [facility] Include [facility] | | | | | | [facility] electronic | | | | | | [...] | [facility] FOR | | | | [facility]) and medical record | | HEALTH + | | | | number [id number].A. | | HEALING | | | | [...] + + + + + | [facility] | [address] | [place] [address] | | | PATHOLOGY | [address] | | | + + + + + | [facility] | [address] | [place] [address] | | | SERVICES, [facility] | | | | | HEALTH + HEALING | | | | + + + + + COLONOSCOPY (07/01/2019 10:08 AM PST) + + | Specimen | + + | | + + + + + | Narrative | Performed At | + + + | MRN: | [facility] | | [id number] Date: 07/01/2019Patient Name: Aaron Justin #: | ENDOSCOPY | | [id number] of : 1960SN: [id number] Type: | | | AmbulatoryRoom: Endo 5Procedure: | | | ColonoscopyIndications: Therapeutic procedure for known | | | colon polypPatient Profile: This is a 59 year old male. Refer to | | | note in patient chart for | | | documentation of history and physical.Providers: CHARLES | | | MD PEDRO (Doctor), CATARINA SOLIMAN RN | | | (Nurse), NGHIA YBARRA (Silk Top Hat Body Maker)Referring MD: CHARLES | | | MASON VASQUEZequesting [...] the procedure. The [employer] | | | [id number] Colonoscope #[id number] was introduced | | | through the [...] | | any questions, please contact the jig maker. | | | - Clear liquid diet [...]
--- OUTSIDE RECORDS SUMMARY | ~2019-12-19 | XMS | Encounter Summary ---
Demographics + + + | Address | [address] [address] | | | [place] [address] | + + + | Home Phone [...] + + + | Author | [facility] | | | and [place] | + + + | Organization | [facility] | | | [...] Team Providers + +------+ + | Care Vehicle Modification Technician Name | Role | Phone | [...] | | | | low back | [address] | [address] | | | | | pain with | [place], | [place], [place] | | | | | bilateral | [place] [address] | [address] | | | | | sciatica | Phone: | Phone: | | | | | Bilateral | [phone] | [phone] | | | | | foot-drop | Fax: | Fax: | | | | | Numbness of | [phone] | [phone] | | | | | both lower [...] | bilateral | [address] | | | | n | low back | [address] | [place], | | | | | pain with | [place], | [place] [address] | | | | | bilateral | [place] [address] | Phone: | | | | | sciatica | Phone: | [phone] | | | | | Bilateral | [phone] | Fax: | | | | | foot-drop | Fax: | [phone] | | | | | Numbness of | [phone] | | | | | | both [...] Rehabilitatio | | [address] | | | | n | | [address] | [place], | | | | | | [place], | [place] [address] | | | | | | [place] [address] | Phone: | | | | | | Phone: | [phone] | | | | | | [phone] | Fax: | | | | | | Fax: | [phone] | | | | | | [phone] | | +--------+--------+ + + + + Encounter Details +--------+---------+ + + + | Date | Type | Department | Care Team | Description | +--------+---------+ + + + | 12/15/ | Office | [facility] | Riccardo Malhotra, | Bilateral foot-drop | | 2019 | Visit | PHYSIATRY [address] | MD [address] | (Primary Dx); | | | | [address] | [place] | Chronic bilateral | | | | [place] | [address] | low back pain with | | | | [address] | | bilateral sciatica; | | | | [phone] | | Meralgia | | | | [...] encounter Patient Instructions Patient Instructions Bianca Hernandez, Audit Consultant - 12/15/2018 1:00 PM PDTX-rays have been [...] of chronic renal failure, stage 3 (moderate) ([facility]) 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 [...] FLEXIBLE SIGMOIDOSCOPY; Surgeon: Mehul Bowles MD; Location: [facility] MAIN OR COLONOSCOPY 05/22/2017 FINGER SURGERY Right 1974 AMPUTATION 5th finger TONSILLECTOMY 1969 TOTAL NEPHRECTOMY Left 06/11/2018 Procedure: LEFT LAPAROSCOPIC NEPHRECTOMY WITH NODE DISSECTION AND LAPAROSCOPIC LYSIS OF AD HESIONS; Surgeon: Patrice Cross MD; Location: [facility] MAIN OR Unlisted Procedure Arthroscopy [...] [place] | | | | | | [address] | | | | | | | [...]
--- OUTSIDE RECORDS SUMMARY | ~2019-12-19 | XMS | Encounter Summary ---
Demographics + + + | Address | [address] [address] | | | [place] [address] | + + + | Home Phone [...] Team Providers + +------+ + | Care Forensic Dna Analyst Name | Role | Phone | [...] | | | | Peritoneal | | [address] Phone: | | | | | adhesion | | [phone] | | | | | Procedures | | Fax: | | | | | [place] FREE[place] | | [phone] | | | | | BOWEL | | | | | | | ADHESION,ENT | | | | | | | EROLYSIS [place] | | | | | | | [...] 06/19/ | | [address] [place] | [address] | | | 2018 | | [address] | | | | | | [phone] | | | +--------+ + + + [...] might be different from t he original. [facility] UROLOGY DISCHARGE SUMMARY Patient Name: Lily [...] COUMADIN Discontinued Medications [place] Follow-Up: 1. [facility] in 1 week. Please call during business hours to set up your urology follow up appointm ent. Electronically Signed by: Patrice Cross MD, 06/16/2018 7:42 [facility] documented in this encou nter Discharge [...] on your remaining kidney. CONTACT INFORMATION: - [facility] Office Number: [facility] Office: [phone] [facility] Office: FOLLOWUP [...] Weakness, dizziness, or fainting Date Last Reviewed: 05/12/201619995632-3483 [employer]. [address] [place], [place] [id number]. All righ ts reserved. This information is [...] out or is dislodged Date Last Reviewed: 08/12/201619990330-5821 [employer]. [address] [place] [address], [place] [address]. All righ ts reserved. This information is not intended as a substitute for professional medical care. Always follow your healthcare professional's instructions. [facility] Patient Belongings Lily Valentin 1960 [...] Were Given To: octavio and valubles to [facility] #[id number] Patient Signature: Clinician/Paint Line Supervisor Signature: documented in this encounter Medications at [...] 11:59 AM PSTPt has d/c orders to [place] SNF. Pt h as sacral friction [...] 06/19/2018 7:[address] [facility] UROLOG[facility] DAILY PROGRESS NOTE ID: Lily Valentin [...] Signed by: Xavier Yip PA-C, 06/19/2018 7:40 [facility] Sasha Blevins, [facility] - 06/18/2018 4:52 PM PSTSOCIAL WORK D/C PLAN: SNF ([facility]) vs home NEXT STEPS: [facility] in [place], [place] has accepted pt pending insurance authorization. [...] d/c to a SNF. SW called to [facility] SNF and they are yash [place]. SW spoke to Angelika, Director at [facility]. She stated that pt is not appropr iate for home health. She recommends SNF. She also stated that pt's insurance is difficult t o work with and only authorized 1 home health visit and it took 10 plus days to get auth'ed for any other home health visits. ASSESSMENT/CHART REVIEW: 58 year old male with [employer] [place] insurance from [employer]. Pt lives with his elderly mother. Pt is bariatric. D/C TRANSPORT: jasson Matta- [phone]. SW originally asked for him to pick [...] no he lp, support at home. CONTACTS: Tboy Vlaentin, mother- [phone] Electronically signed by JOSH Mcbride 06/18/2018 4:52 [...] 4:35 PM PSTSOCIAL WORK D/C PLAN: SNF ([facility]) vs home? NEXT STEPS: Need PT to re-evaluate for disposition. PT can call this SW at [phone] to discuss d/c plan satya concerns. Awaiting returned call from [facility] SNF admissions ([phone]) re: if pt wo uld be appropriate [...] d/c to a SNF. SARAH called to [facility] SNF and they a re reviewing. SARAH spoke to Angelika, Director at [facility]. She stated that pt is not appropr iate for home health. She recommends SNF. She also stated that pt's insurance is difficult t o work with and only authorized 1 home health visit and it took 10 plus days to get auth'ed for any other home health visits. ASSESSMENT/CHART REVIEW: 58 year old male with [employer] [place] insurance from [place], [place] [employer]. Pt lives with his elderly mother. Pt is bariatric. D/C TRANSPORT: Paxtonjasson- [phone]. SW originally asked for him to pick [...] support at home. CONTACTS: Toby Valentin, mother- [phone] Electronically signed by JOSH Mcbride 06/17/2018 4:38 PM PSTBest, Kasia Brink RN - 06/17/2018 11:33 AM PSTFormatting of this no te might be different from the original. [facility] Wound, Ostomy, & Continence Nursing Note Date [...] 1 08/17/2017 8:05 AM PST [facility] UR[facility] DAILY PROGRESS NOTE ID: Lily Valentin [...] Signed by: Patrice Cross MD, 06/17/2018 8:05 [facility] Patrice Ag MD - 06/16 7:42 AM PST [facility] UR[facility] DAILY PROGRESS NOTE ID: Lily Valentin [...] Signed by: Patrice Cross MD, 06/16/2018 7:42 [facility] Jack Lewis MD - 06/15/2018 8:00 [...] 36 sec IMAGING: All images reviewed by nh NEDA08/15/2017 Large amount of gas in intestines, [...] - Laxatives as needed for continued constipation. Deovn Lewis MD - 06/15/2018 12:27 AM PDTCalled [...] - 06/13/2018 12:20 PM PDT [facility] UR[facility] DAILY PROGRESS NOTE ID: Lily Valentin [...] Signed by: Xavier Yip PA-C, 06/13/2018 12:20 [facility] Associated attestation - Patrice Cross MD [...] - 06/12/2018 5:33 AM PDT [facility] DAILY PROGRESS NOTE ID: Lily Valentin [...] Signed by: Patrice Cross MD, 06/12/2018 5:33 [facility] documented in this encou nter Plan [...] [place] | | | | | | [id number] | | | | | | | [...] | | | | to 3.5Performed by [facility] | | LABORATORY | | | | [address], | | [place] | | | | [place] [address] | | | | + + + + + + + + | Specimen | + + | Blood specimen | | (specimen) | + + + + + + + | Performing | Address | City/State/Zipcode | Phone Number | | Organization | | | | + + + + + | [facility] | [address] | [place] [address] | | | [facility] | | | | | LABORATORY MOA | | | | + + + [...] PROVIDENCE | | | | Performed by [facility] [address] | | SACRED | | | | [address] [place] | | HEART | | | | [address] | | MEDICAL | | | | [...] + + | [facility]ERT[facility] | [address] | [place] [address] | | | [facility] | [...] | | | | to 3.5Performed by [facility] | | LABORATORY | | | | [address], | | [place] | | | | [place] [address] | | | | + + + + + + + + | Specimen | + + | Blood specimen | | (specimen) | + + + + + + + | Performing | Address | City/State/Zipcode | Phone Number | | Organization | | | | + + + + + | ROBERTA [facility] | [address] | [place] [address] | | | [facility] | [...] | | | | to 3.5Performed by [facility] | | LABORATORY | | | | [address], | | [place] | | | | [place] [address] | | | | + + + + + + + + | Specimen | + + | Blood specimen | | (specimen) | + + + + + + + | Performing | Address | City/State/Zipcode | Phone Number | | Organization | | | | + + + + + | SUSIEDEYSIKathrin WADSWORTH | [address] | [place] [address] | | | [facility] | [...] PROVIDENCE | | | | Performed by [facility] [address] | | SACRED [address] | [place] [address] | | | HE[facility] MEDICAL [facility]ENTER | [...] | | | | to 3.5Performed by [facility] | | LABORATORY | | | | [address], [place], | | [place] | | | | [place] [address] | | | | + + + + + + + + | Specimen | + + | Blood specimen | | (specimen) | + + + + + + + | Performing | Address | City/State/Zipcode | Phone Number | | Organization | | | | + + + + + | ROBERTA [facility]SW[facility] | [address] [place] | [place] [address] | | | [facility] | [...] | | MEDICAL | | | | [facility] [address] | | [place] | | | | [place] [address] | | LABORATORY | | | | [...] + + | PROVIDEDEYSIE [facility] | [address] | [place] [address] | | | [facility] | [...] | | MEDICAL | | | | [facility] [address], | | CENTER | | | | [place] [address] | | LABORATORY | | | | [...] + + | ROBERTA [facility]SW[facility] | [address] | [place] [address] | | | [facility] | [...] | | | | to 3.5Performed by [facility] | | LABORATORY | | | | [address], | | [place] | | | | [place] [address] | | | | + + + + + + + + | Specimen | + + | Blood specimen | | (specimen) | + + + + + + + | Performing | Address | City/State/Zipcode | Phone Number | | Organization | | | | + + + + + | [facility] | [address] | [place] [address] | | | [facility] | [...] | | | | | seconds.Performed by [facility] | | | | | | [address], | | | | | | [place] [address] | | | | + + + + + + + + | Specimen | + + | Blood specimen | | (specimen) | + + + + + + + | Performing | Address | City/State/Zipcode | Phone Number | | Organization | | | | + + + + + | ROBERTA [facility] | [address] | [place] [address] | | | [facility] | [...] ENCE | | | Basophils | by [facility] [address], | K/uL | SACRED | | | | [place] [address] | | HEART | | | |Performed by [facility] [address], [place] [address] | | MEDICA L | | | [...] SACRED | [address] | [place] [address] | | | [facility] | | | [...] | | MEDICAL | | | | [facility] [address], | | CENTER | | | | [place] [address] | | LABORATORY | | | | [...] + | ROBERTA [facility]ADSWOR[facility] | [address] | [place] [address] | | | [facility] | [...] PROVIDE NCE | | | | by [facility] [address], | | SACRED | | | | [place] [address] | | HEART | | | |Performed by [facility] [address], [place] [address] | | MEDICAL | | | | [...] + + | ROBERTA [facility]ADSWOR[facility] | [address] | [place] [address] | | | [facility] | [...] | | | | to 3.5Performed by [facility] | | LABORATORY | | | | [address], | | [place] | | | | [place] [address] | | | | + + + + + + + + | Specimen | + + | Blood specimen | | (specimen) | + + + + + + + | Performing | Address | City/State/Zipcode | Phone Number | | Organization | | | | + + + + + | [facility] | [address] | [place] [address] | | | [facility] | [...] | | MEDICAL | | | | [facility] [address], | | CENTER | | | | [place] [address] | | LABORATORY | | | | [...] + + | ROBERTA WADSWORTH | [address] | [place] [address] | | | [facility] | [...] | | MEDICAL | | | | [facility] [address], | | CENTER | | | | [place] [address] | | LABORATORY | | | | [...] + + | ROBERTA SACRCHRISTIAN | [address] | [place] [address] | | | [facility] | [...] PROVIDE NCE | | | | by [facility] [address], | | SACRED | | | | [place] [address] | | HEART | | | |Performed by [facility] [address], [place] [address] | | MEDICAL | | | | [...] + | ROBERTA [facility] | [address] | [place] [address] | | | [facility]ICAL [facility]ENTER | [...] | | MEDICAL | | | | [facility] [address], | | CENTER | | | | [place] [address] | | LABORATORY | | | | [...] + + | [facility] | [address] | [place] [address] | | | [facility]ENTER | [...] [facility]ENCE | | | | Performed by [facility] [address] | | SACRED | | | | [address] [place] | | HEART | | | | [address] | | MEDICAL | | | | [...] + + | ROBERTA [facility]ADSWOR[facility] | [address] | [place] [address] | | | [facility] | [...] | | MEDICAL | | | | [facility] [address], | | CENTER | | | | [place] [address] | | LABORATORY | | | | [...] + + | SUSIEAKILAH [facility] | [address] | [place] [address] | | | [facility] | | | | | STEPHEN CAVANAUGH | | | | + + + + + Tissue Request For Pathology (06/11/2018 2:57 PM PDT) + + | Specimen | + + | | + + + + + | Narrative | Performed At | + + + | | [facility] | | [address]ILY [place] | [place] | | : 1960 AGE: 58 years SEX: Male | MEDICAL CENTER | | | LABORATORY | | Acct: [id number] Location: | [facility] | | [facility] SURG; 552; 552-02 Case #: | | | [id number] Ordering: PATRICE CROSS MD | | | Client: [facility] | | | Copy To: Printed: [...] MDVerify Date: 06/18/2018 12:37 pmPerforming Location: [facility] | | | [facility], [facility] [address] | | | DESCRIPTION:This case is received [...] | | | ureteral and renal vasculature margins.Seismic Observer sections are | | | submitted as [...] pelvis and sinus | | | fat. Seismic Observer sections are submitted during second look with [...] + + | ROBERTA [facility]ADSW[facility] | [address] | [place] [address] | | | [facility] | [...] + + + | Specimen Expiration Date: [id number] | [facility] | | | [place] | | | [facility] | | | B[facility]OD [facility] | + + + + + + + + | Performing | Address | City/State/Zipcode | Phone Number | | Organization | | | | + + + + + | REFERENCE [facility] | [address] | [place] [address] | [phone] | | [place] | [...] + + + | Specimen Expiration Date: [id number] | [facility]FERENCE [facility] | | | [place] | | | [facility] | | | [facility] | + + + + + + + + | Performing | Address | City/State/Zipcode | Phone Number | | Organization | | | | + + + + + | REFERENCE LAB | [address] | [place] [address] | [phone] | | [place] | [...] | | | POC | Performed by [facility] [address] | | [address]CR[address] | | | [address], [place] | | HEART | | | | [address] | | MEDICAL | | | | [...] + | ROBERT[facility]SW[facility] | [address] | [place] [address] | | | [facility] | [...] + + +--------+---+---+ | morphine 5 mg/mL SALES FLOOR MANAGER syringe | Rate/Dos | 06/13/20 | [...] | | | Loading Dose(mg): 0, Starting SALES FLOOR MANAGER | | | | | | | Dose(mg): 1, Incremental | | | | | | | Increase SALES FLOOR MANAGER Dose(mg): 0.5, | | | | | | | Maximum SALES FLOOR MANAGER Dose(mg): 2, Lockout | | | [...]
--- OUTSIDE RECORDS SUMMARY | ~2019-12-19 | XMS | Encounter Summary ---
Demographics + + + | Address | [address] | | | [place] [address] | + + + | Home Phone [...] [place] | | | | | [address] | | + + + + + Care Team Providers + +------+ + | Care Travelift Operator Name | Role | Phone | [...] | ascending | [address] | [place] | | | | | colon | [address] | [place] [address] | | | | | Procedures | Rd | floor | | | | | CONSULT TO | [place], [place] | [place], [place] | | | | | GI PROCEDURE | [address] | [address] | | | | | UNIT: | Phone: | Phone: | | | | | COLONOSCOPY | [phone] | [phone] | | | | | [place] ANES LWR | Fax: | Fax: | | | | | INTST NDSC | [phone] | [phone] | | | | | N[place] | | | | | | | COLONOSCOPY, | | | | | | | FLEX, | | | | | | | W/BIOPSY [place] | | | | | | | | | | | | | | COLONOSCOPY, | | | | | | | REMV LESN BY | | | | | | | SNARE | | | | | | | TECHNIQUE | | | | | | | [place] | | | | | | | [...] + + + + | 02/09/ | Dust Collector Ore Crushing | Digestive Health | Naveen Luke [address] | Adenomatous polyp of | | 2019 | | Center at [facility] 4th | MD Matt [address] | ascending colon | | | | Floor [address] | (Primary Dx) | | | | [address] | [place], [place] | | | | | Mailcode: CH6D | [address] | | | | | [facility] [facility] | [phone] | | | | | [place], [place] | | | | | | [address] | | | | | | [phone] | | | +--------+ + + + [...] Rd | | | | | | [place], [place] | | | | | | [address] | | | | | | [phone] | | | | | | | | +--------+---------+ + + + documented as of this encounter Visit Diagnoses + + | Diagnosis | + + | Adenomatous polyp of ascending colon - Primary | + + documented in this encounter"
--- OUTSIDE RECORDS SUMMARY | ~2019-12-19 | XMS | Encounter Summary ---
Demographics + + + | Address | [address] | | | [place] [address] | + + + | Home Phone [...] [place] | | | | | [address] | | + + + + + Care Team Providers + +------+ + | Care Veterinary Parasitologist Name | Role | Phone | + [...] | Procedural Unit | MD Steven [address] [facility] | | | | | ([facility]) at [facility] [address] | | | | | [address] | [place], [place] | | | | | Mailcode: [place] | [address] | | | | | for [facility] and | [phone] | | | | | [facility] 2 | | | | | | [place], [place] | | | | | | [address] | | | | | | [phone] | | | +--------+ + + + [...] Call the endoscopy department toll free ext. [phone] or After business hours or on weekends and holidays call the Hospital Tying Machine Operator Lumber toll free [phone] Ext. [phone] or and have the GI doctor sporting goods salesperson paged. The provider who performed your procedure [...] 11:54 AM PDT PRE PROCEDURE NOTE: MR# [id number] Subjective: Aaron Latham is a 59 y.o. [...] | 2019 | Visit | | [address] [facility] | | | | | | [facility] | | | | | | [place], [place] | | | | | | [address] | | | | | | [phone] | | | | | | | [...] 0.9 - 1.2 INR | [facility], | | | TIME | [...] + + | THOMAS [facility] | [address] [facility] | [place] [address] | | | OF CARE TESTS | | | | + + + + + COLONOSCOPY (04/14/2019 11:50 AM PDT) + + | Specimen | + + | | + + + + + | Narrative | Performed At | + + + | MRN: | [facility] | | [id number] Date: 04/14/2019Patient Name: Aaron Justin #: | ENDOSCOPY | | [id number] of : 1960SN: [id number] Type: | | | AmbulatoryRoom: Endo 5Procedure: [...] RN (Nurse), NGHIA YBARRA | | | (Dairy Laboratory Technician), PADMAJA ROSS | | | (Dairy Laboratory Technician)Referring MD: JACK TINOCO JR, | | | [...] the procedure. The Olympus | | | [id number] Colonoscope #[id number] was introduced | | | through the [...] questions, please contact the | | | lead esthetician. - Stop | | | anticoagulation (coumadin) [...]
--- OUTSIDE RECORDS SUMMARY | ~2019-12-19 | XMS | Encounter Summary ---
Demographics + + + | Address | [address] [address] | | | [place] [address] | + + + | Home Phone [...] Providers + +------+ + | Care Manager Ui Name | Role | Phone | + +------+ + | Sarah Carroll MD | PCP | | + +------+ + Encounter Details +--------+ + + + + | Date | Type | Department | Care Team | Description | +--------+ + + + + | 07/11/ | Orders Only | [facility] | Conversion | | | 2018 | | NEPRHOLOGY [place] | Transaction, | | | | | [address] | Provider Unknown | | | | | [address] [place], [place] | [phone] | | | | | [address] | | | | | | [phone] | | | +--------+ + + + [...] | | | | | | [facility] | | | | | | [address] | | | | | | | [...]
--- OUTSIDE RECORDS SUMMARY | ~2019-12-19 | XMS | Encounter Summary ---
Demographics + + + | Address | [address] [address] | | | [place] [address] | + + + | Home Phone [...] Team Providers + +------+ + | Care Employee Benefits Attorney Name | Role | Phone | + [...] | | [address] | [address] [place], [place] | | | | | [address] | [address] | | | | | [phone] | | | +--------+ + + + [...] | | | | | [place] | | | | | | [address] | | | | | | | | +--------+---------+ + + + documented as of this encounter Visit Diagnoses Not on filedocumented in this encounter"
--- OUTSIDE RECORDS SUMMARY | ~2019-12-19 | XMS | Encounter Summary ---
Demographics + + + | Address | [address] | | | [place] [address] | + + + | Home Phone [...] Author + + + | Author | [facility] | + + + | Organization | [facility] | + + + | Address | Unknown | + + + | Phone | Unavailable | + + + Support + + + + + | Name | Relationship | Address | Phone | + + + + + | Toby Latham | ANNA | [address] | | | | | [place] | | | | | [address] | | + + + + + Care Team Providers + +------+ + | Care Hollow Core Door Frame Assembler Name | Role | Phone | [...] | | | | | | [facility] | | | | | | Hospital Admitting | | | | | | Desk Located on the | | | | | | 9th floor | | | | | | [place], [place] | | | | | | [address] | | | +--------+ + + + [...] Rd | | | | | | [place], [place] | | | | | | [address] | | | | | | [phone] | | | | | | | | +--------+---------+ + + + documented as of this encounter Visit Diagnoses Not on filedocumented in this encounter"
--- OUTSIDE RECORDS SUMMARY | ~2019-12-19 | XMS | Encounter Summary ---
Demographics + + + | Address | [address] [address] | | | [place] [address] | + + + | Home Phone [...] Providers + +------+ + | Care Spray Worker Name | Role | Phone | [...] [place] | | | | | [place], [place] | [address] | | | | | [address] | | | | | | [phone] | | | +--------+ + + + [...] [place] | | | | | | [address] | | | | | | | [...] | e': 0.05 m/s Lateral E/e': 14.38 Pigment Mixer: | | | Authenticated by: PRAFUL CRUZ MD Report Date/Time: -- | | | [id number]:42 | | + + + + + [...] | 5.27 cmLVPWd: 1.53 cmLVOT Area: 3.98 [id number] Diam: 2.25 cm%FS: 29.74 %EF(Teich): | | [...] (A-L): 19.51 ml/m2LAAs | | A2C: 15.25 [id number] A-L A2C: 42.23 mlLALs A2C: 4.67 cmLAAs A4C: 19.09 [id number] | | A-L A4C: 57.52 mlLALs A4C: 5.38 cmRAAs: 18.09 [id number] A-L: 55.31 mlRAESV MOD: | | 52.35 mlRALs: 5.02 cmTAPSE: 2.41 cmAV maxP.54 mmHgAV meanP.73 mmHgAV | | Vmax: 1.62 m/Kristy Vmean: 1.12 m/Kristy VTI: 27.29 cmAVA Vmax: 3.41 cm2AVA (VTI): | | 4.05 rh1PLIH Vmax: 0.00 cm2/m2AVAI (VTI): 0.00 cm2/m2LVOT maxP.71 mmHgLVOT | | meanP.84 mmHgLVSI Dopp: 40.80 ml/m2LVSV Dopp: 110.56 mlLVOT Vmax: 1.38 | | m/sLVOT Vmean: 1.04 m/sLVOT VTI: 27.72 cmMV A Zack: 0.79 m/sMV DecT: 349.62 msMV | | E Zack: 0.74 m/sMV E/A Ratio: 0.93MV PHT: 101.39 msMVA By PHT: 2.16 ra9Kqdata e': | | 0.04 m/sSeptal E/e': 16.78Lateral e': 0.05 m/sLateral E/e': 14.38 | | Pigment Mixer:Authenticated by: Tiesha BOOTHE Date/Time: -- | | [id number]:42 IMPRESSION: 1. Overall left ventricular systolic function [...] | |Lateral E/e': 14.38 | | | |Pigment Mixer: | |Authenticated by: PRAFUL CRUZ MD | |Report Date/Time: -- [id number]:42 | | | |IMPRESSION: | |1. Overall [...]
--- OUTSIDE RECORDS SUMMARY | ~2019-12-19 | XMS | Encounter Summary ---
Demographics + + + | Address | [address] | | | [place] [address] | + + + | Home Phone [...] [address] | | | | | [address] | | + + + + + Care Team Providers + +------+ + | Care Environmental Research Scientist Name | Role | Phone | [...] 04/15/ | Telephone | [facility] | [place], | Telephone follow-up | | 2019 | | [address] | MD [address] | | | | | [address] Mailcode: | Jeffery De La Torre Rosario | | | | | [facility] | [place], [place] | | | | | [facility], | [address] | | | | | Building [address] | [phone] | | | | | | | | | | | [address] | | | | | | [phone] | | | +--------+ + + + [...] Rd | | | | | | [place], [place] | | | | | | [address] | | | | | | [phone] | | | | | | | | +--------+---------+ + + + documented as of this encounter Visit Diagnoses Not on filedocumented in this encounter"
--- OUTSIDE RECORDS SUMMARY | ~2019-12-19 | XMS | Encounter Summary ---
Demographics + + + | Address | [address] [address] | | | [place] [address] | + + + | Home Phone [...] Team Providers + +------+ + | Care Fertilizer Applicator Name | Role | Phone | [...] | | | | Peritoneal | | [address] Phone: | | | | | adhesion | | [phone] | | | | | Procedures | | Fax: | | | | | SC FREEING | | [phone] | | | | | BOWEL | | | | | | | ADHESION,ENT | | | | | | | EROLYSIS SC | | | | | | | [...] | | | | [place] | [address] | LAPAROSCOPIC LYSIS | | | | [address] | | OF ADHESIONS | | | | [phone] | | | +--------+---------+ + + + [...] might be different from t he original. [facility] UROLOGY DISCHARGE SUMMARY Patient Name: Lily [...] COUMADIN Discontinued Medications [place] Follow-Up: 1. [facility] in 1 week. Please call [phone] during business hours to set up your urology follow up appointm ent. Electronically Signed by: Patrice Cross MD, 06/16/2018 7:42 [facility] documented in this encou nter Discharge Instructions Instructions Teresita Rodgers RN - 06/16/2018Formatting of this note might be different f rom the original. [facility] DISCHARGE INSTRUCTIONS FOLLOWING LAPAROSCOPIC REMOVAL OF [...] CONTACT INFORMATION: - [facility] Office Number: [facility] Office: [facility] Office: FOLLOWUP INFORMATION: - Dr. Cross will [...] Weakness, dizziness, or fainting Date Last Reviewed: 05/12/201619994140-3835 [employer] [address] [place] [address]. All righ ts reserved. This information is [...] out or is dislodged Date Last Reviewed: 08/12/201619994975-6208 [employer] [address] [place] [address], [place] [address]. All righ ts reserved. This information is not intended as a substitute for professional medical care. Always follow your healthcare professional's instructions. [facility] Patient Belongings Lily Valentin 1960 Valuables [...] Were Given To: octavio and val[id number] Patient Signature: Clinician/Prefitter Doors Signature: documented in this encounter Medications at [...] 11:59 AM PSTPt has d/c orders to [place], [place] SNF. Pt h as sacral friction [...] - 06/19/2018 7:[address] [facility] UROLOGY DAILY PROGRESS NOTE ID: Lily [...] Signed by: Xavier Yip PA-C, 06/19/2018 7:40 [facility] Sasha Blevins, [facility] - 06/18/2018 4:52 PM PSTSOCIAL WORK D/C PLAN: SNF ([facility]) vs home NEXT STEPS: [facility] SNF in [place], [place] has accepted pt pending insurance authorization. [...] d/c to a SNF. SW called to [facility] SNF and they are yash winchester. SW spoke to [facility], Director at [facility]. She stated that pt is not appropr iate for home health. She recommends SNF. She also stated that pt's insurance is difficult t o work with and only authorized 1 home health visit and it took 10 plus days to get auth'ed for any other home health visits. ASSESSMENT/CHART REVIEW: 58 year old male with [employer] Cross [place] insurance from [place]. Pt lives with his elderly mother. Pt is bariatric. D/C TRANSPORT: jasson Matta- [phone]. SW originally asked for him to pick [...] support at home. CONTACTS: Toby Valentin, mother- [phone] Electronically signed by JOSH Mcbride 06/18/2018 4:52 [...] 4:35 PM PSTSOCIAL WORK D/C PLAN: SNF ([facility]) vs home? NEXT STEPS: Need PT to re-evaluate for disposition. PT can call this SW at [phone] to discuss d/c plan satya concerns. Awaiting returned call from [facility] SNF admissions ([phone]) re: if pt wo uld be appropriate [...] d/c to a SNF. SARAH called to [facility] SNF and they a re reviewing. SARAH spoke to Angelika, Director at [facility]. She stated that pt is not appropr iate for home health. She recommends SNF. She also stated that pt's insurance is difficult t o work with and only authorized 1 home health visit and it took 10 plus days to get auth'ed for any other home health visits. ASSESSMENT/CHART REVIEW: 58 year old male with [employer] [place] insurance from [place]. Pt lives with his elderly mother. Pt is bariatric. D/C TRANSPORT: jasson Matta- [phone]. SARAH originally asked for him to pick [...] support at home. CONTACTS: Toby Valentin, mother- [phone] Electronically signed by JOSH Mcbride 06/17/2018 4:38 PM Kasia Stroud RN - 06/17/2018 11:33 AM PSTFormatting of this no te might be different from the original. [facility] [...] - 1 08/17/2017 8:05 AM PST [facility] UROLOGY DAILY PROGRESS NOTE ID: Lily [...] Signed by: Patrice Cross MD, 06/17/2018 8:05 [facility] Patrice Ag MD - 06/16 7:42 AM PST [facility] UROLOGY DAILY PROGRESS NOTE ID: Lily [...] Signed by: Patrice Cross MD, 06/16/2018 7:42 [facility] Jack Lewis MD - 06/15/2018 [...] 36 sec IMAGING: All images reviewed by az NEDA08/15/2017 Large amount of gas in intestines, [...] PA-C - 06/13/2018 12:20 PM PDT [facility] UROLOGY DAILY PROGRESS NOTE ID: Lily [...] Signed by: Xavier Yip PA-C, 06/13/2018 12:20 [facility] Associated attestation - Patrice Cross [...] being treated w/ AF powder and dri leiel pads to wick moisture. No additional recommendations. atrice Cross MD - 06/12/2018 5:33 AM PDT [facility] UROLOGY DAILY PROGRESS NOTE ID: Lily [...] Signed by: Patrice Cross MD, 06/12/2018 5:33 [facility] documented in this encou nter Plan of Treatment +--------+---------+ + + + | Date | Type | Specialty | Care Team | Description | +--------+---------+ + + + | 03/17/ | Office | Cardiology | Lorraine Clifton DO | | | 2019 | Visit | | [address] | | | | | | [place] | | | | | | [id number] | | | | | | | [...] | | | | to 3.5Performed by [facility] | | LABORATORY | | | | [address], | | [place] | | | | [place] [address] | | | | + + + + + + + + | Specimen | + + | Blood specimen | | (specimen) | + + + + + + + | Performing | Address | City/State/Zipcode | Phone Number | | Organization | | | | + + + + + | ROBERTA [facility] | [address] | [place] [address] | | | [facility] | | | | | LABORATORY [place]ERN[place] [...] [facility] | | | | Performed by [facility] [address] | | SACRED | | | | [address] [place] | | HEART | | | | [address] | | MEDICAL | | | | [...] + + | ROBERTA [facility] | [address] | [place] [address] | | | [facility] | | | | | LABORATORY MAO [...] | | | | to 3.5Performed by [facility] | | LABORATORY | | | | [address], | | [place] | | | | [place] [address] | | | | + + + + + + + + | Specimen | + + | Blood specimen | | (specimen) | + + + + + + + | Performing | Address | City/State/Zipcode | Phone Number | | Organization | | | | + + + + + | ROBERTA [facility] | [address] | [place] [address] | | | [facility] | | | | | STEPHEN CAVANAUGH [...] | | | | to 3.5Performed by [facility] | | LABORATORY | | | | [address], | | [place] | | | | [place] [address] | | | | + + + + + + + + | Specimen | + + | Blood specimen | | (specimen) | + + + + + + + | Performing | Address | City/State/Zipcode | Phone Number | | Organization | | | | + + + + + | SUSIEAKILAH WADSWORTH | [address] | [place] [address] | | | [facility] | | | | | LABORATORY MAO [...] ROBERTA | | | | Performed by [facility] [address] | | SACRED | [...] [address] | [place] [address] | | | [facility] | [...] | | | | to 3.5Performed by [facility] | | LABORATORY | | | | [address], [place], | | [place] | | | | [place] [address] | | | | + + + + + + + + | Specimen | + + | Blood specimen | | (specimen) | + + + + + + + | Performing | Address | City/State/Zipcode | Phone Number | | Organization | | | | + + + + + | ROBERTA [facility] | [address] | [place] [address] | | | [facility] | | | | | STEPHEN CAVANAUGH [...] | | MEDICAL | | | | [facility] [address], | | [place] | | | | [place] [address] | | LABORATORY | | | | [...] + + | PROVIDEDEYSIE SACRCHRISTIAN | [address] | [place] [address] | | | [facility] | | | | [...] | | MEDICAL | | | | [facility] [address], | | CENTER | | | | [place] [address] | | LABORATORY | | | | [...] + + | ROBERTA [facility]SW[facility] | [address] | [place] [address] | | | [facility] | | | | | LABORATORY CERNER [...] | | | | to 3.5Performed by [facility] | | LABORATORY | | | | [address], | | [place] | | | | [place] [address] | | | | + + + + + + + + | Specimen | + + | Blood specimen | | (specimen) | + + + + + + + | Performing | Address | City/State/Zipcode | Phone Number | | Organization | | | | + + + + + | [facility] | [address] | [place] [address] | | | [facility] | | | | | LABORATORY CERNER [...] | | | | | seconds.Performed by [facility] | | | | | | [address], | | | | | | [place] [address] | | | | + + + + + + + + | Specimen | + + | Blood specimen | | (specimen) | + + + + + + + | Performing | Address | City/State/Zipcode | Phone Number | | Organization | | | | + + + + + | PROVIDEDEYSIE [facility] | [address] | [place] [address] | | | [facility] | | | | | LABORATORY CERNER [...] ENCE | | | Basophils | by [facility] [address], | K/uL | SACRED | | | | [place], [place] | | HEART | | | |Performed by [facility] [address], [place], [place] | | MEDICA L | | [...] + + | BREANNAE [facility] | [address] | [place], [place] | | | [facility] | | | | | LABORATORY CERNER [...] | | MEDICAL | | | | [facility] [address], | | CENTER | | | | [place] [address] | | LABORATORY | | | | [...] + + | ROBERTA W[facility]SW[facility] | [address] | [place] [address] | | | [facility] | | | | | STEPHEN CAVANAUGH [...] PROVIDE NCE | | | | by [facility] [address], | | SACRED | | | | [place] [address] | | HEART | | | |Performed by [facility] [address], [place] [address] | | MEDICAL | | | | [...] + + | ROBERTA [facility] | [address] | [place] [address] | | | [facility] | | | | | LABORATORY MAO [...] | | | | to 3.5Performed by [facility] | | LABORATORY | | | | [address], | | [place] | | | | [place] [address] | | | | + + + + + + + + | Specimen | + + | Blood specimen | | (specimen) | + + + + + + + | Performing | Address | City/State/Zipcode | Phone Number | | Organization | | | | + + + + + | [facility] | [address] | [place] [address] | | | [facility] | | | | [...] | | MEDICAL | | | | [facility] [address], | | CENTER | | | | [place] [address] | | LABORATORY | | | | [...] + + | SUSIEDEYSIJustyna WADSWORTH | [address] | [place] [address] | | | [facility] | | | | | LABORATORY MAO [...] | | MEDICAL | | | | [facility] [address], | | CENTER | | | | [place] [address] | | LABORATORY | | | | [...] + + | ROBERTA [facility] | [address] | [place] [address] | | | [facility] | | | | [...] PROVIDE NCE | | | | by [facility] [address], | | SACRED | | | | [place] [address] | | HEART | | | |Performed by [facility] [address], [place] [address] | | MEDICAL | | | | [...] + + | [facility]ERT[facility] | [address] | [place] [address] | | | [facility] | | | | | LABORATORY [...] | | MEDICAL | | | | [facility] [address], | | CENTER | | | | [place] [address] | | LABORATORY | | | | [...] [facility] | [address] | [place] [address] | | | HE[facility] MEDICAL CENTER | [...] [facility] | | | | Performed by [facility] [address] | | SACRED | | | | [address] [place] | | HEART | | | | [address] | | MEDICAL | | | | [...] [facility]A [facility] | [address] | [place] [address] | | | [facility] | | | | | LABORATORY [place]ERNER [...] | | MEDICAL | | | | [facility] [address], | | CENTER | | | | [place] [address] | | LABORATORY | | | | [...] + + | [facility]ERT[facility] | [address] | [place] [address] | | | [facility] | | | | | STEPHEN CAVANAUGH | | | | + + + + + Tissue Request For Pathology (06/11/2018 2:57 PM PDT) + + | Specimen | + + | | + + + + + | Narrative | Performed At | + + + | | [facility] | | LILY VALENTIN | GABLE | | : 1960 AGE: 58 years SEX: Male | MEDICAL CENTER | | | LABORATORY | | Acct: [id number] Location: | [facility] | | [facility] SURG; 552; 552-02 Case #: | | | [id number] Ordering: PATRICE CROSS MD | | | Client: [facility] | | | Copy To: [...] | MDVerify Date: 06/18/2018 12:37 pmPerforming Location: [facility] | | | [facility], [facility] [address] | | | DESCRIPTION:This case is received [...] | | | ureteral and renal vasculature margins.Skidder Runner sections are | | | submitted as [...] pelvis and sinus | | | fat. Skidder Runner sections are submitted during second look with [...] + + | [facility]ERT[facility] | [address] | [place] [address] | | | [facility] | | | | | STEPHEN CAVANAUGH [...] | | | | | | LAB [facility] | | | | | | [facility] | | | | | | [facility] | | | | | | BLOOD | | | | | | CENTER | | + + + + + + | Rh Type | PositiveComment: Patient | | REFERENCE | | | | is remote crossmatch | | LAB [facility] | | | | eligible | | [...] + + + | Specimen Expiration Date: [id number] | REFERENCE LAB | | | [facility] | | | [facility] | | | [facility]OD CENTER | + + + + + + + + | Performing | Address | City/State/Zipcode | Phone Number | | Organization | | | | + + + + + | REFERENCE LAB | [address] | [place] [address] | [phone] | | [facility] [facility] | | | | | [facility] [...] | | | | | | LAB [facility] | | | | | | [facility] | | | | | | [facility] | | | | | | BLOOD | | | | | | CENTER | | + + + + + + | Rh Type | Positive | | REFERENCE | | | | | | LAB [facility] | | | | | | [facility] | | | | | | [facility] | | | | | | BLOOD | | | | | | CENTER | | + + + + + + | Antibody | Negative | | REFERENCE | | | Screen | | | LAB [facility] | | | | | | [facility] [...] + + + | Specimen Expiration Date: [id number] | REFERENCE LAB | | | [facility] | | | [facility] | | | [facility]OD CENTER | + + + + + + + + | Performing | Address | City/State/Zipcode | Phone Number | | Organization | | | | + + + + + | REFERENCE LAB | [address] | [place] [address] | [phone] | | [facility] [facility] | | | | | [facility] [...] | | | POC | Performed by [facility] [address] | | SACRED | | | | [address], [place] | | HEART | | | | [address] | | MEDICAL | | | | [...] + + | ROBERTA [facility] | [address] | [place] [address] | | | [facility] | | | | | LABORATORY MAO [...]
--- OUTSIDE RECORDS SUMMARY | ~2019-12-19 | XMS | Encounter Summary ---
Demographics + + + | Address | [address] | | | [place] [address] | + + + | Home Phone [...] [place] | | | | | [address] | | + + + + + Care Team Providers + +------+ + | Care Outboard System Operator Name | Role | Phone | [...] | (Primary Dx); | | | [facility] | [address] | Essential | | | | [address] | [place], [place] | hypertension; | | | | Mail Code: OC8PM | [address] | Congestive heart | | | | [facility] | [phone] | failure, unspecified | | | | and Healing, | | HF chronicity, | | | | Building [address] | | unspecified heart | | | | [place], [place] | | failure type (HCC); | | | | [address] | | Subclinical | | | | [phone] | | hypothyroidism; | | | | [...] sit, stand or walk. Surgery check-in location: [address], 1st Floor [facility] Surgery Check in Time: The Preoperative Medicine [...] ch as Uber/Lyft), or public transportation. An Uber/Lyft/commercial truck driver does not count as the [...] it is after office hours, call the [facility] food bagging machine operator at [phone] and ask them to page him or [...] Proposed Procedure/Date: Colonoscopy/EGD 04/14/19 Proposed Procedure Location: [facility] HISTORY OF PRESENT ILLNESS: Aaron Latham [...] Personally reviewed [facility]. Findings pertinent to this pr eoperative visit are as follows: Clinic notes, Echo, referral Perioperative risk calculators 2014 ACC/AHA Perioperative Cardiac Risk Stratification (assumes non-emergent, non-cardiac p rocedure) Are active cardiac conditions present? No Calculate the combined surgical and patient-specific risk: using the Farha perioperative ca rdiac risk calculator, the risk [...] contribute to this patient's care. GEORGIANA Reynolds [facility] PB PREOPERATIVE MEDICINE CLINIC AT [address] [address] I spent time counseling the [...] Rd | | | | | | [place], [place] | | | | | | [address] | | | | | | [phone] | | | | | | | | +--------+---------+ + + + documented as of this encounter Procedures + +--------+ + + + | Procedure Name | Priori | Date/Time | Associated Diagnosis | Comments | | | ty | | | | + +--------+ + + + | IN COLLECTION VENOUS | Routin | 03/30/2019 | [...] | | | LABORATORY | | | [place] | | | SERVICES, | | | [...] MDRD equation recommended by the National | [facility] | | Kidney Disease Education Program. Estimated [...] | + + + + + | [facility] | [address] | [place] [address] | | | SERVICES, CORE | PARK [...] + + + | ECG | Prolonged IN interval | | [facility] DEPT | | [...] DEPT OF | [address] | [place], [place] | | | CARDIOLOGY | [address] | [address] | | + + + + + [...]
--- OUTSIDE RECORDS SUMMARY | ~2019-12-19 | XMS | Encounter Summary ---
Demographics + + + | Address | [address] [address] | | | [place] [address] | + + + | Home Phone [...] Team Providers + +------+ + | Care Anthropology Faculty Member Name | Role | Phone | + +------+ + | Sarah Carroll MD | PCP | | + +------+ + Encounter Details +--------+---------+ + + + | Date | Type | Department | Care Team | Description | +--------+---------+ + + + | 06/15/ | Office | [facility] | Jewel Ulloa MD | Chronic kidney | | 2019 | Visit | NEPHROLOGY [place] | [address] [place] | disease, stage 3 | | | | [address] | [address] [place], [place] | (HCC) (Primary Dx); | | | | [address] | [address] | Anemia of chronic | | | | [place], [place] | | renal failure, stage | | | | [address] | | 3 (moderate) ([facility]); | | | | [phone] | | Persistent | | | | [...] | | | | 59.9 in adult ([facility]); | | | | | | Essential [...] RFP, CBC, uric acid, iPTH, Urine total ynkezga-vl-ccdusnpuyv ratio before he comes back in 6 [...] RFP, CBC, uric acid, iPTH, Urine total fbsmxzs-xq-wneumtnsis ratio before he comes back in 6 [...] concerns. Truly yours, Jewel Ulloa MD FACP ON LICENSE OF [facility] documented in this enco unter Plan [...] [place] | | | | | | [id number] | | | | | | | [...] (BMI) of 50.0 to 59.9 in adult ([facility]) | + + | Essential hypertension with goal blood pressure less than 130/80 | + + | Bilateral leg edema Edema | + + | Hyperuricemia Other abnormal blood chemistry | + + documented in this encounter
--- OUTSIDE RECORDS SUMMARY | ~2019-12-19 | XMS | Encounter Summary ---
Demographics + + + | Address | [address] | | | [place] [address] | + + + | Home Phone [...] [place] | | | | | [address] | | + + + + + Care Team Providers + +------+ + | Care Automotive Design Layout Drafter Name | Role | Phone | [...] 04/15/ | Telephone | [facility] | [place], | Telephone follow-up | | 2019 | | [facility] [address] | [address] | | | | | N[place] G[place]alva Mailcode: | Jeffery De La Torre Rosario | | | | | [facility] | [place], [place] | | | | | Health and Healing, | [address] | | | | | [address] | [phone] | | | | | [place], [place] | | | | | | [address] | | | | | | [phone] | | | +--------+ + + + [...] Rd | | | | | | [place], [place] | | | | | | [address] | | | | | | [phone] | | | | | | | | +--------+---------+ + + + documented as of this encounter Visit Diagnoses Not on filedocumented in this encounter"
--- OUTSIDE RECORDS SUMMARY | ~2019-12-19 | XMS | Encounter Summary ---
Demographics + + + | Address | [address] [address] | | | [place] [address] | + + + | Home Phone [...] Team Providers + +------+ + | Care Cardiac Rehab Nurse Name | Role | Phone | + +------+ + | Sarah Carroll MD | PCP | | + +------+ + Encounter Details +--------+ + + + + | Date | Type | Department | Care Team | Description | +--------+ + + + + | 12/18/ | Orders Only | [facility] | Conversion | | | 2019 | | NEPHROLOGY [place] | Transaction, | | | | | [address] | Provider Unknown | | | | | [address] [place], [place] | [phone] | | | | | [phone] | (Fax) | | | | | [phone] | | | +--------+ + + + [...] | | | | | [place], [place] | | | | | | [address] | | | | | | | [...]
--- OUTSIDE RECORDS SUMMARY | ~2019-12-19 | XMS | Encounter Summary ---
Demographics + + + | Address | [address] | | | [place] [address] | + + + | Home Phone [...] [place] | | | | | [address] | | + + + + + Care Team Providers + +------+ + | Care Planer Operator / Grader Name | Role | Phone | + +------+ + PCP | Unavailable | + +------+ + Encounter Details +--------+ + + + + | Date | Type | Department | Care Team | Description | +--------+ + + + + | 01/14/ | Abstract | [facility] | Clinic, Surgery | | | 2019 | | [facility] [address] | | | | | | Doug G[address] | | | | | | Mailcode: [place] | | | | | | for Health and | | | | | | Healing, [address] | | | | | | [facility] [place] | | | | | | [address] | | | | | | [phone] | | | +--------+ + + + [...] | | 2019 | Visit | | [address] | | | | | | [address] | | | | | | [place], [place] | | | | | | [address] | | | | | | [phone] | | | | | | | | +--------+---------+ + + + documented as of this encounter Visit Diagnoses Not on filedocumented in this encounter"
--- OUTSIDE RECORDS SUMMARY | ~2019-12-19 | XMS | Encounter Summary ---
Demographics + + + | Address | [address] [address] | | | [place] [address] | + + + | Home Phone [...] Team Providers + +------+ + | Care Hairpiece Stylist Name | Role | Phone | + +------+ + PCP | Unavailable | + +------+ + Encounter Details +--------+ + + + + | Date | Type | Department | Care Team | Description | +--------+ + + + + | 06/05/ | Hospital | [facility] | Conversion | Diagnosis unknown | | 2016 | Encounter | CONVERSION [address] | Transaction, | | | | | [address] | Provider Unknown | | | | | [place] | | | | | | [address] | | | | | | [phone] | | | +--------+ + + + [...] | | | | | [place] | | | | | | [address] | | | | | | | [...]
--- OUTSIDE RECORDS SUMMARY | ~2019-12-19 | XMS | Encounter Summary ---
Demographics + + + | Address | [address] [address] | | | [place] [address] | + + + | Home Phone [...] Providers + +------+ + | Care Director Day Care Center Name | Role | Phone | + +------+ + | Sarah Carroll MD | PCP | | + +------+ + Encounter Details +--------+ + + + + | Date | Type | Department | Care Team | Description | +--------+ + + + + | 07/28/ | Orders Only | [facility] | Jewel Ulloa MD | | | 2018 | | NEPHROLOGY [place] | [address] [place] | | | | | [address] [place] | [address] [place], [place] | | | | | [address] [place], [place] | [address] | | | | | [address] | | | | | | [phone] | | | +--------+ + + + [...] | | | | | [place] | | | | | | [address] | | | | | | | [...]
--- OUTSIDE RECORDS SUMMARY | ~2019-12-19 | XMS | Encounter Summary ---
Demographics + + + | Address | [address] [address] | | | [place] [address] | + + + | Home Phone [...] + + | Author | [facility] | | | and [place] | + + + | Organization | [facility] | | | and [...] Team Providers + +------+ + | Care Logging Equipment Mechanic Name | Role | Phone | + +------+ + | Sarah Carroll MD | PCP | | + +------+ + Encounter Details +--------+ + + + + | Date | Type | Department | Care Team | Description | +--------+ + + + + | 10/16/ | Orders Only | [facility] | Conversion | | | 2019 | | NEPHROLOGY [place] | Transaction, | | | | | [address] | Provider Unknown | | | | | [address] [place], [place] | [phone] | | | | | [address] | (Fax) | | | | | [phone] | | | +--------+ + + + [...] [place] | | | | | | [address] | | | | | | | [...]
--- OUTSIDE RECORDS SUMMARY | ~2019-12-19 | XMS | Encounter Summary ---
Demographics + + + | Address | [address] | | | [place] [address] | + + + | Home Phone [...] [address] | | | | | [address] | | + + + + + Care Team Providers + +------+ + | Care Food Service Worker Hospital Name | Role | Phone | + [...] | | | | | | | [place] | | | | | | | COLONOSCOPY, | | | | | | | FLEX, | | | | | | | W/BIOPSY [place] | | | | | | | | | | | | | | COLONOSCOPY, | | | | | | | YUNI URIBE BY | | | | | | | SNARE | | | | | | | TECHNIQUE | | | | | | | [place] | | | | | | | [...] | | | | | | | [place] ANES LWR | | | | | | | INTST NDSC | | | | | | | NOS | | | +--------+--------+ + + + + Encounter Details +--------+ + + + + | Date | Type | Department | Care Team | Description | +--------+ + + + + | 07/01/ | Anesthesia | [facility] | Adolfo Ace, | | | 2018 | Event | [facility] [address] | [address] | | | | | [place] Mailcode: | [address] | | | | | [facility] | [place], [place] | | | | | Health and Healing, | [address] | | | | | [address] | [phone] | | | | | [place], [place] | | | | | | [address] | Radha Link CRNA | | | | | [phone] | [address] | | | | | | [address] | | | | | | [place], [place] | | | | | | [address] | | | | | | [phone] | | | | | | | [...] Rd | | | | | | [place], [place] | | | | | | [address] | | | | | | [phone] | | | | | | | [...]
--- OUTSIDE RECORDS SUMMARY | ~2019-12-19 | XMS | Encounter Summary ---
Demographics + + + | Address | [address] [address] | | | [place] [address] | + + + | Home Phone [...] Providers + +------+ + | Care Insurance Underwriter Sales Name | Role | Phone | + +------+ + | Sarah Carroll MD | PCP | | + +------+ + Encounter Details +--------+ + + + + | Date | Type | Department | Care Team | Description | +--------+ + + + + | 10/16/ | Orders Only | [facility] | Conversion | | | 2019 | | NEPHROLOGY [place] | Transaction, | | | | | [address] | Provider Unknown | | | | | [address] [place], [place] | [phone] | | | | | [address] | (Fax) | | | | | [phone] | | | +--------+ + + + [...] [place] | | | | | | [address] | | | | | | | [...]
--- OUTSIDE RECORDS SUMMARY | ~2019-12-19 | XMS | Encounter Summary ---
Demographics + + + | Address | [address] [address] | | | [place] [address] | + + + | Home Phone [...] Team Providers + +------+ + | Care Telehealth Nurse Name | Role | Phone | + +------+ + | Sarah Carroll MD | PCP | | + +------+ + Encounter Details +--------+ + + + + | Date | Type | Department | Care Team | Description | +--------+ + + + + | 12/18/ | Orders Only | [facility] | Jewel Ulloa MD | | | 2019 | | NEPHROLOGY [place] | [address] [place] | | | | | [address] [place] | [address] [place], [place] | | | | | [address] [place], [place] | [address] | | | | | [address] | | | | | | [phone] | | | +--------+ + + + [...] [place] | | | | | | [address] | | | | | | | [...] | | | LAB | | | [facility] | | | | | + + [...]
--- OUTSIDE RECORDS SUMMARY | 2019-12-19 08:00 | XMS ---
PreManage Notification: LILY VALENTIN Security Inspector Final Assembly Conveyor Line Events No recent Security Events currently on file CRITERIA MET - [facility] - Has Care Guidelines CARE PROVIDERS KENDALL GUTIERREZ Internal Medicine 08/25/2018-Current PHONE: [phone] Shauna has no Care Guidelines for this patient. Care History Medical/Surgical 07/13/2019 [facility] Patient had canceled 07/16/[address] Gutierrez.\T\nbsp; Patient is waiting to hear reschedule date post [facility] visit. 08/25/2018 [facility] - Patient is currently established with [facility]. If patient is seen in the ED during business hours. Please contact CHWs at [facility]. Care Recommendation: This patient has had 5 [...] care E.D. VISIT COUNT (12 MO.) [address] [facility] [facility] TOTAL 3 NOTE: Visits indicate total known visits. ED/UCC VISIT TRACKING (12 MO.) 12/19/2019 07:58 [facility] [place] TYPE: Emergency COMPLAINT: - FOOT PAIN INJ 10/30/2019 10:31 [facility] [place] TYPE: Emergency COMPLAINT: - WOUND CHECK, POST OP PROBLEM DIAGNOSES: - Postprocedural hemorrhage of skin and subcutaneous tissue fol - Postprocedural hemorrhage of skin and subcutaneous tissue fol 07/10/2019 03:44 [facility] TYPE: Emergency COMPLAINT: - BLOOD IN STOOL DIAGNOSES: - Obesity, unspecified - Gastrointestinal hemorrhage, unspecified - Anemia, unspecified - Hypertensive heart disease with heart failure - Sleep apnea, unspecified - Heart failure, unspecified - Personal history of nicotine dependence - shelter (current) use of systemic steroids - Other oil heaterman (current) drug therapy - Hypothyroidism, unspecified - oil heaterman (current) use of anticoagulants INPATIENT VISIT TRACKING (12 MO.) 07/10/2019 11:05 [facility] TYPE: Internal Medicine DIAGNOSES: 87351. rectal bleed, post colonoscopy, polyp removal, 9 days ago [address]6089. Gastrointestinal hemorrhage, unspecified [email or web address]
[2019-12-19] MEDS ORDERED: FISH OIL 1,0001 EAC3 PO (08:21)
--- NOTE | 2019-12-20 11:35 | EKG ---
[facility] [address] [facility] [place] [address] Signed Sinus rhythm with 1st degree AV block Left axis deviation Right bundle branch block Inferior infarct , age undetermined Anterolateral infarct , age undetermined Abnormal ECG When compared with ECG of 20-FEB-2018 08:25, Significant changes have occurred Confirmed by JOVI THURMAN MD ([id number]) on 12/20/2019 11:35:29 AM Electronically Signed By: JOVI THURMAN MD 12/20/19 1135 PATIENT NAME: LILY VALENTIN Electrocardiogram DATE OF : 62 PHYSICIAN: JOVI THURMAN MD REPORT #: [id number] REPORT IS CONFIDENTIAL AND NOT TO BE RELEASED WITHOUT AUTHORIZATION
== END 2019-12-19 13:10 | disposition home or self-care (01) ==
LOC: ED 07:56
DX: R55 Syncope and collapse (principal); S62.646A Nondisplaced fracture of proximal phalanx of right little finger, initial encounter for closed fracture; I11.0 Hypertensive heart disease with heart failure; I50.9 Heart failure, unspecified; D64.9 Anemia, unspecified; E03.9 Hypothyroidism, unspecified; W18.30XA Fall on same level, unspecified, initial encounter; Z79.899 Other long term (current) drug therapy
CPT/HCPCS: 70450; 73610; 73630; 80053; 81001; 84484; 85025; 85610; 93005; 93010; 99284-25

== ENCOUNTER 2019-12-21 20:24 | Emergency (ER) | payer OTHER ==
[~2019-12-21] VITALS: Ht 180.3 cm; Wt 167.1 kg
--- OUTSIDE RECORDS SUMMARY | ~2019-12-21 | XMS | Encounter Summary ---
Demographics + + + | Address | [address] [address] | | | [place] [address] | + + + | Home Phone | | + + + | Preferred Language | Unknown | + + + | Marital Status | Single | + + + | Quaker Affiliation | 1077 | + + + | Race | Unknown | + + + | Ethnic Group | Unknown | + + + Author + + + | Author | [facility] | | | and [place] | + + + | Organization | [facility] | | | and [...] Team Providers + +------+ + | [facility] [employer] Custodian Name | Role | Phone | + +------+ + | Sarah Carroll MD | PCP | | + +------+ + Reason for Referral Evaluate & Treat (Routine) +--------+ + + + + + | Status | Reason | Specialty | Diagnoses / | Referred By | Referred To | | | | | Procedures | Contact | Contact | +--------+ + + + + + | Closed | Specialty | Home Health | Diagnoses | Mehul Kinsey | | | | Services | Services | Surgery | MD Chuck | | | | Required | | follow-up | [address] | | | | [address] | | | | | | | [place] | | | | | | | | | | | | | | Phone: | | | | | | | [phone] | | | | | | | Fax: | | | | | | | [phone] | | +--------+ + + + + + Reason for Visit Auth/Cert +--------+--------+ + [...] | | colon (HCC) | | [place] | | | | | Malignant | | Phone: | | | | | neoplasm of | | [phone] | | | | | sigmoid | | Fax: | | | | | colon (HCC) | | [phone] | | | | | [C18.7] | | | | | | | Procedures | | | | | | | AL PART | | | | | | | REMOVAL | | | | | | | COLON W | | | | | | | COLOPROCTOST | | | | | | | ZHOU | | | +--------+--------+ + + + + Encounter Details +--------+ + + + + | Date | Type | Department | Care Team | Description | +--------+ + + + + | 08/16/ | Hospital | [facility] | Mehul Kinsey, | Surgery follow-up | | 2018 - | Encounter | [facility] | [address] | (Primary Dx) | | | | SURGICAL [address] | [place] | | | 08/23/ | | [place] | [phone] | | | 2018 | | [address] | | | | | | [phone] | | | +--------+ + + + + Social History + +-------+ [...] Electronically signed by: Oumou Kinsey, 08/22/2017 6:48 [facility] documented in this encounter Discharge Instructions Instructions Gretel Peña RN - 08/23/2017 [facility] Patient Belongings Aaron Latham 1960 Valuables Dentures: None Vision - Corrective Lenses: None Hearing Aid: None Jewelry: None Clothing: Pants, Shirt, Footwear ( Duffel/CPAP/CANE/Hospital provided bag with clothing sen t to PACU pt. storage bins) Other Valuables: CPAP/BiPAP, Secured on Unit Other Valuables: None Home Medications: None Patient Signature: Clinician/Deputy Chief Executive Signature: Incision Care: Abdomen Dressing your incision [...] by your healthcare provider Date Last Reviewed: 07/12/201619996794-9036 [employer]. [address] [place] [address], [place] [address]. All righ ts reserved. This information is [...] You may c ough up blood. 2015 [employer] All illustrations and images included in CareNotes a re the copyrighted property of [employer] or [employer]. documented in this encounter Medications at Time [...] Known Allergies Vital Signs: Vitals: 08/22/17 1548 08/22/17200708/22/17 2359 08/23/17 0030 BP: 105/63 131/64 124/67 Pulse: 83 62 69 Resp: 17 20 Temp: 37.1 C (98.7 F) 36.7 C (98.1 F) 36.8 C (98.3 F) TempSrc: Temporal Temporal Temporal SpO2: 94% 93% Weight: (!) 156.9 kg (345 lb 14.4 oz) Height: I's&O's: Date 08/22/17 0701 - 08/23/17 0708/23/17 07 - 08/24/17 0700 Shift 3369-6532 9606-5114 24 Hour Total 0896-9761 4735-8204 24 Hour Total I N T A [...] 8.5 9.0 Radiology data: No results found. ur st Paddy LIZY Harris - 08/22/2017 4:26 PM PSTSocial Work: [facility] and [facility] do not service the area in [place] where patient lives. Called [facility] in [place]. Made referral. They will verify insurance and call back hopefully in am. Spoke with pt and his mother Toby. Transport difficulties for discharge today, but their fr iend should be at [facility] at 1000 08/23. 18 4:26 PM Sasha Blevins LICSW - 08/21/2017 4:06 PM [...] with her in her mobile home in [place], [place]. She is agreeable to home health and after review of choice s, chose [facility]. Referral made to [facility] by voicemail and fa x. Will await response from them on whether they can follow; would need to call them when pt d/c's but otherwise they can follow in [facility]. Pt will have a friend pick him [...] 8.5 9.0 Radiology data: No results found. Mehul wood MD - 08/20/2017 6:52 AM PSTFormatting of this note might be different from t harini original. Colorectal Surgery Progress Note Date of [...] 133/75 Pulse: 79 77 76 80 Resp: 15 16 16 18 Temp: 36.4 C (97.6 F) 36.6 C (97.8 F) TempSrc: Temporal Temporal SpO2: 90% 92% 91% 93% Weight: Height: I's&O's: Date 08/19/17 0701 - 08/20/17 0708/20/17 07 - 08/21/17 0700 Shift 8837-0676 1378-7577 24 Hour Total 9011-4485 1141-4718 24 Hour Total I N T A [...] (mL/kg) 850 (5.4) 2050 (13.1) 2900 (18.5) NET -256 -731 -987 Weight (kg) 156.9 156.9 156.9 156.9 [...] Radiology data: No results found. Eda Marrero V, AUTOMATION TENDER - 08/20/2017 4:20 AM PSTPt refused to wear ETCO2 machine after 0335. Stated that he is frustrated with it [...] 91% 91% Weight: Height: I's&O's: Date 08/18/17 07 - 08/19/17 0700 08/19/17 07 - 08/20/17 0700 Shift 8823-7183 0017-7406 24 Hour Total 1735-7915 5488-0673 24 Hour Total I N T A [...] 1400 (8.9) 2675 (17) 4075 (26) NET -525 -4013 -1606 Weight (kg) 156.9 156.9 156.9 156.9 156.9 [...] in water (PLASMALYTE-148/NORMOSOL-R) 75 mL/hr at 08/17/17 2137 HYDROmorphone in saline lactated ringers Stopped (08/16/17 [...] 92% 90% Weight: Height: I's&O's: Date 08/17/17 07 - 08/18/17 0708/18/17700 - 08/19/17 07 Shift 5638-8118 5025-3847 24 Hour Total 8382-7794 8554-0781 24 Hour Total I N T A [...] 8.5 9.0 Radiology data: No results found. YSeltman, Sapphire leon MD - 08/17/2017 8:45 AM [...] 92% 94% 92% Weight: Height: I's&O's: Date 08/16/171900 - 08/17/17 0708/17/17700 - 08/18/17 07 Shift 4999-9953 24 Hour Total 7427-6984 4237-9582 24 Hour Total I N T A [...] U T P U T Urine (mL/kg/hr) 213 497 2016 (0.7) 1300 Blood 150 Shift Total (mL/kg) [...] | Lorraine Clifton DO | | | 2020 | Visit | | [address] | | | | | | [place] | | | | | | [address] | | | | | | | [...] | | | | | PST | ([facility]) | | + +--------+ + + + [...] + + + + + | [facility] | [address] | [place] [address] | | | [facility] | | | | | [...] + | [facility] | [address] | [place] [address] | | | [facility] | [...] + + | Glucose | 149 (H)Comment: [place]gu[place] | 65 - 99 mg/dL | [facility] | | | | Diabetes Association | [...] + + | [facility] | [address] | [place] [address] | | | [facility] | | | | | LABORATORY | | | | + + + + + Surgical Pathology Exam (08/16/2017 12:53 PM PST) + + | Specimen | + + | | + + + + + | Narrative | Performed At | + + + | SURGICAL PATHOLOGY REPORT | [facility] | | Date Taken: 08/16/2017 Date Received: 08/16/2017 | [facility] | | Completed: 08/20/2017 Physician: Mehul KINSEY Copy to: [facility] | | DIAGNOSIS: Colon, sigmoid, segmental resection: [...] cm to 0.5 cm in greatest dimension. Diamond Powder Technician | | | sections are submitted as [...] intact; "A12" three lymph node candidates, intact. (CMT) | | | MICROSCOPIC DESCRIPTION: Histologic sections of all submitted blocks | | | are examined by light microscopy. These findings, together with the | | | gross examination, support the pathologic diagnosis. A: | | | 16411, 61480, 92825, 94873, 24303(e) | | | PROCEDURES/ADDENDA SPECIAL STAINS DIAGNOSIS: [...] developed and their performance characteristics determined by [facility]. This test is used for clinical | | | purposes. It should not be regarded as investigational or for | | | research. [facility] is certified under the Clinical | | | Laboratory Improvement Amendments of 1988 (CLIA) as qualified to | | | perform high complexity clinical laboratory testing. Comment: | | | Breast predictive markers have not been validated on decalcified | | | specimens. Bladimir Staley MD Testing performed | | | at: [facility] | | | Michelle Arredondo, Director [address] [place] [address] [place] [address] | | | [address] | | + + + + + + + + | Performing | Address | City/State/Zipcode | Phone Number | | Organization | | | | + + + + + | [facility] | [address] | [place] [address] | | | [facility] | | | | | [...] + + | Glucose | 113 (H)Comment: [place]an | 65 - 99 mg/dL | [facility] | | | | Diabetes Association | [...] (H)Comment: IDMS | 0.70 - 1.30 | [facility] | | | | traceable creatinine | [...] + + | [facility] | [address] | [place] [address] | | | [facility] | | | | | LABORATORY | [...] + | [facility] | [address] | [place] [address] | | | [facility] | [...] + | [facility] | [address] | [place] [address] | | | [facility] | | | | | LABORATORY | | | | + + + + + POC Glucose (08/16/2017 9:06 AM PST) + +---------+ + + + | Component | Value | Ref Range | Performed | Pathologist | | | | | At | Signature | + +---------+ + + + | Glucose, | 116 (H) | 65 - 99 mg/dL | [facility] | | | POC | | | [...] + + | [facility] | [address] | [place] [address] | | | [facility] | [...] + | Diagnosis | + + | Surgery follow-up - Primary Follow-up examination, following unspecified surgery | + + documented in this encounter Administered Medications + +--------+ + +------+------+ | Medication Order | MAR | Action | Dose | Rate | Site | | | Action | Date | | | | + +--------+ + +------+------+ | acetaminophen (TYLENOL) tablet | Given | 08/16/19 | 1,000 mg | | | | 1,000 mg 1,000 mg, Oral, ONCE, | | 18 10:33 | | | | | 08/16/17 at 0900, For 1 dose, | | AM PST | | | | | Pre-op | | | | | | + +--------+ + +------+------+ + +---+ | | | + +---+ | acetaminophen (TYLENOL) tablet | [...] | | | | | at 1843, Shake well., | | | | | | | Post-op/Phase II | | | | | | + +-------+ +--------+---+---+ +---+---+ | | | +---+---+ + +-------+ +-------+---+---+ | atorvaSTATin (LIPITOR) tablet | Given | 08/22/19 | 80 mg | | | | 80 mg 80 mg, Oral, NIGHTLY, | | 18 9:43 | | | | | First dose on Sat08/16/17 at 2100 | | PM PST | [...] +-------+---+---+ +---+---+ | | | +---+---+ + +---------+ +---+ +---+ | balanced electrolytes in water | New Bag | 08/21/19 | | 75 mL/hr | | | (PLASMALYTE-148/NORMOSOL-R) | | 18 12:56 | | | | | infusion at 75 mL/hr, | | AM PST | | | | | Intravenous, CONTINUOUS, Starting | | | | | | | 08/16/17 at 1900, | | | | | | | Post-op/Phase II | | | | | | + +---------+ +---+ +---+ +---------+ +---+ +---+ | New Bag | 08/20/19 | | 75 mL/hr | | | | 18 12:59 | | | | | | PM PST | | | | +---------+ +---+ +---+ | New Bag | 08/20/19 | | 75 mL/hr | | | | 18 1:06 | | | | | | AM PST | | | | +---------+ +---+ +---+ +---+---+ | | | +---+---+ + +-------+ +-------+---+---+ | bisacodyl (DULCOLAX) | Given | 08/20/19 | 10 mg | | | | suppository 10 mg 10 mg, Rectal, | | 18 8:31 | | | | | 2 TIMES DAILY, First dose on Mon | | AM PST | | | | | 08/19/17 at 0900 | | | | | | + +-------+ +-------+---+---+ +-------+ +-------+---+---+ | Given | 08/19/19 | 10 mg | | | | | 18 9:33 | | | | | | PM [...] HOURS PRN, | | | Itching, Starting Sat08/16/17 at | | | 1843, Oral route is preferred., | | | Post-op/Phase II | | + +---+ | | | + +---+ | diphenhydrAMINE (BENADRYL) | | | tablet 25 mg 25 mg, Oral, EVERY | | | 4 HOURS PRN, Itching, Starting | | | Sat08/16/17 at 1843, Oral route is | | | preferred., Post-op/Phase II | | + +---+ | | | + +---+ + +-------+ +--------+---+---+ | docusate sodium (COLACE) | Given | 08/18/19 | 100 mg | | | | capsule 100 mg 100 mg, Oral, 2 | | 18 9:06 | | | | | TIMES DAILY, First dose on Fri | | PM PST | | | | | 08/16/17 at 2100, First line agent | | | | | | | for constipation, Post-op/Phase | | | | | | | II | | | | | | + +-------+ +--------+---+---+ +-------+ +--------+---+---+ | Given | 08/18/19 | 100 mg | | | | | 18 9:28 | | | | | | AM PST | | | | +-------+ +--------+---+---+ | Given | 08/17/19 | 100 mg | | | | | 18 9:43 | | | | | | PM PST | | | | +-------+ +--------+---+---+ +---+---+ | | | +---+---+ + +-------+ +-------+---+---+ | famotidine (PEPCID) injection | Given | 08/20/19 | 20 mg | | | | 20 mg 20 mg, Intravenous, EVERY | | 18 9:23 | | | | | 12 HOURS (2 times per day), First | | PM PST | | | | | dose on 08/19/17 at 0900, | | | | | | | Prior to administration, prepare | | | | | | | a 20 mg dose by diluting 2 mL of | | | | | | | famotidine 10 mg/mL to 10 mL with | | | | | | | normal saline., | | | | | | + +-------+ +-------+---+---+ +-------+ +-------+---+---+ | Given | 08/20/19 | 20 mg | | | | | 18 8:30 | | | | | | AM PST | | | | +-------+ +-------+---+---+ | Given | 08/19/19 | 20 mg | | | | | 18 9:28 | | | | | | PM PST | | | | +-------+ +-------+---+---+ +---+---+ | | | +---+---+ + +-------+ +-------+---+---+ | famotidine (PEPCID) tablet [...] | | +---+---+ + +-------+ +--------+---+---+ | fentaNYL (PF) injection 25-50 | Given | 08/16/19 | 25 mcg | | | | mcg 25-50 mcg, Intravenous, | | 18 2:06 | | | | | EVERY 5 MIN PRN, Pain, Starting | | PM PST | | | | | 08/16/17 at 1317, Maximum total | | | | | | | dose 250 mcg. PACU IV Narcotic | | | | | | | Priority: Only use fentanyl for | | | | | | | immediate post-op pain (one dose) | | | | | | | or breakthrough pain when any | | | | | | | other IV narcotics ordered have | | | | | | | been ineffective (if ordered). | | | | | | | If both morphine and | | | | | | | hydromorphone are ordered, use | | | | | | | morphine first, and use | | | | | | | hydromorphone if morphine | | | | | | | ineffective., Recovery/Phase I | | | | | | + +-------+ +--------+---+---+ +-------+ +--------+---+---+ | Given | 08/16/19 | 25 mcg | | | | | 18 1:52 | | | | | | PM PST | | | | +-------+ +--------+---+---+ +---+---+ | | | +---+---+ + +-------+ +--------+---+---+ | gabapentin (NEURONTIN) capsule | Given | 08/16/19 | 300 mg | | | | 300 mg 300 mg, Oral, ONCE, Sat | | 18 10:53 | | | | | 08/16/17 at 0900, For 1 dose, | | AM PST | | | | | Pre-op | | | | | | + +-------+ +--------+---+---+ +---+---+ | | | +---+---+ + +-------+ +--------+---+ + | heparin 5,000 units/mL | Given | 08/16/19 | 5,000 | | Leg-Righ | | injection 5,000 Units 5,000 | | 18 10:55 | Units | | t Upper | | Units, Subcutaneous, RAG SORTER, | | AM PST | | | | | Starting Sat08/16/17 at 0831, For | | | | | | | 1 dose, Check with anesthesia | | | | | | | prior to administration of | | | | | | | heparin., Pre-op | | | | | | + +-------+ +--------+---+ + +---+---+ | | | [...] | | | HOURS PRN, Pain, Starting Sat | | | | | | | [...] +---+---+ +---+---+ | | | +---+---+ + +---------+ +-------+---+---+ | HYDROmorphone in saline | New Bag | 08/20/19 | 30 mg | | | | (DILAUDID) 1 mg/mL PAN PULLER | | 18 8:26 | | | | | Intravenous, CONTINUOUS, Starting | | AM PST | | | | | 08/16/17 at 1530, for adult | | | | | | | patients 65 years and older OR | | | | | | | risk of sleep apnea, Loading | | | | | | | Dose(mg): 0, Starting PAN PULLER | | | | | | | Dose(mg): 0.1, Incremental | | | | | | | Increase PAN PULLER Dose(mg): 0.1, | | | | | | | Maximum PAN PULLER Dose(mg): 0.2, | | | | | | | Lockout Interval(min): 10, One | | | | | | | Hour Limit(mg): 1.5 | | | | | | + +---------+ +-------+---+---+ + + +-------+---+---+ | Rate/Dose Change | 08/17/19 | 30 mg | | | | | 18 1:39 | | | | | | AM PST | | | | + + +-------+---+---+ | New Bag | 08/16/19 | 30 mg | | | | | 18 3:54 | | | | | | PM PST | | | | + + +-------+---+---+ +---+---+ | | | +---+---+ + [...] +-------+---+---+ +---+---+ | | | +---+---+ + +---------+ +---------+-------+---+ | lactated ringers (LR) bolus 250 | New Bag | 08/18/19 | 250 mLs | 125 | | | mL 250 mL, Intravenous, | | 18 11:59 | | mL/hr | | | Administer over 2 Hours, ONCE, | | AM PST | | | | | 08/18/17 at 1215, For 1 dose | | | | | | + +---------+ +---------+-------+---+ +---+---+ | | | +---+---+ + +-------+ [...] +---+ + +-------+ +-------+---+---+ | metoclopramide (REGLAN) 5 mg/mL | Given | 08/21/19 | 10 mg | | | | injection 10 mg 10 mg, | | 18 6:31 | | | | | Intravenous, EVERY 6 HOURS (4 | | AM PST | | | | | times per day), First dose on Sat | | | | | | | 08/19/17 at 0745, Protect from | | | | | | | light., | | | | | | + +-------+ +-------+---+---+ +-------+ +-------+---+---+ | Given | 08/21/19 | 10 mg | | | | | 18 12:54 | | | | | | AM PST | | | | +-------+ +-------+---+---+ | Given | 08/20/19 | 10 mg | | | | | 18 5:36 | | | | | | PM PST | | | | +-------+ +-------+---+---+ +---+---+ | | | +---+---+ + +-------+ +-------+---+---+ | metoclopramide (REGLAN) tablet [...] policy and contact | | | 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
--- OUTSIDE RECORDS SUMMARY | ~2019-12-21 | XMS | Encounter Summary ---
Demographics + + + | Address | [address] [address] | | | [place] [address] | + + + | Home Phone | | + + + | Preferred Language | Unknown | + + + | Marital Status | Single | + + + | Restorationist Affiliation | 1077 | + + + | Race | Unknown | + + + | Ethnic Group | Unknown | + + + Author + + + | Author | [facility] | | | and [place] | + + + | Organization | [facility] | | | [...] Team Providers + +------+ + | Care Registered Veterinary Technician Name | Role | Phone | [...] | | | neoplasm of | | [phone] | | | | | sigmoid | | Fax: | | | | | colon (HCC) | | [phone] | | | | | [C18.7] | | | | | | | Procedures | | | | | | | [place] PART | | | | | | [...] | | | | SHEA Ramos | [phone] | | | | | [address] | | | | | | [phone] | | | +--------+---------+ + + + [...] Electronically signed by: Oumou Kinsey, 08/22/2017 6:48 [facility] documented in this encounter Discharge Instructions Instructions Gretel Peña RN - 08/23/2017 [facility] Patient Belongings Aaron Latham 1960 Valuables Dentures: None Vision - Corrective Lenses: None Hearing Aid: None Jewelry: None Clothing: Pants, Shirt, Footwear ( Duffel/CPAP/CANE/Hospital provided bag with clothing sen t to PACU pt. storage bins) Other Valuables: CPAP/BiPAP, Secured on Unit Other Valuables: None Home Medications: None Patient Signature: Clinician/Cylinder Grinder Signature: Incision Care: Abdomen Dressing your incision [...] by your healthcare provider Date Last Reviewed: 07/12/201619999190-2873 [employer]. [address] [place] [address]. All righ ts reserved. This information is [...] You may c ough up blood. 2015 [employer] All illustrations and images included in CareNotes a re the copyrighted property of [employer] or [employer]. documented in this encounter Medications at Time [...] 0700 08/23/17 07 - 08/24/17 0700 Shift 9199-6665 6018-5137 24 Hour Total 4060-2931 5041-6528 24 Hour Total I N T A [...] Arango - 08/22/2017 4:26 PM PSTSocial Work: [facility] and they [facility] not service the area in [place] where patient lives. Called [facility] in [place]. Made referral. They will verify insurance and call back hopefully in am. Spoke with pt and his mother Toby. Transport difficulties for discharge today, but their fr iend should be at [facility] at 1000 08/23. Sasha Blevins LICSW [...] with her in her mobile home in [place], [place]. She is agreeable to home health and after review of choice s, chose [facility]. Referral made to [facility] by voicemail and fa x. Will await response from them on whether they can follow; would need to call them when pt d/c's but otherwise they can follow in [facility]. Pt will have a friend [...] 8.5 9.0 Radiology data: No results found. [facility] MD - 08/20/2017 6:52 AM PSTFormatting [...] 08/20/17 0708/20/17 07 - 08/21/17 0700 Shift 9187-5955 5741-0330 24 Hour Total 1900-0700 24 Hour Total [...] (mL/kg) 850 (5.4) 2050 (13.1) 2900 (18.5) [facility] -256 -730 -987 Weight (kg) 156.9 156.9 156.9 156.9 [...] 08/19/17 0708/19/17 07 - 08/20/17 0700 Shift 3336-1052 9494-4371 24 Hour Total 8551-5287 2273-2729 24 Hour Total I N T A [...] 0700 08/18/17 0701 - 08/19/17 0700 Shift 1060-5642 3693-2396 24 Hour Total 0343-1817 3846-5407 24 Hour Total I N T A [...] 9.0 Radiology data: No results found. eltman, Sapphier leon MD - 08/17/2017 8:45 AM PSTFormatting [...] 0700 08/17/17 07 - 08/18/17 0700 Shift 9073-1293 24 Hour Total 3608-0377 0845-5442 24 Hour Total I N T A [...] U T P U T Urine (mL/kg/hr) 347 004 8774 (0.7) 1300 Blood 150 Shift Total [...] | | | | | | [facility] | | | | | | [id number] | | | | | | | [...] + | [facility] | [address] | [place] [address] | | | [facility] | | | | | LABORATORY | [...] + + | [facility] | [address] | [place] [address] | | | [facility] | [...] + + | Glucose | 149 (H)Comment: [place] Islander | 65 - 99 mg/dL | [facility] [...] + + | [facility] | [address] | [place] [address] | | | [facility] | | | | | LABORATORY | [...] Completed: 08/20/2017 Physician: Mehul KINSEY Copy to: [facility] | | DIAGNOSIS: Colon, sigmoid, [...] cm to 0.5 cm in greatest dimension. Microwave Technician | | | sections are submitted [...] intact; "A12" three lymph node candidates, intact. ([facility]) | | | MICROSCOPIC DESCRIPTION: Histologic sections of all submitted blocks | | | are examined by light microscopy. These findings, together with the | | | gross examination, support the pathologic diagnosis. A: | | | 79876, 54346, 01579, 79062, 50041(e) | | | PROCEDURES/ADDENDA SPECIAL STAINS DIAGNOSIS: [...] developed and their performance characteristics determined by [facility] | | [facility]. This test is used for clinical | | | purposes. It should not be regarded as investigational or for | | | research. [facility] is certified under the Clinical | | | Laboratory Improvement Amendments of 1988 (CLIA) as qualified to | | | perform high complexity clinical laboratory testing. Comment: | | | Breast predictive markers have not been validated on decalcified | | | specimens. Bladimir Staley MD Testing performed | | | at: [facility] | | | Michelle Arredondo, Director [address] [place] [address] [address] [place], [place] | | | [address] | | + + + + + + + + | Performing | Address | City/State/Zipcode | Phone Number | | Organization | | | | + + + + + | [facility] | [address] | [place] [address] | | | [facility] | | | | | LABORATORY | [...] + + | Glucose | 113 (H)Comment: [place] | 65 - 99 mg/dL | [facility] [...] + + | [facility] | [address] | [place] [address] | | | [facility] | | | | | [...] + + | [facility] | [address] | [place] [address] | | | [facility] | | | | | [...] + | [facility] | [address] | [place] [address] | | | [facility] | | | | | LABORATORY | [...] [address] | [place] [address] | | | [facility] | | | | | [...] policy and contact | | | provider completions manager, | | + +---+ | | | [...]
--- OUTSIDE RECORDS SUMMARY | ~2019-12-21 | XMS | Encounter Summary ---
Demographics + + + | Address | [address] | | | [place] [address] | + + + | Home Phone | | + + + | Preferred Language | Unknown | + + + | Marital Status | Single | + + + | Zoroastrianism Affiliation | LDS | + + + | Race | White | + + + | Ethnic Group | Not or | + + + Author + + + | Author | [facility] | + + + | Organization | [facility] | + + + | Address | Unknown | + + + | Phone | Unavailable | + + + Support + + + + + | Name | Relationship | Address | Phone | + + + + + | Toby Latham | ANNA | [address] | | | | | [place] | | | | | [address] | | + + + + + Care Team Providers + +------+ + | Care Operations Planner Name | Role | Phone | + +------+ + | No Pcp Per Patient | PCP | Unavailable | + +------+ + Reason for Referral PROC - Dept/Practice Procedure (Routine) +--------+--------+ + + + + | Status | Reason | Specialty | Diagnoses / | Referred By | Referred To | | | | | Procedures | Contact | Contact | +--------+--------+ + + + + | Closed | | Gastroenterol | Diagnoses | de Reddy, | Gas Endo | | | | ogy | Adenomatous | Naveen [address] | [address] | | | | | polyp of | MD Matt | [address] | | | | | ascending | [address] | [place] | | | | | colon | [address] | [address] | | | | | Procedures | Rd | floor | | | | | CONSULT TO | [place], [place] | [place], [place] | | | | | GI PROCEDURE | [address] | [address] | | | | | UNIT: | Phone: | Phone: | | | | | COLONOSCOPY | [phone] | [phone] | | | | | [facility] | Fax: | Fax: | | | | | INTST NDSC | [phone] | [phone] | | | | | NOS UT | | | | | | | COLONOSCOPY, | | | | | | | FLEX, | | | | | | | W/BIOPSY UT | | | | | | | | | | | | | | COLONOSCOPY, | | | | | | | REMV LESN BY | | | | | | | SNARE | | | | | | | TECHNIQUE | | | | | | | UT | | | | | | | COLONOSCOPY, | | | | | | | FLEXIBLE; W | | | | | | | ABLATION OF | | | | | | | TUMOR(S), | | | | | | | POLYP(S), OR | | | | | | | OTHER | | | | | | | LESION(S) | | | +--------+--------+ + + + + Encounter Details +--------+ + + + + | Date | Type | Department | Care Team | Description | +--------+ + + + + | 02/09/ | Automotive Professional | Digestive Health | Naveen Luke W | Adenomatous polyp of | | 2019 | | Center at [facility] 4th | MD Matt [address] | ascending colon | | | | Floor [address] | (Primary Dx) | | | | [address] | [place], [place] | | | | | Mailcode: CH6D | [address] | | | | | [place] [facility] | [phone] | | | | | [place], [place] | | | | | | [address] | | | | | | [phone] | | | +--------+ + + + [...] Rd | | | | | | [place], [place] | | | | | | [address] | | | | | | [phone] | | | | | | | | +--------+---------+ + + + documented as of this encounter Visit Diagnoses + + | Diagnosis | + + | Adenomatous polyp of ascending colon - Primary | + + documented in this encounter"
--- OUTSIDE RECORDS SUMMARY | ~2019-12-21 | XMS | Encounter Summary ---
Demographics + + + | Address | [address] [address] | | | [place] [address] | + + + | Home Phone | | + + + | Preferred Language | Unknown | + + + | Marital Status | Single | + + + | Tenriism Affiliation | 1077 | + + + | Race | Unknown | + + + | Ethnic Group | Unknown | + + + Author + + + | Author | [facility] | | | and [place] | + + + | Organization | [facility] | | | [...] Team Providers + +------+ + | Care Evaluation Advisor Name | Role | Phone | + +------+ + | Sarah Carroll MD | PCP | | + +------+ + Encounter Details +--------+ + + + + | Date | Type | Department | Care Team | Description | +--------+ + + + + | 12/18/ | Orders Only | [facility] | Jewel Ulloa MD | | | 2019 | | NEPHROLOGY [place] | [address] [place] | | | | | [address] [place] | [address] [place], [place] | | | | | [address] [place], [place] | [address] | | | | | [address] | | | | | | [phone] | | | +--------+ + + + [...] [place] | | | | | | [address] | | | | | | | | +--------+---------+ + + + documented as of this encounter Procedures + +--------+ + + + | Procedure Name | Priori | Date/Time | Associated Diagnosis | Comments | | | ty | | | | + +--------+ + + + | EXTERNAL LAB: CBC | Routin | 12/18/2018 | | Results [...] + + + + + + | Red Blood | 3.82 (A) | 4.3 - 5.7 10 | EXTERNAL | | | Cells | | | LAB | | | Counted | | | | | + + + + + + | Hemoglobin | 12.9 (A) | 13.5 - 18.0 [...] | | | LAB | | | EGYPTIAN | | | | | + + [...]
--- OUTSIDE RECORDS SUMMARY | ~2019-12-21 | XMS | Encounter Summary ---
Demographics + + + | Address | [address] | | | [place] [address] | + + + | Home Phone | | + + + | Preferred Language | Unknown | + + + | Marital Status | Single | + + + | Buddhism Affiliation | LDS | + + + | Race | White | + + + | Ethnic Group | Not or | + + + Author + + + | Organization | Unknown | + + + | Address | Unknown | + + + | Phone | Unavailable | + + + Support + + + + + | Name | Relationship | Address | Phone | + + + + + | Toby Latham | ECON | [address] | | | | | [place] | | | | | [address] | | + + + + + Care Team Providers + +------+ + | Care Jewel Corner Brushing Machine Operator Name | Role | Phone | + +------+ + | Sarah Carroll MD | PCP | | + +------+ + Encounter Details +--------+--------+ + + + | Date | Type | Department | Care Team | Description | +--------+--------+ + + + | 04/13/ | Travel | | | | | 2019 | | | | | +--------+--------+ + + + Social History + +-------+ [...] Rd | | | | | | [place], [place] | | | | | | [address] | | | | | | [phone] | | | | | | | | +--------+---------+ + + + documented as of this encounter Visit Diagnoses Not on filedocumented in this encounter"
--- OUTSIDE RECORDS SUMMARY | ~2019-12-21 | XMS | Encounter Summary ---
Demographics + + + | Address | [address] [address] | | | [place] [address] | + + + | Home Phone | | + + + | Preferred Language | Unknown | + + + | Marital Status | Single | + + + | Denominational Affiliation | 1077 | + + + | Race | Unknown | + + + | Ethnic Group | Unknown | + + + Author + + + | Author | [facility] | | | and [place] | + + + | Organization | [facility] | | | [...] Team Providers + +------+ + | Care Sports Analyst Name | Role | Phone | + +------+ + PCP | Unavailable | + +------+ + Encounter Details +--------+ + + + + | Date | Type | Department | Care Team | Description | +--------+ + + + + | 06/05/ | Hospital | [facility] | Conversion | Diagnosis unknown | | 2016 | Encounter | CONVERSION [address] | Transaction, | | | | | [address] | Provider Unknown | | | | | [place] | | | | | | [address] | | | | | | [phone] | | | +--------+ + + + + Social History + +-------+ +--------+------+ | Tobacco Use | Types | Packs/Day | Years | Date | | | | | Used | | + +-------+ +--------+------+ | Never Assessed | | | | | + +-------+ +--------+------+ + + + | Sex Assigned at [...] | | | | | | [place] | | | | | | [address] | | | | | | | | +--------+---------+ + + + documented as of this encounter Procedures + +--------+ + + + | Procedure Name | Priori | Date/Time | Associated Diagnosis | Comments | | | ty | | | | + +--------+ + + + | CT ABDOMEN PELVIS W | Routin | 05/22/2017 | | Results for this | | CONTRAST | e | 9:51 AM | | procedure are in the | | | | PDT | | results section. | + +--------+ + + + documented in this encounter Results CT Abdomen Pelvis w Contrast (05/22/2017 9:51 AM PDT) + + | Specimen | + + | | + + + + + | Narrative | Performed At | + + + | This is a non-reportable procedure without a radiologist report and | | | is used for image storage only | | + + + + + | Procedure Note | + + | Jake Long - 03/26/2019 5:01 AM PDT This is a non-reportable procedure | | without a radiologist report and isused for image storage only | + + documented in this encounter Visit Diagnoses + + | Diagnosis | + + | Diagnosis unknown Other unknown and unspecified cause of morbidity or mortality | + + documented in this encounter"
--- OUTSIDE RECORDS SUMMARY | ~2019-12-21 | XMS | Encounter Summary ---
Demographics + + + | Address | [address] [address] | | | [place] [address] | + + + | Home Phone | | + + + | Preferred Language | Unknown | + + + | Marital Status | Single | + + + | Synagogue Affiliation | 1077 | + + + | Race | Unknown | + + + | Ethnic Group | Unknown | + + + Author + + + | Author | [facility] | | | and [place] | + + + | Organization | [facility] | | | [...] Team Providers + +------+ + | Care Nanny Caregiver Name | Role | Phone | + +------+ + | Sarah Carroll MD | PCP | | + +------+ + Encounter Details +--------+ + + + + | Date | Type | Department | Care Team | Description | +--------+ + + + + | 07/11/ | Orders Only | [facility] | Conversion | | | 2018 | | NEPRHOLOGY [place] | Transaction, | | | | | [address] | Provider Unknown | | | | | [address] [place], [place] | [phone] | | | | | [address] | | | | | | [phone] | | | +--------+ + + + [...] | | | | | | [facility] | | | | | | [address] | | | | | | | | +--------+---------+ + + + documented as of this encounter Procedures + +--------+ + + + | Procedure Name | Priori | Date/Time | Associated Diagnosis | Comments | | | ty | | | | + +--------+ + + + | CBC WITH MANUAL | Routin | 07/11/2018 | | Results for this | | DIFFERENTIAL | e | 1:15 PM | | procedure are in the | | | | PST | | results section. | + +--------+ + + + | IRON AND IRON | Routin | 07/11/2018 | | Results for this | | BINDING CAPACITY | e | 1:15 PM | | procedure are in the | | | | PST | | results section. | + +--------+ + + + | VITAMIN B-12 | Routin | 07/11/2018 | | Results for this | | | e | 1:15 PM | | procedure are in the | | | | PST | | results section. | + +--------+ + + + | RETIC COUNT | Routin | 07/11/2018 | | Results for this | | | e | 1:15 PM | | procedure are in the | | | | PST | | results section. | + +--------+ + + + | FERRITIN | Routin | 07/11/2018 | | Results for this | | | e | 1:15 PM | | procedure are in the | | | | PST | | results section. | + +--------+ + + + | COMPREHENSIVE | Routin | 07/11/2018 | | Results for this | | METABOLIC PANEL | e | 1:15 PM | | procedure are in the | | | | PST | | results section. | + +--------+ + + + documented in this encounter Results Iron and Iron Binding Capacity (07/11/2018 1:15 PM PST) + +-------+ + + + | Component | Value | Ref Range | Performed | Pathologist | | | | | At | Signature | + +-------+ + + + | Iron | 63.34 | 37 - 160 | EXTERNAL | | | | | | LAB | | + +-------+ + + + | Iron | 25.9 | 20 - 55 | EXTERNAL | | | Saturation | | | LAB | | + +-------+ + + + | TIBC | 245 | 245 - 400 | EXTERNAL | [...] | | | + +---------+ + + Retic Count (07/11/2018 1:15 PM PST) + + + + + + | Component | Value | Ref Range | Performed | Pathologist | | | | | At | Signature | + + + + + + | % | 3.11 (A) | 0.8 - 2.1 | EXTERNAL | | | Reticulocyt | | | LAB | | | e Count | | | | | + + + + + + | Absolute | 98.0 (A) | 40 - 79 | EXTERNAL | | | Reticulocyt | | | LAB | | | e Count | | | | | + + + + + + + + | Specimen | + + | Blood specimen | | (specimen) | + + + +---------+ + + | Performing | Address | City/State/Zipcode | Phone Number | | Organization | | | | + +---------+ + + | EXTERNAL LAB | | | | + +---------+ + + CBC with Manual Differential (07/11/2018 1:15 PM PST) + + + + + + | Component | Value | Ref Range | Performed | Pathologist | | | | | At | Signature | + + + + + + | WBC | 6.5 | 4.5 - 11.0 10 | EXTERNAL | | | | | | LAB | | + + + + + + | Red Blood | 3.15 (A) | 4.3 - 5.7 10 | EXTERNAL | | | Cells | | | LAB | | | Counted | | | | | + + + + + + | Hemoglobin | 10.4 (A) | 13.5 - 18.0 | EXTERNAL | | | | | g/dL | LAB | | + + + + + + | Hematocrit, | 30.4 (A) | 41 - 50 % | EXTERNAL | | | POC | | | LAB | | + + + + + + | MCV | 96.4 | 81 - 99 fL | EXTERNAL | | | | | | LAB | | + + + + + + | MCH | 33 | 27 - 33 pg | EXTERNAL | | | | | | LAB | | + + + + + + | MCHC | 34 | 30 - 36 g/dL | EXTERNAL | | | | | | LAB | | + + + + + + | RDW-CV | | % | EXTERNAL | | | | | | LAB | | + + + + + + | Platelet | 295 | 140 - 440 K/ L | EXTERNAL | | | Count | | | LAB | | | Plasma | | | | | + + + + + + | MPV | | fL | EXTERNAL | | | | | | LAB | | + + + + + + | % Segmented | | % | EXTERNAL | | | | | | LAB | | | Neutrophils | | | | | + + + + + + | % | | % | EXTERNAL | | | Lymphocytes | | | LAB | | + + + + + + | % Monocytes | | % | EXTERNAL | | | | | | LAB | | + + + + + + | % | | % | EXTERNAL | | | Eosinophils | | | LAB | | + + + + + + | % Basophils | | % | EXTERNAL | | | | | | LAB | | + + + + + + | Absolute | | / L | EXTERNAL | | | Neutrophils | | | LAB | | + [...] | | | + +---------+ + + Ferritin (07/11/2018 1:15 PM PST) + +-------+ + + + | Component | Value | Ref Range | Performed | Pathologist | | | | | At | Signature | + +-------+ + + + | Ferritin, | 151.8 | 30 - 400 ng/mL | EXTERNAL | | | External | | | LAB | | + +-------+ + + + + + | Specimen | + + | Blood specimen | | (specimen) | + + + +---------+ + + | Performing | Address | City/State/Zipcode | Phone Number | | Organization | | | | + +---------+ + + | EXTERNAL LAB | | | | + +---------+ + + Vitamin B-12 (07/11/2018 1:15 PM PST) + +-------+ + + + | Component | Value | Ref Range | Performed | Pathologist | | | | | At | Signature | + +-------+ + + + | VITAMIN | 882.7 | 232 - 1,245 | EXTERNAL | | | B-12 | | | LAB | | + +-------+ + + + + + | Specimen | + + | Blood specimen | | (specimen) | + + + +---------+ + + | Performing | Address | City/State/Zipcode | Phone Number | | Organization | | | | + +---------+ + + | EXTERNAL LAB | | | | + +---------+ + + Comprehensive Metabolic Panel (07/11/2018 1:15 PM PST) + + + + + + | Component | Value | Ref Range | Performed | Pathologist | | | | | At | Signature | + + + + + + | Glucose, | 90 | 70 - 100 mg/dL | EXTERNAL | | | Fasting | | | LAB | | + + + + + + | BUN | 24 (A) | 6 - 23 mg/dL | EXTERNAL | | | | | | LAB | | + + + + + + | Creatinine | 1.85 (A) | 0.70 - 1.33 | EXTERNAL | | | | | mg/dL | LAB | | + + + + + + | BUN/Creatin | 13.0 | 6.0 - 28.6 | EXTERNAL | | | ine Ratio | | | LAB | | + + + + + + | Calcium | 8.5 | 8.5 - 10.3 | EXTERNAL | | | | | mg/dL | LAB | | + + + + + + | Protein, | 6.0 | 6.0 - 8.3 g/dL | EXTERNAL | | | Total | | | LAB | | + + + + + + | Albumin | 3.3 (A) | 3.5 - 5.0 | EXTERNAL | | | | | | LAB | | + + + + + + | Globulin | 2.7 | 1.8 - 3.5 | EXTERNAL | | | | | | LAB | | + + + + + + | A/G Ratio | 1.2 | 1.1 - 2.4 | EXTERNAL | | | | | | LAB | | + + + + + + | Bilirubin | 0.4 | 0.0 - 1.2 mg/dL | EXTERNAL | | | Total | | | LAB | | + + + + + + | ALP, | 76 | 31 - 120 | EXTERNAL | | | External | | | LAB | | + + + + + + | ALT | 20 | 7 - 52 U/L | EXTERNAL | | | | | | LAB | | + + + + + + | AST | 17 | 13 - 39 U/L | EXTERNAL | | | | | | LAB | | + + + + + + | Na | 137 | 132 - 143 | EXTERNAL | | | | | mmol/L | LAB | | + + + + + + | K | 5.1 | 3.6 - 5.1 | EXTERNAL | | | | | mmol/L | LAB | | + + + + + + | Cl | 104 | 95 - 112 mmol/L | EXTERNAL | | | | | | LAB | | + + + + + + | CO2 | 21 | 19 - 31 mmol/L | EXTERNAL | | | | | | LAB | | + + + + + + | Anion Gap | 17.1 | 7 - 21 mmol/L | EXTERNAL | | | | | | LAB | | + + + + + + | Estimated | 38 (A) | 60 - 140 mg/dL | [...]
--- OUTSIDE RECORDS SUMMARY | ~2019-12-21 | XMS | Encounter Summary ---
Demographics + + + | Address | [address] | | | [place] [address] | + + + | Home Phone | | + + + | Preferred Language | Unknown | + + + | Marital Status | Single | + + + | Christianity Affiliation | LDS | + + + [...] [place] | | | | | [address] | | + + + + + Care Team Providers + +------+ + | Care It Compliance Manager Name | Role | Phone | + +------+ + | Sarah Carroll MD | PCP | | + +------+ + Encounter Details +--------+ + + + + | Date | Type | Department | Care Team | Description | +--------+ + + + + | 07/01/ | Erp Programmer | Digestive Health | [place], | Constipation, | | 2019 | | [place] [facility] [address] | MD [address] | unspecified | | | | [address] | [address] | constipation type | | | | Mailcode: Center | [place], [place] | (Primary Dx) | | | | for Health and | [address] | | | | | [facility] | [phone] | | | | | [place], [place] | | | | | | [address] | | | | | | [phone] | | | +--------+ + + + [...] Rd | | | | | | [place], [place] | | | | | | [address] | | | | | | [phone] | | | | | | | | +--------+---------+ + + + documented as of this encounter Visit Diagnoses + + | Diagnosis | + + | Constipation, unspecified constipation type - Primary | + + documented in this encounter"
--- OUTSIDE RECORDS SUMMARY | ~2019-12-21 | XMS | Encounter Summary ---
Demographics + + + | Address | [address] [address] | | | [place] [address] | + + + | Home Phone | | + + + | Preferred Language | Unknown | + + + | Marital Status | Single | + + + | Denominational Affiliation | [id number] | + + + | Race | Unknown | + + + | Ethnic Group | Unknown | + + + Author + + + | Author | [facility] | | | and [place] | + + + | Organization | [facility] | | | [...] Team Providers + +------+ + | Care Apparel Designer Name | Role | Phone | + [...] + + | Closed | Specialty | Neurosurgery | Diagnoses | Roscoe, | Andrea | | | Services | | Peripheral | Riccardo Mcgill MD | Mario Liang MD | | | Required | | polyneuropat | [address] | | | | | hy Lumbar | [address] | [place], | | | | | radiculopath | [place], | [place] [address] | | | | | y Leg pain, | [place] [address] | Phone: | | | | | diffuse, | Phone: | [phone] | | | | | left | [phone] | Fax: | | | | | Paresthesia | Fax: | [phone] | | | | | of left leg | [phone] | | | | | | CRP | | | | | | | elevated Ds | | | | | | | DNA | | | | | | | antibody | | | | | | | positive | | | | | | | Numbness of | | | | | | | both lower | | | | | | | extremities | | | | | | | Bilateral | | | | | | | foot-drop | | | | | | | Chronic | | | | | | | bilateral | | | | | | | low back | | | | | | | pain with | | | | | | | bilateral | | | | | | | sciatica | | | | | | | Meralgia | | | | | | | paresthetica | | | | | | | of left | | | | | | | side Spinal | | | | | | | stenosis of | | | | | | | lumbar | | | | | | | region with | | | | | | | neurogenic | | | | | | | claudication | | | | | | | Arthritis | | | | | | | of lumbar | | | | | | | spine | | | | | | | Positive NICKIE | | | | | | | | | | | | | | (antinuclear | | | | | | | antibody) | | | +--------+ + + + + + Evaluate & Treat (Routine) +--------+ + + + + + | Status | Reason | Specialty | Diagnoses / | Referred By | Referred To | | | | | Procedures | Contact | Contact | +--------+ + + + + + | Closed | Specialty | Neurology | Diagnoses | Roscoe, | Abel, | | | Services | | Peripheral | Riccardo Mcgill MD | Pranav | | | Required | | polyneuropat | [address] | MD Leana | | | | | hy Lumbar | [address] | [address] | | | | | radiculopath | [place], | [address] | | | | | y Leg pain, | [place] [address] | [place], | | | | | diffuse, | Phone: | [place] [address] | | | | | left | [phone] | Phone: | | | | | Paresthesia | Fax: | [phone] | | | | | of left leg | [phone] | Fax: | | | | | CRP | | [phone] | | | | | elevated Ds | | | | | | | DNA | | | | | | | antibody | | | | | | | positive | | | | | | | Numbness of | | | | | | | both lower | | | | | | | extremities | | | | | | | Bilateral | | | | | | | foot-drop | | | | | | | Chronic | | | | | | | bilateral | | | | | | | low back | | | | | | | pain with | | | | | | | bilateral | | | | | | | sciatica | | | | | | | Meralgia | | | | | | | paresthetica | | | | | | | of left | | | | | | | side Spinal | | | | | | | stenosis of | | | | | | | lumbar | | | | | | | region with | | | | | | | neurogenic | | | | | | | claudication | | | | | | | Arthritis | | | | | | | of lumbar | | | | | | | spine | | | | | | | Positive NICKIE | | | | | | | | | | | | | | (antinuclear | | | | | | | antibody) | | | +--------+ + + + + + Evaluate & Treat (Urgent) +--------+ + + + + + | Status | Reason | Specialty | Diagnoses / | Referred By | Referred To | | | | | Procedures | Contact | Contact | +--------+ + + + + + | Closed | Specialty | Rheumatology | Diagnoses | [place]coe, | Quin, | | | Services | | Peripheral | Riccardo E A, MD | Angeli, MD | | | Required | | polyneuropat | [address] | | | | | hy CRP | [address] | [place] | | | | | elevated Ds | [place], | PLACE | | | | | DNA | [place] [address] | [place], [place] | | | | | antibody | Phone: | [phone] | | | | | positive | [phone] | Phone: | | | | | Positive NICKIE | Fax: | [phone] | | | | | | [phone] | Fax: | | | | | (antinuclear | | [phone] | | | | | antibody) | | | +--------+ + + + + + Reason for Visit + + + | Reason | Comments | + + + | Back Pain | | + + + | Leg Pain | | + + + | Numbness | left leg | + + + | Extremity Weakness | left leg | + + + Encounter Details +--------+---------+ + + + | Date | Type | Department | Care Team | Description | +--------+---------+ + + + | 03/10/ | Office | [facility] | Riccardo Malhotra, | Peripheral | | 2019 | Visit | PHYSIATRY [address] | [address] | polyneuropathy | | | | [address] | [place] | (Primary Dx); Lumbar | | | | [place] | [address] | radiculopathy; Leg | | | | [address] | | pain, diffuse, left; | | | | [phone] | | Paresthesia of left | | | | | | leg; CRP elevated; | | | | | | Ds DNA antibody | | | | | | positive; Numbness | | | | | | of both lower | | | | | | extremities; | | | | | | Bilateral foot-drop; | | | | | | Chronic bilateral | | | | | | low back pain with | | | | | | bilateral sciatica; | | | | | | Meralgia | | | | | | paresthetica of left | | | | | | side; Spinal | | | | | | stenosis of lumbar | | | | | | region with | | | | | | neurogenic | | | | | | claudication; | | | | | | Arthritis of lumbar | | | | | | spine; Positive NICKIE | | | | | | (antinuclear | | | | | | antibody); Spinal | | | | | | stenosis of lumbar | | | | | | region without | | | | | | neurogenic | | | | | | claudication | +--------+---------+ + + + Social History [...] + + + | Blood Pressure | 156/78 | 03/10/2019 3:46 PM | | | | | PDT | | + + + + + | Pulse | 72 | 03/10/2019 3:46 PM | | | | | PDT | | + + + + + | Temperature | - | - | | + + + + + | Respiratory Rate | - | - | | + + + + + | Oxygen Saturation | - | - | | + + + + + | Inhaled Oxygen | - | - | | | Concentration | | | | + + + + + | Weight | 163.7 kg (361 lb) | 03/10/2019 3:46 PM | | | | | PDT | | + + + + + | Height | 180.3 cm (5' 11") | 03/10/2019 3:46 PM | | | | | PDT | | + + + + + | Body Mass Index | 50.35 | 03/10/2019 3:46 PM | | | | | PDT [...] of this encounter Patient Instructions Patient Instructions Pretty Schaefer RN - 03/10/2019 3:30 PM PDTPlease see the rheumato logist URGENTLY. Today we reviewed your labs, the labs indicates that you have an autoimmune disorder (your own body attaching itself). Please see a neurosurgeon about your back, you have significant narrowing around the nerves in your low back. Please see a neurosurgeon. The benefits of physical therapy are not achieved after days or weeks, rather they are achi eved over months to years. An individual should plan to continue physical therapy exercises independently at home indefinitely, even when an individual is feeling better they should s till continue exercises. You are encouraged to maintain physical activity.Inactivity may increase rate of degenera tion when arthritis is involved. Activity helps to maintains function, strength, and mobil ity. Please work towards weight loss, research demonstrates that weight loss is the most effecti ve treatment for back pain. If you have weakness in the legs that is getting slowly worse over time, return to the clin ic for reevaluation. If you have increasing pain, return to the clinic for reevaluation. If you develop profound leg weakness, seek emergent medical attention. If you have bowel and/or bladder incontinence, seek emergent medical attention. documented in this encounter Progress Notes Riccardo Malhotra MD - 03/10/2019 3:30 PM PDTFormatting of this note might be different fro m the original. Riccardo Malhotra MD [address] [place] [address], [address] [place] [address] FAX: PHYSICAL MEDICINE AND REHABILITATION H&P CHIEF COMPLAINT: Chief Complaint Patient presents with Back Pain Leg Pain Numbness left leg Extremity Weakness left leg HISTORY OF PRESENT ILLNESS: Aaron Latham is a 58 y.o. male being seen today in follow-up for complaints of back pain and symptoms of peripheral neuropathy. Aaron Latham was last seen on 019, when nerve study was completed that demonstrated peripheral neuropathy. Previously it w as recommended that have laboratory testing completed, and have a Lumbar MRI completed. Overall Aaron Latham reports that his symptoms are of back pain are improving. His symptoms of numbness are persisting. Aaron Latham rates the left leg pain as 2 on s bharti of 1-10. Aaron Latham describes the left leg pain as aching, sharp or stabbing in the left lower leg. His symptoms worsen with sneezing, prolonged sitting, physical activ ity. His symptoms improve with chiropractor and icy hot. Aaron Latham does describ e numbness of the left lower extremity. He does report weakness of the left lower extremit y. He does not have bowel and bladder dysfunction. He does not have saddle anesthesia. Treatments for these complaints have included physical therapy that is upcoming, at home moo craft. Aaron Latham is currently taking Tylenol and Celebrex for ashley atment of pain. Which the patient reports as helping with the left leg pain, but not complet veronica managing it. Aaron Latham's medications, allergies, past medical, surgical, social and family his tories were reviewed and updated as appropriate. CURRENT MEDICATIONS: Current Outpatient Medications Medication Sig Dispense Refill acetaminophen (TYLENOL) 500 mg tablet Take 325 mg by mouth every 4 hours as needed for Pain. allopurinol (ZYLOPRIM) 300 mg tablet take 1 tablet by mouth once daily 0 atorvaSTATin (LIPITOR) 80 MG tablet Take 80 mg by mouth nightly. calcium-vitamin D (OYSTER SHELL CALCIUM/D) 500 mg-200 units per tablet Take 1 tablet by mouth three times daily. carvedilol (COREG) 6.25 mg tablet Take 6.25 mg by mouth 2 times daily (with breakfast & dinner). celecoxib (CELEBREX) 200 mg capsule take 1 capsule by mouth once daily with food 0 Cholecalciferol (VITAMIN D-3) 2000 units CAPS Take 2,000 Units by mouth Daily. colchicine 0.6 mg tablet Take 0.6 mg by mouth Daily. cyanocobalamin (VITAMIN B-12) 1000 MCG tablet Take 1,000 mcg by mouth Daily. docusate sodium (COLACE) 100 mg capsule Take 1-2 capsules by mouth Daily. (Patient not taking: Reported on 07/17/2018) 30 capsule 0 ferrous sulfate 325 mg tablet Take 325 mg by mouth daily (with breakfast). hydrALAZINE (APRESOLINE) 50 MG tablet Take 50 mg by mouth 3 times daily. isosorbide mononitrate (IMDUR) 60 mg ER tablet Take 60 mg by mouth Daily. levothyroxine (SYNTHROID) 25 mcg tablet Take 25 mcg by mouth every morning (before aman kfast). magnesium oxide (MAG-OX) 400 mg tablet 0 non-formulary medication Apply topically 2 times daily. FLUCONAZOLE DMSO 5% APPLY TO T OES ondansetron (ZOFRAN) 4 mg tablet take 1 tablet by mouth four times a day if needed for nausea and vomiting 0 oxyCODONE (ROXICODONE) 5 mg tablet Take 1-2 tablets by mouth every 6 hours as needed fo r Pain. (Patient not taking: Reported on 07/17/2018) 40 tablet 0 spironolactone (ALDACTONE) 50 mg tablet Take 100 mg by mouth Daily. tamsulosin (FLOMAX) 0.4 mg CAPS Take 1 capsule by mouth daily (after breakfast). 30 cap benjamin 1 torsemide (DEMADEX) 10 mg tablet 0 warfarin (COUMADIN) 5 mg tablet Take 5-10 mg by mouth Daily. No current facility-administered medications for this visit. ALLERGIES: No Known Allergies REVIEW OF SYSTEMS: Review of Systems Eyes: Negative. Cardiovascular: Negative. CHF Gastrointestinal: Negative. Genitourinary: Negative. Musculoskeletal: Positive for back pain, joint pain, myalgias and neck pain. Neurological: Positive for tingling and weakness. Negative for focal weakness. Psychiatric/Behavioral: Positive for depression. Negative for hallucinations. The patient h as insomnia. The patient is not nervous/anxious. PHYSICAL EXAMINATION: Body mass index is 50.35 kg/m. Vitals: 03/10/19 1546 BP: 156/78 Pulse: 72 GENERAL: The patient is well developed and well nourished. He does not appear uncomfortabl e when seated. HEENT: Normocephalic and atraumatic. Normal sclerae without icterus. NECK (ANTERIOR): There is no apparent cervical lymphadenopathy or thyromegaly. PULMONARY: The patient is in no acute respiratory distress with unlabored respirations. CARDIOVASCULAR: Regular rate and rhythm. There is lower extremity edema. ABDOMEN: Non-distended. SKIN: Limited skin exam shows no significant rashes or lesions. NEUROLOGIC: The patient is awake, alert, and oriented. He follows simple and complex commands. His speech is fluent. He comprehends speech well. He has no apparent deficits with short or penitentiary memory. The cranial nerves appear grossly intact. MUSCULOSKELETAL : The patient localized the majority of the pain to the left lower extremit y region up to the lower back. There was no redness, effusion, warmth or joint line tenderness in the knees or ankles. DATABASE: Lumbar MRI without contrast competed 03/03/2019 was reviewed personally by me in detail du sylvester today's visit. I concur with the results as reported by the Radiologist. The imaging d emonstrates: "Degenerative changes cause severe central canal stenosis at L1-L2, L3-L4 and L 4-L5, and moderate to severe central canal stenosis at L2-L3. There is effacement of the CSF space at these levels, with some impression upon the traversing cauda equina nerve roots. D egenerative disc disease and facet arthropathy cause multilevel moderate to severe foraminal stenosis." ASSESSMENT: 1. Peripheral polyneuropathy 2. Lumbar radiculopathy 3. Leg pain, diffuse, left 4. Paresthesia of left leg 5. CRP elevated 6. Ds DNA antibody positive 7. Numbness of both lower extremities 8. Bilateral foot-drop 9. Chronic bilateral low back pain with bilateral sciatica 10. Meralgia paresthetica of left side 11. Spinal stenosis of lumbar region with neurogenic claudication 12. Arthritis of lumbar spine 13. Positive NICKIE (antinuclear antibody) PLAN: 1. Aaron Latham returns to the clinic today to review his Lumbar MRI results and his laboratory testing results. 2. The differential diagnosis most consistent with Aaron Latham's physical assessmen t and report of symptoms included, but is not limited to: spinal stenosis, lumbar radiculopa thy, Lupus (query), autoimmune neuropathy, peripheral neuropathy, thyroid deficiency, and/or anemia. 3. Today we discussed the previous NCS study which demonstrated axonal peripheral neuropath y. Which was discussed to be most likely due to an autoimmune disease. Aaorn Latham should be evaluated with neurology, a referral will be sent to [facility], based on his NCS results. We discussed that Neurology is to help make diagnoses of the nerve s, and what is occurring to them. 4. Today we discussed with Aaron Latham his lab results, which demonstrated multiple abnormal findings. His NICKIE test came back with multiple positives;the dsDNA Antibody came b ack positive which could indicate evidence of autoimmune disorder such as has Lupus or a con nective tissue disease. Sjogren B AB lab was also elevated which further points to an autoim mune disorder. Aaron Latham has had an elevated C-Reactive Protein. In summary all of these findings point to evidence of an autoimmune disorder. In addition to his back pain a nd neuropathy, Aaron Latham also sufferers from cardiac disease and chronic kidney di sease, as well as colon cancer. Based on the above abnormal lab results an additional rheumatology referral has been sent t o [facility] under the classification of urgent. We highly encourage Aaron Latham to foll ow through with this referral promptly. 5. With Aaron Latham and the possible diagnosis of Lupus we discussed the side effec ts and symptoms of Lupus. Lupus can lead to kidney damage. We also discussed that Lupus may be the underlying cause of Aaron Latham's other underlying medical issues. 6. Today as we reviewed lab results it was noted that Aaron Latham's blood sugars we re slightly elevated, but that his 2-hour glucose tolerance test was within normal limits. T his displays that Aaron Latham is a non-diabetic. 7. Aaron Latham lab results also show anemia, which could be a factor in his left le g numbness. The patient reports his anemia began with his warfain medication start date, whi ch was 06/14/2018. He should follow up regarding this abnormal lab with his PCP for further guidance of treatment. 8. Today we discussed that Aaron Stewards TSH level was elevated which can show a th yroid dysfunction, which could have been due to the stress in which Aaron Latham's kolby dy was under. It was also discussed just how vital a role the thyroid plays in the patient's life, regulating hormones. He should follow up regarding this abnormal lab with his PCP for further guidance of treatment. 9. Today we discussed Aaron Latham possibility of having paraneoplastic syndrome. He has colon cancer. Paraneoplastic neuropathy with colon cancer is extremely rare, so this is much less likely. 10. Today we discussed and reviewed Aaron Latham's Lumbar MRI, which showcased lumba r arthritis, lumbar stenosis, and lumbar radiculopathy. Based on the results of the imaging we discussed that these findings could be contributing to his back pain, left leg numbness, left leg weakness, and left leg pain. 11. One of the differential diagnosis most consistent with Aaron Latham's physical a ssessment and report of symptoms included, but is not limited to: lumbar radiculopathy, lumb ar stenosis. Aaron Latham was advised of the available treatments for this condition including; weight loss, exercise/Physical Therapy, neuropathic pain medication, interventio nal steroid injections, and surgical intervention as a last resort if symptoms and imaging i ndicate. We discussed that the goal of therapy is to improve lumbar and core strength to reduce the muscles workload and optimize space surroundings the nerves as they exit in the lumbar spine . 12. We discussed that the benefits of physical therapy are not achieved after days or weeks , rather they are achieved over months to years. We dicussed that an individual should plan to continue physical therapy exercises independently at home indefinitely. We dicussed that even when an individual is feeling better they should still continue exercises. 12. Aaron Latham was encouraged to work toward weight loss. We discussed [facility] indicates that weight loss is the most powerful treatment for back pain. 15. Today we discussed the possibility of going to see a neurosurgeon to look more into his lumbar radiculopathy. A referral has been sent to [facility] for a neurosurgeon consultation to jazmine martin at Aaron Latham's lower back to evaluate and offer advise as to how to proceed [facility] care. 15. Aaron Latham is advised that should he have a loss of bowel or bladder control t hat he should seek emergent medical attention. Aaron Latham was instructed that if he experiences any progressive or profound weakness that he needs to seek urgent medical atte ntion. Aaron Latham has been advised that if he has any significant changes in strength jenise t he should return to the clinic. 16. No follow-up appointment needed at this time. In summary, Aaron Latham has back pain and foot drop. He completed lumbar MRI which demonstrates spinal stenosis, which is likely contributing to his back pain and foot drop. We reviewed treatment options such as PT, weight loss, injection, surgery. Given that has foot drop it is prudent that he is seen by neurosurgery. Neurosurgical consult has been req uested. Aaron Latham also has superimposed axonal peripheral neuropathy. His leg weakness a nd symptoms may be from a combination of spinal stenosis and peripheral neuropathy. He has positive NICKIE, positive dsDNA, positive Sjogren's B AB, elevated ESR, elevated CRP, stage III renal failure without specific cause. He may have mixed connective tissue disease, Sjogren 's, or possibly SLE. Rheumatology consult has been requested, but autoimmune neuropathy is a diagnostic consideration. Aaron Latham has colon cancer. Paraneoplastic neuropath y is a diagnostic consideration, but is also rarely seen with colon cancer. Neurology consu lt has been requested for further diagnostic evaluation to the origin of Aaron Latham 's axonal neuropathy. I spent 45 minutes in visit with Aaron Latham today with the majority of time spent counseling the patient on his diagnosis, options for his care, and coordinating his care. I, Riccardo Malhotra MD personally performed the services described in this documentation, as scribed by in my presence, Yeni Palmer RN and are both accurate and complete. Riccardo Malhotra MD - 03/10/2019 documented in this en counter Plan of Treatment +--------+---------+ + + + | Date | Type | Specialty | Care Team | Description | +--------+---------+ + + + | 03/17/ | Office | Cardiology | Lorraine Clifton DO | | | 2020 | Visit | | [address] | | | | | | [place] | | | | | | [address] | | | | | | | | +--------+---------+ + + + + + +--------+ + + | Name | Type | Priori | Associated Diagnoses | Order Schedule | | | | ty | | | + + +--------+ + + | Rheumatology, | Outpatient | STAT | Peripheral | Ordered: 03/10/2019 | | External - AMB | Referral | | polyneuropathy CRP | | | Referral | | | elevated Ds DNA | | | | | | antibody positive | | | | | | Positive NICKIE | | | | | | (antinuclear | | | | | | antibody) | | + + +--------+ + + | [facility] | Outpatient | Routin | Peripheral | Ordered: 03/10/2019 | | - AMB Referral | Referral | e | polyneuropathy | | | | | | Lumbar radiculopathy | | | | | | Leg pain, diffuse, | | | | | | left Paresthesia | | | | | | of left leg CRP | | | | | | elevated Ds DNA | | | | | | antibody positive | | | | | | Numbness of both | | | | | | lower extremities | | | | | | Bilateral foot-drop | | | | | | Chronic bilateral | | | | | | low back pain with | | | | | | bilateral sciatica | | | | | | Meralgia | | | | | | paresthetica of left | | | | | | side Spinal | | | | | | stenosis of lumbar | | | | | | region with | | | | | | neurogenic | | | | | | claudication | | | | | | Arthritis of lumbar | | | | | | spine Positive NICKIE | | | | | | (antinuclear | | | | | | antibody) | | + + +--------+ + + | Neurosurgery, | Outpatient | Routin | Peripheral | Ordered: 03/10/2019 | | External - AMB | Referral | e | polyneuropathy | | | Referral | | | Lumbar radiculopathy | | | | | | Leg pain, diffuse, | | | | | | left Paresthesia | | | | | | of left leg CRP | | | | | | elevated Ds DNA | | | | | | antibody positive | | | | | | Numbness of both | | | | | | lower extremities | | | | | | Bilateral foot-drop | | | | | | Chronic bilateral | | | | | | low back pain with | | | | | | bilateral sciatica | | | | | | Meralgia | | | | | | paresthetica of left | | | | | | side Spinal | | | | | | stenosis of lumbar | | | | | | region with | | | | | | neurogenic | | | | | | claudication | | | | | | Arthritis of lumbar | | | | | | spine Positive NICKIE | | | | | | (antinuclear | | | | | | antibody) | | + + +--------+ + + documented as of this encounter Visit Diagnoses + + | Diagnosis | + + | Peripheral polyneuropathy - Primary Unspecified hereditary and idiopathic peripheral | | neuropathy | + + | Lumbar radiculopathy Thoracic or lumbosacral neuritis or radiculitis, unspecified | + + | Leg pain, diffuse, left | + + | Paresthesia of left leg Disturbance of skin sensation | + + | CRP elevated Elevated C-reactive protein (CRP) | + + | Ds DNA antibody positive Other and unspecified nonspecific immunological findings | + + | Numbness of both lower extremities | + + | Bilateral foot-drop Other acquired deformity of ankle and foot | + + | Chronic bilateral low back pain with bilateral sciatica | + + | Meralgia paresthetica of left side Meralgia paresthetica | + + | Spinal stenosis of lumbar region with neurogenic claudication Spinal stenosis, lumbar | | region, with neurogenic claudication | + + | Arthritis of lumbar spine Lumbosacral spondylosis without myelopathy | + + | Positive NICKIE (antinuclear antibody) Other and unspecified nonspecific immunological | | findings | + + | Spinal stenosis of lumbar region without neurogenic claudication Spinal stenosis, | | lumbar region, without neurogenic claudication | + + documented in this encounter
--- OUTSIDE RECORDS SUMMARY | ~2019-12-21 | XMS | Encounter Summary ---
Demographics + + + | Address | [address] | | | [place] [address] | + + + | Home Phone | | + + + | Preferred Language | Unknown | + + + | Marital Status | Single | + + + | Denominational Affiliation | LDS | + + + | Race | White | + + + | Ethnic Group | Not or | + + + Author + + + | Author | [facility] | + + + | Organization | [facility] | + + + | Address | Unknown | + + + | Phone | Unavailable | + + + Support + + + + + | Name | Relationship | Address | Phone | + + + + + | Toby Latham | AN[place] | [address] | | | | | [place] | | | | | [address] | | + + + + + Care Team Providers + +------+ + | Care Faith Healer Name | Role | Phone | + +------+ + PCP | Unavailable | + +------+ + Encounter Details +--------+ + + + + | Date | Type | Department | Care Team | Description | +--------+ + + + + | 01/14/ | Abstract | Dig[facility]ive [facility] | Clinic, Surgery | | | 2019 | | [place] [facility] [address] | | | | | | Doug [place] | | | | | | Mailcode: [place] | | | | | | [facility] | | | | | | Healing, [address] | | | | | | [facility] [place] | | | | | | [address] | | | | | | [phone] | | | +--------+ + + + [...] | | 2019 | Visit | | [address] | | | | | | [address] | | | | | | [place], [place] | | | | | | [address] | | | | | | [phone] | | | | | | | | +--------+---------+ + + + documented as of this encounter Visit Diagnoses Not on filedocumented in this encounter"
--- OUTSIDE RECORDS SUMMARY | ~2019-12-21 | XMS | Encounter Summary ---
Demographics + + + | Address | [address] | | | [place] [address] | + + + | Home Phone | | + + + | Preferred Language | Unknown | + + + | Marital Status | Single | + + + | Holiness Affiliation | LDS | + + + | Race | White | + + + | Ethnic Group | Not or | + + + Author + + + | Author | [facility] | + + + | Organization | [facility] | + + + | Address | Unknown | + + + | Phone | Unavailable | + + + Support + + + + + | Name | Relationship | Address | Phone | + + + + + | Toby Latham | ANNA | [address] | | | | | [place] | | | | | [address] | | + + + + + Care Team Providers + +------+ + | Care Photo Optics Technician Name | Role | Phone | + +------+ + | Sarah Carroll MD | PCP | | + +------+ + Encounter Details +--------+ + + + + | Date | Type | Department | Care Team | Description | +--------+ + + + + | 07/01/ | Transcribe | [facility] | Transcribe | | | 2019 | Orders | [place] [address] | Encounter, Provider, | | | | | [place] Mailcode: | [address] | | | | | [facility] | [place] [address] | | | | | Health and Healing, | | | | | | [address] | | | | | | [place], [place] | | | | | | [address] | | | | | | [phone] | | | +--------+ + + + [...] | | 2019 | Visit | | [address] | | | | | | [address] | | | | | | [place], [place] | | | | | | [address] | | | | | | [phone] | | | | | | | | +--------+---------+ + + + + + +--------+ + + | Name | Type | Priori | Associated Diagnoses | Order Schedule | | | | ty | | | + + +--------+ + + | COLONOSCOPY | Procedures | Urgent | Polyp of colon, | Expected: 07/01/2019 | | | | | unspecified part of | | | | | | colon, unspecified | | | | | | type | | + + +--------+ + + documented as of this encounter Visit Diagnoses + + | Diagnosis | + + | Polyp of colon, unspecified part of colon, unspecified type - Primary | + + documented in this encounter"
--- OUTSIDE RECORDS SUMMARY | ~2019-12-21 | XMS | Encounter Summary ---
Demographics + + + | Address | [address] | | | [place] [address] | + + + | Home Phone | | + + + | Preferred Language | Unknown | + + + | Marital Status | Single | + + + | Anabaptist Affiliation | LDS | + + + | Race | White | + + + | Ethnic Group | Not or | + + + Author + + + | Author | [facility] | + + + | Organization | [facility] | + + + | Address | Unknown | + + + | Phone | Unavailable | + + + Support + + + + + | Name | Relationship | Address | Phone | + + + + + | Toby Latham | AN[place] | [address] | | | | | [place] | | | | | [address] | | + + + + + Care Team Providers + +------+ + | Care Overnight Babysitter Name | Role | Phone | + [...] + + + + | 04/14/ | Hospital | Multi-Specialty | Milad Ludwig | | | 2019 | Encounter | Procedural Unit | MD Steven [address] [facility] | | | | | ([facility]) at [facility] [address] | | | | | Doug Grij[place] | [place], [place] | | | | | Mailcode: [place] | [address] | | | | | for [facility] and | [phone] | | | | | [facility] | | | | | | [place], [place] | | | | | | [address] | | | | | | [phone] | | | +--------+ + + + [...] + + + | Blood Pressure | 150/75 | 04/14/2019 2:00 PM | | | | | PDT | | + + + + + | Pulse | 78 | 04/14/2019 12:45 PM | | | | | PDT | | + + + + + | Temperature | 36.9 C (98.4 F) | 04/14/2019 11:07 AM | | | | | PDT | | + + + + + | Respiratory Rate | 12 | 04/14/2019 12:45 PM | | | | | PDT | | + + + + + | Oxygen Saturation | 90% | 04/14/2019 2:00 PM | | | | | PDT | | + + + + + | Inhaled Oxygen | - | - | | | Concentration | | | | + + + + + | Weight | 163.7 kg (361 lb) | 04/14/2019 11:07 AM | | | | | PDT | | + + + + + | Height | 180.3 cm (5' 11") | 04/14/2019 11:07 AM | | | | | PDT | | + + + + + | Body Mass Index | 50.35 | 04/14/2019 11:07 AM | | | | | PDT | | + + + + + documented in this encounter Discharge Instructions Flavio Mccollum RN - 04/14/2019Home Care Instructions after Colonoscopy You may resume your normal diet and medications unless told otherwise. Medications The medications you received can cause you to be forgetful and drowsy and will take the rem ainder of the day to wear off. DO NOT drink alcohol, drive, operate heavy machinery, sign legal documents, or make major d ecisions until tomorrow. Common After Effects ? Mild abdominal pain, bloating, and excessive gas. This is caused by the air that was put in your colon during the procedure. These symptoms will improve as you pass gas. ? You may bruise at your IV site. If you have pain, redness, or swelling at your IV site ap ply a warm compress. Activity Light activity such as walking will help you pass the air that was put into your colon. Complications Call your GI doctor if you have: Abnormal pain or any new unexplained symptoms. Bright red rectal bleeding Fever above 101.5 Redness, pain, or swelling at your IV site that is not relieved with warm compress. For any questions related to your procedure call: Saturday- Saturday 8:00- 4:30 Call the endoscopy department toll free ext. [phone] or After business hours or on weekends and holidays call the Hospital Converter Operator toll free [phone] Ext. [phone] or and have the GI doctor pulmonology physician paged. The provider who performed your procedure is: Dr. Vasquez Results of your colonoscopy: Very poor prep- will need to re schedule Recommended follow up Colonoscopy: TEE Follow up Appointments with: Referring Provider. Thank you for choosing [facility]! Your primary care provider or referring provider will receive copies of the procedure repor t and all pathology reports with recommendations for treatment if needed. If Noted above that biopsies were taken or polyps removed you will receive the results in a pproximately 1 week. If you have not heard from us after 2 weeks please call for your result s. documented in this encounter Medications at Time of Discharge + + + +---------+ + + | Medication | Sig | Dispensed | Refills | Start | End Date | | | | | | Date | | + + + +---------+ + + | allopurinol 300 mg | Take 150 mg by mouth | | 0 | | | | oral tablet | once daily. | | | | | + + + +---------+ + + | atorvastatin 80 mg | Take 80 mg by mouth | | 0 | | | | oral tablet | once daily. | | | | | + + + +---------+ + + | calcium-vitamin D | Take 1 tablet by | | 0 | | | | 500 mg(1,250mg) -200 | mouth three times | | | | | | unit oral tablet | daily. | | | | | + + + +---------+ + + | carvedilol 6.25 mg | Take 6.25 mg by | | 0 | | | | oral tablet | mouth two times | | | | | | | daily. Administer | | | | | | | with food. | | | | | + + + +---------+ + + | colchicine 0.6 mg | Take 0.6 mg by mouth | | 0 | | | | oral tablet | two times daily. | | | | | + + + +---------+ + + | cyanocobalamin | Inject 1,000 mcg | | 0 | | | | 1,000 mcg/mL | under the skin | | | | | | injection solution | (SUBC) every thirty | | | | | | | days. | | | | | + + + +---------+ + + | ferrous sulfate | Take 325 mg by mouth | | 0 | | | | 325 mg (65 mg iron) | once daily. | | | | | | oral tablet | | | | | | + + + +---------+ + + | hydrALAZINE 50 mg | Take 50 mg by mouth | | 0 | | | | oral tablet | three times daily. | | | | | + + + +---------+ + + | levothyroxine 25 | Take 25 mcg by mouth | | 0 | | | | mcg oral tablet | before breakfast. | | | | | + + + +---------+ + + | magnesium oxide | Take 400 mg by mouth | | 0 | | | | 400 mg oral tablet | once daily. | | | | | + + + +---------+ + + | torsemide 10 mg | Take 20 mg by mouth | | 0 | | | | oral tablet | once daily. | | | | | + + + +---------+ + + | warfarin 5 mg oral | Take 5 mg by mouth | | 0 | | | | tabletIndications: | Use as directed. | | | | | | 3 (15mg) on | Indications: 3 | | | | | | tuesdays, 3 (15mg) | (15mg) on tuesdays, | | | | | | on fridays | 3 (15mg) on fridays | | | | | + + + +---------+ + + | peg-electrolyte | Take 8,000 mL by | 8000 mL | 0 | 06/24/20 | | | [phone] -5.86 | mouth once for 1 | | | 19 | 9 | | gram oral recon | dose. Take 8000 mL | | | | | | solnIndications: | once. Begin drinking | | | | | | bowel evacuation | 2 days prior to | | | | | | | colonoscopy as | | | | | | | directed by [facility] | | | | | | | Indications: | | | | | | | emptying of the | | | | | | | bowel | | | | | + + + +---------+ + + documented as of this encounter Progress Notes Charles Vasquez MD - 04/14/2019 11:54 AM PDT PRE PROCEDURE NOTE: MR# [id number] Subjective: Aaron Latham is a 59 y.o. male who presents today for a GI procedure. Patient History Reviewed Medications reviewed Allergies: Allergies as of 02/10/2019 (No Known Allergies) Pt NPO for MN hrs. ROS: All others negative. Objective: Vital Signs: BP 167/86 (BP Location: Right upper arm, Patient Position: Lying on back) | P ulse 76 | Temp 36.9 C (98.4 F) (Oral) | Resp 18 | Ht 1.803 m (5' 11") | Wt 163.7 kg (361 lb) | SpO2 98% | BMI 50.35 kg/m | BSA 2.86 m Neuro: Patient oriented X3. Mental status clear and intact Mallampati Score: II Neck Neck supple. No adenopathy Respiratory: negative findings: no chest deformities noted, normal diaphragmatic excursion Cardiovascular: peripheral pulses are wnl, no edema Abdomen: nontender, no masses, no organomegaly Impression Patient deemed appropriate candidate for planned procedure and sedation. ASA II Mallipati II Plan Proceed with GI procedure PARQ held and all questions addressed. Consent obtained. See procedure note 04/14/2019 documented in this encounter Plan of Treatment +--------+---------+ + + + | Date | Type | Specialty | Care Team | Description | +--------+---------+ + + + | 01/20/ | Office | Orthopedics | Richard Harvey, | | | 2019 | Visit | | [address] [facility] | | | | | | [facility] | | | | | | [place], [place] | | | | | | [address] | | | | | | [phone] | | | | | | | | +--------+---------+ + + + documented as of this encounter Procedures + +--------+ + + + | Procedure Name | Priori | Date/Time | Associated Diagnosis | Comments | | | ty | | | | + +--------+ + + + | PROCEDURE NOTE | Routin | 04/14/2019 | | Results for this | | | e | 3:00 PM | | procedure are in the | | | | PDT | | results section. | + +--------+ + + + | INR (PT), POC | Routin | 04/14/2019 | Adenomatous polyp | Results for this | | | e | 12:07 PM | of ascending colon | procedure are in the | | | | PDT | | results section. | + +--------+ + + + | COLONOSCOPY | Routin | 04/14/2019 | Adenomatous polyp | Results for this | | | e | 11:50 AM | of ascending colon | procedure are in the | | | | PDT | | results section. | + +--------+ + + + documented in this encounter Results PROCEDURE NOTE (04/14/2019 3:00 PM PDT)INR (PT), POC (04/14/2019 12:07 PM PDT) + +-------+ + + + | Component | Value | Ref Range | Performed | Pathologist | | | | | At | Signature | + +-------+ + + + | PROTHROMBIN | 1.1 | 0.9 - 1.2 INR | [facility], | | | TIME | | | POINT OF | | | (INR), POC | | | CARE TESTS | | + +-------+ + + + + + | Specimen | + + | Blood - Blood | | (substance) | + + + + + + + | Performing | Address | City/State/Zipcode | Phone Number | | Organization | | | | + + + + + | [facility] | [address] | [place] [address] | | | OF CARE TESTS | | | | + + + + + COLONOSCOPY (04/14/2019 11:50 AM PDT) + + | Specimen | + + | | + + + + + | Narrative | Performed At | + + + | MRN: | [facility] | | [id number] Date: 04/14/2019Patient Name: Aaron Justin #: | ENDOSCOPY | | [id number] of : 1960SN: [id number] Type: | | | AmbulatoryRoom: Endo 5Procedure: | | | ColonoscopyIndications: Therapeutic procedure for colon | | | polyps (TV cecal polyp), hx of | | | colorectal cancer s/p LARPatient Profile: This is a 59 year old | | | male. Refer to note in patient chart | | | for documentation of history and physical.Providers: | | | CHARLES VASQUEZ MD (Doctor), FLAVIO DUTTA, XIOMARA | | | (Nurse), GENEVA FLORES RN (Nurse), NGHIA YBARRA | | | (Massage Therapist), PADMAJA ROSS | | | (Massage Therapist)Referring MD: JACK TINOCO JR, | | | MDRequesting Provider: Medicines: See the Anesthesia | | | note for documentation of the | | | administered medicationsComplications: No immediate | | | complications.Procedure: Pre-Anesthesia Assessment: | | | - Airway Examination: Mallampati Class III | | | (part of the uvula and soft palate | | | visualized). - After reviewing the risks | | | and benefits, the patient was deemed | | | in satisfactory condition to undergo the | | | procedure. - ASA Grade Assessment: | | | III - A patient with severe systemic | | | disease. Prior to the procedure, a | | | History and Physical with airway | | | assessment was performed (see patient record), | | | and patient medications and allergies were reviewed. The | | | risks and benefits of the procedure and the | | | sedation options and risks were | | | discussed. All questions were answered | | | and informed consent was obtained. After | | | reviewing the risks and benefits, the patient was deemed | | | in satisfactory condition to undergo the | | | procedure. Immediately prior to | | | administration of medications, the | | | patient was re-assessed for adequacy to receive | | | sedatives. The heart rate, respiratory rate, oxygen | | | saturations, blood pressure, adequacy of | | | pulmonary ventilation, and response to | | | care were monitored throughout the | | | procedure. The physical status of the | | | patient was re-assessed after the procedure. The Olympus | | | [id number] Colonoscope #[id number] was introduced | | | through the anus with the intention of | | | advancing to the cecum. The scope was | | | advanced to the transverse colon before | | | the procedure was aborted. Medications were given. The | | | colonoscopy was performed without difficulty. The | | | patient tolerated the procedure fairly | | | well. The quality of the bowel | | | preparation was poor and unsatisfactory.Estimated Blood Loss: | | | Estimated blood loss: none.Findings: The perianal and digital | | | rectal examinations were normal. There was evidence of a prior | | | end-to-side low-anterior anastomosis in the recto-sigmoid | | | colon. This was patent and was characterized by healthy | | | appearing mucosa. The anastomosis was traversed. Extensive | | | amounts of semi-solid stool was found in the entire colon, | | | precluding visualization.Moderate Sedation: patient given | | | MACImpression: - Preparation of the colon was poor and | | | unsatisfactory for polyp removal (EMR). | | | Procedure was aborted. - Evidence of | | | low-anterior anastomosis.Recommendation: - Repeat colonoscopy | | | with anesthesia and an advanced | | | provider at next available appointment (within 3 months) | | | because the bowel preparation was poor. | | | - For future colonoscopy the patient will require an | | | extended preparation (2 galloons of | | | Golytely with 2 day-SPLIT). If there | | | are any questions, please contact the | | | unemployment benefits claims taker. - Stop | | | anticoagulation (coumadin) 5 days before next | | | scheduled procedure.CHARLES VASQUEZ MD04/14/2019 12:45:46 | | | PMNumber of Addenda: 0Note Initiated On: 04/14/2019 11:50 AM | | |CHARLES VASQUEZ MD | | |04/14/2019 12:45:46 PM | | |Number of Addenda: 0 | | |Note Initiated On: 04/14/2019 11:50 AM | | + + + + +---------+ + + | Performing | Address | City/State/Zipcode | Phone Number | | Organization | | | | + +---------+ + + | [facility] | | | | + +---------+ + + documented in this encounter Visit Diagnoses + + | Diagnosis | + + | Adenomatous polyp of ascending colon | + + documented in this encounter Administered Medications + +--------+---------+------+------+------+ | Medication Order | MAR | Action | Dose | Rate | Site | | | Action | Date | | | | + +--------+---------+------+------+------+ + +---+ | lidocaine viscous (XYLOCAINE | | | VISCOUS) 2 % mucosal solution 15 | | | mL 15 mL, oral, INTRAPROCEDURE | | | PRN, Starting 04/14/19 at 1057, | | | Until 04/14/19 at 2111, sore | | | oropharynx | | + +---+ | | | + +---+ | simethicone (MYLICON) | | | suspension 3.333 mg 3.333 mg | | | (rounded from 3.3333 mg = 1 | | | drop), oral, INTRAPROCEDURE PRN, | | | Starting 04/14/19 at 1057, | | | Until 04/14/19 at 2111, gas | | | bubbles in endoscope | | + +---+ | | | + +---+ | sodium chloride 0.9 % (NS) IV | | | infusion 10 mL/hr, intravenous, | | | CONTINUOUS, Starting 04/14/19 | | | at 1100, Until 04/14/19 at 2112 | | + +---+ | | | + +---+ documented in this encounter
--- OUTSIDE RECORDS SUMMARY | ~2019-12-21 | XMS | Encounter Summary ---
Demographics + + + | Address | [address] [address] | | | [place] [address] | + + + | Home Phone | | + + + | Preferred Language | Unknown | + + + | Marital Status | Single | + + + | Yarsanism Affiliation | [id number] | + + + | Race | Unknown | + + + | Ethnic Group | Unknown | + + + Author + + + | Author | [facility] | | | and [place] | + + + | Organization | [facility] | | | [...] Team Providers + +------+ + | Care Internet Consultant Name | Role | Phone | [...] | | | | hy Lumbar | [address] | [address], | | | | | radiculopath | [place], | [place] [address] | | | | | y Leg pain, | [place] [address] | Phone: | | | | | diffuse, | Phone: | [phone] | | | | | left | [phone] | Fax: | | | | | Paresthesia | Fax: | [phone] | | | | | of left leg | [phone] | | | | | | CRP [...] | | | | hy Lumbar | [address] | [address] | | | | | radiculopath | [place], | [address] | | | | | y Leg pain, | [place] [address] | [place], | | | | | diffuse, | Phone: | [place] [address] | | | | | left | [phone] | Phone: | | | | | Paresthesia | Fax: | [phone] | | | | | of left leg | [phone] | Fax: | | | | | CRP | | [phone] | | | | | elevated Ds [...] | | | | hy CRP | [address] | [place] | | | | | elevated Ds | [place], | [address]ACE | | | | | DNA | [place] [address] | [place], [place] | | | | | antibody | Phone: | [address] | | | | | positive | [phone] | Phone: | | | | | Positive NICKIE | Fax: | [phone] | | | | | | [phone] | Fax: | | | | | (antinuclear | | [phone] | | | | | antibody) | [...] + + | 03/10/ | Office | [facility] | Riccardo Malhotra, | Peripheral | | 2019 | Visit | PHYSIATRY [address] | [address] | polyneuropathy | | | | [address] | [place] | (Primary Dx); Lumbar | | | | [place] | [address] | radiculopathy; Leg | | | | [address] | | pain, diffuse, left; | | | | [phone] | | Paresthesia of left | | [...] fro m the original. Riccardo Malhotra MD [address] [place] [address], [address] [place] [address] FAX: PHYSICAL MEDICINE AND REHABILITATION [...] has no apparent deficits with short or fpc memory. The cranial nerves appear grossly intact. [...] most likely due to an autoimmune disease. Aaron Latham should be evaluated with neurology, a referral will be sent to [facility], based on his NCS results. We [...] rheumatology referral has been sent t o [facility] under the classification of urgent. We [...] work toward weight loss. We discussed that [facility] indicates that weight loss is the most powerful treatment for back pain. 15. Today we discussed the possibility of going to see a neurosurgeon to look more into his lumbar radiculopathy. A referral has been sent to [facility] for a neurosurgeon consultation to jazmine martin at Aaron Latham's lower back to evaluate and offer advise as to how to proceed [facility]. 15. Aaron Latham is advised that [...] [place] | | | | | | [address] | | | | | | | [...]
--- OUTSIDE RECORDS SUMMARY | ~2019-12-21 | XMS | Encounter Summary ---
Demographics + + + | Address | [address] [address] | | | [place] [address] | + + + | Home Phone | | + + + | Preferred Language | Unknown | + + + | Marital Status | Single | + + + | Evangelical Affiliation | 1077 | + + + | Race | Unknown | + + + | Ethnic Group | Unknown | + + + Author + + + | Author | [facility] | | | and [place] | + + + | Organization | [facility] | | | [...] Team Providers + +------+ + | Care Pipe Layer Helper Name | Role | Phone | + [...] | | | | | | | [phone] | | | | | | | Fax: | | | | | | | [phone] | | +--------+ + + + + [...] | | | neoplasm of | | [phone] | | | | | sigmoid | | Fax: | | | | | colon (HCC) | | [phone] | | | | | [C18.7] | | | | | | | Procedures | | | | | | | TX PART | | | | | | [...] + + | 08/16/ | Hospital | [facility] | Mehul Kinsey, | Surgery follow-up | | 2018 - | Encounter | [facility] | [address] | (Primary Dx) | | | | SURGICAL [address] | [place] | | | 08/23/ | | [place] | [phone] | | | 2018 | | [address] | | | | | | [phone] | | | +--------+ + + + [...] documented as of this encounter Discharge Summaries eMhul Kinsey MD - 08/22/2017 6:48 AM PSTFormatting [...] Electronically signed by: Oumou Kinsey, 08/22/2017 6:48 [facility] documented in this encounter Discharge Instructions Instructions Gretel Peña RN - 08/23/2017 [facility] Patient Belongings Aaron Latham 1960 Valuables Dentures: None Vision - Corrective Lenses: None Hearing Aid: None Jewelry: None Clothing: Pants, Shirt, Footwear ( Duffel/CPAP/CANE/Hospital provided bag with clothing sen t to PACU pt. storage bins) Other Valuables: CPAP/BiPAP, Secured on Unit Other Valuables: None Home Medications: None Patient Signature: Clinician/Senior Associate Signature: Incision Care: Abdomen Dressing your incision [...] by your healthcare provider Date Last Reviewed: 07/12/[id number] [facility] [address]. [address] [place] [address], [place] [address]. All righ ts reserved. This information is [...] You may c ough up blood. 2015 [employer] All illustrations and images included in CareNotes a re the copyrighted property of [employer] or [employer]. documented in this encounter Medications at Time [...] 08/23/17 0708/23/17 07 - 08/24/17 0700 Shift 0498-0688 5335-0204 24 Hour Total 8952-0566 8997-7122 24 Hour Total I N T A [...] they do not service the area in [place] where patient lives. Called [facility] in [place]. Made referral. They will verify insurance and call back hopefully in am. Spoke with pt and his mother Toby. Transport difficulties for discharge today, but their fr iend should be at [facility] at 1000 08/23. 18 4:26 PM [...] with her in her mobile home in [place], [place]. She is agreeable to home health and after review of choice s, chose [facility]. Referral made to [facility] by voicemail and fa x. Will await response from them on whether they can follow; would need to call them when pt d/c's but otherwise they can follow in [facility]. Pt will have a friend pick [...] 08/20/17 0708/20/17 07 - 08/21/17 0700 Shift 5004-3780 1996-0380 24 Hour Total 2061-1142 3633-1803 24 Hour Total I N T A [...] data: No results found. Eda Marrero V, DIVER TENDER - 08/20/2017 4:20 AM PSTPt refused [...] 0700 08/19/17 07 - 08/20/17 0700 Shift 2465-0124 1179-0994 24 Hour Total 9068-3883 6688-3640 24 Hour Total I N T A [...] 1400 (8.9) 2675 (17) 4075 (26) NET -528 -5746 -7461 Weight (kg) 156.9 156.9 156.9 156.9 156.9 [...] - 08/18/17 0708/18/17700 - 08/19/17 07 Shift 7160-1798 3083-3936 24 Hour Total 7146-3387 1058-6174 24 Hour Total I N T A [...] - 08/17/17 0708/17/17700 - 08/18/17 07 Shift 1274-4199 24 Hour Total 4221-4718 6052-1273 24 Hour Total I N T A [...] U T P U T Urine (mL/kg/hr) 036 783 9429 (0.7) 1300 Blood 150 Shift Total (mL/kg) [...] | | | | | [place] | | | | | | [address] | | | | | | | [...] | | | | | PST | ([facility]) | | + +--------+ + + + [...] + + | [facility] | [address] | [place] [address] | | | [facility] | | | | | LABORATORY [...] + | [facility] | [address] | [place] [address] | | | [facility] | [...] + + | Glucose | 149 (H)Comment: Nepalese | 65 - 99 mg/dL | [facility] | | | | Diabetes Association | [...] + + | [facility] | [address] | [place] [address] | | | [facility] | | | | | LABORATORY | [...] Completed: 08/20/2017 Physician: Mehul KINSEY Copy to: [facility] | | DIAGNOSIS: Colon, sigmoid, segmental [...] | segment is further opened to reveal rmairez-brown, wrinkled and | | | glistening mucosa [...] cm to 0.5 cm in greatest dimension. Grain Grader | | | sections are submitted as [...] the pathologic diagnosis. A: | | | [id number], 87498, 71136, 12164, 88529(e) | | | PROCEDURES/ADDENDA SPECIAL STAINS DIAGNOSIS: [...] developed and their performance characteristics determined by [facility]. This test is used for clinical | | | purposes. It should not be regarded as investigational or for | | | research. [facility] is certified under the Clinical | | | Laboratory Improvement Amendments of 1988 (CLIA) as qualified to | | | perform high complexity clinical laboratory testing. Comment: | | | Breast predictive markers have not been validated on decalcified | | | specimens. Bladimir Staley MD Testing performed | | | at: [facility] | | | Michelle Arredondo, Director [address] [place] [address] [place] [address] | | | [address] | | + + + + + + + + | Performing | Address | City/State/Zipcode | Phone Number | | Organization | | | | + + + + + | [facility] | [address] | [place] [address] | | | [facility] | | | | | LABORATORY [...] + + | Glucose | 113 (H)Comment: Nepalese | 65 - 99 mg/dL | [facility] [...] + + | [facility] | [address] | [place] [address] | | | [facility] | | | | | LABORATORY | [...] + | [facility] | [address] | [place] [address] | | | [facility] | [...] + | [facility] | [address] | [place] [address] | | | [facility] | | | | | LABORATORY | [...] + + | [facility] | [address] | [place] [address] | | | [facility] | [...] | t Upper | | Units, Subcutaneous, INFORMATION TECHNOLOGY ADVISOR, | | AM PST | | | [...] | | | | (DILAUDID) 1 mg/mL AVIONICS SUPERVISOR | | 18 8:26 | | | | | Intravenous, CONTINUOUS, Starting | | AM PST | | | | | 08/16/17 at 1530, for adult | | | | | | | patients 65 years and older OR | | | | | | | risk of sleep apnea, Loading | | | | | | | Dose(mg): 0, Starting AVIONICS SUPERVISOR | | | | | | | Dose(mg): 0.1, Incremental | | | | | | | Increase AVIONICS SUPERVISOR Dose(mg): 0.1, | | | | | | | Maximum AVIONICS SUPERVISOR Dose(mg): 0.2, | | | | | [...] policy and contact | | | provider it service continuity supervisor, | | + +---+ | | | [...]
--- OUTSIDE RECORDS SUMMARY | ~2019-12-21 | XMS | Encounter Summary ---
Demographics + + + | Address | [address] [address] | | | [place] [address] | + + + | Home Phone | | + + + | Preferred Language | Unknown | + + + | Marital Status | Single | + + + | Nondenominational Affiliation | 1077 | + + + [...] Providers + +------+ + | Care Senior Statistical Programmer Name | Role | Phone | + +------+ + | Sarah Carroll MD | PCP | | + +------+ + Encounter Details +--------+ + + + + | Date | Type | Department | Care Team | Description | +--------+ + + + + | 01/02/ | Orders Only | [facility] | Jewel Ulloa MD | | | 2019 | | NEPRHOLOGY [place] | [address] | | | | | [address] | [address] [place], [place] | | | | | [address] [place], [place] | [address] | | | | | [address] | | | | | | [phone] | | | +--------+ + + + [...] [place] | | | | | | [address] | | | | | | | | +--------+---------+ + + + documented as of this encounter Procedures + +--------+ + + + | Procedure Name | Priori | Date/Time | Associated Diagnosis | Comments | | | ty | | | | + +--------+ + + + | PROTEIN/CREATININE | Routin | 01/02/2019 | | Results for this | | RATIO, URINE | e | 10:59 AM | | procedure are in the | | | | PDT | | results section. | + +--------+ + + + | RENAL FUNCTION PANEL | Routin | 01/02/2019 | | Results for this | | | e | 10:59 AM | | procedure are in the | | | | PDT | | results section. | + +--------+ + + + documented in this encounter Results Protein/Creatinine Ratio, Urine (01/02/2019 10:59 AM PDT) + + + + + + | Component | Value | Ref Range | Performed | Pathologist | | | | | At | Signature | + + + + + + | Protein/Cre | 332.4 (A) | 0 - 150 | EXTERNAL | | | at Ratio | | | LAB | | + + + + + + + + | Specimen | + + | Urine specimen | | (specimen) | + + + +---------+ + + | Performing | Address | City/State/Zipcode | Phone Number | | Organization | | | | + +---------+ + + | EXTERNAL LAB | | | | + +---------+ + + Renal Function Panel (01/02/2019 10:59 AM PDT) + + + + + + | Component | Value | Ref Range | Performed | Pathologist | | | | | At | Signature | + + + + + + | Glucose, | 105 (A) | 70 - 100 mg/dL | EXTERNAL | | | Fasting | | | LAB | | + + + + + + | BUN | 25 (A) | 6 - 23 mg/dL | EXTERNAL | | | | | | LAB | | + + + + + + | Creatinine | 1.93 (A) | 0.70 - 1.33 | EXTERNAL | | | | | mg/dL | LAB | | + + + + + + | PHOSPHORUS | 2.6 | 2.5 - 5.0 mg/dL | EXTERNAL | | | | | | LAB | | + + + + + + | Albumin | 3.8 | 3.5 - 5.0 | EXTERNAL | | | | | | LAB | | + + + + + + | Na | 138 | 132 - 143 | EXTERNAL | | | | | mmol/L | LAB | | + + + + + + | K | 4.3 | 3.6 - 5.1 | EXTERNAL | | | | | mmol/L | LAB | | + + + + + + | Cl | 105 | 95 - 112 mmol/L | EXTERNAL | | | | | | LAB | | + + + + + + | CO2 | 24 | 19 - 31 mmol/L | EXTERNAL | | | | | | LAB | | + + + + + + | Anion Gap | 13.3 | 7 - 21 mmol/L | EXTERNAL | | | | | | LAB | | + + + + + + | eGFR if not | | | EXTERNAL | | | | | | LAB | | | GHANAIAN | | | | | + + + + + + | Phosphorus, | | | EXTERNAL | | | Inorganic | | | LAB | | + + + + + + | BUN/Creatin | 13.0 | 6.0 - 28.6 | EXTERNAL | | | ine Ratio | | | LAB | | + + + + + + | Calcium | 8.7 | 8.5 - 10.3 | EXTERNAL | | | | | mg/dL | LAB | | + + + + + + | Estimated | 36 (A) | 60 - 140 mg/dL | [...]
--- OUTSIDE RECORDS SUMMARY | ~2019-12-21 | XMS | Clinical Summary ---
Demographics + + + | Address | [address] [address] | | | [place] [address] | + + + | Home Phone | | + + + | Preferred Language | Unknown | + + + | Marital Status | Single | + + + | Mormon Affiliation | 1077 | + + + | Race | Unknown | + + + | Ethnic Group | Unknown | + + + Author + + + | Author | [employer] (Historical as of | | | 03-28-19) | + + + | Organization | [facility] [employer] (Historical as of | | | 03-28-19) | + + + | Address | Unknown | + + + | Phone | Unavailable | + + + Support + + + + + | Name | Relationship | Address | Phone | + + + + + | Lily Latham | ECON | [address] | | | [place] | | [place], | | | | | [place] [address] | | + + + + + Care Team Providers + +------+ + | Care Caustic Plant Worker Name | Role | Phone | + +------+ + | Sarah Carroll MD | PP | Unavailable | + +------+ + Allergies No Known Allergies Current Medications + + +--------+---------+------+------+-------+ | Prescription | Sig. | Disp. | Refills | Star | End | Statu | | | | | | t | Date | s | | | | | | Date | | | + + +--------+---------+------+------+-------+ | cyanocobalamin | Take 1,000 mcg by | | | | | Activ | | (VITAMIN B-12) 1000 | mouth daily. | | | | | e | | MCG tablet | | | | | | | + + +--------+---------+------+------+-------+ | Cholecalciferol | Take 2,000 Units by | | | | | Activ | | 2000 UNITS CAPS | mouth daily. | | | | | e | + + +--------+---------+------+------+-------+ | hydrALAZINE | Take 1 tablet by | 90 | 2 | 09/2 | | Activ | | (APRESOLINE) 50 MG | mouth 3 (three) | tablet | | 9/20 | | e | | tablet | times daily. | | | 16 | | | + + +--------+---------+------+------+-------+ | atorvastatin | Take 1 tablet by | 30 | 11 | 07/3 | | Activ | | (LIPITOR) 80 MG | mouth nightly. | tablet | | 1/20 | | e | | tablet | | | | 17 | | | + + +--------+---------+------+------+-------+ | carvedilol (COREG) | Take 6.25 mg by | | | | | Activ | | 12.5 MG tablet | mouth daily. | | | | | e | + + +--------+---------+------+------+-------+ | spironolactone | Take 50 mg by mouth | | | | | Activ | | (ALDACTONE) 50 MG | daily. | | | | | e | | tablet | | | | | | | + + +--------+---------+------+------+-------+ | warfarin | Take 5 mg by mouth | | | | | Activ | | (COUMADIN) 5 MG | daily. | | | | | e | | tablet | | | | | | | + + +--------+---------+------+------+-------+ | magnesium oxide | Take 400 mg by mouth | | | | | Activ | | (MAG-OX) 400 MG | daily. | | | | | e | | tablet | | | | | | | + + +--------+---------+------+------+-------+ | torsemide | Take 20 mg by mouth | | | | | Activ | | (DEMADEX) 20 MG | daily. | | | | | e | | tablet | | | | | | | + + +--------+---------+------+------+-------+ | colchicine 0.6 MG | Take 0.6 mg by mouth | | | | | Activ | | tablet | daily. | | | | | e | + + +--------+---------+------+------+-------+ | levothyroxine | Take 1 tablet by | | 0 | 03/0 | | Activ | | (SYNTHROID) 25 MCG | mouth daily. | | | 9/20 | | e | | tablet | | | | 19 | | | + + +--------+---------+------+------+-------+ | FEROSUL 325 (65 | Take 1 tablet by | | 0 | 03/1 | | Activ | | Fe) MG tablet | mouth 3 (three) | | | 3/20 | | e | | | times daily. | | | 19 | | | + + +--------+---------+------+------+-------+ | acetaminophen | Take 500 mg by mouth | | | | | Activ | | (TYLENOL) 500 MG | every 6 (six) hours | | | | | e | | tablet | as needed. | | | | | | + + +--------+---------+------+------+-------+ | allopurinol | Take 1 tablet by | 90 | 3 | 05/2 | | Activ | | (ZYLOPRIM) 300 MG | mouth daily. | tablet | | 20 | | e | | tablet | | | | 19 | | | + + +--------+---------+------+------+-------+ Active Problems + + + | Problem | Noted Date | + + + | DANNY (acute kidney injury) (HCC) | 01/07/2019 | + + + | Hyperuricemia | 01/07/2019 | + + + | History of left nephrectomy | 10/30/2018 | + + + | Angiomyolipoma of left kidney | 10/30/2018 | + + + | Persistent proteinuria | 10/27/2018 | + + + | Class 3 obesity with alveolar hypoventilation without serious | 10/27/2018 | | comorbidity with body mass index (BMI) of 45.0 to 49.9 in adult | | | (HCC) | | + + + | Bilateral leg edema | 07/28/2018 | + + + | Paroxysmal atrial fibrillation (HCC) | 04/17/2018 | + + + | Chronic kidney disease, stage 3 (HCC) | 04/17/2018 | + + + | Renal neoplasm | 04/17/2018 | + + + | History of colon cancer | 04/17/2018 | + + + | Essential hypertension with goal blood pressure less than 130/80 | 01/21/2017 | + + + | Anemia of chronic renal failure, stage 3 (moderate) (HCC) | 01/21/2017 | + + + | Sleep apnea | 01/21/2017 | + + + | Chronic combined systolic and diastolic congestive heart failure | 03/29/2016 | | (HCC) | | + + + + + | Last Assessment & Plan: CHF, LVEF 40-45%. 56yo WM, | | in atrial fibrillation, Hx congestive heart failure. Complains | | of lightheadedness, orthostasis. Remains modestly active, | | continues to have some degree of exertional shortness of breath, | | but despite this, there is no orthopnea or, PND, or significant | | edema, his edema has resolved. Denies any chest pain. He denies | | any new visual disturbances, dysarthria, dysphasia, lateralizing | | signs or symptoms. Currently on warfarin, unaware of any | | significant bleeding or bruising. Tolerating medications. | | Because of his orthostasis, no change in hydralazine (50mg TID). | | Has not completed Lexiscan nuclear perfusion study. He'll | | monitor his blood pressure, and with his blood pressure tracings | | at next visit, because of his orthostasis, we reduced his | | torsemide 10 mg daily.Last Cath: [facility] Echo, 02/16/2016 ([facility]): moderate LVH, global hypokinesis, LVEF 40-45%, | | moderate LAE, moderate CYNTHIA (suspect RVE), mild MR, trace TR, est | | systolic PAP 19-24mmHg.Last Stress Test: naECG, 02/19/2016: Atrial | | flutter with variable conduction, 100bpm, RBBB/LAFB, non-spec | | ST-T changes. | + + + + + | Mixed hyperlipidemia | 03/29/2016 | + + + + + | Last Assessment & Plan: Hyperlipidemia, continue current meds | | at current dose (atorvastatin). Labs anticipated. | + + Resolved Problems + + + + | Problem | Noted | Resolved | | | Date | Date | + + + + | Persistent atrial fibrillation (HCC) | 03/29/20 | | | | 16 | 9 | + + + + + + | Last Assessment & Plan: A fib/flutter, ?duration, CHADS2 | | Score 2 (CHF, HTN), on warfarin, managed by [facility] | | Coumadin clinic. At sometime in the future, consider | | cardioversion. | + + + + + + | Essential hypertension | 03/29/20 | | | | 16 | 8 | + + + + + + | Last Assessment & Plan: Hypertension. Patient complains of | | lightheadedness, possible orthostasis, for now, no change, he'll | | continue the hydralazine to 50mg TID. He will monitor his blood | | pressure, bringing his blood pressure lightheadedness next visit. | + + + + + + | Chronic kidney disease, stage II (mild) | 03/29/20 | | | | 16 | 8 | + + + + + + | Last Assessment & Plan: CKD, Stage 2. Renal function | | improved, ACEI sensitive. | + + Family History + + +------+ + | Medical History | Relation | Name | Comments | + + +------+ + | Cancer | Father | | | + + +------+ + | Diabetes type II | Mother | | | + + +------+ + | Hypertension | Mother | | | + + +------+ + + +------+ + + | Relation | Name | Status | Comments | + +------+ + + | Brother | | Alive | | + +------+ + + | Brother | | Alive | | + +------+ + + | Father | | | | + +------+ + + | Mother | | Alive | | + +------+ + + | Sister | | Alive | | + +------+ + + Social History + +-------+ +--------+------+ [...] on file | | + + + Last Filed Vital Signs + + + + | Vital Sign | Reading | Time Taken | + + + + | Blood Pressure | 142/80 | 02/09/2019 2:50 PM PDT | + + + + | Pulse | 91 | 02/09/2019 2:50 PM PDT | + + + + | Temperature | 36.1 C (97 F) | 10/01/2017 1:07 PM PST | + + + + | Respiratory Rate | 20 | 10/30/2018 1:16 PM PDT | + + + + | Oxygen Saturation | 96% | 02/09/2019 2:50 PM PDT | + + + + | Inhaled Oxygen | - | - | | Concentration | | | + + + + | Weight | 163.7 kg (361 lb) | 02/09/2019 2:50 PM PDT | + + + + | Height | 180.3 cm (5' 11") | 02/09/2019 2:50 PM PDT | + + + + | Body Mass Index | 50.35 | 02/09/2019 2:50 PM PDT | + + + + Plan of Treatment + + + + + | Health Maintenance | Due Date | Last Done | Comments | + + + + + | Vaccine: | | | | | Dtap/Tdap/Td (1 - | 0 | | | | Tdap) | | | | + + + + + | Vaccine: | | | | | Pneumococcal 19-64 | 0 | | | | Highest Risk (1 of 3 | | | | | - PCV13) | | | | + + + + + | Vaccine: Zoster (1 | | | | | of 2) | 1 | | | + + + + + | Vaccine: Influenza | | | | | (Season Ended) | 0 | | | + + + + + | Colon Cancer | | 05/15/2016 (Received Elsewhere) | | | Screening | 6 | | | | (Colonoscopy) | | | | + + + + + Results Not on filefrom Last 3 Months Insurance + +--------+ +------+-------+ + | Payer | Benefi | Subscriber | Type | Phone | Address | | | t Plan | ID | | | | | | / | | | | | | | Group | | | | | + +--------+ +------+-------+ + | MEDICAID | [place] | [id number] | | | [address] | | | N | | | | [place] | | | [place] | | | | [address] | | | [employer] | | | | | + +--------+ +------+-------+ + + +--------+ +--------+ + + | Guarantor Name | Accoun | Relation to | Date | Phone | Billing Address | | | t Type | Patient | of | | | | | | | | | | + +--------+ +--------+ + + | LILY LATHAM | Person | Self [birth year] | Home: | [address] | | | al/Fam | | 1 | [phone] | [address] [place], | | | [place] | | | [phone] | [place] [address] | + +--------+ +--------+ + +
--- OUTSIDE RECORDS SUMMARY | ~2019-12-21 | XMS | Encounter Summary ---
Demographics + + + | Address | [address] | | | [place] [address] | + + + | Home Phone | | + + + | Preferred Language | Unknown | + + + | Marital Status | Single | + + + | Pentecostal Affiliation | LDS | + + + | Race | White | + + + | Ethnic Group | Not or | + + + Author + + + | Author | [facility] | + + + | Organization | [facility] | + + + | Address | Unknown | + + + | Phone | Unavailable | + + + Support + + + + + | Name | Relationship | Address | Phone | + + + + + | Toby Latham | ANNA | [address] | | | | | [place] | | | | | [address] | | + + + + + Care Team Providers + +------+ + | Care Real Estate Developer Name | Role | Phone | [...] | | | | | | [place] | | | | | | | COLONOSCOPY, | | | | | | | FLEX, | | | | | | | W/BIOPSY [place] | | | | | | | | | | | | | | COLONOSCOPY, | | | | | | | YUNI URIBE BY | | | | | | | SNARE | | | | | | | TECHNIQUE | | | | | | | [place] | | | | | | | [...] | | | | | | [place] ANES LWR | | | | | | | INTST NDSC | | | | | | | NOS | | | +--------+--------+ + + + + Encounter Details +--------+ + + + + | Date | Type | Department | Care Team | Description | +--------+ + + + + | 07/01/ | Hospital | Multi-Specialty | Rustpatrice[place], | | | 2019 | Encounter | Procedural Unit | MD Charles [address] | | | | | ([facility]) at [facility] [address] | | | | | Doug Grijalva | [facility] [place] | | | | | Mailcode: [place] | [address] | | | | | [facility] and | [phone] | | | | | [facility], [address] | | | | | | [facility] [place] | | | | | | [address] | | | | | | [phone] | | | +--------+ + + + [...] + + + | Blood Pressure | 101/65 | 07/01/2019 2:15 PM | | | | | PST | | + + + + + | Pulse | 69 | 07/01/2019 2:15 PM | | | | | PST | | + + + + + | Temperature | 37.1 C (98.7 F) | 07/01/2019 9:47 AM | | | | | PST | | + + + + + | Respiratory Rate | 17 | 07/01/2019 1:45 PM | | | | | PST | | + + + + + | Oxygen Saturation | 96% | 07/01/2019 2:15 PM | | | | | PST | | + + + + + | Inhaled Oxygen | - | - | | | Concentration | | | | + + + + + | Weight | 168.7 kg (372 lb) | 07/01/2019 9:47 AM | | | | | PST | | + + + + + | Height | 180.3 cm (5' 11") | 07/01/2019 9:47 AM | | | | | PST | | + + + + + | Body Mass Index | 51.88 | 07/01/2019 9:47 AM | | | | | PST | | + + + + + documented in this encounter Discharge Instructions Instructions Misyt Bonilla RN - 07/01/2019Home Care Instructions after Colonoscopy You may resume [...] Call the endoscopy department toll free ext. [phone] or After business hours or on weekends and holidays call the Hospital Assistant Director Of Public Works toll free [phone] Ext. [phone] or and have the GI doctor dice table person paged. The provider who performed your procedure: Dr. Vasquez Results of your colonoscopy: Large ascending colon polyp removed and sent to the lab. Resul ts will be back in 1 week. Maintain a clear liquid diet today, advance diet as tolerated sherrell orrow. Restart your Coumadin in 3 days on 07/04. Do not take any NSAIDS for 3-4 weeks. Begin taking miralax daily for 1 month to encourage soft bowel movements with no straining. Recommended follow up Colonoscopy: Awaiting pathology results, will need another colonoscop y in 6 months. Follow up Appointments with: Awaiting pathology results, may need referral for surgery. Your primary care provider or referring provider will receive copies of the procedure repor t and all pathology reports with recommendations for treatment if needed. If noted above that biopsies were taken or polyps removed we will receive the results in ap proximately 1 week. If you have not heard from us after 2 weeks please call for your results . documented in this encounter Medications at Time of Discharge + + + +---------+--------+ + | Medication | Sig | Dispensed | Refills | Start | End Date | | | | | | Date | | + + + +---------+--------+ + | allopurinol 300 mg | Take 150 mg by mouth | | 0 | | | | oral tablet | once daily. | | | | | + + + +---------+--------+ + | atorvastatin 80 mg | Take 80 mg by mouth | | 0 | | | | oral tablet | once daily. | | | | | + + + +---------+--------+ + | calcium-vitamin D | Take 1 tablet by | | 0 | | | | 500 mg(1,250mg) -200 | mouth three times | | | | | | unit oral tablet | daily. | | | | | + + + +---------+--------+ + | carvedilol 6.25 mg | Take 6.25 mg by | | 0 | | | | oral tablet | mouth two times | | | | | | | daily. Administer | | | | | | | with food. | | | | | + + + +---------+--------+ + | colchicine 0.6 mg | Take 0.6 mg by mouth | | 0 | | | | oral tablet | two times daily. | | | | | + + + +---------+--------+ + | cyanocobalamin | Inject 1,000 mcg | | 0 | | | | 1,000 mcg/mL | under the skin | | | | | | injection solution | (SUBC) every thirty | | | | | | | days. | | | | | + + + +---------+--------+ + | ferrous sulfate | Take 325 mg by mouth | | 0 | | | | 325 mg (65 mg iron) | once daily. | | | | | | oral tablet | | | | | | + + + +---------+--------+ + | hydrALAZINE 50 mg | Take 50 mg by mouth | | 0 | | | | oral tablet | three times daily. | | | | | + + + +---------+--------+ + | levothyroxine 25 | Take 25 mcg by mouth | | 0 | | | | mcg oral tablet | before breakfast. | | | | | + + + +---------+--------+ + | magnesium oxide | Take 400 mg by mouth | | 0 | | | | 400 mg oral tablet | once daily. | | | | | + + + +---------+--------+ + | torsemide 10 mg | Take 20 mg by mouth | | 0 | | | | oral tablet | once daily. | | | | | + + + +---------+--------+ + | warfarin 5 mg oral | [...] | | | | + + + +---------+--------+ + documented as of this encounter Progress Notes Charles Vasquez MD - 07/01/2019 10:15 AM PST PRE PROCEDURE NOTE: MR# [id number] Subjective: Aaron Latham is a 59 y.o. male who presents today for a GI procedure. Patient History Reviewed Medications reviewed Allergies: Allergies as of 05/20/2019 (No Known Allergies) Pt NPO for MN hrs. ROS: All others negative. Objective: Vital Signs: BP 161/85 | Pulse 74 | Temp 37.1 C (98.7 F) | Resp 19 | Ht 1.803 m (5' 11") | Wt 168.7 kg (372 lb) | SpO2 96% | BMI 51.88 kg/m | BSA 2.91 m Neuro: Patient oriented X3. Mental status clear and intact Mallampati Score: II Neck Neck supple. No adenopathy Respiratory: negative findings: no chest deformities noted, normal diaphragmatic excursion Cardiovascular: peripheral pulses are wnl, no edema Abdomen: nontender, no masses, no organomegaly Impression Patient deemed appropriate candidate for planned procedure and sedation. ASA III Mallapati III Plan Proceed with GI procedure PARQ held and all questions addressed. Consent obtained. See procedure note 07/01/2019 documented in this encounter Plan of Treatment +--------+---------+ + + + | Date | Type | Specialty | Care Team | Description | +--------+---------+ + + + | 01/20/ | Office | Orthopedics | Richard Harvey, | | | 2019 | Visit | | [address] | | | | | | [address] | | | | | | [place], [place] | | | | | | [address] | | | | | | [phone] | | | | | | | | +--------+---------+ + + + documented as of this encounter Procedures + +--------+ + + + | Procedure Name | Priori | Date/Time | Associated Diagnosis | Comments | | | ty | | | | + +--------+ + + + | SURGICAL PATHOLOGY | Routin | 07/01/2019 | | Results for this | | | e | 12:46 PM | | procedure are in the | | | | PST | | results section. | + +--------+ + + + | COLONOSCOPY | Routin | 07/01/2019 | Polyp of colon, | Results for this | | | e | 10:08 AM | villous adenoma | procedure are in the | | | | PST | | results section. | + +--------+ + + + documented in this encounter Results SURGICAL PATHOLOGY (07/01/2019 12:46 PM PST) + + + + + + | Component | Value | Ref Range | Performed | Pathologist | | | | | At | Signature | + + + + + + | Clinical | rule out malignancy | | [facility] | | | History | | | LABORATORY | | | | | | SERVICES, | | | | | | [facility] | | | | [facility] + | | | | | | [facility] | | + + + + + + | Final | Ascending Colon, polyp, | | [facility] | Electronically | | Pathologic | EMR: Tubulovillous | | DEPARTMENT | signed by | | Diagnosis | adenoma Negative for | | OF | Kee | | | high grade dysplasia or | | PATHOLOGY | Arsen on | | | carcinomaShirley Snow, | | | 07/03/2019 at | | | - Surgical Pathology | | | 10:15 AM | | | Vinh | | | | | | MD Arsen, PhD | | | | | | | | | | | | PathologistPathology, | | | | | | [facility] | | | | | | [facility] electronic | | | | | | signature indicates that | | | | | | I have personally | | | | | | reviewed all diagnostic | | | | | | slides, the gross and/or | | | | | | microscopic portion of | | | | | | this report and | | | | | | formulated the final | | | | | | diagnosis. | | | | + + + + + + | Gross | Received is one specimen | | [facility] | | | Description | in a formalin container | | LABORATORY | | | | labeled with the | | SERVICES, | | | | patient's name (initials | | [facility] | | | | [facility]) and medical record | | HEALTH + | | | | number [id number].A. | | HEALING | | | | Ascending Colon, polyp: | | | | | | Received labeled "ASCCOL | | | | | | polyp.-A" is a 4.1 x | | | | | | 3.1 x 1.2 cm aggregate | | | | | | of multiple pink-ramirez, | | | | | | granular soft tissue | | | | | | fragments with petechial | | | | | | hemorrhaging that range | | | | | | from 0.1 to 1.7 cm in | | | | | | greatest dimension. The | | | | | | larger soft tissue | | | | | | fragments with | | | | | | identifiable resection | | | | | | margins are | | | | | | differentially inked, | | | | | | serially sectioned and | | | | | | entirely submitted. The | | | | | | remainder of the small | | | | | | fragments are submitted | | | | | | entirely into a biopsy | | | | | | bag in cassette A1.A1, | | | | | | smaller soft tissue | | | | | | fragments entirely in a | | | | | | biopsy bagA2, 1 polyp | | | | | | serially sectioned | | | | | | (black)A3, 2 polyps, | | | | | | each bisected (blue and | | | | | | purple)A4, 2 polyps, | | | | | | serially sectioned | | | | | | (black and purple)A5, 2 | | | | | | polyps, serially | | | | | | sectioned (blue and | | | | | | green)A6, 2 polyps, | | | | | | serially sectioned | | | | | | (green and purple)(MED) | | | | | | [facility] | | | | + + + + + + | Ancillary | Analyte specific | | [facility] | | | Information | reagents are used in | | LABORATORY | | | | many laboratory tests | | SERVICES, | | | | necessary for standard | | [facility] | | | | medical care. This test | | HEALTH + | | | | was developed and its | | HEALING | | | | performance | | | | | | characteristics | | | | | | determined by [facility] | | | | | | laboratories. It has not | | | | | | been cleared or | | | | | | approved by the US Food | | | | | | and Drug Administration | | | | | | (FDA). FDA does not | | | | | | require this test to go | | | | | | through premarket FDA | | | | | | review. This test is | | | | | | used for clinical | | | | | | purposes. It should not | | | | | | be regarded as | | | | | | investigational or for | | | | | | research. This | | | | | | laboratory is certified | | | | | | under the Clinical | | | | | | Laboratory Improvement | | | | | | Amendments (CLIA) as | | | | | | qualified to perform | | | | | | high complexity clinical | | | | | | laboratory testing. If | | | | | | immunohistochemical | | | | | | analysis (IHC) was | | | | | | performed concurrently | | | | | | with flow cytometry, the | | | | | | IHC was done to allow | | | | | | assessment of | | | | | | immunoarchitecture, | | | | | | which is not supplied by | | | | | | flow cytometry. Flow | | | | | | cytometry enables better | | | | | | assessment of clonality | | | | | | and antigen aberrancy | | | | | | than IHC. Appropriate | | | | | | positive controls and/or | | | | | | negative controls were | | | | | | used for all stains, | | | | | | including | | | | | | immunohistochemical | | | | | | stains, special stains, | | | | | | and in situ | | | | | | hybridization, and these | | | | | | reacted appropriately. | | | | + + + + + + + + | Specimen | + + | Tissue - Ascending | | Colon | + + + + + + + | Performing | Address | City/State/Zipcode | Phone Number | | Organization | | | | + + + + + | [facility] | [address] | [place] [address] | | | PATHOLOGY | [address] | | | + + + + + | [facility] | [address] | [place] [address] | | | SERVICES, [facility] | | | | | HE[facility] + HEALING | | | | + + + + + COLONOSCOPY (07/01/2019 10:08 AM PST) + + | Specimen | + + | | + + + + + | Narrative | Performed At | + + + | MRN: | [facility] | | [id number] Date: 07/01/2019Patient Name: Aaron Justin #: | ENDOSCOPY | | [id number] of : 1960SN: [id number] Type: | | | AmbulatoryRoom: Endo 5Procedure: | | | ColonoscopyIndications: Therapeutic procedure for known | | | colon polypPatient Profile: This is a 59 year old male. Refer to | | | note in patient chart for | | | documentation of history and physical.Providers: CHARLES | | | MD PEDRO (Doctor), CATARINA SOLIMAN RN | | | (Nurse), NGHIA YBARRA (Customs Entry Writer)Referring MD: CHARLES | | | MASON VASQUEZequesting Provider: Medicines: Monitored | | | Anesthesia CareComplications: No immediate | | | complications.Procedure: Pre-Anesthesia Assessment: | | | - Airway Examination: Mallampati Class III | | | (part of the uvula and soft palate | | | visualized). - ASA Grade Assessment: III | | | - A patient with severe systemic | [...] the procedure. The Olympus | | | [id number] Colonoscope #[id number] was introduced | | | through the anus and advanced to the | | | cecum, identified by appendiceal | | | orifice and ileocecal valve. The colonoscopy | | | was technically difficult and complex due to abnormal | | | anatomy. The patient tolerated the procedure | | | poorly due to the patient's discomfort | | | during the procedure. The quality of | | | the bowel preparation was adequate. The | | | appendiceal orifice was photographed.Estimated Blood Loss: | | | Estimated blood loss was minimal.Findings: The perianal and | | | digital rectal examinations were normal. A 3 cm x 2 cm polyp was | | | found in the ascending colon. The polyp was flat and | | | multi-lobulated. Polyp was large and clamshell over fold. Pit | | | pattern was maintained on proximal margin. Preparations were made for | | | endoscopic mucosal resection (EMR). Saline with methylene blue | | | was injected with adequate initially lift of the lesion from | | | the muscularis propria. Cap and snare mucosal resection was | | | performed in piecemeal fashion. A 20 x 30 mm area was resected. | | | Six pieces were resected in total. Resection was nearly | | | complete (there was a 5-6 mm portion of the distal polyp that | | | did not lift well - concering for submucosal invasion). APC of | | | this residual polypoid tissue was performed. APC of EMR edges | | | was also performed. One visible vessel underwent coag graspers | | | for hemostasis. There was no bleeding at the end of the procedure. To | | | close a defect after mucosal resection, seven hemostatic clips | | | were successfully placed (MR conditional). There was no | | | bleeding at the end of the procedure. The pathology specimen | | | was placed into Bottle Number 1. Estimated blood loss was | | | minimal.Moderate Sedation: patient given MACImpression: | | | - Large 3 cm flat, ascending colon polyp with possible | | | submucosal invasion (given poor lift of distal | | | margin) s/p complex EMR with clip | | | closure.Recommendation: - Repeat colonoscopy in 6 months to | | | review the polypectomy site. | | | - Patient's sedation for a repeat study will | | | require Anesthesia staff assistance | | | (general anesthesia). - For future | | | colonoscopy the patient will require an | | | extended preparation (2 day-SPLIT prep). If there are | | | any questions, please contact the lawn mower mechanic. | | | - Clear liquid diet today. | | | - Miralax 1 capful (17 grams) in 8 ounces of water | | | PO BID for 1 month. | | | - Resume Coumadin (warfarin) at prior dose in 2 days. | | | Refer to referring physician for further | | | adjustment of therapy. | | | - No ibuprofen, naproxen, or other non-steroidal | | | anti-inflammatory drugs for 3 weeks after | | | polyp removal. - Await pathology | | | results. May require referral to | | | colorectal surgery for partial colectomy if path shows | | | invasive carcinoma.CHARLES VASQUEZ MD07/01/2019 | | | 12:54:08 PMNumber of Addenda: 0Note Initiated On: 07/01/2019 10:08 AM | | |07/01/2019 12:54:08 PM | | |Number of Addenda: 0 | | |Note Initiated On: 07/01/2019 10:08 AM | | + + + + +---------+ + + | Performing | Address | City/State/Zipcode | Phone Number | | Organization | | | | + +---------+ + + | [facility] | | | | + +---------+ + + documented in this encounter Visit Diagnoses + + | Diagnosis | + + | History of colon cancer - Primary Personal history of malignant neoplasm of large | | intestine | + + | Polyp of colon, villous adenoma Benign neoplasm of colon | + + documented in this encounter Administered Medications + +--------+---------+------+------+------+ | Medication Order | MAR | Action | Dose | Rate | Site | | | Action | Date | | | | + +--------+---------+------+------+------+ + +---+ | acetaminophen (TYLENOL) tablet | | | 650 mg 650 mg, oral, | | | POSTPROCEDURE PRN, 1 dose, | | | Starting Sat07/01/19 at 1053, | | | Until Sat07/01/19 at 2105, mild | | | or greater pain while in Phase 1 | | + +---+ | | | + +---+ + +-------+ +---+---+---+ | albuterol 0.083% | Given | 07/01/20 | | | | | (PROVENTILVENTOLIN) 2.5 mg /3 mL | | 19 12:50 | | | | | (0.083 %) nebulizer solution 1 | | PM PST | | | | | dose, Starting Sat07/01/19 at | | | | | | | 1238, Until Sat07/01/19 at 1250 | | | | | | + +-------+ +---+---+---+ + +---+ | | | + +---+ | fentaNYL (SUBLIMAZE) injection | | | 25 mcg 25 mcg, intravenous, | | | POSTPROCEDURE PRN, 8 doses, | | | Starting Sat07/01/19 at 1053, | | | Until Sat07/01/19 at 2105, | | | severe pain while in Phase I | | | Recovery | | + +---+ | | | + +---+ | lidocaine viscous (XYLOCAINE | | | VISCOUS) 2 % mucosal solution 15 | | | mL 15 mL, oral, INTRAPROCEDURE | | | PRN, Starting Sat07/01/19 at | | | 0922, Until Sat07/01/19 at 2104, | | | sore oropharynx | | + +---+ | | | + +---+ | naloxone (NARCAN) injection | | | intravenous, POSTPROCEDURE PRN, | | | Starting Sat07/01/19 at 1022, | | | Until Sat07/01/19 at 2105, | | | hypopnea | | + +---+ | | | + +---+ | ondansetron (ZOFRAN) injection | | | 4 mg 4 mg, intravenous, | | | POSTPROCEDURE PRN, 1 dose, | | | Starting Sat07/01/19 at 1053, | | | Until Sat07/01/19 at 2105, | | | nausea/vomiting (greater than 6 | | | hours post-operatively) | | + +---+ | | | + +---+ | oxyCODONE (immediate release) | | | (ROXICODONE) tablet 5-10 mg 5-10 | | | mg, oral, POSTPROCEDURE PRN, 1 | | | dose, Starting Sat07/01/19 at | | | 1053, Until Sat07/01/19 at 2105, | | | moderate pain while in Phase 1 | | | recovery | | + +---+ | | | + +---+ | PHENYLEPHrine 100 mcg/mL IV | | | syringe 50 mcg, intravenous, | | | POSTPROCEDURE PRN, 4 doses, | | | Starting Sat07/01/19 at 1055, | | | Until Sat07/01/19 at 2105, | | | systolic blood pressure less than | | | 90 mmHg refractory to IV fluids. | | + +---+ | | | + +---+ | promethazine (PHENERGAN) | | | injection 6.25-12.5 mg 6.25-12.5 | | | mg, intravenous, POSTPROCEDURE | | | PRN, 1 dose, Starting Wed | | | 07/01/19 at 1053, Until Wed | | | 07/01/19 at 2105, | | | nausea/vomiting, 1st line | | + +---+ | | | + +---+ | simethicone (MYLICON) | | | suspension 3.333 mg 3.333 mg | | | (rounded from 3.3333 mg = 1 | | | drop), oral, INTRAPROCEDURE PRN, | | | Starting Sat07/01/19 at 0922, | | | Until Sat07/01/19 at 2105, gas | | | bubbles in endoscope | | + +---+ | | | + +---+ + + + +---+---+---+ | sodium chloride 0.9 % (NS) IV | given by | 07/01/20 | | | | | infusion 10 mL/hr, intravenous, | | 19 12:12 | | | | | CONTINUOUS, Starting Sat07/01/19 | anesthes | PM PST | | [...] | | | | + + +---+---+---+ + +---+ | | | + +---+ | sodium chloride 0.9 % (NS) IV | | | infusion 500 mL, intravenous, | | | POSTPROCEDURE PRN, 1 dose, | | | Starting 07/01/19 at 1055, | | | Until Sat07/01/19 at 2105, | | | systolic blood pressure less than | | | 90 mmHg. 1st line | | + +---+ | | | + +---+ documented in this encounter
--- OUTSIDE RECORDS SUMMARY | ~2019-12-21 | XMS | Encounter Summary ---
Demographics + + + | Address | [address] [address] | | | [place] [address] | + + + | Home Phone | | + + + | Preferred Language | Unknown | + + + | Marital Status | Single | + + + | Moravian Affiliation | 1077 | + + + | Race | Unknown | + + + | Ethnic Group | Unknown | + + + Author + + + | Author | [facility] | | | and [place] | + + + | Organization | [facility] | | | [...] Team Providers + +------+ + | Care Strip Presser Name | Role | Phone | + +------+ + | Sarah Carroll MD | PCP | | + +------+ + Reason for Referral Evaluate & Treat (Routine) + + + + + + + | Status | Reason | Specialty | Diagnoses / | Referred By | Referred To | | | | | Procedures | Contact | Contact | + + + + + + + | Authorized | Specialty | Neurosurgery | Diagnoses | [place] | Mundo Garcia | | | Services | | Spinal | Riccardo Mcgill MD | Neurosurgery | | | Required | | stenosis of | [address] | | | | | lumbar | [address] | [address] | | | | | region with | [place], | [place], | | | | | neurogenic | [place] [address] | [place] [address] | | | | | claudication | Phone: | Phone: | | | | | Lumbar | [phone] | [phone] | | | | | radiculopath | Fax: | Fax: | | | | | y Bilateral | [phone] | [phone] | | | | | foot-drop | | | + + + + + + + Reason for Visit +--------+ + | Reason | Comments | +--------+ + | Other | | +--------+ + Encounter Details +--------+ + + + + | Date | Type | Department | Care Team | Description | +--------+ + + + + | 09/14/ | Telephone | [facility] [place] | MalhotraRiccardo, | Other | | 2019 | | PHYSIATRY [address] | MD [address] | | | | | [address] | [place], [place] | | | | | [place], [place] | [address] | | | | | [address] | | | | | | [phone] | | | +--------+ + + + [...] [place] | | | | | | [address] | | | | | | | | +--------+---------+ + + + + + +--------+ + + | Name | Type | Priori | Associated Diagnoses | Order Schedule | | | | ty | | | + + +--------+ + + | * [facility] [place] | Outpatient | Routin | Spinal stenosis of | Ordered: 09/14/2019 | | Neurosurgery - AMB | Referral | e | lumbar region with | | | Referral | | | neurogenic | | | | | | claudication Lumbar | | | | | | radiculopathy | | | | | | Bilateral foot-drop | | + + +--------+ + + documented as of this encounter Visit Diagnoses + + | Diagnosis | + + | Spinal stenosis of lumbar region with neurogenic claudication - Primary Spinal | | stenosis, lumbar region, with neurogenic claudication | + + | Lumbar radiculopathy Thoracic or lumbosacral neuritis or radiculitis, unspecified | + + | Bilateral foot-drop Other acquired deformity of ankle and foot | + + documented in this encounter"
--- OUTSIDE RECORDS SUMMARY | ~2019-12-21 | XMS | Encounter Summary ---
Demographics + + + | Address | [address] [address] | | | [place] [address] | + + + | Home Phone | | + + + | Preferred Language | Unknown | + + + | Marital Status | Single | + + + | Buddhist Affiliation | 1077 | + + + | Race | Unknown | + + + | Ethnic Group | Unknown | + + + Author + + + | Author | [facility] | | | and [place] | + + + | Organization | [facility] | | | [...] Team Providers + +------+ + | Care Civil Drafter Name | Role | Phone | + +------+ + | Sarah Carroll MD | PCP | | + +------+ + Encounter Details +--------+ + + + + | Date | Type | Department | Care Team | Description | +--------+ + + + + | 04/30/ | Orders Only | [facility] | Patrice Cross MD | Renal mass (Primary | | 2018 | | [address] [place] | [address] | Dx) | | | | [address] | [address] | | | | | [address] | [id number] | | | | | [phone] | | | +--------+ + + + [...] [place] | | | | | | [address] | | | | | | | | +--------+---------+ + + + + +---------+--------+ + + | Name | Type | Priori | Associated Diagnoses | Order Schedule | | | | ty | | | + +---------+--------+ + + | US Renal Complete | Imaging | Routin | Renal mass | Expected: | | | | e | | 05/01/2018, Expires: | | | | | | 04/30/2019 | + +---------+--------+ + + documented as of this encounter Visit Diagnoses + + | Diagnosis | + + | Renal mass - Primary Unspecified disorder of kidney and ureter | + + documented in this encounter"
--- OUTSIDE RECORDS SUMMARY | ~2019-12-21 | XMS | Encounter Summary ---
Demographics + + + | Address | [address] | | | [place] [address] | + + + | Home Phone | | + + + | Preferred Language | Unknown | + + + | Marital Status | Single | + + + | Jew Affiliation | LDS | + + + [...] [place] | | | | | [id number] | | + + + + + Care Team Providers + +------+ + | Care Chief Estimator Name | Role | Phone | + +------+ + | Sarah Gutierrez MD | PCP | | + +------+ [...] + + + + | 07/10/ | Hospital | [facility] [address] | [place]ohannes Nagy, | | | 2019 - | Encounter | [address] | ,[facility] [address] | | | | | [place], [place] | [address] | | | 07/14/ | | [address] | [place], [place] | | | 2018 | | [phone] | [address] | | | | | | [phone] | | | | | | | | | | | | Kath Silva MD | | | | | | [address] | | | | | | [place] [place], | | | | | | [place] [address] | | | | | | [phone] | | | | | | | | | | | | Bety Jameson MD | | | | | | [address] | | | | | | [place], | | | | | | [place] [address] | | | | | | [phone] | | | | | | | [...] + + + | Blood Pressure | 161/79 | 07/14/2019 8:31 AM | | | | | PST | | + + + + + | Pulse | 66 | 07/14/2019 8:31 AM | | | | | PST | | + + + + + | Temperature | 36.6 C (97.9 F) | 07/14/2019 8:31 AM | | | | | PST | | + + + + + | Respiratory Rate | 18 | 07/14/2019 8:31 AM | | | | | PST | | + + + + + | Oxygen Saturation | 97% | 07/14/2019 8:31 AM | | | | | PST | | + + + + + | Inhaled Oxygen | - | - | | | Concentration | | | | + + + + + | Weight | 168.7 kg (372 lb) | 07/10/2019 11:14 AM | | | | | PST | | + + + + + | Height | 180.3 cm (5' 11") | 07/10/2019 11:14 AM | | | | | PST | | + + + + + | Body Mass Index | 51.88 | 07/10/2019 11:14 AM | | | | | PST | | + + + + + documented in this encounter Functional Status + + + + | Functional Status | Response | Date of Assessment | + + + + | Because of a physical, mental, or emotional | No | 07/12/2019 | | condition, do you have serious difficulty | | | | doing errands alone such as visiting the | | | | doctor? | | | + + + + + + + + | Cognitive Status | Response | Date of Assessment | + + + + | Because of a physical, mental, or emotional | No | 07/12/2019 | | condition, do you have serious difficulty | | | | concentrating, remembering, or making | | | | decisions? (5 years old or older) | | | + + + + documented as of this encounter Discharge Summaries Bety Jameson MD - 07/14/2019 8:27 AM PST [facility] Discharge Summary Discharging Provider: BETY JAMESON MD Discharging Attending Physician: Bety Jameson MD PCP: Sarah Gutierrez MD Admission Date: 07/10/2019 Discharge Date: 07/14/2019 Hospital Stay: 4 day(s) Diagnosis: Principal Diagnosis: Post-polypectomy GI bleeding Additional Diagnoses: Epistaxis Atrial fibrillation DANNY on CKD stage IV Chronic diastolic heart failure Gout Hypothyroidism Procedures: Colonoscopy (07/13/19) Reason for Admission: Bright red blood per rectum following recent polypectomy Hospital Course by Problem (with follow-up plan/instructions): Mr. Aaron Latham is a 59 y.o. gentleman with hx colon cancer s/p resection, morbid obesit y, chronic diastolic heart failure and CKD stage IV who presented with bright red blood per rectum following recent colonoscopy with removal of a large polyp on 07/01/19. Acute GI bleeding, suspected lower source due to recent polypectomy: Patient had resumed [facility] home warfarin following procedure, although INR was only 1.5 at presentation. His warfarin was held and he was prepped for colonoscopy. Procedure was delayed due to emergent cases in [place]. He went for colonoscopy on 07/13/19, which showed the polypectomy with no stigmata of re cent bleeding. Unfortunately, his procedure was complicated by desaturations and significant epistaxis with attempt to place a nasal trumpet, requiring the procedure to be aborted befo re mucosa beyond the target lesion could be identified. His diet was advanced and he had no further bleeding. Per GI, it is OK to resume anticoagulation. They would like for him to ret urn for repeat colonoscopy in 6 months with general anesthesia. Epistaxis: Due to above. Warfarin initially held post-procedure and resumed upon discharge with INR check two days post discharge at the AC clinic he usually follows ([facility]). Atrial fibrillation: on chronic anticoagulation with warfarin. Plan as above. Acute on chronic macrocytic anemia due to acute blood loss: Baseline Hgb was 12 over the barger mmer. Was 8.3 on admission and remained relatively stable ~7.9-8.0. Acute kidney injury, in the setting of stage IV CKD: Baseline creatinine is 2.3, up to 2.6 at admission. This was thought to be pre-renal and resolved with IVFs. Chronic diastolic heart failure with hypertension: Patient takes torsemide and home BP meds which were initially held due to prolonged NPO status. These were resumed upon discharge. Gout: Held while undergoing prep but resumed upon discharge. Hypothyroidism: Can resume upon discharge. He is medically stable for discharge to home. Pertinent Findings: Labs: on day of discharge Cr 1.98, HCT 24.8 Imaging: None Outstanding or Pending Labs/Studies: None Consultants (service/attending name): GI/ Dr. Campbell Discharge Medications: Medication List CONTINUE taking these medications allopurinol 300 mg Tab Commonly known as: ZYLOPRIM Take 150 mg by mouth once daily. atorvastatin 80 mg Tab Commonly known as: LIPITOR Take 80 mg by mouth once daily. calcium-vitamin D 500 mg(1,250mg) -200 unit Tab Commonly known as: OS-EUN 500 + D Take 1 tablet by mouth three times daily. carvedilol 6.25 mg Tab Commonly known as: COREG Take 6.25 mg by mouth two times daily. Administer with food. colchicine 0.6 mg Tab Take 0.6 mg by mouth two times daily. cyanocobalamin 1,000 mcg/mL Soln Commonly known as: VITAMIN B-12 Inject 1,000 mcg under the skin (SUBC) every thirty days. ferrous sulfate 325 mg (65 mg iron) Tab Take 325 mg by mouth once daily. hydrALAZINE 50 mg Tab Commonly known as: APRESOLINE Take 50 mg by mouth three times daily. levothyroxine 25 mcg Tab Take 25 mcg by mouth before breakfast. magnesium oxide 400 mg Tab Commonly known as: MAG-OX Take 400 mg by mouth once daily. polyethylene glycol 17 gram Pwpk Commonly known as: MIRALAX Mix 1 packet and take orally two times daily. Indications: emptying of the bowel torsemide 10 mg Tab Commonly known as: DEMADEX Take 20 mg by mouth once daily. warfarin 5 mg Tab Commonly known as: COUMADIN Take 5 mg by mouth Use as directed. Indications: 3 (15mg) on tuesdays, 3 (15mg) on fridays Rationale for Medication Changes: No changes to medications Allergies: No Known Allergies Code Status: Full POLST completed: no Additional Instructions: Diet Instructions Diet Regular Regular diet- There are no restrictions to your diet. You may eat or drink whatever you p refer, though healthy food choices are recommended. - Activity Instructions Activity No activity restrictions Additional Instructions OTHER DISCHARGE ORDERS & INSTRUCTIONS You will be contacted for another colonoscopy in 6 months by the GI doctors. Please have y our INR checked on , 07/16/19 at the clinic where you usually go to get your blood ch ecked ([facility]). It was a pleasure taking care of you! Other Orders & Follow-up Plan OTHER DISCHARGE ORDERS & INSTRUCTIONS INR - External Order Standing Status: Future Expected By: 07/16/19 Standing Exp. Date: 08/13/20 AC clinic at [facility] to follow (patient established there) Follow Up: Future Appointments Provider Department Dept Phone Center 09/10/2019 1:20 PM [facility] [phone] Orthopedics Discharge Physical Exam: Last 24 hour min/max Temp: 36.7 C (98.1 F) Temp Min: 36.2 C (97.2 F) Max: 37.7 C (99.9 F) Pulse: 61 Pulse Min: 61 Max: 81 Resp: 18 Resp Min: 16 Max: 18 BP: 145/67 BP Min: 111/43 Max: 152/68 SpO2: 95 % SpO2 Min: 92 % Max: 99 % Body mass index is 51.88 kg/m. General: Obese, NAD, comfortable Neck: no JVD noted Cardiovascular: normal S1 and S2 Pulmonary: CTA B with no w/r/r Abdominal: soft, NT Ext: no c/c/e BETY JAMESON MD Pager - [phone] manager contracting Division of Hospital Medicine I spent more than 35 minutes [id number] with the patient of which greater than 50% was sp ent counseling the patient regarding GIB. documented in this enco unter Medications at Time of Discharge + + [...] + + + +---------+ + + | polyethylene | Mix 1 packet and | 60 | 0 | 07/01/20 | | | glycol (MIRALAX) 17 | take orally two | packet | | 19 | 9 | | gram oral powder in | times daily. | | | | | | packetIndications: | Indications: | | | | | | bowel evacuation | emptying of the | | | | | | | bowel | | | | | + + + +---------+ + + documented as of this encounter Progress Notes Kath Silva MD - 07/13/2019 5:05 PM PST HOSPITALIST INPATIENT PROGRESS NOTE Author: Kath Silva MD PCP: Sarah Gutierrez MD Hospital Day:3 CC: post-polypectomy bleeding 24h Events: No acute events overnight. Subj: Doing fine this AM when seen on rounds prior to procedure. Reports stools clear with no rec urrent bleeding. Current Medications: acetaminophen (TYLENOL) tablet 1,000 mg, 1,000 mg, oral, Q6H PRN melatonin tablet 3 mg, 3 mg, oral, HS PRN menthol-zinc oxide (COUGH DROPS) lozenge lozg 5.8 mg, 1 lozenge, oral, PRN methyl salicylate-menthol (ICY HOT) ointment, , topical, PRN Vitals: Last Vitals: BP 130/66 (BP Location: Right upper arm) | Pulse 78 | Temp 36.3 C (97.3 F) (Temporal) | Resp 16 | Ht 1.803 m (5' 11") | Wt 168.7 kg (372 lb) | SpO2 93% | BMI 5 1.88 kg/m | BSA 2.91 m 24 Hour Vital Min/Max: Systolic (24hrs), Av , Min:102 , Max:153 Diastolic (24hrs), Av, Min:44, Max:91 Pulse Av.4 Min: 61 Max: 81 Temp Av.8 C (98.2 F) Min: 36.2 C (97.2 F) Max: 37.7 C (99.9 F) Resp Av Min: 16 Max: 20 SpO2 Av.8 % Min: 92 % Max: 99 % Ins and Outs: Intake/Output Summary (Last 24 hours) at 07/13/2019 1705 Last data filed at 07/13/2019 1245 Gross per 24 hour Intake 3825 ml Output 2752 ml Net 1073 ml Exam: General: NAD Abdomen: obese, soft, NT, ND, NABS Psych: AAO x 4, affect appropriate Basic Labs: CBC with diff last 72 hours (or 3 results) Recent Labs 07/10/19 2313 07/11/19 0430 07/12/19 0505 WBC 9.05 7.96 8.12 HB 8.0* 7.9* 7.9* HCT 24.8* 24.6* 24.8* PLT 224 236 231 Chemistries last 72 Hours (or 3 results): Recent Labs 07/11/19 0430 07/12/19 0505 NA 139 137 K 4.2 4.1 CL 107 104 BICARB 25 26 BUN 44* 28* CR 2.38* 2.39* CA 8.0* 8.3* Assessment and plan: Aaron Latham is a 59 y.o. maleof colon cancer s/p resection, morbid obesity, chronic di astolic heart failure, and CKD who presents with post-polypectomy bleeding. Acute GI bleeding, suspected lower source due to recent polypectomy Chronic anticoagulation Had resumed his home warfarin, although INR only 1.5 at presentation. -Continue to hold warfarin now -Colonoscopy today per GI Acute on chronic macrocytic anemia due to acute blood loss Baseline Hgb 12 over the summer -Will not continue to check for now unless recurrent bleeding Acute kidney injury, in the setting of stage IV CKD DANNY resolved. Creatinine at baseline ~2.3. Chronic diastolic heart failure Hypertension -Continue to hold torsemide for now, given prolonged NPO status. Can likely resume at [facility]ch [facility] -Can likely resume home BP meds at discharge Gout Hypothyroidism Hold home meds for now while doing prep DVT px:SCDs only due to GIB Code status:FULL CODE Dispo: Anticipate d/c home tomorrow if stable following procedure. Kath Silva MD Division of Hospital Medicine [facility] Pager [phone] maAmberly jorge MD - 1 09/13/2018 3:08 PM PSTGastroenterology Procedure Note 07/13/2019 Please refer to the Provation endoscopic report imported under the Procedures tab in Chart Review for full details. Procedure: colonoscopy with monitored anesthesia care Attending: Milad Campbell MD Fellow: Amberly Morgan MD, MS Sedation: per anesthesia The patient desaturated during the procedure requiring us to abort without optimal visualiz ation of mucosa beyond the target lesion. Procedure Findings: - visualized post-polypectomy site without visible vessel, high risk stigmata or active bl eeding - AO and IC valve not zisualized - poor prep that was not optimal for visualizing potential additional bleeding source Impression: - no overt etiology for bleed. Post polypectomy site without active bleeding or high risk stigmata Recommendations: - return patient to [facility] for ongoing care - OK to resume AC - will need follow up colonoscopy in 6 months with general anesthesia We will continue to follow; please page with any questions. Amberly Morgan MD, MS Fellow, Gastroenterology and Hepatology PGY-4 Pager [phone] GI Pager: [phone] mador, Amberly Brink MD - 07/13/2019 6:54 AM PST Subjective: Aaron Latham is a 59 y.o. male presents today for colonoscopy H&P and/or gastroenterology/hepatology consult note was reviewed within 24 hours of this pr ocedure.No significant change to health since initial assessment unless noted here. PARQ held and patient agreeable to proceeding with above procedure. Planned level of sedation: moderate (conscious) sedation. Consent obtained and is in chart. NPO since MN Airway Assessment: III 3E Objective: Vital Signs: BP 102/52 (BP Location: Left upper arm, Patient Position: Lying right side) | Pulse 65 | Temp 36.9 C (98.4 F) (Axillary) | Resp 20 | Ht 1.803 m (5' 11") | Wt 168 .7 kg (372 lb) | SpO2 96% | BMI 51.88 kg/m | BSA 2.91 m Neuro: patient is oriented X3. Mental status clear and intact Neck Neck supple. No adenopathy Respiratory Lungs clear to auscultation bilaterally with good air exchange Cardiac Regular Rate and Rhythm. Abdomen: soft, normal active bowel sounds, nontender, no masses, no organomegaly Medications: Meds reviewed Allergies: Allergies as of 07/10/2019 (No Known Allergies) See procedure note 07/13/2019 Amberly Morgan MD, MS Fellow, Gastroenterology and Hepatology Pager: [phone] signed by Amberly Morgan MD at 07/13/2019 6:54 AM PSTDuane Eisenberg MD - 07/12/2019 4:55 PM PSTBrief GI Note Unfortunately due to volume of urgent/emergent cases in [facility], unable to perform colonos copy today. Case will need to be delayed until tomorrow. Please resume clear liquid diet now. - Bowel Prep Instructions: -Clear liquid diet today -Give 2L GoLytely over 2 hrs at 5 AM tomorrow -NPO after midnight except sips with medications/GoLytely. -Hold pharmacologic DVT prophylaxis tonight and in AM (SC heparin/LMWH). Duane Field MD Gastroenterology Fellow Duane Altamirano MD - 07/12/2019 2:43 PM PST Pre Sedation Endoscopy Note: MR# [id number] Subjective: Aaron Latham is a 59 y.o. male who presents today for colonoscopy. Patient History Reviewed Medications reviewed Allergies: Allergies as of 07/10/2019 (No Known Allergies) Airway Assessment: III ASA class 3E Pt NPO for 8 hrs. ROS: All others negative. Objective: Last Vitals: BP 131/51 (BP Location: Left upper arm, Patient Position: Lying right side) | Pulse 66 | Temp 36.3 C (97.3 F) (Oral) | Resp 18 | Ht 1.803 m (5' 11") | Wt 168.7 k g (372 lb) | SpO2 94% | BMI 51.88 kg/m | BSA 2.91 m Neuro: alert, oriented Neck: Neck supple Respiratory: Lungs clear to auscultation bilaterally with good air exchange Cardiovascular: RRR Abdomen: soft, obese, normal active bowel sounds, nontender, no masses, no organomegaly Impression Patient deemed appropriate candidate for planned procedure and sedation. Plan Proceed with EGD PARQ held and all questions addressed. Consent obtained. See procedure note 07/12/2019 Duane Field MD Kath Herrera MD - 07/12/2019 9:33 AM PST HOSPITALIST INPATIENT PROGRESS NOTE Author: Kath Silva MD PCP: Sarah Gutierrez MD Hospital Day:2 CC: post-polypectomy bleeding 24h Events: No acute events overnight. Subj: Patient without complaints. Says he's just "being patient to be a patient." Stools running clear. Current Medications: melatonin tablet 3 mg, 3 mg, oral, HS PRN menthol-zinc oxide (COUGH DROPS) lozenge lozg 5.8 mg, 1 lozenge, oral, PRN methyl salicylate-menthol (ICY HOT) ointment, , topical, PRN Vitals: Last Vitals: BP 131/72 (BP Location: Left upper arm, Patient Position: Sitting) | Pulse 73 | Temp 36.5 C (97.7 F) (Oral) | Resp 18 | Ht 1.803 m (5' 11") | Wt 168.7 kg (372 lb ) | SpO2 92% | BMI 51.88 kg/m | BSA 2.91 m 24 Hour Vital Min/Max: Systolic (24hrs), Av , Min:131 , Max:153 Diastolic (24hrs), Av, Min:72, Max:79 Pulse Av Min: 69 Max: 73 Temp Av.5 C (97.7 F) Min: 36.3 C (97.3 F) Max: 36.6 C (97.9 F) Resp Av Min: 18 Max: 20 SpO2 Av.5 % Min: 92 % Max: 96 % Ins and Outs: Intake/Output Summary (Last 24 hours) at 07/12/2019 0934 Last data filed at 07/12/2019 0900 Gross per 24 hour Intake 5360 ml Output 4600 ml Net 760 ml Exam: General: WDWN, NAD Abdomen: obese soft, NT, ND, NABS Psych: AAO x 4, affect appropriate Basic Labs: CBC with diff last 72 hours (or 3 results) Recent Labs 07/10/19 2313 07/11/19 0430 07/12/19 0505 WBC 9.05 7.96 8.12 HB 8.0* 7.9* 7.9* HCT 24.8* 24.6* 24.8* PLT 224 236 231 Chemistries last 72 Hours (or 3 results): Recent Labs 07/10/19 1209 07/11/19 0430 07/12/19 0505 NA 139 139 137 K 4.5 4.2 4.1 CL 107 107 104 BICARB 26 25 26 BUN 62* 44* 28* CR 2.63* 2.38* 2.39* CA 8.2* 8.0* 8.3* Liver panel last 72 hours (or 3 results) Recent Labs 07/10/19 1209 AST 23 ALT 18 TBILI 0.4 AP 67 ALB 3.0* TP 6.1* Assessment and plan: Aaron Latham is a 59 y.o. maleof colon cancer s/p resection, morbid obesity, chronic di astolic heart failure, and CKD who presents with post-polypectomy bleeding. Acute GI bleeding, suspected lower source due to recent polypectomy Chronic anticoagulation Had resumed his home warfarin, although INR only 1.5 at presentation. -Continue to hold warfarin now -I discussed the patient with GI and they had hoped to do procedure today but unable to get on OR schedule due to volume of emergent procedures. Will plan for colonoscopy tomorrow. -Clear liquids now, then NPO at midnight. Give another 2L GoLytely at 5 AM. -Repeat CBC in AM - sooner if bleeding recurs Acute on chronic macrocytic anemia due to acute blood loss Baseline Hgb 12 over the summer -Trend CBC Acute kidney injury, in the setting of stage IV CKD Baseline creatinine ~2.3. Improved on today's labs. -Hold home torsemide. Repeat BMP in AM Chronic diastolic heart failure Hypertension -Continue to hold torsemide for now, given NPO status and prep -Will monitor blood pressures and determine whether or not to resume home BP meds Gout Hypothyroidism Hold home meds for now while doing prep DVT px:SCDs only due to GIB Code status:FULL CODE Dispo: To remain inpatient for further evaluation and treatment. Anticipate d/c home when c linically stable, hopefully early next week. Kath Silva MD Division of Hospital Medicine [facility] Pager [phone] I spent 30 minutes on the patient encounter today, >50% in counseling of the patient on radu ing of his procedure and in coordination of care on the [facility] with nursing and GI. ath Silva MD - 6:15 PM PST HOSPITALIST INPATIENT PROGRESS NOTE Author: Kath Silva MD PCP: Sarah Gutierrez MD Hospital Day:1 CC: post-polypectomy bleeding 24h Events: Recurrent bleeding overnight with prep. Subj: Patient reports no further stools of bleeding since 7 AM. Very fatigued and tired of clear liquid diet but otherwise doing OK. Current Medications: melatonin tablet 3 mg, 3 mg, oral, HS PRN menthol-zinc oxide (COUGH DROPS) lozenge lozg 5.8 mg, 1 lozenge, oral, PRN methyl salicylate-menthol (ICY HOT) ointment, , topical, PRN Vitals: Last Vitals: BP 153/79 (BP Location: Right upper arm, Patient Position: Lying on back) | P ulse 72 | Temp 36.6 C (97.9 F) (Oral) | Resp 18 | Ht 1.803 m (5' 11") | Wt 168.7 kg (372 lb) | SpO2 94% | BMI 51.88 kg/m | BSA 2.91 m 24 Hour Vital Min/Max: Systolic (24hrs), Av , Min:142 , Max:163 Diastolic (24hrs), Av, Min:57, Max:94 Pulse Av.8 Min: 72 Max: 92 Temp Av.6 C (97.8 F) Min: 36.4 C (97.5 F) Max: 36.8 C (98.2 F) Resp Av Min: 18 Max: 18 SpO2 Av.6 % Min: 90 % Max: 95 % Ins and Outs: Intake/Output Summary (Last 24 hours) at 07/11/2019 1815 Last data filed at 07/11/2019 1744 Gross per 24 hour Intake 6860 ml Output 3700 ml Net 3160 ml Exam: General: WDWN, NAD, napping with CPAP on Cardiovascular: RRR, no m/g/r appreciated Respiratory: CTA bilaterally Abdomen: obese soft, NT, ND, NABS Ext: No peripheral edema Psych: AAO x 4, affect appropriate Basic Labs: CBC with diff last 72 hours (or 3 results) Recent Labs 07/10/19 1209 07/10/19 2313 07/11/19 0430 WBC 10.26 9.05 7.96 HB 8.3* 8.0* 7.9* HCT 26.0* 24.8* 24.6* PLT 260 224 236 Chemistries last 72 Hours (or 3 results): Recent Labs 07/10/19 1209 07/11/19 0430 NA 139 139 K 4.5 4.2 CL 107 107 BICARB 26 25 BUN 62* 44* CR 2.63* 2.38* CA 8.2* 8.0* Liver panel last 72 hours (or 3 results) Recent Labs 07/10/19 1209 AST 23 ALT 18 TBILI 0.4 AP 67 ALB 3.0* TP 6.1* Assessment and plan: Aaron Latham is a 59 y.o. male of colon cancer s/p resection, morbid obesity, chronic miya stolic heart failure, and CKD who presents with post-polypectomy bleeding. Acute GI bleeding, suspected lower source due to recent polypectomy Chronic anticoagulation Had resumed his home warfarin, although INR only 1.5 at presentation. -Continue to hold warfarin now -I discussed the patient with GI and they are planning to attempt repeat colonoscopy tomorr ow AM pending OR schedule availability. If not tomorrow, will be Saturday. Will repeat prep st valdezing tonjeni. -Clear liquids now, then NPO at midnight -Repeat CBC in AM - sooner if bleeding recurs Acute on chronic macrocytic anemia due to acute blood loss Baseline Hgb 12 over the summer -Trend CBC Acute kidney injury, in the setting of stage IV CKD Baseline creatinine ~2.3. Improved on today's labs. -Hold home torsemide. Repeat BMP in AM Chronic diastolic heart failure Hypertension -Continue to hold torsemide for now, given NPO status and prep -Will monitor blood pressures and determine whether or not to resume home BP meds Gout Hypothyroidism Hold home meds for now while doing prep DVT px: SCDs only due to GIB Code status: FULL CODE Dispo: To remain inpatient for further evaluation and treatment. Anticipate d/c home when c linically stable, hopefully early next week. Kath Silva MD Division of Hospital Medicine [facility] Pager [phone] Duane Altamirano MD - 07/11/2019 4:26 PM PST Gastroenterology Inpatient Consult Follow-Up Note Name: Aaron Latham A/P: 59 year old man with history of sigmoid colon cancer s/p resection 2017, Afib on coumadin, HTN, CKD, systolic and diastolic heart failure, morbid obesity who presents with hematochezi a following polypectomy on 07/01. Patient presents with 1 day of hematochezia following recent polypectomy. No additional BM since transfer. Vitals stable. Exam notable for maroon stool. No melena. Labs notable for do wn trending hbg baseline 12->8.3 Hematochezia is likely a lower GI source from previous alistair ypectomy. Plan for colonoscopy with general anesthesia tomorrow if scheduling permits, could otherwise be done on Saturday. Will plan for repeat colonoscopy before discharge, given degre e of initial bleed despite not being therapeutic on coumadin following last procedure in set ting of high-risk lesion. Our recommendations are as follows: Repeat colonoscopy tomorrow if schedule allows. See below for bowel prep instructions. - Bowel Prep Instructions: -Clear liquid diet today -Give 2L GoLytely over 2 hrs at 5 PM -Give another 2L GoLytely over 2 hrs at 5 AM tomorrow -NPO after midnight except sips with medications/GoLytely. -Hold pharmacologic DVT prophylaxis tonight and in AM (SC heparin/LMWH). We will continue to follow along with you. Please page with any questions or concerns. This patient was staffed with Dr. Vasquez, who agrees with above. Duane Field Gastroenterology Fellow Pager: [phone] IE/S: Hgb 8.3 -> 8.0 -> 7.9 Initially having continued bloody output with prep, then cleared with slight pink hue Remains hemodynamically stable Given improvement and stable Hgb, colonoscopy deferred today for other urgent cases. On CPAP at night and room air when off CPAP O: Medications: Medications PRN Medication Dose/Rate, Route, Frequency Last Action melatonin tablet 3 mg 3 mg, oral, HS PRN Ordered menthol-zinc oxide (COUGH DROPS) lozenge lozg 5.8 mg 5.8 mg, oral, PRN Given: 07/11 09 methyl salicylate-menthol (ICY HOT) ointment No Dose/Rate, top, PRN Ordered Vitals: Last 24 hour min/max Temp: 36.6 C (97.9 F) Temp Min: 36.4 C (97.5 F) Max: 36.8 C (98.2 F) Pulse: 72 Pulse Min: 72 Max: 92 Resp: 18 Resp Min: 18 Max: 18 BP: 153/79 BP Min: 142/57 Max: 163/73 SpO2: 94 % SpO2 Min: 90 % Max: 95 % Body mass index is 51.88 kg/m. Exam: Gen: Pleasant, cooperative, NAD Abd: Soft, mild RLQ tenderness to palpation CV: RRR no m/g/r Resp: CTAB anteriorly Labs: Recent Labs 07/10/19 1209 07/10/19 2313 07/11/19 0430 WBC 10.26 9.05 7.96 HB 8.3* 8.0* 7.9* HCT 26.0* 24.8* 24.6* PLT 260 224 236 Recent Labs 07/10/19 1209 07/11/19 0430 NA 139 139 K 4.5 4.2 CL 107 107 BICARB 26 25 BUN 62* 44* CR 2.63* 2.38* GLU 126* 125* CA 8.2* 8.0* AST 23 -- ALT 18 -- AP 67 -- TBILI 0.4 -- TP 6.1* -- ALB 3.0* -- ANIONGAP 6 7 ANIONALBCOR 8 -- Lab Results Component Value Date INRPT 1.29 (H) 07/10/2019 Associated attestation - Charles Vasquez MD - 07/11/2019 7:26 PM [facility] resident luis manuel nguyen with documenting this service. I saw the patient and reviewed and verified all information documented by the resident, and made modifications to such information, when appropriate. Duaen Field MD - 07/11/2019 9:33 AM PSTFormatting of this note might be different fr om the original. Pre Sedation Endoscopy Note: MR# [id number] Subjective: Aaron Latham is a 59 y.o. male who presents today for GI procedure. Patient History Reviewed Medications reviewed Allergies: Allergies as of 07/10/2019 (No Known Allergies) Airway Assessment: II ASA class 3E Pt NPO for 4 hrs. ROS: All others negative. Objective: Last Vitals: BP (!) 158/94 (BP Location: Right upper arm, Patient Position: Lying on back) | Pulse 78 | Temp 36.4 C (97.5 F) (Oral) | Resp 18 | Ht 1.803 m (5' 11") | Wt 168.7 kg (372 lb) | SpO2 90% | BMI 51.88 kg/m | BSA 2.91 m Neuro: alert, oriented Neck: Neck supple Respiratory: Lungs clear to auscultation bilaterally with good air exchange Cardiovascular: RRR Abdomen: soft, normal active bowel sounds, nontender, no masses, no organomegaly Impression Patient deemed appropriate candidate for planned procedure and sedation. Plan Proceed with GI procedure PARQ held and all questions addressed. Consent obtained. See procedure note 07/11/2019 Duane Field MD Jas Reyna MD - 07/10/2019 11:37 PM PSTNotified by RN that pt is still having bleeding from his rectum. Check CBC -> Hb 8.0 (from 8.3) Will cont to monitor. d ocumented in this encounter Plan of Treatment +--------+---------+ + + + | Date | Type | Specialty | Care Team | Description | +--------+---------+ + + + | 01/20/ | Office | Orthopedics | Richard Harvey, | | | 2019 | Visit | | [address] | | | | | | [address] | | | | | | [place], [place] | | | | | | [address] | | | | | | [phone] | | | | | | | | +--------+---------+ + + + +------+------+--------+ + + | Name | Type | Priori | Associated Diagnoses | Order Schedule | | | | ty | | | +------+------+--------+ + + | INR | Lab | Routin | Lower GI bleed | Expected: 07/16/2019 | | | | e | | (Approximate), | | | | | | Expires: 08/13/2020 | +------+------+--------+ + + documented as of this encounter Procedures + +--------+ + + + | Procedure Name | Priori | Date/Time | Associated Diagnosis | Comments | | | ty | | | | + +--------+ + + + | BASIC METABOLIC SET | Routin | 07/14/2019 | | Results for this | | (NA, K, CL, TCO2, | e | 4:59 AM | | procedure are in the | | BUN, CR, GLU, CA) | | PST | | results section. | + +--------+ + + + | COLONOSCOPY | Routin | 07/13/2019 | | Results for this | | | e | 12:54 PM | | procedure are in the | | | | PST | | results section. | + +--------+ + + + | CBC (HEMOGRAM) ONLY | Routin | 07/12/2019 | | Results for this | | | e | 5:05 AM | | procedure are in the | | | | PST | | results section. | + +--------+ + + + | BASIC METABOLIC SET | Routin | 07/12/2019 | | Results for this | | (NA, K, CL, TCO2, | e | 5:05 AM | | procedure are in the | | BUN, CR, GLU, CA) | | PST | | results section. | + +--------+ + + + | CBC ONLY | Routin | 07/12/2019 | | Results for this | | | e | 5:05 AM | | procedure are in the | | | | PST | | results section. | + +--------+ + + + | CBC (HEMOGRAM) ONLY | Routin | 07/11/2019 | | Results for this | | | e | 4:30 AM | | procedure are in the | | | | PST | | results section. | + +--------+ + + + | BASIC METABOLIC SET | Routin | 07/11/2019 | | Results for this | | (NA, K, CL, TCO2, | e | 4:30 AM | | procedure are in the | | BUN, CR, GLU, CA) | | PST | | results section. | + +--------+ + + + | CBC ONLY | Routin | 07/11/2019 | | Results for this | | | e | 4:30 AM | | procedure are in the | | | | PST | | results section. | + +--------+ + + + | CBC (HEMOGRAM) ONLY | Routin | 07/10/2019 | | Results for this | | | e | 11:13 PM | | procedure are in the | | | | PST | | results section. | + +--------+ + + + | CONFIRMATORY ABO/RH | Routin | 07/10/2019 | | Results for this | | | e | 11:13 PM | | procedure are in the | | | | PST | | results section. | + +--------+ + + + | CBC ONLY | Routin | 07/10/2019 | | Results for this | | | e | 11:13 PM | | procedure are in the | | | | PST | | results section. | + +--------+ + + + | ANTIBODY SCREEN | Routin | 07/10/2019 | | Results for this | | | e | 11:13 PM | | procedure are in the | | | | PST | | results section. | + +--------+ + + + | TYPE AND SCREEN | Routin | 07/10/2019 | | Results for this | | | e | 11:13 PM | | procedure are in the | | | | PST | | results section. | + +--------+ + + + | ABO & RH TYPE | Routin | 07/10/2019 | | Results for this | | | e | 11:13 PM | | procedure are in the | | | | PST | | results section. | + +--------+ + + + | CBC (HEMOGRAM) ONLY | Routin | 07/10/2019 | | Results for this | | | e | 12:09 PM | | procedure are in the | | | | PST | | results section. | + +--------+ + + + | INR | Routin | 07/10/2019 | | Results for this | | | e | 12:09 PM | | procedure are in the | | | | PST | | results section. | + +--------+ + + + | COMPLETE METABOLIC | Routin | 07/10/2019 | | Results for this | | SET | e | 12:09 PM | | procedure are in the | | (NA,K,CL,CO2,BUN,CRE | | PST | | results section. | | AT,GLUC,CA,AST,ALT,B | | | | | | JOHANNY TOTAL,ALK | | | | | | PHOS,ALB,PROT TOTAL) | | | | | + +--------+ + + + | CBC ONLY | Routin | 07/10/2019 | | Results for this | | | e | 12:09 PM | | procedure are in the | | | | PST | | results section. | + +--------+ + + + | OUTSIDE CARDIOLOGY | | 07/10/2019 | | Results for this | | | | 12:00 AM | | procedure are in the | | | | PST | | results section. | + +--------+ + + + documented in this encounter Results BASIC METABOLIC SET (NA, K, CL, TCO2, BUN, CR, GLU, CA) (07/14/2019 4:59 AM PST) + + + + + + | Component | Value | Ref Range | Performed | Pathologist | | | | | At | Signature | + + + + + + | GLUCOSE, | 87 | 70 - 99 mg/dL | [facility] | | | PLASMA | | | LABORATORY | | | (LAB) | | | SERVICES, | | | | | | CORE | | + + + + + + | BUN, PLASMA | 14 | 6 - 20 mg/dL | [facility] | | | (LAB) | | | LABORATORY | | | | | | SERVICES, | | | | | | CORE | | + + + + + + | CREATININE | 1.98 (H) | 0.70 - 1.30 | [facility] | | | PLASMA | | mg/dL | LABORATORY | | | (LAB) | | | SERVICES, | | | | | | CORE | | + + + + + + | EGFR | 42 (L) | >60 mL/min | [facility] | | | - | | | LABORATORY | | | GREEK | | | SERVICES, | | | | | | CORE | | + + + + + + | EGFR NON | 35 (L) | >60 mL/min | [facility] | | | -[facility] | | | LABORATORY | | | RICAN | | | SERVICES, | | | | | | CORE | | + + + + + + | SODIUM, | 138 | 136 - 145 | [facility] | | | PLASMA | | mmol/L | LABORATORY | | | (LAB) | | | SERVICES, | | | | | | CORE | | + + + + + + | POTASSIUM, | 4.1 | 3.4 - 5.0 | [facility] | | | PLASMA | | mmol/L | LABORATORY | | | (LAB) | | | SERVICES, | | | | | | CORE | | + + + + + + | CHLORIDE, | 106 | 97 - 108 mmol/L | [facility] | | | PLASMA | | | LABORATORY | | | (LAB) | | | SERVICES, | | | | | | CORE | | + + + + + + | TOTAL CO2, | 27 | 21 - 32 mmol/L | [facility] | | | PLASMA | | | LABORATORY | | | (LAB) | | | SERVICES, | | | | | | CORE | | + + + + + + | CALCIUM, | 8.5 (L) | 8.6 - 10.2 | [facility] | | | PLASMA | | mg/dL | LABORATORY | | | (LAB) | | | SERVICES, | | | | | | CORE | | + + + + + + | ANION GAP | 5 | 4 - 11 mmol/L | [facility] | | | | | | LABORATORY | | | | | | SERVICES, | | | | | | CORE | | + + + + + + | POTASSIUM | No Hemo | | [facility] | | | CMNT | | | LABORATORY | | | | | | SERVICES, | | | | | | CORE | | + + + + + + + + | Specimen | + + | Blood - Blood | | (substance) | + + + + + | Narrative | Performed At | + + + | GFR is estimated using the MDRD equation recommended by the National | [facility] | | Kidney Disease Education Program. Estimated GFR Interpretive | LABORATORY | | Information: <60 mL/min/1.73 sq m Chronic Kidney | SERVICES, CORE | | Disease <15 mL/min/1.73 sq m Kidney Failure | | | Estimated GFR greater than 60 mL/min/1.73 sq m is of limited clinical | | | value. The MDRD equation is not valid in the following situations: | | | - Patients under 18 years of age - Severe malnutrition or obesity | | | - Vegetarian diet - Rapidly changing kidney function - Amputees, | | | paraplegics, or other muscle-wasting diseases | | + + + + + + + + | Performing | Address | City/State/Zipcode | Phone Number | | Organization | | | | + + + + + | [facility] | [address] | [place] [address] | | | SERVICES, CORE | [address] | | | + + + + + COLONOSCOPY (07/13/2019 12:54 PM PST) + + | Specimen | + + | | + + + + + | Narrative | Performed At | + + + | MRN: | [facility] | | [id number] Date: 07/13/2019Patient Name: Aaron Justin #: | ENDOSCOPY | | [id number] of : 1960SN: [id number] Type: | | | InpatientRoom: GI 3Procedure: ColonoscopyIndications: | | | Rectal bleeding; post polypectomy bleedProviders: | | | MILAD CAMPBELL MD (Doctor), CATARINA SOLIMAN RN | | | (Nurse), JAYANT KELLY (Border Measurer And Cutter), | | | AMBERLY MORGAN MD (Fellow)Referring | | | MD: MASON FROSTequesting Provider: Medicines: | | | Monitored Anesthesia CareComplications: No immediate | | | complications.Procedure: Pre-Anesthesia Assessment: | | | - ASA Grade Assessment: IV - A patient | | | with severe systemic disease that is a | | | constant threat to life. - Prior to the | | | procedure, a History and Physical was | | | performed, and patient medications and allergies were | | | reviewed. ASA Grade Assessment: IV - A patient with | | | severe systemic disease that is a constant | | | threat to life. After reviewing the | | | risks and benefits, the patient was | | | deemed in satisfactory condition to undergo | | | the procedure Immediately prior to administration of | | | medications, the patient was re-assessed for | | | adequacy to receive sedatives. The | | | heart rate, respiratory rate, oxygen | | | saturations, blood pressure, adequacy of | | | pulmonary ventilation, and response to care were | | | monitored throughout the procedure. The physical status | | | of the patient was re-assessed after the | | | procedure. Prior to the procedure, a | | [...] | patient was re-assessed after the procedure. | | | The Olympus [id number] Colonoscope #[id number] was | | | introduced through the anus and advanced to the cecum, | | | identified by appendiceal orifice and | | | ileocecal valve. The colonoscopy was | | | performed without difficulty. The | | | patient tolerated the procedure poorly due to the | | | patient's body habitus. The appendiceal orifice and the | | | rectum were photographed. The quality of | | | the bowel preparation was evaluated | | | using the BBPS ([place] Bowel | | | Preparation Scale). The total BBPS score equals 7. The | | | quality of the bowel preparation was good.Estimated | | | Blood Loss: Estimated blood loss: none.Findings: There was | | | evidence of a prior end-to-side colo-colonic anastomosis in | | | the sigmoid colon. This was patent. The colon (entire examined | | | portion) was moderately tortuous and long. no blood seen | | | throughout the colon A single 20 mm ulcer bed was seen in the | | | proximal ascending colon; there was no visible vessel or dark | | | spot, examined thoroughly; 6 clips were present on the edges. | | | Procedure aborted after visualization of this area given | | | hypoxia.Impression: - Patent end-to-side colo-colonic | | | anastomosis in the sigmoid colon | | | - Long Tortuous colon. | | | - polypectomy site is clean without target for | | | endoscopic therapyRecommendation: ok to restart | | | warfarin tomorrow repeat procedure in 6 | | | months for surveillance; he is a high | | | risk sedation candidate; he was tried to MAC again | | | today; his movements were not an issue however he is | | | hard to ventilate; in discussion with | | | anesthesia, they recommended MAC and | | | starting with nasal trumpet from the | | | beginning and having his head near the anesthesia | | | resource vs GETA - Resume | | | previous diet. - Continue present | | | medications. - Patient has a contact | | | number available for emergencies. The | | | signs and symptoms of potential delayed | | | complications were discussed with the patient. Return to | | | normal activities tomorrow. Written discharge | | | instructions were provided to the patient. | | | - If the pathology report is benign, | | | then repeat colonoscopy for | | | surveillance in 6 months.Attending Participation: I was present | | | and participated during the entire procedure, including non-mtz | | | portions.MILAD CAMPBELL MD07/14/2019 1:39:13 PMAMBERLY MORGAN | | | Number of Addenda: 0Note Initiated On: 07/13/2019 12:54 [facility] Letter | | | to: SARAH GUTIERREZ MD, CHARLES VASQUEZ MD | | |AMBERLY MORGAN MD | | |Number of Addenda: 0 | | |Note Initiated On: 07/13/2019 12:54 PM | | |CC Letter to: | | | SARAH GUTIERREZ MD, CHARLES VASQUEZ MD | | + + + + +---------+ + + | Performing | Address | City/State/Zipcode | Phone Number | | Organization | | | | + +---------+ + + | [facility] | | | | + +---------+ + + CBC (HEMOGRAM) ONLY (07/12/2019 5:05 AM PST) + + + + + + | Component | Value | Ref Range | Performed | Pathologist | | | | | At | Signature | + + + + + + | WHITE CELL | 8.12 | 3.50 - 10.80 | [facility] | | | COUNT | | K/cu mm | LABORATORY | | | | | | SERVICES, | | | | | | CORE | | + + + + + + | RED CELL | 2.41 (L) | 4.50 - 6.00 | [facility] | | | COUNT | | M/cu mm | LABORATORY | | | | | | SERVICES, | | | | | | CORE | | + + + + + + | HEMOGLOBIN | 7.9 (L) | 13.5 - 17.5 | [facility] | | | | | g/dL | LABORATORY | | | | | | SERVICES, | | | | | | CORE | | + + + + + + | HEMATOCRIT | 24.8 (L) | 41.0 - 53.0 % | [facility] | | | | | | LABORATORY | | | | | | SERVICES, | | | | | | CORE | | + + + + + + | MCV | 102.9 (H) | 80.0 - 100.0 fL | [facility] | | | | | | LABORATORY | | | | | | SERVICES, | | | | | | CORE | | + + + + + + | MCHC | 31.9 (L) | 32.0 - 36.0 | [facility] | | | | | g/dL | LABORATORY | | | | | | SERVICES, | | | | | | CORE | | + + + + + + | RDW SD | 65.1 (H) | 35.1 - 46.3 fL | [facility] | | | | | | LABORATORY | | | | | | SERVICES, | | | | | | CORE | | + + + + + + | PLATELET | 231 | 150 - 400 K/cu | [facility] | | | COUNT | | mm | LABORATORY | | | | | | SERVICES, | | | | | | CORE | | + + + + + + | MPV | 9.4 (L) | 9.7 - 12.3 fL | [facility] | | | | | | LABORATORY | | | | | | SERVICES, | | | | | | CORE | | + + + + + + | NRBC% | 0.0 | 0.0 - 0.3 % | [facility] | | | | | | LABORATORY | | | | | | SERVICES, | | | | | | CORE | | + + + + + + | NRBC# | 0.00 | 0.00 - 0.02 | [facility] | | | | | K/cu mm | LABORATORY | | | | | | SERVICES, | | | | | | CORE | | + + + + + + + + | Specimen | + + | Blood - Blood | | (substance) | + + + + + + + | Performing | Address | City/State/Zipcode | Phone Number | | Organization | | | | + + + + + | [facility] | [address] | [place] [address] | | | SERVICES, CORE | [address] | | | + + + + + BASIC METABOLIC SET (NA, K, CL, TCO2, BUN, CR, GLU, CA) (07/12/2019 5:05 AM PST) + + + + + + | Component | Value | Ref Range | Performed | Pathologist | | | | | At | Signature | + + + + + + | GLUCOSE, | 108 (H) | 70 - 99 mg/dL | [facility] | | | PLASMA | | | LABORATORY | | | (LAB) | | | SERVICES, | | | | | | CORE | | + + + + + + | BUN, PLASMA | 28 (H) | 6 - 20 mg/dL | [facility] | | | (LAB) | | | LABORATORY | | | | | | SERVICES, | | | | | | CORE | | + + + + + + | CREATININE | 2.39 (H) | 0.70 - 1.30 | [facility] | | | PLASMA | | mg/dL | LABORATORY | | | (LAB) | | | SERVICES, | | | | | | CORE | | + + + + + + | EGFR | 34 (L) | >60 mL/min | [facility] | | | - | | | LABORATORY | | | GREEK | | | SERVICES, | | | | | | CORE | | + + + + + + | EGFR NON | 28 (L) | >60 mL/min | [facility] | | | -[facility] | | | LABORATORY | | | RICAN | | | SERVICES, | | | | | | CORE | | + + + + + + | SODIUM, | 137 | 136 - 145 | [facility] | | | PLASMA | | mmol/L | LABORATORY | | | (LAB) | | | SERVICES, | | | | | | CORE | | + + + + + + | POTASSIUM, | 4.1 | 3.4 - 5.0 | [facility] | | | PLASMA | | mmol/L | LABORATORY | | | (LAB) | | | SERVICES, | | | | | | CORE | | + + + + + + | CHLORIDE, | 104 | 97 - 108 mmol/L | [facility] | | | PLASMA | | | LABORATORY | | | (LAB) | | | SERVICES, | | | | | | CORE | | + + + + + + | TOTAL CO2, | 26 | 21 - 32 mmol/L | [facility] | | | PLASMA | | | LABORATORY | | | (LAB) | | | SERVICES, | | | | | | CORE | | + + + + + + | CALCIUM, | 8.3 (L) | 8.6 - 10.2 | [facility] | | | PLASMA | | mg/dL | LABORATORY | | | (LAB) | | | SERVICES, | | | | | | CORE | | + + + + + + | ANION GAP | 7 | 4 - 11 mmol/L | [facility] | | | | | | LABORATORY | | | | | | SERVICES, | | | | | | CORE | | + + + + + + | POTASSIUM | No Hemo | | [facility] | | | CMNT | | | LABORATORY | | | | | | SERVICES, | | | | | | CORE | | + + + + + + + + | Specimen | + + | Blood - Blood | | (substance) | + + + + + | Narrative | Performed At | + + + | GFR is estimated using the MDRD equation recommended by the National | [facility] | | Kidney Disease Education Program. Estimated GFR Interpretive | LABORATORY | | Information: <60 mL/min/1.73 sq m Chronic Kidney | SERVICES, CORE | | Disease <15 mL/min/1.73 sq m Kidney Failure | | | Estimated GFR greater than 60 mL/min/1.73 sq m is of limited clinical | | | value. The MDRD equation is not valid in the following situations: | | | - Patients under 18 years of age - Severe malnutrition or obesity | | | - Vegetarian diet - Rapidly changing kidney function - Amputees, | | | paraplegics, or other muscle-wasting diseases | | + + + + + + + + | Performing | Address | City/State/Zipcode | Phone Number | | Organization | | | | + + + + + | [facility] | [address] | [place] [address] | | | [address] | [address] | | | + + + + + CBC (HEMOGRAM) ONLY (07/11/2019 4:30 AM PST) + + + + + + | Component | Value | Ref Range | Performed | Pathologist | | | | | At | Signature | + + + + + + | WHITE CELL | 7.96 | 3.50 - 10.80 | [facility] | | | COUNT | | K/cu mm | LABORATORY | | | | | | SERVICES, | | | | | | CORE | | + + + + + + | RED CELL | 2.37 (L) | 4.50 - 6.00 | [facility] | | | COUNT | | M/cu mm | LABORATORY | | | | | | SERVICES, | | | | | | CORE | | + + + + + + | HEMOGLOBIN | 7.9 (L) | 13.5 - 17.5 | [facility] | | | | | g/dL | LABORATORY | | | | | | SERVICES, | | | | | | CORE | | + + + + + + | HEMATOCRIT | 24.6 (L) | 41.0 - 53.0 % | [facility] | | | | | | LABORATORY | | | | | | SERVICES, | | | | | | CORE | | + + + + + + | MCV | 103.8 (H) | 80.0 - 100.0 fL | [facility] | | | | | | LABORATORY | | | | | | SERVICES, | | | | | | CORE | | + + + + + + | MCHC | 32.1 | 32.0 - 36.0 | [facility] | | | | | g/dL | LABORATORY | | | | | | SERVICES, | | | | | | CORE | | + + + + + + | RDW SD | 68.7 (H) | 35.1 - 46.3 fL | [facility] | | | | | | LABORATORY | | | | | | SERVICES, | | | | | | CORE | | + + + + + + | PLATELET | 236 | 150 - 400 K/cu | [facility] | | | COUNT | | mm | LABORATORY | | | | | | SERVICES, | | | | | | CORE | | + + + + + + | MPV | 9.7 | 9.7 - 12.3 fL | [facility] | | | | | | LABORATORY | | | | | | SERVICES, | | | | | | CORE | | + + + + + + | NRBC% | 0.0 | 0.0 - 0.3 % | [facility] | | | | | | LABORATORY | | | | | | SERVICES, | | | | | | CORE | | + + + + + + | NRBC# | 0.00 | 0.00 - 0.02 | [facility] | | | | | K/cu mm | LABORATORY | | | | | | SERVICES, | | | | | | CORE | | + + + + + + + + | Specimen | + + | Blood - Blood | | (substance) | + + + + + + + | Performing | Address | City/State/Zipcode | Phone Number | | Organization | | | | + + + + + | [facility] | [address] | [place] [address] | | | SERVICES, CORE | [address] | | | + + + + + BASIC METABOLIC SET (NA, K, CL, TCO2, BUN, CR, GLU, CA) (07/11/2019 4:30 AM PST) + + + + + + | Component | Value | Ref Range | Performed | Pathologist | | | | | At | Signature | + + + + + + | GLUCOSE, | 125 (H) | 70 - 99 mg/dL | [facility] | | | PLASMA | | | LABORATORY | | | (LAB) | | | SERVICES, | | | | | | CORE | | + + + + + + | BUN, PLASMA | 44 (H) | 6 - 20 mg/dL | [facility] | | | (LAB) | | | LABORATORY | | | | | | SERVICES, | | | | | | CORE | | + + + + + + | CREATININE | 2.38 (H) | 0.70 - 1.30 | [facility] | | | PLASMA | | mg/dL | LABORATORY | | | (LAB) | | | SERVICES, | | | | | | CORE | | + + + + + + | EGFR | 34 (L) | >60 mL/min | [facility] | | | - | | | LABORATORY | | | GREEK | | | SERVICES, | | | | | | CORE | | + + + + + + | EGFR NON | 28 (L) | >60 mL/min | [facility] | | | -[facility] | | | LABORATORY | | | RICAN | | | SERVICES, | | | | | | CORE | | + + + + + + | SODIUM, | 139 | 136 - 145 | [facility] | | | PLASMA | | mmol/L | LABORATORY | | | (LAB) | | | SERVICES, | | | | | | CORE | | + + + + + + | POTASSIUM, | 4.2 | 3.4 - 5.0 | [facility] | | | PLASMA | | mmol/L | LABORATORY | | | (LAB) | | | SERVICES, | | | | | | CORE | | + + + + + + | CHLORIDE, | 107 | 97 - 108 mmol/L | [facility] | | | PLASMA | | | LABORATORY | | | (LAB) | | | SERVICES, | | | | | | CORE | | + + + + + + | TOTAL CO2, | 25 | 21 - 32 mmol/L | [facility] | | | PLASMA | | | LABORATORY | | | (LAB) | | | SERVICES, | | | | | | CORE | | + + + + + + | CALCIUM, | 8.0 (L) | 8.6 - 10.2 | [facility] | | | PLASMA | | mg/dL | LABORATORY | | | (LAB) | | | SERVICES, | | | | | | CORE | | + + + + + + | ANION GAP | 7 | 4 - 11 mmol/L | [facility] | | | | | | LABORATORY | | | | | | SERVICES, | | | | | | CORE | | + + + + + + | POTASSIUM | No Hemo | | [facility] | | | CMNT | | | LABORATORY | | | | | | SERVICES, | | | | | | CORE | | + + + + + + + + | Specimen | + + | Blood - Blood | | (substance) | + + + + + | Narrative | Performed At | + + + | GFR is estimated using the MDRD equation recommended by the National | [facility] | | Kidney Disease Education Program. Estimated GFR Interpretive | LABORATORY | | Information: <60 mL/min/1.73 sq m Chronic Kidney | SERVICES, CORE | | Disease <15 mL/min/1.73 sq m Kidney Failure | | | Estimated GFR greater than 60 mL/min/1.73 sq m is of limited clinical | | | value. The MDRD equation is not valid in the following situations: | | | - Patients under 18 years of age - Severe malnutrition or obesity | | | - Vegetarian diet - Rapidly changing kidney function - Amputees, | | | paraplegics, or other muscle-wasting diseases | | + + + + + + + + | Performing | Address | City/State/Zipcode | Phone Number | | Organization | | | | + + + + + | [facility] | [address] | [place] [address] | | | SERVICES, CORE | [address] | | | + + + + + CONFIRMATORY ABO/RH (07/10/2019 11:13 PM PST) + + + + + + | Component | Value | Ref Range | Performed | Pathologist | | | | | At | Signature | + + + + + + | ABO Group | A | | [facility] | | | | | | LABORATORY | | | | | | SERVICES, | | | | | | TRANSFUSION | | | | | | MEDICINE | | + + + + + + | Rh Type | Positive | | [facility] | | | | | | LABORATORY | | | | | | SERVICES, | | | | | | TRANSFUSION | | | | | | MEDICINE | | + + + + + + + + | Specimen | + + | Blood - Blood | | (substance) | + + + + + + + | Performing | Address | City/State/Zipcode | Phone Number | | Organization | | | | + + + + + | [facility] | [address] | [place] [address] | | | SERVICES, | [address] | | | | TRANSFUSION MEDICINE | | | | + + + + + ANTIBODY SCREEN (07/10/2019 11:13 PM PST) + + + + + + | Component | Value | Ref Range | Performed | Pathologist | | | | | At | Signature | + + + + + + | Antibody | Negative | | [facility] | | | Screen | | | LABORATORY | | | | | | SERVICES, | | | | | | TRANSFUSION | | | | | | MEDICINE | | + + + + + + + + | Specimen | + + | Blood - Blood | | (substance) | + + + + + + + | Performing | Address | City/State/Zipcode | Phone Number | | Organization | | | | + + + + + | [facility] | [address] | [place] [address] | | | SERVICES, | [address] | | | | TRANSFUSION MEDICINE | | | | + + + + + ABO & RH TYPE (07/10/2019 11:13 PM PST) + + + + + + | Component | Value | Ref Range | Performed | Pathologist | | | | | At | Signature | + + + + + + | ABO Group | A | | [facility] | | | | | | LABORATORY | | | | | | SERVICES, | | | | | | TRANSFUSION | | | | | | MEDICINE | | + + + + + + | Rh Type | Positive | | [facility] | | | | | | LABORATORY | | | | | | SERVICES, | | | | | | TRANSFUSION | | | | | | MEDICINE | | + + + + + + + + | Specimen | + + | Blood - Blood | | (substance) | + + + + + + + | Performing | Address | City/State/Zipcode | Phone Number | | Organization | | | | + + + + + | [facility] | [address] | [place] [address] | | | SERVICES, | [address] | | | | TRANSFUSION MEDICINE | | | | + + + + + CBC (HEMOGRAM) ONLY (07/10/2019 11:13 PM PST) + + + + + + | Component | Value | Ref Range | Performed | Pathologist | | | | | At | Signature | + + + + + + | WHITE CELL | 9.05 | 3.50 - 10.80 | [facility] | | | COUNT | | K/cu mm | LABORATORY | | | | | | SERVICES, | | | | | | CORE | | + + + + + + | RED CELL | 2.41 (L) | 4.50 - 6.00 | [facility] | | | COUNT | | M/cu mm | LABORATORY | | | | | | SERVICES, | | | | | | CORE | | + + + + + + | HEMOGLOBIN | 8.0 (L) | 13.5 - 17.5 | [facility] | | | | | g/dL | LABORATORY | | | | | | SERVICES, | | | | | | CORE | | + + + + + + | HEMATOCRIT | 24.8 (L) | 41.0 - 53.0 % | [facility] | | | | | | LABORATORY | | | | | | SERVICES, | | | | | | CORE | | + + + + + + | MCV | 102.9 (H) | 80.0 - 100.0 fL | [facility] | | | | | | LABORATORY | | | | | | SERVICES, | | | | | | CORE | | + + + + + + | MCHC | 32.3 | 32.0 - 36.0 | [facility] | | | | | g/dL | LABORATORY | | | | | | SERVICES, | | | | | | CORE | | + + + + + + | RDW SD | 68.3 (H) | 35.1 - 46.3 fL | [facility] | | | | | | LABORATORY | | | | | | SERVICES, | | | | | | CORE | | + + + + + + | PLATELET | 224 | 150 - 400 K/cu | [facility] | | | COUNT | | mm | LABORATORY | | | | | | SERVICES, | | | | | | CORE | | + + + + + + | MPV | 8.9 (L) | 9.7 - 12.3 fL | [facility] | | | | | | LABORATORY | | | | | | SERVICES, | | | | | | CORE | | + + + + + + | NRBC% | 0.0 | 0.0 - 0.3 % | [facility] | | | | | | LABORATORY | | | | | | SERVICES, | | | | | | CORE | | + + + + + + | NRBC# | 0.00 | 0.00 - 0.02 | [facility] | | | | | K/cu mm | LABORATORY | | | | | | SERVICES, | | | | | | CORE | | + + + + + + + + | Specimen | + + | Blood - Blood | | (substance) | + + + + + + + | Performing | Address | City/State/Zipcode | Phone Number | | Organization | | | | + + + + + | [facility] | [address] | [place] [address] | | | SERVICES, CORE | [address] | | | + + + + + CBC (HEMOGRAM) ONLY (07/10/2019 12:09 PM PST) + + + + + + | Component | Value | Ref Range | Performed | Pathologist | | | | | At | Signature | + + + + + + | WHITE CELL | 10.26 | 3.50 - 10.80 | [facility] | | | COUNT | | K/cu mm | LABORATORY | | | | | | SERVICES, | | | | | | CORE | | + + + + + + | RED CELL | 2.55 (L) | 4.50 - 6.00 | [facility] | | | COUNT | | M/cu mm | LABORATORY | | | | | | SERVICES, | | | | | | CORE | | + + + + + + | HEMOGLOBIN | 8.3 (L) | 13.5 - 17.5 | [facility] | | | | | g/dL | LABORATORY | | | | | | SERVICES, | | | | | | CORE | | + + + + + + | HEMATOCRIT | 26.0 (L) | 41.0 - 53.0 % | [facility] | | | | | | LABORATORY | | | | | | SERVICES, | | | | | | CORE | | + + + + + + | MCV | 102.0 (H) | 80.0 - 100.0 fL | [facility] | | | | | | LABORATORY | | | | | | SERVICES, | | | | | | CORE | | + + + + + + | MCHC | 31.9 (L) | 32.0 - 36.0 | [facility] | | | | | g/dL | LABORATORY | | | | | | SERVICES, | | | | | | CORE | | + + + + + + | RDW SD | 65.3 (H) | 35.1 - 46.3 fL | [facility] | | | | | | LABORATORY | | | | | | SERVICES, | | | | | | CORE | | + + + + + + | PLATELET | 260 | 150 - 400 K/cu | [facility] | | | COUNT | | mm | LABORATORY | | | | | | SERVICES, | | | | | | CORE | | + + + + + + | MPV | 9.8 | 9.7 - 12.3 fL | [facility] | | | | | | LABORATORY | | | | | | SERVICES, | | | | | | CORE | | + + + + + + | NRBC% | 0.0 | 0.0 - 0.3 % | [facility] | | | | | | LABORATORY | | | | | | SERVICES, | | | | | | CORE | | + + + + + + | NRBC# | 0.00 | 0.00 - 0.02 | [facility] | | | | | K/cu mm | LABORATORY | | | | | | SERVICES, | | | | | | CORE | | + + + + + + + + | Specimen | + + | Blood - Blood | | (substance) | + + + + + + + | Performing | Address | City/State/Zipcode | Phone Number | | Organization | | | | + + + + + | [facility] | [address] | [place] [address] | | | SERVICES, CORE | [address] | | | + + + + + INR (07/10/2019 12:09 PM PST) + + + + + + | Component | Value | Ref Range | Performed | Pathologist | | | | | At | Signature | + + + + + + | INR | 1.29 (H) | 0.90 - 1.20 INR | [facility] | | | | | | LABORATORY | | | | | | SERVICES, | | | | | | CORE | | + + + + + + + + | Specimen | + + | Blood - Blood | | (substance) | + + + + + | Narrative | Performed At | + + + | INR Therapeutic ranges for full anticoagulation: INR for Venous | [facility] | | Thromboembolism (2.0 - 3.0) INR INR for most | LABORATORY | | patients with mech. valves (2.5 - 3.5) INR | SERVICES, CORE | + + + + + + + + | Performing | Address | City/State/Zipcode | Phone Number | | Organization | | | | + + + + + | [facility] | [address] | [place] [address] | | | SERVICES, CORE | [address] | | | + + + + + COMPLETE METABOLIC SET (NA,K,CL,CO2,BUN,CREAT,GLUC,CA,AST,ALT,BILI TOTAL,ALK PHOS,ALB,PROT TOTAL) (07/10/2019 12:09 PM PST) + + + + + + | Component | Value | Ref Range | Performed | Pathologist | | | | | At | Signature | + + + + + + | GLUCOSE, | 126 (H) | 70 - 99 mg/dL | [facility] | | | PLASMA | | | LABORATORY | | | (LAB) | | | SERVICES, | | | | | | CORE | | + + + + + + | BUN, PLASMA | 62 (H) | 6 - 20 mg/dL | [facility] | | | (LAB) | | | LABORATORY | | | | | | SERVICES, | | | | | | CORE | | + + + + + + | CREATININE | 2.63 (H) | 0.70 - 1.30 | [facility] | | | PLASMA | | mg/dL | LABORATORY | | | (LAB) | | | SERVICES, | | | | | | CORE | | + + + + + + | EGFR | 30 (L) | >60 mL/min | [facility] | | | - | | | LABORATORY | | | GREEK | | | SERVICES, | | | | | | CORE | | + + + + + + | EGFR NON | 25 (L) | >60 mL/min | [facility] | | | -CINDY | | | LABORATORY | | | RICAN | | | SERVICES, | | | | | | CORE | | + + + + + + | SODIUM, | 139 | 136 - 145 | [facility] | | | PLASMA | | mmol/L | LABORATORY | | | (LAB) | | | SERVICES, | | | | | | CORE | | + + + + + + | POTASSIUM, | 4.5 | 3.4 - 5.0 | [facility] | | | PLASMA | | mmol/L | LABORATORY | | | (LAB) | | | SERVICES, | | | | | | CORE | | + + + + + + | CHLORIDE, | 107 | 97 - 108 mmol/L | [facility] | | | PLASMA | | | LABORATORY | | | (LAB) | | | SERVICES, | | | | | | CORE | | + + + + + + | TOTAL CO2, | 26 | 21 - 32 mmol/L | [facility] | | | PLASMA | | | LABORATORY | | | (LAB) | | | SERVICES, | | | | | | CORE | | + + + + + + | CALCIUM, | 8.2 (L) | 8.6 - 10.2 | [facility] | | | PLASMA | | mg/dL | LABORATORY | | | (LAB) | | | SERVICES, | | | | | | CORE | | + + + + + + | CALCIUM(ALB | 9.0 | 8.6 - 10.2 | [facility] | | | CORRECTED) | | mg/dL | LABORATORY | | | | | | SERVICES, | | | | | | CORE | | + + + + + + | BILIRUBIN | 0.4 | 0.3 - 1.2 mg/dL | [facility] | | | TOTAL | | | LABORATORY | | | | | | SERVICES, | | | | | | CORE | | + + + + + + | TOTAL | 6.1 (L) | 6.4 - 8.2 g/dL | [facility] | | | PROTEIN, | | | LABORATORY | | | PLASMA | | | SERVICES, | | | (LAB) | | | CORE | | + + + + + + | ALBUMIN, | 3.0 (L) | 3.5 - 4.7 g/dL | [facility] | | | PLASMA | | | LABORATORY | | | (LAB) | | | SERVICES, | | | | | | CORE | | + + + + + + | ALK PHOS | 67 | 53 - 128 U/L | [facility] | | | | | | LABORATORY | | | | | | SERVICES, | | | | | | CORE | | + + + + + + | AST(SGOT) | 23 | <=41 U/L | [facility] | | | | | | LABORATORY | | | | | | SERVICES, | | | | | | CORE | | + + + + + + | ALT (SGPT) | 18 | <=60 U/L | [facility] | | | | | | LABORATORY | | | | | | SERVICES, | | | | | | CORE | | + + + + + + | ANION GAP | 6 | 4 - 11 mmol/L | [facility] | | | | | | LABORATORY | | | | | | SERVICES, | | | | | | CORE | | + + + + + + | ANION | 8 | 4 - 11 mmol/L | [facility] | | | GAP(ALB | | | LABORATORY | | | CORRECTED) | | | SERVICES, | | | | | | CORE | | + + + + + + | POTASSIUM | No Hemo | | [facility] | | | CMNT | | | LABORATORY | | | | | | SERVICES, | | | | | | CORE | | + + + + + + | BILI T CMNT | No Hemo | | [facility] | | | | | | LABORATORY | | | | | | SERVICES, | | | | | | CORE | | + + + + + + | AST CMNT | No Hemo | | [facility] | | | | | | LABORATORY | | | | | | SERVICES, | | | | | | CORE | | + + + + + + + + | Specimen | + + | Blood - Blood | | (substance) | + + + + + | Narrative | Performed At | + + + | GFR is estimated using the MDRD equation recommended by the National | [facility] | | Kidney Disease Education Program. Estimated GFR Interpretive | LABORATORY | | Information: <60 mL/min/1.73 sq m Chronic Kidney | SERVICES, CORE | | Disease <15 mL/min/1.73 sq m Kidney Failure | | | Estimated GFR greater than 60 mL/min/1.73 sq m is of limited clinical | | | value. The MDRD equation is not valid in the following situations: | | | - Patients under 18 years of age - Severe malnutrition or obesity | | | - Vegetarian diet - Rapidly changing kidney function - Amputees, | | | paraplegics, or other muscle-wasting diseases | | + + + + + + + + | Performing | Address | City/State/Zipcode | Phone Number | | Organization | | | | + + + + + | [facility] | [address] | [place] [address] | | | SERVICES, CORE | [address] | | | + + + + + SOCORRO DUNHAM (07/10/2019 12:00 AM PST) + + + | Narrative | Performed At | + + + | | | + + + documented in this encounter Visit Diagnoses + + | Diagnosis | + + | Lower GI bleed - Primary Hemorrhage of gastrointestinal tract, unspecified | + + documented in this encounter Administered Medications + +--------+ + +------+------+ | Medication Order | MAR | Action | Dose | Rate | Site | | | Action | Date | | | | + +--------+ + +------+------+ | acetaminophen (TYLENOL) tablet | Given | 07/12/20 | 1,000 mg | | | | 1,000 mg 1,000 mg, oral, EVERY 6 | | 19 5:58 | | | | | HOURS NEEDED, Starting Sun | | PM PST | | | | | 07/12/19 at 1703, Until Tue | | | | | | | 07/14/19 at 1918, headache | | | | | | + +--------+ + +------+------+ + +---+ | | | + +---+ | melatonin tablet 3 mg 3 mg, | | | oral, AT BEDTIME NEEDED, | | | Starting 07/10/19 at 2233, | | | Until Tu07/14/19 at 1918, | | | insomnia | | + +---+ | | | + +---+ + +-------+ +--------+---+---+ | menthol-zinc oxide (COUGH | Given | 07/12/20 | 5.8 mg | | | | DROPS) lozenge lozg 5.8 mg 5.8 | | 19 7:13 | | | | | mg (1 lozenge), oral, NEEDED, | | AM PST | | | | | Starting 07/11/19 at 0529, | | | | | | | Until 07/14/19 at 1919, sore | | | | | | | throat, cough | | | | | | + +-------+ +--------+---+---+ +-------+ +--------+---+---+ | Given | 07/11/20 | 5.8 mg | | | | | 19 9:20 | | | | | | AM PST | | | | +-------+ +--------+---+---+ | Given | 07/11/20 | 5.8 mg | | | | | 19 5:54 | | | | | | AM PST | | | | +-------+ +--------+---+---+ + +---+ | | | + +---+ | methyl salicylate-menthol (ICY | | | HOT) ointment topical, | | | NEEDED, Starting Sat07/10/19 at | | | 2318, Until Sat07/14/19 at 1919, | | | mild pain, for comfort | | + +---+ | | | + +---+ + +-------+ + +---+---+ | peg-electrolyte (GOLYTELY) | Given | 07/10/20 | 2,000 mL | | | | liquid 2,000 mL 2,000 mL, oral, | | 19 2:48 | | | | | ONCE, 1 dose, Sat07/10/19 at | | PM PST | | | | | 1230 | | | | | | + +-------+ + +---+---+ +---+---+ | | | +---+---+ + +-------+ + +---+---+ | peg-electrolyte (GOLYTELY) | Given | 07/11/20 | 2,000 mL | | | | liquid 2,000 mL 2,000 mL, oral, | | 19 12:17 | | | | | ONCE, 1 dose, 07/10/19 at | | AM PST | | | | | 1700 | | | | | | + +-------+ + +---+---+ +---+---+ | | | +---+---+ + +-------+ + +---+---+ | peg-electrolyte (GOLYTELY) | Given | 07/11/20 | 2,000 mL | | | | liquid 2,000 mL 2,000 mL, oral, | | 19 5:30 | | | | | ONCE, 1 dose, 07/11/19 at | | AM PST | | | | | 0500 | | | | | | + +-------+ + +---+---+ +---+---+ | | | +---+---+ + +-------+ + +---+---+ | peg-electrolyte (GOLYTELY) | Given | 07/11/20 | 2,000 mL | | | | liquid 2,000 mL 2,000 mL, oral, | | 19 9:59 | | | | | ONCE, 1 dose, 07/11/19 at | | PM PST | | | | | 1900 | | | | | | + +-------+ + +---+---+ +---+---+ | | | +---+---+ + +-------+ + +---+---+ | peg-electrolyte (GOLYTELY) | Given | 07/12/20 | 2,000 mL | | | | liquid 2,000 mL 2,000 mL, oral, | | 19 12:03 | | | | | ONCE, 1 dose, 07/12/19 at 0000 | | AM PST | | | | + +-------+ + +---+---+ +---+---+ | | | +---+---+ + +-------+ + +---+---+ | peg-electrolyte (GOLYTELY) | Given | 07/13/20 | 2,000 mL | | | | liquid 2,000 mL 2,000 mL, oral, | | 19 5:12 | | | | | ONCE, 1 dose, 07/13/19 at 0500 | | AM PST | | | | + +-------+ + +---+---+ +---+---+ | | | +---+---+ + +---------+ +-------+-------+---+ | sodium chloride 0.9 % (NS) IV | New Bag | 07/13/20 | 100 | 100 | | | infusion 100 mL/hr, intravenous, | | 19 12:55 | mL/hr | mL/hr | | | PROCEDURE CONTINUOUS, Starting | | PM PST | | | | | 07/13/19 at 0700, Until Mon | | | | | | | 07/13/19 at 1704 | | | | | | + +---------+ +-------+-------+---+ +---+---+ | | | +---+---+ documented in this encounter
--- OUTSIDE RECORDS SUMMARY | ~2019-12-21 | XMS | Encounter Summary ---
Demographics + + + | Address | [address] [address] | | | [place] [address] | + + + | Home Phone | | + + + | Preferred Language | Unknown | + + + | Marital Status | Single | + + + | Congregational Affiliation | 1077 | + + + | Race | Unknown | + + + | Ethnic Group | Unknown | + + + Author + + + | Author | [facility] | | | and [place] | + + + | Organization | [facility] | | | and [...] Team Providers + +------+ + | Care Hub Bander Name | Role | Phone | + +------+ + | Sarah Carroll MD | PCP | | + +------+ + Encounter Details +--------+ + + + + | Date | Type | Department | Care Team | Description | +--------+ + + + + | 07/11/ | Orders Only | [facility] | Conversion | | | 2018 | | NEPRHOLOGY [facility] | Transaction, | | | | | [address] | Provider Unknown | | | | | [address] [place], [place] | [phone] | | | | | [address] | | | | | | [phone] | | | +--------+ + + + [...] | | | | | | [facility] | | | | | | [address] | | | | | | | [...]
--- OUTSIDE RECORDS SUMMARY | ~2019-12-21 | XMS | Encounter Summary ---
Demographics + + + | Address | [address] | | | [place] [address] | + + + | Home Phone | | + + + | Preferred Language | Unknown | + + + | Marital Status | Single | + + + | Cheondoism Affiliation | LDS | + + + | Race | White | + + + | Ethnic Group | Not or | + + + Author + + + | Author | [facility] | + + + | Organization | [facility] | + + + | Address | Unknown | + + + | Phone | Unavailable | + + + Support + + + + + | Name | Relationship | Address | Phone | + + + + + | Toby Latham | [place] | [address] | | | | | [place] | | | | | [address] | | + + + + + Care Team Providers + +------+ + | Care Amphibious Operations Officer Name | Role | Phone | [...] | Procedural Unit | MD Steven [address] [facility] | | | | | ([facility]) at [facility] [address] | | | | | [address] | [place], [place] | | | | | Mailcode: [place] | [address] | | | | | for [facility] and | [phone] | | | | | [facility] [address] | | | | | | [place], [place] | | | | | | [address] | | | | | | [phone] | | | +--------+ + + + [...] Call the endoscopy department toll free ext. [phone] or After business hours or on weekends and holidays call the Hospital Dry Cleaning Manager toll free [phone] Ext. [phone] or and have the GI doctor production machine shop supervisor paged. The provider who performed your procedure [...] 11:54 AM PDT PRE PROCEDURE NOTE: MR# [id number] Subjective: Aaron Latham is a 59 y.o. [...] | 2019 | Visit | | [address] [facility] | | | | | | [facility] | | | | | | [place], [place] | | | | | | [address] | | | | | | [phone] | | | | | | | [...] 0.9 - 1.2 INR | [facility], | | | TIME | | [...] + + | [facility] | [address] | [place] [address] | | | OF CARE TESTS | | | | + + + + + COLONOSCOPY (04/14/2019 11:50 AM PDT) + + | Specimen | + + | | + + + + + | Narrative | Performed At | + + + | MRN: | [facility] | | [id number] Date: 04/14/2019Patient Name: Aaron Justin #: | ENDOSCOPY | | [id number] of : 1960SN: [id number] Type: | | | AmbulatoryRoom: Endo 5Procedure: [...] RN (Nurse), NGHIA YBARRA | | | (Automotive Service Writer), PADMAJA ROSS | | | (Automotive Service Writer)Referring MD: JACK TINOCO JR, | | | [...] the procedure. The Olympus | | | [id number] Colonoscope #[id number] was introduced | | | through the [...] questions, please contact the | | | reimbursement spec. - Stop | | | anticoagulation (coumadin) [...]
--- OUTSIDE RECORDS SUMMARY | ~2019-12-21 | XMS | Encounter Summary ---
Demographics + + + | Address | [address] | | | [place] [address] | + + + | Home Phone | | + + + | Preferred Language | Unknown | + + + | Marital Status | Single | + + + | Restoration Affiliation | LDS | + + + | Race | White | + + + | Ethnic Group | Not or | + + + Author + + + | Author | [facility] | + + + | Organization | [facility] | + + + | Address | Unknown | + + + | Phone | Unavailable | + + + Support + + + + + | Name | Relationship | Address | Phone | + + + + + | Toby Latham | [place] | [address] | | | | | [place] | | | | | [address] | | + + + + + Care Team Providers + +------+ + | Care Performing Arts Technicians Name | Role | Phone | + [...] | Encounter | [address] | ,[facility] [address] | | | | | [place], [place] | [address] | | | 07/14/ | | [address] | [place], [place] | | | 2018 | | [phone] | [address] | | | | | | [phone] | | | | | | | | | | | | Kath Silva MD | | | | | | [address] | | | | | | [address] [place], | | | | | | [place] [address] | | | | | | [phone] | | | | | | | | | | | | Bety Jameson MD | | | | | | [address] | | | | | | [address] [place], | | | | | | [place] [address] | | | | | | [phone] | | | | | | | [...] Jameson MD - 07/14/2019 8:27 AM PST [facility] Discharge Summary Discharging Provider: BETY JAMESON MD [...] due to recent polypectomy: Patient had resumed [facility] home warfarin following procedure, although INR was [...] go to get your blood ch ecked ([facility]). It was a pleasure taking care of you! Other Orders & Follow-up Plan OTHER DISCHARGE ORDERS & INSTRUCTIONS INR - External Order Standing Status: Future Expected By: 07/16/19 Standing Exp. Date: 08/13/20 AC clinic at [facility] to follow (patient established there) Follow Up: Future Appointments Provider Department Dept Phone Center 09/10/2019 1:20 PM [facility] at [facility] [phone] Orthopedics Discharge Physical Exam: Last 24 hour [...] no c/c/e BETY JAMESON MD Pager - [phone] shape hand Division of Hospital Medicine I spent more than 35 minutes [id number] with the patient of which greater than [...] Kath Silva MD Division of Hospital Medicine [facility] [place] Pager [phone] maAmberly jorge MD - 1 09/13/2018 3:08 [...] MS Fellow, Gastroenterology and Hepatology PGY-4 Pager [phone] GI Pager: [phone]) mador, Amberly Brink MD - 07/13/2019 6:54 [...] MD, MS Fellow, Gastroenterology and Hepatology Pager: [phone] signed by Amberly Morgan MD at 07/13/2019 6:54 AM PSTDuane Eisenberg MD - 07/12/2019 4:55 PM PSTBrief GI Note Unfortunately due to volume of urgent/emergent cases in [facility], unable to perform colonos copy today. Case [...] PM PST Pre Sedation Endoscopy Note: MR# [id number] Subjective: Aaron Latham is a 59 y.o. [...] Kath Silva MD Division of Hospital Medicine [facility] [place] Pager [phone] I spent 30 minutes on the patient [...] Kath Silva MD Division of Hospital Medicine [facility] Pager [phone] Duane Altamirano MD - 07/11/2019 4:26 PM [...] with above. Duane Field Gastroenterology Fellow Pager: [phone] IE/S: Hgb 8.3 -> 8.0 -> 7.9 [...] made modifications to such information, when appropriate. Duane Field MD - 07/11/2019 9:33 AM PSTFormatting of this note might be different fr om the original. Pre Sedation Endoscopy Note: MR# [id number] Subjective: Aaron Latham is a 59 y.o. [...] | | 2019 | Visit | | [address] | | | | | | [address] | | | | | | [place], [place] | | | | | | [address] | | | | | | [phone] | | | | | | | [...] | | | LABORATORY | | | [place]ESE | | | SERVICES, | | | [...] MDRD equation recommended by the National | [facility] | | Kidney Disease Education Program. [...] | + + + + + | [facility] | [address] | [place] [address] | | | SERVICES, CORE | [address] | | | + + + + + COLONOSCOPY (07/13/2019 12:54 PM PST) + + | Specimen | + + | | + + + + + | Narrative | Performed At | + + + | MRN: | [facility] | | [id number] Date: 07/13/2019Patient Name: Aaron Justin #: | ENDOSCOPY | | [id number] of : 1960SN: [id number] Type: | | | InpatientRoom: GI 3Procedure: ColonoscopyIndications: | | | Rectal bleeding; post polypectomy bleedProviders: | | | MILAD CAMPBELL MD (Doctor), CATARINA SOLIMAN RN | | | (Nurse), JAYANT KELLY (Medical Lab Director), | | | AMBERLY MORGAN MD (Fellow)Referring [...] the procedure. | | | The Olympus [id number] Colonoscope #[id number] was | | | introduced through the [...] evaluated | | | using the BBPS ([place] Bowel | | | Preparation Scale). The [...] of Addenda: 0Note Initiated On: 07/13/2019 12:54 [facility] Letter | | | to: SARAH GUTIERREZ MD, CHARLES VASQUEZ MD | | |ABMERLY MORGAN MD | | |Number of Addenda: [...] | [address] | [place] [address] | | | SERVICES, CORE | PARK [...] | | | LABORATORY | | | GUYANESE | | | SERVICES, | | | [...] | + + + + + | [facility] | [address] | [place] [address] | | | SUSANA CARTAGENA | PARK [...] | + + + + + | [facility] | [address] | [place] [address] | | | SERVICES, CORE | NIKKI [...] | | | LABORATORY | | | GUYANESE | | | SERVICES, | | | [...] MDRD equation recommended by the National | [facility] | | Kidney Disease Education Program. [...] + + | [facility] | [address] | [place] [address] | | | SERVICES, CORE | PARK [...] | [address] | [place] [address] | | | SERVICES, | [address] [...] | [address] | [place] [address] | | | SERVICES, | [address] [...] + + | [facility] | [address] | [place] [address] | | | SERVICES, | [address] [...] | + + + + + | [facility] | [address] | [place] [address] | | | SERVICES, CORE | NIKKI [...] | [address] | [place] [address] | | | SERVICES, CORE | NIKKI [...] | [address] | [place] [address] | | | SERVICES, CORE | PARK [...] | | | LABORATORY | | | GUYANESE | | | SERVICES, | | | [...] MDRD equation recommended by the National | [facility] | | Kidney Disease Education Program. Estimated [...] | + + + + + | [facility] | [address] | [place] [address] | | | SERVICES, CORE | NIKKI [...]
--- OUTSIDE RECORDS SUMMARY | ~2019-12-21 | XMS | Encounter Summary ---
Demographics + + + | Address | [address] [address] | | | [place] [address] | + + + | Home Phone | | + + + | Preferred Language | Unknown | + + + | Marital Status | Single | + + + | Religion Affiliation | 1077 | + + + | Race | Unknown | + + + | Ethnic Group | Unknown | + + + Author + + + | Author | [facility] | | | and [place] | + + + | Organization | [facility] | | | [...] Providers + +------+ + | Care Director Emergency Name | Role | Phone | + +------+ + | Sarah Carroll MD | PCP | | + +------+ + Encounter Details +--------+ + + + + | Date | Type | Department | Care Team | Description | +--------+ + + + + | 07/18/ | Orders Only | [facility] | Conversion | | | 2017 | | [address] | Transaction, | | | | | [address] | Provider Unknown | | | | | [address] | [phone] | | | | | [phone] | | | +--------+ + + + [...] [place] | | | | | | [address] | | | | | | | | +--------+---------+ + + + documented as of this encounter Procedures + +--------+ + + + | Procedure Name | Priori | Date/Time | Associated Diagnosis | Comments | | | ty | | | | + +--------+ + + + | URINALYSIS | Routin | 07/18/2017 | | Results for this | | | e | 12:00 AM | | procedure are in the | | | | PST | | results section. | + +--------+ + + + documented in this encounter Results Urinalysis (07/18/2017 12:00 AM PST) + +-------+ + + + | Component | Value | Ref Range | Performed | Pathologist | | | | | At | Signature | + +-------+ + + + | Blood, | neg | | EXTERNAL | | | Urine | | | LAB | | + +-------+ + + + | Glucose, | neg | | EXTERNAL | | | Urine | | | LAB | | + +-------+ + + + | Leukocyte | neg | | EXTERNAL | | | Esterase, | | | LAB | | | Urine | | | | | + +-------+ + + + | Nitrite, | neg | | EXTERNAL | | | Urine | | | LAB | | + +-------+ + + + | pH, Urine | 7.0 | | EXTERNAL | | | | | | LAB | | + +-------+ + + + | Protein, | neg | | EXTERNAL | | | Urine [...]
--- OUTSIDE RECORDS SUMMARY | ~2019-12-21 | XMS | Encounter Summary ---
Demographics + + + | Address | [address] [address] | | | [place] [address] | + + + | Home Phone | | + + + | Preferred Language | Unknown | + + + | Marital Status | Single | + + + | Christian Affiliation | 1077 | + + + | Race | Unknown | + + + | Ethnic Group | Unknown | + + + Author + + + | Author | [facility] | | | and [place] | + + + | Organization | [facility] | | [...] Team Providers + +------+ + | Care [employer] Specialist Name | Role | Phone | [...] | | | | Peritoneal | | [address] Phone: | | | | | adhesion | | [phone] | | | | | Procedures | | Fax: | | | | | [place] | | [phone] | | | | | BOWEL | | | | | | | ADHESION,ENT | | | | | | | EROLYSIS AR | | | | | | | LAP, | | | | | | | RADICAL | | | | | | | NEPHRECTOMY | | | +--------+--------+ + + + + Encounter Details +--------+ + + + + | Date | Type | Department | Care Team | Description | +--------+ + + + + | 06/11/ | Anesthesia | [facility] | Feliberto Beltran, | | | 2018 | Event | [facility] | MD [address] | | | | | OP [address] | [place] [address] | | | | | [place] | [phone] | | | | | [address] | | | | | | [phone] | Leyla Lepe, | | | | | | SAP PP CONSULTANT [address] | | | | | | [place] | | | | | | [id number] | | | | | | | | +--------+ + + + + Anesthesia Record + + + + + | Procedure Name | Responsible | Anesthesia Start | Anesthesia Stop Time | | | Anesthesiologist | Time | | + + + + + | LEFT LAPAROSCOPIC | Feliberto Beltran MD | 06/11/18 1312 | 06/11/18 4159 | | NEPHRECTOMY WITH | | | | | NODE DISSECTION AND | | | | | LAPAROSCOPIC LYSIS | | | | | OF ADHESIONS (Left | | | | | Abdomen) | | | | + + + + + +----+---+ + + | Da | T | Event | Comment | | te | i | | | | | m | | | | | e | | | +----+---+ + + | 10 | 1 | An Checkout | Pre-use anesthesia machine/equipment checkout. | | /3 | 2 | | | | 1/ | 4 | | | | 20 | 7 | | | | 18 | | | | +----+---+ + + | | 1 | | | | | 3 | | | | | 0 | | | | | 1 | | | +----+---+ + + | | 1 | An Start | Reassessment prior to anesthesia induction/procedure. | | | 3 | | | | | 1 | | | | | 2 | | | +----+---+ + + | | 1 | Preoxygenat | | | | 3 | ed | | | | 1 | | | | | 8 | | | +----+---+ + + | | 1 | An | | | | 3 | Induction | | | | 2 | | | | | 1 | | | +----+---+ + + | | 1 | An | | | | 3 | Intubation | | | | 2 | | | | | 4 | | | +----+---+ + + | | 1 | Art Line | | | | 3 | Start | | | | 2 | | | | | 6 | | | +----+---+ + + | | 1 | Art Line | | | | 3 | Stop | | | | 3 | | | | | 0 | | | +----+---+ + + | | 1 | an verónica now | | | | 3 | | | | | 4 | | | | | 2 | | | +----+---+ + + | | 1 | Pre-Procedu | | | | 3 | ral Timeout | | | | 4 | Completed | | | | 2 | | | +----+---+ + + | | 1 | [place] | | | | 3 | 43-degrees | | | | 4 | | | | | 5 | | | +----+---+ + + | | 1 | First | | | | 3 | Inc/Proc St | | | | 4 | | | | | 5 | | | +----+---+ + + | | 1 | Block Start | Left sided TAP block | | | 5 | | | | | 4 | | | | | 5 | | | +----+---+ + + | | 1 | AN Block | | | | 5 | End | | | | 5 | | | | | 0 | | | +----+---+ + + | | 1 | AN No | TOF 4/4 with sustained tetanus. | | | 5 | Residual | | | | 5 | NMB | | | | 1 | | | +----+---+ + + | | 1 | Breathing | | | | 5 | Spontaneous | | | | 5 | ly | | | | 3 | | | +----+---+ + + | | 1 | [place] off | | | | 5 | | | | | 5 | | | | | 5 | | | +----+---+ + + | | 1 | Extubated | | | | 5 | Awake | | | | 5 | | | | | 5 | | | +----+---+ + + | | 1 | An Stop | Patient handed off to recovery nurse. | | | 5 | | | | | 9 | | | +----+---+ + + +------+ | Meds | +------+ + + + | Name | Total | + + + | fentaNYL | 250 mcg | + + + | HYDROmorphone | 2 mg | + + + | propofol | 400 mg | + + + | rocuronium | 100 mg | + + + | ondansetron | 4 mg | + + + | glycopyrrolate | 0.2 mg | + + + | sugammadex | 350 mg | + + + | ceFAZolin (ANCEF, KEFZOL) 100 | 3 g | | mg/mL IV syringe 2 g | | + + + | ropivacaine 0.5% + EPINEPHrine | 30 mL | | 1:400,000 in 30 ml Syringe | | | infiltration 30 mL | | + + + | lactated ringers (LR) infusion | 1,500 mL | + + + + + | Name | + + | N2O Flow Rate (L/Min) | + + | O2 Flow Rate (L/Min) | + + | Insp O2 | + + | Exp N2O | + + | Exp SEV | + + | Air Flow Rate (L/Min) | + + + + | No blood administrations on file. | + + +--------+ + + + | Type | Details | Placement | Removal | +--------+ + + + | Brace/ | abdominal binder; 06/11/18; 1311 | 08/17/179 by | 06/11/181310 by | | Orthot | | | Chapincito Shultz RN | | ic/Ort | | | | | hosis | | | | +--------+ + + + | Periph | 08/16/17; 930; Right; Wrist; | 08/16/17930 by | 06/11/181310 by | | eral | gauge; Hematology, [...] | | +--------+ + + + | Periph | 06/11/18; 1250; Left; Hand; | 06/11/18 1250 by | 06/12/18 0722 by | | cherelle | [id number]-[id number] catheter system; | Myla Vega RN | Helen Pearson, | | IV | 18 gauge, 1 1/4 in length; Blood | | RN | | | Bank; intradermal injection, | | | | | tolerated well; site symptomatic, | | | | | removed per policy/procedure, | | | | | catheter/device intact; 06/12/18; | | | | | 0722 | | | +--------+ + + + | Airway | Placement Date: 06/11/18; | 06/11/18 1324 by | 06/11/18 1555 by | | | Placement Time: 1324 (created via | Leyla Lepe, | Leyla Lepe, | | | procedure documentation); Mask | SAP PP CONSULTANT | SAP PP CONSULTANT | | | Ventilation: EZ w/OA; Airway | | | | | Grade: 1; Successful Technique: | | | | | video scope; Laryngoscope Blade | | | | | Size: 3; Attempts: 2; Airway | | | | | Type: endotracheal; Size: 8; | | | | | Airway Tube Secured At: 22; | | | | | Trauma: none; Other Equipment: | | | | | stylette; Placement Check: | | | | | exhaled CO2 detection device, | | | | | bilateral chest rise, breath | | | | | sounds equal bilaterally; Removal | | | | | Date: 06/11/18; Removal Time: | | | | | 1555 | | | +--------+ + + + | Arteri | 06/11/18; 1330 (created via | 06/11/18 1330 by | 06/11/18 1700 by | | al | procedure documentation); | Alex Mckeon MD | Lb Patton, | | Line | Chlorhexidine/Isopropyl Alcohol; | | RN | | | under GA; Left; radial artery; | | | | | continuous blood pressure | | | | | monitoring; landmarks; other (see | | | | | comments); Was DC'ed before pt | | | | | came to 5S.; 06/11/18; 1700 | | | +--------+ + + + | Urethr | 06/11/18; 1330; indicated due to | 06/11/18 1330 by | 06/12/18 0652 by | | al | specific surgical procedure; All | Danielle Buck V RN | Helen Pearson, | | Cathet | elements; All elements; All | | RN | | er | elements; indwelling double lumen | | | | | catheter; 100% silicone; 16; | | | | | None; 1; 10; 10; other (see | | | | | comments) (general anesthesia); | | | | | drainage bag to dependent | | | | | drainage; urethral catheter | | | | | removed, tubing intact, per | | | | | protocol/policy; placed by | | | | | surgeon Cross ; 06/12/18; 0652 | | | +--------+ + + + | Periph | 06/11/18; 1340 (created via | 06/11/18 1340 by | 06/16/18 1237 by | | eral | procedure documentation); Right; | Leyla Lepe, | Teresita Rodgers RN | | IV | Forearm; 18 gauge; 06/16/18; 1237 | SAP PP CONSULTANT | | +--------+ + + + | Read | 06/11/18; 1613; Left; abdomen; | 06/11/18 1613 by | 11/04/18 1342 by | | only - | skin glue to incision sites X2; | Danielle Gallegos RN | User Epic | | | 11/04/18 (Completed/Removed by | | | | Incisi | Utility); 1342 (Completed/Removed | | | | on | by Utility) | | | +--------+ + + + [...] [place] | | | | | | [address] | | | | | | | | +--------+---------+ + + + documented as of this encounter Procedures + +--------+ + + + | Procedure Name | Priori | Date/Time | Associated Diagnosis | Comments | | | ty | | | | + +--------+ + + + | ANE NERVE BLOCK | Routin | 06/11/2018 | | Results for this | | CATHETER NOTE | e | 5:49 PM | | procedure are in the | | | | PDT | | results section. | + +--------+ + + + | ANE PERIPHERAL IV | Routin | 06/11/2018 | | Results for this | | LINE NOTE | e | 1:55 PM | | procedure are in the | | | | PDT | | results section. | + +--------+ + + + | ANE ARTERIAL LINE | Routin | 06/11/2018 | | Results for this | | NOTE | e | 1:52 PM | | procedure are in the | | | | PDT | | results section. | + +--------+ + + + | ANE AIRWAY NOTE | Routin | 06/11/2018 | | Results for this | | | e | 1:51 PM | | procedure are in the | | | | PDT | | results section. | + +--------+ + + + documented in this encounter Results Anesthesia Perineural Note (06/11/2018 5:49 PM PDT) + + + | Narrative | Performed At | + + + | Feliberto Beltran MD 06/11/2018 17:50 Perineural Procedure | | | Note 06/11/2018 15:50 Nerve block: transverse abdominis plane | | | Laterality: left Continuous block with catheter: No Provider | | | requested procedure: MD Tay Indication: postoperative analgesia | | | and acute pain management Patient position: supine Preparation: | | | chlorhexidine/isopropyl alcohol Introducer used: no Technique: | | | ultrasound Radiology image stored in patient's chart: ultrasound | | | Needle: stimulating and short-bevel Needle size: 21 g Needle length: | | | 4 in Medication administered through: needle and incremental | | | injection Negative findings: no blood aspirated and no air aspirated | | | Test response dose: negative Total volume of local anesthetic | | | solution administered: 30 mL Attempts: 1 Ease of procedure: | | | difficult (Large abdomen) Please see anesthesia record or | | | flowsheet for vital sign documentation and see anesthesia record or | | | MAR for all medication documentation. Performing provider: | | | FELIBERTO BELTRAN Electronically Signed by: Feliberto Beltran | | | ESig date/time: 06/11/2018 17:50 | | | | | + + + + + | Procedure Note | + + | Feliberto Beltran MD - 06/11/2018 5:49 PM PDT Perineural Procedure Note06/11/2018 | | 15:50Nerve block: transverse abdominis planeLaterality: leftContinuous block with | | catheter: NoProvider requested procedure: MD TayIndication: postoperative analgesia | | and acute pain managementPatient position: supinePreparation: chlorhexidine/isopropyl | | alcoholIntroducer used: noTechnique: ultrasoundRadiology image stored in patient's | | chart: ultrasoundNeedle: stimulating and short-bevelNeedle size: 21 gNeedle length: 4 | | inMedication administered through: needle and incremental injectionNegative findings: no | | blood aspirated and no air aspiratedTest response dose: negativeTotal volume of local | | anesthetic solution administered: 30 mLAttempts: 1Ease of procedure: difficult (Large | | abdomen)Please see anesthesia record or flowsheet for vital sign documentation and see | | anesthesia record or MAR for all medication documentation.Performing provider: KIKA | | FELIBERTOElectronically Signed by: MD Cassandra Bello date/time: | | 06/11/2018 17:50 | |Needle: stimulating and short-bevel | |Needle size: 21 g | |Needle length: 4 in | |Medication administered through: needle and incremental injection | |Negative findings: no blood aspirated and no air aspirated | |Test response dose: negative | |Total volume of local anesthetic solution administered: 30 mL | |Attempts: 1 | |Ease of procedure: difficult (Large abdomen) | | | | | |Please see anesthesia record or flowsheet for vital sign documentation and see anesthesia r ecord or MAR for all medication documentation. | | | | | |Performing provider: FELIBERTO BELTRAN | | | | | | | |Electronically Signed by: MD Cassandra Bello date/time: 8 17:50 | + + Anesthesia Peripheral IV Note (06/11/2018 1:55 PM PDT) + + + | Narrative | Performed At | + + + | Leyla Lepe CRNA 06/11/2018 13:58 Intravenous Line | | | Placement 06/11/2018 13:40 Indication: necessitating | | | physician/[employer] PP CONSULTANT skill Preparation: chlorhexidine/isopropyl alcohol | | | patient was: under GA Side: right Vein location: forearm Size: 18 g | | | Localization technique: landmark Securement: transparent dressing | | | and tape Placed by: LEYLA LEPE Electronically | | | Signed by: SANCHEZ Rogersg | | | date/time: 06/11/2018 13:55 | | + + + + + | Procedure Note | + + | Leyla Lepe CRNA - 06/11/2018 1:55 PM PDT Intravenous Line | | Onpqzhuyg29/31/2018 13:40Indication: necessitating physician/[employer] PP CONSULTANT skillPreparation: | | chlorhexidine/isopropyl alcoholpatient was: under GASide: rightVein location: | | forearmSize: 18 g Localization technique: landmarkSecurement: transparent dressing and | | tapePlaced by: LEYLA LEPEElectronically Signed by: Leyla Lepe CRNA | | ESi date/time: 06/11/2018 13:55 | |patient was: under GA | |Side: right | |Vein location: forearm | |Size: 18 g | |Localization technique: landmark | |Securement: transparent dressing and tape | |Placed by: LEYLA LEPE | | | | | |Electronically Signed by: Leyla Lepe CRNA [facility] date/time: 05/14 13:55 | + + Anesthesia Arterial Line Note (06/11/2018 1:52 PM PDT) + + + | Narrative | Performed At | + + + | Leyla Lepe CRNA 06/11/2018 13:54 Arterial Line | | | Placement 06/11/2018 13:30 Indication: continuous blood pressure | | | monitoring Prep solution: chlorhexidine/isoproplyl alcohol Patient | | | was: under GA Laterality: left Artery:radial Size: 21 g | | | Localization technique: landmark Securement: tape and transparent | | | dressing Performed by: ALEX MCKEON Electronically Signed | | | by: Leyla Lepe CRNA ESig | | | date/time: 06/11/2018 13:52 | | + + + + + | Procedure Note | + + | Leyla Lepe CRNA - 06/11/2018 1:52 PM PDT Arterial Line Aodmrnhjq77/31/2018 | | 13:30Indication: continuous blood pressure monitoringPrep solution: | | chlorhexidine/isoproplyl alcoholPatient was: under GALaterality: leftArtery:radialSize: | | 21 gLocalization technique: landmarkSecurement: tape and transparent dressingPerformed | | by: ALEX MCKEON LElectronically Signed by: Leyla Lepe CRNA | | ESi date/time: 06/11/2018 13:52 | |Laterality: left | |Artery:radial | |Size: 21 g | |Localization technique: landmark | |Securement: tape and transparent dressing | |Performed by: ALEX MCKEON | | | | | |Electronically Signed by: Leyla Lepe CRNA ESi date/time: 05/14 13:52 | + + Anesthesia Airway Note (06/11/2018 1:51 PM PDT) + + + | Narrative | Performed At | + + + | Leyla Lepe CRNA 06/11/2018 13:52 Anesthesia Airway | | | Placement 06/11/2018 13:24 Preprocedure check: patient | | | identified, oxygen, airway assessed, suction, airway equipment | | | checked and patient reassessment prior to induction Rapid Sequence | | | Induction: no Mask ventilation: easy with oral airway External | | | maneuver: ramp position Successful technique: videoscope | | | Laryngoscope blade size: 3 Airway grade: 1 (Full view of glottis) | | | Other equipment: stylette Attempts: 2 Airway type: endotracheal | | | Size: 8 Cuffed: cuffed Route, reference point: right side of mouth | | | Tube depth: 22 cm Tube secured with: adhesive tape Trauma: none | | | Tube placement verification: bilateral chest rise, equal bilateral | | | breath sounds and carbon dioxide detection Performing provider: | | | LEYLA LEPE Electronically Signed by: Leyla Sequeira | | | SANCHEZ Lepe ESig date/time: | | | 06/11/2018 13:51 | | + + + + + | Procedure Note | + + | Leyla Lepe CRNA - 06/11/2018 1:51 PM PDT Anesthesia Airway | | Gtqgswvlm98/31/2018 13:24Preprocedure check: patient identified, oxygen, airway | | assessed, suction, airway equipment checked and patient reassessment prior to | | inductionRapid Sequence Induction: noMask ventilation: easy with oral airwayExternal | | maneuver: ramp positionSuccessful technique: videoscopeLaryngoscope blade size: 3 | | Airway grade: 1 (Full view of glottis)Other equipment: styletteAttempts: 2Airway type: | | endotrachealSize: 8Cuffed: cuffedRoute, reference point: right side of mouthTube depth: | | 22 cmTube secured with: adhesive tapeTrauma: noneTube placement verification: bilateral | | chest rise, equal bilateral breath sounds and carbon dioxide detectionPerforming | | provider: LEYLA LEPEElectronically Signed by: Leyla Lepe CRNA | | ESig date/time: 06/11/2018 13:51 | |Attempts: 2 | |Airway type: endotracheal | |Size: 8 | |Cuffed: cuffed | |Route, reference point: right side of mouth | |Tube depth: 22 cm | |Tube secured with: adhesive tape | |Trauma: none | |Tube placement verification: bilateral chest rise, equal bilateral breath sounds and carbon dioxide detection | |Performing provider: LEYLA LEPE | | | | | |Electronically Signed by: Leyla Lepe CRNA ESig date/radu e: 06/11/2018 13:51 | | | + + documented in this encounter Visit Diagnoses Not on filedocumented in this encounter Administered Medications + +--------+ +------+------+------+ | Medication Order | MAR | Action | Dose | Rate | Site | | | Action | Date | | | | + +--------+ +------+------+------+ | ceFAZolin (ANCEF, KEFZOL) 100 | Given | 06/11/20 | 3 g | | | | mg/mL IV syringe 2 g 2 g, | | 18 1:42 | | | | | Intravenous, Administer over 30 | | PM PDT | | | | | Minutes, Prior to Incision, | | | | | | | Starting Sat06/11/18 at 1207, | | | | | | | For 1 dose, Administer in OR, | | | | | | | within 1 hour of surgical | | | | | | | incision. Adjust administration | | | | | | | schedule to match OR schedule., | | | | | | | Pre-op, Indications: Surgical | | | | | | | Prophylaxis | | | | | | + +--------+ +------+------+------+ +---+---+ | | | +---+---+ + +-------+ +---------+---+---+ | fentaNYL (PF) injection | Given | 06/11/20 | 100 mcg | | | | Intravenous, PRN, Pain, Starting | | 18 1:58 | | | | | Sat06/11/18 at 1321, Anesthesia | | PM PDT | | | | | Intra-op | | | | | | + +-------+ +---------+---+---+ +-------+ +---------+---+---+ | Given | 06/11/20 | 150 mcg | | | | | 18 1:21 | | | | | | PM PDT | | | | +-------+ +---------+---+---+ +---+---+ | | | +---+---+ + +-------+ +--------+---+---+ | glycopyrrolate (ROBINUL) | Given | 06/11/20 | 0.2 mg | | | | injection Intravenous, PRN, | | 18 1:50 | | | | | Secretions, Starting 06/11/18 | | PM PDT | | | | | at 1350, Anesthesia Intra-op | | | | | | + +-------+ +--------+---+---+ +---+---+ | | | +---+---+ + +-------+ +--------+---+---+ | HYDROmorphone (DILAUDID) 2 | Given | 06/11/20 | 0.6 mg | | | | mg/mL injection Intravenous, | | 18 3:26 | | | | | PRN, Pain, Starting 06/11/18 | | PM PDT | | | | | at 1456, Anesthesia Intra-op | | | | | | + +-------+ +--------+---+---+ +-------+ +--------+---+---+ | Given | 06/11/20 | 0.6 mg | | | | | 18 3:09 | | | | | | PM PDT | | | | +-------+ +--------+---+---+ | Given | 06/11/20 | 0.8 mg | | | | | 18 2:56 | | | | | | PM PDT | | | | +-------+ +--------+---+---+ +---+---+ | | | +---+---+ + +---------+ +---+---+---+ | lactated ringers (LR) infusion | New Bag | 06/11/20 | | | | | at 10-100 mL/hr, Intravenous, | | 18 2:53 | | | | | CONTINUOUS, Starting 06/11/18 | | PM PDT | | | [...] | ondansetron (ZOFRAN) injection | Given | 06/11/20 | 4 mg | | | | Intravenous, PRN, Nausea, | | 18 2:56 | | | | | Vomiting, Starting 06/11/18 | | PM PDT | | | | | at 1456, Anesthesia Intra-op | | | | | | + +-------+ +------+---+---+ +---+---+ | | | +---+---+ + +-------+ +-------+---+---+ | propofol (DIPRIVAN) injection | Given | 06/11/20 | 40 mg | | | | Intravenous, PRN, Starting Wed | | 18 3:46 | | | | | 06/11/18 at 1321, Anesthesia | | PM PDT | | | | | Intra-op | | | | | | + +-------+ +-------+---+---+ +-------+ +--------+---+---+ | Given | 06/11/20 | 60 mg | | | | | 18 3:38 | | | | | | PM PDT | | | | +-------+ +--------+---+---+ | Given | 06/11/20 | 100 mg | | | | | 18 1:27 | | | | | | PM PDT | | | | +-------+ +--------+---+---+ +---+---+ | | | +---+---+ + +-------+ +-------+---+---+ | rocuronium (ZEMURON) injection | Given | 06/11/20 | 20 mg | | | | Intravenous, PRN, Ventilator | | 18 2:32 | | | | | Dyssynchrony, Starting Wed | | PM PDT | | | | | 06/11/18 at 1321, Anesthesia | | | | | | | Intra-op | | | | | | + +-------+ +-------+---+---+ +-------+ +-------+---+---+ | Given | 06/11/20 | 30 mg | | | | | 18 1:49 | | | | | | PM PDT | | | | +-------+ +-------+---+---+ | Given | 06/11/20 | 50 mg | | | | | 18 1:21 | | | | | | PM PDT | | | | +-------+ +-------+---+---+ +---+---+ | | | +---+---+ + +-------+ +--------+---+---+ | ropivacaine 0.5% + EPINEPHrine | Given | 06/11/20 | 30 mLs | | | | 1:400,000 in 30 ml Syringe | | 18 3:50 | | | | | infiltration 30 mL 30 mL, | | PM PDT | | | | | PERINEURAL, ONCE, 06/11/18 at | | | | | | | 1600, For 1 dose, Recovery/Phase | | | | | | | I | | | | | | + +-------+ +--------+---+---+ +---+---+ | | | +---+---+ + +-------+ +--------+---+---+ | sugammadex (BRIDION) injection | Given | 06/11/20 | 350 mg | | | | Intravenous, PRN, Starting Wed | | 18 3:49 | | | | | 06/11/18 at 1549, Anesthesia | | PM PDT | | | | | Intra-op | | | | | | + +-------+ +--------+---+---+ +---+---+ | | | +---+---+ documented in this encounter"
--- OUTSIDE RECORDS SUMMARY | ~2019-12-21 | XMS | Encounter Summary ---
Demographics + + + | Address | [address] [address] | | | [place] [address] | + + + | Home Phone [...] Team Providers + +------+ + | Care Fund Raiser Name | Role | Phone | + +------+ + | Sarah Carroll MD | PCP | | + +------+ + Encounter Details +--------+ + + + + | Date | Type | Department | Care Team | Description | +--------+ + + + + | 02/04/ | Orders Only | [facility] | Jewel Ulloa MD | | | 2019 | | NEPHROLOGY [place] | [address] [place] | | | | | [address] [place] | [address] [place], [place] | | | | | [address] [place], [place] | [address] | | | | | [address] | | | | | | [phone] | | | +--------+ + + + [...] [place] | | | | | | [address] | | | | | | | [...]
--- OUTSIDE RECORDS SUMMARY | ~2019-12-21 | XMS | Encounter Summary ---
Demographics + + + | Address | [address] [address] | | | [place] [address] | + + + | Home Phone | | + + + | Preferred Language | Unknown | + + + | Marital Status | Single | + + + | Congregational Affiliation | 1077 | + + + | Race | Unknown | + + + | Ethnic Group | Unknown | + + + Author + + + | Author | [facility] | | | and [place] | + + + | Organization | [facility] | | | and [...] Providers + +------+ + | Care Manager Multicultural Name | Role | Phone | + +------+ + | Sarah Carroll MD | PCP | | + +------+ + Encounter Details +--------+ + + + + | Date | Type | Department | Care Team | Description | +--------+ + + + + | 12/13/ | Virtual | [facility] | Jewel Ulloa MD | Chronic kidney | | 2019 | Office | NEPHROLOGY [place] | [address] [place] | disease, stage 3 | | | Visit | [address] | [address] [place], [place] | ([facility]) (Primary Dx); | | | | [address] | [address] | Anemia of chronic | | | | [place], [place] | | renal failure, stage | | | | [address] | | 3 (moderate) ([facility]); | | | | [phone] | | Persistent | | | | [...] | | | | 59.9 in adult ([facility]); | | | | | | Essential [...] RFP, CBC, uric acid, iPTH, Urine total ibsojzw-am-dvvsnceybi ratio before he comes back in 12 [...] RFP, CBC, uric acid, iPTH, Urine total ypaqhdk-nj-rzkqissaui ratio before he comes back in 12 months. Clinical discussion length: 11-20 min ([id number]) Patient has not been seen in office within the past 7 days, and outcome of this call is not to recommend soonest available office visit. Jewel Ulola MD documented in this enco unter Plan of Treatment +--------+---------+ + + + | Date | Type | Specialty | Care Team | Description | +--------+---------+ + + + | 03/17/ | Office | Cardiology | Lorraine Clifton DO | | | 2019 | Visit | | [address] | | | | | | [place] | | | | | | [address] | | | | | | | [...]
--- OUTSIDE RECORDS SUMMARY | ~2019-12-21 | XMS | Encounter Summary ---
Demographics + + + | Address | [address] | | | [place] [address] | + + + | Home Phone [...] [place] | | | | | [address] | | + + + + + Care Team Providers + +------+ + | Care Stock Tracer Name | Role | Phone | + [...] | | 2019 | Visit | | [address] | | | | | | [address] | | | | | | [place], [place] | | | | | | [address] | | | | | | [phone] | | | | | | | | +--------+---------+ + + + documented as of this encounter Visit Diagnoses Not on filedocumented in this encounter"
--- OUTSIDE RECORDS SUMMARY | ~2019-12-21 | XMS | Encounter Summary ---
Demographics + + + | Address | [address] [address] | | | [place] [address] | + + + | Home Phone | | + + + | Preferred Language | Unknown | + + + | Marital Status | Single | + + + | Alevism Affiliation | 1077 | + + + [...] Providers + +------+ + | Care Director Audience Marketing Name | Role | Phone | + [...] + + | 07/10/ | Telephone | [facility] | Patrice Cross MD | Other (Lab order) | | 2017 | | [address] [place] | [address] | | | | | [address] [place], [place] | [address] [place] | | | | | [address] | [address] | | | | | [phone] | | | +--------+ + + + [...] [place] | | | | | | [address] | | | | | | | [...]
--- OUTSIDE RECORDS SUMMARY | ~2019-12-21 | XMS | Encounter Summary ---
Demographics + + + | Address | [address] [address] | | | [place] [address] | + + + | Home Phone | | + + + | Preferred Language | Unknown | + + + | Marital Status | Single | + + + | Sabianism Affiliation | 1077 | + + + [...] Team Providers + +------+ + | Care Plunger Scoop Operator Name | Role | Phone | + +------+ + | Sarah Carroll MD | PCP | | + +------+ + Encounter Details +--------+ + + + + | Date | Type | Department | Care Team | Description | +--------+ + + + + | 03/05/ | Orders Only | [facility] | Provider, | Mixed | | 2019 | | [facility] | MD [address] | hyperlipidemia; | | | | CONVERSION [address] | [address] | Essential (primary) | | | | [address] [place], [place] | [place] [address] | hypertension; | | | | [address] | | Chronic kidney | | | | [phone] | | disease, stage III | | [...] | | | | | [place] | | | | | | [address] | | | | | | | [...] | | | | | | (moderate) (HCC) | | | | | | Neoplasm [...] | | | | | | (moderate) ([facility]) | | | | | | Chronic kidney | | | | | | disease, stage III | | | | | | (moderate) ([facility]) | | + +------+--------+ + + | CBC with | Lab | Routin | Chronic kidney | Expected: | | Differential | | e | disease, stage III | 02/23/2019, Expires: | | | | | (moderate) ([facility]) | 02/10/2020 | | | | | [...] Expires: | | | | | (moderate) ([facility]) | 02/10/2020 | | | | | [...] Expires: | | | | | (moderate) ([facility]) | 02/10/2020 | | | | | [...] Expires: | | | | | (moderate) ([facility]) | 02/10/2020 | | | | | [...] Expires: | | | | | (moderate) ([facility]) | 02/10/2020 | | | | | [...] Expires: | | | | | (moderate) ([facility]) | 02/10/2020 | | | | | [...]
--- OUTSIDE RECORDS SUMMARY | ~2019-12-21 | XMS | Encounter Summary ---
Demographics + + + | Address | [address] [address] | | | [place] [address] | + + + | Home Phone [...] Team Providers + +------+ + | Care Infertility Medical Assistant Name | Role | Phone | + +------+ + | Sarah Carroll MD | PCP | | + +------+ + Encounter Details +--------+ + + + + | Date | Type | Department | Care Team | Description | +--------+ + + + + | 05/21/ | Orders Only | [facility] | Patrice Cross MD | Renal mass (Primary | | 2018 | | [address] | [address] | Dx); Pre-operative | | | | [address] | [address] [place] | cardiovascular | | | | [place] | [address] | examination; | | | | [address] | | Pre-operative | | | | [phone] | | laboratory | | | | | | examination; | | | | | | Abdominal adhesions | +--------+ + + + + Social [...] | | | | | [place] | | | | | | [address] | | | | | | | | +--------+---------+ + + + + +------+--------+ + + | Name | Type | Priori | Associated Diagnoses | Order Schedule | | | | ty | | | + +------+--------+ + + | ECG 12 lead | ECG | Routin | Pre-operative | 1 Occurrences | | | | e | cardiovascular | starting 05/21/2018 | | | | | examination Renal | until 05/21/2019 | | | | | mass Abdominal | | | | | | adhesions | | + +------+--------+ + + | Basic Metabolic | Lab | Routin | Renal mass | 1 Occurrences | | Panel | | e | Pre-operative | starting 05/21/2018 | | | | | laboratory | until 05/21/2019 | | | | | examination | | | | | | Abdominal adhesions | | + +------+--------+ + + | CBC with | Lab | Routin | Renal mass | 1 Occurrences | | Differential | | e | Pre-operative | starting 05/21/2018 | | | | | laboratory | until 05/21/2019 | | | | | examination | | | | | | Abdominal adhesions | | + +------+--------+ + + | Protime INR | Lab | Routin | Renal mass | 1 Occurrences | | | | e | Pre-operative | starting 05/21/2018 | | | | | laboratory | until 05/21/2019 | | | | | examination | | | | | | Abdominal adhesions | | + +------+--------+ + + | Basic Metabolic | Lab | Routin | Renal mass | 1 Occurrences | | Panel | | e | Abdominal adhesions | starting 05/21/2018 | | | | | | until 05/21/2019 | + +------+--------+ + + documented as of this encounter Visit Diagnoses + + | Diagnosis | + + | Renal mass - Primary Unspecified disorder of kidney and ureter | + + | Pre-operative cardiovascular examination | + + | Pre-operative laboratory examination Pre-procedural laboratory examination | + + | Abdominal adhesions Peritoneal adhesions (postoperative) (postinfection) | + + documented in this encounter"
--- OUTSIDE RECORDS SUMMARY | ~2019-12-21 | XMS | Encounter Summary ---
Demographics + + + | Address | [address] [address] | | | [place] [address] | + + + | Home Phone | | + + + | Preferred Language | Unknown | + + + | Marital Status | Single | + + + | Zoroastrian Affiliation | 1077 | + + + | Race | Unknown | + + + | Ethnic Group | Unknown | + + + Author + + + | Author | [facility] | | | and [place] | + + + | Organization | [facility] | | [...] Team Providers + +------+ + | Care [place] Name | Role | Phone | + +------+ + | Sarah Carroll MD | PCP | | + +------+ + Encounter Details +--------+ + + + + | Date | Type | Department | Care Team | Description | +--------+ + + + + | 07/28/ | Orders Only | [facility] | Jewel Ulloa MD | | | 2018 | | NEPRHOLOGY [place] | [address] | | | | | [address] | [address] [place], [place] | | | | | [address] [place], [place] | [address] | | | | | [address] | | | | | | [phone] | | | +--------+ + + + [...] | | | | | [place] | | | | | | [address] | | | | | | | | +--------+---------+ + + + documented as of this encounter Procedures + +--------+ + + + | Procedure Name | Priori | Date/Time | Associated Diagnosis | Comments | | | ty | | | | + +--------+ + + + | BASIC METABOLIC | Routin | 07/28/2018 | | Results for this | | PANEL | e | 9:45 AM | | procedure are in the | | | | PST | | results section. | + +--------+ + + + documented in this encounter Results Basic Metabolic Panel (07/28/2018 9:45 AM PST) + + + + + + | Component | Value | Ref Range | Performed | Pathologist | | | | | At | Signature | + + + + + + | Glucose, | 99 | 70 - 100 mg/dL | EXTERNAL | | | Fasting | | | LAB | | + + + + + + | BUN | 20 | 6 - 23 mg/dL | EXTERNAL | | | | | | LAB | | + + + + + + | Creatinine | 1.83 (A) | 0.70 - 1.33 | EXTERNAL | | | | | mg/dL | LAB | | + + + + + + | BUN/Creatin | 10.9 | 6.0 - 28.6 | EXTERNAL | | | ine Ratio | | | LAB | | + + + + + + | Calcium | 8.6 | 8.5 - 10.3 | EXTERNAL | | | | | mg/dL | LAB | | + + + + + + | Na | 135 | 132 - 143 | EXTERNAL | | | | | mmol/L | LAB | | + + + + + + | K | 5.0 | 3.6 - 5.1 | EXTERNAL | [...] + + + | Anion Gap | 15.0 | 7 - 21 mmol/L | EXTERNAL [...]
--- OUTSIDE RECORDS SUMMARY | ~2019-12-21 | XMS | Encounter Summary ---
Demographics + + + | Address | [address] [address] | | | [place] [address] | + + + | Home Phone | | + + + | Preferred Language | Unknown | + + + | Marital Status | Single | + + + | Anabaptist Affiliation | 1077 | + + + [...] Team Providers + +------+ + | Care Spray Applicator Name | Role | Phone | + [...] [place] | | | | | [place] OFFICE | [place] [address] | [address] Phone: | | | | | OUTPATIENT | Phone: | [phone] | | | | | VISIT 15 | [phone] | Fax: | | | | | MINUTES CC | Fax: | [phone] | | | | | FOLLOW UP | [phone] | | +--------+--------+ + + + + [...] | | | | [place] | [address] | excess calories with | | | | [address] | | body mass index | | | | [phone] | | (BMI) of 45.0 to | [...] kidney and ureter. How to say it ZJ-jbd-vtq-SKOP-ik VIO-tne-ABHL-ko-mimf-WWV-tuh-joey Getting readyfor surgery Follow any instructions from your healthcare provider. Tell your provider about any medicines you are taking. You may need to stop taking all or s ome of these before the test. These include: All prescription medicines Blood-thinning medicines (anticoagulants) Qeyt-kic-cjseyki medicines such as aspirin or ibuprofen Street [...] closes th e incisions with stitches or erki. The provider puts a thin tube (Swann [...] discuss these with you. Date Last Reviewed: 12/10/201619999996-0239 [employer]. [address] [place] [address]. All righ ts reserved. This information is not intended as a substitute for professional medical care. Always follow your healthcare professional's instructions. documented in this encounter Progress Notes Patrice Cross MD - 05/15/2018 1:30 PM PDTFormatting of this note might be different from t harini quinones. [facility] OFFICE NOTE Primary Care Physician: Sarah [...] FLEXIBLE SIGMOIDOSCOPY; Surgeon: Mehul Bowles MD; Location: [facility] MAIN OR COLONOSCOPY 05/22/2017 FINGER SURGERY Right [...] at 13:24 CC: Sarah Gallegos MD [address] [place] [address] documented in this encou nter Plan of Treatment +--------+---------+ + + + | Date | Type | Specialty | Care Team | Description | +--------+---------+ + + + | 03/17/ | Office | Cardiology | Lorraine Clifton DO | | | 2020 | Visit | | [address] | | | | | | [place] | | | | | | [address] | | | | | | | [...] 1.001 - 1.030 | | | | [place], | | | | | | UA, [...]
--- OUTSIDE RECORDS SUMMARY | ~2019-12-21 | XMS | Encounter Summary ---
Demographics + + + | Address | [address] [address] | | | [place] [address] | + + + | Home Phone | | + + + | Preferred Language | Unknown | + + + | Marital Status | Single | + + + | Alevism Affiliation | 1077 | + + + | Race | Unknown | + + + | Ethnic Group | Unknown | + + + Author + + + | Author | [facility] | | | and [place] | + + + | Organization | [facility] | | | [...] Team Providers + +------+ + | Care Tongue Lining Stitcher Name | Role | Phone | + +------+ + | Sarah Carroll MD | PCP | | + +------+ + Encounter Details +--------+ + + + + | Date | Type | Department | Care Team | Description | +--------+ + + + + | 10/16/ | Orders Only | [facility] | Conversion | | | 2019 | | NEPHROLOGY [place] | Transaction, | | | | | [address] | Provider Unknown | | | | | [address] [place], [place] | [phone] | | | | | [address] | (Fax) | | | | | [phone] | | | +--------+ + + + [...] [place] | | | | | | [address] | | | | | | | [...]
--- OUTSIDE RECORDS SUMMARY | ~2019-12-21 | XMS | Encounter Summary ---
Demographics + + + | Address | [address] | | | [place] [address] | + + + | Home Phone [...] + + + | Author | [facility] | + + + | Organization | [facility] | + + + | Address | Unknown | + + + | Phone | Unavailable | + + + Support + + + + + | Name | Relationship | Address | Phone | + + + + + | Toby Latham | [place] | [address] | | | | | [place] | | | | | [address] | | + + + + + Care Team Providers + +------+ + | Care Forge Operator Helper Name | Role | Phone | + +------+ + | Sarah Carroll MD | PCP | | + +------+ + Encounter Details +--------+ + + + + | Date | Type | Department | Care Team | Description | +--------+ + + + + | 04/14/ | Transcribe | [facility] | Transcribe | | | 2019 | Orders | [address] | Encounter, Provider, | | | | | Nima Grijalva Mailcode: | [address] | | | | | [address] [facility] | [place] [address] | | | | | Health and Healing, | | | | | | [address] | | | | | | [place], [place] | | | | | | [address] | | | | | | [phone] | | | +--------+ + + + [...] | | 2019 | Visit | | [address] | | | | | | [address] | | | | | | [place], [place] | | | | | | [address] | | | | | | [phone] | | | | | | | | +--------+---------+ + + + documented as of this encounter Results COLONOSCOPY (07/01/2019 10:08 AM PST) + + | Specimen | + + | | + + + + + | Narrative | Performed At | + + + | MRN: | [facility] | | [id number] Date: 07/01/2019Patient Name: Aaron Justin #: | ENDOSCOPY | | [id number] of : 1960SN: [id number] Type: | | | AmbulatoryRoom: Endo 5Procedure: | | | ColonoscopyIndications: Therapeutic procedure for known | | | colon polypPatient Profile: This is a 59 year old male. Refer to | | | note in patient chart for | | | documentation of history and physical.Providers: WILLA | | | MD PEDRO (Doctor), CATARINA SOLIMAN RN | | | (Nurse), NGHIA YBARRA (Fleet Technician)Referring MD: WILLA | | | PEDRO MDRequesting Provider: Medicines: Monitored | | | Anesthesia [...] the procedure. The Olympus | | | [id number] Colonoscope #[id number] was introduced | | | through the [...] | | any questions, please contact the costume shop coordinator. | | | - Clear liquid diet [...] if path shows | | | invasive carcinoma.WILLA VASQUEZ MD07/01/2019 | | | 12:54:08 PMNumber [...]
--- OUTSIDE RECORDS SUMMARY | ~2019-12-21 | XMS | Encounter Summary ---
Demographics + + + | Address | [address] [address] | | | [place] [address] | + + + | Home Phone | | + + + | Preferred Language | Unknown | + + + | Marital Status | Single | + + + | Mu-Ism Affiliation | 1077 | + + + [...] Team Providers + +------+ + | Care Hide Shaker Name | Role | Phone | + [...] | | [address] | [address] [place], [place] | | | | | [address] | [address] | | | | | [phone] | | | +--------+ + + + [...] | | | | | [place] | | | | | | [address] | | | | | | | | +--------+---------+ + + + documented as of this encounter Visit Diagnoses Not on filedocumented in this encounter"
--- OUTSIDE RECORDS SUMMARY | ~2019-12-21 | XMS | Encounter Summary ---
Demographics + + + | Address | [address] | | | [place] [address] | + + + | Home Phone | | + + + | Preferred Language | Unknown | + + + | Marital Status | Single | + + + | Yazidism Affiliation | LDS | + + + | Race | White | + + + | Ethnic Group | Not or | + + + Author + + + | Author | [facility] | + + + | Organization | [facility] | + + + | Address | Unknown | + + + | Phone | Unavailable | + + + Support + + + + + | Name | Relationship | Address | Phone | + + + + + | Toby Latham | [place] | [address] | | | | | [place] | | | | | [address] | | + + + + + Care Team Providers + +------+ + | Care Rim Fire Charger Operator Name | Role | Phone | + +------+ + | Sarah Carroll MD | PCP | | + +------+ + Encounter Details +--------+ + + + + | Date | Type | Department | Care Team | Description | +--------+ + + + + | 02/09/ | Transcribe | [facility] | Transcribe | | | 2019 | Orders | [address] | Encounter, Provider, | | | | | [address] Grij[address]va Mailcode: | [address] | | | | | [address] [facility] | [place] [address] | | | | | Health and Healing, | | | | | | [address] | | | | | | [place], [place] | | | | | | [address] | | | | | | [phone] | | | +--------+ + + + [...] | | 2019 | Visit | | [address] | | | | | | [address] | | | | | | [place], [place] | | | | | | [address] | | | | | | [phone] | | | | | | | | +--------+---------+ + + + + + +--------+ + + | Name | Type | Priori | Associated Diagnoses | Order Schedule | | | | ty | | | + + +--------+ + + | COLONOSCOPY | Procedures | Routin | Adenomatous polyp | Expected: 04/14/2019 | | | | e | of ascending colon | | + + +--------+ + + documented as of this encounter Results COLONOSCOPY (04/14/2019 11:50 AM PDT) + + | Specimen | + + | | + + + + + | Narrative | Performed At | + + + | MRN: | [facility] | | [id number] Date: 04/14/2019Patient Name: Aaron Justin #: | ENDOSCOPY | | [id number] of : 1960SN: [id number] Type: | | | AmbulatoryRoom: Endo 5Procedure: | | | ColonoscopyIndications: Therapeutic procedure for colon | | | polyps (TV cecal polyp), hx of | | | colorectal cancer s/p LARPatient Profile: This is a 59 year old | | | male. Refer to note in patient chart | | | for documentation of history and physical.Providers: | | | WILLA VASQUEZ MD (Doctor), FLAVIO DUTTA, XIOMARA | | | (Nurse), GENEVA FLORES, RN (Nurse), NGHIA YBARRA | | | (Cupola Melter Helper), PADMAJA ROSS | | | (Cupola Melter Helper)Referring MD: JACK TINOCO JR, | | | [...] the procedure. The Olympus | | | CF-[id number] Colonoscope #[id number] was introduced | | | through the [...] questions, please contact the | | | industrial maintenance repairer. - Stop | | | anticoagulation (coumadin) 5 days before next | | | scheduled procedure.WILLA VASQUEZ MD04/14/2019 12:45:46 | | | PMNumber of Addenda: 0Note Initiated On: 04/14/2019 11:50 AM | | |WILLA VASQUEZ MD | | |04/14/2019 12:45:46 PM [...]
--- OUTSIDE RECORDS SUMMARY | ~2019-12-21 | XMS | Encounter Summary ---
Demographics + + + | Address | [address] | | | [place] [address] | + + + | Home Phone [...] Author + + + | Author | [facility] | + + + | Organization | [facility] | + + + | Address | Unknown | + + + | Phone | Unavailable | + + + Support + + + + + | Name | Relationship | Address | Phone | + + + + + | Toby Latham | [place] | [address] | | | | | [place] | | | | | [address] | | + + + + + Care Team Providers + +------+ + | Care Technical Rep Name | Role | Phone | + +------+ + | Sarah Carroll MD | PCP | | + +------+ + Encounter Details +--------+ + + + + | Date | Type | Department | Care Team | Description | +--------+ + + + + | 07/11/ | Procedure | [address] | | | | 2019 | Pass | [address] | | | | | | [facility] | | | | | | Hospital Admitting | | | | | | Desk Located on the | | | | | | 9th floor | | | | | | [place], [place] | | | | | | [address] | | | +--------+ + + + [...] Rd | | | | | | [place], [place] | | | | | | [address] | | | | | | [phone] | | | | | | | | +--------+---------+ + + + documented as of this encounter Visit Diagnoses Not on filedocumented in this encounter"
--- OUTSIDE RECORDS SUMMARY | ~2019-12-21 | XMS | Encounter Summary ---
Demographics + + + | Address | [address] [address] | | | [place] [address] | + + + | Home Phone | | + + + | Preferred Language | Unknown | + + + | Marital Status | Single | + + + | Buddhism Affiliation | 1077 | + + + | Race | Unknown | + + + | Ethnic Group | Unknown | + + + Author + + + | Author | [facility] | | | and [place] | + + + | Organization | [facility] | | | and [...] Team Providers + +------+ + | Care Perinatology Physician Name | Role | Phone | + [...] | | | | | hy, | [address] | [address] | | | | | unspecified | [place]AR[place], | [place] | | | | | Elevated | [place] [address] | [address] | | | | | C-reactive | Phone: | Phone: | | | | | protein | [phone] | [phone] | | | | | (CRP) Other | Fax: | Fax: | | | | | specified | [phone] | [phone] | | | | | abnormal | [...] + + | 06/10/ | Office | [facility] | Mindy Nielsen | Positive NICKIE | | 2019 | Visit | RHEUMATOLOGY [address] | [address] | (antinuclear | | | | [address] | [address] | antibody) (Primary | | | | [place] | [place] [address] | Dx) | | | | [address] | [phone] | | | | | [phone] | | | +--------+---------+ + + + [...] encounter Patient Instructions Patient Instructions Carmen Bailey Licensed Mortgage Loan Officer - 06/10/2019 10:20 AM PDTWe hope t hat you have experienced exceptional care today and that you found our service to be courteo us and helpful. If you have any questions or need medication refills you can send us a message/request u COADE or call our office at [phone]. To reach Carmen CARROLL-C type extension [phone] To reach Paddy TN-C type extension [phone] If you are unable to reach a [...] can also look at your results on Vartopiat. If you are experiencing an emergency, please [...] Has been seeing Dr. Malhotra neurologist in [place] which did a nerve conduction study which [...] SEDRATE Imaging: Laboratory results were reviewed in [facility] as well as chart notes and imaging [...] | | | | | [place] | | | | | | [address] | | | | | | | | +--------+---------+ + + + documented as of this encounter Visit Diagnoses + + | Diagnosis | + + | Positive NICKIE (antinuclear antibody) - Primary Other and unspecified nonspecific | | immunological findings | + + documented in this encounter
--- OUTSIDE RECORDS SUMMARY | ~2019-12-21 | XMS | Encounter Summary ---
Demographics + + + | Address | [address] [address] | | | [place] [address] | + + + | Home Phone | | + + + | Preferred Language | Unknown | + + + | Marital Status | Single | + + + | Caodaism Affiliation | 1077 | + + + [...] Team Providers + +------+ + | Care Gin Operator Name | Role | Phone | [...] | | | Peritoneal | | [address] | | | | | adhesion | | [address] | | | | | Renal mass | | [place] | | | | | Peritoneal | | [address] Phone: | | | | | adhesion | | [phone] | | | | | Procedures | | Fax: | | | | | MD FREEING | | [phone] | | | | | BOWEL | | | | | | | ADHESION,ENT | | | | | | | EROLYSIS MD | | | | | | | LAP, | | | | | | | RADICAL | | | | | | | NEPHRECTOMY | | | +--------+--------+ + + + + Encounter Details +--------+---------+ + + + | Date | Type | Department | Care Team | Description | +--------+---------+ + + + | 06/11/ | Surgery | [facility] | Patrice Cross MD | LEFT LAPAROSCOPIC | | 2018 | | [facility] | [address] | NEPHRECTOMY WITH | | | | OP [address] | [address] [place] | NODE DISSECTION AND | | | | [place] | [address] | LAPAROSCOPIC LYSIS | | | | [address] | | OF ADHESIONS | | | | [phone] | | | +--------+---------+ + + + [...] might be different from t he original. [facility] UROLOGY DISCHARGE SUMMARY Patient Name: Lily Valentin [...] COUMADIN Discontinued Medications [place] Follow-Up: 1. [facility] in 1 week. Please call during business hours to set up your urology follow up appointm ent. Electronically Signed by: Patrice Cross MD, 06/16/2018 7:42 [facility] documented in this encou nter Discharge Instructions Instructions Teresita Rodgers RN - 06/16/2018Formatting of this note might be different f rom the original. [facility] DISCHARGE INSTRUCTIONS FOLLOWING LAPAROSCOPIC REMOVAL OF [...] on your remaining kidney. CONTACT INFORMATION: - [facility] Office Number: [facility] Office: [phone] [facility] Office: FOLLOWUP INFORMATION: - Dr. Cross [...] Weakness, dizziness, or fainting Date Last Reviewed: 05/12/201619996475-7317 [employer]. [address] [place] [address]. All righ ts reserved. This information is [...] out or is dislodged Date Last Reviewed: 08/12/201619990983-2872 [employer]. [address] [place] [address], [place] [address]. All righ ts reserved. This information is not intended as a substitute for professional medical care. Always follow your healthcare professional's instructions. [facility] Patient Belongings Lily Valentin 1960 Valuables [...] Were Given To: octavio and valubles to [id number] 18 Patient Signature: Clinician/Ore Dressing Engineer Signature: documented in this encounter Medications at [...] by | | 0 | 12/26/19 | 10/21/201 | | (CELEBREX) 200 mg | mouth [...] 11:59 AM PSTPt has d/c orders to [place] SNF. Pt h as sacral friction [...] PA-C - 06/19/2018 7:[address] [facility] UROLOGY DAILY PROGRESS NOTE ID: Lily Valentin [...] Signed by: Xavier Yip PA-C, 06/19/2018 7:40 [facility] Sasha Blevins, [facility] - 06/18/2018 4:52 PM PSTSOCIAL WORK D/C PLAN: SNF ([facility]) vs home NEXT STEPS: [facility] SNF in [place], [place] has accepted pt pending insurance authorization. [...] (intermittent support from brother). SW met w nicholas pt this am and again this pm. [...] d/c to a SNF. SW called to [facility] SNF and they are yash [place]. SW spoke to [facility], Director at [facility]. She stated that pt is not appropr iate for home health. She recommends SNF. She also stated that pt's insurance is difficult t o work with and only authorized 1 home health visit and it took 10 plus days to get auth'ed for any other home health visits. ASSESSMENT/CHART REVIEW: 58 year old male with [employer] [place] insurance from [place]. Pt lives with his elderly mother. Pt is bariatric. D/C TRANSPORT: jasson Matta- [phone]. SW originally asked for him to pick [...] support at home. CONTACTS: Toby Valentin, mother- [phone] Electronically signed by JOSH Mcbride 06/18/2018 4:52 PM Page Melton RN - 06/17/2018 5:58 PM PSTSocial worker notifi ed this RN that patient would not be able to discharge today due to SNF placement issues. Th is RN notified Xavier Yip PA-C for urology regarding canceled discharge. Electronically s igned by: Page Ortiz RN 06/17/2018 18:02 Gen Sasha N, LICS W - 06/17/2018 4:35 PM PSTSOCIAL WORK D/C PLAN: SNF ([facility]) vs home? NEXT STEPS: Need PT to re-evaluate for disposition. PT can call this SW at [phone] to discuss d/c plan satya concerns. Awaiting returned call from [facility] SNF admissions ([phone]) re: if pt wo uld be appropriate [...] d/c to a SNF. SARAH called to [facility] SNF and they a re reviewing. SARAH spoke to Angelika, Director at [facility]. She stated that pt is not appropr iate for home health. She recommends SNF. She also stated that pt's insurance is difficult t o work with and only authorized 1 home health visit and it took 10 plus days to get auth'ed for any other home health visits. ASSESSMENT/CHART REVIEW: 58 year old male with [employer] [place] insurance from [place]. Pt lives with his elderly mother. Pt is bariatric. D/C TRANSPORT: jasson Matta- [phone]. SARAH originally asked for him to pick pt [...] support at home. CONTACTS: Toby Valentin, mother- [phone] Electronically signed by JOSH Mcbride 06/17/2018 4:38 PM Kasia Stroud RN - 06/17/2018 11:33 AM PSTFormatting of this no te might be different from the original. [facility] Wound, Ostomy, & Continence Nursing Note Date [...] f/u next week Electronically signed by: Kasia Best RN, CWOCN [facility] DATE/TIME: 06/17/2018 11:36 Patrice Ag MD - 1 08/17/2017 8:05 AM PST [facility] UROLOGY DAILY PROGRESS NOTE ID: Lily Valentin [...] Signed by: Patrice Cross MD, 06/17/2018 8:05 [facility] Patrice Ag MD - 06/16 7:42 AM PST [facility] UROLOGY DAILY PROGRESS NOTE ID: Lily Valentin [...] Signed by: Patrice Cross MD, 06/16/2018 7:42 [facility] Jack Lewis MD - 06/15/2018 8:00 AM PST Name: Lily Valentin Admission Date: 06/11/2018 10:30 Attending Provider: Patrice Cross MD Room/Bed: 2/552-02 Sex: male : 1960 Age: 58 y.o. [...] 36 sec IMAGING: All images reviewed by ri NEDA08/15/2017 Large amount of gas in intestines, [...] injury to ankles. RN voiced unders tanding. ing, Sea Liang RN - 06/14/2018 7:36 PM PDTPatient did not void this evening for 7 hours after saldana was removed. Saldana replaced per order. Jack Garvey MD - 06/14/2018 8:31 AM PDTFormatting of t his note might be different from the original. Name: Lily Valentin Admission Date: 06/11/2018 10:30 Attending Provider: Patrice Cross MD Room/Bed: 2/552-02 Sex: male : 1960 Age: 58 y.o. [...] lucero PA-C - 06/13/2018 12:20 PM PDT [facility] UROLOGY DAILY PROGRESS NOTE ID: Lily Valentin [...] Signed by: Xavier Yip PA-C, 06/13/2018 12:20 [facility] Associated attestation - Patrice Cross MD - [...] Cross MD - 06/12/2018 5:33 AM PDT [facility] UROLOGY DAILY PROGRESS NOTE ID: Lily Valentin [...] Signed by: Patrice Cross MD, 06/12/2018 5:33 [facility] documented in this encou nter Plan of Treatment +--------+---------+ + + + | Date | Type | Specialty | Care Team | Description | +--------+---------+ + + + | 03/17/ | Office | Cardiology | Lorraine Clifton DO | | | 2019 | Visit | | [address] | | | | | | [place] | | | | | | [id number] | | | | | | | [...] | | | NIEVES | | | LATAGEN | | | SON | +---+--------+ + [...] +---+ + documented in this encounter Results Maurice QUISPE (06/19/2018 2:38 AM PST) + + + [...] | | | | to 3.5Performed by [facility] | | LABORATORY | | | | [address], | | [place] | | | | [place] [address] | | | | + + + + + + + + | Specimen | + + | Blood specimen | | (specimen) | + + + + + + + | Performing | Address | City/State/Zipcode | Phone Number | | Organization | | | | + + + + + | [facility] | [address] | [place] [address] | | | [facility] | | | | | LABORATORY [place] [...] [facility] | | | | Performed by [facility] [address] | | SACRED | | | | [address] [place] | | HEART | | | | [address] | | MEDICAL | | | | [...] + + | [facility] | [address] | [place] [address] | | | [facility] | | | | | LABORATORY MAO [...] | | | | to 3.5Performed by [facility] | | LABORATORY | | | | [address], | | [place] | | | | [place] [address] | | | | + + + + + + + + | Specimen | + + | Blood specimen | | (specimen) | + + + + + + + | Performing | Address | City/State/Zipcode | Phone Number | | Organization | | | | + + + + + | [facility] | [address] | [place] [address] | | | [facility] | | | | | [place] | | | | + + + + + Maurice QUISPE (06/17/2018 3:04 AM PST) + + + [...] | | | | to 3.5Performed by [facility] | | LABORATORY | | | | [address], | | [place] | | | | [place] [address] | | | | + + + + + + + + | Specimen | + + | Blood specimen | | (specimen) | + + + + + + + | Performing | Address | City/State/Zipcode | Phone Number | | Organization | | | | + + + + + | [facility] | [address] | [place] [address] | | | [facility] | | | | | LABORATORY MAO [...] (L)Comment: | 7.5 - 11.2 fL | [facility] | | | | Performed by [facility] [address] | | SACRED | | | | [address], [place] | | HEART | | [...] + + | [facility] | [address] | [place] [address] | | | [facility] | [...] | | | | to 3.5Performed by [facility] | | LABORATORY | | | | [address], [place], | | [place] | | | | [place] [address] | | | | + + + + + + + + | Specimen | + + | Blood specimen | | (specimen) | + + + + + + + | Performing | Address | City/State/Zipcode | Phone Number | | Organization | | | | + + + + + | [facility] | [address] | [place] [address] | | | [facility] | | | | | [address] [...] | | MEDICAL | | | | [facility] [address], | | [place] | | | | [place] [address] | | LABORATORY | | | | | | MAO | | + + + + + + + + | Specimen | + + | Blood specimen | | (specimen) | + + + + + + + | Performing | Address | City/State/Zipcode | Phone Number | | Organization | | | | + + + + + | [facility] | [address] | [place] [address] | | | [facility] | | | | | [...] | | MEDICAL | | | | [facility] [address], | | CENTER | | | | [place] [address] | | LABORATORY | | | | [...] + + | [facility] | [address] | [place] [address] | | | [facility] | | | | | LABORATORY [place] | | | | + + + + + Maurice QUISPE (06/15/2018 2:39 AM PST) + + + [...] | | | | to 3.5Performed by [facility] | | LABORATORY | | | | [address], | | [place] | | | | [place] [address] | | | | + + + + + + + + | Specimen | + + | Blood specimen | | (specimen) | + + + + + + + | Performing | Address | City/State/Zipcode | Phone Number | | Organization | | | | + + + + + | [facility] | [address] | [place] [address] | | | [facility] | | | | | LABORATORY [place] [...] | | | | | seconds.Performed by [facility] | | | | | | [address], | | | | | | [place] [address] | | | | + + + + + + + + | Specimen | + + | Blood specimen | | (specimen) | + + + + + + + | Performing | Address | City/State/Zipcode | Phone Number | | Organization | | | | + + + + + | [facility] | [address] | [place] [address] | | | [facility] | | | | | LABORATORY [place]ERN[place] [...] ENCE | | | Basophils | by [facility] [address], | K/uL | SACRED | | | | [place] | | HEART | | | |Performed by [facility] [address], [place], [place] | | MEDICA L | | | [...] + + | [facility] | [address] | [place], [place] | | | [facility] | | | | | LABORATORY [place] [...] | | MEDICAL | | | | [facility] [address], | | CENTER | | | | [place] [address] | | LABORATORY | | | | [...] + + | [facility] | [address] | [place] [address] | | | [facility] | | | | | [address] [place] [...] excluded. Signed by: | | | MD Kobi, Alonzo Sign Date/Time: 06/15/2018 1:54 AM | | [...] | | | | Signed by: MD Kobi, Alonzo | | Sign Date/Time: 06/15/2018 1:54 AM [...] PROVIDE NCE | | | | by [facility] [address], | | SACRED | | | | [place] [address] | | HEART | | | |Performed by [facility] [address], [place] [address] | | MEDICAL | | | | [...] + + | [facility] | [address] | [place] [address] | | | [facility] | | | | | LABORATORY MAO | | | | + + + + + Maurice INR (06/14/2018 9:31 AM PDT) + + + [...] | | | | to 3.5Performed by [facility] | | LABORATORY | | | | [address], | | [place] | | | | [place] [address] | | | | + + + + + + + + | Specimen | + + | Blood specimen | | (specimen) | + + + + + + + | Performing | Address | City/State/Zipcode | Phone Number | | Organization | | | | + + + + + | [facility] | [address] | [place] [address] | | | [facility] | | | | | [...] | | MEDICAL | | | | [facility] [address], | | CENTER | | | | [place] [address] | | LABORATORY | | | | | | [place] | | + + + + + + + + | Specimen | + + | Blood specimen | | (specimen) | + + + + + + + | Performing | Address | City/State/Zipcode | Phone Number | | Organization | | | | + + + + + | [facility] | [address] | [place] [address] | | | [facility] | | | | | LABORATORY MAO [...] | | MEDICAL | | | | [facility] [address], | | CENTER | | | | [place] [address] | | LABORATORY | | | | [...] + + | [facility] | [address] | [place] [address] | | | [facility] | | | | | [...] PROVIDE NCE | | | | by [facility] [address], | | SACRED | | | | [place] [address] | | HEART | | | |Performed by [facility] [address], [place] [address] | | MEDICAL | | | | [...] + + | [facility] | [address] | [place] [address] | | | HEART [facility] CENTER | | | | | LABORATORY MAO [...] | | MEDICAL | | | | [facility] [address], | | CENTER | | | | [place] [address] | | LABORATORY | | | | [...] + | [facility] | [address] | [place] [address] | | | [facility]ENTER | [...] [facility] | | | | Performed by [facility] [address] | | SACRED | | | | [address] [place] [place] | | HEART | | | | [address] | | MEDICAL | | | | [...] + | [facility] | [address] | [place] [address] | | | [facility] | | | | | LABORATORY [place] [...] | | MEDICAL | | | | [facility] [address], | | CENTER | | | | [place] [address] | | LABORATORY | | | | [...] + + | [facility] | [address] | [place] [address] | | | [facility] | | | | | [place] | | | | + + + + + Tissue Request For Pathology (06/11/2018 2:57 PM PDT) + + | Specimen | + + | | + + + + + | Narrative | Performed At | + + + | | [facility] | | [address] | [facility] | | : 1960 AGE: 58 years SEX: Male | MEDICAL CENTER | | | LABORATORY | | Acct: [id number] Location: | [facility] | | [facility] SURG; 552; 552-02 Case #: | | | [id number] Ordering: PATRICE CROSS MD | | | Client: [facility] | | | Copy To: Printed: | [...] | MDVerify Date: 06/18/2018 12:37 pmPerforming Location: [facility] | | | [facility], [facility] [address] | | | DESCRIPTION:This case is received [...] B labeled and | | | designated "Yeison, left kidney" is received in formalin and [...] | | | ureteral and renal vasculature margins.Ict Help Desk Technician sections are | | | submitted as [...] pelvis and sinus | | | fat. Ict Help Desk Technician sections are submitted during second look with [...] + + | [facility] | [address] | [place] [address] | | | [facility] | | | | | STEPHEN [place] [...] | | | | | | LAB [place] | | | | | | [facility] | | | | | | [facility] | | | | | | BLOOD | | | | | | CENTER | | + + + + + + | Rh Type | PositiveComment: Patient | | REFERENCE | | | | is remote crossmatch | | LAB [place] | | | | eligible | | [...] + + + | Specimen Expiration Date: [id number] | [facility] | | | [place] [facility] | | | [facility] | | | [facility] CENTER | + + + + + + + + | Performing | Address | City/State/Zipcode | Phone Number | | Organization | | | | + + + + + | [facility]FER[facility] | [address] | [place] [address] | [phone] | | [place] | | | | | [facility] [...] | | | | | | LAB [place] | | | | | | [facility] | | | | | | [facility] | | | | | | BLOOD | | | | | | CENTER | | + + + + + + | Rh Type | Positive | | REFERENCE | | | | | | LAB [place] | | | | | | [facility] | | | | | | [facility] | | | | | | BLOOD | | | | | | CENTER | | + + + + + + | Antibody | Negative | | REFERENCE | | | Screen | | | LAB [place] | | | | | | [facility] [...] + + + | Specimen Expiration Date: [id number] | [facility] LAB | | | [place] [facility] | | | [facility] | | | [facility] | + + + + + + + + | Performing | Address | City/State/Zipcode | Phone Number | | Organization | | | | + + + + + | [facility] | [address] | [place] [address] | [phone] | | [place] | | | | | [facility] [...] | | | POC | Performed by [facility] [address] | | SACRED | | | | [address], [place] | | HEART | | | | [address] | | MEDICAL | | | | [...] + + | [facility] | [address] | [place] [address] | | | [facility] | | | | | LABORATORY MAO [...] Diagnosis | + + | Renal mass Unspecified disorder of kidney and ureter | + + | Peritoneal adhesion Peritoneal adhesions (postoperative) (postinfection) | + + documented in this encounter Administered Medications + +--------+ +--------+------+------+ | Medication Order | MAR | Action | Dose | Rate | Site | | | Action | Date | | | | + +--------+ +--------+------+------+ | acetaminophen (TYLENOL) tablet | Given | [...] | | | | | + +--------+ +--------+------+------+ +-------+ +--------+---+---+ | Given | 06/17/20 | [...] mg 25 mg, Oral, EVERY | | 18 9:38 | | | [...] | +---+---+ + +-------+ +--------+---+ + | lidocaine 1%-EPINEPHrine | Given | 06/11/20 | 15 mLs | | Surgical | | 1:100,000 injection PRN, | | 18 1:45 | | | Site | | Starting Sat06/11/18 at 1345, | | PM PDT | | | [...] | | | | | dose on Sat06/12/18 at 0900, | | AM PST | [...] | + +---+ + +-------+ +--------+---+---+ | spironolactone (ALDACTONE) | [...]
--- OUTSIDE RECORDS SUMMARY | ~2019-12-21 | XMS | Encounter Summary ---
Demographics + + + | Address | [address] [address] | | | [place] [address] | + + + | Home Phone | | + + + | Preferred Language | Unknown | + + + | Marital Status | Single | + + + | Oriental Orthodox Affiliation | 1077 | + + + [...] Team Providers + +------+ + | Care Leadite Man Name | Role | Phone | + +------+ + | Sarah Carroll MD | PCP | | + +------+ + Encounter Details +--------+ + + + + | Date | Type | Department | Care Team | Description | +--------+ + + + + | 10/16/ | Orders Only | [facility] | Conversion | | | 2019 | | NEPHROLOGY [place] | Transaction, | | | | | [address] | Provider Unknown | | | | | [address] [place], [place] | [phone] | | | | | [address] | (Fax) | | | | | [phone] | | | +--------+ + + + [...] [place] | | | | | | [address] | | | | | | | [...]
--- OUTSIDE RECORDS SUMMARY | ~2019-12-21 | XMS | Encounter Summary ---
Demographics + + + | Address | [address] [address] | | | [place] [address] | + + + | Home Phone | | + + + | Preferred Language | Unknown | + + + | Marital Status | Single | + + + | Rastafarian Affiliation | 1077 | + + + | Race | Unknown | + + + | Ethnic Group | Unknown | + + + Author + + + | Author | [facility] | | | and [place] | + + + | Organization | [facility] | | | [...] Team Providers + +------+ + | Care Steam Tank Operator Name | Role | Phone | + +------+ + | Sarah Carroll MD | PCP | | + +------+ + Encounter Details +--------+ + + + + | Date | Type | Department | Care Team | Description | +--------+ + + + + | 10/16/ | Orders Only | [facility] | Jewel Ulloa MD | | | 2019 | | NEPHROLOGY [place] | [address] [place] | | | | | [address] [place] | [address] [place], [place] | | | | | [address] [place], [place] | [address] | | | | | [address] | | | | | | [phone] | | | +--------+ + + + [...] | | | | | [place] | | | | | | [address] | | | | | | | | +--------+---------+ + + + documented as of this encounter Procedures + +--------+ + + + | Procedure Name | Priori | Date/Time | Associated Diagnosis | Comments | | | ty | | | | + +--------+ + + + | EXTERNAL LAB: CBC | Routin | 10/16/2018 | | Results [...] | | | LAB | | | [facility] | | | | | + + [...]
--- OUTSIDE RECORDS SUMMARY | ~2019-12-21 | XMS | Encounter Summary ---
Demographics + + + | Address | [address] [address] | | | [place] [address] | + + + | Home Phone [...] Team Providers + +------+ + | Care Rig Supervisor Name | Role | Phone | + +------+ + | Sarah Carroll MD | PCP | | + +------+ + Encounter Details +--------+ + + + + | Date | Type | Department | Care Team | Description | +--------+ + + + + | 01/22/ | Orders Only | [facility] | Mauliktayla Ileana | | | 2017 | | CARDIOLOGY [place] | [address] | | | | | [address] | [address] | | | | | [place], [place] | [place] [address] | | | | | [address] | [phone] | | | | | [phone] | | | +--------+ + + + [...] | 2020 | Visit | | [address] | | | | | | [place] | | | | | | [address] | | | | | | | | +--------+---------+ + + + documented as of this encounter Procedures + +--------+ + + + | Procedure Name | Priori | Date/Time | Associated Diagnosis | Comments | | | ty | | | | + +--------+ + + + | EXTERNAL LAB: [facility] | Routin | 01/22/2017 | | | | | e | 9:23 AM | | | | | | PDT | | | + +--------+ + + + | EXTERNAL LAB: [facility] | Routin | 01/22/2017 | | Results for this | | | e | 9:23 AM | | procedure are in the | | | | PDT | | results section. | + +--------+ + + + | COMPREHENSIVE | Routin | 01/22/2017 | | | | METABOLIC PANEL | e | 9:23 AM | | | | | | PDT | | | + +--------+ + + + | COMPREHENSIVE | Routin | 01/22/2017 | | Results for this | | METABOLIC PANEL | e | 9:23 AM | | procedure are in the | | | | PDT | | results section. | + +--------+ + + + documented in this encounter Results External Lab: [facility] (01/22/2017 9:23 AM PDT) + +-------+ + + + | Component | Value | Ref Range | Performed | Pathologist | | | | | At | Signature | + +-------+ + + + | WBC | | 10 | EXTERNAL | | | | | | LAB | | + +-------+ + + + | Red Blood | | 10 | EXTERNAL | | | Cells | | | LAB | | | Counted | | | | | + +-------+ + + + | Hemoglobin | | g/dL | EXTERNAL | | | | | | LAB | | + +-------+ + + + | Hematocrit, | | % | EXTERNAL | | | POC | | | LAB | | + +-------+ + + + | MCV | | fL | EXTERNAL | | | | | | LAB | | + +-------+ + + + | MCH | | pg | EXTERNAL | | | | | | LAB | | + +-------+ + + + | MCHC | | g/dL | EXTERNAL | | | | | | LAB | | + +-------+ + + + | Platelet | | K/ L | EXTERNAL | | | Count | | | LAB | | | Plasma | | | | | + +-------+ + + + | RDW-CV | | % | EXTERNAL | | | | | | LAB | | + +-------+ + + + | MPV | | fL | EXTERNAL | | | | | | LAB | | + +-------+ + + + | Differentia | | | EXTERNAL | | | l Type | | | LAB | | + +-------+ + + + | % Segmented | | % | EXTERNAL | | | | | | LAB | | | Neutrophils | | | | | + +-------+ + + + | % | | % | EXTERNAL | | | Lymphocytes | | | LAB | | + +-------+ + + + | % Monocytes | | % | EXTERNAL | | | | | | LAB | | + +-------+ + + + | % | | % | EXTERNAL | | | Eosinophils | | | LAB | | + +-------+ + + + | % Basophils | | % | EXTERNAL | | | | | | LAB | | + +-------+ + + + | Absolute | | / L | EXTERNAL | | | Segmented | | | LAB | | | Neutrophils | | | | | + +-------+ + + + | Absolute | | / L | EXTERNAL | | | Lymphocytes | | | LAB | | + +-------+ + + + | Absolute | | / L | EXTERNAL | | | Monocytes | | | LAB | | + +-------+ + + + | Absolute | | / L | EXTERNAL | | | Eosinophils | | | LAB | | + +-------+ + + + | Absolute | | [...] + +---------+ + + External Lab: CBC (01/22/2017 9:23 AM PDT) + + + + + + | Component | Value | Ref Range | Performed | Pathologist | | | | | At | Signature | + + + + + + | WBC | 8.4 | 4.5 - 11.0 10 | EXTERNAL | | | | | | LAB | | + + + + + + | Red Blood | 3.41 (A) | 4.3 - 5.7 10 | EXTERNAL | | | Cells | | | LAB | | | Counted | | | | | + + + + + + | Hemoglobin | 11.4 (A) | 13.5 - 18.0 | EXTERNAL | | | | | g/dL | LAB | | + + + + + + | Hematocrit, | 34.1 (A) | 41 - 50 % | EXTERNAL | | | POC | | | LAB | | + + + + + + | MCV | 100.0 (A) | 81 - 99 fL | [...] + + + + | Platelet | 304 | 140 - 440 K/ L | EXTERNAL | | | Count | | | LAB | | | Plasma | | | | | + + + + + + | RDW-CV | 15.1 (A) | 10.5 - 15.0 % | [...] + + + | % Segmented | 69.0 | 39 - 80 % | EXTERNAL | | | | | | LAB | | | Neutrophils | | | | | + + + + + + | % | 19.8 (A) | 24 - 44 % | EXTERNAL | | | Lymphocytes | | | LAB | | + + + + + + | % Monocytes | 5.7 | 0 - 12 % | EXTERNAL | | | | | | LAB | | + + + + + + | % | 4.5 | 0 - 6 % | EXTERNAL | | | Eosinophils | | | LAB | | + + + + + + | % Basophils | 1.0 | 0 - 2 % | EXTERNAL [...] + +---------+ + + Comprehensive Metabolic Panel (01/22/2017 9:23 AM PDT) + +-------+ + + + | Component | Value | Ref Range | Performed | Pathologist | | | | | At | Signature | + +-------+ + + + | Glucose, | | mg/dL | EXTERNAL | | | Fasting | | | LAB | | + +-------+ + + + | BUN | | mg/dL | EXTERNAL | | | | | | LAB | | + +-------+ + + + | Creatinine | | mg/dL | EXTERNAL | | | | | | LAB | | + +-------+ + + + | BUN/Creatin | | | EXTERNAL | | | ine Ratio | | | LAB | | + +-------+ + + + | Calcium | | mg/dL | EXTERNAL | | | | | | LAB | | + +-------+ + + + | Protein, | | g/dL | EXTERNAL | | | Total | | | LAB | | + +-------+ + + + | Albumin | | | EXTERNAL | | | | | | LAB | | + +-------+ + + + | Globulin | | | EXTERNAL | | | | | | LAB | | + +-------+ + + + | A/G Ratio | | | EXTERNAL | | | | | | LAB | | + +-------+ + + + | Bilirubin | | mg/dL | EXTERNAL | | | Total | | | LAB | | + +-------+ + + + | ALP, | | | EXTERNAL | | | External | | | LAB | | + +-------+ + + + | ALT | | U/L | EXTERNAL | | | | | | LAB | | + +-------+ + + + | AST | | U/L | EXTERNAL | | | | | | LAB | | + +-------+ + + + | Na | | mmol/L | EXTERNAL | | | | | | LAB | | + +-------+ + + + | K | | mmol/L | EXTERNAL | | | | | | LAB | | + +-------+ + + + | Cl | | mmol/L | EXTERNAL | | | | | | LAB | | + +-------+ + + + | CO2 | | mmol/L | EXTERNAL | | | | | | LAB | | + +-------+ + + + | Anion Gap | | mmol/L | EXTERNAL | | | | | | LAB | | + +-------+ + + + | Estimated | | mg/dL | EXTERNAL | | | GFR [...] + +---------+ + + Comprehensive Metabolic Panel (01/22/2017 9:23 AM PDT) + + + + + + | Component | Value | Ref Range | Performed | Pathologist | | | | | At | Signature | + + + + + + | Glucose, | 196 (A) | 70 - 100 mg/dL | EXTERNAL | | | Fasting | | | LAB | | + + + + + + | BUN | 33 (A) | 6 - 23 mg/dL | EXTERNAL | | | | | | LAB | | + + + + + + | Creatinine | 1.50 (A) | 0.70 - 1.33 | EXTERNAL | | | | | mg/dL | LAB | | + + + + + + | BUN/Creatin | 22.0 | 6.0 - 28.6 | EXTERNAL | | | ine Ratio | | | LAB | | + + + + + + | Calcium | 9.0 | 8.4 - 10.2 | EXTERNAL | | | | | mg/dL | LAB | | + + + + + + | Protein, | 6.7 | 6.0 - 8.0 g/dL | EXTERNAL | | | Total | | | LAB | | + + + + + + | Albumin | 3.8 | 3.5 - 5.0 | EXTERNAL | | | | | | LAB | | + + + + + + | Globulin | 2.9 | 1.8 - 3.5 | EXTERNAL | | | | | | LAB | | + + + + + + | A/G Ratio | 1.3 | 1.1 - 2.4 | EXTERNAL | | | | | | LAB | | + + + + + + | Bilirubin | 0.2 | 0.0 - 1.2 mg/dL | EXTERNAL | | | Total | | | LAB | | + + + + + + | ALP, | 63 | 31 - 120 | EXTERNAL | | | External | | | LAB | | + + + + + + | ALT | 14 | 7 - 52 U/L | EXTERNAL | | | | | | LAB | | + + + + + + | AST | 16 | 13 - 39 U/L | EXTERNAL | | | | | | LAB | | + + + + + + | Na | 141 | 132 - 143 | EXTERNAL | | | | | mmol/L | LAB | | + + + + + + | K | 4.7 | 3.6 - 5.1 | EXTERNAL | | | | | mmol/L | LAB | | + + + + + + | Cl | 99 | 95 - 112 mmol/L | EXTERNAL | | | | | | LAB | | + + + + + + | CO2 | 29 | 19 - 31 mmol/L | EXTERNAL | | | | | | LAB | | + + + + + + | Anion Gap | 17.7 | 7 - 21 mmol/L | EXTERNAL | | | | | | LAB | | + + + + + + | Estimated | 49 (A) | 60 mg/dL | EXTERNAL | | | GFR [...]
--- OUTSIDE RECORDS SUMMARY | ~2019-12-21 | XMS | Encounter Summary ---
Demographics + + + | Address | [address] [address] | | | [place] [address] | + + + | Home Phone | | + + + | Preferred Language | Unknown | + + + | Marital Status | Single | + + + | Yazdanism Affiliation | 1077 | + + + | Race | Unknown | + + + | Ethnic Group | Unknown | + + + Author + + + | Author | [facility] | | | and [place] | + + + | Organization | [facility] | | | and [...] Team Providers + +------+ + | Care Administration Assistant Name | Role | Phone | + +------+ + | Sarah Carroll MD | PCP | | + +------+ + Encounter Details +--------+ + + + + | Date | Type | Department | Care Team | Description | +--------+ + + + + | 12/13/ | Orders Only | [facility] | Jewel Ulloa MD | Essential | | 2020 | | NEPHROLOGY [place] | [address] [place] | hypertension with | | | | [address] [place] | [address] [place], [place] | goal blood pressure | | | | [address] [place], [place] | [address] | less than 130/80 | | | | [address] | | (Primary Dx); | | | | [phone] | | Subclinical | | | | | | hypothyroidism; | | | | | | Chronic kidney | | | | | | disease, stage 3 | | | | | | (HCC); | | | | | | Angiomyolipoma of | | | | | | left kidney; Anemia | | | | | | of chronic renal | | | | | | failure, stage 3 | | | | | | (moderate) [...] | | | | | [place] | | | | | | [address] | | | | | | | | +--------+---------+ + + + + +------+--------+ + + | Name | Type | Priori | Associated Diagnoses | Order Schedule | | | | ty | | | + +------+--------+ + + | Renal Function Panel | Lab | Routin | Essential | Expected: | | | | e | hypertension with | 06/15/2020, Expires: | | | | | goal blood pressure | 12/13/2020 | | | | | less than 130/80 | | | | | | Chronic kidney | | | | | | disease, stage 3 | | | | | | (HCC) | | | | | | Angiomyolipoma of | | | | | | left kidney Anemia | | | | | | of chronic renal | | | | | | failure, stage 3 | | | | | | (moderate) (HCC) | | | | | | Persistent | | | | | | proteinuria | | + +------+--------+ + + | Protein/Creatinine | Lab | Routin | Essential | Expected: | | Ratio, Urine | | e | hypertension with | 06/15/2020, Expires: | | | | | goal blood pressure | 12/13/2020 | | | | | less than 130/80 | | | | | | Chronic kidney | | | | | | disease, stage 3 | | | | | | (HCC) | | | | | | Angiomyolipoma of | | | | | | left kidney Anemia | | | | | | of chronic renal | | | | | | failure, stage 3 | | | | | | (moderate) ([facility]) | | | | | | Persistent | | | | | | proteinuria | | + +------+--------+ + + | Renal Function Panel | Lab | Routin | Essential | Expected: | | | | e | hypertension with | 12/13/2020, Expires: | | | | | goal blood pressure | 12/13/2021 | | | | | less than 130/80 | | | | | | Chronic kidney | | | | | | disease, stage 3 | | | | | | (HCC) | | | | | | Angiomyolipoma of | | | | | | left kidney Anemia | | | | | | of chronic renal | | | | | | failure, stage 3 | | | | | | (moderate) (HCC) | | | | | | Persistent | | | | | | proteinuria | | + +------+--------+ + + | CBC with | Lab | Routin | Essential | Expected: | | Differential | | e | hypertension with | 12/13/2020, Expires: | | | | | goal blood pressure | 12/13/2021 | | | | | less than 130/80 | | | | | | Chronic kidney | | | | | | disease, stage 3 | | | | | | (HCC) | | | | | | Angiomyolipoma of | | | | | | left kidney Anemia | | | | | | of chronic renal | | | | | | failure, stage 3 | | | | | | (moderate) ([facility]) | | | | | | Persistent | | | | | | proteinuria | | + +------+--------+ + + | Uric Acid | Lab | Routin | Essential | Expected: | | | | e | hypertension with | 12/13/2020, Expires: | | | | | goal blood pressure | 12/13/2021 | | | | | less than 130/80 | | | | | | Chronic kidney | | | | | | disease, stage 3 | | | | | | (HCC) | | | | | | Angiomyolipoma of | | | | | | left kidney Anemia | | | | | | of chronic renal | | | | | | failure, stage 3 | | | | | | (moderate) (HCC) | | | | | | Persistent | | | | | | proteinuria | | + +------+--------+ + + | Parathyroid Hormone, | Lab | Routin | Essential | Expected: | | Intact | | e | hypertension with | 12/13/2020, Expires: | | | | | goal blood pressure | 12/13/2021 | | | | | less than 130/80 | | | | | | Chronic kidney | | | | | | disease, stage 3 | | | | | | ([facility]) | | | | | | Angiomyolipoma of | | | | | | left kidney Anemia | | | | | | of chronic renal | | | | | | failure, stage 3 | | | | | | (moderate) ([facility]) | | | | | | Persistent | | | | | | proteinuria | | + +------+--------+ + + | Protein/Creatinine | Lab | Routin | Essential | Expected: | | Ratio, Urine | | e | hypertension with | 12/13/2020, Expires: | | | | | goal blood pressure | 12/13/2021 | | | | | less than 130/80 | | | | | | Chronic kidney | | | | | | disease, stage 3 | | | | | | ([facility]) | | | | | | Angiomyolipoma of | | | | | | left kidney Anemia | | | | | | of chronic renal | | | | | | failure, stage 3 | | | | | | (moderate) ([facility]) | | | | | | Persistent [...] stage 3 (HCC) | + + | Angiomyolipoma of left kidney | + + | Anemia of chronic renal failure, stage 3 (moderate) (HCC) | + + | Persistent proteinuria Proteinuria | + + documented in this encounter"
--- OUTSIDE RECORDS SUMMARY | ~2019-12-21 | XMS | Encounter Summary ---
Demographics + + + | Address | [address] | | | [place] [address] | + + + | Home Phone | | + + + | Preferred Language | Unknown | + + + | Marital Status | Single | + + + | Rastafari Affiliation | LDS | + + + | Race | White | + + + | Ethnic Group | Not or | + + + Author + + + | Author | [facility] | + + + | Organization | [facility] | + + + | Address | Unknown | + + + | Phone | Unavailable | + + + Support + + + + + | Name | Relationship | Address | Phone | + + + + + | Toby Latham | [place] | [address] | | | | | [place] | | | | | [address] | | + + + + + Care Team Providers + +------+ + | Care Manager Discovery Name | Role | Phone | + [...] 07/06/ | Telephone | [facility] | [place], | Follow-up Plan | | 2019 | | [facility] [address] | MD [place] [address] | (colonscopy f/u) | | | | Nima Grijalva Mailcode: | Jeffery Ponce | | | | | [address] for | [place], [place] | | | | | [facility], | [address] | | | | | [facility] | [phone] | | | | | [place], [place] | | | | | | [address] | | | | | | [phone] | | | +--------+ + + + [...] Rd | | | | | | [place], [place] | | | | | | [address] | | | | | | [phone] | | | | | | | | +--------+---------+ + + + documented as of this encounter Visit Diagnoses Not on filedocumented in this encounter"
--- OUTSIDE RECORDS SUMMARY | ~2019-12-21 | XMS | Encounter Summary ---
Demographics + + + | Address | [address] [address] | | | [place] [address] | + + + | Home Phone | | + + + | Preferred Language | Unknown | + + + | Marital Status | Single | + + + | Orthodoxy Affiliation | 1077 | + + + | Race | Unknown | + + + | Ethnic Group | Unknown | + + + Author + + + | Author | [facility] | | | and [place] | + + + | Organization | [facility] | | | and [...] Team Providers + +------+ + | Care Client Specialist Name | Role | Phone | + +------+ + | Sarah Carroll MD | PCP | | + +------+ + Encounter Details +--------+ + + + + | Date | Type | Department | Care Team | Description | +--------+ + + + + | 12/18/ | Orders Only | [facility] | Jewel Ulloa MD | | | 2019 | | NEPHROLOGY [place] | [address] [place] | | | | | [address] [place] | [address] [place], [place] | | | | | [address] [place], [place] | [address] | | | | | [address] | | | | | | [phone] | | | +--------+ + + + [...] [place] | | | | | | [address] | | | | | | | [...] | | | LAB | | | [place] | | | | | + + [...]
--- OUTSIDE RECORDS SUMMARY | ~2019-12-21 | XMS | Encounter Summary ---
Demographics + + + | Address | [address] | | | [place] [address] | + + + | Home Phone | | + + + | Preferred Language | Unknown | + + + | Marital Status | Single | + + + | Pentecostalism Affiliation | LDS | + + + | Race | White | + + + | Ethnic Group | Not or | + + + Author + + + | Author | [facility] | + + + | Organization | [facility] | + + + | Address | Unknown | + + + | Phone | Unavailable | + + + Support + + + + + | Name | Relationship | Address | Phone | + + + + + | Toby Latham | [place] | [address] | | | | | [place] | | | | | [address] | | + + + + + Care Team Providers + +------+ + | Care Steffen House Supervisor Name | Role | Phone | + +------+ + | Sarah Carroll MD | PCP | | + +------+ + Encounter Details +--------+ + + + + | Date | Type | Department | Care Team | Description | +--------+ + + + + | 07/12/ | Procedure | [facility] [address] [facility] [address] | | | | 2019 | Pass | SARAH Ponce | | | | | | [facility] | | | | | | Hospital Admitting | | | | | | Desk Located on the | | | | | | 9th floor | | | | | | [place], [place] | | | | | | [address] | | | +--------+ + + + [...] Rd | | | | | | [place], [place] | | | | | | [address] | | | | | | [phone] | | | | | | | | +--------+---------+ + + + documented as of this encounter Visit Diagnoses Not on filedocumented in this encounter"
--- OUTSIDE RECORDS SUMMARY | ~2019-12-21 | XMS | Encounter Summary ---
Demographics + + + | Address | [address] [address] | | | [place] [address] | + + + | Home Phone [...] Team Providers + +------+ + | Care Insurance Risk Manager Name | Role | Phone | + +------+ + | Sarah Carroll MD | PCP | | + +------+ + Encounter Details +--------+ + + + + | Date | Type | Department | Care Team | Description | +--------+ + + + + | 10/02/ | Abstract | [facility] | Cordell Pedraza | | | 2019 | | NEUROSURGERY [address] | [place] [address] | | | | | [address] | [address] [address] | | | | | [place] | [place] | | | | | [address] | [address] | | | | | [phone] | | | +--------+ + + + [...] [place] | | | | | | [address] | | | | | | | | +--------+---------+ + + + documented as of this encounter Visit Diagnoses Not on filedocumented in this encounter"
--- OUTSIDE RECORDS SUMMARY | ~2019-12-21 | XMS | Encounter Summary ---
Demographics + + + | Address | [address] [address] | | | [place] [address] | + + + | Home Phone | | + + + | Preferred Language | Unknown | + + + | Marital Status | Single | + + + | Gnosticist Affiliation | 1077 | + + + | Race | Unknown | + + + | Ethnic Group | Unknown | + + + Author + + + | Author | [facility] | | | and [place] | + + + | Organization | [facility] | | [...] Team Providers + +------+ + | Care Paediatrician Name | Role | Phone | + +------+ + | Sarah Carroll MD | PCP | | + +------+ + Encounter Details +--------+ + + + + | Date | Type | Department | Care Team | Description | +--------+ + + + + | 06/06/ | Telephone | [place] [facility] | Patrice Cross MD | | | 2017 | | [address] | [address] | | | | | [address] [place] [address] | [address] [place] | | | | | [place], [place] | [address] | | | | | [address] | | | | | | [phone] | | | +--------+ + + + [...] | | | | | [place] | | | | | | [address] | | | | | | | | +--------+---------+ + + + documented as of this encounter Visit Diagnoses Not on filedocumented in this encounter"
--- OUTSIDE RECORDS SUMMARY | ~2019-12-21 | XMS | Encounter Summary ---
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[facility] | Transaction, | systolic and | | | | CLINICAL DECISION | Provider Unknown | diastolic congestive | | | | [address] [facility] | [phone] | heart failure | | | | [place], [place] | | ([facility]); Persistent | | | | [address] | Rocael Benedict, | atrial fibrillation | | | | [phone] | MD [address] | ([facility]); Essential | | | | | [place] [address] | hypertension with | | | | | [phone] | goal blood pressure | | | [...] effort | | | | | | ([facility]); Chronic | | | | | | [...] 02/06/171900 Date of Service: 02/06/171855 Status: Signed Telephone Installer: Penelope Dale RN (Registered Nurse) Dr. Benedict 's phone Called and message left - Florencia notified Him That Aaron Latham Had 1 hour Left For iv Hydration and Left [place]. Devendra onver tara Transaction, Provider Unknown - 02/06/2017 6:56 PM PDT Progress Notes by Penelope Dale RN at 02/06/171855 Author: Penelope Dale RN Service: (none) Author Type: Registered Nurse Filed: 02/06/171903 Date of Service: 02/06/171855 Status: Signed Telephone Installer: Penelope Dale RN (Registered Nurse) Personal Belongings With pt. Pt Wheeled To car With medical science liaison/car. Mother With Pt. Pt Awake and alert and No Distress. Devendra onver tara Transaction, Provider Unknown - 02/06/2017 6:54 PM PDT Progress Notes by Penelope Dale RN at 02/06/171853 Author: Penelope Dale RN Service: (none) Author Type: Registered Nurse Filed: 02/06/171901 Date of Service: 02/06/171853 Status: Addendum Telephone Installer: Penelope Dale RN (Registered Nurse) Related Notes: [...] home. Son Signed ama form rn Called Heat Plant Specialist per mother's Demand. Tr band Instructions Reviewed with pt And mother By Nurse Miko- Malka Casey trband Site Cleaned per Policy and Sterile Dressing Applied. Devendra onver tara Transaction, Provider Unknown - 02/06/2017 6:40 PM PDT Progress Notes by Penelope Dale RN at 02/06/171839 Author: Penelope Dale RN Service: (none) Author Type: Registered Nurse Filed: 02/06/171840 Date of Service: 02/06/171839 Status: Signed Telephone Installer: Penelope Dale RN (Registered Nurse) rn Diego Answered Dr. Benedict Phone/who is in middle of procedure/unable To talk Now. Devendra onver tara Transaction, Provider Unknown - 02/06/2017 6:35 PM PDT Progress Notes by Penelope Dale RN at 02/06/171834 Author: Peneolpe Dale RN Service: (none) Author Type: Registered Nurse Filed: 02/06/171836 Date of Service: 02/06/171834 Status: Signed Telephone Installer: Penelope Dale RN (Registered Nurse) Pt And Mother Demanding to Go home Now. Pt States Drank 2000 Cc And Peed 550 Urine. Have A Heat Plant Specialist Waiting Since 10 am. Plan of Care has Been Reviewed With pt And mother for Discharge At 8pm Repeated And they Had Agreed. No mention of Heat Plant Specialist Outside ever Mentioned. Devendra onver tara Transaction, Provider Unknown - 02/06/2017 4:19 PM PDT Progress Notes by Penelope Dale RN at 02/06/17 1619 Author: Penelope Dale RN Service: (none) Author Type: Registered Nurse Filed: 02/06/17 1705 Date of Service: 02/06/17 1619 Status: Addendum Telephone Installer: Penelope Dale RN (Registered Nurse) Related Notes: [...] Date of Service: 02/06/17 1139 Status: Signed Telephone Installer: Lary Stuart RN (Registered Nurse) Sodium Bicarbonate 4.2% 5ml given infiltrate right wrist onver tara Transaction, Provider Unknown - 02/06/2017 11:39 AM PDT Nurse Progress Note by Lary Stuart RN at 02/06/17 1139 Author: Lary Stuart RN Service: Cardiac, Thoracic, and Vascular Surgery Author Typ e: Registered Nurse Filed: 02/11/17 1030 Date of Service: 02/06/171138 Status: Addendum Telephone Installer: Lary Stuart RN (Registered Nurse) Related Notes: [...] | | | | | [place] | | | | | | [address] | | | | | | | [...] EXTERNAL | | | | performed at [facility], [address] | | LAB | | | | [address], | | | | | | [place] [address] | | | | + + + [...] | | | | | performed at [facility];[employer] | | | | | | [facility];[place], [place] | | | | | | [address] | | | | + + + [...] | | | Basophils | performed at [facility];[address] | K[address]uL | LAB | | | | [address];[place] | | | | | | [address] | | | | + + + [...] | | | Calculated | performed at [facility], [address] | | LAB | | | | [address], | | | | | | [place] [address] | | | | + + + [...] | | | | | | at [facility];[address] [place] [address] | | | | | | [facility];[place] [address] | | | | + + + [...]
--- OUTSIDE RECORDS SUMMARY | ~2019-12-21 | XMS | Encounter Summary ---
Demographics + + + | Address | [address] | | | [place] [address] | + + + | Home Phone [...] Author + + + | Author | [facility] | + + + | Organization | [facility] | + + + | Address | Unknown | + + + | Phone | Unavailable | + + + Support + + + + + | Name | Relationship | Address | Phone | + + + + + | Toby Latham | [place] | [address] | | | | | [place] | | | | | [address] | | + + + + + Care Team Providers + +------+ + | Care Wash Operator Name | Role | Phone | + +------+ + PCP | Unavailable | + +------+ + Encounter Details +--------+ + + + + | Date | Type | Department | Care Team | Description | +--------+ + + + + | 01/14/ | Abstract | [facility] | Clinic, Surgery | | | 2019 | | [facility] [address] | | | | | | [address] | | | | | | Mailcode: [facility] | | | | | | [facility] | | | | | | Healing, [address] | | | | | | [facility] [place] | | | | | | [address] | | | | | | [phone] | | | +--------+ + + + [...] | | 2019 | Visit | | [address] | | | | | | [address] | | | | | | [place], [place] | | | | | | [address] | | | | | | [phone] | | | | | | | | +--------+---------+ + + + documented as of this encounter Visit Diagnoses Not on filedocumented in this encounter"
--- OUTSIDE RECORDS SUMMARY | ~2019-12-21 | XMS | Encounter Summary ---
Demographics + + + | Address | [address] [address] | | | [place] [address] | + + + | Home Phone [...] Team Providers + +------+ + | Care Plywood Matcher Name | Role | Phone | + [...] | | | | | hy, | [address] | [address] | | | | | unspecified | [place], | [place], [place] | | | | | Elevated | [place] [address] | [address] | | | | | C-reactive | Phone: | Phone: | | | | | protein | [phone] | [phone] | | | | | (CRP) Other | Fax: | Fax: | | | | | specified | [phone] | [phone] | | | | | abnormal | [...] + + | 05/04/ | Office | [facility] | Arturo Gray | Positive NICKIE | | 2019 | Visit | RHEUMATOLOGY [address] | MD Tien [address] | (antinuclear | | | | [address] | [address] | antibody) (Primary | | | | [place] | [place] [address] | Dx); Chronic kidney | | | | [address] | [phone] | disease, stage 3 | | | | [phone] | | (HCC); SS-B antibody | | [...] encounter Patient Instructions Patient Instructions Serena Forman, Marble Machine Tender - 05/04/2019 8:30 AM JUANCARLOSWe hope t hat you have experienced exceptional care today and that you found our service to be courteo us and helpful. If you have any questions, you can send us a message/request using Yext or call our o ffice at [phone]. To reach the Marble Machine Tender , dial rqyaucdri - [phone]- Serena Jose J GARRISON If you are [...] You can also review your results on Lecturiohart. 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 I reassured patient that NICKIE [...] CHAN | | | | | | [address] | | | | | | | [...] - 1.030 | REFERENCE | | | [place], | | | LAB | | | [...] REFERENCE | | | | performed at [facility];[address] | | LAB | | | | [place] | | [facility] | | | | [address];[place] [address] | | LABORATORY | | + + + + + + + + | Specimen | + + | Urine | + + + + + + + | Performing | Address | City/State/Zipcode | Phone Number | | Organization | | | | + + + + + | REFERENCE LAB | [address] | [place] | [phone] | | [facility] | [address] | [address] | | | LABORATORY | | | | + + + + + | REFERENCE LAB | [address] [facility] [facility] [facility] | [place] | | | [facility] | [address] | [address] | | | LABORATORY | | | [...] | | | RATIO,URINE | performed at [facility];[address] | | LAB | | | | [facility] | | [facility] | | | | Bl;[place] [address] | | LABORATORY | | + + + + + + + + | Specimen | + + | Urine | + + + + + + + | Performing | Address | City/State/Zipcode | Phone Number | | Organization | | | | + + + + + | REFERENCE LAB | [address] [place] [address] | [place], [place] | [phone] | | [facility] | [address] | [address] | | | LABORATORY | | | | + + + + + | REFERENCE LAB | [address] [place] [address] | [place], [place] | | | [facility] | Bl[address] | [address] | | | LABORATORY | | | [...] REFERENCE | | | | performed at [facility];[address] | | LAB | | | | [place] | | [facility] | | | | [address];[place] [address] | | LABORATORY | | + + + + + + + + | Specimen | + + | Blood | + + + + + + + | Performing | Address | City/State/Zipcode | Phone Number | | Organization | | | | + + + + + | REFERENCE LAB | [address] [facility] | [place] | [phone] | | [facility] | [address] | [address] | | | LABORATORY | | | | + + + + + | REFERENCE LAB | [address] [facility] | [place] | | | [facility] | [address] | [address] | | | LABORATORY | | | [...] | | | Qual | performed at [facility], [address] | | LAB | | | | [address] [facility] | | [facility] | | | | [place] [address] | | LABORATORY | | + + [...] | | | | | with both OH-3 and | | | | | | [...] | | 3 Antibody | performed by [facility], | | LAB | | | | [address], | | [facility] | | | | [facility] [address] | | LABORATORY | | + + + + + + + + | Specimen | + + | Blood | + + + + + + + | Performing | Address | City/State/Zipcode | Phone Number | | Organization | | | | + + + + + | REFERENCE LAB | [address] [place] [address] | [place], [place] | [phone] | | [facility] | [address] | [address] | | | LABORATORY | | | | + + + + + | REFERENCE LAB | [address] [place] [address] | [place], [place] | | | [facility] | [address] | [address] | | | LABORATORY | | | [...] | | | COMPLEMENT | performed at [facility];[address] | | LAB | | | | [place] | | [facility] | | | | [address];[place] [address] | | LABORATORY | | + + + + + + + + | Specimen | + + | Blood | + + + + + + + | Performing | Address | City/State/Zipcode | Phone Number | | Organization | | | | + + + + + | REFERENCE LAB | [address] [place] [address] | [place], [place] | [phone] | | [facility] | [address] | [address] | | | LABORATORY | | | | + + + + + | REFERENCE LAB | [address] [place] [address] | [place], [place] | | | [facility] | Blvd[address] | [address] | | | LABORATORY | | | [...] criterion | | | | | | ([employer] | | | | | [...] | | | | | validated by [employer] | | | | | | Diagnostics, [...] by | | | | | | [employer] | | | | | | Inc.June | | | | | | 4, 2019 dsDNA (nDNA) | | | | | | Scrn by Curt will | | | | | | be made non-orderable. | | | | | | [facility] offers [id number] | | | | | | dsDNA Curt perez | | | | | | IFA. For further | | | | | | information, please | | | | | | contact your local | | | | | | [facility] | | | | | | Dross Puller.Testing | | | | | | performed at [employer] | | | | | | [employer], [address] | | | | | | [employer], [facility] | | | | | | [address],[place], [place] | | | | | | [phone]. | | | | + + + + + + + + | Specimen | + + | Blood | + + + + + + + | Performing | Address | City/State/Zipcode | Phone Number | | Organization | | | | + + + + + | REFERENCE LAB | [address] [facility] | [place] | [phone] | | [facility] | [address] | [address] | | | LABORATORY | | | | + + + + + | REFERENCE LAB | [address] [facility] | [place] | | | [facility] | [address] | [address] | | | LABORATORY | | | [...] | | | | | | at [facility], [address] | | | | | | [place] | | | | | | [address] | | | | + + + + + + + + | Specimen | + + | Blood | + + + + + + + | Performing | Address | City/State/Zipcode | Phone Number | | Organization | | | | + + + + + | REFERENCE LAB | [address] | [place] | [phone] | | [facility] | [address] | [address] | | | LABORATORY | | | | + + + + + | REFERENCE LAB | [address] [facility] | [place] | | | [facility] | Blvd[address] | [address] | | | LABORATORY | | | [...] | | | | | performed at [facility], [address] | | | | | | [facility] | | | | | | [place] [address] | | | | + + + + + + + + | Specimen | + + | Blood | + + + + + + + | Performing | Address | City/State/Zipcode | Phone Number | | Organization | | | | + + + + + | REFERENCE LAB | [address] [facility] | [place], [place] | [phone] | | [facility] | [address] | [address] | | | LABORATORY | | | | + + + + + | REFERENCE LAB | [address] [facility] | [place] | | | [facility] | Blvd[address] | [address] | | | LABORATORY | | | [...] REFERENCE | | | | performed at [facility];[address] | | LAB | | | | [place] | | [facility] | | | | Blvd;[place] [address] | | LABORATORY | | + + + + + + + + | Specimen | + + | Blood | + + + + + + + | Performing | Address | City/State/Zipcode | Phone Number | | Organization | | | | + + + + + | REFERENCE LAB | [address] [facility] | [place] | [phone] | | [facility] | [address] | [address] | | | LABORATORY | | | | + + + + + | REFERENCE LAB | [address] [facility] | [place] | | | [facility] | [address] | [address] | | | LABORATORY | | | [...] REFERENCE | | | | performed at [facility];[address] | | LAB | | | | [place] | | [facility] | | | | Blvd;[place] [address] | | LABORATORY | | + + + + + + + + | Specimen | + + | Blood | + + + + + + + | Performing | Address | City/State/Zipcode | Phone Number | | Organization | | | | + + + + + | REFERENCE LAB | [address] [place] [address] | [place], [place] | [phone] | | [facility] | Blvd[address] | [address] | | | LABORATORY | | | | + + + + + | REFERENCE LAB | [address] [place] [address] | [place], [place] | | | [facility] | [address]. | [address] | | | LABORATORY | | | [...] | | | | | performed at [facility];[address] | | | | | | [facility] | | | | | | Blvd;[place] [address] | | | | | | | | | | + + + + + + + + | Specimen | + + | Blood | + + + + + + + | Performing | Address | City/State/Zipcode | Phone Number | | Organization | | | | + + + + + | REFERENCE LAB | [address] [facility] | [place] | [phone] | | [facility] | [address] | [address] | | | LABORATORY | | | | + + + + + | REFERENCE LAB | [address] | [place] | | | [facility] | [address] | [address] | | | LABORATORY | | | [...] | | | Absolute | performed at [facility];[address] | [address] | LAB | | | | [place] | | [facility] | | | | [address];[place] [address] | | LABORATORY | | + + + + + + + + | Specimen | + + | Blood | + + + + + + + | Performing | Address | City/State/Zipcode | Phone Number | | Organization | | | | + + + + + | REFERENCE LAB | [address] [facility] | [place] | [phone] | | [facility] | [address] | [address] | | | LABORATORY | | | | + + + + + | REFERENCE LAB | [address] | [place] | | | [facility] | [address] | [address] | | | LABORATORY | | | [...]
--- OUTSIDE RECORDS SUMMARY | ~2019-12-21 | XMS | Encounter Summary ---
Demographics + + + | Address | [address] [address] | | | [place] [address] | + + + | Home Phone | | + + + | Preferred Language | Unknown | + + + | Marital Status | Single | + + + | Adventist Affiliation | 1077 | + + + [...] Team Providers + +------+ + | Care On Call Pharmacy Technician Name | Role | Phone | [...] [place] | | | | | [place] OFFICE | [place] [address] | [address] Phone: | | | | | OUTPATIENT | Phone: | [phone] | | | | | VISIT 15 | [phone] | Fax: | | | | | MINUTES CC | Fax: | [phone] | | | | | FOLLOW UP | [phone] | | +--------+--------+ + + + + [...] | | | | [place] | [address] | excess calories with | | | | [address] | | body mass index | | | | [phone] | | (BMI) of 45.0 to | [...] kidney and ureter. How to say it YV-fne-gdo-SKOP-ik KUI-riv-RWNC-ud-zzat-BOB-tuh-joey Getting readyfor surgery Follow any instructions from your healthcare provider. Tell your provider about any medicines you are taking. You may need to stop taking all or s ome of these before the test. These include: All prescription medicines Blood-thinning medicines (anticoagulants) Gngt-wgt-zbigiqo medicines such as aspirin or ibuprofen Street [...] discuss these with you. Date Last Reviewed: 12/10/201619996136-4493 [employer]. [address] [place] [address]. All righ ts reserved. This information is not intended as a substitute for professional medical care. Always follow your healthcare professional's instructions. documented in this encounter Progress Notes Patrice Cross MD - 05/15/2018 1:30 PM PDTFormatting of this note might be different from t harini quinones. [place] [facility] OFFICE NOTE Primary Care Physician: Sarah [...] FLEXIBLE SIGMOIDOSCOPY; Surgeon: Mehul Bowles MD; Location: [facility] MAIN OR COLONOSCOPY 05/22/2017 FINGER SURGERY Right [...] at 13:24 CC: Sarah Gallegos MD [address] [place] [address] documented in this encou nter Plan of Treatment +--------+---------+ + + + | Date | Type | Specialty | Care Team | Description | +--------+---------+ + + + | 03/17/ | Office | Cardiology | Lorraine Clifton DO | | | 2020 | Visit | | [address] | | | | | | [place] | | | | | | [address] | | | | | | | [...] 1.001 - 1.030 | | | | [place], | | | | | | UA, [...]
--- OUTSIDE RECORDS SUMMARY | ~2019-12-21 | XMS | Encounter Summary ---
Demographics + + + | Address | [address] | | | [place] [address] | + + + | Home Phone [...] Author + + + | Author | [facility] | + + + | Organization | [facility] | + + + | Address | Unknown | + + + | Phone | Unavailable | + + + Support + + + + + | Name | Relationship | Address | Phone | + + + + + | Toby Latham | [place] | [address] | | | | | [place] | | | | | [address] | | + + + + + Care Team Providers + +------+ + | Care Fabrication Technician Name | Role | Phone | + +------+ + | Sarah Carroll MD | PCP | | + +------+ + Encounter Details +--------+ + + + + | Date | Type | Department | Care Team | Description | +--------+ + + + + | 05/27/ | Hospital | Radiology/Imaging | Milton Mora, | | | 2019 | Encounter | Lab at [facility] [address] | PA-C [address] | | | | | [address] [place] Mailcode: | [place], [place] | | | | | [facility] | [address] | | | | | Health and Healing, | [phone] | | | | | [place] [address] [facility] | | | | | | Floor [place], [place] | | | | | | [address] | | | | | | [phone] | | | +--------+ + + + [...] Orthopedics | Richard Harvey, | | | 2020 | Visit | | [address] | | | | | | [address] | | | | | | [place], [place] | | | | | | [address] | | | | | | [phone] | | | | | | | [...]
--- OUTSIDE RECORDS SUMMARY | ~2019-12-21 | XMS | Encounter Summary ---
Demographics + + + | Address | [address] [address] | | | [place] [address] | + + + | Home Phone | | + + + | Preferred Language | Unknown | + + + | Marital Status | Single | + + + | Pentecostalism Affiliation | 1077 | + + + | Race | Unknown | + + + | Ethnic Group | Unknown | + + + Author + + + | Author | [facility] | | | and [place] | + + + | Organization | [facility] | | | [...] Team Providers + +------+ + | Care Honing Machine Operator Semiautomatic Name | Role | Phone | + +------+ + | Sarah Carroll MD | PCP | | + +------+ + Encounter Details +--------+ + + + + | Date | Type | Department | Care Team | Description | +--------+ + + + + | 12/13/ | Virtual | [facility] | Jewel Ulloa MD | Chronic kidney | | 2019 | Office | NEPHROLOGY [place] | [address] [place] | disease, stage 3 | | | Visit | [address] | [address] [place], [place] | ([facility]) (Primary Dx); | | | | [address] | [address] | Anemia of chronic | | | | [place], [place] | | renal failure, stage | | | | [address] | | 3 (moderate) ([facility]); | | | | [phone] | | Persistent | | | | [...] | | | | 59.9 in adult ([facility]); | | | | | | [...] RFP, CBC, uric acid, iPTH, Urine total qocqlvu-sm-yxkqvomsjx ratio before he comes back in 12 [...] RFP, CBC, uric acid, iPTH, Urine total sokfpya-dl-qmsuoszfuf ratio before he comes back in 12 months. Clinical discussion length: 11-20 min (03556) Patient has not been seen in office [...] | | | | | [place] | | | | | | [address] | | | | | | | [...]
--- OUTSIDE RECORDS SUMMARY | ~2019-12-21 | XMS | Encounter Summary ---
Demographics + + + | Address | [address] | | | [place] [address] | + + + | Home Phone [...] [place] | | | | | [address] | | + + + + + Care Team Providers + +------+ + | Care Curtain Supervisor Name | Role | Phone | [...] | | [address] Mailcode: | [place], [place] | | | | | [facility] | [address] | | | | | Health and Healing, | [phone] | | | | | [address] [address] [facility] | | | | | | Floor [place], [place] | | | | | | [address] | | | | | | [phone] | | | +--------+ + + + [...] Rd | | | | | | [place], [place] | | | | | | [address] | | | | | | [phone] | | | | | | | [...]
--- OUTSIDE RECORDS SUMMARY | ~2019-12-21 | XMS | Encounter Summary ---
Demographics + + + | Address | [address] | | | [place] [address] | + + + | Home Phone [...] [place] | | | | | [address] | | + + + + + Care Team Providers + +------+ + | Care Bee Keeper Name | Role | Phone | + +------+ + | Sarah Carroll MD | PCP | | + +------+ + Encounter Details +--------+ + + + + | Date | Type | Department | Care Team | Description | +--------+ + + + + | 07/11/ | Anesthesia | [facility] [address] | Binh Bl[place], | | | 2019 | Event | [address] | [address] | | | | | [place], [place] | [address] | | | | | [address] | [place], [place] | | | | | [phone] | [address] | | | | | | [phone] | | | | | | | | +--------+ + + + + Anesthesia Record + + + + + | Procedure Name | Responsible | Anesthesia Start | Anesthesia Stop Time | | | Anesthesiologist | Time | | + + + + + | GI LAB COLONOSCOPY | | | | | IN [place] (canceled) | | | | + + + + + + + | No events on file. | + + +------+ | Meds | +------+ + + + No medications | on file. | + + + + + | No agents on file. | + + + + | No blood administrations on file. | + + + + | No LDAs on file. | + + documented in this encounter Social [...] [address] | | | | | | [place], [place] | | | | | | [address] | | | | | | [phone] | | | | | | | | +--------+---------+ + + + documented as of this encounter Visit Diagnoses Not on filedocumented in this encounter"
--- OUTSIDE RECORDS SUMMARY | ~2019-12-21 | XMS | Encounter Summary ---
Demographics + + + | Address | [address] | | | [place] [address] | + + + | Home Phone [...] + + + | Author | [facility] | + + + | Organization | [facility] | + + [...] [place] | | | | | [address] | | + + + + + Care Team Providers + +------+ + | Care Line Fisher Name | Role | Phone | + [...] | villous | [address] | [place] | | | | | adenoma | [address] | [address] | | | | | Procedures | Rd | floor | | | | | CONSULT TO | [place], [place] | [place], [place] | | | | | GI PROCEDURE | [address] | [address] | | | | | UNIT: | Phone: | Phone: | | | | | COLONOSCOPY | [phone] | [phone] | | | | | | Fax: | Fax: | | | | | | [phone] | [phone] | +--------+--------+ + + + + Encounter Details +--------+ + + + + | Date | Type | Department | Care Team | Description | +--------+ + + + + | 04/14/ | Customer Service Receptionist | [facility] | [place], | Polyp of colon, | | 2018 | | [facility] [address] | [address] | villous adenoma | | | | [address] Mailcode: | [address] | (Primary Dx) | | | | [facility] | [place], [place] | | | | | Health and Healing, | [address] | | | | | Building [address] | [phone] | | | | | [place], [place] | | | | | | [address] | | | | | | [phone] | | | +--------+ + + + [...] Rd | | | | | | [place], [place] | | | | | | [address] | | | | | | [phone] | | | | | | | | +--------+---------+ + + + documented as of this encounter Visit Diagnoses + + | Diagnosis | + + | Polyp of colon, villous adenoma - Primary Benign neoplasm of colon | + + documented in this encounter"
--- OUTSIDE RECORDS SUMMARY | ~2019-12-21 | XMS | Encounter Summary ---
Demographics + + + | Address | [address] | | | [place] [address] | + + + | Home Phone | | + + + | Preferred Language | Unknown | + + + | Marital Status | Single | + + + | Episcopalian Affiliation | LDS | + + + | Race | White | + + + | Ethnic Group | Not or | + + + Author + + + | Author | [facility] | + + + | Organization | [facility] | + + + | Address | Unknown | + + + | Phone | Unavailable | + + + Support + + + + + | Name | Relationship | Address | Phone | + + + + + | Toby Latham | ANNA | [address] | | | | | [place] | | | | | [address] | | + + + + + Care Team Providers + +------+ + | Care Freelance Photographer Name | Role | Phone | + +------+ + PCP | Unavailable | + +------+ + Encounter Details +--------+ + + + + | Date | Type | Department | Care Team | Description | +--------+ + + + + | 01/14/ | Abstract | [facility] | Clinic, Surgery | | | 2019 | | [place] [facility] [address] | | | | | | [address] | | | | | | Mailcode: [place] | | | | | | [facility] and | | | | | | Healing, Building [address] | | | | | | [facility] [place] | | | | | | [address] | | | | | | [phone] | | | +--------+ + + + [...] | | 2019 | Visit | | [address] | | | | | | [address] | | | | | | [place], [place] | | | | | | [address] | | | | | | [phone] | | | | | | | | +--------+---------+ + + + documented as of this encounter Visit Diagnoses Not on filedocumented in this encounter"
--- OUTSIDE RECORDS SUMMARY | ~2019-12-21 | XMS | Encounter Summary ---
Demographics + + + | Address | [address] [address] | | | [place] [address] | + + + | Home Phone | | + + + | Preferred Language | Unknown | + + + | Marital Status | Single | + + + | Adventist Affiliation | 1077 | + + + | Race | Unknown | + + + | Ethnic Group | Unknown | + + + Author + + + | Author | [facility] | | | and [place] | + + + | Organization | [facility] | | [...] Team Providers + +------+ + | Care Panel Monitor Name | Role | Phone | + +------+ + | Sarah Carroll MD | PCP | | + +------+ + Encounter Details +--------+---------+ + + + | Date | Type | Department | Care Team | Description | +--------+---------+ + + + | 06/15/ | Office | [facility] | eJwel Ulloa MD | Chronic kidney | | 2019 | Visit | NEPHROLOGY [place] | [address] [place] | disease, stage 3 | | | | [address] | [address] [place], [place] | (HCC) (Primary Dx); | | | | [address] | [address] | Anemia of chronic | | | | [place], [place] | | renal failure, stage | | | | [address] | | 3 (moderate) ([facility]); | | | | [phone] | | Persistent | | | | [...] 130/80; | | | | | | Bilateral leg edema; | | | | | | Hyperuricemia | +--------+---------+ + + + Social History [...] + + + | Blood Pressure | 122/72 | 06/15/2019 3:09 PM | | | | | PST | | + + + + + | Pulse | 82 | 06/15/2019 3:09 PM | | | | | PST [...] + + + + | Weight | 168.9 kg (372 lb 6.4 | 06/15/2019 3:09 PM | | | | oz) | PST | | + + + + + | Height | 180.3 cm (5' 11") | 06/15/2019 3:09 PM | | | | | PST | | + + + + + | Body Mass Index | 51.94 | 06/15/2019 3:09 PM | | | | | PST [...] Instructions Patient Instructions Jewel Ulloa MD - 06/15/2019 3:20 PM PSTDiscussions/Recommendations : I discussed today with Mr. Latham [...] I sent him for a repeat RFP, CBC in 3 months. I advised him to exercise regularly [...] RFP, CBC, uric acid, iPTH, Urine total cplrbso-yj-gkmkylqrjc ratio before he comes back in 6 months. documented in this encounter Progress Notes Jewel Ulloa MD - 06/15/2019 3:20 PM PST Patient Active Problem List Diagnosis Date Noted POA Positive INCKIE (antinuclear antibody) 06/10/2019 Unknown SS-B antibody positive 06/10/2019 Unknown Osteoarthritis 06/10/2019 Unknown Ascending aorta dilatation 06/01/2019 Unknown Subclinical hypothyroidism 03/30/2019 Unknown Hyperuricemia 01/07/2019 Unknown Malignant tumor of cecum 01/05/2019 Unknown Family history of malignant neoplasm of colon 12/01/2018 Unknown Angiomyolipoma of left kidney 10/30/2018 Unknown History of left nephrectomy 10/30/2018 Unknown Class 3 obesity with alveolar hypoventilation without serious comorbidity with body mas s index (BMI) of 50.0 to 59.9 in adult 10/27/2018 Unknown Persistent proteinuria 10/27/2018 Unknown Bilateral leg edema 07/28/2018 Unknown Chronic kidney disease, stage 3 04/17/2018 Unknown History of colon cancer 04/17/2018 Unknown Paroxysmal atrial fibrillation 04/17/2018 Unknown Renal neoplasm 04/17/2018 Unknown Anemia 01/21/2017 Unknown Obstructive sleep apnea on CPAP 01/21/2017 Unknown Anemia of chronic renal failure, stage 3 (moderate) 01/21/2017 Unknown Chronic combined systolic and diastolic congestive heart failure 03/29/2016 Unknown Chronic kidney disease, stage II (mild) 03/29/2016 Unknown Essential hypertension with goal blood pressure less than 130/80 03/29/2016 Unknown Hyperlipidemia 03/29/[address] Carroll: I saw your patient Mr. Latham in F/U. As you are familiar with his case, I will not state his past history in detail. Briefly, he is a 58 y.o. male patient with past history as del ineated above; he is here to be evaluated for his CKD & its associated complications. His most recent sCr & eGFR were 1.85 & 38. He had a left nephrectomy on 06/11/18 for a left renal mass; later found to be angiomyolipo ma. In early 12/2018, he had a stage 2 DANNY following a colonoscopy & several days of diarrhea. Recovered with hydration. The patient has history of hypertension since 2016; his BP control has been reportedly laura quate. he denies any history of prolonged exposure to NSAIDs or recent exposure to known nep hrotoxins. he denies any recurrent nephrolithiasis or pyelonephritis; he tells me that he's had no history of urinary retention, gross hematuria or dysuria; he has no incontinence symp toms. No symptoms of UTI. No history of frequency, nocturia, weak urinary stream, hesitancy, intermittence, incomplete emptying or urgency; he has 1-3 times nightly nocturia. No hist ory of passing kidney stones. He has no foamy urine either; his baseline Creatinine is TBD. There is no family history of renal genetic diseases such as PKD. He says that he feels 'good ' today. [...] hist ory, family history and problem list. *U/S from 06/2018: no evidence of any significant right renal anatomic abnormalities. There was a hematoma at the left nephrectomy site. As in History of Present Illness & in Assessment. All the pertinent systems were reviewed a nd were otherwise negative. Current Outpatient Medications: acetaminophen (TYLENOL) 500 mg tablet, Take 325 mg by mouth every 4 hours as needed fo r Pain., Disp: [...] mg tablet, Take 325 mg by mouth daily (with breakfast)., Disp: , R fl: hydrALAZINE (APRESOLINE) 50 MG tablet, Take 50 [...] mg by mouth Daily., Disp: , Rfl: Physical Exam: BP 122/72 | Pulse 82 | Ht 1.803 m (5' 11") | Wt (!) 168.9 kg (372 lb 6.4 oz) | BMI 51.9 4 kg/m Body surface area is 2.91 meters squared. General appearance: Pleasant, not in acute distress. [...] are normal. Lab Results Component Value Date HGB 12.3 (A) 06/12/2019 HGB 13.0 (L) 05/04/2019 HCT 38.9 (L) 05/04/2019 NA 139 06/12/2019 K 4.4 06/12/2019 CL 98 06/12/2019 CO2 16 06/12/2019 BUN 36 (A) 06/12/2019 CREA 2.33 (A) 06/12/2019 CALCIUM 9.4 06/12/2019 CALCIUM 8.9 05/04/2019 ALBUMIN 4.1 06/12/2019 EGFR 29.0 (A) 06/12/2019 PTH 59.34 10/16/2018 LABPROT 240.0 (A) 06/12/2019 Old Labs: Lab Results Component Value Date BUN 40 (A) 02/04/2019 CREATININE 2.35 (A) 02/04/2019 EGFR 29 (A) 02/04/2019 NA 139 02/04/2019 K 4.5 02/04/2019 CL 100 02/04/2019 CO2 24 02/04/2019 CA 9.0 02/04/2019 PHOS 2.9 01/19/2019 ALB 3.8 01/19/2019 HGB 12.9 (A) 02/04/2019 URICACID 9.9 (A) 12/18/2018 WBC 7.2 02/04/2019 HCT 38.8 (A) 02/04/2019 FERRITIN 63.32 12/18/2018 LABIRON 30.3 12/18/2018 LABPROT 212.3 (A) 02/04/2019 Assessment: Mr. Latham is a 58 y.o. [...] at this time vs 01/2019 (adjusted to his BSA, his M DRD eGFR is much higher than reported on labs)* BLOOD PRESSURE: Reports it ok at home BLOOD SUGAR: Reports it okay ELECTROLYTES: His potassium is often at the upper limit of normal ANEMIA: Mild; being managed thru your office VITAMIN D: To be checked thru your office PARATHYROID HORMONE: ok URIC ACID: Up PROTEINURIA: mild URINALYSIS: No UTI or hematuria [...] I sent him for a repeat RFP, CBC in 3 months. I advised him to exercise regularly [...] RFP, CBC, uric acid, iPTH, Urine total ywtegoo-qm-bdhrkthjtt ratio before he comes back in 6 months. I spent 15 minutes of this 25-minute visit in education, counseling and answering all of hi s questions to his satisfaction. Thank you Dr Carroll for the opportunity to see this patient in F/U today. Please do not hesi palacios to call me at any time with questions or concerns. Truly yours, Jewel Ulloa MD FACP [facility] documented in this enco unter Plan of Treatment +--------+---------+ + + + | Date | Type | Specialty | Care Team | Description | +--------+---------+ + + + | 03/17/ | Office | Cardiology | Lorraine Clifton DO | | | 2019 | Visit | | [address] | | | | | | [place] | | | | | | [address] | | | | | | | | +--------+---------+ + + + documented as of this encounter Visit Diagnoses + + | Diagnosis | + + | Chronic kidney disease, stage 3 (HCC) - Primary | + + | Anemia of chronic renal failure, stage 3 (moderate) (HCC) | + + | Persistent proteinuria Proteinuria | + + | Class 3 obesity with alveolar hypoventilation without serious comorbidity with body | | mass index (BMI) of 50.0 to 59.9 in adult ([facility]) | + + | Essential hypertension with goal blood pressure less than 130/80 | + + | Bilateral leg edema Edema | + + | Hyperuricemia Other abnormal blood chemistry | + + documented in this encounter
--- OUTSIDE RECORDS SUMMARY | ~2019-12-21 | XMS | Encounter Summary ---
Demographics + + + | Address | [address] [address] | | | [place] [address] | + + + | Home Phone [...] Team Providers + +------+ + | Care Stone Trimmer Name | Role | Phone | + +------+ + | Sarah Carroll MD | PCP | | + +------+ + Encounter Details +--------+ + + + + | Date | Type | Department | Care Team | Description | +--------+ + + + + | 10/16/ | Orders Only | [facility] | Jewel Ulloa MD | | | 2019 | | NEPHROLOGY [place] | [address] [place] | | | | | [address] [place] | [address] [place], [place] | | | | | [address] [place], [place] | [address] | | | | | [address] | | | | | | [phone] | | | +--------+ + + + [...] | | | | | [place] | | | | | | [address] | | | | | | | [...] | | | LAB | | | [place] | | | | | + + [...]
--- OUTSIDE RECORDS SUMMARY | ~2019-12-21 | XMS | Encounter Summary ---
Demographics + + + | Address | [address] | | | [place] [address] | + + + | Home Phone | | + + + | Preferred Language | Unknown | + + + | Marital Status | Single | + + + | Quaker Affiliation | LDS | + + + | Race | White | + + + | Ethnic Group | Not or | + + + Author + + + | Author | [facility] | + + + | Organization | [facility] | + + + | Address | Unknown | + + + | Phone | Unavailable | + + + Support + + + + + | Name | Relationship | Address | Phone | + + + + + | Toby Latham | ANNA | [address] | | | | | [place] | | | | | [address] | | + + + + + Care Team Providers + +------+ + | Care Auto Salvage Worker Name | Role | Phone | [...] 07/02/ | Telephone | [facility] | [place], | Telephone follow-up | | 2019 | | [facility] [address] | [address] | | | | | [address] Mailcode: | [address] | | | | | [facility] | [place], [place] | | | | | Health and Healing, | [address] | | | | | [address] | [phone] | | | | | [place], [place] | | | | | | [address] | | | | | | [phone] | | | +--------+ + + + [...] Rd | | | | | | [place], [place] | | | | | | [address] | | | | | | [phone] | | | | | | | | +--------+---------+ + + + documented as of this encounter Visit Diagnoses Not on filedocumented in this encounter"
--- OUTSIDE RECORDS SUMMARY | ~2019-12-21 | XMS | Encounter Summary ---
Demographics + + + | Address | [address] [address] | | | [place] [address] | + + + | Home Phone | | + + + | Preferred Language | Unknown | + + + | Marital Status | Single | + + + | Yazidi Affiliation | 1077 | + + + [...] Team Providers + +------+ + | Care Floating Operator Name | Role | Phone | [...] + + | 02/06/ | Telephone | [facility] | Patrice Cross MD | Other | | 2018 | | [address] [place] | [address] | | | | | [address] [place], [place] | [address] [place], [place] | | | | | [address] | [address] | | | | | [phone] | | | +--------+ + + + [...] [place] | | | | | | [address] | | | | | | | | +--------+---------+ + + + documented as of this encounter Visit Diagnoses Not on filedocumented in this encounter"
--- OUTSIDE RECORDS SUMMARY | ~2019-12-21 | XMS | Encounter Summary ---
Demographics + + + | Address | [address] [address] | | | [place] [address] | + + + | Home Phone | | + + + | Preferred Language | Unknown | + + + | Marital Status | Single | + + + | Adventist Affiliation | 1077 | + + + | Race | Unknown | + + + | Ethnic Group | Unknown | + + + Author + + + | Author | [facility] | | | and [place] | + + + | Organization | [facility] | | [...] Team Providers + +------+ + | Care Stem Roller Operator Name | Role | Phone | + +------+ + | Sarah Carroll MD | PCP | | + +------+ + Reason for Visit +---------+ + | Reason | Comments | +---------+ + | Results | 12/10/19 | +---------+ + Encounter Details +--------+ + + + + | Date | Type | Department | Care Team | Description | +--------+ + + + + | 12/10/ | Documentati | [facility] | Nolen, | Results (12/10/19) | | 2020 | on | NEPHROLOGY [place] | [facility] | | | | | [address] [place] | [employer] | | | | | [address] [place], [place] | | | | | | [address] | | | | | | [phone] | | | +--------+ + + + [...] | | | | | [place] | | | | | | [address] | | | | | | | | +--------+---------+ + + + documented as of this encounter Procedures + +--------+ + + + | Procedure Name | Priori | Date/Time | Associated Diagnosis | Comments | | | ty | | | | + +--------+ + + + | EXTERNAL LAB: [facility], | Routin | 12/10/2019 | | Results for this | | INTACT | e | | | procedure are in the | | | | | | results section. | + +--------+ + + + | CBC NO DIFFERENTIAL | Routin | 12/10/2019 | | Results for this | | | e | | | procedure are in the | | | | | | results section. | + +--------+ + + + | PROTEIN/CREATININE | Routin | 12/10/2019 | | Results for this | | RATIO, URINE | e | | | procedure are in the | | | | | | results section. | + +--------+ + + + | URIC ACID | Routin | 12/10/2019 | | Results for this | | | e | | | procedure are in the | | | | | | results section. | + +--------+ + + + | RENAL FUNCTION PANEL | Routin | 12/10/2019 | | Results for this | | | e | | | procedure are in the | | | | | | results section. | + +--------+ + + + documented in this encounter Results External Lab: PTH, Intact (12/10/2019) + +-------+ + + + | Component | Value | Ref Range | Performed | Pathologist | | | | | At | Signature | + +-------+ + + + | PTH Intact, | 57.07 | 15 - 65 | | | | External | | | | | + +-------+ + + + + + | Specimen | + + | | + + CBC with Manual Differential (12/10/2019) + + + + + + | Component | Value | Ref Range | Performed | Pathologist | | | | | At | Signature | + + + + + + | WBC | 7.1 | 4.5 - 11.0 | | | + + + + + + | RBC | 3.65 (A) | 4.30 - 5.70 | | | | | | M/uL | | | + + + + + + | Hemoglobin | 12.6 (A) | 13.5 - 18.0 | | | + + + + + + | Hematocrit, | 38.1 (A) | 41.0 - 50.0 % | | | | POC | | | | | + + + + + + | MCV | 104.4 (A) | 81.0 - 99.0 fL | | | + + + + + + | MCH | 35.0 (A) | 27.0 - 33.0 pg | | | + + + + + + | MCHC | 33.0 | 30.0 - 36.0 | | | | | | g/dL | | | + + + + + + | Platelet | 253 | 140 - 440 | | | | Count | | | | | | Plasma | | | | | + + + + + + | RDW | 15.9 (A) | 10.5 - 15.0 | | | + + + + + + | BAL | 75 | 39 - 80 % | | | | Neutrophils | | | | | | % | | | | | + + + + + + | % | 15.4 (A) | 24 - 44 | | | | Lymphocytes | | | | | + + + + + + | Monocyte % | 5.1 | 0 - 12 | | | + + + + + + | BAL | 3 | 0 - 6 % | | | | Eosinophils | | | | | | % | | | | | + + + + + + | BF % | 2 | 0 - 2 % | | | | Basophils | | | | | + + + + + + + + | Specimen | + + | Blood | + + Renal Function Panel (12/10/2019) + + + + + + | Component | Value | Ref Range | Performed | Pathologist | | | | | At | Signature | + + + + + + | Na | 134 | 132 - 143 | | | | | | mmol/L | | | + + + + + + | K | 4.7 | 3.6 - 5.1 | | | | | | mmol/L | | | + + + + + + | Cl | 99 | 95 - 112 | | | + + + + + + | CO2 | 26 | 19 - 31 mmol/L | | | + + + + + + | Anion Gap | 14 | 7 - 21 mmol/L | | | + + + + + + | Glucose | 161 (A) | 70 - 100 mg/dL | | | + + + + + + | BUN | 31 (A) | 6 - 23 mg/dL | | | + + + + + + | Creatinine | 1.96 (A) | 0.70 - 1.33 | | | | | | mg/dL | | | + + + + + + | Estimated | 35.0 (A) | 60.0 - 140.0 | | | | GFR | | mL/min/1.73m2 | | | + + + + + + | BUN/Creatin | 15.8 | 6.0 - 28.6 | | | | ine Ratio | | | | | + + + + + + | Calcium | 9.2 | 8.5 - 10.3 | | | + + + + + + | Albumin | 4.0 | 3.5 - 5.0 g/dL | | | + + + + + + | PHOSPHORUS | 3.2 | 2.5 - 5.0 | | | + + + + + + + + | Specimen | + + | Blood | + + Protein/Creatinine Ratio, Urine (12/10/2019) + + + + + + | Component | Value | Ref Range | Performed | Pathologist | | | | | At | Signature | + + + + + + | Protein/Cre | 293.0 (A) | 0 - 150 | | | | at Ratio | | | | | + + + + + + + + | Specimen | + + | Urine | + + Uric Acid (12/10/2019) + +---------+ + + + | Component | Value | Ref Range | Performed | Pathologist | | | | | At | Signature | + +---------+ + + + | Uric Acid | 4.3 (A) | 4.4 - 7.6 | | | + +---------+ + + + + + | Specimen | + + | Blood | + + documented in this encounter Visit Diagnoses Not on filedocumented in this encounter"
--- OUTSIDE RECORDS SUMMARY | ~2019-12-21 | XMS | Clinical Summary ---
Demographics + + + | Address | [address] | | | [place] [address] | + + + | Home Phone | | + + + | Preferred Language | Unknown | + + + | Marital Status | Single | + + + | Baptist Affiliation | LDS | + + + | Race | White | + + + | Ethnic Group | Not or | + + + Author + + + | Author | [facility] | + + + | Organization | [facility] | + + + | Address | Unknown | + + + | Phone | Unavailable | + + + Support + + + + + | Name | Relationship | Address | Phone | + + + + + | Toby Latham | ECON | [address] [address] | | | | | [place] | | | | | [address] | | + + + + + Care Team Providers + +------+ + | Care Continuous Mining Machine Lode Miner Name | Role | Phone | + +------+ + | Sarah Carroll MD | PCP | | + +------+ + Source Comments [facility] is fully live on both [facility] and [facility] Allergies No Known Allergies Medications + + + +---------+------+------+-------+ | Medication | Sig | Dispensed | Refills | Star | End | Statu | | | | | | t | Date | s | | | | | | Date | | | + + + +---------+------+------+-------+ | ferrous sulfate | Take 325 mg by mouth | | 0 | | | Activ | | 325 mg (65 mg iron) | once daily. | | | | | e | | oral tablet | | | | | | | + + + +---------+------+------+-------+ | torsemide 10 mg | Take 20 mg by mouth | | 0 | | | Activ | | oral tablet | once daily. | | | | | e | + + + +---------+------+------+-------+ | levothyroxine 25 | Take 25 mcg by mouth | | 0 | | | Activ | | mcg oral tablet | before breakfast. | | | | | e | + + + +---------+------+------+-------+ | calcium-vitamin D | Take 1 tablet by | | 0 | | | Activ | | 500 mg(1,250mg) -200 | mouth three times | | | | | e | | unit oral tablet | daily. | | | | | | + + + +---------+------+------+-------+ | carvedilol 6.25 mg | Take 6.25 mg by | | 0 | | | Activ | | oral tablet | mouth two times | | | | | e | | | daily. Administer | | | | | | | | with food. | | | | | | + + + +---------+------+------+-------+ | hydrALAZINE 50 mg | Take 50 mg by mouth | | 0 | | | Activ | | oral tablet | three times daily. | | | | | e | + + + +---------+------+------+-------+ | cyanocobalamin | Inject 1,000 mcg | | 0 | | | Activ | | 1,000 mcg/mL | under the skin | | | | | e | | injection solution | (SUBC) every thirty | | | | | | | | days. | | | | | | + + + +---------+------+------+-------+ | magnesium oxide | Take 400 mg by mouth | | 0 | | | Activ | | 400 mg oral tablet | once daily. | | | | | e | + + + +---------+------+------+-------+ | colchicine 0.6 mg | Take 0.6 mg by mouth | | 0 | | | Activ | | oral tablet | two times daily. | | | | | e | + + + +---------+------+------+-------+ | allopurinol 300 mg | Take 150 mg by mouth | | 0 | | | Activ | | oral tablet | once daily. | | | | | e | + + + +---------+------+------+-------+ | atorvastatin 80 mg | Take 80 mg by mouth | | 0 | | | Activ | | oral tablet | once daily. | | | | | e | + + + +---------+------+------+-------+ | warfarin 5 mg oral | Take 5 mg by mouth | | 0 | | | Activ | | tabletIndications: | Use as directed. | | | | | e | | 3 (15mg) on | Indications: 3 | | | | | | | tuesdays, 3 (15mg) | (15mg) on tuesdays, | | | | | | | on fridays | 3 (15mg) on fridays | | | | | | + + + +---------+------+------+-------+ Active Problems + + + | Problem | Noted Date | + + + | Essential hypertension | 03/30/2019 | + + + | Subclinical hypothyroidism | 03/30/2019 | + + + | Chronic kidney disease, stage 3 | 03/30/2019 | + + + + + | Overview: s/p left nephrectomy | + + + + + | SUZI (obstructive sleep apnea) | 03/30/2019 | + + + + + | Overview: on cpap | + + + + + | Hyperlipidemia | 03/30/2019 | + + + | Morbid obesity with BMI of 40.0-44.9, adult | 03/30/2019 | + + + | History of colon cancer | 03/30/2019 | + + + + + | Overview: s/p resection in 2016 | + + + + + | Paroxysmal atrial fibrillation | 03/30/2019 | + + + | Congestive heart failure (CHF) | 02/10/2016 | + + + Family History + + +------+ + | Medical History | Relation | Name | Comments | + + +------+ + | Lung Cancer | Father | | | + + +------+ + | Diabetes | Mother | | | + + +------+ + + +------+ + + | Relation | Name | Status | Comments | + +------+ + + | Father | | | | + +------+ + + | Mother | | | | + +------+ + + Social [...] recent travel history available. | + + Last Filed Vital Signs + [...] | | + + + + + Plan of Treatment +--------+---------+ + + + | Date | Type | Specialty | Care Team | Description | +--------+---------+ + + + | 01/20/ | Office | Orthopedics | Richard Harvey, | | | 2019 | Visit | | [address] | | | | | | [address] | | | | | | [place], [place] | | | | | | [address] | | | | | | [phone] | | | | | | | | +--------+---------+ + + + + + + + + | Health Maintenance | Due Date | Last Done | Comments | + + + + + | Pneumococcal | | | | | vaccination ( | 7 | | | | - PCV13) | | | | + + + + + | Influenza (Flu) | Completed | 05/29/2019, 05/14/2018, | | | vaccination | | 04/22/2017, Additional history | | | | | exists | | + + + + + Results Not on filefrom Last 3 Months Insurance +-------+--------+ +--------+ + +------+ | Payer | Benefi | Subscriber | Effect | Phone | Address | Type | | | t Plan | ID | ascencion | | | | | | / | | Dates | | | | | | Group | | | | | | +-------+--------+ +--------+ + +------+ | MODA | MODA | [phone] | 08/12/19 | [phone] | [address] | PPO | | | [place] | | 20-Pre | 4 | [id number] | | | | [place] | | sent | | [place], | | | | | | | | [place] [address] | | +-------+--------+ +--------+ + +------+ + +--------+ +--------+ + + | Guarantor Name | Accoun | Relation to | Date | Phone | Billing Address | | | t Type | Patient | of | | | | | | | | | | + +--------+ +--------+ + + | Aaron Latham | Person | Self | [birth year] | [address] | | | al/Fam | | 1960 | [phone] | [address] [place] | | | renetta | | | 1 (Home) | [address] | + +--------+ +--------+ + + Advance Directives + + + + + | Code Status | Date | Date | Comments | | | Activated | Inactivated | | + + + + + | Full Code | 07/10/2019 | 07/14/2019 | | | | 11:45 AM | 7:24 PM | | + + + + +
--- OUTSIDE RECORDS SUMMARY | ~2019-12-21 | XMS | Encounter Summary ---
Demographics + + + | Address | [address] [address] | | | [place] [address] | + + + | Home Phone | | + + + | Preferred Language | Unknown | + + + | Marital Status | Single | + + + | Mandaen Affiliation | 1077 | + + + | Race | Unknown | + + + | Ethnic Group | Unknown | + + + Author + + + | Author | [facility] | | | and [place] | + + + | Organization | [facility] | | [...] Team Providers + +------+ + | Care Roaster Operator Name | Role | Phone | + +------+ + | Sarah Carroll MD | PCP | | + +------+ + Encounter Details +--------+ + + + + | Date | Type | Department | Care Team | Description | +--------+ + + + + | 12/13/ | Orders Only | [facility] | Jewel Ulloa MD | Essential | | 2020 | | NEPHROLOGY [place] | [address] [place] | hypertension with | | | | [address] [place] | [address] [place], [place] | goal blood pressure | | | | [address] [place], [place] | [address] | less than 130/80 | | | | [address] | | (Primary Dx); | | | | [phone] | | Subclinical | | | | [...] | | | | | [place] [address] [place] | | | | | | [address] | | | | | | | [...] | | | | | | (moderate) ([facility]) | | | | | | Persistent [...] | | | | | | (moderate) ([facility]) | | | | | | Persistent [...] 3 | | | | | | ([facility]) | | | | | | Angiomyolipoma of | | | | | | left kidney Anemia | | | | | | of chronic renal | | | | | | failure, stage 3 | | | | | | (moderate) ([facility]) | | | | | | Persistent [...] 3 | | | | | | ([facility]) | | | | | | Angiomyolipoma of | | | | | | left kidney Anemia | | | | | | of chronic renal | | | | | | failure, stage 3 | | | | | | (moderate) ([facility]) | | | | | | Persistent [...]
--- OUTSIDE RECORDS SUMMARY | ~2019-12-21 | XMS | Encounter Summary ---
Demographics + + + | Address | [address] | | | [place] [address] | + + + | Home Phone | | + + + | Preferred Language | Unknown | + + + | Marital Status | Single | + + + | Anabaptism Affiliation | LDS | + + + | Race | White | + + + | Ethnic Group | Not or | + + + Author + + + | Author | [facility] | + + + | Organization | [facility] | + + + | Address | Unknown | + + + | Phone | Unavailable | + + + Support + + + + + | Name | Relationship | Address | Phone | + + + + + | Toby Latham | ANNA | [address] | | | | | [place] | | | | | [address] | | + + + + + Care Team Providers + +------+ + | Care Food Service Clerk Name | Role | Phone | [...] + + | 04/14/ | Anesthesia | [facility] | Paddy Pearson, | | | 2019 | Event | [facility] [address] | DO [address] | | | | | [place] Mailcode: | [address] | | | | | [address] for | [place], [place] | | | | | Health and Healing, | [address] | | | | | [facility] [address] | [phone] | | | | | [place], [place] | | | | | | [address] | | | | | | [phone] | | | +--------+ + + + [...] Rd | | | | | | [place], [place] | | | | | | [address] | | | | | | [phone] | | | | | | | [...]
--- OUTSIDE RECORDS SUMMARY | ~2019-12-21 | XMS | Encounter Summary ---
Demographics + + + | Address | [address] [address] | | | [place] [address] | + + + | Home Phone [...] Team Providers + +------+ + | Care Ski Molder Name | Role | Phone | + [...] + + | 02/06/ | Telephone | [facility] | Patrice Cross MD | Other | | 2018 | | [address] [place] | [address] | | | | | [address] [place], [place] | [address] [place], [place] | | | | | [address] | [address] | | | | | [phone] | | | +--------+ + + + [...] [place] | | | | | | [address] | | | | | | | | +--------+---------+ + + + documented as of this encounter Visit Diagnoses Not on filedocumented in this encounter"
--- OUTSIDE RECORDS SUMMARY | ~2019-12-21 | XMS | Encounter Summary ---
Demographics + + + | Address | [address] [address] | | | [place] [address] | + + + | Home Phone [...] + + | Author | [facility] | | | and [place] | + + + | Organization | [facility] | | | [...] + +------+ + | Care Manager Of Development Name | Role | Phone | [...] | | | | low back | [address] | [address] | | | | | pain with | [place], | [place], [place] | | | | | bilateral | [place] [address] | [address] | | | | | sciatica | Phone: | Phone: | | | | | Bilateral | [phone] | [phone] | | | | | foot-drop | Fax: | Fax: | | | | | Numbness of | [phone] | [phone] | | | | | both lower [...] | bilateral | [address] | | | | n | low back | [address] | [place], | | | | | pain with | [place], | [place] [address] | | | | | bilateral | [place] [address] | Phone: | | | | | sciatica | Phone: | [phone] | | | | | Bilateral | [phone] | Fax: | | | | | foot-drop | Fax: | [phone] | | | | | Numbness of | [phone] | | | | | | both lower | | | | | | | extremities | | | | | | | Procedures | | | | | | | TX MOTOR | | | | | | | &/SENS / | | | | | | | NRV CNDJ | | | | | | | PRECONF | | | | | | | ELTRODE LIMB | | | | | | | TX NEEDLE | | | | | | | EMG EA | | | | | | | EXTREMITY | | | | | | | W/PARASPINL | | | | | | | AREA LIMITED | | | | | | | TX MOTOR | | | | | | | &/SENS - | | | | | | | NRV CNDJ | | | | | | | PRECONF | | | | | | | ELTRODE LIMB | | | | | | | TX OFFICE | | | | | | [...] Rehabilitatio | | [address] | [address] | | | | n | | [address] | [place], | | | | | | [place], | [place] [address] | | | | | | [place] [address] | Phone: | | | | | | Phone: | [phone] | | | | | | [phone] | Fax: | | | | | | Fax: | [phone] | | | | | | [phone] | | +--------+--------+ + + + + Encounter Details +--------+---------+ + + + | Date | Type | Department | Care Team | Description | +--------+---------+ + + + | 12/15/ | Office | [facility] | Riccardo Malhotra, | Bilateral foot-drop | | 2019 | Visit | PHYSIATRY [address] | MD [address] | (Primary Dx); | | | | [address] | [place] | Chronic bilateral | | | | [place] | [address] | low back pain with | | | | [address] | | bilateral sciatica; | | | | [phone] | | Meralgia | | | | [...] encounter Patient Instructions Patient Instructions Bianca Hernandez, Clinical Ob - 12/15/2018 1:00 PM PDTX-rays have been [...] renal failure, stage 3 (moderate) ([facility]) Angiomyolipoma of left kidney status [...] FLEXIBLE SIGMOIDOSCOPY; Surgeon: Mehul Bowles MD; Location: [facility] MA[facility] OR COLONOSCOPY 05/22/2017 FINGER SURGERY Right 1974 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 In summary, [...] documentation, as scribed by in my presence, FRANSISCO Castro and are both accurate and complete. [...] [place] | | | | | | [address] | | | | | | | [...] + +--------+ + + | * [facility] [place] | Outpatient | Routin | Chronic [...]
--- OUTSIDE RECORDS SUMMARY | ~2019-12-21 | XMS | Encounter Summary ---
Demographics + + + | Address | [address] | | | [place] [address] | + + + | Home Phone | | + + + | Preferred Language | Unknown | + + + | Marital Status | Single | + + + | Mu-Ism Affiliation | LDS | + + + | Race | White | + + + | Ethnic Group | Not or | + + + Author + + + | Author | [facility] | + + + | Organization | [facility] | + + + | Address | Unknown | + + + | Phone | Unavailable | + + + Support + + + + + | Name | Relationship | Address | Phone | + + + + + | Toby Latham | ANNA | [address] | | | | | [place] | | | | | [address] | | + + + + + Care Team Providers + +------+ + | Care Rn Lpn Cna Name | Role | Phone | + [...] + +--------+ + + + + | New Request | | Gastroenterol | Diagnoses | | [facility] | | | | ogy | Polyp of | [place], | [address] | | | | | colon, | MD Charles | [address] | | | | | unspecified | [address] | [place] | | | | | part of | [address] | [address] | | | | | colon, | Rd | floor | | | | | unspecified | [place], [place] | [place], [place] | | | | | type | [address] | [address] | | | | | Procedures | Phone: | Phone: | | | | | CONSULT TO | [phone] | [phone] | | | | | GI PROCEDURE | Fax: | Fax: | | | | | UNIT: | [phone] | [phone] | | | | | COLONOSCOPY | | | | | | | Priority 2: | | | | | | | 3-4mo | | | + +--------+ + + + + Encounter Details +--------+ + + + + | Date | Type | Department | Care Team | Description | +--------+ + + + + | 07/01/ | Educational Audiologist | [facility] | [place], | Polyp of colon, | | 2018 | | [address] [address] | MD [address] | unspecified part of | | | | [address] | [address] | colon, unspecified | | | | Mailcode: Center | [place], [place] | type (Primary Dx) | | | | for Health and | [address] | | | | | [facility] 2 | [phone] | | | | | [facility] [place] | | | | | | [address] | | | | | | [phone] | | | +--------+ + + + [...] Rd | | | | | | [place], [place] | | | | | | [address] | | | | | | [phone] | | | | | | | | +--------+---------+ + + + documented as of this encounter Visit Diagnoses + + | Diagnosis | + + | Polyp of colon, unspecified part of colon, unspecified type - Primary | + + documented in this encounter"
--- OUTSIDE RECORDS SUMMARY | ~2019-12-21 | XMS | Encounter Summary ---
Demographics + + + | Address | [address] | | | [place] [address] | + + + | Home Phone [...] [place] | | | | | [address] | | + + + + + Care Team Providers + +------+ + | Care Naphthalene Operator Helper Name | Role | Phone | + +------+ + | Sarah Carroll MD | PCP | | + +------+ + Reason for Visit + + + | Reason | Comments | + + + | Pre-op evaluation | | + + + Encounter Details +--------+---------+ + + + | Date | Type | Department | Care Team | Description | +--------+---------+ + + + | 03/30/ | Office | Preoperative | Vidhya Mccall, | Pre-op evaluation | | 2019 | Visit | Medicine Clinic at | ANP [address] | (Primary Dx); | | | | [facility] | [address] | Essential | | | | [address] | [place], [place] | hypertension; | | | | Mail Code: OC8PM | [address] | Congestive heart | | | | [facility] | [phone] | failure, unspecified | | | | and Healing, | | HF chronicity, | | | | Building [address] | | unspecified heart | | | | [place], [place] | | failure type (HCC); | | | | [address] | | Subclinical | | | | [phone] | | hypothyroidism; | | | | | | Chronic kidney | | | | | | disease, stage 3 | | | | | | (HCC); SUZI | | | | | | (obstructive sleep | | | | | | apnea); | | | | | | Hyperlipidemia, | | | | | | unspecified | | | | | | hyperlipidemia type; | | | | | | Morbid obesity with | | | | | | BMI of 40.0-44.9, | | | | | | adult (HCC); History | | | | | | of colon cancer; | | | | | | Paroxysmal atrial | | | | | | fibrillation (HCC); | | | | | | Preop examination | +--------+---------+ + + + Anesthesia Record + + [...] +--------+ + + + | Periph | Luisito Pearsona; Right; Hand; 22 | 04/14/19 1200 by | 04/14/19 1419 by | | cherelle | g; Yes; No; Positive; 04/14/19; | [...] + + + | Blood Pressure | 139/82 | 03/30/2019 10:57 AM | | | | | PDT | | + + + + + | Pulse | 79 | 03/30/2019 10:57 AM | | | | | PDT | | + + + + + | Temperature | 37.2 C (98.9 F) | 03/30/2019 10:57 AM | | | | | PDT | | + + + + + | Respiratory Rate | 20 | 03/30/2019 10:57 AM | | | | | PDT | | + + + + + | Oxygen Saturation | 94% | 03/30/2019 10:57 AM | | | | | PDT | | + + + + + | Inhaled Oxygen | - | - | | | Concentration | | | | + + + + + | Weight | 163.7 kg (361 lb) | 03/30/2019 10:57 AM | | | | | PDT | | + + + + + | Height | 180.3 cm (5' 11") | 03/30/2019 10:57 AM | neck 49.5cm | | | | PDT | | + + + + + | Body Mass Index | 50.35 | 03/30/2019 10:57 AM | | | | | PDT | | + + + + + documented in this encounter Patient Instructions Patient Instructions Vidhya Mccall ANP - 03/30/2019 11:15 AM PDT PREOPERATIVE INSTRUCTIONS If you have a CPAP/BiPAP machine (or other device for Sleep Apnea treatment like a mouth gu donis), please bring it with you on the day of your surgery. Empty stomach before surgery On the day BEFORE your surgery, drink plenty of fluids and stay well hydrated Follow ALL instructions from GI doctor for bowel prep NOTHING to eat or drink after midnight the night before surgery. This includes water, c offee, candy, mints, gum. Other Important Guidelines ? Do not shave the surgical area Do not smoke, drink alcohol or use recreational drugs for 24 hours before your surgery Watch for any change in your health condition. Let your surgeon know right away if you do not feel well. ? Do not wear makeup, perfume, lotions, deodorant, powder or hairspray. Do not wear any jewelry to the hospital. Wear loose, comfortable clothing. Leave all your valuables at home. Allow enough travel time so you re not late for your check in for surgery. Please remember to brush your teeth the night before and the morning of your procedure. Preventing post op complications while you are in the hospital Use an incentive spirometer or peep breathe to keep your lungs working properly an d to help prevent respiratory complications. It helps you take long, deep breaths. Use it at least once every hour while you are awake. Leg and feet exercises will maintain good circulation and help prevent blood clots in yo ur legs. Sometimes your doctor will order sequential air compression stockings. Compressed air helps the circulation in your legs. Walking and moving will help stimulate normal circulation and deep breathing. After you r surgery, your nurse may ask you to sit, stand or walk. Surgery check-in location: [address], 1st Floor [facility] Surgery Check in Time: The Preoperative Medicine Clinic is not in the position to give you accurate information regarding surgical check in time. We refer you back to your surgical office regarding this important information. Going Home Your surgical team will decide when you are medically ready to go home. If you are released to go home on the same day as your procedure/surgery please note the following: You will not be able to drive yourself A responsible adult MUST escort you home. You may not drive yourself Your responsible adult can drive you or they can accompany you in a taxi, ride share (barger ch as Uber/Lyft), or public transportation. An Uber/Lyft/intermodal owner operator truck driver does not count as the responsible adult who accompanies you. Certified Medical Transport can transport you after surgery as long as a competent adult is waiting for you on arrival at your destination Although not mandatory, it is highly recommended that a patient has a responsible person with you to provide overnight monitoring/support following discharge. It IS required that you have a competent person assist you and look after you on the st night after you have undergone regional blocks (72 hours for patients going home with reg ional block pump) If you have questions or concerns after you go home, call your doctor s office. If it is after office hours, call the [facility] pickling drum operator at [phone] and ask them to page him or h er. documented in this encounter Progress Notes Laura Akhtar MA - 03/30/2019 11:15 AM PDTVenipuncture performed in clinic, blood sample obtained from Right antecubital site Electronically signed by Laura Akhtar MA at 019 4:24 PM Vidhya Costa ANP - 03/30/2019 11:15 AM PDT PREOPERATIVE CONSULT NOTE Author: GEORGIANA Reynolds Referring Physician: Milad Ludwig MD Primary Care Provider: Sarah Carroll MD Reason for Consult: Preoperative evaluation and risk assessment Proposed Procedure/Date: Colonoscopy/EGD 04/14/19 Proposed Procedure Location: [facility] HISTORY OF PRESENT ILLNESS: Aaron Latham is a 58 y.o. male here for preoperative evaluati on of medical problems in anticipation of the above procedure. Pt has dx of colon cancer. He has a history of sigmoid colon cancer diagnosed on Colonoscopy in June 2017 after pre senting for bloody stool. He underwent LAR and hernia repair 08/[address] Bowles. He the n underwent surveillance colonoscopy this year which revealed a villous adenoma of the cecum which was not amenable to resection. Denies fevers, chills, night sweats, abdominal pain, or constipation. Pertinent medical problems discussed during this visit: CKD stage 3- followed by Nephrology - last seen 01/07/19 Anemia - r/t chronic disease - followed by PCP and nephrology CHF - followed by cardiology - last seen by Dr. Henson on 10/30/18. Echo from 7 with LVEF 60-65% - on torsemide, BB, and statin HTN - on hydralazine and carvedilol - BP 139/82 in clinic today HLD - on atorvastatin Hypothyroid - on levothyroxine Afib - on warfarin - rate controlled Gout - on allopurinol Morbid obesity - BMI 50.35 kg/m2 SUZI - on CPAP Perioperative cardiac risks: CAD yes CHF yes CVA no CKD with creatinine >2 yes DM treated with insulin no Functional Capacity: Low (1-4 mets) Prior complications of anesthesia: none ROS: HPI: Aaron is a pleasant 58 yo M here for pre-op evaluation for colonoscopy/EGD Pt has dx of colon cancer. He has a history of sigmoid colon cancer diagnosed on Colonosco py in June 2017 after presenting for bloody stool. He underwent LAR and hernia repair by Dr. Bowles. He then underwent surveillance colonoscopy this year which revealed a villous adenoma of the cecum which was not amenable to resection. Denies fevers, chills, n ight sweats, abdominal pain, or constipation. Prior Anesthetic Problems: No Pulmonary: shortness of breath with exertion no cough no stridor no wheezing Pt. Has no asthma n o COPD Dx of sleep apnea Uses BiPap/CPAP Cardiovascular: Functional Capacity: Low - cyanosis, palpitations and syncope no chest pain CHF CHF Sx: orthopnea EF by Echo: 60-6 5 NYHA Classification:II Type:left heart hypertension well controlled no CAD Sx no valvular problems/murmurs arrhythmia Atrial fibrillation/flutter no Cardiac assist devices no pace maker/ICD GI/Hepatic: no GI Bleed GERD Control: rare/only with certain foods no liver disease no hepatitis Renal: renal failure Type: CKD GFR 30-59 Etiology: HTN no electrolyte abnormalities no dialys is Endo: no Diabetes: no Endocrine Other no Hx Corticosteroid Use Neuro/Psych: No Head Conditions Spine Conditions radiculopathy and other severe lumbosacral stenosis No Neuromuscular Conditions Psych Disorder depression Current pain score: 0 Musculoskeletal: arthritis Type: osteoarthritis and gout Manifestations: Limited ROM (potential positioning concern) Additional Comments: Muscular Disorders: left knee, hands. Heme/Onc: Pt. has: no active bleeding bleeding disorder Anticoagulation Meds, warfarin No clotting disorders No hemoglobin disorders malignancy Colon/Intestinal Infectious Disease: no MRSA no VRE no clostridium difficile Skin: no open wounds No active skin infections no skin conditions AutoImmune Disorders: No autoimmune disorders Current medications reviewed / updated Current Outpatient Medications Medication Sig allopurinol 300 mg oral tablet Take 150 [...] oral tablet Take 5 mg by mouth Use as directed. Indications: 3 (15mg) on tuesdays, 3 (15mg) on fridays Level of confidence in medication reconciliation accuracy: High Allergies reviewed / updated No Known Allergies Past medical history reviewed / updated Past Medical History: Diagnosis Date Angiomyolipoma of [...] hypothyroidism Vitamin B12 deficiency Vitamin D deficiency Past surgery reviewed / updated Past Surgical History Procedure Laterality Date Colectomy 08/16/2017 Endoscopic carpal tunnel release of right wrist Right ulnar nerve release of right elbow 02/27/18 Left radical nephrectomy with hilar node dissection 06/11/2018 Colonoscopy tubular adenoma with focal high grade dysplasia of splenic flexure, villous adenoma cecum, mid ascending colon hyperplastic polyp and hyperplastic rectal polyp. widely patent coloproctectomy. 12/11/2018 Family history reviewed / updated Family History Problem Relation Diabetes Mother Lung Cancer Father Social history reviewed / updated Social History Tobacco Use Smoking status: Never Smoker Smokeless tobacco: Former User Types: Chew Substance Use Topics Alcohol use: Not Currently Drug use: Never PHYSICAL EXAM: Last Vitals: BP 139/82 (BP Location: Left upper arm, Patient Position: Sitting) | Pulse 79 | Temp 37.2 C (98.9 F) (Oral) | Resp 20 | Ht 1.803 m (5' 11") Comment: neck 49.5cm | Wt 163.7 kg (361 lb) | SpO2 94% | BMI 50.35 kg/m | BSA 2.86 m Body mass index is 50 .35 kg/m. General: Appearance: Older than stated age and Mild distress LOC: Alert HEENT: Normocephalic/Atraumatic, Normal sclerae/conjunctivae, EOMI, No thyromegaly, PERRL and Madelyn pharyngeal mucosa pink/moist Airway: Dentition: chipped teeth Date of last Dental Exam: 02/2019 Mallampati: 4 Mouth Opening: > 3 cm TM Distance:> 6 cm Fowler: Yes C-Spine ROM: Limited flexion Neck Anatomy: Normal Neck Circumference: 49.5 cm. Jaw Protrusion: Normal (lower incisors go above upper incisor s) Pulmonary: Respiratory: pulmonary exam normal Breath Sounds: breath sounds normal Cardiovascular: Rhythm: Regular Rate: Normal Cardiovascular comments: BLE non-pitting edema - chronic Abdomen: General: Normal Body Habitus: normal obesity Bowel Sounds: bowel sounds are normal GI Comme nts: Morbid obesity Musculoskeletal: Range of Motion: Normal range of motion ROM limited Other findings: Pain Musculoskeletal C omments: LBP - pt unable to sit throughout assessment d/t spinal stenosis, ambulates with c ane Neuro/Psych: Affect: Normal Cognitive Status: Normal Speech: Normal speech Strength: Normal Muscle Tone: Normal Movement: Normal Gait Station: Normal Cranial Nerves: Normal Sensation: Normal to light touch Comments: No obvious Neurological deficits noted Skin: Color: skin color normal Texture: Normal Turgor: turgor normal Temperature: Warm Other Implanted Devices: Implanted devices: None LABS & DATA REVIEWED/ORDERED Lab Results Component Value Date NA 139 03/30/2019 K 4.6 03/30/2019 CL 104 03/30/2019 BICARB 26 03/30/2019 BUN 38 03/30/2019 CR 2.32 03/30/2019 GLU 113 03/30/2019 CA 9.9 03/30/2019 EKG: Personally reviewed Outside records reviewed from [facility] and "media" tab. Findings pertinent to this pr eoperative visit are as follows: Clinic notes, Echo, referral Perioperative risk calculators 2014 ACC/AHA Perioperative Cardiac Risk Stratification (assumes non-emergent, non-cardiac p rocedure) Are active cardiac conditions present? No Calculate the combined surgical and patient-specific risk: using the Farah perioperative ca rdiac risk calculator, the risk of major adverse cardiac event (MACE) is: less than 1%. No further risk stratification for coronary disease is indicated. Estimated ASA class 4 Other perioperative risk calculators: Not Applicable ASSESSMENT and RECOMMENDATIONS: Perioperative risk assessment: Aaron Latham is a 58 y.o. male with diagnosis of colo n cancer, scheduled for colonoscopy/EGD. Based on the clinical information obtained and rev iewed during this visit, the overall assessment is that the patient is having elective minor surgery with identified risk factors; Afib, CHF, HTN, HLD, CKD. The patient is stable / opt imized for surgery. Additional testing/optimization is not needed. Medication management recommendations: The patient was advised to continue all usual med ications except as noted in Patient Instructions (After Visit Summary given to pt) Pre-procedure antibiotic recommendation: Per standard protocol. CKD stage 3- followed by Nephrology - last seen 01/07/19 Anemia - r/t chronic disease - followed by PCP and nephrology CHF - followed by cardiology - last seen by Dr. Henson on 10/30/18. Echo from 7 with LVEF 60-65% - on torsemide, BB, and statin HTN - on hydralazine and carvedilol - BP 139/82 in clinic today HLD - on atorvastatin Hypothyroid - on levothyroxine Afib - on warfarin - rate controlled Gout - on allopurinol Continue all medications SUZI on CPAP - Instructed to bring day of procedure Thank you for the opportunity to contribute to this patient's care. GEORGIANA Reynolds [facility] PREOPERATIVE MEDICINE CLINIC AT [address] [address] I spent time counseling the pt regarding perioperative risk (cardiac/bleeding/ DVT/ respir atory failure/ infection, etc) and methods to mitigate risk. I advised the patient regardin g NPO requirements, hydration before surgery, showering, general body hygiene. All pre-proc edure instructions given to the patient (after-visit summary). All of patient's questions w ere addressed. The patient verbalized understanding of the instructions given. Electronica lly signed by GEORGIANA Dowling at 03/30/2019 4:24 PM PDTdocumented in this encounter Plan of Treatment +--------+---------+ + + + | Date | Type | Specialty | Care Team | Description | +--------+---------+ + + + | 01/20/ | Office | Orthopedics | Richard Harvey, | | | 2019 | Visit | | [address] | | | | | | [address] | | | | | | [place], [place] | | | | | | [address] | | | | | | [phone] | | | | | | | | +--------+---------+ + + + documented as of this encounter Procedures + +--------+ + + + | Procedure Name | Priori | Date/Time | Associated Diagnosis | Comments | | | ty | | | | + +--------+ + + + | ID COLLECTION VENOUS | Routin | 03/30/2019 | Pre-op evaluation | | | BLOOD,VENIPUNCTURE | e | 11:12 AM | | | | | | PDT | | | + +--------+ + + + | BASIC METABOLIC SET | Routin | 03/30/2019 | Pre-op evaluation | Results for this | | (NA, K, CL, TCO2, | e | 11:12 AM | | procedure are in the | | BUN, CR, GLU, CA) | | PDT | | results section. | + +--------+ + + + | 12 LEAD ECG | Routin | 03/30/2019 | Pre-op evaluation | Results for this | | | e | 11:05 AM | Congestive heart | procedure are in the | | | | PDT | failure, unspecified | results section. | | | | | HF chronicity, | | | | | | unspecified heart | | | | | | failure type (HCC) | | + +--------+ + + + documented in this encounter Results BASIC METABOLIC SET (NA, K, CL, TCO2, BUN, CR, GLU, CA) (03/30/2019 11:12 AM PDT) + + + + + + | Component | Value | Ref Range | Performed | Pathologist | | | | | At | Signature | + + + + + + | GLUCOSE, | 113 (H) | 70 - 99 mg/dL | [facility] | | | PLASMA | | | LABORATORY | | | (LAB) | | | SERVICES, | | | | | | CORE | | + + + + + + | BUN, PLASMA | 38 (H) | 6 - 20 mg/dL | [facility] | | | (LAB) | | | LABORATORY | | | | | | SERVICES, | | | | | | CORE | | + + + + + + | CREATININE | 2.32 (H) | 0.70 - 1.30 | [facility] | | | PLASMA | | mg/dL | LABORATORY | | | (LAB) | | | SERVICES, | | | | | | CORE | | + + + + + + | EGFR | 35 (L) | >60 mL/min | [facility] | | | - | | | LABORATORY | | | QATARI | | | SERVICES, | | | | | | CORE | | + + + + + + | EGFR NON | 29 (L) | >60 mL/min | [facility] | [...] + + + + | POTASSIUM, | 4.6 | 3.4 - 5.0 | [facility] | [...] + + + + | CALCIUM, | 9.9 | 8.6 - 10.2 | [facility] | | | PLASMA | | mg/dL | LABORATORY | | | (LAB) | | | SERVICES, | | | | | | CORE | | + + + + + + | ANION GAP | 9 | 4 - 11 mmol/L | [facility] [...] MDRD equation recommended by the National | [facility] | | Kidney Disease Education Program. Estimated GFR Interpretive | LABORATORY | | Information: <60 mL/min/1.73 sq m Chronic Kidney | SERVICES, CORE | | Disease <15 mL/min/1.73 sq m Kidney Failure | | | Estimated GFR greater than 60 mL/min/1.73 sq m is of limited clinical | | | value. The MDRD equation is not valid in the following situations: - | | | Patients under 18 years of age - Severe malnutrition or obesity - | | | Vegetarian diet - Rapidly changing kidney function - Amputees, | | | paraplegics, or other muscle-wasting diseases | | + + + + + + + + | Performing | Address | City/State/Zipcode | Phone Number | | Organization | | | | + + + + + | [facility] | [address] | [place] [address] | | | SERVICES, CORE | [address] | | | + + + + + 12 LEAD ECG (03/30/2019 11:05 AM PDT) + + + + + + | Component | Value | Ref Range | Performed | Pathologist | | | | | At | Signature | + + + + + + | VENTRICULAR | 84 | bpm | [facility] | | | RATE | | | OF | | | | | | CARDIOLOGY | | + + + + + + | ATRIAL RATE | 84 | ms | [facility] | | | | | | OF | | | | | | CARDIOLOGY | | + + + + + + | P-R | 235 | ms | [facility] | | | INTERVAL | | | OF | | | | | | CARDIOLOGY | | + + + + + + | P AXIS | -52 | deg | [facility] | | | | | | OF | | | | | | CARDIOLOGY | | + + + + + + | QRS | 140 | ms | [facility] | | | DURATION | | | OF | | | | | | CARDIOLOGY | | + + + + + + | QT | 392 | ms | [facility] | | | | | | OF | | | | | | CARDIOLOGY | | + + + + + + | NAM | 463 | ms | [facility] | | | | | | OF | | | | | | CARDIOLOGY | | + + + + + + | R AXIS | 127 | deg | [facility] | | | | | | OF | | | | | | CARDIOLOGY | | + + + + + + | T AXIS | 52 | deg | [facility] | | | | | | OF | | | | | | CARDIOLOGY | | + + + + + + | ECG | Sinus or ectopic atrial | | [facility] | | | IMPRESSION | rhythm | | OF | | | | | | CARDIOLOGY | | + + + + + + | ECG | Prolonged ID interval | | [facility] | | | IMPRESSION | | | OF | | | | | | CARDIOLOGY | | + + + + + + | ECG | Right bundle branch | | [facility] | | | IMPRESSION | block | | OF | | | | | | CARDIOLOGY | | + + + + + + | ECG | Inferior infarct, old | | [facility] | | | IMPRESSION | | | OF | | | | | | CARDIOLOGY | | + + + + + + | ECG | Lateral wall also | | [facility] | | | IMPRESSION | involved- ABNORMAL ECG - | | OF | | | | | | CARDIOLOGY | | + + + + + + | ECG | Electronically signed | | [facility] | | | IMPRESSION | by: SARKIS JORDAN | | OF | | | | 03-31-2019 08:06:28 | | CARDIOLOGY | | + + + + + + + + | Specimen | + + | | + + + + + | Narrative | Performed At | + + + | | | + + + + + + + + | Performing | Address | City/State/Zipcode | Phone Number | | Organization | | | | + + + + + | [facility] | [address] | [place], [place] | | | CARDIOLOGY | [address] | [address] | | + + + + + documented in this encounter Visit Diagnoses + + | Diagnosis | + + | Pre-op evaluation - Primary Preoperative examination, unspecified | + + | Essential hypertension | + + | Congestive heart failure, unspecified HF chronicity, unspecified heart failure type | | (HCC) | + + | Subclinical hypothyroidism Other specified acquired hypothyroidism | + + | Chronic kidney disease, stage 3 (HCC) | + + | SUZI (obstructive sleep apnea) Obstructive sleep apnea (adult) (pediatric) | + + | Hyperlipidemia, unspecified hyperlipidemia type | + + | Morbid obesity with BMI of 40.0-44.9, adult (HCC) | + + | History of colon cancer Personal history of malignant neoplasm of large intestine | + + | Paroxysmal atrial fibrillation (HCC) Atrial fibrillation | + + | Preop examination Preoperative examination, unspecified | + + documented in this encounter
--- OUTSIDE RECORDS SUMMARY | ~2019-12-21 | XMS | Encounter Summary ---
Demographics + + + | Address | [address] [address] | | | [place] [address] | + + + | Home Phone [...] Team Providers + +------+ + | Care Tax Expert Name | Role | Phone | + [...] Cardiology | combined | [address] | CRIMINAL INVESTIGATIVE AGENT [address] | | | | | systolic | Aldair Castaneda | ELSA A[place]YA | | | | | (congestive) | ROLA | [place] | | | | | and | [place] [address] | [place], [place] | | | | | diastolic | Phone: | [address] Phone: | | | | | (congestive) | [phone] | [phone] | | | | | heart | Fax: | Fax: | | | | | failure | [phone] | [phone] | | | | | (HCC) 6 | | | | | | | month f/u | | | | | | | Procedures | | | | | | | [place] OFFICE | | | | | | [...] + + | 08/17/ | Office | [facility] | Ileana Henson | Paroxysmal atrial | | 2019 | Visit | CARDIOLOGY ROLA | [address]UP[address] | fibrillation (HCC) | | | | [address] | [place] BURG[address] F | (Primary Dx); | | | | [address] | [place] [address] | Chronic combined | | | | [place] | [phone] | systolic and | | | | [address] | | diastolic congestive | | | | [phone] | | heart failure | | | [...] nd visit delayed due to admission at [facility] for GI bleeding. Today I reviewed [...] He is anticoagulated on Coumadin for his ELC9SC6 2 VASC score of 2 which is managed by lilli Castillo's Coumadin clinic. He was hospitalized in July 2017 at [facility] for acute GI bleeding, where a mass [...] surgery 08/16/2017 by , colorectal surgeon in [place], with low anterior resection with open approach, did not require any Chemo or radiation, He also followed up Dr. 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 They continue to monitor his right kidney for angiomyolipoma. His current and previous testing and procedures are detailed below. Since I saw him last, he had a colonoscopy done at [facility] 07/01/2019, and developed bleedin g afterwards with blood and clot in stool. He went to the emergency room at [facility] on July 12 and was transferred to [facility]. He had a repeat endoscopy performed [...] be angiomyolipom a,,followed by Dr. Cross in [place] Denies hematuria. Denies history of benign prostatic [...] drug use. Exercises sporadically . 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 Lives with his [...] for: TOTEPI CARDIAC PROCEDURES/IMAGING Last Cath: 02/06/2017 ([facility]) Separate ostia of the left [...] inadequate TR jet. Pulmonic valve normal, trace TN. No perica rdial effusion. IVC 1.5-2.5 cm, [...] block. Bifascicular Block: Rate 5 8 bpm, TN 222 ms, QRS 156 ms, QTC 475 ms EK03/11: Sinus bradycardia with first-degree A-V block. Bi fascicular block. Rate 59 bpm, TN 238 ms, QRS 160 ms, QTC 481 ms, compared to EKG done in January first-degree A-V b lock has increased slightly,tracing personally reviewed by me EK08/01: Sinus rhythm with first-degree AV block. Left axis deviation and a right bundle branch block. Rate 65 bpm, TN 230 ms, QRS 162 ms, QTC 497 ms, when compared to EKG done in February 2017, TN interval has decreased slightly and QTC has increased ,tracing person ally reviewed by me EK10/30/2018: Sinus rhythm with first-degree AV block bifascicular block, old septal infa rct. Rate 66 bpm, TN 250 ms, QRS 156 ms, QTC 475 [...] 13, hematocrit 38.9, Platelets 292. Labs: 07/10/2019:( [facility]) INR: 1.29. CBC: WBC 10.26, RBC [...] his echo, and delayed as admitted to [facility] on Jul 13 for bleeding post [...] contain inadvertent rec ognition errors. Ethan ARREOLA [facility] Cardiology 08/18/2019 Sherrie kirby in this [...] [place] | | | | | | [address] | | | | | | | [...]
--- OUTSIDE RECORDS SUMMARY | ~2019-12-21 | XMS | Encounter Summary ---
Demographics + + + | Address | [address] | | | [place] [address] | + + + | Home Phone [...] Author | [facility] | + + + | Organization | [facility] | + + + | Address | Unknown | + + + | Phone | Unavailable | + + + Support + + + + + | Name | Relationship | Address | Phone | + + + + + | Toby Latham | ANNA | [address] | | | | | [place] | | | | | [address] | | + + + + + Care Team Providers + +------+ + | Care Filler Feeder Name | Role | Phone | + [...] | | | | | | [facility] | | | | | | Hospital Admitting | | | | | | Desk Located on the | | | | | | 9th floor | | | | | | [place], [place] | | | | | | [address] | | | +--------+ + + + [...] Rd | | | | | | [place], [place] | | | | | | [address] | | | | | | [phone] | | | | | | | | +--------+---------+ + + + documented as of this encounter Visit Diagnoses Not on filedocumented in this encounter"
--- OUTSIDE RECORDS SUMMARY | ~2019-12-21 | XMS | Encounter Summary ---
Demographics + + + | Address | [address] [address] | | | [place] [address] | + + + | Home Phone | | + + + | Preferred Language | Unknown | + + + | Marital Status | Single | + + + | Scientologist Affiliation | 1077 | + + + | Race | Unknown | + + + | Ethnic Group | Unknown | + + + Author + + + | Author | [facility] | | | and [place] | + + + | Organization | [facility] | | | [...] Team Providers + +------+ + | Care Laminated Plastics Assembler And Gluer Name | Role | Phone | + [...] | | | | Peritoneal | | [address] Phone: | | | | | adhesion | | [phone] | | | | | Procedures | | Fax: | | | | | RI FREEING | | [phone] | | | | | BOWEL | | | | | | | ADHESION,ENT | | | | | | | EROLYSIS RI | | | | | | | [...] 06/19/ | | [address] [place] | [address] | | | 2018 | | [address] | | | | | | [phone] | | | +--------+ + + + [...] might be different from t he original. [facility] UROLOGY DISCHARGE SUMMARY Patient Name: Lily Valentin Patient : 1960 PCP: Sarah Carroll Date of Admission: 06/11/2018 Date of Discharge: 06/19/2018 Primary Discharge Dx: angiomyolipomas Secondary Discharge Dx(s): There are no hospital problems to display for this patient. Procedures Left radical nephrectomy Hospital Course: Lily was admitted to the hospital degar following his procedure. Post op he was [...] COUMADIN Discontinued Medications [place] Follow-Up: 1. [facility] in 1 week. Please call during business hours to set up your urology follow up appointm ent. Electronically Signed by: Patrice Cross MD, 06/16/2018 7:42 [facility] documented in this encou nter Discharge Instructions Instructions Teresita Rodgers RN - 06/16/2018Formatting of this note might be different f rom the original. [facility] [place] [facility] UROLOGY DISCHARGE INSTRUCTIONS FOLLOWING LAPAROSCOPIC REMOVAL OF [...] on your remaining kidney. CONTACT INFORMATION: - [facility] Office Number: [facility] Office: [phone] [facility] Office: FOLLOWUP INFORMATION: - Dr. Cross [...] Weakness, dizziness, or fainting Date Last Reviewed: 05/12/201619996781-6123 [employer] [place], [place] [id number]. All righ ts reserved. This information is [...] out or is dislodged Date Last Reviewed: 08/12/201619992031-5220 [employer] [place] [address], [place] [address]. All righ ts reserved. This information is not intended as a substitute for professional medical care. Always follow your healthcare professional's instructions. [facility] Patient Belongings Lily Valentin 1960 Valuables [...] Were Given To: octavio and valubles to [facility][id number] 18 Patient Signature: Clinician/Life Agent Signature: documented in this encounter Medications at [...] 11:59 AM PSTPt has d/c orders to [place] SNF. Pt h as sacral friction [...] PA-C - 06/19/2018 7:[address] [facility] UROLOGY DAILY PROGRESS NOTE ID: Lily [...] Signed by: Xavier Yip PA-C, 06/19/2018 7:40 [facility] Sasha Blevins, [facility] - 06/18/2018 4:52 PM PSTSOCIAL WORK D/C PLAN: SNF ([facility]) vs home NEXT STEPS: [facility] in [place], [place] has accepted pt pending insurance authorization. [...] d/c to a SNF. SW called to [facility] SNF and they are yash [place]. SW spoke to Angelika, Director at [facility]. She stated that pt is not appropr iate for home health. She recommends SNF. She also stated that pt's insurance is difficult t o work with and only authorized 1 home health visit and it took 10 plus days to get auth'ed for any other home health visits. ASSESSMENT/CHART REVIEW: 58 year old male with [facility] [place] insurance from [employer]. Pt lives with his elderly mother. Pt is bariatric. D/C TRANSPORT: jasson Matta- [phone]. SW originally asked for him to pick [...] support at home. CONTACTS: Toby Valentin, mother- [phone] Electronically signed by JOSH Mcbride 06/18/2018 4:52 PM Page Melton RN - 06/17/2018 5:58 PM PSTSocial worker notifi ed this RN that patient would not be able to discharge today due to SNF placement issues. Th is RN notified Xavier Ypi PA-C for urology regarding canceled discharge. Electronically s igned by: Page Ortiz RN 06/17/2018 18:02 Gen Sasha Jayesh, LICS W - 06/17/2018 4:35 PM PSTSOCIAL WORK D/C PLAN: SNF ([facility]) vs home? NEXT STEPS: Need PT to re-evaluate for disposition. PT can call this SW at [phone] to discuss d/c plan satya concerns. Awaiting returned call from [facility] SNF admissions ([phone]) re: if pt wo uld be appropriate [...] d/c to a SNF. SARAH called to [facility] SNF and they a re reviewing. SARAH spoke to Angelika, Director at [facility]. She stated that pt is not appropr iate for home health. She recommends SNF. She also stated that pt's insurance is difficult t o work with and only authorized 1 home health visit and it took 10 plus days to get auth'ed for any other home health visits. ASSESSMENT/CHART REVIEW: 58 year old male with [employer] [place] insurance from [employer]. Pt lives with his elderly mother. Pt is bariatric. D/C TRANSPORT: Paxtonjasson- [phone]. SW originally asked for him to pick [...] support at home. CONTACTS: Toby Valentin, mother- [phone] Electronically signed by JOSH Mcbride 06/17/2018 4:38 PM PSTBest, Kasia Brink RN - 06/17/2018 11:33 AM PSTFormatting of this no te might be different from the original. [facility] Wound, Ostomy, & Continence Nursing Note [...] MD - 1 08/17/2017 8:[address] [facility] UROLOGY DAILY PROGRESS NOTE ID: Lily [...] Signed by: Patrice Cross MD, 06/17/2018 8:05 [facility] Patrice Ag MD - 06/16 7:[address] [facility] UROLOGY DAILY PROGRESS NOTE ID: Lily [...] Signed by: Patrice Cross MD, 06/16/2018 7:42 [facility] Jack Lewis MD - 06/15/2018 8:00 AM [...] 36 sec IMAGING: All images reviewed by wi NEDA08/15/2017 Large amount of gas in intestines, [...] lucero PA-C - 06/13/2018 12:[address] [facility] UROLOGY DAILY PROGRESS NOTE ID: Lily [...] Signed by: Xavier Yip PA-C, 06/13/2018 12:20 [facility] Associated attestation - Patrice Cross MD - [...] Cross MD - 06/12/2018 5:[address] [facility] UROLOGY DAILY PROGRESS NOTE ID: Lily [...] Signed by: Patrice Cross MD, 06/12/2018 5:33 [facility] documented in this encou nter Plan of Treatment +--------+---------+ + + + | Date | Type | Specialty | Care Team | Description | +--------+---------+ + + + | 03/17/ | Office | Cardiology | Lorraine Clifton DO | | | 2019 | Visit | | [address] | | | | | | [place] | | | | | | [id number] | | | | | | | [...] | | | | to 3.5Performed by [facility] | | LABORATORY | | | | [address], | | [place] | | | | [place] [address] | | | | + + + + + + + + | Specimen | + + | Blood specimen | | (specimen) | + + + + + + + | Performing | Address | City/State/Zipcode | Phone Number | | Organization | | | | + + + + + | [facility] | [address] | [place] [address] | | | [facility] | | | | | LABORATORY MAO [...] [facility] | | | | Performed by [facility] [address] | | SACRED | | | | [address] [place] | | HEART | | | | [address] | | MEDICAL | | | | [...] + + | [facility] | [address] | [place] [address] | | | [facility] | | | | | LABORATORY MAO [...] | | | | to 3.5Performed by [facility] | | LABORATORY | | | | [address], | | [place] | | | | [place] [address] | | | | + + + + + + + + | Specimen | + + | Blood specimen | | (specimen) | + + + + + + + | Performing | Address | City/State/Zipcode | Phone Number | | Organization | | | | + + + + + | [facility] | [address] | [place] [address] | | | [facility] | | | | | [place] [...] | | | | to 3.5Performed by [facility] | | LABORATORY | | | | [address], | | [place] | | | | [place] [address] | | | | + + + + + + + + | Specimen | + + | Blood specimen | | (specimen) | + + + + + + + | Performing | Address | City/State/Zipcode | Phone Number | | Organization | | | | + + + + + | SUSIEDEYSIKathrin [facility] | [address] | [place] [address] | | | [facility] | | | | | LABORATORY MAO [...] [facility] | | | | Performed by [facility] [address] | | SACRED | [...] SACRED | [address] | [place] [address] | | | HE[facility] MEDICAL [facility]ENTER | [...] | | | | to 3.5Performed by [facility] | | LABORATORY | | | | [address], [place], | | [place] | | | | [place] [address] | | | | + + + + + + + + | Specimen | + + | Blood specimen | | (specimen) | + + + + + + + | Performing | Address | City/State/Zipcode | Phone Number | | Organization | | | | + + + + + | [facility] | [address] [place] | [place] [address] | | | [facility] | | | | | STEPHEN CAVANAUGH [...] | | MEDICAL | | | | [facility] [address] | | [place] | | | | [place] [address] | | LABORATORY | | | | [...] + + | PROVIDEDEYSIE [facility] | [address] | [place] [address] | | | [facility] | | | | | LABORATORY [place] [...] | | MEDICAL | | | | [facility] [address], | | CENTER | | | | [place] [address] | | LABORATORY | | | | [...] + + | [facility] | [address] | [place] [address] | | | [facility] | | | | | LABORATORY MAO [...] | | | | to 3.5Performed by [facility] | | LABORATORY | | | | [address], | | [place] | | | | [place] [address] | | | | + + + + + + + + | Specimen | + + | Blood specimen | | (specimen) | + + + + + + + | Performing | Address | City/State/Zipcode | Phone Number | | Organization | | | | + + + + + | [facility] | [address] | [place] [address] | | | [facility] | | | | | LABORATORY [place] [...] | | | | | seconds.Performed by [facility] | | | | | | [address], | | | | | | [place] [address] | | | | + + + + + + + + | Specimen | + + | Blood specimen | | (specimen) | + + + + + + + | Performing | Address | City/State/Zipcode | Phone Number | | Organization | | | | + + + + + | [facility] | [address] | [place] [address] | | | [facility] | | | | | LABORATORY [place] [...] ENCE | | | Basophils | by [facility] [address], | K/uL | SACRED | | | | [place] [address] | | HEART | | | |Performed by [facility] [address], [place] [address] | | MEDICA L | | | [...] SACRED | [address] | [place] [address] | | | [facility] | | | | | LABORATORY [...] | | MEDICAL | | | | [facility] [address], | | CENTER | | | | [place] [address] | | LABORATORY | | | | [...] + + | [facility] | [address] | [place] [address] | | | [facility] | | | | | STEPHEN CAVANAUGH [...] PROVIDE NCE | | | | by [facility] [address], | | SACRED | | | | [place] [address] | | HEART | | | |Performed by [facility] [address], [place] [address] | | MEDICAL | | | | [...] + + | [facility] | [address] | [place] [address] | | | [facility] | | | | | LABORATORY [place] [...] | | | | to 3.5Performed by [facility] | | LABORATORY | | | | [address] [place], | | [place] | | | | [place] [address] | | | | + + + + + + + + | Specimen | + + | Blood specimen | | (specimen) | + + + + + + + | Performing | Address | City/State/Zipcode | Phone Number | | Organization | | | | + + + + + | [facility] | [address] | [place] [address] | | | [facility] | | | | | LABORATORY [place] [...] | | MEDICAL | | | | [facility] [address], | | CENTER | | | | [place] [address] | | LABORATORY | | | | [...] + + | [facility] | [address] | [place] [address] | | | [facility] | | | | | LABORATORY MAO [...] | | MEDICAL | | | | [facility] [address], | | CENTER | | | | [place] [address] | | LABORATORY | | | | [...] + + | [facility] | [address] | [place] [address] | | | [facility] | | | | | LABORATORY CERNER [...] PROVIDE NCE | | | | by [facility] [address], | | SACRED | | | | [place] [address] | | HEART | | | |Performed by [facility] [address], [place] [address] | | MEDICAL | | | | [...] + + | [facility] | [address] | [place] [address] | | | HEART MEDICAL CENTER | [...] | | MEDICAL | | | | [facility] [address], | | CENTER | | | | [place] [address] | | LABORATORY | | | | [...] + + | [facility] | [address] | [place] [address] | | | HE[facility] MEDICAL CENTER | [...] [facility] | | | | Performed by [facility] [address] | | SACRED | | | | [address] [place] [place] | | HEART | | | | [address] | | MEDICAL | | | | [...] + + | [facility] | [address] | [place] [address] | | | [facility] | | | | | LABORATORY MAO [...] | | MEDICAL | | | | [facility] [address], | | CENTER | | | | [place] [address] | | LABORATORY | | | | [...] + + | [facility] | [address] | [place] [address] | | | [facility] | | | | | [place] | | | | + + + + + Tissue Request For Pathology (06/11/2018 2:57 PM PDT) + + | Specimen | + + | | + + + + + | Narrative | Performed At | + + + | | [facility] | | LILY VALENTIN | CORY | | : 1960 AGE: 58 years SEX: Male | MEDICAL CENTER | | | LABORATORY | | Acct: [id number] Location: | [facility] | | [facility] SURG; 552; 552-02 Case #: | | | [id number] Ordering: PATRICE CROSS MD | | | Client: [facility] | | | Copy To: Printed: | [...] | MDVerify Date: 06/18/2018 12:37 pmPerforming Location: [facility] | | | [facility], [facility] [address] | | | DESCRIPTION:This case is received [...] | | | ureteral and renal vasculature margins.Painter Tumbling Barrel sections are | | | submitted as [...] pelvis and sinus | | | fat. Painter Tumbling Barrel sections are submitted during second look with [...] + + | [facility] | [address] | [place] [address] | | | [facility] | | | | | STEPHEN [place] [...] | | | | | | LAB [place] [facility] | | | | | | [facility] | | | | | | [facility] | | | | | | BLOOD | | | | | | CENTER | | + + + + + + | Rh Type | PositiveComment: Patient | | REFERENCE | | | | is remote crossmatch | | LAB [place] | | | | eligible | | [...] + + + | Specimen Expiration Date: [id number] | REFERENCE LAB | | | [place] | | | [facility] | | | B[facility] CENTER | + + + + + + + + | Performing | Address | City/State/Zipcode | Phone Number | | Organization | | | | + + + + + | REFERENCE LAB | [address] | [place] [address] | [phone] | | [place] | | | | | [facility] [...] | | | | | | LAB [place] | | | | | | [facility] | | | | | | [facility] | | | | | | BLOOD | | | | | | CENTER | | + + + + + + | Rh Type | Positive | | REFERENCE | | | | | | LAB [place] | | | | | | [facility] | | | | | | [facility] | | | | | | BLOOD | | | | | | CENTER | | + + + + + + | Antibody | Negative | | REFERENCE | | | Screen | | | LAB [place] | | | | | | [facility] [...] + + + | Specimen Expiration Date: [id number] | REFERENCE LAB | | | [place] [facility] | | | [facility] | | | [facility] C[facility] | + + + + + + + + | Performing | Address | City/State/Zipcode | Phone Number | | Organization | | | | + + + + + | REFERENCE LAB | [address] | [place] [address] | [phone] | | [place] | | | | | [facility] [...] | | | POC | Performed by [facility] [address] | | SACRED | | | [address], [place] | | HEART | | | | [address] | | MEDICAL | | | | [...] + + | [facility] | [address] | [place] [address] | | | [facility] | | | | | LABORATORY MAO [...] + + +--------+---+---+ | morphine 5 mg/mL FEED CRUSHER OPERATOR syringe | Rate/Dos | 06/13/20 | 150 [...] | | | Loading Dose(mg): 0, Starting FEED CRUSHER OPERATOR | | | | | | | Dose(mg): 1, Incremental | | | | | | | Increase FEED CRUSHER OPERATOR Dose(mg): 0.5, | | | | | | | Maximum FEED CRUSHER OPERATOR Dose(mg): 2, Lockout | | | | [...]
--- OUTSIDE RECORDS SUMMARY | ~2019-12-21 | XMS | Encounter Summary ---
Demographics + + + | Address | [address] [address] | | | [place] [address] | + + + | Home Phone [...] Team Providers + +------+ + | Care Classroom Teacher Name | Role | Phone | + +------+ + | Sarah Carroll MD | PCP | | + +------+ + Encounter Details +--------+ + + + + | Date | Type | Department | Care Team | Description | +--------+ + + + + | 12/18/ | Orders Only | [facility] | Conversion | | | 2019 | | NEPHROLOGY [place] | Transaction, | | | | | [address] | Provider Unknown | | | | | [address] [place], [place] | [phone] | | | | | [address] | (Fax) | | | | | [phone] | | | +--------+ + + + [...] | | | | | [place], [place] | | | | | | [address] | | | | | | | | +--------+---------+ + + + documented as of this encounter Procedures + +--------+ + + + | Procedure Name | Priori | Date/Time | Associated Diagnosis | Comments | | | ty | | | | + +--------+ + + + | IRON AND IRON | Routin | 12/18/2018 | | Results for this | | BINDING CAPACITY | e | 10:55 AM | | procedure are in the | | | | PDT | | results section. | + +--------+ + + + | VITAMIN B-12 | Routin | 12/18/2018 | | Results for this | | | e | 10:55 AM | | procedure are in the | | | | PDT | | results section. | + +--------+ + + + | FOLATE | Routin | 12/18/2018 | | Results for this | | | e | 10:55 AM | | procedure are in the | | | | PDT | | results section. | + +--------+ + + + | FERRITIN | Routin | 12/18/2018 | | Results for this | | | e | 10:55 AM | | procedure are in the | | | | PDT | | results section. | + +--------+ + + + documented in this encounter Results Iron and Iron Binding Capacity (12/18/2018 10:55 AM PDT) + +-------+ + + + | Component | Value | Ref Range | Performed | Pathologist | | | | | At | Signature | + +-------+ + + + | Iron | 89.92 | 37 - 160 | EXTERNAL | | | | | | LAB | | + +-------+ + + + | Iron | 30.3 | 20 - 55 | EXTERNAL | | | Saturation | | | LAB | | + +-------+ + + + | TIBC | 297 | 245 - 400 | EXTERNAL | [...] | | | + +---------+ + + Folate (12/18/2018 10:55 AM PDT) + +---------+ + + + | Component | Value | Ref Range | Performed | Pathologist | | | | | At | Signature | + +---------+ + + + | Folate | 7.3 (A) | 4.5 | EXTERNAL | | | | | [...] | | + +---------+ + + Ferritin (12/18/2018 10:55 AM PDT) + +-------+ + + + | Component | Value | Ref Range | Performed | Pathologist | | | | | At | Signature | + +-------+ + + + | Ferritin, | 63.32 | 30 - 400 ng/mL | EXTERNAL [...] | + +---------+ + + Vitamin B-12 12/18/2018 10:55 AM PDT) + + + + + + | Component | Value | Ref Range | Performed | Pathologist | | | | | At | Signature | + + + + + + | VITAMIN | 1,549 (A) | 232 - 1,245 | EXTERNAL | [...]
--- OUTSIDE RECORDS SUMMARY | ~2019-12-21 | XMS | Encounter Summary ---
Demographics + + + | Address | [address] [address] | | | [place] [address] | + + + | Home Phone [...] Team Providers + +------+ + | Care Hairspring Inspector Name | Role | Phone | + +------+ + | Sarah Carroll MD | PCP | | + +------+ + Encounter Details +--------+ + + + + | Date | Type | Department | Care Team | Description | +--------+ + + + + | 04/30/ | Orders Only | [facility] | Patrice Cross MD | Renal mass (Primary | | 2018 | | [address] [place] | [address] | Dx) | | | | [address] | [address] | | | | | [address] | [address] | | | | | [phone] | | | +--------+ + + + [...] [place] | | | | | | [address] | | | | | | | [...]
--- OUTSIDE RECORDS SUMMARY | ~2019-12-21 | XMS | Encounter Summary ---
Demographics + + + | Address | [address] [address] | | | [place] [address] | + + + | Home Phone [...] Team Providers + +------+ + | Care Corrosion Engineer Name | Role | Phone | [...] | MED CTR EXTERNAL | MD [address] | | | | | IMAGING [address] | [address] | | | | | [address] | [place] [address] | | | | | [place] [address] | | | | | | [phone] | | | +--------+ + + + [...] [place] | | | | | | [address] | | | | | | | [...]
--- OUTSIDE RECORDS SUMMARY | ~2019-12-21 | XMS | Encounter Summary ---
Demographics + + + | Address | [address] | | | [place] [address] | + + + | Home Phone [...] [place] | | | | | [address] | | + + + + + Care Team Providers + +------+ + | Care Field Sales Specialist Name | Role | Phone | + +------+ + | Sarah Carroll MD | PCP | | + +------+ + Encounter Details +--------+ + + + + | Date | Type | Department | Care Team | Description | +--------+ + + + + | 04/14/ | Transcribe | [facility] | Transcribe | | | 2019 | Orders | [facility] [address] | Encounter, Provider, | | | | | Nima Grijalva Mailcode: | [address] | | | | | [facility] | [place] [address] | | | | | [facility], | | | | | | [address] | | | | | | [place], [place] | | | | | | [address] | | | | | | [phone] | | | +--------+ + + + [...] | | 2019 | Visit | | [address] | | | | | | [address] | | | | | | [place], [place] | | | | | | [address] | | | | | | [phone] | | | | | | | | +--------+---------+ + + + documented as of this encounter Results COLONOSCOPY (07/01/2019 10:08 AM PST) + + | Specimen | + + | | + + + + + | Narrative | Performed At | + + + | MRN: | [facility] | | [id number] Date: 07/01/2019Patient Name: Aaron Justin #: | ENDOSCOPY | | [id number] of : 1960SN: [id number] Type: | | | AmbulatoryRoom: Endo 5Procedure: | | | ColonoscopyIndications: Therapeutic procedure for known | | | colon polypPatient Profile: This is a 59 year old male. Refer to | | | note in patient chart for | | | documentation of history and physical.Providers: WILLA | | | MD PEDRO (Doctor), CATARINA SOLIMAN RN | | | (Nurse), NGHIA YBARRA (Mining Detail Draftsperson)Referring MD: WILLA | | | PEDRO MDRequesting [...] the procedure. The [employer] | | | [id number] Colonoscope #[id number] was introduced | | | through the [...] | | any questions, please contact the coding specialist home health. | | | - Clear liquid diet [...]
--- OUTSIDE RECORDS SUMMARY | ~2019-12-21 | XMS | Encounter Summary ---
Demographics + + + | Address | [address] [address] | | | [place] [address] | + + + | Home Phone [...] Author + + + | Author | [facility] | | | and [place] | + + + | Organization | [facility] | | | and [...] Team Providers + +------+ + | Care Jewelry Store Manager Name | Role | Phone | [...] | | | | | lumbar | [address] | [address] | | | | | region with | [place], | [place], | | | | | neurogenic | [place] [address] | [place] [address] | | | | | claudication | Phone: | Phone: | | | | | Lumbar | [phone] | [phone] | | | | | radiculopath | Fax: | Fax: | | | | | y Bilateral | [phone] | [phone] | | | | | foot-drop | [...] PHYSIATRY [address] | MD [address] | | | | | [address] | [place], [place] | | | | | [place], [place] | [address] | | | | | [address] | | | | | | [phone] | | | +--------+ + + + [...] [place] | | | | | | [address] | | | | | | | [...]
--- OUTSIDE RECORDS SUMMARY | ~2019-12-21 | XMS | Encounter Summary ---
Demographics + + + | Address | [address] | | | [place] [address] | + + + | Home Phone [...] + + + | Author | [facility] | + + + | Organization | [facility] | + + + | Address | Unknown | + + + | Phone | Unavailable | + + + Support + + + + + | Name | Relationship | Address | Phone | + + + + + | Toby Latham | [place] | [address] | | | | | [place] | | | | | [address] | | + + + + + Care Team Providers + +------+ + | Care Biofuels Technology Manager Name | Role | Phone | [...] 04/15/ | Telephone | [facility] | [place], | Telephone follow-up | | 2019 | | [facility] [address] | [address] | | | | | [address] Mailcode: | [address] | | | | | [facility] | [place], [place] | | | | | Health and Healing, | [address] | | | | | [address] | [phone] | | | | | [place], [place] | | | | | | [address] | | | | | | [phone] | | | +--------+ + + + [...] Rd | | | | | | [place], [place] | | | | | | [address] | | | | | | [phone] | | | | | | | | +--------+---------+ + + + documented as of this encounter Visit Diagnoses Not on filedocumented in this encounter"
--- OUTSIDE RECORDS SUMMARY | ~2019-12-21 | XMS | Encounter Summary ---
Demographics + + + | Address | [address] [address] | | | [place] [address] | + + + | Home Phone [...] Team Providers + +------+ + | Care Cushion Former Name | Role | Phone | + +------+ + | Sarah Carroll MD | PCP | | + +------+ + Encounter Details +--------+ + + + + | Date | Type | Department | Care Team | Description | +--------+ + + + + | 06/06/ | Telephone | [facility] | Patrice Cross MD | | | 2017 | | [address] | [address] | | | | | [address] | [address] | | | | | [place], [place] | [address] | | | | | [address] | | | | | | [phone] | | | +--------+ + + + [...] | | | | | [address] [place] | | | | | | [address] | | | | | | | | +--------+---------+ + + + documented as of this encounter Visit Diagnoses Not on filedocumented in this encounter"
--- OUTSIDE RECORDS SUMMARY | ~2019-12-21 | XMS | Encounter Summary ---
Demographics + + + | Address | [address] [address] | | | [place] [address] | + + + | Home Phone | | + + + | Preferred Language | Unknown | + + + | Marital Status | Single | + + + | Orthodox Affiliation | 1077 | + + + | Race | Unknown | + + + | Ethnic Group | Unknown | + + + Author + + + | Author | [facility] | | | and [place] | + + + | Organization | [facility] | | | [...] Team Providers + +------+ + | Care National Account Manager Name | Role | Phone | [...] | MED CTR EXTERNAL | [address] | | | | | IMAGING [address] | [address] | | | | | [address] | [place] [address] | | | | | [place] [address] | | | | | | [phone] | | | +--------+ + + + [...] [place] | | | | | | [address] | | | | | | | [...]
--- OUTSIDE RECORDS SUMMARY | ~2019-12-21 | XMS | Encounter Summary ---
Demographics + + + | Address | [address] [address] | | | [place] [address] | + + + | Home Phone [...] Team Providers + +------+ + | Care Plating Technician Name | Role | Phone | + +------+ + | Sarah Carroll MD | PCP | | + +------+ + Encounter Details +--------+ + + + + | Date | Type | Department | Care Team | Description | +--------+ + + + + | 01/19/ | Orders Only | [facility] | Jewel Ulloa MD | | | 2019 | | NEPHROLOGY [place] | [address] [place] | | | | | [address] [place] | [address] [place], [place] | | | | | [address] [place], [place] | [address] | | | | | [address] | | | | | | [phone] | | | +--------+ + + + [...] [place] | | | | | | [address] | | | | | | | [...] | | | LAB | | | [facility] | | | | | + + [...]
--- OUTSIDE RECORDS SUMMARY | ~2019-12-21 | XMS | Encounter Summary ---
Demographics + + + | Address | [address] [address] | | | [place] [address] | + + + | Home Phone [...] Team Providers + +------+ + | Care Carpet Journeyman Name | Role | Phone | + [...] | | | | | DNA | [address] | | | | | | antibody | [place], | | | | | | positive | [place] [address] | | | | | | Peripheral | Phone: | | | | | | polyneuropat | [phone] | | | | | | hy Numbness | Fax: | | | | | | of both | [phone] | | | | | | lower [...] PHYSIATRY [address] | MD [address] | | | | | [address] | [place], [place] | | | | | [place], [place] | [address] | | | | | [address] | | | | | | [phone] | | | +--------+ + + + [...] [place] | | | | | | [address] | | | | | | | [...]
--- OUTSIDE RECORDS SUMMARY | ~2019-12-21 | XMS | Encounter Summary ---
Demographics + + + | Address | [address] | | | [place] [address] | + + + | Home Phone [...] Author + + + | Author | [facility] | + + + | Organization | [facility] | + + + | Address | Unknown | + + + | Phone | Unavailable | + + + Support + + + + + | Name | Relationship | Address | Phone | + + + + + | Toby Latham | ANNA | [address] | | | | | [place] | | | | | [address] | | + + + + + Care Team Providers + +------+ + | Care Pass Worker Name | Role | Phone | + +------+ + | Sarah Carroll MD | PCP | | + +------+ + Reason for Referral Consultation (Routine) + +--------+ + + + + | Status | Reason | Specialty | Diagnoses / | Referred By | Referred To | | | | | Procedures | Contact | Contact | + +--------+ + + + + | Authorized | | Spine | Diagnoses | Morgan, | Candice, | | | | | CKD | Milton Forman, | Richard Castellano, | | | | | (chronic | PA-C [address] | | | | | kidney | [address] | Jeffery [address] Torre | | | | | disease), | [place], [place] | [address] | | | | | stage III | [address] | [place], [place] | | | | | (HCC) | Phone: | [phone] | | | | | Malignant | [phone] | Phone: | | | | | neoplasm of | Fax: | [phone] | | | | | colon, | [phone] | Fax: | | | | | unspecified | | [phone] | | | | | part of | | | | | | | colon (HCC) | | | | | | | Ataxia | | | | | | | Lumbar | | | | | | | radiculopath | | | | | | | y Lumbar | | | | | | | stenosis | | | | | | | with | | | | | | | neurogenic | | | | | | | claudication | | | | | | | Left hip | | | | | | | pain Foot | | | | | | | drop, | | | | | | | bilateral | | | | | | | Procedures | | | | | | | CONSULT TO | | | | | | | SPINE | | | | | | | NEUROSURGERY | | | + +--------+ + + + + Physical Therapy (Routine) +--------+--------+ + + + + | Status | Reason | Specialty | Diagnoses / | Referred By | Referred To | | | | | Procedures | Contact | Contact | +--------+--------+ + + + + | Closed | | Physical | Diagnoses | Mora, | | | | | Therapy | CKD | Milton D, | | | | | | (chronic | PA-C [address] | | | | | | kidney | [address] | | | | | | disease), | [place], [place] | | | | | | stage III | [address] | | | | | | (HCC) | Phone: | | | | | | Malignant | [phone] | | | | | | neoplasm of | Fax: | | | | | | colon, | [phone] | | | | | | unspecified | | | | | | | part of | | | | | | | colon (HCC) | | | | | | | Ataxia | | | | | | | Lumbar | | | | | | | radiculopath | | | | | | | y Lumbar | | | | | | | stenosis | | | | | | | with | | | | | | | neurogenic | | | | | | | claudication | | | | | | | Left hip | | | | | | | pain | | | | | | | Procedures | | | | | | | PHYSICAL | | | | | | | THERAPY | | | | | | | REFERRAL | | | +--------+--------+ + + + + Diagnostic Testing (Routine) + +--------+ + + + + | Status | Reason | Specialty | Diagnoses / | Referred By | Referred To | | | | | Procedures | Contact | Contact | + +--------+ + + + + | Pending | | Radiology | Diagnoses | Mora, | | | Review | | | CKD | Milton D, | | | | | | (chronic | PA-C [address] | | | | | | kidney | [address] | | | | | | disease), | [place], [place] | | | | | | stage III | [address] | | | | | | (HCC) | Phone: | | | | | | Malignant | [phone] | | | | | | neoplasm of | Fax: | | | | | | colon, | [phone] | | | | | | unspecified | | | | | | | part of | | | | | | | colon (HCC) | | | | | | | Ataxia | | | | | | | Lumbar | | | | | | | radiculopath | | | | | | | y Lumbar | | | | | | | stenosis | | | | | | | with | | | | | | | neurogenic | | | | | | | claudication | | | | | | | Left hip | | | | | | | pain | | | | | | | Procedures | | | | | | | MRI SPINE | | | | | | | THORACIC WO | | | | | | | CONTRAST | | | + +--------+ + + + + Diagnostic Testing (Routine) + +--------+ + + + + | Status | Reason | Specialty | Diagnoses / | Referred By | Referred To | | | | | Procedures | Contact | Contact | + +--------+ + + + + | Pending | | Radiology | Diagnoses | Mora, | | | Review | | | CKD | Milton D, | | | | | | (chronic | PA-C [address] | | | | | | kidney | [address] | | | | | | disease), | [place], [place] | | | | | | stage III | [address] | | | | | | (HCC) | Phone: | | | | | | Malignant | [phone] | | | | | | neoplasm of | Fax: | | | | | | colon, | [phone] | | | | | | unspecified | | | | | | | part of | | | | | | | colon (HCC) | | | | | | | Ataxia | | | | | | | Lumbar | | | | | | | radiculopath | | | | | | | y Lumbar | | | | | | | stenosis | | | | | | | with | | | | | | | neurogenic | | | | | | | claudication | | | | | | | Left hip | | | | | | | pain | | | | | | | Procedures | | | | | | | MRI SPINE | | | | | | | CERVICAL WO | | | | | | | CONTRAST | | | + +--------+ + + + + Reason for Visit + + + | Reason | Comments | + + + | New patient | | | consultation | | + + + Intake Referral (Routine) +--------+--------+ + + + + | Status | Reason | Specialty | Diagnoses / | Referred By | Referred To | | | | | Procedures | Contact | Contact | +--------+--------+ + + + + | Closed | | Spine | Diagnoses | Roscoe, | Morgan, | | | | | | Riccardo Pinon MD | Milton Forman PA-C | | | | | Polyneuropat | [facility] | [address] | | | | | hy, | PHYSICIAN | Ave | | | | | unspecified | [facility] | [place], [place] | | | | | | [address] | [address] | | | | | Radiculopath | [address] | Phone: | | | | | y, lumbar | [place] | [phone] | | | | | region Pain | [place], [place] | Fax: | | | | | in left leg | [address] | [phone] | | | | | | Phone: | | | | | | Paresthesia | [phone] | | | | | | of skin | Fax: | | | | | | Anesthesia | [phone] | | | | | | of skin | | | | | | | [...] | | | | | | , left lower | | | | | | | limb | | | | | | | Spinal | | | | | | | stenosis, | | | | | | | lumbar | | | | | | | region with | | | | | | | neurogenic | | | | | | | claudication | | | | | | | | | | | | | | Spondylosis | | | | | | | without | | | | | | | myelopathy | | | | | | | or | | | | | | | radiculopath | | | | | | | y, lumbar | | | | | | | region | | | +--------+--------+ + + + + Encounter Details +--------+---------+ + + + | Date | Type | Department | Care Team | Description | +--------+---------+ + + + | 05/27/ | Office | [facility] at | Mora, Milton D, | Foot drop, bilateral | | 2019 | Visit | [facility] [address] | PA-C [address] | (Primary Dx); CKD | | | | Ave Mailcode: | [address] [facility] [place] | (chronic kidney | | | | [facility] | [address] | disease), stage III | | | | and Healing, | [phone] | ([facility]); Malignant | | | | [address] | | neoplasm of colon, | | | | [place], [place] | | unspecified part of | | | | [address] | | colon ([facility]); Ataxia; | | | | [phone] | | Lumbar | | | | | | radiculopathy; | | | | | | Lumbar stenosis with | | | | | | neurogenic | | | | | | claudication; Left | | | | | | hip pain | +--------+---------+ + + + Social History [...] + + + | Blood Pressure | - | - | | + [...] + + + + | Weight | 165.1 kg (364 lb) | 05/27/2019 11:10 AM | | | | | PDT | | + + + + + | Height | 180.3 cm (5' 11") | 05/27/2019 11:10 AM | | | | | PDT | | + + + + + | Body Mass Index | 50.77 | 05/27/2019 11:10 AM | | | | | PDT | | + + + + + documented in this encounter Progress Notes Milton Mora PA-C - 05/27/2019 11:30 AM PDTFormatting of this note might be different fr om the original. NEUROLOGICAL SURGERY SPINE CLINIC - HISTORY & PHYSICAL Chief Complaint: Foot drop and ataxia History of Present Illness: Mr. Latham is a 59 year old male with a complex medical history including BMI of 50, CHF, SUZI, possible RA (Rheum eval in process), colon cancer, AFIB (on Coumadin), and s/p left nep hrectomy with CKD. He reports lumbar issues started after ICU admission in 2016 for his comp juvenal medical issues and he has been neurologically stable since that time with foot drop and ataxia limiting his ability to walk. He is a challenging historian and much of his history i s taken from review of medical records/CE. Low back pain is constant 4/10. Aggravated by walking. Radiating pain down LLE to groin and medial thigh is aggravated by sneezing and hip motion. Pain over the last month is 50% back and 50% leg. Numbness to left lateral thigh since 2016 is constant. Foot drop bilaterally R >LLE since 2016 he reports is stable and he already has AFOs. He can walk 50 yards before he must stop due to bilateral "Hip pressure" that improves with rest. this is chronic and has improved with weight loss in past. Patient denies loss of control of bowel/bladder. He reports his ataxia is chronic since 2016, possible since 2014 when he often fell at work . Numbness in all fingers since 2016 is stable. 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 Persistent left machines technician weakness, difficulty with fine motor mov ements and increasingly dropping objects since 2016. He denies Cervical/thoracic pain/radicu lar symptoms The patient has tried: -Physical Therapy: in past with moderate relief, currently in process of scheduling -NSAIDs: Limits due to blood thinner and CKD -Tylenol with moderate relief The patient has not tried: -Gabapentin -Epidural steroid injections or medial branch blocks, not covered by [facility] Review of Systems: All other systems were reviewed by me personally on a complete review of systems questionna sarah that will be scanned into mth sense. Current medication list: Current Outpatient Medications Medication Sig allopurinol 300 [...] (15mg) on tuesdays, 3 (15mg) on fridays No current facility-administered medications for this visit. Allergies: No Known Allergies Past surgical history: Past Surgical History Procedure Laterality Date Colectomy 08/16/2017 Endoscopic carpal tunnel release of right wrist Right ulnar nerve release of right elbow 02/27/18 Left radical nephrectomy with hilar node dissection 06/11/2018 Colonoscopy tubular adenoma with focal high grade dysplasia of splenic flexure, villous adenoma cecum, mid ascending colon hyperplastic polyp and hyperplastic rectal polyp. widely patent coloproctectomy. 12/11/2018 Past medical history: Past Medical History: Diagnosis Date Angiomyolipoma of [...] hypothyroidism Vitamin B12 deficiency Vitamin D deficiency Social History: Social History Tobacco Use Smoking Status Never Smoker Smokeless Tobacco Former User Types: Chew Social History Substance and Sexual Activity Alcohol Use Not Currently Family History: I asked and the patient's family history is non-contributory for presenting complaint and findings. Physical Exam: Vital Signs: Ht 1.803 m (5' 11") | Wt 165.1 kg (364 lb) | BMI 50.77 kg/m | BSA 2.88 m General Appearance: No acute distress, well-groomed Orientation: Alert and oriented x 3, but mildly confused about PMHx Eyes: anicteric sclerae, moist conjunctivae HENT: Normocephalic, Atraumatic Neck: Trachea midline; no visible thyromegaly Lungs: No cyanosis or labored breathing CV: No peripheral edema, well-perfused with brisk capillary refill Skin: Normal temperature, no visible rashes Psych: Appropriate and cooperative Musculoskeletal: MOTOR SCORE LEFT RIGHT C5 (Shoulder Abduct) 5 5 C6 (Elbow Flex) 5 5 C7 (Elbow Ext) 5 5 C8 (Wrist Ext) 5 5 T1 (Pinky Abd) 5 * L2 (Hip Flex) 3 4+ L3 (Knee Ext) 5 5 L4 (Dorsiflexion) 1 2 L5 (EHL) 4- 4- S1 (Plantar Flex) 4+ 4+ Gait: Presents in wheelchair, able to stand on own, but uses cane at baseline and has high -steppage gait bilaterally and ataxia with heel to toe *traumatic amputation Neurological: Sensation grossly intact to light touch throughout and to pinpoint sensation throughout TENDON REFLEXES LEFT RIGHT C5-6 (Biceps) 2+ 2+ C6 (Brachioradialis) 2+ 2+ C7-8 (Triceps) 3+ 3+ L3-4 (Knee jerk) 3+ 3+ S1-2 (Achilles) 1+ 0 PATHOLOGIC REFLEXES LEFT RIGHT Kinsey neg neg Babinkski neg neg Clonus neg neg Straight leg raise: (-) Right, (-) Left FLORENCIA on left recreates left groin pain Imaging: Lumbar xrays and MRI 03/03/19 in [facility]. Per my informal read there is multilevel degenerativ e changes with multilevel central/foraminal stenosis worst at L4-5. EMG/NCS 01/12/19 IMPRESSION: This is an abnormal study. Nerve conduction study of both lower extremities and limited study of right upper extremity (for comparison) was abnormal. The findings are most consistent with peripheral polyneuropa thy. The neuropathy appears to involve sensory and motor axon loss. Since peroneal nerve responses were very limited, it was not possible to definitively deter mine if there was peroneal neuropathy, in either lower extremity, at the fibular heads. Weeks mirna, with the information obtained, peroneal neuropathy at [...] abnormal. Needle EMG of both lower extremities demo nstrated changes most consistent with axon loss peripheral neuropathy. The presence of lumba r radiculopathy cannot be excluded by this study. EMG study was limited because Aaron Latham is on Coumadin and recent INR was unavailable. We reviewed the risk of hematoma. EMG study was limited in hopes of reducing his hematoma risk. Assessment: Mr. Latham is a 59 year old male challenging historian with a complex medical history incl uding BMI of 50, CHF, SUZI, possible RA (Rheum eval in process), colon cancer, AFIB (on Couma din), and CKD s/p left nephrectomy. He has symptoms of neurogenic claudication and severe foot drop bilaterally, which he repo rts have been stable since 2016. MRI with multilevel central and foraminal stenosis. His his tory and exam also raise concern for left hip DJD. While his ataxia is likely multifactorial including peripheral neuropathy and BLE weakness , he has hyperreflexia on exam and cervical/thoracic myelopathy are on the differential and warrant further evaluation prior to lumbar surgical discussion Plan: -Left hip xrays to evaluate for DJD and C/T MRIs to evaluate for stenosis (no contrast give n last EGFR was 29), patient will call me back to review results when complete -Counseled on necessity of weight loss -Counseled on multifactorial nature of axial spine pain -Referral to Physical Therapy -Continue management of pain medication by PCP -Will set up [facility] Spine Surgeon appointment, need MRIs complete prior to appointment and sharif lebron is aware of poor prognosis of chronic neurological deficits and that he is a poor surg ical candidate. I spent at least 45 minutes [id number] with the patient. I spent more than 50% of this vi sit in coordination of care and counseling in which we discussed diagnosis, treatment, imagi ng studies and follow-up. Milton Mora PA-C [facility] AT [address] Mailcode: [place] [address] [facility] OPEN NOTE [[id number]] P DTdocumented in this encounter Plan of Treatment +--------+---------+ + + + | Date | Type | Specialty | Care Team | Description | +--------+---------+ + + + | 01/20/ | Office | Orthopedics | Richard Harvey, | | | 2019 | Visit | | [address] | | | | | | [address] | | | | | | [place], [place] | | | | | | [address] | | | | | | [phone] | | | | | | | | +--------+---------+ + + + + +---------+--------+ + + | Name | Type | Priori | Associated Diagnoses | Order Schedule | | | | ty | | | + +---------+--------+ + + | MRI SPINE CERVICAL | Imaging | Routin | CKD (chronic | Expected: | | WO CONTRAST | | e | kidney disease), | 05/27/2019, Expires: | | | | | stage III (HCC) | 06/27/2020 | | | | | Malignant neoplasm [...] | | hip pain | | + +---------+--------+ + + | MRI SPINE THORACIC | Imaging | Routin | CKD (chronic | Expected: | | WO CONTRAST | | e | kidney disease), | 05/27/2019, Expires: | | | | | stage III (HCC) | 06/27/2020 | | | | | Malignant neoplasm [...] | | hip pain | | + +---------+--------+ + + documented as of this encounter Results X-RAY HIP 2 VIEWS [...] MD | | 05/27/2019 12:42 PM Preliminary: Crhis Chicas MD Dictation initiated: Chris Souza | [...] necessary, edited the report. I agree with th e report as now presented. | | [...] + | Diagnosis | + + | Foot drop, bilateral - Primary Other acquired deformity of ankle and foot | + + | CKD (chronic kidney [...] thigh | + + documented in this encounter
--- OUTSIDE RECORDS SUMMARY | ~2019-12-21 | XMS | Encounter Summary ---
Demographics + + + | Address | [address] [address] | | | [place] [address] | + + + | Home Phone | | + + + | Preferred Language | Unknown | + + + | Marital Status | Single | + + + | Muslim Affiliation | 1077 | + + + [...] Team Providers + +------+ + | Care Forming Process Worker Name | Role | Phone | [...] + + | 07/10/ | Telephone | [facility] | Patrice Cross MD | Other (Lab order) | | 2017 | | [address] | [address] | | | | | [address] [place], [place] | [address] [place] | | | | | [address] | [address] | | | | | [phone] | | | +--------+ + + + [...] [place] | | | | | | [address] | | | | | | | [...]
--- OUTSIDE RECORDS SUMMARY | ~2019-12-21 | XMS | Clinical Summary ---
Demographics + + + | Address | [address] | | | [place] [address] | + + + | Home Phone [...] Team Providers + +------+ + | Care Gang Saw Operator Name | Role | Phone | + +------+ + | Sarah Carroll MD | PCP | | + +------+ + Allergies No Known Allergies Medications + + [...] | | Activ | | 325 mg tablet | 3 times daily (with | | | | | e | | | meals). | | | | | | + + + +---------+------+------+-------+ | carvedilol (COREG) | Take 6.25 mg by | | 0 | | | Activ | | 6.25 mg tablet | mouth 2 times daily | | | | | e | | | (with breakfast & | | | | | | | | dinner). | | | | | | + + + +---------+------+------+-------+ | hydrALAZINE | Take 50 mg by mouth | | 0 | | | Activ | | (APRESOLINE) 50 MG | 3 times daily. | | | | | e | | tablet | | | | | | | + + + +---------+------+------+-------+ | cyanocobalamin | Take 1,000 mcg by | | 0 | | | Activ | | (VITAMIN B-12) 1000 | mouth Daily. | | | | | e | | MCG tablet | | | | | | | + + + +---------+------+------+-------+ | Cholecalciferol | Take 2,000 Units by | | 0 | | | Activ | | (VITAMIN D-3) 2000 | mouth Daily. | | | | | e | | units CAPS | | | | | | | + + + +---------+------+------+-------+ | atorvaSTATin | Take 80 mg by mouth | | 0 | | | Activ | | (LIPITOR) 80 MG | nightly. | | | | | e | | tablet | | | | | | | + + + +---------+------+------+-------+ | warfarin | Take 5-10 mg by | | 0 | | | Activ | | (COUMADIN) 5 mg | mouth Daily. | | | | | e | | tablet | | | | | | | + + + +---------+------+------+-------+ | acetaminophen | Take 650 mg by mouth | | 0 | | | Activ | | (TYLENOL) 500 mg | every 6 hours as | | | | | e | | tablet | needed for Pain. | | | | | | + + + +---------+------+------+-------+ | levothyroxine | Take 50 mcg by mouth | | 0 | | | Activ | | (SYNTHROID) 50 mcg | every morning | | | | | e | | tablet | (before breakfast). | | | | | | + + + +---------+------+------+-------+ | magnesium oxide | Take 400 mg by mouth | | 0 | 02/1 | | Activ | | (MAG-OX) 400 mg | Daily. | | | 02/28 | | e | | tablet | | | | 19 | | | + + + +---------+------+------+-------+ | allopurinol | take 1 tablet by | | 0 | 05/2 | | Activ | | (ZYLOPRIM) 300 mg | mouth twice daily | | | 05/01 | | e | | tablet | | | | 19 | | | + + + +---------+------+------+-------+ | torsemide | Take 20 mg by mouth | | 0 | 05/0 | | Activ | | (DEMADEX) 10 mg | Daily. | | | 8 | | e | | tablet | | | | 19 | | | + + + +---------+------+------+-------+ | fish oil 1,000 mg | Take 1,000 mg by | | 0 | | | Activ | | capsule | mouth 3 times daily. | | | | | e | + + + +---------+------+------+-------+ Active Problems + + + | Problem | Noted Date | + + + | Positive NICKIE (antinuclear antibody) | 06/10/2019 | + + + + + | Last Assessment & Plan: Repeat NICKIE negative. Clinical | | suspicion for SLE is low. Likely an incidental finding.Discussed | | with the patient the significance of a positive NICKIE in the | | setting of rheumatic diseases, including the probability of | | having a condition in light of the history and physical exam of | | patient, indications for NICKIE testing. Discussed with patient the | | indications for doing complete NICKIE panel testing. Also discussed | | conditions that can cause a true positive and a false positive | | test result. She was advised to call us if she were to develop | | any new symptoms that would make her concernedPatient will return | | as needed. | + + + + + | SS-B antibody positive | 06/10/2019 | + + + | Osteoarthritis | 06/10/2019 | + + + | Ascending aorta dilatation | 06/01/2019 | + + + | Subclinical hypothyroidism | 03/30/2019 | + + + | Hyperuricemia | 01/07/2019 | + + + | Malignant tumor of cecum | 01/05/2019 | + + + | Family history of malignant neoplasm of colon | 12/01/2018 | + + + | Angiomyolipoma of left kidney | 10/30/2018 | + + + | History of left nephrectomy | 10/30/2018 | + + + | Class 3 obesity with alveolar hypoventilation without serious | 10/27/2018 | | comorbidity with body mass index (BMI) of 50.0 to 59.9 in adult | | + + + | Persistent proteinuria | 10/27/2018 | + + + | Bilateral leg edema | 07/28/2018 | + + + | Chronic kidney disease, stage 3 | 04/17/2018 | + + + + + | Overview: s/p left nephrectomy | + + + + + | History of colon cancer | 04/17/2018 | + + + + + | Overview: s/p resection in 2016 | + + + + + | Paroxysmal atrial fibrillation | 04/17/2018 | + + + | Renal neoplasm | 04/17/2018 | + + + | Anemia | 01/21/2017 | + + + | Obstructive sleep apnea on CPAP | 01/21/2017 | + + + + + | Overview: on cpap | + + + + + | Anemia of chronic renal failure, stage 3 (moderate) | 01/21/2017 | + + + | Chronic combined systolic and diastolic congestive heart failure | 03/29/2016 | + + + + + | Overview: Last Assessment & Plan: CHF, LVEF 40-45%. | | 56yo WM, in atrial fibrillation, Hx congestive heart failure. | | Complains of lightheadedness, orthostasis. Remains modestly | | active, continues to have some degree of exertional shortness of | | breath, but despite this, there is no orthopnea or, PND, or | | significant edema, his edema has resolved. Denies any chest | | pain. He denies any new visual disturbances, dysarthria, | | dysphasia, lateralizing signs or symptoms. Currently on | | warfarin, unaware of any significant bleeding or bruising. | | Tolerating medications. Because of his orthostasis, no change in | | hydralazine (50mg TID). Has not completed Lexiscan nuclear | | perfusion study. He'll monitor his blood pressure, and with his | | blood pressure tracings at next visit, because of his | | orthostasis, we reduced his torsemide 10 mg daily.Last Cath: | | naLast Echo, 02/16/2016 ([facility]): moderate LVH, global | | hypokinesis, LVEF 40-45%, moderate LAE, moderate CYNTHIA (suspect | | RVE), mild MR, trace TR, est systolic PAP 19-24mmHg.Last Stress | | Test: naECG, 02/19/2016: Atrial flutter with variable conduction, | | 100bpm, RBBB/LAFB, non-spec ST-T changes. | + + + + + | Essential hypertension with goal blood pressure less than 130/80 | 03/29/2016 | + + + + + | Overview: Last Assessment & Plan: Hypertension. Patient | | complains of lightheadedness, possible orthostasis, for now, no | | change, he'll continue the hydralazine to 50mg TID. He will | | monitor his blood pressure, bringing his blood pressure | | lightheadedness next visit. | + + + + + | Hyperlipidemia | 03/29/2016 | + + + + + | Overview: Last Assessment & Plan: Hyperlipidemia, continue | | current meds at current dose (atorvastatin). Labs anticipated. | + + Resolved Problems + + + + | Problem | Noted | Resolved | | | Date | Date | + + + + | Morbid obesity with BMI of 40.0-44.9, adult | 03/30/20 | | | | 19 | 9 | + + + + | DANNY (acute kidney injury) | 01/08/20 | | | | 19 | 9 | + + + + | Essential hypertension | 01/22/20 | | | | 17 | 9 | + + + + | Chronic kidney disease, stage II (mild) | 03/29/20 | | | | 16 | 9 | + + + + + + | Overview: Last Assessment & Plan: | | CKD, Stage 2. Renal function improved, ACEI sensitive. | + + + + + + | Persistent atrial fibrillation | 03/29/20 | | | | 16 | 9 | + + + + + + | Overview: Last Assessment & Plan: A fib/flutter, ?duration, | | CHADS2 Score 2 (CHF, HTN), on warfarin, managed by [facility] | | Coumadin clinic. At sometime in the future, consider | | cardioversion. | + + + + + + | Congestive heart failure (CHF) | 02/10/20 | | | | 16 | 9 | + + + + Encounters +--------+ + + + + | Date | Type | Specialty | Care Team | Description | +--------+ + + + + | 12/13/ | Virtual | Nephrology | Jewel Ulloa MD | Chronic kidney | | 2020 | Office | | | disease, stage 3 | | | Visit | | | (HCC) (Primary Dx); | | | | | | Anemia [...] | | | | 59.9 in adult ([facility]); | | | | | | Essential | | | | | | hypertension with | | | | | | goal blood pressure | | | | | | less than 130/80 | +--------+ + + + + | 12/13/ | Orders Only | Nephrology | Jewel Ulloa MD | Essential | | 2020 | | | | hypertension with | | | | | | goal blood pressure | | | | | | less than 130/80 | | | | | | (Primary Dx); | | | | | | Subclinical | | | | | | hypothyroidism; | | | | | | Chronic kidney | | | | | | disease, stage 3 | | | | | | ([facility]); | | | | | | Angiomyolipoma of | | | | | | left kidney; Anemia | | | | | | of chronic renal | | | | | | failure, stage 3 | | | | | | (moderate) ([facility]); | | | | | | Persistent | | | | | | proteinuria | +--------+ + + + + | 12/10/ | Documentati | Nephrology | Diane Nolen Results (12/10/19) | | 2020 | on | | Gabo Jay | | | | | | Head Of Partner Development | | +--------+ + + + + | 10/12/ | Office | Neurosurgery | Cordell Pedraza | Spinal stenosis of | | 2019 | Visit | | [place] | lumbar region | | | | | | without neurogenic | | | | | | claudication | | | | | | (Primary Dx); Lumbar | | | | | | herniated disc; | | | | | | Lumbar | | | | | | radiculopathy, | | | | | | chronic; Neuropathy | +--------+ + + + + | 10/02/ | Abstract | Neurosurgery | Cordell Pedraza | | | 2019 | | | [place] | | +--------+ + + + + from Last 3 Months Immunizations + + + + | Name | Administration Dates | Next Due | + + + + | INFLUENZA PF | 05/29/2019, 05/14/2018, 04/22/2017 | | | TRIVALENT(PED/ADOL/A | | | | KELLE)CELIA | | | + + + + | INFLUENZA, | 05/11/2009 | | | UNSPECIFIED | | | | FORMULATION | | | + + + + Family History + + +---------+ + | Medical History | Relation | Name | Comments | + + +---------+ + | No known problems | | Yohannes | | + + +---------+ + | No known problems | | Heath | | + + +---------+ + | Lung cancer | Father | | | + + +---------+ + | No known problems | Maternal | | | | | Grandfath | | | | | er | | | + + +---------+ + | No known problems | Maternal | | | | | Grandmoth | | | | | er | | | + + +---------+ + | Diabetes, NIDDM | Mother | Toby | | | | | Yeison | | + + +---------+ + | Gout | Mother | Toby | | | | | Latham | | + + +---------+ + | Hypertension | Mother | Toby | | | | | Latham | | + + +---------+ + | No known problems | Paternal | | | | | Grandfath | | | | | er | | | + + +---------+ + | No known problems | Paternal | | | | | Grandmoth | | | | | er | | | + + +---------+ + | No known problems | Sister | Lena | | + + +---------+ + + +---------+ + + | Relation | Name | Status | Comments | + +---------+ + + | Brother | Yohannes | Alive | | + +---------+ + + | Brother | Heath | Alive | | + +---------+ + + | Father | | | | + +---------+ + + | Maternal Grandfather | | | | + +---------+ + + | Maternal Grandmother | | | | + +---------+ + + | Mother | Toby | Alive | | | | [place] | | | + +---------+ + + | Paternal Grandfather | | | | + +---------+ + + | Paternal Grandmother | | | | + +---------+ + + | Sister | Lena | Alive | | + +---------+ + + Social History + +-------+ +--------+ [...] [place] | | | | | | [address] | | | | | | | | +--------+---------+ + + + + + + + + | Health Maintenance | Due Date | Last Done | Comments | + + + + + | Hepatitis C | | | | | Screening | 1 | | | + + + + + | Vaccine: | | | | | Pneumococcal 19-64 | 7 | | | | (1 of 3 - PCV13) | | | | + + + + + | Vaccine: | | | | | Dtap/Tdap/Td (1 - | 2 | | | | Tdap) | | | | + + + + + | Vaccine: Zoster (1 | | | | | of 2) | 1 | | | + + + + + | Colorectal Cancer | | 05/22/2017 | | | Screening | 7 | | | | (Colonoscopy) | | | | + + + + + | Vaccine: Influenza | Completed | 05/29/2019, 05/14/2018, | | | | | 04/22/2017, Additional history | | [...] section. | + +--------+ + + + from Last 3 Months Results External Lab: PTH, Intact (12/10/2019) + [...] + + | Blood | + + from Last 3 Months Insurance +---------+--------+ +--------+ + +------+ | Payer | Benefi | Subscriber | Effect | Phone | Address | Type | | | t Plan | ID | ascencion | | | | | | / | | Dates | | | | | | Group | | | | | | +---------+--------+ +--------+ + +------+ | PREMERA | PREMER | [id number] | 08/12/19 | [phone] | | PPO | | | A | 3 | 17-Pre | 0 | | | | | PREFER | | sent | | | | | | RED | | | | | | +---------+--------+ +--------+ + +------+ | MODA | MODA | [id number] | 08/12/19 | [phone] | [address] | PPO | | | AFFINI | | 20-Pre | 9 | [id number] | | | | T[place] | | sent | | [place], | | | | [place] | | | | [place] [address] | | | | STONE | | | | | | | | EPO | | | | | | +---------+--------+ +--------+ + +------+ | MODA | MODA | [id number] | 08/12/19 | [phone] | [address] | PPO | | | OEBB | | 20-Pre | 9 | [id number] | | | | [place]NEX | | sent | | [place], | | | | [place] | | | | [place] [address] | | +---------+--------+ +--------+ + +------+ + +--------+ +--------+ + + | Guarantor Name | Accoun | Relation to | Date | Phone | Billing Address | | | t Type | Patient | of | | | | | | | | | | + +--------+ +--------+ + + | Aaron Latham | Person | Self [birth year] | [address] | | | al/Fam | | 1959 | [phone] | [address] [place], | | | [place] | | | 1 (Home) | [place] [address] | + +--------+ +--------+ + + | Aaron Latham | Person | Self | [birth year] | [address] | | | al/Fam | | [birth year] | [phone] | [address] [place], | | | [place] | | | 1 (Home) | [place] [address] | + +--------+ +--------+ + + | Aaron Latham | Person | Self | [birth year] | [address] | | | al/Fam | | 1960 | [phone] | [address] [place], | | | [place] | | | 1 (Home) | [place] [address] | + +--------+ +--------+ + + Advance Directives + + + + + | Type | Date Recorded | Patient | Explanation | | | | X Ray Equipment Servicer | | + + + + + | Power of | | | | | Air And Hydronic Balancing Technician | | | | + + + + + | Advance | 08/09/2017 | | At Doctor & will with | | Directive | 12:18 PM | | | + + + + + + + + + + | Code Status | Date | Date | Comments | | | Activated | Inactivated | | + + + + + | Full Code | 06/11/2018 | 06/19/2018 | | | | 5:41 PM | 6:41 PM | | + + + + + + + + +---+ | | | | | + + + +---+ | Full Code | 08/16/2017 | 08/23/2017 | | | | 6:43 PM | 12:27 PM | | + + + +---+
--- OUTSIDE RECORDS SUMMARY | ~2019-12-21 | XMS | Encounter Summary ---
Demographics + + + | Address | [address] | | | [place] [address] | + + + | Home Phone [...] + + + | Author | [facility] | + + + | Organization | [facility] | + + + | Address | Unknown | + + + | Phone | Unavailable | + + + Support + + + + + | Name | Relationship | Address | Phone | + + + + + | Toby Latham | ANNA | [address] | | | | | [place] | | | | | [address] | | + + + + + Care Team Providers + +------+ + | Care Tray Checker Name | Role | Phone | [...] 04/15/ | Telephone | [facility] | [place], | Telephone follow-up | | 2019 | | [facility] [address] | [address] | | | | | Nima Grijalva Mailcode: | Jeffery [address] | | | | | [facility] | [place], [place] | | | | | [facility], | [address] | | | | | [address] | [phone] | | | | | [place], [place] | | | | | | [address] | | | | | | [phone] | | | +--------+ + + + [...] Rd | | | | | | [place], [place] | | | | | | [address] | | | | | | [phone] | | | | | | | | +--------+---------+ + + + documented as of this encounter Visit Diagnoses Not on filedocumented in this encounter"
--- OUTSIDE RECORDS SUMMARY | ~2019-12-21 | XMS | Encounter Summary ---
Demographics + + + | Address | [address] [address] | | | [place] [address] | + + + | Home Phone [...] + + + | Author | [facility] | | | and [place] | + + + | Organization | [facility] | | [...] Team Providers + +------+ + | Care Assembler Fluorescent Lights Name | Role | Phone | + [...] | [facility] | MD [address] | | | | | IMAGING [address] | [address] | | | | | [address] | [place] [address] | | | | | [place] [address] | | | | | | [phone] | | | +--------+ + + + [...] [place] | | | | | | [address] | | | | | | | [...]
--- OUTSIDE RECORDS SUMMARY | ~2019-12-21 | XMS | Encounter Summary ---
Demographics + + + | Address | [address] [address] | | | [place] [address] | + + + | Home Phone [...] + + + | Author | [facility] | | | and [place] | + + + | Organization | [facility] | [...] Team Providers + +------+ + | Care Dollyman Name | Role | Phone | + [...] + + | 12/10/ | Documentati | [facility] | Nolen, | Results (12/10/19) | | 2020 | on | NEPHROLOGY [place] | [facility] | | | | | [address] | Workers Compensation Claims Analyst | | | | | [address] [place], [place] | | | | | | [address] | | | | | | [phone] | | | +--------+ + + + [...] | | | | | [place] | | | | | | [address] | | | | | | | [...]
--- OUTSIDE RECORDS SUMMARY | ~2019-12-21 | XMS | Encounter Summary ---
Demographics + + + | Address | [address] [address] | | | [place] [address] | + + + | Home Phone [...] Team Providers + +------+ + | Care Washroom Operator Name | Role | Phone | [...] | | | (HCC) [place] | [place] [address] | [address] Phone: | | | | | nephrec | Phone: | [phone] | | | | | 06/11, BMP | [phone] | Fax: | | | | | prior | Fax: | [phone] | | | | | Procedures | [phone] | | | | | | [place] POST-OP | | | | | | | FOLLOW-UP | | | | | | | VISIT CC | | | | | | | POST-OP | | | +--------+--------+ + + + + Encounter Details +--------+---------+ + + + | Date | Type | Department | Care Team | Description | +--------+---------+ + + + | 07/17/ | Office | [facility] | Patrice Cross MD | Angiomyolipoma | | 2018 | Visit | [address] | [address] | (Primary Dx) | | | | [address] | [address] [place] | | | | | [place] | [address] | | | | | [address] | | | | | | [phone] | | | +--------+---------+ + + + [...] Ag MD - 07/17/2018 10:20 AM PST [facility] OFFICE NOTE Primary Care Physician: Sarah [...] profoundly dehydrated and admitted I V[place] in [place]. Pathology report: FINAL DIAGNOSIS: A. Lymph nodes, [...] FLEXIBLE SIGMOIDOSCOPY; Surgeon: Mehul Bowles MD; Location: [facility] MAIN OR COLONOSCOPY 05/22/2017 FINGER SURGERY Right 1974 AMPUTATION 5th finger TONSILLECTOMY 1969 TOTAL NEPHRECTOMY Left 06/11/2018 Procedure: LEFT LAPAROSCOPIC NEPHRECTOMY WITH NODE DISSECTION AND LAPAROSCOPIC LYSIS OF AD HESIONS; Surgeon: Patrice Cross MD; Location: [facility] MAIN OR MEDICATIONS Current Outpatient Prescriptions [...] 07/17/2018 at 10:53 CC: Sarah Gallegos MD [address] [facility] [place] [address] documented in this encou nter Plan of Treatment +--------+---------+ + + + | Date | Type | Specialty | Care Team | Description | +--------+---------+ + + + | 03/17/ Office | Cardiology | Lorraine Clifton DO | | | 2020 | Visit | | [address] | | | | | | [place] | | | | | | [address] | | | | | | | | +--------+---------+ + + + documented as of this encounter Visit Diagnoses + + | Diagnosis | + + | 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
--- OUTSIDE RECORDS SUMMARY | ~2019-12-21 | XMS | Encounter Summary ---
Demographics + + + | Address | [address] | | | [place] [address] | + + + | Home Phone [...] [place] | | | | | [address] | | + + + + + Care Team Providers + +------+ + | Care Stem Cutter Name | Role | Phone | + [...] Rd | | | | | | [place], [place] | | | | | | [address] | | | | | | [phone] | | | | | | | | +--------+---------+ + + + documented as of this encounter Visit Diagnoses Not on filedocumented in this encounter"
--- OUTSIDE RECORDS SUMMARY | ~2019-12-21 | XMS | Encounter Summary ---
Demographics + + + | Address | [address] | | | [place] [address] | + + + | Home Phone [...] + + + | Author | [facility] | + + + | Organization | [facility] | + + + | Address | Unknown | + + + | Phone | Unavailable | + + + Support + + + + + | Name | Relationship | Address | Phone | + + + + + | Toby Latham | ANNA | [address] | | | | | [place] | | | | | [address] | | + + + + + Care Team Providers + +------+ + | Care Flagstone Layer Name | Role | Phone | + +------+ + PCP | Unavailable | + +------+ + Encounter Details +--------+ + + + + | Date | Type | Department | Care Team | Description | +--------+ + + + + | 05/23/ | Emergency | [facility] Emergency | | | | 2016 | | Department [address] | | | | | | [address] | | | | | | [facility] | | | | | | [place], [place] | | | | | | [address] | | | | | | [phone] | | | +--------+ + + + [...] Rd | | | | | | [place], [place] | | | | | | [address] | | | | | | [phone] | | | | | | | | +--------+---------+ + + + documented as of this encounter Visit Diagnoses Not on filedocumented in this encounter"
--- OUTSIDE RECORDS SUMMARY | ~2019-12-21 | XMS | Encounter Summary ---
Demographics + + + | Address | [address] [address] | | | [place] [address] | + + + | Home Phone [...] Providers + +------+ + | Care It Instructor Name | Role | Phone | + +------+ + | Sarah Carroll MD | PCP | | + +------+ + Encounter Details +--------+ + + + + | Date | Type | Department | Care Team | Description | +--------+ + + + + | 01/22/ | Orders Only | [facility] | Maulikatyla Ileana | | | 2017 | | CARDIOLOGY [place] | [address] | | | | | [address] | [address] | | | | | [place], [place] | [place] [address] | | | | | [address] | [phone] | | | | | [phone] | | | +--------+ + + + [...] [place] | | | | | | [address] | | | | | | | [...]
--- OUTSIDE RECORDS SUMMARY | ~2019-12-21 | XMS | Encounter Summary ---
Demographics + + + | Address | [address] [address] | | | [place] [address] | + + + | Home Phone [...] Team Providers + +------+ + | Care Bread Dumper Name | Role | Phone | + +------+ + | Sarah Carroll MD | PCP | | + +------+ + Encounter Details +--------+ + + + + | Date | Type | Department | Care Team | Description | +--------+ + + + + | 12/18/ | Orders Only | [facility] | Conversion | | | 2019 | | NEPHROLOGY [place] | Transaction, | | | | | [address] | Provider Unknown | | | | | [address] [place], [place] | [phone] | | | | | [address] | (Fax) | | | | | [phone] | | | +--------+ + + + [...] | | | | | [address] [place], [place] | | | | | | [address] | | | | | | | [...]
--- OUTSIDE RECORDS SUMMARY | ~2019-12-21 | XMS | Encounter Summary ---
Demographics + + + | Address | [address] [address] | | | [place] [address] | + + + | Home Phone [...] Team Providers + +------+ + | Care Exposure Machine Operator Name | Role | Phone [...] | | | | | hy, | [address] | [address] | | | | | unspecified | [place], | [place] | | | | | Elevated | [place] [id number] | [address] | | | | | C-reactive | Phone: | Phone: | | | | | protein | [phone] | [phone] | | | | | (CRP) Other | Fax: | Fax: | | | | | specified | [phone] | [phone] | | | | | abnormal | [...] + + | 06/10/ | Office | [facility] | Mindy Nielsen | Positive NICKIE | | 2019 | Visit | RHEUMATOLOGY [address] | [address] | (antinuclear | | | | [address] | [address] | antibody) (Primary | | | | [place] | [place] [address] | Dx) | | | | [address] | [phone] | | | | | [phone] | | | +--------+---------+ + + + [...] encounter Patient Instructions Patient Instructions Carmen Bailey Boom Man - 06/10/2019 10:20 AM PDTWe hope t hat you have experienced exceptional care today and that you found our service to be courteo us and helpful. If you have any questions or need medication refills you can send us a message/request u [employer] or call our office at [phone]. To reach Carmen CARROLL-C type extension [phone] To reach Paddy CT-C type extension [phone] If you are unable to reach a [...] can also look at your results on [employer]. If you are experiencing an emergency, please [...] Has been seeing Dr. Malhotra neurologist in [place] which did a nerve conduction study which [...] SEDRATE Imaging: Laboratory results were reviewed in [facility] as well as chart notes [...] | | | | | [place] | | | | | | [id number] | | | | | | | | +--------+---------+ + + + documented as of this encounter Visit Diagnoses + + | Diagnosis | + + | Positive NICKIE (antinuclear antibody) - Primary Other and unspecified nonspecific | | immunological findings | + + documented in this encounter
--- OUTSIDE RECORDS SUMMARY | ~2019-12-21 | XMS | Encounter Summary ---
Demographics + + + | Address | [address] | | | [place] [address] | + + + | Home Phone | | + + + | Preferred Language | Unknown | + + + | Marital Status | Single | + + + | Orthodoxy Affiliation | LDS | + + + | Race | White | + + + | Ethnic Group | Not or | + + + Author + + + | Author | [facility] | + + + | Organization | [facility] | + + [...] [address] | | | | | [address]2017 | | + + + + + Care Team Providers + +------+ + | Care Identification Clerk Name | Role | Phone | [...] | | | | (chronic | PA-C [address] | | | | | kidney | [address] | [address] | | | | | disease), | [place], [place] | [address] | | | | | stage III | [address] | [place], [place] | | | | | (HCC) | Phone: | [address] | | | | | Malignant | [phone] | Phone: | | | | | neoplasm of | Fax: | [phone] | | | | | colon, | [phone] | Fax: | | | | | unspecified | | [phone] | | | | | part of [...] | | | | | disease), | [place], [place] | | | | | | stage III | [address] | | | | | | (HCC) | Phone: | | | | | | Malignant | [phone] | | | | | | neoplasm of | Fax: | | | | | | colon, | [phone] | | | | | | unspecified [...] | | | | | disease), | [place], [place] | | | | | | stage III | [address] | | | | | | (HCC) | Phone: | | | | | | Malignant | [phone] | | | | | | neoplasm of | Fax: | | | | | | colon, | [phone] | | | | | | unspecified [...] | | | | | disease), | [place], [place] | | | | | | stage III | [address] | | | | | | (HCC) | Phone: | | | | | | Malignant | [phone] | | | | | | neoplasm of | Fax: | | | | | | colon, | [phone] | | | | | | unspecified [...] | | | | | Polyneuropat | [facility] | [address] | | | | | hy, | PHYSICIAN | Ave | | | | | unspecified | [facility] | [place], [place] | | | | | | [address] | [address] | | | | | Radiculopath | [address] | Phone: | | | | | y, lumbar | [place] | [phone] | | | | | region Pain | [place] | Fax: | | | | | in left leg | [address] | [phone] | | | | | | Phone: | | | | | | Paresthesia | [phone] | | | | | | of skin | Fax: | | | | | | Anesthesia | [phone] | | | | | | of [...] | | | Ave Mailcode: | Ave [facility] [place] | (chronic kidney | | | | [place] [facility] | [address] | disease), stage III | | | | and Healing, | [phone] | ([facility]); Malignant | | | | [address] | | neoplasm of colon, | | | | [place], [place] | | unspecified part of | | | | [address] | | colon ([facility]); Ataxia; | | | | [phone] | | Lumbar | | | | [...] since 2016 is stable. weakness in right bundle collector improved mildly with CTR and ulnar surgery in 2018. Persistent left bundle collector weakness, difficulty with fine motor mov ements [...] questionna sarah that will be scanned into [employer]. Current medication list: Current Outpatient Medications Medication [...] pain medication by PCP -Will set up [facility] Spine Surgeon appointment, need MRIs complete prior to appointment and sharif lebron is aware of poor prognosis of chronic neurological deficits and that he is a poor surg ical candidate. I spent at least 45 minutes [id number] with the patient. I spent more than 50% of this vi sit in coordination of care and counseling in which we discussed diagnosis, treatment, imagi ng studies and follow-up. Milton Mora PA-C SPINE CENTER AT [address] Mailcode: [place] [address] [facility] OPEN NOTE [[id number]] P DTdocumented in this encounter Plan of Treatment +--------+---------+ + + + | Date | Type | Specialty | Care Team | Description | +--------+---------+ + + + | 01/20/ | Office | Orthopedics | Richard Harvey, | | | 2019 | Visit | | [address] | | | | | | [address] | | | | | | [place], [place] | | | | | | [address] | | | | | | [phone] | | | | | | | [...]
--- OUTSIDE RECORDS SUMMARY | ~2019-12-21 | XMS | Encounter Summary ---
Demographics + + + | Address | [address] [address] | | | [place] [address] | + + + | Home Phone [...] Team Providers + +------+ + | Care Ticker Maintainer Name | Role | Phone | + [...] | MED CTR EXTERNAL | MD [address] | | | | | IMAGING [address] | [address] | | | | | [address] | [place] [address] | | | | | [place] [address] | | | | | | [phone] | | | +--------+ + + + [...] [place] | | | | | | [address] | | | | | | | [...]
--- OUTSIDE RECORDS SUMMARY | ~2019-12-21 | XMS | Encounter Summary ---
Demographics + + + | Address | [address] [address] | | | [place] [address] | + + + | Home Phone [...] Team Providers + +------+ + | Care Showroom Consultant Name | Role | Phone | + +------+ + | Sarah Carroll MD | PCP | | + +------+ + Encounter Details +--------+ + + + + | Date | Type | Department | Care Team | Description | +--------+ + + + + | 07/28/ | Orders Only | [facility] | Jewel Ulloa MD | | | 2018 | | NEPRHOLOGY [place] | [address] | | | | | [address] | [address] [place], [place] | | | | | [address] [place], [place] | [address] | | | | | [address] | | | | | | [phone] | | | +--------+ + + + [...] | | | | [address] [place] | | | | | | [address] | | | | | | | [...]
--- OUTSIDE RECORDS SUMMARY | ~2019-12-21 | XMS | Encounter Summary ---
Demographics + + + | Address | [address] [address] | | | [place] [address] | + + + | Home Phone [...] Team Providers + +------+ + | Care Barrel Washer Machine Name | Role | Phone | [...] Provider Unknown | | | | | [address] | [phone] | | | | | [phone] | | | +--------+ + + + [...] [place] | | | | | | [address] | | | | | | | [...]
--- OUTSIDE RECORDS SUMMARY | ~2019-12-21 | XMS | Encounter Summary ---
Demographics + + + | Address | [address] | | | [place] [address] | + + + | Home Phone | | + + + | Preferred Language | Unknown | + + + | Marital Status | Single | + + + | Congregation Affiliation | LDS | + + + | Race | White | + + + | Ethnic Group | Not or | + + + Author + + + | Author | [facility] | + + + | Organization | [facility] | + + + | Address | Unknown | + + + | Phone | Unavailable | + + + Support + + + + + | Name | Relationship | Address | Phone | + + + + + | Toby Latham | [place] | [address] | | | | | [place] | | | | | [address] | | + + + + + Care Team Providers + +------+ + | Care Hand Straightener Name | Role | Phone | + [...] | | | | | | SD | | | | | | | COLONOSCOPY, | | | | | | | FLEX, | | | | | | | W/BIOPSY SD | | | | | | | | | | | | | | COLONOSCOPY, | | | | | | | YUNI URIBE BY | | | | | | | SNARE | | | | | | | TECHNIQUE | | | | | | | SD | | | | | | | [...] | | | | | | SD ANES LWR | | | | | | | INTST NDSC | | | | | | | NOS | | | +--------+--------+ + + + + Encounter Details +--------+ + + + + | Date | Type | Department | Care Team | Description | +--------+ + + + + | 07/01/ | Anesthesia | [facility] | Adolfo Ace, | | | 2018 | Event | [facility] [address] | [address] | | | | | Nima Grijalva Mailcode: | [address] | | | | | [facility] | [place], [place] | | | | | Health and Healing, | [address] | | | | | [address] | [phone] | | | | | [place], [place] | | | | | | [address] | Radha Link CRNA | | | | | [phone] | [address] | | | | | | [address] | | | | | | [place], [place] | | | | | | [address] | | | | | | [phone] | | | | | | | [...] Rd | | | | | | [place], [place] | | | | | | [address] | | | | | | [phone] | | | | | | | [...]
--- OUTSIDE RECORDS SUMMARY | ~2019-12-21 | XMS | Encounter Summary ---
Demographics + + + | Address | [address] | | | [place] [address] | + + + | Home Phone [...] Author + + + | Author | [facility] | + + + | Organization | [facility] | + + + | Address | Unknown | + + + | Phone | Unavailable | + + + Support + + + + + | Name | Relationship | Address | Phone | + + + + + | Toby Latham | [place] | [address] | | | | | [place] | | | | | [address] | | + + + + + Care Team Providers + +------+ + | Care Prestidigitator Name | Role | Phone | + +------+ + | Sarah Carroll MD | PCP | | + +------+ + Encounter Details +--------+ + + + + | Date | Type | Department | Care Team | Description | +--------+ + + + + | 07/13/ | Procedure | [address] | | | | 2019 | Pass | [address] | | | | | | [facility] | | | | | | Hospital Admitting | | | | | | Desk Located on the | | | | | | 9th floor | | | | | | [place], [place] | | | | | | [address] | | | +--------+ + + + [...] Rd | | | | | | [place], [place] | | | | | | [address] | | | | | | [phone] | | | | | | | | +--------+---------+ + + + documented as of this encounter Visit Diagnoses Not on filedocumented in this encounter"
--- OUTSIDE RECORDS SUMMARY | ~2019-12-21 | XMS | Encounter Summary ---
Demographics + + + | Address | [address] [address] | | | [place] [address] | + + + | Home Phone [...] Team Providers + +------+ + | Care Rail Car Operator Name | Role | Phone | [...] | bilateral | [address] | | | | n | low back | [address] | [place], | | | | | pain with | [place], | [place] [address] | | | | | bilateral | [place] [address] | Phone: | | | | | sciatica | Phone: | [phone] | | | | | Bilateral | [phone] | Fax: | | | | | foot-drop | Fax: | [phone] | | | | | Numbness of | [phone] | | | | | | both lower | | | | | | | extremities | | | | | | | Procedures | | | | | | | MA MOTOR | | | | | | | &/SENS / | | | | | | | NRV CNDJ | | | | | | | PRECONF | | | | | | | ELTRODE LIMB | | | | | | | MA NEEDLE | | | | | | | EMG EA | | | | | | | EXTREMITY | | | | | | | W/PARASPINL | | | | | | | AREA LIMITED | | | | | | | MA MOTOR | | | | | | | &/SENS - | | | | | | | NRV CNDJ | | | | | | | PRECONF | | | | | | | ELTRODE LIMB | | | | | | | MA OFFICE | | | | | | [...] PHYSIATRY [address] | MD [address] | polyneuropathy | | | | [address] | [place] | (Primary Dx); | | | | [place] | [address] | Chronic bilateral | | | | [address] | | low back pain with | | | | [phone] | | bilateral sciatica; | | | [...] might be different fro m the original. [facility] Physical Medicine & Rehabilitation [address] [place] [address], [address] [place] [address] Test Date: 01/12/2019 Patient Name: Aaron Latham : 1960 Physician: Riccardo Malhotra MD () MR #: [id number] Sex: Male Referring Physician: Sarah Carroll HISTORY: [...] face with Aaron Latham, over half of [facility] h was spent formulating and discussing [...]
--- OUTSIDE RECORDS SUMMARY | ~2019-12-21 | XMS | Encounter Summary ---
Demographics + + + | Address | [address] [address] | | | [place] [address] | + + + | Home Phone [...] Providers + +------+ + | Care Food Equipment Service Technician Name | Role | Phone | [...] | | | [address] [place], [place] | [phone] | | | | | [address] | (Fax) | | | | | [phone] | | | +--------+ + + + [...] | | | | | [place], [place] | | | | | | [address] | | | | | | | [...]
--- OUTSIDE RECORDS SUMMARY | ~2019-12-21 | XMS | Encounter Summary ---
Demographics + + + | Address | [address] | | | [place] [address] | + + + | Home Phone [...] + + + | Author | [facility] | + + + | Organization | [facility] | + + + | Address | Unknown | + + + | Phone | Unavailable | + + + Support + + + + + | Name | Relationship | Address | Phone | + + + + + | Toby Latham | [place] | [address] | | | | | [place] | | | | | [address] | | + + + + + Care Team Providers + +------+ + | Care Tube Handler Name | Role | Phone | + [...] | villous | [address] | [place] | | | | | adenoma | [address] | [address] | | | | | Procedures | Rd | floor | | | | | CONSULT TO | [place], [place] | [place], [place] | | | | | GI PROCEDURE | [address] | [address] | | | | | UNIT: | Phone: | Phone: | | | | | COLONOSCOPY | [phone] | [phone] | | | | | | Fax: | Fax: | | | | | | [phone] | [phone] | +--------+--------+ + + + + Encounter Details +--------+ + + + + | Date | Type | Department | Care Team | Description | +--------+ + + + + | 04/14/ | Customs Compliance Analyst | [facility] | [place], | Polyp of colon, | | 2018 | | [facility] [address] | MD [address] | villous adenoma | | | | [address] Mailcode: | [address] | (Primary Dx) | | | | [facility] | [place], [place] | | | | | Health and Healing, | [address] | | | | | [address] | [phone] | | | | | [place], [place] | | | | | | [address] | | | | | | [phone] | | | +--------+ + + + [...] Rd | | | | | | [place], [place] | | | | | | [address] | | | | | | [phone] | | | | | | | | +--------+---------+ + + + documented as of this encounter Visit Diagnoses + + | Diagnosis | + + | Polyp of colon, villous adenoma - Primary Benign neoplasm of colon | + + documented in this encounter"
--- OUTSIDE RECORDS SUMMARY | ~2019-12-21 | XMS | Encounter Summary ---
Demographics + + + | Address | [address] [address] | | | [place] [address] | + + + | Home Phone [...] + + | Author | [facility] | | | and [place] | + + + | Organization | [facility] | | [...] Team Providers + +------+ + | Care Glove Factory Sewer Name | Role | Phone | + +------+ + PCP | Unavailable | + +------+ + Encounter Details +--------+ + + + + | Date | Type | Department | Care Team | Description | +--------+ + + + + | 02/06/ | Hospital | [facility] | Conversion | Chronic combined | | 2017 | Encounter | [facility] | Transaction, | systolic and | | | | CLINICAL DECISION | Provider Unknown | diastolic congestive | | | | UNIT [address] [facility] | [phone] | heart failure | | | | [place], [place] | | ([facility]); Persistent | | | | [address] | Rocael Benedict, | atrial fibrillation | | | | [phone] | MD [address] | ([facility]); Essential | | | | | [place] [address] | hypertension with | | | | | [phone] | goal blood pressure | | | [...] effort | | | | | | ([facility]); Chronic | | | | | | [...] 02/06/171900 Date of Service: 02/06/171855 Status: Signed Anesthesiologist Assistant: Penelope Dale RN (Registered Nurse) Dr. Benedict 's phone Called and message left - Florencia notified Him That Aaron Latham Had 1 hour Left For iv Hydration and Left [place]. Devendra onver tara Transaction, Provider Unknown - 02/06/2017 6:56 PM PDT Progress Notes by Penelope Dale RN at 02/06/171855 Author: Penelope Dale RN Service: (none) Author Type: Registered Nurse Filed: 02/06/171903 Date of Service: 02/06/171855 Status: Signed Anesthesiologist Assistant: Penelope Dale RN (Registered Nurse) Personal Belongings With pt. Pt Wheeled To car With medical dir/car. Mother With Pt. Pt Awake and alert and No Distress. Devendra onver tara Transaction, Provider Unknown - 02/06/2017 6:54 PM PDT Progress Notes by Penelope Dale RN at 02/06/171853 Author: Penelope Dale RN Service: (none) Author Type: Registered Nurse Filed: 02/06/171901 Date of Service: 02/06/171853 Status: Addendum Anesthesiologist Assistant: Penelope Dale RN (Registered Nurse) Related Notes: [...] home. Son Signed ama form rn Called Data Base Design Analyst per mother's Demand. Tr band Instructions Reviewed with pt And mother By Nurse Miko- Malka Casey trband Site Cleaned per Policy and Sterile Dressing Applied. Devendra onver tara Transaction, Provider Unknown - 02/06/2017 6:40 PM PDT Progress Notes by Penelope Dale RN at 02/06/171839 Author: Penelope Dale RN Service: (none) Author Type: Registered Nurse Filed: 02/06/171840 Date of Service: 02/06/171839 Status: Signed Anesthesiologist Assistant: Penelope Dale RN (Registered Nurse) rn Diego Answered Dr. Benedict Phone/who is in middle of procedure/unable To talk Now. Devendra onver tara Transaction, Provider Unknown - 02/06/2017 6:35 PM PDT Progress Notes by Penelope Dale RN at 02/06/171834 Author: Penelope Dale RN Service: (none) Author Type: Registered Nurse Filed: 02/06/171836 Date of Service: 02/06/171834 Status: Signed Anesthesiologist Assistant: Penelope Dale RN (Registered Nurse) Pt And Mother Demanding to Go home Now. Pt States Drank 2000 Cc And Peed 550 Urine. Have A Data Base Design Analyst Waiting Since 10 am. Plan of Care has Been Reviewed With pt And mother for Discharge At 8pm Repeated And they Had Agreed. No mention of Data Base Design Analyst Outside ever Mentioned. Devendra onver tara Transaction, Provider Unknown - 02/06/2017 4:19 PM PDT Progress Notes by Penelope Dale RN at 02/06/17 1619 Author: Penelope Dale RN Service: (none) Author Type: Registered Nurse Filed: 02/06/17 1705 Date of Service: 02/06/17 1619 Status: Addendum Anesthesiologist Assistant: Penelope Dale RN (Registered Nurse) Related Notes: [...] Date of Service: 02/06/17 1139 Status: Signed Anesthesiologist Assistant: Lary Stuart RN (Registered Nurse) Sodium Bicarbonate 4.2% 5ml given infiltrate right wrist onver tara Transaction, Provider Unknown - 02/06/2017 11:39 AM PDT Nurse Progress Note by Lary Stuart RN at 02/06/17 1139 Author: Lary Stuart RN Service: Cardiac, Thoracic, and Vascular Surgery Author Typ e: Registered Nurse Filed: 02/11/17 1030 Date of Service: 02/06/171138 Status: Addendum Anesthesiologist Assistant: Lary Stuart RN (Registered Nurse) Related Notes: [...] | | | | | [address] [place] | | | | | | [address] | | | | | | | [...] EXTERNAL | | | | performed at [facility], [address] | | LAB | | | | [address], | | | | | | [place] [address] | | | | + + + [...] | | performed at [facility] | | | | | | [facility];[place], [place] | | | | | | [address] | | | | + + + [...] K/uL | LAB | | | | [address];[place] | | | | | | [address] | | | | + + + [...] | | | Calculated | performed at [facility], [address] | | LAB | | | | [address], | | | | | | [place] [address] | | | | + + + [...] | | | at [facility];[address] [place] [address] | | | | | | [facility];[place] [address] | | | | + + + [...]
--- OUTSIDE RECORDS SUMMARY | ~2019-12-21 | XMS | Encounter Summary ---
Demographics + + + | Address | [address] | | | [place] [address] | + + + | Home Phone [...] Author + + + | Author | [facility] | + + + | Organization | [facility] | + + + | Address | Unknown | + + + | Phone | Unavailable | + + + Support + + + + + | Name | Relationship | Address | Phone | + + + + + | Toby Latham | ANNA | [address] | | | | | [place] | | | | | [address] | | + + + + + Care Team Providers + +------+ + | Care Commercial Parts Professional Name | Role | Phone | + +------+ + PCP | Unavailable | + +------+ + Encounter Details +--------+ + + + + | Date | Type | Department | Care Team | Description | +--------+ + + + + | 05/23/ | Emergency | [facility] Emergency | | | | 2016 | | Department [address] | | | | [address] | | | | | | [facility] | | | | | | [place], [place] | | | | | | [address] | | | | | | [phone] | | | +--------+ + + + [...] Rd | | | | | | [place], [place] | | | | | | [address] | | | | | | [phone] | | | | | | | | +--------+---------+ + + + documented as of this encounter Visit Diagnoses Not on filedocumented in this encounter"
--- OUTSIDE RECORDS SUMMARY | ~2019-12-21 | XMS | Encounter Summary ---
Demographics + + + | Address | [address] [address] | | | [place] [address] | + + + | Home Phone [...] Team Providers + +------+ + | Care Berry Planter Name | Role | Phone | + [...] | | | (HCC) [place] | [place] [address] | [address] Phone: | | | | | nephrec | Phone: | [phone] | | | | | 06/11, BMP | [phone] | Fax: | | | | | prior | Fax: | [phone] | | | | | Procedures | [phone] | | | | | | [place] [...] | | | | [place] | [address] | | | | | [address] | | | | | | [phone] | | | +--------+---------+ + + + [...] CMA - 07/17/2018 10:20 AM PSTPatient ID: aAron Latham is a 58 y. o. male with a chief complaint of No chief complaint on file. . Review of Systems Constitutional: Negative. HENT: Negative. Eyes: Negative. Respiratory: Negative. Cardiovascular: Negative. Gastrointestinal: Negative. Endocrine: Negative. Genitourinary: Negative. Musculoskeletal: Negative. Skin: Negative. Allergic/Immunologic: Negative. Neurological: Negative. Hematological: Negative. Psychiatric/Behavioral: Negative. Patrice Ag MD - 07/17/2018 10:20 AM PST [facility] OFFICE NOTE Primary Care Physician: Sarah [...] profoundly dehydrated and admitted I [facility] in [place]. Pathology report: FINAL DIAGNOSIS: A. Lymph nodes, [...] FLEXIBLE SIGMOIDOSCOPY; Surgeon: Mehul Bowles MD; Location: [facility] MAIN OR COLONOSCOPY 05/22/2017 FINGER SURGERY Right 1974 AMPUTATION 5th finger TONSILLECTOMY 1969 TOTAL NEPHRECTOMY Left 06/11/2018 Procedure: LEFT LAPAROSCOPIC NEPHRECTOMY WITH NODE DISSECTION AND LAPAROSCOPIC LYSIS OF AD HESIONS; Surgeon: Patrice Cross MD; Location: [facility] MAIN OR MEDICATIONS Current Outpatient Prescriptions [...] 07/17/2018 at 10:53 CC: Sarah Gallegos MD [address] [place] [address] documented in this encou nter Plan of Treatment +--------+---------+ + + + | Date | Type | Specialty | Care Team | Description | +--------+---------+ + + + | 03/17/ Office | Cardiology | Lorraine Clifton DO | | | 2020 | Visit | | [address] | | | | | | [place] | | | | | | [address] | | | | | | | | +--------+---------+ + + + documented as of this encounter Visit Diagnoses + + | Diagnosis | + + | 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
--- OUTSIDE RECORDS SUMMARY | ~2019-12-21 | XMS | Encounter Summary ---
Demographics + + + | Address | [address] | | | [place] [address] | + + + | Home Phone [...] [place] | | | | | [address] | | + + + + + Care Team Providers + +------+ + | Care Clinical Services Consultant Name | Role | Phone | [...] Rd | | | | | | [place], [place] | | | | | | [address] | | | | | | [phone] | | | | | | | | +--------+---------+ + + + documented as of this encounter Visit Diagnoses Not on filedocumented in this encounter"
--- OUTSIDE RECORDS SUMMARY | ~2019-12-21 | XMS | Encounter Summary ---
Demographics + + + | Address | [address] [address] | | | [place] [address] | + + + | Home Phone | | + + + | Preferred Language | Unknown | + + + | Marital Status | Single | + + + | Taoism Affiliation | 1077 | + + + [...] Providers + +------+ + | Care Community Health Nursing Director Name | Role | Phone | [...] [place] | | | | | [address] | [address] | | | | | [phone] | | | +--------+ + + + [...] [place] | | | | | | [address] | | | | | | | | +--------+---------+ + + + documented as of this encounter Visit Diagnoses Not on filedocumented in this encounter"
--- OUTSIDE RECORDS SUMMARY | ~2019-12-21 | XMS | Encounter Summary ---
Demographics + + + | Address | [address] | | | [place] [address] | + + + | Home Phone | | + + + | Preferred Language | Unknown | + + + | Marital Status | Single | + + + | Lutheran Affiliation | LDS | + + + | Race | White | + + + | Ethnic Group | Not or | + + + Author + + + | Author | [facility] | + + + | Organization | [facility] | + + + | Address | Unknown | + + + | Phone | Unavailable | + + + Support + + + + + | Name | Relationship | Address | Phone | + + + + + | Toby Latham | [place] | [address] | | | | | [place] | | | | | [address] | | + + + + + Care Team Providers + +------+ + | Care Tuber Machine Operator Name | Role | Phone [...] Pre-operative | | 2019 | cheduled | [facility] at | | evaluation | | | | [facility] | | | | | | [address] | | | | | | Mail Code: OC8PM | | | | | | [facility] | | | | | | and Healing, | | | | | | [address] | | | | | | [place], [place] | | | | | | [address] | | | | | | [phone] | | | +--------+ + + + [...] have not received them, contact Endoscopy at [phone]. Eating/Drinking Instructions: Follow instructions provided by [facility] Endoscopy. You should have received these instruction s by mail or email. If you have not received them, contact Endoscopy at [phone]. General Medications Instructions Oral iron: If you [...] /Eliquis, rivaroxaban/Xarelto, dabigatran/Pradaxa, or Plavix/Brilinta, your prescriber ([facility] doctor, [facility], anticoagulation clinic, ex.) should be the one [...] of your procedu re. Procedure check-in location: [facility] 2 Procedure Check in Time: [...] Uber/Lyft/bung driver does not count as the r [...] it is after office hours, call the [facility] prom burn off operator at [phone] and ask them to page the on-c [...] [address] | | | | | | [place], [place] | | | | | | [address] | | | | | | [phone] | | | | | | | | +--------+---------+ + + + documented as of this encounter Visit Diagnoses Not on filedocumented in this encounter
--- OUTSIDE RECORDS SUMMARY | ~2019-12-21 | XMS | Encounter Summary ---
Demographics + + + | Address | [address] | | | [place] [address] | + + + | Home Phone [...] Author + + + | Author | [facility] | + + + | Organization | [facility] | + + + | Address | Unknown | + + + | Phone | Unavailable | + + + Support + + + + + | Name | Relationship | Address | Phone | + + + + + | Toby Latham | [place] | [address] | | | | | [place] | | | | | [address] | | + + + + + Care Team Providers + +------+ + | Care Account Coordinator Name | Role | Phone | [...] + + | 07/01/ | Anesthesia | [facility] | Adolfo Ace, | | | 2018 | Event | [facility] [address] | [address] | | | | | [address] Mailcode: | [address] | | | | | [facility] | [place], [place] | | | | | Health and Healing, | [address] | | | | | [address] | [phone] | | | | | [place], [place] | | | | | | [address] | Radha Link CRNA | | | | | [phone] | [address] | | | | | | [address] | | | | | | [place], [place] | | | | | | [address] | | | | | | [phone] | | | | | | | | +--------+ + + + + Anesthesia Record + + + + + | Procedure Name | Responsible | Anesthesia Start | Anesthesia Stop Time | | | Anesthesiologist | Time | | + + + + + | COLONOSCOPY | Adolfo Aec MD | 07/01/19 1006 | 07/01/19 [address] | | | | | | [place], [place] | | | | | | [address] | | | | | | [phone] | | | | | | | [...]
--- OUTSIDE RECORDS SUMMARY | ~2019-12-21 | XMS | Encounter Summary ---
Demographics + + + | Address | [address] [address] | | | [place] [address] | + + + | Home Phone [...] Team Providers + +------+ + | Care Laser Beam Color Scanner Operator Name | Role | Phone | + +------+ + | Sarah Carroll MD | PCP | | + +------+ + Encounter Details +--------+ + + + + | Date | Type | Department | Care Team | Description | +--------+ + + + + | 01/19/ | Orders Only | [facility] | Jewel Ulloa MD | | | 2019 | | NEPHROLOGY [place] | [address] [place] | | | | | [address] [place] | [address] [place], [place] | | | | | [address] [place], [place] | [address] | | | | | [address] | | | | | | [phone] | | | +--------+ + + + [...] [place] | | | | | | [address] [...]
--- OUTSIDE RECORDS SUMMARY | ~2019-12-21 | XMS | Encounter Summary ---
Demographics + + + | Address | [address] [address] | | | [place] [address] | + + + | Home Phone [...] + + + | Author | [facility] | | | and [place] | + + + | Organization | [facility] [...] Team Providers + +------+ + | Care Customer Service Sales Consultant Name | Role | Phone [...] PHYSIATRY [address] | MD [address] | | | | | [address] | [place], [place] | | | | | [place] | [address] | | | | | [address] | | | | | | [phone] | | | +--------+ + + + [...] [place] | | | | | | [address] | | | | | | | | +--------+---------+ + + + documented as of this encounter Visit Diagnoses Not on filedocumented in this encounter"
--- OUTSIDE RECORDS SUMMARY | ~2019-12-21 | XMS | Encounter Summary ---
Demographics + + + | Address | [address] [address] | | | [place] [address] | + + + | Home Phone [...] Team Providers + +------+ + | Care Iron And Steel Work Supervisor Name | Role | Phone | + +------+ + | Sarah Carroll MD | PCP | | + +------+ + Encounter Details +--------+ + + + + | Date | Type | Department | Care Team | Description | +--------+ + + + + | 01/30/ | Telephone | [facility] | Patrice Cross MD | | | 2018 | | [address] | [address] | | | | | [address] | [address] | | | | | [place], [place] | [address] | | | | | [address] | | | | | | [phone] | | | +--------+ + + + [...] | | | | | [place] | | | | | | [address] | | | | | | | | +--------+---------+ + + + documented as of this encounter Visit Diagnoses Not on filedocumented in this encounter"
--- OUTSIDE RECORDS SUMMARY | ~2019-12-21 | XMS | Encounter Summary ---
Demographics + + + | Address | [address] | | | [place] [address] | + + + | Home Phone | | + + + | Preferred Language | Unknown | + + + | Marital Status | Single | + + + | Sabianism Affiliation | LDS | + + + | Race | White | + + + | Ethnic Group | Not or | + + + Author + + + | Author | [facility] | + + + | Organization | [facility] | + + + | Address | Unknown | + + + | Phone | Unavailable | + + + Support + + + + + | Name | Relationship | Address | Phone | + + + + + | Toby Latham | ANNA | [address] | | | | | [place] | | | | | [address] | | + + + + + Care Team Providers + +------+ + | Care Manager Strategy Name | Role | Phone | + [...] [address] | | | | | [place], [place] | [address] | | | | | [address] | [place], [place] | | | | | [phone] | [address] | | | | | | [phone] | | | | | | | [...] Rd | | | | | | [place], [place] | | | | | | [address] | | | | | | [phone] | | | | | | | | +--------+---------+ + + + documented as of this encounter Visit Diagnoses Not on filedocumented in this encounter"
--- OUTSIDE RECORDS SUMMARY | ~2019-12-21 | XMS | Encounter Summary ---
Demographics + + + | Address | [address] [address] | | | [place] [address] | + + + | Home Phone [...] Providers + +------+ + | Care Marketing Graphics Specialist Name | Role | Phone | + +------+ + | Sarah Carroll MD | PCP | | + +------+ + Encounter Details +--------+ + + + + | Date | Type | Department | Care Team | Description | +--------+ + + + + | 01/02/ | Orders Only | [facility] | Jewel Ulloa MD | | | 2019 | | NEPRHOLOGY [place] | [address] | | | | | [address] | [address] [place], [place] | | | | | [address] [place], [place] | [address] | | | | | [address] | | | | | | [phone] | | | +--------+ + + + [...] [place] | | | | | | [address] | | | | | | | [...] | | | LAB | | | [facility] | | | | | + [...]
--- OUTSIDE RECORDS SUMMARY | ~2019-12-21 | XMS | Encounter Summary ---
Demographics + + + | Address | [address] [address] | | | [place] [address] | + + + | Home Phone [...] + + + | Author | [facility] | | | and [place] | + + + | Organization | [facility] | | [...] Providers + +------+ + | Care Manager Bank Name | Role | Phone | + [...] | | | | low back | [address] | [address] | | | | | pain with | [place], | [place], [place] | | | | | bilateral | [place] [address] | [address] | | | | | sciatica | Phone: | Phone: | | | | | Bilateral | [phone] | [phone] | | | | | foot-drop | Fax: | Fax: | | | | | Numbness of | [phone] | [phone] | | | | | both lower [...] | bilateral | [address] | | | | n | low back | [address] | [place], | | | | | pain with | [place], | [place] [address] | | | | | bilateral | [place] [address] | Phone: | | | | | sciatica | Phone: | [phone] | | | | | Bilateral | [phone] | Fax: | | | | | foot-drop | Fax: | [phone] | | | | | Numbness of | [phone] | | | | | | both lower | | | | | | | extremities | | | | | | | Procedures | | | | | | | IA MOTOR | | | | | | | &/SENS / | | | | | | | NRV CNDJ | | | | | | | PRECONF | | | | | | | ELTRODE LIMB | | | | | | | IA NEEDLE | | | | | | | EMG EA | | | | | | | EXTREMITY | | | | | | | W/PARASPINL | | | | | | | AREA LIMITED | | | | | | | IA MOTOR | | | | | | | &/SENS - | | | | | | | NRV CNDJ | | | | | | | PRECONF | | | | | | | ELTRODE LIMB | | | | | | | IA OFFICE | | | | | | [...] Rehabilitatio | | [address] | [address] | | | | n | | [address] | [place], | | | | | | [place], | [place] [address] | | | | | | [place] [address] | Phone: | | | | | | Phone: | [phone] | | | | | | [phone] | Fax: | | | | | | Fax: | [phone] | | | | | | [phone] | | +--------+--------+ + + + + Encounter Details +--------+---------+ + + + | Date | Type | Department | Care Team | Description | +--------+---------+ + + + | 12/15/ | Office | [facility] | Riccardo Malhotra, | Bilateral foot-drop | | 2019 | Visit | PHYSIATRY [address] | MD [address] | (Primary Dx); | | | | [address] | [place] | Chronic bilateral | | | | [place] | [address] | low back pain with | | | | [address] | | bilateral sciatica; | | | | [phone] | | Meralgia | | | | [...] encounter Patient Instructions Patient Instructions Bianca Hernandez, Assistant Professor Sculpture - 12/15/2018 1:00 PM PDTX-rays have been [...] of chronic renal failure, stage 3 (moderate) ([facility]) 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
--- OUTSIDE RECORDS SUMMARY | ~2019-12-21 | XMS | Encounter Summary ---
Demographics + + + | Address | [address] [address] | | | [place] [address] | + + + | Home Phone [...] Team Providers + +------+ + | Care Airport Clerk Name | Role | Phone | [...] PHYSIATRY [address] | MD [address] | | | | | [address] | [place], [place] | | | | | [place], [place] | [address] | | | | | [address] | | | | | | [phone] | | | +--------+ + + + [...] [place] | | | | | | [id number] | | | | | | | | +--------+---------+ + + + documented as of this encounter Visit Diagnoses Not on filedocumented in this encounter"
--- OUTSIDE RECORDS SUMMARY | ~2019-12-21 | XMS | Encounter Summary ---
Demographics + + + | Address | [address] | | | [place] [address] | + + + | Home Phone | | + + + | Preferred Language | Unknown | + + + | Marital Status | Single | + + + | Alevism Affiliation | LDS | + + + | Race | White | + + + | Ethnic Group | Not or | + + + Author + + + | Author | [facility] | + + + | Organization | [facility] | + + + | Address | Unknown | + + + | Phone | Unavailable | + + + Support + + + + + | Name | Relationship | Address | Phone | + + + + + | Toby Latham | ANNA | [address] | | | | | [place] | | | | | [address] | | + + + + + Care Team Providers + +------+ + | Care Night Filler Name | Role | Phone | + [...] | ascending | [address] | [address] | | | | | colon | [address] | [place] [address] | | | | | Procedures | Rd | floor | | | | | CONSULT TO | [place], [place] | [place], [place] | | | | | GI PROCEDURE | [address] | [address] | | | | | UNIT: | Phone: | Phone: | | | | | COLONOSCOPY | [phone] | [phone] | | | | | [place] [facility] [facility] | Fax: | Fax: | | | | | [facility] | [phone] | [phone] | | | | | [place] | | | | | | [...] + + + + | 02/09/ | Ems Driver | [facility] | [address] | Adenomatous polyp of | | 2019 | | Center at [facility] 4th | MD Matt [address] | ascending colon | | | | Floor [address] | [address] | (Primary Dx) | | | | [address] | [place], [place] | | | | | Mailcode: CH6D | [address] | | | | | [address] [facility] | [phone] | | | | | [place], [place] | | | | | | [address] | | | | | | [phone] | | | +--------+ + + + [...] Rd | | | | | | [place], [place] | | | | | | [address] | | | | | | [phone] | | | | | | | | +--------+---------+ + + + documented as of this encounter Visit Diagnoses + + | Diagnosis | + + | Adenomatous polyp of ascending colon - Primary | + + documented in this encounter"
--- OUTSIDE RECORDS SUMMARY | ~2019-12-21 | XMS | Encounter Summary ---
Demographics + + + | Address | [address] [address] | | | [place] [address] | + + + | Home Phone | | + + + | Preferred Language | Unknown | + + + | Marital Status | Single | + + + | Worship Affiliation | 1077 | + + + [...] Providers + +------+ + | Care Community Outreach Worker Name | Role | Phone | [...] | | | | Peritoneal | | [address] Phone: | | | | | adhesion | | [phone] | | | | | Procedures | | Fax: | | | | | AL FREEING | | [phone] | | | | | BOWEL | | | | | | | ADHESION,ENT | | | | | | | EROLYSIS AL | | | | | | | [...] [address] | [place] [address] | | | | | [place] | [phone] | | | | | [address] | | | | | | [phone] | Leyla Lepe, | | | | | | MANUFACTURING ELECTRICIAN [address] | | | | | | [place] | | | | | | [id number] | | | | | | | | +--------+ + + + + Anesthesia Record + + + + + | Procedure Name | Responsible | Anesthesia Start | Anesthesia Stop Time | | | Anesthesiologist | Time | | + + + + + | LEFT LAPAROSCOPIC | Feliberto Beltran MD | 06/11/18 1312 | 06/11/18 1979 | | NEPHRECTOMY WITH | | | [...] +----+---+ + + | | 1 | Rodessa | | | | 3 | 43-degrees [...] +----+---+ + + | | 1 | Rodessa off | | | | 5 | [...] 06/12/18 0722 by | | cherelle | [id number]-grw-[id number] catheter system; | Myla Vega RN | [...] | | | procedure documentation); Mask | MANUFACTURING ELECTRICIAN | MANUFACTURING ELECTRICIAN | | | Ventilation: EZ w/OA; Airway [...] | Forearm; 18 gauge; 06/16/18; 1237 | MANUFACTURING ELECTRICIAN | | +--------+ + + + | [...] [place] | | | | | | [address] | | | | | | | [...] 06/11/2018 13:40 Indication: necessitating | | | physician/MANUFACTURING ELECTRICIAN skill Preparation: chlorhexidine/isopropyl alcohol | | | [...] 1:55 PM PDT Intravenous Line | | Qocjrbsuv83/31/2018 13:40Indication: necessitating physician/MANUFACTURING ELECTRICIAN skillPreparation: | | chlorhexidine/isopropyl alcoholpatient was: under [...] | |Electronically Signed by: Leyla Lepe CRNA [facility] date/time: 05/14 13:55 | + + Anesthesia [...] - 06/11/2018 1:52 PM PDT Arterial Line Pqvzehjzi19/31/2018 | | 13:30Indication: continuous blood pressure monitoringPrep [...] 1:51 PM PDT Anesthesia Airway | | Umweidhys38/31/2018 13:24Preprocedure check: patient identified, oxygen, airway | [...]
--- OUTSIDE RECORDS SUMMARY | ~2019-12-21 | XMS | Encounter Summary ---
Demographics + + + | Address | [address] | | | [place] [address] | + + + | Home Phone | | + + + | Preferred Language | Unknown | + + + | Marital Status | Single | + + + | Yarsanism Affiliation | LDS | + + + [...] [address] | | | | | [address] | | + + + + + Care Team Providers + +------+ + | Care Agricultural Agent Name | Role | Phone | [...] 07/06/ | Telephone | [facility] | [place], | Follow-up Plan | | 2019 | | [facility] [address] | MD [address] | (colonscopy f/u) | | | | [address] Mailcode: | [address] | | | | | [address] for | [place], [place] | | | | | Health and Healing, | [address] | | | | | [facility] | [phone] | | | | | [place], [place] | | | | | | [address] | | | | | | [phone] | | | +--------+ + + + [...] Rd | | | | | | [place], [place] | | | | | | [address] | | | | | | [phone] | | | | | | | | +--------+---------+ + + + documented as of this encounter Visit Diagnoses Not on filedocumented in this encounter"
--- OUTSIDE RECORDS SUMMARY | ~2019-12-21 | XMS | Encounter Summary ---
Demographics + + + | Address | [address] [address] | | | [place] [address] | + + + | Home Phone [...] Providers + +------+ + | Care Licensed Reactor Operator Name | Role | Phone | [...] PHYSIATRY [address] | MD [address] | | | | | [address] | [place], [place] | | | | | [place], [place] | [address] | | | | | [address] | | | | | | [phone] | | | +--------+ + + + [...] | | | | | | [address] [facility] | | | | | | [address] | | | | | | | | +--------+---------+ + + + documented as of this encounter Visit Diagnoses Not on filedocumented in this encounter"
--- OUTSIDE RECORDS SUMMARY | ~2019-12-21 | XMS | Encounter Summary ---
Demographics + + + | Address | [address] [address] | | | [place] [address] | + + + | Home Phone [...] Providers + +------+ + | Care Rn Triage Name | Role | Phone | + +------+ + | Sarah Carroll MD | PCP | | + +------+ + Encounter Details +--------+ + + + + | Date | Type | Department | Care Team | Description | +--------+ + + + + | 02/04/ | Orders Only | [facility] | Jewel Ulloa MD | | | 2019 | | NEPHROLOGY [place] | [address] | | | | | [address] | [address] [place], [place] | | | | | [address] [place], [place] | [address] | | | | | [address] | | | | | | [phone] | | | +--------+ + + + [...] [place] | | | | | | [address] | | | | | | | [...]
--- OUTSIDE RECORDS SUMMARY | ~2019-12-21 | XMS | Encounter Summary ---
Demographics + + + | Address | [address] [address] | | | [place] [address] | + + + | Home Phone [...] Providers + +------+ + | Care Clinical Engineer Name | Role | Phone | [...] | bilateral | [address] | | | | n | low back | [address] | [place], | | | | | pain with | [place], | [place] [address] | | | | | bilateral | [place] [address] | Phone: | | | | | sciatica | Phone: | [phone] | | | | | Bilateral | [phone] | Fax: | | | | | foot-drop | Fax: | [phone] | | | | | Numbness of | [phone] | | | | | | both lower | | | | | | | extremities | | | | | | | Procedures | | | | | | | WI MOTOR | | | | | | | &/SENS / | | | | | | | NRV CNDJ | | | | | | | PRECONF | | | | | | | ELTRODE LIMB | | | | | | | WI NEEDLE | | | | | | | EMG EA | | | | | | | EXTREMITY | | | | | | | W/PARASPINL | | | | | | | AREA LIMITED | | | | | | | WI MOTOR | | | | | | | &/SENS - | | | | | | | NRV CNDJ | | | | | | | PRECONF | | | | | | | ELTRODE LIMB | | | | | | | WI OFFICE | | | | | | [...] PHYSIATRY [address] | MD [address] | polyneuropathy | | | | [address] | [place] | (Primary Dx); | | | | [place] | [address] | Chronic bilateral | | | | [address] | | low back pain with | | | | [phone] | | bilateral sciatica; | | | [...] might be different fro m the original. [facility] Physical Medicine & Rehabilitation [address] [place] [address], [address] [place] [address] Test Date: 01/12/2019 Patient Name: Aaron Latham : 1960 Physician: Riccardo Malhotra MD () MR #: [id number] Sex: Male Referring Physician: Sarah Carroll HISTORY: [...] Aaron Latham, over half of [facility] h was spent formulating and discussing their [...]
--- OUTSIDE RECORDS SUMMARY | ~2019-12-21 | XMS | Encounter Summary ---
Demographics + + + | Address | [address] [address] | | | [place] [address] | + + + | Home Phone | | + + + | Preferred Language | Unknown | + + + | Marital Status | Single | + + + | Temple Affiliation | 1077 | + + + | Race | Unknown | + + + | Ethnic Group | Unknown | + + + Author + + + | Author | [facility] | | | and [place] | + + + | Organization | [facility] | | [...] Providers + +------+ + | Care Client Relations Representative Name | Role | Phone | [...] | | | | | atrial | EARTH AUGER OPERATOR [address] | [address] | | | | | fibrillation | [address] | [place] | | | | | (HCC) | [address] | [place], [place] | | | | | Chronic | [place] | [address] | | | | | combined | [address] | Phone: | | | | | systolic and | Phone: | [phone] | | | | | diastolic | [phone] | Fax: | | | | | congestive | Fax: | [phone] | | | | | heart | [phone] | | | | | | failure [...] Cardiology | combined | [address] | EARTH AUGER OPERATOR [address] | | | | | systolic | Ald[place] Liao | [place] | | | | | (congestive) | [place], | [place] | | | | | and | [place] [address] | [place] | | | | | diastolic | Phone: | [phone] Phone: | | | | | (congestive) | [phone] | [phone] | | | | | heart | Fax: | Fax: | | | | | failure | [phone] | [phone] | | | | | (HCC) 6 | | | | | | | month f/u | | | | | | | Procedures | | | | | | | [place] OFFICE | | | | | | [...] + + | 06/01/ | Office | [facility] | Ileana Henson | Paroxysmal atrial | | 2019 | Visit | CARDIOLOGY [place] | [address] | fibrillation (HCC) | | | | [address] | [place] | (Primary Dx); | | | | [address] | [place] [address] | Chronic combined | | | | [place] | [phone] | systolic and | | | | [address] | | diastolic congestive | | | | [phone] | | heart failure | | | [...] you an Echo to be done at [facility] I made changes to medications : [...] He is managed on Coumadin for his KMY0JS1 2 VASC score of 2 which is managed by the [facility] Coumadin clinic. He was hospitalized in July 2017 at [facility] for acute GI bleeding, where a [...] surgery 08/16/2017 by , colorectal surgeon in [place], with low anterior resection with open approach, did not require any Chemo or radiation, He also followed up Dr. Cross in [place], and had left nephrectomy 06/11/2018 for reji [...] 324 [facility], but has struggled to remain less than [...] he had a colonoscopy performed at [facility] last month, but needs to be repeated, as prep not effective enough. He also followed up with system specialist at [facility] about his abnormal nerve conduction with peripheral [...] be angiomyolipom a,,followed by Dr. Cross in [place] Denies hematuria. Denies history of benign prostatic [...] illicit drug use. Exercises sporadically . 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 Lives with his [...] for: TOTEPI CARDIAC PROCEDURES/IMAGING Last Cath: 02/06/2017 ([facility]) Separate ostia of the left anterior [...] inadequate TR jet. Pulmonic valve normal, trace MI. No p ericardial effusion. IVC 1.5-2.5 cm, [...] block. Bifascicular Block: Rate 5 8 bpm, MI 222 ms, QRS 156 ms, QTC 475 ms EK03/11: Sinus bradycardia with first-degree A-V block. Bi fascicular block. Rate 59 bpm, MI 238 ms, QRS 160 ms, QTC 481 ms, compared to EKG done in January first-degree A-V b lock has increased slightly,tracing personally reviewed by me EK08/01: Sinus rhythm with first-degree AV block. Left axis deviation and a right bundle branch block. Rate 65 bpm, MI 230 ms, QRS 162 ms, QTC 497 ms, when compared to EKG done in February 2017, MI interval has decreased slightly and QTC has increased ,tracing person ally reviewed by me EK10/30/2018: Sinus rhythm with first-degree AV block bifascicular block, old septal infa rct. Rate 66 bpm, MI 250 ms, QRS 156 ms, QTC 475 [...] with Dr. Lorraine Clifton as his primary spice blender in 6 months, but I will also [...] errors. Ethan ARRE[place]A [facility] Cardiology 06/01/2019 docum ented in this [...]
--- OUTSIDE RECORDS SUMMARY | ~2019-12-21 | XMS | Encounter Summary ---
Demographics + + + | Address | [address] | | | [place] [address] | + + + | Home Phone [...] [place] | | | | | [address] | | + + + + + Care Team Providers + +------+ + | Care Stock Control Supervisor Name | Role | Phone | [...] | | | | | | [place] | | | | | | | COLONOSCOPY, | | | | | | | FLEX, | | | | | | | W/BIOPSY [place] | | | | | | | | | | | | | | COLONOSCOPY, | | | | | | | YUNI URIBE BY | | | | | | | SNARE | | | | | | | TECHNIQUE | | | | | | | [place] | | | | | | | [...] | | | | | | [place] ANES LWR | | | | | | | INTST NDSC | | | | | | | NOS | | | +--------+--------+ + + + + Encounter Details +--------+ + + + + | Date | Type | Department | Care Team | Description | +--------+ + + + + | 07/01/ | Hospital | [facility] | [facility] | Procedural Unit | MD Charles [address] | | | | | ([facility] at [facility] [address] | | | | | [place] | [facility] [place] | | | | | Mailcode: [place] | [address] | | | | | [facility] and | [phone] | | | | | [facility], [address] | | | | | | [facility] [place] | | | | | | [address] | | | | | | [phone] | | | +--------+ + + + [...] Call the endoscopy department toll free ext. [phone] or After business hours or on weekends and holidays call the Hospital Grapple Skidder Operator toll free [phone] Ext. [phone] or and have the GI doctor extracorporeal circulation specialist paged. The provider who performed your procedure: [...] 10:15 AM PST PRE PROCEDURE NOTE: MR# [id number] Subjective: Aaron Latham is a 59 y.o. [...] | | 2019 | Visit | | [address] | | | | | | [address] | | | | | | [place], [place] | | | | | | [address] | | | | | | [phone] | | | | | | | [...] PathologistPathology, | | | | | | [facility] | | | | | | [facility] electronic | | | | | | [...] | [facility]ENTER FOR | | | | [facility]) and medical record | | HEALTH + | | | | number [id number]. | | HEALING | | | | [...] | + + + + + | [facility] | [address] | [place] [address] | | | PATHOLOGY | [address] | | | + + + + + | [facility] | [address] | [place] [address] | | | SERVICES, [place] [facility] | | | | | HEALTH + HEALING | | | | + + + + + COLONOSCOPY (07/01/2019 10:08 AM PST) + + | Specimen | + + | | + + + + + | Narrative | Performed At | + + + | MRN: | [facility] | | [id number] Date: 07/01/2019Patient Name: Aaron Justin #: | ENDOSCOPY | | [id number] of : 1960SN: [id number] Type: | | | AmbulatoryRoom: Endo 5Procedure: | | | ColonoscopyIndications: Therapeutic procedure for known | | | colon polypPatient Profile: This is a 59 year old male. Refer to | | | note in patient chart for | | | documentation of history and physical.Providers: CHARLES | | | MD PEDRO (Doctor), CATARINA SOLIMAN RN | | | (Nurse), NGHIA YBARRA (Clerk Of Court)Referring MD: CHARLES | | | MASON VASQUEZequesting [...] the procedure. The Olympus | | | [id number] Colonoscope #[id number] was introduced | | | through the [...] | | any questions, please contact the cold mill operator. | | | - Clear liquid diet [...]
--- OUTSIDE RECORDS SUMMARY | ~2019-12-21 | XMS | Clinical Summary ---
Demographics + + + | Address | [address] | | | [place] [address] | + + + | Home Phone [...] + + + | Author | [facility] | + + + | Organization | [facility] | + + + | Address | Unknown | + + + | Phone | Unavailable | + + + Support + + + + + | Name | Relationship | Address | Phone | + + + + + | Toby Latham | ECON | [address] [address] | | | | | [place] | | | | | [address] | | + + + + + Care Team Providers + +------+ + | Care Territory Sales Professional Name | Role | Phone | + +------+ + | Sarah Carroll MD | PCP | | + +------+ + Source Comments MACO is fully live on both [facility] Ambulatory and [facility] InPatient.[facility] Allergies No Known Allergies Medications + + [...] | | 2019 | Visit | | [address] | | | | | | [address] | | | | | | [place], [place] | | | | | | [address] | | | | | | [phone] | | | | | | | [...] AFFINI | | 20-Pre | 4 | [address] | | | | [place] | | sent | | [place], | | | | | | | | [place] [address] | | +-------+--------+ +--------+ + +------+ + [...] renetta | | | 1 (Home) | [address] | + +--------+ +--------+ + + Advance [...]
--- OUTSIDE RECORDS SUMMARY | ~2019-12-21 | XMS | Encounter Summary ---
Demographics + + + | Address | [address] | | | [place] [address] | + + + | Home Phone [...] [place] | | | | | [address] | | + + + + + Care Team Providers + +------+ + | Care Aerial Installer Name | Role | Phone | [...] | | | | | colon | [facility] | [facility] | | | | | Procedures | Rd | Rd | | | | | CONSULT TO | [place], [place] | [place], [place] | | | | | GASTROENTERO | [address] | [address] | | | | | LOGY | Phone: | Phone: | | | | | CONSULT TO | [phone] | [phone] | | | | | GASTROENTERO | Fax: | Fax: | | | | | LOGY | [phone] | [phone] | + +--------+ + + + + [...] | | colon | [address] | [place] | | | | | Procedures | [place], [place] | [place], [address] | | | | | CONSULT TO | [address] | floor | | | | | GI PROCEDURE | Phone: | [place], [place] | | | | | UNIT: | [phone] | [address] | | | | | COLONOSCOPY | Fax: | Phone: | | | | | | [phone] | [phone] | | | | | | | Fax: | | | | | | | [phone] | + +--------+ + + + + [...] adenoma of | MD Tala | [address] | | | | | colon | [address] | [address] | | | | | | [address] | Mailcode: | | | | | | [place] | [facility] | | | | | | [place] [address] | [facility] and | | | | | | Phone: | Healing, | | | | | | [phone] | [address] | | | | | | Fax: | [place], [place] | | | | | | [phone] | [address] | | | | | | | Phone: | | | | | | | [phone] | | | | | | | Fax: | | | | | | | [phone] | +--------+--------+ + + + + Encounter Details +--------+---------+ + + + | Date | Type | Department | Care Team | Description | +--------+---------+ + + + | 02/05/ | Office | Digestive Health | Tsikitis, | Villous adenoma of | | 2019 | Visit | [place] at [facility] [address] | [address] | colon (Primary Dx) | | | | [address] | [address] | | | | | Mailcode: Center | [facility] [place] | | | | | for Health and | [address] | | | | | Healing, [address] | [phone] | | | | | [place], [place] | | | | | | [address] | | | | | | [phone] | | | +--------+---------+ + + + [...] history per Note of Dr. Carroll from [facility]: 11/18/18: Seen Dr. Cohen for colonoscopy consult and scheduled for procedure at the hospital given his multiple comorbidities. 12/11/18: Onset of right lower back pain after exiting his truck awkwardly. Seen at ED of [facility] for scheduled colonoscopy. Incidentally also seen [...] Widely patent coloproctectomy. 01/05/19: Dr. Cohen at [facility] and recommended referral to [facility] for surgical ma nagement with consumer insights specialist and tongue and groove machine feeder for tubular adenoma of cecum with underlying CO PD and CHF. 01/08/19: follow up with Dr. Carroll and referred to GI Surgery Dr. Thompson at [facility] REVIEW OF SYSTEMS: As per HPI, [...] Follow up with me LEONARDA Mcgraw, MS3 [facility], [employer] Padilla Ko MD [...] 2019 | Visit | | [address] [facility] | | | | | | [address] | | | | | | [place], [place] | | | | | | [address] | | | | | | [phone] | | | | | | | | +--------+---------+ + + + documented as of this encounter Visit Diagnoses + + | Diagnosis | + + | Villous adenoma of colon - Primary Benign neoplasm of colon | + + documented in this encounter
--- OUTSIDE RECORDS SUMMARY | ~2019-12-21 | XMS | Encounter Summary ---
Demographics + + + | Address | [address] | | | [place] [address] | + + + | Home Phone [...] [place] | | | | | [address] | | + + + + + Care Team Providers + +------+ + | Care Concrete Mixing Plant Laborer Name | Role | Phone | [...] Rd | | | | | | [place], [place] | | | | | | [address] | | | | | | [phone] | | | | | | | | +--------+---------+ + + + documented as of this encounter Visit Diagnoses Not on filedocumented in this encounter"
--- OUTSIDE RECORDS SUMMARY | ~2019-12-21 | XMS | Encounter Summary ---
Demographics + + + | Address | [address] [address] | | | [place] [address] | + + + | Home Phone [...] Team Providers + +------+ + | Care Wind Technician Name | Role | Phone | [...] | | | | Malignant | | [address] Phone: | | | | | neoplasm of | | [phone] | | | | | sigmoid | | Fax: | | | | | colon (HCC) | | [phone] | | | | | [C18.7] | | | | | | | Procedures | | | | | | | [place] PART | | | | | | [...] | | | | [place] | [address] | | | | | [address] | | | | | | [phone] | Gregorio Lopes, | | | | [...] +----+---+ + + | | 1 | [place] off | | | | 3 | [...] | | 1 | | given to SPINDLE SETTER, remedicated for pain and lidocaine infusion | [...] attempt by | | | | | MANAGER OF FINANCIAL student); Airway Type: | | | | [...] | Cathet | Smallest Catheter, Perineum | NehaDelmyBarry | | | er | cleaned, Second [...] | | | | | [address] [place], [place] | | | | | | [address] | | | | | | | [...] | + + + | Gregorio Lopes MANAGER OF FINANCIAL Student 08/16/2017 12:19 Anesthesia | | | [...] glottis)Other equipment: styletteAttempts: 2 (first attempt by MANAGER OF FINANCIAL | | student)Airway type: endotrachealSize: 8Cuffed: cuffedRoute, [...]
--- OUTSIDE RECORDS SUMMARY | ~2019-12-21 | XMS | Encounter Summary ---
Demographics + + + | Address | [address] [address] | | | [place] [address] | + + + | Home Phone | | + + + | Preferred Language | Unknown | + + + | Marital Status | Single | + + + | Episcopalian Affiliation | 1077 | + + + | Race | Unknown | + + + | Ethnic Group | Unknown | + + + Author + + + | Author | [facility] | | | and [place] | + + + | Organization | [facility] | | [...] Team Providers + +------+ + | Care Airbrush Artist Name | Role | Phone | + +------+ + | Sarah Carroll MD | PCP | | + +------+ + Encounter Details +--------+---------+ + + + | Date | Type | Department | Care Team | Description | +--------+---------+ + + + | 06/15/ | Office | [facility] | Jewel Ulloa MD | Chronic kidney | | 2019 | Visit | NEPHROLOGY [place] | [address] | disease, stage 3 | | | | [address] | [address] [place], [place] | (HCC) (Primary Dx); | | | | [address] | [address] | Anemia of chronic | | | | [place], [place] | | renal failure, stage | | | | [address] | | 3 (moderate) ([facility]); | | | | [phone] | | Persistent | | | | [...] | | | 59.9 in adult ([facility]); | | | | | | [...] RFP, CBC, uric acid, iPTH, Urine total lneyytg-yo-ivsrpyakue ratio before he comes back in 6 [...] RFP, CBC, uric acid, iPTH, Urine total iozylng-rd-nkjoruppcd ratio before he comes back in 6 [...] concerns. Truly yours, Jewel Ulloa MD FACP [facility] documented in this enco unter Plan [...] [place] | | | | | | [id number] | | | | | | | [...] (BMI) of 50.0 to 59.9 in adult ([facility]) | + + | Essential hypertension with goal blood pressure less than 130/80 | + + | Bilateral leg edema Edema | + + | Hyperuricemia Other abnormal blood chemistry | + + documented in this encounter
--- OUTSIDE RECORDS SUMMARY | ~2019-12-21 | XMS | Encounter Summary ---
Demographics + + + | Address | [address] [address] | | | [place] [address] | + + + | Home Phone [...] Team Providers + +------+ + | Care Assistant Program Manager Name | Role | Phone | [...] PHYSIATRY [address] | MD [address] | | | | | [address] | [place], [place] | | | | | [place], [place] | [address] | | | | | [address] | | | | | | [phone] | | | +--------+ + + + [...] [place] | | | | | | [address] | | | | | | | | +--------+---------+ + + + documented as of this encounter Visit Diagnoses Not on filedocumented in this encounter"
--- OUTSIDE RECORDS SUMMARY | ~2019-12-21 | XMS | Encounter Summary ---
Demographics + + + | Address | [address] [address] | | | [place] [address] | + + + | Home Phone [...] Team Providers + +------+ + | Care Chairman Ceo Name | Role | Phone | + [...] 2019 | | [address] | Pants [employer]er [employer] | (antinuclear | | | | [place] | | antibody); Pain in | | | | [address] | | joint, multiple | | | | [phone] | | sites | +--------+ + + [...] [place] | | | | | | [address] | | | | | | | [...] - 1.030 | REFERENCE | | | [place], | | | LAB | | | [...] REFERENCE | | | | performed at [facility];[address] | | LAB | | | | [place] | | [facility] | | | | [address];[place] [address] | | LABORATORY | | + + + + + + + + | Specimen | + + | Urine | + + + + + + + | Performing | Address | City/State/Zipcode | Phone Number | | Organization | | | | + + + + + | REFERENCE LAB | [address] [facility] | [place] | [phone] | | [facility] | Blvd. | [address] | | | LABORATORY | | | | + + + + + | REFERENCE LAB | [address] [place] [address] | [place] | | | [facility] | Blvd. | [address] | | | LABORATORY | | | [...] LAB | | | | performed at [facility];[address] | | [facility] | | | | [place] | | LABORATORY | | | | Blvd;[place] [address] | | | | | | | | | | + + + + + + + + | Specimen | + + | | + + + + + + + | Performing | Address | City/State/Zipcode | Phone Number | | Organization | | | | + + + + + | REFERENCE LAB | [address] [place] [address] | [place] | [phone] | | [facility] | Blvd. | [address] | | | LABORATORY | | | | + + + + + | REFERENCE LAB | [address] [place] [address] | [place], [place] | | | [facility] | Blvd. | [address] | | | LABORATORY | | | [...] | | | urine | performed at [facility];[address] | | [facility] | | | | [facility] | | LABORATORY | | | | Blvd;[place] [address] | | | | | | | | | | + + + + + + + + | Specimen | + + | | + + + + + + + | Performing | Address | City/State/Zipcode | Phone Number | | Organization | | | | + + + + + | REFERENCE LAB | [address] [place] [address] | [place], [place] | [phone] | | [facility] | Blvd. | [address] | | | LABORATORY | | | | + + + + + | REFERENCE LAB | [address] [place] [address] | [place], [place] | | | [facility] | Blvd. | [address] | | | LABORATORY | | | [...] | | | RATIO,URINE | performed at [facility];[address] | | LAB | | | | [place] | | [facility] | | | | Blvd;[place] [address] | | LABORATORY | | + + + + + + + + | Specimen | + + | Urine | + + + + + + + | Performing | Address | City/State/Zipcode | Phone Number | | Organization | | | | + + + + + | REFERENCE LAB | [address] [place] [address] | [place], [place] | [phone] | | [facility] | Blvd. | [address] | | | LABORATORY | | | | + + + + + | REFERENCE LAB | [address] [place] [address] | [place] | | | [facility] | Blvd. | [address] | | | LABORATORY | | | [...] REFERENCE | | | | performed at [facility];[address] | | LAB | | | | [place] | | [facility] | | | | Bl[address];[place] [address] | | LABORATORY | | + + + + + + + + | Specimen | + + | Blood | + + + + + + + | Performing | Address | City/State/Zipcode | Phone Number | | Organization | | | | + + + + + | REFERENCE LAB | [address] [facility] | [place] | [phone] | | [facility] | Blvd. | [address] | | | LABORATORY | | | | + + + + + | REFERENCE LAB | [address] | [place] | | | [facility] | Blvd. | [address] | | | LABORATORY | | | [...] | | | Absolute | performed at [facility];[address] | K/uL | LAB | | | | [place] | | [facility] | | | | Blvd;[place] [address] | | LABORATORY | | + + + + + + + + | Specimen | + + | Blood | + + + + + + + | Performing | Address | City/State/Zipcode | Phone Number | | Organization | | | | + + + + + | REFERENCE LAB | [address] [facility] | [place], [place] | [phone] | | [facility] | Blvd. | [address] | | | LABORATORY | | | | + + + + + | REFERENCE LAB | [address] [facility] | [place] | | | [facility] | Blvd. | [address] | | | LABORATORY | | | [...] | | | | | | MDRD IDNY traceable | | | | | | equation.Testing | | | | | | performed at [facility];[address] | | | | | | [facility] | | | | | | [facility];[place] [address] | | | | | | | | | | + + + + + + + + | Specimen | + + | Blood | + + + + + + + | Performing | Address | City/State/Zipcode | Phone Number | | Organization | | | | + + + + + | REFERENCE LAB | [address] [place] [address] | [place], [place] | [phone] | | [facility] | Blvd. | [address] | | | LABORATORY | | | | + + + + + | REFERENCE LAB | [address] [place] [address] | [place] | | | [facility] | Blvd. | [address] | | | LABORATORY | | | [...] REFERENCE | | | | performed at [facility];[address] | | LAB | | | | [place] | | [facility] | | | | Blvd;[place] [address] | | LABORATORY | | + + + + + + + + | Specimen | + + | Blood | + + + + + + + | Performing | Address | City/State/Zipcode | Phone Number | | Organization | | | | + + + + + | REFERENCE LAB | [facility] | [place] | [phone] | | [facility] | Blvd. | [address] | | | LABORATORY | | | | + + + + + | REFERENCE LAB | [facility] | [place] | | | [facility] | Blvd. | [address] | | | LABORATORY | | | [...] REFERENCE | | | | performed at [facility];[address] | | LAB | | | | [place] | | [facility] | | | | Blvd;[place] [address] | | LABORATORY | | + + + + + + + + | Specimen | + + | Blood | + + + + + + + | Performing | Address | City/State/Zipcode | Phone Number | | Organization | | | | + + + + + | REFERENCE LAB | [address] [facility] | [place] | [phone] | | [facility] | Blvd. | [address] | | | LABORATORY | | | | + + + + + | REFERENCE LAB | [address] [facility] | [place] | | | [facility] | Blvd. | [address] | | | LABORATORY | | | [...] | | | | | performed at [facility], [address] | | | | | | [facility] | | | | | | [place] [address] | | | | + + + + + + + + | Specimen | + + | Blood | + + + + + + + | Performing | Address | City/State/Zipcode | Phone Number | | Organization | | | | + + + + + | REFERENCE LAB | [address] | [place] | [phone] | | [facility] | Blvd. | [address] | | | LABORATORY | | | | + + + + + | REFERENCE LAB | [address] [facility] | [place] | | | [facility] | Blvd. | [address] | | | LABORATORY | | | [...] [place] | | | | | | [address] | | | | + + + + + + + + | Specimen | + + | Blood | + + + + + + + | Performing | Address | City/State/Zipcode | Phone Number | | Organization | | | | + + + + + | REFERENCE LAB | [address] [place] [address] | [place], [place] | [phone] | | [facility] | Blvd. | [address] | | | LABORATORY | | | | + + + + + | REFERENCE LAB | [address] [place] [address] | [place] | | | [facility] | Blvd. | [address] | | | LABORATORY | | | [...] criterion | | | | | | ([employer] | | | | | [...] | | | | | validated by [employer] | | | | | | [employer] This | | | | | [...] non-orderable. | | | | | | [facility] [id number] | | | | | | dsDNA Curt painter | | | | | | IFA. For further | | | | | | information, please | | | | | | contact your local | | | | | | [facility] | | | | | | Roof Tile Layer.Testing | | | | | | performed at [employer] | | | | | | [place], 10 | | | | | | [facility], [facility] | | | | | | [address] [place] [address] | | | | | | [phone]. | | | | + + + + + + + + | Specimen | + + | Blood | + + + + + + + | Performing | Address | City/State/Zipcode | Phone Number | | Organization | | | | + + + + + | REFERENCE LAB | [address] [facility] | [place] | [phone] | | [facility] | Bl[address]. | [address] | | | LABORATORY | | | | + + + + + | REFERENCE LAB | [address] [facility] | [place], [place] | | | [facility] | Blvd. | [address] | | | LABORATORY | | | [...] | | | COMPLEMENT | performed at [facility];[address] | | LAB | | | | [place] | | [facility] | | | | Blvd;[place] [address] | | LABORATORY | | + + + + + + + + | Specimen | + + | Blood | + + + + + + + | Performing | Address | City/State/Zipcode | Phone Number | | Organization | | | | + + + + + | REFERENCE LAB | [address] [facility] | [place] | [phone] | | [facility] | Blvd. | [address] | | | LABORATORY | | | | + + + + + | REFERENCE LAB | [address] [facility] | [place] | | | [facility] | Blvd. | [address] | | | LABORATORY | | | [...] | | | Qual | performed at [facility], [address] | | LAB | | | | [address] [facility] | | [place] | | | | [place] [address] | | LABORATORY | | + + [...] | | | | | with both ND-3 and | | | | | | [...] | | 3 Antibody | performed by [employer], | | LAB | | | | [address], | | [facility] | | | | [facility] [address] | | LABORATORY | | + + + + + + + + | Specimen | + + | Blood | + + + + + + + | Performing | Address | City/State/Zipcode | Phone Number | | Organization | | | | + + + + + | REFERENCE LAB | [address] [place] [address] | [place], [place] | [phone] | | [facility] | Blvd. | [address] | | | LABORATORY | | | | + + + + + | REFERENCE LAB | [address] [place] [address] | [place], [place] | | | [facility] | Blvd. | [address] | | | LABORATORY | | | | + + + + + documented in this encounter Visit Diagnoses + + | Diagnosis | + + | Positive NICKIE (antinuclear antibody) Other and unspecified nonspecific immunological | | findings | + + | Pain in joint, multiple sites | + + documented in this encounter"
--- OUTSIDE RECORDS SUMMARY | ~2019-12-21 | XMS | Encounter Summary ---
Demographics + + + | Address | [address] [address] | | | [place] [address] | + + + | Home Phone [...] + + | Author | [facility] | | | and [place] | + + + | Organization | [facility] | | [...] Team Providers + +------+ + | Care Extractor Operator Helper Name | Role | Phone [...] PHYSIATRY [address] | MD [address] | | | | | [address] | [place], [place] | | | | | [place] | [address] | | | | | [address] | | | | | | [phone] | | | +--------+ + + + [...] | | | | | | [facility] [place] | | | | | | [address] | | | | | | | | +--------+---------+ + + + documented as of this encounter Visit Diagnoses Not on filedocumented in this encounter"
--- OUTSIDE RECORDS SUMMARY | ~2019-12-21 | XMS | Encounter Summary ---
Demographics + + + | Address | [address] | | | [place] [address] | + + + | Home Phone [...] [place] | | | | | [address] | | + + + + + Care Team Providers + +------+ + | Care Ramp Attendant Name | Role | Phone | + +------+ + | Sarah Carroll MD | PCP | | + +------+ + Encounter Details +--------+ + + + + | Date | Type | Department | Care Team | Description | +--------+ + + + + | 02/09/ | Transcribe | [facility] | Transcribe | | | 2019 | Orders | [facility] [address] | Encounter, Provider, | | | | | Nima Grijalva Mailcode: | [address] | | | | | [facility] | [place] [address] | | | | | Health and Healing, | | | | | | [address] | | | | | | [place], [place] | | | | | | [address] | | | | | | [phone] | | | +--------+ + + + [...] 01/20/ | Office | Orthopedics | Richard Hravey, | | | 2019 | Visit | | [address] | | | | | | [address] | | | | | | [place], [place] | | | | | | [address] | | | | | | [phone] | | | | | | | [...] + | MRN: | [facility] | | [id number] Date: 04/14/2019Patient Name: Aaron Justin #: | ENDOSCOPY | | [id number] of : 1960SN: [id number] Type: | | | AmbulatoryRoom: Endo 5Procedure: [...] DUTTA, XIOMARA | | | (Nurse), GENEVA FLROES, RN (Nurse), NGHIA YBARRA | | | (Chain Testing Machine Operator), PADMAJA ROSS | | | (Chain Testing Machine Operator)Referring MD: JACK TINOCO JR, | | | [...] the procedure. The Olympus | | | [id number] Colonoscope #[id number] was introduced | | | through the [...] questions, please contact the | | | rice farmer. - Stop | | | anticoagulation (coumadin) [...]
--- OUTSIDE RECORDS SUMMARY | ~2019-12-21 | XMS | Encounter Summary ---
Demographics + + + | Address | [address] | | | [place] [address] | + + + | Home Phone [...] [place] | | | | | [address] | | + + + + + Care Team Providers + +------+ + | Care Supervisor Tellers Name | Role | Phone | + +------+ + PCP | Unavailable | + +------+ + Encounter Details +--------+ + + + + | Date | Type | Department | Care Team | Description | +--------+ + + + + | 01/14/ | Abstract | [facility] | Clinic, Surgery | | | 2019 | | [facility] [address] | | | | | | [address] | | | | | | Mailcode: [place] | | | | | | [facility] | | | | | | Healing, [address] | | | | | | [facility] [place] | | | | | | [address] | | | | | | [phone] | | | +--------+ + + + [...] | | 2019 | Visit | | [address] | | | | | | [address] | | | | | | [place], [place] | | | | | | [address] | | | | | | [phone] | | | | | | | | +--------+---------+ + + + documented as of this encounter Visit Diagnoses Not on filedocumented in this encounter"
--- OUTSIDE RECORDS SUMMARY | ~2019-12-21 | XMS | Encounter Summary ---
Demographics + + + | Address | [address] [address] | | | [place] [address] | + + + | Home Phone | | + + + | Preferred Language | Unknown | + + + | Marital Status | Single | + + + | Shinto Affiliation | 1077 | + + + | Race | Unknown | + + + | Ethnic Group | Unknown | + + + Author + + + | Author | [facility] | | | and [place] | + + + | Organization | [facility] | [...] Team Providers + +------+ + | Care Cup Setter Lockstitch Name | Role | Phone | + [...] | PHYSIATRY [address] | [address] | | | | | [address] | [place] | | | | | [place] | [place] [address] | | | | | [address] | | | | | | [phone] | | | +--------+ + + + [...] [place] | | | | | | [address] | | | | | | | | +--------+---------+ + + + documented as of this encounter Visit Diagnoses Not on filedocumented in this encounter"
--- OUTSIDE RECORDS SUMMARY | ~2019-12-21 | XMS | Encounter Summary ---
Demographics + + + | Address | [address] [address] | | | [place] [address] | + + + | Home Phone | | + + + | Preferred Language | Unknown | + + + | Marital Status | Single | + + + | Presybeterian Affiliation | 1077 | + + + [...] Team Providers + +------+ + | Care Grease Maker Head Name | Role | Phone | + +------+ + | Sarah Carroll MD | PCP | | + +------+ + Encounter Details +--------+ + + + + | Date | Type | Department | Care Team | Description | +--------+ + + + + | 03/05/ | Orders Only | [facility] | Provider, | Mixed | | 2019 | | SYSTEM GENERIC OP | MD [address] | hyperlipidemia; | | | | CONVERSION [address] | [address] | Essential (primary) | | | | [address] [place], [place] | [place] [address] | hypertension; | | | | [address] | | Chronic kidney | | | | [phone] | | disease, stage III | | [...] | | | | | [place] | | | | | | [address] | | | | | | | [...] | | | | | | (moderate) ([facility]) | | | | | | Chronic kidney | | | | | | disease, stage III | | | | | | (moderate) ([facility]) | | + +------+--------+ + + | CBC with | Lab | Routin | Chronic kidney | Expected: | | Differential | | e | disease, stage III | 02/23/2019, Expires: | | | | | (moderate) ([facility]) | 02/10/2020 | | | [...] Expires: | | | | | (moderate) ([facility]) | 02/10/2020 | | | [...] Expires: | | | | | (moderate) ([facility]) | 02/10/2020 | | | [...] Expires: | | | | | (moderate) ([facility]) | 02/10/2020 | | | [...] Expires: | | | | | (moderate) ([facility]) | 02/10/2020 | | | [...] Expires: | | | | | (moderate) ([facility]) | 02/10/2020 | | | [...]
--- OUTSIDE RECORDS SUMMARY | ~2019-12-21 | XMS | Clinical Summary ---
Demographics + + + | Address | [address] | | | [place] [address] | + + + | Home Phone [...] + +------+ + | Care Real Estate Clerk Name | Role | Phone | [...] Cath: | | naLast Echo, 02/16/2016 (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; Anemia | | | | | | of chronic renal | | | | | | failure, stage 3 | | | | | | (moderate) ([facility]); | | | | | | Persistent | | | | | | proteinuria | +--------+ + + + + | 12/10/ | Documentati | Nephrology | Diane Nolen Results (12/10/19) | | 2020 | on | | [place]o [place] | | | | | | Foaming Machine Operator | | +--------+ + + + + [...] [place] | | | | | | [address] | | | | | | | [...] + +------+ | PREMERA | PREMER | [id number] | 08/12/19 | [phone] | | PPO | | | A | 3 | 17-Pre | 0 | | | | | PREFER | | sent | | | | | | RED | | | | | | +---------+--------+ +--------+ + +------+ | MODA | MODA | [id number] | 08/12/19 | [phone] | [address] | PPO | | | AFFINI | | 20-Pre | 9 | [address] | | | | [place] | | sent | | [place], | | | | [place]NER | | | | [place] [address] | | | | STONE | | | | | | | | EPO | | | | | | +---------+--------+ +--------+ + +------+ | MODA | MODA | [id number] | 08/12/19 | [phone] | [address] | PPO | | | OEBB | | 20-Pre | 9 | [address] | | | | [place] | | sent | | [place], | | | | [place] | | | | [place] [address] | | +---------+--------+ +--------+ + +------+ + [...] | | | 1 (Home) | [place] [address] | + +--------+ +--------+ + + | Aaron Latham | Person | Self | [birth year] | [address] | | | al/Fam | | 1 | [phone] | [address] [place], | | | [place] | | | 1 (Home) | [place] [address] | + +--------+ +--------+ + + | Aaron Latham | Person | Self | [birth year] | [address] | | | al/Fam | | 1960 | [phone] | [address] [place], | | | [place] | | | 1 (Home) | [place] [address] | + +--------+ +--------+ + + Advance Directives + + + + + | Type | Date Recorded | Patient | Explanation | | | | Forming Department End Finder | | + + + + + | Power of | | | | | Hearing Aid Fitter | | | | + + + [...]
--- OUTSIDE RECORDS SUMMARY | ~2019-12-21 | XMS | Encounter Summary ---
Demographics + + + | Address | [address] [address] | | | [place] [address] | + + + | Home Phone [...] Team Providers + +------+ + | Care Housekeeping Manager Name | Role | Phone | + +------+ + | Sarah Carroll MD | PCP | | + +------+ + Encounter Details +--------+ + + + + | Date | Type | Department | Care Team | Description | +--------+ + + + + | 02/04/ | Orders Only | [facility] | Conversion | | | 2019 | | NEPHROLOGY [place] | Transaction, | | | | | [address] | Provider Unknown | | | | | [address] [place], [place] | [phone] | | | | | [address] | (Fax) | | | | | [phone] | | | +--------+ + + + [...] | | | | | [place], [place] | | | | | | [address] | | | | | | | [...]
--- OUTSIDE RECORDS SUMMARY | ~2019-12-21 | XMS | Encounter Summary ---
Demographics + + + | Address | [address] [address] | | | [place] [address] | + + + | Home Phone [...] + + + | Author | [facility] | | | and [place] | + + + | Organization | [facility] | | | [...] Team Providers + +------+ + | Care Educational Guidance Counselor Name | Role | Phone | + +------+ + | Sarah Carroll MD | PCP | | + +------+ + Encounter Details +--------+ + + + + | Date | Type | Department | Care Team | Description | +--------+ + + + + | 07/28/ | Orders Only | [facility] | Jewel Ulloa MD | | | 2018 | | NEPHROLOGY [place] | [address] [place] | | | | | [address] [place] | [address] [place], [place] | | | | | [address] [place], [place] | [address] | | | | | [address] | | | | | | [phone] | | | +--------+ + + + [...] | | | | | [place] | | | | | | [address] | | | | | | | [...]
--- OUTSIDE RECORDS SUMMARY | ~2019-12-21 | XMS | Encounter Summary ---
Demographics + + + | Address | [address] [address] | | | [place] [address] | + + + | Home Phone [...] Team Providers + +------+ + | Care Cutting Inspector Name | Role | Phone | [...] | | | | Peritoneal | | [address] Phone: | | | | | adhesion | | [phone] | | | | | Procedures | | Fax: | | | | | CA FREEING | | [phone] | | | | | BOWEL | | | | | | | ADHESION,ENT | | | | | | | EROLYSIS CA | | | | | | | [...] | | | | [place] | [address] | LAPAROSCOPIC LYSIS | | | | [address] | | OF ADHESIONS | | | | [phone] | | | +--------+---------+ + + + [...] might be different from t he original. [facility] UROLOGY DISCHARGE SUMMARY Patient Name: Lily [...] COUMADIN Discontinued Medications [place] Follow-Up: 1. [facility] in 1 week. Please call [phone] during business hours to set up your urology follow up appointm ent. Electronically Signed by: Patrice Cross MD, 06/16/2018 7:42 [facility] documented in this encou nter Discharge Instructions Instructions Teresita Rodgers RN - 06/16/2018Formatting of this note might be different f rom the original. [facility] UROLOGY DISCHARGE INSTRUCTIONS FOLLOWING LAPAROSCOPIC REMOVAL OF [...] CONTACT INFORMATION: - [facility] Office Number: [facility] Office: [phone] [facility] Office: FOLLOWUP INFORMATION: - Dr. Cross will [...] Weakness, dizziness, or fainting Date Last Reviewed: 05/12/201619990248-3112 [employer]. [address] [place] [id number]. All righ ts reserved. This information is [...] out or is dislodged Date Last Reviewed: 08/12/201619998119-8014 [employer]. [address] [place] [address], [place] [address]. All righ ts reserved. This information is not intended as a substitute for professional medical care. Always follow your healthcare professional's instructions. [facility] Patient Belongings Lily Valentin 1960 Valuables Dentures: [...] Were Given To: [id number] Patient Signature: Clinician/Personal Insurance Advisor Signature: documented in this encounter Medications at [...] 11:59 AM PSTPt has d/c orders to [place], [place] SNF. Pt h as sacral friction [...] PA-C - 06/19/2018 7:[address] [facility] UR[facility]Y DAILY PROGRESS NOTE ID: Lily Valentin [...] Signed by: Xavier Yip PA-C, 06/19/2018 7:40 [facility] Sasha Blevins, [facility] - 06/18/2018 4:52 PM PSTSOCIAL WORK D/C PLAN: SNF ([facility]) vs home NEXT STEPS: [facility] SNF in [place], [place] has accepted pt pending insurance authorization. [...] d/c to a SNF. SW called to [facility] SNF and they are yash winchester. SW spoke to [facility], Director at [facility]. She stated that pt is not appropr iate for home health. She recommends SNF. She also stated that pt's insurance is difficult t o work with and only authorized 1 home health visit and it took 10 plus days to get auth'ed for any other home health visits. ASSESSMENT/CHART REVIEW: 58 year old male with A [employer] [place] insurance from [place]. Pt lives with his elderly mother. Pt is bariatric. D/C TRANSPORT: jasson Matta- [phone]. SW originally asked for him to pick [...] support at home. CONTACTS: Toby Valentin, mother- [phone] Electronically signed by JOSH Mcbride 06/18/2018 4:52 [...] 4:35 PM PSTSOCIAL WORK D/C PLAN: SNF ([facility]) vs home? NEXT STEPS: Need PT to re-evaluate for disposition. PT can call this SW at [phone] to discuss d/c plan satya concerns. Awaiting returned call from [facility] SNF admissions ([phone]) re: if pt wo uld be appropriate [...] d/c to a SNF. SARAH called to [facility] SNF and they a re reviewing. SARAH spoke to Angelika, Director at [facility]. She stated that pt is not appropr iate for home health. She recommends SNF. She also stated that pt's insurance is difficult t o work with and only authorized 1 home health visit and it took 10 plus days to get auth'ed for any other home health visits. ASSESSMENT/CHART REVIEW: 58 year old male with [employer] [place] from [place]. Pt lives with his elderly mother. Pt is bariatric. D/C TRANSPORT: jasson Matta- [phone]. SARAH originally asked for him to pick [...] support at home. CONTACTS: Toby Valentin, mother- [phone] Electronically signed by JOSH Mcbride 06/17/2018 4:38 PM Kasia Stroud RN - 06/17/2018 11:33 AM PSTFormatting of this no te might be different from the original. [facility] Wound, Ostomy, & Continence Nursing Note [...] MD - 1 08/17/2017 8:05 AM PST [facility] UR[facility]Y DAILY PROGRESS NOTE ID: Lily Valentin [...] Signed by: Patrice Cross MD, 06/17/2018 8:05 [facility] Patrice Ag MD - 06/16 7:42 AM PST [facility] UROLOGY DAILY PROGRESS NOTE ID: Lily Valentin [...] adult foster home. Electronically Signed by: Patrice Crsos MD, 06/16/2018 7:42 [facility] Jack Lewis MD - 06/15/2018 8:00 AM [...] 36 sec IMAGING: All images reviewed by sc NEDA08/15/2017 Large amount of gas in intestines, [...] lucero PA-C - 06/13/2018 12:20 PM PDT [facility] UROLOGY DAILY PROGRESS NOTE ID: Lily Valentin [...] Signed by: Xavier Yip PA-C, 06/13/2018 12:20 [facility] Associated attestation - Patrice Cross MD - [...] Cross MD - 06/12/2018 5:33 AM PDT [facility] UROLOGY DAILY PROGRESS NOTE ID: Lily Valentin [...] Signed by: Patrice Cross MD, 06/12/2018 5:33 [facility] documented in this encou nter Plan of Treatment +--------+---------+ + + + | Date | Type | Specialty | Care Team | Description | +--------+---------+ + + + | 03/17/ | Office | Cardiology | Lorraine Clifton DO | | | 2019 | Visit | | [address] | | | | | | [place] | | | | | | [id number] | | | | | | | [...] | | | | to 3.5Performed by [facility] | | LABORATORY | | | | [address], | | [place] | | | | [place] [address] | | | | + + + + + + + + | Specimen | + + | Blood specimen | | (specimen) | + + + + + + + | Performing | Address | City/State/Zipcode | Phone Number | | Organization | | | | + + + + + | ROBERTA WADSWORTH | [address] | [place] [address] | | | [facility] | | | | | LABORATORY [...] [facility] | | | | Performed by [facility] [address] | | SACRED | | | | [address] [place] | | HEART | | | | [address] | | MEDICAL | | | | [...] + + | ROBERTA WADSWORTH | [address] | [place] [address] | | | [facility] | | | | | LABORATORY [...] | | | | to 3.5Performed by [facility] | | LABORATORY | | | | [address], | | [place] | | | | [place] [address] | | | | + + + + + + + + | Specimen | + + | Blood specimen | | (specimen) | + + + + + + + | Performing | Address | City/State/Zipcode | Phone Number | | Organization | | | | + + + + + | ROBERTA WADSWORTH | [address] | [place] [address] | | | [facility] | | | | | STEPHEN [...] | | | | to 3.5Performed by [facility] | | LABORATORY | | | | [address], | | [place] | | | | [place] [address] | | | | + + + + + + + + | Specimen | + + | Blood specimen | | (specimen) | + + + + + + + | Performing | Address | City/State/Zipcode | Phone Number | | Organization | | | | + + + + + | SUSIEAKILAH WADSWORTH | [address] | [place] [address] | | | [facility] | | | | | LABORATORY [...] ROBERTA | | | | Performed by [facility] [address] | | SACRED [...] [address] | [place] [address] | | | HEART MEDICAL CENTER | [...] | | | | to 3.5Performed by [facility] | | LABORATORY | | | | [address], [place], | | [place] | | | | [place] [address] | | | | + + + + + + + + | Specimen | + + | Blood specimen | | (specimen) | + + + + + + + | Performing | Address | City/State/Zipcode | Phone Number | | Organization | | | | + + + + + | ROBERTA WADSWORTH | [address] | [place] [address] | | | [facility] | | | | | STEPHEN [...] | | MEDICAL | | | | [facility] [address], | | [place] | | | | [place] [address] | | LABORATORY | | | | [...] + + | PROVIDEDEYSIE SACRCHRISTIAN | [address] | [place] [address] | | | [facility] | | | | | [...] | | MEDICAL | | | | [facility] [address], | | CENTER | | | | [place] [address] | | LABORATORY | | | | [...] + + | ROBERTA WADSWORTH | [address] | [place] [address] | | | [facility] | | | | | LABORATORY [...] | | | | to 3.5Performed by [facility] | | LABORATORY | | | | [address], | | [place] | | | | [place] [address] | | | | + + + + + + + + | Specimen | + + | Blood specimen | | (specimen) | + + + + + + + | Performing | Address | City/State/Zipcode | Phone Number | | Organization | | | | + + + + + | [facility] | [address] | [place] [address] | | | [facility] | | | | | LABORATORY [...] | | | | | seconds.Performed by [facility] | | | | | | [address], | | | | | | [place] [address] | | | | + + + + + + + + | Specimen | + + | Blood specimen | | (specimen) | + + + + + + + | Performing | Address | City/State/Zipcode | Phone Number | | Organization | | | | + + + + + | PROVIDEDEYSIE SACRED | [address] | [place] [address] | | | [facility] | | | | | LABORATORY [...] ENCE | | | Basophils | by [facility] [address], | K/uL | SACRED | | | | [place], [place] | | HEART | | | |Performed by [facility] [address], [place], [place] | | MEDICA L | | [...] + + | BREANNAE [facility] | [address] | [place], [place] | | | [facility] | | | | | LABORATORY [...] | | MEDICAL | | | | [facility] [address], | | CENTER | | | | [place] [address] | | LABORATORY | | | | [...] + + | ROBERTA WADSWORTH | [address] | [place] [address] | | | [facility] | | | | | STEPHEN CAVANAGUH | | | | + + + [...] PROVIDE NCE | | | | by [facility] [address], | | SACRED | | | | [place] [address] | | HEART | | | |Performed by [facility] [address], [place] [address] | | MEDICAL | | | | [...] + + | ROBERTA WADSWORTH | [address] | [place] [address] | | | [facility] | | | | | LABORATORY [...] | | | | to 3.5Performed by [facility] | | LABORATORY | | | | [address], | | [place] | | | | [place] [address] | | | | + + + + + + + + | Specimen | + + | Blood specimen | | (specimen) | + + + + + + + | Performing | Address | City/State/Zipcode | Phone Number | | Organization | | | | + + + + + | [facility] | [address] | [place] [address] | | | [facility] | | | | | [...] | | MEDICAL | | | | [facility] [address], | | CENTER | | | | [place] [address] | | LABORATORY | | | | [...] + + | SUSIEDEYSIJustyna WADSWORTH | [address] | [place] [address] | | | [facility] | | | | | LABORATORY [...] | | MEDICAL | | | | [facility] [address], | | CENTER | | | | [place] [address] | | LABORATORY | | | | [...] + + | ROBERTA WADSWORTH | [address] | [place] [address] | | | [facility] | | | | | [...] PROVIDE NCE | | | | by [facility] [address], | | SACRED | | | | [place] [address] | | HEART | | | |Performed by [facility] [address], [place] [address] | | MEDICAL | | | | [...] + + | ROBERTA [facility]SWOR[facility] | [address] | [place] [address] | | | HEART [facility] CENTER | | | | [...] | | MEDICAL | | | | [facility] [address], | | CENTER | | | | [place] [address] | | LABORATORY | | | | [...] SACRED | [address] | [place] [address] | | | HE[facility] MEDICAL [facility]ENTER | [...] [facility] | | | | Performed by [facility] [address] | | SACRED | | | | [address] [place] | | HEART | | | | [address] | | MEDICAL | | | | [...] WADSW[facility]TH | [address] | [place] [address] | | | [facility] | | | | | LABORATORY [...] | | MEDICAL | | | | [facility] [address], | | CENTER | | | | [place] [address] | | LABORATORY | | | | [...] + + | ROBERTA WADSW[facility] | [address] | [place] [address] | | | [facility] | | | | | STEPHEN CAVANAUGH | | | | + + + + + Tissue Request For Pathology (06/11/2018 2:57 PM PDT) + + | Specimen | + + | | + + + + + | Narrative | Performed At | + + + | | SUSIEALJustyna | | [address] VALENT[address] | [place] | | : 1960 AGE: 58 years SEX: Male | MEDICAL CENTER | | | LABORATORY | | Acct: [id number] Location: | [facility] | | [facility] SURG; 552; 552-02 Case #: | | | [id number] Ordering: PATRICE CROSS MD | | | Client: [facility] | | | Copy To: Printed: | [...] | MDVerify Date: 06/18/2018 12:37 pmPerforming Location: [facility] | | | [facility], [facility] [address] | | | DESCRIPTION:This case is received [...] | | | ureteral and renal vasculature margins.Screen Cutter And Trimmer sections are | | | submitted as [...] pelvis and sinus | | | fat. Screen Cutter And Trimmer sections are submitted during second look with [...] + + | ROBERTA [facility]ADSWORTH | [address] | [place] [address] | | | [facility] | | | | | STEPHEN [...] | | | | | | LAB [facility] | | | | | | [facility] | | | | | | [facility] | | | | | | BLOOD | | | | | | CENTER | | + + + + + + | Rh Type | PositiveComment: Patient | | REFERENCE | | | | is remote crossmatch | | LAB [facility] | | | | eligible | | [...] + + + | Specimen Expiration Date: [id number] | REFERENCE LAB | | | [facility] [place] [facility] | | | [facility] | | | B[facility]OD CENTER | + + + + + + + + | Performing | Address | City/State/Zipcode | Phone Number | | Organization | | | | + + + + + | REFERENCE LAB | [address] | [place] [address] | [phone] | | [facility] [facility] | | | | | [facility] [...] | | | | | | LAB [place] | | | | | | [facility] | | | | | | [facility] | | | | | | BLOOD | | | | | | CENTER | | + + + + + + | Rh Type | Positive | | REFERENCE | | | | | | LAB [place] | | | | | | [facility] | | | | | | [facility] | | | | | | BLOOD | | | | | | CENTER | | + + + + + + | Antibody | Negative | | REFERENCE | | | Screen | | | LAB [place] | | | | | | [facility] [...] + + + | Specimen Expiration Date: [id number] | REFERENCE LAB | | | [facility] | | | [facility] | | | [facility] C[facility] | + + + + + + + + | Performing | Address | City/State/Zipcode | Phone Number | | Organization | | | | + + + + + | REFERENCE LAB | [address] | [place] [address] | [phone] | | [facility] [facility] | | | | | [facility] [...] | | | POC | Performed by [facility] [address] | | SACRED | | | | [address], [place] | | HEART | | | | [address] | | MEDICAL | | | | [...] + + | ROBERTA WADSWORTH | [address] | [place] [address] | | | [facility] | | | | | LABORATORY [...]
--- OUTSIDE RECORDS SUMMARY | ~2019-12-21 | XMS | Encounter Summary ---
Demographics + + + | Address | [address] [address] | | | [place] [address] | + + + | Home Phone [...] Team Providers + +------+ + | Care Pressure Vessel Inspector Name | Role | Phone | [...] | | | neoplasm of | | [phone] | | | | | sigmoid | | Fax: | | | | | colon (HCC) | | [phone] | | | | | [C18.7] | | | | | | | Procedures | | | | | | | NM PART | | | | | | [...] | | | | [place] | [phone] | | | | | [address] | | | | | | [phone] | | | +--------+---------+ + + + [...] Electronically signed by: Oumou Kinsey, 08/22/2017 6:48 [facility] documented in this encounter Discharge Instructions Instructions Gretel Peña RN - 08/23/2017 [facility] Patient Belongings Aaron Latham 1960 Valuables Dentures: None Vision - Corrective Lenses: None Hearing Aid: None Jewelry: None Clothing: Pants, Shirt, Footwear ( Duffel/CPAP/CANE/Hospital provided bag with clothing sen t to PACU pt. storage bins) Other Valuables: CPAP/BiPAP, Secured on Unit Other Valuables: None Home Medications: None Patient Signature: Clinician/Pompom Maker Signature: Incision Care: Abdomen Dressing your incision [...] by your healthcare provider Date Last Reviewed: 07/12/201619993112-0682 [employer]. [address] [place] [address]. All righ ts reserved. This information is [...] You may c ough up blood. 2015 [employer] All illustrations and images included in CareNotes a re the copyrighted property of [employer] or [employer]. documented in this encounter Medications at Time [...] 0700 08/23/17 07 - 08/24/17 0700 Shift 5485-4275 6939-5626 24 Hour Total 0222-8676 4727-2073 24 Hour Total I N T A [...] Arango - 08/22/2017 4:26 PM PSTSocial Work: [facility] called and they do not service the area in [place] where patient lives. Called [facility] in [place]. Made referral. They will verify insurance and call back hopefully in am. Spoke with pt and his mother Toby. Transport difficulties for discharge today, but their fr iend should be at [facility] at 1000 08/23. Sasha Blevins LICSW [...] with her in her mobile home in [place], [place]. She is agreeable to home health and after review of choice s, chose [facility]. Referral made to [facility] by voicemail and fa x. Will await response from them on whether they can follow; would need to call them when pt d/c's but otherwise they can follow in [facility]. Pt will have a friend [...] 8.5 9.0 Radiology data: No results found. [facility] Blanc MD - 08/20/2017 6:52 AM PSTFormatting [...] 08/20/17 0708/20/17 07 - 08/21/17 0700 Shift 8234-3981 8517-2216 24 Hour Total 1900-0700 24 Hour Total [...] (mL/kg) 850 (5.4) 2050 (13.1) 2900 (18.5) [facility] -256 -733 -987 Weight (kg) 156.9 156.9 156.9 156.9 [...] 08/19/17 0708/19/17 07 - 08/20/17 0700 Shift 6776-3413 0997-3251 24 Hour Total 9006-8820 8579-2962 24 Hour Total I N T A [...] 0700 08/18/17 0701 - 08/19/17 0700 Shift 3636-6084 7588-1979 24 Hour Total 3581-4578 2088-2155 24 Hour Total I N T A [...] 0700 08/17/17 07 - 08/18/17 0700 Shift 4899-6990 24 Hour Total 5926-5629 6905-9580 24 Hour Total I N T A [...] U T P U T Urine (mL/kg/hr) 214 217 5599 (0.7) 1300 Blood 150 Shift Total (mL/kg) [...] | | | | | [facility] | | | | | | [address] | | | | | | | [...] + | [facility] | [address] | [place] [address] | | | [facility] | | | | | LABORATORY [...] + + | [facility] | [address] | [place] [address] | | | [facility]ENTER | [...] + + | Glucose | 149 (H)Comment: Burundian | 65 - 99 mg/dL | [facility] [...] + + | ROBERTA WADSWORTH | [address] | [place] [address] | | | [facility] | | | | | LABORATORY [...] Completed: 08/20/2017 Physician: Mehul KINSEY Copy to: [facility] | | DIAGNOSIS: Colon, sigmoid, segmental [...] cm to 0.5 cm in greatest dimension. Carbide Powder Processor | | | sections are submitted as [...] "A12" three lymph node candidates, intact. ([facility]) | | | MICROSCOPIC DESCRIPTION: Histologic sections of all submitted blocks | | | are examined by light microscopy. These findings, together with the | | | gross examination, support the pathologic diagnosis. A: | | | 85944, 55876, 76231, 17809, 90587(e) | | | PROCEDURES/ADDENDA SPECIAL STAINS DIAGNOSIS: [...] developed and their performance characteristics determined by [facility] | | [facility]. This test is used for clinical | | | purposes. It should not be regarded as investigational or for | | | research. [facility] is certified under the Clinical | | | Laboratory Improvement Amendments of 1988 (CLIA) as qualified to | | | perform high complexity clinical laboratory testing. Comment: | | | Breast predictive markers have not been validated on decalcified | | | specimens. Bladimir Staley MD Testing performed | | | at: [facility] | | | Michelle Arredondo, Director [address] [place] [address] [address] [place], [place] | | | [address] | | + + + + + + + + | Performing | Address | City/State/Zipcode | Phone Number | | Organization | | | | + + + + + | ROBERTA WADSWORTH | [address] | [place] [address] | | | [facility] | | | | | LABORATORY [...] + + | Glucose | 113 (H)Comment: Burundian | 65 - 99 mg/dL | [facility] [...] + + | ROBERTA WADSWORTH | [address] | [place] [address] | | | [facility] | | | | | LABORATORY [...] + + | [facility] | [address] | [place] [address] | | | [facility] | | | | | LABORATORY [...] + | ROBERTA WADSWORTH | [address] | [place] [address] | | | [facility] | | | | | LABORATORY [...] [address] | [place] [address] | | | [facility] | | | | | LABORATORY [...] policy and contact | | | provider trucking contractor, | | + +---+ | | | [...]
--- OUTSIDE RECORDS SUMMARY | ~2019-12-21 | XMS | Encounter Summary ---
Demographics + + + | Address | [address] | | | [place] [address] | + + + | Home Phone [...] [address] | | | | | [address] | | + + + + + Care Team Providers + +------+ + | Care Feed Blender Name | Role | Phone | + [...] | | 2019 | Visit | | [address] | | | | | | [address] | | | | | | [place], [place] | | | | | | [address] | | | | | | [phone] | | | | | | | | +--------+---------+ + + + documented as of this encounter Visit Diagnoses Not on filedocumented in this encounter"
--- OUTSIDE RECORDS SUMMARY | ~2019-12-21 | XMS | Encounter Summary ---
Demographics + + + | Address | [address] [address] | | | [place] [address] | + + + | Home Phone [...] Team Providers + +------+ + | Care Master Plumber Name | Role | Phone | + [...] + + | 06/09/ | Telephone | [facility] | Callum, | Alvaro (Appointment | | 2018 | | NEPHROLOGY LETICIA | Gabo Jay | reminder call) | | | | [address] [place] | Hoisting Engineer | | | | | [address] [place], [place] | | | | | | [address] | | | | | | [phone] | | | +--------+ + + + [...] [place] | | | | | | [address] | | | | | | | | +--------+---------+ + + + documented as of this encounter Visit Diagnoses Not on filedocumented in this encounter"
--- OUTSIDE RECORDS SUMMARY | ~2019-12-21 | XMS | Encounter Summary ---
Demographics + + + | Address | [address] [address] | | | [place] [address] | + + + | Home Phone [...] + | 06/16/ | Orders Only | [facility] | Jewel Ulloa MD | Essential | | 2019 | | NEPHROLOGY [place] | [address] [place] | hypertension with | | | | [address] | [address] [place], [place] | goal blood pressure | | | | [address] | [address] | less than 130/80 | | | | [place], [place] | | (Primary Dx); | | | | [address] | | Subclinical | | | | [phone] | | hypothyroidism; | | | | [...] [place] | | | | | | [address] | | | | | | | [...]
--- OUTSIDE RECORDS SUMMARY | ~2019-12-21 | XMS | Encounter Summary ---
Demographics + + + | Address | [address] | | | [place] [address] | + + + | Home Phone | | + + + | Preferred Language | Unknown | + + + | Marital Status | Single | + + + | Catholic Affiliation | LDS | + + [...] [place] | | | | | [address] | | + + + + + Care Team Providers + +------+ + | Care Custom Tailor Apprentice Name | Role | Phone | [...] | unspecified | [address] | [place] | | | | | part of | [address] | Pavilion, 4th | | | | | colon, | Rd | floor | | | | | unspecified | [place], [place] | [place], [place] | | | | | type | [address] | [address] | | | | | Procedures | Phone: | Phone: | | | | | CONSULT TO | [phone] | [phone] | | | | | GI PROCEDURE | Fax: | Fax: | | | | | UNIT: | [phone] | [phone] | | | | | COLONOSCOPY | | | | | | | Priority 2: | | | | | | | 3-4mo | | | + +--------+ + + + + Encounter Details +--------+ + + + + | Date | Type | Department | Care Team | Description | +--------+ + + + + | 07/01/ | Casting Machine Control Board Operator | [facility] | Of[place], | Polyp of colon, | | 2018 | | [place] [address] | MD Charles [address] | unspecified part of | | | | [address] | [address] | colon, unspecified | | | | Mailcode: Center | [place], [place] | type (Primary Dx) | | | | for Health and | [address] | | | | | [facility] [address] | [phone] | | | | | [facility] [place] | | | | | | [address] | | | | | | [phone] | | | +--------+ + + + [...] Rd | | | | | | [place], [place] | | | | | | [address] | | | | | | [phone] | | | | | | | | +--------+---------+ + + + documented as of this encounter Visit Diagnoses + + | Diagnosis | + + | Polyp of colon, unspecified part of colon, unspecified type - Primary | + + documented in this encounter"
--- OUTSIDE RECORDS SUMMARY | ~2019-12-21 | XMS | Encounter Summary ---
Demographics + + + | Address | [address] [address] | | | [place] [address] | + + + | Home Phone [...] Team Providers + +------+ + | Care Chip Bin Operator Name | Role | Phone | [...] | PHYSIATRY [address] | [address] | | | | | [address] | Terry [address]ITH | | | | | [place] | [place] [address] | | | | | [address] | | | | | | [phone] | | | +--------+ + + + [...] [place] | | | | | | [address] | | | | | | | | +--------+---------+ + + + documented as of this encounter Visit Diagnoses Not on filedocumented in this encounter"
--- OUTSIDE RECORDS SUMMARY | ~2019-12-21 | XMS | Encounter Summary ---
Demographics + + + | Address | [address] [address] | | | [place] [address] | + + + | Home Phone [...] Providers + +------+ + | Care Spray Gun Repairer Helper Name | Role | Phone | + +------+ + | Sarah Carroll MD | PCP | | + +------+ + Encounter Details +--------+ + + + + | Date | Type | Department | Care Team | Description | +--------+ + + + + | 01/30/ | Telephone | [facility] | Patrice Cross MD | | | 2018 | | [place] [address] | [address] | | | | | [address] | [address] | | | | | [place], [place] | [address] | | | | | [address] | | | | | | [phone] | | | +--------+ + + + [...] | | | | | [place] | | | | | | [address] | | | | | | | | +--------+---------+ + + + documented as of this encounter Visit Diagnoses Not on filedocumented in this encounter"
--- OUTSIDE RECORDS SUMMARY | ~2019-12-21 | XMS | Encounter Summary ---
Demographics + + + | Address | [address] [address] | | | [place] [address] | + + + | Home Phone [...] | + + +---------+ + | Toby Lahtam | ECON | Unknown | | + + +---------+ + Care Team Providers + +------+ + | Care Public Opinion Survey Taker Name | Role | Phone | + +------+ + | Sarah Carroll MD | PCP | | + +------+ + Encounter Details +--------+ + + + + | Date | Type | Department | Care Team | Description | +--------+ + + + + | 07/28/ | Orders Only | [facility] | Jewel Ulloa MD | | | 2018 | | NEPHROLOGY [place] | [address] [place] | | | | | [address] [place] | [address] [place], [place] | | | | | [address] [place], [place] | [address] | | | | | [address] | | | | | | [phone] | | | +--------+ + + + [...] | | | | | [address] | | | | | | [address] | | | | | | | [...]
--- OUTSIDE RECORDS SUMMARY | ~2019-12-21 | XMS | Encounter Summary ---
Demographics + + + | Address | [address] | | | [place] [address] | + + + | Home Phone [...] [place] | | | | | [address] | | + + + + + Care Team Providers + +------+ + | Care Rail Technician Name | Role | Phone | [...] | | | | | [address] | | | | | | [address] | | | | | | [place], | | | | | | 4th floor [facility] | | | | | | [place] [address] | | | | | | [phone] | | | +--------+ + + + [...] Rd | | | | | | [place], [place] | | | | | | [address] | | | | | | [phone] | | | | | | | | +--------+---------+ + + + documented as of this encounter Visit Diagnoses Not on filedocumented in this encounter"
--- OUTSIDE RECORDS SUMMARY | ~2019-12-21 | XMS | Encounter Summary ---
Demographics + + + | Address | [address] | | | [place] [address] | + + + | Home Phone [...] [place] | | | | | [address] | | + + + + + Care Team Providers + +------+ + | Care Immersion Metal Cleaner Name | Role | Phone | [...] [address] | | | | | | [place], | | | | | | [place] [address] | | | +--------+--------+ + + + [...] Rd | | | | | | [place] | | | | | | [address] | | | | | | [phone] | | | | | | | | +--------+---------+ + + + documented as of this encounter Visit Diagnoses Not on filedocumented in this encounter"
--- OUTSIDE RECORDS SUMMARY | ~2019-12-21 | XMS | Encounter Summary ---
Demographics + + + | Address | [address] [address] | | | [place] [address] | + + + | Home Phone [...] Team Providers + +------+ + | Care Ticket Clerk Name | Role | Phone | [...] PHYSIATRY [address] | MD [address] | | | | | [address] | [place], [place] | | | | | [place], [place] | [address] | | | | | [address] | | | | | | [phone] | | | +--------+ + + + [...] [place] | | | | | | [address] | | | | | | | | +--------+---------+ + + + documented as of this encounter Visit Diagnoses Not on filedocumented in this encounter"
--- OUTSIDE RECORDS SUMMARY | ~2019-12-21 | XMS | Encounter Summary ---
Demographics + + + | Address | [address] [address] | | | [place] [address] | + + + | Home Phone [...] Team Providers + +------+ + | Care Building Energy Retrofit Technician Name | Role | Phone | [...] | | [address] | [address] [place], [place] | | | | | [address] | [address] | | | | | [phone] | | | +--------+ + + + [...] | | | | | [place] | | | | | | [address] | | | | | | | | +--------+---------+ + + + documented as of this encounter Visit Diagnoses Not on filedocumented in this encounter"
--- OUTSIDE RECORDS SUMMARY | ~2019-12-21 | XMS | Encounter Summary ---
Demographics + + + | Address | [address] [address] | | | [place] [address] | + + + | Home Phone [...] + +------+ + | Care International Trade Analyst Name | Role | Phone | [...] | | | | | atrial | [address] | [address] | | | | | fibrillation | [address] | [address] | | | | | (HCC) | [address] | [place], [place] | | | | | Chronic | [place] | [address] | | | | | combined | [address] | Phone: | | | | | systolic and | Phone: | [phone] | | | | | diastolic | [phone] | Fax: | | | | | congestive | Fax: | [phone] | | | | | heart | [phone] | | | | | | failure [...] | | Family Nurse | Diagnoses | lGen, | Sixto, | | | | Practitioner | Chronic | Sarah Gallegos MD | Ileana Gonzalez, | | | | / Cardiology | combined | [address] | [address] | | | | | systolic | [address] Liao | [place] | | | | | (congestive) | [place], | [place] | | | | | and | [place] [address] | [place] | | | | | diastolic | Phone: | [address] Phone: | | | | | (congestive) | [phone] | [phone] | | | | | heart | Fax: | Fax: | | | | | failure | [phone] | [phone] | | | | | (HCC) 6 [...] + + | 06/01/ | Office | [facility] | Ileana Henson | Paroxysmal atrial | | 2019 | Visit | CARDIOLOGY [place] | [address] | fibrillation (HCC) | | | | [address] | [place] [address] | (Primary Dx); | | | | [address] | [place] [address] | Chronic combined | | | | [place] | [phone] | systolic and | | | | [address] | | diastolic congestive | | | | [phone] | | heart failure | | | [...] you an Echo to be done at [facility] I made changes to medications : [...] He is managed on Coumadin for his JCR2FA0 2 VASC score of 2 which is managed by the [facility] Coumadin clinic. He was hospitalized in July 2017 at [facility] for acute GI bleeding, where a [...] surgery 08/16/2017 by , colorectal surgeon in [place], with low anterior resection with open approach, did not require any Chemo or radiation, He also followed up Dr. Cross in [place], and had left nephrectomy 06/11/2018 for reji [...] 324 pounds [facility], but has struggled to remain less than [...] reports he had a colonoscopy performed at [facility] last month, but needs to be repeated, as prep not effective enough. 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 Cross in [place] Denies hematuria. Denies history of benign prostatic [...] illicit drug use. Exercises sporadically . 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 Lives with his [...] for: TOTEPI CARDIAC PROCEDURES/IMAGING Last Cath: 02/06/2017 ([facility]) Separate ostia of the left [...] inadequate TR jet. Pulmonic valve normal, trace ME. No p ericardial effusion. IVC 1.5-2.5 cm, [...] block. Bifascicular Block: Rate 5 8 bpm, ME 222 ms, QRS 156 ms, QTC 475 ms EK03/11: Sinus bradycardia with first-degree A-V block. Bi fascicular block. Rate 59 bpm, ME 238 ms, QRS 160 ms, QTC 481 ms, compared to EKG done in January first-degree A-V b lock has increased slightly,tracing personally reviewed by me EK08/01: Sinus rhythm with first-degree AV block. Left axis deviation and a right bundle branch block. Rate 65 bpm, ME 230 ms, QRS 162 ms, QTC 497 ms, when compared to EKG done in February 2017, ME interval has decreased slightly and QTC has increased ,tracing person ally reviewed by me EK10/30/2018: Sinus rhythm with first-degree AV block bifascicular block, old septal infa rct. Rate 66 bpm, ME 250 ms, QRS 156 ms, QTC 475 [...] with Dr. Lorraine Clifton as his primary candy spreader in 6 months, but I will also [...] contain inadvertent rec ognition errors. Ethan ARREOLA [facility] 06/01/2019 docum ented in this encounter [...]
--- OUTSIDE RECORDS SUMMARY | ~2019-12-21 | XMS | Encounter Summary ---
Demographics + + + | Address | [address] [address] | | | [place] [address] | + + + | Home Phone [...] Team Providers + +------+ + | Care Engine Lathe Set Up Operator Tool Name | Role | Phone | + [...] | | | | Malignant | | [address] Phone: | | | | | neoplasm of | | [phone] | | | | | sigmoid | | Fax: | | | | | colon (HCC) | | [phone] | | | | | [C18.7] | | | | | | | Procedures | | | | | | | MI PART | | | | | | [...] | | | | [place] | [address] | | | | | [address] | | | | | | [phone] | Gregorio Lopes, | | | | [...] +----+---+ + + | | 1 | [place] off | | | | 3 | [...] | | 1 | | given to PRE SALES NETWORK ENGINEER, remedicated for pain and lidocaine infusion | [...] attempt by | | | | | BACK TUFTER student); Airway Type: | | | | [...] | Cathet | Smallest Catheter, Perineum | NehaDelmyMackinac | | | er | cleaned, Second [...] | | | | | [place], [place] | | | | | | [address] | | | | | | | [...] | + + + | Gregorio Lopes BACK TUFTER Student 08/16/2017 12:19 Anesthesia | | | [...] glottis)Other equipment: styletteAttempts: 2 (first attempt by BACK TUFTER | | student)Airway type: endotrachealSize: 8Cuffed: cuffedRoute, [...]
--- OUTSIDE RECORDS SUMMARY | ~2019-12-21 | XMS | Encounter Summary ---
Demographics + + + | Address | [address] | | | [place] [address] | + + + | Home Phone [...] [place] | | | | | [address] | | + + + + + Care Team Providers + +------+ + | Care Warranty Clerk Name | Role | Phone | [...] Rd | | | | | | [place], [place] | | | | | | [address] | | | | | | [phone] | | | | | | | | +--------+---------+ + + + documented as of this encounter Visit Diagnoses Not on filedocumented in this encounter"
--- OUTSIDE RECORDS SUMMARY | ~2019-12-21 | XMS | Encounter Summary ---
Demographics + + + | Address | [address] [address] | | | [place] [address] | + + + | Home Phone [...] + + + | Author | [facility] | | | and [place] | + + + | Organization | [facility] | | | and [...] Team Providers + +------+ + | Care Flatwork Feeder Name | Role | Phone | [...] + + | 06/09/ | Telephone | [facility] | Callum, | Alvaro (Appointment | | 2018 | | NEPHROLOGY [place] | Gabo Jay | reminder call) | | | | [address] [place] | Layout Mechanic | | | | | [address] [place], [place] | | | | | | [address] | | | | | | [phone] | | | +--------+ + + + [...] [place] | | | | | | [address] | | | | | | | | +--------+---------+ + + + documented as of this encounter Visit Diagnoses Not on filedocumented in this encounter"
--- OUTSIDE RECORDS SUMMARY | ~2019-12-21 | XMS | Clinical Summary ---
Demographics + + + | Address | [address] [address] | | | [place] [address] | + + + | Home Phone | | + + + | Preferred Language | Unknown | + + + | Marital Status | Single | + + + | Sikhism Affiliation | 1077 | + + + | Race | Unknown | + + + | Ethnic Group | Unknown | + + + Author + + + | Author | [employer] (Historical as of | | | 03-28-19) | + + + | Organization | [facility] [employer] (Historical as of | | | 03-28-19) [...] [place], | | | | | [place] [address] | | + + + + + Care Team Providers + +------+ + | Care Street Sweeper Name | Role | Phone | + [...] +------+-------+ + | MEDICAID | [place]ASTER | [id number] | | | [address] | | | N | | | | [place] | | | [place]FF | | | | [address] | | | DNA ANALYST | | | | | + +--------+ [...] | | al/Fam | | 1 | [phone] [address] [place], | | | renetta | | | [address] | [place] [address] | + +--------+ +--------+ + +
--- OUTSIDE RECORDS SUMMARY | ~2019-12-21 | XMS | Encounter Summary ---
Demographics + + + | Address | [address] | | | [place] [address] | + + + | Home Phone [...] [place] | | | | | [address] | | + + + + + Care Team Providers + +------+ + | Care Food Service Representative Name | Role | Phone | [...] Rd | | | | | | [place], [place] | | | | | | [address] | | | | | | [phone] | | | | | | | | +--------+---------+ + + + documented as of this encounter Visit Diagnoses Not on filedocumented in this encounter"
--- OUTSIDE RECORDS SUMMARY | ~2019-12-21 | XMS | Encounter Summary ---
Demographics + + + | Address | [address] [address] | | | [place] [address] | + + + | Home Phone [...] + +------+ + | Care Seismic Prospecting Observer Helper Name | Role | Phone | [...] | Services | Therapy | Spinal | [facility] | [facility]ITAL | | | Required | | stenosis of | [place] | PHYSICAL | | | | | lumbar | [address] | THERAPY [address] | | | | | region | [address] | [place] | | | | | without | [place] | [place], [place] | | | | | neurogenic | [place], [place] | [address] | | | | | claudication | [address] | Phone: | | | | | Lumbar | Phone: | [phone] | | | | | herniated | [phone] | Fax: | | | | | disc Lumbar | Fax: | [phone] | | | | | | [phone] | | | | | | radiculopath [...] | | | | | lumbar | [address] | [address] | | | | | region with | [place], | [place], | | | | | neurogenic | [place] [address] | [place] [address] | | | | | claudication | Phone: | Phone: | | | | | Lumbar | [phone] | [phone] | | | | | radiculopath | Fax: | Fax: | | | | | y Bilateral | [phone] | [phone] | | | | | foot-drop | | | + + + + + + + Encounter Details +--------+---------+ + + + | Date | Type | Department | Care Team | Description | +--------+---------+ + + + | 10/12/ | Office | [facility] | Cordell Pedraza | Spinal stenosis of | | 2019 | Visit | NEUROSURGERY [address] | MD [place] [address] | lumbar region | | | | [address] | [address] | without neurogenic | | | | [place], [place] | [place] | claudication | | | | [address] | [address] | (Primary Dx); Lumbar | | | | [phone] | | herniated disc; | | | [...] program. 2. Proceed with follow-up appointment at [facility] spine clinic. Please have records to our cl inic sent following the appointment. 3. Follow-up appointment in approximately 6 months documented in this encounter Progress Notes Cordell Pedraza MD - 10/13/2019 12:45 PM PST Cordell Pedraza MD [address] [facility] [address] [place] [address] FAX: [phone] NEUROSURGERY HISTORY AND PHYSICAL EXAMINATION CHIEF COMPLAINT: [...] for evaluation at the spine clinic at [facility] in May 2019 and has not yet [...] SIGMOIDOSCOPY; Surgeon: Mehul Bowles MD; Location: [facility] MAIN OR COLONOSCOPY 05/22/2017 COLONOSCOPY 07/01/2019 Dr Gilbert, [facility]: Large 3 cm flat ascending colon polyp. [...] HESIONS; Surgeon: Patrice Cross MD; Location: [facility] MAIN OR Unlisted Procedure Arthroscopy CURRENT [...] has no apparent deficits with short or rodent exterminator memory. CRANIAL NERVES: II: Acuity is intact. [...] Intrinsics 3 5 Ulnar Intrinsics 2-3 5 Engineering Agent Strength 5 5 Hip Flexion 4 4 [...] spent over 45 minutes with him in [facility] office today greater than 50% which [...] arrange closer to his h ome in [place]. Activity precautions, exercises and signs and symptoms to watch for have been fully discussed. He will notify our office if any significant changes occur. He has not yet had his follow-up appointment at [facility] spine clinic and is going to try [...] [place] | | | | | | [address] | | | | | | | [...]
--- OUTSIDE RECORDS SUMMARY | ~2019-12-21 | XMS | Encounter Summary ---
Demographics + + + | Address | [address] [address] | | | [place] [address] | + + + | Home Phone | | + + + | Preferred Language | Unknown | + + + | Marital Status | Single | + + + | Confucianist Affiliation | 1077 | + + + [...] Providers + +------+ + | Care Head Cashier Name | Role | Phone | + +------+ + PCP | Unavailable | + +------+ + Encounter Details +--------+ + + + + | Date | Type | Department | Care Team | Description | +--------+ + + + + | 06/05/ | Hospital | [facility] | Conversion | Diagnosis unknown | | 2016 | Encounter | CONVERSION [address] | Transaction, | | | | | [address] | Provider Unknown | | | | | [place] | | | | | | [address] | | | | | | [phone] | | | +--------+ + + + [...] | | | | | [address] [place] | | | | | | [address] | | | | | | | [...]
--- OUTSIDE RECORDS SUMMARY | ~2019-12-21 | XMS | Encounter Summary ---
Demographics + + + | Address | [address] [address] | | | [place] [address] | + + + | Home Phone [...] Providers + +------+ + | Care Commercial Green Building Architect Name | Role | Phone | [...] [address] | | | | | [place], [place] | [address] | | | | | [address] | | | | | | [phone] | | | +--------+ + + + [...] [place] | | | | | | [address] | | | | | | | [...] | e': 0.05 m/s Lateral E/e': 14.38 Termite Technician: | | | Authenticated by: PRAFUL CRUZ MD Report Date/Time: -- | | | [id number] | | + + + + + [...] | 5.27 cmLVPWd: 1.53 cmLVOT Area: 3.98 dr1TCPA Diam: 2.25 cm%FS: 29.74 %EF(Teich): | | [...] (A-L): 19.51 ml/m2LAAs | | A2C: 15.25 [id number] A-L A2C: 42.23 mlLALs A2C: 4.67 cmLAAs A4C: 19.09 [id number] | | A-L A4C: 57.52 mlLALs A4C: 5.38 cmRAAs: 18.09 [id number] A-L: 55.31 mlRAESV MOD: | | 52.35 mlRALs: 5.02 cmTAPSE: 2.41 cmAV maxP.54 mmHgAV meanP.73 mmHgAV | | Vmax: 1.62 m/Kristy Vmean: 1.12 m/Kristy VTI: 27.29 cmAVA Vmax: 3.41 cm2AVA (VTI): | | 4.05 [id number] Vmax: 0.00 cm2/m2AVAI (VTI): 0.00 cm2/m2LVOT maxP.71 mmHgLVOT | | meanP.84 mmHgLVSI Dopp: 40.80 ml/m2LVSV Dopp: 110.56 mlLVOT Vmax: 1.38 | | m/sLVOT Vmean: 1.04 m/sLVOT VTI: 27.72 cmMV A Zack: 0.79 m/sMV DecT: 349.62 msMV | | E Zack: 0.74 m/sMV E/A Ratio: 0.93MV PHT: 101.39 msMVA By PHT: 2.16 [id number] e': | | 0.04 m/sSeptal E/e': 16.78Lateral e': 0.05 m/sLateral E/e': 14.38 | | Termite Technician:Authenticated by: Tiesha BOOTHE Date/Time: -- | | [id number] IMPRESSION: 1. Overall left ventricular systolic function [...] | |Lateral E/e': 14.38 | | | |Termite Technician: | |Authenticated by: PRAFUL CRUZ MD | |Report Date/Time: -- [id number] | | | |IMPRESSION: | |1. Overall [...]
--- OUTSIDE RECORDS SUMMARY | ~2019-12-21 | XMS | Encounter Summary ---
Demographics + + + | Address | [address] [address] | | | [place] [address] | + + + | Home Phone [...] Providers + +------+ + | Care Equipment Tester Name | Role | Phone | [...] | | CONVERSION [address] | [address] | | | | | [address] | [facility] [address] | | | | | [place], [place] | [place] [address] | | | | | [address] | [phone] | | | | | [phone] | | | +--------+ + + + [...] [place] | | | | | | [address] | | | | | | | [...] | | | hypokinesis, diastolic function abnormal, Edmonson visually estimates | | | LVEF 40-45%. [...] | | | hypokinesis, diastolic function abnormal, [place] visually estimates | | | LVEF 40-45%. [...] pressures of 5-10mmHg. MEASUREMENTS | | | Travel Registered Nurse Pacu: DBS Authenticated by: Chris Link DO Report [...] | | global hypokinesis, diastolic function abnormal, [place] visually estimates LVEF 40-45%. | | Moderate [...] venous pressures of 5-10mmHg. | | MEASUREMENTS Travel Registered Nurse Pacu: DBSAuthenticated by: Chris Reyes | | Date/Time: 02-16-2016 20:56:07 IMPRESSION: 1. See Dictation. A fib. 2. Moderate | | concentric LVH, mild global hypokinesis, diastolic function abnormal, Edmonson visually | | estimates LVEF 40-45%. Moderate [...] | |MEASUREMENTS | | | | | |Travel Registered Nurse Pacu: DBS | |Authenticated by: Chris Link DO | |Report Date/Time: 02-16-2016 20:56:07 | | | |IMPRESSION: | |1. See Dictation. A fib. 2. Moderate concentric LVH, mild global hypokinesis, diastolic fu nction abnormal, Edmonson visually estimates LVEF 40-45%. Moderate LAE, moderate [...]
--- OUTSIDE RECORDS SUMMARY | ~2019-12-21 | XMS | Encounter Summary ---
Demographics + + + | Address | [address] [address] | | | [place] [address] | + + + | Home Phone [...] Providers + +------+ + | Care Stone Unloader Name | Role | Phone | + [...] 2019 | | [address] | [employer] | (antinuclear | | | | [place] | | antibody); Pain in | | | | [address] | | joint, multiple | | | | [phone] | | sites | +--------+ + + [...] [place] | | | | | | [address] | | | | | | | [...] - 1.030 | REFERENCE | | | [place], | | | LAB | | | [...] REFERENCE | | | | performed at [facility];[address] | | LAB | | | | [place] | | [facility] | | | | [address];[place] [address] | | LABORATORY | | + + + + + + + + | Specimen | + + | Urine | + + + + + + + | Performing | Address | City/State/Zipcode | Phone Number | | Organization | | | | + + + + + | REFERENCE LAB | [address] [facility] | [place] | [phone] | | [facility] | Bl[address] | [address] | | | LABORATORY | | | | + + + + + | REFERENCE LAB | [address] [place] [address] | [place] | | | [facility] | Bl[address]. | [address] | | | LABORATORY | | | [...] LAB | | | | performed at [facility];[address] | | [facility] | | | | [place] | | LABORATORY | | | | Blvd;[place] [address] | | | | | | | | | | + + + + + + + + | Specimen | + + | | + + + + + + + | Performing | Address | City/State/Zipcode | Phone Number | | Organization | | | | + + + + + | REFERENCE LAB | [address] [place] [address] | [place] | [phone] | | [facility] | Bl[address] | [address] | | | LABORATORY | | | | + + + + + | REFERENCE LAB | [address] [place] [address] | [place], [place] | | | [facility] | Blvd. | [address] | | | LABORATORY | | | [...] | | | urine | performed at [facility];[address] | | [facility] | | | | [facility] | | LABORATORY | | | | Blvd;[place] [address] | | | | | | | | | | + + + + + + + + | Specimen | + + | | + + + + + + + | Performing | Address | City/State/Zipcode | Phone Number | | Organization | | | | + + + + + | REFERENCE LAB | [address] [place] [address] | [place], [place] | [phone] | | [facility] | Blvd. | [address] | | | LABORATORY | | | | + + + + + | REFERENCE LAB | [address] [place] [address] | [place], [place] | | | [facility] | Blvd. | [address] | | | LABORATORY | | | [...] | | | RATIO,URINE | performed at [facility];[address] | | LAB | | | | [place] | | [facility] | | | | Bl[address];[place] [address] | | LABORATORY | | + + + + + + + + | Specimen | + + | Urine | + + + + + + + | Performing | Address | City/State/Zipcode | Phone Number | | Organization | | | | + + + + + | REFERENCE LAB | [address] [place] [address] | [place], [place] | [phone] | | [facility] | Bl[address] | [address] | | | LABORATORY | | | | + + + + + | REFERENCE LAB | [address] [place] [address] | [place], [place] | | | [facility] | Bl[address]. | [address] | | | LABORATORY | | | [...] REFERENCE | | | | performed at [facility];[address] | | LAB | | | | [place] | | [facility] | | | | Bl[address];[place] [address] | | LABORATORY | | + + + + + + + + | Specimen | + + | Blood | + + + + + + + | Performing | Address | City/State/Zipcode | Phone Number | | Organization | | | | + + + + + | REFERENCE LAB | [address] [facility] | [place] | [phone] | | [facility] | Bl[address] | [address] | | | LABORATORY | | | | + + + + + | REFERENCE LAB | [address] | [place] | | | [facility] | Bl[address]. | [address] | | | LABORATORY | | | [...] | | | Absolute | performed at [facility];[address] | K/uL | LAB | | | | [place] | | [facility] | | | | [address];[place] [address] | | LABORATORY | | + + + + + + + + | Specimen | + + | Blood | + + + + + + + | Performing | Address | City/State/Zipcode | Phone Number | | Organization | | | | + + + + + | REFERENCE LAB | [address] [facility] | [place], [place] | [phone] | | [facility] | Bl[address] | [address] | | | LABORATORY | | | | + + + + + | REFERENCE LAB | [address] [facility] | [place] | | | [facility] | Bl[address]. | [address] | | | LABORATORY | | | [...] | | | | | | MDRD IDNJ traceable | | | | | | equation.Testing | | | | | | performed at [facility];[address] | | | | | | [facility] | | | | | | [facility];[place] [address] | | | | | | | | | | + + + + + + + + | Specimen | + + | Blood | + + + + + + + | Performing | Address | City/State/Zipcode | Phone Number | | Organization | | | | + + + + + | REFERENCE LAB | [address] [place] [address] | [place], [place] | [phone] | | [facility] | Bl[address] | [address] | | | LABORATORY | | | | + + + + + | REFERENCE LAB | [address] [place] [address] | [place], [place] | | | [facility] | Bl[address]. | [address] | | | LABORATORY | | | [...] REFERENCE | | | | performed at [facility];[address] | | LAB | | | | [place] | | [facility] | | | | Blvd;[place] [address] | | LABORATORY | | + + + + + + + + | Specimen | + + | Blood | + + + + + + + | Performing | Address | City/State/Zipcode | Phone Number | | Organization | | | | + + + + + | REFERENCE LAB | [facility] | [place] | [phone] | | [facility] | Bl[address] | [address] | | | LABORATORY | | | | + + + + + | REFERENCE LAB | [facility] | [place] | | | [facility] | Bl[address] | [address] | | | LABORATORY | | | [...] REFERENCE | | | | performed at [facility];[address] | | LAB | | | | [place] | | [facility] | | | | Bl[address];[place] [address] | | LABORATORY | | + + + + + + + + | Specimen | + + | Blood | + + + + + + + | Performing | Address | City/State/Zipcode | Phone Number | | Organization | | | | + + + + + | REFERENCE LAB | [address] [facility] | [place] | [phone] | | [facility] | [address] | [address] | | | LABORATORY | | | | + + + + + | REFERENCE LAB | [address] [facility] | [place] | | | [facility] | Bl[address]. | [address] | | | LABORATORY | | | [...] | | | | | performed at [facility], [address] | | | | | | [facility] | | | | | | [place] [address] | | | | + + + + + + + + | Specimen | + + | Blood | + + + + + + + | Performing | Address | City/State/Zipcode | Phone Number | | Organization | | | | + + + + + | REFERENCE LAB | [address] | [place] | [phone] | | [facility] | Bl[address] | [address] | | | LABORATORY | | | | + + + + + | REFERENCE LAB | [address] [facility] | [place] | | | [facility] | Bl[address]. | [address] | | | LABORATORY | | | [...] [place] | | | | | | [address] | | | | + + + + + + + + | Specimen | + + | Blood | + + + + + + + | Performing | Address | City/State/Zipcode | Phone Number | | Organization | | | | + + + + + | REFERENCE LAB | [address] [place] [address] | [place], [place] | [phone] | | [facility] | Bl[address] | [address] | | | LABORATORY | | | | + + + + + | REFERENCE LAB | [address] [place] [address] | [place] | | | [facility] | Bl[address]. | [address] | | | LABORATORY | | | [...] criterion | | | | | | ([employer] | | | | | [...] | | | | | validated by [employer] | | | | | | [employer] This | | | | | [...] non-orderable. | | | | | | [facility] offers [id number] | | | | | | dsDNA Curt painter | | | | | | IFA. For further | | | | | | information, please | | | | | | contact your local | | | | | | [facility] | | | | | | Dry House Attendant.Testing | | | | | | performed at [employer] | | | | | | [facility], [address] | | | | | | [facility], [facility] | | | | | | [address] [place] [address] | | | | | | [phone]. | | | | + + + + + + + + | Specimen | + + | Blood | + + + + + + + | Performing | Address | City/State/Zipcode | Phone Number | | Organization | | | | + + + + + | REFERENCE LAB | [address] [facility] | [place] | [phone] | | [facility] | [address] | [address] | | | LABORATORY | | | | + + + + + | REFERENCE LAB | [address] [facility] | [place], [place] | | | [facility] | Bl[address] | [address] | | | LABORATORY | | | [...] | | | COMPLEMENT | performed at [facility];[address] | | LAB | | | | [place] | | [facility] | | | | Bl[address];[place] [address] | | LABORATORY | | + + + + + + + + | Specimen | + + | Blood | + + + + + + + | Performing | Address | City/State/Zipcode | Phone Number | | Organization | | | | + + + + + | REFERENCE LAB | [address] [facility] | [place] | [phone] | | [facility] | [address] | [address] | | | LABORATORY | | | | + + + + + | REFERENCE LAB | [address] [facility] | [place] | | | [facility] | Bl[address] | [address] | | | LABORATORY | | | [...] | | | Qual | performed at [facility], [address] | | LAB | | | | [address] [facility] | | [facility] | | | | [place] [address] | | LABORATORY | | + + [...] | | | | | with both MS-3 and | | | | | | [...] | | 3 Antibody | performed by [place], | | LAB | | | | [address], | | [facility] | | | | [facility] [address] | | LABORATORY | | + + + + + + + + | Specimen | + + | Blood | + + + + + + + | Performing | Address | City/State/Zipcode | Phone Number | | Organization | | | | + + + + + | REFERENCE LAB | [address] [place] [address] | [place], [place] | [phone] | | [facility] | Bl[address] | [address] | | | LABORATORY | | | | + + + + + | REFERENCE LAB | [address] [place] [address] | [place], [place] | | | [facility] | Bl[address] | [address] | | | LABORATORY | | | | + + + + + documented in this encounter Visit Diagnoses + + | Diagnosis | + + | Positive NICKIE (antinuclear antibody) Other and unspecified nonspecific immunological | | findings | + + | Pain in joint, multiple sites | + + documented in this encounter"
--- OUTSIDE RECORDS SUMMARY | ~2019-12-21 | XMS | Encounter Summary ---
Demographics + + + | Address | [address] [address] | | | [place] [address] | + + + | Home Phone [...] Team Providers + +------+ + | Care Human Resources Clerk Name | Role | Phone | [...] | | CONVERSION [address] | [address] | | | | | G[place]BY [place] | [facility] [address] | | | | | [place], [place] | [place] [address] | | | | | [address] | [phone] | | | | | [phone] | | | +--------+ + + + [...] [place] | | | | | | [address] | | | | | | | [...] | | | hypokinesis, diastolic function abnormal, [facility] visually estimates | | | LVEF 40-45%. [...] | | | hypokinesis, diastolic function abnormal, [facility] visually estimates | | | LVEF 40-45%. [...] pressures of 5-10mmHg. MEASUREMENTS | | | Plaster Machine Tender: DBS Authenticated by: Chris Link DO Report [...] | | global hypokinesis, diastolic function abnormal, [facility] visually estimates LVEF 40-45%. | | Moderate [...] venous pressures of 5-10mmHg. | | MEASUREMENTS Plaster Machine Tender: DBSAuthenticated by: Chris Reyes | | Date/Time: 02-16-2016 20:56:07 IMPRESSION: 1. See Dictation. A fib. 2. Moderate | | concentric LVH, mild global hypokinesis, diastolic function abnormal, [facility] visually | | estimates LVEF 40-45%. Moderate [...] | |MEASUREMENTS | | | | | |Plaster Machine Tender: DBS | |Authenticated by: Chris Link DO | |Report Date/Time: 02-16-2016 20:56:07 | | | |IMPRESSION: | |1. See Dictation. A fib. 2. Moderate concentric LVH, mild global hypokinesis, diastolic fu nction abnormal, [facility] visually estimates LVEF 40-45%. Moderate LAE, moderate [...]
--- OUTSIDE RECORDS SUMMARY | ~2019-12-21 | XMS | Encounter Summary ---
Demographics + + + | Address | [address] [address] | | | [place] [address] | + + + | Home Phone [...] Team Providers + +------+ + | Care Laser/Electro Optics Technician Name | Role | Phone [...] | | | | Peritoneal | | [address] Phone: | | | | | adhesion | | [phone] | | | | | Procedures | | Fax: | | | | | [place] | | [phone] | | | | | BOWEL | | | | | | | ADHESION,ENT | | | | | | | EROLYSIS [place] | | | | | | [...] 06/19/ | | [address] [place] | [address] | | | 2018 | | [address] | | | | | | [phone] | | | +--------+ + + + [...] might be different from t he original. [facility] UROLOGY DISCHARGE SUMMARY Patient Name: Lily [...] COUMADIN Discontinued Medications [place] Follow-Up: 1. [facility] in 1 week. Please call [phone] during business hours to set up your urology follow up appointm ent. Electronically Signed by: Patrice Cross MD, 06/16/2018 7:42 [facility] documented in this encou nter Discharge Instructions Instructions Teresita Rodgers RN - 06/16/2018Formatting of this note might be different f rom the original. [place] [facility] DISCHARGE INSTRUCTIONS FOLLOWING LAPAROSCOPIC REMOVAL OF [...] on your remaining kidney. CONTACT INFORMATION: - [facility] Office Number: [facility] Office: [facility] Office: FOLLOWUP INFORMATION: - Dr. Cross [...] Weakness, dizziness, or fainting Date Last Reviewed: 05/12/201619995561-9720 [employer]. [address] [place], [place] [address]. All righ ts reserved. This information is [...] out or is dislodged Date Last Reviewed: 08/12/201619999807-6127 [employer]. [address] [place] [address], [place] [address]. All righ ts reserved. This information is not intended as a substitute for professional medical care. Always follow your healthcare professional's instructions. [facility] Patient Belongings Lily Valentin 1960 Valuables Dentures: [...] Were Given To: octavio and valubles to [facility][id number] 18 Patient Signature: Clinician/Procedures Rn Signature: documented in this encounter Medications at [...] 11:59 AM PSTPt has d/c orders to [place] SNF. Pt h as sacral friction [...] 06/19/2018 7:[address] [facility] UROLOGY DAILY PROGRESS NOTE ID: Lily [...] by: Xavier Yip PA-C, 06/19/2018 7:40 [facility] Sasha Blevins, [facility] - 06/18/2018 4:52 PM PSTSOCIAL WORK D/C PLAN: SNF ([facility]) vs home NEXT STEPS: [facility] in [place], [place] has accepted pt pending insurance authorization. [...] d/c to a SNF. SW called to [facility] SNF and they are yash [place]. SW spoke to Angelika, Director at [facility]. She stated that pt is not appropr iate for home health. She recommends SNF. She also stated that pt's insurance is difficult t o work with and only authorized 1 home health visit and it took 10 plus days to get auth'ed for any other home health visits. ASSESSMENT/CHART REVIEW: 58 year old male with [employer] [place] insurance from [employer]. Pt lives with his elderly mother. Pt is bariatric. D/C TRANSPORT: jasson Matta- [phone]. SW originally asked for him to pick [...] support at home. CONTACTS: Toby Valentin, mother- [phone] Electronically signed by JOSH Mcbride 06/18/2018 4:52 [...] 4:35 PM PSTSOCIAL WORK D/C PLAN: SNF ([facility]) vs home? NEXT STEPS: Need PT to re-evaluate for disposition. PT can call this SW at [phone] to discuss d/c plan satya concerns. Awaiting returned call from [facility] SNF admissions ([phone]) re: if pt wo uld be appropriate [...] d/c to a SNF. SARAH called to [facility] SNF and they a re reviewing. SARAH spoke to Angelika, Director at [facility]. She stated that pt is not appropr iate for home health. She recommends SNF. She also stated that pt's insurance is difficult t o work with and only authorized 1 home health visit and it took 10 plus days to get auth'ed for any other home health visits. ASSESSMENT/CHART REVIEW: 58 year old male with [employer] [place] insurance from [place] [employer]. Pt lives with his elderly mother. Pt is bariatric. D/C TRANSPORT: Paxtonjasson- [phone]. SW originally asked for him to pick [...] support at home. CONTACTS: Toby Valentin, mother- [phone] Electronically signed by JOSH Mcbride 06/17/2018 4:38 PM PSTBest, Kasia Brink RN - 06/17/2018 11:33 AM PSTFormatting of this no te might be different from the original. [facility] Wound, Ostomy, & Continence Nursing [...] 1 08/17/2017 8:05 AM PST [facility] UROLOGY DAILY PROGRESS NOTE ID: Lily [...] by: Patrice Cross MD, 06/17/2018 8:05 [facility] Patrice Ag MD - 06/16 7:42 AM PST [facility] UROLOGY DAILY PROGRESS NOTE ID: Lily [...] by: Patrice Cross MD, 06/16/2018 7:42 [facility] Jack Lewis MD - 06/15/2018 8:00 AM [...] 36 sec IMAGING: All images reviewed by ca NEDA08/15/2017 Large amount of gas in intestines, [...] - 06/13/2018 12:20 PM PDT [facility] UROLOGY DAILY PROGRESS NOTE ID: Lily [...] by: Xavier Yip PA-C, 06/13/2018 12:20 [facility] Associated attestation - Patrice Cross MD - [...] - 06/12/2018 5:33 AM PDT [facility] UROLOGY DAILY PROGRESS NOTE ID: Lily [...] by: Patrice Cross MD, 06/12/2018 5:33 [facility] documented in this encou nter Plan of Treatment +--------+---------+ + + + | Date | Type | Specialty | Care Team | Description | +--------+---------+ + + + | 03/17/ | Office | Cardiology | Lorraine Clifton DO | | | 2019 | Visit | | [address] | | | | | | [place] | | | | | | [id number] | | | | | | | [...] | | | | to 3.5Performed by [facility] | | LABORATORY | | | | [address], | | [place] | | | | [place] [address] | | | | + + + + + + + + | Specimen | + + | Blood specimen | | (specimen) | + + + + + + + | Performing | Address | City/State/Zipcode | Phone Number | | Organization | | | | + + + + + | [facility] | [address] [place] [address] | [place] [address] | | | [facility] | | | | | LABORATORY [...] [facility] | | | | Performed by [facility] [address] | | SACRED | | | | [address] [place] | | HEART | | | | [address] | | MEDICAL | | | | [...] + + | [facility] | [address] [place] [address] | [place] [address] | | | [facility] | | | | | LABORATORY [...] | | | | to 3.5Performed by [facility] | | LABORATORY | | | | [address], | | [place] | | | | [place] [address] | | | | + + + + + + + + | Specimen | + + | Blood specimen | | (specimen) | + + + + + + + | Performing | Address | City/State/Zipcode | Phone Number | | Organization | | | | + + + + + | [facility] | [address] [place] [address] | [place] [address] | | | [facility] | | | | | STEPHEN [...] | | | | to 3.5Performed by [facility] | | LABORATORY | | | | [address], | | [place] | | | | [place] [address] | | | | + + + + + + + + | Specimen | + + | Blood specimen | | (specimen) | + + + + + + + | Performing | Address | City/State/Zipcode | Phone Number | | Organization | | | | + + + + + | SUSIEEDYSIKathrin [facility] | [address] | [place] [address] | | | [facility] | | | | | LABORATORY [...] [place] | | | | Performed by [facility] [address] | | SACRED [...] SACRED | [address] | [place] [address] | | | [facility]ICAL [facility]ENTER | [...] | | | | to 3.5Performed by [facility] | | LABORATORY | | | | [address], [place], | | [place] | | | | [place] [address] | | | | + + + + + + + + | Specimen | + + | Blood specimen | | (specimen) | + + + + + + + | Performing | Address | City/State/Zipcode | Phone Number | | Organization | | | | + + + + + | [facility] | [address] [place] | [place] [address] | | | [facility] | | | | | STEPHEN [...] | | MEDICAL | | | | [facility] [address] | | [place] | | | | [place] [address] | | LABORATORY | | | | [...] + + | PROVIDED[facility]E [facility] | [address] | [place] [address] | | | [facility] | | | | | LABORATORY [...] | | MEDICAL | | | | [facility] [address], | | CENTER | | | | [place] [address] | | LABORATORY | | | | [...] + + | [facility] | [address] [place] [address] | [place] [address] | | | [facility] | | | | | LABORATORY [...] | | | | to 3.5Performed by [facility] | | LABORATORY | | | | [address], | | [place] | | | | [place] [address] | | | | + + + + + + + + | Specimen | + + | Blood specimen | | (specimen) | + + + + + + + | Performing | Address | City/State/Zipcode | Phone Number | | Organization | | | | + + + + + | [facility] | [address] | [place] [address] | | | [facility] | | | | | LABORATORY [...] | | | | | seconds.Performed by [facility] | | | | | | [address], | | | | | | [place] [address] | | | | + + + + + + + + | Specimen | + + | Blood specimen | | (specimen) | + + + + + + + | Performing | Address | City/State/Zipcode | Phone Number | | Organization | | | | + + + + + | [facility] | [address] | [place] [address] | | | [facility] | | | | | LABORATORY [...] ENCE | | | Basophils | by [facility] [address], | K/uL | SACRED | | | | [place] [address] | | HEART | | | |Performed by [facility] [address], [place] [address] | | MEDICA L | | | [...] SACRED | [address] | [place] [address] | | | [facility] | | | | | [...] | | MEDICAL | | | | [facility] [address], | | CENTER | | | | [place] [address] | | LABORATORY | | | | [...] + + | [facility] | [address] | [place] [address] | | | [facility] | | | | | STEPHEN [...] PROVIDE NCE | | | | by [facility] [address], | | SACRED | | | | [place] [address] | | HEART | | | |Performed by [facility] [address], [place] [address] | | MEDICAL | | | | [...] + + | [facility] | [address] [place] [address] | [place] [address] | | | [facility] | | | | | LABORATORY [...] | | | | to 3.5Performed by [facility] | | LABORATORY | | | | [address], | | [place] | | | | [place] [address] | | | | + + + + + + + + | Specimen | + + | Blood specimen | | (specimen) | + + + + + + + | Performing | Address | City/State/Zipcode | Phone Number | | Organization | | | | + + + + + | [facility] | [address] | [place] [address] | | | [facility] | | | | | LABORATORY [...] | | MEDICAL | | | | [facility] [address], | | CENTER | | | | [place] [address] | | LABORATORY | | | | [...] + + | [facility] | [address] [place] [address] | [place] [address] | | | [facility] | | | | | LABORATORY [...] | | MEDICAL | | | | [facility] [address] [facility] [address], | | CENTER | | | | [place] [address] | | LABORATORY | | | | [...] + + | ROBERTA SACRCH[facility]ST[facility] | [address] | [place] [address] | | | [facility] | | | | | LABORATORY [...] PROVIDE NCE | | | | by [facility] [address], | | SACRED | | | | [place] [address] | | HEART | | | |Performed by [facility] [address], [place] [address] | | MEDICAL | | | | [...] + + | [facility] | [address] | [place] [address] | | | [facility] | [...] | | MEDICAL | | | | [facility] [address], | | CENTER | | | | [place] [address] | | LABORATORY | | | | [...] + + | [facility] | [address] | [place] [address] | | | [facility]ENTER | [...] [facility] | | | | Performed by [facility] [address] | | SACRED | | | | [address] [place] | | HEART | | | | [address] | | MEDICAL | | | | [...] + + | [facility] | [address] [place] [address] | [place] [address] | | | [facility] | | | | | LABORATORY [...] | | MEDICAL | | | | [facility] [address], | | CENTER | | | | [place] [address] | | LABORATORY | | | | [...] + + | [facility]ILAH [facility] | [address] | [place] [address] | | | [facility] | | | | | STEPHEN CAVANAUGH | | | | + + + + + Tissue Request For Pathology (06/11/2018 2:57 PM PDT) + + | Specimen | + + | | + + + + + | Narrative | Performed At | + + + | | [facility] | | LILY [place] | MESQUITE | | : 1960 AGE: 58 years SEX: Male | MEDICAL CENTER | | | LABORATORY | | Acct: [id number] Location: | [facility] | | [facility] SURG; 552; 552-02 Case #: | | | [id number] Ordering: PATRICE CROSS MD | | | Client: [facility] | | | Copy To: Printed: [...] | MDVerify Date: 06/18/2018 12:37 pmPerforming Location: [facility] | | | [facility], [facility] [id number] | | | DESCRIPTION:This case is received [...] | | | ureteral and renal vasculature margins.Certified Histologic Technician sections are | | | submitted [...] pelvis and sinus | | | fat. Certified Histologic Technician sections are submitted during second look [...] + + | [facility] | [address] [place] [address] | [place] [address] | | | [facility] | | | | | STEPHEN [...] | | | | | | LAB [place] | | | | | | [place] | | | | | | [facility] | | | | | | BLOOD | | | | | | CENTER | | + + + + + + | Rh Type | PositiveComment: Patient | | REFERENCE | | | | is remote crossmatch | | LAB [place] | | | | eligible | | [...] + + + | Specimen Expiration Date: [id number] | REFERENCE LAB | | | [place] | | | [facility] | | | B[facility]OD CENTER | + + + + + + + + | Performing | Address | City/State/Zipcode | Phone Number | | Organization | | | | + + + + + | REFERENCE LAB | [address] | [place] [address] | [phone] | | [place] | | | | | [facility] [...] | | | | | | LAB [place] | | | | | | [place] | | | | | | [facility] | | | | | | BLOOD | | | | | | CENTER | | + + + + + + | Rh Type | Positive | | REFERENCE | | | | | | LAB [place] | | | | | | [place] | | | | | | [facility] | | | | | | BLOOD | | | | | | CENTER | | + + + + + + | Antibody | Negative | | REFERENCE | | | Screen | | | LAB [place] | | | | | | [place] [...] + + + | Specimen Expiration Date: [id number] | REFERENCE LAB | | | [place] | | | [facility] | | | BLOOD CENTER | + + + + + + + + | Performing | Address | City/State/Zipcode | Phone Number | | Organization | | | | + + + + + | REFERENCE LAB | [address] | [place] [address] | [phone] | | [place] | | | | | [facility] [...] | | | POC | Performed by [facility] [address] | | SACR[address] | | | [address], [place] | | HEART | | | | [address] | | MEDICAL | | | | [...] + + | [facility] | [address] | [place] [address] | | | [facility] | | | | | LABORATORY [...] + + +--------+---+---+ | morphine 5 mg/mL FOOD MIXER REPAIRER syringe | Rate/Dos | 06/13/20 | 150 [...] | | | Loading Dose(mg): 0, Starting FOOD MIXER REPAIRER | | | | | | | Dose(mg): 1, Incremental | | | | | | | Increase FOOD MIXER REPAIRER Dose(mg): 0.5, | | | | | | | Maximum FOOD MIXER REPAIRER Dose(mg): 2, Lockout | | | | [...]
--- OUTSIDE RECORDS SUMMARY | ~2019-12-21 | XMS | Encounter Summary ---
Demographics + + + | Address | [address] [address] | | | [place] [address] | + + + | Home Phone [...] Team Providers + +------+ + | Care Gizzard Puller Name | Role | Phone | + +------+ + | Sarah Carroll MD | PCP | | + +------+ + Encounter Details +--------+ + + + + | Date | Type | Department | Care Team | Description | +--------+ + + + + | 06/16/ | Orders Only | [facility] | Jewel Ulloa MD | Essential | | 2019 | | NEPHROLOGY [place] | [address] [place] | hypertension with | | | | [address] | [address] [place], [place] | goal blood pressure | | | | [address] | [address] | less than 130/80 | | | | [place], [place] | | (Primary Dx); | | | | [address] | | Subclinical | | | | [phone] | | hypothyroidism; | | | | [...] [place] | | | | | | [address] | | | | | | | [...]
--- OUTSIDE RECORDS SUMMARY | ~2019-12-21 | XMS | Encounter Summary ---
Demographics + + + | Address | [address] | | | [place] [address] | + + + | Home Phone [...] [place] | | | | | [address] | | + + + + + Care Team Providers + +------+ + | Care Tower Control Operator Name | Role | Phone | [...] + + | 04/14/ | Anesthesia | [facility] | Paddy Pearson, | | | 2019 | Event | [facility] [address] | DO [address] | | | | | [place] Mailcode: | Wil Ponce | | | | | [address] for | [place], [place] | | | | | Health and Healing, | [address] | | | | | [facility] | [phone] | | | | | [place], [place] | | | | | | [address] | | | | | | [phone] | | | +--------+ + + + [...] Rd | | | | | | [place], [place] | | | | | | [address] | | | | | | [phone] | | | | | | | [...]
--- OUTSIDE RECORDS SUMMARY | ~2019-12-21 | XMS | Encounter Summary ---
Demographics + + + | Address | [address] | | | [place] [address] | + + + | Home Phone | | + + + | Preferred Language | Unknown | + + + | Marital Status | Single | + + + | Evangelical Affiliation | LDS | + + + [...] [place] | | | | | [address] | | + + + + + Care Team Providers + +------+ + | Care Medical Radiation Dosimetrist Name | Role | Phone | + [...] | | | | | | [facility] | | | | | | Hospital Admitting | | | | | | Desk Located on the | | | | | | 9th floor | | | | | | [place], [place] | | | | | | [address] | | | +--------+ + + + [...] | | | | | | [place], [place] | | | | | | [address] | | | | | | [phone] | | | | | | | | +--------+---------+ + + + documented as of this encounter Visit Diagnoses Not on filedocumented in this encounter"
--- OUTSIDE RECORDS SUMMARY | ~2019-12-21 | XMS | Encounter Summary ---
Demographics + + + | Address | [address] [address] | | | [place] [address] | + + + | Home Phone [...] + + + | Author | [facility] | | | and [place] | + + + | Organization | [facility] | | | [...] Team Providers + +------+ + | Care Pearl Fisherman Name | Role | Phone | + [...] Cardiology | combined | [address] | ANESTHESIOLOGY MEDICAL DOCTOR [address] | | | | | systolic | Aldair Castaneda | [place] | | | | | (congestive) | [place] | [address] | | | | | and | [place] [address] | [place], [place] | | | | | diastolic | Phone: | [address] Phone: | | | | | (congestive) | [phone] | [phone] | | | | | heart | Fax: | Fax: | | | | | failure | [phone] | [phone] | | | | | (HCC) 6 [...] + + | 08/17/ | Office | [facility] | Ileana Henson | Paroxysmal atrial | | 2019 | Visit | CARDIOLOGY [place] | [address] | fibrillation (HCC) | | | | [address] | [place] [address] | (Primary Dx); | | | | [address] | [place] [address] | Chronic combined | | | | [place] | [phone] | systolic and | | | | [address] | | diastolic congestive | | | | [phone] | | heart failure | | | [...] nd visit delayed due to admission at [facility] for GI bleeding. Today I reviewed [...] He is anticoagulated on Coumadin for his POM2FB5 2 VASC score of 2 which is managed by lilli Castillo's Coumadin clinic. He was hospitalized in July 2017 at [facility] for acute GI bleeding, where a [...] surgery 08/16/2017 by , colorectal surgeon in [place], with low anterior resection with open approach, did not require any Chemo or radiation, He also followed up Dr. 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 They continue to monitor his right kidney for angiomyolipoma. His current and previous testing and procedures are detailed below. Since I saw him last, he had a colonoscopy done at [facility] 07/01/2019, and developed bleedin g afterwards with blood and clot in stool. He went to the emergency room at [facility] on July 12 and was transferred to [facility]. He had a repeat endoscopy performed [...] be angiomyolipom a,,followed by Dr. Cross in [place] Denies hematuria. Denies history of benign prostatic [...] drug use. Exercises sporadically . 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 Lives with his [...] for: TOTEPI CARDIAC PROCEDURES/IMAGING Last Cath: 02/06/2017 ([facility]) Separate ostia of the left [...] 13, hematocrit 38.9, Platelets 292. Labs: 07/10/2019:( [facility]) INR: 1.29. CBC: WBC 10.26, RBC [...] his echo, and delayed as admitted to [facility] on Jul 13 for bleeding post [...] contain inadvertent rec ognition errors. Ethan ARREOLA [facility] Cardiology 08/18/2019 Sherrie kirby in this encounter [...] [place] | | | | | | [address] | | | | | | | [...]
--- OUTSIDE RECORDS SUMMARY | ~2019-12-21 | XMS | Encounter Summary ---
Demographics + + + | Address | [address] | | | [place] [address] | + + + | Home Phone [...] [place] | | | | | [address] | | + + + + + Care Team Providers + +------+ + | Care Route Process Administrator Name | Role | Phone | [...] | (Primary Dx); | | | | [facility] | [address] | Essential | | | | [address] | [place], [place] | hypertension; | | | | Mail Code: OC8PM | [address] | Congestive heart | | | | [facility] | [phone] | failure, unspecified | | | | and Healing, | | HF chronicity, | | | | Building 2 | | unspecified heart | | | | [place], [place] | | failure type (HCC); | | | | [address] | | Subclinical | | | | [phone] | | hypothyroidism; | | | | [...] sit, stand or walk. Surgery check-in location: [address], 1st Floor [facility] Surgery Check in Time: The Preoperative [...] ch as Uber/Lyft), or public transportation. An Uber/Lyft/taxicab driver does not count as the responsible [...] it is after office hours, call the [facility] nitroglycerin separator operator at [phone] and ask them to page him or [...] Proposed Procedure/Date: Colonoscopy/EGD 04/14/19 Proposed Procedure Location: [facility] HISTORY OF PRESENT ILLNESS: Aaron Latham [...] EKG: Personally reviewed [facility]" [facility]. Findings pertinent to [...] contribute to this patient's care. GEORGIANA Reynolds [facility] PB PREOPERATIVE MEDICINE CLINIC AT [address] [address] I spent time counseling the [...] Rd | | | | | | [place], [place] | | | | | | [address] | | | | | | [phone] | | | | | | | | +--------+---------+ + + + documented as of this encounter Procedures + +--------+ + + + | Procedure Name | Priori | Date/Time | Associated Diagnosis | Comments | | | ty | | | | + +--------+ + + + | CA COLLECTION VENOUS | Routin | 03/30/2019 | [...] | | | LABORATORY | | | SYRIAN | | | SERVICES, | | | [...] MDRD equation recommended by the National | [facility] | | Kidney Disease Education Program. Estimated [...] + + + + + | [facility] | [address] | [place] [address] | | | SERVICES, CORE | PARK [...] + + + | ECG | Prolonged CA interval | | [facility] DEPT | | [...] DEPT OF | [address] | [place], [place] | | | CARDIOLOGY | [address] | [address] | | + + + + + [...]
--- OUTSIDE RECORDS SUMMARY | ~2019-12-21 | XMS | Encounter Summary ---
Demographics + + + | Address | [address] | | | [place] [address] | + + + | Home Phone [...] [place] | | | | | [address] | | + + + + + Care Team Providers + +------+ + | Care Test Data Developer Name | Role | Phone | + +------+ + | Sarah Carroll MD | PCP | | + +------+ + Encounter Details +--------+ + + + + | Date | Type | Department | Care Team | Description | +--------+ + + + + | 07/01/ | Anatomic Pathology Manager | Digestive Health | [place], | Constipation, | | 2019 | | [place] at [facility] [address] | MD [address] | unspecified | | | | [address] | [address] | constipation type | | | | Mailcode: Center | [place] | (Primary Dx) | | | | for Health and | [address] | | | | | [facility] 2 | [phone] | | | | | [place], [place] | | | | | | [address] | | | | | | [phone] | | | +--------+ + + + [...] Rd | | | | | | [place], [place] | | | | | | [address] | | | | | | [phone] | | | | | | | | +--------+---------+ + + + documented as of this encounter Visit Diagnoses + + | Diagnosis | + + | Constipation, unspecified constipation type - Primary | + + documented in this encounter"
--- OUTSIDE RECORDS SUMMARY | ~2019-12-21 | XMS | Encounter Summary ---
Demographics + + + | Address | [address] [address] | | | [place] [address] | + + + | Home Phone [...] Team Providers + +------+ + | Care Turkey Pinner Name | Role | Phone | + [...] | | | | | DNA | [address] | | | | | | antibody | [place], | | | | | | positive | [place] [address] | | | | | | Peripheral | Phone: | | | | | | polyneuropat | [phone] | | | | | | hy Numbness | Fax: | | | | | | of both | [phone] | | | | | | lower [...] PHYSIATRY [address] | MD [address] | | | | | [address] | [place], [place] | | | | | [place] | [address] | | | | | [address] | | | | | | [phone] | | | +--------+ + + + [...] [place] | | | | | | [address] | | | | | | | [...]
--- OUTSIDE RECORDS SUMMARY | ~2019-12-21 | XMS | Encounter Summary ---
Demographics + + + | Address | [address] | | | [place] [address] | + + + | Home Phone [...] [place] | | | | | [address] | | + + + + + Care Team Providers + +------+ + | Care Electrical Prospecting Engineer Name | Role | Phone | [...] 07/02/ | Telephone | [facility] | [place], | Telephone follow-up | | 2019 | | [facility] [address] | MD [address] | | | | | [address] Mailcode: | [address] | | | | | [facility] | [place], [place] | | | | | Health and Healing, | [address] | | | | | Building 2 | [phone] | | | | | [place], [place] | | | | | | [address] | | | | | | [phone] | | | +--------+ + + + [...] Rd | | | | | | [place], [place] | | | | | | [address] | | | | | | [phone] | | | | | | | | +--------+---------+ + + + documented as of this encounter Visit Diagnoses Not on filedocumented in this encounter"
--- OUTSIDE RECORDS SUMMARY | ~2019-12-21 | XMS | Encounter Summary ---
Demographics + + + | Address | [address] | | | [place] [address] | + + + | Home Phone [...] [place] | | | | | [address] | | + + + + + Care Team Providers + +------+ + | Care Printing Manager Name | Role | Phone | [...] | | | [address] | [place], [place] | | | | | [place], | [address] | | | | | 4th floor [place], | [phone] | | | | | [place] [address] | | | | | | [phone] | Valentín Tatum, SONG WRITER | | | | | | [address] | | | | | | [place], | | | | | | [place] [address] | | | | | | [phone] | | | | | | | [...] Rd | | | | | | [place], [place] | | | | | | [address] | | | | | | [phone] | | | | | | | [...]
--- OUTSIDE RECORDS SUMMARY | ~2019-12-21 | XMS | Encounter Summary ---
Demographics + + + | Address | [address] [address] | | | [place] [address] | + + + | Home Phone [...] Team Providers + +------+ + | Care Hardwood Floor Layer Name | Role | Phone | + +------+ + | Sarah Carroll MD | PCP | | + +------+ + Encounter Details +--------+ + + + + | Date | Type | Department | Care Team | Description | +--------+ + + + + | 05/21/ | Orders Only | [facility] | Patrice Cross MD | Renal mass (Primary | | 2018 | | [address] | [address] | Dx); Pre-operative | | | | [address] | [address] [place] [address] | cardiovascular | | | | [place] | [address] | examination; | | | | [address] | | Pre-operative | | | | [phone] | | laboratory | | | | [...] | | | | | [address] [place] | | | | | | [address] | | | | | | | [...]
--- OUTSIDE RECORDS SUMMARY | ~2019-12-21 | XMS | Encounter Summary ---
Demographics + + + | Address | [address] | | | [place] [address] | + + + | Home Phone [...] [place] | | | | | [address] | | + + + + + Care Team Providers + +------+ + | Care Travograph Operator Name | Role | Phone | + +------+ + | Sarah Carroll MD | PCP | | + +------+ + Encounter Details +--------+ + + + + | Date | Type | Department | Care Team | Description | +--------+ + + + + | 07/01/ | Transcribe | [facility] | Transcribe | | | 2019 | Orders | [facility] [address] | Encounter, Provider, | | | | | [address] Mailcode: | [address] | | | | | OC[facility]L [facility] | [place] [address] | | | | | Health and Healing, | | | | | | Building 2 | | | | | | [place], [place] | | | | | | [address] | | | | | | [phone] | | | +--------+ + + + [...] | | 2019 | Visit | | [address] | | | | | | [address] | | | | | | [place], [place] | | | | | | [address] | | | | | | [phone] | | | | | | | [...]
--- OUTSIDE RECORDS SUMMARY | ~2019-12-21 | XMS | Encounter Summary ---
Demographics + + + | Address | [address] | | | [place] [address] | + + + | Home Phone [...] [place] | | | | | [address] | | + + + + + Care Team Providers + +------+ + | Care Memorial Designer Name | Role | Phone | [...] | | | | | [address] | | | | | | [address] | | | | | | [place], | | | | | | [address] floor [facility] | | | | | | [place] [address] | | | | | | [phone] | | | +--------+ + + + [...] Rd | | | | | | [place], [place] | | | | | | [address] | | | | | | [phone] | | | | | | | | +--------+---------+ + + + documented as of this encounter Visit Diagnoses Not on filedocumented in this encounter"
--- OUTSIDE RECORDS SUMMARY | ~2019-12-21 | XMS | Encounter Summary ---
Demographics + + + | Address | [address] [address] | | | [place] [address] | + + + | Home Phone [...] Team Providers + +------+ + | Care Shear Grinder Operator Name | Role | Phone | [...] | Services | Therapy | Spinal | [facility] | HOSPITAL | | | Required | | stenosis of | [place] | PHYSICAL | | | | | lumbar | [address] | THERAPY [address] | | | | | region | [address] | [place] | | | | | without | [place] | [place], [place] | | | | | neurogenic | [place], [place] | [address] | | | | | claudication | [address] | Phone: | | | | | Lumbar | Phone: | [phone] | | | | | herniated | [phone] | Fax: | | | | | disc Lumbar | Fax: | [phone] | | | | | | [phone] | | | | | | radiculopath [...] | | | | | lumbar | [address] | [address] | | | | | region with | [place], | [place], | | | | | neurogenic | [place] [address] | [place] [address] | | | | | claudication | Phone: | Phone: | | | | | Lumbar | [phone] | [phone] | | | | | radiculopath | Fax: | Fax: | | | | | y Bilateral | [phone] | [phone] | | | | | foot-drop | | | + + + + + + + Encounter Details +--------+---------+ + + + | Date | Type | Department | Care Team | Description | +--------+---------+ + + + | 10/12/ | Office | [facility] | Cordell Pedraza | Spinal stenosis of | | 2019 | Visit | NEUROSURGERY [address] | [address] [place] [address] | lumbar region | | | | [address] | [address] | without neurogenic | | | | [place], [place] | [place] | claudication | | | | [address] | [address] | (Primary Dx); Lumbar | | | | [phone] | | herniated disc; | | | [...] program. 2. Proceed with follow-up appointment at [facility] spine clinic. Please have records to our cl inic sent following the appointment. 3. Follow-up appointment in approximately 6 months documented in this encounter Progress Notes Cordell Pedraza MD - 10/13/2019 12:45 PM PST Cordell Pedraza MD [address] [facility], [address] [place] [address] FAX: [phone] NEUROSURGERY HISTORY AND PHYSICAL EXAMINATION CHIEF COMPLAINT: [...] for evaluation at the spine clinic at [facility] in May 2019 and has not [...] FLEXIBLE SIGMOIDOSCOPY; Surgeon: Mehul Bowles MD; Location: [facility] MAIN OR COLONOSCOPY 05/22/2017 COLONOSCOPY 07/01/2019 Dr Gilbert, [facility]: Large 3 cm flat ascending colon [...] AD HESIONS; Surgeon: Patrice Cross MD; Location: [facility] MAIN OR Unlisted Procedure Arthroscopy CURRENT [...] has no apparent deficits with short or watermelon inspector memory. CRANIAL NERVES: II: Acuity is intact. [...] Intrinsics 3 5 Ulnar Intrinsics 2-3 5 Travel Services Professional Strength 5 5 Hip Flexion 4 4 [...] spent over 45 minutes with him in [facility] office today greater than 50% [...] arrange closer to his h ome in [place]. Activity precautions, exercises and signs and symptoms to watch for have been fully discussed. He will notify our office if any significant changes occur. He has not yet had his follow-up appointment at [facility] spine clinic and is going to [...] [place] | | | | | | [address] | | | | | | | [...]
--- OUTSIDE RECORDS SUMMARY | ~2019-12-21 | XMS | Encounter Summary ---
Demographics + + + | Address | [address] | | | [place] [address] | + + + | Home Phone [...] [address] | | | | | [address] | | + + + + + Care Team Providers + +------+ + | Care Pulmonary Physician Name | Role | Phone | [...] Rd | | | | | | [place], [place] | | | | | | [address] | | | | | | [phone] | | | | | | | | +--------+---------+ + + + documented as of this encounter Visit Diagnoses Not on filedocumented in this encounter"
--- OUTSIDE RECORDS SUMMARY | ~2019-12-21 | XMS | Encounter Summary ---
Demographics + + + | Address | [address] | | | [place] [address] | + + + | Home Phone [...] [address] | | | | | [address] | | + + + + + Care Team Providers + +------+ + | Care Knowledge Architect Name | Role | Phone | [...] | | | | | | [facility] | | | | | | Hospital Admitting | | | | | | Desk Located on the | | | | | | 9th floor | | | | | | [place], [place] | | | | | | [address] | | | +--------+ + + + [...] Rd | | | | | | [place], [place] | | | | | | [address] | | | | | | [phone] | | | | | | | | +--------+---------+ + + + documented as of this encounter Visit Diagnoses Not on filedocumented in this encounter"
--- OUTSIDE RECORDS SUMMARY | ~2019-12-21 | XMS | Encounter Summary ---
Demographics + + + | Address | [address] [address] | | | [place] [address] | + + + | Home Phone [...] Team Providers + +------+ + | Care Boom Tender Name | Role | Phone | [...] | | | | | hy, | [address] | [address] | | | | | unspecified | [place], | [place], [place] | | | | | Elevated | [place] [address] | [address] | | | | | C-reactive | Phone: | Phone: | | | | | protein | [phone] | [phone] | | | | | (CRP) Other | Fax: | Fax: | | | | | specified | [phone] | [phone] | | | | | abnormal | [...] + + | 05/04/ | Office | [facility] | Arturo Gray | Positive NICKIE | | 2019 | Visit | RHEUMATOLOGY [address] | MD Tien [address] | (antinuclear | | | | [address] | [address] | antibody) (Primary | | | | [place] | [place] [address] | Dx); Chronic kidney | | | | [address] | [phone] | disease, stage 3 | | | | [phone] | | (HCC); SS-B antibody | | [...] encounter Patient Instructions Patient Instructions Serena Forman, Supervisor Filtration - 05/04/2019 8:30 AM JUANCARLOSWe hope t hat you have experienced exceptional care today and that you found our service to be courteo us and helpful. If you have any questions, you can send us a message/request using [employer] or call our o ffice at [phone]. To reach the Supervisor Filtration , dial [phone] - [phone]- Serena Jose J GARRISON If you are [...] You can also review your results on Lov[employer]. 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 s time. I reassured patient that [...] CHAN | | | | | | [address] | | | | | | | [...] - 1.030 | REFERENCE | | | [place], | | | LAB | | | [...] REFERENCE | | | | performed at [facility];[address] | | LAB | | | | [place] | | [facility] | | | | [address];[place] [address] | | LABORATORY | | + + + + + + + + | Specimen | + + | Urine | + + + + + + + | Performing | Address | City/State/Zipcode | Phone Number | | Organization | | | | + + + + + | REFERENCE LAB | [address] | [place] | [phone] | | [facility] | [address] | [address] | | | LABORATORY | | | | + + + + + | REFERENCE LAB | [address] | [place] | | | [facility] | [address] | [address] | | | LABORATORY | | | [...] | | | RATIO,URINE | performed at [facility];[address] | | LAB | | | | [facility] | | [facility] | | | | Bl;[place] [address] | | LABORATORY | | + + + + + + + + | Specimen | + + | Urine | + + + + + + + | Performing | Address | City/State/Zipcode | Phone Number | | Organization | | | | + + + + + | REFERENCE LAB | [address] [place] [address] | [place], [place] | [phone] | | [facility] | [address] | [address] | | | LABORATORY | | | | + + + + + | REFERENCE LAB | [address] [place] [address] | [place], [place] | | | [facility] | [address] | [address] | | | LABORATORY | | | [...] REFERENCE | | | | performed at [facility];[address] | | LAB | | | | [place] | | [facility] | | | | [address];[place] [address] | | LABORATORY | | + + + + + + + + | Specimen | + + | Blood | + + + + + + + | Performing | Address | City/State/Zipcode | Phone Number | | Organization | | | | + + + + + | REFERENCE LAB | [address] [facility] | [place] | [phone] | | [facility] | [address] | [address] | | | LABORATORY | | | | + + + + + | REFERENCE LAB | [address] [facility] | [place] | | | [facility] | [address] | [address] | | | LABORATORY | | | [...] | LAB | | | | [facility] | | [facility] | | | | [place] [address] | | LABORATORY | | + + [...] | | | | | with both CA-3 and | | | | | | [...] | | 3 Antibody | performed by [facility], | | LAB | | | | [address], | | [facility] | | | | [facility] [address] | | LABORATORY | | + + + + + + + + | Specimen | + + | Blood | + + + + + + + | Performing | Address | City/State/Zipcode | Phone Number | | Organization | | | | + + + + + | REFERENCE LAB | [address] [place] [address] | [place], [place] | [phone] | | [facility] | [address] | [address] | | | LABORATORY | | | | + + + + + | REFERENCE LAB | [address] [place] [address] | [place], [place] | | | [facility] | [address] | [address] | | | LABORATORY | | | [...] | | | COMPLEMENT | performed at [facility];[address] | | LAB | | | | [place] | | [facility] | | | | [address];[place] [address] | | LABORATORY | | + + + + + + + + | Specimen | + + | Blood | + + + + + + + | Performing | Address | City/State/Zipcode | Phone Number | | Organization | | | | + + + + + | REFERENCE LAB | [address] [place] [address] | [place], [place] | [phone] | | [facility] | [address] | [address] | | | LABORATORY | | | | + + + + + | REFERENCE LAB | [address] [place] [address] | [place], [place] | | | [facility] | [address] | [address] | | | LABORATORY | | | [...] criterion | | | | | | ([employer] | | | | | [...] | | | | | validated by [email or web address] | | | | | | Diagnostics, [...] by | | | | | | [email or web address] | | | | | | Inc.June | | | | | | 4, 2019 dsDNA (nDNA) | | | | | | Scrn by Curt will | | | | | | be made non-orderable. | | | | | | [facility] offers [id number] | | | | | | dsDNA Curt perez | | | | | | IFA. For further | | | | | | information, please | | | | | | contact your local | | | | | | [facility] | | | | | | Hotel Or Motel Manager.Testing | | | | | | performed at [facility] | | | | | | [email or web address], [address] | | | | | | [employer] [facility], [facility] | | | | | | [address],[place], [place] | | | | | | [address]. | | | | + + + + + + + + | Specimen | + + | Blood | + + + + + + + | Performing | Address | City/State/Zipcode | Phone Number | | Organization | | | | + + + + + | REFERENCE LAB | [address] [facility] | [place] | [phone] | | [facility] | [address] | [address] | | | LABORATORY | | | | + + + + + | REFERENCE LAB | [address] [facility] | [place] | | | [facility] | [address] | [address] | | | LABORATORY | | | [...] | | | | | | at [facility], [address] | | | | | | [place] | | | | | | [address] | | | | + + + + + + + + | Specimen | + + | Blood | + + + + + + + | Performing | Address | City/State/Zipcode | Phone Number | | Organization | | | | + + + + + | REFERENCE LAB | [address] | [place] | [phone] | | [facility] | [address] | [address] | | | LABORATORY | | | | + + + + + | REFERENCE LAB | [address] [facility] | [place] | | | [facility] | [address] | [address] | | | LABORATORY | | | [...] W | | | | | | [facility] | | | | | | [place] [address] | | | | + + + + + + + + | Specimen | + + | Blood | + + + + + + + | Performing | Address | City/State/Zipcode | Phone Number | | Organization | | | | + + + + + | REFERENCE LAB | [address] [facility] | [place], [place] | [phone] | | [facility] | [address] | [address] | | | LABORATORY | | | | + + + + + | REFERENCE LAB | [address] [facility] | [place] | | | [facility] | [address] | [address] | | | LABORATORY | | | [...] REFERENCE | | | | performed at [facility];[address] | | LAB | | | | [place] | | [facility] | | | | Bl[address];[place] [address] | | LABORATORY | | + + + + + + + + | Specimen | + + | Blood | + + + + + + + | Performing | Address | City/State/Zipcode | Phone Number | | Organization | | | | + + + + + | REFERENCE LAB | [address] [facility] | [place] | [phone] | | [facility] | [address] | [address] | | | LABORATORY | | | | + + + + + | REFERENCE LAB | [address] [facility] | [place] | | | [facility] | [address] | [address] | | | LABORATORY | | | [...] REFERENCE | | | | performed at [facility];[address] | | LAB | | | | [place] | | [facility] | | | | Blvd;[place] [address] | | LABORATORY | | + + + + + + + + | Specimen | + + | Blood | + + + + + + + | Performing | Address | City/State/Zipcode | Phone Number | | Organization | | | | + + + + + | REFERENCE LAB | [address] [place] [address] | [place], [place] | [phone] | | [facility] | [address] | [address] | | | LABORATORY | | | | + + + + + | REFERENCE LAB | [address] [place] [address] | [place], [place] | | | [facility] | [address] | [address] | | | LABORATORY | | | [...] | | | | | performed at [facility];[address] | | | | | | [facility] | | | | | | Blvd;[place] [address] | | | | | | | | | | + + + + + + + + | Specimen | + + | Blood | + + + + + + + | Performing | Address | City/State/Zipcode | Phone Number | | Organization | | | | + + + + + | REFERENCE LAB | [address] [facility] | [place] | [phone] | | [facility] | [address] | [address] | | | LABORATORY | | | | + + + + + | REFERENCE LAB | [address] | [place] | | | [facility] | [address] | [address] | | | LABORATORY | | | [...] | | | Absolute | performed at [facility];[address] | K/uL | LAB | | | | [place] | | [facility] | | | | [address];[place] [address] | | LABORATORY | | + + + + + + + + | Specimen | + + | Blood | + + + + + + + | Performing | Address | City/State/Zipcode | Phone Number | | Organization | | | | + + + + + | REFERENCE LAB | [address] [facility] | [place] | [phone] | | [facility] | [address] | [address] | | | LABORATORY | | | | + + + + + | REFERENCE LAB | [address] | [place] | | | [facility] | [address] | [address] | | | LABORATORY | | | [...]
--- OUTSIDE RECORDS SUMMARY | ~2019-12-21 | XMS | Encounter Summary ---
Demographics + + + | Address | [address] | | | [place] [address] | + + + | Home Phone [...] [address] | | | | | [address] | | + + + + + Care Team Providers + +------+ + | Care Yard Assistant Name | Role | Phone | [...] | | | | | | [place] [address] | | | +--------+--------+ + + + [...] Rd | | | | | | [place] | | | | | | [address] | | | | | | [phone] | | | | | | | | +--------+---------+ + + + documented as of this encounter Visit Diagnoses Not on filedocumented in this encounter"
--- OUTSIDE RECORDS SUMMARY | ~2019-12-21 | XMS | Encounter Summary ---
Demographics + + + | Address | [address] | | | [place] [address] | + + + | Home Phone [...] [address] | | | | | [address] | | + + + + + Care Team Providers + +------+ + | Care Tractor Trailer Moving Van Driver Name | Role | Phone | [...] Pre-operative | | 2019 | cheduled | [facility] at | | evaluation | | | | [facility] | | | | | | [address] | | | | | | Mail Code: OC8PM | | | | | | [facility] | | | | | | and Healing, | | | | | | Building [address] | | | | | | [place], [place] | | | | | | [address] | | | | | | [phone] | | | +--------+ + + + [...] have not received them, contact Endoscopy at [phone]. Eating/Drinking Instructions: Follow instructions provided by [facility] Endoscopy. You should have received these instruction s by mail or email. If you have not received them, contact Endoscopy at [phone]. General Medications Instructions Oral iron: If you [...] /Eliquis, rivaroxaban/Xarelto, dabigatran/Pradaxa, or Plavix/Brilinta, your prescriber ([facility] doctor, linoleum printer, anticoagulation clinic, ex.) should be the one [...] you are taking, please contact our of urth. Other Important Guidelines Do not smoke, drink [...] your procedu re. Procedure check-in location: [facility] 2 Procedure Check in [...] ch as Uber/Lyft), or public transportation. An Uber/Lyft/dedicated regional driver does not count as the r [...] office hours, call the [facility] database operator at [phone] and ask them to page the on-c [...] [address] | | | | | | [place], [place] | | | | | | [address] | | | | | | [phone] | | | | | | | | +--------+---------+ + + + documented as of this encounter Visit Diagnoses Not on filedocumented in this encounter
--- OUTSIDE RECORDS SUMMARY | ~2019-12-21 | XMS | Encounter Summary ---
Demographics + + + | Address | [address] | | | [place] [address] | + + + | Home Phone [...] [address] | | | | | [address] | | + + + + + Care Team Providers + +------+ + | Care Inseam Trimmer Name | Role | Phone | [...] | | | | | colon | [facility] | [facility] | | | | | Procedures | Rd | Rd | | | | | CONSULT TO | [place], [place] | [place], [place] | | | | | [place] | [address] | [address] | | | | | LOGY | Phone: | Phone: | | | | | CONSULT TO | [phone] | [phone] | | | | | [place] | Fax: | Fax: | | | | | [place] | [phone] | [phone] | + +--------+ + + + + [...] | | colon | [address] | [place] | | | | | Procedures | [place], [place] | [place], [address]th | | | | | CONSULT TO | [address] | floor | | | | | GI PROCEDURE | Phone: | [place], [place] | | | | | UNIT: | [phone] | [address] | | | | | COLONOSCOPY | Fax: | Phone: | | | | | | [phone] | [phone] | | | | | | | Fax: | | | | | | | [phone] | + +--------+ + + + + [...] adenoma of | MD Tala | [address] | | | | | colon | [address] | [address] | | | | | | Joel Castaneda | Mailcode: | | | | | | [place] | [facility] | | | | | | [place] [address] | [facility] and | | | | | | Phone: | Healing, | | | | | | [phone] | Building 2 | | | | | | Fax: | [place], [place] | | | | | | [phone] | [address] | | | | | | | Phone: | | | | | | | [phone] | | | | | | | Fax: | | | | | | | [phone] | +--------+--------+ + + + + Encounter Details +--------+---------+ + + + | Date | Type | Department | Care Team | Description | +--------+---------+ + + + | 02/05/ | Office | Digestive Health | Tsikitis, | Villous adenoma of | | 2019 | Visit | [place] [facility] [address] | MD Justyn [address] | colon (Primary Dx) | | | | [address] | [address] | | | | | Mailcode: Center | [facility] [place] | | | | | for Health and | [address] | | | | | Healing, Building 2 | [phone] | | | | | [place], [place] | | | | | | [address] | | | | | | [phone] | | | +--------+---------+ + + + [...] history per Note of Dr. Carroll from [facility]: 11/18/18: Seen Dr. Cohen for colonoscopy consult and scheduled for procedure at the hospital given his multiple comorbidities. 12/11/18: Onset of right lower back pain after exiting his truck awkwardly. Seen at ED of [facility] for scheduled colonoscopy. Incidentally also [...] Widely patent coloproctectomy. 01/05/19: Dr. Cohen at [facility] and recommended referral to [facility] for surgical ma nagement with method consultant and medical office representative for tubular adenoma of cecum with underlying CO PD and CHF. 01/08/19: follow up with Dr. Carroll and referred to GI Surgery Dr. Thompson at [facility] REVIEW OF SYSTEMS: As per HPI, otherwise [...] with me LEONARDA Mcgraw, MS3 [facility], [facility] [employer] Padilla Ko MD General [...] Rd | | | | | | [place], [place] | | | | | | [address] | | | | | | [phone] | | | | | | | | +--------+---------+ + + + documented as of this encounter Visit Diagnoses + + | Diagnosis | + + | Villous adenoma of colon - Primary Benign neoplasm of colon | + + documented in this encounter
--- OUTSIDE RECORDS SUMMARY | ~2019-12-21 | XMS | Encounter Summary ---
Demographics + + + | Address | [address] | | | [place] [address] | + + + | Home Phone [...] [address] | | | | | [address] | | + + + + + Care Team Providers + +------+ + | Care Auto Self Service Station Attendant Name | Role | Phone | [...] | | | [address] | [place], [place] | | | | | [place], | [address] | | | | | 4th floor [place], | [phone] | | | | | [place] [address] | | | | | | [phone] | Valentín Tatum, DESIGN COORDINATOR | | | | | | [address] | | | | | | [place]ario [place], | | | | | | [place] [address] | | | | | | [phone] | | | | | | | [...] Rd | | | | | | [place], [place] | | | | | | [address] | | | | | | [phone] | | | | | | | [...]
--- OUTSIDE RECORDS SUMMARY | ~2019-12-21 | XMS | Encounter Summary ---
Demographics + + + | Address | [address] [address] | | | [place] [address] | + + + | Home Phone [...] Providers + +------+ + | Care Commercial Engineer Name | Role | Phone | [...] [place] | | | | | [place], [place] | [address] | | | | | [address] | | | | | | [phone] | | | +--------+ + + + [...] [place] | | | | | | [address] | | | | | | | [...] | e': 0.05 m/s Lateral E/e': 14.38 Mortgage Loan Officer Originator: | | | Authenticated by: PRAFUL CURZ MD Report Date/Time: -- | | | [id number]:42 | | + + + + + [...] | 5.27 cmLVPWd: 1.53 cmLVOT Area: 3.98 [id number] Diam: 2.25 cm%FS: 29.74 %EF(Teich): | | [...] (A-L): 19.51 ml/m2LAAs | | A2C: 15.25 [id number] A-L A2C: 42.23 mlLALs A2C: 4.67 cmLAAs A4C: 19.09 [id number] | | A-L A4C: 57.52 mlLALs A4C: 5.38 cmRAAs: 18.09 [id number] A-L: 55.31 mlRAESV MOD: | | 52.35 mlRALs: 5.02 cmTAPSE: 2.41 cmAV maxP.54 mmHgAV meanP.73 mmHgAV | | Vmax: 1.62 m/Kristy Vmean: 1.12 m/Kristy VTI: 27.29 cmAVA Vmax: 3.41 cm2AVA (VTI): | | 4.05 [id number] Vmax: 0.00 cm2/m2AVAI (VTI): 0.00 cm2/m2LVOT maxP.71 mmHgLVOT | | meanP.84 mmHgLVSI Dopp: 40.80 ml/m2LVSV Dopp: 110.56 mlLVOT Vmax: 1.38 | | m/sLVOT Vmean: 1.04 m/sLVOT VTI: 27.72 cmMV A Zack: 0.79 m/sMV DecT: 349.62 msMV | | E Zack: 0.74 m/sMV E/A Ratio: 0.93MV PHT: 101.39 msMVA By PHT: 2.16 [id number] e': | | 0.04 m/sSeptal E/e': 16.78Lateral e': 0.05 m/sLateral E/e': 14.38 | | Mortgage Loan Officer Originator:Authenticated by: Tiesha BOOTHE Date/Time: -- | | [id number]:42 IMPRESSION: 1. Overall left ventricular systolic function [...] | |Lateral E/e': 14.38 | | | |Mortgage Loan Officer Originator: | |Authenticated by: PRAFUL CRUZ MD | |Report Date/Time: -- [id number]:42 | | | |IMPRESSION: | |1. Overall [...]
--- OUTSIDE RECORDS SUMMARY | ~2019-12-21 | XMS | Encounter Summary ---
Demographics + + + | Address | [address] | | | [place] [address] | + + + | Home Phone [...] [address] | | | | | [address] | | + + + + + Care Team Providers + +------+ + | Care Captain Waiter Name | Role | Phone | + [...] Rd | | | | | | [place], [place] | | | | | | [address] | | | | | | [phone] | | | | | | | | +--------+---------+ + + + documented as of this encounter Visit Diagnoses Not on filedocumented in this encounter"
[~2019-12-21 20:24] MED LIST changes: +FISH OIL 1,0001 EAC3 PO
--- OUTSIDE RECORDS SUMMARY | 2019-12-21 20:28 | XMS ---
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 Care History Medical/Surgical 07/13/2019 [facility] Patient had canceled 07/16/[address] Gutierrez.\T\nbsp; Patient is waiting to hear reschedule date post [facility] visit. 08/25/2018 [facility] - Patient is currently established with [facility]. If patient is seen in the ED during business hours. Please contact [facility] at [facility]. Care Recommendation: This patient has had 5 [...] care E.D. VISIT COUNT (12 MO.) [address] [facility] TOTAL 4 NOTE: Visits indicate total known visits. 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 rectal bleed, post colonoscopy, polyp removal, 9 days ago [address]1959. Gastrointestinal hemorrhage, unspecified [email or web address]
== END 2019-12-21 22:46 | disposition home or self-care (01) ==
LOC: ED 20:24
DX: S92.514D Nondisplaced fracture of proximal phalanx of right lesser toe(s), subsequent encounter for fracture with routine healing (principal); I10 Essential (primary) hypertension; I50.9 Heart failure, unspecified; D64.9 Anemia, unspecified; E03.9 Hypothyroidism, unspecified; G47.30 Sleep apnea, unspecified; Z87.891 Personal history of nicotine dependence; Z79.899 Other long term (current) drug therapy; Z79.01 Long term (current) use of anticoagulants
CPT/HCPCS: 82550; 85610; 99283

== ENCOUNTER 2021-06-10 14:23 | Emergency (ER) | payer MEDICARE, BC ==
[~2021-06-10] VITALS: Ht 180.3 cm; Wt 151.2 kg
[~2021-06-10 14:23] MED LIST changes: +GABAPENTIN100 MG PO; +GLIPIZIDE ER2.5 MG PO
--- NOTE | 2021-06-10 18:13 | EKG ---
[facility] [address] [facility] [place] [address] Signed Atrial flutter with variable AV block Left axis deviation Right bundle branch block Inferior infarct (cited on or before 19-DEC-2019) Anterior infarct (cited on or before 19-DEC-2019) Abnormal ECG When compared with ECG of 19-DEC-2019 08:45, Atrial flutter has replaced Sinus rhythm Questionable change in initial forces of Lateral leads T wave inversion no longer evident in Anterior leads QT has shortened Confirmed by JOVI THURMAN MD ([id number]) on 06/10/2021 6:13:29 PM Electronically Signed By: JOVI THURMAN MD 06/10/21 1813 PATIENT NAME: LILY VALENTIN Electrocardiogram DATE OF : 62 PHYSICIAN: JOVI THURMAN MD REPORT #: [id number] REPORT IS CONFIDENTIAL AND NOT TO BE RELEASED WITHOUT AUTHORIZATION
== END 2021-06-10 16:22 | disposition home or self-care (01) ==
LOC: ED 14:23
DX: I48.92 Unspecified atrial flutter (principal); I11.0 Hypertensive heart disease with heart failure; I50.9 Heart failure, unspecified; E66.9 Obesity, unspecified; G47.30 Sleep apnea, unspecified; D64.9 Anemia, unspecified; E03.9 Hypothyroidism, unspecified; Z87.891 Personal history of nicotine dependence; Z79.899 Other long term (current) drug therapy; Z79.01 Long term (current) use of anticoagulants; Z79.52 Long term (current) use of systemic steroids
CPT/HCPCS: 80048; 83735; 84484; 85025; 85610; 93005; 93010; 99285-25

== ENCOUNTER 2021-07-26 12:50 | Emergency (ER) | payer MEDICARE, BC ==
[~2021-07-26] VITALS: Ht 180.3 cm; Wt 144.7 kg
[2021-07-26] MEDS ORDERED: OFLOXACIN5 M1 OP (13:20)
[2021-07-26] MEDS ORDERED: FEROSUL325 MG PO (13:20)
--- NOTE | 2021-07-26 19:44 | EKG ---
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
== END 2021-07-26 15:25 | disposition home or self-care (01) ==
LOC: ED 12:50
DX: I48.91 Unspecified atrial fibrillation (principal); I11.0 Hypertensive heart disease with heart failure; I50.9 Heart failure, unspecified; R06.00 Dyspnea, unspecified; E66.9 Obesity, unspecified; G47.30 Sleep apnea, unspecified; D64.9 Anemia, unspecified; E03.9 Hypothyroidism, unspecified; Z87.891 Personal history of nicotine dependence; Z79.899 Other long term (current) drug therapy; Z79.01 Long term (current) use of anticoagulants
CPT/HCPCS: 71045; 80053; 81001; 83735; 83880; 84484; 85025; 85610; 93005; 93010; 99285-25

== ENCOUNTER 2021-08-29 05:53 | Day surgery (SDC) | payer MEDICARE, BC ==
[~2021-08-29] VITALS: Ht 180.3 cm; Wt 152.3 kg
--- NOTE | ~2021-08-29 | OR ---
[facility] [address] [place], [place] [address] Draft DATE OF OPERATION: 08/29/2021 SURGEON: Lily Villa MD PREOPERATIVE DIAGNOSES: 1. History of sigmoid colectomy for malignancy ([place], [place] 2017). 2. History of villous adenoma of cecum in 2019. 3. Morbid obesity, severe sleep apnea syndrome. POSTOPERATIVE DIAGNOSES: 1. Sessile polyp of right colon (excised). 2. Two small polyps of left colon (18 cm). PROCEDURES: Total colonoscopy to cecum with hot snare polypectomy x1 and cold morcellation polypectomy x2. ANESTHESIA: Intravenous sedation, propofol infusion; Musa Yousif CRNA INDICATIONS: This 61-year-old white man is morbidly obese with a BMI of 46, weighing 330 pounds and 5 feet 11 inches tall. He is known to me from the past having had a rather complex cecal villous adenoma which has been endoscopically resected elsewhere. Additionally, he underwent sigmoid resection in 2017 in [place], [place] for malignancy. He has also had a partial nephrectomy for renal neoplasm. He is admitted at this time for surveillance colonoscopy upon referral from Dr. Kendall Gutierrez. He understands the risks of bleeding, infection, and perforation related to colonoscopy and wished to proceed. Notably, the patient has advanced medical problems for which propofol sedation with sedation is required. FINDINGS: The prep was adequate. Complete colonoscopy was undertaken to the cecum. There was a sessile polyp of the right colon which was excised with hot snare technique completely. There were two small polyps at about 18 cm in the dread at any oh sigmoid that were extracted with cold morcellation technique. There were no other findings of concern. The previous anastomosis of the ileoproctostomy was well patent. DESCRIPTION OF PROCEDURE: The patient was brought to the surgical endoscopy suite and placed in lateral decubitus PATIENT NAME: LILY VALENTIN OPERATIVE REPORT DATE OF : 62 REPORT #: [id number] PHYSICIAN: LILY VILLA MD PCP: KENDALL GUTIERREZ MD REPORT IS CONFIDENTIAL AND NOT TO BE RELEASED WITHOUT AUTHORIZATION [facility] [address] [place], [place] [address] Draft position, given intravenous sedation by propofol infusional technique with full cardiopulmonary monitoring. Digital rectal examination was normal. An Olympus video colonoscope was passed in the rectum and manipulated into identifying the coloproctostomy, which was widely patent. The scope was advanced beyond this ultimately to the cecum. Ileocecal valve was carefully examined and as was the cecum and there was no sign of bulky neoplasm. The scope was withdrawn and in the mid right colon was a sessile polyp this was excised with hot snare polypectomy technique completely. It was passed for pathology. Further withdrawal of the scope showed no abnormality until approximately 18 cm from the anal verge where there were two small polyps, both were excised with cold morcellation technique. Retroflexed view of the rectum was normal. Scope was removed and the patient was taken to the recovery room in good condition. CONCLUDING DIAGNOSES: 1. Polyps x3. 2. Advanced medical comorbidities including obesity, sleep apnea and others. PLAN: Recommend repeat colonoscopy in 5 years sooner if clinically indicated. He will return to the ongoing care of Dr. Kendall Gutierrez. Lily Villa MD JM/MODL /[id number] cc: Kendall Gutierrez MD Copies: KENDALL GUTIERREZ MD ~ PATIENT NAME: LILY VALENTIN OPERATIVE REPORT DATE OF : 62 REPORT #: [id number] PHYSICIAN: LILY VILLA MD PCP: KENDALL GUTIERREZ MD REPORT IS CONFIDENTIAL AND NOT TO BE RELEASED WITHOUT AUTHORIZATION
[~2021-08-29 05:53] MED LIST changes: +FEROSUL325 MG PO; +LOVENOX30 MG/0.3; +OFLOXACIN5 M1 OP
--- NOTE | 2021-08-29 08:54 | NUR ---
08/29/21 0854 Misty Velasquez 0834 PT ARRIVED IN PACU NON RESPONSIVE TO NOXIOUS STIMULI WITH OPA IN PLACE. 0844 PT REACTIVE. OPA REMOVED. 0850 PT AWAKE AND TALKING TO STAFF. NO C/O'S.
--- NOTE | 2021-08-30 17:25 | PATH ---
[facility] [address] [place], [place] [address] Signed SPECIMEN(S): A CECAL BIOPSY SPECIMEN(S): B ASCENDING/RIGHT COLON POLYP SPECIMEN(S): C CECAL POLYP AT 18 CM X2 SPECIMEN SOURCE: A. CECAL BIOPSY B. ASCENDING/RIGHT COLON POLYP C. CECAL POLYP AT 18 CM X2 CLINICAL HISTORY: Colonoscopy. Hx: colon CA, history of colectomy. Post: Polyps x 3. FINAL PATHOLOGIC DIAGNOSIS: A. Colon, cecum, biopsy: - Colonic mucosa with no histopathologic abnormality. - Negative for active, chronic, or microscopic colitis. - Negative for dysplasia or malignancy. B. Colon, ascending/right, polyp, polypectomy: - Tubular adenoma. - Negative for high-grade dysplasia or malignancy. C. Colon, cecum, polyps x2 at 18 cm: - Fragments of hyperplastic polyp(s). - Negative for dysplasia or malignancy. NAL:bg:C2NR MICROSCOPIC EXAMINATION: Histologic sections of all submitted blocks are examined by light microscopy. These findings, together with the gross examination, support the pathologic diagnosis. GROSS DESCRIPTION: Three specimens are received in three containers, labeled "JR." A. The specimen, labeled "JR, 1," and designated on the requisition "cecal," is received in formalin and consists of one ramirez soft tissue fragment that measures 0.3 cm in greatest dimension. The specimen is entirely submitted in cassette (A1). B. The specimen, labeled "JR, 2," and designated on the requisition "ascending/right colon polyp," is received in formalin and consists of one polypoid, ramirez soft tissue fragment that measures 0.6 cm in greatest dimension. The specimen is black, bisected, and entirely submitted in cassette (B1). Friable fragments. PATIENT NAME: LILY VALENTIN PATHOLOGY DATE OF : 62 REPORT #: [id number] PHYSICIAN: MAC PATHOLOGY PCP: KENDALL GUTIERREZ MD REPORT IS CONFIDENTIAL AND NOT TO BE RELEASED WITHOUT AUTHORIZATION [facility] [address] [place], [place] [address] Signed C. The specimen, labeled "JR, 3," and designated on the requisition "cecum polyp at 18 cm," is received in formalin and consists of three ramirez soft tissue fragments that measure 0.2-0.3 cm in greatest dimension. The specimen is entirely submitted in cassette (C1). AT (under the direct supervision of a pathologist) The Gross Description was prepared using a voice recognition system. The report was reviewed for accuracy; however, sound-alike word errors, addition and/or deletions may occur. If there is any question about this report, please contact Client Services. PERFORMING LABORATORY: The technical component was performed by [facility], [address] [place] [id number] (Scientific Research Associate: Maci Cabrera MD; CLIA# [id number]). Professional interpretation was performed by [facility], [address] [address] (CLIA# [id number]). Diagnostician: Lissette Castillo MD Pathologist Electronically Signed 08/30/2021 Copies: ~ PATIENT NAME: LILY VALENTIN PATHOLOGY DATE OF : 62 REPORT #: [id number] PHYSICIAN: MAC PATHOLOGY PCP: KENDALL GUTIERREZ MD REPORT IS CONFIDENTIAL AND NOT TO BE RELEASED WITHOUT AUTHORIZATION
== END 2021-08-29 09:12 | disposition home or self-care (01) ==
LOC: OPS 05:53 → DS 05:53 → OPS 07:30 → DS 10:15
PROVIDERS: ATTEND Surgery
PROC: 0DBN8ZX Excision of Sigmoid Colon, Via Natural or Artificial Opening Endoscopic, Diagnostic (ICD-10-PCS; 2021-08-29)
PROC: 0DBH8ZX Excision of Cecum, Via Natural or Artificial Opening Endoscopic, Diagnostic (ICD-10-PCS; principal; 2021-08-29 07:30)
DX: Z12.11 Encounter for screening for malignant neoplasm of colon (principal); D12.2 Benign neoplasm of ascending colon; I10 Essential (primary) hypertension; E66.2 Morbid (severe) obesity with alveolar hypoventilation; Z68.41 Body mass index [BMI] 40.0-44.9, adult; Z80.0 Family history of malignant neoplasm of digestive organs; Z90.5 Acquired absence of kidney; Z90.49 Acquired absence of other specified parts of digestive tract
CPT/HCPCS: J2001; J2704; J7121

== ENCOUNTER 2021-09-28 01:36 | Inpatient (IN) | payer MEDICARE, BC ==
[~2021-09-28] VITALS: Ht 180.3 cm; Wt 149.0 kg
--- NOTE | 2021-09-28 07:00 | NUR ---
report recieved from ER nurse Rocco SOLANO, r femur head head fx, covid positive
--- NOTE | 2021-09-28 09:10 | NUR ---
CREAT KINASE CAME BACK. DR THURMAN NOTIFIED. VERBAL ORDER TO START NS AT 100ML/HR.
--- NOTE | 2021-09-28 09:10 | NUR ---
[facility] CALLED AND STATES BARIATRIC BED FOR PT WILL ARRIVE THIS AFTERNOON. NO TRAPEZE AVALIABLE. CHARGE NURSE, PTS PRIMARY RN, AND PT UPDATED.
--- NOTE | 2021-09-28 10:04 | NUR ---
dr ryan's office called for records.
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
--- NOTE | 2021-09-28 11:58 | NUR ---
SHAFER INSERTED BY ERLIN TAYLOR, PATIENT TOLERATED WELL. 950 ML OF DARK CLOUDY BROWN URINE, NOTED SEDIMENT. URINE SAMPLE COLLECTED AND SENT TO LAB. AMDINISTER SCHEDULED MEDICAITONS. PATIENT RESTING BACK, APPEARS TO BE SLEEPING WITH EYES CLOSED. CBG DONE, BLOOD SUGAR WITHIN RANGE, NO INSULIN ADMINISTERED. CALL LIGHT WITHIN REACH, NO OTHER NEEDS AT THIS TIME.
--- NOTE | 2021-09-28 12:25 | NUR ---
MED REC COMPLETE
--- NOTE | 2021-09-28 13:10 | NUR ---
PT HOME CPAP UNIT BROUGHT IN, RT CALLED TO SET UP
--- NOTE | 2021-09-28 17:25 | NUR ---
PATIENT LAYING IN BED SUPINE WITH CPAP IN PLACE. CBG DONE, ONE UNIT OF INSULIN GIVEN. EVENING MEDS GIVEN. PATIENT REPOSITIONED IN BED, YELLOW NON-SKID SOCKS PLACED. PATIENT SAT UP IN BED IN HIGH FOWLERS POSITION. DINNER DELIVERED. CALL LIGHT PLACED IN REACH.
--- NOTE | 2021-09-28 18:35 | NUR ---
RADIO FREQUENCY DESIGN ENGINEER IN ROOM WITH AIRBORNE AND AIR DELIVERY SPECIALIST, PT SWICTHED TO NEW BED, IV FLUIDS CHANGED PER DR GUTIERREZ ORDERS.
--- NOTE | 2021-09-28 21:36 | NUR ---
SPOKE WITH DR GUTIERREZ ABOUT PT'S URINE OUTPUT OF 425MLS. NO NEW ORDERS RECEIVED AT THIS TIME. HE WOULD LIKE TO BE NOTIFIED IF URINE OUTPUT IS LESS THAN 500MLS Q4H WHICH IS IN THE ORDERS.
--- NOTE | 2021-09-29 02:21 | NUR ---
pt using CPAP, on Resp isolation precaution. f/c emptied 475cc dark yellow urine, Dr Carroll notified as per his orders. "Oh its ok, continue with same IVF fluids as before".
--- NOTE | 2021-09-29 04:24 | NUR ---
On Respiratory Isolation Precautions.Pt has slept most of this shift. Has used CPAP. lungs dim at bases, no cough . took meds w/o problems. helped with repositioning. redness denis area, f/c not chornic, patent. as per Dr Carroll's orders he awas called everytime pt voided less than 500cc in 4hrs. IVF infusing w/o problems. R leg repositioned. edema to hip and ankles. heel protectors in place. uses call light, tolerating liquids and diet well alert, oriented, pleasant and coop, follows instructions. was medicated per R leg pain x1, effective.
--- NOTE | 2021-09-29 06:10 | NUR ---
PT VOIDED TOTAL OF 550CC IN LAST FOUR HOURS. NO NEED TO NOTIFY MD. Lockhart PATENT. DRAINING MEDIUM COLORED URINE. PT DENIES C/O PAIN, REPOSITIONED IN BED. REPOSITIONED R FOOT, HEEL PROTECTORS IN PLACE
--- NOTE | 2021-09-29 07:15 | NUR ---
REPORT RECIEVED FROM RESEARCH BIOLOGIST RN, PT RESTING IN BED, SHAFER IN PLACE, MONITOR UOP, NS @ 200, CALL LIGHT WITHIN REACH NO OTHER NEEDS AT THE MOMENT
--- NOTE | 2021-09-29 08:00 | NUR ---
PATIENT SLEEPING WITH CPAP ON. CBG DONE, WITHIN PARAMETERS, NO INSULIN GIVEN. MORNING MEDICATIONS ADMINISTERED. MORNING ASSESSMENT COMPLETED. BREAKFAST DELIVERED. PATIENT LEFT IN FOWLERS POSITION WITH NASAL CANULA IN PLACE.
--- NOTE | 2021-09-29 09:00 | NUR ---
RN IN ROOM TO DO MORNING ASSESSMENT PT AWAKE ALERT SITTING UP IN BED EATING BREAKFAST CONTINOUS PULSE OX ON AND FUNCTIONING, ON 2 L NC, DENIES ANY PAIN OR SOB
--- NOTE | 2021-09-29 09:27 | NUR ---
RN IN ROOM TO HANG NEW IV FLUID BAG, PT RESTING IN BED NO NEEDS AT THE MOMENT
--- NOTE | 2021-09-29 10:45 | NUR ---
PATIENT AWAKE AND LAYING IN SEMI-FOWLERS POSITION. BED BATH GIVEN WITH HELP OF ARMAND JIMENEZ. SHAFER EMPTIED, WATER FILLED, I&O CHARTED.
--- NOTE | 2021-09-29 11:00 | NUR ---
Received message from Luis Daniel at [facility] in [place] [facility]. She left a message stating she could accept this pt tomorrow. Spoke with Dr. Carroll as per our 829 meeting, [place] [phone]. Per Dr. Carroll, pt will now not be able to discharge until the middle of next week. Called Ryann and updated. She states she doesn't know if they will have a bed at that time. I will need to call for bed availability. Her phone number is [phone], . Will call next week when it is clear when pt can discharge.
--- NOTE | 2021-09-29 12:13 | NUR ---
CBG DONE, INSULIN ADMINISTERED PER SLIDING SCALE. AFTERNOON MEDICATIONS GIVEN. LUNCH DELIVERED.
--- NOTE | 2021-09-29 15:00 | NUR ---
rn in room to do afternoon meds, shana almeida, pt working with PT doing bed exercises, cpap put back on pt as he sated he wanted to take a nap, denies any other needs at the moment
--- NOTE | 2021-09-29 17:14 | NUR ---
rn in room to deliver dinner tray 1unit of insulin, set up to eat no other needs at the moment
--- NOTE | 2021-09-29 18:22 | NUR ---
rn in room to do vital signs and I&Os, cpap set up for bed, bag of clothes delivered as well as pt wallet, call light within reach no other needs
--- NOTE | 2021-09-29 19:05 | NUR ---
RECEIVED REPORT FROM DANNY SOLANO ABOUT THIS PATIENT. PT ON BEDREST AND IS COVID +.
--- NOTE | 2021-09-29 21:55 | NUR ---
IN ROOM TO HANG NEW BAG OF IV FLUIDS. ALSO EMPTIED CATHETER FOR ANTOHER 250MLS. PT DENIES FURTHER NEEDS. CALL LIGHT IS CLOSE.
--- NOTE | 2021-09-29 22:54 | NUR ---
CHECKED ON PT. HE IS LAYING WITH HOB SLIGHTLY ELEVATED, CPAP ON FACE. SLEEPING, REPSIRATIONS EVEN AND UNLABORED.
--- NOTE | 2021-09-30 02:02 | NUR ---
PT IS ASLEEP WITH CPAP IN PLACE TO FACE. DRAINED SHAFER 650ML OUT, URINE APPEARS LESS BROWN MORE YELLOW IN COLOR. PT STAYS ASLEEP WHEN IN CHECKING ON HIM, REMAINS ON CPOX, 93%
--- NOTE | 2021-09-30 07:20 | NUR ---
report recieved from welder 2nd shift RN, pt resting in bed, continue to monitor uop, on iv fluids, call light within reach.
--- NOTE | 2021-09-30 08:02 | NUR ---
dr chirinos rounded on pt, would like the pt to get out of bed today and repeat xray of the hip. notify provider when scans are done
--- NOTE | 2021-09-30 09:36 | NUR ---
rn in room to do morning assessment and medications pt awake alert, denies pain, saldana in place vss, no needs at the moment
--- NOTE | 2021-09-30 11:39 | NUR ---
RN IN TOO TO HELP PHYSICAL THERAPY , PT WAS HOYERED TO THE CHAIR TOLERATED FAIR
--- NOTE | 2021-09-30 12:45 | NUR ---
RN IN ROOM TO DELIVER LUNCH TRAY, LUNCH TIME MEDICATIONS ADMINISTERED, PT UP IN CHAIR TOLERATING WELL DENIES ANY OTHER NEEDS AT THE MOMENT
--- NOTE | 2021-09-30 14:30 | NUR ---
RN IN ROOM TO HELP PT GET BACK TO BED FIRER DIESEL LOCOMOTIVE IN ROOM HELPING PT BRUSH TEETH AND SHAVE, REQUESTING TO GET BACK TO BED ONCE HE IS DONE.
--- NOTE | 2021-09-30 15:03 | NUR ---
RN IN ROOM TO HELP PT BACK TO BED CHINA BACK TO BED ARMAND JANE ASSISTED, 1500 MEDICATIONS ADMINISTERED
--- NOTE | 2021-09-30 18:00 | NUR ---
RN IN ROOM PT DOES NOT WANT TO EAT DINNER PT OK WITH GETTING 3UINTS OF INSULIN HOT PACK PROVIDED FOR L KNEE FOR PAIN
--- NOTE | 2021-09-30 19:43 | NUR ---
RECEIVED REPORT FROM DAY SHIFT RN. PATEINT IS RESTING IN BED WITH EYES CLOSED, RR 17. PATIENT IS WEARING HOME CPAP. CALL LIGHT IN REACH.
--- NOTE | 2021-09-30 20:55 | NUR ---
PATIENT ASSESMENTT COMPLETED. PATIENT REPOSITIONED IN BED. PATIENT ABLE TO ASSIST. PATIENTS VITALS TAKEN AND RECORDED. SHAFER EMPTIED. INTAKE AND OUTPUT RECORDED. PATIENTS LEFT KNEE ELEVATED ON PILLOW AND WARM PACK APPLIED PER PATIENT REQUEST. PATIENT DENIES ANY PAIN. PATIENTS SCHEDULED MEDICATIONS GIVEN PER ORDER. IV INFUSING PER ORDER. PATIENTS DINNER HEATED FOR HIM. PATIENT PROVIDED WITH FRESH ICE WATER. PATIENT DENIES ANY FURTHER NEEDS. PATIENT IS RESTING IN BED EATING DINNER.
--- NOTE | 2021-09-30 23:15 | NUR ---
IN TO ASSIST PT WITH LOWERING THE HOB, NEW HEAT PACK PROVIDED, PILLOW UNDER ANKLE FOR EXTRA SUPPORT, NO FURTHER NEEDS AT THIS TIME
--- NOTE | 2021-09-30 23:34 | NUR ---
PATIENT IS RESTING IN BED WITH HOME CPAP ON. PATIENT DENIES ANY NEEDS. CALL LIGHT IN REACH.
--- NOTE | 2021-10-01 02:14 | NUR ---
PATIENT IS RESTING IN BED WEARING HOME CPAP. NO NEEDS NOTED. SHAFER EMPTIED AND OUTPUT IS QS. CALL LIGHT IN REACH.
--- NOTE | 2021-10-01 06:52 | NUR ---
PATIENT REPOSITIONED IN BED. PATIENTS VITALS TAKEN AND RECORDED. PATIENT DENIES ANY PAIN. PATIENTS SHAFER EMPTIED. INTAKE AND OUTPUT RECORDED. PATIENTS IV INFUSING PER ORDER. PATIENTS SCHEDULED MEDICATIONS GIVEN PER ORDER. NO FURTHER NEEDS NOTED. PATIENT PLACED BACK IN HOME CPAP. CALL LIGHT IN REACH.
--- NOTE | 2021-10-01 07:30 | NUR ---
SHIFT REPORT RECEIVED BY THIS RN FROM XIOMARA MACKEY. PATIENT RESTING QUIETLY IN BED ON HIS CPAP, EYES CLOSED, RESPIRATIONS ARE REGULAR AND EVEN, CALL LIGHT IN REACH. PATIENT HAS NO NOTED CARE NEEDS AT THIS TIME.
--- NOTE | 2021-10-01 09:30 | NUR ---
Pt set up for breakfast. He states no needs at this time. IVF infusing WNL. Call light in reach.
--- NOTE | 2021-10-01 10:15 | NUR ---
THIS RN IN TO CHECK ON PATIENT. AM MEDS GIVEN. PT IN ROOM WITH ARMAND SMITH AND THEY ARE GETTING READY TO [place]INA THE PATIENT OVER TO THE BEDSIDE ARMCHAIR TO DO PT. PATIENT HAD NO OTHER NEEDS FROM THIS RN AT THIS TIME.
--- NOTE | 2021-10-01 12:08 | NUR ---
PATIENT REMIANS UP IN THE CHAIR AND IS EATING LUNCH. PATIENT NEEDED NO INSULIN COVERAGE. PO MEDS GIVEN. CALL LIGHT IN REACH. NO OTHER CARE NEEDS AT THIS TIME.
--- NOTE | 2021-10-01 12:55 | NUR ---
PATIENT BACK TO BED FROM BEDSIDE ARM CHAIR VIA CHINA LIFT BY THIS RN AND ASSSITANCE FROM ARMAND SMITH. SCD'S BACK ON AND WARM PACK TO THE BACK OF PATIENT'S LEFT KNEE AND THIGH PER PATIENT REQUEST. PATIENT HAD THIS RN PULL THE SUN SHADE ON THE WINDOWW AND PUT HIS CPAP ON TO TAKE A NAP. CALL LIGHT IN REACH AND PATIETN HAS NO OTHER CARE NEEDS AT THIS TIME.
--- NOTE | 2021-10-01 14:05 | NUR ---
PATIENT'S AFTERNOON ASSESSMENT REMAINS ESSENTIALLY UNCHANGED. PATIENT HAS BEEN MEETING HIS Q4HR URINE REQUIREMENT OF 500MLS. PATIENT REMAINS IN BED AND JUST WANTS TO SLEEP, SO HE IS KEEPING HIS CPAP ON. PATIENT HAS NO CURRENT CARE NEEDS. CALL LIGHT IS IN REACH.
--- NOTE | 2021-10-01 14:35 | NUR ---
PATIENT IN BED RESTING WITH EYES CLOSED. VITALS AND I&O'S CHARTED. BLOOD PRESSURE A LITTLE HIGH, XIOMARA STONE NOTIFIED. CALL LIGHT IN REACH. NO FURTHER NEEDS AT THIS TIME.
--- NOTE | 2021-10-01 17:25 | NUR ---
PATIENT SITTING UP IN BED FOR DINNER. VITALS AND I&O'S CHARTED. BLOOD PRESSURE HIGH, XIOMARA STONE NOTIFIED. CALL LIGHT IN REACH. NO FURTHER NEEDS AT THIS TIME.
--- NOTE | 2021-10-01 17:43 | NUR ---
PATIENT DID NOT NEED ANY INSULIN THE FIRST 2 MEALS OF THE DAY AND 1UNIT FOR DINNER. PATIENT HAS HAD NO C/O PAIN TODAY. PATIENT WAS UP WITH PT IN THE AM, SITTING AND STANDING FROM THE BEDSIDE ARMCHAIR AND DID WELL. PATIENT HOYERED TO BEDSIDE ARMCHAIR BEFORE LUNCH AND BACK TP BED AFTER. PATIENT HAS BEEN TAKING NAPS WHEN STAFF IS NOT IN ROOM AND WEARS HIS CPAP TO DO THAT. LAC IV STARTED LEAKING AND WAS DC'D TODAY. VS HAVE BEEN WITHIN CALL PARAMETERS. PATIENT HAS VOIDED AT LEAST 500MLS EVERY 4 HOURS TODAY. IV FLUIDS CONTINUE AT 150MLS/HR.BOWEL TONES ARE ACTIVE. LUNG SOUNDS DIM THROUGHOUT, MOSTLY DO TO PATIENT'S SIZE. NO OTHER CARE NEEDS AT THIS TIME. CALL LIGHT IS IN REACH.
--- NOTE | 2021-10-01 19:39 | NUR ---
SHIFT REPORT FROM BERTHA Bernabe RN, PT HAS HAD GOOD DAY, HE HAS BEEN UP TO CHAIR BY CHINA. HE HAS NOT REPORTED ANY PAIN OVER SHIFT.
--- NOTE | 2021-10-01 20:00 | NUR ---
ANSWERED CALL LIGHT. 2 PA. THIS LINKING MACHINE OPERATOR AND DYE HOUSE WHEEL OPERATORWARREN MACKEY CLEANED PATIENT FROM HAVING BOWEL MOVEMENT. SHAFER CARE DONE. CHANGED BED LINEN AND GOWN. SHAFER STATLOCK PLACED. V/S AND I&O'S DONE AND BLOOD SUGAR CHECK DONE AND CHARTED. WARM PACK MADE BY DYE HOUSE WHEEL OPERATORWARREN MACKEY FOR PATIENT'S LEFT KNEE. PRIMARY RN DEYANIRA WAS WITH PATIENT.
--- NOTE | 2021-10-01 20:32 | NUR ---
PT ALERT AND ORIENTED, ON HOME CPAP, JUST HAD LARGE BM, FULL BED CHANGE. HE REPORTS NO PAIN.
--- NOTE | 2021-10-01 20:50 | NUR ---
ROUNDING WITH HS MEDICATIONS, PT ALERT AND ORIENTED. HE IS PLEASANT AND COOPERATIVE WITH CARE. HE REPORTS NO PAIN OR NAUSEA. HE HAS CPAP IN PLACE FOR SLEEP. NO OTHER CONCERNS OR REQUESTS.
--- NOTE | 2021-10-01 21:51 | NUR ---
PATIENTS ATTEND CHANGED. PATIENT HAD SMALL BM. PATIENT ABLE TO ROLL SIDE TO SIDE FOR PATIENT CARE WITH NO ASSISTANCE. PATIENT REPOSITIONED SELF IN BED. PATIENT DENIES ANY FURTHER NEEDS. SCDS AND HEEL PROTECTORS IN USE. PATIENT DENIES ANY PAIN. PATEINT PLACED HOME CPAP BACK ON. CALL LIGHT IN REACH.
--- NOTE | 2021-10-02 00:38 | NUR ---
PT CALLED NURSES STATION TO REPORT IVP ALARMING. THIS RN INTO ROOM SET UP NEXT IVF LITER. PT ALERT ASKED WHAT TIME IT IS. PT SAID OK. NO OTHER CONCERNS OR REQUESTS. PT USING PERSONAL CPAP FOR SLEEP. NO DISTRESS NOTED.
--- NOTE | 2021-10-02 01:54 | NUR ---
WENT IN TO THE ROOM. WARM BLANKET PROVIDED. ROOM TEMP ADJUSTED FROM 70 TO 73 PER PATIENT'S REQUEST. SHAFER BAG EMPTIED 900ML WROTE ON WHITE BOARD. PATIENT DENIES FURTHER NEEDS AT THIS TIME.
--- NOTE | 2021-10-02 04:56 | NUR ---
PT CALLED NURSES STATION TO REPORT THAT THE IV PUMP IS ALARMING. THIS RN INTO PT ROOM TO ASSESS, PT SAID HE HAD BENT HIS ARM TIGHT WHEN HE TOOK A DRINK OF WATER. IVP SHOWED A DISTAL OCCLUSION, IV SITE WNL, IVP RESTARTED.
--- NOTE | 2021-10-02 05:57 | NUR ---
NO CONCERNS OVER ATHLETIC EQUIPMENT MANAGER, HE HAS HAD TWO LARGE BM OVER SHIFT. HE HAS REPORTED NO PAIN. HE HAS SLEPT WELL OVER SHIFT WITH PERSONAL CPAP MACHINE AT BEDSIDE. HE HAS GOOD BED MOBILITY ABLE TO TURN IN BED FOR ASSESSMENT AND CLEANING AFTER BM.
--- NOTE | 2021-10-02 07:30 | NUR ---
THIS RN RECEIVED SHIFT REPORT FROM XIOMARA MCMILLAN. PATIENT RESTING QUIETLY ON HIS CPAP, EYES CLOSED, RESPIRATIONS ARE REGULAR AND EVEN, CALL LIGHT IS IN REACH. PATIENT HAS NO CURRENT CARE NEEDS AT THIS TIME.
--- NOTE | 2021-10-02 08:10 | NUR ---
PATIENT INCONTINENT LARGE PASTY BROWN STOOL. PATIENT ATTENDS CHANGED AND PATIENT WASHED UP BY THIS RN AND ARMAND CORBETT. AM MEDS GIVEN AND PATIENT TOLERATED ALL PROCEDURES WELL. PATIENT PUT CPAP BACK ON AND WANTING TO GO BACK TO SLEEP FOR AWHILE. CALL LIGHT IN REACH AND LIGHTS TURNED DOWN AT PATIENT'S REQUEST.
--- NOTE | 2021-10-02 08:55 | NUR ---
BOTH NARES SWABBED FOR COVID-19 WITHOUT COMPLICATION. SAMPLE TAKEN TO LAB
--- NOTE | 2021-10-02 09:30 | NUR ---
Discussed discharge disposition with Dr. Carroll in 929 meeting. Possible dc tomorrow. 11:40 Called and spoke with Minday at [facility] in [place]. They do have a bed open. She requests updated clinicals and I will fax when Dr. Carroll completes his note today.
--- NOTE | 2021-10-02 11:24 | NUR ---
PATIENT HAD LARGE INCONT. BM. SHAN CARE, CATH CARE DONE. NEW ATTENDS IN PLACE. I&O'S CHARTED. NEW HEAT PACK GIVEN FOR UNDER LEFT KNEE. CALL LIGHT IN REACH. NO FURTHER NEEDS AT THIS TIME.
--- NOTE | 2021-10-02 11:26 | NUR ---
PATIENT IS INCONTINENT OF STOOL AGAIN AND ARMAND CORBETT WORKING ON CLEANING AND CHANGING PATIENT. THIS RN DELIVERD A WARM PACK TO PATIENT'S ROOM THAT PATIENT REQUESTED TO PUT BEHIND HIS LEFT KNEE/THIGH AREA. ARMAND CORBETT REMAINS IN THE ROOM.
--- NOTE | 2021-10-02 11:57 | NUR ---
PATIENT GIVEN 3UNITS INSULIN TO COVER FSBS. 40MG IV LASIX GIVEN SIVP ORDERED. PATIENT DENIES ANY CARE NEEDS AT THIS TIME. CALL LIGHT IS IN REACH.
--- NOTE | 2021-10-02 13:10 | NUR ---
PATIENT RESTING QUIETLY IN LOW FOWLERS POSITION, ON CPAP, EYES CLOSED, CALL LIGHT IN REACH. PATIENT HAS NO OTHER CARE NEEDS AT THIS TIME.
--- NOTE | 2021-10-02 14:08 | NUR ---
PATIENT CONTINUES TO REST AND RELAX ON HIS CPAP. PATIENT DENIES ANY CARE NEEDS AT THIS TIME. CALL LIGHT IS IN REACH.
--- NOTE | 2021-10-02 14:26 | NUR ---
PT AWAKE AND SITTING ALL THE WAY UP IN BED FOR LUNCH. SHAFER EMPTIED. BRIEF CHANGED. NO FURTHER NEEDS AT THIS TIME.
--- NOTE | 2021-10-02 15:00 | NUR ---
PATIENT CALLED AND SAID HE COUGHED AND IS INCONTINENT EUFEMIA AGAIN. THIS RN WENT IN AND WITH PATIENT'S ASSISTENCE TURNING STOOL CLEANED UP AND NEW ATTENDS AND CHUCKS IN PLACE. CALL LIGHT IN REACH AND BED IN LOW POSITION. PATIENT DENIES ANY OTHER CARE NEEDS AT THIS TIME.
--- NOTE | 2021-10-02 17:27 | NUR ---
PT RESTING IN BED USING HOME CPAP MACHINE, CALL LIGHT IN REACH. SHAFER EMPTIED. BLOOD SUGAR CHECKED. NO FURTHER NEEDS AT THIS TIME
--- NOTE | 2021-10-02 18:10 | NUR ---
THIS RN IN TO GIVE PM SLIDING SCALE INSULIN. REPOSITIONED PATIENT TO A SITTING POSITION IN BED SO HE CAN EAT HIS DINNER. PATIENT'S BURGER JUST ARRIVED. PATIENT HAS NO OTHER CARE NEEDS AT THIS TIME.
--- NOTE | 2021-10-02 19:30 | NUR ---
BEDSIDE REPORT FROM BERTHA Bernabe RN, PT HAD A GOOD SHIFT, HE HAS HAD MULTIPLE BM THROUGHOUT THE SHIFT. NO NEW CONCERNS. PT REPORTS NO PAIN OR NAUSEA AT THIS TIME.
--- NOTE | 2021-10-02 19:35 | NUR ---
PATIENT CALLED WANTING TO BED CHANGED. THIS HEAD WAITER/WAITRESS BANQUET CLEANED PATIENT FROM HAVING BOWEL MOVEMENT. DID FOELY CARE. V/S, I&O'S TAKEN. XIOMARA CURRAN DID BLOOD SUGAR CHECK AND CHARTED. WARM PACK MADE BY XIOMARA MONTEZ AND THIS TELEVISION PRODUCTION ASSISTANT PLACED UNDER PATIENT'S LEFT KNEE. CALL LIGHT WITHIN REACH.
--- NOTE | 2021-10-02 22:12 | NUR ---
PT RESTING IN BED, ALERT AND ORIENTED. HE REPORTS FEELING RESTLESS. B/P HAS BEEN ELEVATED, HS B/P MEDS ADMINISTERED WILL MONITOR. PT REPORTS NO PAIN OR NAUSEA. NO OTHER CONCERNS
--- NOTE | 2021-10-03 00:05 | NUR ---
PT RESTING IN BED EYES CLOSED, PT ON HOME CPAP, RR REGULAR AT 18BPM NO DISTRESS NOTED.
--- NOTE | 2021-10-03 01:48 | NUR ---
PT CALLED NURSES STATION TO REPORT THAT HIS IVP IS ALARMING. MAGDY Barraza RN INTO PT ROOM TO START NEW LITER OF FLUIDS PER ORDERS.
--- NOTE | 2021-10-03 04:30 | NUR ---
PT RESTING IN BED EYES CLOSED RR REGULAR 18BPM, PT ON HOME CPAP. NO DISTRESS NOTED. CALL LIGHT IN REACH
--- NOTE | 2021-10-03 04:36 | NUR ---
PT HAD BM AT START OF SHIFT, HE HAS SLEPT WELL WITH HOME CPAP, HE HAS HAD NO COMPLAINTS OF PAIN OR NAUSEA, NO NEW CONCERNS OVER THIS SHIFT, CONT. CARE PLAN PENDING AM LABS
--- NOTE | 2021-10-03 06:33 | NUR ---
PT VERBALIZED ANXIETY ABOUT POSSIBLE TRANSFER TO [facility] TODAY, HE REPORTS FEAR OF THE DRIVE THROUGH THE [place] ON BAD ROADS. DISCUSSED WITH PT THAT A NON-EMERGENT TRANSPORT, TRANSPORT WILL NOT RISK SEVERE DANGEROUS ROADS TO TRANSPORT TODAY.
--- NOTE | 2021-10-03 07:36 | NUR ---
SHIFT REPORT RECEIVED FROM XIOMARA MCMILLAN. PATIENT RESTING QUIETLY, EYES CLOSED, ON CPAP, CALL LIGHT IN REACH. PATIENT HAS NO CARE NEEDS AT THIS TIME.
--- NOTE | 2021-10-03 08:30 | NUR ---
Per 08 meeting pt is dischargable today. Dr Carroll asks Helen complete dc orders and he will complete discharge meds. Orders printed and given to Helen GOULD. Called and left a message for Ryann at [facility] I will be faxing orders soon. Called spoke with Ibis at [facility]. They will aim for 11:30 transport, but would like to leave as soon as possible. Let her know I am awaiting orders and will call her if I receive sooner.
--- NOTE | 2021-10-03 08:44 | NUR ---
PATIENT SITTING UP IN BED FPR BREAKFAST. VITALS AND I&O'S CHARTED. WARM WASHCLOTH GIVEN. CALL LIGHT IN REACH. NO FURTHER NEEDS AT THIS TIME.
--- NOTE | 2021-10-03 09:15 | NUR ---
Received orders from Helen and delivered to Dr. Carroll in [facility]U.
--- NOTE | 2021-10-03 09:20 | NUR ---
Received orders from Dr. Carroll. Faxed face sheet, orders progress note dc summary, medication list, note showing vaccine dates, and PT note to Ryann at [facility]. Called Ibis at EMS and updated pt can leave earlier. She will call the crew and have them here in 25 minutes. RN and charge herbert notified updated
[2021-10-03] MEDS ORDERED: WARFARIN SODIUM5 MG PO (10:29)
[2021-10-03] MEDS ORDERED: MAG-OXIDE400 MG PO (10:29)
[2021-10-03] MEDS ORDERED: ALLOPURINOL300 MG PO (10:34)
--- NOTE | 2021-10-03 11:04 | NUR ---
THIS RN CALLED NURSE TO NURSE REPORT TO XIOMARA GRANT AT [facility]. FACILITY WILL BE READY TO RECEIVE HIM IN A FEW HOURS FROM EMS TRANSPORT. [facility] PHONE#[phone]. PATIENT BEING PREPPED FOR TRANSPORT BY [facility].
--- NOTE | 2021-10-03 11:28 | NUR ---
Received a call from Ibis at EMS. Crew has been called out, they are calling in a second crew and they will be here in 1 hour.
--- NOTE | 2021-10-03 12:48 | NUR ---
PATIENT DECLINED LUNCH AND IS STILL WAITING FOR HIS TRANSPORT TO GO TO [place]. AMBULACE WAS DELAYED BUT SHOULD BE HERE ANY TIME. CALL LIGHT IN REACH. PATIENT HAS NO CARE NEEDS AT THIS TIME.
== END 2021-10-03 13:00 | disposition short-term general hospital (02) | DRG 963 ==
LOC: ED 01:36 → MS 06:37
PROVIDERS: ADMIT Specialist; ATTEND Specialist
PROC: 8E0ZXY6 Isolation (ICD-10-PCS; principal; 2021-09-28)
PROC: 3E0DX3Z Introduction of Anti-inflammatory into Mouth and Pharynx, External Approach (ICD-10-PCS; 2021-09-28)
PROC: XW033E5 Introduction of Remdesivir Anti-infective into Peripheral Vein, Percutaneous Approach, New Technology Group 5 (ICD-10-PCS; 2021-09-29)
DX: S72.001A Fracture of unspecified part of neck of right femur, initial encounter for closed fracture (principal); U07.1 COVID-19; T79.6XXA Traumatic ischemia of muscle, initial encounter; I50.42 Chronic combined systolic (congestive) and diastolic (congestive) heart failure; N17.9 Acute kidney failure, unspecified; N18.4 Chronic kidney disease, stage 4 (severe); E87.2 Acidosis; B17.9 Acute viral hepatitis, unspecified; I13.0 Hypertensive heart and chronic kidney disease with heart failure and stage 1 through stage 4 chronic kidney disease, or unspecified chronic kidney disease; W18.30XA Fall on same level, unspecified, initial encounter; I48.0 Paroxysmal atrial fibrillation; E86.0 Dehydration; G47.33 Obstructive sleep apnea (adult) (pediatric); F43.22 Adjustment disorder with anxiety; D64.9 Anemia, unspecified; Z09 Encounter for follow-up examination after completed treatment for conditions other than malignant neoplasm; Z86.16 Personal history of COVID-19; E66.01 Morbid (severe) obesity due to excess calories; I25.10 Atherosclerotic heart disease of native coronary artery without angina pectoris; Z79.899 Other long term (current) drug therapy; E78.5 Hyperlipidemia, unspecified; E03.9 Hypothyroidism, unspecified; D50.9 Iron deficiency anemia, unspecified; Z90.5 Acquired absence of kidney; Z90.49 Acquired absence of other specified parts of digestive tract; Z98.890 Other specified postprocedural states; E78.00 Pure hypercholesterolemia, unspecified; M47.816 Spondylosis without myelopathy or radiculopathy, lumbar region
CPT/HCPCS: 36415; 71045; 73502; 73560; 73700; 80048; 80053; 81001; 82553; 83735; 85025; 85610; 96374; 96376; 97110; 97162; 97530; 99285-25; C9803; J0248; J1815; J1940; J2270; J7030; J7040; J7050; J8540; U0003

== ENCOUNTER 2022-08-13 16:06 | Emergency (ER) | payer MEDICARE, BC ==
[~2022-08-13] VITALS: Ht 180.3 cm; Wt 148.9 kg
== END 2022-08-13 20:10 | disposition home or self-care (01) ==
LOC: ED 16:06
DX: S70.01XA Contusion of right hip, initial encounter (principal); I50.9 Heart failure, unspecified; I11.0 Hypertensive heart disease with heart failure; G47.30 Sleep apnea, unspecified; D64.9 Anemia, unspecified; E03.9 Hypothyroidism, unspecified; Z87.891 Personal history of nicotine dependence; Z79.899 Other long term (current) drug therapy; Z79.01 Long term (current) use of anticoagulants; W19.XXXA Unspecified fall, initial encounter
CPT/HCPCS: 73502; 99283-25; A9270

== ENCOUNTER 2022-08-14 08:04 | Emergency (ER) | payer MEDICARE, BC ==
[~2022-08-14] VITALS: Ht 180.3 cm; Wt 151.0 kg
--- OUTSIDE RECORDS SUMMARY | 2022-08-14 08:06 | XMS ---
PreManage Notification: LILY VALENTIN Security Php Consultant Events No recent Security Events currently on file CRITERIA MET - [facility] - 2 Visits in 30 Days CARE PROVIDERS KENDALL GUTIERREZ Internal Medicine Current PHONE: Unknown CELSA Camacho [facility] Medicine: Geriatric Medicine Current PHONE: Unknown Shauna has no Care Guidelines for this patient. Care History Medical/Surgical 07/13/2019 [facility] Patient had canceled 07/16/[address] Gutierrez.\T\nbsp; Patient is waiting to hear reschedule date post [facility] visit. 08/25/2018 [facility] - Patient is currently established with [facility]. If patient is seen in the ED during business hours. Please contact CHWs at [facility]. Care Recommendation: This patient has had 5 or more Emergency Department visits in the last 12 months.\T\nbsp; Patient requires education on the scope and purpose of the ED as an acute care provider not a Primary Care Provider and should not be utilized for chronic conditions.\T\nbsp; These are guidelines and the provider should exercise clinical judgment when providing care E.D. VISIT COUNT (12 MO.) 3 [facility] TOTAL 3 NOTE: Visits indicate total known visits. ED/UCC VISIT TRACKING (12 MO.) 08/14/2022 08:05 [facility] [place] TYPE: Emergency COMPLAINT: - R HIP PAIN 08/13/2022 16:06 [facility] [place] TYPE: Emergency COMPLAINT: - HIP PAIN/INJ 09/28/2021 01:36 [facility] [place] TYPE: Emergency COMPLAINT: - FALL, WEAKNESS INPATIENT VISIT TRACKING (12 MO.) 09/28/2021 06:37 [facility] [place] TYPE: Medical Surgical COMPLAINT: - RIGHT INCOMPLETE NECK FX, CHRON RENAL FAIL, COVID DIAGNOSES: - Encounter for follow-up examination after completed treatment for conditions other than malignant neoplasm - Anemia, unspecified - Hyperlipidemia, unspecified - Atherosclerotic heart disease of [place] coronary artery without angina pectoris - Acquired absence of other specified parts of digestive tract - Acquired absence of other specified parts of digestive tract - Dehydration - Acquired absence of kidney - Acute kidney failure, unspecified - Traumatic ischemia of muscle, initial encounter - Traumatic ischemia of muscle, initial encounter - Chronic combined systolic (congestive) and diastolic (congestive) heart failure - Acute viral hepatitis, unspecified - Fracture of unspecified part of neck of right femur, initial encounter for closed fracture - Spondylosis without myelopathy or radiculopathy, lumbar region - Other termite control servicer (current) drug therapy - Paroxysmal atrial fibrillation - Atherosclerotic heart disease of [place] coronary artery without angina pectoris - Pure hypercholesterolemia, unspecified - Pure hypercholesterolemia, unspecified - Acute kidney failure, unspecified - Acidosis - Iron deficiency anemia, unspecified - Acidosis - Adjustment disorder with anxiety - Personal history of COVID-19 - Acquired absence of kidney - Spondylosis without myelopathy or radiculopathy, lumbar region - Chronic kidney disease, stage 4 (severe) - Adjustment disorder with anxiety - Obstructive sleep apnea (adult) (pediatric) - Hypertensive heart and chronic kidney disease with heart failure and stage 1 through stage 4 chronic kidney disease, or unspecified chronic kidney disease - COVID-19 - Fall on same level, unspecified, initial encounter - Morbid (severe) obesity due to excess calories - Other termite control servicer (current) drug therapy - Other specified postprocedural states - Chronic kidney disease, stage 4 (severe) - Obstructive sleep apnea (adult) (pediatric) - Dehydration - COVID-19 - Morbid (severe) obesity due to excess calories - Encounter for follow-up examination after completed treatment for conditions other than malignant neoplasm - Hypertensive heart and chronic kidney disease with heart failure and stage 1 through stage 4 chronic kidney disease, or unspecified chronic kidney disease - Hypothyroidism, unspecified - Acute viral hepatitis, unspecified - Hyperlipidemia, unspecified - Paroxysmal atrial fibrillation - Hypothyroidism, unspecified - Anemia, unspecified - Other specified postprocedural states - Fall on same level, unspecified, initial encounter - Chronic combined systolic (congestive) and diastolic (congestive) heart failure - Iron deficiency anemia, unspecified [id number]
== END 2022-08-14 09:41 | disposition home or self-care (01) ==
LOC: ED 08:04
DX: S70.01XA Contusion of right hip, initial encounter (principal); I11.0 Hypertensive heart disease with heart failure; I50.9 Heart failure, unspecified; E66.9 Obesity, unspecified; G47.30 Sleep apnea, unspecified; D64.9 Anemia, unspecified; E03.9 Hypothyroidism, unspecified; I48.91 Unspecified atrial fibrillation; I48.92 Unspecified atrial flutter; Z87.891 Personal history of nicotine dependence; Z79.899 Other long term (current) drug therapy; Z79.01 Long term (current) use of anticoagulants; W18.30XA Fall on same level, unspecified, initial encounter
CPT/HCPCS: 72192; 99284-25

== ENCOUNTER 2024-03-22 09:02 | Emergency (ER) | payer MEDICARE, BC ==
[~2024-03-22] VITALS: Ht 180.3 cm; Wt 137.4 kg
[2024-03-22] MEDS ORDERED: MAGNESIUM OXID400 M1 PO (09:15)
[2024-03-22] MEDS ORDERED: [UNRECOGNIZED DRUG - OTHER] MM (09:46)
[2024-03-22 09:52] VITALS: BP 137/62
== END 2024-03-22 09:52 | disposition home or self-care (01) ==
LOC: ED 09:02
DX: K64.4 Residual hemorrhoidal skin tags (principal); I11.0 Hypertensive heart disease with heart failure; I50.9 Heart failure, unspecified; E66.9 Obesity, unspecified; Z87.891 Personal history of nicotine dependence; Z79.899 Other long term (current) drug therapy; Z79.01 Long term (current) use of anticoagulants; Z79.890 Hormone replacement therapy
CPT/HCPCS: 99283

== ENCOUNTER 2024-05-26 17:43 | Emergency (ER) | payer MEDICARE, BC ==
[~2024-05-26] VITALS: Ht 180.3 cm; Wt 137.9 kg
[~2024-05-26 17:43] MED LIST changes: +MAGNESIUM OXID400 M1 PO; +[UNRECOGNIZED DRUG - OTHER] MM
[2024-05-26] MEDS ORDERED: DIPHTH,PERTUSS(ACELL),TET VAC 0.5 ML SYRINGE IM ONE (18:30)
[2024-05-26] MEDS ORDERED: TERBINAFINE HC250 MG PO (18:32)
[2024-05-26 19:38] VITALS: BP 120/52
== END 2024-05-26 19:38 | disposition left against medical advice (07) ==
LOC: ED 17:43
DX: S61.213A Laceration without foreign body of left middle finger without damage to nail, initial encounter (principal); Z53.21 Procedure and treatment not carried out due to patient leaving prior to being seen by health care provider; W26.0XXA Contact with knife, initial encounter
CPT/HCPCS: 90715

== ENCOUNTER 2024-07-30 10:23 | Inpatient (IN) | payer MEDICARE, BC ==
[~2024-07-30] VITALS: Ht 180.3 cm; Wt 137.0 kg
[~2024-07-30 10:23] MED LIST changes: +FARXIGA10 MG PO; +TERBINAFINE HC250 MG PO
[2024-07-30] MEDS ORDERED: SODIUM CHLORIDE 0.9% 500 ML IV ONE (11:00)
[2024-07-30] MEDS ORDERED: ondansetron HCL 4 MG/2 ML VIAL IV ONE (11:00)
[2024-07-30 11:04] LABS: BASOPHILS 1.8 % (0-2); HEMATOCRIT 43.6 % (35.0-50.0); HEMOGLOBIN 14.6 g/dL (12.0-18.0); LYMPHOCYTES 7.1 % (24-44); MCH 34.3 (27-36); MCHC 33.5 g/dl (30-36); MCV 102.5 fl (81-99); MONOCYTES 3.9 % (0-12); NEUTROPHILS 87.2 % (39-80); PLATELET COUNT 241 K/uL (140-440); RBC 4.25 M/ul (4.3-5.7); RDW 16.1 (10.5-15.0)
[2024-07-30] MEDS ORDERED: PANTOPRAZOLE SODIUM 40 MG/10 ML VIAL IV ONE (11:15)
[2024-07-30] MEDS ORDERED: HYDROmorphone HCL 1 MG/ML SYR IV ONE (11:15)
[2024-07-30 11:30] LABS: ALBUMIN 3.7 g/dL (3.4-5.0); ALBUMIN/GLOBULIN RATIO 1.16 (1.1-2.4); ANION GAP 14.1 (7-21); BILIRUBIN, TOTAL 0.6 ng/dL (0.2-1.0); BUN/CREATININE RATIO 21.15 (6.0-28.6); CALCIUM 9.2 mg/dL (8.5-10.1); CREATININE, SERUM 2.08 mg/dL (0.70-1.30); MAGNESIUM 2.2 mg/dL (1.8-2.4); POTASSIUM 4.1 mmol/L (3.5-5.1); PROTEIN, TOTAL 6.9 g/dL (6.4-8.2)
[2024-07-30 12:44] LABS: BILIRUBIN, URINE NEGATIVE (negative); BLOOD/HGB, URINE NEGATIVE (Negative); KETONE, URINE NEGATIVE (Negative); LEUK ESTERASE, URINE NEGATIVE (negative); NITRITE, URINE NEGATIVE (negative)
[2024-07-30 12:59] LABS: INR 1.68 (0.80-1.30); PROTIME 19.4 Sec (11.2-14.2)
[2024-07-30 13:01] LABS: PARTIAL THROMBOPLASTIN TIME 30.7 Sec (22.9-41.3)
[2024-07-30 13:03] LABS: AMPHETAMINES, URINE NEGATIVE (NEGATIVE); BARBITURATES, URINE NEGATIVE (NEGATIVE); BENZODIAZEPINE, URINE NEGATIVE (NEGATIVE); BUPRENORPHINE, URINE NEGATIVE (NEGATIVE); CANNABINOID, URINE NEGATIVE (NEGATIVE); COCAINE, URINE NEGATIVE (NEGATIVE); ECSTASY, URINE NEGATIVE (NEGATIVE); FENTANYL, URINE NEGATIVE (NEGATIVE); METHADONE, URINE NEGATIVE (NEGATIVE); OPIATES, URINE NEGATIVE (NEGATIVE); OXYCODONE, URINE NEGATIVE (NEGATIVE); PHENCYCLIDINE, URINE NEGATIVE (NEGATIVE)
[2024-07-30] MEDS ORDERED: PANTOPRAZOLE SODIUM 40 MG/10 ML VIAL IV SCH (13:34)
[2024-07-30] MEDS ORDERED: LACTATED RINGER'S 1,000 ML IV SCH (13:45)
[2024-07-30 14:31] VITALS: BP 147/65
[2024-07-30] MEDS ORDERED: ondansetron HCL 4 MG/2 ML VIAL IV PRN (14:45)
--- NOTE | 2024-07-30 15:41 | NUR ---
O2 ON SB WITH CPOX. PATIENT WEARS CPAP, BUT CURRENTLY HAS NG TUBE. PLAN TO KEEP BED ELEVATED WITH O2 NEEDED DURING SLEEP
[2024-07-30 15:47] VITALS: BP 147/65
--- NOTE | 2024-07-30 15:50 | NUR ---
Spoke with Aaron. He states he cont. to live in his childhood home. He has added a ramp. He uses a cane and 4ww walker at times. He does not have issues getting in or out of his home. He also has a CPAP. Pt has had multiple medical issues over the last few years. States he began vomiting this morning and came to the ER. He has a NG in place. He uses food stamps and also has [employer] winterize his home. He denies needs. States he budgets and bulk buys his food. He plans on dc to home whenever he is dischargeable.
--- NOTE | 2024-07-30 16:12 | NUR ---
PT CALLED NEEDING HELP TO RECLINE IN BED. DIMMED LIGHTS PER PT REQUEST. RETRIEVED TV GUIDE AND HELPED PT FIND THE CLASSICAL MUSIC CHANNEL. PT BELONGINGS AND CALL LIGHT WITHIN REACH. PT STATED NO FURTHER NEEDS AT THIS TIME.
--- NOTE | 2024-07-30 17:06 | NUR ---
PT RESTING QUIETLY IN ROOM. NGT REMAINS TO LIS WITH BURGUNDY DRAINAGE.
[2024-07-30 17:41] VITALS: BP 161/59
[2024-07-30 18:19] VITALS: BP 161/59
--- NOTE | 2024-07-30 18:21 | NUR ---
PT ADMISSION COMPLETED. PT SEEN BY DR. VILLA. PT HAS REMAINED NPO WITH NGT TO LIS. PULSE OX PROBE CHANGED TO RIGHT MIDDLE FINGER PER PATINET REQUEST. HOME MEDICATIONS PENDING ORDERS
--- NOTE | 2024-07-30 18:51 | NUR ---
PT C/O ABDOMINAL DISCOMFORT, NO PAIN MEDICATIONS ORDERED. DR COHEN NOTIFIED, ORDERS TO BE RECEIVED.
[2024-07-30] MEDS ORDERED: MORPHINE SULFATE 4 MG/ML VIAL IV PRN (19:00)
--- NOTE | 2024-07-30 19:27 | NUR ---
ORDERS REC'D FOR PAIN MEDICATION. PT MEDICATED WITH 4MG IV MORPHINE. DR COHEN NOT CONCERNED ABOUT PATIENT BP AT THIS TIME AND DOES NOT WANT TO ORDER ANY OF HIS HOME MEDICATIONS.
--- NOTE | 2024-07-30 19:48 | NUR ---
CALL LIGHT ANSWERED. PT NEEDED TO USE BATHROOM. RESEARCH PHARMACIST SBA WITH FWW TO BATHROOM. PT VOIDED AND ASSISTED BACK TO BED. NG TUBE RECONNECTED TO SUCTION. PT STATED THAT HE WANTED TO SIT UP AT THE EDGE OF THE BED FOR A WHILE. PT STATES NO FURTHER NEEDS AT THIS TIME. CALL LIGHT WITHIN REACH.
--- NOTE | 2024-07-30 19:51 | NUR ---
REPORT RECIEVED FROM DAY SHIFT RN. PATIENT RESTING IN BED. NG TUBE SET AT LIWS. NO NEED AT THIS TIME. CALL LIGHT IN REACH.
[2024-07-30 20:56] VITALS: BP 168/72
[2024-07-30 21:16] VITALS: BP 168/72
--- NOTE | 2024-07-30 23:03 | NUR ---
PT COMPLAINED NAUSEA. HOB ELEVATED, PT SITTING UP. NG CANNISTER WITH LIGHT PINK LIQUID. TEMP IN ROOM TURNED DOWN TO 70 PER PT CHOICE.
[2024-07-30] MEDS ORDERED: IBLOOD GLUCOSE TEST STRIP 1 EA TEST VI PRN (23:15)
--- NOTE | 2024-07-30 23:28 | NUR ---
PATIENT RESTING IN BED. BOWEL TONES HYPOACTIVE. NG TUBE AT WS. PATIENT CPOX IN PLACE. SCDs IN PLACE. IV FLUSHES WNL. PATIENT REQUESTING HIS BS TO BE CHECKED AT THIS TIME. WOMEN SPECIALIST TO ROOM TO CHECK BS. NO FURTHER NEEDS AT THIS TIME. CALL LIGHT IN REACH.
[2024-07-31] VITALS (7 sets, daily range): BP systolic 144–177; BP diastolic 60–78
[2024-07-31] MEDS ORDERED: IBLOOD GLUCOSE TEST STRIP 1 EA TEST VI SCH (02:00)
--- NOTE | 2024-07-31 02:13 | NUR ---
APPLICATION CONSULTANT CHECKED PT BLOOD SUGAR. BLOOD SUAGR IS 141. RN NOTIFED. PT STATES NO NEEDS AT THIS TIME. CALL LIGHT WITHIN REACH.
--- NOTE | 2024-07-31 03:59 | NUR ---
REEL HOOKER TOOK PT TO THE BATHROOM AND BACK TO BED.
--- NOTE | 2024-07-31 05:08 | NUR ---
BUSINESS DIVISION CHAIR OBTAINED VITALS AND I&O. PT STATES NO NEEDS AT THIS TIME. CALL LIGHT WITHIN REACH.
[2024-07-31 05:40] LABS: BASOPHILS 0.2 % (0-2); EOSINOPHILS 0.2 % (0-6); HEMATOCRIT 45.2 % (35.0-50.0); HEMOGLOBIN 14.9 g/dL (12.0-18.0); LYMPHOCYTES 4.1 % (24-44); MCH 34.4 (27-36); MCHC 32.9 g/dl (30-36); MCV 104.6 fl (81-99); NEUTROPHILS 90.5 % (39-80); PLATELET COUNT 213 K/uL (140-440); RBC 4.32 M/ul (4.3-5.7); RDW 16.3 (10.5-15.0)
[2024-07-31 05:52] LABS: ANION GAP 13.8 (7-21); BUN/CREATININE RATIO 19.44 (6.0-28.6); CALCIUM 9.5 mg/dL (8.5-10.1); CREATININE, SERUM 2.16 mg/dL (0.70-1.30); MAGNESIUM 2.1 mg/dL (1.8-2.4); POTASSIUM 4.8 mmol/L (3.5-5.1)
--- NOTE | 2024-07-31 07:15 | NUR ---
RECIEVED BEDSIDE REPORT FROM XIOMARA EAGLE. PT IS SLEEPING SOUNDLY, SOFTLY SNORING. IV RUNNING AT 75ML/HR. NO NEEDS AT THIS TIME.
[2024-07-31] MEDS ORDERED: ALLOPURINOL300 MG PO (08:20)
[2024-07-31] MEDS ORDERED: SODIUM CHLORIDE 0.9% 1,000 ML IV SCH (08:30)
--- NOTE | 2024-07-31 09:25 | NUR ---
MED REC COMPLETE
--- NOTE | 2024-07-31 09:38 | NUR ---
Patient sitting up in chair, alert and oriented x3. Patient reports 7/10 abdominal pain. Patient received morphine 4mg IV at this time.
--- NOTE | 2024-07-31 09:51 | NUR ---
UR CLINICAL REVIEW: 2 MN BRIGITTE- MEETS INPT MEDICARE INPT 07/30/24 @ 5635 ORDER MATCHES REG NO AUTH REQUIRED PER MEDICARE RULES PLAN TO DC TO HOME WHEN STABLE.
--- NOTE | 2024-07-31 11:45 | NUR ---
Spoke with Aaron. He is up in a recliner. States he is, "grumpy". He is. Pt states he is cold, but declines a blanket. He is waiting to see . He is stating he just wants to go for a walk. No one is available to help him at this time. Pt has IVS and and NG. Dr. Fish has ordered PT/OT. I spoke with OT and they will assist pt to walk in the room.
[2024-07-31] MEDS ORDERED: PHARMACY RENAL DOSE ADJUSTMENT 1 DOSE MISC PO SCH (12:00)
--- NOTE | 2024-07-31 15:00 | NUR ---
DR. Love VILLA ADVISED PT THAT HE WOULD BE HAVING A SMALL BOWEL FOLLOW THROUGH PROCEDURE. RN ADVISED HIM THAT HE CAN'T HAVE ICE CHIPS UNTIL AFTER THE PROCEDURE. PT IS UNHAPPY, BUT VERBALIZED UNDERSTANDING.
--- NOTE | 2024-07-31 15:34 | NUR ---
RN IN ROOM TO DISCONNECT NGT FOR IMAGING TO TRANSPORT TO SMALL BOWEL FOLLOW THROUGH. IV SALINE LOCKED. PT OFF FLOOR FOR STUDY.
--- NOTE | 2024-07-31 18:02 | NUR ---
PT'S RESP HAS INCREASED SLIGHTLY. BREATHING IS MORE RASPY, BUT NOT GURGLY. DISCUSSED WITH MORTGAGE LOAN COORDINATOR, WILL GIVE MSIR AND LORAZEPAM WHEN DUE AT ONE HOUR.
[2024-07-31] MEDS ORDERED: MENTHOL/ZINC OXIDE 113 GM TUBE TOP PRN (18:45)
[2024-07-31] MEDS ORDERED: CALAMINE TOP PRN (18:45)
--- NOTE | 2024-07-31 19:16 | NUR ---
SHIFT REPORT RECEIVED FROM JIGNESH RN, PT AWAKE AND ALERT, STATES HE IS DOING OK RIGHT NOW, NG REMAINS CLAMPED, ABD DISTENDENED, PT CHEERFUL AND DENIES NEEDS AT THIS TIME.
--- NOTE | 2024-07-31 19:26 | NUR ---
NG tube clamped for the night. Drainage measured and documented.
--- NOTE | 2024-07-31 21:08 | NUR ---
PT REQUESTING A SHOWER. RN DISCONNECTED IV. STENOCAPTIONER OBTAINED VITALS, I&O, AND BLOOD SUGAR. STENOCAPTIONER COVERED PT IV SITE AND ASSISTD PT SHOWER. PT GIVEN NEW PAIR OF MESH UNDERWEAR AND CLEAN GOWN. PT ABLE TO SHOWER INDEPENDENTLY. STENOCAPTIONER CHANGED PT BED LINENS. PT FINISHED SHOWERING AND ASSISTED BACK TO BED. CPOX AND SCDS RECONNECTED. PT STATES NO FURTHER NEEDS AT THIS TIME. CALL LIGHT WITHIN REACH AND RN NOTIFED THAT PT WAS DONE SHOWERING.
--- NOTE | 2024-07-31 21:27 | NUR ---
PT MEDICATED WITH 4MG MORPHINE FOR ABD PAIN. PT INSTRUCTED TO CALL FOR ASSITANCE. SR UP X 4, CALL CHAKRABORTY IN REACH, BED IN LOW POSITION AND LOCKED. SCD'S IN PLACE
--- NOTE | 2024-07-31 21:31 | NUR ---
PM ORAL CARE PROVIDED
[2024-08-01] VITALS (10 sets, daily range): BP systolic 127–199; BP diastolic 62–94
--- NOTE | 2024-08-01 00:48 | NUR ---
CALL LIGHT ANSWERED. PT NEEDED TO USE BATHROOM. LAND DEPARTMENT HEAD SBA WITH FWW TO BATHROOM. PT VOIDED AND ASSISTED BACK TO BED. PT REWUESTED A PAIN MED. PRIMARY RN NOTIFED. PT STATES NO FURTHER NEEDS AT THIS TIME. CALL LIGHT WITHIN REACH.
--- NOTE | 2024-08-01 01:02 | NUR ---
PT REQUESTING MORPHINE FOR PAIN, 01/19, PT MEDICATED WITH MORPHINE PER ORDER, PT WITH NAUSEA AFTER MEDICATION, PT TO SITTING POSITION, BLEACHING, PT MEDICATED WITH ZOFRAN PER ORDER, ORAL CARE GIVEN, PT WITHOUT EMESIS, STATES NAUSEA IMPROVING, WANTS TO SIT ON SIDE OF BED FOR A FEW MOMENT.
--- NOTE | 2024-08-01 02:46 | NUR ---
SCHEDULED ACCUCHECK COMPLETED AND CHARTED, PRIMARY RN AWARE.
--- NOTE | 2024-08-01 04:20 | NUR ---
PT SITTING ON SIDE OF BED, WITHOUT REQUESTS AT THIS TIME.
[2024-08-01 05:19] LABS: BASOPHILS 0.2 % (0-2); EOSINOPHILS 0.3 % (0-6); HEMATOCRIT 47.2 % (35.0-50.0); HEMOGLOBIN 15.9 g/dL (12.0-18.0); LYMPHOCYTES 4.3 % (24-44); MCH 34.9 (27-36); MCHC 33.6 g/dl (30-36); MCV 103.9 fl (81-99); MONOCYTES 8.6 % (0-12); NEUTROPHILS 86.6 % (39-80); PLATELET COUNT 202 K/uL (140-440); RBC 4.54 M/ul (4.3-5.7); RDW 16.2 (10.5-15.0)
[2024-08-01 05:31] LABS: ANION GAP 11.4 (7-21); CALCIUM 10.2 mg/dL (8.5-10.1); CREATININE, SERUM 2.47 mg/dL (0.70-1.30); MAGNESIUM 2.3 mg/dL (1.8-2.4); POTASSIUM 4.4 mmol/L (3.5-5.1)
--- NOTE | 2024-08-01 05:50 | NUR ---
PT LAYING DOWN IN BED, ALERT, DENIES PAIN, STATES HE IS WAITING TO HEAR WHEN HIS FOLLOW UP IMAGING STUDIES WILL BE DONE, PT DENIES NAUSEA AT THIS TIME, BP REPORTED ELEVATED PER MARIE ACUNA, BP RECHECKED AND NOW 154/72, HR 56.
--- NOTE | 2024-08-01 06:31 | NUR ---
pérez in imaging to pt room to take pt via wc for imaging.
--- NOTE | 2024-08-01 06:45 | NUR ---
pérez from imaging informed this rn, pt had small amount emesis after returning, primary rn jayda made aware. approx 100-200 mls.
--- NOTE | 2024-08-01 07:00 | NUR ---
PT RETURNED FROM IMAGING, RESTING QUIETLY IN BED, DENIES REQUESTS AT THIS TIME, IVF INFUSING WELL.
[2024-08-01] MEDS ORDERED: fentaNYL citrate 100 MCG/2 ML VIAL IV PRN (07:30)
[2024-08-01] MEDS ORDERED: SODIUM CHLORIDE 0.9% 1,000 ML IV SCH ×2 (07:30→11:45)
[2024-08-01] MEDS ORDERED: DEXTROSE 50% 50 ML SYR IV ONE (07:45)
--- NOTE | 2024-08-01 08:13 | NUR ---
INFORMED THAT 1 AMP D50 GIVEN, BLOOD SUGAR WAS 174. NO NEW ORDERS AT THS TIME. WILL RECHECK BLOOD SUGAR IN 1 HOUR.
--- NOTE | 2024-08-01 10:47 | NUR ---
NG TO LIS AT THIS TIME, CONTINUOUS TO HAVE IMPRESSIVE AMOUNT OF OUTPUT, GREENISH/BROWN IN COLOR. SINCE THIS MORNING, PT HAS A TOTAL OF 3500ML OUT, JUST REPLACE A NEW CANISTER AGAIN. PT STATES HIS NAUSEA HAS IMPROVED SINCE BEING HOOKED BACK TO SUCTION, FEELS LESS DISTENDED, BT REMAINS HYPOACTIVE, MORE ACTIVE IN THE LUQ THIS MORNING. SCDS IN PLACE. PT RESTING AT THIS TIME HE WAS RESTLESS THROUGHOUT NIGHT DUE TO DISCOMFORT. IV FLUIDS INFUSING AT 200ML/HR PER MD ORDERS THIS MORNING. DENIES ANY NEEDS AT THIS TIME, FEELS JUST DROGGY AND WANTING TO REST STILL. LIGHTS OFF AND ALL PT CARE NEEDS MET AT THIS TIME.
[2024-08-01] MEDS ORDERED: LEVOTHYROXINE SODIUM 100 MCG/5 ML VIAL IV SCH (11:15)
--- NOTE | 2024-08-01 11:26 | EKG ---
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
--- NOTE | 2024-08-01 12:36 | NUR ---
PT AMBULATES IN HALLWAY VIA FWW, ESCORTED BY ARMAND AGUAYO. PT TOLERATING ACTIVITY WELL.
--- NOTE | 2024-08-01 13:14 | NUR ---
PATIENT AMBULATED FIGURE 8 PATTERN AROUND MED/SURG FLOOR. PATIENT TOLERATED WELL, NO COMPLAINTS OF PAIN OR SHORTNESS OF BREATH. PATIENT BACK INTO CHAIR AFTER USING BR. OXYGEN ON, VITALS DONE. CALL LIGHT WITHIN REACH.
--- NOTE | 2024-08-01 14:28 | NUR ---
PT SITTING UP IN CHAIR, AMBULATED EARLIER WITH ON LINE CSR. NG TUBE NOW HOOKED BACK UP TO LIS ORDERED. DENIES NAUSEA, PAIN 4/10 BUT DENIES NEED FOR PAIN MEDS. NG TUBE STILL HAVING DARK GREEN OUTPUT. ONCE HOOKED UP 250ML OUT IMMEDIATELY. IV FLUIDS RESTARTED AT 125ML/HR ORDERED. AWAITING XRAY AT THIS TIME. DENIES ANY FURTHER NEEDS AT THIS TIME, UP TO CHAIR WATCHING TV. CALL LIGHT WITHIN REACH.
--- NOTE | 2024-08-01 14:56 | NUR ---
VERIFIED LEVOTHYROXINE IV DOSE, PER PROTOCOL NOT TO GIVE IV MED UNLESS >5 DAYS IN HOSPITAL PER PROTOCOL. UPDATED, PHARMACY GOING TO DISCONTINUE ORDER PER PROTOCOL.
--- NOTE | 2024-08-01 15:39 | NUR ---
RECIEVED HAND OFF REPORT FROM XIOMARA COTA
--- NOTE | 2024-08-01 16:45 | NUR ---
PT RESTING IN BED, EYES CLOSED. BREATHING EVEN AND UNLABORED. CALL LIGHT IN REACH
--- NOTE | 2024-08-01 18:44 | NUR ---
THIS RN AND ARMAND AGUAYO WALKED PT AROUND UNIT. PT IN RESTROOM AT THIS TIME. CALL LIGHT IN REACH. FOR WHEN FINISHED
--- NOTE | 2024-08-01 18:55 | NUR ---
PT BACK IN BED FROM BATHROOM. RECONNECTED TO INTMIT WALL SUCTION. CALL LIGHT IN REACH. DENIES NEEDS.
--- NOTE | 2024-08-01 19:10 | NUR ---
SHIFT REPORT RECEIVED FROM ELICIA RN, PT AWAKE AND ALERT, NG APPEARS TO BE IN PLACE, TO SX, PT DENIES NEEDS AT THIS TIME.
--- NOTE | 2024-08-01 20:36 | NUR ---
VS OBTAINED. DENIES ANY FURTHER NEEDS.
--- NOTE | 2024-08-01 21:09 | NUR ---
BG OBTAINED, 149. XIOMARA EGAN NOTIFIED.
--- NOTE | 2024-08-01 22:23 | NUR ---
PT AWAK AND ALERT, STATES ABD PAIN 4/10 BUT DENIES NEED FOR TYLENOL AT THIS TIME, ASSESSMENT DONE, ORAL CARE DONE, NG TO ÁNGEL SX, DRAINING LIGTH BROWN FLUID, PT REPORTS HE PASSED A LITTLE FLATUS A FEW MINUTES AGO, STATES HE FELLS SOME 'RUMBLING" IN ABD, ORAL CARE COMPLETED. IV PATENT R AC, FLUSHES WELL, SR UP X4, BED LOW POSITION, CALL LIGHT IN REACH.
--- NOTE | 2024-08-01 23:28 | NUR ---
iv pump alarming, new bag iv fluids hung and infusing as directed, iv site rmeains wnl. no further needs or concerns, call light in reach.
--- NOTE | 2024-08-01 23:45 | NUR ---
RN TO ROOM, PT DESIRES TO GO TO BR, NG CLAMPED, ASSISTED UP TO BR WITH FWW, PT DECLINES USING THE URINAL, REPORTS HE VOIDED, BACK TO BED, CPOX REATTACHED, NG BACK TO LOW INTERMIT SX, PT DENIES NEEDS AT THIS TIME, OXYGEN IN PLACE AT 2L/NC, CPOX AT 94%,.
[2024-08-02] VITALS (7 sets, daily range): BP systolic 147–170; BP diastolic 72–77
--- NOTE | 2024-08-02 01:30 | NUR ---
PT APPEARS TO SLEEP, RESP EVEN AND REGULAR, NG CANNISTER CHANGED, NOTED OUTPUT OF 950ML BROWN COLORED FLUID, NG BACK TO LOW INTERMIT SX, IVF INFUSING WELL, CONTINUES NS AT 125ML/HR.
--- NOTE | 2024-08-02 02:26 | NUR ---
PT ASLEEP, AWAKEN BRIEFLY TO OBTAIN ACCUCHECK, BLOOD GLUCOSE 133, PT RESTING WITHOUT COMPLAINTS, CPOX AT 98% ON 2L/NC.
--- NOTE | 2024-08-02 03:35 | NUR ---
PT RESTING, EYES CLOSED, OX SAT STABLE, IVF INFUSING WELL.
--- NOTE | 2024-08-02 04:40 | NUR ---
CPOX ALARMING, READJUSTED, VS DONE AND STABLE, NG REMAINS TO LOW INTERMIT SX, CONTS BROWN FLUID, PT DENIES NEEDS AT THIS TIME.
[2024-08-02 05:11] LABS: BASOPHILS 0.7 % (0-2); EOSINOPHILS 2.6 % (0-6); HEMATOCRIT 43.5 % (35.0-50.0); HEMOGLOBIN 14.2 g/dL (12.0-18.0); LYMPHOCYTES 11.8 % (24-44); MCH 34.3 (27-36); MCHC 32.6 g/dl (30-36); MCV 105.4 fl (81-99); MONOCYTES 10.4 % (0-12); NEUTROPHILS 74.5 % (39-80); PLATELET COUNT 165 K/uL (140-440); RBC 4.13 M/ul (4.3-5.7); RDW 16.6 (10.5-15.0)
[2024-08-02 05:22] LABS: ANION GAP 12.9 (7-21); BUN/CREATININE RATIO 18.1 (6.0-28.6); CALCIUM 9.2 mg/dL (8.5-10.1); CREATININE, SERUM 2.32 mg/dL (0.70-1.30); MAGNESIUM 2.1 mg/dL (1.8-2.4); POTASSIUM 3.9 mmol/L (3.5-5.1)
--- NOTE | 2024-08-02 06:58 | NUR ---
PT AWAKE AND ALERT, IVF CHANGED PER NEW ORDER TO D5W, RATE DECREASED TO 100ML/HR, SITE INTACT. NG OUTPUT 800ML LIGHT BROWN FLUID. PT DENIES PAIN.
[2024-08-02] MEDS ORDERED: DEXTROSE 5% 1,000 ML IV SCH (07:00)
--- NOTE | 2024-08-02 07:27 | NUR ---
RECIEVED SHIFT REPORT FROM XIOMARA EGAN. PT IS RESTING IN BED, EYES CLOSED BREATHING EVEN AND UNLABORED. CALL LIGHT IN REACH
--- NOTE | 2024-08-02 08:07 | NUR ---
OREN KYLE HERE TO TAKE PT FOR IMAGING. PT UNHOOKED FROM SUCTION. PLACED INTO WHEELCHAIR.
--- NOTE | 2024-08-02 08:20 | NUR ---
PT BACK FROM XRAY, IN BED, RCONNECTED TO INTERMIT WALL SUCTION. CALL LIGHT IN REACH. DENIES NEEDS AT THIS TIME
--- NOTE | 2024-08-02 09:22 | NUR ---
pt resting in bed, eyes closed, breathing even and unlabored. call light in reach
--- NOTE | 2024-08-02 10:10 | NUR ---
PT RESTING IN BED, EYES CLOSED. BREATHING EVEN AND UNLABORED. CALL LIGHT IN REACH
[2024-08-02 11:20] LABS: ANION GAP 12.3 (7-21); BUN/CREATININE RATIO 19.24 (6.0-28.6); CALCIUM 9.4 mg/dL (8.5-10.1); CREATININE, SERUM 2.39 mg/dL (0.70-1.30); POTASSIUM 4.3 mmol/L (3.5-5.1)
--- NOTE | 2024-08-02 12:00 | NUR ---
PT RESTING IN BED, EYES CLOSED BREATHING EVEN AND UNLABORED. CALL LIGHT IN REACH.
--- NOTE | 2024-08-02 13:39 | NUR ---
PATIENT IN CHAIR AFTER USING BR. PATIENT LIFTED UP LEMON SWABS AND STATED, "LAST NIGHT I HAD TO GET THE TASTE OF THESE NASTY THINGS OUT OF MY MOUTH, SO I DRANK A COUPLE GULPS FULL OF WATER BECAUSE I COULDN'T TAKE IT ANYMORE". NURSE NOTIFIED. PT HAS NO OTHER NEEDS AT THIS TIME. CALL LIGHT WITHIN REACH.
[2024-08-02] MEDS ORDERED: CEFAZOLIN SODIUM 3 GM/30 ML SYR IV SCH (15:00)
--- NOTE | 2024-08-02 15:06 | NUR ---
PT IN BATHROOM WITH ARMAND AGUAYO TO HELP ASSIST WITH WIPE DOWN FOR SURGERY. LR PRIMED AND READY FOR SURG.
[2024-08-02 15:09] LABS: ANION GAP 11.1 (7-21); BUN/CREATININE RATIO 20.61 (6.0-28.6); CALCIUM 9.2 mg/dL (8.5-10.1); CREATININE, SERUM 2.28 mg/dL (0.70-1.30); POTASSIUM 4.1 mmol/L (3.5-5.1)
--- NOTE | 2024-08-02 15:37 | NUR ---
PLACED SECUREMENT DEVICE FOR NG TUBE.
--- NOTE | 2024-08-02 17:43 | NUR ---
PT RESTING AWAKE IN BED, DENIES NEEDS AT THIS TIME. CALL LIGHT IN REACH
--- NOTE | 2024-08-02 18:53 | NUR ---
PT RESTING IN BED, AWAKE. DENIES NEEDS. CALL LIGHT IN REACH
[2024-08-02 19:08] LABS: BUN/CREATININE RATIO 19.73 (6.0-28.6); CALCIUM 9.2 mg/dL (8.5-10.1); CREATININE, SERUM 2.28 mg/dL (0.70-1.30)
--- NOTE | 2024-08-02 20:07 | NUR ---
@1910 received report from bro RN CJ. Pt in bed, ng to liws. Cpox in place, SCD"S in place as well. Eyes closed, resp even and unlabored.
--- NOTE | 2024-08-02 20:43 | NUR ---
WOKE PT FOR GLUCOSE CHECK 150. EYES CLOSED BEFORE RN OUT OF ROOM.
--- NOTE | 2024-08-02 22:00 | NUR ---
ASSESSMENT COMPLETED. DISCUSSED WITH PT THE NEED TO MEASURE HIS URINE, HE WAS AGREEABLE. VOIDED 400 DARK [place]AM[place] URINE, NO ODOR. STEADY ON FEET, HOWEVER HAS FALLS IN THE PAST DUE TO NUMBNESS IN FEET, SL FOOT DROP. A/O.
--- NOTE | 2024-08-02 22:50 | NUR ---
REPORT RECEIVED FROM FANNY SOLANO, ASSUMING CARE OF PT, PT RESTING QUIETLY WITHOUT REQUESTS.
[2024-08-03] VITALS (10 sets, daily range): BP systolic 138–170; BP diastolic 65–86
--- NOTE | 2024-08-03 00:20 | NUR ---
PT RESTING QUIETLY, RESP EVEN AND REG, D5W AT 100ML/HR, NG CONTINUES AT LOW INTERMIT SX, DRAINING BROWNISH FLUID, HOB ELEVATED APPROX 30 DEGREES, OXYGEN STILL IN PROGRESS, BED LOW POSITION.
--- NOTE | 2024-08-03 01:59 | NUR ---
PT APPEARS TO SLEEP, RESP EVEN AND REG, NG REMAINS TO LOW INTERM SX, CPOX 96% ON 2L/NC
--- NOTE | 2024-08-03 02:31 | NUR ---
ACCUCHECK COMPLETED PER SINTA INSULATION SPRAYER AND REPORTED TO BE 172 AT THIS TIME, PT WITHOUT REQUESTS AT THIS TIME.
--- NOTE | 2024-08-03 02:56 | NUR ---
PT APPEARS TO SLEEP, RESP EVEN AND REG, WITHOUT SIGNS OF DISTRESS, IVF INFUSING WELL.
--- NOTE | 2024-08-03 03:29 | NUR ---
PT RESTING QUIETLY, RESP EVEN AND REG, CPOX AT 98%, ON 2L/NC, NG AT LOW INTER SX, CONTINUES DRAINING BROWN TINQUED FLUID, NEW BAG OF D5W HUNG WITH NEW TUBING, IV SITE PATENT.
--- NOTE | 2024-08-03 04:20 | NUR ---
LORAINE ACUNA REPORTS PT RECENTLY ASSISTED UP TO BR TO VOID, PT REPORTED TO HAVE VOIDED 400LML DARK BROWNISH COLORED URINE, PT BACK TO BED, NG BACK TO LOW INTERM SX, RN TO ROOM, PT WITHOUT REQUESTS, REPORTS HE THINKS HE MAYBE PASSING SOME FLATUS, GI ASSESSMENT COMPLETED.
[2024-08-03 05:47] LABS: BASOPHILS 0.4 % (0-2); EOSINOPHILS 3.5 % (0-6); HEMATOCRIT 41.8 % (35.0-50.0); HEMOGLOBIN 13.9 g/dL (12.0-18.0); LYMPHOCYTES 16.4 % (24-44); MCH 34.7 (27-36); MCHC 33.3 g/dl (30-36); MCV 104.4 fl (81-99); MONOCYTES 12.7 % (0-12); PLATELET COUNT 166 K/uL (140-440); RBC 4.01 M/ul (4.3-5.7); RDW 15.6 (10.5-15.0)
[2024-08-03 06:02] LABS: ANION GAP 10.6 (7-21); BUN/CREATININE RATIO 21.69 (6.0-28.6); CALCIUM 8.8 mg/dL (8.5-10.1); CREATININE, SERUM 1.89 mg/dL (0.70-1.30); POTASSIUM 3.6 mmol/L (3.5-5.1)
[2024-08-03] MEDS ORDERED: CEFAZOLIN SODIUM 3 GM/30 ML SYR IV SCH (07:00)
--- NOTE | 2024-08-03 07:32 | NUR ---
PT REPORT RECIEVED FROM SHIFT SUPERVISOR RN XIOMARA EGAN, PT LAYING IN BEED WITH EYES CLOSED AND CHEST RISE EQUAL BILAT PT CPOX READS 91% PT HAS NO REQUESTS AT THIS TIME CALL LIGHT WTIHIN REACH.
--- NOTE | 2024-08-03 07:40 | NUR ---
SANDHYA, IMAGING HERE FOR PT. PT UNHOOKED TO NG AND IVF. REMAINED ON 2L.
[2024-08-03] MEDS ORDERED: DEXTROSE 5% - NACL 0.45% 1,000 ML IV SCH (07:45)
--- NOTE | 2024-08-03 07:55 | NUR ---
PT BACK FROM XRAY. REQUESTING TO USE RESTROOM. SBA, FWW. ONCE BACK IN BED RECONNECTED TO INT. WALL SUCTION, AND IVF. CPOX AT BEDSIDE. 2L NC. CALL LIGHT IN REACH.
--- NOTE | 2024-08-03 08:38 | NUR ---
PT SITTING IN BED PT CONNECTED TO INTERMEDIATE WALL SUCTION/NG. PT WEARING 2L NC AND REPORTING NO SOB. PT HAS NO CONCERNS AT THIS TIME. CALL LIGHT WITHIN REACH.
--- NOTE | 2024-08-03 08:53 | NUR ---
PATIENT IN BED AT THIS TIME. SURGICAL MANAGER ASSISTED PATIENT INTO BATHROOM TO DO CHG [place]. SURGICAL MANAGER CHANGED PATIENTS GOWN AND LINENS. CALL LIGHT WITHIN REACH, NO FURTHER NEEDS AT THIS TIME.
--- NOTE | 2024-08-03 09:33 | NUR ---
PT SITTING IN BED, PT COMPLAINES OF HEADACHE AND STATES "IT IS FROM NOT EATING AND BEING NPO" THIS NURSE SPOKE WITH PT AND EXPLAINED THEY WILL SPEAK WITH MD VILLA WHEN SEEN. PT HAS NO OTHER CONCERNS AT THIS TIME CALL LIGHT WITHIN REACH.
--- NOTE | 2024-08-03 10:46 | NUR ---
PT REPORT GIVEN TO SURGERY RN.
--- NOTE | 2024-08-03 11:15 | NUR ---
PT NOT AVAILABLE FOR VISIT. PROVIDED PRAYER.
[2024-08-03] MEDS ORDERED: ROCURONIUM BROMIDE 50 MG/5 ML SYR ONE (11:23)
[2024-08-03] MEDS ORDERED: SUCCINYLCHOLINE IN 0.9% NACL 200 MG/10 ML SYRINGE ONE (11:23)
[2024-08-03] MEDS ORDERED: SUGAMMADEX SODIUM 200 MG/2 ML ML ONE (11:23)
[2024-08-03] MEDS ORDERED: propofoL 200 MG/20 ML VIAL ONE (11:23)
[2024-08-03] MEDS ORDERED: fentaNYL citrate 100 MCG/2 ML VIAL ONE (11:23)
[2024-08-03] MEDS ORDERED: LIDOCAINE HCL 2% 5 ML SDV ONE (11:23)
[2024-08-03] MEDS ORDERED: LIDOCAINE HCL 2% 20 MG/ML VIAL INJ ONE (11:23)
[2024-08-03] MEDS ORDERED: DEXAMETHASONE SOD PHOS 4 MG/ML VIAL ONE (11:23)
[2024-08-03] MEDS ORDERED: ondansetron HCL 4 MG/2 ML VIAL ONE (11:23)
[2024-08-03] MEDS ORDERED: ACETAMINOPHEN 1,000 MG/100 ML VIAL ONE (11:23)
[2024-08-03] MEDS ORDERED: KETAMINE in NS 50 MG/5 ML SYR ONE (11:25)
[2024-08-03] MEDS ORDERED: SODIUM CHLORIDE 0.9% 0 ML IV ONE (11:27)
[2024-08-03] MEDS ORDERED: Ropivacaine HCl 0.5% 30 ML VIAL ONE (11:27)
--- NOTE | 2024-08-03 12:20 | NUR ---
ANABELLA, IMAGING CALLED XRAY SHOWED NG TUBE WAS NOT SHOWING IN XRAY, BUT WAS IN HIS NOSE. SPOKE WITH ALLEN, VERBAL GIVEN TO REMOVE NG. THIS RN WENT TO IMAGING DEPARTMENT AND PULLED NG TUBE.
--- NOTE | 2024-08-03 12:30 | NUR ---
Spoke with Aaron. He denies needs. Started passing gas. Surgery was cancelled.
--- NOTE | 2024-08-03 13:01 | NUR ---
PATIENT IN BED AT THIS TIME. FUNDRAISING SPECIALIST ASSISTED PATIENT INTO BATHROOM AND THEN BACK TO BED. CALL LIGHT WITHIN REACH, NO FURTHER NEEDS AT THIS TIME.
[2024-08-03] MEDS ORDERED: LACTATED RINGER'S 1,000 ML IV SCH (13:45)
--- NOTE | 2024-08-03 14:40 | NUR ---
PT RETURNED FROM IMAGING AND RETURNED TO THE BATHROOM. PT INSTRUCTED TO USE CALL CORD WHEN READY TO RETURN TO BED. PT VERBALIZED UNDERSTANDING.
--- NOTE | 2024-08-03 14:44 | NUR ---
PT HAD A BOWEL MOVMENT WHICH IS THE FIRST ONE SINCE ADMISSION. PT TRANSPORTED TO IMAGING VIA WHEEELCHAIR. PT HAS NO CONCERNS AT THIS TIME.
--- NOTE | 2024-08-03 15:12 | NUR ---
PT MOVED FROM BATHROOM TO BED, PT TOLERATED ACTIVITY WELL WITH IMAGING AND HAS NO CONCERNS AT THIS TIME PT HAS CALL LIGHT WITHIN REACH.
--- NOTE | 2024-08-03 16:36 | NUR ---
CALLED ALLEN WITH UPDATE PT IS HAVING BOWEL MOVEMENTS. ALLEN GAVE VERBAL ORDER TO CHANGE DIET TO CLEAR LIQUIDS.
--- NOTE | 2024-08-03 16:40 | NUR ---
PT AMBULATED TO THE RERSTROOM PT HAS BE TOLERATING ACTIVITY WELL AND AMBULATED TO RESTROOM ON THEIR OWN. PT WILL CALL IF ASSISTANCE IS NEEDED.
--- NOTE | 2024-08-03 17:46 | NUR ---
PT SITTING IN BED CURRENTLY, LAB TESTER MOVED THE COMODE NEAR THE PT BED DUE TO HIM HAVING TO HAVE URGENT BOWEL MEVMENTS DUE TO THE BOWEL CARE MEDICATIONS RECIEVED EARLIER (SEE EMAR). PT HAS NO CONCERNS AT THIS TIME CALL LIGHT WITHIN REACH.
--- NOTE | 2024-08-03 17:59 | NUR ---
PT HAS HAD MULTIPLE BM TODAY AFTER NOT GOING TO SURGERY. PT UPDATED TO CLEAR DIET. PT SAYS " HE IS FEELING BETTER AND EXCITED TO NOT HAVE SURGERY" PT BOWEL SOUNDS ACTIVE AND HAS NO CONCERNS AT THIS TIME CALL LIGHT WITHIN REACH.
--- NOTE | 2024-08-03 19:06 | NUR ---
SHIFT REPORT RECEIVED FROM ERIBERTO SOLANO AND ELICIA SOLANO, ASSUMING CARE OF PT.
--- NOTE | 2024-08-03 19:58 | NUR ---
PT APPEARS TO SLEEP, CPAP IN PLACE, HOB ELEVATED,
--- NOTE | 2024-08-03 20:46 | NUR ---
DR VILLA TO ROOM TO TALK WITH PATIENT, DISCUSSED RESTART OF COUMADIN AND PLAN OF CARE.
[2024-08-03] MEDS ORDERED: WARFARIN SOD 5 MG TAB PO SCH (21:00)
[2024-08-03] MEDS ORDERED: IBLOOD GLUCOSE TEST STRIP 1 EA TEST VI SCH (21:00)
[2024-08-03] MEDS ORDERED: WARFARIN SOD 5 MG TAB PO ONE (21:00)
--- NOTE | 2024-08-03 21:24 | NUR ---
LORAINE RIZOA TO ROOM FOR VS, REPORTED PT UP TO BR TO VOID BUT UNMEASURED, NO REQUESTS REPORTED AT THIS TIME.
--- NOTE | 2024-08-03 22:03 | NUR ---
PT AWAKE AND ALERT, SITTING UP IN BED, COUMADIN 10MG PO GIVEN PER NEW ORDER BY DR VILLA, ASSESSMENT COMPLETED, PT REQUESTING A BREAK FROM SCD'S, PT WAS ASKED TO LET RN KNOW WHEN HE IS READY TO PUT CPAP ON AND GO TO SLEEP, PT AGREES, DISCUSSED NEED TO HAVE HIS URINE MEASURED DUE TO BEING ON IVF, HAT PLACED IN TOILET, IV SITE PATENT, LR INFUSING WELL AT 85ML/HR. PT DENIES PAIN, GIVEN JELLO AND WATER PER REQUEST.
--- NOTE | 2024-08-03 23:38 | NUR ---
PT ASLEEP, RESP EVEN AND REG, CPAP ON AND IN PLACE, PT LEFT UNDISTURBED AT THIS TIME.
--- NOTE | 2024-08-04 00:10 | NUR ---
PT APPEARS TO BE SLEEPING, RESP EVEN AND REG, CPAP IN PLACE.
[2024-08-04 00:48] VITALS: BP 150/78
--- NOTE | 2024-08-04 01:28 | NUR ---
PT APPEARS TO SLEEP, RESP EVEN AND REG, CPAP REMAINS ON, LEFT UNDISTURBED AT THIS TIME.
--- NOTE | 2024-08-04 02:20 | NUR ---
PT RESTING QUIETLY, RESP EVEN AND REG, CPAP REMAINS ON, NEW LITER OF LR HUNG, IV INFUSING WELL AT 85ML/HR. SITE INTACT.
--- NOTE | 2024-08-04 03:39 | NUR ---
PT CONTINUES TO SLEEP, RESP EVEN AND REG, CPAP IN PLACE.
[2024-08-04 04:00] VITALS: BP 169/88
--- NOTE | 2024-08-04 04:00 | NUR ---
PT AWAKE AND ALERT, STATES HE FEELS HE MAY HAVE BEEN INCONTINENT OF STOOL, SMALL AMOUNT YELLOW LIQUID STOOL NOTED ON CHUX, PT UP TO BR, STATES HE PASSED MORE LIQUID STOOL, PT TOOK OUT MEASURING DEVICE AND DENIES VOIDING AT THIS TIME, PT BACK TO BED, DENIES NEEDS, PLANS TO REST MORE, CPAP IN REPLACED.
[2024-08-04 05:35] LABS: BASOPHILS 0.6 % (0-2); EOSINOPHILS 3.2 % (0-6); HEMOGLOBIN 13.9 g/dL (12.0-18.0); LYMPHOCYTES 15.8 % (24-44); MCH 34.8 (27-36); MCHC 33.8 g/dl (30-36); MCV 102.9 fl (81-99); MONOCYTES 8.6 % (0-12); NEUTROPHILS 71.8 % (39-80); PLATELET COUNT 172 K/uL (140-440); RBC 3.98 M/ul (4.3-5.7); RDW 15.2 (10.5-15.0)
[2024-08-04 05:45] LABS: ANION GAP 11.5 (7-21); BUN/CREATININE RATIO 17.91 (6.0-28.6); CALCIUM 8.7 mg/dL (8.5-10.1); CREATININE, SERUM 1.73 mg/dL (0.70-1.30); MAGNESIUM 1.8 mg/dL (1.8-2.4); POTASSIUM 3.5 mmol/L (3.5-5.1)
--- NOTE | 2024-08-04 06:10 | NUR ---
PT APPEARS TO SLEEP, RESP EVEN AND REG, CPAP IN PLACE.
[2024-08-04 06:47] VITALS: BP 169/88
--- NOTE | 2024-08-04 06:59 | NUR ---
PT ASLEEP, AWAKEN BRIEFLY FOR AC ACCUCHECK, RESULT OF 110, PT WITHOUT REQUESTS
[2024-08-04] MEDS ORDERED: WARFARIN SOD 5 MG TAB PO SCH ×2 (07:17→16:00)
--- NOTE | 2024-08-04 07:29 | NUR ---
RECIEVED MORNING REPORT FROM XIOMARA EGAN. PT LAYING IN BED WITH EYES CLOSED AND CPAP MACHINE ON WITH CHEST RISE EQUAL BILAT. PT HAS NO CONCERNS AT THIS TIME WITH CALL LIGHT WITHIN REACH.
[2024-08-04 09:47] VITALS: BP 157/85
--- NOTE | 2024-08-04 10:09 | NUR ---
IV IS TAKEN OUT. PATIENT GETTING DRESSED.
--- NOTE | 2024-08-04 10:24 | NUR ---
PT DISCHARGED FROM MED/SURG UNIT. PT AMBULATORY BUT TAKEN TO LOBBY IN WHEEL CHAIR OCOMPANIED BY NURSING PERSONEL. PT REQUESTED TO WEIGH SELF BEFORE LEAVING THE DEPARTMENT. PT HAS ALL BELONGINGS IN PERSONAL BAG.
--- NOTE | 2024-08-06 11:35 | CONS ---
[facility] [address] [place], [place] [address] Signed DATE OF CONSULTATION: 07/30/2024 REASON FOR CONSULTATION: Small bowel obstruction. REQUESTING PHYSICIAN: Dr. Fish. HISTORY OF PRESENT ILLNESS: This 64-year-old white man is known to me from the distant past. I have performed colonoscopy on him in the past diagnosing a colon cancer. At that time, he was well over 400 pounds and he was referred elsewhere for definitive resection. He did undergo resection and as might be predicted developed an incisional hernia in the lower part of the wound in the midline. He subsequently underwent operative repair he says. He presented to the emergency room approximately at 10:24 today, July 30, 2024 having left sided abdominal pain, nausea and vomiting and inability to tolerate medications. He has had a small bowel obstruction in the past, it is thought. The patient has underlying other problems including not only colectomy for colon cancer, but left renal tumor requiring nephrectomy and right arm operation. He does have underlying gout. He is thought to have underlying atrial flutter and atrial fibrillation and is anticoagulated with warfarin 10 mg daily. Other medical issues include hypothyroidism, ongoing obesity though improved now, BMI only 42.1 and dyslipidemia. CURRENT MEDICATIONS: Include allopurinol daily, magnesium oxide, Tylenol, ferrous sulfate, torsemide 10 mg daily, Coumadin 10 mg daily, atorvastatin daily, terbinafine, Farxiga, vitamin D3 and vitamin B12 as well as hydralazine tablets as needed and Synthroid. ALLERGIES: He has no known drug allergies. SOCIAL HISTORY: He is a former smoker, but no longer smokes. Does not use alcohol. He lives in [place]. His mother two years ago or so. I took care of her in various ways in the past. REVIEW OF SYSTEMS: He denies any shortness of breath or chest pain. His abdominal pain is well controlled at this time. Denies any hematemesis or blood per rectum. Electronically Signed By: LILY VILLA MD 08/06/24 1135 PATIENT NAME: LILY VALENTIN CONSULTATION DATE OF : 62 REPORT #: [id number] PHYSICIAN: LILY VILLA MD PCP: MARCELINO QUIÑONES DO REPORT IS CONFIDENTIAL AND NOT TO BE RELEASED WITHOUT AUTHORIZATION [facility] [address] [place], [place] [address] Signed PHYSICAL EXAMINATION: GENERAL: An obese white man who looks to be in no distress at this time. Weight is now 297 pounds. NECK: Trachea is midline. CHEST: Shows normal respiratory excursion. Pulses regular. ABDOMEN: Obese, but soft. There is midline incision above and below the umbilicus and at the umbilicus. Some thinning of the underlying fascia. IMAGING: Review of the CT scan was undertaken showing small bowel obstruction with a transition point in the midline in the region of the previous hernia repair. 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 He also has a left adrenal fatty lesion 1.6 cm consistent with adrenal myelolipoma. He does have pancreatic cancer and an exophytic cyst measuring 1.1 cm. LABORATORY STUDIES: Show white count at admission of 10.5, hematocrit 43.6, platelets 241,000. Chem profile normal. Creatinine 2.08. ASSESSMENT: I reviewed the CT scan in detail. There definitely does appear to be decompressed bowel juxtaposed to markedly dilated bowel, all of the confluence at the midline from prior hernia repair or wound incision. The lesion looks to be high-grade on the basis of what is seen now. A nasogastric tube was placed, but does not show much drainage at this time. He has no tenderness in the abdominal wall or intraabdominal viscera and no ongoing vomiting. He does have numerous comorbidities perhaps and it is the reason he was admitted to the Medicine Service rather than General Surgery. In any case, he is being managed appropriately with IV fluids, nasogastric tube decompression, pain medication as needed, and so on. PLAN: We will get a KUB x-ray tomorrow and assess for progress regarding spontaneous resolution of bowel obstruction. He may benefit from a surgeon small bowel follow-through to better characterize the level of obstruction anticipating the possible need for surgery. Discussed all this with him in detail. He understands and agrees to this plan also. Lily Villa MD Electronically Signed By: LILY VILLA MD 08/06/24 1135 PATIENT NAME: LILY VLAENTIN CONSULTATION DATE OF : 62 REPORT #: [id number] PHYSICIAN: LILY VILLA MD PCP: MARCELINO QUIÑONES DO REPORT IS CONFIDENTIAL AND NOT TO BE RELEASED WITHOUT AUTHORIZATION [address] [address] Signed /FADIA /[id number] cc: MD Marcelino Negro DO Dr. Morello Copies: MARCELINO QUIÑONES DO ~ Electronically Signed By: LILY VILLA MD 08/06/24 1135 PATIENT NAME: LILY VALENTIN ALIA CONSULTATION DATE OF : 62 REPORT #: [id number] PHYSICIAN: LILY VILLA MD PCP: MARCELINO QUIÑONES DO REPORT IS CONFIDENTIAL AND NOT TO BE RELEASED WITHOUT AUTHORIZATION
== END 2024-08-04 10:20 | disposition home or self-care (01) | DRG 389 ==
LOC: ED 10:23 → MS 10:25
PROVIDERS: Emergency Medicine; ADMIT Student in an Organized Health Care Education/Training Program; ATTEND Internal Medicine
DX: K56.609 Unspecified intestinal obstruction, unspecified as to partial versus complete obstruction (principal); I48.92 Unspecified atrial flutter; Z68.41 Body mass index [BMI] 40.0-44.9, adult; I50.32 Chronic diastolic (congestive) heart failure; K86.2 Cyst of pancreas; E03.9 Hypothyroidism, unspecified; I48.91 Unspecified atrial fibrillation; E66.9 Obesity, unspecified; E78.5 Hyperlipidemia, unspecified; M10.9 Gout, unspecified; D50.9 Iron deficiency anemia, unspecified; N18.30 Chronic kidney disease, stage 3 unspecified; D17.71 Benign lipomatous neoplasm of kidney; D17.79 Benign lipomatous neoplasm of other sites; Z85.038 Personal history of other malignant neoplasm of large intestine; Z90.49 Acquired absence of other specified parts of digestive tract; Z90.5 Acquired absence of kidney; Z85.528 Personal history of other malignant neoplasm of kidney; Z79.01 Long term (current) use of anticoagulants; Z87.891 Personal history of nicotine dependence
CPT/HCPCS: 36415; 71045; 74018; 74176; 74250; 80048; 80053; 80307; 81003; 83036; 83690; 83735; 83880; 84484; 85025; 85610; 85730; 93005; 93010; 94660; 94762; 97161; 97165; 97530; J0131; J0330; J1100; J1171; J2003; J2270; J2405; J2470; J2704; J2795; J3010; J3490; J7030; J7040; J7070; J7121

== ENCOUNTER 2024-09-18 11:01 | Emergency (ER) | payer MEDICARE, BC ==
[~2024-09-18] VITALS: Ht 180.3 cm; Wt 142.0 kg
[2024-09-18 11:36] LABS: BASOPHILS 0.4 % (0-2); EOSINOPHILS 1.2 % (0-6); HEMATOCRIT 41.9 % (35.0-50.0); HEMOGLOBIN 14.2 g/dL (12.0-18.0); LYMPHOCYTES 16.8 % (24-44); MCHC 33.8 g/dl (30-36); MCV 103.6 fl (81-99); MONOCYTES 5.9 % (0-12); NEUTROPHILS 75.7 % (39-80); PLATELET COUNT 187 K/uL (140-440); RBC 4.05 M/ul (4.3-5.7); RDW 16.4 (10.5-15.0)
[2024-09-18 11:40] LABS: INR 1.71 (0.80-1.30)
[2024-09-18] MEDS ORDERED: ondansetron HCL 4 MG/2 ML VIAL IV ONE (11:45)
[2024-09-18] MEDS ORDERED: MECLIZINE HCL 25 MG TAB PO ONE ×2 (11:45→18:45)
[2024-09-18] MEDS ORDERED: diazePAM 5 MG TAB PO ONE (11:45)
[2024-09-18 11:49] LABS: ALBUMIN 3.5 g/dL (3.4-5.0); ALBUMIN/GLOBULIN RATIO 1.13 (1.1-2.4); ANION GAP 15.3 (7-21); BILIRUBIN, TOTAL 0.5 ng/dL (0.2-1.0); BUN/CREATININE RATIO 24.3 (6.0-28.6); CREATININE, SERUM 1.81 mg/dL (0.70-1.30); POTASSIUM 4.3 mmol/L (3.5-5.1); PROTEIN, TOTAL 6.6 g/dL (6.4-8.2)
[2024-09-18] MEDS ORDERED: ONDANSETRON ODT4 MG PO (18:31)
[2024-09-18] MEDS ORDERED: MECLIZINE HCL25 MG PO (18:31)
[2024-09-18] MEDS ORDERED: ATIVAN1 MG PO (18:31)
[2024-09-18] MEDS ORDERED: LORazepam 1 MG HOME.PACK PO ONE (18:45)
[2024-09-18] MEDS ORDERED: ONDANSETRON 4 MG TAB ODT SL ONE (18:45)
[2024-09-18 18:55] VITALS: BP 132/82
--- NOTE | 2024-09-18 22:17 | EKG ---
[facility] [address] [place] [address] Signed Atrial flutter with variable AV block with premature ventricular or aberrantly conducted complexes Left axis deviation Right bundle branch block Inferior infarct , age undetermined Anterior infarct , age undetermined Abnormal ECG When compared with ECG of 30-JUL-2024 11:23, No significant change was found Confirmed by Humberto Musa MD () on 09/18/2024 10:17:21 PM Electronically Signed By: HUMBERTO MUSA MD 09/18/24 2217 PATIENT NAME: LILY VALENTIN Electrocardiogram DATE OF : 62 PHYSICIAN: HUMBERTO MUSA MD REPORT #: [id number] REPORT IS CONFIDENTIAL AND NOT TO BE RELEASED WITHOUT AUTHORIZATION
== END 2024-09-18 18:55 | disposition home or self-care (01) ==
LOC: ED 11:01
PROVIDERS: Emergency Medicine
DX: R42 Dizziness and giddiness (principal); I11.0 Hypertensive heart disease with heart failure; I50.9 Heart failure, unspecified; G47.30 Sleep apnea, unspecified; E03.9 Hypothyroidism, unspecified; I48.91 Unspecified atrial fibrillation; E66.9 Obesity, unspecified; Z87.891 Personal history of nicotine dependence; Z79.01 Long term (current) use of anticoagulants; Z79.890 Hormone replacement therapy; Z79.899 Other long term (current) drug therapy
CPT/HCPCS: 36415; 70551; 71045; 80053; 84484; 85025; 85610; 93005; 93010; 96374; 99285-25; A9270; J2405

== ENCOUNTER 2025-01-15 20:16 | Emergency (ER) | payer MEDICARE, BC ==
[~2025-01-15] VITALS: Ht 180.3 cm; Wt 136.5 kg
[~2025-01-15 20:16] MED LIST changes: +ATIVAN1 MG PO; +MECLIZINE HCL25 MG PO; +ONDANSETRON ODT4 MG PO
[2025-01-15] MEDS ORDERED: TRANEXAMIC ACID 1,000 MG/10 ML AMP TOP ONE (20:45)
[2025-01-15 20:46] LABS: BASOPHILS 0.4 % (0.2-1.2); EOSINOPHILS 1.4 % (0.8-7.0); HEMATOCRIT 42.2 % (40.1-51.0); HEMOGLOBIN 13.7 g/dL (13.7-17.5); LYMPHOCYTES 16.3 % (21.8-53.1); MCH 33.7 PG (25.7-32.2); MCHC 32.5 g/dL (32.3-36.5); MCV 103.7 fL (79.0-92.2); MONOCYTES 6.9 % (5.3-12.2); NEUTROPHILS 74.6 % (34.0-67.9); PLATELET COUNT 207 K/uL (163-337); RBC 4.07 M/uL (4.63-6.08)
[2025-01-15 20:57] LABS: INR 2.17 (0.80-1.30); PROTIME 22.8 Sec (11.2-14.2)
[2025-01-15 21:02] LABS: ALBUMIN 3.3 g/dL (3.4-5.0); ALBUMIN/GLOBULIN RATIO 1.03 (1.1-2.4); ANION GAP 12.4 (7-21); BILIRUBIN, TOTAL 0.4 mg/dL (0.2-1.0); BUN/CREATININE RATIO 19.66 (6.0-28.6); CALCIUM 8.9 mg/dL (8.5-10.1); CREATININE, SERUM 1.78 mg/dL (0.70-1.30); POTASSIUM 4.4 mmol/L (3.5-5.1); PROTEIN, TOTAL 6.5 g/dL (6.4-8.2)
[2025-01-15 21:27] LABS: ABO A; RH POSITIVE
[2025-01-15 21:28] LABS: ANTIBODY SCREEN NEGATIVE
[2025-01-15 21:45] LABS: BILIRUBIN, URINE NEGATIVE (negative); BLOOD/HGB, URINE NEGATIVE (Negative); KETONE, URINE NEGATIVE (Negative); LEUK ESTERASE, URINE NEGATIVE (negative); NITRITE, URINE NEGATIVE (negative)
[2025-01-15] MEDS ORDERED: KLAYESTA15 GM TOP (21:54)
[2025-01-15 22:16] VITALS: BP 147/64
== END 2025-01-15 22:23 | disposition home or self-care (01) ==
LOC: ED 20:16
PROVIDERS: Family Medicine
DX: K62.5 Hemorrhage of anus and rectum (principal); B37.2 Candidiasis of skin and nail; I11.0 Hypertensive heart disease with heart failure; I50.9 Heart failure, unspecified; G47.33 Obstructive sleep apnea (adult) (pediatric); Z87.891 Personal history of nicotine dependence; Z90.89 Acquired absence of other organs
CPT/HCPCS: 36415; 80053; 81003; 85025; 85610; 86850; 86900; 86901; 99283

== ENCOUNTER 2025-03-05 02:50 | Emergency (ER) | payer MEDICARE, BC ==
[~2025-03-05] VITALS: Ht 180.3 cm; Wt 136.5 kg
[~2025-03-05 02:50] MED LIST changes: +KLAYESTA15 GM TOP
[2025-03-05] MEDS ORDERED: PANTOPRAZOLE SODIUM 40 MG/10 ML VIAL IV ONE (03:15)
[2025-03-05 03:19] LABS: BASOPHILS 0.3 % (0.2-1.2); EOSINOPHILS 1.4 % (0.8-7.0); LYMPHOCYTES 20.8 % (21.8-53.1); MCH 33.5 PG (25.7-32.2); MCHC 32.7 g/dL (32.3-36.5); MCV 102.5 fL (79.0-92.2); MONOCYTES 6.6 % (5.3-12.2); NEUTROPHILS 70.3 % (34.0-67.9); RBC 4.33 M/uL (4.63-6.08)
[2025-03-05 03:32] LABS: INR 3.41 (0.80-1.30); PROTIME 32.6 Sec (11.2-14.2)
[2025-03-05 03:35] LABS: ALT (SGPT) 31.0 U/L (14-59); AST (SGOT) 20.0 U/L (15-37); GLOMERULAR FILTRATION RATE,EST 35.0 mL/min (>60); PROTEIN, TOTAL 7.2 g/dL (6.4-8.2); UREA NITROGEN 60.0 mg/dL (7-18)
[2025-03-05] MEDS ORDERED: TRANEXAMIC ACID 1,000 MG/10 ML AMP TOP ONE (03:45)
[2025-03-05] MEDS ORDERED: PROTONIX40 MG PO (03:53)
[2025-03-05 03:55] LABS: ABO A; ANTIBODY SCREEN NEGATIVE; RH POSITIVE
[2025-03-05] MEDS ORDERED: PROSHIELD PLUS113 GM TOP (03:55)
[2025-03-05 04:10] VITALS: BP 125/76
--- NOTE | 2025-03-06 22:28 | EKG ---
[facility] [address] [facility] [place] [address] Signed Atrial fibrillation Left axis deviation Right bundle branch block Inferior infarct (cited on or before 19-DEC-2019) Anteroseptal infarct (cited on or before 19-DEC-2019) Abnormal ECG When compared with ECG of 18-SEP-2024 11:06, Atrial fibrillation has replaced Atrial flutter ST elevation has replaced ST depression in Inferior leads Confirmed by Humberto Musa MD () on 03/06/2025 10:28:04 PM Electronically Signed By: HUMBERTO MUSA MD 03/06/25 2228 PATIENT NAME: LILY VALENTIN Electrocardiogram DATE OF : 62 PHYSICIAN: HUMBERTO MUSA MD REPORT #: [id number] REPORT IS CONFIDENTIAL AND NOT TO BE RELEASED WITHOUT AUTHORIZATION
== END 2025-03-05 04:10 | disposition home or self-care (01) ==
LOC: ED 02:50
PROVIDERS: Family Medicine
DX: K92.1 Melena (principal); I11.0 Hypertensive heart disease with heart failure; I50.9 Heart failure, unspecified; G47.33 Obstructive sleep apnea (adult) (pediatric); Z87.891 Personal history of nicotine dependence
CPT/HCPCS: 36415; 80053; 85025; 85610; 85730; 86850; 86900; 86901; 93005; 93010; 96374; 99285-25; J2470

== ENCOUNTER 2025-05-12 09:49 | Day surgery (SDC) | payer MEDICARE, BC ==
[~2025-05-12] VITALS: Ht 180.3 cm; Wt 140.0 kg
[~2025-05-12 09:49] MED LIST changes: +COREG6.25 MG PO; +IBLOOD GLUCOSE TEST STRIP 1 EA TEST VI PRN; +LACTATED RINGER'S 1,000 ML IV SCH; +LIDOCAINE HCL 1% 5 ML SDV INJ ONE; +PROSHIELD PLUS113 GM TOP; +PROTONIX40 MG PO
[2025-05-12 10:01] VITALS: BP 158/73
[2025-05-12 10:25] LABS: INR 1.76 (0.80-1.30); PROTIME 19.9 Sec (11.2-14.2)
[2025-05-12] MEDS ORDERED: LIDOCAINE HCL 2% 5 ML SDV ONE (11:15)
[2025-05-12] MEDS ORDERED: GLUCAGON,HUMAN RECOMBINANT 1 MG/ML VIAL ONE (12:34)
[2025-05-12] MEDS ORDERED: GLYCOPYRROLATE 1 MG/5 ML MDV ONE (12:47)
--- NOTE | 2025-05-12 13:47 | NUR ---
05/12/25 Molly7 Deidra Garcia 1309- PT PRESENTS TO PACU, SEMI MOON POSITION, NON REACTIVE TO STIMULUS. OPA IN PLACE WITH NC IN THE CENTER OF IT WITH 6L O2, BREATHING EVEN AND NON LABORED. LR INFUSING TO RW IV. ABD SOFT, ROUND, NON DISTENDED. ALL MONITORS IN PLACE. 1313- PT REACTIVE TO STIMULUS, OPA REMOVED, O2 MOVED TO NOSE AND TURNED DOWN TO 4L PER NC. PT FALLS BACK TO SLEEP. 1325- PT WAKES OFF AND ON, DENIES PAIN OR NAUSEA. CONVERSING WITH STAFF, ENCOURAGED TO PASS GAS. DR PRAJAPATI AT BEDSIDE TO DISCUSS FINDINGS. 1338- PT MOVED TO ROOM AIR. 1340- HEAD OF BED ELEVATED, ICE WATER PROVIDED, TOLERATING WELL. FEELS A LITTLE "GROGGY". NO DIZZINESS OR NAUSEA.
[2025-05-12 14:01] VITALS: BP 161/82
[2025-05-13] MEDS ORDERED: PANTOPRAZOLE SO40 MG PO (11:00)
--- NOTE | 2025-05-14 10:13 | PATH ---
[facility] [address] [place] [address] [place], [place] [address] Signed SPECIMEN(S): A ANTRUM BIOPSY SPECIMEN(S): B COLON POLYP, 100 CM SPECIMEN(S): C COLON POLYP, 130 CM SPECIMEN(S): D ILEOCECAL VALVE POLYP SPECIMEN(S): E COLON POLYP, 90 CM SPECIMEN(S): F COLON POLYP, 80 CM SPECIMEN(S): G SPLENIC FLEXURE POLYP SPECIMEN SOURCE: A. ANTRUM BIOPSY B. COLON POLYP, 100 CM C. COLON POLYP, 130 CM D. ILEOCECAL VALVE POLYP E. COLON POLYP, 90 CM F. COLON POLYP, 80 CM G. SPLENIC FLEXURE POLYP CLINICAL HISTORY: History of Black stools, epigastric pain, gastritis FINAL PATHOLOGIC DIAGNOSIS: A. Antrum, biopsy - Minimal chronic gastritis with vascular congestion, negative for active inflammation or intestinal metaplasia. - No H. pylori bacteria are detected by HE stain. B. Colon polyp at 100 cm - Tubular adenoma. C. Colon polyp at 130 cm - Fragments of tubular adenoma. D. Ileocecal valve polyp - Tubular adenoma. E. Colon polyp at 90 cm - Tubular adenoma. F. Colon polyp at 80 cm - Tubular adenoma. G. Splenic flexure polyp - Tubular adenoma. AMB MICROSCOPIC EXAMINATION: Histologic sections of all submitted blocks are examined by light microscopy. PATIENT NAME: LILY LATHAM PATHOLOGY DATE OF : 62 REPORT #: [id number] PHYSICIAN: MAC PATHOLOGY PCP: DEB QUIÑONES DO REPORT IS CONFIDENTIAL AND NOT TO BE RELEASED WITHOUT AUTHORIZATION [facility] [address] [place], [place] [address] Signed These findings, together with the gross examination, support the pathologic diagnosis. GROSS DESCRIPTION: A. The specimen, labeled and designated "Yeison, antrum biopsy," is received in formalin and consists of one ramirez soft tissue fragment, 0.4 cm. Entirely submitted in (A1). B. The specimen, labeled and designated "Yeison, colon polyp, 100 cm," is received in formalin and consists of two ramirez soft tissue fragments, ranging from 0.3-0.4 cm. Entirely submitted in (B1). C. The specimen, labeled and designated "Latham, colon polyp, 130 cm," is received in formalin and consists of four ramirez soft tissue fragments, ranging from 0.3-0.7 cm. Entirely submitted in (C1). D. The specimen, labeled and designated "Yeison, ileocecal valve polyp," is received in formalin and consists of one ramirez soft tissue fragment, 0.4 cm. Entirely submitted in (D1). E. The specimen, labeled and designated "Latham, colon polyp, 90 cm," is received in formalin and consists of one ramirez soft tissue fragment, 0.4 cm. Entirely submitted in (E1). F. The specimen, labeled and designated "Latham, colon polyp, 80 cm," is received in formalin and consists of two ramirez soft tissue fragments, ranging from 0.1-0.3 cm. Entirely submitted in (F1). G. The specimen, labeled and designated "Yeison, splenic flexure polyp," is received in formalin and consists of one ramirez soft tissue fragment, 0.3 cm. Entirely submitted in (G1). VB (under the direct supervision of a pathologist) The Gross Description was prepared using a voice recognition system. The report was reviewed for accuracy; however, sound-alike word errors, addition and/or deletions may occur. If there is any question about this report, please contact Client Services. ADDITIONAL NOTES: Immunohistochemical and/or in situ hybridization studies if performed in this case included appropriate positive controls that reacted as expected. This test was developed and its performance characteristics determined by [facility]. It has not been cleared or approved by the U.S. Food and Drug Administration. The FDA has determined that such clearance or approval is not necessary. This test is used for clinical purposes. It should not be regarded as investigational or for research. [facility] is certified under the Clinical Laboratory Improvement PATIENT NAME: LILY LATHAM PATHOLOGY DATE OF : 62 REPORT #: [id number] PHYSICIAN: MAC VASQUEZ PCP: DEB QUIÑONES DO REPORT IS CONFIDENTIAL AND NOT TO BE RELEASED WITHOUT AUTHORIZATION [facility] [address] [place], [place] [address] Signed Amendments of 1988 (CLIA) as qualified to perform high complexity clinical laboratory testing. PERFORMING LABORATORY: Technical component was performed by [facility], [address] [place] [id number] (CLIA# [id number]). Professional interpretation was performed by [facility] - [address] [id number] Diagnostician: Maci Cabrera MD Pathologist Electronically Signed 05/14/2025 Copies: ~ PATIENT NAME: YEISONLILY ALIA PATHOLOGY DATE OF : 62 REPORT #: [id number] PHYSICIAN: MAC VASQUEZ PCP: DEB QUIÑONES DO REPORT IS CONFIDENTIAL AND NOT TO BE RELEASED WITHOUT AUTHORIZATION
== END 2025-05-12 14:18 | disposition home or self-care (01) ==
LOC: DS 09:49
PROVIDERS: Nurse Anesthetist, Certified Registered; ATTEND Surgery
PROC: 0DBK8ZX Excision of Ascending Colon, Via Natural or Artificial Opening Endoscopic, Diagnostic (ICD-10-PCS; 2025-05-12)
PROC: 0DBL8ZX Excision of Transverse Colon, Via Natural or Artificial Opening Endoscopic, Diagnostic (ICD-10-PCS; 2025-05-12)
PROC: 0DBN8ZX Excision of Sigmoid Colon, Via Natural or Artificial Opening Endoscopic, Diagnostic (ICD-10-PCS; 2025-05-12)
PROC: 0DBC8ZX Excision of Ileocecal Valve, Via Natural or Artificial Opening Endoscopic, Diagnostic (ICD-10-PCS; 2025-05-12)
PROC: 0DBM8ZX Excision of Descending Colon, Via Natural or Artificial Opening Endoscopic, Diagnostic (ICD-10-PCS; 2025-05-12)
PROC: 0DB68ZX Excision of Stomach, Via Natural or Artificial Opening Endoscopic, Diagnostic (ICD-10-PCS; principal; 2025-05-12 11:00)
PROC: 3E0H8KZ Introduction of Other Diagnostic Substance into Lower GI, Via Natural or Artificial Opening Endoscopic (ICD-10-PCS; 2025-05-12 11:00)
DX: D12.0 Benign neoplasm of cecum (principal); D12.2 Benign neoplasm of ascending colon; D12.3 Benign neoplasm of transverse colon; D12.4 Benign neoplasm of descending colon; K29.51 Unspecified chronic gastritis with bleeding; K25.4 Chronic or unspecified gastric ulcer with hemorrhage; K63.5 Polyp of colon; Z85.038 Personal history of other malignant neoplasm of large intestine; Z90.49 Acquired absence of other specified parts of digestive tract; Z86.0100 Personal history of colon polyps, unspecified; I48.0 Paroxysmal atrial fibrillation; E78.5 Hyperlipidemia, unspecified; E03.9 Hypothyroidism, unspecified; I11.0 Hypertensive heart disease with heart failure; I50.9 Heart failure, unspecified; Z79.890 Hormone replacement therapy; Z79.899 Other long term (current) drug therapy
CPT/HCPCS: 00813; 36415; 85610; 87077; J1610; J2003; J2704; J7121

== ENCOUNTER 2025-05-12 15:27 | Inpatient (IN) | payer MEDICARE, BC ==
[~2025-05-12] VITALS: Ht 180.3 cm; Wt 131.8 kg
--- OUTSIDE RECORDS SUMMARY | ~2025-05-12 | XMS | Continuity of Care Document ---
Demographics + + + | Address | [address] [address] | | | [place] [address] | + + + | Preferred Language | Unknown | + + + | Marital Status | Never | + + + | Buddhism Affiliation | Unknown | + + + | Race | White | + + + | Ethnic Group | Not or | + + + Author + + + | Author | [facility] | + + + | Organization | [facility] | + + + | Address | [address] | | | [place] [address] | + + + | Phone | | + + + Care Team Providers + + + + | Care Rags Laborer Name | Role | Phone | + + + + Unavailable | Unavailable | + + + + Unavailable | Unavailable | + + + + Allergies No information. Encounters No information. Functional Status No information. Immunizations + + + + | date | description | facility | + + + + | (no date) | Influenza, Seasonal, | [facility] | | | Injectable, Preservative | [facility] | | | Free | | + + + + | (no date) | No vaccine administered | [facility] | | | | [facility] | + + + + Medications + + + + | date | description | facility | + + + + | (no date) | 8 HR acetaminophen 650 MG | [facility] | | | Extended Release Oral | [facility] | | | Tablet | | + + + + | (no date) | ACETAMINOPHEN | [facility] | | | | [facility] | + + + + | (no date) | ASPIRIN | [facility] | | | | [facility] | + + + + | (no date) | aspirin 81 MG Delayed | [facility] | | | Release Oral Tablet | [facility] | | | [Aspir-Low] | | + + + + | (no date) | DAPAGLIFLOZIN PROPANEDIOL | [facility] | | | | [facility] | + + + + | (no date) | dapagliflozin 10 MG Oral | [facility] | | | Tablet [Farxiga] | [facility] | + + + + | (no date) | ALLOPURINOL | [facility] | | | | [facility] | + + + + | (no date) | allopurinol 300 MG Oral | [facility] | | | Tablet | [facility] | + + + + | (no date) | TORSEMIDE | [facility] | | | | [facility] | + + + + | (no date) | torsemide 10 MG Oral | [facility] | | | Tablet | [facility] | + + + + | (no date) | TORSEMIDE | [facility] | | | | [facility] | + + + + | (no date) | torsemide 20 MG Oral | [facility] | | | Tablet | [facility] | + + + + | 2025-03-05 00:00 | DIMETHICONE | [facility] | | | | [facility] | + + + + | 2025-03-05 00:00 | dimethicone 0.01 MG/MG | [facility] | | | Topical Ointment | [facility] | + + + + | (no date) | Magnesium Oxide | [facility] | | | | [facility] | + + + + | (no date) | magnesium oxide 400 MG | [facility] | | | Oral Tablet | [facility] | + + + + | (no date) | CARVEDILOL | [facility] | | | | [facility] | + + + + | (no date) | carvedilol 25 MG Oral | [facility] | | | Tablet | [facility] | + + + + | (no date) | SPIRONOLACTONE | [facility] | | | | [facility] | + + + + | (no date) | spironolactone 50 MG Oral | [facility] | | | Tablet [Aldactone] | [facility] | + + + + | (no date) | CELECOXIB | [facility] | | | | [facility] | + + + + | (no date) | celecoxib 200 MG Oral | [facility] | | | Capsule | [facility] | + + + + | (no date) | TORSEMIDE | [facility] | | | | [facility] | + + + + | (no date) | torsemide 20 MG Oral | [facility] | | | Tablet [Demadex] | [facility] | + + + + | (no date) | ATORVASTATIN CALCIUM | [facility] | | | | [facility] | + + + + | (no date) | atorvastatin 80 MG Oral | [facility] | | | Tablet | [facility] | + + + + | 2025-03-05 00:00 | PANTOPRAZOLE SODIUM | [facility] | | | | [facility] | + + + + | 2025-03-05 00:00 | pantoprazole 40 MG Delayed | [facility] | | | Release Oral Tablet | [facility] | | | [Protonix] | | + + + + | (no date) | CYANOCOBALAMIN (VITAMIN | [facility] | | | B-12) | [facility] | + + + + | (no date) | vitamin B12 1 MG Oral | [facility] | | | Tablet | [facility] | + + + + | (no date) | FERROUS SULFATE | [facility] | | | | [facility] | + + + + | (no date) | ferrous sulfate 325 MG | [facility] | | | Oral Tablet | [facility] | + + + + | (no date) | GABAPENTIN | [facility] | | | | [facility] | + + + + | (no date) | gabapentin 100 MG Oral | [facility] | | | Capsule | [facility] | + + + + | (no date) | Ofloxacin | [facility] | | | | [facility] | + + + + | (no date) | ofloxacin 3 MG/ML | [facility] | | | Ophthalmic Solution | [facility] | + + + + | (no date) | SPIRONOLACTONE | [facility] | | | | [facility] | + + + + | (no date) | spironolactone 25 MG Oral | [facility] | | | Tablet | [facility] | + + + + | (no date) | TERBINAFINE HCL | [facility] | | | | [facility] | + + + + | (no date) | terbinafine 250 MG Oral | [facility] | | | Tablet | [facility] | + + + + | (no date) | 24 HR isosorbide | [facility] | | | mononitrate 60 MG Extended | [facility] | | | Release Oral Tab | | + + + + | (no date) | ISOSORBIDE MONONITRATE | [facility] | | | | [facility] | + + + + | (no date) | CHOLECALCIFEROL (VITAMIN | [facility] | | | D3) | [facility] | + + + + | (no date) | cholecalciferol 0.05 MG | [facility] | | | Oral Capsule | [facility] | + + + + | (no date) | WARFARIN SODIUM | [facility] | | | | [facility] | + + + + | (no date) | warfarin sodium 10 MG Oral | [facility] | | | Tablet | [facility] | + + + + | (no date) | WARFARIN SODIUM | [facility] | | | | [facility] | + + + + | (no date) | warfarin sodium 5 MG Oral | [facility] | | | Tablet | [facility] | + + + + | (no date) | DICLOFENAC SODIUM | [facility] | | | | [facility] | + + + + | (no ) | diclofenac sodium 0.01 | [facility] | | | MG/MG Topical Gel | [facility] | | | [Voltaren] | | + + + + | (no ) | COLCHICINE | [facility] | | | | [facility] | + + + + | (no ) | colchicine 0.6 MG Oral | [facility] | | | Tablet [Colcrys] | [facility] | + + + + | (no ) | HYDRALAZINE HCL | [facility] | | | | [facility] | + + + + | (no date) | hydralazine hydrochloride | [facility] | | | 50 MG Oral Tablet | [facility] | + + + + | (no date) | LEVOTHYROXINE SODIUM | [facility] | | | | [facility] | + + + + | (no date) | levothyroxine sodium 0.05 | [facility] | | | MG Oral Tablet | [facility] | + + + + Problems + + + + | date | description | facility | + + + + | 2025-03-05 00:00 | Skin breakdown | [facility] | | | | [facility] | + + + + | 2025-03-05 00:00 | Melena | [facility] | | | | [facility] | + + + + | 2025-03-05 00:00 | Breakdown of skin tissue | [facility] | | | | [facility] | + + + + Procedures No information. Results/Labs +--------+--------+ +---------+--------+---------+ | test | date | facility | value | unit | notes | +--------+--------+ +---------+--------+---------+ + + | Result panel 1 | + + + + + +-----+ + + | Blood ABO | 2025-03-05 | | A | (missing) | (missing) | | group typing | 03:10 | [facility] | | | | + + + +-----+ + + + + | Result panel 2 | + + + + + + + + + | Rh blood | 2025-03-05 | | POSITIVE | (missing) | (missing) | | group typing | 03:10 | [facility] | | | | + + + + + + + + + | Result panel 3 | + + + + + + + + + | Serum or | 2025-03-05 | | NEGATIVE | (missing) | (missing) | | plasma | 03:10 | [facility] | | | | | indirect | | - [facility] | | | | | antiglobulin | | [facility] | | | | | test using | | Hospital | | | | | poly | | | | | | | specific | | | | | | | reagent | | | | | | + + + + + + + + + | Result panel 4 | + + + + + + + + + | Transf Band | 2025-03-05 | | BLOOD IN | (missing) | (missing) | | Num Patient | 03:10 | [facility] | | | | + + + + + + + + + | Result panel 5 | + + + + + +-----+ + + | ABO Group | 2025-03-05 | | A | (missing) | (missing) | | Bld | 03:10:07 | [facility] | | | | + + + +-----+ + + + + | Result panel 6 | + + + + + + + + + | Rh Bld | 2025-03-05 | | POSITIVE | (missing) | (missing) | | | 03:10:07 | [facility] | | | | + + + + + + + + + | Result panel 7 | + + + + + + + + + | IAT Poly-Sp | 2025-03-05 | | NEGATIVE | (missing) | (missing) | | Reag SerPl | 03:10:07 | [facility] | | | | | Ql | [facility] | | | | + + + + + + + + + | Result panel 8 | + + + + + + + + + | Transf Band | 2025-03-05 | | BLOOD IN | (missing) | (missing) | | Num Patient | 03:10:07 | [facility] LAB [facility] | | | | + + + + + + + + + | Result panel 9 | + + + + + +--------+ + + | Blood | 2025-03-05 | | 8.61 | (missing) | (missing) | | leukocytes | 03:13 | [facility] | | | | | automated | [facility] - [facility] | | [facility] | count | | [facility] | | | | | (number/volu | | Hospital | | | | | me) | | | | | | + + + +--------+ + + + + | Result panel 10 | + + + + + +--------+ + + | Automated | 2025-03-05 | | 20.8 | (missing) | (missing) | | blood | 03:13 | [facility] | | | | | lymphocyte | | - [facility] | | [facility] | | count as | | [facility] | | | | | percentage | | Hospital | | | | | ot total | | | | | | | leukocytes | | | | | | + + + +--------+ + + + + | Result panel 11 | + + + + + +-------+ + + | Automated | 2025-03-05 | | 6.6 | (missing) | (missing) | | blood | 03:13 | [facility] | | | | | monocyte | | - [facility] | | [facility] | count as | | [facility] | | | | | percentage | | Hospital | | | | | of total | | | | | | | leukocytes | | | | | | + + + +-------+ + + + + | Result panel 12 | + + + + + +-------+ + + | Automated | 2025-03-05 | | 1.4 | (missing) | (missing) | | blood | 03:13 | [facility] | | | | | eosinophil | | - [facility] | | [facility] | count as | | [facility] | | | | | percentage | | Hospital | | | | | of total | | | | | | | leukocytes | | | | | | + + + +-------+ + + + + | Result panel 13 | + + + + + +-------+ + + | Automated | 2025-03-05 | | 0.3 | (missing) | (missing) | | blood | 03:13 | [facility] | | | | | basophil | | - [facility] | | [facility] | | count as | | [facility] | | | | | percentage | | Hospital | | | | | of total | | | | | | | leukocytes | | | | | | + + + +-------+ + + + + | Result panel 14 | + + + + + +--------+ + + | Prothrombin | 2025-03-05 | | 32.6 | (missing) | (missing) | | time (PT) | 03:13 | [facility] | | | | | in platelet | | - [facility] | | | | | poor plasma | | [facility] | | | | | by | | Hospital | | | | | coagulation | | | | | | | assay | | | | | | + + + +--------+ + + + + | Result panel 15 | + + + + + +--------+ + + | INR in | 2025-03-05 | | 3.41 | (missing) | (missing) | | Platelet | 03:13 | [facility] | | | | | poor plasma | [facility] - [facility] | | | | | by | | [facility] | | | | | Coagulation | | Hospital | | | | | assay | | | | | | + + + +--------+ + + + + | Result panel 16 | + + + + + +--------+ + + | Activated | 2025-03-05 | | 44.1 | (missing) | (missing) | | partial | 03:13 | [facility] | | | | | thromboplast | | - [facility] | | | | | in time | | [facility] | | | | | (aPTT) in | | Hospital | | | | | platelet | | | | | | | poor plasma | | | | | | | by | | | | | | | coagulation | | | | | | | assay | | | | | | + + + +--------+ + + + + | Result panel 17 | + + + + + +-------+ + + | Serum or | 2025-03-05 | | 134 | (missing) | (missing) | | plasma | 03:13 | [facility] | | | | | glucose | | - [facility] | | | | | measurement | | [facility] | | | | | (mass/volume | | Hospital | | | | | ) | | | | | | + + + +-------+ + + + + | Result panel 18 | + + + + + +------+ + + | Serum or | 2025-03-05 | | 60 | (missing) | (missing) | | plasma urea | 03:13 | [facility] | | | | | nitrogen | | - [facility] | | | | | measurement | | [facility] | | | | | (mass/volume | | Hospital | | | | | ) | | | | | | + + + +------+ + + + + | Result panel 19 | + + + + + +--------+ + + | Serum or | 2025-03-05 | | 2.10 | (missing) | (missing) | | plasma | 03:13 | [facility] | | | | | creatinine | | - [facility] | | | | | measurement | | [facility] | | | | | (mass/volume | | Hospital | | | | | ) | | | | | | + + + +--------+ + + + + | Result panel 20 | + + + + + +--------+ + + | Blood | 2025-03-05 | | 4.33 | (missing) | (missing) | | erythrocytes | 03:13 | [facility] | | | | | automated | | - [facility] | | | | | count | | [facility] | | | | | (number/volu | | Hospital | | | | | me) | | | | | | + + + +--------+ + + + + | Result panel 21 | + + + + + +------+ + + | Glomerular | 2025-03-05 | | 35 | (missing) | (missing) | | filtration | 03:13 | [facility] | | | | | rate/1.73 sq | | - [facility] | | | | | M.predicted | | [facility] | | | | | [Volume | | Hospital | | | | | Rate/Area] | | | | | | | inSerum, | | | | | | | Plasma or | | | | | | | Blood by | | | | | | | Creatinine-b | | | | | | | ased formula | | | | | | | (CKD-EPI | | | | | | | 2020) | | | | | | + + + +------+ + + + + | Result panel 22 | + + + + + +---------+ + + | Serum or | 2025-03-05 | | 28.57 | (missing) | (missing) | | plasma urea | 03:13 | [facility] | | | | | nitrogen/cre | | - [facility] | | | | | atinine mass | | [facility] | | | | | ratio | | Hospital | | | | + + + +---------+ + + + + | Result panel 23 | + + + + + +-------+ + + | Serum or | 2025-03-05 | | 142 | (missing) | (missing) | | plasma | 03:13 | [facility] | | | | | sodium | | - [facility] | | | | | measurement | | [facility] | | | | | (moles/volum | | Hospital | | | | | e) | | | | | | + + + +-------+ + + + + | Result panel 24 | + + + + + +-------+ + + | Serum or | 2025-03-05 | | 3.4 | (missing) | (missing) | | plasma | 03:13 | [facility] | | | | | potassium | | -[facility] | | | | | measurement | | [facility] | | | | | (moles/volum | | Hospital | | | | | e) | | | | | | + + + +-------+ + + + + | Result panel 25 | + + + + + +-------+ + + | Serum or | 2025-03-05 | | 102 | (missing) | (missing) | | plasma | 03:13 | [facility] | | | | | chloride | | - [facility] | | | | | measurement | | [facility] | | | | | (moles/volum | | Hospital | | | | | e) | | | | | | + + + +-------+ + + + + | Result panel 26 | + + + + + +------+ + + | Serum or | 2025-03-05 | | 27 | (missing) | (missing) | | plasma | 03:13 | [facility] | | | | | carbon | | - [facility] | | | | | dioxide, | | [facility] | | | | | total | | Hospital | | | | | measurement | | | | | | | (moles/volum | | | | | | | e) | | | | | | + + + +------+ + + + + | Result panel 27 | + + + + + +--------+ + + | Serum or | 2025-03-05 | | 16.4 | (missing) | (missing) | | plasma anion | 03:13 | [facility] | | | | | gap 4 | [facility] | | [facility] | [facility] | | | | + + + +--------+ + + + + | Result panel 28 | + + + + + +-------+ + + | Serum or | 2025-03-05 | | 9.2 | (missing) | (missing) | | plasma | 03:13 | [facility] | | | | | calcium | | - [facility] | | | | | measurement | | [facility] | | | | | (mass/volume | | Hospital | | | | | ) | | | | | | + + + +-------+ + + + + | Result panel 29 | + + + + + +-------+ + + | Serum or | 2025-03-05 | | 7.2 | (missing) | (missing) | | plasma | 03:13 | [facility] | | | | | protein | | - [facility] | | | | | measurement | | [facility] | | | | | (mass/volume | | Hospital | | | | | ) | | | | | | + + + +-------+ + + + + | Result panel 30 | + + + + + +-------+ + + | Serum or | 2025-03-05 | | 4.0 | (missing) | (missing) | | plasma | 03:13 | [facility] | | | | | albumin | | - [facility] | | | | | measurement | | [facility] | | | | | (mass/volume | | Hospital | | | | | ) | | | | | | + + + +-------+ + + + + | Result panel 31 | + + + + + +--------+ + + | Blood | 2025-03-05 | | 14.5 | (missing) | (missing) | | hemoglobin | 03:13 | [facility] | | | | | measurement | | - [facility] | | | | | (mass/volume | | [facility] | | | | ) | | [facility] | | | | + + + +--------+ + + + + | Result panel 32 | + + + + + +-------+ + + | Serum | 2025-03-05 | | 3.2 | (missing) | (missing) | | globulin | 03:13 | [facility] | | | | | measurement | | - [facility] | | | | | (mass/volume | | [facility] | | | | ) | | Hospital | | | | + + + +-------+ + + + + | Result panel 33 | + + + + + +--------+ + + | Serum or | 2025-03-05 | | 1.25 | (missing) | (missing) | | plasma | 03:13 | [facility] | | | | | albumin/glob | | - [facility] | | | | | ulin mass | | [facility] | | | | | ratio | | Hospital | | | | + + + +--------+ + + + + | Result panel 34 | + + + + + +-------+ + + | Serum or | 2025-03-05 | | 0.5 | (missing) | (missing) | | plasma total | 03:13 | [facility] | | | | | bilirubin | | - [facility] | | | | | measurement | | [facility] | | | | | (mass/volume | | Hospital | | | | | ) | | | | | | + + + +-------+ + + + + | Result panel 35 | + + + + + +------+ + + | Serum or | 2025-03-05 | | 20 | (missing) | (missing) | | plasma | 03:13 | [facility] | | | | | aspartate | | - [facility] | | | | | aminotransfe | | [facility] | | | | | rase | | Hospital | | | | | measurement | | | | | | | (enzymatic | | | | | | | activity/vol | | | | | | | ume) | | | | | | + + + +------+ + + + + | Result panel 36 | + + + + + +------+ + + | Serum or | 2025-03-05 | | 31 | (missing) | (missing) | | plasma | 03:13 | [facility] | | | | | alanine | | - [facility] | | | | | aminotransfe | | [facility] | | | | | rase | | Hospital | | | | | measurement | | | | | | | (enzymatic | | | | | | | activity/vol | | | | | | | ume) | | | | | | + + + +------+ + + + + | Result panel 37 | + + + + + +------+ + + | Serum or | 2025-03-05 | | 86 | (missing) | (missing) | | plasma | 03:13 | [facility] | | | | | alkaline | | - [facility] | | | | | phosphatase | | [facility] | | | | | measurement | | Hospital | | | | | (enzymatic | | | | | | | activity/vol | | | | | | | ume) | | | | | | + + + +------+ + + + + | Result panel 38 | + + + + + +--------+ + + | Automated | 2025-03-05 | | 44.4 | (missing) | (missing) | | blood | 03:13 | [facility] | | | | | hematocrit | [facility] | | [facility] | | [facility] | | | | + + + +--------+ + + + + | Result panel 39 | + + + + + +---------+ + + | Automated | 2025-03-05 | | 102.5 | (missing) | (missing) | | erythrocyte | 03:13 | [facility] | | | | | mean | | - [facility] | | | | | corpuscular | | [facility] | | | | | volume | | Hospital | | | | + + + +---------+ + + + + | Result panel 40 | + + + + + +--------+ + + | Automated | 2025-03-05 | | 33.5 | (missing) | (missing) | | erythrocyte | 03:13 | [facility] | | | | | mean | | - [facility] | | | | | corpuscular | | [facility] | | | | | hemoglobin | | Hospital | | | | | (mass per | | | | | | | erythrocyte) | | | | | | | | | | | | | + + + +--------+ + + + + | Result panel 41 | + + + + + +--------+ + + | Automated | 2025-03-05 | | 32.7 | (missing) | (missing) | | erythrocyte | 03:13 | [facility] | | | | | mean | | - [facility] | | | | | corpuscular | | [facility] | | | | | hemoglobin | | Hospital | | | | | concentratio | | | | | | | n | | | | | | | measurement | | | | | | | (mass/volume | | | | | | | ) | | | | | | + + + +--------+ + + + + | Result panel 42 | + + + + + +-------+ + + | Automated | 2025-03-05 | | 218 | (missing) | (missing) | | blood | 03:13 | [facility] | | | | | platelet | | [facility] | | [facility] | count | | [facility] | | | | | (count/volum | | Hospital | | | | | e) | | | | | | + + + +-------+ + + + + | Result panel 43 | + + + + + +--------+ + + | Automated | 2025-03-05 | | 70.3 | (missing) | (missing) | | blood | 03:13 | [facility] | | | | | neutrophil | | - [facility] | | | | | count as | | [facility] | | | | | percentage | | Hospital | | | | | of total | | | | | | | leukocytes | | | | | | + + + +--------+ + + + + | Result panel 44 | + + + + + +--------+ + + | WBC # Bld | 2025-03-05 | | 8.61 | (missing) | (missing) | | Auto | 03:13:07 | [facility] | | | [facility] | | [facility] | | | | + + + +--------+ + + + + | Result panel 45 | + + + + + +--------+ + + | RBC # Bld | 2025-03-05 | | 4.33 | (missing) | (missing) | | Auto | 03:13:07 | [facility] | | [facility] | | | | + + + +--------+ + + + + | Result panel 46 | + + + + + +--------+ + + | Hgb | 2025-03-05 | | 14.5 | (missing) | (missing) | | Bld-mCnc | 03:13:07 | [facility] | | | | [facility] | | | | + + + +--------+ + + + + | Result panel 47 | + + + + + +--------+ + + | Hct VFr.DF | 2025-03-05 | | 44.4 | (missing) | (missing) | | Bld Auto | 03:13:07 | [facility] | [facility] | | | | + + + +--------+ + + + + | Result panel 48 | + + + + + +---------+ + + | RBC Auto | 2025-03-05 | | 102.5 | (missing) | (missing) | | | 03:13:07 | [facility] | [facility] | | | | + + + +---------+ + + + + | Result panel 49 | + + + + + +--------+ + + | [facility] RBC Qn | 2025-03-05 | | 33.5 | (missing) | (missing) | | Auto | 03:13:07 | [facility] | | | | + + + +--------+ + + + + | Result panel 50 | + + + + + +--------+ + + | MCHC RBC | 2025-03-05 | | 32.7 | (missing) | (missing) | | Auto-[facility] | 03:13:07 | [facility] | | | | + + + +--------+ + + + + | Result panel 51 | + + + + + +-------+ + + | Platelet # | 2025-03-05 | | 218 | (missing) | (missing) | | Bld Auto | 03:13:07 | [facility] | | | | + + + +-------+ + + + + | Result panel 52 | + + + + + +--------+ + + | Neutrophils | 2025-03-05 | | 70.3 | (missing) | (missing) | | NFr Bld | 03:13:07 | [facility] | | | | | [facility] | [facility] | | | | + + + +--------+ + + + + | Result panel 53 | + + + + + +--------+ + + | Lymphocytes | 2025-03-05 | | 20.8 | (missing) | (missing) | | NFr Bld | 03:13:07 | [facility] | | | | [facility] | | | | + + + +--------+ + + + + | Result panel 54 | + + + + + +-------+ + + | Monocytes | 2025-03-05 | | 6.6 | (missing) | (missing) | | NFr Bld Auto | 03:13:07 | [facility] | | | | + + + +-------+ + + + + | Result panel 55 | + + + + + +-------+ + + | Eosinophil | 2025-03-05 | | 1.4 | (missing) | (missing) | | NFr Bld Auto | 03:13:07 | [facility] | | | | + + + +-------+ + + + + | Result panel 56 | + + + + + +-------+ + + | Basophils | 2025-03-05 | | 0.3 | (missing) | (missing) | | NFr Bld Auto | 03:13:07 | [facility] | | | | + + + +-------+ + + + + | Result panel 57 | + + + + + +--------+ + + | Prothrombin | 2025-03-05 | | 32.6 | (missing) | (missing) | | time | 03:13:07 | [facility] | | | | + + + +--------+ + + + + | Result panel 58 | + + + + + +--------+ + + | INR PPP | 2025-03-05 | | 3.41 | (missing) | (missing) | | | 03:13:07 | [facility] | | | | + + + +--------+ + + + + | Result panel 59 | + + + + + +--------+ + + | aPTT PPP | 2025-03-05 | | 44.1 | (missing) | (missing) | | | 03:13:07 | [facility] | | | | + + + +--------+ + + + + | Result panel 60 | + + + + + +-------+---------+ + | Glucose | 2025-03-05 | | 134 | mg/dL | (missing) | | [place] | 03:13:07 | [facility] | | | | + + + +-------+---------+ + + + | Result panel 61 | + + + + + +------+---------+ + | BUN | 2025-03-05 | | 60 | mg/dL | (missing) | | [facility] | 03:13:07 | [facility] | | | | + + + +------+---------+ + + + | Result panel 62 | + + + + + +--------+---------+ + | Creat | 2025-03-05 | | 2.10 | mg/dL | (missing) | | [facility] | 03:13:07 | [facility] | | | | + + + +--------+---------+ + + + | Result panel 63 | + + + + + +------+ + + | eGFRcr | 2025-03-05 | | 35 | (missing) | (missing) | | SerPlBld | 03:13: | [facility] | | | | | CKD-EPI 2020 | [facility] | | | | + + + +------+ + + + + | Result panel 64 | + + + + + +---------+ + + | BUN/Creat | 2025-03-05 | | 28.57 | (missing) | (missing) | | SerPl | :: | [facility] | | | | + + + +---------+ + + + + | Result panel 65 | + + + + + +-------+ + + | Sodium | 2025-03-05 | | 142 | (missing) | (missing) | | [facility]-s[facility]nc | 03:13:07 | [facility] | | | | + + + +-------+ + + + + | Result panel 66 | + + + + + +-------+ + + | Potassium | 2025-03-05 | | 3.4 | (missing) | (missing) | | [facility]-s[facility]nc | 03:13:07 | [facility] | | | | + + + +-------+ + + + + | Result panel 67 | + + + + + +-------+ + + | Chloride | 2025-03-05 | | 102 | (missing) | (missing) | | Ser[facility]-s[facility]nc | 03:13:07 | [facility] | | | | + + + +-------+ + + + + | Result panel 68 | + + + + + +------+ + + | CO2 | 2025-03-05 | | 27 | (missing) | (missing) | | Ser[facility]-s[facility]nc | 03:13:07 | [facility] | | | | + + + +------+ + + + + | Result panel 69 | + + + + + +--------+ + + | Anion Gap | 2025-03-05 | | 16.4 | (missing) | (missing) | | SerPl | 03:13:07 | [facility] | | | | | Calculated.4 | [facility] | | | | + + + +--------+ + + + + | Result panel 70 | + + + + + +-------+---------+ + | Calcium | 2025-03-05 | | 9.2 | mg/dL | (missing) | | [facility]-m[facility] | 03:13:07 | [facility] | | | | + + + +-------+---------+ + + + | Result panel 71 | + + + + + +-------+ + + | Prot | 2025-03-05 | | 7.2 | (missing) | (missing) | | [facility]-m[facility] | 03:13:07 | [facility] | | | | + + + +-------+ + + + + | Result panel 72 | + + + + + +-------+ + + | Albumin | 2025-03-05 | | 4.0 | (missing) | (missing) | | [facility] | 03:13:07 | [facility] | | | | + + + +-------+ + + + + | Result panel 73 | + + + + + +-------+ + + | Globulin | 2025-03-05 | | 3.2 | (missing) | (missing) | | Ser-mCnc | 03:13:07 | [facility] | | | | + + + +-------+ + + + + | Result panel 74 | + + + + + +--------+ + + | | 2025-03-05 | | 1.25 | (missing) | (missing) | | Albumin/Glob | 03:13:07 | [facility] | | | | | [facility] | | | | + + + +--------+ + + + + | Result panel 75 | + + + + + +-------+---------+ + | Bilirub | 2025-03-05 | | 0.5 | mg/dL | (missing) | | [facility] | 03:13:07 | [facility] | | | | + + + +-------+---------+ + + + | Result panel 76 | + + + + + +------+ + + | AST | 2025-03-05 | | 20 | (missing) | (missing) | | [facility]-c[facility] | 03:13:07 | [facility] | | | | + + + +------+ + + + + | Result panel 77 | + + + + + +------+ + + | ALT | 2025-03-05 | | 31 | (missing) | (missing) | | [facility]-c[facility] | 03:13:07 | [facility] | | | | + + + +------+ + + + + | Result panel 78 | + + + + + +------+ + + | ALP | 2025-03-05 | | 86 | (missing) | (missing) | | [facility] | 03:13:07 | [facility] | [facility] | | | | + + + +------+ + + Social History + + + + | date | description | facility | + + + + | (no date) | Former smoker | [facility] | | | | [facility] | + + + + Vital Signs + + + +---------+ | date | measurement | value | units | + + + +---------+ | 2025-02-16 00:00 | BP_diastolic | 59 | mmHg | + + + +---------+ | 2025-02-16 00:00 | BP_systolic | 140 | mmHg | + + + +---------+ | 2025-02-16 00:00 | heart_rate | 48 | /min | + + + +---------+ | 2025-03-05 00:00 | BMI | 42.0 | kg/m2 | + + + +---------+ | 2025-03-05 00:00 | BP_diastolic | 76 | mmHg | + + + +---------+ | 2025-03-05 00:00 | BP_systolic | 125 | mmHg | + + + +---------+ | 2025-03-05 00:00 | heart_rate | 61 | /min | + + + +---------+ | 2025-03-05 00:00 | height_metric | 180.34 | cm | + + + +---------+ | 2025-03-05 00:00 | height_standard | 71 | in | + + + +---------+ | 2025-03-05 00:00 | o2_saturation | 99 | % | + + + +---------+ | 2025-03-05 00:00 | respiration_rate | 17 | /min | + + + +---------+ | 2025-03-05 00:00 | temperature_metric | 36.5 | C | | | | | | + + + +---------+ | 2025-03-05 00:00 | | 97.7 | F | | | temperature_standar | | | | | d | | | + + + +---------+ | 2025-03-05 00:00 | weight_metric | 136.5 | kg | + + + +---------+ | 2025-03-05 00:00 | weight_standard | 300.93 | lb | + + + +---------+"
--- OUTSIDE RECORDS SUMMARY | ~2025-05-12 | XMS | Continuity of Care Document ---
Demographics + + + | Address | [address] [address] | | | [place] [address] | + + + | Preferred Language | Unknown | + + + | Marital Status | Never | + + + | Latter-Day Affiliation | Unknown | + + + | Race | White | + + + | Ethnic Group | Not or | + + + Author + + + | Author | [facility] | + + + | Organization | [facility] | + + + | Address | [address] | | | [place] [address] | + + + | Phone | | + + + Care Team Providers + + + + | Care Grease Maker Name | Role | Phone | + + + + Unavailable | Unavailable | + + + + Unavailable | Unavailable | + + + + Allergies No information. Encounters No information. Functional Status No information. Immunizations + + + + | date | description | facility | + + + + | (no date) | Influenza, Seasonal, | [facility] | | | Injectable, Preservative | [facility] | | | Free | | + + + + | (no date) | No vaccine administered | [facility] | | | | [facility] | + + + + Medications + + + + | date | description | facility | + + + + | (no date) | 8 HR acetaminophen 650 MG | [facility] | | | Extended Release Oral | [facility] | | | Tablet | | + + + + | (no date) | ACETAMINOPHEN | [facility] | | | [facility] | + + + + | (no date) | ASPIRIN | [facility] | | | [facility] | + + + + | (no date) | aspirin 81 MG Delayed | [facility] | | | Release Oral Tablet | [facility] | | | [Aspir-Low] | | + + + + | (no date) | DAPAGLIFLOZIN PROPANEDIOL | [facility] | | | | [facility] | + + + + | (no date) | dapagliflozin 10 MG Oral | [facility] | | | Tablet [Farxiga] | [facility] | + + + + | (no date) | ALLOPURINOL | [facility] | | | [facility] | + + + + | (no date) | allopurinol 300 MG Oral | [facility] | | | Tablet | [facility] | + + + + | (no date) | TORSEMIDE | [facility] | | | [facility] | + + + + | (no date) | torsemide 10 MG Oral | [facility] | | | Tablet | [facility] | + + + + | (no date) | TORSEMIDE | [facility] | | | [facility] | + + + + | (no date) | torsemide 20 MG Oral | [facility] | | | Tablet | [facility] | + + + + | 2025-03-05 00:00 | DIMETHICONE | [facility] | | | | [facility] | + + + + | 2025-03-05 00:00 | dimethicone 0.01 MG/MG | [facility] | | | Topical Ointment | [facility] | + + + + | (no date) | Magnesium Oxide | [facility] | | | [facility] | + + + + | (no date) | magnesium oxide 400 MG | [facility] | | | Oral Tablet | [facility] | + + + + | (no date) | CARVEDILOL | [facility] | | | | [facility] | + + + + | (no date) | carvedilol 25 MG Oral | [facility] | | | Tablet | [facility] | + + + + | (no date) | SPIRONOLACTONE | [facility] | | | | [facility] | + + + + | (no date) | spironolactone 50 MG Oral | [facility] | | | Tablet [Aldactone] | [facility] | + + + + | (no date) | CELECOXIB | [facility] | | | [facility] | + + + + | (no date) | celecoxib 200 MG Oral | [facility] | | | Capsule | [facility] | + + + + | (no date) | TORSEMIDE | [facility] | | | [facility] | + + + + | (no date) | torsemide 20 MG Oral | [facility] | | | Tablet [Demadex] | [facility] | + + + + | (no date) | ATORVASTATIN CALCIUM | [facility] | | | | [facility] | + + + + | (no date) | atorvastatin 80 MG Oral | [facility] - | | | Tablet | [facility] | + + + + | 2025-03-05 00:00 | PANTOPRAZOLE SODIUM | [facility] | | | | [facility] | + + + + | 2025-03-05 00:00 | pantoprazole 40 MG Delayed | [facility] - | | | Release Oral Tablet | [facility] | | | [Protonix] | | + + + + | (no date) | CYANOCOBALAMIN (VITAMIN | [facility] | | | B-12) | [facility] | + + + + | (no date) | vitamin B12 1 MG Oral | [facility] | | | Tablet | [facility] | + + + + | (no date) | FERROUS SULFATE | [facility] | | | [facility] | + + + + | (no date) | ferrous sulfate 325 MG | [facility] | | | Oral Tablet | [facility] | + + + + | (no date) | GABAPENTIN | [facility] | | | [facility] | + + + + | (no date) | gabapentin 100 MG Oral | [facility] | | | Capsule | [facility] | + + + + | (no date) | Ofloxacin | [facility] | | | | [facility] | + + + + | (no date) | ofloxacin 3 MG/ML | [facility] | | | Ophthalmic Solution | [facility] | + + + + | (no date) | SPIRONOLACTONE | [facility] | | | | [facility] | + + + + | (no date) | spironolactone 25 MG Oral | [facility] | | | Tablet | [facility] | + + + + | (no date) | TERBINAFINE HCL | [facility] | | | [facility] | + + + + | (no date) | terbinafine 250 MG Oral | [facility] | | | Tablet | [facility] | + + + + | (no date) | 24 HR isosorbide | [facility] | | | mononitrate 60 MG Extended | [facility] | | | Release Oral Tab | | + + + + | (no date) | ISOSORBIDE MONONITRATE | [facility] | | | [facility] | + + + + | (no date) | CHOLECALCIFEROL (VITAMIN | [facility] | | | D3) | [facility] | + + + + | (no date) | cholecalciferol 0.05 MG | [facility] | | | Oral Capsule | [facility] | + + + + | (no date) | WARFARIN SODIUM | [facility] | | | | [facility] | + + + + | (no date) | warfarin sodium 10 MG Oral | [facility] | | | Tablet | [facility] | + + + + | (no date) | WARFARIN SODIUM | [facility] | | | | [facility] | + + + + | (no date) | warfarin sodium 5 MG Oral | [facility] | | | Tablet | [facility] | + + + + | (no date) | DICLOFENAC SODIUM | [facility] | | | | [facility] | + + + + | (no ) | diclofenac sodium 0.01 | [facility] | | | MG/MG Topical Gel | [facility] | | | [Voltaren] | | + + + + | (no ) | COLCHICINE | [facility] | | | | [facility] | + + + + | (no ) | colchicine 0.6 MG Oral | [facility] | | | Tablet [Colcrys] | [facility] | + + + + | (no ) | HYDRALAZINE HCL | [facility] | | | | [facility] | + + + + | (no date) | hydralazine hydrochloride | [facility] | | | 50 MG Oral Tablet | [facility] | + + + + | (no date) | LEVOTHYROXINE SODIUM | [facility] | | | | [facility] | + + + + | (no date) | levothyroxine sodium 0.05 | [facility] | | | MG Oral Tablet | [facility] | + + + + Problems + + + + | date | description | facility | + + + + | 2025-03-05 00:00 | Skin breakdown | [facility] | | | | [facility] | + + + + | 2025-03-05 00:00 | Melena | [facility] | | | | [facility] | + + + + | 2025-03-05 00:00 | Breakdown of skin tissue | [facility] | | | | [facility] | + + + + Procedures No [...] [id number] | (missing) | (missing) | | [facility] | 03:13:07 | [facility] | [facility] | | | | + + + +------+ + + Social History + + + + | date | description | facility | + + + + | (no date) | Former smoker | [facility] | | | | [facility] | [...]
[~2025-05-12 15:27] MED LIST changes: -IBLOOD GLUCOSE TEST STRIP 1 EA TEST VI PRN; -LACTATED RINGER'S 1,000 ML IV SCH; -LIDOCAINE HCL 1% 5 ML SDV INJ ONE
[2025-05-12 15:58] LABS: BASOPHILS 0.2 % (0.2-1.2); EOSINOPHILS 2.0 % (0.8-7.0); LYMPHOCYTES 13.2 % (21.8-53.1); MCH 33.3 PG (25.7-32.2); MCHC 32.0 g/dL (32.3-36.5); MCV 104.0 fL (79.0-92.2); MONOCYTES 3.6 % (5.3-12.2); NEUTROPHILS 80.8 % (34.0-67.9); RBC 4.72 M/uL (4.63-6.08)
[2025-05-12] MEDS ORDERED: SODIUM CHLORIDE 0.9% 1,000 ML IV PRN (16:00)
[2025-05-12 16:14] LABS: ALT (SGPT) 26.0 U/L (14-59); AST (SGOT) 24.0 U/L (15-37); GLOMERULAR FILTRATION RATE,EST 37.0 mL/min (>60); PROTEIN, TOTAL 7.0 g/dL (6.4-8.2); UREA NITROGEN 25.0 mg/dL (7-18)
[2025-05-12 16:15] LABS: INR 1.81 (0.80-1.30); PROTIME 20.3 Sec (11.2-14.2)
[2025-05-12 16:33] LABS: ABO A; ANTIBODY SCREEN NEGATIVE; RH POSITIVE
[2025-05-12] MEDS ORDERED: PHYTONADIONE 2.5 MG/2.5 ML SYR PO ONE (17:45)
[2025-05-12] MEDS ORDERED: PHYTONADIONE 2.5 MG/2.5 ML SYR ONE (18:14)
[2025-05-12 18:37] LABS: BASOPHILS 0.1 % (0.2-1.2); EOSINOPHILS 0.1 % (0.8-7.0); LYMPHOCYTES 2.3 % (21.8-53.1); MCH 33.9 PG (25.7-32.2); MCHC 32.5 g/dL (32.3-36.5); MCV 104.1 fL (79.0-92.2); MONOCYTES 4.3 % (5.3-12.2); NEUTROPHILS 92.9 % (34.0-67.9); RBC 4.40 M/uL (4.63-6.08)
[2025-05-12] MEDS ORDERED: PHYTONADIONE 5 MG in DEXTROSE 5% 50 ML IV ONE (18:45)
[2025-05-12] MEDS ORDERED: PHYTONADIONE 1 MG/0.5 ML AMP ONE (19:27)
[2025-05-12] MEDS ORDERED: PHYTONADIONE 1 MG in DEXTROSE 5% 50 ML IV ONE ×2 (19:30)
[2025-05-12] MEDS ORDERED: D5W 1/2 NS + 20 KCL 1,000 ML IV SCH ×2 (19:45)
[2025-05-12 20:11] VITALS: BP 138/69
--- NOTE | 2025-05-12 20:15 | NUR ---
PATIENT BROUGHT TO MS RM 111 VIA STRETCHER. REPORT RECEIVED FROM XIOMARA RAMIREZ. PATIENT ORIENTED TO ROOM, ASSESSMENT COMPLETE. PATIENT REPORTED FEELING SOME BLOOD FROM HIS RECTUM, BRIEF CHANGED. WEIGHED. EQUAL TO 346 ML BRIGHT RED BLOOD WITH FEW CLOTS. RESPIRATIONS EVEN AND UNLABORED, ON 1L NC. NO FURTHER NEEDS, CALL LIGHT IN REACH
[2025-05-12] MEDS ORDERED: PANTOPRAZOLE SODIUM 40 MG/10 ML VIAL IV SCH ×2 (21:00)
--- NOTE | 2025-05-12 21:07 | NUR ---
MD CALLED, REPORTED PATIENT ASSESSMENT OF BLEEDING TO MD, WELL VS. PER MD, OKAY TO GIVE SCHEDULED COREG, HOLD HYDRALAZINE D/T VS. NEW ORDERS RECEIVED FOR LAB.
[2025-05-12 21:17] VITALS: BP 123/58
--- NOTE | 2025-05-12 21:20 | NUR ---
SCHEDULED MEDICATIONS GIVEN PER ORDER. PATIENT BRIEF CHANGED, BRIGHT RED BLOOD NOTED OUTPUT FROM RECTUM, WEIGHED AT 116ML. NO FURTHER NEEDS, CALL LIGHT IN REACH
[2025-05-12 21:23] LABS: BASOPHILS 0.1 % (0.2-1.2); EOSINOPHILS 0.1 % (0.8-7.0); LYMPHOCYTES 2.3 % (21.8-53.1); MCH 33.7 PG (25.7-32.2); MCHC 32.6 g/dL (32.3-36.5); MCV 103.5 fL (79.0-92.2); MONOCYTES 4.6 % (5.3-12.2); NEUTROPHILS 92.5 % (34.0-67.9); RBC 4.03 M/uL (4.63-6.08)
--- NOTE | 2025-05-12 21:51 | NUR ---
CALLED [facility] UN[facility], UPDATED REGARDING CBC RESULTS. PROVIDER WOULD LIKE NEW PT/INR ORDERED.
--- NOTE | 2025-05-12 22:40 | NUR ---
ATTEMPTED TO PLACE 2ND IV. UNSUCCESSFUL ATTEMPTS X2 BY THIS RN AND X2 BY AGA RN. PATIENT TOLERATED WELL, EXCHANGE CLERK CALLED TO DRAW.
[2025-05-12 22:51] LABS: INR 1.74 (0.80-1.30); PROTIME 19.3 Sec (11.2-14.2)
--- NOTE | 2025-05-12 22:55 | NUR ---
CPOX PLACED ON PATIENT. PT RESTING WITH EYES CLOSED, RESPIRATIONS EVEN AND UNLABORED, IVF INFUSING WITHOUT DIFFICUTLY. PILLOW PLACED UNDER LEFT ARM WITH IV. NO NEEDS IDENTIFIED, CALL LIGHT IN REACH.
--- NOTE | 2025-05-12 23:21 | NUR ---
CALLED WITH LAB RESULTS PER REQUEST. NO NEW ORDERS AT THIS TIME.
--- NOTE | 2025-05-12 23:57 | NUR ---
ELICIA RN, PLACED IV. PATIENT TOLERATED WELL. RESPIRATIONS EVEN AND UNLABORED. BRIEF AND CHUX PAD CHANGED UNDER PATIENT. 686 ML. PATIENT REPORTING 8/10 ABD PAIN, REQUESTING PAIN MEDICATION. DENIES OTHER NEEDS, CALL LIGHT IN REACH
[2025-05-13] VITALS (27 sets, daily range): BP systolic 90–150; BP diastolic 53–75
--- NOTE | 2025-05-13 00:18 | NUR ---
CALL PLACED TO PROVIDER. INFORMED OF 686ML OF BLOOD RECENTLY CHANGED FROM UNDER PATIENT, LARGE CLOTS, BRIGHT RED. INFORMED OF PATIENT COMPLAINT OF 8/10 ABD PAIN, AND REQUEST FOR PAIN MEDICATION. NO NEW ORDERS AT THIS TIME. PER PROVIDER, NO LABS UNTIL AM LABS, AND KEEP PATIENT NPO FOR NOW.
--- NOTE | 2025-05-13 01:26 | NUR ---
VS OBTAINED AND RECORDED. PATIENT RESING COMFORTABLY, RESPIRATIONS EVEN AND UNLABORED ON 2L NC FOR SLEEP. WOKE TO RN TAKING VS, DENIES ANY NEEDS. STATES HE IS DOING FINE. CALL LIGHT IN REACH
--- NOTE | 2025-05-13 01:43 | NUR ---
NOTIFIED BY PRIMARY RN, HR NOW TACHY PER CPOX, LOW 100'S TO ONE TEENS-LOWER GI BLEED DX. pt RESTING IN BED, NO DISTRESS NOTED AND APPEARS COMFORTABLE. BP WNL. DISCUSSED WITH YESENIA GUSMAN, NURSE INITIATED ORDERS FOR TELE PLACED BY THIS RN D/T TACHY HR.
--- NOTE | 2025-05-13 01:51 | NUR ---
TELE PLACED ON PATIENT. CONTINUES TO REST, RESPIRATIONS EVEN AND UNLABORED. 2L NC IN PLACE, CONT FLUIDS INFUSING WITHOUT DIFFICULTY, CPOX AT BEDSIDE. NO FURTHER NEEDS, CALL LIGHT IN REACH
--- NOTE | 2025-05-13 02:11 | NUR ---
IN ROOM TO ADJUST TELE LEADS, PATIENT CONTINUES TO REST. NO NEEDS, CALL LIGHT IN REACH.
--- NOTE | 2025-05-13 02:44 | NUR ---
ANSWERED PATIENT CALL LIGHT, SHAN CARE, NEW BREIEF PROVIDED. BREIF WEIGHED, PATIENT ABLE TO ASSIST IN TURNING. CPOX ON, IVF INFUSING WITHOUT DIFFICUTLY, TELE 9 ON. PATIENT DENIES FURTHER NEEDS AT THIS TIME. CALL LIGHT IN REACH.
--- NOTE | 2025-05-13 04:05 | NUR ---
MD CALLED TO GIVE UPDATE ON PATIENT. INFORMED OF PATIENT VS, BLEEDING, AND ASSESSMENT. MD OKAY TO KEEP TELE MONITOR ON PATIENT. NO NEW ORDERS AT THIS TIME.
--- NOTE | 2025-05-13 04:05 | NUR ---
ROUNDED ON PATIENT, PATIENT IS RESTING IN BED WITH EYES CLOSED, RESPIRATIONS EVEN AND UNLABORED, AUDIBLE SNORING, CPOX IN PLACE, IVF INFUSING WITHOUT DIFFICULTY, NC ON 2L. TELE [address], NO NEEDS IDENTIFITED AT THIS TIME. CALL LIGHT IN REACH.
--- NOTE | 2025-05-13 04:43 | NUR ---
ANSWERED CALL LIGHT, SHAN CARE, NEW BREIF, CHUX, AND GOWN REPLACED. OUTPUT WEIGHED. PATIENT ABLE TO ASSIST IN TURNING. RN STANLEY ASSISTED, PATIENT REQUESTED MOUTH SWAB, RN PROVIDED. NO OTHER NEEDS IDENTIFIED AT THIS TIME. CALL LIGHT IN REACH.
[2025-05-13 05:10] LABS: BASOPHILS 0.1 % (0.2-1.2); EOSINOPHILS 0 % (0.8-7.0); LYMPHOCYTES 2.1 % (21.8-53.1); MCH 33.6 PG (25.7-32.2); MCHC 32.5 g/dL (32.3-36.5); MCV 103.6 fL (79.0-92.2); MONOCYTES 3.2 % (5.3-12.2); NEUTROPHILS 94.2 % (34.0-67.9); RBC 3.36 M/uL (4.63-6.08)
[2025-05-13 05:21] LABS: INR 1.55 (0.80-1.30); PROTIME 17.6 Sec (11.2-14.2)
--- NOTE | 2025-05-13 05:30 | NUR ---
BLADDER SCANNED PATIENT DUE TO NO URINE OUTPUT. NO FLUID NOTED ON SCAN. NOTIFIED BY XIOMARA THAKUR.
--- NOTE | 2025-05-13 05:50 | NUR ---
TC TO MD. DISCUSSED VS AND BLOOD LOSS AMOUNT WELL PATIENT DESCRIPTION OF PAIN AND ASSESSMENT. NEW ORDERS RECEIVED.
--- NOTE | 2025-05-13 05:57 | NUR ---
IVF BOLUS STARTED PER ORDER.
[2025-05-13] MEDS ORDERED: GABAPENTIN 100 MG CAP PO SCH ×2 (06:00)
[2025-05-13] MEDS ORDERED: POTASSIUM CHLORIDE 10 MEQ TABCR PO SCH ×2 (06:00)
[2025-05-13] MEDS ORDERED: LACTATED RINGER'S 500 ML IV ONE ×2 (06:00)
--- NOTE | 2025-05-13 06:34 | NUR ---
IVF BOLUS FINISHED, SALINE LOCKED. PATIENT RESTING WITH EYES CLOSED, AUDIBLY SNORING, RESPIRATIONS EVEN AND UNLABORED, NO NEEDS IDENTIFIED AT THIS TIME, CALL LIGHT IN REACH.
[2025-05-13] MEDS ORDERED: FUROSEMIDE 20 MG TAB PO SCH ×2 (07:00)
[2025-05-13] MEDS ORDERED: LEVOTHYROXINE SODIUM 50 MCG TAB PO SCH ×2 (07:00)
--- NOTE | 2025-05-13 07:08 | NUR ---
MD AT BEDSIDE. EVALUATED PATIENT, UPDATED REGARDING PATIENT STATUS AND VS. NEW ORDERS RECEIVED.
--- NOTE | 2025-05-13 07:10 | NUR ---
RECEIVED REPORT FROM XIOMARA THAKUR. PATIENTS WHITEBPOARD UPDATED. SHAN CARE/ BRIEFS CHANGED. NO OTHER NEEDS AT THIS TIME. CALL LIGHT IN REACH, BED LOWERED.
--- NOTE | 2025-05-13 08:19 | NUR ---
PATIENT IS IN BED AT THIS TIME, HEDDLER TIER ASSISTED PATIENT WITH A BREIF CHANGE, PATIENT HAD A XL VERY BRIGHT BLOODY RED BM, VERY LARGE CLOTS, PATIENT GOT CLEANED UP AND A NEW BREIF. HEDDLER TIER DID NOT WEIGH THE BREIF, I DIDNT KNOW TILL AFTER I DISPOSED OF BREIF. RN NOTIFIED. CALL LIGHT WITH IN REACH AND NOTHING ELSE NEEDED AT THIS TIME.
[2025-05-13 09:13] LABS: BASOPHILS 0.1 % (0.2-1.2); EOSINOPHILS 0 % (0.8-7.0); LYMPHOCYTES 3.8 % (21.8-53.1); MCH 33.8 PG (25.7-32.2); MCHC 32.4 g/dL (32.3-36.5); MCV 104.1 fL (79.0-92.2); MONOCYTES 5.2 % (5.3-12.2); NEUTROPHILS 90.5 % (34.0-67.9); RBC 3.17 M/uL (4.63-6.08)
[2025-05-13 09:24] LABS: INR 1.44 (0.80-1.30); PROTIME 17.0 Sec (11.2-14.2)
[2025-05-13 09:31] LABS: ALT (SGPT) 17.0 U/L (14-59); AST (SGOT) 13.0 U/L (15-37); GLOMERULAR FILTRATION RATE,EST 26.0 mL/min (>60); PROTEIN, TOTAL 5.2 g/dL (6.4-8.2); UREA NITROGEN 31.0 mg/dL (7-18)
--- NOTE | 2025-05-13 09:50 | NUR ---
THIS RN CALLS DR. PRAJAPATI TO UPDATE ON PT CONTINUING TO BE PRODUCING BLOOD CLOTS VIA RECTUM WELL PT'S MOST RECENT LABS AND VITAL SIGNS. STATES THAT PT IS EXPECTED TO HAVE PROCEDURE LATER TODAY AND STATES TO GIVE 2 UNITS OF FFP. REPEAT BACK PERFORMED.
--- NOTE | 2025-05-13 09:55 | NUR ---
INTO SEE PATIENT. PERSONAL HEALTH INFORMATION OBTAINED. PATIENT LIVES IN A MOBILE HOME. RAMPS INTO THE HOME. WALKER AT BASELINE. PATIENT STILL DRIVES. HAS NEIGHBOR FRIENDS CLOSE BY TO HELP. BROTHER IS HERE WHILE HE IS IN THE HOSPITAL. PATIENT DOES USE A HOME CPAP THROUGH [employer]. PATIENT DENIES ANY DIFFCULTY PAYING UTLITIES OR OBTAINING FOOD. NO CM NEEDS AT THIS TIME.
--- NOTE | 2025-05-13 10:00 | NUR ---
PT NOT AVAILABLE FOR VISIT. PROVIDED PRAYER.
--- NOTE | 2025-05-13 10:05 | NUR ---
DR. PRAJAPATI TO BEDSIDE TO COMPLETE CONSENT FORM WITH PT AND THIS RN. PT VERBALIZES UNDERSTANDING OF PLANS AND PROCEDURES, SIGNS CONSENT INDEPENDENTLY. PT STATES ALL QUESTIONS HAVE BEEN ANSWERED AT THIS TIME. PT BROTHER TO BEDSIDE, DR. PRAJAPATI PROVIDES EDUCATION TO PT AND BROTHER ON POC, BOTH VERBALIZE UNDERSTANDING AND STATE ALL QUESTIONS HAVE BEEN ANSWERED. PT STATES NO FURTHER NEEDS AT THIS TIME. CALL LIGHT WITHIN REACH.
[2025-05-13] MEDS ORDERED: PANTOPRAZOLE SO40 MG PO (11:00)
--- NOTE | 2025-05-13 11:01 | NUR ---
MED REC COMPLETE
--- NOTE | 2025-05-13 11:38 | NUR ---
UR CLINCIAL REVIEW: 2MN BRIGITTE, MEETS OBS FOR HEMATOCHEZIA, SUPRATHERAPEUTIC INR PASSING BLOOD CLOTS IN STOOL, INR 1.81 THEN 1.74 IN ER, HGB 15.7/ HCT 49.1 THEN HGB 13.6/HCT 41.7. THIS AM HGB 10.7/HCT 33.0, IV AND PO VITAMIN K, POTENTIAL NEED FOR COLONOSCOPY WITH CLIP PLACEMENT OR HEMOSTATIC AGENT TODAY, TACHYCARDIC UP TO 119, RESP UP TO 23, BP 90-138/53-95 PENDING LABS MEDICARE OBS 05/12/2025 @ 1919 ORDER MATCHES REG NO AUTH REQUIRED PER MEDICARE RULES PLAN TO DC TO HOME WHEN MEDICALLY READY 05/14/2025
--- NOTE | 2025-05-13 12:18 | NUR ---
VSS. PT EDUCATION ON FFP ADMINISTRATION, VERBALIZES UNDERSTANDING. LUNG SOUNDS REMAIN CLEAR AND DIMINISHED IN ALL LOBES AT THIS TIME. FFP ADMINISTRATION STARTED AT 1219, CHECKED BY THIS RN AND FORTINO CHRISTINE RN. THIS RN AND XIOMARA ROBBINS AT BEDSIDE FOR FIRST 15 MINUTES OF INFUSION.
--- NOTE | 2025-05-13 12:38 | NUR ---
15 MINUTE TRANSFUSION VSS. PT DENIES ANY S/SX OF REATION. PT STATES NO CURRENT NEEDS, CALL LIGHT WITHIN REACH.
--- NOTE | 2025-05-13 12:44 | NUR ---
PT WEANED FROM 2L NC TO RA, OXYGEN SATURATION >92% PER CPOX.
--- NOTE | 2025-05-13 12:57 | NUR ---
VSS. FIRST BAG OF FFP COMPLETE. LUNG SOUNDS UNCHANGED, PT DENIES ANY S/SX OF TRANSFUSION REACTION. SECOND BAG OF FFP RECEIVED FROM LAB AND STARTED. THIS RN AND XIOMARA ROBBINS AT BEDSIDE FOR FIRST 15 MINUTES OF INFUSION.
--- NOTE | 2025-05-13 13:19 | NUR ---
15 MINUTE TRANSFUSION VSS. PT DENIES S/SX OF TRANSFUSION REACTION, LUNG SOUNDS UNCHANGED. PROCESS ARTIST TO BEDSIDE. PT TAKEN OFF UNIT IN BED FOR PROCEDURE.
[2025-05-13] MEDS ORDERED: LIDOCAINE HCL 2% 5 ML SDV ONE (13:51)
[2025-05-13] MEDS ORDERED: PHENYLEPHRINE HCL IN 0.9% NACL 1 MG/10 ML SYR ONE ×2 (14:07→14:24)
[2025-05-13] MEDS ORDERED: ALBUMIN HUMAN 25% 100 ML BTL IV ONE ×2 (14:30)
--- NOTE | 2025-05-13 15:20 | NUR ---
05/13/25 Alivia0 Lety Shelby 1504 PT TO PACU AWAKE REPORTS PAIN IN STOMACH. PT IN AFIB WITH PVC'S. PT ON O2 6L VIA MASK.
[2025-05-13] MEDS ORDERED: fentaNYL citrate 50 MCG/ML SDV ONE (15:32)
[2025-05-13] MEDS ORDERED: fentaNYL citrate 100 MCG/2 ML VIAL IV ONE (15:45)
[2025-05-13] MEDS ORDERED: DEXTROSE 5% 1,000 ML IV PRN ×2 (15:45)
[2025-05-13] MEDS ORDERED: IBLOOD GLUCOSE TEST STRIP 1 EA TEST XX PRN ×2 (15:45)
[2025-05-13] MEDS ORDERED: DEXTROSE 50% 50 ML SYR IV PRN ×4 (15:45)
[2025-05-13] MEDS ORDERED: GLUCAGON,HUMAN RECOMBINANT 1 MG/ML VIAL SUB-Q PRN ×2 (15:45)
--- NOTE | 2025-05-13 16:00 | NUR ---
PT BACK TO MEDSUR ROOM, MOVED TO [facility] BED WITH ASSISTANCE. PT HAS BRIGHT RED DRAINAGE FROM RECTUM PRESENT, SHAN CARE COMPLETED, NEW BREIF IN PLACE. VSS. PT STATES NO CURRENT NEEDS. CALL LIGHT WITHIN REACH, CPOX IN PLACE.
[2025-05-13] MEDS ORDERED: ATORVASTATIN 20 MG TAB PO SCH ×2 (17:00)
[2025-05-13] MEDS ORDERED: ATORVASTATIN 40 MG TAB PO SCH ×2 (17:00)
--- NOTE | 2025-05-13 17:08 | NUR ---
PT RESTING IN BED. PT STATES HE IS "DROWSY", BUT HAS NO REQUESTS AT THIS TIME. POST OP VS TAKEN. CALL LIGHT WITHIN REACH.
[2025-05-13 17:15] LABS: BASOPHILS 0.2 % (0.2-1.2); EOSINOPHILS 0.2 % (0.8-7.0); LYMPHOCYTES 8.1 % (21.8-53.1); MCH 34.1 PG (25.7-32.2); MCHC 32.8 g/dL (32.3-36.5); MCV 104.0 fL (79.0-92.2); MONOCYTES 6.5 % (5.3-12.2); NEUTROPHILS 84.5 % (34.0-67.9); RBC 2.49 M/uL (4.63-6.08)
[2025-05-13 17:25] LABS: INR 1.33 (0.80-1.30); PROTIME 15.6 Sec (11.2-14.2)
--- NOTE | 2025-05-13 17:41 | NUR ---
DR. PRAJAPATI CALLS THIS RN, STATES TO ORDER 2 ADDITIONAL UNITS OF FFP D/T LAB RESULTS. ALSO STATES THAT PT CAN HAVE FULL LIQUID DIET FOR REMAINDER OF DAY, NPO AT MIDNIGHT TO WAIT FOR MORNING LAB RESULTS. ORDERS ENTERED, REPEAT BACK PERFORMED.
--- NOTE | 2025-05-13 19:25 | NUR ---
REPORT RECIEVED FROM XIOMARA ARCHULETA, AND XIOMARA ROBBINS. PATIENT RESTING WITH EYES CLOSED LAYING SUPINE IN BED RESPIRATIONS EVEN AND UNLABORED, IVF INFUSING WITHOUT DIFFICULTY, CPOX ON, 2LNC CONNECTED. NO NEEDS IDENTIFIED AT THIS TIME, CALL LIGHT AND BELONGINGS IN REACH.
[2025-05-13] MEDS ORDERED: IBLOOD GLUCOSE TEST STRIP 1 EA TEST VI SCH ×2 (20:00)
[2025-05-13] MEDS ORDERED: Insulin Regular, Human 100 UNIT/ML ML SUB-Q SCH ×2 (20:00)
--- NOTE | 2025-05-13 20:30 | NUR ---
ASSESSMENT COMPLETED, VS OBTAINED AND RECORDED. 1 OF 2 UNIT FFP STARTED PER ORDER AT THIS TIME, 2ND CHECK WITH TC Forman RN. RESPIRATIONS EVEN AND UNLABORED. PATIENT VERBALIZED UNDERSTANDING, NO NEEDS AT THIS TIME.
--- NOTE | 2025-05-13 20:45 | NUR ---
RN REMAINS AT BEDSIDE, VS OBTAINED AND RECORDED. PATIENT TOLERATING FFP INFUSION WELL. NO NEEDS AT THIS TIME, RESPIRATIONS EVEN AND UNLABORED.
--- NOTE | 2025-05-13 21:10 | NUR ---
RN AT BEDSIDE. PATIENT RESPIRATIONS EVEN AND UNLABORED, TOLERATING FFP WELL, HE DENIES ANY NEEDS. SCHEDULED MEDICATIONS GIVEN TO PATIENT PER ORDER. CALL LIGHT IN REACH
--- NOTE | 2025-05-13 22:15 | NUR ---
1ST UNIT FFP COMPLETED. PATIENT TOLERATED WELL. VS OBTAINED AND RECORDED. RESTING, RESPIRATIONS EVEN AND UNLABORED.
--- NOTE | 2025-05-13 22:25 | NUR ---
MD CONTACTED, GIVEN UPDATE ON PATIENT CONDITION, VS AND PAIN LEVEL. UPDATED REGARDING 8 BEATS OF VTACH AT 2020. NO NEW ORDERS AT THIS TIME. PATIETN RESTING, RESPIRATIONS EVEN AND UNLABORED. CALL LIGHT IN REACH
--- NOTE | 2025-05-13 22:43 | NUR ---
2ND UNIT FFP STARTED PER ORDER. PATIENT RESTING IN BED COMFORTABLY, VERBALIZED NAME AND CORRECTLY. TOLERATED 1ST WELL. VS OBTAINED AND RECORDED. RN AT BEDSIDE.
--- NOTE | 2025-05-13 23:00 | NUR ---
VS OBTAINED AND RECORDED, PATIENT TOLERATING 2 OF 2 UNIT FFP WELL, RESPIRATIONS EVEN AND UNLABORED. RN REMAINS AT BEDSIDE. NO NEEDS, CALL LIGHT IN REACH
--- NOTE | 2025-05-13 23:38 | NUR ---
NEW IVF BAG HUNG PER ORDER, 2 OF 2 FFP UNITS INFUSING WELL. PATIENT TOLERATING WELL. VS OBTAINED AND RECORDED. PATIENT DENIES SOB, RESTING WITH EYES CLOSED, RESPIRATIONS EVEN AND UNLABORED. NO FURTHER NEEDS. CALL LIGHT IN REACH
[2025-05-14] VITALS (12 sets, daily range): BP systolic 134–153; BP diastolic 43–76
--- NOTE | 2025-05-14 00:13 | NUR ---
IN RM TO FINISH pt FFP. pt IV FLUSHED AND ASSESSED, WNL. pt STOOD AT BED SIDE TO USE URINAL. pt MADE NPO AT MIDNIGHT. pt DENIES ANY DIZINESS. pt DENIES ANY OTHER NEEDS AT THIS TIME. CALL LIGHT WITHIN REACH.
--- NOTE | 2025-05-14 01:15 | NUR ---
ARMAND SALAZAR OBTAINED VS AND RECORDED. PATIENT AWAKE AND ALERT, RESPRIATIONS EVEN AND UNLABORED. NO NEEDS IDENTIFIED, CALL LIGHT IN REACH
--- NOTE | 2025-05-14 03:24 | NUR ---
ROUNDED ON PATIENT, RESTING WITH EYES CLOSED, AUDIBLE SNORING, RESPIRATIONS EVEN AND UNLABORED, 1LNC ON, CPOX ON, IVF INFUSING WITHOUT DIFFICULTY. NO NEEDS IDENTIFIED AT THIS TIME. CALL LIGHT IN REACH.
--- NOTE | 2025-05-14 03:51 | NUR ---
PATIENT GIVEN 1 UNIT INSULIN PER ORDER. NO OTHER NEEDS AT THIS TIME. CALL LIGHT IN REACH.
[2025-05-14 05:10] LABS: BASOPHILS 0.1 % (0.2-1.2); EOSINOPHILS 0.4 % (0.8-7.0); LYMPHOCYTES 5.2 % (21.8-53.1); MCH 33.6 PG (25.7-32.2); MCHC 32.5 g/dL (32.3-36.5); MCV 103.4 fL (79.0-92.2); MONOCYTES 6.2 % (5.3-12.2); NEUTROPHILS 87.7 % (34.0-67.9); RBC 2.38 M/uL (4.63-6.08)
[2025-05-14 05:20] LABS: GLOMERULAR FILTRATION RATE,EST 26.0 mL/min (>60); INR 1.18 (0.80-1.30); PROTIME 14.2 Sec (11.2-14.2); UREA NITROGEN 34.0 mg/dL (7-18)
--- NOTE | 2025-05-14 06:19 | NUR ---
PATIENT SITTING AT SIDE OF BED UPON ENTERING ROOM. PT BACK IN BED, VITAL SIGNS TAKEN BY XIOMARA JANE, SCHEDULED MEDICATIONS GIVEN PER ORDERS. ASSESSMENT PERFORMED AND DOCUMENTED. PATIENT C/O 05/21 "GAS PAIN" ALONG WITH "HEARTBURN". IVF INFUSING WITHOUT DIFFICULTY, CPOX IN PLACE, 2LNC ON. PATIENT DENIES ANY NEEDS AT THIS TIME. CALL LIGHT IN REACH.
--- NOTE | 2025-05-14 07:20 | NUR ---
RECEIVED REPORT FROM XIOMARA THAKUR. PATIENT RESTING IN BED, REPORTS NO NEEDS AT THIS TIME. CALL LIGHT IN REACH AND BED LOWERED.
--- NOTE | 2025-05-14 07:40 | NUR ---
VICTORINA BARROSO AT NURSES STATION AND VERBALLY REPORTS SHE WOULD LIKE FOR THIS RN TO PUT IN ORDERDS FOR PHSYSICAL THERAPY, FLEETS ENEMAS 3 TIMES DAILY, AND FOR PT TO BE ON A FULL LIQUID DIET.
--- NOTE | 2025-05-14 08:40 | NUR ---
PHYSICAL THERAPY AT BEDSIDE WORKING WITH PATIENT.
[2025-05-14] MEDS ORDERED: SOD PHOSPHATE/SOD BIPHOSPHATE 132 ML BTL PR SCH ×2 (09:00)
[2025-05-14] MEDS ORDERED: EMPAGLIFLOZIN 25 MG TAB PO SCH ×2 (09:00)
[2025-05-14] MEDS ORDERED: PANTOPRAZOLE SODIUM 40 MG TABEC PO SCH ×4 (09:00)
--- NOTE | 2025-05-14 10:20 | NUR ---
SPOKE WITH DR. PRAJAPATI REGARDING PATIENT STATUS. REMAINS OBS. PORB DR. PRAJAPATI/Oumou MCCALL, RN, TO CHANGE PATIENT TO INPT. ALSO INFORMED HER PT [place] RECOM[place].
--- NOTE | 2025-05-14 10:30 | NUR ---
THIS RIVET MACHINE OPERATOR AND PHYSICAL THERAPY ASSISTED PATIENT TO CHAIR. THIS RIVET MACHINE OPERATOR CHANGED PATIENTS LINENS. THIS RIVET MACHINE OPERATOR AND RIVET MACHINE OPERATOR CARIDAD ASSISTED PATIENT BACK TO BED. CALL LIGHT WITHIN REACH, NO FURTHER NEEDS.
--- NOTE | 2025-05-14 10:31 | NUR ---
FAXED CHART TO [facility]
--- NOTE | 2025-05-14 10:39 | NUR ---
UR CLINICAL REVIEW: 2 MN BRIGITTE, MEETS INPATIENT FOR LOWER GI BLEED DECREASING HGB 8.0/HCT 24.6, CREATININE 2.66, GFR 26, TRENDING LABS, IV FLUIDS, FULL LIQUID DIET FROM OBS TO INPT 05/14/2025 @ 1022 ORDER MATCHES REG NO AUTH REQUIRED PER MEDICARE RULES LIKELY DC TO SNF WHEN MEDICALLY READY DC 05/16/25
--- NOTE | 2025-05-14 10:40 | NUR ---
VISITED DURING SPIRITUAL CARE ROUNDS. PT APPEARED TO BE SLEEPING. DID NOT DISTURB. PROVIDED PRAYER.
--- NOTE | 2025-05-14 11:00 | NUR ---
PT LAYING ON LEFT SIDE, ENEMA GIVEN. PT WANTS TO REMAIN IN THIS POSITION AND RELAX. NO BM AT THIS TIME. ADVISED PT TO LET US KNOW IF/WHEN HE HAS TO GO. CALL LIGHT IN REACH, NO OTHER NEEDS AT THIS TIME.
--- NOTE | 2025-05-14 11:48 | NUR ---
THIS RN CALLS DR. PRAJAPATI TO ASK ABOUT BG CHECKS AND SS INSULIN ORDER, MD STATES TO CHANGE BOTH TO WMHS INSTEAD OF Q6, ORDERS CHANGED, REPEAT BACK PERFORMED.
[2025-05-14] MEDS ORDERED: Insulin Regular, Human 100 UNIT/ML ML SUB-Q SCH ×4 (12:00→21:30)
[2025-05-14] MEDS ORDERED: IBLOOD GLUCOSE TEST STRIP 1 EA TEST VI SCH ×2 (12:00)
--- NOTE | 2025-05-14 12:42 | NUR ---
PT LAYING IN BED, STATES HE HAS NOT HAD A BM YET. PT STATED HE WANTS TO REST. NO NEEDS AT THIS TIME, CALL LIGHT IN REACH, BED LOWERED.
[2025-05-14] MEDS ORDERED: DAPTOmycin 500 MG/10 ML VIAL IV SCH (14:30)
--- NOTE | 2025-05-14 14:37 | NUR ---
PATIENT AMBULATES TO BATHROOM WITH 4WW AND 2PA. PT VOIDED AND HAD A RED BLOODY STOOL. PT UP TO CHAIR STATES NO NEEDS AT THIS TIME. CPOX REMOVED PER 24 POST OP ORDER. CALL LIGHT AND PERSONAL BELONGINGS IN REACH.
--- NOTE | 2025-05-14 15:50 | NUR ---
PTS 2ND ENEMA GIVEN, PT LAYING ON LEFT SIDE, NO BM AT THIS TIME. CALL LIGHT IN REACH, BED LOWERED.
--- NOTE | 2025-05-14 16:20 | NUR ---
DR. PRAJAPATI TO UNIT TO DISCUSS POC. STATES TO ORDER NG TUBE PLACEMENT AND XRAY TO CONFIRM AFTER. PT UPDATED, STATES HE WOULD LIKE TO SHOWER PRIOR TO NG TUBE PLACEMENT. CALL LIGHT WITHIN REACH.
--- NOTE | 2025-05-14 18:30 | NUR ---
PT EDUCATED ON PLACING AN NG TUBE BEFORE PLACING. NG TUBE MEASURED, LUBE PLACED ON TIP, NOSTRILS CHECKED FOR DEVIATED SEPTUM. PT ASKED ABOUT PAST NASAL SURGERIES. LEFT NOSTRIL CHOSEN BASED OFF ASSESSMENT AND PT PREFERENCE. NG TUBE INSERTED IN LEFT NOSTRIL, PT TUCKING CHIN AND SIPPING WATER THROUGHOUT THE PROCEDURE. NG TUBE INSERTED UP UNTIL MEASURED PETER. PT TOLERATED WELL, NO NEEDS AT THIS TIME. NG TUBE SECURED ON NOSE. XRAY ORDERED PER MD ORDER, IMAGING CALLED.
--- NOTE | 2025-05-14 19:45 | NUR ---
REPORT RECEIVED FROM XIOMARA ARCHULETA AND ROSENDO RN. PT LAYING IN BED. RESPIRATORY EVEN AND UNLABORED. NG IN PLACE, AWATING FOR PLACEMENT CONFIRMATION. DENIES NEED AT THE MOMENT. CALL LIGHT IN REACH.
--- NOTE | 2025-05-14 20:36 | NUR ---
Abd XR back, NGT placement at tip of stomah, no drainage in tubing. Advanced about 1 1/2 inch and inmediately started draining green thin drainge 500cc in less than a minute, NGT to LIWS. Dr Meyers notified of above and new orders to make pt NPO x meds and clamp NGT for 1/2 hr after giving meds. Pt encourage to elevated HOB at least to 30o to prevent aspiration "Paulino comfortable" stated.
--- NOTE | 2025-05-14 21:10 | NUR ---
DR. PRAJAPATI CALLED TO MODIFY SOME ORDERS. PT NOW ON NPO, PT CAN TAKE PO MEDICATIONS WITH NG CLAMPED FOR 30 MINS.
--- NOTE | 2025-05-14 21:43 | NUR ---
PT LAYING IN BED. RESPIRATIONS EVEN AND UNLABORED. DUE MEDICATIONS GIVEN ORDERED. NG CLAMPED AFTER TAKING PO MEDICATION PER ORDER. FULL ASSESSMENT DONE. IV INFUSING WELL. DENIES FURTHER NEEDS. CALL LIGHT IN REACH.
--- NOTE | 2025-05-14 22:35 | NUR ---
NURSE AGUAYO IN THE ROOM ASKED ARMAND RIOS TO EMPTY NG DRAINAGE TUBE IN THE BATHROOM. ARMAND RIOS RECORDED PATIENTS VITALS AND I&O'S. PATIENT LEFT WITH CALL LIGHT WITHIN REACH, NO FURTHER NEEDS.
--- NOTE | 2025-05-14 23:10 | NUR ---
PT AMBULATED TO THE BATHROOM 2PA WITH A WALKER TOLERATED WELL. PT HAD BM, BRIGHT RED WATER IN THE TOILET, NO VISIBLE CLOT NOTED. HOOKED NG BACK TO LIS, NG DRESSING REINFORCED, PT REFUSED TO CHANGE IT IT IS NOT COMFORTABLE. DENIES FURTHER NEEDS. PERSONAL BELONGINGS AND CALL LIGHT IN REACH.
[2025-05-15] VITALS (12 sets, daily range): BP systolic 110–149; BP diastolic 70–86
--- NOTE | 2025-05-15 00:12 | NUR ---
PT RESTING IN BED. RESPIRATIONS EVEN AND UNLABORED. NG-LIS INTACT. IV INFUSING WELL. NO APPARENT NEEDS NOTED AT THIS TIME. CALL LIGHT AND PERSONAL BELONGINGS IN REACH.
--- NOTE | 2025-05-15 01:41 | NUR ---
PT LAYING IN BED. RESPIRATIONS EVEN AND UNLABORED. BLOOD GLUCOSE CHECKED, INSULIN GIVEN PER SLIDING SCALE. NG-LIS INTACT. IV INFUSING WELL. DENIES FURTHER NEEDS. CALL LIGHT AND PERSONAL BELONGINGS WITHIN REACH.
[2025-05-15] MEDS ORDERED: IBLOOD GLUCOSE TEST STRIP 1 EA TEST VI SCH ×2 (02:00)
[2025-05-15] MEDS ORDERED: Insulin Regular, Human 100 UNIT/ML ML SUB-Q SCH ×2 (02:00)
--- NOTE | 2025-05-15 02:01 | NUR ---
ARMAND RIOS WENT INTO PATIENTS ROOM AND RECORDED I&O'S ALONG WITH PATIENTS V.S. PATIENT LEFT WITH CALL LIGHT WITHIN REACH, NO FURTHER NEEDS.
--- NOTE | 2025-05-15 03:25 | NUR ---
PT LAYING IN BED. RESPIRATIONS EVEN AND UNLABORED. IV FLUID INFUSING WELL. NG-LIS INTACT. NO APPARENT NEEDS NOTED. CALL LIGHT AND PERSONAL BELONGINGS IN REACH.
--- NOTE | 2025-05-15 04:40 | NUR ---
PT CALLED TO USE THE RESTROOM 2PA 4WW TOLERATED WELL. PT HAD URINATED AND REPORTED PASSING SOMETHING THROUGH HIS RECTUM. THIS RN NOTED YELLOW URINE AND DARK RED SEDIMENTS IN THE TOILET BOWL. PT AMBULATED BACK IN BED, HOOKED BACK TO LIS. DENIES FURTHER NEEDS. CALL LIGHT IN REACH.
[2025-05-15 05:04] LABS: BASOPHILS 0.2 % (0.2-1.2); EOSINOPHILS 2.2 % (0.8-7.0); LYMPHOCYTES 12.3 % (21.8-53.1); MCH 33.8 PG (25.7-32.2); MCHC 32.6 g/dL (32.3-36.5); MCV 103.5 fL (79.0-92.2); MONOCYTES 12.7 % (5.3-12.2); NEUTROPHILS 72.2 % (34.0-67.9); RBC 2.31 M/uL (4.63-6.08)
[2025-05-15 05:13] LABS: INR 1.16 (0.80-1.30); PROTIME 14.0 Sec (11.2-14.2)
[2025-05-15 05:14] LABS: GLOMERULAR FILTRATION RATE,EST 32.0 mL/min (>60); UREA NITROGEN 28.0 mg/dL (7-18)
--- NOTE | 2025-05-15 06:19 | NUR ---
PT LAYING IN BED. RESPIRATIONS EVEN AND UNLABORED. DUE MEDICATIONS GIVEN ORDERED. NG CLAMPED AFTER GIVING THE MEDICATIONS. IV INFUSING WELL. DENIES FURTHER NEEDS. CALL LIGHT IN REACH.
--- NOTE | 2025-05-15 07:24 | NUR ---
PATIENT RESTING IN BED. WHITE BOARD UPDATED. CALL LIGHT WITHIN REACH AND NO FURTHER NEEDS AT THIS TIME.
--- NOTE | 2025-05-15 07:25 | NUR ---
RECEIVED REPORT FROM XIOMARA AGUAYO. PATIENT LAYING IN BED WITH EYES CLOSED, UNLABORED BREATHING. WHITEBOARD UPDATED, CALL LIGHT IN REACH.
--- NOTE | 2025-05-15 08:30 | NUR ---
DR. PRAJAPATI TO NURSES STATION TO DISCUSS PT MEDICATIONS WITH THIS RN. MD STATES TO DC PO PROTONIX ORDER AND TO ORDER 40MG PROTONIX IV DAILY. ORDERS ENTERED, REPEAT BACK PERFORMED.
[2025-05-15] MEDS ORDERED: PANTOPRAZOLE SODIUM 40 MG TABEC PO SCH ×2 (09:00)
[2025-05-15] MEDS ORDERED: PANTOPRAZOLE SODIUM 40 MG/10 ML VIAL IV SCH ×4 (09:00)
--- NOTE | 2025-05-15 09:45 | NUR ---
PT GOT UP TO BATHROOM WITH 4WW AND 2PA, BRIEF, LINEN, AND GOWN CHANGED. PT EDUCATED ON HOW TO USE INCENTIVE SPIROMETER AND DID 5 ROUNDS. PT UP TO CHAIR, NG TUBE CONNECTED TO INTERMITTENT SUCTION, CALL LIGHT IN REACH, NO OTHER NEEDS AT THIS TIME.
--- NOTE | 2025-05-15 09:55 | NUR ---
PATIENT IS SITTING IN CHAIR. VITAL SIGNS AND I&OS WERE DONE. PATIENTS CALL LIGHT IS WITHIN REACH AND NO FURTHER NEEDS AT THIS TIME.
[2025-05-15 10:16] LABS: RETIC, PERCENT 3.82 % (0.51-1.81)
--- NOTE | 2025-05-15 10:20 | NUR ---
PT WALKING AROUND NURSES STATION WITH 4WW AND PHYSICAL THERAPY.
--- NOTE | 2025-05-15 10:49 | NUR ---
PTS ORAL CARE SET UP, PT SITTING UP ON SIDE OF BED DOING ORAL/HYGIENE CARE. PTS OWN HOME HYGIENE SUPPLIES USED. THIS RN FOUND GARLIC PILLS IN PTS BAG. EDUCATED PT ON NOT TAKING HOME MEDS, GARLIC PILLS PLACED IN LOCKBOX. NO OTHER NEEDS AT THIS TIME, CALL LIGHT IN REACH.
--- NOTE | 2025-05-15 11:15 | NUR ---
PT BACK TO BED, TV MUSIC ON, BLINDS CLOSED, PT WANTING TO REST. NG TUBE CONNECTED TO SUCTION, IV FLUIDS CONNECTED TO PT. NO OTHER NEEDS AT THIS TIME. CALL LIGHT IN REACH.
--- NOTE | 2025-05-15 13:29 | NUR ---
PT UP TO BATHROOM W/ 4WW AND 1PA. PT BACK TO BED, NO OTHER NEEDS AT THIS TIME, CALL LIGHT IN REACH.
--- NOTE | 2025-05-15 13:36 | NUR ---
PATIENT WAS ASSISTED BACK TO BED. VITAL SIGNS AND I&OS WERE DONE. PATIENTS CALL LIGHT IS WITHIN REACH AND NO FURTHER NEEDS AT THIS TIME.
--- NOTE | 2025-05-15 19:28 | NUR ---
REPORT RECEIVED FROM DAY SHIFT RN. PT LYING IN BED RESTING WITH EYES CLOSED. RESPIRATIONS EVEN. CALL LIGHT IN REACH. WHITE BOARD UPDATED.
--- NOTE | 2025-05-15 20:31 | NUR ---
EVENING ASSESSMENT COMPLETE. SCHEDULED MEDS ADMIN PER EMAR. NGT FLUSHED AND CLAMPED FOR SURFACE LOGGING SYSTEMS LOGGER. BOWEL TONES HYPOACTIVE. ABD DISTENDED. PT REPORTS FLATUS. NGT PATENT WITH GREEN DRAINAGE. NO C/O PAIN OR NAUSEA. VS AND I&O OBTAINED. PT DENIES QUESTIONS OR CONCERNS. CALL LIGHT IN REACH.
--- NOTE | 2025-05-15 21:16 | NUR ---
In bed, room air, HOB elevated to 27o to comofrt/NGT. NGT back to LIWS draining thick dark green colored drainage. Cooperative, Pleasant
--- NOTE | 2025-05-15 22:12 | NUR ---
PT RESTING IN BED WITH EYES CLOSED. RESPIRATIONS EVEN. CALL LIGHT IN REACH.
--- NOTE | 2025-05-15 23:39 | NUR ---
CALL LIGHT ANSWERED. PT UP TO BR TO VOID WITH PERSONAL WALKER AND SBA. BACK TO BED. NGT BACK TO SUCTION. NO FURTHER NEEDS.
[2025-05-16] VITALS (11 sets, daily range): BP systolic 123–142; BP diastolic 74–86
--- NOTE | 2025-05-16 01:35 | NUR ---
SCHEDULED MEDS ADMIN PER EMAR. PT REPORTS DIFFICULTY SLEEPING DUE TO NEUROPATHY. HOME DOSE OF GABAPENTIN ADMIN PER PT REQUEST. NGT CLAMPED. NO FURTHER NEEDS. CALL LIGHT IN REACH.
--- NOTE | 2025-05-16 02:17 | NUR ---
ARMAND RIOS HELPED TO TAKE PATIENTS V.S. AND I&O'S. WHILE IN THE ROOM, PATIENTS NURSE CAME IN TO CHECK HIS B.S. BUT WAS PULLED OUT OF ROOM TO ANSWER A CALL LIGHT. ARMAND RIOS RECORDED PATIENTS B.S. WELL, CALL LIGHT LEFT WITHIN REACH, NO FURTHER NEEDS.
--- NOTE | 2025-05-16 02:21 | NUR ---
NGT BACK TO LIWS WITH GREEN DRAINAGE.
--- NOTE | 2025-05-16 03:48 | NUR ---
PATIENT RANG THE CALL LIGHT TO NOTIFY NURSES STATION THAT HE NEEDED TO USE THE RESTROOM. ARMAND RIOS ANSWERED THE CALL LIGHT AND HELPED PATIENT AMBULATE TO THE RESTROOM WHERE HE VOIDED URINE. NURSE THEN TOOK HIS WEIGHT AND PATIENT WENT BACK IN BED. CALL LIGHT LEFT WITHIN REACH, NO FURTHER NEEDS.
--- NOTE | 2025-05-16 05:39 | NUR ---
PT RESTING WITH EYES CLOSED. AWAKENS EASILY. VS AND I&O OBTAINED. NGT CLAMPED. SCHEDULED MEDS ADMIN PER EMAR. NO FURTHER NEEDS. CALL LIGHT IN REACH.
[2025-05-16 06:34] LABS: ERYTHROPOIETIN 158 mU/mL (4-27)
--- NOTE | 2025-05-16 07:25 | NUR ---
RECEIVED REPORT FROM XIOMARA PATTERSON. PT UP TO RESTROOM, NO NEEDS STATED. AVIONICS MECHANIC AT BEDSIDE.
--- NOTE | 2025-05-16 08:10 | NUR ---
PT UP TO CHAIR, IMAGING STAFF TO BEDSIDE TO TAKE PT FOR IMAGING. NG TUBE ADHESIVE NOT ON PT NOSE, TUBE OUT APPROXIMATELY 1-2 INCHES FROM MARKED LINE. XIOMARA TERAN CALLED TO BEDSIDE, ADVANCES NG BACK TO MARKED LINE. NG TUBE RESECURED TO NOSE. PT OFF UNIT FOR IMAGING.
--- NOTE | 2025-05-16 08:46 | NUR ---
HOURLY ROUNDING. PATIENT AITTING IN RECLINER CHAIR NURSE IS AT BEDSIDE. NO REQUEST FROMPATIENT AT THIS TIME. CALL LIGHT PLACED WITHIN REACH
--- NOTE | 2025-05-16 08:50 | NUR ---
PT BACK TO ROOM FROM IMAGING, MEDICATIONS GIVEN, NG REMAINS CLAMPED AT THIS TIME. NG SECUREMENT REINFORCED WITH MASTISOL AND TAPE, PT STATES IS COMFORTABLE AT THIS TIME. PT SITTING UP IN CHAIR, STATES PAIN IN ABDOMEN REMAINS AT A 9-10/10 AND IS INTERMITTENT. PT STATES NO CURRENT NEEDS. CALL LIGHT WITHIN REACH.
[2025-05-16] MEDS ORDERED: FOLIC ACID 1 MG/0.2 ML ML IV SCH (09:00)
--- NOTE | 2025-05-16 09:04 | NUR ---
PHYSICAL THERAPY TO BEDSIDE.
--- NOTE | 2025-05-16 09:39 | NUR ---
DR. PRAJAPATI TO BEDSIDE. STATES TO ORDER X3 FLEET ENEMA, ORDER ENTERED, REPEAT BACK PERFORMED.
[2025-05-16] MEDS ORDERED: SOD PHOSPHATE/SOD BIPHOSPHATE 132 ML BTL PR SCH ×2 (09:45)
--- NOTE | 2025-05-16 10:45 | NUR ---
PT BACK TO BED AFTER PHYSICAL THERAPY. PT STATES NO CURRENT NEEDS AND STATES HE WOULD LIKE TO REST AT THIS TIME. PLAN MADE WITH PT TO ADMINISTER FLEET ENEMA AND AMBULATE, PT AGREEABLE TO PLAN. CALL LIGHT WITHIN REACH.
--- NOTE | 2025-05-16 11:12 | NUR ---
HOURLY ROUNDING. PATIENT SLEEP IN BED. NO CPAP MACHINE, NGTUBE PLACED . NO REQUEST FROM PATIENT AT THIS TIME. CALL LIGHT HAS BEEN PLACED WITHIN REACH
--- NOTE | 2025-05-16 11:30 | NUR ---
PT LAYING ON LEFT SIDE FOR FLEET ENEMA ADMINISTRATION, FLEET ENEMA PLACED. PT DENIES ANY URGE TO HAVE BM AFTER 5 MINUTES, BREIF IN PLACE, PT STATES HE WILL CALL WHEN NEEDING TO HAVE BM. PT STATES NO CURRENT NEEDS, CALL LIGHT WITHIN REACH.
--- NOTE | 2025-05-16 12:45 | NUR ---
PT HAS DARK RED LIQUID BM, STATES HE IS FEELING "A LITTLE LESS PRESSURE". PT STATES NO CURRENT NEEDS, CALL LIGHT WITHIN REACH.
--- NOTE | 2025-05-16 12:53 | NUR ---
HOURLY ROUNDING. PATIENT LAYING IN BED, REPORTS FEELING BETTER. CALL LIGHT HAS BEEN PLACED WITHIN REACH
--- NOTE | 2025-05-16 14:25 | NUR ---
PT AMBULATING HALLWAY WITH OIL PROGRAM COMPLIANCE SPECIALIST.
--- NOTE | 2025-05-16 17:40 | NUR ---
PT REPOSITIONED ONTO R SIDE WITH PILLOW SUPPORT. PT APPEARS TO HAVE INCREASED SECRETIONS AND WORK OF BREATHING. RR 24.
[2025-05-16] MEDS ORDERED: GABAPENTIN 100 MG CAP PO SCH (17:41)
--- NOTE | 2025-05-16 19:21 | NUR ---
REPORT RECEIVED FROM DAY SHIFT RN. PT LYING IN BED RESTING WITH EYES CLOSED. RESPIRATIONS EVEN. WHITE BOARD UPDATED. CALL LIGHT IN REACH.
--- NOTE | 2025-05-16 20:21 | NUR ---
EVENING ASSESSMENT COMPLETE. NGT CLAMPED. SCHEDULED MEDS ADMIN PER EMAR. ENEMA DONE PER ORDER. NO C/O PAIN OR NAUSEA. BOWEL TONES ACTIVE. PT REPORTS FLATUS. ABD SOFT. VS AND I&O OBTAINED. PT DENIES FURTHER NEEDS. CALL LIGHT IN REACH.
--- NOTE | 2025-05-16 20:59 | NUR ---
PT UP TO BSC TO PASS SMALL AMOUNT MUCOUS LIKE CLEAR BM. PT INCONTINENT OF SMALL AMOUNT MUCOUS LIKE DARK RED BM IN ATTENDS. STAFF ASSIST WITH SHAN CARE. BACK TO BED. NGT BACK TO LIWS. NO FURTHER NEEDS.
--- NOTE | 2025-05-16 23:20 | NUR ---
PT CALLED TO VOID, ASSISTED TO BR AND BACK TO BED AFTER VOID. NGT RECONNECTED AND CALL LIGHT PLACED IN REACH.
[2025-05-17] VITALS (10 sets, daily range): BP systolic 114–140; BP diastolic 58–99
--- NOTE | 2025-05-17 02:18 | NUR ---
BG AND VS DONE. PT LYING FLAT ON BACK SLEEPPING.
--- NOTE | 2025-05-17 02:19 | NUR ---
IV PUMP ALARMING. NEW BAG IVF INFUSING PER ORDER. BLOOD SUGAR WNL, SSI HELD. PT REPORTS FLATUS. NGT PATENT WITH CLEAR DRAINAGE. NO NEEDS AT THIS TIME. CALL LIGHT IN REACH.
[2025-05-17 05:31] LABS: BASOPHILS 0.2 % (0.2-1.2); EOSINOPHILS 3.6 % (0.8-7.0); LYMPHOCYTES 18.0 % (21.8-53.1); MCH 33.5 PG (25.7-32.2); MCHC 31.3 g/dL (32.3-36.5); MCV 106.9 fL (79.0-92.2); MONOCYTES 10.0 % (5.3-12.2); NEUTROPHILS 67.7 % (34.0-67.9); RBC 2.18 M/uL (4.63-6.08)
[2025-05-17 05:53] LABS: ALT (SGPT) 20.0 U/L (14-59); AST (SGOT) 16.0 U/L (15-37); GLOMERULAR FILTRATION RATE,EST 44.0 mL/min (>60); PROTEIN, TOTAL 5.3 g/dL (6.4-8.2); UREA NITROGEN 23.0 mg/dL (7-18)
--- NOTE | 2025-05-17 06:10 | NUR ---
PT UP TO BR WITH PERSONAL WALKER AND SBA TO VOID AND HAVE LARGE LOOSE BROWN BM. PT INCONTINENT OF LOOSE BROWN BM WELL. PT ABLE TO DO OWN SHAN CARE. DAILY WEIGHT OBTAINED. NGT CLAMPED. MORNING MEDS ADMIN PER EMAR. NO FURTHER NEEDS. CALL LIGHT IN REACH.
--- NOTE | 2025-05-17 07:29 | NUR ---
DC EVAL: CONTINUES TO RECIEVE INPT TREATMENT FOR ILEUS AFTER LOWER GI BLEED REQUIRED REPEAT COLONOSCOPY. IV FLUIDS, NPO. NG TUBE IN PLACE PLAN TO DC TO SNF WHEN MEDICALLY READY. ADD: 05/18/25-05/19/2025
--- NOTE | 2025-05-17 07:29 | NUR ---
PT SLEEPING SOUNDLY AT TIME OF SHIFT REPORT, LEFT UNDISTURBED. CALL LIGHT AND NEEDED ITEMS AT BEDSIDE.
[2025-05-17] MEDS ORDERED: MAGNESIUM SULFATE 2 GM/50 ML BAG IV ONE (08:00)
--- NOTE | 2025-05-17 08:01 | NUR ---
HOURLY ROUNDING. PATIENT SLEEPING IN BED, PATIENT HAS BEEN WOKEN FOR BLOOD SUGAR CHECK. NO REQUEST FROM PATIENT AT THIS TIME
--- NOTE | 2025-05-17 08:07 | NUR ---
PT AWAKENED FOR IMAGING. REPORTS HE FEELS "WEAK" WHEN ASKED HOW HE IS. NG CLAMPED, IV SL'D, PT LEAVES VIA W/C.
--- NOTE | 2025-05-17 08:30 | NUR ---
PT BROTHER IS PRESENT WANTS TO SPEAK WITH DC FLIGHT CONTROL MANAGER ACTING HIS BROTHERS ADVOCATE.
--- NOTE | 2025-05-17 09:42 | NUR ---
PT UP TO THE CHAIR DESCRIBES ABDOMEN "SORE" RATING IT 7/10 DENIES "PAIN" REPORTS SORENESS. BROTHER WAS ABLE TO SPEAK TO DC PUMP MECHANIC AGREE'S ALL QUESTIONS WERE ANSWERED HE LEAVES AT THIS TIME. CALL LIGHT AND NEEDED ITEMS IN REACH
--- NOTE | 2025-05-17 10:45 | NUR ---
PT RETURNS TO REST IN BED AFTER SPENDING TIME UP IN THE CHAIR. ENCOURAGED TO AMBULATE THIS SHIFT PT STATES IT'S HARD BECAUSE HE FEELS TO WEAK. VERBALIZES UNDERSTANDING OF WHY HE NEEDS TO WALK
--- NOTE | 2025-05-17 11:01 | NUR ---
HOURLY ROUNDING. PATIENT COMPLETED ORAL CARE AND AM CARE. NO REQUEST FROM PATIENT AT THIS TIME.
--- NOTE | 2025-05-17 11:12 | NUR ---
UPDATES SENT TO [facility], CHART SENT TO [facility] AT THE [facility] AND [facility].
--- NOTE | 2025-05-17 11:13 | NUR ---
SPOKE WITH PATIENT AND BROTHER ABOUT PENDING PLACEMENT. AGREEABLE FOR CHART TO BE SENT EVERYWHERE EXCEPT FOR [facility]. PATIENT CAN PAY FOR TRANSPORTATION WHEN THE TIME COMES. PATIENT BROTHER EXPRESSED NEEDS FOR PAID CAREGIVERS. GAVE HIM PHAMPLETS FOR [employer]. HE ALSO SPOKE ABOUT BROTHER FEELING DEPRESSED. TALKED WITH THEM ABOUT SETTING UP OUTPATIENT COUNSELING WITH [facility]. AGREEABLE.
--- NOTE | 2025-05-17 11:23 | NUR ---
PATIENT SCHEDULED TO RECIEVE OUTPATIENT COUNSELING THROUGH [facility] July AT 1:00 PM.
--- NOTE | 2025-05-17 12:08 | NUR ---
PT WORKS WITH P/T COOPERATIVE AND PUTS FORTH EFFORT BUT CONTINUES TO FEEL WEAK. RESTING IN BED NOW.
[2025-05-17 12:43] LABS: BASOPHILS 0.3 % (0.2-1.2); EOSINOPHILS 3.5 % (0.8-7.0); LYMPHOCYTES 14.0 % (21.8-53.1); MCH 34.1 PG (25.7-32.2); MCHC 32.1 g/dL (32.3-36.5); MCV 106.4 fL (79.0-92.2); MONOCYTES 9.3 % (5.3-12.2); NEUTROPHILS 72.2 % (34.0-67.9); RBC 2.20 M/uL (4.63-6.08)
--- NOTE | 2025-05-17 13:21 | NUR ---
HOURLY ROUNDING. PATIENT COMPLETED VITALS AND NEEDED TO USE THE RESTROOM./ NO REQUEST FROM PATIENT, HE APPEARS WEAK, NEEDS ALOT OF ASSISTANCE WITH JUST GETTING OUT OF THE BED. NO FURTHER REQUEST FROM PATIENT AT THIS TIME
--- NOTE | 2025-05-17 13:30 | NUR ---
PT RESTING IN BED AGREES HE IS COMFORTABLE DENIES NEEDS
--- NOTE | 2025-05-17 13:48 | NUR ---
In with pt in response to call light to hook pt back up to his fluids. IV flushed, no c/o pain, no redness, swelling noted, no leaking. NGT reconnected to wall suction. Dr. Benjamin in room. Verbal order received from Dr. Benjamin to order a 12-lead ECG for possible aflutter. Primary RN will be notified after she returns from her break.
--- NOTE | 2025-05-17 14:21 | NUR ---
PT RESTING EYES CLOSED RESPONDS TO VOICE. MEDS GIVEN ORDERED EKG COMPLETE PT DENIES NEEDS AT THIS TIME
--- NOTE | 2025-05-17 15:25 | NUR ---
PT TO C/T VIA W/C. DR GARY TO THE FLOOR REVIEWING MEDS AND DISCUSSING PLAN GOING FORWARD
--- NOTE | 2025-05-17 15:42 | NUR ---
O/T IN WORKING WITH PT AT THIS TIME
--- NOTE | 2025-05-17 16:14 | NUR ---
HOURLY ROUNDING. NURSE IS HOOKING PATIENT BACK UP TO IV, NO REQUEST FROMPATIENT AT THIS TIME. CALL LIGHT HAS BEEN PLACED WITHIN REACH
--- NOTE | 2025-05-17 16:22 | NUR ---
PT BACK FROM SCAN, NG TO LIS IV INFUSING. PT SITTING IN THE CHAIR DENIES NEEDS CALL LIGHT IN REACH
[2025-05-17] MEDS ORDERED: ATROPINE SULFATE 1 MG/ML VIAL INJ PRN (17:15)
--- NOTE | 2025-05-17 17:25 | NUR ---
PT BROUGHT OVER FROM MED SURG PER DR GARY FOR NEOSTIGMINE INFUSION FOR BOWEL DISTENSION. REPORT RECEIVED FROM ZOHAIB SOLANO. PT IS ALERT AND AWAKE AND AWARE OF THE PLAN. 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
[2025-05-17] MEDS ORDERED: NEOSTIGMINE METHYLSULFATE XX ONE (18:00)
[2025-05-17] MEDS ORDERED: SODIUM CHLORIDE 0.9% XX ONE (18:00)
--- NOTE | 2025-05-17 18:30 | NUR ---
PT HAS HAD A MODERATE SIZED LIQUID BROWN STOOL AND QUITE A LOT OF GAS. PT DOES STATE THAT HE FEELS LESS DISTENDED AND IS MORE COMFORTABLE.
--- NOTE | 2025-05-17 19:00 | NUR ---
PT RESTING, CALL LIGHT IN HAND, HR MOSTLY 60'S AFIB/FLUTTER. SPO2 88% ON ROOM AIR, WILL PUT O2 ON PT.
--- NOTE | 2025-05-17 19:00 | NUR ---
VITAL SIGNS WERE MONITORED BY THIS RN FROM TIME OF TRANSFER TO NOW, BP'S REMAINED WNL. HR 30-70'S WITH MD AT BEDSIDE DURING INFUSION.
[2025-05-17] MEDS ORDERED: METOCLOPRAMIDE HCL 10 MG/2 ML SDV IV SCH (20:00)
--- NOTE | 2025-05-17 21:42 | NUR ---
Pt transferred from CCU 129 to MS 114, RN handoff at bedside, report given to Belia.
--- NOTE | 2025-05-17 22:27 | NUR ---
REPORT RECEIVED FROM CCU RN AT APPROX 8561. PT TRANSFERRED TO ROOM 114 VIA BED WITH ALL PERSONAL BELONGINGS. WALLET PLACED IN ROOM LOCK BOX PER PT REQUEST. VS OBTAINED. TELE IN PLACE. 2PA TO BSC FOR SMALL LIQUID BROWN BM. LINENS CHANGED. STAFF ASSIST WITH SHAN CARE. BACK TO BED, MECHELLE WELL. NGT TO LIWS WITH GREEN DRAINAGE. NGT FLUSHED WITH 50 ML TAP WATER. ABD SOFT. BOWEL TONES ACTIVE. PT REPORTS FLATUS. CPOX PLACED FOR MONITORING. PT DENIES FURTHER NEEDS. CALL LIGHT IN REACH.
--- NOTE | 2025-05-17 22:43 | NUR ---
CPOX ALARMING. SpO2 87% ON RA. 2L/NC PLACED. SpO2 QUICKLY UP TO 94%. HOB ELEVATED.
[2025-05-18] VITALS (10 sets, daily range): BP systolic 104–145; BP diastolic 46–87
--- NOTE | 2025-05-18 00:51 | NUR ---
IV PUMP ALARMING. ISSUE RESOLVED. PT REPORTS HE IS RESTING WELL AT THIS TIME. DENIES NEEDS.
--- NOTE | 2025-05-18 02:16 | NUR ---
VS OBTAINED. BLOOD SUGAR WNL. SSI HELD. 1PA TO BR WITH PERSONAL WALKER TO VOID. GAIT STEADY. BACK TO BED, MECHELLE WELL. SCHEDULED MEDS ADMIN PER EMAR. NO FURTHER NEEDS. CALL LIGHT IN REACH.
--- NOTE | 2025-05-18 03:30 | NUR ---
PT RESTING IN BED WITH EYES CLOSED. RESPIRATIONS EVEN. CALL LIGHT IN REACH.
[2025-05-18 05:42] LABS: BASOPHILS 0.3 % (0.2-1.2); EOSINOPHILS 3.3 % (0.8-7.0); LYMPHOCYTES 17.0 % (21.8-53.1); MCH 33.8 PG (25.7-32.2); MCHC 31.6 g/dL (32.3-36.5); MCV 107.0 fL (79.0-92.2); MONOCYTES 7.3 % (5.3-12.2); NEUTROPHILS 71.2 % (34.0-67.9); RBC 2.13 M/uL (4.63-6.08)
[2025-05-18 05:54] LABS: GLOMERULAR FILTRATION RATE,EST 45.0 mL/min (>60); UREA NITROGEN 18.0 mg/dL (7-18)
--- NOTE | 2025-05-18 06:08 | NUR ---
PT RESTING WITH EYES CLOSED. AWAKENS EASILY. VS AND I&O OBTAINED. NGT CLAMPED. SCHEDULED MEDS ADMIN PER EMAR. PT DENIES NEEDS. CALL LIGHT IN REACH.
--- NOTE | 2025-05-18 06:48 | NUR ---
PT UP TO SIDE OF BED FOR DAILY WEIGHT. BACK TO BED, MECHELLE WELL. NGT BACK TO LIWS. NO FURTHER NEEDS.
--- NOTE | 2025-05-18 07:21 | NUR ---
PT SLEEPING SOUNDLY AT TIME OF SHIFT REPORT, LEFT UNDISTURBED. SATS 99% ON 1 L02, DC'D. CPOX IN PLACE. CALL LIGHT IN REACH.
--- NOTE | 2025-05-18 07:24 | NUR ---
02 REPLACED AT 1LPM SATS WERE DIPPING TO MID 80'S
[2025-05-18] MEDS ORDERED: MAGNESIUM CHLORIDE 64 MG TABCR PO ONE (08:15)
[2025-05-18] MEDS ORDERED: POTASSIUM CHLORIDE 10 MEQ TABCR PO ONE (08:15)
--- NOTE | 2025-05-18 08:34 | NUR ---
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 NG HAS BEEN PULLED. REQUESTS STAFF TO CHECK ON ABILITY TO GET ELOQUIS AFFORDABLY. DR GARY NOTIFIED THIS PT LIKELY NEEDS REHAB UNABLE TO AMBULATE SAFELY REQUEST DIET ADVANCE.
[2025-05-18] MEDS ORDERED: MULTIVITAMINS THERAPEUTIC 1 EA TAB PO SCH (09:00)
[2025-05-18] MEDS ORDERED: APIXABAN 5 MG TAB PO SCH (09:00)
--- NOTE | 2025-05-18 09:15 | NUR ---
MET WITH R/T IN PT ROOM HE IS USING I/S APPROPRIATELY WITH INSTRUCTION. RETURNED TO ROOM AIR SATS REMAIN IN THE MID 90'S RESP EDUCATION PROVIDED AT LENGTH PT VERBALIZES UNDERSTANDING.
--- NOTE | 2025-05-18 09:43 | NUR ---
PT TO THE SHOWER WITH ASSIST
--- NOTE | 2025-05-18 10:30 | NUR ---
Spoke with Aaron. Updated he has been accepted by [facility] and he cont. to want to go for physical rehab. He request to a have a private room. I called Ebony at [facility] and updated and she does have a single room open with a shared bathroom. Aaron is agreeable to this. They have a bed open today or tomorrow. I let Ebony know I will need to discuss with Dr. Benjamin and Dr. Izaguirre. Spoke with Dr. Izaguirre, he prefers pt to dc tomorrow. I left a message with for Dr. Benjamin. Ebony updated. Plan for pt to dc tomorrow at [address] pm[address] Friend will drive him. Dr. Benjamin called and ok for pt to dc tomorrow.
--- NOTE | 2025-05-18 10:49 | NUR ---
SPOKE WITH DR. GARY REGARDING POTENTIAL DC TO [facility] TOMORROW. HE IS OK WITH PATIENT DISCHARGING TOMORROW AND STATES THE PATIENT NEEDS TO CONFIRM F/U WITH CARDIOLOGY NEXT SATURDAY AT [address] CRUZ. HE ALSO WOULD LIKE ASSISTANCE FROM DR. MUSA TO COMPLETE SNF ORDERS. DR. MUSA NOTIFIED.
--- NOTE | 2025-05-18 11:00 | NUR ---
SHOWER WELL TOLERATED SATS MAINTAINED MID 90'S DURING ACTIVITY PT AGREES HE FEELS BETTER. SITTING UP ON EDGE OF THE BED DENIES NEEDS. HAS TOLERATED PUDDING APPLESAUCE FLUIDS AND JELLO WITH NO ILL EFFECTS
--- NOTE | 2025-05-18 11:19 | NUR ---
VISITED DURING SPIRITUAL CARE ROUNDS. PT APPEARED TO BE SLEEPING. DID NOT DISTURB. PROVIDED PRAYER.
--- NOTE | 2025-05-18 11:52 | NUR ---
PT SITTING UP ON THE EDGE OF THE BED WITH NOON MEAL, REGULAR DIET. AGREES IT LOOKS GOOD AND HE IS FEELING WELL. PT EATING ENTHUSIASTICALLY
[2025-05-18] MEDS ORDERED: IBLOOD GLUCOSE TEST STRIP 1 EA TEST VI SCH (12:00)
[2025-05-18] MEDS ORDERED: INSULIN LISPRO 100 UNIT/ML ML SUB-Q SCH (12:00)
--- NOTE | 2025-05-18 12:57 | NUR ---
PT TOLERATES NOON MEAL WELL DENIES PAIN OR ABDOMINAL UPSET. PT HAS BEEN UP TO TOILET AND TO THE CHAIR THIS SHIFT HAD A SHOWER WELL. AGREES HE FEELS MUCH BETTER THAN HE DID 2 DAYS AGO. DENIES CONCERNS R/T POSSIBLE DC TOMORROW
--- NOTE | 2025-05-18 12:58 | NUR ---
HOURLY ROUNDING. PATIENT JUST FINISHING UP WITH PT. NO REQUEST FROM PATIENT AT THIS TIME. IS AT BEDSIDE
--- NOTE | 2025-05-18 13:43 | NUR ---
PT WORKING WITH P/T AMBULATING THE HICKS AT THIS TIME
--- NOTE | 2025-05-18 14:55 | NUR ---
PT AGREES P/T WELL TOLERATED. SATS HAVE REMAINED MID TO UPPER 90'S AT EACH SPOT CHECK THIS SHIFT. PT AGREES EATING IS GOING WELL STATES HE WANTS MORE. VEGITARIAN MENU PROVIDED FOR EVENING MEAL CHOICES. PT DENIES NEEDS AT THIS TIME
--- NOTE | 2025-05-18 15:11 | NUR ---
Orders printed and given to Dr. Izaguirre for SNF.
[2025-05-18] MEDS ORDERED: FERROUS SULFATE 325 MG TAB PO SCH (17:00)
--- NOTE | 2025-05-18 17:46 | NUR ---
PT INCONT OF LOOSE STOOL UP TO TOILET DENIES PAIN OR NEED OF. ASSIST WITH SHAN CARE RETURNS TO RESTING IN BED
--- NOTE | 2025-05-18 18:13 | NUR ---
HOURLY ROUNDING. PATIENT LAYING IN BED, NO REQUEST THIS TIME. CALL LIGHT HAS BEEN PLACED WITHIN REACH
--- NOTE | 2025-05-18 19:25 | NUR ---
REPORT RECEIVED FROM DAY SHIFT RN. PT LYING IN BED ALERT AND ORIENTED. DENIES NEEDS. WHITE BOARD UPDATED. CALL LIGHT IN REACH.
--- NOTE | 2025-05-18 21:28 | NUR ---
CALL LIGHT ANSWERED. PT UP TO BR TO VOID AND HAVE LARGE LIQUID BM. NO BLOOD NOTED. BACK TO BED, MECHELLE WELL. EVENING ASSESSMENT COMPLETE. SCHEDULED MEDS ADMIN PER EMAR. PT DENIES PAIN OR NAUSEA. BOWEL TONES ACTIVE. ABD SOFT. TELE #[address] HR LOW 100'S. PT DENIES QUESTIONS OR CONCERNS. CALL LIGHT IN REACH.
--- NOTE | 2025-05-18 21:39 | EKG ---
[facility] [address] [place] [address] Signed Atrial flutter with variable AV block with premature ventricular or aberrantly conducted complexes Left axis deviation Nonspecific intraventricular block Possible Lateral infarct (cited on or before 19-DEC-2019) Inferior infarct (cited on or before 19-DEC-2019) T wave abnormality, consider anterior ischemia Abnormal ECG When compared with ECG of 05-MAR-2025 03:17, Significant changes have occurred Confirmed by Humberto Musa MD () on 05/18/2025 9:38:53 PM Electronically Signed By: HUMBERTO MUSA MD 05/18/25 2139 PATIENT NAME: LILY VALENTIN Electrocardiogram DATE OF : 62 PHYSICIAN: HUMBERTO MUSA MD REPORT #: [id number] REPORT IS CONFIDENTIAL AND NOT TO BE RELEASED WITHOUT AUTHORIZATION
[2025-05-19] VITALS (7 sets, daily range): BP systolic 118–153; BP diastolic 53–76
--- NOTE | 2025-05-19 00:13 | NUR ---
PT RESTING IN BED WITH EYES CLOSED. RESPIRATIONS EVEN. CALL LIGHT IN REACH.
--- NOTE | 2025-05-19 02:09 | NUR ---
CALL LIGHT ANSWERED. PT UP TO BR WITH MINIMAL SBA AND PERSONAL WALKER TO VOID AND HAVE SMALL LIQUID BM. NO BLOOD NOTED. PT ABLE TO DO OWN SHAN CARE. GAIT STEADY. BACK TO BED, MECHELLE WELL. VS OBTAINED. HOME CPAP IN USE. NO FURTHER NEEDS. CALL LIGHT IN REACH.
--- NOTE | 2025-05-19 06:26 | NUR ---
PT SITTING ON SIDE OF BED. REPORTS "FEELING GOOD." VS AND I&O OBTAINED. DAILY WEIGHT OBTAINED. SCHEDULED MEDS ADMIN PER EMAR. NO FURTHER NEEDS. CALL LIGHT IN REACH.
--- NOTE | 2025-05-19 07:30 | NUR ---
RECEIVED REPORT FROM XIOMARA PATTERSON. PATIENT LAYING IN BED ON CPAP, EYES CLOSED, UNLABORED BREATHING. NO NEEDS AT THIS TIME, CALL LIGHT IN REACH, WHITEBOARD UPDATED.
--- NOTE | 2025-05-19 07:48 | NUR ---
PATIENT IN BED AT THIS TIME. BREAKER UP MACHINE OPERATOR CHARTED HOURLY ROUNDS AND BLOOD SUGAR. PATIENT DECLINED CHIAR. CALL LIGHT WITHIN REACH, NO FURTHER NEEDS.
[2025-05-19] MEDS ORDERED: FOLIC ACID 1 MG TAB PO SCH (08:00)
[2025-05-19 08:15] LABS: BASOPHILS 0.2 % (0.2-1.2); EOSINOPHILS 3.1 % (0.8-7.0); LYMPHOCYTES 21.1 % (21.8-53.1); MCH 33.8 PG (25.7-32.2); MCHC 31.5 g/dL (32.3-36.5); MCV 107.2 fL (79.0-92.2); MONOCYTES 7.2 % (5.3-12.2); NEUTROPHILS 67.2 % (34.0-67.9); RBC 2.07 M/uL (4.63-6.08)
[2025-05-19 08:25] LABS: GLOMERULAR FILTRATION RATE,EST 44.0 mL/min (>60); UREA NITROGEN 19.0 mg/dL (7-18)
[2025-05-19] MEDS ORDERED: PANTOPRAZOLE SODIUM 40 MG TABEC PO SCH (09:00)
--- NOTE | 2025-05-19 09:30 | NUR ---
PATIENT IN BED AT THIS TIME. PREPRESS STRIPPER CHARTED VITALS AND I&O'S. CALL LIGHT WITHIN REACH, NO FURTHER NEEDS.
--- NOTE | 2025-05-19 10:20 | NUR ---
Spoke with Aaron. He denies needs. Friend will arrive to transport pt. Aaron is concerned as he feels he cannot pay for his Eliquis. I attempted to obtain forms for discount medication, but their site continues to freeze when I attempt to enter pts info. Pt cannot complete as he has a flip phone. I called and spoke with a rep, but they felt he would not qualify as he has Medicare. Zahira also is researching how to help Aaron with payment. Pharmacy also made suggestions.
--- NOTE | 2025-05-19 12:45 | NUR ---
I called Ebony at [facility] and updated pt will leave at 1 pm. We are attempting to sign him up for a reduced cost. She let me know, she does this monthly for her mom. She will assist him to sign up when he gets there. The SNF will cover the cost while he is with them. Dr Izaguirre updated and orders completed. Orders faxed to Ebony.
--- NOTE | 2025-05-19 13:30 | NUR ---
Friend arrived to transport Aaron to [facility].
--- NOTE | 2025-05-19 13:45 | NUR ---
PATIENT HELPED WITH BAGGING ALL PERSONAL BELONGINGS, BELONGINGS FROM LOCKBOX IN PATIENTS BAGS TO TAKE HOME. PT DRESSING ON OWN CLOTHES, IV REMOVED CATH TIP INTACT. VSS. PT LEAVING WITH ALL BALONGINGS AND DC PACKET FOR FOLLOWING FACILITY IN HAND. PT WALKED TO FRONT OF BUILDING BY NURSING PERSONEL AND HIS RIDE.
[2025-05-22] MEDS ORDERED: ELIQUIS5 MG PO (10:34)
== END 2025-05-19 13:45 | DRG 813 ==
LOC: ED 15:27 → MS 15:29 → CCU 05-17 17:34 → MS 05-17 21:35
PROVIDERS: Emergency Medicine; Family Medicine; Internal Medicine; ADMIT Surgery; ATTEND Surgery
PROC: 30233J1 Transfusion of Nonautologous Serum Albumin into Peripheral Vein, Percutaneous Approach (ICD-10-PCS; 2025-05-13)
PROC: 0DJ08ZZ Inspection of Upper Intestinal Tract, Via Natural or Artificial Opening Endoscopic (ICD-10-PCS; 2025-05-13)
PROC: 0DCE8ZZ Extirpation of Matter from Large Intestine, Via Natural or Artificial Opening Endoscopic (ICD-10-PCS; 2025-05-13)
PROC: 30233K1 Transfusion of Nonautologous Frozen Plasma into Peripheral Vein, Percutaneous Approach (ICD-10-PCS; principal; 2025-05-13 13:00)
PROC: 0D9670Z Drainage of Stomach with Drainage Device, Via Natural or Artificial Opening (ICD-10-PCS; 2025-05-14)
PROC: 5A09357 Assistance with Respiratory Ventilation, Less than 24 Consecutive Hours, Continuous Positive Airway Pressure (ICD-10-PCS; 2025-05-14)
DX: D68.32 Hemorrhagic disorder due to extrinsic circulating anticoagulants (principal); K91.840 Postprocedural hemorrhage of a digestive system organ or structure following a digestive system procedure; I13.0 Hypertensive heart and chronic kidney disease with heart failure and stage 1 through stage 4 chronic kidney disease, or unspecified chronic kidney disease; I50.32 Chronic diastolic (congestive) heart failure; K56.699 Other intestinal obstruction unspecified as to partial versus complete obstruction; Z68.41 Body mass index [BMI] 40.0-44.9, adult; I48.20 Chronic atrial fibrillation, unspecified; I48.92 Unspecified atrial flutter; T45.515A Adverse effect of anticoagulants, initial encounter; Y83.8 Other surgical procedures as the cause of abnormal reaction of the patient, or of later complication, without mention of misadventure at the time of the procedure; M17.11 Unilateral primary osteoarthritis, right knee; E66.9 Obesity, unspecified; N18.9 Chronic kidney disease, unspecified; E11.22 Type 2 diabetes mellitus with diabetic chronic kidney disease; I25.10 Atherosclerotic heart disease of native coronary artery without angina pectoris; E78.00 Pure hypercholesterolemia, unspecified; D75.89 Other specified diseases of blood and blood-forming organs; I27.81 Cor pulmonale (chronic); K29.70 Gastritis, unspecified, without bleeding; G47.30 Sleep apnea, unspecified; D63.1 Anemia in chronic kidney disease; E03.9 Hypothyroidism, unspecified; E83.42 Hypomagnesemia; Z85.038 Personal history of other malignant neoplasm of large intestine; Z90.49 Acquired absence of other specified parts of digestive tract; Z87.891 Personal history of nicotine dependence; Z79.890 Hormone replacement therapy; Z79.01 Long term (current) use of anticoagulants; Z79.84 Long term (current) use of oral hypoglycemic drugs
CPT/HCPCS: 00813; 36415; 51798; 71045; 74018; 74176; 74177; 80048; 80053; 82668; 83735; 85025; 85045; 85610; 86850; 86900; 86901; 94762; 94799; 96361; 96365; 96375; 96376; 97110; 97116; 97162; 97166; 97530; 97535; 99285-25; A9270; G0378; J0165; J1815; J2003; J2405; J2470; J2704; J2710; J2765; J3010; J3430; J3475; J3480; J7030; J7120; P9047; P9059; Q9967